=== PATIENT | female | born 1960 | race Caucasian/White ===

== ENCOUNTER 2018-08-10 10:27 | Emergency (ER) | payer MEDICAID, OTHER ==
[~2018-08-10] VITALS: Ht 162.6 cm; Wt 43.2 kg
[2018-08-10 10:29] VITALS: Ht 162.6 cm; Wt 43.2 kg
[2018-08-10] MEDS ORDERED: AMLO5TAB4 PO (11:28)
[2018-08-10] MEDS ORDERED: LEVO75TA65 PO (11:28)
[2018-08-10] MEDS ORDERED: PANT40TA3 PO (11:29)
[2018-08-10] MEDS ORDERED: NEPH PO (11:29)
[2018-08-10] MEDS ORDERED: AMIO200T4 PO (11:29)
[2018-08-10] MEDS ORDERED: FOLI-49 PO (11:30)
[2018-08-10] MEDS ORDERED: RANI150T5 PO (11:30)
[2018-08-10] MEDS ORDERED: AZIT250T13 PO (11:31)
--- NOTE | 2018-08-10 13:13 | ERD ---
ER Documentation Chief Complaint Chief Complaint SENT BY URGENT CARE FOR LOW BP. BP WNL. NEEDS REPEAT CT ABD HPI Patient is a 58-year-old female with dialysis who presents for a repeat CT scan. The patient was brought in by ambulance. The patient went to an urgent care today and she had a abnormal CT scan in April 2018. Therefore she was sent to the ER for repeat CT scan to ensure resolution. She has no complaints other than feeling tired diffusely. She has no fevers. She did have dialysis yesterday. Upon review of old medical records this is the patient's first visit to the emergency department. She said her primary doctor is Dr. Moss. ROS All systems reviewed and are negative except as per history of present illness. Medications Home Meds Reported Medications Azithromycin* (Azithromycin*) 250 Mg Tablet, 250 MG PO DAILY, #4 TAB STARTED 08-08-18 FOR 5 DAYS 08/10/18 Ranitidine Hcl* (Ranitidine Hcl*) 150 Mg Tablet, 150 MG PO HS, #30 TAB 08/10/18 Folic Acid* (Folic Acid*) 1 Mg Tablet, 1 MG PO DAILY, TAB 08/10/18 Amiodarone Hcl* (Amiodarone Hcl*) 200 Mg Tablet, 200 MG PO BID, #60 TAB 08/10/18 Pantoprazole* (Protonix*) 40 Mg Tablet.dr, 40 MG PO DAILY, TAB 08/10/18 Multivit/Ca Carb/B Cmplx/Fa* (Iram-Xiomara*) 1 Tab Tab, 1 TAB PO DAILY, TAB 08/10/18 Amlodipine Besylate* (Norvasc*) 5 Mg Tablet, 5 MG PO DAILY, TAB 08/10/18 Levothyroxine Sodium* (Levoxyl*) 75 Mcg Tablet, 75 MCG PO BEFORE BREAKFAST, #30 TAB 08/10/18 Allergies Allergies: Coded Allergies: Penicillins (Verified Allergy, Unknown, 08/10/18) tazobactam (Verified Allergy, Unknown, 08/10/18) vancomycin (Verified Allergy, Unknown, 08/10/18) PMhx/Soc Positive for dialysis FmHx Family History: diabetes Physical Exam Vitals Vital Signs Date Temp Pulse Resp B/P (MAP) Pulse Ox O2 O2 Flow FiO2 Time Delivery Rate 08/10/18 97.1 91 16 99/58 (72) 97 10:29 Physical Exam Const: No acute distress Head: Atraumatic Eyes: Normal Conjunctiva ENT: Normal External Ears, Nose and Mouth. Neck: Full range of motion. No meningismus. Resp: Clear to auscultation bilaterally Cardio: Regular rate and rhythm, no murmurs Abd: Soft, non tender, non distended. Normal bowel sounds Skin: No petechiae or rashes Back: No midline or flank tenderness Ext: No cyanosis, or edema Neur: Awake and alert Psych: Normal Mood and Affect Result Diagram: 08/10/18 1120 08/10/18 1120 Results 24 hrs Laboratory Tests Test 08/10/18 11:20 White Blood Count 4.4 10^3/ul Red Blood Count 3.18 10^6/ul Hemoglobin 11.2 g/dl Hematocrit 34.9 % Mean Corpuscular Volume 109.7 fl Mean Corpuscular Hemoglobin 35.2 pg Mean Corpuscular Hemoglobin Concent 32.1 g/dl Red Cell Distribution Width 18.3 % Platelet Count 66 10^3/UL Mean Platelet Volume 12.7 fl Immature Granulocytes % 0.200 % Neutrophils % 69.2 % Lymphocytes % 22.7 % Monocytes % 4.3 % Eosinophils % 2.0 % Basophils % 1.6 % Nucleated Red Blood Cells % 0.0 /100WBC Immature Granulocytes # 0.010 10^3/ul Neutrophils # 3.1 10^3/ul Lymphocytes # 1.0 10^3/ul Monocytes # 0.2 10^3/ul Eosinophils # 0.1 10^3/ul Basophils # 0.1 10^3/ul Nucleated Red Blood Cells # 0.0 10^3/ul Sodium Level 139 mmol/L Potassium Level 4.7 mmol/L Chloride Level 101 mmol/L Carbon Dioxide Level 26 mmol/L Anion Gap 12 Blood Urea Nitrogen 21 mg/dl Creatinine 3.53 mg/dl Est Glomerular Filtrat Rate mL/min 13 mL/min Glucose Level 98 mg/dl Calcium Level 9.8 mg/dl Total Bilirubin 1.0 mg/dl Direct Bilirubin 0.00 mg/dl Indirect Bilirubin 1.0 mg/dl Aspartate Amino Transf (AST/SGOT) 14 IU/L Alanine Aminotransferase (ALT/SGPT) 11 IU/L Alkaline Phosphatase 100 IU/L Total Protein 6.5 g/dl Albumin 3.3 g/dl Globulin 3.20 g/dl Albumin/Globulin Ratio 1.03 Lipase 37 U/L [facility] EKG read by me: Rate/Rhythm: Regular rate and rhythm at a normal rate Intervals: Normal Impression: No evidence of ischemia or arrhythmia Patient is a 58-year-old female who presents with diffuse weakness and the need for a repeat CT scan. Laboratory studies were consistent with somebody on dialysis. Her potassium is normal. CT scan of the chest and abdomen showed resolution of the CT chest finding from April 2018. CT abdomen pelvis shows ascites and chronic changes which have been seen before. The patient was provided with copies of laboratory studies and CT scan prior to discharge. Departure Diagnosis: Primary Impression: Anemia Anemia type: unspecified type Qualified Codes: D64.9 - Anemia, unspecified Additional Impression: Chronic renal failure Chronic kidney disease stage: unspecified stage Qualified Codes: N18.9 - Chronic kidney disease, unspecified Condition: Fair Patient Instructions: Anemia, Renal Insufficiency Additional Instructions: Llame al doctor nomtrini moreland (Referral Sources) MAANA y meño maribeth YUMIKO PARA DENTRO DE MARIBETH SEMANA. Dgale a la secretaria que nosotros le instruimos hacer esta yumiko.Avise o llame si harper condicin se empeora antes de la yumiko. MELYSSA SWAN MD Aug 10, 2018 13:13
[2018-08-10 13:45] VITALS: BP 110/80; PULSE 96; RESP 20
== END 2018-08-10 13:58 | disposition home or self-care (01) ==
LOC: E/R 10:27
DX: D64.9 Anemia, unspecified (principal); R40.2142 Coma scale, eyes open, spontaneous, at arrival to emergency department; R40.2362 Coma scale, best motor response, obeys commands, at arrival to emergency department; R40.2252 Coma scale, best verbal response, oriented, at arrival to emergency department; N18.9 Chronic kidney disease, unspecified; Z99.2 Dependence on renal dialysis
CPT/HCPCS: 36415; 71250; 74176; 80053; 83690; 85025; Z7502

== ENCOUNTER 2018-10-18 23:56 | Inpatient (IN) | payer OTHER ==
[~2018-10-18] VITALS: Ht 154.9 cm; Wt 38.1 kg
[~2018-10-18 23:56] MED LIST: AMIO200T4 PO; AMLO5TAB4 PO; AZIT250T13 PO; FOLI-49 PO; LEVO75TA65 PO; NEPH PO; PANT40TA3 PO; RANI150T5 PO
[2018-10-19] VITALS (23 sets, daily range): BP systolic 85–128; BP diastolic 50–74; PULSE 74–98; RESP 16–20; BMI 19.7
[2018-10-19] MEDS ORDERED: AZTREONAM 1 GM/NS (PMX) 50 ML IVPB STA (01:03)
[2018-10-19] MEDS ORDERED: SODIUM CHLORIDE 0.9% 1L BAG IV* STA (01:03)
[2018-10-19] MEDS ORDERED: LEVOFLOXACIN 750MG/D5W (PMX) 150 ML IVPB ONE (01:30)
[2018-10-19] MEDS ORDERED: BISACODYL (EC) 5 MG TAB PO PRN (03:00)
[2018-10-19] MEDS ORDERED: ONDANSETRON 4 MG INJ IV PRN (03:00)
[2018-10-19] MEDS ORDERED: NACL 0.9% 3 ML SYG IV SCH (03:00)
[2018-10-19] MEDS ORDERED: ACETAMINOPHEN 325 MG TAB PO PRN (03:00)
[2018-10-19] MEDS ORDERED: DOCUSATE SODIUM 100 MG CAP PO PRN (03:00)
--- NOTE | 2018-10-19 04:34 | ERD ---
ER Documentation Chief Complaint Chief Complaint CECILIA NOLAND Is a very pleasant 58-year-old female brought in by family for shortness of breath. She denied breath or short of breath over the past 2 days. No nausea no vomiting no fevers no chills. Patient has history of end-stage renal disease on dialysis on the waiting list for kidney transplant. Denies cough, constitutional symptoms, dysuria as the patient makes no urine baseline ROS All systems reviewed and are negative except as per history of present illness. Medications Home Meds Reported Medications Azithromycin* (Azithromycin*) 250 Mg Tablet, 250 MG PO DAILY, #4 TAB STARTED 08-08-18 FOR 5 DAYS 08/10/18 Ranitidine Hcl* (Ranitidine Hcl*) 150 Mg Tablet, 150 MG PO HS, #30 TAB 08/10/18 Folic Acid* (Folic Acid*) 1 Mg Tablet, 1 MG PO DAILY, TAB 08/10/18 Amiodarone Hcl* (Amiodarone Hcl*) 200 Mg Tablet, 200 MG PO BID, #60 TAB 08/10/18 Pantoprazole* (Protonix*) 40 Mg Tablet.dr, 40 MG PO DAILY, TAB 08/10/18 Multivit/Ca Carb/B Cmplx/Fa* (Iram-Xiomara*) 1 Tab Tab, 1 TAB PO DAILY, TAB 08/10/18 Amlodipine Besylate* (Norvasc*) 5 Mg Tablet, 5 MG PO DAILY, TAB 08/10/18 Levothyroxine Sodium* (Levoxyl*) 75 Mcg Tablet, 75 MCG PO BEFORE BREAKFAST, #30 TAB 08/10/18 Allergies Allergies: Coded Allergies: Penicillins (Verified Allergy, Unknown, 08/10/18) tazobactam (Verified Allergy, Unknown, 08/10/18) vancomycin (Verified Allergy, Unknown, 08/10/18) PMhx/Soc History of Surgery: Yes (PACEMAKER PLACEMENT, BUE FISTULAS) Anesthesia Reaction: No Hx Neurological Disorder: No Hx Respiratory Disorders: No Hx Cardiac Disorders: Yes (HTN) Hx Psychiatric Problems: No Hx Miscellaneous Medical Probl: Yes (DM, ESRD) Hx Alcohol Use: No Hx Substance Use: No Hx Tobacco Use: No Smoking Status: Never smoker Physical Exam Vitals Vital Signs Date Temp Pulse Resp B/P (MAP) Pulse Ox O2 O2 Flow FiO2 Time Delivery Rate 10/19/18 98 24 99/66 (77) Nasal 4.0 02:20 Cannula 10/19/18 Nasal 3 02:05 Cannula 10/19/18 100 15.0 100 01:15 10/19/18 102 18 101/64 96 Nasal 3.0 00:20 (76) Cannula 10/19/18 96.4 108 26 91/57 (68) 95 00:13 Physical Exam Const: No acute distress Head: Atraumatic Eyes: Normal Conjunctiva ENT: Normal External Ears, Nose and Mouth. Neck: Full range of motion. No meningismus. Resp: Clear to auscultation bilaterally Cardio: Regular rate and rhythm, no murmurs Abd: Soft, non tender, non distended. Normal bowel sounds Skin: No petechiae or rashes Back: No midline or flank tenderness Ext: No cyanosis, or edema Neur: Awake and alert Psych: Normal Mood and Affect Result Diagram: 10/19/18 0057 10/19/1856 Results 24 hrs Laboratory Tests Test 10/19/18 00:57 10/19/18 01:02 10/19/18 01:34 10/19/18 03:41 White Blood 4.7 10^3/ul Count Red Blood Count 2.11 10^6/ul Hemoglobin 7.4 g/dl Hematocrit 22.5 % Mean Corpuscular 106.6 fl Volume Mean Corpuscular 35.1 pg Hemoglobin Mean Corpuscular 32.9 g/dl Hemoglobin Anh nt Red Cell 16.2 % Distribution Width Platelet Count 25 10^3/UL Mean Platelet fl Volume Immature 0.400 % Granulocytes % Neutrophils % % Segmented 76 % Neutrophils % (Manual) Band Neutrophils 9 % % (Manual) Lymphocytes % % Lymphocytes % 11 % (Manual) Monocytes % % Monocytes % 3 % (Manual) Eosinophils % % Eosinophils % 1 % (Manual) Basophils % % Nucleated Red 0.0 /100WBC Blood Cells % Immature 0.020 10^3/ul Granulocytes # Neutrophils # 10^3/ul Neutrophils # 3.6 10^3/ul (Manual) Band Neutrophils 0.4 10^3/ul # Lymphocytes 0.5 10^3/ul (Manual) Lymphocytes # 10^3/ul Monocytes # 10^3/ul Monocytes # 0.1 10^3/ul (Manual) Eosinophils # 10^3/ul Basophils # 10^3/ul Nucleated Red 10^3/ul Blood Cells # Platelet SIG DECREASED Estimate Giant Platelets 1 % Polychromasia 2+ Hypochromasia 1+ Poikilocytosis 1+ Anisocytosis 2+ Macrocytosis 2+ Prothrombin Time 16.2 Sec Prothrombin Time 1.3 Ratio INR 1.29 International Normalized Ratio Activated 40.3 Sec Partial Thrombop last Time Sodium Level 137 mmol/L Potassium Level 5.1 mmol/L Chloride Level 98 mmol/L Carbon Dioxide 27 mmol/L Level Anion Gap 12 Blood Urea 42 mg/dl Nitrogen Creatinine 4.30 mg/dl Est Glomerular 11 mL/min Filtrat Rate mL/min Glucose Level 87 mg/dl Calcium Level 9.8 mg/dl Total Bilirubin 0.3 mg/dl Direct Bilirubin 0.00 mg/dl Indirect 0.3 mg/dl Bilirubin Aspartate Amino 19 IU/L Transf (AST/SGOT ) Alanine 19 IU/L Aminotransferase (ALT/SGPT) Alkaline 93 IU/L Phosphatase Troponin I < 0.012 ng/ml B-Type 8040 PG/ML Natriuretic Peptide Total Protein 6.3 g/dl Albumin 3.0 g/dl Globulin 3.30 g/dl Albumin/Globulin 0.90 Ratio Hepatitis B Pending Surface Antigen Hepatitis B POSITIVE Surface Antibody Hepatitis B Core NEGATIVE Total Antibody Hepatitis C NEGATIVE Antibody POC Venous 3.3 mmol/L 2.5 mmol/L Lactate Blood Gas Blood arterial Specimen Source Arterial Blood 10/19/2018 1:30:4 Date Drawn 1 AM Arterial Blood 7.383 pH (Temp corrected) Arterial Blood 43.5 mmhg pCO2 (Temp correct) Arterial Blood 77.8 mmHG pO2 (Temp corrected) Arterial Blood 25.3 mmol/L HCO3 Arterial Blood 0.2 mmol/L Base Excess Arterial Blood 93.2 mmHG Oxygen Saturatio n Morgan Test N/A Arterial Blood Right Brachial Gas Puncture Site Arterial 0.1 % Blood Carboxyhem oglobin Arterial Blood 0.4 % Methemoglobin Blood Gas A-a O2 70.5 mmHg Differential Oxyhemoglobin 92.7 % Percent Blood Gas 37.0 C Temperature Blood Gas NASAL CANNULA Modality FiO2 28.0 % Blood Gas MA Notified Whom Blood Gas 10/19/2018 1:41:2 Notified Time 4 AM Current Medications Medications Dose Sig/Rommel Start Time Status Last (Trade) Ordered Route PRN Stop Time Admin Dose Reason Admin Sodium 1,350 ml BOLUS OVER 2 10/19/18 DC 10/19/18 Chloride HOURS STAT 01:03 01:01 (NS) IV* 10/19/18 01:19 150 ml @ ONCE ONCE 10/19/18 DC 10/19/18 Levofloxacin/ 100 mls/hr IVPB 01:30 02:44 Dextrose 10/19/18 02:59 Aztreonam 50 ml @ ONCE STAT 10/19/18 DC 10/19/18 100 mls/hr IVPB 01:03 01:58 10/19/18 01:32 IV Flush 3 ml PER 10/19/18 (NS 3 ml) PROTOCOL IV 03:00 Ondansetron 4 mg Q6H PRN 10/19/18 HCl (Zofran IV 03:00 Inj) NAUSEA/VOMITI NG 650 mg Q6H PRN 10/19/18 Acetaminophen PO .PAIN 1-3 03:00 (Tylenol OR TEMP Tab) Docusate 100 mg Q12H PRN 10/19/18 Sodium PO 03:00 (Colace) .CONSTIPATION Bisacodyl 5 mg DAILY PRN 10/19/18 (Dulcolax) PO 03:00 .CONSTIPATION Procedures/MDM Emergency department course: Patient seen about by triage. Placed in bed from the evaluation. Code sepsis called, however there was a delay as the patient was difficult access for blood work and intravenous access. Bundle started within the first 65 minutes. Patient's infectious symptoms have not stabilized and the patient is at risk of rapid decompensation. The patient will be admitted for careful hydration, antibiotic therapy, and infectious source control. Severe Sepsis Assessment: Infectious Source: Unknown End organ damage indicated by: [Lactate > 2.0 mmol/L Hypotension( SBP < 90 or >40 mmHG drop or MAP < 65) Acute Resp Failure (sat < 92% w/o oxygen) Severe Sepsis Managment: Blood Cultures X 2 before broad spectrum antibiotics initiated within 3 hours of recognition. 30 ml/kg NS bolus Completed Initial Lactate: [3.2 Repeat Lactate pending Critical Care: Time: 45 minutes, independent of separately billable procedural time Treatments/Evaluations: Emergent fluid management, while maintaining close respiratory support. Immediate broad spectrum antibiotic therapy. Simultaneous assessment for possible sources in order to direct therapy. Consideration for invasive and chemical support to prevent respiratory or cardiac collapse. Septic Shock Assessment (1 hour post 30 ml/kg fluid bolus): Hypotension (SBP < 90 or 40 mmHg drop, MAP < 65): [No] Lactic acid > 4.0 [No] Perfusion Reassessment for Septic Shock: 97.4, pulse of 77, respiratory rate of 18, blood pressure 94/63 Heart Exam: [Tachycardic] Lung Exam: [No Crackles] Capillary Refill: [Delayed] Peripheral Pulses: [Radially present] Skin: [Mottled, pale] Accepting Care Team: Current data and ongoing care discussed. Time: 2:50 AM Primary Provider: Dr. Byrnes] Consulting: [XOXOXO] Outstanding Data: none EKG: Rate/Rhythm: [Normal Sinus Rhythm] QRS, ST, T-waves: [No changes consistent w/ acute ischemia] Impression: [No evidence of ischemia or arrhythmia] Chest X-ray 1V Interpreted by me: Soft Tissue: No acute abnormalities Bones: No acute abnormalities Mediastinum/Cardiac Silhouette/Lungs: [No acute abnormalities] Departure Diagnosis: Primary Impression: Sepsis Sepsis type: sepsis due to unspecified organism Qualified Codes: A41.9 - Sepsis, unspecified organism Condition: Serious MANDY CHISHOLM Oct 19, 2018 04:34
[2018-10-19] MEDS ORDERED: SOD CHLORIDE 0.9% 0 ML IV ONE (06:22)
[2018-10-19] MEDS ORDERED: ALBUMIN HUMAN 25% 100 ML IV ONE ×3 (07:00→17:00)
[2018-10-19] MEDS ORDERED: ALBUMIN HUMAN 25% 50 ML INJ IV SCH (07:00)
--- NOTE | 2018-10-19 07:33 | HP ---
Date/Time of Note Date/Time of Note DATE: 10/19/18 TIME: 07:33 Assessment/Plan VTE Prophylaxis SCD applied (from Nsg): Yes Pharmacological prophylaxis: NA/contraindicated Pharm contraindication: low risk/ambulating Lines/Catheters IV Catheter Type (from Nrsg): Saline Lock Assessment/Plan Hospital Course This is a 58-year-old female being admitted to the telemetry floor for: #1 Severe sepsis: Suspect possible underlying pneumonia, hypoperfusion from anemia versus other. Broad-spectrum antibiotics of aztreonam. Trend lactic acid levels initial was 3.5. Will give albumin as patient is already appear to be volume overloaded. Will consult infectious disease . Cultures pending #2 Generalized anasarca: Secondary likely to underlying volume overload from end-stage renal disease and possible liver disease. Will obtain a CT of the abdomen pelvis to further evaluate given that she does have decreased appetite as well as tender abdomen. Will also evaluate for any underlying GI infection. #3 symptomatic anemia: No signs of any overt GI bleeding. Possibly secondary to end-stage renal disease however will also check a stool occult blood. No signs of any overt bleeding at the current time. Patient at the current time wishes to not receive a blood transfusion unless absolutely needed given that she was told that if she received blood and may drop her down on the kidney transplant list. Consider hematology consultation if indicated #4 end-stage renal disease: Patient is currently on hemodialysis Friday was a Friday. She also was previously on PD. Currently on the kidney transplant list at [facility] according to her and the family. Will consult nephrology for further guidance. Will avoid NSAIDs and nephrotoxic agents. Renally dose antibiotics #5 thrombocytopenia: Etiology unknown at the current time, possibly secondary to sepsis. Will avoid any anticoagulants at the current time. We will also check hepatitis panel. Will check HIV. Transfuse if indicated. #6 elevated BNP: We will check echocardiogram, likely related to end-stage renal disease the patient does have pulmonary congestion. Will be consulting nephrology for dialysis. #7 hypertension: Holding current meds at the current time given patient's sepsis DVT GI prophylaxis: SCDs, no GI prophylaxis indicated Further treatment strategy will be implemented as per the clinical course. ++ Patient is agreeable to obtaining blood if she needs it according to her. She understands risks and benefits. Result Diagram: 10/19/18 0552 10/19/18 0057 Results 24hrs Laboratory Tests Test 10/19/18 00:57 10/19/18 01:02 10/19/18 01:34 10/19/18 03:41 White Blood 4.7 L Count Red Blood Count 2.11 #L Hemoglobin 7.4 #L Hematocrit 22.5 #L Mean Corpuscular 106.6 H Volume Mean Corpuscular 35.1 H Hemoglobin Mean Corpuscular 32.9 Hemoglobin Anh nt Red Cell 16.2 H Distribution Width Platelet Count 25 #*L Mean Platelet Volume Immature 0.400 Granulocytes % Neutrophils % Segmented 76 Neutrophils % (Manual) Band Neutrophils 9 H % (Manual) Lymphocytes % Lymphocytes % 11 L (Manual) Monocytes % Monocytes % 3 (Manual) Eosinophils % Eosinophils % 1 (Manual) Basophils % Nucleated Red 0.0 Blood Cells % Immature 0.020 Granulocytes # Neutrophils # Neutrophils # 3.6 (Manual) Band Neutrophils 0.4 # Lymphocytes 0.5 L (Manual) Lymphocytes # Monocytes # Monocytes # 0.1 L (Manual) Eosinophils # Basophils # Nucleated Red Blood Cells # Platelet SIG DECREASED Estimate Giant Platelets 1 H Polychromasia 2+ Hypochromasia 1+ Poikilocytosis 1+ Anisocytosis 2+ Macrocytosis 2+ Prothrombin Time 16.2 H Prothrombin Time 1.3 Ratio INR 1.29 International Normalized Ratio Activated 40.3 H Partial Thrombop last Time Sodium Level 137 Potassium Level 5.1 Chloride Level 98 Carbon Dioxide 27 Level Anion Gap 12 Blood Urea 42 H Nitrogen Creatinine 4.30 H Est Glomerular 11 L Filtrat Rate mL/min Glucose Level 87 Calcium Level 9.8 Total Bilirubin 0.3 Direct Bilirubin 0.00 Indirect 0.3 Bilirubin Aspartate Amino 19 Transf (AST/SGOT ) Alanine 19 Aminotransferase (ALT/SGPT) Alkaline 93 Phosphatase Troponin I < 0.012 B-Type 8040 H Natriuretic Peptide Total Protein 6.3 Albumin 3.0 L Globulin 3.30 H Albumin/Globulin 0.90 Ratio Hepatitis B NEGATIVE Surface Antigen Hepatitis B POSITIVE H Surface Antibody Hepatitis B Core NEGATIVE Total Antibody Hepatitis C NEGATIVE Antibody POC Venous 3.3 *H 2.5 *H Lactate Blood Gas Blood arterial Specimen Source Arterial Blood 10/19/2018 1:30: Date Drawn 41 AM Arterial Blood 7.383 pH (Temp corrected) Arterial Blood 43.5 pCO2 (Temp correct) Arterial Blood 77.8 L pO2 (Temp corrected) Arterial Blood 25.3 HCO3 Arterial Blood 0.2 Base Excess Arterial Blood 93.2 L Oxygen Saturatio n Morgan Test N/A Arterial Blood Right Brachial Gas Puncture Site Arterial 0.1 Blood Carboxyhem oglobin Arterial Blood 0.4 Methemoglobin Blood Gas A-a O2 70.5 H Differential Oxyhemoglobin 92.7 L Percent Blood Gas 37.0 Temperature Blood Gas NASAL CANNULA Modality FiO2 28.0 Blood Gas HI Notified Whom Blood Gas 10/19/2018 1:41: Notified Time 24 AM Test 10/19/18 05:52 White Blood 3.5 #L Count Red Blood Count 1.78 L Hemoglobin 6.2 *L Hematocrit 19.0 L Mean Corpuscular 106.7 H Volume Mean Corpuscular 34.8 H Hemoglobin Mean Corpuscular 32.6 Hemoglobin Anh nt Red Cell 16.3 H Distribution Width Platelet Count 14 #*L Mean Platelet Volume Immature 0.300 Granulocytes % Neutrophils % Lymphocytes % Monocytes % Eosinophils % Basophils % Nucleated Red 0.0 Blood Cells % Immature 0.010 Granulocytes # Neutrophils # Lymphocytes # Monocytes # Eosinophils # Basophils # Nucleated Red Blood Cells # Pathologist YES Review (Hematolo gy) Phosphorus Level 5.7 H HPI/ROS Admit Date/Time Admit Date/Time Hx of Present Illness Chief complaint: Shortness of breath times 1 day, decreased appetite times 4 days Patient is a poor historian along with her . This is a 58-year-old female who presented to the emergency room complaining of shortness of breath times 1 day. She also was reported being dizzy for the last few days. She states that she has had a very poor appetite over the last 4 days approximately. She normally goes to [facility]. She has looked more pale according to her . She is apparently on the kidney transplant list at [facility]. She does not want any blood transfusions as she was told that if she got blood transfusion she would be bumped down on the kidney transplant list. she has end-stage renal disease and is on hemodialysis Friday. She also has a PD catheter which has not been used. She has had left AV fistula surgeries on her left lower extremity. She does report that her son was sick at home. She denies any fevers. Patient is not entirely sure of all of her medical issues, we will request from [facility] records. allergies: Penicillin, tazobactam, vancomycin Medications: See OCT ROS Const: As per HPI Eyes : No pain discharge or redness or change in visual acuity ENT: No pain, sore throat, congestion, congestion, dysphagia or discharge Respiratory: As per HPI Cardiovascular: No chest pain, palpitation, PND, or edema GI : no change in appetite, abdominal pain, nausea, vomiting, diarrhea, constip ation, or change in the color his stool Genitourinary: No dysuria, hematuria, flank pain , discharge or CVA tenderness Musculoskeletal: No joint pain, back pain, neck pain, restricted range of motion in neck or joints Skin: No rash, bruising or hives Neuro: No headache, dizziness, syncope, seizure, focal weakness Endocrine: No polyuria, polydipsia, temperature intolerance Psych: No hallucination, depression, anxiety or suicidal ideation PMH/Family/Social Past Medical History End-stage renal disease on hemodialysis, hypertension, Medications Current Medications IV Flush (NS 3 ml) 3 ml PER PROTOCOL IV ; Start 10/19/18 at 03:00 Ondansetron HCl (Zofran Inj) 4 mg Q6H PRN IV NAUSEA/VOMITING; Start 10/19/18 at 03:00 Acetaminophen (Tylenol Tab) 650 mg Q6H PRN PO .PAIN 1-3 OR TEMP; Start 10/19/18 at 03:00 Docusate Sodium (Colace) 100 mg Q12H PRN PO .CONSTIPATION; Start 10/19/18 at 03:00 Bisacodyl (Dulcolax) 5 mg DAILY PRN PO .CONSTIPATION; Start 10/19/18 at 03:00 Aztreonam 0.5 gm/ Sodium Chloride 50 ml @ 100 mls/hr Q12 IVPB ; Start 10/19/18 at 11:00 Albumin Human 100 ml @ 100 mls/hr ONCE ONCE IV ; Start 10/19/18 at 07:00; Stop 10/19/18 at 07:59 Coded Allergies: Penicillins (Verified Allergy, Unknown, 08/10/18) tazobactam (Verified Allergy, Unknown, 08/10/18) vancomycin (Verified Allergy, Unknown, 08/10/18) Past Surgical History PD catheter insertion, creation of left lower extremity AV fistula, right femor al permacath placement Family History Significant Family History: no pertinent family hx Social History Alcohol Use: none Smoking Status: Never smoker Drug Use: none Exam/Review of Systems Vital Signs Vitals Vital Signs Date Temp Pulse Resp B/P (MAP) Pulse Ox O2 O2 Flow FiO2 Time Delivery Rate 10/19/18 97.8 92 20 107/66 97 Nasal 4.0 07:26 (80) Cannula 10/19/18 100 01:15 Exam Exam General: Patient is a very pale, lethargic and frail appearing female HEENT: Atraumatic, normocephalic. The pupils are equal, round and reactive. Extraocular motor are intact, poor dentition Neck: Supple with full range of motion. No rigidity or meningismus Chest: Nontender Lungs: Clear to auscultation bilaterally no crackles rales or wheezing Heart: Normal S1-S2, Regular rhythm and rate. No murmur, S3, or S4 Abdomen: Distended, ascites, PD catheter, tender to palpation Extremities: Normal to inspection, no edema no cyanosis Neurologic: Normal mental status, speech normal, cranial nerves II through XII are intact, motor and sensory are intact, Skin: right lower extremity permacath, left lower extremity AV fistula creation Additional Comments PROCEDURE: XR Chest. CLINICAL INDICATION: Dyspnea TECHNIQUE: Single frontal chest x-ray. COMPARISON: 10/04/2014 FINDINGS: There is cardiomegaly with mild pulmonary vascular congestion. Left-sided dual chamber pacemaker is in place. There is aortic atherosclerosis. There is small to moderate left pleural effusion . Right basilar atelectasis versus infiltrates are present. There is no pneumothorax. The osseous structures are intact. IMPRESSION: 1. Cardiomegaly with mild pulmonary vascular congestion. 2. Small to moderate left-sided pleural effusion. 3. Right basilar parenchymal opacity. 4. Left-sided dual chamber pacemaker. 5. Aortic atherosclerosis. RPTAT: HHO .Cali Ramirez MD, MD Date Time Electronically viewed and signed by .Cali Ramirez MD, on 10/19/2018 01:45 .O/ CC: MANDY CHISHOLM,HARI Oct 19, 2018 07:33
--- NOTE | 2018-10-19 08:21 | CONS ---
Assessment/Plan Assessment/Plan Hospital Course (Demo Recall) 1) acute SOB this is likely multifactorial she is anemic, her son has a cough doubt she has a bacterial infection but can not rule this out this time CT abd/pelv shows compressive atelectasis from her pleural effusions but a pnm could be hiding I will order respiratory cx get nasal PCR and nasal MRSA continue with levaquin and add flagyl d/c aztreanom check procalcitonin in a.m. pt to get tx today 2) anemia of chronic disease blood tx has been ordered 3) ESRD 4) loculated ascitic fluid from prior peritoneal dialysis if pt develops fevers or elevated WBC may need to due paracentesis to r/o infection 5) CAD with pacer 6)HTN Consultation Date/Type/Reason Admit Date/Time Date of Consultation: Oct 19, 2018 Type of Consult ID Date/Time of Note DATE: 10/19/18 TIME: 08:11 Hx of Present Illness pt admitted due to SOB for one day she denies F, C, NS she had some foamy phlegm with cough for one day prior to her SOB no muscle aches, joint pains her son has a cough too she had periodic V which is not new she gets periodic paracentesis whenever her abd gets really hard no diarrhea she got a recent new fistula to L leg which she had to take some antibiotic with dialysis due to cellulitis Past Medical History HTN, DM, ESRD Home Meds Reported Medications Azithromycin* (Azithromycin*) 250 Mg Tablet, 250 MG PO DAILY, #4 TAB STARTED 08-08-18 FOR 5 DAYS 08/10/18 Ranitidine Hcl* (Ranitidine Hcl*) 150 Mg Tablet, 150 MG PO HS, #30 TAB 08/10/18 Folic Acid* (Folic Acid*) 1 Mg Tablet, 1 MG PO DAILY, TAB 08/10/18 Amiodarone Hcl* (Amiodarone Hcl*) 200 Mg Tablet, 200 MG PO BID, #60 TAB 08/10/18 Pantoprazole* (Protonix*) 40 Mg Tablet.dr, 40 MG PO DAILY, TAB 08/10/18 Multivit/Ca Carb/B Cmplx/Fa* (Iram-Xiomara*) 1 Tab Tab, 1 TAB PO DAILY, TAB 08/10/18 Amlodipine Besylate* (Norvasc*) 5 Mg Tablet, 5 MG PO DAILY, TAB 08/10/18 Levothyroxine Sodium* (Levoxyl*) 75 Mcg Tablet, 75 MCG PO BEFORE BREAKFAST, #30 TAB 08/10/18 Medications Current Medications IV Flush (NS 3 ml) 3 ml PER PROTOCOL IV ; Start 10/19/18 at 03:00 Ondansetron HCl (Zofran Inj) 4 mg Q6H PRN IV NAUSEA/VOMITING; Start 10/19/18 at 03:00 Acetaminophen (Tylenol Tab) 650 mg Q6H PRN PO .PAIN 1-3 OR TEMP; Start 10/19/18 at 03:00 Docusate Sodium (Colace) 100 mg Q12H PRN PO .CONSTIPATION; Start 10/19/18 at 03:00 Bisacodyl (Dulcolax) 5 mg DAILY PRN PO .CONSTIPATION; Start 10/19/18 at 03:00 Aztreonam 0.5 gm/ Sodium Chloride 50 ml @ 100 mls/hr Q12 IVPB ; Start 10/19/18 at 11:00 Allergies: Coded Allergies: Penicillins (Verified Allergy, Unknown, 08/10/18) tazobactam (Verified Allergy, Unknown, 08/10/18) vancomycin (Verified Allergy, Unknown, 08/10/18) Past Surgical History pacer, fistula to both legs, peritoneal catheter Social History Smoking Status: Never smoker Exam/Review of Systems Exam Vitals Vital Signs Date Temp Pulse Resp B/P (MAP) Pulse Ox O2 O2 Flow FiO2 Time Delivery Rate 10/19/18 97.8 92 20 107/66 97 Nasal 4.0 07:26 (80) Cannula 10/19/18 100 01:15 Constitutional: alert Eyes: nl sclera ENMT: mucosa pink and moist Respiratory: other (clear on R, crckles at L base) Cardiovascular: regular rate and rhythm, systolic murmur Gastrointestinal: distended, firm, other (umbilical hernia) Extremities: other (L thigh firmness of it, prior demarcation lines show no redness within them) Results Result Diagram: 10/19/18 0552 10/19/18 0057 Results 24hrs Laboratory Tests Test 10/19/18 00:57 10/19/18 01:02 10/19/18 01:34 10/19/18 03:41 White Blood 4.7 L Count Red Blood Count 2.11 #L Hemoglobin 7.4 #L Hematocrit 22.5 #L Mean Corpuscular 106.6 H Volume Mean Corpuscular 35.1 H Hemoglobin Mean Corpuscular 32.9 Hemoglobin Anh nt Red Cell 16.2 H Distribution Width Platelet Count 25 #*L Mean Platelet Volume Immature 0.400 Granulocytes % Neutrophils % Segmented 76 Neutrophils % (Manual) Band Neutrophils 9 H % (Manual) Lymphocytes % Lymphocytes % 11 L (Manual) Monocytes % Monocytes % 3 (Manual) Eosinophils % Eosinophils % 1 (Manual) Basophils % Nucleated Red 0.0 Blood Cells % Immature 0.020 Granulocytes # Neutrophils # Neutrophils # 3.6 (Manual) Band Neutrophils 0.4 # Lymphocytes 0.5 L (Manual) Lymphocytes # Monocytes # Monocytes # 0.1 L (Manual) Eosinophils # Basophils # Nucleated Red Blood Cells # Platelet SIG DECREASED Estimate Giant Platelets 1 H Polychromasia 2+ Hypochromasia 1+ Poikilocytosis 1+ Anisocytosis 2+ Macrocytosis 2+ Prothrombin Time 16.2 H Prothrombin Time 1.3 Ratio INR 1.29 International Normalized Ratio Activated 40.3 H Partial Thrombop last Time Sodium Level 137 Potassium Level 5.1 Chloride Level 98 Carbon Dioxide 27 Level Anion Gap 12 Blood Urea 42 H Nitrogen Creatinine 4.30 H Est Glomerular 11 L Filtrat Rate mL/min Glucose Level 87 Calcium Level 9.8 Total Bilirubin 0.3 Direct Bilirubin 0.00 Indirect 0.3 Bilirubin Aspartate Amino 19 Transf (AST/SGOT ) Alanine 19 Aminotransferase (ALT/SGPT) Alkaline 93 Phosphatase Troponin I < 0.012 B-Type 8040 H Natriuretic Peptide Total Protein 6.3 Albumin 3.0 L Globulin 3.30 H Albumin/Globulin 0.90 Ratio Hepatitis B NEGATIVE Surface Antigen Hepatitis B POSITIVE H Surface Antibody Hepatitis B Core NEGATIVE Total Antibody Hepatitis C NEGATIVE Antibody POC Venous 3.3 *H 2.5 *H Lactate Blood Gas Blood arterial Specimen Source Arterial Blood 10/19/2018 1:30: Date Drawn 41 AM Arterial Blood 7.383 pH (Temp corrected) Arterial Blood 43.5 pCO2 (Temp correct) Arterial Blood 77.8 L pO2 (Temp corrected) Arterial Blood 25.3 HCO3 Arterial Blood 0.2 Base Excess Arterial Blood 93.2 L Oxygen Saturatio n Morgan Test N/A Arterial Blood Right Brachial Gas Puncture Site Arterial 0.1 Blood Carboxyhem oglobin Arterial Blood 0.4 Methemoglobin Blood Gas A-a O2 70.5 H Differential Oxyhemoglobin 92.7 L Percent Blood Gas 37.0 Temperature Blood Gas NASAL CANNULA Modality FiO2 28.0 Blood Gas ANDREA Notified Whom Blood Gas 10/19/2018 1:41: Notified Time 24 AM Test 10/19/18 05:52 White Blood 3.5 #L Count Red Blood Count 1.78 L Hemoglobin 6.2 *L Hematocrit 19.0 L Mean Corpuscular 106.7 H Volume Mean Corpuscular 34.8 H Hemoglobin Mean Corpuscular 32.6 Hemoglobin Anh nt Red Cell 16.3 H Distribution Width Platelet Count 14 #*L Mean Platelet Volume Immature 0.300 Granulocytes % Neutrophils % Lymphocytes % Monocytes % Eosinophils % Basophils % Nucleated Red 0.0 Blood Cells % Immature 0.010 Granulocytes # Neutrophils # Lymphocytes # Monocytes # Eosinophils # Basophils # Nucleated Red Blood Cells # Pathologist YES Review (Hematolo gy) Lactic Acid 1.8 Level Phosphorus Level 5.7 H Medications Medication Current Medications IV Flush (NS 3 ml) 3 ml PER PROTOCOL IV ; Start 10/19/18 at 03:00 Ondansetron HCl (Zofran Inj) 4 mg Q6H PRN IV NAUSEA/VOMITING; Start 10/19/18 at 03:00 Acetaminophen (Tylenol Tab) 650 mg Q6H PRN PO .PAIN 1-3 OR TEMP; Start 10/19/18 at 03:00 Docusate Sodium (Colace) 100 mg Q12H PRN PO .CONSTIPATION; Start 10/19/18 at 03:00 Bisacodyl (Dulcolax) 5 mg DAILY PRN PO .CONSTIPATION; Start 10/19/18 at 03:00 Aztreonam 0.5 gm/ Sodium Chloride 50 ml @ 100 mls/hr Q12 IVPB ; Start 10/19/18 at 11:00 AJIT DICKINSON MD Oct 19, 2018 08:21
[2018-10-19] MEDS ORDERED: AZTREONAM 0.5 GM in SOD CHLORIDE 0.9% 50 ML IVPB SCH (11:00)
--- NOTE | 2018-10-19 11:31 | QN ---
Documentation Comment Very unfortunate 58-year-old female with advanced renal disease, status post PD, HD, on renal transplant list, CAD, anemia, pacemaker placed, here with worsening shortness of breath. Plan is dialysis. Patient with severe anemia and thrombocytopenia requiring transfusion. She is also with ascites, likely requiring a paracentesis if hemodialysis does not help with the volume status. Continue current management and follow-up consultants recommendations. Patient was seen in collaboration with Dr. Jay. DOMINIC LOUIS NP Oct 19, 2018 11:31
[2018-10-19] MEDS ORDERED: PENDING SANTYL ORDER FOR WOUND CARE XX PRN (12:30)
[2018-10-19] MEDS: metroNIDAZOLE 250 MG TAB PO SCH ×2 (13:54→21:19)
[2018-10-19] MEDS ORDERED: metroNIDAZOLE 500 MG/NS (PMX) 100 ML IVPB SCH (14:00)
--- NOTE | 2018-10-19 14:23 | CONS ---
DATE OF ADMISSION: 10/19/2018 DATE OF CONSULTATION: 10/19/2018 TYPE OF CONSULTATION: Nephrology. REASON FOR CONSULTATION: End-stage renal disease. REQUESTING PHYSICIAN: Lex Cruz MD HISTORY OF PRESENT ILLNESS: This is a 58-year-old female with a past medical history of end-stage re nal disease on dialysis Friday, Friday, Friday with access of a right femoral Perm-A-Cath. A hist ory of anemia, previous history of hypertension who presents to [facility] with oleksandr rtness of breath. The patient states that she has had very poor appetite over the last several days. She normally goes [facility]. The patient apparently is on the kidney transpla nt list at [facility], but because of the progressive weakness and shortness of breath, she came int o the Emergency Room. In terms of the patient's renal history, the patient was previously on peritoneal dialysis but has be en converted over to hemodialysis. The patient's primary feather edger is Dr. 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 PAST MEDICAL HISTORY: As stated above, history of end-stage renal disease, history of anemia, histor y of hypertension. ALLERGIES: PLEASE SEE LIST. PAST SURGICAL HISTORY: Status post left AV fistula, status post PD catheter placement, status post r ight femoral catheter placement. FAMILY HISTORY: No family history of kidney disease. SOCIAL HISTORY: Does not drink, smoke or do drugs. MEDICATIONS: Have been reviewed. REVIEW OF SYSTEMS: A 14-point review of systems conducted. Pertinent positives stated in HPI, other walker negative. PHYSICAL EXAMINATION: VITAL SIGNS: Blood pressure is 128/74, respirations 17, pulse 98, temperature 97.6. HEENT: Head is normocephalic. NECK: Supple. HEART: Regular rate. LUNGS: Show diminished breath sounds at the base. ABDOMEN: Soft, nontender to palpation without rebound or guarding. EXTREMITIES: Negative for clubbing, cyanosis, positive edema. DERMATOLOGIC: No rashes. MUSCULOSKELETAL: No joint effusion. NEUROLOGIC: No focal deficits. IMAGING STUDIES: CT scan showed diffuse generalized anasarca, PD catheter in place, bilateral pleura l effusions, large volume loculated ascites with peritoneal calcification secondary to chronic PD scott lysis. Chest x-ray shows cardiomegaly with mild vascular congestion, moderate left-sided pleural eff usion, right basilar parenchymal opacity and left-sided dual chamber pacemaker. ASSESSMENT AND PLAN: This is a 58-year-old female who presents with: 1. End-stage renal disease. The patient's access currently is Perm-A-Cath. Plan is for dialysis fo r 3 hours 3k bath, calcium 2.5. We will ultrafiltrate approximately 1 to 2 liters. 2. Anemia. Would recommend blood transfusion. The patient will be given Epogen. Will check an iro n panel. 3. Mineral bone disorder, monitor calcium and phosphorus levels. 4. Lactic acidosis. Etiology is unclear, possibly due to hemodynamics, questionable sepsis. We veronica l continue to trend lactic acid level and monitor. 5. Volume overload. The patient has noted bilateral pleural effusions, ascites. We will attempt ul trafiltration with dialysis if hemodynamically stable. 6. Abscess. The patient has noted peritoneal catheter per imaging studies with calcification. May consider a general surgery evaluation for discontinuing the PD catheter. 7. Pancytopenia. Etiology is unclear. Continue to monitor. May consider hematologic evaluation. 8. Systemic inflammatory response syndrome. The patient is being ruled out for infection. Continue empiric antibiotics, follow up cultures. Follow up with infectious disease. 9. Loculated ascitic fluid, likely from PD dialysis as stated above. May consider a general surgery evaluation for removal of PD catheter. Continue empiric antibiotics, possible diagnostic paracentes is. 10. History of coronary artery disease. 11. History of arrhythmia, status post pacemaker. 12. History of hypertension. Thank you, Dr. Cruz, for this interesting consult. It will be a pleasure to follow patient with ciera ontiveros throughout the hospital course. Dictated By: SARIKA JOINER DO NR/NTS Conf#: [id number] DID#: [id number] CC: LEX CRUZ MD;*EndCC*
[2018-10-19] MEDS ORDERED: LIDOCAINE 1% (MPF) 5 ML VIAL ONE (16:05)
--- NOTE | 2018-10-19 17:44 | RADRPT ---
Echocardiogram Report Patient Name: JARAD OSUNAPatient ID: [id number] : [id number] (58y 5m)Study Date: 10/19/2018 7:05:18 AM Gender: FAccession #: [id number] Tech: Minesh Steele RDCS Location: [facility] Ref.Physician: HARI CRUZ Height(Cm): BSA: Weight(Kg): Quality: AdequateAccount #: Procedures: Echocardiographic Report: Transthoracic echocardiogram with complete 2D, M-Mode, and doppler examination. Indications: Elevated bnp, pulm congestion. Measurements: 2D/M Mode Doppler Measurement Value Normal Range Measurement Value Normal Range LVIDd 2D 3.1 [ 3.8 - 5.2 ] cm AV Mean Ari 1.1 [ 70.0 - 90.0 ] cm/sec LVIDs 2D 2.2 [ 2.2 - 3.5 ] cm AV Mean PG 6.0 [ 2.0 - 4.0 ] mmHg LVPWd 2D 1.0 [ 0.6 - 0.9 ] cm AV VTI 39.8 cm IVSd 2D 1.0 [ 0.6 - 0.9 ] cm LVOT Mean Ari 0.7 [ 60.0 - 80.0 ] cm/sec AoR Diam 2D 2.0 [ 2.3 - 3.1 ] cm LVOT Mean PG 2.0 [ 1.0 - 3.0 ] mmHg EDV 2D 38.5 [ 46.0 - 106.0 ] ml LVOT Peak Ari 1.0 [ 70.0 - 110.0 ] cm/sec ESV 2D 15.8 [ 14.0 - 42.0 ] ml LVOT Peak PG 4.0 [ 2.0 - 6.0 ] mmHg EF 2D 59.0 [ 54.0 - 74.0 ] percent LVOT VTI 27.7 [ 20.0 - 30.0 ] cm LA Dimen 2D 2.7 [ 2.7 - 3.8 ] cm MV E Peak Ari 1.1 [ 60.0 - 130.0 ] cm/sec MV A Peak Ari 1.0 [ 100.0 - 120.0 ] cm/sec MV E/A 1.1 [ 0.8 - 1.5 ] ratio MV Decel Time 155 [ 104 - 258 ] msec Lat E` Ari 0.1 [ 10.0 - 15.0 ] cm/sec Lateral E/E` 12.3 [ 1.0 - 2.0 ] ratio MV E/A 1.1 [ 0.8 - 1.5 ] ratio TR Peak Ari 2.8 [ 100.0 - 280.0 ] cm/sec TR Peak PG 32.0 mmHg RVSP 35.0 [ 10.0 - 36.0 ] mmHg RA Pressure 3.0 mmHg Findings: Left Ventricle: Normal left ventricular systolic function. Normal left ventricular cavity size. Normal left ventricular wall thickness. Ejection fraction is visually estimated at 65 %. Tissue Doppler/Mitral Doppler indices are within normal limits. Right Ventricle: Normal right ventricular size. Normal right ventricular systolic function. Linear artifact in right ventricle suggestive of catheter, pacer lead, or ICD lead. Left Atrium: The left atrium is normal in size. There is mild enlargement of left atrium. Right Atrium: The right atrium is normal in size. Mitral Valve: Mitral valve leaflets appear mildly thickened. Mild mitral annular calcification. Trace mitral regurgitation. Aortic Valve: Aortic sclerosis without significant stenosis. Trace aortic valve regurgitation. Tricuspid Valve: Normal appearance of the tricuspid valve. Estimated peak PA systolic pressure 35 mmHg. There is mild to moderate tricuspid regurgitation. Pulmonic Valve: Normal pulmonic valve appearance. Pericardium: Normal pericardium with no significant pericardial effusion. Pleural effusion seen. Aorta: Normal aortic root. IVC: Normal size and normal respiratory collapse consistent with normal right atrial pressure. Conclusions: Normal left ventricular systolic function. Normal left ventricular cavity size. Normal left ventricular wall thickness. Ejection fraction is visually estimated at 65 %. Tissue Doppler/Mitral Doppler indices are within normal limits. The left atrium is normal in size. There is mild enlargement of left atrium. Aortic sclerosis without significant stenosis. Trace aortic valve regurgitation. Mitral valve leaflets appear mildly thickened. Mild mitral annular calcification. Trace mitral regurgitation. Normal appearance of the tricuspid valve. Estimated peak PA systolic pressure 35 mmHg. There is mild to moderate tricuspid regurgitation. Electronically Signed By: Goyo Rogel 2018-10-19 17:43:40 PDT
[2018-10-20] VITALS (10 sets, daily range): BP systolic 100–114; BP diastolic 57–67; PULSE 74–97; RESP 17–20
[2018-10-20] MEDS: metroNIDAZOLE 250 MG TAB PO SCH ×3 (05:38→21:14)
--- NOTE | 2018-10-20 06:29 | CONS ---
Assessment/Plan Assessment/Plan Hospital Course (Demo Recall) 1) acute SOB this is likely multifactorial she is anemic, her son has a cough doubt she has a bacterial infection but can not rule this out this time CT abd/pelv shows compressive atelectasis from her pleural effusions but a pnm could be hiding I will order respiratory cx get nasal PCR and nasal MRSA continue with levaquin and add flagyl d/c aztreanom check procalcitonin in a.m. pt to get tx today 10/20 - breathing is better, post paracentesis and blood tx await sputum cx on levaquin/flagyl, will repeat CXR and if improved consider d/c of antibiotics 2) anemia of chronic disease blood tx has been ordered 3) ESRD 4) loculated ascitic fluid from prior peritoneal dialysis if pt develops fevers or elevated WBC may need to due paracentesis to r/o infection 10/20 - paracentesis performed but no studies done on it no abd pain, fevers or elevated WBC, doubt septic peritonitis 5) CAD with pacer 6)HTN 7) thrombocytopenia this is not new Consultation Date/Type/Reason Admit Date/Time Oct 19, 2018 at 02:51 Initial Consult Date 10/19/18 Type of Consult ID Date/Time of Note DATE: 10/20/18 TIME: 06:24 24 HR Interval Summary Free Text/Dictation pt states breathing is better no N, V, D no cough but has a sore throat Exam/Review of Systems Exam Vitals Vital Signs Date Temp Pulse Resp B/P (MAP) Pulse Ox O2 O2 Flow FiO2 Time Delivery Rate 10/20/18 97.4 96 20 102/57 99 04:00 (72) 10/19/18 Nasal 2.0 21:29 Cannula 10/19/18 100 01:15 Intake and Output 10/19/18 10/19/18 10/20/18 1515:00 23:00 07:00 IntakeIntake Total 100 ml OutputOutput Total 5400 ml BalanceBalance 100 ml -5400 ml Constitutional: alert Eyes: nl sclera ENMT: mucosa pink and moist Respiratory: clear to auscultation Cardiovascular: regular rate and rhythm Gastrointestinal: other (less hard than yesterday, BS present) Results Result Diagram: 10/20/18 0558 10/19/18 0057 Results 24hrs Laboratory Tests Test 10/19/18 14:07 10/19/18 17:13 10/19/18 22:02 10/20/18 05:58 White Blood Count 3.9 L 2.9 #L 4.1 #L 4.6 L Red Blood Count 2.87 #L 2.21 #L 3.23 #L 3.36 L Hemoglobin 9.1 #L 7.1 #L 10.5 #L 10.9 L Hematocrit 28.7 #L 21.8 #L 31.9 #L 32.9 L Mean Corpuscular 100.0 98.6 98.8 97.9 Volume Mean Corpuscular 31.7 32.1 32.5 32.4 Hemoglobin Mean Corpuscular 31.7 L 32.6 32.9 33.1 Hemoglobin Concent Red Cell 20.1 #H 20.3 H 18.7 H 19.3 H Distribution Width Platelet Count 21 #*L 16 #*L 18 *L 19 *L Mean Platelet 10.6 H Volume Immature 0.300 0.300 1.000 H 0.200 Granulocytes % Neutrophils % 78.2 H Segmented 70 73 Neutrophils % (Manual) Band Neutrophils % 17 H 7 H (Manual) Lymphocytes % 16.6 Lymphocytes % 12 L 15 (Manual) Monocytes % 3.5 Monocytes % 1 (Manual) Eosinophils % 0.7 Basophils % 0.7 Nucleated Red 0.0 0.0 1 H 0.0 Blood Cells % Immature 0.010 0.010 0.040 H 0.010 Granulocytes # Neutrophils # 2.3 Neutrophils # 2.8 3.0 (Manual) Band Neutrophils # 0.6 0.2 Lymphocytes 0.4 L 0.6 L (Manual) Lymphocytes # 0.5 L Monocytes # 0.1 L Monocytes # 0.0 L (Manual) Eosinophils # 0.0 Basophils # 0.0 Nucleated Red 0.0 Blood Cells # Platelet Estimate SIG DECREASED NORMAL Poikilocytosis 1+ 1+ Anisocytosis 2+ 2+ Macrocytosis 1+ Eosinophils % 5 (Manual) Giant Platelets 11 H Polychromasia 1+ Microcytosis 1+ Medications Medication Current Medications IV Flush (NS 3 ml) 3 ml PER PROTOCOL IV ; Start 10/19/18 at 03:00 Ondansetron HCl (Zofran Inj) 4 mg Q6H PRN IV NAUSEA/VOMITING; Start 10/19/18 at 03:00 Acetaminophen (Tylenol Tab) 650 mg Q6H PRN PO .PAIN 1-3 OR TEMP; Start 10/19/18 at 03:00 Docusate Sodium (Colace) 100 mg Q12H PRN PO .CONSTIPATION; Start 10/19/18 at 03:00 Bisacodyl (Dulcolax) 5 mg DAILY PRN PO .CONSTIPATION; Start 10/19/18 at 03:00 Levofloxacin/ Dextrose 50 ml @ 50 mls/hr Q48H IVPB ; Start 10/21/18 at 08:30 Metronidazole (Flagyl) 250 mg Q8 PO Last administered on 10/20/18at 05:38; Admin Dose 250 MG; Start 10/19/18 at 14:00 Miscellaneous Information (Pending Santyl Order For Wound Care) This patient danielle... PRN PRN XX WOUND CARE; Start 10/19/18 at 12:30 AJIT DICKINSON MD Oct 20, 2018 06:29
--- NOTE | 2018-10-20 09:40 | PN ---
DATE: 10/20/2018 SUBJECTIVE: The patient is stable, no acute events overnight. OBJECTIVE: VITAL SIGNS: Blood pressure is 100/59, respirations 17, temperature 97.5. HEENT: Head is normocephalic. NECK: Supple. HEART: Regular rate. LUNGS: Show diminished breath sounds at the base. ABDOMEN: Soft, nontender to palpation without rebound or guarding. EXTREMITIES: Negative for clubbing, cyanosis, no edema. DERMATOLOGIC: No rashes. MUSCULOSKELETAL: No joint effusion. NEUROLOGIC: No change in exam. MEDICATIONS: Reviewed. LABORATORY DATA: Reviewed. White count 4.6, platelet 19, hemoglobin 10.9. ASSESSMENT AND PLAN: 1. End-stage renal disease. The patient had hemodialysis yesterday, tolerated well. Plan is for di alysis again tomorrow. 2. Anemia. The patient is status post blood transfusion. Continue Epogen. Follow up iron panel. 3. Mineral bone disorder, monitor calcium and phosphorus levels. 4. Lactic acidosis. Etiology is unclear, questionable sepsis, hemodynamics. Continue to monitor. 5. Volume overload. Continue ultrafiltration dialysis. 6. Dialysis access. The patient has been on peritoneal catheter with possible loculated fluid. We will continue to monitor. Currently, the patient is using a Ptip-W-Sfyxboag in her right femoral vei n. 7. Pancytopenia. Etiology is unclear. Continue to monitor. Follow up with hematology. 8. Systemic inflammatory response syndrome, possible sepsis. Continue current antibiotic regimen. 9. History of coronary artery disease. 10. History of arrhythmia, status post pacemaker. 11. History of hypertension. Dictated By: SARIKA JOINER DO NR/NTS Conf#: [id number] DID#: [id number] CC: HARI CRUZ MD; SARIKA JOINER DO;*EndCC*
[2018-10-20] MEDS ORDERED: EPOETIN 10000 UNITS/1 ML INJ (ESRD) SC ONE (10:00)
--- NOTE | 2018-10-20 10:42 | PN ---
Date/Time of Note Date/Time of Note DATE: 10/20/18 TIME: 10:42 Assessment/Plan VTE Prophylaxis Risk score (from Ns)>0 risk: 4 SCD applied (from Nsg): Yes Pharmacological prophylaxis: NA/contraindicated Pharm contraindication: low risk/ambulating Lines/Catheters IV [facility]ter [facility]from [facility] Permacath Urinary Cath still in place: No Assessment/Plan Hospital Course SUBJECTIVE: No acute overnight episodes. No fevers. On 2 L nasal cannula. OBJECTIVE: Vital signs-see below PHYSICAL EXAM: Constitutional: Frail looking bandage speaking female, not in acute distress. Psych: nl mood/affect, no complaints Head: atraumatic, normocephalic Eyes: nl conjunctiva, nl sclera ENMT: mucosa pink and moist, nl external ears & nose Neck: non-tender, supple Respiratory: clear to auscultation, normal air movement Cardiovascular: nl pulses, regular rate and rhythm Gastrointestinal: +Distended/Tender/firm. +umblical hernia. +BS Musculoskeletal/extremities: 4+ Edema/Anasarca BLEs. no focal deficit. Normal pulses,no cyanosis Neurological: Alert oriented 3,nl speech, nl strength Skin: nl turgor ASSESSMENT/PLAN:58 yo female w/ESRD/HD (M,W,F),unused PD cath in place,ascites requiring paracetesis, here w/SOB,cough... 1. Loculated ascites,likely from calcified/sclerosed PD catheter -stable liver fxn, no evidence of cirrhosis,no fever/chills to suspect peritonitis. -Status post paracentesis 10/19/2018 with 4.5 L, fluid studies never sent for unclear reasons. -Best recommendation is to take out this PD catheter , will consult surgery. 2. ESRD, hemodialysis patient (MWF) -Nephrology managing. Plan is hemodialysis in a.m. -Resume phosphate binders -Patient also has unused/calcified peritoneal dialysis catheter, for which we will request surgery to remove it if possible during this hospitalization. 3. Profound anemia/thrombocytopenia -Etiology unclear -Patient would benefit from a formal hematology evaluation. Consult requested with Dr. Marin. 4.Volume overload/pleural effusion 2/2 ESRD -Cont.UF 5. Chronic Periumbilical hernia -No evidence of strangulation/incarceration -This also might need eventual surgical repair, once again pt's profound thrombocytopenia precludes her from any major surgery at this point. 6. Upper respiratory infection -Cooperating nicely. Antibiotic management per ID. 7. Hypothyroidism -Resume Synthroid 8. Arrhythmias, status post pacemaker placed. -Continue amiodarone. Not a candidate for anticoagulation secondary to thrombocytopenia/anemia/high risk bleeding. 9. Hypertension -Stable. Discontinue Norvasc at home secondary to peripheral edema -Currently her blood pressure is borderline low, does not need any antihypertensives. DVT prophylaxis: SCDs PUD prophylaxis: PPI CODE STATUS: Full code Diet: 2 g sodium diet/renal diet. Disposition: Continue current management. Overall, patient with poor prognosis secondary to recurrent ascites, advanced kidney disease. I discussed with little patel's son in detail and addressed her CODE STATUS. At this time, they want to pursue full code. Patient was seen in collaboration with Dr. Jay. Result Diagram: 10/20/18 0558 10/20/18 0557 Results 24hrs Laboratory Tests Test 10/19/18 14:07 10/19/18 17:13 10/19/18 22:02 10/20/18 00:10 White Blood 3.9 L 2.9 #L 4.1 #L Count Red Blood Count 2.87 #L 2.21 #L 3.23 #L Hemoglobin 9.1 #L 7.1 #L 10.5 #L Hematocrit 28.7 #L 21.8 #L 31.9 #L Mean 100.0 98.6 98.8 Corpuscular Volume Mean 31.7 32.1 32.5 Corpuscular Hemoglobin Mean 31.7 L 32.6 32.9 Corpuscular Hemoglobin Conc ent Red Cell 20.1 #H 20.3 H 18.7 H Distribution Width Platelet Count 21 #*L 16 #*L 18 *L Mean Platelet 10.6 H Volume Immature 0.300 0.300 1.000 H Granulocytes % Neutrophils % 78.2 H Segmented 70 73 Neutrophils % (Manual) Band 17 H 7 H Neutrophils % (Manual) Lymphocytes % 16.6 Lymphocytes % 12 L 15 (Manual) Monocytes % 3.5 Monocytes % 1 (Manual) Eosinophils % 0.7 Basophils % 0.7 Nucleated Red 0.0 0.0 1 H Blood Cells % Immature 0.010 0.010 0.040 H Granulocytes # Neutrophils # 2.3 Neutrophils # 2.8 3.0 (Manual) Band 0.6 0.2 Neutrophils # Lymphocytes 0.4 L 0.6 L (Manual) Lymphocytes # 0.5 L Monocytes # 0.1 L Monocytes # 0.0 L (Manual) Eosinophils # 0.0 Basophils # 0.0 Nucleated Red 0.0 Blood Cells # Platelet SIG DECREASED NORMAL Estimate Poikilocytosis 1+ 1+ Anisocytosis 2+ 2+ Macrocytosis 1+ Eosinophils % 5 (Manual) Giant Platelets 11 H Polychromasia 1+ Microcytosis 1+ Stool Occult NEGATIVE Blood Test 10/20/18 05:57 10/20/18 05:58 10/20/18 08:53 Sodium Level 141 Potassium Level 4.0 Chloride Level 105 Carbon Dioxide 27 Level Anion Gap 9 Blood Urea 24 #H Nitrogen Creatinine 2.44 #H Est Glomerular 20 L Filtrat Rate mL/min Glucose Level 96 Calcium Level 9.0 Magnesium Level 1.8 Total Bilirubin 0.5 Direct 0.00 Bilirubin Indirect 0.5 Bilirubin Aspartate Amino 14 L Transf (AST/SGO T) Alanine 24 Aminotransferas e (ALT/SGPT) Alkaline 99 Phosphatase Total Protein 5.9 L Albumin 3.1 L Globulin 2.80 Albumin/Globuli 1.10 n Ratio Triglycerides 73 Level Cholesterol 73 L Level LDL 30 Cholesterol, Calculated HDL Cholesterol 28 L Cholesterol/HDL 2.6 Ratio Thyroid 12.900 H Stimulating Hormone (TSH) HIV (1&2) NEGATIVE Antibody White Blood 4.6 L Count Red Blood Count 3.36 L Hemoglobin 10.9 L Hematocrit 32.9 L Mean 97.9 Corpuscular Volume Mean 32.4 Corpuscular Hemoglobin Mean 33.1 Corpuscular Hemoglobin Conc ent Red Cell 19.3 H Distribution Width Platelet Count 19 *L Mean Platelet Volume Immature 0.200 Granulocytes % Neutrophils % Segmented 45 Neutrophils % (Manual) Band 12 H Neutrophils % (Manual) Lymphocytes % Lymphocytes % 30 (Manual) Reactive 11 H Lymphocytes % (Manual) Monocytes % Eosinophils % Eosinophils % 2 (Manual) Basophils % Nucleated Red 0.0 Blood Cells % Immature 0.010 Granulocytes # Neutrophils # Neutrophils # 2.1 (Manual) Band 0.5 Neutrophils # Lymphocytes 1.3 (Manual) Lymphocytes # Reactive 0.5 H Lymphocytes # Monocytes # Eosinophils # Basophils # Nucleated Red Blood Cells # Platelet SIG DECREASED Estimate Giant Platelets 10 H Poikilocytosis 1+ Anisocytosis 1+ Macrocytosis 1+ Hemoglobin A1c 4.9 Lab Scanned BLOOD TRANSFUS Report ION Exam/Review of Systems Exam Vitals Vital Signs Date Temp Pulse Resp B/P (MAP) Pulse Ox O2 O2 Flow FiO2 Time Delivery Rate 10/20/18 95 08:00 10/20/18 97.5 17 100/59 96 07:13 (73) 10/19/18 Nasal 2.0 21:29 Cannula 10/19/18 100 01:15 Intake and Output 10/19/18 10/19/18 10/20/18 1515:00 23:00 07:00 IntakeIntake Total 100 ml OutputOutput Total 5400 ml BalanceBalance 100 ml -5400 ml Results Results 24hrs Laboratory Tests Test 10/19/18 14:07 10/19/18 17:13 10/19/18 22:02 10/20/18 00:10 White Blood 3.9 L 2.9 #L 4.1 #L Count Red Blood Count 2.87 #L 2.21 #L 3.23 #L Hemoglobin 9.1 #L 7.1 #L 10.5 #L Hematocrit 28.7 #L 21.8 #L 31.9 #L Mean 100.0 98.6 98.8 Corpuscular Volume Mean 31.7 32.1 32.5 Corpuscular Hemoglobin Mean 31.7 L 32.6 32.9 Corpuscular Hemoglobin Conc ent Red Cell 20.1 #H 20.3 H 18.7 H Distribution Width Platelet Count 21 #*L 16 #*L 18 *L Mean Platelet 10.6 H Volume Immature 0.300 0.300 1.000 H Granulocytes % Neutrophils % 78.2 H Segmented 70 73 Neutrophils % (Manual) Band 17 H 7 H Neutrophils % (Manual) Lymphocytes % 16.6 Lymphocytes % 12 L 15 (Manual) Monocytes % 3.5 Monocytes % 1 (Manual) Eosinophils % 0.7 Basophils % 0.7 Nucleated Red 0.0 0.0 1 H Blood Cells % Immature 0.010 0.010 0.040 H Granulocytes # Neutrophils # 2.3 Neutrophils # 2.8 3.0 (Manual) Band 0.6 0.2 Neutrophils # Lymphocytes 0.4 L 0.6 L (Manual) Lymphocytes # 0.5 L Monocytes # 0.1 L Monocytes # 0.0 L (Manual) Eosinophils # 0.0 Basophils # 0.0 Nucleated Red 0.0 Blood Cells # Platelet SIG DECREASED NORMAL Estimate Poikilocytosis 1+ 1+ Anisocytosis 2+ 2+ Macrocytosis 1+ Eosinophils % 5 (Manual) Giant Platelets 11 H Polychromasia 1+ Microcytosis 1+ Stool Occult NEGATIVE Blood Test 10/20/18 05:57 10/20/18 05:58 10/20/18 08:53 Sodium Level 141 Potassium Level 4.0 Chloride Level 105 Carbon Dioxide 27 Level Anion Gap 9 Blood Urea 24 #H Nitrogen Creatinine 2.44 #H Est Glomerular 20 L Filtrat Rate mL/min Glucose Level 96 Calcium Level 9.0 Magnesium Level 1.8 Total Bilirubin 0.5 Direct 0.00 Bilirubin Indirect 0.5 Bilirubin Aspartate Amino 14 L Transf (AST/SGO T) Alanine 24 Aminotransferas e (ALT/SGPT) Alkaline 99 Phosphatase Total Protein 5.9 L Albumin 3.1 L Globulin 2.80 Albumin/Globuli 1.10 n Ratio Triglycerides 73 Level Cholesterol 73 L Level LDL 30 Cholesterol, Calculated HDL Cholesterol 28 L Cholesterol/HDL 2.6 Ratio Thyroid 12.900 H Stimulating Hormone (TSH) HIV (1&2) NEGATIVE Antibody White Blood 4.6 L Count Red Blood Count 3.36 L Hemoglobin 10.9 L Hematocrit 32.9 L Mean 97.9 Corpuscular Volume Mean 32.4 Corpuscular Hemoglobin Mean 33.1 Corpuscular Hemoglobin Conc ent Red Cell 19.3 H Distribution Width Platelet Count 19 *L Mean Platelet Volume Immature 0.200 Granulocytes % Neutrophils % Segmented 45 Neutrophils % (Manual) Band 12 H Neutrophils % (Manual) Lymphocytes % Lymphocytes % 30 (Manual) Reactive 11 H Lymphocytes % (Manual) Monocytes % Eosinophils % Eosinophils % 2 (Manual) Basophils % Nucleated Red 0.0 Blood Cells % Immature 0.010 Granulocytes # Neutrophils # Neutrophils # 2.1 (Manual) Band 0.5 Neutrophils # Lymphocytes 1.3 (Manual) Lymphocytes # Reactive 0.5 H Lymphocytes # Monocytes # Eosinophils # Basophils # Nucleated Red Blood Cells # Platelet SIG DECREASED Estimate Giant Platelets 10 H Poikilocytosis 1+ Anisocytosis 1+ Macrocytosis 1+ Hemoglobin A1c 4.9 Lab Scanned BLOOD TRANSFUS Report ION Medications Medication Current Medications IV Flush (NS 3 ml) 3 ml PER PROTOCOL IV ; Start 10/19/18 at 03:00 Ondansetron HCl (Zofran Inj) 4 mg Q6H PRN IV NAUSEA/VOMITING; Start 10/19/18 at 03:00 Acetaminophen (Tylenol Tab) 650 mg Q6H PRN PO .PAIN 1-3 OR TEMP; Start 10/19/18 at 03:00 Docusate Sodium (Colace) 100 mg Q12H PRN PO .CONSTIPATION; Start 10/19/18 at 03:00 Bisacodyl (Dulcolax) 5 mg DAILY PRN PO .CONSTIPATION; Start 10/19/18 at 03:00 Metronidazole (Flagyl) 250 mg Q8 PO Last administered on 10/20/18at 05:38; Admin Dose 250 MG; Start 10/19/18 at 14:00 Miscellaneous Information (Pending Santyl Order For Wound Care) This patient danielle... PRN PRN XX WOUND CARE; Start 10/19/18 at 12:30 Levofloxacin (Levaquin) 250 mg Q48H PO ; Start 10/21/18 at 06:30 Epoetin Margarito (Epogen (Esrd)) 10,000 units MoWeFr@17 SC ; Start 10/21/18 at 17:00 DOMINIC LOUIS NP Oct 20, 2018 10:42
--- NOTE | 2018-10-20 13:44 | CONS ---
Assessment/Plan Assessment/Plan Hospital Course (Demo Recall) 1. ESRD with HD, status post PD (no longer in use over 1 year) -Limit nephrotoxic meds -Renally dose meds -HD Per renal -DC PD once patient medically optimized--thrombocytopenia improved 2. Pancytopenia: -Hematology consult -Supportive, transfusions as needed 3.Large volume loculated ascites: Status post paracentesis -Fluid management -Paracentesis as needed -DC PD 4. Bilateral pleural effusions: -Fluid management -Consider thoracentesis if unimproved - consider pulmonary consult 5. Hypothyroidism: -Medical management 6. Hypertension history: -Med management Thank you. Patient seen and examined in collaboration with Dr. Matthew Voss. Consultation Date/Type/Reason Admit Date/Time Oct 19, 2018 at 02:51 Date of Consultation: Oct 20, 2018 Type of Consult Surgical Reason for Consultation Peritoneal dialysis removal Requesting Provider: DOMINIC LOUIS NP Date/Time of Note DATE: 10/20/18 TIME: 13:23 Hx of Present Illness Mylene Renee is a 58-year-old woman with past medical history of ESRD on hemodialysis with previous peritoneal dialysis, hypertension, AV fistula, who presented to the ED with complaints of shortness of breath times 1 day. Associated symptoms include dizziness for several days & poor appetite. She is currently admitted and was found to have bilateral pleural effusions and cardiopulmonary congestion, as well as loculated ascites likely from calcified/sclerosed PD catheter. She is currently on antibiotic therapy for possible pneumonia and she underwent paracentesis as well. No current reports of dizziness, lightheadedness, fevers, chills, chest pain, palpitations, nausea, vomiting, diarrhea, change in bowel or bladder habits, abdominal pain or discomfort. Notably, her peritoneal dialysis catheter was reportedly placed 10 years ago. However, she has not used peritoneal dialysis in over one year as she has since transitioned to hemodialysis. General surgery was asked to evaluate for removal of peritoneal dialysis. 12 point review of systems was performed and is negative except for as stated in HPI. Past Medical History As above Home Meds Reported Medications Azithromycin* (Azithromycin*) 250 Mg Tablet, 250 MG PO DAILY, #4 TAB STARTED 08-08-18 FOR 5 DAYS 08/10/18 Ranitidine Hcl* (Ranitidine Hcl*) 150 Mg Tablet, 150 MG PO HS, #30 TAB 08/10/18 Folic Acid* (Folic Acid*) 1 Mg Tablet, 1 MG PO DAILY, TAB 08/10/18 Amiodarone Hcl* (Amiodarone Hcl*) 200 Mg Tablet, 200 MG PO BID, #60 TAB 08/10/18 Pantoprazole* (Protonix*) 40 Mg Tablet.dr, 40 MG PO DAILY, TAB 08/10/18 Multivit/Ca Carb/B Cmplx/Fa* (Iram-Xiomara*) 1 Tab Tab, 1 TAB PO DAILY, TAB 08/10/18 Amlodipine Besylate* (Norvasc*) 5 Mg Tablet, 5 MG PO DAILY, TAB 08/10/18 Levothyroxine Sodium* (Levoxyl*) 75 Mcg Tablet, 75 MCG PO BEFORE BREAKFAST, #30 TAB 08/10/18 Medications Current Medications IV Flush (NS 3 ml) 3 ml PER PROTOCOL IV ; Start 10/19/18 at 03:00 Ondansetron HCl (Zofran Inj) 4 mg Q6H PRN IV NAUSEA/VOMITING; Start 10/19/18 at 03:00 Acetaminophen (Tylenol Tab) 650 mg Q6H PRN PO .PAIN 1-3 OR TEMP; Start 10/19/18 at 03:00 Docusate Sodium (Colace) 100 mg Q12H PRN PO .CONSTIPATION; Start 10/19/18 at 03:00 Bisacodyl (Dulcolax) 5 mg DAILY PRN PO .CONSTIPATION; Start 10/19/18 at 03:00 Metronidazole (Flagyl) 250 mg Q8 PO Last administered on 10/20/18at 05:38; Admin Dose 250 MG; Start 10/19/18 at 14:00 Miscellaneous Information (Pending Santyl Order For Wound Care) This patient danielle... PRN PRN XX WOUND CARE; Start 10/19/18 at 12:30 Levofloxacin (Levaquin) 250 mg Q48H PO ; Start 10/21/18 at 06:30 Epoetin Margarito (Epogen (Esrd)) 10,000 units MoWeFr@17 SC ; Start 10/21/18 at 17:00 Amiodarone HCl (Cordarone) 200 mg BID PO ; Start 10/20/18 at 11:00 Folic Acid (Folic Acid) 1 mg DAILY PO ; Start 10/20/18 at 11:00 Levothyroxine Sodium (Synthroid) 75 mcg BEFORE BREAKFAST PO ; Start 10/21/18 at 07:00 Multivit/Ca Carb/ B Cmplx/FA/Prenat (Iram-Xiomara) 1 tab DAILY PO ; Start 10/20/18 at 11:00 Pantoprazole (Protonix Tab) 40 mg DAILY@0600 PO ; Start 10/20/18 at 11:00 Allergies: Coded Allergies: Penicillins (Verified Allergy, Unknown, 08/10/18) tazobactam (Verified Allergy, Unknown, 08/10/18) vancomycin (Verified Allergy, Unknown, 08/10/18) Past Surgical History As above Family History Significant Family History: no pertinent family hx Social History Alcohol Use: none Smoking Status: Former smoker Drug Use: none Exam/Review of Systems Exam Vitals Vital Signs Date Temp Pulse Resp B/P (MAP) Pulse Ox O2 O2 Flow FiO2 Time Delivery Rate 10/20/18 97.8 92 18 101/57 100 10:59 (72) 10/20/18 Nasal 2.0 08:11 Cannula 10/19/18 100 01:15 Intake and Output 10/19/18 10/19/18 10/20/18 1515:00 23:00 07:00 IntakeIntake Total 100 ml OutputOutput Total 5400 ml BalanceBalance 100 ml -5400 ml Constitutional: alert, oriented, frail, other (Chronically ill-appearing) Psych: nl mood/affect; No anxiety Head: normocephalic, atraumatic Eyes: nl conjunctiva, EOMI, nl lids, nl sclera ENMT: nl external ears & nose, nl lips & teeth, mucosa pink and moist Neck: supple, non-tender, jvd Respiratory: normal air movement; No congested cough, No intercostal retraction, No labored breathing Cardiovascular: regular rate and rhythm, nl pulses; No edema Gastrointestinal: soft, non-tender, other (PD catheter (no paty-incisional erythema/drainage from site); paraumbilical hernia); No distended Genitourinary - Female: nl external genitalia Musculoskeletal: nl extremities to inspection; No joint tenderness Extremities: normal pulses Neurological: nl mental status, nl speech, nl strength Skin: nl turgor, ecchymosis Results Result Diagram: 10/20/18 0558 10/20/18 0557 Results 24hrs Laboratory Tests Test 10/19/18 14:07 10/19/18 17:13 10/19/18 22:02 10/20/18 00:10 White Blood 3.9 L 2.9 #L 4.1 #L Count Red Blood Count 2.87 #L 2.21 #L 3.23 #L Hemoglobin 9.1 #L 7.1 #L 10.5 #L Hematocrit 28.7 #L 21.8 #L 31.9 #L Mean 100.0 98.6 98.8 Corpuscular Volume Mean 31.7 32.1 32.5 Corpuscular Hemoglobin Mean 31.7 L 32.6 32.9 Corpuscular Hemoglobin Conc ent Red Cell 20.1 #H 20.3 H 18.7 H Distribution Width Platelet Count 21 #*L 16 #*L 18 *L Mean Platelet 10.6 H Volume Immature 0.300 0.300 1.000 H Granulocytes % Neutrophils % 78.2 H Segmented 70 73 Neutrophils % (Manual) Band 17 H 7 H Neutrophils % (Manual) Lymphocytes % 16.6 Lymphocytes % 12 L 15 (Manual) Monocytes % 3.5 Monocytes % 1 (Manual) Eosinophils % 0.7 Basophils % 0.7 Nucleated Red 0.0 0.0 1 H Blood Cells % Immature 0.010 0.010 0.040 H Granulocytes # Neutrophils # 2.3 Neutrophils # 2.8 3.0 (Manual) Band 0.6 0.2 Neutrophils # Lymphocytes 0.4 L 0.6 L (Manual) Lymphocytes # 0.5 L Monocytes # 0.1 L Monocytes # 0.0 L (Manual) Eosinophils # 0.0 Basophils # 0.0 Nucleated Red 0.0 Blood Cells # Platelet SIG DECREASED NORMAL Estimate Poikilocytosis 1+ 1+ Anisocytosis 2+ 2+ Macrocytosis 1+ Eosinophils % 5 (Manual) Giant Platelets 11 H Polychromasia 1+ Microcytosis 1+ Stool Occult NEGATIVE Blood Test 10/20/18 05:57 10/20/18 05:58 10/20/18 08:53 Sodium Level 141 Potassium Level 4.0 Chloride Level 105 Carbon Dioxide 27 Level Anion Gap 9 Blood Urea 24 #H Nitrogen Creatinine 2.44 #H Est Glomerular 20 L Filtrat Rate mL/min Glucose Level 96 Calcium Level 9.0 Magnesium Level 1.8 Total Bilirubin 0.5 Direct 0.00 Bilirubin Indirect 0.5 Bilirubin Aspartate Amino 14 L Transf (AST/SGO T) Alanine 24 Aminotransferas e (ALT/SGPT) Alkaline 99 Phosphatase Total Protein 5.9 L Albumin 3.1 L Globulin 2.80 Albumin/Globuli 1.10 n Ratio Triglycerides 73 Level Cholesterol 73 L Level LDL 30 Cholesterol, Calculated HDL Cholesterol 28 L Cholesterol/HDL 2.6 Ratio Thyroid 12.900 H Stimulating Hormone (TSH) HIV (1&2) NEGATIVE Antibody White Blood 4.6 L Count Red Blood Count 3.36 L Hemoglobin 10.9 L Hematocrit 32.9 L Mean 97.9 Corpuscular Volume Mean 32.4 Corpuscular Hemoglobin Mean 33.1 Corpuscular Hemoglobin Conc ent Red Cell 19.3 H Distribution Width Platelet Count 19 *L Mean Platelet Volume Immature 0.200 Granulocytes % Neutrophils % Segmented 45 Neutrophils % (Manual) Band 12 H Neutrophils % (Manual) Lymphocytes % Lymphocytes % 30 (Manual) Reactive 11 H Lymphocytes % (Manual) Monocytes % Eosinophils % Eosinophils % 2 (Manual) Basophils % Nucleated Red 0.0 Blood Cells % Immature 0.010 Granulocytes # Neutrophils # Neutrophils # 2.1 (Manual) Band 0.5 Neutrophils # Lymphocytes 1.3 (Manual) Lymphocytes # Reactive 0.5 H Lymphocytes # Monocytes # Eosinophils # Basophils # Nucleated Red Blood Cells # Platelet SIG DECREASED Estimate Giant Platelets 10 H Poikilocytosis 1+ Anisocytosis 1+ Macrocytosis 1+ Hemoglobin A1c 4.9 Lab Scanned BLOOD TRANSFUS Report ION Medications Medication Current Medications IV Flush (NS 3 ml) 3 ml PER PROTOCOL IV ; Start 10/19/18 at 03:00 Ondansetron HCl (Zofran Inj) 4 mg Q6H PRN IV NAUSEA/VOMITING; Start 10/19/18 at 03:00 Acetaminophen (Tylenol Tab) 650 mg Q6H PRN PO .PAIN 1-3 OR TEMP; Start 10/19/18 at 03:00 Docusate Sodium (Colace) 100 mg Q12H PRN PO .CONSTIPATION; Start 10/19/18 at 03:00 Bisacodyl (Dulcolax) 5 mg DAILY PRN PO .CONSTIPATION; Start 10/19/18 at 03:00 Metronidazole (Flagyl) 250 mg Q8 PO Last administered on 10/20/18at 05:38; Admin Dose 250 MG; Start 10/19/18 at 14:00 Miscellaneous Information (Pending Santyl Order For Wound Care) This patient danielle... PRN PRN XX WOUND CARE; Start 10/19/18 at 12:30 Levofloxacin (Levaquin) 250 mg Q48H PO ; Start 10/21/18 at 06:30 Epoetin Margarito (Epogen (Esrd)) 10,000 units MoWeFr@17 SC ; Start 10/21/18 at 17:00 Amiodarone HCl (Cordarone) 200 mg BID PO ; Start 10/20/18 at 11:00 Folic Acid (Folic Acid) 1 mg DAILY PO ; Start 10/20/18 at 11:00 Levothyroxine Sodium (Synthroid) 75 mcg BEFORE BREAKFAST PO ; Start 10/21/18 at 07:00 Multivit/Ca Carb/ B Cmplx/FA/Prenat (Iram-Xiomara) 1 tab DAILY PO ; Start 10/20/18 at 11:00 Pantoprazole (Protonix Tab) 40 mg DAILY@0600 PO ; Start 10/20/18 at 11:00 RADHA MEJIA NP Oct 20, 2018 13:34
[2018-10-20] MEDS: PANTOPRAZOLE (EC) 40 MG TAB PO SCH (13:49)
[2018-10-20] MEDS: MULTIVIT/CA CARB/B CMPLX/FA TAB PO SCH (13:49)
[2018-10-20] MEDS: FOLIC ACID 1 MG TAB PO SCH (13:50)
[2018-10-20] MEDS: AMIODARONE 200 MG TAB PO SCH ×2 (13:50→21:15)
--- NOTE | 2018-10-20 21:20 | CONS ---
DATE OF ADMISSION: 10/19/2018 DATE OF CONSULTATION: 10/20/2018 REASON FOR CONSULTATION: Pancytopenia. REQUESTING PHYSICIAN: Dr. Pierre Jim and also Amanda Louis, nurse practitioner. Dear Dr. Hoffman and Ms. Louis, Thank you very much for asking me to see this very interesting and pleasant patient in hematologic co nsultation. As you know, Ms. Renee is a 58-year-old female who has a long history of chronic kidney disease. The patient has actually been on dialysis for 27 years. She initially was on hemodialysis and then was switched to peritoneal dialysis for 2 years. The patient's last peritoneal dialysis wa s in September of 2017. Since that time, the patient has been back on hemodialysis. The patient is admitted to [facility] at this time with complaints of increasing we akness and shortness of breath. The patient denies that she had any fevers or chills. She has not had any cough or sputum production . On admission, the patient had a white count of 4700 with 76% neutrophils, 9% bands, 11% lymphocytes, hemoglobin 7.4, hematocrit 22.5, MCV 106.6, MCH 35.1, MCHC 32.9, RDW 16.2 and platelet count was 25,0 00. The patient has since received 2 units of packed red blood cells and 1 unit of platelet pheresis. To day, the patient's white count is 4600 with 45% neutrophils, 12% bands and 30% lymphocytes with 11 re active lymphocytes. Hemoglobin was 10.9, hematocrit 32.9 and platelet count 19,000. Other laboratory on admission included a protime of 16.2 seconds, INR of 1.29, PTT 40.3 seconds. Kimberly gilles panel on admission included a sodium 137, potassium 5.1, BUN 42, creatinine 4.30. Total bilir ubin 0.3, direct bilirubin 0, AST 19, ALT 19, alkaline phosphatase 93 and lactic acid was 3.3. The patient did undergo a CT scan of the abdomen and pelvis which showed loculated ascites with compr essed right and hepatic lobes compressed by the loculated ascites. There was also extensive peritone al cath calcifications. A peritoneal dialysis catheter was in place. There was diffuse generalized anasarca. The spleen was normal in size. An ultrasound-guided paracentesis was done. It is not amadou ar if this was done before or after the CAT scan. There was 4.5 liters of serous fluid aspirated and discarded. Apparently no fluid was sent to the lab for culture or chemical analysis. Chest x-rays do show cardiomegaly and some pulmonary vascular congestion. There were also small bilateral pleural effusions. As noted, the patient has had chronic kidney disease for 27 years and has been on some sort of dialys is since that time. The etiology of the patient's renal disease, apparently is hypertension. The patient has recently had an AV fistula formed in the left femoral area. This was done [facility] 3 or 4 weeks ago. This was done at [facility]. Postoperatively, there was some type of infectio n. The patient required IV antibiotics. Since that time, the patient has had decreased appetite wit h some nausea. This has improved, though, since the paracentesis. The patient is presently on the transplant list at [facility]. The patient's sons, however, are veronica ling to serve as donors if they match. The remainder of the patient's past history is relatively unclear. She has had the renal disease as well as hypertension. She denies any other medical problems, as does the family, but the patient robins s have a pacemaker in place. MEDICATIONS AT THE TIME OF ADMISSION INCLUDED: 1. Azithromycin 250 mg daily. 2. Ranitidine 150 mg at hours of sleep. 3. Folic acid 1 mg daily. 4. Amiodarone 200 mg b.i.d. 5. Pantoprazole 40 mg daily. 6. Amlodipine 5 mg daily. 7. Levothyroxine 75 mcg daily. ALLERGIES: PATIENT IS ALLERGIC TO PENICILLIN, TAZOBACTAM AND VANCOMYCIN. PAST SURGICAL HISTORY: Has included placement of pacemaker as well as a previous AV fistulas. The p atdeep has also had placement of the dialysis catheter in the right femoral area. That was first arabella luis 1 year ago. As noted, 3 or 4 weeks ago, the patient had an AV fistula performed in the left femo ral area. PHYSICAL EXAMINATION: GENERAL: At this time reveals a chronically ill-appearing female who, at this time, is in no acute d istress. VITAL SIGNS: Temperature 96.4, pulse 102 per minute and regular, respirations 20, blood pressure 101 /64, pulse oximetry is 96% on 3 liters by nasal cannula. SKIN: There is diffuse hyperpigmentation. HEENT: Normocephalic. No evidence of trauma. Pupils equal, round, reactive to light and accommodat ion. Sclerae nonicteric. Oral mucosa is moist without lesions. Tongue is well papillated. No ging ival hyperplasia, no hypertrophy of Waldeyer's ring. Oral mucosa and conjunctivae are pale. NECK: Supple. No jugular venous distention or thyroid enlargement. CHEST: No pain on percussion of spine, sternum, clavicles or ribs. There are decreased breath sound s in both bases. No wheezes or rubs are heard. HEART: Sinus tachycardia. No S3, S4 or murmurs. No rubs. There is a pacemaker in place in the lef t upper chest. BREASTS: Atrophic. NODES: No palpable lymphadenopathy. ABDOMEN: Soft. There is a peritoneal catheter in the left abdomen. There is no tenderness at the i nsertion site. There is a 3 cm firm umbilical hernia palpable. It is not reducible. Feels almost c alcified. No bowel sounds are heard over this hernia. EXTREMITIES: No clubbing, edema or cyanosis. There is a recent AV fistula formation in the left fem oral area, which is covered with a dressing. It is somewhat tender to the touch. Dressing is dry. There is a Perm-A-Cath in the right femoral area. No erythema or tenderness at the insertion site. NEUROLOGIC: Generalized weakness, but no focal neurologic abnormalities. Peripheral smear has been reviewed. There is a red cell morphology does demonstrate a mild anisocyto sis and poikilocytosis. There is some polychromasia as well as hypochromasia. There are some mild m acrocytes seen. There are no fragmented red blood cells or spherocytes. White blood cells are mildl y decreased. There is a left shift with increased bands. The neutrophils demonstrate toxic granulat ion and Dohle bodies. There are also some atypical appearing lymphs, which are very basophilic. Arabella telets are markedly decreased with large platelet forms seen. DISCUSSION: This patient has pancytopenia. The patient's white count is mildly decreased, with a le ft shift with increased bands. Patient had a hemoglobin of 6.2 on admission with some macrocytosis. Platelets are decreased and there are large platelet forms seen. Review of the peripheral smear does show toxic granulation and Dohle bodies suggesting an infection, but the patient has not been febrile and thus far cultures have been negative. Review of the old records does demonstrate that the patient was seen here in the emergency room for " anemia" on 08/10/2018. At that time, however, the patient had a hemoglobin of 11.2 and hematocrit 34 .9, MCV was 109.7. Patient's platelet count at that time was 66 with an MPV of 12.7. The patient has been anemic in the past but has not required transfusions for a long time. She has, however, been receiving erythropoietin as part of her dialysis. This may account for the macrocytosi s and some polychromasia seen. The patient does have macrocytosis and pancytopenia, but there are no changes to suggest a megaloblas tic process. The patient has been on folic acid. We will check a B12 level. The patient is markedly thrombocytopenic at this time, but was thrombocytopenic 2 months ago, but not to the same degree. When the patient was here 2 months ago, the MPV was increased. Although not re corded on this admission CBC. Review of the slide does show giant platelets suggesting increased arabella telet production. It is unclear why the patient's platelet count is decreased. There certainly appe ars to be a component of septicemia, but also other possibilities include an underlying peripheral pl atelet destruction. The patient does not have splenomegaly, so therefore the patient's thrombocytope hector cannot be on the basis of splenic sequestration. Platelet antibodies certainly could be an etiol ogy. The patient also likely receives heparin with her dialysis and could have heparin-induced thro mbocytopenia. The patient also has a mildly prolonged PTT. This could be on the basis of heparin exposure with scott lysis. We will obtain a 50/50 PTT and a thrombin time. This will help to evaluate the etiology for prolonged PTT versus as from either a lupus anticoagulant versus heparin-induced prolongation. Studies ordered at this time include an KAMRYN, a heparin-induced thrombocytopenia panel, platelets, ant ibody panel, B12 level, 50/50 PTT and thrombin time. Once again, thank you very much for the opportunity of participating in the medical care of this very pleasant patient. I will be happy to follow this patient with you and assist in her hematologic evaluation and follow up as necessary. Dictated By: SHANICE GODINEZ MD, SR/NTS Conf#: [id number] [facility]#: [id number] CC: HARI CRUZ MD; AMANDA LOUIS NP; CHANDANA HOFFMAN MD;*[facility]*
[2018-10-21] VITALS (25 sets, daily range): BP systolic 90–126; BP diastolic 51–67; PULSE 82–99; RESP 18–20; Ht 154.9 cm; Wt 38.1 kg
[2018-10-21] MEDS: metroNIDAZOLE 250 MG TAB PO SCH ×4 (06:19→22:00)
[2018-10-21] MEDS: LEVOTHYROXINE 75 MCG TAB PO SCH (06:19)
[2018-10-21] MEDS: LEVOFLOXACIN 250 MG TAB PO SCH (06:19)
[2018-10-21] MEDS: PANTOPRAZOLE (EC) 40 MG TAB PO SCH (06:19)
--- NOTE | 2018-10-21 06:40 | CONS ---
Assessment/Plan Assessment/Plan Hospital Course (Demo Recall) 1) acute SOB this is likely multifactorial she is anemic, her son has a cough doubt she has a bacterial infection but can not rule this out this time CT abd/pelv shows compressive atelectasis from her pleural effusions but a pnm could be hiding I will order respiratory cx get nasal PCR and nasal MRSA continue with levaquin and add flagyl d/c aztreanom check procalcitonin in a.m. pt to get tx today 10/20 - breathing is better, post paracentesis and blood tx await sputum cx on levaquin/flagyl, will repeat CXR and if improved consider d/c of antibiotics 10/21 - CXR showed slight increase in pulmonary vascular congestion sputum cx was never obtained, nasal was neg for MRSA await procalcitonin and if neg then can d/c antibiotics continue levo/flagyl at present (day 3) 2) anemia of chronic disease blood tx has been ordered 3) ESRD 4) loculated ascitic fluid from prior peritoneal dialysis if pt develops fevers or elevated WBC may need to due paracentesis to r/o infection 10/20 - paracentesis performed but no studies done on it no abd pain, fevers or elevated WBC, doubt septic peritonitis 10/21 - agree with removal of PD catheter 5) CAD with pacer 6)HTN 7) thrombocytopenia this is not new Consultation Date/Type/Reason Admit Date/Time Oct 19, 2018 at 02:51 Initial Consult Date 10/19/18 Type of Consult ID Requesting Provider: DOMINIC LOUIS NP Date/Time of Note DATE: 10/21/18 TIME: 06:37 24 HR Interval Summary Free Text/Dictation pt denies SOB no V, D no abd pain Exam/Review of Systems Exam Vitals Vital Signs Date Temp Pulse Resp B/P (MAP) Pulse Ox O2 O2 Flow FiO2 Time Delivery Rate 10/21/18 Nasal 2.0 04:53 Cannula 10/21/18 98 04:43 10/21/18 97.4 19 108/62 95 04:00 (77) 10/19/18 100 01:15 Intake and Output 10/20/18 10/20/18 10/21/18 1515:00 23:00 07:00 IntakeIntake Total 480 ml BalanceBalance 480 ml Constitutional: alert, oriented Eyes: nl sclera ENMT: mucosa pink and moist Respiratory: clear to auscultation, other (decreased BS at L base) Cardiovascular: regular rate and rhythm Gastrointestinal: soft, other (BS present, not tender) Results Result Diagram: 10/21/18 0545 10/20/18 0557 Results 24hrs Laboratory Tests Test 10/20/18 08:53 10/21/18 05:45 Lab Scanned Report BLOOD TRANSFUSION White Blood Count 4.6 L Red Blood Count 3.31 L Hemoglobin 10.7 L Hematocrit 32.5 L Mean Corpuscular Volume 98.2 Mean Corpuscular Hemoglobin 32.3 Mean Corpuscular Hemoglobin Concent 32.9 Red Cell Distribution Width 19.5 H Platelet Count 22 *L Mean Platelet Volume 11.7 H Immature Granulocytes % 0.400 Neutrophils % Lymphocytes % Monocytes % Eosinophils % Basophils % Nucleated Red Blood Cells % 0.0 Immature Granulocytes # 0.020 Neutrophils # Lymphocytes # Monocytes # Eosinophils # Basophils # Nucleated Red Blood Cells # Activated Partial Thromboplast Time 39.0 H Mix PTT Normal Plasma Immediate Pending Thrombin Time Pending Medications Medication Current Medications IV Flush (NS 3 ml) 3 ml PER PROTOCOL IV ; Start 10/19/18 at 03:00 Ondansetron HCl (Zofran Inj) 4 mg Q6H PRN IV NAUSEA/VOMITING; Start 10/19/18 at 03:00 Acetaminophen (Tylenol Tab) 650 mg Q6H PRN PO .PAIN 1-3 OR TEMP; Start 10/19/18 at 03:00 Docusate Sodium (Colace) 100 mg Q12H PRN PO .CONSTIPATION; Start 10/19/18 at 03:00 Bisacodyl (Dulcolax) 5 mg DAILY PRN PO .CONSTIPATION; Start 10/19/18 at 03:00 Metronidazole (Flagyl) 250 mg Q8 PO Last administered on 10/21/18at 06:19; Admin Dose 250 MG; Start 10/19/18 at 14:00 Miscellaneous Information (Pending Santyl Order For Wound Care) This patient danielle... PRN PRN XX WOUND CARE; Start 10/19/18 at 12:30 Levofloxacin (Levaquin) 250 mg Q48H PO Last administered on 10/21/18at 06:19; Admin Dose 250 MG; Start 10/21/18 at 06:30 Epoetin Margarito (Epogen (Esrd)) 10,000 units MoWeFr@17 SC ; Start 10/21/18 at 17:00 Amiodarone HCl (Cordarone) 200 mg BID PO Last administered on 10/20/18at 21:15; Admin Dose 200 MG; Start 10/20/18 at 11:00 Folic Acid (Folic Acid) 1 mg DAILY PO Last administered on 10/20/18at 13:50; Admin Dose 1 MG; Start 10/20/18 at 11:00 Levothyroxine Sodium (Synthroid) 75 mcg BEFORE BREAKFAST PO Last administered on 10/21/18 06:19; Admin Dose 75 MCG; Start 10/21/18 at 07:00 Multivit/Ca Carb/ B Cmplx/FA/Prenat (Iram-Xiomara) 1 tab DAILY PO Last administered on 10/20/18at 13:49; Admin Dose 1 TAB; Start 10/20/18 at 11:00 Pantoprazole (Protonix Tab) 40 mg DAILY@0600 PO Last administered on 10/21/18 06:19; Admin Dose 40 MG; Start 10/20/18 at 11:00 AJIT DICKINSON MD Oct 21, 2018 06:40
--- NOTE | 2018-10-21 08:09 | PN ---
Date/Time of Note Date/Time of Note DATE: 10/21/18 TIME: 08:06 Assessment/Plan Lines/Catheters IV Catheter Type (from [facility]): permacath Moon in Place (from [facility]): No Assessment/Plan Chief Complaint/Hosp Course 1. ESRD with HD, status post PD (no longer in use over 1 year) -Limit nephrotoxic meds -Renally dose meds -HD Per renal -DC PD once patient medically optimized--thrombocytopenia improved 2. Pancytopenia: plt improved -Hematology consult noted > per heme -Supportive, transfusions as needed 3.Large volume loculated ascites: Status post paracentesis -Fluid management -Paracentesis as needed -DC PD as above 4. Shortness of breath with Bilateral pleural effusions and possible PNA: -abx per ID -Fluid management -Consider thoracentesis if unimproved -consider pulmonary consult 5. Hypothyroidism: -Medical management 6. Hypertension history: -Med management Thank you. Patient seen and examined in collaboration with Dr. Matthew Voss. Subjective 24 Hr Interval Summary No fevers, chills, sob, congested cough, cp, palpitations, danielle, dizziness, n/v/d/dysuria. Seen by hematology yesterday. Platelets improved slightly. Exam/Review of Systems Vital Signs Vitals Vital Signs Date Temp Pulse Resp B/P (MAP) Pulse Ox O2 O2 Flow FiO2 Time Delivery Rate 10/21/18 97.5 91 18 116/60 100 Nasal 07:21 (78) Cannula 10/21/18 2.0 04:53 10/19/18 100 01:15 Intake and Output 10/20/18 10/20/18 10/21/18 1515:00 23:00 07:00 IntakeIntake Total 480 ml 300 ml OutputOutput Total 1 ml BalanceBalance 480 ml 299 ml Exam Free Text/Dictation Constitutional: alert, oriented, frail, other (Chronically ill-appearing) Psych: nl mood/affect; No anxiety Head: normocephalic, atraumatic Eyes: nl conjunctiva, EOMI, nl lids, nl sclera ENMT: nl external ears & nose, nl lips & teeth, mucosa pink and moist Neck: supple, non-tender, jvd Respiratory: normal air movement; No congested cough, No intercostal retraction, No labored breathing Cardiovascular: regular rate and rhythm, nl pulses; No edema Gastrointestinal: soft, non-tender, other (PD catheter (no paty-incisional erythema/drainage from site); paraumbilical hernia); No distended Genitourinary - Female: nl external genitalia Musculoskeletal: nl extremities to inspection; No joint tenderness Extremities: normal pulses Neurological: nl mental status, nl speech, nl strength Skin: nl turgor, ecchymosis Results Result Diagram: 10/21/18 0545 10/21/18 0545 RADHA MEJIA NP Oct 21, 2018 08:09
[2018-10-21] MEDS ORDERED: LEVOFLOXACIN 250MG/D5W (PMX) 50 ML IVPB SCH (08:30)
[2018-10-21] MEDS: MULTIVIT/CA CARB/B CMPLX/FA TAB PO SCH (08:42)
[2018-10-21] MEDS: FOLIC ACID 1 MG TAB PO SCH (08:42)
[2018-10-21] MEDS: AMIODARONE 200 MG TAB PO SCH ×2 (08:43→21:00)
--- NOTE | 2018-10-21 09:02 | PN ---
DATE: 10/21/2018 SUBJECTIVE: The patient is stable, no events overnight. OBJECTIVE: VITAL SIGNS: Blood pressure is 116/60, respirations 18, pulse 91, temperature 97.5. HEENT: Head is normocephalic. NECK: Supple. HEART: Regular rate. LUNGS: Show diminished breath sounds at the base. ABDOMEN: Soft, nontender to palpation without rebound or guarding. EXTREMITIES: Negative for clubbing, cyanosis, no edema. DERMATOLOGIC: No rashes. MUSCULOSKELETAL: No joint effusion. NEUROLOGIC: No change in exam. MEDICATIONS: Reviewed. LABORATORY DATA: Reviewed. Sodium 142, BUN 29, creatinine 3.05. White count 4.6, hemoglobin 10.7, platelet count is 22. ASSESSMENT AND PLAN: 1. End-stage renal disease. Plan is for hemodialysis today. We will dialyze 3 hours 4k bath, calci um 2.5. 2. Anemia. Etiology is likely multifactorial secondary to end-stage renal disease, possible primary blood dyscrasia. We will continue Epogen. Follow up with hematology. 3. Mineral bone disorder, monitor calcium and phosphorus levels. 4. Lactic acidosis, improving. Continue to monitor. 5. Volume overload. Continue ultrafiltration with dialysis. 6. Dialysis access. The patient has peritoneal catheter with clear fluid. The patient was seen by general surgery with possible removal of PD catheter. The patient currently has a Perm-A-Cath in the right femoral vein. 7. Pancytopenia, etiology is unclear. Follow up with hematology. 8. Systemic inflammatory response syndrome, possible sepsis. Continue current antibiotic regimen. 9. Coronary artery disease. 10. History of arrhythmia, status post pacemaker. 11. Hypertension. Dictated By: SARIKA JOINER DO NR/NTS Conf#: [id number] DID#: [id number] CC: HARI CRUZ MD; HEVER CASTILLO MD;*EndCC*
--- NOTE | 2018-10-21 09:18 | PN ---
Date/Time of Note Date/Time of Note DATE: 10/21/18 TIME: 09:16 Assessment/Plan VTE Prophylaxis Risk score (from Ns)>0 risk: 3 SCD applied (from Ns): Yes Pharmacological prophylaxis: NA/contraindicated Pharm contraindication: bleeding Lines/Catheters IV C[facility]ter Type (from [facility] permacath Urinary Cath still in place: No Assessment/Plan Hospital Course SUBJECTIVE: No acute overnight episodes. No fevers. On 2 L nasal cannula. OBJECTIVE: Vital signs-see below PHYSICAL EXAM: Constitutional: Frail looking bandage speaking female, not in acute distress. Psych: nl mood/affect, no complaints Head: atraumatic, normocephalic Eyes: nl conjunctiva, nl sclera ENMT: mucosa pink and moist, nl external ears & nose Neck: non-tender, supple Respiratory: clear to auscultation, normal air movement Cardiovascular: nl pulses, regular rate and rhythm Gastrointestinal: +Distended/Tender/firm. +umblical hernia. +BS Musculoskeletal/extremities: 4+ Edema/Anasarca BLEs. no focal deficit. Normal pulses,no cyanosis Neurological: Alert oriented 3,nl speech, nl strength Skin: nl turgor ASSESSMENT/PLAN:58 yo female w/ESRD/HD (M,W,F),unused PD cath in place,ascites requiring paracetesis, here w/SOB,cough... 1. Loculated ascites,likely from calcified/sclerosed PD catheter -stable liver fxn, no evidence of cirrhosis,no fever/chills to suspect peritonitis. -Status post paracentesis 10/19/2018 with 4.5 L, fluid studies never sent for unclear reasons. -Best recommendation is to take out this PD catheter , will consult surgery=> profound thrombocytopenia preclude her from surgery at present. 2. ESRD, hemodialysis patient (MWF) -Nephrology managing. Plan is hemodialysis in a.m. -cont. phosphate binders -Patient also has unused/calcified peritoneal dialysis catheter, which needs to come out, however at high risk for surgery 2/2 profound thrombocytopenia 3. Profound anemia/thrombocytopenia -Etiology unclear -Being worked up with manager art. If patient is going for surgical intervention for removal of PD catheter and hernia repair, this should be corrected as soon as possible. We will follow-up with hematology recommendation regarding further transfusion/immunoglobulin products if indicated. 4.Volume overload/pleural effusion 2/2 ESRD -Cont.UF for fluid removal. 5.Chronic Periumbilical hernia -No evidence of strangulation/incarceration -This also might need eventual surgical repair probably at a later time??, once again pt's profound thrombocytopenia may precludes her from any major surgery at this point=>will d/w surgery 6.Upper respiratory infection -stable. 7. Hypothyroidism -Resume Synthroid 8. Arrhythmias, status post pacemaker placed. -Continue amiodarone. Not a candidate for anticoagulation secondary to thromb ocytopenia/anemia/high risk bleeding. 9. Hypertension -Stable. Discontinue Norvasc at home secondary to peripheral edema -Currently her blood pressure is borderline low, does not need any antihyper tensives. DVT prophylaxis: SCDs PUD prophylaxis: PPI CODE STATUS: Full code Diet: 2 g sodium diet/renal diet. Disposition: Continue current management. Continue ultrafiltration. Follow-up hematology recommendation no thrombocytopenia correction and follow-up with surgery regarding appropriate timing for PD catheter removal and ventral hernia repair. Patient was seen in collaboration with Dr. Jay. Result Diagram: 10/21/18 0545 10/21/18 0545 Results 24hrs Laboratory Tests Test 10/21/18 05:44 10/21/18 05:45 Vitamin B12 Level 945 H White Blood Count 4.6 L Red Blood Count 3.31 L Hemoglobin 10.7 L Hematocrit 32.5 L Mean Corpuscular Volume 98.2 Mean Corpuscular Hemoglobin 32.3 Mean Corpuscular Hemoglobin Concent 32.9 Red Cell Distribution Width 19.5 H Platelet Count 22 *L Mean Platelet Volume 11.7 H Immature Granulocytes % 0.400 Neutrophils % Lymphocytes % Monocytes % Eosinophils % Basophils % Nucleated Red Blood Cells % 0.0 Immature Granulocytes # 0.020 Neutrophils # Lymphocytes # Monocytes # Eosinophils # Basophils # Nucleated Red Blood Cells # Activated Partial Thromboplast Time 39.0 H Mix PTT Normal Plasma Immediate Thrombin Time 16.1 Sodium Level 142 Potassium Level 3.9 Chloride Level 107 Carbon Dioxide Level 24 Anion Gap 11 Blood Urea Nitrogen 29 H Creatinine 3.05 H Est Glomerular Filtrat Rate mL/min 16 L Glucose Level 93 Calcium Level 9.2 Magnesium Level 1.9 Exam/Review of Systems Exam Vitals Vital Signs Date Temp Pulse Resp B/P (MAP) Pulse Ox O2 O2 Flow FiO2 Time Delivery Rate 10/21/18 97.5 91 18 116/60 100 Nasal 07:21 (78) Cannula 10/21/18 2.0 04:53 10/19/18 100 01:15 Intake and Output 10/20/18 10/20/18 10/21/18 1515:00 23:00 07:00 IntakeIntake Total 480 ml 300 ml OutputOutput Total 1 ml BalanceBalance 480 ml 299 ml Results Results 24hrs Laboratory Tests Test 10/21/18 05:44 10/21/18 05:45 Vitamin B12 Level 945 H White Blood Count 4.6 L Red Blood Count 3.31 L Hemoglobin 10.7 L Hematocrit 32.5 L Mean Corpuscular Volume 98.2 Mean Corpuscular Hemoglobin 32.3 Mean Corpuscular Hemoglobin Concent 32.9 Red Cell Distribution Width 19.5 H Platelet Count 22 *L Mean Platelet Volume 11.7 H Immature Granulocytes % 0.400 Neutrophils % Lymphocytes % Monocytes % Eosinophils % Basophils % Nucleated Red Blood Cells % 0.0 Immature Granulocytes # 0.020 Neutrophils # Lymphocytes # Monocytes # Eosinophils # Basophils # Nucleated Red Blood Cells # Activated Partial Thromboplast Time 39.0 H Mix PTT Normal Plasma Immediate Thrombin Time 16.1 Sodium Level 142 Potassium Level 3.9 Chloride Level 107 Carbon Dioxide Level 24 Anion Gap 11 Blood Urea Nitrogen 29 H Creatinine 3.05 H Est Glomerular Filtrat Rate mL/min 16 L Glucose Level 93 Calcium Level 9.2 Magnesium Level 1.9 Medications Medication Current Medications IV Flush (NS 3 ml) 3 ml PER PROTOCOL IV ; Start 10/19/18 at 03:00 Ondansetron HCl (Zofran Inj) 4 mg Q6H PRN IV NAUSEA/VOMITING; Start 10/19/18 at 03:00 Acetaminophen (Tylenol Tab) 650 mg Q6H PRN PO .PAIN 1-3 OR TEMP; Start 10/19/18 at 03:00 Docusate Sodium (Colace) 100 mg Q12H PRN PO .CONSTIPATION; Start 10/19/18 at 03:00 Bisacodyl (Dulcolax) 5 mg DAILY PRN PO .CONSTIPATION; Start 10/19/18 at 03:00 Metronidazole (Flagyl) 250 mg Q8 PO Last administered on 10/21/18at 06:19; Admin Dose 250 MG; Start 10/19/18 at 14:00 Miscellaneous Information (Pending Santyl Order For Wound Care) This patient danielle... PRN PRN XX WOUND CARE; Start 10/19/18 at 12:30 Levofloxacin (Levaquin) 250 mg Q48H PO Last administered on 10/21/18at 06:19; Admin Dose 250 MG; Start 10/21/18 at 06:30 Epoetin Margarito (Epogen (Esrd)) 10,000 units MoWeFr@17 SC ; Start 10/21/18 at 17:00 Amiodarone HCl (Cordarone) 200 mg BID PO Last administered on 10/21/18at 08:43; Admin Dose 200 MG; Start 10/20/18 at 11:00 Folic Acid (Folic Acid) 1 mg DAILY PO Last administered on 10/21/18at 08:42; Admin Dose 1 MG; Start 10/20/18 at 11:00 Levothyroxine Sodium (Synthroid) 75 mcg BEFORE BREAKFAST PO Last administered on 10/21/18at 06:19; Admin Dose 75 MCG; Start 10/21/18 at 07:00 Multivit/Ca Carb/ B Cmplx/FA/Prenat (Iram-Xiomara) 1 tab DAILY PO Last administered on 10/21/18at 08:42; Admin Dose 1 TAB; Start 10/20/18 at 11:00 Pantoprazole (Protonix Tab) 40 mg DAILY@0600 PO Last administered on 10/21/18 06:19; Admin Dose 40 MG; Start 10/20/18 at 11:00 DOMINIC LOUIS NP Oct 21, 2018 09:18
[2018-10-21] MEDS ORDERED: IMMUNE GLOBULIN (HUMAN) 6 GM INJ IV ONE (17:00)
[2018-10-21] MEDS ORDERED: IMMUNE GLOBULIN IV SCH (22:00)
[2018-10-21] MEDS ORDERED: WATER STERILE FOR IV SCH (22:00)
[2018-10-21] MEDS: EPOETIN 10000 UNITS/1 ML INJ (ESRD) SC SCH (22:00)
[2018-10-22] VITALS (14 sets, daily range): BP systolic 98–133; BP diastolic 57–86; PULSE 90–106; RESP 16–20
[2018-10-22] MEDS: LEVOTHYROXINE 75 MCG TAB PO SCH (06:16)
[2018-10-22] MEDS: PANTOPRAZOLE (EC) 40 MG TAB PO SCH (06:16)
[2018-10-22] MEDS: metroNIDAZOLE 250 MG TAB PO SCH ×3 (06:16→22:58)
--- NOTE | 2018-10-22 07:33 | PN ---
DATE: 10/21/2018 SUBJECTIVE: The patient is presently undergoing hemodialysis. She denies any abdominal pain. OBJECTIVE: GENERAL: The patient is a well-developed, but chronically ill-appearing female who is in no acute di stress. VITAL SIGNS: Temperature 97.5 axillary, pulse is 90 per minute and regular, respirations 18, blood p ressure 105/66, pulse oximetry 98% on 2 liters. SKIN: Diffuse hyperpigmentation. No obvious rashes. HEENT: Normocephalic. No evidence of trauma. Pupils equal, round, reactive to light and accommodat ion. Sclerae nonicteric. Oral mucosa is moist without lesions. Tongue is well papillated. No ging ival hyperplasia, no hypertrophy or Waldeyer's ring. NECK: Supple. No jugular venous distention or thyroid enlargement. CHEST: Decreased breath sounds in both bases. No rhonchi, wheezes, rales or rubs. No pain on percu ssion of the spine, sternum, clavicles or ribs. HEART: Regular sinus rhythm, no S3 or S4 or murmurs. ABDOMEN: Soft. There are no masses or ascites. There is a firm ventral hernia just inferior to the umbilicus. It is not reducible. No bowel sounds are heard over this hernia. There is a peritoneal dialysis catheter in the left abdomen. No evidence of inflammation at the insertion site. EXTREMITIES: No clubbing, edema or cyanosis. There is a dialysis catheter in the right femoral area , which is presently being used for dialysis. There is also recent AV fistula in the left femoral ar ea. There is covered with a dry surgical dressing. LABORATORY DATA: White count 4600 with an absolute neutrophil count of 3700, hemoglobin 10.7, hemato crit 32.5 and platelet count 22,000. PTT of 39 seconds. Thrombin time 61 seconds. Sodium 142, pota ssium 3.9, creatinine 3.05, BUN 29. Vitamin B12 level is 945. ASSESSMENT: 1. Pancytopenia with significant thrombocytopenia. 2. Chronic kidney disease on hemodialysis. DISCUSSION: I do feel that there is an infectious component to this patient's thrombocytopenia. She has multiple portals for infection including the dialysis catheter in the right femoral area and the recently created AV fistula in the left femoral area and the peritoneal catheter which has been in p lace for year. I do feel, however, that there may be an immune component to the patient's thrombocytopenia as platel ets are large in size. A CBC done in July when the patient was seen in the Emergency Room reveal ed moderate thrombocytopenia at that time with a platelet count of 66,000, but an MPV that was 12.5. This again suggests peripheral destruction. The patient does not have splenomegaly and there does not appear to be a consumptive coagulopathy at this time. It is certainly desirable to try and remove the peritoneal catheter and perhaps also addressed the ab dominal hernia. This cannot be done, however, with the patient's thrombocytopenia. I am still awaiting results of evaluation for heparin-induced thrombocytopenia as well as autoimmune thrombocytopenia. The patient's thrombin time is 16 seconds which rules out heparin as the etiology for the patient's m ild prolongation of PTT. Unfortunately, the PTT of 39 seconds is below the cutoff for doing a 50/50 mixing study to rule out possible inhibitor. As mentioned, I do feel there is some immune component to this patient's thrombocytopenia. She did r eceive a platelet transfusion previously but did not actually have an increment following this. This again suggests possible immune destruction. I would propose giving the patient an empiric trial of IVIG, which may lead to an increase in the pat ient's platelets and allow the surgical procedures. Dictated By: SHANICE GODINEZ MD SR/NTS Conf#: [id number] DID#: [id number] CC: HARI CRUZ MD;*EndCC*
--- NOTE | 2018-10-22 08:27 | PN ---
DATE: 10/22/2018 SUBJECTIVE: The patient is stable, had hemodialysis yesterday, tolerated well. Overnight, the patie nt was noted to be cold, hypothermic, was placed on a Flip Hugger. No other events noted. OBJECTIVE: VITAL SIGNS: Blood pressure is 119/60, respirations 18, pulse 94, temperature 97.6. HEENT: Head is normocephalic. NECK: Supple. HEART: Regular rate. LUNGS: Show diminished breath sounds at the base. ABDOMEN: Soft, nontender to palpation without rebound or guarding. EXTREMITIES: Negative for clubbing, cyanosis, edema. DERMATOLOGIC: No rashes. MUSCULOSKELETAL: No joint effusion. NEUROLOGIC: No change in exam. MEDICATIONS: Reviewed. LABORATORY DATA: Reviewed. The patient's white count is 3.7, hemoglobin 9.7, platelet count 17. ASSESSMENT AND PLAN: 1. End-stage renal disease. The patient had hemodialysis yesterday, tolerated well. Plan is for di alysis tomorrow. 2. Anemia, etiology is multifactorial. Continue to monitor hemoglobin and hematocrit. Continue Epo gen. Follow up with hematology. 3. Mineral bone disorder, monitor calcium and phosphorus levels. 4. Volume overload. Continue ultrafiltration dialysis. 5. Pancytopenia. Etiology is unclear. Per hematology, possible immunologic component to underlying thrombocytopenia. The patient was placed on IVIG, continue to monitor. 6. Systemic inflammatory response syndrome, possible sepsis. Continue current antibiotic regimen. 7. Coronary artery disease. Continue medical management. 8. Arrhythmia, status post pacemaker. 9. History of hypertension. 10. Dialysis access. The patient has peritoneal catheter with noted calcification. The patient was seen by general surgery pending possible PD catheter removal once thrombocytopenia is improved. Donte blue dialysis access is a Perm-A-Cath in right femoral vein. Dictated By: SARIKA JOINRE DO NR/NTS Conf#: [id number] DID#: [id number] CC: HEVER CASTILLO MD; HARI CRUZ MD;*EndCC*
[2018-10-22] MEDS: MULTIVIT/CA CARB/B CMPLX/FA TAB PO SCH (09:40)
[2018-10-22] MEDS: AMIODARONE 200 MG TAB PO SCH ×2 (09:40→21:44)
[2018-10-22] MEDS: FOLIC ACID 1 MG TAB PO SCH (09:40)
[2018-10-22] MEDS ORDERED: IMMUNE GLOBULIN IV SCH ×2 (10:00→11:00)
[2018-10-22] MEDS ORDERED: WATER STERILE FOR IV SCH ×2 (10:00→11:00)
--- NOTE | 2018-10-22 11:16 | PN ---
Date/Time of Note Date/Time of Note DATE: 10/22/18 TIME: 10:50 Assessment/Plan VTE Prophylaxis Risk score (from N[facility])>0 risk: 4 [place] [facility] [place] Pharmacological prophylaxis: NA/contraindicated Pharm contraindication: thrombocytopenia Lines/Catheters IV Catheter Type (from [facility]): PERMACATH Urinary Cath still in place: No Assessment/Plan Hospital Course SUBJECTIVE: No acute overnight episodes. No fevers. On 2 L nasal cannula. OBJECTIVE: Vital signs-see below PHYSICAL EXAM: Constitutional: Frail looking bandage speaking female, not in acute distress. Psych: nl mood/affect, no complaints Head: atraumatic, normocephalic Eyes: nl conjunctiva, nl sclera ENMT: mucosa pink and moist, nl external ears & nose Neck: non-tender, supple Respiratory: clear to auscultation, normal air movement Cardiovascular: nl pulses, regular rate and rhythm Gastrointestinal: +Distended/Tender/firm. +umblical hernia. +BS. Old PD cath taped in place. Musculoskeletal/extremities: 4+ Edema/Anasarca BLEs. no focal deficit. Normal pulses,no cyanosis Neurological: Alert oriented 3,nl speech, nl strength Skin: nl turgor ASSESSMENT/PLAN:58 yo female w/ESRD/HD (M,W,F),unused PD cath in place,ascites requiring paracetesis, here w/SOB,cough... 1. Loculated ascites,likely from calcified/sclerosed PD catheter (chronic PD cath in place>1 yr after being started on HD) -Status post paracentesis 10/19/2018 with 4.5 L, fluid studies never sent for unclear reasons=>stable liver fxn, no evidence of cirrhosis,no fever/chills to suspect peritonitis. -Best recommendation is removal of PD catheter BUT profound thrombocytopenia preclude her from surgery at present. . Will d/w heme regarding plateletpheresis today, if thrombocytopenia cannot be corrected to a desired level stable for major sx in the next 24-48 hrs, will consider oupt heme follow up and further thrombocytopenia work up and once stable, pt can have elective PD cath removal. 2. ESRD, hemodialysis patient (MWF) -Nephrology managing. Plan is hemodialysis in a.m. -cont. phosphate binders -Patient also has unused/calcified peritoneal dialysis catheter, which needs to come out, however at high risk for surgery 2/2 profound thrombocytopenia 3. Pancytopenia w/profound anemia/ thrombocytopenia -Etiology unclear. H/H/wbc stable now, platelets still low... -Being worked up with statistical geneticist for possible immunologic causes.s/p IVIG, still low 4.Volume overload/pleural effusion 2/2 ESRD -clinically stable -Cont.UF for fluid removal. 5.Chronic Periumbilical hernia -No evidence of strangulation/incarceration=.oupt f/u per surgery 6.Upper respiratory infection -stable. 7. Hypothyroidism -on Synthroid 8. Arrhythmias, status post pacemaker placed. -Continue amiodarone. Not a candidate for anticoagulation secondary to thrombocytopenia/anemia/high risk bleeding. 9. Hypertension -Stable. -Currently her blood pressure is borderline low, does not need any antihypertensives. DVT prophylaxis: SCDs PUD prophylaxis: PPI CODE STATUS: Full code Diet: 2 g sodium diet/renal diet. Disposition: This patient needs removal of PD catheter BUT profound thrombocytopenia preclude her from surgery at present. .If thrombocytopenia cannot be corrected to a desired level stable for major sx in the next 24-48 hrs, will consider oupt heme follow up and further thrombocytopenia work up and once stable, pt can have elective PD cath removal. Continue current management. Continue ultrafiltration. F/u nephrology, heme.,surgery recs. Patient was seen in collaboration with Dr. Jay. Result Diagram: 10/22/18 0451 10/22/18 0451 Results 24hrs Laboratory Tests Test 10/22/18 04:51 White Blood Count 3.7 L Red Blood Count 2.98 L Hemoglobin 9.7 L Hematocrit 30.3 L Mean Corpuscular Volume 101.7 H Mean Corpuscular Hemoglobin 32.6 Mean Corpuscular Hemoglobin Concent 32.0 Red Cell Distribution Width 19.6 H Platelet Count 17 #*L Mean Platelet Volume 12.2 H Immature Granulocytes % 0.800 H Neutrophils % Segmented Neutrophils % (Manual) 74 Band Neutrophils % (Manual) 3 Lymphocytes % Lymphocytes % (Manual) 16 Monocytes % Eosinophils % Eosinophils % (Manual) 4 Basophils % Basophils % (Manual) 1 Metamyelocytes % (manual) 1 H Myelocytes % (Manual) 1 H Nucleated Red Blood Cells % 1 H Immature Granulocytes # 0.030 Neutrophils # Neutrophils # (Manual) 2.7 Band Neutrophils # 0.1 Lymphocytes (Manual) 0.5 L Lymphocytes # Monocytes # Eosinophils # Basophils # Basophils # (Manual) 0.0 Metamyelocytes # 0.0 Myelocytes # 0.0 Nucleated Red Blood Cells # Platelet Estimate DECREASED Giant Platelets 2 H Poikilocytosis 1+ Anisocytosis 1+ Macrocytosis 1+ Ovalocytes 1+ Sodium Level 141 Potassium Level 3.6 Chloride Level 105 Carbon Dioxide Level 28 Anion Gap 8 Blood Urea Nitrogen 17 # Creatinine 2.28 H Est Glomerular Filtrat Rate mL/min 22 L Glucose Level 90 Calcium Level 8.6 Exam/Review of Systems Exam Vitals Vital Signs Date Temp Pulse Resp B/P (MAP) Pulse Ox O2 O2 Flow FiO2 Time Delivery Rate 10/22/18 97.6 94 18 119/60 100 07:38 (79) 10/22/18 Nasal 03:30 Cannula 10/21/18 2.0 20:20 10/19/18 100 01:15 Intake and Output 10/21/18 10/21/18 10/22/18 1515:00 23:00 07:00 IntakeIntake Total 480 ml 100 ml 600 ml OutputOutput Total 1400 ml BalanceBalance 480 ml -1300 ml 600 ml Results Results 24hrs Laboratory Tests Test 10/22/18 04:51 White Blood Count 3.7 L Red Blood Count 2.98 L Hemoglobin 9.7 L Hematocrit 30.3 L Mean Corpuscular Volume 101.7 H Mean Corpuscular Hemoglobin 32.6 Mean Corpuscular Hemoglobin Concent 32.0 Red Cell Distribution Width 19.6 H Platelet Count 17 #*L Mean Platelet Volume 12.2 H Immature Granulocytes % 0.800 H Neutrophils % Segmented Neutrophils % (Manual) 74 Band Neutrophils % (Manual) 3 Lymphocytes % Lymphocytes % (Manual) 16 Monocytes % Eosinophils % Eosinophils % (Manual) 4 Basophils % Basophils % (Manual) 1 Metamyelocytes % (manual) 1 H Myelocytes % (Manual) 1 H Nucleated Red Blood Cells % 1 H Immature Granulocytes # 0.030 Neutrophils # Neutrophils # (Manual) 2.7 Band Neutrophils # 0.1 Lymphocytes (Manual) 0.5 L Lymphocytes # Monocytes # Eosinophils # Basophils # Basophils # (Manual) 0.0 Metamyelocytes # 0.0 Myelocytes # 0.0 Nucleated Red Blood Cells # Platelet Estimate DECREASED Giant Platelets 2 H Poikilocytosis 1+ Anisocytosis 1+ Macrocytosis 1+ Ovalocytes 1+ Sodium Level 141 Potassium Level 3.6 Chloride Level 105 Carbon Dioxide Level 28 Anion Gap 8 Blood Urea Nitrogen 17 # Creatinine 2.28 H Est Glomerular Filtrat Rate mL/min 22 L Glucose Level 90 Calcium Level 8.6 Medications Medication Current Medications IV Flush (NS 3 ml) 3 ml PER PROTOCOL IV ; Start 10/19/18 at 03:00 Ondansetron HCl (Zofran Inj) 4 mg Q6H PRN IV NAUSEA/VOMITING; Start 10/19/18 at 03:00 Acetaminophen (Tylenol Tab) 650 mg Q6H PRN PO .PAIN 1-3 OR TEMP; Start 10/19/18 at 03:00 Docusate Sodium (Colace) 100 mg Q12H PRN PO .CONSTIPATION; Start 10/19/18 at 03:00 Bisacodyl (Dulcolax) 5 mg DAILY PRN PO .CONSTIPATION; Start 10/19/18 at 03:00 Metronidazole (Flagyl) 250 mg Q8 PO Last administered on 10/22/18at 06:16; Admin Dose 250 MG; Start 10/19/18 at 14:00 Miscellaneous Information (Pending Santyl Order For Wound Care) This patient danielle... PRN PRN XX WOUND CARE; Start 10/19/18 at 12:30 Levofloxacin (Levaquin) 250 mg Q48H PO Last administered on 10/21/18at 06:19; Admin Dose 250 MG; Start 10/21/18 at 06:30 Epoetin Margarito (Epogen (Esrd)) 10,000 units MoWeFr@17 SC Last administered on 10/21/18at 22:00; Admin Dose 10,000 UNITS; Start 10/21/18 at 17:00 Amiodarone HCl (Cordarone) 200 mg BID PO Last administered on 10/22/18 09:40; Admin Dose 200 MG; Start 10/20/18 at 11:00 Folic Acid (Folic Acid) 1 mg DAILY PO Last administered on 10/22/18 09:40; Admin Dose 1 MG; Start 10/20/18 at 11:00 Levothyroxine Sodium (Synthroid) 75 mcg BEFORE BREAKFAST PO Last administered on 10/22/18at 06:16; Admin Dose 75 MCG; Start 10/21/18 at 07:00 Multivit/Ca Carb/ B Cmplx/FA/Prenat (Iram-Xiomara) 1 tab DAILY PO Last administered on 10/22/18at 09:40; Admin Dose 1 TAB; Start 10/20/18 at 11:00 Pantoprazole (Protonix Tab) 40 mg DAILY@0600 PO Last administered on 10/22/18at 06:16; Admin Dose 40 MG; Start 10/20/18 at 11:00 Immune Globulin 20 gm/Sterile Water 666 ml @ 0 mls/hr ONCE IV ; Start 10/22/18 at 11:00; Stop 10/23/18 at 16:00 DOMINIC LOUIS NP Oct 22, 2018 11:16
--- NOTE | 2018-10-22 13:47 | PN ---
Date/Time of Note Date/Time of Note DATE: 10/22/18 TIME: 13:31 Assessment/Plan Lines/Catheters IV Catheter Type (from [facility]): PERMACATH Moon in Place (from [facility]): No Assessment/Plan Chief Complaint/Hosp Course 1. ESRD with HD, status post PD (no longer in use over 1 year) -Limit nephrotoxic meds -Renally dose meds -HD Per renal -DC PD once patient medically optimized--thrombocytopenia improved 2. Pancytopenia: ivig today -Hematology consult noted > per heme -Supportive, transfusions as needed 3.Large volume loculated ascites: Status post paracentesis -Fluid management -Paracentesis as needed -DC PD as above 4. Shortness of breath with Bilateral pleural effusions and possible PNA: -abx per ID -Fluid management -Consider thoracentesis if unimproved -consider pulmonary consult 5. Hypothyroidism: -Medical management 6. Hypertension history: -Med management 7. Paraumbilical hernia: asymptomatic -eventual repair (can be done outpatient) -close monitoring for symptoms 8. Left leg wound at site of previous surgery (?graft/fistula - son unsure of procedure) -recommend vascular consult or outpatient f/u w previous team (Clayton Noel) local care Thank you. Patient seen and examined in collaboration with Dr. Matthew Voss. Subjective 24 Hr Interval Summary Feels well. Receiving IVIG today. PLTs low. No fevers, chills, sob, congested cough, cp, palpitations, danielle, dizziness, n/v/d/dysuria. Exam/Review of Systems Vital Signs Vitals Vital Signs Date Temp Pulse Resp B/P (MAP) Pulse Ox O2 O2 Flow FiO2 Time Delivery Rate 10/22/18 97.8 99 16 117/71 99 Nasal 13:17 (86) Cannula 10/21/18 2.0 20:20 10/19/18 100 01:15 Intake and Output 10/21/18 10/21/18 10/22/18 1515:00 23:00 07:00 IntakeIntake Total 480 ml 100 ml 600 ml OutputOutput Total 1400 ml BalanceBalance 480 ml -1300 ml 600 ml Exam Free Text/Dictation Constitutional: alert, oriented, frail, other (Chronically ill-appearing) Psych: nl mood/affect; No anxiety Head: normocephalic, atraumatic Eyes: nl conjunctiva, EOMI, nl lids, nl sclera ENMT: nl external ears & nose, nl lips & teeth, mucosa pink and moist Neck: supple, non-tender, jvd Respiratory: normal air movement; No congested cough, No intercostal retraction, No labored breathing Cardiovascular: regular rate and rhythm, nl pulses; No edema Gastrointestinal: soft, non-tender, other (PD catheter (no paty-incisional erythema/drainage from site); paraumbilical hernia); No distended Genitourinary - Female: nl external genitalia Musculoskeletal: nl extremities to inspection; No joint tenderness Extremities: normal pulses Neurological: nl mental status, nl speech, nl strength Skin: nl turgor, ecchymosis Results Result Diagram: 10/22/18 0451 10/22/18 0451 RADHA MEJIA NP Oct 22, 2018 13:47
--- NOTE | 2018-10-22 16:01 | PN ---
Date/Time of Note Date/Time of Note DATE: 10/22/18 TIME: 15:56 Assessment/Plan VTE Prophylaxis Risk score (from [facility] [place])>0 risk: 5 SCD applied (from [facility] [place]): Yes Pharmacological prophylaxis: other Pharm contraindication: thrombocytopenia Lines/Catheters IV Catheter Type (from [facility]): Saline Lock Urinary Cath still in place: No Assessment/Plan Assessment/Plan Debilitated woman with thrombocytopenia. [place] of IVIG has been started but there has not been enough time for any response to be seen if one is going to occur. Continue to monitor platelet count in response to IVIG. Result Diagram: 10/22/1845010/22/181 Results 24hrs Laboratory Tests Test 10/22/18 04:51 White Blood Count 3.7 L Red Blood Count 2.98 L Hemoglobin 9.7 L Hematocrit 30.3 L Mean Corpuscular Volume 101.7 H Mean Corpuscular Hemoglobin 32.6 Mean Corpuscular Hemoglobin Concent 32.0 Red Cell Distribution Width 19.6 H Platelet Count 17 #*L Mean Platelet Volume 12.2 H Immature Granulocytes % 0.800 H Neutrophils % Segmented Neutrophils % (Manual) 74 Band Neutrophils % (Manual) 3 Lymphocytes % Lymphocytes % (Manual) 16 Monocytes % Eosinophils % Eosinophils % (Manual) 4 Basophils % Basophils % (Manual) 1 Metamyelocytes % (manual) 1 H Myelocytes % (Manual) 1 H Nucleated Red Blood Cells % 1 H Immature Granulocytes # 0.030 Neutrophils # Neutrophils # (Manual) 2.7 Band Neutrophils # 0.1 Lymphocytes (Manual) 0.5 L Lymphocytes # Monocytes # Eosinophils # Basophils # Basophils # (Manual) 0.0 Metamyelocytes # 0.0 Myelocytes # 0.0 Nucleated Red Blood Cells # Platelet Estimate DECREASED Giant Platelets 2 H Poikilocytosis 1+ Anisocytosis 1+ Macrocytosis 1+ Ovalocytes 1+ Sodium Level 141 Potassium Level 3.6 Chloride Level 105 Carbon Dioxide Level 28 Anion Gap 8 Blood Urea Nitrogen 17 # Creatinine 2.28 H Est Glomerular Filtrat Rate mL/min 22 L Glucose Level 90 Calcium Level 8.6 Subjective 24 Hr Interval Summary Free Text/Dictation Pt is comfortable3 and alert. IVIG is infusing. Exam/Review of Systems Exam Vitals Vital Signs Date Temp Pulse Resp B/P (MAP) Pulse Ox O2 O2 Flow FiO2 Time Delivery Rate 10/22/18 99 18 133/69 99 Nasal 15:10 (90) Cannula 10/22/18 97.5 14:10 10/22/18 2.0 08:30 10/19/18 100 01:15 Intake and Output 10/21/18 10/21/18 10/22/18 1515:00 23:00 07:00 IntakeIntake Total 480 ml 100 ml 600 ml OutputOutput Total 1400 ml BalanceBalance 480 ml -1300 ml 600 ml Constitutional: alert, oriented Head: other (bitemporal muscle wasting) Eyes: other (conjunctival pallor) ENMT: other (poor dentition) Neck: supple Respiratory: clear to auscultation, diminished breath sounds (at bases) Cardiovascular: regular rate and rhythm Gastrointestinal: non-tender, other (PD catheter noted) Extremities: other (diffuse loss of muscle mass) Results Results 24hrs Laboratory Tests Test 10/22/18 04:51 White Blood Count 3.7 L Red Blood Count 2.98 L Hemoglobin 9.7 L Hematocrit 30.3 L Mean Corpuscular Volume 101.7 H Mean Corpuscular Hemoglobin 32.6 Mean Corpuscular Hemoglobin Concent 32.0 Red Cell Distribution Width 19.6 H Platelet Count 17 #*L Mean Platelet Volume 12.2 H Immature Granulocytes % 0.800 H Neutrophils % Segmented Neutrophils % (Manual) 74 Band Neutrophils % (Manual) 3 Lymphocytes % Lymphocytes % (Manual) 16 Monocytes % Eosinophils % Eosinophils % (Manual) 4 Basophils % Basophils % (Manual) 1 Metamyelocytes % (manual) 1 H Myelocytes % (Manual) 1 H Nucleated Red Blood Cells % 1 H Immature Granulocytes # 0.030 Neutrophils # Neutrophils # (Manual) 2.7 Band Neutrophils # 0.1 Lymphocytes (Manual) 0.5 L Lymphocytes # Monocytes # Eosinophils # Basophils # Basophils # (Manual) 0.0 Metamyelocytes # 0.0 Myelocytes # 0.0 Nucleated Red Blood Cells # Platelet Estimate DECREASED Giant Platelets 2 H Poikilocytosis 1+ Anisocytosis 1+ Macrocytosis 1+ Ovalocytes 1+ Sodium Level 141 Potassium Level 3.6 Chloride Level 105 Carbon Dioxide Level 28 Anion Gap 8 Blood Urea Nitrogen 17 # Creatinine 2.28 H Est Glomerular Filtrat Rate mL/min 22 L Glucose Level 90 Calcium Level 8.6 Medications Medication Current Medications IV Flush (NS 3 ml) 3 ml PER PROTOCOL IV ; Start 10/19/18 at 03:00 Ondansetron HCl (Zofran Inj) 4 mg Q6H PRN IV NAUSEA/VOMITING; Start 10/19/18 at 03:00 Acetaminophen (Tylenol Tab) 650 mg Q6H PRN PO .PAIN 1-3 OR TEMP; Start 10/19/18 at 03:00 Docusate Sodium (Colace) 100 mg Q12H PRN PO .CONSTIPATION; Start 10/19/18 at 03:00 Bisacodyl (Dulcolax) 5 mg DAILY PRN PO .CONSTIPATION; Start 10/19/18 at 03:00 Metronidazole (Flagyl) 250 mg Q8 PO Last administered on 10/22/18 15:26; Admin Dose 250 MG; Start 10/19/18 at 14:00 Miscellaneous Information (Pending Santyl Order For Wound Care) This patient danielle... PRN PRN XX WOUND CARE; Start 10/19/18 at 12:30 Levofloxacin (Levaquin) 250 mg Q48H PO Last administered on 10/21/18 06:19; Admin Dose 250 MG; Start 10/21/18 at 06:30 Epoetin Margarito (Epogen (Esrd)) 10,000 units MoWeFr@17 SC Last administered on 10/21/18 22:00; Admin Dose 10,000 UNITS; Start 10/21/18 at 17:00 Amiodarone HCl (Cordarone) 200 mg BID PO Last administered on 10/22/18 09:40; Admin Dose 200 MG; Start 10/20/18 at 11:00 Folic Acid (Folic Acid) 1 mg DAILY PO Last administered on 10/22/18 09:40; Admin Dose 1 MG; Start 10/20/18 at 11:00 Levothyroxine Sodium (Synthroid) 75 mcg BEFORE BREAKFAST PO Last administered on 10/22/18 06:16; Admin Dose 75 MCG; Start 10/21/18 at 07:00 Multivit/Ca Carb/ B Cmplx/FA/Prenat (Iram-Xiomara) 1 tab DAILY PO Last administered on 10/22/18 09:40; Admin Dose 1 TAB; Start 10/20/18 at 11:00 Pantoprazole (Protonix Tab) 40 mg DAILY@0600 PO Last administered on 10/22/18 06:16; Admin Dose 40 MG; Start 10/20/18 at 11:00 Immune Globulin 20 gm/Sterile Water 666 ml @ 0 mls/hr ONCE IV Last administered on 10/22/18at 13:14; Admin Dose 38 MLS/HR; Start 10/22/18 at 11:00; Stop 10/22/18 at 16:00 AUTUMN CEJA MD Oct 22, 2018 16:01
[2018-10-22] MEDS ORDERED: GUAIFENESIN 20 MG/ML 5ML CUP PO PRN (17:00)
[2018-10-22] MEDS ORDERED: FUROSEMIDE 20 MG INJ IV ONE (17:00)
[2018-10-23] VITALS (25 sets, daily range): BP systolic 72–170; BP diastolic 38–81; PULSE 81–102; RESP 16–20
--- NOTE | 2018-10-23 07:44 | CONS ---
Assessment/Plan Assessment/Plan Hospital Course (Demo Recall) 1) acute SOB this is likely multifactorial she is anemic, her son has a cough doubt she has a bacterial infection but can not rule this out this time CT abd/pelv shows compressive atelectasis from her pleural effusions but a pnm could be hiding I will order respiratory cx get nasal PCR and nasal MRSA continue with levaquin and add flagyl d/c aztreanom check procalcitonin in a.m. pt to get tx today 10/20 - breathing is better, post paracentesis and blood tx await sputum cx on levaquin/flagyl, will repeat CXR and if improved consider d/c of antibiotics 10/21 - CXR showed slight increase in pulmonary vascular congestion sputum cx was never obtained, nasal was neg for MRSA await procalcitonin and if neg then can d/c antibiotics continue levo/flagyl at present (day 3) 10/23 - stable with breathing, day 5/8 of levo/flagyl when procalcitonin comes back if <0.5 then can d/c antibiotics 2) anemia of chronic disease blood tx has been ordered 3) ESRD 4) loculated ascitic fluid from prior peritoneal dialysis if pt develops fevers or elevated WBC may need to due paracentesis to r/o infection 10/20 - paracentesis performed but no studies done on it no abd pain, fevers or elevated WBC, doubt septic peritonitis 10/21 - agree with removal of PD catheter 5) CAD with pacer 6)HTN 7) thrombocytopenia this is not new 10/23 - pt has been started on IVIG, minimal increase in platelets to date Consultation Date/Type/Reason Admit Date/Time Oct 19, 2018 at 02:51 Initial Consult Date 10/19/18 Type of Consult ID Requesting Provider: DOMINIC LOUIS NP Date/Time of Note DATE: 10/23/18 TIME: 07:40 24 HR Interval Summary Free Text/Dictation pt denies SOB, N, V, abd pain, D Exam/Review of Systems Exam Vitals Vital Signs Date Temp Pulse Resp B/P (MAP) Pulse Ox O2 O2 Flow FiO2 Time Delivery Rate 10/23/18 97.9 95 16 95/55 (68) 92 Nasal 07:15 Cannula 10/23/18 3.0 01:39 10/22/18 30 20:30 Intake and Output 3/14/19 3/14/19 3/15/19 1515:00 23:00 07:00 IntakeIntake Total 38 ml 190 ml 100 ml BalanceBalance 38 ml 190 ml 100 ml Constitutional: alert Eyes: nl sclera ENMT: mucosa pink and moist Respiratory: clear to auscultation Cardiovascular: regular rate and rhythm Gastrointestinal: other (PD catheter still present, no redness, abd is firm with BS) Results Result Diagram: 10/23/18 0640 10/23/18 0640 Results 24hrs Laboratory Tests Test 10/22/18 20:30 10/23/18 06:40 White Blood Count 5.4 # 6.1 Red Blood Count 3.13 L 2.95 L Hemoglobin 10.1 L 9.6 L Hematocrit 31.5 L 30.3 L Mean Corpuscular Volume 100.6 102.7 H Mean Corpuscular Hemoglobin 32.3 32.5 Mean Corpuscular Hemoglobin Concent 32.1 31.7 L Red Cell Distribution Width 19.5 H 19.5 H Platelet Count 17 *L 25 #*L Mean Platelet Volume 11.2 H 13.7 #H Immature Granulocytes % 1.500 H 1.300 H Neutrophils % 73.9 Lymphocytes % 14.7 L Monocytes % 8.3 Eosinophils % 0.9 Basophils % 0.7 Nucleated Red Blood Cells % 0.0 0.3 H Immature Granulocytes # 0.080 H 0.080 H Neutrophils # 4.0 Lymphocytes # 0.8 Monocytes # 0.5 Eosinophils # 0.1 Basophils # 0.0 Nucleated Red Blood Cells # 0.0 Sodium Level 139 140 Potassium Level 3.5 4.0 Chloride Level 104 105 Carbon Dioxide Level 28 28 Anion Gap 7 7 Blood Urea Nitrogen 19 21 H Creatinine 2.73 H 2.99 H Est Glomerular Filtrat Rate mL/min 18 L 16 L Glucose Level 128 73 # Lactic Acid Level 2.0 Calcium Level 8.7 8.7 Troponin I < 0.012 Medications Medication Current Medications IV Flush (NS 3 ml) 3 ml PER PROTOCOL IV ; Start 10/19/18 at 03:00 Ondansetron HCl (Zofran Inj) 4 mg Q6H PRN IV NAUSEA/VOMITING; Start 10/19/18 at 03:00 Acetaminophen (Tylenol Tab) 650 mg Q6H PRN PO .PAIN 1-3 OR TEMP; Start 10/19/18 at 03:00 Docusate Sodium (Colace) 100 mg Q12H PRN PO .CONSTIPATION; Start 10/19/18 at 03:00 Bisacodyl (Dulcolax) 5 mg DAILY PRN PO .CONSTIPATION; Start 10/19/18 at 03:00 Metronidazole (Flagyl) 250 mg Q8 PO Last administered on 10/22/18 22:58; Admin Dose 250 MG; Start 10/19/18 at 14:00 Miscellaneous Information (Pending Santyl Order For Wound Care) This patient danielle... PRN PRN XX WOUND CARE; Start 10/19/18 at 12:30 Levofloxacin (Levaquin) 250 mg Q48H PO Last administered on 10/21/18 06:19; Admin Dose 250 MG; Start 10/21/18 at 06:30 Epoetin Margarito (Epogen (Esrd)) 10,000 units MoWeFr@17 SC Last administered on 10/21/18 22:00; Admin Dose 10,000 UNITS; Start 10/21/18 at 17:00 Amiodarone HCl (Cordarone) 200 mg BID PO Last administered on 10/22/18 21:44; Admin Dose 200 MG; Start 10/20/18 at 11:00 Folic Acid (Folic Acid) 1 mg DAILY PO Last administered on 10/22/18 09:40; Admin Dose 1 MG; Start 10/20/18 at 11:00 Levothyroxine Sodium (Synthroid) 75 mcg BEFORE BREAKFAST PO Last administered on 10/22/18 06:16; Admin Dose 75 MCG; Start 10/21/18 at 07:00 Multivit/Ca Carb/ B Cmplx/FA/Prenat (Iram-Xiomara) 1 tab DAILY PO Last administered on 10/22/18 09:40; Admin Dose 1 TAB; Start 10/20/18 at 11:00 Pantoprazole (Protonix Tab) 40 mg DAILY@0600 PO Last administered on 10/22/18 06:16; Admin Dose 40 MG; Start 10/20/18 at 11:00 Guaifenesin (Robitussin Liquid Cup) 200 mg Q4H PRN PO COUGH Last administered on 10/22/18 17:15; Admin Dose 200 MG; Start 10/22/18 at 17:00 AJIT DICKINSON MD Oct 23, 2018 07:44
[2018-10-23] MEDS: metroNIDAZOLE 250 MG TAB PO SCH ×3 (07:46→20:33)
[2018-10-23] MEDS: LEVOTHYROXINE 75 MCG TAB PO SCH (07:47)
[2018-10-23] MEDS: PANTOPRAZOLE (EC) 40 MG TAB PO SCH (07:47)
[2018-10-23] MEDS: LEVOFLOXACIN 250 MG TAB PO SCH (07:47)
--- NOTE | 2018-10-23 08:27 | PN ---
Date/Time of Note Date/Time of Note DATE: 10/23/18 TIME: 08:25 Assessment/Plan Lines/Catheters IV Catheter Type (from [facility]): permacath Moon in Place (from [facility]): No Assessment/Plan Chief Complaint/Hosp Course 1. ESRD with HD, status post PD (no longer in use over 1 year) -Limit nephrotoxic meds -Renally dose meds -HD Per renal -DC PD once patient medically optimized--thrombocytopenia improving 2. Pancytopenia: s/p ivig with good response -cont optimization per heme -Supportive, transfusions as needed 3.Large volume loculated ascites: Status post paracentesis -Fluid management -Paracentesis as needed -DC PD as above 4. Shortness of breath with Bilateral pleural effusions and possible PNA: episode of sob yesterday -abx per ID -Fluid management -consider pulmonary consult 5. Hypothyroidism: -Medical management 6. Hypertension history: -Med management 7. Paraumbilical hernia: asymptomatic -eventual repair (can be done outpatient) -close monitoring for symptoms 8. Left leg wound at site of previous surgery (?graft/fistula - son unsure of procedure) -recommend vascular consult or outpatient f/u w previous team (Argenis Cohen) local care Thank you. Patient seen and examined in collaboration with Dr. Matthew Voss. Subjective 24 Hr Interval Summary s/p IVIG. Platelets improved. Transferred to tele yesterday 09/12 sob. No fevers, chills, sob, congested cough, cp, palpitations, danielle, dizziness, n/v/d/dysuria. Exam/Review of Systems Vital Signs Vitals Vital Signs Date Temp Pulse Resp B/P (MAP) Pulse Ox O2 O2 Flow FiO2 Time Delivery Rate 10/23/18 97 08:12 10/23/18 97.9 16 95/55 (68) 92 Nasal 07:15 Cannula 10/23/18 3.0 01:39 10/22/18 30 20:30 Intake and Output 10/22/18 10/22/18 10/23/18 1515:00 23:00 07:00 IntakeIntake Total 38 ml 190 ml 100 ml BalanceBalance 38 ml 190 ml 100 ml Exam Free Text/Dictation Constitutional: alert, oriented, frail, other (Chronically ill-appearing) Psych: nl mood/affect; No anxiety Head: normocephalic, atraumatic Eyes: nl conjunctiva, EOMI, nl lids, nl sclera ENMT: nl external ears & nose, nl lips & teeth, mucosa pink and moist Neck: supple, non-tender, jvd Respiratory: normal air movement; No congested cough, No intercostal retraction, No labored breathing Cardiovascular: regular rate and rhythm, nl pulses; No edema Gastrointestinal: soft, non-tender, other (PD catheter (no paty-incisional erythema/drainage from site); paraumbilical hernia); No distended Genitourinary - Female: nl external genitalia Musculoskeletal: nl extremities to inspection; No joint tenderness Extremities: normal pulses Neurological: nl mental status, nl speech, nl strength Skin: nl turgor, ecchymosis Results Result Diagram: 10/23/18 0640 10/23/18 0640 RADHA MEJIA NP Oct 23, 2018 08:27
--- NOTE | 2018-10-23 08:57 | PN ---
DATE: 10/23/2018 SUBJECTIVE: The patient yesterday was transferred from med/surg to telemetry. The patient had a jim ction to IVIG therapy. No other acute events noted. The patient is currently improved, less short o f breath after discontinuing IVIG. OBJECTIVE: VITAL SIGNS: Blood pressure is 95/55, pulse 95, respirations 16, temperature 97.9. HEENT: Head is normocephalic. NECK: Supple. HEART: Regular rate. LUNGS: Show diminished breath sounds at the base. ABDOMEN: Soft, nontender to palpation without rebound or guarding. EXTREMITIES: Negative for clubbing, cyanosis, no edema. DERMATOLOGIC: No rashes. MUSCULOSKELETAL: No joint effusion. NEUROLOGIC: No change in exam. MEDICATIONS: Reviewed. LABORATORY DATA: Reviewed. ASSESSMENT AND PLAN: 1. End-stage renal disease. Plan is for hemodialysis today. We will dialyze for 3 hours 3k bath, c alcium 2.5. 2. Anemia, etiology is multifactorial. Monitor hemoglobin and hematocrit levels. We will continue Epogen with dialysis. 3. Thrombocytopenia, etiology unclear, possible neurologic component. The patient was given IVIG; h owever, I was unable to tolerate. We will continue to monitor. Follow up with hematology. 4. Volume overloaded. I will continue ultrafiltration with dialysis. 5. Systemic inflammatory response syndrome, possible sepsis. Continue current antibiotic regimen. 6. Coronary artery disease. Continue medical management. 7. Arrhythmia. The patient is status post pacemaker. 8. Hypertension. Continue current medical management. 9. Dialysis access. The patient has a PD catheter, which may be removed once clinically stable and platelets have improved, current hemodialysis, history of a Perm-A-Cath in the right femoral vein. Dictated By: SARIKA JOINER DO NR/NTS Conf#: [id number] DID#: [id number] CC: HARI CRUZ MD; HEVER CASTILLO MD;*EndCC*
[2018-10-23] MEDS: AMIODARONE 200 MG TAB PO SCH ×2 (09:00→20:44)
[2018-10-23] MEDS: MULTIVIT/CA CARB/B CMPLX/FA TAB PO SCH (09:13)
[2018-10-23] MEDS: FOLIC ACID 1 MG TAB PO SCH (09:14)
--- NOTE | 2018-10-23 09:14 | PN ---
Date/Time of Note Date/Time of Note DATE: 10/23/18 TIME: 09:10 Assessment/Plan VTE Prophylaxis Risk score (from Ns)>0 risk: 5 SCD applied (from Ns): Yes Pharmacological prophylaxis: NA/contraindicated Pharm contraindication: thrombocytopenia Lines/Catheters IV [facility] permacath Urinary Cath still in place: No Assessment/Plan Hospital Course SUBJECTIVE: No acute overnight episodes. OBJECTIVE: Vital signs-see below PHYSICAL EXAM: Constitutional: Frail looking bandage speaking female, not in acute distress. Psych: nl mood/affect, no complaints Head: atraumatic, normocephalic Eyes: nl conjunctiva, nl sclera ENMT: mucosa pink and moist, nl external ears & nose Neck: non-tender, supple Respiratory: clear to auscultation, normal air movement Cardiovascular: nl pulses, regular rate and rhythm Gastrointestinal: +firm. +umblical hernia. +BS. Old PD cath taped in place. Musculoskeletal/extremities: 4+ Edema/Anasarca BLEs. no focal deficit. Normal pulses,no cyanosis Neurological: Alert oriented 3,nl speech, nl strength Skin: nl turgor ASSESSMENT/PLAN:58 yo female w/ESRD/HD (M,W,F),unused PD cath in place,ascites requiring paracetesis, here w/SOB,cough... 1. Loculated ascites,likely from calcified/sclerosed PD catheter (chronic PD cath in place>1 yr after being started on HD) -Status post paracentesis 10/19/2018 with 4.5 L, fluid studies never sent for unclear reasons=>stable liver fxn, no evidence of cirrhosis,no fever/chills to suspect peritonitis. -Plan is PD catheter removal once thrombocytopenia is corrected. 2. ESRD, hemodialysis patient (MWF) -Nephrology managing. Plan is hemodialysis in a.m. -cont. phosphate binders -Patient also has unused/calcified peritoneal dialysis catheter, which needs to come out, however at high risk for surgery 2/2 profound thrombocytopenia 3. Pancytopenia w/profound anemia/ thrombocytopenia, unclear etiology. -Status post IVIG=> slow response in platelet count -H&H stable. -f/u with hematology recommendations. 4.Volume overload/pleural effusion 2/2 ESRD -clinically stable -Cont.UF for fluid removal. 5.Chronic Periumbilical hernia -No evidence of strangulation/incarceration=.oupt f/u per surgery 6.Upper respiratory infection -stable. 7. Hypothyroidism -on Synthroid 8. Arrhythmias, status post pacemaker placed. -Continue amiodarone. Not a candidate for anticoagulation secondary to thrombocytopenia/anemia/high risk bleeding. 9. Hypertension -Stable. -Currently her blood pressure is borderline low, does not need any antihypertensives. DVT prophylaxis: SCDs PUD prophylaxis: PPI CODE STATUS: Full code Diet: 2 g sodium diet/renal diet. Disposition: This patient needs removal of PD catheter BUT profound thrombocytopenia preclude her from surgery at present. .If thrombocytopenia cannot be corrected to a desired level stable for major sx in the next 24-48 hrs, will consider oupt heme follow up and further thrombocytopenia work up and once stable, pt can have elective PD cath removal. Continue current management. Continue ultrafiltration. F/u nephrology, heme.,surgery recs. Patient was seen in collaboration with Dr. Jay. Result Diagram: 10/23/18 0640 10/23/18 0640 Results 24hrs Laboratory Tests Test 10/22/18 20:30 10/23/18 06:40 White Blood Count 5.4 # 6.1 Red Blood Count 3.13 L 2.95 L Hemoglobin 10.1 L 9.6 L Hematocrit 31.5 L 30.3 L Mean Corpuscular Volume 100.6 102.7 H Mean Corpuscular Hemoglobin 32.3 32.5 Mean Corpuscular Hemoglobin Concent 32.1 31.7 L Red Cell Distribution Width 19.5 H 19.5 H Platelet Count 17 *L 25 #*L Mean Platelet Volume 11.2 H 13.7 #H Immature Granulocytes % 1.500 H 1.300 H Neutrophils % 73.9 Lymphocytes % 14.7 L Monocytes % 8.3 Eosinophils % 0.9 Basophils % 0.7 Nucleated Red Blood Cells % 0.0 1 H Immature Granulocytes # 0.080 H 0.080 H Neutrophils # 4.0 Lymphocytes # 0.8 Monocytes # 0.5 Eosinophils # 0.1 Basophils # 0.0 Nucleated Red Blood Cells # 0.0 Sodium Level 139 140 Potassium Level 3.5 4.0 Chloride Level 104 105 Carbon Dioxide Level 28 28 Anion Gap 7 7 Blood Urea Nitrogen 19 21 H Creatinine 2.73 H 2.99 H Est Glomerular Filtrat Rate mL/min 18 L 16 L Glucose Level 128 73 # Lactic Acid Level 2.0 Calcium Level 8.7 8.7 Troponin I < 0.012 Segmented Neutrophils % (Manual) 46 Band Neutrophils % (Manual) 1 Lymphocytes % (Manual) 44 Reactive Lymphocytes % (Manual) 4 H Monocytes % (Manual) 1 Eosinophils % (Manual) 1 Basophils % (Manual) 3 H Neutrophils # (Manual) 2.8 Band Neutrophils # 0.0 Lymphocytes (Manual) 2.6 Reactive Lymphocytes # 0.2 H Monocytes # (Manual) 0.0 L Basophils # (Manual) 0.1 H Platelet Estimate SIG DECREASED Giant Platelets 1 H Polychromasia 1+ Anisocytosis 1+ Microcytosis 1+ Macrocytosis 1+ Spherocytes 1+ Exam/Review of Systems Exam Vitals Vital Signs Date Temp Pulse Resp B/P (MAP) Pulse Ox O2 O2 Flow FiO2 Time Delivery Rate 10/23/18 97 08:12 10/23/18 97.9 16 95/55 (68) 92 Nasal 07:15 Cannula 10/23/18 3.0 01:39 10/22/18 30 20:30 Intake and Output 10/22/18 10/22/18 10/23/18 1515:00 23:00 07:00 IntakeIntake Total 38 ml 190 ml 100 ml BalanceBalance 38 ml 190 ml 100 ml Results Results 24hrs Laboratory Tests Test 10/22/18 20:30 10/23/18 06:40 White Blood Count 5.4 # 6.1 Red Blood Count 3.13 L 2.95 L Hemoglobin 10.1 L 9.6 L Hematocrit 31.5 L 30.3 L Mean Corpuscular Volume 100.6 102.7 H Mean Corpuscular Hemoglobin 32.3 32.5 Mean Corpuscular Hemoglobin Concent 32.1 31.7 L Red Cell Distribution Width 19.5 H 19.5 H Platelet Count 17 *L 25 #*L Mean Platelet Volume 11.2 H 13.7 #H Immature Granulocytes % 1.500 H 1.300 H Neutrophils % 73.9 Lymphocytes % 14.7 L Monocytes % 8.3 Eosinophils % 0.9 Basophils % 0.7 Nucleated Red Blood Cells % 0.0 1 H Immature Granulocytes # 0.080 H 0.080 H Neutrophils # 4.0 Lymphocytes # 0.8 Monocytes # 0.5 Eosinophils # 0.1 Basophils # 0.0 Nucleated Red Blood Cells # 0.0 Sodium Level 139 140 Potassium Level 3.5 4.0 Chloride Level 104 105 Carbon Dioxide Level 28 28 Anion Gap 7 7 Blood Urea Nitrogen 19 21 H Creatinine 2.73 H 2.99 H Est Glomerular Filtrat Rate mL/min 18 L 16 L Glucose Level 128 73 # Lactic Acid Level 2.0 Calcium Level 8.7 8.7 Troponin I < 0.012 Segmented Neutrophils % (Manual) 46 Band Neutrophils % (Manual) 1 Lymphocytes % (Manual) 44 Reactive Lymphocytes % (Manual) 4 H Monocytes % (Manual) 1 Eosinophils % (Manual) 1 Basophils % (Manual) 3 H Neutrophils # (Manual) 2.8 Band Neutrophils # 0.0 Lymphocytes (Manual) 2.6 Reactive Lymphocytes # 0.2 H Monocytes # (Manual) 0.0 L Basophils # (Manual) 0.1 H Platelet Estimate SIG DECREASED Giant Platelets 1 H Polychromasia 1+ Anisocytosis 1+ Microcytosis 1+ Macrocytosis 1+ Spherocytes 1+ Medications Medication Current Medications IV Flush (NS 3 ml) 3 ml PER PROTOCOL IV ; Start 10/19/18 at 03:00 Ondansetron HCl (Zofran Inj) 4 mg Q6H PRN IV NAUSEA/VOMITING; Start 10/19/18 at 03:00 Acetaminophen (Tylenol Tab) 650 mg Q6H PRN PO .PAIN 1-3 OR TEMP; Start 10/19/18 at 03:00 Docusate Sodium (Colace) 100 mg Q12H PRN PO .CONSTIPATION; Start 10/19/18 at 03:00 Bisacodyl (Dulcolax) 5 mg DAILY PRN PO .CONSTIPATION; Start 10/19/18 at 03:00 Metronidazole (Flagyl) 250 mg Q8 PO Last administered on 10/23/18at 07:46; Admin Dose 250 MG; Start 10/19/18 at 14:00 Miscellaneous Information (Pending Santyl Order For Wound Care) This patient danielle... PRN PRN XX WOUND CARE; Start 10/19/18 at 12:30 Levofloxacin (Levaquin) 250 mg Q48H PO Last administered on 10/23/18at 07:47; Admin Dose 250 MG; Start 10/21/18 at 06:30 Epoetin Margarito (Epogen (Esrd)) 10,000 units MoWeFr@17 SC Last administered on 10/21/18 22:00; Admin Dose 10,000 UNITS; Start 10/21/18 at 17:00 Amiodarone HCl (Cordarone) 200 mg BID PO Last administered on 10/22/18 21:44; Admin Dose 200 MG; Start 10/20/18 at 11:00 Folic Acid (Folic Acid) 1 mg DAILY PO Last administered on 10/22/18 09:40; Admin Dose 1 MG; Start 10/20/18 at 11:00 Levothyroxine Sodium (Synthroid) 75 mcg BEFORE BREAKFAST PO Last administered on 10/23/18 07:47; Admin Dose 75 MCG; Start 10/21/18 at 07:00 Multivit/Ca Carb/ B Cmplx/FA/Prenat (Iram-Xiomara) 1 tab DAILY PO Last administered on 10/22/18 09:40; Admin Dose 1 TAB; Start 10/20/18 at 11:00 Pantoprazole (Protonix Tab) 40 mg DAILY@0600 PO Last administered on 10/23/18 07:47; Admin Dose 40 MG; Start 10/20/18 at 11:00 Guaifenesin (Robitussin Liquid Cup) 200 mg Q4H PRN PO COUGH Last administered on 10/22/18 17:15; Admin Dose 200 MG; Start 10/22/18 at 17:00 DOMINIC LOUIS NP Oct 23, 2018 09:14
[2018-10-23] MEDS ORDERED: IMMUNE GLOBULIN (HUMAN) 6 GM INJ IV ONE (10:30)
[2018-10-23] MEDS ORDERED: ALBUMIN HUMAN 25% 100 ML IV ONE (10:30)
--- NOTE | 2018-10-23 11:15 | PN ---
DATE: 10/23/2018 SUBJECTIVE: Patient presently is on hemodialysis. She is comfortable. Not complaining of pain. OBJECTIVE: GENERAL: Patient is a well-developed, but chronically ill-appearing female who is in no acute distre ss. VITAL SIGNS: Temperature 97.9 orally, pulse 98 per minute and regular, respirations 16, blood pressu re 95/55, and pulse oximetry 92% by nasal cannula. SKIN: Hyperpigmentation. No obvious rashes or petechiae. HEENT: Normocephalic. No evidence of trauma. Pupils equal, round, react to light and accommodation. Sclerae nonicteric. Oral mucosa is moist without lesions. NECK: Supple. No jugular venous distention or thyroid enlargement. CHEST: Decreased breath sounds in both bases. No rhonchi, wheezes, rales or rubs. There is very pr ominent venous pattern on the anterior right chest. HEART: Regular sinus rhythm, no S3, S4 or murmurs. ABDOMEN: Flat and soft. The hernia just inferior to the umbilicus is less firm than previous. Ther e is no distention. Bowel sounds are active. EXTREMITIES: No clubbing or cyanosis. The old previous eye AV shunts in both upper extremities whi ch are not functional. There is newly formed AV fistula in the left femoral area and the Perm-A-Cath in the right femoral area, which is presently being used for dialysis. White count 6100, hemoglobin 9.5, hematocrit 30.9 and platelet count 25,000. Sodium 140, potassium 4, creatinine 2.99, BUN 21. KAMRYN is negative and platelet antibodies pending. ASSESSMENT: 1. Pancytopenia with significant thrombocytopenia. 2. Chronic kidney disease on hemodialysis. DISCUSSION: The patient was given IVIG yesterday without adverse reaction, but there does not appear to have been a significant increment in platelets. We will give another infusion of IVIG today. Still awaiting antibody studies regarding platelet antibodies versus heparin-induced thrombocytopenia . Dictated By: SHANICE GODINEZ MD SR/NTS Conf#: [id number] DID#: [id number] CC: HARI CRUZ MD;*EndCC*
[2018-10-23] MEDS ORDERED: IMMUN GLOB 10% IV ONE (13:00)
[2018-10-23] MEDS ORDERED: EVAC CONTAINER IV ONE (13:00)
[2018-10-23] MEDS: EPOETIN 10000 UNITS/1 ML INJ (ESRD) SC SCH (16:33)
--- NOTE | 2018-10-23 17:57 | RADRPT ---
Vent Rate: 112 bpm RR Interval: 0 msec UT Interval: 152 msec QRS Duration: 64 msec QT Interval: 292 msec QTC Interval: 398 msec P-R-T High View: 6 - 112 - 0 degrees Sinus tachycardia with fusion complexes Right axis deviation Low voltage QRS Nonspecific T wave abnormality Abnormal ECG Electronically Signed By: Kenny Odom
[2018-10-24] VITALS (13 sets, daily range): BP systolic 80–104; BP diastolic 50–62; PULSE 82–98; RESP 18
[2018-10-24] MEDS: PANTOPRAZOLE (EC) 40 MG TAB PO SCH (06:07)
[2018-10-24] MEDS: LEVOTHYROXINE 75 MCG TAB PO SCH (06:07)
[2018-10-24] MEDS: metroNIDAZOLE 250 MG TAB PO SCH ×3 (06:07→21:03)
--- NOTE | 2018-10-24 07:30 | CONS ---
Assessment/Plan Assessment/Plan Hospital Course (Demo Recall) 1) acute SOB this is likely multifactorial she is anemic, her son has a cough doubt she has a bacterial infection but can not rule this out this time CT abd/pelv shows compressive atelectasis from her pleural effusions but a pnm could be hiding I will order respiratory cx get nasal PCR and nasal MRSA continue with levaquin and add flagyl d/c aztreanom check procalcitonin in a.m. pt to get tx today 10/20 - breathing is better, post paracentesis and blood tx await sputum cx on levaquin/flagyl, will repeat CXR and if improved consider d/c of antibiotics 10/21 - CXR showed slight increase in pulmonary vascular congestion sputum cx was never obtained, nasal was neg for MRSA await procalcitonin and if neg then can d/c antibiotics continue levo/flagyl at present (day 3) 10/23 - stable with breathing, day 5/8 of levo/flagyl when procalcitonin comes back if <0.5 then can d/c antibiotics 10/24 - pt did not tolerate IVIG but breathing status is back to stable day 6/8 of levo/flagyl, still await procalcitonin results to see if antibiotics can be stopped sooner 2) anemia of chronic disease blood tx has been ordered 3) ESRD 4) loculated ascitic fluid from prior peritoneal dialysis if pt develops fevers or elevated WBC may need to due paracentesis to r/o infection 10/20 - paracentesis performed but no studies done on it no abd pain, fevers or elevated WBC, doubt septic peritonitis 10/21 - agree with removal of PD catheter 5) CAD with pacer 6)HTN 7) thrombocytopenia this is not new 10/23 - pt has been started on IVIG, minimal increase in platelets to date 10/24 - pt did not tolerate IVIG and it has been stopped Consultation Date/Type/Reason Admit Date/Time Oct 19, 2018 at 02:51 Initial Consult Date 10/19/18 Type of Consult ID Requesting Provider: DOMINIC LOUIS NP Date/Time of Note DATE: 10/24/18 TIME: 07:28 24 HR Interval Summary Free Text/Dictation no change pt did not tolerate IVIG Exam/Review of Systems Exam Vitals Vital Signs Date Temp Pulse Resp B/P (MAP) Pulse Ox O2 O2 Flow FiO2 Time Delivery Rate 10/24/18 97/58 (71) 04:30 10/24/18 98.2 90 18 94 04:00 10/24/18 3.0 02:49 10/24/18 Nasal 00:27 Cannula 10/22/18 30 20:30 Intake and Output 10/23/18 10/23/18 10/24/18 1515:00 23:00 07:00 IntakeIntake Total 250 ml 100 ml OutputOutput Total 1500 ml BalanceBalance -1500 ml 250 ml 100 ml Results Result Diagram: 10/24/18 0607 10/23/18 0640 Results 24hrs Laboratory Tests Test 10/24/18 06:07 White Blood Count 6.5 Red Blood Count 3.08 L Hemoglobin 9.8 L Hematocrit 31.1 L Mean Corpuscular Volume 101.0 Mean Corpuscular Hemoglobin 31.8 Mean Corpuscular Hemoglobin Concent 31.5 L Red Cell Distribution Width 19.4 H Platelet Count 24 *L Mean Platelet Volume 12.7 H Immature Granulocytes % 1.200 H Neutrophils % 72.1 Lymphocytes % 17.5 Monocytes % 8.1 Eosinophils % 0.6 Basophils % 0.5 Nucleated Red Blood Cells % 0.5 H Immature Granulocytes # 0.080 H Neutrophils # 4.7 Lymphocytes # 1.1 Monocytes # 0.5 Eosinophils # 0.0 Basophils # 0.0 Nucleated Red Blood Cells # 0.0 Medications Medication Current Medications IV Flush (NS 3 ml) 3 ml PER PROTOCOL IV ; Start 10/19/18 at 03:00 Ondansetron HCl (Zofran Inj) 4 mg Q6H PRN IV NAUSEA/VOMITING; Start 10/19/18 at 03:00 Acetaminophen (Tylenol Tab) 650 mg Q6H PRN PO .PAIN 1-3 OR TEMP; Start 10/19/18 at 03:00 Docusate Sodium (Colace) 100 mg Q12H PRN PO .CONSTIPATION; Start 10/19/18 at 03:00 Bisacodyl (Dulcolax) 5 mg DAILY PRN PO .CONSTIPATION; Start 10/19/18 at 03:00 Metronidazole (Flagyl) 250 mg Q8 PO Last administered on 10/24/18at 06:07; Admin Dose 250 MG; Start 10/19/18 at 14:00 Miscellaneous Information (Pending Santyl Order For Wound Care) This patient danielle... PRN PRN XX WOUND CARE; Start 10/19/18 at 12:30 Levofloxacin (Levaquin) 250 mg Q48H PO Last administered on 10/23/18 07:47; Admin Dose 250 MG; Start 10/21/18 at 06:30 Epoetin Margarito (Epogen (Esrd)) 10,000 units MoWeFr@17 SC Last administered on 10/23/18 16:33; Admin Dose 10,000 UNITS; Start 10/21/18 at 17:00 Amiodarone HCl (Cordarone) 200 mg BID PO Last administered on 10/23/18 20:44; Admin Dose 200 MG; Start 10/20/18 at 11:00 Folic Acid (Folic Acid) 1 mg DAILY PO Last administered on 10/23/18 09:14; Admin Dose 1 MG; Start 10/20/18 at 11:00 Levothyroxine Sodium (Synthroid) 75 mcg BEFORE BREAKFAST PO Last administered on 10/24/18 06:07; Admin Dose 75 MCG; Start 10/21/18 at 07:00 Multivit/Ca Carb/ B Cmplx/FA/Prenat (Iram-Xiomara) 1 tab DAILY PO Last admini stered on 10/23/18 09:13; Admin Dose 1 TAB; Start 10/20/18 at 11:00 Pantoprazole (Protonix Tab) 40 mg DAILY@0600 PO Last administered on 10/24/18 06:07; Admin Dose 40 MG; Start 10/20/18 at 11:00 Guaifenesin (Robitussin Liquid Cup) 200 mg Q4H PRN PO COUGH Last administered on 10/22/18 17:15; Admin Dose 200 MG; Start 10/22/18 at 17:00 AJIT DICKINSON MD Oct 24, 2018 07:30
--- NOTE | 2018-10-24 09:04 | PN ---
Date/Time of Note Date/Time of Note DATE: 10/24/18 TIME: 09:02 Assessment/Plan VTE Prophylaxis Risk score (from Ns)>0 risk: 5 SCD applied (from Ns): Yes Pharmacological prophylaxis: NA/contraindicated Pharm contraindication: thrombocytopenia Lines/Catheters IV [facility]ter [facility]from [facility] permacath Urinary Cath still in place: No Assessment/Plan Hospital Course SUBJECTIVE: No acute overnight episodes. OBJECTIVE: Vital signs-see below PHYSICAL EXAM: Constitutional: Frail looking bandage speaking female, not in acute distress. Psych: nl mood/affect, no complaints Head: atraumatic, normocephalic Eyes: nl conjunctiva, nl sclera ENMT: mucosa pink and moist, nl external ears & nose Neck: non-tender, supple Respiratory: clear to auscultation, normal air movement Cardiovascular: nl pulses, regular rate and rhythm Gastrointestinal: +firm. +umblical hernia. +BS. Old PD cath taped in place. Musculoskeletal/extremities: 4+ Edema/Anasarca BLEs. no focal deficit. Normal pulses,no cyanosis Neurological: Alert oriented 3,nl speech, nl strength Skin: nl turgor ASSESSMENT/PLAN:58 yo female w/ESRD/HD (M,W,F),unused PD cath in place,ascites requiring paracetesis, here w/SOB,cough... 1. Loculated ascites,likely from calcified/sclerosed PD catheter (chronic PD cath in place>1 yr after being started on HD) -Status post paracentesis 10/19/2018 with 4.5 L, fluid studies never sent for unclear reasons=>stable liver fxn, no evidence of cirrhosis,no fever/chills to suspect peritonitis. -Plan is PD catheter removal once thrombocytopenia is corrected. 2. ESRD, hemodialysis patient (MWF) -Nephrology managing. Plan is hemodialysis in a.m. -cont. phosphate binders -Patient also has unused/calcified peritoneal dialysis catheter, which needs to come out, however at high risk for surgery 2/2 profound thrombocytopenia 3. Pancytopenia w/profound anemia/ thrombocytopenia, unclear etiology. -Hematology on board, getting worked up for immunological causes versus HIT -On IVIG treatment => slow response in platelet count -H&H stable. -f/u with hematology recommendations=> consider plateletpheresis in light of patient's need for PD catheter removal. 4.Volume overload/pleural effusion 2/2 ESRD -clinically stable -Cont.UF for fluid removal. 5.Chronic Periumbilical hernia -No evidence of strangulation/incarceration=.oupt f/u per surgery 6.Upper respiratory infection -stable. 7. Hypothyroidism -on Synthroid 8. Arrhythmias, status post pacemaker placed. -Continue amiodarone. Not a candidate for anticoagulation secondary to thrombocytopenia/anemia/high risk bleeding. 9. Hypertension -Stable. -Currently her blood pressure is borderline low, does not need any antihypertensives. DVT prophylaxis: SCDs PUD prophylaxis: PPI CODE STATUS: Full code Diet: 2 g sodium diet/renal diet. Disposition: This patient needs removal of PD catheter BUT profound thrombocytopenia preclude her from surgery at present. Patient is receiving IVIG treatment for correction of platelet, however with slow response. At this time, we will discuss with hematology regarding platelet transfusion as patient needs to have PD catheter removed..If thrombocytopenia cannot be corrected to a desired level stable for major sx in the next 24-48 hrs, will consider oupt heme follow up and further thrombocytopenia work up and once stable, pt can have elective PD cath removal. Continue current management. Continue ultrafiltration. F/u nephrology, heme.,surgery recs. Patient was seen in collaboration with Dr. Hamilton. Result Diagram: 10/24/18 0607 10/24/18 0607 Results 24hrs Laboratory Tests Test 10/24/18 06:07 White Blood Count 6.5 Red Blood Count 3.08 L Hemoglobin 9.8 L Hematocrit 31.1 L Mean Corpuscular Volume 101.0 Mean Corpuscular Hemoglobin 31.8 Mean Corpuscular Hemoglobin Concent 31.5 L Red Cell Distribution Width 19.4 H Platelet Count 24 *L Mean Platelet Volume 12.7 H Immature Granulocytes % 1.200 H Neutrophils % 72.1 Lymphocytes % 17.5 Monocytes % 8.1 Eosinophils % 0.6 Basophils % 0.5 Nucleated Red Blood Cells % 0.5 H Immature Granulocytes # 0.080 H Neutrophils # 4.7 Lymphocytes # 1.1 Monocytes # 0.5 Eosinophils # 0.0 Basophils # 0.0 Nucleated Red Blood Cells # 0.0 Sodium Level 142 Potassium Level 3.9 Chloride Level 109 Carbon Dioxide Level 23 Anion Gap 10 Blood Urea Nitrogen 17 Creatinine 2.36 H Est Glomerular Filtrat Rate mL/min 21 L Glucose Level 78 Calcium Level 8.5 Exam/Review of Systems Exam Vitals Vital Signs Date Temp Pulse Resp B/P (MAP) Pulse Ox O2 O2 Flow FiO2 Time Delivery Rate 10/24/18 93 08:00 10/24/18 98.0 84/50 (61) 92 Nasal 07:30 Cannula 10/24/18 18 04:00 10/24/18 3.0 02:49 10/22/18 30 20:30 Intake and Output 10/23/18 10/23/18 10/24/18 1515:00 23:00 07:00 IntakeIntake Total 250 ml 100 ml OutputOutput Total 1500 ml BalanceBalance -1500 ml 250 ml 100 ml Results Results 24hrs Laboratory Tests Test 10/24/18 06:07 White Blood Count 6.5 Red Blood Count 3.08 L Hemoglobin 9.8 L Hematocrit 31.1 L Mean Corpuscular Volume 101.0 Mean Corpuscular Hemoglobin 31.8 Mean Corpuscular Hemoglobin Concent 31.5 L Red Cell Distribution Width 19.4 H Platelet Count 24 *L Mean Platelet Volume 12.7 H Immature Granulocytes % 1.200 H Neutrophils % 72.1 Lymphocytes % 17.5 Monocytes % 8.1 Eosinophils % 0.6 Basophils % 0.5 Nucleated Red Blood Cells % 0.5 H Immature Granulocytes # 0.080 H Neutrophils # 4.7 Lymphocytes # 1.1 Monocytes # 0.5 Eosinophils # 0.0 Basophils # 0.0 Nucleated Red Blood Cells # 0.0 Sodium Level 142 Potassium Level 3.9 Chloride Level 109 Carbon Dioxide Level 23 Anion Gap 10 Blood Urea Nitrogen 17 Creatinine 2.36 H Est Glomerular Filtrat Rate mL/min 21 L Glucose Level 78 Calcium Level 8.5 Medications Medication Current Medications IV Flush (NS 3 ml) 3 ml PER PROTOCOL IV ; Start 10/19/18 at 03:00 Ondansetron HCl (Zofran Inj) 4 mg Q6H PRN IV NAUSEA/VOMITING; Start 10/19/18 at 03:00 Acetaminophen (Tylenol Tab) 650 mg Q6H PRN PO .PAIN 1-3 OR TEMP; Start 10/19/18 at 03:00 Docusate Sodium (Colace) 100 mg Q12H PRN PO .CONSTIPATION; Start 10/19/18 at 03:00 Bisacodyl (Dulcolax) 5 mg DAILY PRN PO .CONSTIPATION; Start 10/19/18 at 03:00 Metronidazole (Flagyl) 250 mg Q8 PO Last administered on 10/24/18 06:07; Admin Dose 250 MG; Start 10/19/18 at 14:00 Miscellaneous Information (Pending Santyl Order For Wound Care) This patient danielle... PRN PRN XX WOUND CARE; Start 10/19/18 at 12:30 Levofloxacin (Levaquin) 250 mg Q48H PO Last administered on 10/23/18 07:47; Admin Dose 250 MG; Start 10/21/18 at 06:30 Epoetin Margarito (Epogen (Esrd)) 10,000 units MoWeFr@17 SC Last administered on 10/23/18 16:33; Admin Dose 10,000 UNITS; Start 10/21/18 at 17:00 Amiodarone HCl (Cordarone) 200 mg BID PO Last administered on 10/23/18 20:44; Admin Dose 200 MG; Start 10/20/18 at 11:00 Folic Acid (Folic Acid) 1 mg DAILY PO Last administered on 10/23/18 09:14; A dmin Dose 1 MG; Start 10/20/18 at 11:00 Levothyroxine Sodium (Synthroid) 75 mcg BEFORE BREAKFAST PO Last administered on 10/24/18 06:07; Admin Dose 75 MCG; Start 10/21/18 at 07:00 Multivit/Ca Carb/ B Cmplx/FA/Prenat (Iram-Xiomara) 1 tab DAILY PO Last administered on 10/23/18 09:13; Admin Dose 1 TAB; Start 10/20/18 at 11:00 Pantoprazole (Protonix Tab) 40 mg DAILY@0600 PO Last administered on 10/24/18 06:07; Admin Dose 40 MG; Start 10/20/18 at 11:00 Guaifenesin (Robitussin Liquid Cup) 200 mg Q4H PRN PO COUGH Last administered on 10/22/18 17:15; Admin Dose 200 MG; Start 10/22/18 at 17:00 DOMINIC LOUIS NP Oct 24, 2018 09:03
[2018-10-24] MEDS: AMIODARONE 200 MG TAB PO SCH ×2 (09:20→20:19)
[2018-10-24] MEDS: FOLIC ACID 1 MG TAB PO SCH (09:20)
[2018-10-24] MEDS: MULTIVIT/CA CARB/B CMPLX/FA TAB PO SCH (09:20)
--- NOTE | 2018-10-24 09:52 | PN ---
DATE: 10/24/2018 SUBJECTIVE: No new changes. The patient has not experienced any pain. There is no unusual bruising or bleeding. OBJECTIVE: GENERAL: The patient is a well-developed, chronically ill-appearing female in no acute distress. VITAL SIGNS: Temperature 98, pulse 95 per minute and regular, respirations 18, blood pressure 84/60, pulse oximetry 92% on 3 liters by nasal cannula. SKIN: Hyperpigmentation. No rashes, no petechiae. HEENT: Normocephalic. No evidence of trauma. Pupils equal, round, reactive to light and accommodati on. Sclerae nonicteric. Oral mucosa is moist without lesions. NECK: Supple. No jugular venous distention or thyroid enlargement. CHEST: Decreased breath sounds in both bases. No rhonchi, wheezes, rales or rubs. There is a very prominent venous pattern in right anterior chest. HEART: Regular sinus rhythm, no S3, S4 or murmurs. ABDOMEN: Soft, no masses or ascites. There is a hernia just inferior to the umbilicus in the midlin e. Bowel sounds active. There is a peritoneal catheter in place. EXTREMITIES: No clubbing. No edema or cyanosis. Previous AV shunts in both upper extremities. New formed AV fistula in the left lower extremity and Perm-A-Cath in the right femoral artery. Sodium 142, potassium 3.9, creatinine 2.36, BUN 17. White count 6500, hemoglobin 9.8, hematocrit 31.1 and platelet count 24,000 with MPV of 12.7. ASSESSMENT: 1. Pancytopenia with significant thrombocytopenia. 2. Chronic kidney disease on hemodialysis. DISCUSSION The patient actually never actually received any IVIG. Apparently during first infusion be came tachycardic and short of breath. Was sent to telemetry. A second dose of IVIG was canceled. Antibody studies are still pending, but patient's increased MPV suggest a peripheral destruction and possible immune etiology for thrombocytopenia. We will start the patient now on methylprednisolone 8 0 mg daily. Hopefully, this will lead to an elevation of the platelets. If HIT antibodies are detected, then of course will have to discontinue heparin during dialysis. Dictated By: SHANICE GODINEZ MD SR/NTS Conf#: [id number] DID#: [id number] CC: HARI CRUZ MD; HEVER CASTILLO MD;*[facility]*
--- NOTE | 2018-10-24 10:19 | PN ---
Date/Time of Note Date/Time of Note DATE: 10/24/18 TIME: 10:18 Assessment/Plan VTE Prophylaxis Risk score (from Nsg)>0 risk: 5 SCD applied (from Nsg): Yes Pharmacological prophylaxis: other Lines/Catheters IV Catheter Type (from Nrsg): permacath Urinary Cath still in place: No Assessment/Plan Hospital Course SUBJECTIVE: The patient had a reaction to IVIG therapy. No other acute events noted. The patient is currently improved, less short of breath after discontinuing IVIG. last hd was yesterday d/w Dr Casanova OBJECTIVE: HEENT: Head is normocephalic. NECK: Supple. HEART: Regular rate. LUNGS: Show diminished breath sounds at the base. ABDOMEN: Soft, nontender to palpation without rebound or guarding. EXTREMITIES: Negative for clubbing, cyanosis, no edema. DERMATOLOGIC: No rashes. MUSCULOSKELETAL: No joint effusion. NEUROLOGIC: No change in exam. MEDICATIONS: Reviewed. LABORATORY DATA: Reviewed. ASSESSMENT AND PLAN: 1. End-stage renal disease. Plan is for hemodialysis in 1-2 days 2. Anemia, etiology is multifactorial. Monitor hemoglobin and hematocrit levels. We will continue Epogen with dialysis. 3. Thrombocytopenia, etiology unclear, possible neurologic component. The patient was given IVIG; however, she was unable to tolerate. We will continue to monitor. Follow up with hematology. 4. Volume overloaded. I will continue ultrafiltration with dialysis. 5. Systemic inflammatory response syndrome, possible sepsis. Continue current antibiotic regimen. 6. Coronary artery disease. Continue medical management. 7. Arrhythmia. The patient is status post pacemaker. 8. Hypertension. Continue current medical management. 9. Dialysis access. The patient has a PD catheter, which may be removed once clinically stable and platelets have improved, current hemodialysis, history of a Perm-A-Cath in the right femoral vein. Result Diagram: 10/24/18 0607 10/24/18 0607 Results 24hrs Laboratory Tests Test 10/24/18 06:07 White Blood Count 6.5 Red Blood Count 3.08 L Hemoglobin 9.8 L Hematocrit 31.1 L Mean Corpuscular Volume 101.0 Mean Corpuscular Hemoglobin 31.8 Mean Corpuscular Hemoglobin Concent 31.5 L Red Cell Distribution Width 19.4 H Platelet Count 24 *L Mean Platelet Volume 12.7 H Immature Granulocytes % 1.200 H Neutrophils % 72.1 Lymphocytes % 17.5 Monocytes % 8.1 Eosinophils % 0.6 Basophils % 0.5 Nucleated Red Blood Cells % 0.5 H Immature Granulocytes # 0.080 H Neutrophils # 4.7 Lymphocytes # 1.1 Monocytes # 0.5 Eosinophils # 0.0 Basophils # 0.0 Nucleated Red Blood Cells # 0.0 Sodium Level 142 Potassium Level 3.9 Chloride Level 109 Carbon Dioxide Level 23 Anion Gap 10 Blood Urea Nitrogen 17 Creatinine 2.36 H Est Glomerular Filtrat Rate mL/min 21 L Glucose Level 78 Calcium Level 8.5 Exam/Review of Systems Exam Vitals Vital Signs Date Temp Pulse Resp B/P (MAP) Pulse Ox O2 O2 Flow FiO2 Time Delivery Rate 10/24/18 93 08:00 10/24/18 98.0 84/50 (61) 92 Nasal 07:30 Cannula 10/24/18 18 04:00 10/24/18 3.0 02:49 10/22/18 30 20:30 Intake and Output 10/23/18 10/23/18 10/24/18 1515:00 23:00 07:00 IntakeIntake Total 250 ml 100 ml OutputOutput Total 1500 ml BalanceBalance -1500 ml 250 ml 100 ml Results Results 24hrs Laboratory Tests Test 10/24/18 06:07 White Blood Count 6.5 Red Blood Count 3.08 L Hemoglobin 9.8 L Hematocrit 31.1 L Mean Corpuscular Volume 101.0 Mean Corpuscular Hemoglobin 31.8 Mean Corpuscular Hemoglobin Concent 31.5 L Red Cell Distribution Width 19.4 H Platelet Count 24 *L Mean Platelet Volume 12.7 H Immature Granulocytes % 1.200 H Neutrophils % 72.1 Lymphocytes % 17.5 Monocytes % 8.1 Eosinophils % 0.6 Basophils % 0.5 Nucleated Red Blood Cells % 0.5 H Immature Granulocytes # 0.080 H Neutrophils # 4.7 Lymphocytes # 1.1 Monocytes # 0.5 Eosinophils # 0.0 Basophils # 0.0 Nucleated Red Blood Cells # 0.0 Sodium Level 142 Potassium Level 3.9 Chloride Level 109 Carbon Dioxide Level 23 Anion Gap 10 Blood Urea Nitrogen 17 Creatinine 2.36 H Est Glomerular Filtrat Rate mL/min 21 L Glucose Level 78 Calcium Level 8.5 Medications Medication Current Medications IV Flush (NS 3 ml) 3 ml PER PROTOCOL IV ; Start 10/19/18 at 03:00 Ondansetron HCl (Zofran Inj) 4 mg Q6H PRN IV NAUSEA/VOMITING; Start 10/19/18 at 03:00 Acetaminophen (Tylenol Tab) 650 mg Q6H PRN PO .PAIN 1-3 OR TEMP; Start 10/19/18 at 03:00 Docusate Sodium (Colace) 100 mg Q12H PRN PO .CONSTIPATION; Start 10/19/18 at 03:00 Bisacodyl (Dulcolax) 5 mg DAILY PRN PO .CONSTIPATION; Start 10/19/18 at 03:00 Metronidazole (Flagyl) 250 mg Q8 PO Last administered on 10/24/18 06:07; Admin Dose 250 MG; Start 10/19/18 at 14:00 Miscellaneous Information (Pending Santyl Order For Wound Care) This patient danielle... PRN PRN XX WOUND CARE; Start 10/19/18 at 12:30 Levofloxacin (Levaquin) 250 mg Q48H PO Last administered on 10/23/18at 07:47; Admin Dose 250 MG; Start 10/21/18 at 06:30 Epoetin Margarito (Epogen (Esrd)) 10,000 units MoWeFr@17 SC Last administered on 10/23/18 16:33; Admin Dose 10,000 UNITS; Start 10/21/18 at 17:00 Amiodarone HCl (Cordarone) 200 mg BID PO Last administered on 10/24/18 09:20; Admin Dose 200 MG; Start 10/20/18 at 11:00 Folic Acid (Folic Acid) 1 mg DAILY PO Last administered on 10/24/18 09:20; Admin Dose 1 MG; Start 10/20/18 at 11:00 Levothyroxine Sodium (Synthroid) 75 mcg BEFORE BREAKFAST PO Last administered on 10/24/18 06:07; Admin Dose 75 MCG; Start 10/21/18 at 07:00 Multivit/Ca Carb/ B Cmplx/FA/Prenat (Iram-Xiomara) 1 tab DAILY PO Last administered on 10/24/18 09:20; Admin Dose 1 TAB; Start 10/20/18 at 11:00 Pantoprazole (Protonix Tab) 40 mg DAILY@0600 PO Last administered on 10/24/18 06:07; Admin Dose 40 MG; Start 10/20/18 at 11:00 Guaifenesin (Robitussin Liquid Cup) 200 mg Q4H PRN PO COUGH Last administered on 10/22/18at 17:15; Admin Dose 200 MG; Start 10/22/18 at 17:00 Methylprednisolone Sodium Succinate (Solu-Medrol) 80 mg DAILY IV ; Start 10/24/18 at 09:30 DAVID CASTILLO DO Oct 24, 2018 10:19
[2018-10-24] MEDS: METHYLPREDNISOLONE 125 MG INJ IV SCH (18:23)
[2018-10-25] VITALS (10 sets, daily range): BP systolic 88–96; BP diastolic 50–55; PULSE 70–94; RESP 20
[2018-10-25] MEDS: PANTOPRAZOLE (EC) 40 MG TAB PO SCH (05:26)
[2018-10-25] MEDS: metroNIDAZOLE 250 MG TAB PO SCH ×3 (05:26→21:11)
[2018-10-25] MEDS: LEVOTHYROXINE 75 MCG TAB PO SCH (06:25)
[2018-10-25] MEDS: LEVOFLOXACIN 250 MG TAB PO SCH (06:25)
--- NOTE | 2018-10-25 07:09 | CONS ---
Assessment/Plan Assessment/Plan Hospital Course (Demo Recall) 1) acute SOB this is likely multifactorial she is anemic, her son has a cough doubt she has a bacterial infection but can not rule this out this time CT abd/pelv shows compressive atelectasis from her pleural effusions but a pnm could be hiding I will order respiratory cx get nasal PCR and nasal MRSA continue with levaquin and add flagyl d/c aztreanom check procalcitonin in a.m. pt to get tx today 10/20 - breathing is better, post paracentesis and blood tx await sputum cx on levaquin/flagyl, will repeat CXR and if improved consider d/c of antibiotics 10/21 - CXR showed slight increase in pulmonary vascular congestion sputum cx was never obtained, nasal was neg for MRSA await procalcitonin and if neg then can d/c antibiotics continue levo/flagyl at present (day 3) 10/23 - stable with breathing, day 5/8 of levo/flagyl when procalcitonin comes back if <0.5 then can d/c antibiotics 10/24 - pt did not tolerate IVIG but breathing status is back to stable day 6/8 of levo/flagyl, still await procalcitonin results to see if antibiotics can be stopped sooner 10/25 - procalcitonin was elevated continue levo/flagyl thru 10/26/18 2) anemia of chronic disease blood tx has been ordered 3) ESRD 4) loculated ascitic fluid from prior peritoneal dialysis if pt develops fevers or elevated WBC may need to due paracentesis to r/o infection 10/20 - paracentesis performed but no studies done on it no abd pain, fevers or elevated WBC, doubt septic peritonitis 10/21 - agree with removal of PD catheter 5) CAD with pacer 6)HTN 7) thrombocytopenia this is not new 10/23 - pt has been started on IVIG, minimal increase in platelets to date 10/24 - pt did not tolerate IVIG and it has been stopped Consultation Date/Type/Reason Admit Date/Time Oct 19, 2018 at 02:51 Initial Consult Date 10/19/18 Type of Consult ID Requesting Provider: DOMINIC LOUIS NP Date/Time of Note DATE: 10/25/18 TIME: 07:05 24 HR Interval Summary Free Text/Dictation pt has a slight cough, breathing is ok no N, V, D no abd pain Exam/Review of Systems Exam Vitals Vital Signs Date Temp Pulse Resp B/P (MAP) Pulse Ox O2 O2 Flow FiO2 Time Delivery Rate 10/25/18 84 04:11 10/25/18 3.0 03:34 10/24/18 98.3 18 95/50 (65) 100 Nasal 23:27 Cannula 10/22/18 30 20:30 Intake and Output 10/24/18 10/24/18 10/25/18 1515:00 23:00 07:00 IntakeIntake Total 120 ml BalanceBalance 120 ml Constitutional: alert ENMT: mucosa pink and moist Respiratory: clear to auscultation Cardiovascular: regular rate and rhythm, systolic murmur Gastrointestinal: other (firm abd, not tender) Results Result Diagram: 10/24/18 0607 10/24/18 0607 Results 24hrs Laboratory Tests Test 10/25/18 05:13 White Blood Count Pending Red Blood Count Pending Hemoglobin Pending Hematocrit Pending Mean Corpuscular Volume Pending Mean Corpuscular Hemoglobin Pending Mean Corpuscular Hemoglobin Concent Pending Red Cell Distribution Width Pending Platelet Count Pending Mean Platelet Volume Pending Medications Medication Current Medications IV Flush (NS 3 ml) 3 ml PER PROTOCOL IV ; Start 10/19/18 at 03:00 Ondansetron HCl (Zofran Inj) 4 mg Q6H PRN IV NAUSEA/VOMITING; Start 10/19/18 at 03:00 Acetaminophen (Tylenol Tab) 650 mg Q6H PRN PO .PAIN 1-3 OR TEMP; Start 10/19/18 at 03:00 Docusate Sodium (Colace) 100 mg Q12H PRN PO .CONSTIPATION; Start 10/19/18 at 03:00 Bisacodyl (Dulcolax) 5 mg DAILY PRN PO .CONSTIPATION; Start 10/19/18 at 03:00 Metronidazole (Flagyl) 250 mg Q8 PO Last administered on 10/25/18at 05:26; Admin Dose 250 MG; Start 10/19/18 at 14:00 Miscellaneous Information (Pending Santyl Order For Wound Care) This patient danielle... PRN PRN XX WOUND CARE; Start 10/19/18 at 12:30 Levofloxacin (Levaquin) 250 mg Q48H PO Last administered on 10/25/18 06:25; Admin Dose 250 MG; Start 10/21/18 at 06:30 Epoetin Margarito (Epogen (Esrd)) 10,000 units MoWeFr@17 SC Last administered on 10/23/18 16:33; Admin Dose 10,000 UNITS; Start 10/21/18 at 17:00 Amiodarone HCl (Cordarone) 200 mg BID PO Last administered on 10/24/18 20:19; Admin Dose 200 MG; Start 10/20/18 at 11:00 Folic Acid (Folic Acid) 1 mg DAILY PO Last administered on 10/24/18 09:20; Admin Dose 1 MG; Start 10/20/18 at 11:00 Levothyroxine Sodium (Synthroid) 75 mcg BEFORE BREAKFAST PO Last administered on 10/25/18 06:25; Admin Dose 75 MCG; Start 10/21/18 at 07:00 Multivit/Ca Carb/ B Cmplx/FA/Prenat (Iram-Xiomara) 1 tab DAILY PO Last administered on 10/24/18 09:20; Admin Dose 1 TAB; Start 10/20/18 at 11:00 Pantoprazole (Protonix Tab) 40 mg DAILY@0600 PO Last administered on 10/25/18 05:26; Admin Dose 40 MG; Start 10/20/18 at 11:00 Guaifenesin (Robitussin Liquid Cup) 200 mg Q4H PRN PO COUGH Last administered on 10/22/18 17:15; Admin Dose 200 MG; Start 10/22/18 at 17:00 Methylprednisolone Sodium Succinate (Solu-Medrol) 80 mg DAILY IV Last administered on 10/24/18 18:23; Admin Dose 80 MG; Start 10/24/18 at 09:30 AJIT DICKINSON MD Oct 25, 2018 07:08
--- NOTE | 2018-10-25 08:46 | PN ---
DATE: 10/25/2018 SUBJECTIVE: Patient has no new complaints. Did receive methylprednisolone yesterday for the first t jacques, received 80 mg. OBJECTIVE: GENERAL: The patient is a well-developed, cachectic and chronically ill-appearing female who is in n o acute distress. VITAL SIGNS: Temperature 97.4 orally, pulse 77 per minute and regular, respirations 20, blood pressu re 88/52 and pulse oximetry 100% on 3 liters by nasal cannula. SKIN: Diffuse hyperpigmentation. No ecchymosis, petechiae or rashes. HEENT: Normocephalic. No evidence of trauma. Pupils equal, round, reactive to light and accommodat ion. Sclerae nonicteric. Oral mucosa is moist without lesions. NECK: Supple. No jugular venous distention or thyroid enlargement. No carotid bruits. CHEST: Decreased breath sounds in both bases. There are no rhonchi, wheezes, rales or rubs. There is a very prominent venous pattern in the right anterior chest. HEART: Regular sinus rhythm, no S3, S4 or murmurs. ABDOMEN: Soft, no masses, no ascites. There is a midline abdominal wall hernia just inferior to the umbilicus. This is not reducible. Bowel sounds are active. There is a peritoneal dialysis cathete r in place. EXTREMITIES: No clubbing, edema or cyanosis. There are old AV shunts in both upper extremities. Th ere is a newly formed AV fistula in the left lower extremity in the femoral area and Perm-A-Cath in t he right femoral area. WBC 6100 with absolute neutrophil count of 5400, hemoglobin 9.3, hematocrit 30.4, platelet count 23,0 00 with MPV of 13.3. Sodium 142, potassium 4.3, BUN 26, creatinine 2.88. KAMRYN screen is negative. Heparin dependent antibodies are weakly positive. Platelet antibody screen is still pending. ASSESSMENT: 1. Pancytopenia with significant thrombocytopenia. 2. Chronic kidney disease on hemodialysis. As noted, the patient did receive 80 mg of methylprednisolone IV today and this should be given daily . The patient does have a weakly positive heparin dependent antiplatelet antibodies. Perhaps this woul d explain the patient's thrombocytopenia with associated enlarged platelets. It is unclear at this time whether the patient is actually receiving heparin with her dialysis. We w ill have to discuss this and certainly discontinue heparin in this situation. Dictated By: SHANICE GODINEZ MD SR/NTS Conf#: [id number] DID#: [id number] CC: HARI CRUZ MD;*[facility]*
[2018-10-25] MEDS: AMIODARONE 200 MG TAB PO SCH ×2 (09:00→21:10)
[2018-10-25] MEDS: METHYLPREDNISOLONE 125 MG INJ IV SCH (09:51)
--- NOTE | 2018-10-25 09:51 | PN ---
Date/Time of Note Date/Time of Note DATE: 10/25/18 TIME: 09:45 Assessment/Plan VTE Prophylaxis Risk score (from Ns)>0 risk: 5 SCD applied (from Ns): Yes Pharmacological prophylaxis: NA/contraindicated Pharm contraindication: thrombocytopenia Lines/Catheters IV Catheter Type (from [facility]): PERMACATH Urinary Cath still in place: No Assessment/Plan Hospital Course SUBJECTIVE: No acute overnight episodes. OBJECTIVE: Vital signs-see below PHYSICAL EXAM: Constitutional: Frail looking bandage speaking female, not in acute distress. Psych: nl mood/affect, no complaints Head: atraumatic, normocephalic Eyes: nl conjunctiva, nl sclera ENMT: mucosa pink and moist, nl external ears & nose Neck: non-tender, supple Respiratory: clear to auscultation, normal air movement Cardiovascular: nl pulses, regular rate and rhythm Gastrointestinal: +firm. +umblical hernia. +BS. Old PD cath taped in place. Musculoskeletal/extremities: 4+ Edema/Anasarca BLEs. no focal deficit. Normal pulses,no cyanosis Neurological: Alert oriented 3,nl speech, nl strength Skin: nl turgor ASSESSMENT/PLAN:58 yo female w/ESRD/HD (M,W,F),unused PD cath in place,ascites requiring paracetesis, here w/SOB,cough... 1. Loculated ascites,likely from calcified/sclerosed PD catheter (chronic PD cath in place>1 yr after being started on HD) -Status post paracentesis 10/19/2018 with 4.5 L, fluid studies never sent for unclear reasons=>stable liver fxn, no evidence of cirrhosis,no fever/chills to suspect peritonitis. -Plan is PD catheter removal once thrombocytopenia is corrected. 2. ESRD, hemodialysis patient (MWF) -Nephrology managing. Plan is hemodialysis in a.m. -cont. phosphate binders -Patient also has unused/calcified peritoneal dialysis catheter, which needs to come out, however at high risk for surgery 2/2 profound thrombocytopenia 3. Severe Thrombocytopenia, most likely HIT as Maricarmen weak positive for heparin- induced platelet antibody. pending further immune studies. -Received IVIG with slow response in platelet count. -Hematology on board, recommend discontinuation of heparin with hemodialysis, I left a message to the nephrology team.. -f/u with hematology recommendations=> consider plateletpheresis in light of patient's need for PD catheter removal. 4.Volume overload/pleural effusion 2/2 ESRD -clinically stable -Cont.UF for fluid removal. 5.Chronic Periumbilical hernia -No evidence of strangulation/incarceration=.oupt f/u per surgery 6.s/p Upper respiratory infection -stable. 7. Hypothyroidism -on Synthroid 8. Arrhythmias, status post pacemaker placed. -Continue amiodarone. Not a candidate for anticoagulation secondary to thromboc ytopenia/anemia/high risk bleeding. 9. Hypertension -Stable. -Currently her blood pressure is borderline low, does not need any antihypertensives. 10. Anemia of ESRD -Stable H&H. -On Epogen treatment. DVT prophylaxis: SCDs PUD prophylaxis: PPI CODE STATUS: Full code Diet: 2 g sodium diet/renal diet. Disposition: Follow-up hematology recommendation regarding further correction of thrombocytopenia as patient also needs PD catheter removed thrombocytopenia is adequately corrected for surgical procedure. Patient was seen in collaboration with Dr. Hamilton. Result Diagram: 10/25/18 0513 10/25/18 0614 Results 24hrs Laboratory Tests Test 10/25/18 05:13 10/25/18 06:14 White Blood Count 6.1 Red Blood Count 2.95 L Hemoglobin 9.3 L Hematocrit 30.4 L Mean Corpuscular Volume 103.1 H Mean Corpuscular Hemoglobin 31.5 Mean Corpuscular Hemoglobin Concent 30.6 L Red Cell Distribution Width 19.4 H Platelet Count 23 *L Mean Platelet Volume 13.3 H Immature Granulocytes % 0.700 H Neutrophils % 88.5 H Lymphocytes % 9.1 L Monocytes % 1.5 Eosinophils % 0.0 Basophils % 0.2 Nucleated Red Blood Cells % 0.0 Immature Granulocytes # 0.040 H Neutrophils # 5.4 Lymphocytes # 0.6 L Monocytes # 0.1 L Eosinophils # 0.0 Basophils # 0.0 Nucleated Red Blood Cells # 0.0 Sodium Level 142 Potassium Level 4.3 Chloride Level 109 Carbon Dioxide Level 25 Anion Gap 8 Blood Urea Nitrogen 26 H Creatinine 2.88 H Est Glomerular Filtrat Rate mL/min 17 L Glucose Level 124 # Calcium Level 8.8 Exam/Review of Systems Exam Vitals Vital Signs Date Temp Pulse Resp B/P (MAP) Pulse Ox O2 O2 Flow FiO2 Time Delivery Rate 10/25/18 77 08:04 10/25/18 97.4 20 88/52 (64) 100 07:32 10/25/18 3.0 03:34 10/24/18 Nasal 23:27 Cannula 10/22/18 30 20:30 Intake and Output 10/24/18 10/24/18 10/25/18 1515:00 23:00 07:00 IntakeIntake Total 120 ml BalanceBalance 120 ml Results Results 24hrs Laboratory Tests Test 10/25/18 05:13 10/25/18 06:14 White Blood Count 6.1 Red Blood Count 2.95 L Hemoglobin 9.3 L Hematocrit 30.4 L Mean Corpuscular Volume 103.1 H Mean Corpuscular Hemoglobin 31.5 Mean Corpuscular Hemoglobin Concent 30.6 L Red Cell Distribution Width 19.4 H Platelet Count 23 *L Mean Platelet Volume 13.3 H Immature Granulocytes % 0.700 H Neutrophils % 88.5 H Lymphocytes % 9.1 L Monocytes % 1.5 Eosinophils % 0.0 Basophils % 0.2 Nucleated Red Blood Cells % 0.0 Immature Granulocytes # 0.040 H Neutrophils # 5.4 Lymphocytes # 0.6 L Monocytes # 0.1 L Eosinophils # 0.0 Basophils # 0.0 Nucleated Red Blood Cells # 0.0 Sodium Level 142 Potassium Level 4.3 Chloride Level 109 Carbon Dioxide Level 25 Anion Gap 8 Blood Urea Nitrogen 26 H Creatinine 2.88 H Est Glomerular Filtrat Rate mL/min 17 L Glucose Level 124 # Calcium Level 8.8 Medications Medication Current Medications IV Flush (NS 3 ml) 3 ml PER PROTOCOL IV ; Start 10/19/18 at 03:00 Ondansetron HCl (Zofran Inj) 4 mg Q6H PRN IV NAUSEA/VOMITING; Start 10/19/18 at 03:00 Acetaminophen (Tylenol Tab) 650 mg Q6H PRN PO .PAIN 1-3 OR TEMP; Start 10/19/18 at 03:00 Docusate Sodium (Colace) 100 mg Q12H PRN PO .CONSTIPATION; Start 10/19/18 at 03:00 Bisacodyl (Dulcolax) 5 mg DAILY PRN PO .CONSTIPATION; Start 10/19/18 at 03:00 Metronidazole (Flagyl) 250 mg Q8 PO Last administered on 10/25/18at 05:26; Admin Dose 250 MG; Start 10/19/18 at 14:00 Miscellaneous Information (Pending Santyl Order For Wound Care) This patient danielle... PRN PRN XX WOUND CARE; Start 10/19/18 at 12:30 Levofloxacin (Levaquin) 250 mg Q48H PO Last administered on 10/25/18 06:25; Admin Dose 250 MG; Start 10/21/18 at 06:30 Epoetin Margarito (Epogen (Esrd)) 10,000 units MoWeFr@17 SC Last administered on 10/23/18 16:33; Admin Dose 10,000 UNITS; Start 10/21/18 at 17:00 Amiodarone HCl (Cordarone) 200 mg BID PO Last administered on 10/24/18 20:19; Admin Dose 200 MG; Start 10/20/18 at 11:00 Folic Acid (Folic Acid) 1 mg DAILY PO Last administered on 10/24/18 09:20; Admin Dose 1 MG; Start 10/20/18 at 11:00 Levothyroxine Sodium (Synthroid) 75 mcg BEFORE BREAKFAST PO Last administered on 10/25/18 06:25; Admin Dose 75 MCG; Start 10/21/18 at 07:00 Multivit/Ca Carb/ B Cmplx/FA/Prenat (Iram-Xiomara) 1 tab DAILY PO Last administered on 10/24/18 09:20; Admin Dose 1 TAB; Start 10/20/18 at 11:00 Pantoprazole (Protonix Tab) 40 mg DAILY@0600 PO Last administered on 10/25/18 05:26; Admin Dose 40 MG; Start 10/20/18 at 11:00 Guaifenesin (Robitussin Liquid Cup) 200 mg Q4H PRN PO COUGH Last administered on 10/22/18 17:15; Admin Dose 200 MG; Start 10/22/18 at 17:00 Methylprednisolone Sodium Succinate (Solu-Medrol) 80 mg DAILY IV Last administered on 10/24/18 18:23; Admin Dose 80 MG; Start 10/24/18 at 09:30 DOMINIC LOUIS NP Oct 25, 2018 09:51
[2018-10-25] MEDS: FOLIC ACID 1 MG TAB PO SCH (09:52)
[2018-10-25] MEDS: MULTIVIT/CA CARB/B CMPLX/FA TAB PO SCH (09:52)
--- NOTE | 2018-10-25 11:17 | PN ---
Date/Time of Note Date/Time of Note DATE: 10/25/18 TIME: 11:16 Assessment/Plan VTE Prophylaxis Risk score (from Nsg)>0 risk: 3 SCD applied (from Nsg): Yes Pharmacological prophylaxis: other Lines/Catheters IV Catheter Type (from Nrsg): PERMACATH Urinary Cath still in place: No Assessment/Plan Hospital Course SUBJECTIVE: No other acute events noted. d/w Dr Casanova OBJECTIVE: HEENT: Head is normocephalic. NECK: Supple. HEART: Regular rate. LUNGS: Show diminished breath sounds at the base. ABDOMEN: Soft, nontender to palpation without rebound or guarding. EXTREMITIES: Negative for clubbing, cyanosis, no edema. DERMATOLOGIC: No rashes. MUSCULOSKELETAL: No joint effusion. NEUROLOGIC: No change in exam. MEDICATIONS: Reviewed. LABORATORY DATA: Reviewed. ASSESSMENT AND PLAN: 1. End-stage renal disease. Plan is for hemodialysis today (no heparin) 2. Anemia, etiology is multifactorial. Monitor hemoglobin and hematocrit levels. We will continue Epogen with dialysis. 3. Thrombocytopenia, etiology unclear, possible neurologic component. The patient was given IVIG; however, she was unable to tolerate. We will continue to monitor. Follow up with hematology. 4. Volume overloaded. I will continue ultrafiltration with dialysis. 5. Systemic inflammatory response syndrome, possible sepsis. Continue current antibiotic regimen. 6. Coronary artery disease. Continue medical management. 7. Arrhythmia. The patient is status post pacemaker. 8. Hypertension. Continue current medical management. 9. Dialysis access. The patient has a PD catheter, which may be removed once clinically stable and platelets have improved, current hemodialysis, history of a Perm-A-Cath in the right femoral vein. Result Diagram: 10/25/18 0513 10/25/18 0614 Results 24hrs Laboratory Tests Test 10/25/18 05:13 10/25/18 06:14 White Blood Count 6.1 Red Blood Count 2.95 L Hemoglobin 9.3 L Hematocrit 30.4 L Mean Corpuscular Volume 103.1 H Mean Corpuscular Hemoglobin 31.5 Mean Corpuscular Hemoglobin Concent 30.6 L Red Cell Distribution Width 19.4 H Platelet Count 23 *L Mean Platelet Volume 13.3 H Immature Granulocytes % 0.700 H Neutrophils % 88.5 H Lymphocytes % 9.1 L Monocytes % 1.5 Eosinophils % 0.0 Basophils % 0.2 Nucleated Red Blood Cells % 0.0 Immature Granulocytes # 0.040 H Neutrophils # 5.4 Lymphocytes # 0.6 L Monocytes # 0.1 L Eosinophils # 0.0 Basophils # 0.0 Nucleated Red Blood Cells # 0.0 Sodium Level 142 Potassium Level 4.3 Chloride Level 109 Carbon Dioxide Level 25 Anion Gap 8 Blood Urea Nitrogen 26 H Creatinine 2.88 H Est Glomerular Filtrat Rate mL/min 17 L Glucose Level 124 # Calcium Level 8.8 Exam/Review of Systems Exam Vitals Vital Signs Date Temp Pulse Resp B/P (MAP) Pulse Ox O2 O2 Flow FiO2 Time Delivery Rate 10/25/18 77 08:04 10/25/18 97.4 20 88/52 (64) 100 07:32 10/25/18 3.0 03:34 10/24/18 Nasal 23:27 Cannula 10/22/18 30 20:30 Intake and Output 10/24/18 10/24/18 10/25/18 1515:00 23:00 07:00 IntakeIntake Total 120 ml BalanceBalance 120 ml Results Results 24hrs Laboratory Tests Test 10/25/18 05:13 10/25/18 06:14 White Blood Count 6.1 Red Blood Count 2.95 L Hemoglobin 9.3 L Hematocrit 30.4 L Mean Corpuscular Volume 103.1 H Mean Corpuscular Hemoglobin 31.5 Mean Corpuscular Hemoglobin Concent 30.6 L Red Cell Distribution Width 19.4 H Platelet Count 23 *L Mean Platelet Volume 13.3 H Immature Granulocytes % 0.700 H Neutrophils % 88.5 H Lymphocytes % 9.1 L Monocytes % 1.5 Eosinophils % 0.0 Basophils % 0.2 Nucleated Red Blood Cells % 0.0 Immature Granulocytes # 0.040 H Neutrophils # 5.4 Lymphocytes # 0.6 L Monocytes # 0.1 L Eosinophils # 0.0 Basophils # 0.0 Nucleated Red Blood Cells # 0.0 Sodium Level 142 Potassium Level 4.3 Chloride Level 109 Carbon Dioxide Level 25 Anion Gap 8 Blood Urea Nitrogen 26 H Creatinine 2.88 H Est Glomerular Filtrat Rate mL/min 17 L Glucose Level 124 # Calcium Level 8.8 Medications Medication Current Medications IV Flush (NS 3 ml) 3 ml PER PROTOCOL IV ; Start 10/19/18 at 03:00 Ondansetron HCl (Zofran Inj) 4 mg Q6H PRN IV NAUSEA/VOMITING; Start 10/19/18 at 03:00 Acetaminophen (Tylenol Tab) 650 mg Q6H PRN PO .PAIN 1-3 OR TEMP; Start 10/19/18 at 03:00 Docusate Sodium (Colace) 100 mg Q12H PRN PO .CONSTIPATION; Start 10/19/18 at 03:00 Bisacodyl (Dulcolax) 5 mg DAILY PRN PO .CONSTIPATION; Start 10/19/18 at 03:00 Metronidazole (Flagyl) 250 mg Q8 PO Last administered on 10/25/18 05:26; Admin Dose 250 MG; Start 10/19/18 at 14:00 Miscellaneous Information (Pending Santyl Order For Wound Care) This patient danielle... PRN PRN XX WOUND CARE; Start 10/19/18 at 12:30 Levofloxacin (Levaquin) 250 mg Q48H PO Last administered on 10/25/18at 06:25; Admin Dose 250 MG; Start 10/21/18 at 06:30 Epoetin Margarito (Epogen (Esrd)) 10,000 units MoWeFr@17 SC Last administered on 10/23/18 16:33; Admin Dose 10,000 UNITS; Start 10/21/18 at 17:00 Amiodarone HCl (Cordarone) 200 mg BID PO Last administered on 10/24/18 20:19; Admin Dose 200 MG; Start 10/20/18 at 11:00 Folic Acid (Folic Acid) 1 mg DAILY PO Last administered on 10/25/18 09:52; Admin Dose 1 MG; Start 10/20/18 at 11:00 Levothyroxine Sodium (Synthroid) 75 mcg BEFORE BREAKFAST PO Last administered on 10/25/18 06:25; Admin Dose 75 MCG; Start 10/21/18 at 07:00 Multivit/Ca Carb/ B Cmplx/FA/Prenat (Iram-Xiomara) 1 tab DAILY PO Last administered on 10/25/18 09:52; Admin Dose 1 TAB; Start 10/20/18 at 11:00 Pantoprazole (Protonix Tab) 40 mg DAILY@0600 PO Last administered on 10/25/18 05:26; Admin Dose 40 MG; Start 10/20/18 at 11:00 Guaifenesin (Robitussin Liquid Cup) 200 mg Q4H PRN PO COUGH Last administered on 10/22/18at 17:15; Admin Dose 200 MG; Start 10/22/18 at 17:00 Methylprednisolone Sodium Succinate (Solu-Medrol) 80 mg DAILY IV Last administered on 10/25/18at 09:51; Admin Dose 80 MG; Start 10/24/18 at 09:30 DAVID CASTILLO DO Oct 25, 2018 11:17
--- NOTE | 2018-10-25 22:08 | PN ---
Date/Time of Note Date/Time of Note DATE: 10/24/18 TIME: 22:04 Assessment/Plan Lines/Catheters IV Catheter Type (from [facility]): PERMACATH Moon in Place (from [facility]): No Assessment/Plan Chief Complaint/Hosp Course 1. ESRD with HD, status post PD (no longer in use over 1 year) -Limit nephrotoxic meds -Renally dose meds -HD Per renal -DC PD once patient medically optimized 2. Pancytopenia: s/p ivig with good response -cont optimization per heme -Supportive, transfusions as needed 3.Large volume loculated ascites: Status post paracentesis -Fluid management -Paracentesis as needed -DC PD as above 4. Shortness of breath with Bilateral pleural effusions and possible PNA: episode of sob yesterday -abx per ID -Fluid management -consider pulmonary consult 5. Hypothyroidism: -Medical management 6. Hypertension history: -Med management 7. Paraumbilical hernia: asymptomatic -eventual repair (can be done outpatient) -close monitoring for symptoms 8. Left leg wound at site of previous surgery (?graft/fistula - son unsure of procedure) -recommend vascular consult or outpatient f/u w previous team ([facility]) local care Thank you Late entry 10/24 Subjective 24 Hr Interval Summary No fevers, chills, sob, congested cough, cp, palpitations, danielle, dizziness, n/v/d/dysuria. s/p IVIG. Thrombocytopenia. Exam/Review of Systems Vital Signs Vitals Vital Signs Date Temp Pulse Resp B/P (MAP) Pulse Ox O2 O2 Flow FiO2 Time Delivery Rate 10/25/18 3.0 21:44 10/25/18 Nasal 20:12 Cannula 10/25/18 82 20:05 10/25/18 98.0 20 96/50 (65) 94 19:23 10/22/18 30 20:30 Intake and Output 10/24/18 10/24/18 10/25/18 1515:00 23:00 07:00 IntakeIntake Total 120 ml BalanceBalance 120 ml Exam Free Text/Dictation No fevers, chills, sob, congested cough, cp, palpitations, danielle, dizziness, n/v/d/dysuria. s/p IVIG. Thrombocytopenia. Constitutional: alert, oriented, frail, other (Chronically ill-appearing) Psych: nl mood/affect; No anxiety Head: normocephalic, atraumatic Eyes: nl conjunctiva, EOMI, nl lids, nl sclera ENMT: nl external ears & nose, nl lips & teeth, mucosa pink and moist Neck: supple, non-tender, jvd Respiratory: normal air movement; No congested cough, No intercostal retraction, No labored breathing Cardiovascular: regular rate and rhythm, nl pulses; No edema Gastrointestinal: soft, non-tender, other (PD catheter (no paty-incisional erythema/drainage from site); paraumbilical hernia); No distended Genitourinary - Female: nl external genitalia Musculoskeletal: nl extremities to inspection; No joint tenderness Extremities: normal pulses Neurological: nl mental status, nl speech, nl strength Skin: nl turgor, ecchymosis Results Result Diagram: 10/25/18 0513 10/25/18 0614 HEVER CASTILLO MD Oct 25, 2018 22:08
--- NOTE | 2018-10-25 22:10 | PN ---
Date/Time of Note Date/Time of Note DATE: 10/25/18 TIME: 22:08 Assessment/Plan Lines/Catheters IV Catheter Type (from [facility]): PERMACATH [facility] in Place (from [facility]): No Assessment/Plan Chief Complaint/Hosp Course 1. ESRD with HD, status post PD (no longer in use over 1 year) -Limit nephrotoxic meds -Renally dose meds -HD Per renal -DC PD once patient medically optimized 2. Pancytopenia: s/p ivig with good response -cont optimization per heme -Supportive, transfusions as needed 3.Large volume loculated ascites: Status post paracentesis -Fluid management -Paracentesis as needed -DC PD as above 4. Shortness of breath with Bilateral pleural effusions and possible PNA -abx per ID -Fluid management -consider pulmonary consult 5. Hypothyroidism: -Medical management 6. Hypertension history: -Med management 7. Paraumbilical hernia: asymptomatic -eventual repair (can be done outpatient) -close monitoring for symptoms 8. Left leg wound at site of previous surgery (?graft/fistula - son unsure of procedure) -recommend vascular consult or outpatient f/u w previous team ([facility]) local care Thank you Subjective 24 Hr Interval Summary No fevers, chills, sob, congested cough, cp, palpitations, danielle, dizziness, n/v/d/dysuria. s/p IVIG. Thrombocytopenia. Exam/Review of Systems Vital Signs Vitals Vital Signs Date Temp Pulse Resp B/P (MAP) Pulse Ox O2 O2 Flow FiO2 Time Delivery Rate 10/25/18 3.0 21:44 10/25/18 Nasal 20:12 Cannula 10/25/18 82 20:05 10/25/18 98.0 20 96/50 (65) 94 19:23 10/22/18 30 20:30 Intake and Output 10/24/18 10/24/18 10/25/18 1515:00 23:00 07:00 IntakeIntake Total 120 ml BalanceBalance 120 ml Exam Free Text/Dictation Constitutional: alert, oriented, frail, other (Chronically ill-appearing) Psych: nl mood/affect; No anxiety Head: normocephalic, atraumatic Eyes: nl conjunctiva, EOMI, nl lids, nl sclera ENMT: nl external ears & nose, nl lips & teeth, mucosa pink and moist Neck: supple, non-tender, jvd Respiratory: normal air movement; No congested cough, No intercostal retraction, No labored breathing Cardiovascular: regular rate and rhythm, nl pulses; No edema Gastrointestinal: soft, non-tender, other (PD catheter (no paty-incisional erythema/drainage from site); paraumbilical hernia); No distended Genitourinary - Female: nl external genitalia Musculoskeletal: nl extremities to inspection; No joint tenderness Extremities: normal pulses Neurological: nl mental status, nl speech, nl strength Skin: nl turgor, ecchymosis Results Result Diagram: 10/25/18 0513 10/25/18 0614 HEVER CASTILLO MD Oct 25, 2018 22:10
[2018-10-26] VITALS (28 sets, daily range): BP systolic 93–122; BP diastolic 56–68; PULSE 77–89; RESP 16–20
[2018-10-26] MEDS: LEVOTHYROXINE 75 MCG TAB PO SCH (06:09)
[2018-10-26] MEDS: metroNIDAZOLE 250 MG TAB PO SCH ×3 (06:09→21:15)
[2018-10-26] MEDS: PANTOPRAZOLE (EC) 40 MG TAB PO SCH (06:10)
--- NOTE | 2018-10-26 09:10 | PN ---
DATE: 10/26/2018 SUBJECTIVE: The patient is stable. No events overnight. OBJECTIVE: VITAL SIGNS: Blood pressure 115/68, pulse 79, temperature 98.0. HEENT: Head is normocephalic. NECK: Supple. HEART: Regular rate. LUNGS: Show diminished breath sounds at the base. ABDOMEN: Soft, nontender to palpation. No rebound or guarding. EXTREMITIES: Negative for clubbing, cyanosis, no edema. DERMATOLOGIC: No rashes. MUSCULOSKELETAL: No joint effusion. NEUROLOGIC: No change in exam. MEDICATIONS: Reviewed. LABORATORY DATA: Reviewed. ASSESSMENT AND PLAN: 1. End-stage renal disease. Plan is hemodialysis today. We will dialyze 3 hours 3k bath, calcium 2 .5. 2. Anemia. Monitor hemoglobin and hematocrit levels. Continue Epogen. 3. Thrombocytopenia. The patient is positive for HIT. The patient is status post IVIG and unable t o tolerate. We will continue to monitor. No heparin to be used with hemodialysis. 4. Volume overload. Continue ultrafiltration dialysis. 5. Systemic inflammatory response syndrome. Continue current antibiotic regimen. 6. Coronary artery disease. Continue medical management. 7. Arrhythmia. The patient is status post pacemaker. 8. Hypertension. Continue current blood pressure regimen. 9. Dialysis access. The patient has a right femoral Perm-A-Cath. The patient's PD catheter will be removed once medically optimized by surgery. Dictated By: SARIKA JOINER DO NR/NTS Conf#: [id number] DID#: [id number] CC: HEVER CASTILLO MD; HARI CRUZ MD;*EndCC*
[2018-10-26] MEDS ORDERED: ALBUMIN HUMAN 25% 100 ML IV PRN (10:00)
--- NOTE | 2018-10-26 10:15 | PN ---
Date/Time of Note Date/Time of Note DATE: 10/26/18 TIME: 10:06 Assessment/Plan VTE Prophylaxis Risk score (from Ns)>0 risk: 3 SCD applied (from [facility] [place]): Yes Pharmacological prophylaxis: NA/contraindicated Pharm contraindication: thrombocytopenia Lines/Catheters IV [facility]atheter Type (from [facility]): PERMACATH Urinary Cath still in place: No Assessment/Plan Hospital Course SUBJECTIVE: No acute overnight episodes. OBJECTIVE: Vital signs-see below PHYSICAL EXAM: Constitutional: Frail looking bandage speaking female, not in acute distress. Psych: nl mood/affect, no complaints Head: atraumatic, normocephalic Eyes: nl conjunctiva, nl sclera ENMT: mucosa pink and moist, nl external ears & nose Neck: non-tender, supple Respiratory: clear to auscultation, normal air movement Cardiovascular: nl pulses, regular rate and rhythm Gastrointestinal: +firm. +umblical hernia. +BS. Old PD cath taped in place. Musculoskeletal/extremities: 4+ Edema/Anasarca BLEs. no focal deficit. Normal pulses,no cyanosis Neurological: Alert oriented 3,nl speech, nl strength Skin: nl turgor ASSESSMENT/PLAN:58 yo female w/ESRD/HD (M,W,F),unused PD cath in place,ascites requiring paracetesis, here w/SOB,cough...found to have a URI, loculated ascites w/calcified PD cath.. 1. Loculated ascites,likely from calcified/sclerosed PD catheter (chronic PD cath in place>1 yr after being started on HD) -Status post paracentesis 10/19/2018 with 4.5 L, fluid studies never sent for u nclear reasons=>stable liver fxn, no evidence of cirrhosis,no fever/chills to suspect peritonitis. -Plan is PD catheter removal once thrombocytopenia is corrected. 2. ESRD, hemodialysis patient (MWF) -Nephrology managing. Plan is hemodialysis in a.m. -cont. phosphate binders -Patient also has unused/calcified peritoneal dialysis catheter, which needs to come out, however at high risk for surgery 2/2 profound thrombocytopenia 3. Severe Thrombocytopenia, most likely HIT as Maricarmen weak positive for heparin- induced platelet antibody. pending further immune studies. -Received IVIG/steroids with slow response in platelet count. -Heparin has been DCd from HD order=>PLT slowly improving. -f/u with hematology recommendations=> consider plateletpheresis in light of patient's need for PD catheter removal. 4.Volume overload/pleural effusion 2/2 ESRD -clinically stable -Cont.UF for fluid removal. 5.Chronic Periumbilical hernia -No evidence of strangulation/incarceration=.oupt f/u per surgery 6.s/p Upper respiratory infection -stable. 7. Hypothyroidism -on Synthroid 8. Arrhythmias, status post pacemaker placed. -Continue amiodarone. Not a candidate for anticoagulation secondary to thrombocytopenia/anemia/high risk bleeding. 9. Hypertension -Stable. -Currently her blood pressure is borderline low, does not need any antihypertensives. 10. Anemia of ESRD -Stable H&H. -On Epogen treatment. DVT prophylaxis: SCDs PUD prophylaxis: PPI CODE STATUS: Full code Diet: 2 g sodium diet/renal diet. Disposition: Follow-up hematology recommendation regarding further correction of thrombocytopenia as patient also needs PD catheter removed thrombocytopenia is adequately corrected for surgical procedure. Patient was seen in collaboration with Dr. Alba. Result Diagram: 10/26/18 0554 10/26/18 0554 Results 24hrs Laboratory Tests Test 10/26/18 05:54 White Blood Count 10.8 # Red Blood Count 2.93 L Hemoglobin 9.2 L Hematocrit 30.0 L Mean Corpuscular Volume 102.4 H Mean Corpuscular Hemoglobin 31.4 Mean Corpuscular Hemoglobin Concent 30.7 L Red Cell Distribution Width 19.2 H Platelet Count 28 #*L Mean Platelet Volume 11.9 H Immature Granulocytes % 0.600 H Neutrophils % Segmented Neutrophils % (Manual) 79 H Band Neutrophils % (Manual) 12 H Lymphocytes % Lymphocytes % (Manual) 7 L Reactive Lymphocytes % (Manual) 1 H Monocytes % Monocytes % (Manual) 1 Eosinophils % Basophils % Nucleated Red Blood Cells % 2 H Immature Granulocytes # 0.060 H Neutrophils # Neutrophils # (Manual) 8.7 H Band Neutrophils # 1.2 H Lymphocytes (Manual) 0.7 L Lymphocytes # Reactive Lymphocytes # 0.1 H Monocytes # Monocytes # (Manual) 0.1 L Eosinophils # Basophils # Nucleated Red Blood Cells # Toxic Granulation 1+ Platelet Estimate SIG DECREASED Polychromasia 3+ Hypochromasia 1+ Poikilocytosis 3+ Anisocytosis 2+ Macrocytosis 1+ Target Cells 1+ Ovalocytes 1+ Sodium Level 143 Potassium Level 3.9 Chloride Level 108 Carbon Dioxide Level 24 Anion Gap 11 Blood Urea Nitrogen 40 #H Creatinine 3.32 H Est Glomerular Filtrat Rate mL/min 14 L Glucose Level 142 Calcium Level 9.4 Exam/Review of Systems Exam Vitals Vital Signs Date Temp Pulse Resp B/P (MAP) Pulse Ox O2 O2 Flow FiO2 Time Delivery Rate 10/26/18 3.0 08:25 10/26/18 Nasal 08:02 Cannula 10/26/18 79 08:01 10/26/18 98.0 18 115/68 98 07:49 (84) 10/22/18 30 20:30 Intake and Output 10/25/18 10/25/18 10/26/18 1515:00 23:00 07:00 IntakeIntake Total 650 ml 120 ml BalanceBalance 650 ml 120 ml Results Results 24hrs Laboratory Tests Test 10/26/18 05:54 White Blood Count 10.8 # Red Blood Count 2.93 L Hemoglobin 9.2 L Hematocrit 30.0 L Mean Corpuscular Volume 102.4 H Mean Corpuscular Hemoglobin 31.4 Mean Corpuscular Hemoglobin Concent 30.7 L Red Cell Distribution Width 19.2 H Platelet Count 28 #*L Mean Platelet Volume 11.9 H Immature Granulocytes % 0.600 H Neutrophils % Segmented Neutrophils % (Manual) 79 H Band Neutrophils % (Manual) 12 H Lymphocytes % Lymphocytes % (Manual) 7 L Reactive Lymphocytes % (Manual) 1 H Monocytes % Monocytes % (Manual) 1 Eosinophils % Basophils % Nucleated Red Blood Cells % 2 H Immature Granulocytes # 0.060 H Neutrophils # Neutrophils # (Manual) 8.7 H Band Neutrophils # 1.2 H Lymphocytes (Manual) 0.7 L Lymphocytes # Reactive Lymphocytes # 0.1 H Monocytes # Monocytes # (Manual) 0.1 L Eosinophils # Basophils # Nucleated Red Blood Cells # Toxic Granulation 1+ Platelet Estimate SIG DECREASED Polychromasia 3+ Hypochromasia 1+ Poikilocytosis 3+ Anisocytosis 2+ Macrocytosis 1+ Target Cells 1+ Ovalocytes 1+ Sodium Level 143 Potassium Level 3.9 Chloride Level 108 Carbon Dioxide Level 24 Anion Gap 11 Blood Urea Nitrogen 40 #H Creatinine 3.32 H Est Glomerular Filtrat Rate mL/min 14 L Glucose Level 142 Calcium Level 9.4 Medications Medication Current Medications IV Flush (NS 3 ml) 3 ml PER PROTOCOL IV ; Start 10/19/18 at 03:00 Ondansetron HCl (Zofran Inj) 4 mg Q6H PRN IV NAUSEA/VOMITING; Start 10/19/18 at 03:00 Acetaminophen (Tylenol Tab) 650 mg Q6H PRN PO .PAIN 1-3 OR TEMP; Start 10/19/18 at 03:00 Docusate Sodium (Colace) 100 mg Q12H PRN PO .CONSTIPATION; Start 10/19/18 at 03:00 Bisacodyl (Dulcolax) 5 mg DAILY PRN PO .CONSTIPATION; Start 10/19/18 at 03:00 Metronidazole (Flagyl) 250 mg Q8 PO Last administered on 10/26/18at 06:09; Admin Dose 250 MG; Start 10/19/18 at 14:00; Stop 10/26/18 at 23:00 Miscellaneous Information (Pending [facility] Order For Wound Care) This patient danielle... PRN PRN XX WOUND CARE; Start 10/19/18 at 12:30 Epoetin Margarito (Epogen (Esrd)) 10,000 units MoWeFr@17 SC Last administered on 10/23/18at 16:33; Admin Dose 10,000 UNITS; Start 10/21/18 at 17:00 Amiodarone HCl (Cordarone) 200 mg BID PO Last administered on 10/25/18at 21:10; Admin Dose 200 MG; Start 10/20/18 at 11:00 Folic Acid (Folic Acid) 1 mg DAILY PO Last administered on 10/25/18at 09:52; Admin Dose 1 MG; Start 10/20/18 at 11:00 Levothyroxine Sodium (Synthroid) 75 mcg BEFORE BREAKFAST PO Last administered on 10/26/18at 06:09; Admin Dose 75 MCG; Start 10/21/18 at 07:00 Multivit/Ca Carb/ B Cmplx/FA/Prenat (Iram-Xiomara) 1 tab DAILY PO Last administered on 10/25/18at 09:52; Admin Dose 1 TAB; Start 10/20/18 at 11:00 Pantoprazole (Protonix Tab) 40 mg DAILY@0600 PO Last administered on 10/26/18at 06:10; Admin Dose 40 MG; Start 10/20/18 at 11:00 Guaifenesin (Robitussin Liquid Cup) 200 mg Q4H PRN PO COUGH Last administered on 10/22/18at 17:15; Admin Dose 200 MG; Start 10/22/18 at 17:00 Methylprednisolone Sodium Succinate (Solu-Medrol) 80 mg DAILY IV Last administered on 10/25/18at 09:51; Admin Dose 80 MG; Start 10/24/18 at 09:30 Albumin Human 100 ml @ 100 mls/hr Q1H IV ; Start 10/26/18 at 10:00; Stop 10/26/18 at 11:59 Albumin Human 100 ml @ 100 mls/hr DURING DIALYSIS PRN IV LOW BP; Start 10/26/18 at 10:00 DOMINIC LOUIS NP Oct 26, 2018 10:15
[2018-10-26] MEDS: ALBUMIN HUMAN 25% 100 ML IV SCH ×2 (10:21→11:00)
--- NOTE | 2018-10-26 14:36 | PN ---
Date/Time of Note Date/Time of Note DATE: 10/26/18 TIME: 14:34 Assessment/Plan Lines/Catheters IV Catheter Type (from [facility]): PERMACATH Moon in Place (from [facility]): No Assessment/Plan Chief Complaint/Hosp Course 1. ESRD with HD, status post PD (no longer in use over 1 year) -Limit nephrotoxic meds -Renally dose meds -HD Per renal -DC PD once patient medically optimized 2. Pancytopenia: s/p ivig with response -cont optimization per heme -Supportive, transfusions as needed 3. Large volume loculated ascites: Status post paracentesis -Fluid management -Paracentesis as needed -DC PD as above 4. Shortness of breath with Bilateral pleural effusions and possible PNA -abx per ID -Fluid management -consider pulmonary consult 5. Hypothyroidism: -Medical management 6. Hypertension history: -Med management 7. Paraumbilical hernia: asymptomatic -eventual repair (can be done outpatient) -close monitoring for symptoms 8. Left leg wound at site of previous surgery (?graft/fistula - son unsure of procedure) -recommend vascular consult or outpatient f/u w previous team ([facility]) local care Thank you Subjective 24 Hr Interval Summary No fevers, chills, sob, congested cough, cp, palpitations, danielle, dizziness, n/v/d/dysuria. s/p IVIG. Thrombocytopenia. Exam/Review of Systems Vital Signs Vitals Vital Signs Date Temp Pulse Resp B/P (MAP) Pulse Ox O2 O2 Flow FiO2 Time Delivery Rate 10/26/18 84 12:01 10/26/18 98.0 20 101/57 97 11:38 (72) 10/26/18 3.0 08:25 10/26/18 Nasal 08:02 Cannula 10/22/18 30 20:30 Intake and Output 10/25/18 10/25/18 10/26/18 1515:00 23:00 07:00 IntakeIntake Total 650 ml 120 ml BalanceBalance 650 ml 120 ml Exam Free Text/Dictation Constitutional: alert, oriented, frail, other (Chronically ill-appearing) Psych: nl mood/affect; No anxiety Head: normocephalic, atraumatic Eyes: nl conjunctiva, EOMI, nl lids, nl sclera ENMT: nl external ears & nose, nl lips & teeth, mucosa pink and moist Neck: supple, non-tender, jvd Respiratory: normal air movement; No congested cough, No intercostal retraction, No labored breathing Cardiovascular: regular rate and rhythm, nl pulses; No edema Gastrointestinal: soft, non-tender, other (PD catheter (no paty-incisional erythema/drainage from site); periumbilical hernia No distended Genitourinary - Female: nl external genitalia Musculoskeletal: nl extremities to inspection; No joint tenderness Extremities: normal pulses Neurological: nl mental status, nl speech, nl strength Skin: nl turgor, ecchymosis Results Result Diagram: 10/26/18 0554 10/26/18 0554 HEVER CASTILLO MD Oct 26, 2018 14:36
[2018-10-26] MEDS: AMIODARONE 200 MG TAB PO SCH ×2 (18:00→21:16)
[2018-10-26] MEDS: FOLIC ACID 1 MG TAB PO SCH (18:00)
[2018-10-26] MEDS: MULTIVIT/CA CARB/B CMPLX/FA TAB PO SCH (18:00)
[2018-10-26] MEDS: EPOETIN 10000 UNITS/1 ML INJ (ESRD) SC SCH (18:00)
[2018-10-26] MEDS: METHYLPREDNISOLONE 125 MG INJ IV SCH (18:00)
[2018-10-27] VITALS (8 sets, daily range): BP systolic 118–133; BP diastolic 60–75; PULSE 67–88; RESP 18–20
[2018-10-27] MEDS: LEVOTHYROXINE 75 MCG TAB PO SCH (06:10)
[2018-10-27] MEDS: PANTOPRAZOLE (EC) 40 MG TAB PO SCH (06:10)
--- NOTE | 2018-10-27 07:14 | CONS ---
Assessment/Plan Assessment/Plan Hospital Course (Demo Recall) 1) acute SOB this is likely multifactorial she is anemic, her son has a cough doubt she has a bacterial infection but can not rule this out this time CT abd/pelv shows compressive atelectasis from her pleural effusions but a pnm could be hiding I will order respiratory cx get nasal PCR and nasal MRSA continue with levaquin and add flagyl d/c aztreanom check procalcitonin in a.m. pt to get tx today 10/20 - breathing is better, post paracentesis and blood tx await sputum cx on levaquin/flagyl, will repeat CXR and if improved consider d/c of antibiotics 10/21 - CXR showed slight increase in pulmonary vascular congestion sputum cx was never obtained, nasal was neg for MRSA await procalcitonin and if neg then can d/c antibiotics continue levo/flagyl at present (day 3) 10/23 - stable with breathing, day 5/8 of levo/flagyl when procalcitonin comes back if <0.5 then can d/c antibiotics 10/24 - pt did not tolerate IVIG but breathing status is back to stable day 6/8 of levo/flagyl, still await procalcitonin results to see if antibiotics can be stopped sooner 10/25 - procalcitonin was elevated continue levo/flagyl thru 10/26/1810/27 - pt is now off antibiotics WBC was WNL, a.m. labs are pending will sign off on case, thank you 2) anemia of chronic disease blood tx has been ordered 3) ESRD 4) loculated ascitic fluid from prior peritoneal dialysis if pt develops fevers or elevated WBC may need to due paracentesis to r/o infection 10/20 - paracentesis performed but no studies done on it no abd pain, fevers or elevated WBC, doubt septic peritonitis 10/21 - agree with removal of PD catheter 5) CAD with pacer 6)HTN 7) thrombocytopenia this is not new 10/23 - pt has been started on IVIG, minimal increase in platelets to date 10/24 - pt did not tolerate IVIG and it has been stopped Consultation Date/Type/Reason Admit Date/Time Oct 19, 2018 at 02:51 Initial Consult Date 10/19/18 Type of Consult ID Requesting Provider: LOUIS,DOMINIC V. [employer]ER Date/Time of Note DATE: 10/27/18 TIME: 07:12 24 HR Interval Summary Free Text/Dictation minimal cough but no phlegm no abd pain pt feels so-so no V, D Exam/Review of Systems Exam Vitals Vital Signs Date Temp Pulse Resp B/P (MAP) Pulse Ox O2 O2 Flow FiO2 Time Delivery Rate 10/27/18 98.2 82 19 129/60 100 04:20 (83) 10/26/18 3.0 21:35 10/26/18 Nasal 21:15 Cannula Intake and Output 10/26/18 10/26/18 10/27/18 1515:00 23:00 07:00 IntakeIntake Total 500 ml 100 ml OutputOutput Total 1400 ml BalanceBalance -900 ml 100 ml Constitutional: alert ENMT: mucosa pink and moist Respiratory: clear to auscultation Cardiovascular: regular rate and rhythm Gastrointestinal: firm Results Result Diagram: 10/26/18 0554 10/26/18 0554 Medications Medication Current Medications IV Flush (NS 3 ml) 3 ml PER PROTOCOL IV ; Start 10/19/18 at 03:00 Ondansetron HCl (Zofran Inj) 4 mg Q6H PRN IV NAUSEA/VOMITING; Start 10/19/18 at 03:00 Acetaminophen (Tylenol Tab) 650 mg Q6H PRN PO .PAIN 1-3 OR TEMP; Start 10/19/18 at 03:00 Docusate Sodium (Colace) 100 mg Q12H PRN PO .CONSTIPATION; Start 10/19/18 at 03:00 Bisacodyl (Dulcolax) 5 mg DAILY PRN PO .CONSTIPATION; Start 10/19/18 at 03:00 Miscellaneous Information (Pending [facility] Order For Wound Care) This patient danielle... PRN PRN XX WOUND CARE; Start 10/19/18 at 12:30 Epoetin Margarito (Epogen (Esrd)) 10,000 units MoWeFr@17 SC Last administered on 10/26/18at 18:00; Admin Dose 10,000 UNITS; Start 10/21/18 at 17:00 Amiodarone HCl (Cordarone) 200 mg BID PO Last administered on 10/26/18at 21:16; Admin Dose 200 MG; Start 10/20/18 at 11:00 Folic Acid (Folic Acid) 1 mg DAILY PO Last administered on 10/26/18 18:00; Admin Dose 1 MG; Start 10/20/18 at 11:00 Levothyroxine Sodium (Synthroid) 75 mcg BEFORE BREAKFAST PO Last administered on 10/27/18 06:10; Admin Dose 75 MCG; Start 10/21/18 at 07:00 Multivit/Ca Carb/ B Cmplx/FA/Prenat (Iram-Xiomara) 1 tab DAILY PO Last administered on 10/26/18 18:00; Admin Dose 1 TAB; Start 10/20/18 at 11:00 Pantoprazole (Protonix Tab) 40 mg DAILY@0600 PO Last administered on 10/27/18 06:10; Admin Dose 40 MG; Start 10/20/18 at 11:00 Guaifenesin (Robitussin Liquid Cup) 200 mg Q4H PRN PO COUGH Last administered on 10/22/18 17:15; Admin Dose 200 MG; Start 10/22/18 at 17:00 Methylprednisolone Sodium Succinate (Solu-Medrol) 80 mg DAILY IV Last administered on 10/26/18at 18:00; Admin Dose 80 MG; Start 10/24/18 at 09:30 Albumin Human 100 ml @ 100 mls/hr DURING DIALYSIS PRN IV LOW BP; Start 10/26/18 at 10:00 AJIT DICKINSON MD Oct 27, 2018 07:14
--- NOTE | 2018-10-27 08:57 | PN ---
DATE: 10/27/2018 SUBJECTIVE: The patient had hemodialysis yesterday, tolerated well. OBJECTIVE: VITAL SIGNS: Blood pressure is 131/65, pulse 79, respirations 20, temperature 98.0. HEENT: Head is normocephalic. NECK: Supple. HEART: Regular rate. LUNGS: Show diminished breath sounds at base. ABDOMEN: Soft, nontender to palpation without rebound or guarding. EXTREMITIES: Negative for clubbing, cyanosis, no edema. DERMATOLOGIC: No rashes. MUSCULOSKELETAL: No joint effusion. NEUROLOGIC: No change in exam. MEDICATIONS: Have been reviewed. LABORATORY DATA: Has been reviewed. ASSESSMENT AND PLAN: 1. End-stage renal disease, plan for hemodialysis tomorrow. 2. Anemia. Continue to monitor hemoglobin and hematocrit levels. Continue Epogen. 3. Thrombocytopenia, possibly due to hip. Platelet levels have slowly been improving. Continue to monitor, avoiding heparin with all hemodialysis use. 4. Volume overload. Continue ultrafiltration dialysis. 5. Systemic inflammatory response syndrome, continued antibiotic regimen. 6. Coronary artery disease. Continue medical management. 7. Arrhythmia. The patient has history of pacemaker. 8. Hypertension. The patient is now hypotensive. Continue to monitor. 9. Dialysis access. The patient has a right femoral PermCath. PD catheter will be removed once pat ient is medically optimized. Dictated By: SARIKA CRAIG/EZIO Conf#: [id number] DID#: [id number] CC: HARI CRUZ MD;*EndCC*
[2018-10-27] MEDS: FOLIC ACID 1 MG TAB PO SCH (09:14)
[2018-10-27] MEDS: METHYLPREDNISOLONE 125 MG INJ IV SCH (09:14)
[2018-10-27] MEDS: AMIODARONE 200 MG TAB PO SCH (09:14)
[2018-10-27] MEDS: MULTIVIT/CA CARB/B CMPLX/FA TAB PO SCH (09:14)
--- NOTE | 2018-10-27 10:12 | PN ---
Date/Time of Note Date/Time of Note DATE: 10/27/18 TIME: 10:01 Assessment/Plan Lines/Catheters IV Catheter Type (from [facility]): yoli cath Moon in Place (from [facility]): No Assessment/Plan Chief Complaint/Hosp Course 1. ESRD with HD, status post PD (no longer in use over 1 year) -Limit nephrotoxic meds -Renally dose meds -HD Per renal -DC PD once patient medically optimized 2. Pancytopenia: s/p ivig with response; Positive heparin dependent antiplatelet antibodies -cont optimization per heme -Supportive, transfusions as needed 3. Large volume loculated ascites: Status post paracentesis -Fluid management -Paracentesis as needed -DC PD as above 4. Shortness of breath with small bilateral pleural effusions possible pulm edema -Fluid/medical management -consider pulmonary consult 5. Hypothyroidism: -Medical management 6. Hypertension history: -Med management 7. Paraumbilical hernia: asymptomatic -eventual repair (can be done outpatient) -close monitoring for symptoms 8. Left leg wound at site of previous surgery (?graft/fistula - son unsure of procedure) -recommend vascular consult or outpatient f/u w previous team ([facility]) -local care Thank you. Patient seen and examined in collaboration with Dr. Matthew Voss. Subjective 24 Hr Interval Summary Platelets stable- Slightly improved. WBC uptick however afebrile. No fevers, chills, sob, congested cough, cp, palpitations, danielle, dizziness, nausea, vomiting, diarrhea, dysuria. Exam/Review of Systems Vital Signs Vitals Vital Signs Date Temp Pulse Resp B/P (MAP) Pulse Ox O2 O2 Flow FiO2 Time Delivery Rate 10/27/18 Nasal 3.0 09:00 Cannula 10/27/18 79 08:09 10/27/18 98.0 20 131/65 96 07:23 (87) Intake and Output 10/26/18 10/26/18 10/27/18 1515:00 23:00 07:00 IntakeIntake Total 500 ml 100 ml OutputOutput Total 1400 ml BalanceBalance -900 ml 100 ml Exam Free Text/Dictation Constitutional: alert, oriented, frail, other (Chronically ill-appearing) Psych: nl mood/affect; No anxiety Head: normocephalic, atraumatic Eyes: nl conjunctiva, EOMI, nl lids, nl sclera ENMT: nl external ears & nose, nl lips & teeth, mucosa pink and moist Neck: supple, non-tender, jvd Respiratory: normal air movement; No congested cough, No intercostal retraction, No labored breathing Cardiovascular: regular rate and rhythm, nl pulses; No edema Gastrointestinal: soft, non-tender, other (PD catheter (no paty-incisional erythema/drainage from site); periumbilical hernia No distended Genitourinary - Female: nl external genitalia Musculoskeletal: nl extremities to inspection; No joint tenderness Extremities: normal pulses Neurological: nl mental status, nl speech, nl strength Skin: nl turgor, ecchymosis, left thigh wound (scant drainage, minimal periwound erythema) Results Result Diagram: 10/27/18 0737 10/27/18 0737 RADHA MEJIA NP Oct 27, 2018 10:11
--- NOTE | 2018-10-27 10:37 | PDOCDIS ---
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 We recommended no heparin products during your hemodialysis. This was communicated to your hemodialysis center and your service worker helper. Please make sure you check with the dialysis staff that they are not administering heparin with dialysis. You need to check your platelet count in 1 week. I have given the information of Dr. Marin who is a blood doctor who can do this test as outpatient and when your platelet count is stable, you can follow-up with surgeon Dr. Voss and determine when is the best time to remove the peritoneal dialysis catheter. Name, Degree Kashif Marin MD Specialty Hematology/Oncology Comments Office Address [address] [place] [address] Office Name, Degree Matthew Voss MD Specialty General Surgery Comments Office Address [address] [place] [address] Office DOMINIC LOUIS NP Oct 27, 2018 10:37
--- NOTE | 2018-10-27 10:47 | DS ---
Date/Time of Note Date/Time of Note DATE: 10/27/18 TIME: 10:43 Discharge Summary Admission/Discharge Info Admit Date/Time Oct 19, 2018 at 02:51 Discharge Date/Time Discharge Diagnosis 1. Loculated ascites,likely from calcified/sclerosed PD catheter (chronic PD cath in place>1 yr after being started on HD)/:S/P PARA -Plan is PD catheter removal once thrombocytopenia is corrected. 2. ESRD, hemodialysis patient (MWF) 3. Severe Thrombocytopenia, most likely HIT as Maricarmen weak positive for heparin- induced platelet antibody. 4.Volume overload/pleural effusion 2/2 ESRD 5.Chronic Periumbilical hernia 6.s/p Upper respiratory infection 7. Hypothyroidism 8. Arrhythmias, status post pacemaker placed. 9. Hypertension 10. Anemia of ESRD Patient Condition: Stable Consults Dr. Marin, hematology Dr. Voss, surgeon Dr. Casanova, nephrology Procedures 10/19/2018: Paracentesis with 4.5 L, fluid studies never sent for unclear reasons 10/19/2018. CT abdomen and pelvis. IMPRESSION: 1. Large volumes of loculated ascites with peritoneal calcifications secondary to chronic peritoneal dialysis. 2. Diffuse generalized anasarca. 3. Peritoneal dialysis catheter in place. 4. Moderately large bilateral pleural effusions with bilateral lower lobe compressive atelectasis. Please note that in the absence of intravenous contrast the study does not evaluate the patency of the vasculature. Hospital Course 58 yo female w/ESRD/HD (M,W,F),unused PD cath in place,ascites requiring paracetesis, here w/SOB,cough...found to have a URI, loculated ascites w/calcified PD cath. Patient was treated appropriately for respiratory infection and her symptoms resolved. She finished a course of antibiotic. Cultures negative. Patient was being dialyzed by a nephrology. Renal function was monitored closely. In terms of loculated ascites with calcified peritoneal dialysis catheter which has been sitting there for more than in ER, patient underwent paracentesis 10/19/2018 with 4.5 L, fluid studies never sent for unclear reasons=>stable liver fxn, no evidence of cirrhosis,no fever/chills to suspect peritonitis. Best recommendation is to take PD cath out. However, patient had profound thrombocytopenia which precludes her from getting surgical intervention. She was being followed by mid level provider and surgeon. She was given IVIG, steroids without expected improvement in platelets. Patient was then noted with positive heparin-induced platelet antibody via MARICARMEN test. At this time, recommendation is to remove all heparin products with hemodialysis. Platelet count remained at baseline ranging from 25,000-28,000. There was no evidence of bleeding. At this time, as per mid level provider, it may take a week or more to get this thrombocytopenia stabilized. Patient is hemodialysis clinic and data consultant was notified. Patient and family educated on not to receive any heparin product during hemodialysis and they verbalized understanding. At this time, we have decided to discharge patient with appropriate outpatient follow-up and heparin free dialysis for a week or 2 and to have her platelet count repeated with hematology office to determine appropriate timing and scheduling for PD catheter removed. Overall, patient with debility as such I also discussed sending her to a alf however, patient also has family support and did not request for any further assistance upon discharge. Approximately 60 m spent on coordinating the discharge on this patient. Patient was seen in collaboration with Dr. Alba. Home Meds Reported Medications Azithromycin* (Azithromycin*) 250 Mg Tablet, 250 MG PO DAILY, #4 TAB STARTED 08-08-18 FOR 5 DAYS 08/10/18 Ranitidine Hcl* (Ranitidine Hcl*) 150 Mg Tablet, 150 MG PO HS, #30 TAB 08/10/18 Folic Acid* (Folic Acid*) 1 Mg Tablet, 1 MG PO DAILY, TAB 08/10/18 Amiodarone Hcl* (Amiodarone Hcl*) 200 Mg Tablet, 200 MG PO BID, #60 TAB 08/10/18 Pantoprazole* (Protonix*) 40 Mg Tablet.dr, 40 MG PO DAILY, TAB 08/10/18 Multivit/Ca Carb/B Cmplx/Fa* (Iram-Xiomara*) 1 Tab Tab, 1 TAB PO DAILY, TAB 08/10/18 Amlodipine Besylate* (Norvasc*) 5 Mg Tablet, 5 MG PO DAILY, TAB 08/10/18 Levothyroxine Sodium* (Levoxyl*) 75 Mcg Tablet, 75 MCG PO BEFORE BREAKFAST, #30 TAB 08/10/18 Follow-up Plan 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 We recommended no heparin products during your hemodialysis. This was communicated to your hemodialysis center and your data consultant. Please make sure you check with the dialysis staff that they are not administering heparin with dialysis. You need to check your platelet count in 1 week. I have given the information of Dr. Marin who is a blood doctor who can do this test as outpatient and when your platelet count is stable, you can follow-up with surgeon Dr. Voss and determine when is the best time to remove the peritoneal dialysis catheter. Name, Degree Kashif Marin MD Specialty Hematology/Oncology Comments Office Address [address] [place] [address] Office Name, Degree Matthew Voss MD Specialty General Surgery Comments Office Address [address] [place] [address] Office Primary Care Provider [facility]. Pending Labs Laboratory Tests Test 10/27/18 07:37 White Blood Count 11.3 10^3/ul (4.8-10.8) Red Blood Count 2.80 10^6/ul (4.20-5.40) Hemoglobin 8.8 g/dl (12.0-16.0) Hematocrit 28.5 % (37.0-47.0) Mean Corpuscular Volume 101.8 fl (82.0-101.0) Mean Corpuscular Hemoglobin 31.4 pg (29.0-33.0) Mean Corpuscular Hemoglobin Concent 30.9 g/dl (32.0-37.0) Red Cell Distribution Width 19.1 % (11.5-14.5) Platelet Count 27 10^3/UL (140-415) Mean Platelet Volume 13.1 fl (7.4-10.4) Immature Granulocytes % 0.700 % (0.001-0.429) Neutrophils % % (39.0-77.0) Segmented Neutrophils % (Manual) 93 % (39-77) Band Neutrophils % (Manual) 3 % (0-4) Lymphocytes % % (15.0-51.0) Lymphocytes % (Manual) 3 % (15-51) Monocytes % % (0.0-11.0) Monocytes % (Manual) 1 % (0-11) Eosinophils % % (0.0-7.0) Basophils % % (0.0-2.0) Nucleated Red Blood Cells % 0.4 /100WBC (0.0-0.0) Immature Granulocytes # 0.080 10^3/ul (0.0-0.031) Neutrophils # 10^3/ul (1.6-7.5) Neutrophils # (Manual) 10.5 10^3/ul (1.6-7.5) Band Neutrophils # 0.3 10^3/ul (0.0-0.6) Lymphocytes (Manual) 0.3 10^3/ul (0.8-2.9) Lymphocytes # 10^3/ul (0.8-2.9) Monocytes # 10^3/ul (0.3-0.9) Monocytes # (Manual) 0.1 10^3/ul (0.3-0.9) Eosinophils # 10^3/ul (0.0-0.5) Basophils # 10^3/ul (0.0-0.1) Nucleated Red Blood Cells # 10^3/ul (0.0-0.0) Platelet Estimate SIG DECREASED Polychromasia 1+ (0-0) Poikilocytosis 1+ (0-0) Anisocytosis 2+ (0-0) Macrocytosis 1+ (0-0) Sodium Level 143 mmol/L (135-144) Potassium Level 3.8 mmol/L (3.5-5.1) Chloride Level 101 mmol/L (97-110) Carbon Dioxide Level 30 mmol/L (21-31) Anion Gap 12 (5-13) Blood Urea Nitrogen 32 mg/dl (7-20) Creatinine 2.31 mg/dl (0.44-1.00) Est Glomerular Filtrat Rate mL/min 22 mL/min (>60) Glucose Level 126 mg/dl (70-220) Calcium Level 9.0 mg/dl (8.4-10.2) DOMINIC LOUIS NP Oct 27, 2018 10:47
[2018-10-27] MEDS ORDERED: BALSAM PERU/CASTOR OIL 60 GM TUBE TOP SCH (21:00)
== END 2018-10-27 15:57 | disposition home or self-care (01) | DRG 808 ==
LOC: E/R 23:56 → 6WM 10-19 02:51 → MS1 10-21 12:50 → TEL 10-22 18:48
PROVIDERS: ADMIT Family Medicine; ATTEND Family Medicine
PROC: 0W9G3ZZ Drainage of Peritoneal Cavity, Percutaneous Approach (ICD-10-PCS; principal; 2018-10-19)
PROC: 30233R1 Transfusion of Nonautologous Platelets into Peripheral Vein, Percutaneous Approach (ICD-10-PCS; 2018-10-19)
PROC: 30233N1 Transfusion of Nonautologous Red Blood Cells into Peripheral Vein, Percutaneous Approach (ICD-10-PCS; 2018-10-19)
PROC: 5A1D70Z Performance of Urinary Filtration, Intermittent, Less than 6 Hours Per Day (ICD-10-PCS; 2018-10-19)
DX: D61.818 Other pancytopenia (principal); K65.1 Peritoneal abscess; N18.6 End stage renal disease; E43 Unspecified severe protein-calorie malnutrition; J18.9 Pneumonia, unspecified organism; T85.71XA Infection and inflammatory reaction due to peritoneal dialysis catheter, initial encounter; R18.8 Other ascites; J90 Pleural effusion, not elsewhere classified; Z68.1 Body mass index [BMI] 19.9 or less, adult; I12.0 Hypertensive chronic kidney disease with stage 5 chronic kidney disease or end stage renal disease; R65.10 Systemic inflammatory response syndrome (SIRS) of non-infectious origin without acute organ dysfunction; Z95.0 Presence of cardiac pacemaker; Z99.2 Dependence on renal dialysis; E11.22 Type 2 diabetes mellitus with diabetic chronic kidney disease; I70.0 Atherosclerosis of aorta; D63.8 Anemia in other chronic diseases classified elsewhere; I25.10 Atherosclerotic heart disease of native coronary artery without angina pectoris; E03.9 Hypothyroidism, unspecified; K42.9 Umbilical hernia without obstruction or gangrene; J06.9 Acute upper respiratory infection, unspecified; Z76.82 Awaiting organ transplant status; D75.82 Heparin induced thrombocytopenia (HIT)
CPT/HCPCS: 36415; 36430; 36600; 71045; 74176; 80048; 80053; 80061; 82270; 82607; 82803; 83036; 83605; 83735; 83880; 84100; 84145; 84436; 84439; 84443; 84484; 85025; 85335; 85610; 85670; 85730; 86022; 86038; 86703; 86704; 86706; 86709; 86803; 86850; 86870; 86900; 86901; 86920; 87040; 87081; 87275; 87276; 87279; 87280; 87340; 87400; 90935; 93005; 93306; 96361; 96365; 96375; J1566; J1940; J1956; J2930; J7030; J7040; P9016; P9035; P9047; Q4081

== ENCOUNTER 2018-11-21 02:16 | Inpatient (IN) | payer OTHER ==
[~2018-11-21] VITALS: Ht 152.4 cm; Wt 53.0 kg
[2018-11-21] VITALS (41 sets, daily range): BP systolic 75–127; BP diastolic 50–70; PULSE 68–96; RESP 11–21; Ht 152.4 cm; Wt 53.0 kg
[~2018-11-21 02:16] MED LIST changes: -AMLO5TAB4 PO; -AZIT250T13 PO
[2018-11-21] MEDS ORDERED: DEXTROSE 50% 50 ML SYRINGE ONE (02:28)
[2018-11-21] MEDS ORDERED: DEXTROSE 50% 50 ML SYRINGE IV ONE (02:30)
--- NOTE | 2018-11-21 02:30 | ERD ---
ER Documentation Chief Complaint Chief Complaint ALOC S/P TAKING NORCO HPI The patient is a 58-year-old female, presenting to the ER because of altered level consciousness after she took a Salem about an hour prior to arrival. She was discharged from [facility] 2 days ago, where she stayed about 2-week due to infected graft in her left lower extremity. She is taking anti- fungal and antibiotic intravenously, however the family does not know the name. She took the Salem because of the pain. Her blood pressure was 77/55 in triage, therefore she was brought to the ER immediately. She is awake, alert, able to a nswer questions and follows commands. Accu-Chek was only 24, was immediately treated with 2 amp of D50 IV with good response. She does not smoke or drink Medical history: Chronic kidney disease on hemodialysis Friday and Friday, hypothyroidism, CAD, cardiac arrhythmia, hypertension Past surgical history: Pacemaker, extensive right groin infected graft debridement, partial thyroidectomy ROS All systems reviewed and are negative except as per history of present illness. Medications Home Meds Reported Medications Folic Acid* (Folic Acid*) 1 Mg Tablet, 1 MG PO DAILY, TAB 08/10/18 Amiodarone Hcl* (Amiodarone Hcl*) 200 Mg Tablet, 200 MG PO BID, #60 TAB 08/10/18 Pantoprazole* (Protonix*) 40 Mg Tablet.dr, 40 MG PO DAILY, TAB 08/10/18 Multivit/Ca Carb/B Cmplx/Fa* (Iram-Xiomara*) 1 Tab Tab, 1 TAB PO DAILY, TAB 08/10/18 Levothyroxine Sodium* (Levoxyl*) 75 Mcg Tablet, 75 MCG PO BEFORE BREAKFAST, #30 TAB 08/10/18 Discontinued Reported Medications Ranitidine Hcl* (Ranitidine Hcl*) 150 Mg Tablet, 150 MG PO HS, #30 TAB 08/10/18 Allergies Allergies: Coded Allergies: Penicillins (Verified Allergy, Unknown, 08/10/18) tazobactam (Verified Allergy, Unknown, 08/10/18) vancomycin (Verified Allergy, Unknown, 08/10/18) PMhx/Soc History of Surgery: Yes (partial thyroidectomy, tubal ligation, fistula for hd ) Anesthesia Reaction: No Hx Neurological Disorder: No Hx Respiratory Disorders: No Hx Cardiac Disorders: Yes (pacemaker, htn) Hx Psychiatric Problems: No Hx Miscellaneous Medical Probl: No Hx Alcohol Use: No Hx Substance Use: No Hx Tobacco Use: No Physical Exam Vitals Vital Signs Date Temp Pulse Resp B/P (MAP) Pulse Ox O2 O2 Flow FiO2 Time Delivery Rate 11/21/18 Nasal 2 02:35 Cannula 11/21/18 96.5 75 15 97/54 (68) 100 Nasal 2.0 02:29 Cannula 11/21/18 96.5 105 15 77/55 (62) 95 02:18 Physical Exam Const: Moderate acute distress. Dehydrated Head: Atraumatic. Eyes: Normal Conjunctiva. ENT: Normal External Ears, Nose and Mouth. Neck: Full range of motion. No meningismus. Resp: Decreased breath sounds bilaterally. Cardio: Regular rate and rhythm. Abd: Soft, non distended, normal bowel sounds, non tender. Skin: No petechiae or rashes. Back: No midline or flank tenderness. Ext: No cyanosis, or edema. eroded Neur: Awake and alert. No focal deficit Psych: Anxious Result Diagram: 11/21/1822411/21/18224 Results 24 hrs Laboratory Tests Test 11/21/18 02:25 11/21/18 02:26 11/21/18 02:37 11/21/18 02:48 White Blood 3.1 10^3/ul Count Red Blood Count 2.77 10^6/ul Hemoglobin 8.5 g/dl Hematocrit 27.6 % Mean Corpuscular 99.6 fl Volume Mean Corpuscular 30.7 pg Hemoglobin Mean Corpuscular 30.8 g/dl Hemoglobin Anh nt Red Cell 23.4 % Distribution Width Platelet Count 34 10^3/UL Mean Platelet 12.7 fl Volume Immature 0.000 % Granulocytes % Neutrophils % % Segmented 34 % Neutrophils % (Manual) Band Neutrophils 25 % % (Manual) Lymphocytes % % Lymphocytes % 19 % (Manual) Reactive 7 % Lymphocytes % (Manual) Monocytes % % Monocytes % 11 % (Manual) Eosinophils % % Basophils % % Basophils % 1 % (Manual) Metamyelocytes % 1 % (manual) Myelocytes % 1 % (Manual) Promyelocytes % 1 % (Manual) Nucleated Red 0.0 /100WBC Blood Cells % Immature 0.000 10^3/ul Granulocytes # Neutrophils # 10^3/ul Neutrophils # 1.1 10^3/ul (Manual) Band Neutrophils 0.7 10^3/ul # Lymphocytes 0.5 10^3/ul (Manual) Lymphocytes # 10^3/ul Reactive 0.2 10^3/ul Lymphocytes # Monocytes # 10^3/ul Monocytes # 0.3 10^3/ul (Manual) Eosinophils # 10^3/ul Basophils # 10^3/ul Basophils # 0.0 10^3/ul (Manual) Metamyelocytes # 0.0 10^3/ul Myelocytes # 0.0 10^3/ul Promyelocytes # 0.0 10^3/ul Nucleated Red 10^3/ul Blood Cells # Platelet DECREASED Estimate Giant Platelets 2 % Poikilocytosis 3+ Anisocytosis 2+ Macrocytosis 2+ Target Cells 1+ Ovalocytes 1+ Acanthocytes 1+ Prothrombin Time 18.9 Sec Prothrombin Time 1.5 Ratio INR 1.57 International Normalized Ratio Activated 46.6 Sec Partial Thrombop last Time Sodium Level 140 mmol/L Potassium Level 3.5 mmol/L Chloride Level 104 mmol/L Carbon Dioxide 28 mmol/L Level Anion Gap 8 Blood Urea 25 mg/dl Nitrogen Creatinine 1.74 mg/dl Est Glomerular 30 mL/min Filtrat Rate mL/min Glucose Level 23 mg/dl Calcium Level 8.5 mg/dl Total Bilirubin 0.4 mg/dl Direct Bilirubin 0.00 mg/dl Indirect 0.4 mg/dl Bilirubin Aspartate Amino 27 IU/L Transf (AST/SGOT ) Alanine < 6 IU/L Aminotransferase (ALT/SGPT) Alkaline 123 IU/L Phosphatase Troponin I < 0.012 ng/ml Total Protein 6.3 g/dl Albumin 3.1 g/dl Globulin 3.20 g/dl Albumin/Globulin 0.96 Ratio Bedside Glucose 24 mg/dL 334 mg/dL POC Venous 1.4 mmol/L Lactate Test 11/21/18 03:28 11/21/18 04:00 Bedside Glucose 205 mg/dL Blood Gas Blood arterial Specimen Source Arterial Blood 11/21/2018 4:10:0 Date Drawn 7 AM Arterial Blood 7.283 pH (Temp corrected) Arterial Blood 50.6 mmhg pCO2 (Temp correct) Arterial Blood 117.7 mmHG pO2 (Temp corrected) Arterial Blood 23.4 mmol/L HCO3 Arterial Blood -3.2 mmol/L Base Excess Arterial Blood 97.9 mmHG Oxygen Saturatio n Morgan Test N/A Arterial Blood Right Brachial Gas Puncture Site Arterial 1.1 % Blood Carboxyhem oglobin Arterial Blood 0.1 % Methemoglobin Blood Gas A-a O2 102.1 mmHg Differential Oxyhemoglobin 96.7 % Percent Blood Gas 37.0 C Temperature Blood Gas Actual 19 Respiration Rate Blood Gas NASAL CANNULA Modality FiO2 39.0 % Blood Gas Miguel CHENG MD Critical Value Read Back Blood Gas Notified Whom Blood Gas 11/21/2018 4:17:4 Notified Time 2 AM Current Medications Medications Dose Sig/Rommel Start Time Status Last (Trade) Ordered Route PRN Stop Time Admin Dose Reason Admin Dextrose 100 ml ONCE ONCE 11/21/18 DC 11/21/18 (D50w IV 02:30 02:28 Syringe) 11/21/18 02:32 50 ml @ ONCE STAT 11/21/18 DC 11/21/18 Meropenem/Sod 100 mls/hr IVPB 03:22 04:04 ium Chloride 11/21/18 03:51 250 ml @ TITRATE IV 11/21/18 Norepinephrin 1.875 mls/ 03:30 e hr Linezolid 300 ml @ ONCE STAT 11/21/18 DC 11/21/18 300 mls/hr IVPB 03:28 04:23 11/21/18 04:27 Albumin 100 ml @ ONCE ONCE 11/21/18 DC 11/21/18 Human 100 mls/hr IV 03:30 03:51 11/21/18 04:29 Procedures/MDM [place] [id number] Radiology Main Line: [phone] DIAGNOSTIC IMAGING REPORT Patient: JARAD OSUNA : 1960 Age: 58 Sex: F MR #: [id number] DOS: 11/21/18 0230 Ordering MD: JUSTIN CHENG MD Location: E/R Room/Bed: PROCEDURE: XR Chest 1 View CLINICAL INDICATION: Shortness of breath. Possible sepsis. TECHNIQUE: VIEWS: 1 IMAGES: 1 COMPARISON: Chest x-ray dated October 22, [address] abdomen pelvis dated October 19, 2018. FINDINGS: CARDIAC AND MEDIASTINAL SILHOUETTES: The heart appears mildly enlarged. Mild aortic calcifications are present. LUNGS: Mild interstitial prominence is present with bilateral haziness suggesting small to moderate effusions with adjacent atelectasis or other consol idation, more on the right. OSSEOUS STRUCTURES: The patient appears osteopenic. LINES AND TUBES: Left-sided dual lead cardiac pacemaker remains. Presumed right femoral venous line is again seen with its tip at the level of the inferior vena cava and atrial junction. IMPRESSION: 1. Changes are again seen suggesting pulmonary congestion/edema with small to moderate effusions and atelectasis or other consolidation. RPTAT:HGST David Dumont, Physician Date Time Electronically viewed and signed by David Dumont Physician on 11/21/2018 04:32 GT/ CC: JUSTIN CHENG MD [id number] EKG: Read by emergency physician Rate/Rhythm: 71 Normal Sinus Rhythm beats per min QRS, ST, T-waves: No ST elevation, nonspecific T abnormality Impression: Abnormal EKG MEDICAL MAKING DECISION: The patient is a 58-year-old female, stenting with acute respiratory failure, acute severe sepsis, acute fluid overload, acute hypoglycemia, acute coagulopathy, pancytopenia. She was treated with 2 ampoules of D50 IV for acute hyperglycemia, Zyvox IV and meropenem IV acute severe sepsis, 100 ml albumin 25% IV with good response. She was put on BiPAP and she was able to tolerate BiPAP well The differential diagnoses considered include but are not limited to pneumonia, empyema, cellulitis, abscess, osteomyelitis, infected graft on the left lower extremity MDM: Patient's infectious symptoms have not stabilized and the patient is at risk of rapid decompensation. The patient will be admitted for careful hydration, antibiotic therapy, and infectious source control. SEVERE SEPSIS CRITERIA: Infectious source: lle infected graft End organ damage indicated by: Acute Resp Failure (sat < 92% w/o oxygen) INR > 1.5 Plt < 100 SEPSIS MANAGEMENT Time of recognition of severe sepsis: 03:20am. 3 HOUR BUNDLE Blood cultures x 2 before broad-spectrum antibiotics: [Yes] 30 ml/kg NS bolus [Not Completed b/c she has concurrent acute fluid overload Initial lactate []1.4 Repeat lactate Pending SEPTIC SHOCK ASSESSMENT: [No] lactic acid > 4.0 [No] Persistent hypotension (SBP < 90 or 40 mmHg drop, MAP < 65) despite 30 mL/kg IV fluid bolus CRITICAL CARE Critical care time [35] minutes Emergent fluid management while maintaining close respiratory support. Provision of immediate and broad-spectrum antibiotic therapy. Simultaneous assessment for possible sources in order to direct targeted therapy. Consideration for invasive and chemical support to prevent cardiopulmonary collapse. Critical care time is independent of procedures performed. Departure Diagnosis: Primary Impression: Respiratory failure, acute Additional Impressions: Severe sepsis Hypoglycemia Fluid overload Coagulopathy Pancytopenia Condition: Critical Comments I discussed the findings with the patient. I discussed the patient with Dr Santa at 4:30 am , who was made aware of the lab, the treatment, the patient condition. The patient is admitted to icu Disclaimer: Inadvertent spelling and grammatical errors are likely due to EHR/dictation software use and do not reflect on the overall quality of patient care. Also, please note that the electronic time recorded on this note does not necessarily reflect the actual time of the patient encounter. JUSTIN CHENG MD Nov 21, 2018 02:30
[2018-11-21] MEDS ORDERED: MEROPENEM 1 GM/50ML(PMX) 50 ML IVPB STA (03:22)
[2018-11-21] MEDS ORDERED: LINEZOLID 600 MG/300 ML (PMX) 300 ML IVPB STA (03:28)
[2018-11-21] MEDS ORDERED: ALBUMIN HUMAN 25% 100 ML IV ONE ×2 (03:30→17:30)
[2018-11-21] MEDS ORDERED: NORepinephrine 8MG/250 ML (PMX 250 ML IV SCH (03:30)
[2018-11-21] MEDS ORDERED: ALBUTEROL/IPRATROPIUM (NEB) 3 ML AMP NEB PRN (05:30)
[2018-11-21] MEDS ORDERED: ACETAMINOPHEN 650MG/20.3ML CUP PO PRN (05:30)
[2018-11-21] MEDS: DEXTROSE 10% 1,000 ML IV SCH ×2 (05:45→19:04)
--- NOTE | 2018-11-21 07:07 | HP ---
Date/Time of Note Date/Time of Note DATE: 11/21/18 TIME: 06:58 Assessment/Plan VTE Prophylaxis SCD applied (from Nsg): Yes Pharmacological prophylaxis: NA/contraindicated Pharm contraindication: thrombocytopenia Lines/Catheters IV Catheter Type (from Nrsg): Saline Lock Assessment/Plan Assessment/Plan 1. Acute encephalopathy: Secondary to severe hypoglycemia -Status post treatment in the ER. Patient now more appropriate and mentation at baseline per son, who is at the bedside -Head CT negative for acute findings -Monitor closely 2. Severe hypoglycemia: No history of diabetes and patient not on any insulin or sulfonylurea or any other diabetic medication -This could be from decreased p.o. intake -Monitor closely 3. Hypercapnic respiratory failure -Supplemental oxygen, bronchodilators -Continue as needed BiPAP -Pulmonary consult in a.m. 4. 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, where she had procedure. Her son, which was found to have fungus in her wound for which she was given fluconazole. Will obtain records -will continue fluconazole for now -Venous study was negative for DVT -ID, podiatry and wound care consult 5. ESRD: Nephrology consult 6. Pancytopenia: Patient had workup here during recent hospitalization. 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 Per son, patient did receive platelet transfusion at [facility] 7. Hypothyroidism: Continue Synthroid 8. Hypertension: BP is in acceptable range 9. Pacemaker: No acute issue 10. Ascites: Status post paracentesis about 3 weeks ago with removal of 4.5 L -No need for emergent paracentesis 11. Chronic peritoneal dialysis: This is not being used. Not being removed because of the severe thrombocytopenia. This can be addressed at [facility] where she usually gets her care 12. Failure to thrive: Patient is very cachectic -Nutrition consult Result Diagram: 11/21/1822411/21/18224 Results 24hrs Laboratory Tests Test 11/21/18 02:25 11/21/18 02:26 11/21/18 02:37 11/21/18 02:48 White Blood 3.1 #L Count Red Blood Count 2.77 L Hemoglobin 8.5 L Hematocrit 27.6 L Mean Corpuscular 99.6 Volume Mean Corpuscular 30.7 Hemoglobin Mean Corpuscular 30.8 L Hemoglobin Anh nt Red Cell 23.4 #H Distribution Width Platelet Count 34 #L Mean Platelet 12.7 H Volume Immature 0.000 L Granulocytes % Neutrophils % Segmented 34 L Neutrophils % (Manual) Band Neutrophils 25 H % (Manual) Lymphocytes % Lymphocytes % 19 (Manual) Reactive 7 H Lymphocytes % (Manual) Monocytes % Monocytes % 11 (Manual) Eosinophils % Basophils % Basophils % 1 (Manual) Metamyelocytes % 1 H (manual) Myelocytes % 1 H (Manual) Promyelocytes % 1 H (Manual) Nucleated Red 0.0 Blood Cells % Immature 0.000 Granulocytes # Neutrophils # Neutrophils # 1.1 L (Manual) Band Neutrophils 0.7 H # Lymphocytes 0.5 L (Manual) Lymphocytes # Reactive 0.2 H Lymphocytes # Monocytes # Monocytes # 0.3 (Manual) Eosinophils # Basophils # Basophils # 0.0 (Manual) Metamyelocytes # 0.0 Myelocytes # 0.0 Promyelocytes # 0.0 Nucleated Red Blood Cells # Platelet DECREASED Estimate Giant Platelets 2 H Poikilocytosis 3+ Anisocytosis 2+ Macrocytosis 2+ Target Cells 1+ Ovalocytes 1+ Acanthocytes 1+ Prothrombin Time 18.9 H Prothrombin Time 1.5 Ratio INR 1.57 International Normalized Ratio Activated 46.6 H Partial Thrombop last Time Sodium Level 140 Potassium Level 3.5 Chloride Level 104 Carbon Dioxide 28 Level Anion Gap 8 Blood Urea 25 H Nitrogen Creatinine 1.74 H Est Glomerular 30 L Filtrat Rate mL/min Glucose Level 23 *L Calcium Level 8.5 Total Bilirubin 0.4 Direct Bilirubin 0.00 Indirect 0.4 Bilirubin Aspartate Amino 27 Transf (AST/SGOT ) Alanine < 6 L Aminotransferase (ALT/SGPT) Alkaline 123 H Phosphatase Troponin I < 0.012 Total Protein 6.3 Albumin 3.1 L Globulin 3.20 Albumin/Globulin 0.96 Ratio Bedside Glucose 24 *L 334 H POC Venous 1.4 Lactate Test 11/21/18 03:28 11/21/18 04:00 11/21/18 04:53 11/21/18 05:59 Bedside Glucose 205 135 153 Blood Gas Blood arterial Specimen Source Arterial Blood 11/21/2018 4:10: Date Drawn 07 AM Arterial Blood 7.283 *L pH (Temp corrected) Arterial Blood 50.6 H pCO2 (Temp correct) Arterial Blood 117.7 H pO2 (Temp corrected) Arterial Blood 23.4 HCO3 Arterial Blood -3.2 L Base Excess Arterial Blood 97.9 Oxygen Saturatio n Morgan Test N/A Arterial Blood Right Brachial Gas Puncture Site Arterial 1.1 Blood Carboxyhem oglobin Arterial Blood 0.1 Methemoglobin Blood Gas A-a O2 102.1 H Differential Oxyhemoglobin 96.7 Percent Blood Gas 37.0 Temperature Blood Gas Actual 19 Respiration Rate Blood Gas NASAL CANNULA Modality FiO2 39.0 Blood Gas Miguel CHENG MD Critical Value Read Back Blood Gas Notified Whom Blood Gas 11/21/2018 4:17: Notified Time 42 AM Test 11/21/18 06:00 Blood Gas Blood arterial Specimen Source Arterial Blood 11/21/2018 6:10: Date Drawn 45 AM Arterial Blood 7.307 L pH (Temp corrected) Arterial Blood 53.5 H pCO2 (Temp correct) Arterial Blood 217.6 H pO2 (Temp corrected) Arterial Blood 26.2 H HCO3 Arterial Blood -0.4 Base Excess Arterial Blood 99.1 H Oxygen Saturatio n Morgan Test N/A Arterial Blood Right Brachial Gas Puncture Site Arterial 0.5 Blood Carboxyhem oglobin Arterial Blood 0.2 Methemoglobin Blood Gas A-a O2 78.7 H Differential Oxyhemoglobin 98.4 Percent Blood Gas 37.0 Temperature Blood Gas 18.0 Respiration Rate Blood Gas Actual 18 Respiration Rate Blood Gas MASK - BIPAP Modality FiO2 50.0 Blood Gas 13 Pressure Support Blood Gas 18/5 IPAP/EPAP Ratio Blood Gas Notified Whom Blood Gas 11/21/2018 6:25: Notified Time 38 AM HPI/ROS Admit Date/Time Admit Date/Time Nov 21, 2018 at 04:53 Hx of Present Illness This is a 58-year-old female with history of hypertension, hypothyroidism, pancytopenia, pacemaker, ESRD, ascites, bilateral pleural effusion and left leg infection with a history of recent graft. Patient was brought to the ER for al tered mentation. Patient has a left upper leg infection and is status post graft in September of this year. Patient was admitted recently for infected left leg at [facility] and was just discharged 2 days ago. Patient was noted to be altered an hour after she took Eldred. Upon arrival to the ER however, she was found to be hypotensive with a blood pressure of 77/55 and a severely hypoglycemic with a blood glucose of 24. She was given dextrose with improvement in blood glucose. Her blood pressure also responded to IV fluid. While in the ER, patient became more appropriate. She has however been placed on BiPAP for hypercapnic respiratory failure. Patient was admitted here recently for sepsis. CT at that time shows large volume of loculated ascites with peritoneal calcifications secondary to chronic peritoneal dialysis. She underwent paracentesis with removal of 4.5 L of fluid. Patient was pancytopenic with severe thrombocytopenia. He was mentioned documentation that thrombocytopenia was thought to be possibly from HIT. Her chronic peritoneal dialysis was not removed because of the thrombocytopenia. PMH/Family/Social Past Medical History Medical History: other (See HPI) Medications Current Medications Ondansetron HCl (Zofran Inj) 4 mg Q6H PRN IV NAUSEA AND/OR VOMITING; Start 11/21/18 at 05:30 Albuterol/ Ipratropium (Duoneb) 3 ml Q2H RESP THERAPY PRN NEB SHORTNESS OF BREATH; Start 11/21/18 at 05:30 Acetaminophen (Tylenol Liquid) 650 mg Q6H PRN PO PAIN LEVEL 1-3 OR FEVER; Star t 11/21/18 at 05:30 Pantoprazole (Protonix Iv) 40 mg DAILY@06 IV ; Start 11/21/18 at 06:00 Amiodarone HCl (Cordarone) 200 mg BID PO ; Start 11/21/18 at 09:00 Folic Acid (Folic Acid) 1 mg DAILY PO ; Start 11/21/18 at 09:00 Levothyroxine Sodium (Synthroid) 75 mcg BEFORE BREAKFAST PO ; Start 11/21/18 at 07:00 Furosemide (Lasix) 20 mg Q12 IV ; Start 11/21/18 at 09:00 Dextrose 1,000 ml @ 75 mls/hr [id number] IV Last administered on 11/21/18at 05:45; Admin Dose 75 MLS/HR; Start 11/21/18 at 06:00 Coded Allergies: Penicillins (Verified Allergy, Unknown, 08/10/18) tazobactam (Verified Allergy, Unknown, 08/10/18) vancomycin (Verified Allergy, Unknown, 08/10/18) Past Surgical History Past Surgical Hx: other (See HPI) Family History Significant Family History: no pertinent family hx Social History Alcohol Use: none Smoking Status: Never smoker Drug Use: none Exam/Review of Systems Vital Signs Vitals Vital Signs Date Temp Pulse Resp B/P (MAP) Pulse Ox O2 O2 Flow FiO2 Time Delivery Rate 11/21/18 70 100 35 06:28 11/21/18 19 117/69 BIPAP 05:45 (85) 11/21/18 6.0 04:40 11/21/18 96.6 03:45 Exam Constitutional: other (Cachectic lady currently on a BiPAP. No acute distress) Head: normocephalic, atraumatic Eyes: PERRL Respiratory: other (Decreased breath sounds at the bases. Patient has somehow barrel type chest and with prominent veins) Cardiovascular: regular rate and rhythm, nl pulses Gastrointestinal: soft Extremities: other (Left lower extremity with open from recent procedure. There is also significant pitting edema including the left foot) MANDY BATES MD Nov 21, 2018 07:07
[2018-11-21] MEDS ORDERED: FUROSEMIDE 20 MG INJ IV SCH (09:00)
[2018-11-21] MEDS: PANTOPRAZOLE 40 MG INJ IV SCH (09:25)
[2018-11-21] MEDS: AMIODARONE 200 MG TAB PO SCH ×2 (09:42→20:07)
[2018-11-21] MEDS: LEVOTHYROXINE 75 MCG TAB PO SCH (09:43)
[2018-11-21] MEDS: FOLIC ACID 1 MG TAB PO SCH (09:43)
--- NOTE | 2018-11-21 10:04 | CONS ---
DATE OF ADMISSION: 11/21/2018 DATE OF CONSULTATION: 11/21/2018 REASON FOR CONSULT: Respiratory distress. Thank you, Dr. Santa, for this consultation. HISTORY OF PRESENT ILLNESS: This is a 58-year-old lady with multiple medical problems including recu rrent ascites, end-stage renal failure on hemodialysis with multiple occluded venous access site, pac emaker, pancytopenia, possible cirrhosis from hepatic congestion, prior peritoneal dialysis, recent l eft lower extremity graft infection with subsequent sepsis. Admitted yesterday to the emergency room for increasing respiratory distress, orthopnea, PND, hypoxemia requiring initiation of noninvasive p ositive pressure ventilation. The patient noted to be mildly acidotic requiring BiPAP ventilation. SOCIAL HISTORY: Nonsmoker, no alcohol, no history of drug use. FAMILY HISTORY: Noncontributory. SYSTEMS REVIEW: A 12-point review of systems was negative other than that mentioned above. PHYSICAL EXAMINATION: GENERAL: Thin, cachectic, frail, elderly appearing lady on bilevel ventilation. VITAL SIGNS: Temperature is 98, pulse 70, blood pressure 108/67, O2 saturation 96%, FIO2 of 35%. NECK: Supple. JVD is elevated. CARDIAC: S1, S2, no added sounds or murmurs. CHEST: Diminished air entry bilaterally. ABDOMEN: Distended. PD catheter site noted. EXTREMITIES: No cyanosis, clubbing. She has a dressing on left upper extremity.. NEUROLOGIC: Generalized weakness. LABORATORY DATA: White count 3.1, hemoglobin 8.5, platelets of 34. INR was 1.57. ABG: pH 7.3, pCO 2 of 53, pO2 of 217. DIAGNOSTIC DATA: Chest x-ray was reviewed, showed pulmonary edema and effusions. Lower extremity Do ppler is negative for deep vein thrombosis. IMPRESSION AND PLAN: Acute hypoxemic respiratory failure, likely secondary to combination of: 1. Volume overload. 2. Abdominal distention and decreased alveolar ventilation secondary to ascites. 3. The patient has recurrent ascites with peritoneal dialysis catheter in place, currently not being used. 4. End-stage renal failure on hemodialysis. 5. Severe peripheral vascular disease with multiple occluded venous access site. The patient will require: 1. Continued bilevel ventilation. 2. Hemodialysis with volume removal. 3. Peritoneal platelet transfusion prior to paracentesis. 4. Aspiration precautions. 5. Deep vein thrombosis and GI prophylaxis. 6. Palliative care consult, as overall prognosis is extremely poor. Dictated By: NINA VADGAMA MD SV/EZIO Conf#: [id number] DID#: [id number] CC: NINA MORRIS MD; MANDY SANTA MD;*End*
[2018-11-21] MEDS ORDERED: LINEZOLID 600 MG/300 ML (PMX) 300 ML IVPB SCH (10:30)
--- NOTE | 2018-11-21 11:09 | PN ---
Date/Time of Note Date/Time of Note DATE: 11/21/18 TIME: 11:06 Assessment/Plan VTE Prophylaxis SCD applied (from Nsg): Yes Pharmacological prophylaxis: NA/contraindicated Pharm contraindication: blood coag disorder Lines/Catheters IV Catheter Type (from Nrsg): Saline Lock Assessment/Plan Hospital Course 1. Acute encephalopathy secondary to severe hypoglycemia and hypercapnia- improved -Status post treatment in the ER. Patient now more appropriate and mentation at baseline per son, who is at the bedside -Head CT negative for acute findings -Monitor closely -Continue BiPAP 2. Severe hypoglycemia: No history of diabetes and patient not on any insulin or sulfonylurea or any other diabetic medication -This could be from decreased p.o. intake -Monitor closely 3. Hypercapnic respiratory failure -Supplemental oxygen, bronchodilators -Continue as needed BiPAP -Pulmonary consultation appreciated 4. Left lower extremity wound and pitting edema: Patient had a graft in that leg, which was infected -She was admitted for 2 weeks at [facility], where she had procedure. Her son, which was found to have fungus in her wound for which she was given fluconazole. Will obtain records -will continue fluconazole for now -Venous study was negative for DVT -ID and wound care consult 5. ESRD -Patient gets dialysis Friday Nephrology consult obtained 6. Pancytopenia: Patient had workup here during recent hospitalization. 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 Per son, patient did receive platelet transfusion at [facility] 7. Hypothyroidism: Continue Synthroid 8. Hypertension: BP is in acceptable range 9. Pacemaker: No acute issue 10. Ascites: Status post paracentesis about 3 weeks ago with removal of 4.5 L -No need for emergent paracentesis, in addition patient's blood pressure is low 11. Chronic peritoneal dialysis: This is not being used. Not being removed because of the severe thrombocytopenia. This can be addressed at [facility] where she usually gets her care 12. Failure to thrive: Patient is very cachectic -Nutrition consult Prophylaxis: SCDs Result Diagram: 11/21/1822411/21/18224 Results 24hrs Laboratory Tests Test 11/21/18 02:25 11/21/18 02:26 11/21/18 02:37 11/21/18 02:48 White Blood 3.1 #L Count Red Blood Count 2.77 L Hemoglobin 8.5 L Hematocrit 27.6 L Mean Corpuscular 99.6 Volume Mean Corpuscular 30.7 Hemoglobin Mean Corpuscular 30.8 L Hemoglobin Anh nt Red Cell 23.4 #H Distribution Width Platelet Count 34 #L Mean Platelet 12.7 H Volume Immature 0.000 L Granulocytes % Neutrophils % Segmented 34 L Neutrophils % (Manual) Band Neutrophils 25 H % (Manual) Lymphocytes % Lymphocytes % 19 (Manual) Reactive 7 H Lymphocytes % (Manual) Monocytes % Monocytes % 11 (Manual) Eosinophils % Basophils % Basophils % 1 (Manual) Metamyelocytes % 1 H (manual) Myelocytes % 1 H (Manual) Promyelocytes % 1 H (Manual) Nucleated Red 0.0 Blood Cells % Immature 0.000 Granulocytes # Neutrophils # Neutrophils # 1.1 L (Manual) Band Neutrophils 0.7 H # Lymphocytes 0.5 L (Manual) Lymphocytes # Reactive 0.2 H Lymphocytes # Monocytes # Monocytes # 0.3 (Manual) Eosinophils # Basophils # Basophils # 0.0 (Manual) Metamyelocytes # 0.0 Myelocytes # 0.0 Promyelocytes # 0.0 Nucleated Red Blood Cells # Platelet DECREASED Estimate Giant Platelets 2 H Poikilocytosis 3+ Anisocytosis 2+ Macrocytosis 2+ Target Cells 1+ Ovalocytes 1+ Acanthocytes 1+ Prothrombin Time 18.9 H Prothrombin Time 1.5 Ratio INR 1.57 International Normalized Ratio Activated 46.6 H Partial Thrombop last Time Sodium Level 140 Potassium Level 3.5 Chloride Level 104 Carbon Dioxide 28 Level Anion Gap 8 Blood Urea 25 H Nitrogen Creatinine 1.74 H Est Glomerular 30 L Filtrat Rate mL/min Glucose Level 23 *L Calcium Level 8.5 Total Bilirubin 0.4 Direct Bilirubin 0.00 Indirect 0.4 Bilirubin Aspartate Amino 27 Transf (AST/SGOT ) Alanine < 6 L Aminotransferase (ALT/SGPT) Alkaline 123 H Phosphatase Troponin I < 0.012 Total Protein 6.3 Albumin 3.1 L Globulin 3.20 Albumin/Globulin 0.96 Ratio Bedside Glucose 24 *L 334 H POC Venous 1.4 Lactate Test 11/21/18 03:28 11/21/18 04:00 11/21/18 04:53 11/21/18 05:59 Bedside Glucose 205 135 153 Blood Gas Blood arterial Specimen Source Arterial Blood 11/21/2018 4:10: Date Drawn 07 AM Arterial Blood 7.283 *L pH (Temp corrected) Arterial Blood 50.6 H pCO2 (Temp correct) Arterial Blood 117.7 H pO2 (Temp corrected) Arterial Blood 23.4 HCO3 Arterial Blood -3.2 L Base Excess Arterial Blood 97.9 Oxygen Saturatio n Morgan Test N/A Arterial Blood Right Brachial Gas Puncture Site Arterial 1.1 Blood Carboxyhem oglobin Arterial Blood 0.1 Methemoglobin Blood Gas A-a O2 102.1 H Differential Oxyhemoglobin 96.7 Percent Blood Gas 37.0 Temperature Blood Gas Actual 19 Respiration Rate Blood Gas NASAL CANNULA Modality FiO2 39.0 Blood Gas Miguel CHENG MD Critical Value Read Back Blood Gas Notified Whom Blood Gas 11/21/2018 4:17: Notified Time 42 AM Test 11/21/18 06:00 11/21/18 07:23 Blood Gas Blood arterial Specimen Source Arterial Blood 11/21/2018 6:10: Date Drawn 45 AM Arterial Blood 7.307 L pH (Temp corrected) Arterial Blood 53.5 H pCO2 (Temp correct) Arterial Blood 217.6 H pO2 (Temp corrected) Arterial Blood 26.2 H HCO3 Arterial Blood -0.4 Base Excess Arterial Blood 99.1 H Oxygen Saturatio n Morgan Test N/A Arterial Blood Right Brachial Gas Puncture Site Arterial 0.5 Blood Carboxyhem oglobin Arterial Blood 0.2 Methemoglobin Blood Gas A-a O2 78.7 H Differential Oxyhemoglobin 98.4 Percent Blood Gas 37.0 Temperature Blood Gas 18.0 Respiration Rate Blood Gas Actual 18 Respiration Rate Blood Gas MASK - BIPAP Modality FiO2 50.0 Blood Gas 13 Pressure Support Blood Gas 18/5 IPAP/EPAP Ratio Blood Gas Notified Whom Blood Gas 11/21/2018 6:25: Notified Time 38 AM Lactic Acid 2.5 *H Level Subjective 24 Hr Interval Summary Subjective hx not possible: pt non-verbal Exam/Review of Systems Exam Vitals Vital Signs Date Temp Pulse Resp B/P (MAP) Pulse Ox O2 O2 Flow FiO2 Time Delivery Rate 11/21/18 73 08:00 11/21/18 100 35 06:28 11/21/18 17 108/67 06:22 (81) 11/21/18 BIPAP 05:45 11/21/18 6.0 04:40 11/21/18 96.6 03:45 Constitutional: non-verbal Respiratory: clear to auscultation Cardiovascular: regular rate and rhythm Gastrointestinal: soft; No distended Musculoskeletal: nl extremities to inspection Results Results 24hrs Laboratory Tests Test 11/21/18 02:25 11/21/18 02:26 11/21/18 02:37 11/21/18 02:48 White Blood 3.1 #L Count Red Blood Count 2.77 L Hemoglobin 8.5 L Hematocrit 27.6 L Mean Corpuscular 99.6 Volume Mean Corpuscular 30.7 Hemoglobin Mean Corpuscular 30.8 L Hemoglobin Anh nt Red Cell 23.4 #H Distribution Width Platelet Count 34 #L Mean Platelet 12.7 H Volume Immature 0.000 L Granulocytes % Neutrophils % Segmented 34 L Neutrophils % (Manual) Band Neutrophils 25 H % (Manual) Lymphocytes % Lymphocytes % 19 (Manual) Reactive 7 H Lymphocytes % (Manual) Monocytes % Monocytes % 11 (Manual) Eosinophils % Basophils % Basophils % 1 (Manual) Metamyelocytes % 1 H (manual) Myelocytes % 1 H (Manual) Promyelocytes % 1 H (Manual) Nucleated Red 0.0 Blood Cells % Immature 0.000 Granulocytes # Neutrophils # Neutrophils # 1.1 L (Manual) Band Neutrophils 0.7 H # Lymphocytes 0.5 L (Manual) Lymphocytes # Reactive 0.2 H Lymphocytes # Monocytes # Monocytes # 0.3 (Manual) Eosinophils # Basophils # Basophils # 0.0 (Manual) Metamyelocytes # 0.0 Myelocytes # 0.0 Promyelocytes # 0.0 Nucleated Red Blood Cells # Platelet DECREASED Estimate Giant Platelets 2 H Poikilocytosis 3+ Anisocytosis 2+ Macrocytosis 2+ Target Cells 1+ Ovalocytes 1+ Acanthocytes 1+ Prothrombin Time 18.9 H Prothrombin Time 1.5 Ratio INR 1.57 International Normalized Ratio Activated 46.6 H Partial Thrombop last Time Sodium Level 140 Potassium Level 3.5 Chloride Level 104 Carbon Dioxide 28 Level Anion Gap 8 Blood Urea 25 H Nitrogen Creatinine 1.74 H Est Glomerular 30 L Filtrat Rate mL/min Glucose Level 23 *L Calcium Level 8.5 Total Bilirubin 0.4 Direct Bilirubin 0.00 Indirect 0.4 Bilirubin Aspartate Amino 27 Transf (AST/SGOT ) Alanine < 6 L Aminotransferase (ALT/SGPT) Alkaline 123 H Phosphatase Troponin I < 0.012 Total Protein 6.3 Albumin 3.1 L Globulin 3.20 Albumin/Globulin 0.96 Ratio Bedside Glucose 24 *L 334 H POC Venous 1.4 Lactate Test 11/21/18 03:28 11/21/18 04:00 11/21/18 04:53 11/21/18 05:59 Bedside Glucose 205 135 153 Blood Gas Blood arterial Specimen Source Arterial Blood 11/21/2018 4:10: Date Drawn 07 AM Arterial Blood 7.283 *L pH (Temp corrected) Arterial Blood 50.6 H pCO2 (Temp correct) Arterial Blood 117.7 H pO2 (Temp corrected) Arterial Blood 23.4 HCO3 Arterial Blood -3.2 L Base Excess Arterial Blood 97.9 Oxygen Saturatio n Morgan Test N/A Arterial Blood Right Brachial Gas Puncture Site Arterial 1.1 Blood Carboxyhem oglobin Arterial Blood 0.1 Methemoglobin Blood Gas A-a O2 102.1 H Differential Oxyhemoglobin 96.7 Percent Blood Gas 37.0 Temperature Blood Gas Actual 19 Respiration Rate Blood Gas NASAL CANNULA Modality FiO2 39.0 Blood Gas Miguel CHENG MD Critical Value Read Back Blood Gas Notified Whom Blood Gas 11/21/2018 4:17: Notified Time 42 AM Test 11/21/18 06:00 11/21/18 07:23 Blood Gas Blood arterial Specimen Source Arterial Blood 11/21/2018 6:10: Date Drawn 45 AM Arterial Blood 7.307 L pH (Temp corrected) Arterial Blood 53.5 H pCO2 (Temp correct) Arterial Blood 217.6 H pO2 (Temp corrected) Arterial Blood 26.2 H HCO3 Arterial Blood -0.4 Base Excess Arterial Blood 99.1 H Oxygen Saturatio n Morgan Test N/A Arterial Blood Right Brachial Gas Puncture Site Arterial 0.5 Blood Carboxyhem oglobin Arterial Blood 0.2 Methemoglobin Blood Gas A-a O2 78.7 H Differential Oxyhemoglobin 98.4 Percent Blood Gas 37.0 Temperature Blood Gas 18.0 Respiration Rate Blood Gas Actual 18 Respiration Rate Blood Gas MASK - BIPAP Modality FiO2 50.0 Blood Gas 13 Pressure Support Blood Gas 18/5 IPAP/EPAP Ratio Blood Gas Notified Whom Blood Gas 11/21/2018 6:25: Notified Time 38 AM Lactic Acid 2.5 *H Level Medications Medication Current Medications Ondansetron HCl (Zofran Inj) 4 mg Q6H PRN IV NAUSEA AND/OR VOMITING; Start 11/21/18 at 05:30 Albuterol/ Ipratropium (Duoneb) 3 ml Q2H RESP THERAPY PRN NEB SHORTNESS OF BREATH; Start 11/21/18 at 05:30 Acetaminophen (Tylenol Liquid) 650 mg Q6H PRN PO PAIN LEVEL 1-3 OR FEVER; Start 11/21/18 at 05:30 Pantoprazole (Protonix Iv) 40 mg DAILY@06 IV Last administered on 11/21/18 09:25; Admin Dose 40 MG; Start 11/21/18 at 06:00 Amiodarone HCl (Cordarone) 200 mg BID PO Last administered on 11/21/18 09:42; Admin Dose 200 MG; Start 11/21/18 at 09:00 Folic Acid (Folic Acid) 1 mg DAILY PO Last administered on 11/21/18 09:43; Admin Dose 1 MG; Start 11/21/18 at 09:00 Levothyroxine Sodium (Synthroid) 75 mcg BEFORE BREAKFAST PO Last administered on 11/21/18 09:43; Admin Dose 75 MCG; Start 11/21/18 at 07:00 Dextrose 1,000 ml @ 75 mls/hr [id number] IV Last administered on 11/21/18 05:45; Admin Dose 75 MLS/HR; Start 11/21/18 at 06:00 Linezolid 300 ml @ 300 mls/hr Q12 IVPB Last administered on 11/21/18at 10:35; Admin Dose 300 MLS/HR; Start 11/21/18 at 10:30 Meropenem/Sodium Chloride 50 ml @ 100 mls/hr Q12 IVPB ; Start 11/21/18 at 21:00 Fluconazole/ Sodium Chloride 50 ml @ 50 mls/hr Q24H IVPB ; Start 11/21/18 at 11:30 RIKA STOCK Nov 21, 2018 11:09
[2018-11-21] MEDS: FLUCONAZOLE 100 MG/50 ML (PMX) 50 ML IVPB SCH (11:22)
--- NOTE | 2018-11-21 12:32 | CONS ---
Assessment/Plan Assessment/Plan Hospital Course (Demo Recall) ID PRELIMINARY NOTE=> Please refer to Dr. Son's FULL CONSULT NOTE dictated w/human resources psychologist pending. CURRENT ABX: DAY #2 => Zyvox + Merrem + Diflucan 11/21/1822411/21/18224 HPI/HOSPITAL COURSE/24H INTERVAL SUMMARY * Awake, alert, responsive, answers yes and no questions appropriately. * Acute hypoxic respiratory distress -- stable w/BIPAP onboard -- she appears extremely frail w/generalized weakness * Intermittent hypotensive readings w/HR mas 105, no fevers DIAGNOSTIC IMAGING * 11/21/18 CXR: IMPRESSION:1. Changes are again seen suggesting pulmonary congestion/edema with small to moderate effusions and atelectasis or other consolidation. MICRO/OTHER * BCX == micro pending PHYSICAL EXAMINATION: GENERAL: Frail, cachectic, F w/hypoxic resp failure --- A/A/O HEENT: AT, NC, anicteric = BIPAP FACE MASK onboard NECK: Supple (+)sternocleidomastoid retractions CHEST: Equal chest rise bilaterally==> BIPAP w/diminished lungs bilaterally HEART: RRR ABDOMEN: Mild distended EXTREMITIES: Warm, dry, mild edema x4 extremities, skin tears BLExt, LEFT LEG W/OPEN WOUND DRAIN IN PLACE SKIN: No rash, no diaphoresis, STG 3 sacral decubs ID ASSESSMENT 58 yo F admit with: 1. SIRS w/hypotension -- septic shock vs hypovolemic vs combination, w/cold shock, leukopenia * Septic left lower extremity open wound w/hx of infected leg graft * Presumptive spontaneous bacterial peritonitis = DDX due to hx of ascites, presence of PD catheter, s/p Paracentesis prior admit to [facility] 2. Acute encephalopathy on admission: Secondary to severe hypoglycemia * Head CT negative for acute findings 3. Hypercapnic respiratory failure => Supplemental O2 + BiPAP PRN * Pulmonary edema, possible HCAP * 11/21/18 CXR: IMPRESSION:1. Changes are again seen suggesting pulmonary eagle estion/edema with small to moderate effusions and atelectasis or other consolidation. 4. Left lower extremity wound and pitting edema= PAD s/p bypass graft SEP 2018 * Per notes graft infected w/ YEAST/FUNGUS per son was on Diflucan * s/p recent admission for 2 weeks at [facility], where she had procedure. * Venous study was negative for DVT here [facility] on admission 5. ESRD: Nephrology consulted == HD 6. Hx of chronic peritoneal dialysis w/indwelling PD catheter that is currently not being removed because of the severe thrombocytopenia. * PLAN PER NOTES: This can be addressed at [facility] where she usually gets her care 7. Ascites: Status post paracentesis about 3 weeks ago with removal of 4.5 L * At risk SBP due to ascites and indwelling PD catheter 8. Hypertension: 9. Pacemaker post implant status 10. Pancytopenia: Patient had workup here during recent hospitalization. 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 Hypothyroidism-> Synthroid on board 12. Failure to thrive: Patient with weight loss protein sharron malnutrition 13. STG 3 SACRAL DECUB = POA ( )MRSA Nares -> Pending ABX ALLERGIES: PCN/Vanco IV INVASIVES: PIV, PD CURRENT ABX: DAY #2 => Zyvox + Merrem + Diflucan ID RECOMMENDATIONS/PLAN: 1. Obtain wound cx 2. Obtain cx from PD cath if possible 3. Change Zyvox to DAPTOMYCIN due to thrombocytopenia 4. Await MRSA nares -- we can add Doxycycline for concern HCAP as Daptomycin will not cover for concern MRSA PNA . Consultation Date/Type/Reason Admit Date/Time Nov 21, 2018 at 04:53 Initial Consult Date Date/Time of Note DATE: 11/21/18 TIME: 12:31 Exam/Review of Systems Exam Vitals Vital Signs Date Temp Pulse Resp B/P (MAP) Pulse Ox O2 O2 Flow FiO2 Time Delivery Rate 11/21/18 77 18 90/56 (67) 100 BIPAP 11:00 11/21/18 94.5 08:00 11/21/18 35 06:28 11/21/18 6.0 04:40 Results Result Diagram: 11/21/1822411/21/18224 Results 24hrs Laboratory Tests Test 11/21/18 02:25 11/21/18 02:26 11/21/18 02:37 11/21/18 02:48 White Blood 3.1 #L Count Red Blood Count 2.77 L Hemoglobin 8.5 L Hematocrit 27.6 L Mean Corpuscular 99.6 Volume Mean Corpuscular 30.7 Hemoglobin Mean Corpuscular 30.8 L Hemoglobin Anh nt Red Cell 23.4 #H Distribution Width Platelet Count 34 #L Mean Platelet 12.7 H Volume Immature 0.000 L Granulocytes % Neutrophils % Segmented 34 L Neutrophils % (Manual) Band Neutrophils 25 H % (Manual) Lymphocytes % Lymphocytes % 19 (Manual) Reactive 7 H Lymphocytes % (Manual) Monocytes % Monocytes % 11 (Manual) Eosinophils % Basophils % Basophils % 1 (Manual) Metamyelocytes % 1 H (manual) Myelocytes % 1 H (Manual) Promyelocytes % 1 H (Manual) Nucleated Red 0.0 Blood Cells % Immature 0.000 Granulocytes # Neutrophils # Neutrophils # 1.1 L (Manual) Band Neutrophils 0.7 H # Lymphocytes 0.5 L (Manual) Lymphocytes # Reactive 0.2 H Lymphocytes # Monocytes # Monocytes # 0.3 (Manual) Eosinophils # Basophils # Basophils # 0.0 (Manual) Metamyelocytes # 0.0 Myelocytes # 0.0 Promyelocytes # 0.0 Nucleated Red Blood Cells # Platelet DECREASED Estimate Giant Platelets 2 H Poikilocytosis 3+ Anisocytosis 2+ Macrocytosis 2+ Target Cells 1+ Ovalocytes 1+ Acanthocytes 1+ Prothrombin Time 18.9 H Prothrombin Time 1.5 Ratio INR 1.57 International Normalized Ratio Activated 46.6 H Partial Thrombop last Time Sodium Level 140 Potassium Level 3.5 Chloride Level 104 Carbon Dioxide 28 Level Anion Gap 8 Blood Urea 25 H Nitrogen Creatinine 1.74 H Est Glomerular 30 L Filtrat Rate mL/min Glucose Level 23 *L Calcium Level 8.5 Total Bilirubin 0.4 Direct Bilirubin 0.00 Indirect 0.4 Bilirubin Aspartate Amino 27 Transf (AST/SGOT ) Alanine < 6 L Aminotransferase (ALT/SGPT) Alkaline 123 H Phosphatase Troponin I < 0.012 Total Protein 6.3 Albumin 3.1 L Globulin 3.20 Albumin/Globulin 0.96 Ratio Bedside Glucose 24 *L 334 H POC Venous 1.4 Lactate Test 11/21/18 03:28 11/21/18 04:00 11/21/18 04:53 11/21/18 05:59 Bedside Glucose 205 135 153 Blood Gas Blood arterial Specimen Source Arterial Blood 11/21/2018 4:10: Date Drawn 07 AM Arterial Blood 7.283 *L pH (Temp corrected) Arterial Blood 50.6 H pCO2 (Temp correct) Arterial Blood 117.7 H pO2 (Temp corrected) Arterial Blood 23.4 HCO3 Arterial Blood -3.2 L Base Excess Arterial Blood 97.9 Oxygen Saturatio n Morgan Test N/A Arterial Blood Right Brachial Gas Puncture Site Arterial 1.1 Blood Carboxyhem oglobin Arterial Blood 0.1 Methemoglobin Blood Gas A-a O2 102.1 H Differential Oxyhemoglobin 96.7 Percent Blood Gas 37.0 Temperature Blood Gas Actual 19 Respiration Rate Blood Gas NASAL CANNULA Modality FiO2 39.0 Blood Gas Miguel CHENG MD Critical Value Read Back Blood Gas Notified Whom Blood Gas 11/21/2018 4:17: Notified Time 42 AM Test 11/21/18 06:00 11/21/18 07:23 Blood Gas Blood arterial Specimen Source Arterial Blood 11/21/2018 6:10: Date Drawn 45 AM Arterial Blood 7.307 L pH (Temp corrected) Arterial Blood 53.5 H pCO2 (Temp correct) Arterial Blood 217.6 H pO2 (Temp corrected) Arterial Blood 26.2 H HCO3 Arterial Blood -0.4 Base Excess Arterial Blood 99.1 H Oxygen Saturatio n Morgan Test N/A Arterial Blood Right Brachial Gas Puncture Site Arterial 0.5 Blood Carboxyhem oglobin Arterial Blood 0.2 Methemoglobin Blood Gas A-a O2 78.7 H Differential Oxyhemoglobin 98.4 Percent Blood Gas 37.0 Temperature Blood Gas 18.0 Respiration Rate Blood Gas Actual 18 Respiration Rate Blood Gas MASK - BIPAP Modality FiO2 50.0 Blood Gas 13 Pressure Support Blood Gas 18/5 IPAP/EPAP Ratio Blood Gas Notified Whom Blood Gas 11/21/2018 6:25: Notified Time 38 AM Lactic Acid 2.5 *H Level Medications Medication Current Medications Ondansetron HCl (Zofran Inj) 4 mg Q6H PRN IV NAUSEA AND/OR VOMITING; Start 11/21/18 at 05:30 Albuterol/ Ipratropium (Duoneb) 3 ml Q2H RESP THERAPY PRN NEB SHORTNESS OF BREATH; Start 11/21/18 at 05:30 Acetaminophen (Tylenol Liquid) 650 mg Q6H PRN PO PAIN LEVEL 1-3 OR FEVER; Start 11/21/18 at 05:30 Pantoprazole (Protonix Iv) 40 mg DAILY@06 IV Last administered on 11/21/18at 09:25; Admin Dose 40 MG; Start 11/21/18 at 06:00 Amiodarone HCl (Cordarone) 200 mg BID PO Last administered on 11/21/18 09:42; Admin Dose 200 MG; Start 11/21/18 at 09:00 Folic Acid (Folic Acid) 1 mg DAILY PO Last administered on 11/21/18 09:43; Admin Dose 1 MG; Start 11/21/18 at 09:00 Levothyroxine Sodium (Synthroid) 75 mcg BEFORE BREAKFAST PO Last administered on 11/21/18 09:43; Admin Dose 75 MCG; Start 11/21/18 at 07:00 Dextrose 1,000 ml @ 75 mls/hr [id number] IV Last administered on 11/21/18 05:45; Admin Dose 75 MLS/HR; Start 11/21/18 at 06:00 Linezolid 300 ml @ 300 mls/hr Q12 IVPB Last administered on 11/21/18 10:35; Admin Dose 300 MLS/HR; Start 11/21/18 at 10:30 Meropenem/Sodium Chloride 50 ml @ 100 mls/hr Q12 IVPB ; Start 11/21/18 at 21:00 Fluconazole/ Sodium Chloride 50 ml @ 50 mls/hr Q24H IVPB Last administered on 11/21/18 11:22; Admin Dose 50 MLS/HR; Start 11/21/18 at 11:30 MARCO LOZADA NP Nov 21, 2018 12:32
--- NOTE | 2018-11-21 12:45 | CONS ---
Assessment/Plan Assessment/Plan Assessment/Plan (Daily) acute encephalopathy possible multiple causes including acute hypoxic respiratory failure hypoglycemia dementia and delirium currently being worked up by Dr. Mata hypoglycemia left lower extremity wound end-stage renal disease pancytopenia ascites status post pacemaker hypertension malnutrition failure to thrive patient is a full code I will contact family member try and get a little bit more information so far as her past medical history. Patient is a full code Consultation Date/Type/Reason Admit Date/Time Nov 21, 2018 at 04:53 Date/Time of Note DATE: 11/21/18 TIME: 12:41 . This is a palliative care consultation on this 58-year-old female who looks much older than her stated age who is admitted to [facility] altered with a blood sugar of 24 and a blood pressure of 77/55. Comorbid medical problems include hypertension hypothyroidism pancytopenia end-stage renal disease ascites bilateral pleural effusion left leg infection status post graft in the emergency room post being given IV fluids and dextrose patient's became more appropriate she was placed on BiPAP for hypercapnic respiratory failure. Recently discharged in this hospital for ascites she has a history of pancytopenia thrombocytopenia secondary to hit. All information is taken from patient's medical record there are no family members here at this time. Past Medical History Medical History: hypertension, hypothyroid, renal disease, other (See HPI) Home Meds Reported Medications Folic Acid* (Folic Acid*) 1 Mg Tablet, 1 MG PO DAILY, TAB 08/10/18 Amiodarone Hcl* (Amiodarone Hcl*) 200 Mg Tablet, 200 MG PO BID, #60 TAB 08/10/18 Pantoprazole* (Protonix*) 40 Mg Tablet., 40 MG PO DAILY, TAB 08/10/18 Multivit/Ca Carb/B Cmplx/Fa* (Iram-Xiomara*) 1 Tab Tab, 1 TAB PO DAILY, TAB 08/10/18 Levothyroxine Sodium* (Levoxyl*) 75 Mcg Tablet, 75 MCG PO BEFORE BREAKFAST, #30 TAB 08/10/18 Discontinued Reported Medications Ranitidine Hcl* (Ranitidine Hcl*) 150 Mg Tablet, 150 MG PO HS, #30 TAB 08/10/18 Medications Current Medications Ondansetron HCl (Zofran Inj) 4 mg Q6H PRN IV NAUSEA AND/OR VOMITING; Start 11/21/18 at 05:30 Albuterol/ Ipratropium (Duoneb) 3 ml Q2H RESP THERAPY PRN NEB SHORTNESS OF BREATH; Start 11/21/18 at 05:30 Acetaminophen (Tylenol Liquid) 650 mg Q6H PRN PO PAIN LEVEL 1-3 OR FEVER; Start 11/21/18 at 05:30 Pantoprazole (Protonix Iv) 40 mg DAILY@06 IV Last administered on 11/21/18 09:25; Admin Dose 40 MG; Start 11/21/18 at 06:00 Amiodarone HCl (Cordarone) 200 mg BID PO Last administered on 11/21/18 09:42; Admin Dose 200 MG; Start 11/21/18 at 09:00 Folic Acid (Folic Acid) 1 mg DAILY PO Last administered on 11/21/18 09:43; Admin Dose 1 MG; Start 11/21/18 at 09:00 Levothyroxine Sodium (Synthroid) 75 mcg BEFORE BREAKFAST PO Last administered on 11/21/18 09:43; Admin Dose 75 MCG; Start 11/21/18 at 07:00 Dextrose 1,000 ml @ 75 mls/hr [id number] IV Last administered on 11/21/18 05:45; Admin Dose 75 MLS/HR; Start 11/21/18 at 06:00 Linezolid 300 ml @ 300 mls/hr Q12 IVPB Last administered on 11/21/18 10:35; Admin Dose 300 MLS/HR; Start 11/21/18 at 10:30 Meropenem/Sodium Chloride 50 ml @ 100 mls/hr Q12 IVPB ; Start 11/21/18 at 21:00 Fluconazole/ Sodium Chloride 50 ml @ 50 mls/hr Q24H IVPB Last administered on 11/21/18 11:22; Admin Dose 50 MLS/HR; Start 11/21/18 at 11:30 Allergies: Coded Allergies: Penicillins (Verified Allergy, Unknown, 08/10/18) tazobactam (Verified Allergy, Unknown, 08/10/18) vancomycin (Verified Allergy, Unknown, 08/10/18) Past Surgical History Past Surgical Hx: other Social History Alcohol Use: none Smoking Status: Never smoker Drug Use: none Exam/Review of Systems Exam Vitals Vital Signs Date Temp Pulse Resp B/P (MAP) Pulse Ox O2 O2 Flow FiO2 Time Delivery Rate 11/21/18 77 18 90/56 (67) 100 BIPAP 11:00 11/21/18 94.5 08:00 11/21/18 35 06:28 11/21/18 6.0 04:40 Constitutional: non-verbal, distress, frail, other Head: normocephalic, atraumatic; No lacerations, No hematomas, No other Eyes: nl conjunctiva Respiratory: clear to auscultation, normal air movement, diminished breath sounds Cardiovascular: regular rate and rhythm, nl pulses Neurological: other ( ashen appearing nonpurposeful movements does not respond to simple commands oriented x0 no purposeful movements) Results Result Diagram: 11/21/1822411/21/18224 Results 24hrs Laboratory Tests Test 11/21/18 02:25 11/21/18 02:26 11/21/18 02:37 11/21/18 02:48 White Blood 3.1 #L Count Red Blood Count 2.77 L Hemoglobin 8.5 L Hematocrit 27.6 L Mean Corpuscular 99.6 Volume Mean Corpuscular 30.7 Hemoglobin Mean Corpuscular 30.8 L Hemoglobin Anh nt Red Cell 23.4 #H Distribution Width Platelet Count 34 #L Mean Platelet 12.7 H Volume Immature 0.000 L Granulocytes % Neutrophils % Segmented 34 L Neutrophils % (Manual) Band Neutrophils 25 H % (Manual) Lymphocytes % Lymphocytes % 19 (Manual) Reactive 7 H Lymphocytes % (Manual) Monocytes % Monocytes % 11 (Manual) Eosinophils % Basophils % Basophils % 1 (Manual) Metamyelocytes % 1 H (manual) Myelocytes % 1 H (Manual) Promyelocytes % 1 H (Manual) Nucleated Red 0.0 Blood Cells % Immature 0.000 Granulocytes # Neutrophils # Neutrophils # 1.1 L (Manual) Band Neutrophils 0.7 H # Lymphocytes 0.5 L (Manual) Lymphocytes # Reactive 0.2 H Lymphocytes # Monocytes # Monocytes # 0.3 (Manual) Eosinophils # Basophils # Basophils # 0.0 (Manual) Metamyelocytes # 0.0 Myelocytes # 0.0 Promyelocytes # 0.0 Nucleated Red Blood Cells # Platelet DECREASED Estimate Giant Platelets 2 H Poikilocytosis 3+ Anisocytosis 2+ Macrocytosis 2+ Target Cells 1+ Ovalocytes 1+ Acanthocytes 1+ Prothrombin Time 18.9 H Prothrombin Time 1.5 Ratio INR 1.57 International Normalized Ratio Activated 46.6 H Partial Thrombop last Time Sodium Level 140 Potassium Level 3.5 Chloride Level 104 Carbon Dioxide 28 Level Anion Gap 8 Blood Urea 25 H Nitrogen Creatinine 1.74 H Est Glomerular 30 L Filtrat Rate mL/min Glucose Level 23 *L Calcium Level 8.5 Total Bilirubin 0.4 Direct Bilirubin 0.00 Indirect 0.4 Bilirubin Aspartate Amino 27 Transf (AST/SGOT ) Alanine < 6 L Aminotransferase (ALT/SGPT) Alkaline 123 H Phosphatase Troponin I < 0.012 Total Protein 6.3 Albumin 3.1 L Globulin 3.20 Albumin/Globulin 0.96 Ratio Bedside Glucose 24 *L 334 H POC Venous 1.4 Lactate Test 11/21/18 03:28 11/21/18 04:00 11/21/18 04:53 11/21/18 05:59 Bedside Glucose 205 135 153 Blood Gas Blood arterial Specimen Source Arterial Blood 11/21/2018 4:10: Date Drawn 07 AM Arterial Blood 7.283 *L pH (Temp corrected) Arterial Blood 50.6 H pCO2 (Temp correct) Arterial Blood 117.7 H pO2 (Temp corrected) Arterial Blood 23.4 HCO3 Arterial Blood -3.2 L Base Excess Arterial Blood 97.9 Oxygen Saturatio n Morgan Test N/A Arterial Blood Right Brachial Gas Puncture Site Arterial 1.1 Blood Carboxyhem oglobin Arterial Blood 0.1 Methemoglobin Blood Gas A-a O2 102.1 H Differential Oxyhemoglobin 96.7 Percent Blood Gas 37.0 Temperature Blood Gas Actual 19 Respiration Rate Blood Gas NASAL CANNULA Modality FiO2 39.0 Blood Gas Miguel CHENG MD Critical Value Read Back Blood Gas Notified Whom Blood Gas 11/21/2018 4:17: Notified Time 42 AM Test 11/21/18 06:00 11/21/18 07:23 Blood Gas Blood arterial Specimen Source Arterial Blood 11/21/2018 6:10: Date Drawn 45 AM Arterial Blood 7.307 L pH (Temp corrected) Arterial Blood 53.5 H pCO2 (Temp correct) Arterial Blood 217.6 H pO2 (Temp corrected) Arterial Blood 26.2 H HCO3 Arterial Blood -0.4 Base Excess Arterial Blood 99.1 H Oxygen Saturatio n Morgan Test N/A Arterial Blood Right Brachial Gas Puncture Site Arterial 0.5 Blood Carboxyhem oglobin Arterial Blood 0.2 Methemoglobin Blood Gas A-a O2 78.7 H Differential Oxyhemoglobin 98.4 Percent Blood Gas 37.0 Temperature Blood Gas 18.0 Respiration Rate Blood Gas Actual 18 Respiration Rate Blood Gas MASK - BIPAP Modality FiO2 50.0 Blood Gas 13 Pressure Support Blood Gas 18/5 IPAP/EPAP Ratio Blood Gas UP Notified Whom Blood Gas 11/21/2018 6:25: Notified Time 38 AM Lactic Acid 2.5 *H Level Medications Medication Current Medications Ondansetron HCl (Zofran Inj) 4 mg Q6H PRN IV NAUSEA AND/OR VOMITING; Start 11/21/18 at 05:30 Albuterol/ Ipratropium (Duoneb) 3 ml Q2H RESP THERAPY PRN NEB SHORTNESS OF BREATH; Start 11/21/18 at 05:30 Acetaminophen (Tylenol Liquid) 650 mg Q6H PRN PO PAIN LEVEL 1-3 OR FEVER; Start 11/21/18 at 05:30 Pantoprazole (Protonix Iv) 40 mg DAILY@06 IV Last administered on 11/21/18 09:25; Admin Dose 40 MG; Start 11/21/18 at 06:00 Amiodarone HCl (Cordarone) 200 mg BID PO Last administered on 11/21/18 09:42; Admin Dose 200 MG; Start 11/21/18 at 09:00 Folic Acid (Folic Acid) 1 mg DAILY PO Last administered on 11/21/18 09:43; Admin Dose 1 MG; Start 11/21/18 at 09:00 Levothyroxine Sodium (Synthroid) 75 mcg BEFORE BREAKFAST PO Last administered on 11/21/18 09:43; Admin Dose 75 MCG; Start 11/21/18 at 07:00 Dextrose 1,000 ml @ 75 mls/hr [id number] IV Last administered on 11/21/18 05:45; Admin Dose 75 MLS/HR; Start 11/21/18 at 06:00 Linezolid 300 ml @ 300 mls/hr Q12 IVPB Last administered on 11/21/18at 10:35; Admin Dose 300 MLS/HR; Start 11/21/18 at 10:30 Meropenem/Sodium Chloride 50 ml @ 100 mls/hr Q12 IVPB ; Start 11/21/18 at 21:00 Fluconazole/ Sodium Chloride 50 ml @ 50 mls/hr Q24H IVPB Last administered on 11/21/18at 11:22; Admin Dose 50 MLS/HR; Start 11/21/18 at 11:30 JULIEN SALINAS Nov 21, 2018 12:45
--- NOTE | 2018-11-21 12:57 | CONS ---
DATE OF ADMISSION: 11/21/2018 DATE OF CONSULTATION: 11/21/2018 TYPE OF CONSULTATION: Infectious Disease. REASON FOR CONSULTATION: Antibiotic management. HISTORY OF PRESENT ILLNESS: Mylene Renee is a 58-year-old female presenting to the emergency room with altered levels of consciousness after she took a [place] an hour before arrival. She was discharg ed from [facility] two days ago where she had a 2-week stay due to infected graft in h er left lower extremity. She is taking antifungal and antibiotics intravenously. She took [place] bec ause of the pain. Blood pressure was 77/55 in triage. Her Accu-Chek was only 24. She was treated w ith 2 amps of D50 with good response. She does not smoke or drink. PAST MEDICAL HISTORY: Includes. 1. Chronic renal disease on hemodialysis Friday, Friday, Friday. 2. Hypothyroidism. 3. Coronary artery disease. 4. Coronary arrhythmia. 5. Hypertension. 6. Status post pacemaker, stent placement. 7. Extensive right groin infected graft with debridement. 8. Partial thyroidectomy. 9. The patient also had a tubal ligation and a fistula for hemodialysis. FAMILY HISTORY: Noncontributory. SOCIAL HISTORY: She does not smoke, drink or abuse drugs. ALLERGIES: NONE TO PENICILLIN, SULFA OR FOODS. MEDICATIONS: Per chart. REVIEW OF SYSTEMS: Noncontributory. PHYSICAL EXAMINATION: GENERAL: She is a chronically ill-appearing female who is in moderate distress, dehydrated. She is afebrile, blood pressure 77/55. SKIN: Without generalized rash. HEENT: Within normal limits. NECK: Supple. LYMPH NODES: None palpable. CHEST: Decreased breath sounds at the bases. HEART: Without murmur or gallop. ABDOMEN: Soft, nontender, without organosplenomegaly or masses. EXTREMITIES: Without cyanosis, clubbing, or edema. RECTAL AND GENITAL: Deferred. NEUROLOGIC: No focal neurological abnormality. LABORATORY DATA: Her white count on admission was 3.1, H and H of 8.5 and, platelet count 30 34,000. BUN and creatinine 25/1.74 glucose of 23. She has 34 polys, 25 bands with a considerable shift to the left. HOSPITAL COURSE: Patient was started on linezolid and meropenem. Her chest x-ray showed changes sug gestive of pulmonary congestion and edema, small moderate effusion and atelectasis or other consolida tion. She has mild aortic calcifications, left-sided dual lead cardiac pacemaker, a right femoral ve nous line with its tip at the level of the inferior vena cava and cavoatrial junction. The patient w as seen by Dr. Guaman. History of recurrent ascites, end-stage renal disease on hemodialysis, pancy topenia, possible cirrhosis from hepatic congestion, prior peritoneal dialysis, recent left lower ext remity graft infection with subsequent sepsis. Patient noted to be acidotic requiring BiPAP. She danielle s volume overload, abdominal distention, recurrent ascites, end-stage renal disease. She needs bilev el ventilation, hemodialysis with volume removal, peritoneal platelet transfusion prior to paracentes is. Deep vein thrombosis and GI prophylaxis. Palliative care consult. IMPRESSION AND PLAN: The patient has acute encephalopathy secondary to severe hypoglycemia and hyper capnia, which is improved at this point. We will continue her on her current regimen of linezolid an d meropenem. She is also on fluconazole. She should have a surgeon evaluate her infected graft in t he left lower extremity. I will dictate my findings to the hospitalist and to the pulmonary consults . Dictated By: LORRAINE JOHNSON MD, JD/EZIO Conf#: [id number] DID#: [id number] CC: MANDY BATES MD;*EndCC*
--- NOTE | 2018-11-21 13:16 | CONS ---
DATE OF ADMISSION: 11/21/2018 DATE OF CONSULTATION: 11/21/2018 TYPE OF CONSULTATION: Nephrology. REASON FOR CONSULTATION: End-stage renal disease. PHYSICIAN REQUESTING CONSULT: Johnnie Mata MD HISTORY OF PRESENT ILLNESS: This is a 58-year-old female with a past medical history of end-stage re nal disease on hemodialysis access is a Perm-A-Cath, right femoral. A history of anemia, history of hypertension who presents to [facility] with shortness of breath. The patient was recently at [facility] where a recently placed left femoral AV fistula was removed due to underlying infection. The patient also noted to have a peritoneal dialysis catheter which is not yet to be removed due to thrombocytopenia. The patient yesterday had hemodialysis, now presents to [facility] Emergency Room with increased shortness of breath. In the emergency room, patient wa s found to be hypertensive with blood pressures in the 70s. The patient had a chest x-ray which show ed pulmonary congestion, edema and moderate effusions. The patient was given antibiotic therapy and admitted to the intensive care unit. Upon my evaluation, the patient is currently in respiratory distress on a BiPAP. There have been no reports of any hemoptysis, hematemesis or hematochezia. PAST MEDICAL HISTORY: History of end-stage renal disease, history of coronary artery disease, histor y of hypothyroidism, history of arrhythmia, and history of hypertension. PAST SURGICAL HISTORY: Status post pacemaker, status post left femoral AV graft placement with remov al, status post partial thyroidectomy. MEDICATIONS: The patient's medications have been reviewed. ALLERGIES: PLEASE SEE LIST. FAMILY HISTORY: No family history of kidney disease. SOCIAL HISTORY: Does not drink, smoke or do drugs. REVIEW OF SYSTEMS: A 14-point review of systems conducted. Pertinent positives stated in HPI, other walker negative. PHYSICAL EXAMINATION: VITAL SIGNS: Blood pressure 90/56, respiration 18, pulse 77, temperature 94.5. HEENT: Head is normocephalic. NECK: Supple. HEART: Regular rate. LUNGS: Show diminished breath sounds at the base. Positive rhonchi. ABDOMEN: Soft. Positive peritoneal catheter. Positive fluid wave. No cyanosis or edema. DERMATOLOGIC: No rashes. MUSCULOSKELETAL: No joint effusions. NEUROLOGIC: Limited exam. The patient's medications have been reviewed. LABORATORY DATA: Has been reviewed. ASSESSMENT AND PLAN: This is a 58-year-old female with: 1. End-stage renal disease. The patient's last hemodialysis yesterday. Plan would be for hemodialy sis today. The patient is hemodynamically stable. The patient's chest x-ray shows volume congestion and edema. The patient is clinically overloaded. Will dialyze for 3 hours 3k bath, calcium 2.5 ult rafiltration approximately 1 to 2 liters. 2. Volume overload. Patient has diffuse body anasarca and pulmonary congestion. Attempt ultrafiltr ation if hemodynamically stable. 3. Anemia. Continue to monitor hemoglobin and hematocrit levels. 4. Mineral bone disorder, monitor calcium and phosphorus level. 5. Acute hypoxemic respiratory failure, etiology secondary to pulmonary congestion. The patient is currently on BiPAP. Continue bronchodilators, oxygen. Follow up with pulmonary. Attempt ultrafiltr ation with dialysis. 6. Hypoglycemia. The patient is status post D50. Glucose levels improved. Continue to monitor. 7. Acute encephalopathy. Etiology is multifactorial secondary to hyperglycemia and hypercapnia. Co ntinue current medical management. The patient's CT scan was negative for any acute finding. 8. Thrombocytopenia, etiology is felt to be secondary to LOUIS. Monitor closely. No heparin product s. Transfuse PRBCs as needed. 9. Ascites. The patient is status post paracentesis. Continue to monitor. 10. Hypothyroidism. Continue Synthroid. 11. Systemic inflammatory response syndrome, possible sepsis. Continue broad spectrum antibiotics. Follow cultures. Follow up with infectious disease. Please note I spent over 30 minutes of critical care time with this patient. Patient is overall poor prognosis. Dictated By: SARIKA JOINER DO NR/NTS Conf#: [id number] DID#: [id number] CC: MANDY BATES MD; LORRAINE JOHNSON MD;*EndCC*
[2018-11-21] MEDS: DAPTOMYCIN 320 MG in SOD CHLORIDE 0.9% 100 ML IVPB SCH (15:27)
[2018-11-21] MEDS: BALSAM PERU/CASTOR OIL 60 GM TUBE TOP SCH (15:27)
[2018-11-21] MEDS: ONDANSETRON 4 MG INJ IV PRN (16:50)
[2018-11-21] MEDS ORDERED: NORepinephrine 8MG/250 ML (PMX 250 ML ONE (18:48)
[2018-11-21] MEDS: NORepinephrine 8MG/250 ML (PMX 250 ML IV SCH (19:03)
[2018-11-21] MEDS: MEROPENEM 500MG/50 ML (PMX) 50 ML IVPB SCH (21:21)
[2018-11-22] VITALS (112 sets, daily range): BP systolic 72–155; BP diastolic 47–85; PULSE 66–128; RESP 11–22
[2018-11-22] MEDS: BALSAM PERU/CASTOR OIL 60 GM TUBE TOP SCH ×2 (00:14→12:29)
[2018-11-22] MEDS: PANTOPRAZOLE 40 MG INJ IV SCH (05:26)
[2018-11-22] MEDS: LEVOTHYROXINE 75 MCG TAB PO SCH (07:00)
[2018-11-22] MEDS ORDERED: MAGNESIUM SULFATE 2 GM/50 ML 50 ML IVPB ONE (08:00)
[2018-11-22] MEDS ORDERED: EPOETIN ALFA-EPBX (ESRD) 10,000 UNIT/ML VIAL SC ONE (08:00)
--- NOTE | 2018-11-22 08:08 | PN ---
DATE: 11/22/2018 SUBJECTIVE: The patient was hemodynamically unstable overnight, was initiated on pressor support. T he patient's family refused a central line placement; therefore, we are currently using Perm-A-Cath t o run IV pressors. The patient has refused BiPAP, currently on nasal cannula. No other events noted . OBJECTIVE: VITAL SIGNS: Blood pressure is 100/58, respiration 15, pulse 91, temperature is 98.6. HEENT: Head is normocephalic. NECK: Supple. HEART: Tachycardic. LUNGS: Show diminished breath sounds at the base. ABDOMEN: Distended. Mild tenderness to palpation. Positive peritoneal dialysis catheter. EXTREMITIES: Negative for clubbing, cyanosis. Diffuse anasarca. DERMATOLOGIC: No rashes. MUSCULOSKELETAL: Positive wounds. NEUROLOGIC: No change in exam. MEDICATIONS: The patient's medications have been reviewed. LABORATORY DATA: Shows white count 8.0, hemoglobin 7.7, platelet count is 40, sodium 134, potassium 3.5, chloride is 97, BUN 30, creatinine 1.98, magnesium is 1.6. The patient's blood cultures grew ou t gram-negative rods. IMAGING STUDIES: Reviewed. ASSESSMENT AND PLAN: 1. End-stage renal disease. The patient's access is Perm-A-Cath. The patient was hemodynamically u nstable for dialysis yesterday. Currently, Perm-A-Cath is being used to run IV pressors. At this po int, will anticipate dialysis in next 24 hours once Perm-A-Cath is available for hemodialysis use. 2. Volume overload. The patient has diffuse anasarca, pulmonary congestion. Attempt ultrafiltratio n with dialysis once dialysis is resumed. 3. Anemia. Monitor H and H levels. 4. Mineral bone disorder. Monitor calcium and phosphorus levels. 5. Septic shock. Etiology is secondary to bacteremia, possible line sepsis. The patient's blood cu ltures were positive for gram-negative rods. Underlying source is unclear, as stated, possible line, possible wound. The patient is currently on pressor support, IV fluids, antibiotic therapy. Will c ontinue. Will discuss with infectious disease if patient's Perm-A-Cath needs to be removed. 6. Acute hypoxemic respiratory failure. Etiology is secondary to pulmonary congestion, questionable pneumonia. The patient is refusing BiPAP. Continue nasal cannula. Continue nebulizers. Monitor c losely. 7. Hypokalemia. Continue dextrose. 8. Acute encephalopathy. Etiology is due to hypoglycemia, hypercapnia. Continue to monitor. 9. Thrombocytopenia with a history of LOUIS. Continue to monitor. 10. Ascites. May consider paracentesis. Continue to monitor. 11. Hypothyroidism. Continue Synthroid. Please note I spent over 30 minutes of critical care time with this patient. Dictated By: SARIKA JOINER DO NR/NTS Conf#: [id number] DID#: [id number] CC: MANDY BATES MD;*EndCC*
[2018-11-22] MEDS: DEXTROSE 10% 1,000 ML IV SCH ×2 (08:41→21:27)
[2018-11-22] MEDS: MEROPENEM 500MG/50 ML (PMX) 50 ML IVPB SCH (08:42)
[2018-11-22] MEDS: AMIODARONE 200 MG TAB PO SCH ×2 (09:00→21:00)
[2018-11-22] MEDS: FOLIC ACID 1 MG TAB PO SCH (09:00)
--- NOTE | 2018-11-22 10:23 | CONS ---
Consult Date/Type/Reason Admit Date/Time Nov 21, 2018 at 04:53 Initial Consult Date Type of Consult Pulmonary Date/Time of Note DATE: 11/22/18 TIME: 10:20 Subjective Patient had hypotension overnight requiring central line which was placed this morning by vascular surgery. She remains lethargic with intermittent respiratory distress. Continues vasopressor support. Appreciate palliative care discussion with family yesterday. Objective Vital Signs Date Temp Pulse Resp B/P (MAP) Pulse Ox O2 O2 Flow FiO2 Time Delivery Rate 11/22/18 98.8 100 22 109/65 2 Nasal 08:30 (80) Cannula 11/22/18 3.0 06:00 11/21/18 35 22:25 Intake and Output 11/21/18 11/21/18 11/22/18 1515:00 23:00 07:00 IntakeIntake Total 1000 ml 821.875 ml 590.625 ml OutputOutput Total 0 ml 100 ml 0 ml BalanceBalance 1000 ml 721.875 ml 590.625 ml Exam GENERAL: Thin cachectic lady on nasal cannula O2 VITAL SIGNS: per chart NECK: Supple. No JVD or lymphadenopathy. CARDIAC EXAM: S1, S2. No added sounds or murmurs. CHEST: Diminished air entry bilaterally ABDOMEN: Soft, nontender. No guarding or rebound. EXTREMITIES: No cyanosis, clubbing or edema. NEUROLOGIC: Generalized weakness. No focal deficits. Results/Medications Result Diagram: 11/22/18 0451 11/22/18 0451 Results 24 hrs Laboratory Tests Test 11/21/18 20:03 11/22/18 04:51 11/22/18 07:00 Bedside Glucose 116 White Blood Count 8.0 # Red Blood Count 2.50 L Hemoglobin 7.7 L Hematocrit 24.8 L Mean Corpuscular Volume 99.2 Mean Corpuscular 30.8 Hemoglobin Mean Corpuscular 31.0 L Hemoglobin Concent Red Cell Distribution 23.1 H Width Platelet Count 40 L Mean Platelet Volume 13.0 H Immature Granulocytes % 0.600 H Neutrophils % Segmented Neutrophils 48 % (Manual) Band Neutrophils % 27 H (Manual) Lymphocytes % Lymphocytes % (Manual) 17 Reactive Lymphocytes 3 H % (Manual) Monocytes % Monocytes % (Manual) 5 Eosinophils % Basophils % Nucleated Red Blood Cells 0.0 % Immature Granulocytes # 0.050 H Neutrophils # Neutrophils # (Manual) 4.0 Band Neutrophils # 2.1 H Lymphocytes (Manual) 1.3 Lymphocytes # Reactive Lymphocytes # 0.2 H Monocytes # Monocytes # (Manual) 0.4 Eosinophils # Basophils # Nucleated Red Blood Cells # Platelet Estimate SIG DECREASED Giant Platelets 2 H Polychromasia 2+ Hypochromasia 1+ Poikilocytosis 3+ Anisocytosis 2+ Microcytosis 1+ Macrocytosis 2+ Ovalocytes 1+ Acanthocytes 1+ Sodium Level 134 L Potassium Level 3.5 Chloride Level 97 Carbon Dioxide Level 24 Anion Gap 13 Blood Urea Nitrogen 30 H Creatinine 1.98 H Est Glomerular Filtrat 26 L Rate mL/min Glucose Level 70 # Calcium Level 7.7 L Phosphorus Level 3.4 Magnesium Level 1.6 L Creatine Kinase < 20 L Blood Gas Specimen Source Blood arterial Arterial Blood Date Drawn 11/22/2018 8:05:04 AM Arterial Blood pH 7.252 *L (Temp corrected) Arterial Blood pCO2 56.2 H (Temp correct) Arterial Blood pO2 105.6 H (Temp corrected) Arterial Blood HCO3 24.2 Arterial Blood Base Excess -3.2 L Arterial Blood 97.8 Oxygen Saturation Morgan Test N/A Arterial Blood Gas Right Brachial Puncture Site Arterial 1.0 Blood Carboxyhemoglobin Arterial Blood 0.2 Methemoglobin Blood Gas A-a O2 20.5 Differential Oxyhemoglobin Percent 96.6 Blood Gas Temperature 37.0 Blood Gas Modality NASAL CANNULA FiO2 27.0 Blood Gas Critical Value Butch TINAJERO RN Read Back Blood Gas Notified Whom Minesh CORTEZ [employer] Blood Gas Notified Time 11/22/2018 8:29:42 AM Medications Current Medications Ondansetron HCl (Zofran Inj) 4 mg Q6H PRN IV NAUSEA AND/OR VOMITING Last administered on 11/21/18at 16:50; Admin Dose 4 MG; Start 11/21/18 at 05:30 Albuterol/ Ipratropium (Duoneb) 3 ml Q2H RESP THERAPY PRN NEB SHORTNESS OF BREATH; Start 11/21/18 at 05:30 Acetaminophen (Tylenol Liquid) 650 mg Q6H PRN PO PAIN LEVEL 1-3 OR FEVER; Start 11/21/18 at 05:30 Pantoprazole (Protonix Iv) 40 mg DAILY@06 IV Last administered on 11/22/18at 05:26; Admin Dose 40 MG; Start 11/21/18 at 06:00 Amiodarone HCl (Cordarone) 200 mg BID PO Last administered on 11/21/18 09:42; Admin Dose 200 MG; Start 11/21/18 at 09:00 Folic Acid (Folic Acid) 1 mg DAILY PO Last administered on 11/21/18 09:43; Admin Dose 1 MG; Start 11/21/18 at 09:00 Levothyroxine Sodium (Synthroid) 75 mcg BEFORE BREAKFAST PO Last administered on 11/21/18 09:43; Admin Dose 75 MCG; Start 11/21/18 at 07:00 Dextrose 1,000 ml @ 75 mls/hr [id number] IV Last administered on 11/22/18 08:41; Admin Dose 75 MLS/HR; Start 11/21/18 at 06:00 Meropenem/Sodium Chloride 50 ml @ 100 mls/hr Q12 IVPB Last administered on 11/22/18 08:42; Admin Dose 100 MLS/HR; Start 11/21/18 at 21:00 Fluconazole/ Sodium Chloride 50 ml @ 50 mls/hr Q24H IVPB Last administered on 11/21/18 11:22; Admin Dose 50 MLS/HR; Start 11/21/18 at 11:30 Daptomycin 320 mg/ Sodium Chloride 100 ml @ 200 mls/hr Q48H IVPB Last administered on 11/21/18 15:27; Admin Dose 200 MLS/HR; Start 11/21/18 at 16:00 Norepinephrine 250 ml @ 1.875 mls/ hr TITRATE IV Last administered on 11/21/18 19:03; Admin Dose 18.75 MLS/HR; Start 11/21/18 at 19:00 Assessment/Plan Hospital Course (Demo Recall) IMPRESSION 1. Volume overload. 2. Abdominal distention and decreased alveolar ventilation secondary to ascites. 3. The patient has recurrent ascites with peritoneal dialysis catheter in place, currently not being used. 4. End-stage renal failure on hemodialysis. 5. Severe peripheral vascular disease with multiple occluded venous access site. 6. Shock likely septic Plan 1. Continued bilevel ventilation. 2. Hemodialysis with volume removal. 3. Peritoneal platelet transfusion prior to paracentesis. 4. Aspiration precautions. 5. Deep vein thrombosis and GI prophylaxis. 6. Palliative care consult, as overall prognosis is extremely poor. 7. Consider transfusion 1 unit packed red blood cells given hypotension Continue supportive measures Critical care time 40 minutes. NINA MORRIS MD, [facility] Nov 22, 2018 10:23
--- NOTE | 2018-11-22 10:28 | CONS ---
DATE OF ADMISSION: 11/21/2018 DATE OF CONSULTATION: 11/22/2018 REASON FOR CONSULTATION: Surgical. HISTORY OF PRESENT ILLNESS: This is a 58-year-old female with a history of end-stage renal disease o n dialysis. The patient is being admitted after removal of infected dialysis graft. She will be nee ding long-term central line placement. PAST MEDICAL HISTORY: Significant for hypertension, hyperlipidemia, sepsis, end-stage renal disease. PAST SURGICAL HISTORY: Multiple dialysis catheter placements. ALLERGIES: NONE. SOCIAL HISTORY: No smoking, drinking or drug use. MEDICATIONS: List reviewed. PHYSICAL EXAMINATION: VITAL SIGNS: Blood pressure is 102/60, pulse is 80, respirations 18. The patient has multiple venou s collaterals in the chest. Left pacemaker is in place. IMPRESSION: 1. Sepsis. 2. Renal failure. RECOMMENDATIONS: We will proceed with the placement of a central line. Risks, benefits, complicatio ns, alternative were explained to the patient's family. Dictated By: TAE PAN MD FM/NTS Conf#: [id number] DID#: [id number] CC: RIKA STOCK MD; LORRAINE JOHNSON MD; MANDY BATES MD;*EndCC*
--- NOTE | 2018-11-22 10:30 | OPR ---
DATE OF OPERATION: 11/22/2018 PREOPERATIVE DIAGNOSIS: Sepsis. POSTOPERATIVE DIAGNOSIS: Sepsis. OPERATION PERFORMED: Left femoral central line placement. ANESTHESIA: Local. CONSENT: Risks, benefits, complications, alternative therapies explained to the patient's family, co nsent obtained. OPERATIVE TECHNIQUE: The patient was placed in supine position, prepped and draped in usual sterile fashion. Time-out was called. Access was gained to the left femoral vein. Guidewire was advanced t hrough without any difficulty. Subcutaneous tissues were dilated 20 cm. Central line was advanced o speedy a guidewire, secured to skin using silk sutures. Both ports of the catheter were aspirated and i njected using saline solution. Dictated By: TAE PAN MD FM/NTS Conf#: [id number] DID#: [id number] CC: LORRAINE JOHNSON MD; MANDY BATES MD; RIKA STOCK MD;*EndCC*
--- NOTE | 2018-11-22 12:24 | CONS ---
Assessment/Plan Assessment/Plan Hospital Course (Demo Recall) ID PRELIMINARY NOTE CURRENT ABX: DAY #3 => DAPTO #2 + Merrem + Diflucan s/p Zyvox DC'd 11/22/18 0451 11/22/18 0451 HPI/HOSPITAL COURSE/24H INTERVAL SUMMARY * Lethargic, awakens, extremely frail w/generalized weakness * Acute hypoxic respiratory distress -- stable on supplemental O2 via NC w/shallow breathing, sternal retractions, cachexia * Thrombocytopenia w/anemia -- ZYVOX DC'd * Prior intermittent hypotensive readings w/HR mas 105, no fevers DIAGNOSTIC IMAGING * 11/21/18 CXR: IMPRESSION:1. Changes are again seen suggesting pulmonary congestion/edema with small to moderate effusions and atelectasis or other consolidation. MICRO/OTHER * 11/21/18 BCX == BLOOD CULTURE Preliminary BCULT GRAM BOTTLE 1 Gram negative rods . seen on gram stain of the broth Organism 1 GRAM NEGATIVE MERARY PHYSICAL EXAMINATION: GENERAL: Frail, cachectic, F w/hypoxic resp failure --- A/A/O HEENT: AT, NC, anicteric = BIPAP FACE MASK onboard NECK: Supple (+)sternocleidomastoid retractions CHEST: Equal chest rise bilaterally==> BIPAP w/diminished lungs bilaterally HEART: RRR ABDOMEN: Mild distended EXTREMITIES: Warm, dry, mild edema x4 extremities, skin tears BLExt, LEFT LEG W/OPEN WOUND DRAIN IN PLACE SKIN: No rash, no diaphoresis, STG 3 sacral decubs ID ASSESSMENT 58 yo F admit with: 1. GNR SEPSIS w/hypotension -- septic shock vs hypovolemic vs combination, w/cold shock, leukopenia * 11/21/18 BCX (+) Organism 1 GRAM NEGATIVE MERARY * Septic left lower extremity open wound w/hx of infected leg graft * Presumptive spontaneous bacterial peritonitis = DDX due to hx of ascites, presence of PD catheter, s/p Paracentesis prior admit to [facility] 2. Acute encephalopathy on admission: Secondary to severe hypoglycemia * Head CT negative for acute findings 3. Hypercapnic respiratory failure => Supplemental O2 + BiPAP PRN * Pulmonary edema, possible HCAP * 11/21/18 CXR: IMPRESSION:1. Changes are again seen suggesting pulmonary congestion/edema with small to moderate effusions and atelectasis or other consolidation. 4. Left lower extremity wound and pitting edema= PAD s/p bypass graft SEP 2018 * Per notes graft infected w/ YEAST/FUNGUS per son was on Diflucan * s/p recent admission for 2 weeks at [facility], where she had procedure. * Venous study was negative for DVT here [facility] on admission 5. ESRD: Nephrology consulted == HD 6. Hx of chronic peritoneal dialysis w/indwelling PD catheter that is currently not being removed because of the severe thrombocytopenia. * PLAN PER NOTES: This can be addressed at [facility] where she usually gets her care 7. Ascites: Status post paracentesis about 3 weeks ago with removal of 4.5 L * At risk SBP due to ascites and indwelling PD catheter 8. Hypertension: 9. Pacemaker post implant status 10. Pancytopenia: Patient had workup here during recent hospitalization. 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 Hypothyroidism-> Synthroid on board 12. Failure to thrive: Patient with weight loss protein sharron malnutrition 13. STG 3 SACRAL DECUB = POA (-)MRSA Nares ABX ALLERGIES: PCN/Vanco IV INVASIVES: PIV, PD CURRENT ABX: DAY #3 => Merrem + Diflucan + DAPTOMYCIN #2 s/p Zyvox + ID RECOMMENDATIONS/PLAN: 1. Obtain wound cx -- pending 2. Obtain cx from PD cath if possible 3. Zyvox changed to DAPTOMYCIN yesterday due to thrombocytopenia/ symptomatic anemia 4. Daptomycin will not cover for concern MRSA PNA -- however (-)MRSA Nares screen . Consultation Date/Type/Reason Admit Date/Time Nov 21, 2018 at 04:53 Initial Consult Date Date/Time of Note DATE: 11/22/18 TIME: 12:15 Exam/Review of Systems Exam Vitals Vital Signs Date Temp Pulse Resp B/P (MAP) Pulse Ox O2 O2 Flow FiO2 Time Delivery Rate 11/22/18 89 19 99/62 (74) 97 11:30 11/22/18 Nasal 2.0 11:00 Cannula 11/22/18 98.8 08:30 11/21/18 35 22:25 Intake and Output 11/21/18 11/21/18 11/22/18 1515:00 23:00 07:00 IntakeIntake Total 1000 ml 821.875 ml 675.000 ml OutputOutput Total 0 ml 100 ml 0 ml BalanceBalance 1000 ml 721.875 ml 675.000 ml Results Result Diagram: 11/22/18 0451 11/22/18 0451 Results 24hrs Laboratory Tests Test 11/21/18 20:03 11/22/18 04:51 11/22/18 07:00 Bedside Glucose 116 White Blood Count 8.0 # Red Blood Count 2.50 L Hemoglobin 7.7 L Hematocrit 24.8 L Mean Corpuscular Volume 99.2 Mean Corpuscular 30.8 Hemoglobin Mean Corpuscular 31.0 L Hemoglobin Concent Red Cell Distribution 23.1 H Width Platelet Count 40 L Mean Platelet Volume 13.0 H Immature Granulocytes % 0.600 H Neutrophils % Segmented Neutrophils 48 % (Manual) Band Neutrophils % 27 H (Manual) Lymphocytes % Lymphocytes % (Manual) 17 Reactive Lymphocytes 3 H % (Manual) Monocytes % Monocytes % (Manual) 5 Eosinophils % Basophils % Nucleated Red Blood Cells 0.0 % Immature Granulocytes # 0.050 H Neutrophils # Neutrophils # (Manual) 4.0 Band Neutrophils # 2.1 H Lymphocytes (Manual) 1.3 Lymphocytes # Reactive Lymphocytes # 0.2 H Monocytes # Monocytes # (Manual) 0.4 Eosinophils # Basophils # Nucleated Red Blood Cells # Platelet Estimate SIG DECREASED Giant Platelets 2 H Polychromasia 2+ Hypochromasia 1+ Poikilocytosis 3+ Anisocytosis 2+ Microcytosis 1+ Macrocytosis 2+ Ovalocytes 1+ Acanthocytes 1+ Sodium Level 134 L Potassium Level 3.5 Chloride Level 97 Carbon Dioxide Level 24 Anion Gap 13 Blood Urea Nitrogen 30 H Creatinine 1.98 H Est Glomerular Filtrat 26 L Rate mL/min Glucose Level 70 # Calcium Level 7.7 L Phosphorus Level 3.4 Magnesium Level 1.6 L Creatine Kinase < 20 L Blood Gas Specimen Source Blood arterial Arterial Blood Date Drawn 11/22/2018 8:05:04 AM Arterial Blood pH 7.252 *L (Temp corrected) Arterial Blood pCO2 56.2 H (Temp correct) Arterial Blood pO2 105.6 H (Temp corrected) Arterial Blood HCO3 24.2 Arterial Blood Base Excess -3.2 L Arterial Blood 97.8 Oxygen Saturation Morgan Test N/A Arterial Blood Gas Right Brachial Puncture Site Arterial 1.0 Blood Carboxyhemoglobin Arterial Blood 0.2 Methemoglobin Blood Gas A-a O2 20.5 Differential Oxyhemoglobin Percent 96.6 Blood Gas Temperature 37.0 Blood Gas Modality NASAL CANNULA FiO2 27.0 Blood Gas Critical Value Butch TINAJERO RN Read Back Blood Gas Notified Whom Minesh CORTEZ RCP Blood Gas Notified Time 11/22/2018 8:29:42 AM Medications Medication Current Medications Ondansetron HCl (Zofran Inj) 4 mg Q6H PRN IV NAUSEA AND/OR VOMITING Last administered on 11/21/18 16:50; Admin Dose 4 MG; Start 11/21/18 at 05:30 Albuterol/ Ipratropium (Duoneb) 3 ml Q2H RESP THERAPY PRN NEB SHORTNESS OF BREATH; Start 11/21/18 at 05:30 Acetaminophen (Tylenol Liquid) 650 mg Q6H PRN PO PAIN LEVEL 1-3 OR FEVER; Start 11/21/18 at 05:30 Pantoprazole (Protonix Iv) 40 mg DAILY@06 IV Last administered on 11/22/18 05:26; Admin Dose 40 MG; Start 11/21/18 at 06:00 Amiodarone HCl (Cordarone) 200 mg BID PO Last administered on 11/21/18 09:42; Admin Dose 200 MG; Start 11/21/18 at 09:00 Folic Acid (Folic Acid) 1 mg DAILY PO Last administered on 11/21/18 09:43; Admin Dose 1 MG; Start 11/21/18 at 09:00 Levothyroxine Sodium (Synthroid) 75 mcg BEFORE BREAKFAST PO Last administered on 11/21/18 09:43; Admin Dose 75 MCG; Start 11/21/18 at 07:00 Dextrose 1,000 ml @ 75 mls/hr [id number] IV Last administered on 11/22/18 08:41; Admin Dose 75 MLS/HR; Start 11/21/18 at 06:00 Meropenem/Sodium Chloride 50 ml @ 100 mls/hr Q12 IVPB Last administered on 11/22/18 08:42; Admin Dose 100 MLS/HR; Start 11/21/18 at 21:00 Fluconazole/ Sodium Chloride 50 ml @ 50 mls/hr Q24H IVPB Last administered on 11/21/18 11:22; Admin Dose 50 MLS/HR; Start 11/21/18 at 11:30 Daptomycin 320 mg/ Sodium Chloride 100 ml @ 200 mls/hr Q48H IVPB Last administered on 11/21/18at 15:27; Admin Dose 200 MLS/HR; Start 11/21/18 at 16:00 Norepinephrine 250 ml @ 1.875 mls/ hr TITRATE IV Last administered on 11/21/18at 19:03; Admin Dose 18.75 MLS/HR; Start 11/21/18 at 19:00 MARCO LOZADA NP Nov 22, 2018 12:24
[2018-11-22] MEDS: FLUCONAZOLE 100 MG/50 ML (PMX) 50 ML IVPB SCH (12:29)
[2018-11-22] MEDS ORDERED: DEXTROSE 50% 50 ML SYRINGE ONE (17:45)
--- NOTE | 2018-11-22 17:45 | PN ---
Date/Time of Note Date/Time of Note DATE: 11/22/18 TIME: 17:36 Assessment/Plan VTE Prophylaxis Risk score (from Nsg)>0 risk: 7 Pharmacological prophylaxis: NA/contraindicated Pharm contraindication: blood coag disorder Lines/Catheters Urinary Cath still in place: No Assessment/Plan Hospital Course 1. Acute encephalopathy secondary to severe hypoglycemia and hypercapnia- improved -Patient now more appropriate and mentation at baseline per son, who is at the bedside -Patient continues to become hypoglycemic, hypoglycemic protocol has been ordered -Head CT negative for acute findings -Monitor closely -Continue BiPAP 2. Severe hypoglycemia: No history of diabetes and patient not on any insulin or sulfonylurea or any other diabetic medication -This could be from decreased p.o. intake and liver dysfunction from CHO -Ultrasound of the liver to evaluate for cirrhosis and/or fatty liver -Hypoglycemic protocol 3. Hypercapnic respiratory failure -Supplemental oxygen, bronchodilators -Continue as needed BiPAP -Pulmonary consultation appreciated 4. 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, where she had procedure. Her son, which was found to have fungus in her wound for which she was given fluconazole. Will obtain records -ID consultation appreciated -Continue daptomycin, meropenem and fluconazole -Venous study was negative for DVT -Wound care consult 5. ESRD with fluid overload -Patient gets dialysis Friday -Nephrology consult appreciated, patient is fluid overloaded and will need dialysis -Blood pressure has been low and central line has been placed for pressors d uring dialysis -Patient not stable for thoracentesis at this time 6. Pancytopenia with coagulopathy: Patient had workup here during recent hospitalization. 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 Hypothyroidism: Continue Synthroid 8. History of hypertension -Blood pressure currently low 9. History of pacemaker: No acute issue 10. Ascites secondary to fluid overload and/or liver disease: Status post paracentesis 3 weeks ago with removal of 4.5 L -No need for emergent paracentesis, in addition patient's blood pressure is low -Follow-up on abdominal ultrasound 11. Chronic peritoneal dialysis: This is not being used. Not being removed because of the severe thrombocytopenia. This can be addressed at [facility] where she usually gets her care 12. Failure to thrive: Patient is very cachectic -Nutrition consult Prophylaxis: SCDs DC planning: Patient not stable for DC Result Diagram: 11/22/18 0451 11/22/18 0451 Results 24hrs Laboratory Tests Test 11/21/18 20:03 11/22/18 04:51 11/22/18 07:00 11/22/18 15:34 Bedside Glucose 116 57 L White Blood 8.0 # Count Red Blood Count 2.50 L Hemoglobin 7.7 L Hematocrit 24.8 L Mean Corpuscular 99.2 Volume Mean Corpuscular 30.8 Hemoglobin Mean Corpuscular 31.0 L Hemoglobin Anh nt Red Cell 23.1 H Distribution Width Platelet Count 40 L Mean Platelet 13.0 H Volume Immature 0.600 H Granulocytes % Neutrophils % Segmented 48 Neutrophils % (Manual) Band Neutrophils 27 H % (Manual) Lymphocytes % Lymphocytes % 17 (Manual) Reactive 3 H Lymphocytes % (Manual) Monocytes % Monocytes % 5 (Manual) Eosinophils % Basophils % Nucleated Red 0.0 Blood Cells % Immature 0.050 H Granulocytes # Neutrophils # Neutrophils # 4.0 (Manual) Band Neutrophils 2.1 H # Lymphocytes 1.3 (Manual) Lymphocytes # Reactive 0.2 H Lymphocytes # Monocytes # Monocytes # 0.4 (Manual) Eosinophils # Basophils # Nucleated Red Blood Cells # Platelet SIG DECREASED Estimate Giant Platelets 2 H Polychromasia 2+ Hypochromasia 1+ Poikilocytosis 3+ Anisocytosis 2+ Microcytosis 1+ Macrocytosis 2+ Ovalocytes 1+ Acanthocytes 1+ Sodium Level 134 L Potassium Level 3.5 Chloride Level 97 Carbon Dioxide 24 Level Anion Gap 13 Blood Urea 30 H Nitrogen Creatinine 1.98 H Est Glomerular 26 L Filtrat Rate mL/min Glucose Level 70 # Calcium Level 7.7 L Phosphorus Level 3.4 Magnesium Level 1.6 L Creatine Kinase < 20 L Blood Gas Blood arterial Specimen Source Arterial Blood 11/22/2018 8:05: Date Drawn 04 AM Arterial Blood 7.252 *L pH (Temp corrected) Arterial Blood 56.2 H pCO2 (Temp correct) Arterial Blood 105.6 H pO2 (Temp corrected) Arterial Blood 24.2 HCO3 Arterial Blood -3.2 L Base Excess Arterial Blood 97.8 Oxygen Saturatio n Morgan Test N/A Arterial Blood Right Brachial Gas Puncture Site Arterial 1.0 Blood Carboxyhem oglobin Arterial Blood 0.2 Methemoglobin Blood Gas A-a O2 20.5 Differential Oxyhemoglobin 96.6 Percent Blood Gas 37.0 Temperature Blood Gas NASAL CANNULA Modality FiO2 27.0 Blood Gas Butch TINAJERO RN Critical Value Read Back Blood Gas Minesh [facility] Notified Whom Blood Gas 11/22/2018 8:29: Notified Time 42 AM Subjective 24 Hr Interval Summary Constitutional: disoriented Exam/Review of Systems Exam Vitals Vital Signs Date Temp Pulse Resp B/P (MAP) Pulse Ox O2 O2 Flow FiO2 Time Delivery Rate 11/22/18 3.0 17:25 11/22/18 124 100 35 17:00 11/22/18 18 105/63 15:45 (77) 11/22/18 BIPAP 15:00 11/22/18 98.3 12:30 Intake and Output 11/21/18 11/21/18 11/22/18 1515:00 23:00 07:00 IntakeIntake Total 1000 ml 821.875 ml 675.000 ml OutputOutput Total 0 ml 100 ml 0 ml BalanceBalance 1000 ml 721.875 ml 675.000 ml Constitutional: alert Respiratory: clear to auscultation Cardiovascular: regular rate and rhythm Gastrointestinal: soft; No distended Musculoskeletal: nl extremities to inspection Results Results 24hrs Laboratory Tests Test 11/21/18 20:03 11/22/18 04:51 11/22/18 07:00 11/22/18 15:34 Bedside Glucose 116 57 L White Blood 8.0 # Count Red Blood Count 2.50 L Hemoglobin 7.7 L Hematocrit 24.8 L Mean Corpuscular 99.2 Volume Mean Corpuscular 30.8 Hemoglobin Mean Corpuscular 31.0 L Hemoglobin Anh nt Red Cell 23.1 H Distribution Width Platelet Count 40 L Mean Platelet 13.0 H Volume Immature 0.600 H Granulocytes % Neutrophils % Segmented 48 Neutrophils % (Manual) Band Neutrophils 27 H % (Manual) Lymphocytes % Lymphocytes % 17 (Manual) Reactive 3 H Lymphocytes % (Manual) Monocytes % Monocytes % 5 (Manual) Eosinophils % Basophils % Nucleated Red 0.0 Blood Cells % Immature 0.050 H Granulocytes # Neutrophils # Neutrophils # 4.0 (Manual) Band Neutrophils 2.1 H # Lymphocytes 1.3 (Manual) Lymphocytes # Reactive 0.2 H Lymphocytes # Monocytes # Monocytes # 0.4 (Manual) Eosinophils # Basophils # Nucleated Red Blood Cells # Platelet SIG DECREASED Estimate Giant Platelets 2 H Polychromasia 2+ Hypochromasia 1+ Poikilocytosis 3+ Anisocytosis 2+ Microcytosis 1+ Macrocytosis 2+ Ovalocytes 1+ Acanthocytes 1+ Sodium Level 134 L Potassium Level 3.5 Chloride Level 97 Carbon Dioxide 24 Level Anion Gap 13 Blood Urea 30 H Nitrogen Creatinine 1.98 H Est Glomerular 26 L Filtrat Rate mL/min Glucose Level 70 # Calcium Level 7.7 L Phosphorus Level 3.4 Magnesium Level 1.6 L Creatine Kinase < 20 L Blood Gas Blood arterial Specimen Source Arterial Blood 11/22/2018 8:05: Date Drawn 04 AM Arterial Blood 7.252 *L pH (Temp corrected) Arterial Blood 56.2 H pCO2 (Temp correct) Arterial Blood 105.6 H pO2 (Temp corrected) Arterial Blood 24.2 HCO3 Arterial Blood -3.2 L Base Excess Arterial Blood 97.8 Oxygen Saturatio n Morgan Test N/A Arterial Blood Right Brachial Gas Puncture Site Arterial 1.0 Blood Carboxyhem oglobin Arterial Blood 0.2 Methemoglobin Blood Gas A-a O2 20.5 Differential Oxyhemoglobin 96.6 Percent Blood Gas 37.0 Temperature Blood Gas NASAL CANNULA Modality FiO2 27.0 Blood Gas Butch TINAJERO RN Critical Value Read Back Blood Gas Minesh CORTEZ [employer] Notified Whom Blood Gas 11/22/2018 8:29: Notified Time 42 AM Medications Medication Current Medications Ondansetron HCl (Zofran Inj) 4 mg Q6H PRN IV NAUSEA AND/OR VOMITING Last administered on 11/21/18at 16:50; Admin Dose 4 MG; Start 11/21/18 at 05:30 Albuterol/ Ipratropium (Duoneb) 3 ml Q2H RESP THERAPY PRN NEB SHORTNESS OF BREATH; Start 11/21/18 at 05:30 Acetaminophen (Tylenol Liquid) 650 mg Q6H PRN PO PAIN LEVEL 1-3 OR FEVER; Start 11/21/18 at 05:30 Pantoprazole (Protonix Iv) 40 mg DAILY@06 IV Last administered on 11/22/18at 05:26; Admin Dose 40 MG; Start 11/21/18 at 06:00 Amiodarone HCl (Cordarone) 200 mg BID PO Last administered on 11/21/18 09:42; Admin Dose 200 MG; Start 11/21/18 at 09:00 Folic Acid (Folic Acid) 1 mg DAILY PO Last administered on 11/21/18 09:43; Admin Dose 1 MG; Start 11/21/18 at 09:00 Levothyroxine Sodium (Synthroid) 75 mcg BEFORE BREAKFAST PO Last administered on 11/21/18 09:43; Admin Dose 75 MCG; Start 11/21/18 at 07:00 Dextrose 1,000 ml @ 75 mls/hr [id number] IV Last administered on 11/22/18 08:41; Admin Dose 75 MLS/HR; Start 11/21/18 at 06:00 Meropenem/Sodium Chloride 50 ml @ 100 mls/hr Q12 IVPB Last administered on 08:42; Admin Dose 100 MLS/HR; Start 11/21/18 at 21:00 Fluconazole/ Sodium Chloride 50 ml @ 50 mls/hr Q24H IVPB Last administered on 11/22/18 12:29; Admin Dose 50 MLS/HR; Start 11/21/18 at 11:30 Daptomycin 320 mg/ Sodium Chloride 100 ml @ 200 mls/hr Q48H IVPB Last administered on 11/21/18 15:27; Admin Dose 200 MLS/HR; Start 11/21/18 at 16:00 Norepinephrine 250 ml @ 1.875 mls/ hr TITRATE IV Last administered on 11/21/18 19:03; Admin Dose 18.75 MLS/HR; Start 11/21/18 at 19:00 RIKA STOCK Nov 22, 2018 17:45
[2018-11-22] MEDS ORDERED: DEXTROSE 50% 50 ML SYRINGE IV ONE (18:00)
[2018-11-22] MEDS: ACCU-CHEK XX SCH (21:00)
[2018-11-22] MEDS: NORepinephrine 8MG/250 ML (PMX 250 ML IV SCH (22:48)
[2018-11-23] VITALS (104 sets, daily range): BP systolic 68–180; BP diastolic 51–86; PULSE 65–121; RESP 14–28
[2018-11-23] MEDS: ACCU-CHEK XX SCH ×6 (00:42→21:03)
[2018-11-23] MEDS: MEROPENEM 500MG/50 ML (PMX) 50 ML IVPB SCH ×3 (00:43→20:58)
[2018-11-23] MEDS: BALSAM PERU/CASTOR OIL 60 GM TUBE TOP SCH ×3 (02:17→21:01)
[2018-11-23] MEDS: LEVOTHYROXINE 75 MCG TAB PO SCH (06:28)
[2018-11-23] MEDS: PANTOPRAZOLE 40 MG INJ IV SCH (06:28)
[2018-11-23] MEDS ORDERED: SUCCINYLCHOLINE CHLORIDE 100 MG/5 ML SYG IV ONE (07:00)
[2018-11-23] MEDS ORDERED: POTASSIUM CHLORIDE 100 ML IVPB ONE (08:00)
--- NOTE | 2018-11-23 08:00 | PN ---
DATE: 11/23/2018 SUBJECTIVE: The patient remains critically ill on pressor support. The patient had hemodialysis yes terday with approximately 2 liters removed. The patient remains on BiPAP. There have been no report s of hemoptysis, hematemesis or hematochezia. OBJECTIVE: VITAL SIGNS: Blood pressure is 136/68, respirations 18, pulse 72, temperature 97.0. I's and O's wer e reviewed. HEENT: Normocephalic. Pupils are reactive to light. NECK: Supple. HEART: Tachycardic. LUNGS: Show diminished breath sounds at the base. ABDOMEN: Soft, distended. Positive PD catheter. EXTREMITIES: Negative for clubbing, cyanosis. Positive edema, diffuse anasarca. DERMATOLOGIC: No rashes. MUSCULOSKELETAL: No joint effusion. NEUROLOGIC: No change in exam. MEDICATIONS: Reviewed. LABORATORY DATA: From 11/23/2018 was reviewed. The patient has sodium 133, potassium 3.1, BUN 18, c reatinine 1.38, phosphorus 2.4, calcium 7.7. The patient's blood cultures positive for gram-negative rods. IMAGING STUDIES: Chest x-ray shows pulmonary vascular congestion. ASSESSMENT AND PLAN: 1. End-stage renal disease. The patient's access is Perm-A-Cath. The patient had hemodialysis yest erday. Plan is for dialysis again tomorrow. 2. Volume overload. The patient has diffuse anasarca, pulmonary congestion. We will continue ultra filtration with hemodialysis if hemodynamically stable. 3. Anemia. Monitor hemoglobin and hematocrit levels. We will give Epogen with dialysis. 4. Hypokalemia, we will replete with potassium chloride. 5. Mineral bone disorder. The patient is hypophosphatemic. Replete with potassium phosphate. 6. Septic shock. Etiology may be secondary to pneumonia, possible SBP. The patient's cultures were reviewed. Continue medical management. Continue pressor support. Continue antibiotic therapy. 7. Acute hypoxemic respiratory failure secondary to pulmonary congestion, questionable pneumonia. C ontinue BiPAP. Continue antibiotics. Follow up with pulmonary. 8. Acute encephalopathy, etiology is multifactorial, toxic metabolic, hypercapnia. Continue to [place] tor. 9. 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 10. Ascites. Consider paracentesis. 11. Hypothyroidism. Continue Synthroid. 12. Hypernatremia secondary to end-stage renal disease and hypertonic fluid. We will attempt to nicolas nge IV fluids, minimize any hypertonic piggybacks. Monitor closely. Please note, I spent over 30 minutes of critical care time with this patient. Dictated By: SARIKA JOINER DO NR/NTS Conf#: [id number] DID#: [id number] CC: MANDY BATES MD; LORRAINE JOHNSON MD; RIKA TSOCK MD;*EndCC*
[2018-11-23] MEDS ORDERED: POTASSIUM PHOSPHATE 40 MEQ in SOD CHLORIDE 0.9% 250 ML IVPB ONE (08:30)
[2018-11-23] MEDS: AMIODARONE 200 MG TAB PO SCH ×2 (08:33→20:51)
[2018-11-23] MEDS: FOLIC ACID 1 MG TAB PO SCH (08:34)
--- NOTE | 2018-11-23 08:41 | CONS ---
Assessment/Plan Assessment/Plan Assessment/Plan (Daily) Chest x-ray showing pulmonary vascular congestion with bilateral pleural effusions. Patient is currently on BiPAP 18/5 35% FiO2. Levophed 5 mics per minute. Assessment and recommendations; next 1. Patient with history of CHF admitted for CHF exacerbation with significant ascites and volume overload. 2. History of CRF, on hemodialysis. 3. Severe thrombocytopenia. 4. Anemia. 5. Possibly bilateral pneumonia with gram negative bacteremia. 6. Mild hypercapnia. 7. Ascites likely due to CHF as well. 8. Hypotension Continue current supportive care. Prognosis appears very poor. 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 Consultation Date/Type/Reason Admit Date/Time Nov 21, 2018 at 04:53 Initial Consult Date Type of Consult Pulmonary Reason for Consultation Patient's condition is critical but improving. Remains awake and alert. General exam; middle-aged female, awake and alert. Currently in no distress. On BiPAP. Date/Time of Note DATE: 11/23/18 TIME: 08:38 Exam/Review of Systems Exam Vitals Vital Signs Date Temp Pulse Resp B/P (MAP) Pulse Ox O2 O2 Flow FiO2 Time Delivery Rate 11/23/18 72 18 136/68 100 06:45 (90) 11/23/18 97.0 BIPAP 06:00 11/23/18 35 05:39 11/22/18 3.0 17:25 Intake and Output 11/22/18 11/22/18 11/23/18 1515:00 23:00 07:00 IntakeIntake Total 675.000 ml 718.873 ml 1083.250 ml OutputOutput Total 200 ml 1900 ml BalanceBalance 675.000 ml 518.873 ml -816.750 ml Exam H EENT exam; supple neck, positive JVD. No lymphadenopathy. Midline trachea. No thyromegaly. Patient has fair dentition. No neck masses. Chest exam; diminished breath sounds bilaterally. S1-S2 audible, no murmurs. Regular rhythm. Abdomen exam; distended with positive fluid thrill. Organomegaly difficult to assess. Bowel sounds are audible. Extremity exam; 2+ edema, dressing applied to left thigh. 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 Results Result Diagram: 11/23/18 0436 11/23/18 0430 Results 24hrs Laboratory Tests Test 11/22/18 15:34 11/22/18 17:40 11/22/18 18:48 11/23/18 00:47 Bedside Glucose 57 L 64 L 127 76 Test 11/23/18 03:56 11/23/18 04:30 11/23/18 04:36 11/23/18 07:00 Bedside Glucose 81 Sodium Level 133 L Potassium Level 3.1 L Chloride Level 97 Carbon Dioxide 26 Level Anion Gap 10 Blood Urea 18 # Nitrogen Creatinine 1.38 H Est Glomerular 39 L Filtrat Rate mL/min Glucose Level 79 Calcium Level 7.7 L Phosphorus Level 2.4 #L Magnesium Level 1.9 White Blood 8.5 Count Red Blood Count 3.13 #L Hemoglobin 9.5 #L Hematocrit 29.1 L Mean Corpuscular 93.0 Volume Mean Corpuscular 30.4 Hemoglobin Mean Corpuscular 32.6 Hemoglobin Anh nt Red Cell 20.7 H Distribution Width Platelet Count 17 #*L Mean Platelet 11.9 H Volume Immature 2.000 H Granulocytes % Neutrophils % Segmented 56 Neutrophils % (Manual) Band Neutrophils 28 H % (Manual) Lymphocytes % Lymphocytes % 11 L (Manual) Monocytes % Monocytes % 4 (Manual) Eosinophils % Basophils % Metamyelocytes % 1 H (manual) Nucleated Red 0.0 Blood Cells % Immature 0.170 H Granulocytes # Neutrophils # Neutrophils # 5.0 (Manual) Band Neutrophils 2.3 H # Lymphocytes 0.9 (Manual) Lymphocytes # Monocytes # Monocytes # 0.3 (Manual) Eosinophils # Basophils # Metamyelocytes # 0.0 Nucleated Red Blood Cells # Platelet SIG DECREASED Estimate Polychromasia 1+ Poikilocytosis 3+ Anisocytosis 2+ Macrocytosis 2+ Ovalocytes 1+ Blood Gas Blood arterial Specimen Source Arterial Blood 11/23/2018 7:18: Date Drawn 45 AM Arterial Blood 7.304 L pH (Temp corrected) Arterial Blood 53.4 H pCO2 (Temp correct) Arterial Blood 125.2 H pO2 (Temp corrected) Arterial Blood 25.9 HCO3 Arterial Blood -0.9 Base Excess Arterial Blood 98.1 H Oxygen Saturatio n Morgan Test N/A Arterial Blood Right Brachial Gas Puncture Site Arterial 0.6 Blood Carboxyhem oglobin Arterial Blood 0.2 Methemoglobin Blood Gas A-a O2 62.3 H Differential Oxyhemoglobin 97.3 Percent Blood Gas 37.0 Temperature Blood Gas 18.0 Respiration Rate Blood Gas Actual 20 Respiration Rate Blood Gas MASK - BIPAP Modality FiO2 35.0 Blood Gas 13 Pressure Support Blood Gas 18/5 IPAP/EPAP Ratio Blood Gas TM Notified Whom Blood Gas 11/23/2018 7:50: Notified Time 44 AM Medications Medication Current Medications Ondansetron HCl (Zofran Inj) 4 mg Q6H PRN IV NAUSEA AND/OR VOMITING Last administered on 11/21/18 16:50; Admin Dose 4 MG; Start 11/21/18 at 05:30 Albuterol/ Ipratropium (Duoneb) 3 ml Q2H RESP THERAPY PRN NEB SHORTNESS OF BREATH; Start 11/21/18 at 05:30 Acetaminophen (Tylenol Liquid) 650 mg Q6H PRN PO PAIN LEVEL 1-3 OR FEVER; Start 11/21/18 at 05:30 Pantoprazole (Protonix Iv) 40 mg DAILY@06 IV Last administered on 11/23/18 06:28; Admin Dose 40 MG; Start 11/21/18 at 06:00 Amiodarone HCl (Cordarone) 200 mg BID PO Last administered on 11/21/18 09:42; Admin Dose 200 MG; Start 11/21/18 at 09:00 Folic Acid (Folic Acid) 1 mg DAILY PO Last administered on 11/21/18 09:43; Admin Dose 1 MG; Start 11/21/18 at 09:00 Levothyroxine Sodium (Synthroid) 75 mcg BEFORE BREAKFAST PO Last administered on 11/21/18 09:43; Admin Dose 75 MCG; Start 11/21/18 at 07:00 Dextrose 1,000 ml @ 40 mls/hr Q24H IV Last administered on 11/22/18 21:27; Admin Dose 75 MLS/HR; Start 11/21/18 at 06:00 Meropenem/Sodium Chloride 50 ml @ 100 mls/hr Q12 IVPB Last administered on 11/23/18 00:43; Admin Dose 100 MLS/HR; Start 11/21/18 at 21:00 Fluconazole/ Sodium Chloride 50 ml @ 50 mls/hr Q24H IVPB Last administered on 11/22/18 12:29; Admin Dose 50 MLS/HR; Start 11/21/18 at 11:30 Daptomycin 320 mg/ Sodium Chloride 100 ml @ 200 mls/hr Q48H IVPB Last administered on 11/21/18at 15:27; Admin Dose 200 MLS/HR; Start 11/21/18 at 16:00 Norepinephrine 250 ml @ 1.875 mls/ hr TITRATE IV Last administered on 11/22/18at 22:48; Admin Dose 33.75 MLS/HR; Start 11/21/18 at 19:00 Diagnostic Test (Pha) (Accu-Chek) 1 ea Q4 XX Last administered on 11/23/18at 00:42; Admin Dose 1 EA; Start 11/22/18 at 21:00 Potassium Phosphate 40 meq/ Sodium Chloride 259.0909 ml @ 64.773 m... ONCE ONCE IVPB ; Start 11/23/18 at 08:30; Stop 11/23/18 at 12:29 Potassium Chloride 100 ml @ 50 mls/hr ONCE ONCE IVPB ; Start 11/23/18 at 08:00; Stop 11/23/18 at 09:59 MARIAN KUMAR Nov 23, 2018 08:41
[2018-11-23] MEDS: NORepinephrine 8MG/250 ML (PMX 250 ML IV SCH (11:04)
[2018-11-23] MEDS: DEXTROSE 10% 1,000 ML IV SCH (11:05)
[2018-11-23] MEDS: FLUCONAZOLE 100 MG/50 ML (PMX) 50 ML IVPB SCH (11:36)
--- NOTE | 2018-11-23 11:42 | CONS ---
Assessment/Plan Assessment/Plan Hospital Course (Demo Recall) Patient is on BiPAP and Levophed drip looks comfortable, responsive. No fevers overnight. WBC 8.5 H&H 9.5 and 29.1 platelets 17 Microbiology: Blood cultures since admission grew Klebsiella pneumonia ESBL, left lower extremity wound culture growing Klebsiella pneumoniae ESBL and Leah albicans, MRSA swab negative Antimicrobials: Meropenem, fluconazole, daptomycin Allergy: Zosyn, vancomycin Chest x-ray this morning revealed interstitial edema with small bilateral pleural effusions Indwelling: Right upper thigh Davie catheter, left femoral triple-lumen catheter Physical examination: This is a chronically ill-appearing cachectic middle-aged woman who is laying comfortably in bed. Head atraumatic normocephalic. Neck is supple. Chest rise symmetrical. Breath sounds diminished bases. Heart: S1-S2. Abdomen distended, soft. Bowel sounds present. 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 Continue on current antibiotics and overall prognosis guarded Consultation Date/Type/Reason Admit Date/Time Nov 21, 2018 at 04:53 Initial Consult Date Type of Consult id Date/Time of Note DATE: 11/23/18 TIME: 11:41 Exam/Review of Systems Exam Vitals Vital Signs Date Temp Pulse Resp B/P (MAP) Pulse Ox O2 O2 Flow FiO2 Time Delivery Rate 11/23/18 68 18 102/55 100 09:15 (71) 11/23/18 BIPAP 09:00 11/23/18 97.1 08:00 11/23/18 35 05:39 11/22/18 3.0 17:25 Intake and Output 11/22/18 11/22/18 11/23/18 1515:00 23:00 07:00 IntakeIntake Total 675.000 ml 718.873 ml 1083.250 ml OutputOutput Total 200 ml 1900 ml BalanceBalance 675.000 ml 518.873 ml -816.750 ml Results Result Diagram: 11/23/18 0436 11/23/18 0430 Results 24hrs Laboratory Tests Test 11/22/18 15:34 11/22/18 17:40 11/22/18 18:48 11/23/18 00:47 Bedside Glucose 57 L 64 L 127 76 Test 11/23/18 03:56 11/23/18 04:30 11/23/18 04:36 11/23/18 07:00 Bedside Glucose 81 Sodium Level 133 L Potassium Level 3.1 L Chloride Level 97 Carbon Dioxide 26 Level Anion Gap 10 Blood Urea 18 # Nitrogen Creatinine 1.38 H Est Glomerular 39 L Filtrat Rate mL/min Glucose Level 79 Calcium Level 7.7 L Phosphorus Level 2.4 #L Magnesium Level 1.9 White Blood 8.5 Count Red Blood Count 3.13 #L Hemoglobin 9.5 #L Hematocrit 29.1 L Mean Corpuscular 93.0 Volume Mean Corpuscular 30.4 Hemoglobin Mean Corpuscular 32.6 Hemoglobin Anh nt Red Cell 20.7 H Distribution Width Platelet Count 17 #*L Mean Platelet 11.9 H Volume Immature 2.000 H Granulocytes % Neutrophils % Segmented 56 Neutrophils % (Manual) Band Neutrophils 28 H % (Manual) Lymphocytes % Lymphocytes % 11 L (Manual) Monocytes % Monocytes % 4 (Manual) Eosinophils % Basophils % Metamyelocytes % 1 H (manual) Nucleated Red 0.0 Blood Cells % Immature 0.170 H Granulocytes # Neutrophils # Neutrophils # 5.0 (Manual) Band Neutrophils 2.3 H # Lymphocytes 0.9 (Manual) Lymphocytes # Monocytes # Monocytes # 0.3 (Manual) Eosinophils # Basophils # Metamyelocytes # 0.0 Nucleated Red Blood Cells # Platelet SIG DECREASED Estimate Polychromasia 1+ Poikilocytosis 3+ Anisocytosis 2+ Macrocytosis 2+ Ovalocytes 1+ Blood Gas Blood arterial Specimen Source Arterial Blood 11/23/2018 7:18: Date Drawn 45 AM Arterial Blood 7.304 L pH (Temp corrected) Arterial Blood 53.4 H pCO2 (Temp correct) Arterial Blood 125.2 H pO2 (Temp corrected) Arterial Blood 25.9 HCO3 Arterial Blood -0.9 Base Excess Arterial Blood 98.1 H Oxygen Saturatio n Morgan Test N/A Arterial Blood Right Brachial Gas Puncture Site Arterial 0.6 Blood Carboxyhem oglobin Arterial Blood 0.2 Methemoglobin Blood Gas A-a O2 62.3 H Differential Oxyhemoglobin 97.3 Percent Blood Gas 37.0 Temperature Blood Gas 18.0 Respiration Rate Blood Gas Actual 20 Respiration Rate Blood Gas MASK - BIPAP Modality FiO2 35.0 Blood Gas 13 Pressure Support Blood Gas 18/5 IPAP/EPAP Ratio Blood Gas TM Notified Whom Blood Gas 11/23/2018 7:50: Notified Time 44 AM Test 11/23/18 09:04 Bedside Glucose 86 Medications Medication Current Medications Ondansetron HCl (Zofran Inj) 4 mg Q6H PRN IV NAUSEA AND/OR VOMITING Last administered on 11/21/18 16:50; Admin Dose 4 MG; Start 11/21/18 at 05:30 Albuterol/ Ipratropium (Duoneb) 3 ml Q2H RESP THERAPY PRN NEB SHORTNESS OF BREATH; Start 11/21/18 at 05:30 Acetaminophen (Tylenol Liquid) 650 mg Q6H PRN PO PAIN LEVEL 1-3 OR FEVER; Start 11/21/18 at 05:30 Pantoprazole (Protonix Iv) 40 mg DAILY@06 IV Last administered on 11/23/18 06:28; Admin Dose 40 MG; Start 11/21/18 at 06:00 Amiodarone HCl (Cordarone) 200 mg BID PO Last administered on 11/21/18 09:42; Admin Dose 200 MG; Start 11/21/18 at 09:00 Folic Acid (Folic Acid) 1 mg DAILY PO Last administered on 11/21/18 09:43; Admin Dose 1 MG; Start 11/21/18 at 09:00 Levothyroxine Sodium (Synthroid) 75 mcg BEFORE BREAKFAST PO Last administered on 11/21/18 09:43; Admin Dose 75 MCG; Start 11/21/18 at 07:00 Dextrose 1,000 ml @ 40 mls/hr Q24H IV Last administered on 11/23/18 11:05; Admin Dose 40 MLS/HR; Start 11/21/18 at 06:00 Meropenem/Sodium Chloride 50 ml @ 100 mls/hr Q12 IVPB Last administered on 11/23/18 09:01; Admin Dose 100 MLS/HR; Start 11/21/18 at 21:00 Fluconazole/ Sodium Chloride 50 ml @ 50 mls/hr Q24H IVPB Last administered on 11/23/18 11:36; Admin Dose 50 MLS/HR; Start 11/21/18 at 11:30 Daptomycin 320 mg/ Sodium Chloride 100 ml @ 200 mls/hr Q48H IVPB Last administered on 11/21/18 15:27; Admin Dose 200 MLS/HR; Start 11/21/18 at 16:00 Norepinephrine 250 ml @ 1.875 mls/ hr TITRATE IV Last administered on 11/23/18 11:04; Admin Dose 9.375 MLS/HR; Start 11/21/18 at 19:00 Diagnostic Test (Pha) (Accu-Chek) 1 ea Q4 XX Last administered on 11/23/18 09:04; Admin Dose 1 EA; Start 11/22/18 at 21:00 Potassium Phosphate 40 meq/ Sodium Chloride 259.0909 ml @ 64.773 m... ONCE ONCE IVPB Last administered on 11/23/18 10:03; Admin Dose 64.773 MLS/HR; Start 11/23/18 at 08:30; Stop 11/23/18 at 12:29 KELSIE ELY NP Nov 23, 2018 11:42
[2018-11-23] MEDS ORDERED: CASPOFUNGIN 70 MG in SOD CHLORIDE 0.9% 250 ML IVPB ONE (13:00)
[2018-11-23] MEDS ORDERED: GLUCAGON 1 MG INJ IM PRN (13:30)
[2018-11-23] MEDS ORDERED: GLUCOSE GEL 15 GRAM TUBE BUCCAL PRN (13:30)
[2018-11-23] MEDS ORDERED: GLUCOSE GEL 15 GRAM TUBE PO PRN ×2 (13:30)
[2018-11-23] MEDS: DEXTROSE 50% 50 ML SYRINGE IV PRN ×2 (13:34→21:09)
--- NOTE | 2018-11-23 13:40 | CONS ---
Assessment/Plan Assessment/Plan Assessment/Plan (Daily) acute encephalopathy possible multiple causes including acute hypoxic respiratory failure hypoglycemia dementia and delirium currently being worked up by Dr. Mata hypoglycemia left lower extremity wound end-stage renal disease pancytopenia ascites status post pacemaker hypertension malnutrition failure to thrive Patient's son is on his way to the hospital now I will have a meeting with him. She is to be addressed are patient's level of care, heart failure, respiratory failure, sepsis syndrome, mental status changes, pancytopenia. CODE STATUS need to be addressed also. Consultation Date/Type/Reason Admit Date/Time Nov 21, 2018 at 04:53 Date/Time of Note DATE: 11/23/18 TIME: 13:38 Past Medical History Medical History: hypertension, hypothyroid, renal disease, other (See HPI) Home Meds Reported Medications Folic Acid* (Folic Acid*) 1 Mg Tablet, 1 MG PO DAILY, TAB 08/10/18 Amiodarone Hcl* (Amiodarone Hcl*) 200 Mg Tablet, 200 MG PO BID, #60 TAB 08/10/18 Pantoprazole* (Protonix*) 40 Mg Tablet., 40 MG PO DAILY, TAB 08/10/18 Multivit/Ca Carb/B Cmplx/Fa* (Iram-Xiomara*) 1 Tab Tab, 1 TAB PO DAILY, TAB 08/10/18 Levothyroxine Sodium* (Levoxyl*) 75 Mcg Tablet, 75 MCG PO BEFORE BREAKFAST, #30 TAB 08/10/18 Discontinued Reported Medications Ranitidine Hcl* (Ranitidine Hcl*) 150 Mg Tablet, 150 MG PO HS, #30 TAB 08/10/18 Medications Current Medications Ondansetron HCl (Zofran Inj) 4 mg Q6H PRN IV NAUSEA AND/OR VOMITING Last administered on 11/21/18at 16:50; Admin Dose 4 MG; Start 11/21/18 at 05:30 Albuterol/ Ipratropium (Duoneb) 3 ml Q2H RESP THERAPY PRN NEB SHORTNESS OF BREATH; Start 11/21/18 at 05:30 Acetaminophen (Tylenol Liquid) 650 mg Q6H PRN PO PAIN LEVEL 1-3 OR FEVER; Start 11/21/18 at 05:30 Pantoprazole (Protonix Iv) 40 mg DAILY@06 IV Last administered on 11/23/18at 06:28; Admin Dose 40 MG; Start 11/21/18 at 06:00 Amiodarone HCl (Cordarone) 200 mg BID PO Last administered on 11/21/18 09:42; Admin Dose 200 MG; Start 11/21/18 at 09:00 Folic Acid (Folic Acid) 1 mg DAILY PO Last administered on 11/21/18 09:43; Admin Dose 1 MG; Start 11/21/18 at 09:00 Levothyroxine Sodium (Synthroid) 75 mcg BEFORE BREAKFAST PO Last administered on 11/21/18 09:43; Admin Dose 75 MCG; Start 11/21/18 at 07:00 Dextrose 1,000 ml @ 40 mls/hr Q24H IV Last administered on 11/23/18 11:05; Admin Dose 40 MLS/HR; Start 11/21/18 at 06:00 Meropenem/Sodium Chloride 50 ml @ 100 mls/hr Q12 IVPB Last administered on 11/23/18 09:01; Admin Dose 100 MLS/HR; Start 11/21/18 at 21:00 Daptomycin 320 mg/ Sodium Chloride 100 ml @ 200 mls/hr Q48H IVPB Last administered on 11/21/18 15:27; Admin Dose 200 MLS/HR; Start 11/21/18 at 16:00 Norepinephrine 250 ml @ 1.875 mls/ hr TITRATE IV Last administered on 11/23/18 11:04; Admin Dose 9.375 MLS/HR; Start 11/21/18 at 19:00 Diagnostic Test (Pha) (Accu-Chek) 1 ea Q4 XX Last administered on 11/23/18at 13:13; Admin Dose 1 EA; Start 11/22/18 at 21:00 Caspofungin 70 mg/ Sodium Chloride 250 ml @ 250 mls/hr ONCE ONCE IVPB ; Start 11/23/18 at 13:00; Stop 11/23/18 at 13:59 Caspofungin 50 mg/ Sodium Chloride 250 ml @ 250 mls/hr Q24H IVPB ; Start 11/24/18 at 13:00 Miscellaneous Information (* Miscellaneous Pharmacy Order) HYPOGLYCEMIA PROTOCOL w... ONCE ONCE XX ; Start 11/23/18 at 13:30; Stop 11/23/18 at 13:31; Status UNV Allergies: Coded Allergies: Penicillins (Verified Allergy, Unknown, 08/10/18) tazobactam (Verified Allergy, Unknown, 08/10/18) vancomycin (Verified Allergy, Unknown, 08/10/18) Past Surgical History Past Surgical Hx: other Social History Alcohol Use: none Smoking Status: Never smoker Drug Use: none Exam/Review of Systems Exam Vitals Vital Signs Date Temp Pulse Resp B/P (MAP) Pulse Ox O2 O2 Flow FiO2 Time Delivery Rate 11/23/18 80 14 111/66 100 12:30 (81) 11/23/18 97.4 Nasal 3.0 12:00 Cannula 11/23/18 35 05:39 Intake and Output 11/22/18 11/22/18 11/23/18 1515:00 23:00 07:00 IntakeIntake Total 675.000 ml 718.873 ml 1083.250 ml OutputOutput Total 200 ml 1900 ml BalanceBalance 675.000 ml 518.873 ml -816.750 ml Constitutional: non-verbal, distress Neurological: lethargic (Lethargic), unresponsive (Minimally responsive), other (Cannot assess fully patient is not responding to verbal commands.) Results Result Diagram: 11/23/18 0436 11/23/18 0430 Results 24hrs Laboratory Tests Test 11/22/18 15:34 11/22/18 17:40 11/22/18 18:48 11/23/18 00:47 Bedside Glucose 57 L 64 L 127 76 Test 11/23/18 03:56 11/23/18 04:30 11/23/18 04:36 11/23/18 07:00 Bedside Glucose 81 Sodium Level 133 L Potassium Level 3.1 L Chloride Level 97 Carbon Dioxide 26 Level Anion Gap 10 Blood Urea 18 # Nitrogen Creatinine 1.38 H Est Glomerular 39 L Filtrat Rate mL/min Glucose Level 79 Calcium Level 7.7 L Phosphorus Level 2.4 #L Magnesium Level 1.9 White Blood 8.5 Count Red Blood Count 3.13 #L Hemoglobin 9.5 #L Hematocrit 29.1 L Mean Corpuscular 93.0 Volume Mean Corpuscular 30.4 Hemoglobin Mean Corpuscular 32.6 Hemoglobin Anh nt Red Cell 20.7 H Distribution Width Platelet Count 17 #*L Mean Platelet 11.9 H Volume Immature 2.000 H Granulocytes % Neutrophils % Segmented 56 Neutrophils % (Manual) Band Neutrophils 28 H % (Manual) Lymphocytes % Lymphocytes % 11 L (Manual) Monocytes % Monocytes % 4 (Manual) Eosinophils % Basophils % Metamyelocytes % 1 H (manual) Nucleated Red 0.0 Blood Cells % Immature 0.170 H Granulocytes # Neutrophils # Neutrophils # 5.0 (Manual) Band Neutrophils 2.3 H # Lymphocytes 0.9 (Manual) Lymphocytes # Monocytes # Monocytes # 0.3 (Manual) Eosinophils # Basophils # Metamyelocytes # 0.0 Nucleated Red Blood Cells # Platelet SIG DECREASED Estimate Polychromasia 1+ Poikilocytosis 3+ Anisocytosis 2+ Macrocytosis 2+ Ovalocytes 1+ Blood Gas Blood arterial Specimen Source Arterial Blood 11/23/2018 7:18: Date Drawn 45 AM Arterial Blood 7.304 L pH (Temp corrected) Arterial Blood 53.4 H pCO2 (Temp correct) Arterial Blood 125.2 H pO2 (Temp corrected) Arterial Blood 25.9 HCO3 Arterial Blood -0.9 Base Excess Arterial Blood 98.1 H Oxygen Saturatio n Morgan Test N/A Arterial Blood Right Brachial Gas Puncture Site Arterial 0.6 Blood Carboxyhem oglobin Arterial Blood 0.2 Methemoglobin Blood Gas A-a O2 62.3 H Differential Oxyhemoglobin 97.3 Percent Blood Gas 37.0 Temperature Blood Gas 18.0 Respiration Rate Blood Gas Actual 20 Respiration Rate Blood Gas MASK - BIPAP Modality FiO2 35.0 Blood Gas 13 Pressure Support Blood Gas 18/5 IPAP/EPAP Ratio Blood Gas TM Notified Whom Blood Gas 11/23/2018 7:50: Notified Time 44 AM Test 11/23/18 09:04 11/23/18 13:12 Bedside Glucose 86 47 *L Medications Medication Current Medications Ondansetron HCl (Zofran Inj) 4 mg Q6H PRN IV NAUSEA AND/OR VOMITING Last administered on 11/21/18at 16:50; Admin Dose 4 MG; Start 11/21/18 at 05:30 Albuterol/ Ipratropium (Duoneb) 3 ml Q2H RESP THERAPY PRN NEB SHORTNESS OF BREATH; Start 11/21/18 at 05:30 Acetaminophen (Tylenol Liquid) 650 mg Q6H PRN PO PAIN LEVEL 1-3 OR FEVER; Start 11/21/18 at 05:30 Pantoprazole (Protonix Iv) 40 mg DAILY@06 IV Last administered on 11/23/18 06:28; Admin Dose 40 MG; Start 11/21/18 at 06:00 Amiodarone HCl (Cordarone) 200 mg BID PO Last administered on 11/21/18 09:42; Admin Dose 200 MG; Start 11/21/18 at 09:00 Folic Acid (Folic Acid) 1 mg DAILY PO Last administered on 11/21/18 09:43; Admin Dose 1 MG; Start 11/21/18 at 09:00 Levothyroxine Sodium (Synthroid) 75 mcg BEFORE BREAKFAST PO Last administered on 11/21/18 09:43; Admin Dose 75 MCG; Start 11/21/18 at 07:00 Dextrose 1,000 ml @ 40 mls/hr Q24H IV Last administered on 11/23/18 11:05; Admin Dose 40 MLS/HR; Start 11/21/18 at 06:00 Meropenem/Sodium Chloride 50 ml @ 100 mls/hr Q12 IVPB Last administered on 11/23/18 09:01; Admin Dose 100 MLS/HR; Start 11/21/18 at 21:00 Daptomycin 320 mg/ Sodium Chloride 100 ml @ 200 mls/hr Q48H IVPB Last administ ered on 11/21/18 15:27; Admin Dose 200 MLS/HR; Start 11/21/18 at 16:00 Norepinephrine 250 ml @ 1.875 mls/ hr TITRATE IV Last administered on 11/23/18 11:04; Admin Dose 9.375 MLS/HR; Start 11/21/18 at 19:00 Diagnostic Test (Pha) (Accu-Chek) 1 ea Q4 XX Last administered on 11/23/18 13:13; Admin Dose 1 EA; Start 11/22/18 at 21:00 Caspofungin 70 mg/ Sodium Chloride 250 ml @ 250 mls/hr ONCE ONCE IVPB ; Start 11/23/18 at 13:00; Stop 11/23/18 at 13:59 Caspofungin 50 mg/ Sodium Chloride 250 ml @ 250 mls/hr Q24H IVPB ; Start 11/24/18 at 13:00 Miscellaneous Information (* Miscellaneous Pharmacy Order) HYPOGLYCEMIA PROTOCOL w... ONCE ONCE XX ; Start 11/23/18 at 13:30; Stop 11/23/18 at 13:31; Status UNV JULIEN SALINAS Nov 23, 2018 13:40
--- NOTE | 2018-11-23 15:31 | PN ---
Date/Time of Note Date/Time of Note DATE: 11/23/18 TIME: 15:12 Assessment/Plan VTE Prophylaxis Risk score (from Nsg)>0 risk: 11 SCD applied (from Nsg): No SCD contraindicated: low risk/ambulating Pharmacological prophylaxis: heparin Lines/Catheters IV Catheter Type (from Nrsg): Central Line Central line still needed: Yes Urinary Cath still in place: No Assessment/Plan Hospital Course Chronoically ill appearing Stable respiratory pattern Lungs clear Distended belly, firm masses Peripherral edema presents 58 yo female with ESRD, cirrohsihs, DMII presents wiht hypoglycemia, leg infection 1. Acute encephalopathy secondary to severe hypoglycemia and hypercapnia- improved -Patient now more appropriate and mentation at baseline per son, who is at the bedside -Patient continues to become hypoglycemic, hypoglycemic protocol has been orde red -Head CT negative for acute findings -Monitor closely -Continue BiPAP 2. Severe hypoglycemia: No history of diabetes and patient not on any insulin or sulfonylurea or any other diabetic medication -This could be from decreased p.o. intake and liver dysfunction from CHO -Ultrasound of the liver to evaluate for cirrhosis and/or fatty liver -Hypoglycemic protocol 3. Hypercapnic respiratory failure -Supplemental oxygen, bronchodilators -Continue as needed BiPAP -Pulmonary consultation appreciated 4. 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 Her son, which was found to have fungus in her wound for which she was given fluconazole. Will obtain records -ID consultation appreciated -Continue daptomycin, meropenem and fluconazole -Venous study was negative for DVT -Wound care consult 5. ESRD with fluid overload -Patient gets dialysis Friday -Nephrology consult appreciated, patient is fluid overloaded and will need dialysis -Blood pressure has been low and central line has been placed for pressors during dialysis -Patient not stable for thoracentesis at this time 6. Pancytopenia with coagulopathy: Patient had workup here during recent hospitalization. -Thrombocytopenia was thought to be secondary to HIT but may be related to liver disease -Per son, patient did receive platelet transfusion at [facility] -Picture of pancytopenia with macrocytic anemia and coagulopathy does appear consistent with liver disease, await liver ultrasound 7. Hypothyroidism: Continue Synthroid 8. History of hypertension -Blood pressure currently low 9. History of pacemaker: No acute issue 10. Ascites secondary to fluid overload and/or liver disease: Status post paracentesis 3 weeks ago with removal of 4.5 L -No need for emergent paracentesis, in addition patient's blood pressure is low -Follow-up on abdominal ultrasound 11. Chronic peritoneal dialysis: This is not being used. Not being removed because of the severe thrombocytopenia. This can be addressed at [facility] where she usually gets her care 12. Failure to thrive: Patient is very cachectic -Nutrition consult Prophylaxis: SCDs DC planning: Patient not stable for DC Result Diagram: 11/23/18 0436 11/23/18 0430 Results 24hrs Laboratory Tests Test 11/22/18 15:34 11/22/18 17:40 11/22/18 18:48 11/23/18 00:47 Bedside Glucose 57 L 64 L 127 76 Test 11/23/18 03:56 11/23/18 04:30 11/23/18 04:36 11/23/18 07:00 Bedside Glucose 81 Sodium Level 133 L Potassium Level 3.1 L Chloride Level 97 Carbon Dioxide 26 Level Anion Gap 10 Blood Urea 18 # Nitrogen Creatinine 1.38 H Est Glomerular 39 L Filtrat Rate mL/min Glucose Level 79 Calcium Level 7.7 L Phosphorus Level 2.4 #L Magnesium Level 1.9 White Blood 8.5 Count Red Blood Count 3.13 #L Hemoglobin 9.5 #L Hematocrit 29.1 L Mean Corpuscular 93.0 Volume Mean Corpuscular 30.4 Hemoglobin Mean Corpuscular 32.6 Hemoglobin Anh nt Red Cell 20.7 H Distribution Width Platelet Count 17 #*L Mean Platelet 11.9 H Volume Immature 2.000 H Granulocytes % Neutrophils % Segmented 56 Neutrophils % (Manual) Band Neutrophils 28 H % (Manual) Lymphocytes % Lymphocytes % 11 L (Manual) Monocytes % Monocytes % 4 (Manual) Eosinophils % Basophils % Metamyelocytes % 1 H (manual) Nucleated Red 0.0 Blood Cells % Immature 0.170 H Granulocytes # Neutrophils # Neutrophils # 5.0 (Manual) Band Neutrophils 2.3 H # Lymphocytes 0.9 (Manual) Lymphocytes # Monocytes # Monocytes # 0.3 (Manual) Eosinophils # Basophils # Metamyelocytes # 0.0 Nucleated Red Blood Cells # Platelet SIG DECREASED Estimate Polychromasia 1+ Poikilocytosis 3+ Anisocytosis 2+ Macrocytosis 2+ Ovalocytes 1+ Blood Gas Blood arterial Specimen Source Arterial Blood 11/23/2018 7:18: Date Drawn 45 AM Arterial Blood 7.304 L pH (Temp corrected) Arterial Blood 53.4 H pCO2 (Temp correct) Arterial Blood 125.2 H pO2 (Temp corrected) Arterial Blood 25.9 HCO3 Arterial Blood -0.9 Base Excess Arterial Blood 98.1 H Oxygen Saturatio n Morgan Test N/A Arterial Blood Right Brachial Gas Puncture Site Arterial 0.6 Blood Carboxyhem oglobin Arterial Blood 0.2 Methemoglobin Blood Gas A-a O2 62.3 H Differential Oxyhemoglobin 97.3 Percent Blood Gas 37.0 Temperature Blood Gas 18.0 Respiration Rate Blood Gas Actual 20 Respiration Rate Blood Gas MASK - BIPAP Modality FiO2 35.0 Blood Gas 13 Pressure Support Blood Gas 18/5 IPAP/EPAP Ratio Blood Gas TM Notified Whom Blood Gas 11/23/2018 7:50: Notified Time 44 AM Test 11/23/18 09:04 11/23/18 13:12 11/23/18 14:01 11/23/18 14:46 Bedside Glucose 86 47 *L 141 89 Subjective 24 Hr Interval Summary Free Text/Dictation Continues on bipap, low dose vasopressors Hypoglycemia is resolved Exam/Review of Systems Exam Vitals Vital Signs Date Temp Pulse Resp B/P (MAP) Pulse Ox O2 O2 Flow FiO2 Time Delivery Rate 11/23/18 80 14 111/66 100 12:30 (81) 11/23/18 97.4 Nasal 3.0 12:00 Cannula 11/23/18 35 05:39 Intake and Output 11/22/18 11/22/18 11/23/18 1515:00 23:00 07:00 IntakeIntake Total 675.000 ml 718.873 ml 1083.250 ml OutputOutput Total 200 ml 1900 ml BalanceBalance 675.000 ml 518.873 ml -816.750 ml Results Results 24hrs Laboratory Tests Test 11/22/18 15:34 11/22/18 17:40 11/22/18 18:48 11/23/18 00:47 Bedside Glucose 57 L 64 L 127 76 Test 11/23/18 03:56 11/23/18 04:30 11/23/18 04:36 11/23/18 07:00 Bedside Glucose 81 Sodium Level 133 L Potassium Level 3.1 L Chloride Level 97 Carbon Dioxide 26 Level Anion Gap 10 Blood Urea 18 # Nitrogen Creatinine 1.38 H Est Glomerular 39 L Filtrat Rate mL/min Glucose Level 79 Calcium Level 7.7 L Phosphorus Level 2.4 #L Magnesium Level 1.9 White Blood 8.5 Count Red Blood Count 3.13 #L Hemoglobin 9.5 #L Hematocrit 29.1 L Mean Corpuscular 93.0 Volume Mean Corpuscular 30.4 Hemoglobin Mean Corpuscular 32.6 Hemoglobin Anh nt Red Cell 20.7 H Distribution Width Platelet Count 17 #*L Mean Platelet 11.9 H Volume Immature 2.000 H Granulocytes % Neutrophils % Segmented 56 Neutrophils % (Manual) Band Neutrophils 28 H % (Manual) Lymphocytes % Lymphocytes % 11 L (Manual) Monocytes % Monocytes % 4 (Manual) Eosinophils % Basophils % Metamyelocytes % 1 H (manual) Nucleated Red 0.0 Blood Cells % Immature 0.170 H Granulocytes # Neutrophils # Neutrophils # 5.0 (Manual) Band Neutrophils 2.3 H # Lymphocytes 0.9 (Manual) Lymphocytes # Monocytes # Monocytes # 0.3 (Manual) Eosinophils # Basophils # Metamyelocytes # 0.0 Nucleated Red Blood Cells # Platelet SIG DECREASED Estimate Polychromasia 1+ Poikilocytosis 3+ Anisocytosis 2+ Macrocytosis 2+ Ovalocytes 1+ Blood Gas Blood arterial Specimen Source Arterial Blood 11/23/2018 7:18: Date Drawn 45 AM Arterial Blood 7.304 L pH (Temp corrected) Arterial Blood 53.4 H pCO2 (Temp correct) Arterial Blood 125.2 H pO2 (Temp corrected) Arterial Blood 25.9 HCO3 Arterial Blood -0.9 Base Excess Arterial Blood 98.1 H Oxygen Saturatio n Morgan Test N/A Arterial Blood Right Brachial Gas Puncture Site Arterial 0.6 Blood Carboxyhem oglobin Arterial Blood 0.2 Methemoglobin Blood Gas A-a O2 62.3 H Differential Oxyhemoglobin 97.3 Percent Blood Gas 37.0 Temperature Blood Gas 18.0 Respiration Rate Blood Gas Actual 20 Respiration Rate Blood Gas MASK - BIPAP Modality FiO2 35.0 Blood Gas 13 Pressure Support Blood Gas 18/5 IPAP/EPAP Ratio Blood Gas TM Notified Whom Blood Gas 11/23/2018 7:50: Notified Time 44 AM Test 11/23/18 09:04 11/23/18 13:12 4/15/19 14:01 11/23/18 14:46 Bedside Glucose 86 47 *L 141 89 Medications Medication Current Medications Ondansetron HCl (Zofran Inj) 4 mg Q6H PRN IV NAUSEA AND/OR VOMITING Last administered on 11/21/18 16:50; Admin Dose 4 MG; Start 11/21/18 at 05:30 Albuterol/ Ipratropium (Duoneb) 3 ml Q2H RESP THERAPY PRN NEB SHORTNESS OF BREATH; Start 11/21/18 at 05:30 Acetaminophen (Tylenol Liquid) 650 mg Q6H PRN PO PAIN LEVEL 1-3 OR FEVER; Start 11/21/18 at 05:30 Amiodarone HCl (Cordarone) 200 mg BID PO Last administered on 11/21/18 09:42; Admin Dose 200 MG; Start 11/21/18 at 09:00 Folic Acid (Folic Acid) 1 mg DAILY PO Last administered on 11/21/18 09:43; Admin Dose 1 MG; Start 11/21/18 at 09:00 Levothyroxine Sodium (Synthroid) 75 mcg BEFORE BREAKFAST PO Last administered on 11/21/18 09:43; Admin Dose 75 MCG; Start 11/21/18 at 07:00 Dextrose 1,000 ml @ 40 mls/hr Q24H IV Last administered on 11/23/18 11:05; Admin Dose 40 MLS/HR; Start 11/21/18 at 06:00 Meropenem/Sodium Chloride 50 ml @ 100 mls/hr Q12 IVPB Last administered on 11/23/18 09:01; Admin Dose 100 MLS/HR; Start 11/21/18 at 21:00 Daptomycin 320 mg/ Sodium Chloride 100 ml @ 200 mls/hr Q48H IVPB Last administered on 11/21/18 15:27; Admin Dose 200 MLS/HR; Start 11/21/18 at 16:00 Norepinephrine 250 ml @ 1.875 mls/ hr TITRATE IV Last administered on 11/23/18 11:04; Admin Dose 9.375 MLS/HR; Start 11/21/18 at 19:00 Diagnostic Test (Pha) (Accu-Chek) 1 ea Q4 XX Last administered on 11/23/18 13:13; Admin Dose 1 EA; Start 11/22/18 at 21:00 Caspofungin 50 mg/ Sodium Chloride 250 ml @ 250 mls/hr Q24H IVPB ; Start 11/24/18 at 13:00 Miscellaneous Information 1 ea NOTE XX ; Start 11/23/18 at 13:30 Glucose (Glutose) 15 gm Q15M PRN PO DECREASED GLUCOSE; Start 11/23/18 at 13:30 Glucose (Glutose) 22.5 gm Q15M PRN PO DECREASED GLUCOSE; Start 11/23/18 at 13:30 Dextrose (D50w Syringe) 25 ml Q15M PRN IV DECREASED GLUCOSE; Start 11/23/18 at 13:30 Dextrose (D50w Syringe) 50 ml Q15M PRN IV DECREASED GLUCOSE; Start 11/23/18 at 13:30 Glucagon (Glucagen) 1 mg Q15M PRN IM DECREASED GLUCOSE; Start 11/23/18 at 13:30 Glucose (Glutose) 15 gm Q15M PRN BUCCAL DECREASED GLUCOSE; Start 11/23/18 at 13:30 Famotidine (Pepcid Iv) 20 mg DAILY IV ; Start 11/24/18 at 09:00 JOSLYN LANDRUM MD Nov 23, 2018 15:28
[2018-11-23] MEDS: DAPTOMYCIN 320 MG in SOD CHLORIDE 0.9% 100 ML IVPB SCH (16:13)
[2018-11-24] VITALS (106 sets, daily range): BP systolic 72–156; BP diastolic 50–92; PULSE 54–90; RESP 16–27
[2018-11-24] MEDS ORDERED: MIDAZOLAM (DRIP) 50 mg/50 mL 50 ML IV SCH
[2018-11-24] MEDS ORDERED: PHENYLephrine 80 MG in DEXTROSE 5% 242 ML IV SCH ×2
[2018-11-24] MEDS: PROPOFOL 100 ML IV SCH ×2 (00:19→10:44)
[2018-11-24] MEDS: ACCU-CHEK XX SCH ×6 (01:39→21:08)
[2018-11-24] MEDS: DEXTROSE 50% 50 ML SYRINGE IV PRN ×2 (01:42→05:07)
[2018-11-24] MEDS: LEVOTHYROXINE 75 MCG TAB PO SCH (05:04)
[2018-11-24] MEDS: NORepinephrine 8MG/250 ML (PMX 250 ML IV SCH (06:39)
[2018-11-24] MEDS ORDERED: CA CHLORIDE 10% 10 ML SYRINGE ONE (07:00)
[2018-11-24] MEDS ORDERED: NA BICARBONATE 8.4% 50 ML SYG ONE (07:00)
[2018-11-24] MEDS ORDERED: ETOMIDATE 20 MG INJ ONE (07:00)
[2018-11-24] MEDS ORDERED: EPINEPHrine 0.1 MG/ML SYG ONE (07:00)
--- NOTE | 2018-11-24 07:32 | CONS ---
Assessment/Plan Assessment/Plan Assessment/Plan (Daily) Another conversation with patient's son events of last night reviewed with patient bradycardia down became apneic epi given and ROSC. Patient is intubated I discussed goals of care once again with patient's son there is another family who is to arrive later on this afternoon. Son once again adamantly refuses to consider changing patient's CODE STATUS to DO NOT RESUSCITATE. I have emphasized to him that all care will be continued we just would not do chest compressions. He will consider and discuss later on again today. Consultation Date/Type/Reason Admit Date/Time Nov 21, 2018 at 04:53 Date/Time of Note DATE: 11/24/18 TIME: 07:30 Past Medical History Medical History: hypertension, hypothyroid, renal disease, other (See HPI) Home Meds Reported Medications Folic Acid* (Folic Acid*) 1 Mg Tablet, 1 MG PO DAILY, TAB 08/10/18 Amiodarone Hcl* (Amiodarone Hcl*) 200 Mg Tablet, 200 MG PO BID, #60 TAB 08/10/18 Pantoprazole* (Protonix*) 40 Mg Tablet.dr, 40 MG PO DAILY, TAB 08/10/18 Multivit/Ca Carb/B Cmplx/Fa* (Iram-Xiomara*) 1 Tab Tab, 1 TAB PO DAILY, TAB 08/10/18 Levothyroxine Sodium* (Levoxyl*) 75 Mcg Tablet, 75 MCG PO BEFORE BREAKFAST, #30 TAB 08/10/18 Discontinued Reported Medications Ranitidine Hcl* (Ranitidine Hcl*) 150 Mg Tablet, 150 MG PO HS, #30 TAB 08/10/18 Medications Current Medications Ondansetron HCl (Zofran Inj) 4 mg Q6H PRN IV NAUSEA AND/OR VOMITING Last administered on 11/21/18at 16:50; Admin Dose 4 MG; Start 11/21/18 at 05:30 Albuterol/ Ipratropium (Duoneb) 3 ml Q2H RESP THERAPY PRN NEB SHORTNESS OF BREATH; Start 11/21/18 at 05:30 Acetaminophen (Tylenol Liquid) 650 mg Q6H PRN PO PAIN LEVEL 1-3 OR FEVER; Start 11/21/18 at 05:30 Amiodarone HCl (Cordarone) 200 mg BID PO Last administered on 11/21/18at 09:42; Admin Dose 200 MG; Start 11/21/18 at 09:00 Folic Acid (Folic Acid) 1 mg DAILY PO Last administered on 11/21/18 09:43; Admin Dose 1 MG; Start 11/21/18 at 09:00 Levothyroxine Sodium (Synthroid) 75 mcg BEFORE BREAKFAST PO Last administered on 11/21/18 09:43; Admin Dose 75 MCG; Start 11/21/18 at 07:00 Dextrose 1,000 ml @ 75 mls/hr [id number] IV Last administered on 11/23/18 11:05; Admin Dose 40 MLS/HR; Start 11/21/18 at 06:00 Meropenem/Sodium Chloride 50 ml @ 100 mls/hr Q12 IVPB Last administered on 11/23/18 20:58; Admin Dose 100 MLS/HR; Start 11/21/18 at 21:00 Daptomycin 320 mg/ Sodium Chloride 100 ml @ 200 mls/hr Q48H IVPB Last administered on 11/23/18 16:13; Admin Dose 200 MLS/HR; Start 11/21/18 at 16:00 Norepinephrine 250 ml @ 1.875 mls/ hr TITRATE IV Last administered on 11/24/18 06:39; Admin Dose 11.25 MLS/HR; Start 11/21/18 at 19:00 Diagnostic Test (Pha) (Accu-Chek) 1 ea Q4 XX Last administered on 11/24/18 05:04; Admin Dose 1 EA; Start 11/22/18 at 21:00 Caspofungin 50 mg/ Sodium Chloride 250 ml @ 250 mls/hr Q24H IVPB ; Start 11/24/18 at 13:00 Miscellaneous Information 1 ea NOTE XX ; Start 11/23/18 at 13:30 Glucose (Glutose) 15 gm Q15M PRN PO DECREASED GLUCOSE; Start 11/23/18 at 13:30 Glucose (Glutose) 22.5 gm Q15M PRN PO DECREASED GLUCOSE; Start 11/23/18 at 13:30 Dextrose (D50w Syringe) 25 ml Q15M PRN IV DECREASED GLUCOSE Last administered on 11/24/18at 05:07; Admin Dose 25 ML; Start 11/23/18 at 13:30 Dextrose (D50w Syringe) 50 ml Q15M PRN IV DECREASED GLUCOSE Last administered on 11/24/18at 01:42; Admin Dose 50 ML; Start 11/23/18 at 13:30 Glucagon (Glucagen) 1 mg Q15M PRN IM DECREASED GLUCOSE; Start 11/23/18 at 13:30 Glucose (Glutose) 15 gm Q15M PRN BUCCAL DECREASED GLUCOSE; Start 11/23/18 at 13:30 Famotidine (Pepcid Iv) 20 mg DAILY IV ; Start 11/24/18 at 09:00 Propofol 100 ml @ 1.59 mls/hr Q12H IV Last administered on 11/24/18at 00:19; Admin Dose 1.59 MLS/HR; Start 11/24/18 at 00:00 Phenylephrine HCl 80 mg/Dextrose 250 ml @ 18.75 mls/ hr TITRATE IV ; Start 11/24/18 at 00:00 Midazolam HCl 50 ml @ 1 mls/hr TITRATE IV ; Start 11/24/18 at 00:00 Allergies: Coded Allergies: Penicillins (Verified Allergy, Unknown, 08/10/18) tazobactam (Verified Allergy, Unknown, 08/10/18) vancomycin (Verified Allergy, Unknown, 08/10/18) Past Surgical History Past Surgical Hx: other Social History Alcohol Use: none Smoking Status: Never smoker Drug Use: none Exam/Review of Systems Exam Vitals Vital Signs Date Temp Pulse Resp B/P (MAP) Pulse Ox O2 O2 Flow FiO2 Time Delivery Rate 11/24/18 70 20 100 60 05:30 11/24/18 89/60 (70) 05:00 11/24/18 97.6 Mechanical 04:00 Ventilator 11/23/18 3.0 23:00 Intake and Output 11/23/18 11/23/18 11/24/18 1515:00 23:00 07:00 IntakeIntake Total 896.591 ml 571.25 ml 433.72 ml OutputOutput Total 0 ml 0 ml 0 ml BalanceBalance 896.591 ml 571.25 ml 433.72 ml Results Result Diagram: 11/24/18 0611 11/24/18 0611 Results 24hrs Laboratory Tests Test 11/23/18 09:04 11/23/18 13:12 11/23/18 14:01 11/23/18 14:46 Bedside Glucose 86 47 *L 141 89 Test 11/23/18 16:10 11/23/18 17:20 11/23/18 21:02 11/23/18 21:30 White Blood 9.3 Count Red Blood Count 3.31 L Hemoglobin 10.1 L Hematocrit 30.6 L Mean Corpuscular 92.4 Volume Mean Corpuscular 30.5 Hemoglobin Mean Corpuscular 33.0 Hemoglobin Anh nt Red Cell 21.1 H Distribution Width Platelet Count 13 #*L Mean Platelet Volume Immature 1.500 H Granulocytes % Neutrophils % Lymphocytes % Monocytes % Eosinophils % Basophils % Nucleated Red 0.0 Blood Cells % Immature 0.140 H Granulocytes # Neutrophils # Lymphocytes # Monocytes # Eosinophils # Basophils # Nucleated Red Blood Cells # Bedside Glucose 75 49 *L 157 Test 11/23/18 21:48 11/24/18 00:16 11/24/18 00:17 11/24/18 00:30 Bedside Glucose 115 White Blood 7.3 # Count Red Blood Count 2.96 L Hemoglobin 9.1 L Hematocrit 27.4 L Mean Corpuscular 92.6 Volume Mean Corpuscular 30.7 Hemoglobin Mean Corpuscular 33.2 Hemoglobin Anh nt Red Cell 20.7 H Distribution Width Platelet Count 18 #*L Mean Platelet 10.7 H Volume Immature 1.500 H Granulocytes % Neutrophils % Segmented 72 Neutrophils % (Manual) Band Neutrophils 14 H % (Manual) Lymphocytes % Lymphocytes % 8 L (Manual) Monocytes % Monocytes % 6 (Manual) Eosinophils % Basophils % Nucleated Red 0.0 Blood Cells % Immature 0.110 H Granulocytes # Neutrophils # Neutrophils # 5.3 (Manual) Band Neutrophils 1.0 H # Lymphocytes 0.5 L (Manual) Lymphocytes # Monocytes # Monocytes # 0.4 (Manual) Eosinophils # Basophils # Nucleated Red Blood Cells # Platelet SIG DECREASED Estimate Giant Platelets 1 H Polychromasia 1+ Poikilocytosis 3+ Anisocytosis 2+ Microcytosis 1+ Macrocytosis 1+ Lactic Acid 3.2 *H Level Sodium Level 131 L Potassium Level 4.1 Chloride Level 96 L Carbon Dioxide 20 L Level Anion Gap 15 H Blood Urea 26 H Nitrogen Creatinine 1.55 H Est Glomerular 34 L Filtrat Rate mL/min Glucose Level 46 #*L Calcium Level 8.4 Total Bilirubin 1.2 Direct Bilirubin 0.40 H Indirect 0.8 Bilirubin Aspartate Amino 21 Transf (AST/SGOT ) Alanine 13 Aminotransferase (ALT/SGPT) Alkaline 108 Phosphatase Total Protein 5.4 L Albumin 2.7 L Globulin 2.70 Albumin/Globulin 1.00 Ratio Blood Gas Blood arterial Specimen Source Arterial Blood 11/24/2018 1:10: Date Drawn 59 AM Arterial Blood 7.381 pH (Temp corrected) Arterial Blood 38.0 pCO2 (Temp correct) Arterial Blood 236.3 H pO2 (Temp corrected) Arterial Blood 22.0 HCO3 Arterial Blood -2.7 Base Excess Arterial Blood 99.3 H Oxygen Saturatio n Morgan Test N/A Arterial Blood Right Radial Gas Puncture Site Arterial 0.3 Blood Carboxyhem oglobin Arterial Blood 0.2 Methemoglobin Blood Gas A-a O2 438.7 H Differential Oxyhemoglobin 98.8 Percent Blood Gas 37.0 Temperature Blood Gas 20.0 Respiration Rate Blood Gas Actual 20 Respiration Rate Blood Gas VENT - AC Modality FiO2 100.0 Blood Gas Tidal 450.0 Volume Blood Gas Low 5.0 PEEP Setting Blood Gas 46.0 Inspiratory Pressure Blood Gas S.H. Notified Whom Blood Gas 11/24/2018 1:17: Notified Time 01 AM Test 11/24/18 01:39 11/24/18 01:59 11/24/18 02:14 11/24/18 04:59 Bedside Glucose 30 *L 146 134 Lab Scanned BLOOD TRANSFUSI Report ON Test 11/24/18 05:03 11/24/18 05:25 11/24/18 05:42 11/24/18 06:11 Bedside Glucose 68 L 127 100 White Blood 7.4 Count Red Blood Count 2.44 L Hemoglobin 7.5 L Hematocrit 22.2 L Mean Corpuscular 91.0 Volume Mean Corpuscular 30.7 Hemoglobin Mean Corpuscular 33.8 Hemoglobin Anh nt Red Cell 20.5 H Distribution Width Platelet Count 32 #L Mean Platelet 10.5 H Volume Immature 0.700 H Granulocytes % Neutrophils % Lymphocytes % Monocytes % Eosinophils % Basophils % Nucleated Red 0.0 Blood Cells % Immature 0.050 H Granulocytes # Neutrophils # Lymphocytes # Monocytes # Eosinophils # Basophils # Nucleated Red Blood Cells # Sodium Level 130 L Potassium Level 4.0 Chloride Level 95 L Carbon Dioxide 21 Level Anion Gap 14 H Blood Urea 28 H Nitrogen Creatinine 1.57 H Est Glomerular 34 L Filtrat Rate mL/min Glucose Level 85 Lactic Acid 3.9 *H Level Calcium Level 8.2 L Phosphorus Level 3.9 Magnesium Level 1.7 Medications Medication Current Medications Ondansetron HCl (Zofran Inj) 4 mg Q6H PRN IV NAUSEA AND/OR VOMITING Last administered on 11/21/18 16:50; Admin Dose 4 MG; Start 11/21/18 at 05:30 Albuterol/ Ipratropium (Duoneb) 3 ml Q2H RESP THERAPY PRN NEB SHORTNESS OF BREATH; Start 11/21/18 at 05:30 Acetaminophen (Tylenol Liquid) 650 mg Q6H PRN PO PAIN LEVEL 1-3 OR FEVER; Start 11/21/18 at 05:30 Amiodarone HCl (Cordarone) 200 mg BID PO Last administered on 11/21/18 09:42; Admin Dose 200 MG; Start 11/21/18 at 09:00 Folic Acid (Folic Acid) 1 mg DAILY PO Last administered on 11/21/18 09:43; Admin Dose 1 MG; Start 11/21/18 at 09:00 Levothyroxine Sodium (Synthroid) 75 mcg BEFORE BREAKFAST PO Last administered on 11/21/18 09:43; Admin Dose 75 MCG; Start 11/21/18 at 07:00 Dextrose 1,000 ml @ 75 mls/hr [id number] IV Last administered on 11/23/18 11:05; Admin Dose 40 MLS/HR; Start 11/21/18 at 06:00 Meropenem/Sodium Chloride 50 ml @ 100 mls/hr Q12 IVPB Last administered on 11/23/18 20:58; Admin Dose 100 MLS/HR; Start 11/21/18 at 21:00 Daptomycin 320 mg/ Sodium Chloride 100 ml @ 200 mls/hr Q48H IVPB Last administered on 11/23/18 16:13; Admin Dose 200 MLS/HR; Start 11/21/18 at 16:00 Norepinephrine 250 ml @ 1.875 mls/ hr TITRATE IV Last administered on 11/24/18 06:39; Admin Dose 11.25 MLS/HR; Start 11/21/18 at 19:00 Diagnostic Test (Pha) (Accu-Chek) 1 ea Q4 XX Last administered on 11/24/18 05:04; Admin Dose 1 EA; Start 11/22/18 at 21:00 Caspofungin 50 mg/ Sodium Chloride 250 ml @ 250 mls/hr Q24H IVPB ; Start 11/24/18 at 13:00 Miscellaneous Information 1 ea NOTE XX ; Start 11/23/18 at 13:30 Glucose (Glutose) 15 gm Q15M PRN PO DECREASED GLUCOSE; Start 11/23/18 at 13:30 Glucose (Glutose) 22.5 gm Q15M PRN PO DECREASED GLUCOSE; Start 11/23/18 at 13:30 Dextrose (D50w Syringe) 25 ml Q15M PRN IV DECREASED GLUCOSE Last administered on 11/24/18at 05:07; Admin Dose 25 ML; Start 11/23/18 at 13:30 Dextrose (D50w Syringe) 50 ml Q15M PRN IV DECREASED GLUCOSE Last administered on 11/24/18at 01:42; Admin Dose 50 ML; Start 11/23/18 at 13:30 Glucagon (Glucagen) 1 mg Q15M PRN IM DECREASED GLUCOSE; Start 11/23/18 at 13:30 Glucose (Glutose) 15 gm Q15M PRN BUCCAL DECREASED GLUCOSE; Start 11/23/18 at 13:30 Famotidine (Pepcid Iv) 20 mg DAILY IV ; Start 11/24/18 at 09:00 Propofol 100 ml @ 1.59 mls/hr Q12H IV Last administered on 11/24/18at 00:19; Admin Dose 1.59 MLS/HR; Start 11/24/18 at 00:00 Phenylephrine HCl 80 mg/Dextrose 250 ml @ 18.75 mls/ hr TITRATE IV ; Start 11/24/18 at 00:00 Midazolam HCl 50 ml @ 1 mls/hr TITRATE IV ; Start 11/24/18 at 00:00 JULIEN SALINAS Nov 24, 2018 07:32
[2018-11-24] MEDS: FOLIC ACID 1 MG TAB PO SCH (08:07)
[2018-11-24] MEDS: MEROPENEM 500MG/50 ML (PMX) 50 ML IVPB SCH ×2 (08:08→20:40)
[2018-11-24] MEDS: FAMOTIDINE 20 MG INJ IV SCH (08:08)
[2018-11-24] MEDS: AMIODARONE 200 MG TAB PO SCH ×2 (08:08→20:40)
[2018-11-24] MEDS: BALSAM PERU/CASTOR OIL 60 GM TUBE TOP SCH ×2 (08:09→20:39)
[2018-11-24] MEDS: ALBUMIN HUMAN 25% 100 ML IV SCH ×2 (08:09→16:17)
--- NOTE | 2018-11-24 09:49 | CONS ---
Assessment/Plan Assessment/Plan Assessment/Plan (Daily) Ventilator setting; AC of 20, tidal volume 450, PEEP of 5, 50% FiO2. Patient is currently on Levophed 4 mics per minute. Assessment and recommendations; next 1. patient admitted with CHF exacerbation requiring intubation with significant radiological improvement as well as improvement in hypoxemia. 2. Severely emaciated state. 3. Persistent hypotension due to underlying cardiomyopathy. 4. History of cardiac arrhythmia, history of pacemaker placement in the past. 5. Anemia and severe thrombocytopenia.; Improved though. No overt bleeding noted. 6. Ascites due to CHF. 7. End-stage renal disease, dialysis dependent. Continue current supportive care. Obtain follow-up ABG. Hemodialysis per t rail turner. Patient scheduled for end of the session today. Patient to be given weaning trial from ventilator in 24 hours. Prognosis is very poor. 35 minutes of critical care time was spent evaluating the patient. Consultation Date/Type/Reason Admit Date/Time Nov 21, 2018 at 04:53 Initial Consult Date Type of Consult Pulmonary Date/Time of Note DATE: 11/24/18 TIME: 09:45 24 HR Interval Summary Free Text/Dictation Patient's condition remains critical. Remains hypotensive, requiring pressor support. General exam; middle-aged female, appears macerated, awake and responsive. Orally intubated. Currently in no distress. Exam/Review of Systems Exam Vitals Vital Signs Date Temp Pulse Resp B/P (MAP) Pulse Ox O2 O2 Flow FiO2 Time Delivery Rate 11/24/18 65 20 112/64 08:15 (80) 11/24/18 97.9 Mechanical 08:00 Ventilator 11/24/18 60 08:00 11/24/18 100 05:30 11/23/18 3.0 23:00 Intake and Output 11/23/18 11/23/18 11/24/18 1515:00 23:00 07:00 IntakeIntake Total 896.591 ml 571.25 ml 433.72 ml OutputOutput Total 0 ml 0 ml 0 ml BalanceBalance 896.591 ml 571.25 ml 433.72 ml Exam H EENT exam; supple neck, positive JVD. No lymphadenopathy. Midline trachea. No thyromegaly. Orally intubated. Patient does have carious teeth. Pupils are small bilaterally. Chest exam; diminished but clear breath sounds. S1-S2 audible, no murmurs. Regular rhythm. Abdomen exam; soft, scaphoid. No organomegaly. Bowel sounds are sluggish. Positive fluid thrill with abdominal distention. Extremity exam; no edema. Dressing applied to left thigh. [employer] exam; patient awake and responsive appropriately. But exhibiting severe generalized weakness. Results Result Diagram: 11/24/18 0611 11/24/18 0611 Results 24hrs Laboratory Tests Test 11/23/18 13:12 11/23/18 14:01 11/23/18 14:46 11/23/18 16:10 Bedside Glucose 47 *L 141 89 White Blood 9.3 Count Red Blood Count 3.31 L Hemoglobin 10.1 L Hematocrit 30.6 L Mean 92.4 Corpuscular Volume Mean 30.5 Corpuscular Hemoglobin Mean 33.0 Corpuscular Hemoglobin Conc ent Red Cell 21.1 H Distribution Width Platelet Count 13 #*L Mean Platelet Volume Immature 1.500 H Granulocytes % Neutrophils % Lymphocytes % Monocytes % Eosinophils % Basophils % Nucleated Red 0.0 Blood Cells % Immature 0.140 H Granulocytes # Neutrophils # Lymphocytes # Monocytes # Eosinophils # Basophils # Nucleated Red Blood Cells # Test 11/23/18 17:20 11/23/18 21:02 11/23/18 21:30 11/23/18 21:48 Bedside Glucose 75 49 *L 157 115 Test 11/24/18 00:16 11/24/18 00:17 11/24/18 00:30 11/24/18 01:39 White Blood 7.3 # Count Red Blood Count 2.96 L Hemoglobin 9.1 L Hematocrit 27.4 L Mean 92.6 Corpuscular Volume Mean 30.7 Corpuscular Hemoglobin Mean 33.2 Corpuscular Hemoglobin Conc ent Red Cell 20.7 H Distribution Width Platelet Count 18 #*L Mean Platelet 10.7 H Volume Immature 1.500 H Granulocytes % Neutrophils % Segmented 72 Neutrophils % (Manual) Band 14 H Neutrophils % (Manual) Lymphocytes % Lymphocytes % 8 L (Manual) Monocytes % Monocytes % 6 (Manual) Eosinophils % Basophils % Nucleated Red 0.0 Blood Cells % Immature 0.110 H Granulocytes # Neutrophils # Neutrophils # 5.3 (Manual) Band 1.0 H Neutrophils # Lymphocytes 0.5 L (Manual) Lymphocytes # Monocytes # Monocytes # 0.4 (Manual) Eosinophils # Basophils # Nucleated Red Blood Cells # Platelet SIG DECREASED Estimate Giant Platelets 1 H Polychromasia 1+ Poikilocytosis 3+ Anisocytosis 2+ Microcytosis 1+ Macrocytosis 1+ Lactic Acid 3.2 *H Level Sodium Level 131 L Potassium Level 4.1 Chloride Level 96 L Carbon Dioxide 20 L Level Anion Gap 15 H Blood Urea 26 H Nitrogen Creatinine 1.55 H Est Glomerular 34 L Filtrat Rate mL/min Glucose Level 46 #*L Calcium Level 8.4 Total Bilirubin 1.2 Direct 0.40 H Bilirubin Indirect 0.8 Bilirubin Aspartate Amino 21 Transf (AST/SGO T) Alanine 13 Aminotransferas e (ALT/SGPT) Alkaline 108 Phosphatase Total Protein 5.4 L Albumin 2.7 L Globulin 2.70 Albumin/Globuli 1.00 n Ratio Blood Gas Blood arterial Specimen Source Arterial Blood 11/24/2018 1:10: Date Drawn 59 AM Arterial Blood 7.381 pH (Temp corrected ) Arterial Blood 38.0 pCO2 (Temp correct) Arterial Blood 236.3 H pO2 (Temp corrected ) Arterial Blood 22.0 HCO3 Arterial Blood -2.7 Base Excess Arterial Blood 99.3 H Oxygen Saturati on Morgan Test N/A Arterial Blood Right Radial Gas Puncture Site Arterial 0.3 Blood Carboxyhe moglobin Arterial Blood 0.2 Methemoglobin Blood Gas A-a 438.7 H O2 Differential Oxyhemoglobin 98.8 Percent Blood Gas 37.0 Temperature Blood Gas 20.0 Respiration Rate Blood Gas 20 Actual Respiration Rat e Blood Gas VENT - AC Modality FiO2 100.0 Blood Gas Tidal 450.0 Volume Blood Gas Low 5.0 PEEP Setting Blood Gas 46.0 Inspiratory Pressure Blood Gas S.H. Notified Whom Blood Gas 11/24/2018 1:17: Notified Time 01 AM Bedside Glucose 30 *L Test 11/24/18 01:59 11/24/18 02:14 11/24/18 04:59 11/24/18 05:03 Bedside Glucose 146 134 68 L Lab Scanned BLOOD TRANSFUSI Report ON Test 11/24/18 05:25 11/24/18 05:42 11/24/18 06:06 11/24/18 06:11 Bedside Glucose 127 100 Hepatitis B NEGATIVE Surface Antigen White Blood 7.4 Count Red Blood Count 2.44 L Hemoglobin 7.5 L Hematocrit 22.2 L Mean 91.0 Corpuscular Volume Mean 30.7 Corpuscular Hemoglobin Mean 33.8 Corpuscular Hemoglobin Conc ent Red Cell 20.5 H Distribution Width Platelet Count 32 #L Mean Platelet 10.5 H Volume Immature 0.700 H Granulocytes % Neutrophils % Segmented 79 H Neutrophils % (Manual) Band 1 Neutrophils % (Manual) Lymphocytes % Lymphocytes % 10 L (Manual) Monocytes % Monocytes % 9 (Manual) Eosinophils % Eosinophils % 1 (Manual) Basophils % Nucleated Red 1 H Blood Cells % Immature 0.050 H Granulocytes # Neutrophils # Neutrophils # 5.8 (Manual) Band 0.0 Neutrophils # Lymphocytes 0.7 L (Manual) Lymphocytes # Monocytes # Monocytes # 0.6 (Manual) Eosinophils # Basophils # Nucleated Red Blood Cells # Platelet SIG DECREASED Estimate Giant Platelets 3 H Poikilocytosis 1+ Anisocytosis 2+ Macrocytosis 1+ Target Cells 1+ Sodium Level 130 L Potassium Level 4.0 Chloride Level 95 L Carbon Dioxide 21 Level Anion Gap 14 H Blood Urea 28 H Nitrogen Creatinine 1.57 H Est Glomerular 34 L Filtrat Rate mL/min Glucose Level 85 Lactic Acid 3.9 *H Level Calcium Level 8.2 L Phosphorus 3.9 Level Magnesium Level 1.7 Test 11/24/18 08:26 Bedside Glucose 94 Medications Medication Current Medications Ondansetron HCl (Zofran Inj) 4 mg Q6H PRN IV NAUSEA AND/OR VOMITING Last administered on 11/21/18at 16:50; Admin Dose 4 MG; Start 11/21/18 at 05:30 Albuterol/ Ipratropium (Duoneb) 3 ml Q2H RESP THERAPY PRN NEB SHORTNESS OF BREATH; Start 11/21/18 at 05:30 Acetaminophen (Tylenol Liquid) 650 mg Q6H PRN PO PAIN LEVEL 1-3 OR FEVER; Start 11/21/18 at 05:30 Amiodarone HCl (Cordarone) 200 mg BID PO Last administered on 11/24/18at 08:08; Admin Dose 200 MG; Start 11/21/18 at 09:00 Folic Acid (Folic Acid) 1 mg DAILY PO Last administered on 11/24/18at 08:07; Admin Dose 1 MG; Start 11/21/18 at 09:00 Levothyroxine Sodium (Synthroid) 75 mcg BEFORE BREAKFAST PO Last administered on 11/21/18at 09:43; Admin Dose 75 MCG; Start 11/21/18 at 07:00 Dextrose 1,000 ml @ 75 mls/hr [id number] IV Last administered on 11/23/18at 11:05; Admin Dose 40 MLS/HR; Start 11/21/18 at 06:00 Meropenem/Sodium Chloride 50 ml @ 100 mls/hr Q12 IVPB Last administered on at 08:08; Admin Dose 100 MLS/HR; Start 11/21/18 at 21:00 Daptomycin 320 mg/ Sodium Chloride 100 ml @ 200 mls/hr Q48H IVPB Last administered on 11/23/18at 16:13; Admin Dose 200 MLS/HR; Start 11/21/18 at 16:00 Norepinephrine 250 ml @ 1.875 mls/ hr TITRATE IV Last administered on 11/24/18at 06:39; Admin Dose 11.25 MLS/HR; Start 11/21/18 at 19:00 Diagnostic Test (Pha) (Accu-Chek) 1 ea Q4 XX Last administered on 11/24/18at 08:26; Admin Dose 1 EA; Start 11/22/18 at 21:00 Caspofungin 50 mg/ Sodium Chloride 250 ml @ 250 mls/hr Q24H IVPB ; Start 11/24/18 at 13:00 Miscellaneous Information 1 ea NOTE XX ; Start 11/23/18 at 13:30 Glucose (Glutose) 15 gm Q15M PRN PO DECREASED GLUCOSE; Start 11/23/18 at 13:30 Glucose (Glutose) 22.5 gm Q15M PRN PO DECREASED GLUCOSE; Start 11/23/18 at 13:30 Dextrose (D50w Syringe) 25 ml Q15M PRN IV DECREASED GLUCOSE Last administered on 11/24/18at 05:07; Admin Dose 25 ML; Start 11/23/18 at 13:30 Dextrose (D50w Syringe) 50 ml Q15M PRN IV DECREASED GLUCOSE Last administered on 11/24/18at 01:42; Admin Dose 50 ML; Start 11/23/18 at 13:30 Glucagon (Glucagen) 1 mg Q15M PRN IM DECREASED GLUCOSE; Start 11/23/18 at 13:30 Glucose (Glutose) 15 gm Q15M PRN BUCCAL DECREASED GLUCOSE; Start 11/23/18 at 13:30 Famotidine (Pepcid Iv) 20 mg DAILY IV Last administered on 11/24/18at 08:08; Admin Dose 20 MG; Start 11/24/18 at 09:00 Propofol 100 ml @ 1.59 mls/hr Q12H IV Last administered on 11/24/18at 00:19; Admin Dose 1.59 MLS/HR; Start 11/24/18 at 00:00 Phenylephrine HCl 80 mg/Dextrose 250 ml @ 18.75 mls/ hr TITRATE IV ; Start 11/24/18 at 00:00 Midazolam HCl 50 ml @ 1 mls/hr TITRATE IV ; Start 11/24/18 at 00:00 Albumin Human 100 ml @ 100 mls/hr Q8H IV Last administered on 11/24/18at 08:09; Admin Dose 100 MLS/HR; Start 11/24/18 at 08:00; Stop 11/25/18 at 00:59 MARIAN KUMAR Nov 24, 2018 09:49
[2018-11-24] MEDS: DEXTROSE 10% 1,000 ML IV SCH (10:44)
--- NOTE | 2018-11-24 12:40 | PN ---
DATE: 11/24/2018 SUBJECTIVE: The patient is critically ill. The patient admitted yesterday, necessitated intubation after going into respiratory distress. The patient also had an episode of cardiac arrest, was revive d with return of spontaneous circulation after being given epinephrine. The patient currently is cri tically ill on pressor support. There is no hemoptysis, hematemesis, or hematochezia. OBJECTIVE: VITAL SIGNS: Blood pressure is 89/60, respirations 20, pulse 65, temperature 98.6. HEENT: Head is normocephalic. NECK: Supple. HEART: Regular rate. LUNGS: Show diminished breath sounds at the base. ABDOMEN: Soft, positive distention. Positive peritoneal catheter. EXTREMITIES: Negative for clubbing, cyanosis. Positive diffuse anasarca. DERMATOLOGIC: No rashes. MUSCULOSKELETAL: No joint effusion. NEUROLOGIC: The patient is obtunded. LABORATORY DATA: Shows a sodium 130, potassium 4.0, BUN 20, creatinine 1.57, glucose 34. Lactic aci d 3.9. White count 7.4, hemoglobin 7.5, platelet count is 32. IMAGING STUDIES: Reviewed. ASSESSMENT AND PLAN: 1. End-stage renal disease. The patient's access is Perm-A-Cath. Anticipate hemodialysis today. I f hemodynamically stable, we will dialyze for 3 hours on a 4k bath, ultrafiltrate approximately 1 to 2 liters. We will monitor closely. 2. Septic shock, etiology secondary to pneumonia with bacteremia. Blood cultures are positive for K lebsiella. Underlying source unclear, possible previous infected femoral graft, questionable line se psis. We will speak with infectious disease if the patient's Perm-A-Cath needs to be removed. We wo uld otherwise continue current treatment plan, continue broad spectrum antibiotics, antifungal therap y, continue pressor support, continue IV fluids. 3. Volume overload with diffuse anasarca, etiology is multifactorial secondary to end-stage renal di sease, capillary leak. We will continue ultrafiltration with hemodialysis if hemodynamically stable. 4. Anemia. Continue to monitor hemoglobin and hematocrit levels. We will continue Epogen as needed . 5. Hypernatremia. The patient will be dialyzed on a 140 sodium bath. 6. Hypokalemia. Continue to monitor and replete. 7. Mineral bone disorder, monitor calcium and phosphorus levels. 8. Ventilatory dependent respiratory failure. Vent settings and ABG was reviewed. Continue to [facility]. Follow up with pulmonary. 9. Acute encephalopathy, etiology toxic metabolic. Continue to monitor. 10. 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 11. Ascites. Continue to monitor. 12. Hypothyroidism. Continue Synthroid. 13. Lactic acidosis secondary to septic shock. Continue current treatment plan. Please note, I spent over 30 minutes of critical care time with this patient. Dictated By: SARIKA JOINER DO NR/NTS Conf#: [id number] DID#: [id number] CC: MANYD BATES MD;*EndCC*
--- NOTE | 2018-11-24 12:54 | CONS ---
Assessment/Plan Assessment/Plan Hospital Course (Demo Recall) Patient was intubated last night she is sedated on low-dose levo fed hypothermic, family at bedside WBC today 7.4 platelets 32 Microbiology: Blood cultures since admission grew Klebsiella pneumonia ESBL, left lower extremity wound culture growing Klebsiella pneumoniae ESBL and Leah albicans, MRSA swab negative Antimicrobials: Meropenem, Cancidas, daptomycin Allergy: Zosyn, vancomycin Indwelling: Right upper thigh Davie catheter, left femoral triple-lumen catheter Physical examination: This is a chronically ill-appearing cachectic middle-aged woman who is laying comfortably in bed. Head atraumatic normocephalic. Neck is supple. Chest rise symmetrical. Breath sounds diminished bases. Heart: S1-S2. Abdomen distended, soft. Bowel sounds present. 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, cannot rule out infected graft -End-stage renal disease, hemodialysis dependent -Atrial fibrillation status post permanent pacemaker -Unstageable sacral decubitus -History of peritoneal dialysis with peritoneal dialysis still in place -Ascites status post paracentesis 3 weeks ago -Failure to thrive -Progressive thrombocytopenia Plan: Remains hemodynamically unstable and overall doing poorly, pending repeat blood cultures, continue on current antibiotics Consultation Date/Type/Reason Admit Date/Time Nov 21, 2018 at 04:53 Initial Consult Date Type of Consult id Date/Time of Note DATE: 11/24/18 TIME: 12:53 Exam/Review of Systems Exam Vitals Vital Signs Date Temp Pulse Resp B/P (MAP) Pulse Ox O2 O2 Flow FiO2 Time Delivery Rate 11/24/18 67 12:00 11/24/18 97.4 20 90/55 (67) 100 Mechanical 12:00 Ventilator 11/24/18 50 11:40 11/23/18 3.0 23:00 Intake and Output 11/23/18 11/23/18 11/24/18 1414:59 22:59 06:59 IntakeIntake Total 933.466 ml 560.00 ml 496.22 ml OutputOutput Total 0 ml 0 ml 0 ml BalanceBalance 933.466 ml 560.00 ml 496.22 ml Results Result Diagram: 11/24/18 0611 11/24/18 0611 Results 24hrs Laboratory Tests Test 11/23/18 13:12 11/23/18 14:01 11/23/18 14:46 11/23/18 16:10 Bedside Glucose 47 *L 141 89 White Blood 9.3 Count Red Blood Count 3.31 L Hemoglobin 10.1 L Hematocrit 30.6 L Mean 92.4 Corpuscular Volume Mean 30.5 Corpuscular Hemoglobin Mean 33.0 Corpuscular Hemoglobin Conc ent Red Cell 21.1 H Distribution Width Platelet Count 13 #*L Mean Platelet Volume Immature 1.500 H Granulocytes % Neutrophils % Lymphocytes % Monocytes % Eosinophils % Basophils % Nucleated Red 0.0 Blood Cells % Immature 0.140 H Granulocytes # Neutrophils # Lymphocytes # Monocytes # Eosinophils # Basophils # Nucleated Red Blood Cells # Test 11/23/18 17:20 11/23/18 21:02 11/23/18 21:30 11/23/18 21:48 Bedside Glucose 75 49 *L 157 115 Test 11/24/18 00:16 11/24/18 00:17 11/24/18 00:30 11/24/18 01:39 White Blood 7.3 # Count Red Blood Count 2.96 L Hemoglobin 9.1 L Hematocrit 27.4 L Mean 92.6 Corpuscular Volume Mean 30.7 Corpuscular Hemoglobin Mean 33.2 Corpuscular Hemoglobin Conc ent Red Cell 20.7 H Distribution Width Platelet Count 18 #*L Mean Platelet 10.7 H Volume Immature 1.500 H Granulocytes % Neutrophils % Segmented 72 Neutrophils % (Manual) Band 14 H Neutrophils % (Manual) Lymphocytes % Lymphocytes % 8 L (Manual) Monocytes % Monocytes % 6 (Manual) Eosinophils % Basophils % Nucleated Red 0.0 Blood Cells % Immature 0.110 H Granulocytes # Neutrophils # Neutrophils # 5.3 (Manual) Band 1.0 H Neutrophils # Lymphocytes 0.5 L (Manual) Lymphocytes # Monocytes # Monocytes # 0.4 (Manual) Eosinophils # Basophils # Nucleated Red Blood Cells # Platelet SIG DECREASED Estimate Giant Platelets 1 H Polychromasia 1+ Poikilocytosis 3+ Anisocytosis 2+ Microcytosis 1+ Macrocytosis 1+ Lactic Acid 3.2 *H Level Sodium Level 131 L Potassium Level 4.1 Chloride Level 96 L Carbon Dioxide 20 L Level Anion Gap 15 H Blood Urea 26 H Nitrogen Creatinine 1.55 H Est Glomerular 34 L Filtrat Rate mL/min Glucose Level 46 #*L Calcium Level 8.4 Total Bilirubin 1.2 Direct 0.40 H Bilirubin Indirect 0.8 Bilirubin Aspartate Amino 21 Transf (AST/SGO T) Alanine 13 Aminotransferas e (ALT/SGPT) Alkaline 108 Phosphatase Total Protein 5.4 L Albumin 2.7 L Globulin 2.70 Albumin/Globuli 1.00 n Ratio Blood Gas Blood arterial Specimen Source Arterial Blood 11/24/2018 1:10: Date Drawn 59 AM Arterial Blood 7.381 pH (Temp corrected ) Arterial Blood 38.0 pCO2 (Temp correct) Arterial Blood 236.3 H pO2 (Temp corrected ) Arterial Blood 22.0 HCO3 Arterial Blood -2.7 Base Excess Arterial Blood 99.3 H Oxygen Saturati on Morgan Test N/A Arterial Blood Right Radial Gas Puncture Site Arterial 0.3 Blood Carboxyhe moglobin Arterial Blood 0.2 Methemoglobin Blood Gas A-a 438.7 H O2 Differential Oxyhemoglobin 98.8 Percent Blood Gas 37.0 Temperature Blood Gas 20.0 Respiration Rate Blood Gas 20 Actual Respiration Rat e Blood Gas VENT - AC Modality FiO2 100.0 Blood Gas Tidal 450.0 Volume Blood Gas Low 5.0 PEEP Setting Blood Gas 46.0 Inspiratory Pressure Blood Gas S.H. Notified Whom Blood Gas 11/24/2018 1:17: Notified Time 01 AM Bedside Glucose 30 *L Test 11/24/18 01:59 11/24/18 02:14 11/24/18 04:59 11/24/18 05:03 Bedside Glucose 146 134 68 L Lab Scanned BLOOD TRANSFUSI Report ON Test 11/24/18 05:25 11/24/18 05:42 11/24/18 06:06 11/24/18 06:11 Bedside Glucose 127 100 Hepatitis B NEGATIVE Surface Antigen White Blood 7.4 Count Red Blood Count 2.44 L Hemoglobin 7.5 L Hematocrit 22.2 L Mean 91.0 Corpuscular Volume Mean 30.7 Corpuscular Hemoglobin Mean 33.8 Corpuscular Hemoglobin Conc ent Red Cell 20.5 H Distribution Width Platelet Count 32 #L Mean Platelet 10.5 H Volume Immature 0.700 H Granulocytes % Neutrophils % Segmented 79 H Neutrophils % (Manual) Band 1 Neutrophils % (Manual) Lymphocytes % Lymphocytes % 10 L (Manual) Monocytes % Monocytes % 9 (Manual) Eosinophils % Eosinophils % 1 (Manual) Basophils % Nucleated Red 1 H Blood Cells % Immature 0.050 H Granulocytes # Neutrophils # Neutrophils # 5.8 (Manual) Band 0.0 Neutrophils # Lymphocytes 0.7 L (Manual) Lymphocytes # Monocytes # Monocytes # 0.6 (Manual) Eosinophils # Basophils # Nucleated Red Blood Cells # Platelet SIG DECREASED Estimate Giant Platelets 3 H Poikilocytosis 1+ Anisocytosis 2+ Macrocytosis 1+ Target Cells 1+ Sodium Level 130 L Potassium Level 4.0 Chloride Level 95 L Carbon Dioxide 21 Level Anion Gap 14 H Blood Urea 28 H Nitrogen Creatinine 1.57 H Est Glomerular 34 L Filtrat Rate mL/min Glucose Level 85 Lactic Acid 3.9 *H Level Calcium Level 8.2 L Phosphorus 3.9 Level Magnesium Level 1.7 Test 11/24/18 08:26 Bedside Glucose 94 Medications Medication Current Medications Ondansetron HCl (Zofran Inj) 4 mg Q6H PRN IV NAUSEA AND/OR VOMITING Last administered on 11/21/18at 16:50; Admin Dose 4 MG; Start 11/21/18 at 05:30 Albuterol/ Ipratropium (Duoneb) 3 ml Q2H RESP THERAPY PRN NEB SHORTNESS OF BREATH; Start 11/21/18 at 05:30 Acetaminophen (Tylenol Liquid) 650 mg Q6H PRN PO PAIN LEVEL 1-3 OR FEVER; Start 11/21/18 at 05:30 Amiodarone HCl (Cordarone) 200 mg BID PO Last administered on 11/24/18at 08:08; Admin Dose 200 MG; Start 11/21/18 at 09:00 Folic Acid (Folic Acid) 1 mg DAILY PO Last administered on 11/24/18 08:07; Admin Dose 1 MG; Start 11/21/18 at 09:00 Levothyroxine Sodium (Synthroid) 75 mcg BEFORE BREAKFAST PO Last administered on 11/21/18 09:43; Admin Dose 75 MCG; Start 11/21/18 at 07:00 Dextrose 1,000 ml @ 75 mls/hr [id number] IV Last administered on 11/24/18 10:44; Admin Dose 75 MLS/HR; Start 11/21/18 at 06:00 Meropenem/Sodium Chloride 50 ml @ 100 mls/hr Q12 IVPB Last administered on 11/24/18 08:08; Admin Dose 100 MLS/HR; Start 11/21/18 at 21:00 Daptomycin 320 mg/ Sodium Chloride 100 ml @ 200 mls/hr Q48H IVPB Last administered on 11/23/18at 16:13; Admin Dose 200 MLS/HR; Start 11/21/18 at 16:00 Norepinephrine 250 ml @ 1.875 mls/ hr TITRATE IV Last administered on 11/24/18 06:39; Admin Dose 11.25 MLS/HR; Start 11/21/18 at 19:00 Diagnostic Test (Pha) (Accu-Chek) 1 ea Q4 XX Last administered on 11/24/18at 08:26; Admin Dose 1 EA; Start 11/22/18 at 21:00 Caspofungin 50 mg/ Sodium Chloride 250 ml @ 250 mls/hr Q24H IVPB ; Start 11/24/18 at 13:00 Miscellaneous Information 1 ea NOTE XX ; Start 11/23/18 at 13:30 Glucose (Glutose) 15 gm Q15M PRN PO DECREASED GLUCOSE; Start 11/23/18 at 13:30 Glucose (Glutose) 22.5 gm Q15M PRN PO DECREASED GLUCOSE; Start 11/23/18 at 13:30 Dextrose (D50w Syringe) 25 ml Q15M PRN IV DECREASED GLUCOSE Last administered on 11/24/18at 05:07; Admin Dose 25 ML; Start 11/23/18 at 13:30 Dextrose (D50w Syringe) 50 ml Q15M PRN IV DECREASED GLUCOSE Last administered on 11/24/18at 01:42; Admin Dose 50 ML; Start 11/23/18 at 13:30 Glucagon (Glucagen) 1 mg Q15M PRN IM DECREASED GLUCOSE; Start 11/23/18 at 13:30 Glucose (Glutose) 15 gm Q15M PRN BUCCAL DECREASED GLUCOSE; Start 11/23/18 at 13:30 Famotidine (Pepcid Iv) 20 mg DAILY IV Last administered on 11/24/18at 08:08; Admin Dose 20 MG; Start 11/24/18 at 09:00 Propofol 100 ml @ 1.59 mls/hr Q12H IV Last administered on 11/24/18at 10:44; Admin Dose 1.59 MLS/HR; Start 11/24/18 at 00:00 Phenylephrine HCl 80 mg/Dextrose 250 ml @ 18.75 mls/ hr TITRATE IV ; Start 11/24/18 at 00:00 Midazolam HCl 50 ml @ 1 mls/hr TITRATE IV ; Start 11/24/18 at 00:00 Albumin Human 100 ml @ 100 mls/hr Q8H IV Last administered on 11/24/18at 08:09; Admin Dose 100 MLS/HR; Start 11/24/18 at 08:00; Stop 11/25/18 at 00:59 KELSIE ELY NP Nov 24, 2018 12:54
[2018-11-24] MEDS: CASPOFUNGIN 50 MG in SOD CHLORIDE 0.9% 250 ML IVPB SCH (13:07)
--- NOTE | 2018-11-24 14:48 | PN ---
Date/Time of Note Date/Time of Note DATE: 11/24/18 TIME: 14:41 Assessment/Plan VTE Prophylaxis Risk score (from Nsg)>0 risk: 11 SCD applied (from Nsg): Yes Pharmacological prophylaxis: heparin Lines/Catheters IV Catheter Type (from Nrsg): Central Line Central line still needed: Yes Urinary Cath still in place: No Assessment/Plan Hospital Course Intubated Follows commands, interacts Chronoically ill appearing Lungs clear Distended belly, firm masses Peripheral edema present 58 yo female with ESRD, cirrohsihs, DMII presents with hypoglycemia, leg infection. Suffered cardiac and respiratoyr arrest, now intubated Cardiac arrest, acute respiratory failure: - Continue vasopressors and mechanical ventilation per pulmonary - Goals of care discussions with family Severe hypoglycemia: No history of diabetes and patient not on any insulin or sulfonylurea or any other diabetic medication -This could be from decreased p.o. 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 Her son, which was found to have fungus in her wound for which she was given fluconazole. Will obtain records -ID consultation appreciated -Continue daptomycin, meropenem and fluconazole -Venous study was negative for DVT -Wound care consult 5. ESRD with fluid overload -Patient gets dialysis Friday -Nephrology consult appreciated, patient is fluid overloaded and will need dialysis -Blood pressure has been low and central line has been placed for pressors during dialysis -Patient not stable for thoracentesis at this time 6. Pancytopenia with coagulopathy: Patient had workup here during recent hospitalization. -Thrombocytopenia was thought to be secondary to HIT but may be related to liver disease -Per son, patient did receive platelet transfusion at [facility] -Picture of pancytopenia with macrocytic anemia and coagulopathy does appear consistent with liver disease, await liver ultrasound 7. Hypothyroidism: Continue Synthroid 8. History of hypertension -Blood pressure currently low 9. History of pacemaker: No acute issue 10. Ascites secondary to fluid overload and/or liver disease: Status post paracentesis 3 weeks ago with removal of 4.5 L -No need for emergent paracentesis, in addition patient's blood pressure is low 11. Chronic peritoneal dialysis: This is not being used. Not being removed because of the severe thrombocytopenia. This can be addressed at [facility] where she usually gets her care 12. Failure to thrive: Patient is very cachectic -Nutrition consult Prophylaxis: SCDs DC planning: Poor prognosis. Continue goals of care discussions Result Diagram: 11/24/18 0611 11/24/18 0611 Results 24hrs Laboratory Tests Test 11/23/18 14:46 11/23/18 16:10 11/23/18 17:20 11/23/18 21:02 Bedside Glucose 89 75 49 *L White Blood 9.3 Count Red Blood Count 3.31 L Hemoglobin 10.1 L Hematocrit 30.6 L Mean 92.4 Corpuscular Volume Mean 30.5 Corpuscular Hemoglobin Mean 33.0 Corpuscular Hemoglobin Conc ent Red Cell 21.1 H Distribution Width Platelet Count 13 #*L Mean Platelet Volume Immature 1.500 H Granulocytes % Neutrophils % Lymphocytes % Monocytes % Eosinophils % Basophils % Nucleated Red 0.0 Blood Cells % Immature 0.140 H Granulocytes # Neutrophils # Lymphocytes # Monocytes # Eosinophils # Basophils # Nucleated Red Blood Cells # Test 11/23/18 21:30 11/23/18 21:48 11/24/18 00:16 11/24/18 00:17 Bedside Glucose 157 115 White Blood 7.3 # Count Red Blood Count 2.96 L Hemoglobin 9.1 L Hematocrit 27.4 L Mean 92.6 Corpuscular Volume Mean 30.7 Corpuscular Hemoglobin Mean 33.2 Corpuscular Hemoglobin Conc ent Red Cell 20.7 H Distribution Width Platelet Count 18 #*L Mean Platelet 10.7 H Volume Immature 1.500 H Granulocytes % Neutrophils % Segmented 72 Neutrophils % (Manual) Band 14 H Neutrophils % (Manual) Lymphocytes % Lymphocytes % 8 L (Manual) Monocytes % Monocytes % 6 (Manual) Eosinophils % Basophils % Nucleated Red 0.0 Blood Cells % Immature 0.110 H Granulocytes # Neutrophils # Neutrophils # 5.3 (Manual) Band 1.0 H Neutrophils # Lymphocytes 0.5 L (Manual) Lymphocytes # Monocytes # Monocytes # 0.4 (Manual) Eosinophils # Basophils # Nucleated Red Blood Cells # Platelet SIG DECREASED Estimate Giant Platelets 1 H Polychromasia 1+ Poikilocytosis 3+ Anisocytosis 2+ Microcytosis 1+ Macrocytosis 1+ Lactic Acid 3.2 *H Level Sodium Level 131 L Potassium Level 4.1 Chloride Level 96 L Carbon Dioxide 20 L Level Anion Gap 15 H Blood Urea 26 H Nitrogen Creatinine 1.55 H Est Glomerular 34 L Filtrat Rate mL/min Glucose Level 46 #*L Calcium Level 8.4 Total Bilirubin 1.2 Direct 0.40 H Bilirubin Indirect 0.8 Bilirubin Aspartate Amino 21 Transf (AST/SGO T) Alanine 13 Aminotransferas e (ALT/SGPT) Alkaline 108 Phosphatase Total Protein 5.4 L Albumin 2.7 L Globulin 2.70 Albumin/Globuli 1.00 n Ratio Test 11/24/18 00:30 11/24/18 01:39 11/24/18 01:59 11/24/18 02:14 Blood Gas Blood arterial Specimen Source Arterial Blood 11/24/2018 1:10: Date Drawn 59 AM Arterial Blood 7.381 pH (Temp corrected ) Arterial Blood 38.0 pCO2 (Temp correct) Arterial Blood 236.3 H pO2 (Temp corrected ) Arterial Blood 22.0 HCO3 Arterial Blood -2.7 Base Excess Arterial Blood 99.3 H Oxygen Saturati on Morgan Test N/A Arterial Blood Right Radial Gas Puncture Site Arterial 0.3 Blood Carboxyhe moglobin Arterial Blood 0.2 Methemoglobin Blood Gas A-a 438.7 H O2 Differential Oxyhemoglobin 98.8 Percent Blood Gas 37.0 Temperature Blood Gas 20.0 Respiration Rate Blood Gas 20 Actual Respiration Rat e Blood Gas VENT - AC Modality FiO2 100.0 Blood Gas Tidal 450.0 Volume Blood Gas Low 5.0 PEEP Setting Blood Gas 46.0 Inspiratory Pressure Blood Gas S.H. Notified Whom Blood Gas 11/24/2018 1:17: Notified Time 01 AM Bedside Glucose 30 *L 146 134 Test 11/24/18 04:59 11/24/18 05:03 11/24/18 05:25 11/24/18 05:42 Lab Scanned BLOOD TRANSFUSI Report ON Bedside Glucose 68 L 127 100 Test 11/24/18 06:06 11/24/18 06:11 11/24/18 08:26 11/24/18 13:06 Hepatitis B NEGATIVE Surface Antigen White Blood 7.4 Count Red Blood Count 2.44 L Hemoglobin 7.5 L Hematocrit 22.2 L Mean 91.0 Corpuscular Volume Mean 30.7 Corpuscular Hemoglobin Mean 33.8 Corpuscular Hemoglobin Conc ent Red Cell 20.5 H Distribution Width Platelet Count 32 #L Mean Platelet 10.5 H Volume Immature 0.700 H Granulocytes % Neutrophils % Segmented 79 H Neutrophils % (Manual) Band 1 Neutrophils % (Manual) Lymphocytes % Lymphocytes % 10 L (Manual) Monocytes % Monocytes % 9 (Manual) Eosinophils % Eosinophils % 1 (Manual) Basophils % Nucleated Red 1 H Blood Cells % Immature 0.050 H Granulocytes # Neutrophils # Neutrophils # 5.8 (Manual) Band 0.0 Neutrophils # Lymphocytes 0.7 L (Manual) Lymphocytes # Monocytes # Monocytes # 0.6 (Manual) Eosinophils # Basophils # Nucleated Red Blood Cells # Platelet SIG DECREASED Estimate Giant Platelets 3 H Poikilocytosis 1+ Anisocytosis 2+ Macrocytosis 1+ Target Cells 1+ Sodium Level 130 L Potassium Level 4.0 Chloride Level 95 L Carbon Dioxide 21 Level Anion Gap 14 H Blood Urea 28 H Nitrogen Creatinine 1.57 H Est Glomerular 34 L Filtrat Rate mL/min Glucose Level 85 Lactic Acid 3.9 *H Level Calcium Level 8.2 L Phosphorus 3.9 Level Magnesium Level 1.7 Bedside Glucose 94 86 Subjective 24 Hr Interval Summary Free Text/Dictation Patient suffered cardiac arrest yesterday. ROSC achieved. Intutbated. On pressors now. Family at bedside are aware of grave state of illness Exam/Review of Systems Exam Vitals Vital Signs Date Temp Pulse Resp B/P (MAP) Pulse Ox O2 O2 Flow FiO2 Time Delivery Rate 11/24/18 67 12:00 11/24/18 97.4 20 90/55 (67) 100 Mechanical 12:00 Ventilator 11/24/18 50 11:40 11/23/18 3.0 23:00 Intake and Output 11/23/18 11/23/18 11/24/18 1515:00 23:00 07:00 IntakeIntake Total 896.591 ml 571.25 ml 433.72 ml OutputOutput Total 0 ml 0 ml 0 ml BalanceBalance 896.591 ml 571.25 ml 433.72 ml Results Results 24hrs Laboratory Tests Test 11/23/18 14:46 11/23/18 16:10 11/23/18 17:20 11/23/18 21:02 Bedside Glucose 89 75 49 *L White Blood 9.3 Count Red Blood Count 3.31 L Hemoglobin 10.1 L Hematocrit 30.6 L Mean 92.4 Corpuscular Volume Mean 30.5 Corpuscular Hemoglobin Mean 33.0 Corpuscular Hemoglobin Conc ent Red Cell 21.1 H Distribution Width Platelet Count 13 #*L Mean Platelet Volume Immature 1.500 H Granulocytes % Neutrophils % Lymphocytes % Monocytes % Eosinophils % Basophils % Nucleated Red 0.0 Blood Cells % Immature 0.140 H Granulocytes # Neutrophils # Lymphocytes # Monocytes # Eosinophils # Basophils # Nucleated Red Blood Cells # Test 11/23/18 21:30 11/23/18 21:48 11/24/18 00:16 11/24/18 00:17 Bedside Glucose 157 115 White Blood 7.3 # Count Red Blood Count 2.96 L Hemoglobin 9.1 L Hematocrit 27.4 L Mean 92.6 Corpuscular Volume Mean 30.7 Corpuscular Hemoglobin Mean 33.2 Corpuscular Hemoglobin Conc ent Red Cell 20.7 H Distribution Width Platelet Count 18 #*L Mean Platelet 10.7 H Volume Immature 1.500 H Granulocytes % Neutrophils % Segmented 72 Neutrophils % (Manual) Band 14 H Neutrophils % (Manual) Lymphocytes % Lymphocytes % 8 L (Manual) Monocytes % Monocytes % 6 (Manual) Eosinophils % Basophils % Nucleated Red 0.0 Blood Cells % Immature 0.110 H Granulocytes # Neutrophils # Neutrophils # 5.3 (Manual) Band 1.0 H Neutrophils # Lymphocytes 0.5 L (Manual) Lymphocytes # Monocytes # Monocytes # 0.4 (Manual) Eosinophils # Basophils # Nucleated Red Blood Cells # Platelet SIG DECREASED Estimate Giant Platelets 1 H Polychromasia 1+ Poikilocytosis 3+ Anisocytosis 2+ Microcytosis 1+ Macrocytosis 1+ Lactic Acid 3.2 *H Level Sodium Level 131 L Potassium Level 4.1 Chloride Level 96 L Carbon Dioxide 20 L Level Anion Gap 15 H Blood Urea 26 H Nitrogen Creatinine 1.55 H Est Glomerular 34 L Filtrat Rate mL/min Glucose Level 46 #*L Calcium Level 8.4 Total Bilirubin 1.2 Direct 0.40 H Bilirubin Indirect 0.8 Bilirubin Aspartate Amino 21 Transf (AST/SGO T) Alanine 13 Aminotransferas e (ALT/SGPT) Alkaline 108 Phosphatase Total Protein 5.4 L Albumin 2.7 L Globulin 2.70 Albumin/Globuli 1.00 n Ratio Test 11/24/18 00:30 11/24/18 01:39 11/24/18 01:59 11/24/18 02:14 Blood Gas Blood arterial Specimen Source Arterial Blood 11/24/2018 1:10: Date Drawn 59 AM Arterial Blood 7.381 pH (Temp corrected ) Arterial Blood 38.0 pCO2 (Temp correct) Arterial Blood 236.3 H pO2 (Temp corrected ) Arterial Blood 22.0 HCO3 Arterial Blood -2.7 Base Excess Arterial Blood 99.3 H Oxygen Saturati on Morgan Test N/A Arterial Blood Right Radial Gas Puncture Site Arterial 0.3 Blood Carboxyhe moglobin Arterial Blood 0.2 Methemoglobin Blood Gas A-a 438.7 H O2 Differential Oxyhemoglobin 98.8 Percent Blood Gas 37.0 Temperature Blood Gas 20.0 Respiration Rate Blood Gas 20 Actual Respiration Rat e Blood Gas VENT - AC Modality FiO2 100.0 Blood Gas Tidal 450.0 Volume Blood Gas Low 5.0 PEEP Setting Blood Gas 46.0 Inspiratory Pressure Blood Gas S.H. Notified Whom Blood Gas 11/24/2018 1:17: Notified Time 01 AM Bedside Glucose 30 *L 146 134 Test 11/24/18 04:59 11/24/18 05:03 11/24/18 05:25 11/24/18 05:42 Lab Scanned BLOOD TRANSFUSI Report ON Bedside Glucose 68 L 127 100 Test 11/24/18 06:06 11/24/18 06:11 11/24/18 08:26 11/24/18 13:06 Hepatitis B NEGATIVE Surface Antigen White Blood 7.4 Count Red Blood Count 2.44 L Hemoglobin 7.5 L Hematocrit 22.2 L Mean 91.0 Corpuscular Volume Mean 30.7 Corpuscular Hemoglobin Mean 33.8 Corpuscular Hemoglobin Conc ent Red Cell 20.5 H Distribution Width Platelet Count 32 #L Mean Platelet 10.5 H Volume Immature 0.700 H Granulocytes % Neutrophils % Segmented 79 H Neutrophils % (Manual) Band 1 Neutrophils % (Manual) Lymphocytes % Lymphocytes % 10 L (Manual) Monocytes % Monocytes % 9 (Manual) Eosinophils % Eosinophils % 1 (Manual) Basophils % Nucleated Red 1 H Blood Cells % Immature 0.050 H Granulocytes # Neutrophils # Neutrophils # 5.8 (Manual) Band 0.0 Neutrophils # Lymphocytes 0.7 L (Manual) Lymphocytes # Monocytes # Monocytes # 0.6 (Manual) Eosinophils # Basophils # Nucleated Red Blood Cells # Platelet SIG DECREASED Estimate Giant Platelets 3 H Poikilocytosis 1+ Anisocytosis 2+ Macrocytosis 1+ Target Cells 1+ Sodium Level 130 L Potassium Level 4.0 Chloride Level 95 L Carbon Dioxide 21 Level Anion Gap 14 H Blood Urea 28 H Nitrogen Creatinine 1.57 H Est Glomerular 34 L Filtrat Rate mL/min Glucose Level 85 Lactic Acid 3.9 *H Level Calcium Level 8.2 L Phosphorus 3.9 Level Magnesium Level 1.7 Bedside Glucose 94 86 Medications Medication Current Medications Ondansetron HCl (Zofran Inj) 4 mg Q6H PRN IV NAUSEA AND/OR VOMITING Last administered on 11/21/18 16:50; Admin Dose 4 MG; Start 11/21/18 at 05:30 Albuterol/ Ipratropium (Duoneb) 3 ml Q2H RESP THERAPY PRN NEB SHORTNESS OF BREATH; Start 11/21/18 at 05:30 Acetaminophen (Tylenol Liquid) 650 mg Q6H PRN PO PAIN LEVEL 1-3 OR FEVER; Start 11/21/18 at 05:30 Amiodarone HCl (Cordarone) 200 mg BID PO Last administered on 11/24/18 08:08; Admin Dose 200 MG; Start 11/21/18 at 09:00 Folic Acid (Folic Acid) 1 mg DAILY PO Last administered on 11/24/18 08:07; Admin Dose 1 MG; Start 11/21/18 at 09:00 Levothyroxine Sodium (Synthroid) 75 mcg BEFORE BREAKFAST PO Last administered on 11/21/18 09:43; Admin Dose 75 MCG; Start 11/21/18 at 07:00 Dextrose 1,000 ml @ 75 mls/hr [id number] IV Last administered on 11/24/18 10:44; Admin Dose 75 MLS/HR; Start 11/21/18 at 06:00 Meropenem/Sodium Chloride 50 ml @ 100 mls/hr Q12 IVPB Last administered on 11/24/18 08:08; Admin Dose 100 MLS/HR; Start 11/21/18 at 21:00 Daptomycin 320 mg/ Sodium Chloride 100 ml @ 200 mls/hr Q48H IVPB Last administered on 11/23/18 16:13; Admin Dose 200 MLS/HR; Start 11/21/18 at 16:00 Norepinephrine 250 ml @ 1.875 mls/ hr TITRATE IV Last administered on 4/16/19at 06:39; Admin Dose 11.25 MLS/HR; Start 11/21/18 at 19:00 Diagnostic Test (Pha) (Accu-Chek) 1 ea Q4 XX Last administered on 11/24/18at 13:07; Admin Dose 1 EA; Start 11/22/18 at 21:00 Caspofungin 50 mg/ Sodium Chloride 250 ml @ 250 mls/hr Q24H IVPB Last administered on 11/24/18at 13:07; Admin Dose 250 MLS/HR; Start 11/24/18 at 13:00 Miscellaneous Information 1 ea NOTE XX ; Start 11/23/18 at 13:30 Glucose (Glutose) 15 gm Q15M PRN PO DECREASED GLUCOSE; Start 11/23/18 at 13:30 Glucose (Glutose) 22.5 gm Q15M PRN PO DECREASED GLUCOSE; Start 11/23/18 at 13:30 Dextrose (D50w Syringe) 25 ml Q15M PRN IV DECREASED GLUCOSE Last administered on 11/24/18at 05:07; Admin Dose 25 ML; Start 11/23/18 at 13:30 Dextrose (D50w Syringe) 50 ml Q15M PRN IV DECREASED GLUCOSE Last administered on 11/24/18at 01:42; Admin Dose 50 ML; Start 11/23/18 at 13:30 Glucagon (Glucagen) 1 mg Q15M PRN IM DECREASED GLUCOSE; Start 11/23/18 at 13:30 Glucose (Glutose) 15 gm Q15M PRN BUCCAL DECREASED GLUCOSE; Start 11/23/18 at 13:30 Famotidine (Pepcid Iv) 20 mg DAILY IV Last administered on 11/24/18at 08:08; Admin Dose 20 MG; Start 11/24/18 at 09:00 Propofol 100 ml @ 1.59 mls/hr Q12H IV Last administered on 11/24/18at 10:44; Admin Dose 1.59 MLS/HR; Start 11/24/18 at 00:00 Phenylephrine HCl 80 mg/Dextrose 250 ml @ 18.75 mls/ hr TITRATE IV ; Start 11/24/18 at 00:00 Midazolam HCl 50 ml @ 1 mls/hr TITRATE IV ; Start 11/24/18 at 00:00 Albumin Human 100 ml @ 100 mls/hr Q8H IV Last administered on 11/24/18at 08:09; Admin Dose 100 MLS/HR; Start 11/24/18 at 08:00; Stop 11/25/18 at 00:59 JOSLYN LANDRUM MD Nov 24, 2018 14:48
[2018-11-24] MEDS: HEPARIN 1000 UNITS/ML 10 ML INJ CATHETER SCH (17:57)
[2018-11-25] VITALS (99 sets, daily range): BP systolic 52–154; BP diastolic 37–89; PULSE 55–89; RESP 0–23
[2018-11-25] MEDS: DEXTROSE 10% 1,000 ML IV SCH ×2 (00:14→17:10)
[2018-11-25] MEDS: ALBUMIN HUMAN 25% 100 ML IV SCH (00:18)
[2018-11-25] MEDS: ACCU-CHEK XX SCH ×6 (01:12→21:06)
[2018-11-25] MEDS: PROPOFOL 100 ML IV SCH ×2 (05:32)
[2018-11-25] MEDS: LEVOTHYROXINE 75 MCG TAB PO SCH (07:05)
[2018-11-25] MEDS: NORepinephrine 8MG/250 ML (PMX 250 ML IV SCH (07:26)
--- NOTE | 2018-11-25 07:55 | PN ---
DATE: 11/25/2018 SUBJECTIVE: The patient remains critically ill on full ventilatory support, on pressor support. The patient had hemodialysis yesterday approximately 1 liter removed. No other events noted. OBJECTIVE: VITAL SIGNS: Blood pressure is 109/65, respirations 20, pulse is 60, temperature 98.6. HEENT: Head is normocephalic. NECK: Supple. HEART: Regular rate. LUNGS: Show diminished breath sounds at the base. ABDOMEN: Soft, distended. Positive PD catheter. EXTREMITIES: Negative for clubbing, cyanosis. Diffuse anasarca. DERMATOLOGIC: No rashes. MUSCULOSKELETAL: No joint effusion. NEUROLOGIC: No change in exam. MEDICATIONS: The patient's medications have been reviewed. LABORATORY DATA: Shows sodium 134, potassium 3.6, BUN 21, creatinine 1.14, calcium 8.1, phosphorus 2 .2. The patient's CBC is pending. IMAGING STUDY: Chest x-ray from 11/23/2018 was reviewed. ASSESSMENT AND PLAN: 1. End-stage renal disease. The patient's access is Perm-A-Cath. The patient had hemodialysis yest erday, tolerated well. Anticipate hemodialysis tomorrow. 2. Volume overload with diffuse anasarca, etiology is secondary to end-stage renal disease, capillar y leak. Continue ultrafiltration with hemodialysis if hemodynamically stable. 3. Septic shock, etiology is secondary to pneumonia, bacteremia. Underlying source is unclear, poss ibly infected left femoral graft and questionable line sepsis. The patient's cultures have been revi ewed. Continue current medical management. Continue pressor support. Continue broad spectrum antib iotics. We will follow up with infectious disease recommendations. Repeat blood cultures have been negative. 4. Anemia. Continue to monitor hemoglobin and hematocrit levels. Continue Epogen as needed. 5. Hyponatremia. Continue dialysis on 140 sodium bath. 6. Hypokalemia. Continue to monitor and replete. 7. Mineral bone disorder. Continue to monitor calcium and phosphorus levels. 8. Ventilator-dependent respiratory failure. Vent settings and ABG was reviewed. Continue to monit or. Follow up with pulmonary. 9. Acute encephalopathy, etiology is toxic metabolic. 10. 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 Continue to monitor. 11. Ascites. Continue to monitor. Consider paracentesis. 12. Hypothyroidism. Continue Synthroid. 13. Lactic acidosis secondary to shock. Continue to monitor. Continue current treatment plan. Please note, I spent over 30 minutes of critical care time with this patient. Dictated By: SARIKA JOINER DO NR/NTS Conf#: [id number] DID#: [id number] CC: LORRAINE JOHNSON MD; JOSLYN LANDRUM MD; MANDY BATES MD;*End*
[2018-11-25] MEDS: MEROPENEM 500MG/50 ML (PMX) 50 ML IVPB SCH ×2 (09:01→20:54)
[2018-11-25] MEDS: NEUTRA-PHOS 250 MG PACKET GTB SCH ×2 (09:01→20:54)
[2018-11-25] MEDS: AMIODARONE 200 MG TAB PO SCH ×2 (09:02→20:54)
[2018-11-25] MEDS: FOLIC ACID 1 MG TAB PO SCH (09:02)
[2018-11-25] MEDS: BALSAM PERU/CASTOR OIL 60 GM TUBE TOP SCH ×2 (09:03→20:55)
[2018-11-25] MEDS ORDERED: SOD CHLORIDE 0.9% 250 ML IV* ONE (09:15)
[2018-11-25] MEDS: FAMOTIDINE 20 MG INJ IV SCH (09:23)
[2018-11-25] MEDS ORDERED: LIDOCAINE 1% (MPF) 5 ML VIAL SC ONE (09:30)
--- NOTE | 2018-11-25 11:18 | CONS ---
Consult Date/Type/Reason Admit Date/Time Nov 21, 2018 at 04:53 Initial Consult Date Type of Consult Pulmonary Date/Time of Note DATE: 11/25/18 TIME: 11:16 Subjective Patient remained stable this morning still lethargic on mechanical ventilation. Continues Levophed. Objective Vital Signs Date Temp Pulse Resp B/P (MAP) Pulse Ox O2 O2 Flow FiO2 Time Delivery Rate 11/25/18 64 20 126/65 100 Mechanical 10:45 (85) Ventilator 11/25/18 98.0 10:00 11/25/18 40 09:20 11/23/18 3.0 23:00 Intake and Output 11/24/18 11/24/18 11/25/18 1515:00 23:00 07:00 IntakeIntake Total 588.97 ml 975.975 ml 952.555 ml OutputOutput Total 0 ml 1400 ml BalanceBalance 588.97 ml -424.025 ml 952.555 ml Exam GENERAL: Thin cachectic lady on mechanical ventilation VITAL SIGNS: per chart NECK: Supple. No JVD or lymphadenopathy. CARDIAC EXAM: S1, S2. No added sounds or murmurs. CHEST: Diminished air entry bilaterally ABDOMEN: Soft, nontender. No guarding or rebound. EXTREMITIES: No cyanosis, clubbing or edema. NEUROLOGIC: Generalized weakness. Vent Setting Ventilator Support Mode: AC Fraction of Inspired Oxygen pe: 40 Positive End Expiratory Pressu: 5.0 Results/Medications Result Diagram: 11/25/18 0648 11/25/18 0501 Results 24 hrs Laboratory Tests Test 11/24/18 13:06 11/24/18 16:20 11/24/18 20:37 11/25/18 01:11 Bedside Glucose 86 93 107 122 Test 11/25/18 05:01 11/25/18 05:37 11/25/18 06:48 11/25/18 09:05 Sodium Level 134 L Potassium Level 3.6 Chloride Level 98 Carbon Dioxide 24 Level Anion Gap 12 Blood Urea 21 H Nitrogen Creatinine 1.14 H Est Glomerular 49 L Filtrat Rate mL/min Glucose Level 110 Calcium Level 8.1 L Phosphorus Level 2.2 #L Magnesium Level 1.8 Bedside Glucose 129 86 White Blood Count 6.0 Red Blood Count 2.43 L Hemoglobin 7.6 L Hematocrit 21.8 L Mean Corpuscular 89.7 Volume Mean Corpuscular 31.3 Hemoglobin Mean Corpuscular 34.9 Hemoglobin Concent Red Cell 19.6 H Distribution Width Platelet Count 9 #*L Mean Platelet 9.6 Volume Immature 1.000 H Granulocytes % Neutrophils % Segmented 63 Neutrophils % (Manual) Band Neutrophils % 13 H (Manual) Lymphocytes % Lymphocytes % 18 (Manual) Monocytes % Monocytes % 6 (Manual) Eosinophils % Basophils % Nucleated Red 0.0 Blood Cells % Immature 0.060 H Granulocytes # Neutrophils # Neutrophils # 3.8 (Manual) Band Neutrophils # 0.7 H Lymphocytes 1.0 (Manual) Lymphocytes # Monocytes # Monocytes # 0.3 (Manual) Eosinophils # Basophils # Nucleated Red Blood Cells # Platelet Estimate SIG DECREASED Poikilocytosis 3+ Anisocytosis 2+ Macrocytosis 1+ Medications Current Medications Ondansetron HCl (Zofran Inj) 4 mg Q6H PRN IV NAUSEA AND/OR VOMITING Last administered on 11/21/18 16:50; Admin Dose 4 MG; Start 11/21/18 at 05:30 Albuterol/ Ipratropium (Duoneb) 3 ml Q2H RESP THERAPY PRN NEB SHORTNESS OF BREATH; Start 11/21/18 at 05:30 Acetaminophen (Tylenol Liquid) 650 mg Q6H PRN PO PAIN LEVEL 1-3 OR FEVER; Start 11/21/18 at 05:30 Amiodarone HCl (Cordarone) 200 mg BID PO Last administered on 11/25/18 09:02; Admin Dose 200 MG; Start 11/21/18 at 09:00 Folic Acid (Folic Acid) 1 mg DAILY PO Last administered on 11/25/18 09:02; Admin Dose 1 MG; Start 11/21/18 at 09:00 Levothyroxine Sodium (Synthroid) 75 mcg BEFORE BREAKFAST PO Last administered on 11/25/18 07:05; Admin Dose 75 MCG; Start 11/21/18 at 07:00 Meropenem/Sodium Chloride 50 ml @ 100 mls/hr Q12 IVPB Last administered on 11/25/18 09:01; Admin Dose 100 MLS/HR; Start 11/21/18 at 21:00 Daptomycin 320 mg/ Sodium Chloride 100 ml @ 200 mls/hr Q48H IVPB Last administered on 11/23/18 16:13; Admin Dose 200 MLS/HR; Start 11/21/18 at 16:00 Norepinephrine 250 ml @ 1.875 mls/ hr TITRATE IV Last administered on 11/25/18at 07:26; Admin Dose 7.5 MLS/HR; Start 11/21/18 at 19:00 Diagnostic Test (Pha) (Accu-Chek) 1 ea Q4 XX Last administered on 11/25/18at 09:06; Admin Dose 1 EA; Start 11/22/18 at 21:00 Caspofungin 50 mg/ Sodium Chloride 250 ml @ 250 mls/hr Q24H IVPB Last administered on 11/24/18at 13:07; Admin Dose 250 MLS/HR; Start 11/24/18 at 13:00 Miscellaneous Information 1 ea NOTE XX ; Start 11/23/18 at 13:30 Glucose (Glutose) 15 gm Q15M PRN PO DECREASED GLUCOSE; Start 11/23/18 at 13:30 Glucose (Glutose) 22.5 gm Q15M PRN PO DECREASED GLUCOSE; Start 11/23/18 at 13:30 Dextrose (D50w Syringe) 25 ml Q15M PRN IV DECREASED GLUCOSE Last administered on 11/24/18at 05:07; Admin Dose 25 ML; Start 11/23/18 at 13:30 Dextrose (D50w Syringe) 50 ml Q15M PRN IV DECREASED GLUCOSE Last administered on 11/24/18at 01:42; Admin Dose 50 ML; Start 11/23/18 at 13:30 Glucagon (Glucagen) 1 mg Q15M PRN IM DECREASED GLUCOSE; Start 11/23/18 at 13:30 Glucose (Glutose) 15 gm Q15M PRN BUCCAL DECREASED GLUCOSE; Start 11/23/18 at 13:30 Famotidine (Pepcid Iv) 20 mg DAILY IV Last administered on 11/25/18at 09:23; Admin Dose 20 MG; Start 11/24/18 at 09:00 Propofol 100 ml @ 1.59 mls/hr Q12H IV Last administered on 11/25/18at 05:32; Admin Dose 3.18 MLS/HR; Start 11/24/18 at 00:00 Phenylephrine HCl 80 mg/Dextrose 250 ml @ 18.75 mls/ hr TITRATE IV ; Start 11/24/18 at 00:00 Midazolam HCl 50 ml @ 1 mls/hr TITRATE IV ; Start 11/24/18 at 00:00 Heparin Sodium (Porcine) (Heparin (1000 Units/ml)) 6,300 unit AFTER DIALYSIS CATHETER Last administered on 11/24/18at 17:57; Admin Dose 6,300 UNIT; Start 11/24/18 at 17:30 Sodium Phosphate (Neutra-Phos) 250 mg BID GTB Last administered on 11/25/18at 09:01; Admin Dose 250 MG; Start 11/25/18 at 09:00 Assessment/Plan Hospital Course (Demo Recall) Assessment 1. Septic shock likely secondary to pneumonia 2. Acute hypoxemic respiratory failure 3. History of cardiomyopathy 4. Severe thrombocytopenia with anemia no active GI bleeding 5. End-stage renal failure on hemodialysis Plan 1. Transfuse packed red blood cells 2. Titrate pressors to keep map greater than 65 3. Transfusion platelets 4. Tube feeding as tolerated 5. Hemodialysis as tolerated Long discussion with family at bedside. They understand she has a very poor prognosis but wish to continue all aggressive measures Critical care time 40 minutes. NINA MORRIS MD, [facility] Nov 25, 2018 11:18
[2018-11-25] MEDS: CASPOFUNGIN 50 MG in SOD CHLORIDE 0.9% 250 ML IVPB SCH (12:57)
--- NOTE | 2018-11-25 14:30 | CONS ---
Assessment/Plan Assessment/Plan Hospital Course (Demo Recall) Remains intubated on pressors in no distress. Hypothermic with a temperature of 97.3, no fevers WBC 6 H&H 7.6 and 21.8 platelets 9 BUN 21 creatinine 1.14 Microbiology: Blood culture on admission grew Klebsiella ESBL, repeat blood cultures negative, left thigh wound culture grew Klebsiella ESBL and Leah albicans Chest x-ray revealed increased in patchy infiltrates throughout both lungs with potential small pleural effusions Antimicrobials: Meropenem, Cancidas, daptomycin Allergy: Zosyn, vancomycin Indwelling: Right upper thigh Davie catheter, left femoral triple-lumen catheter, endotracheal tube, orogastric tube, midline Physical examination: This is a chronically ill-appearing cachectic middle-aged woman who is laying comfortably in bed. Head atraumatic normocephalic. Neck is supple. Chest rise symmetrical. Breath sounds diminished bases. Heart: S1-S2. Abdomen distended, soft. Bowel sounds present. Extremities with bilateral edema, cyanotic, multiple ecchymotic areas and bruises, left upper thigh dressing intact, some drainage present on the lateral side of the dressing Assessment: 1. Severe sepsis with shock 2. Acute hypoxemic respiratory failure secondary to CHF exacerbation and possible pneumonia 3. Klebsiella ESBL bacteremia 4. 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 End-stage renal disease, hemodialysis dependent 6. Atrial fibrillation status post permanent pacemaker 7. Unstageable sacral decubitus 8. History of peritoneal dialysis with peritoneal dialysis still in place 9. Ascites status post paracentesis 3 weeks ago 10. Failure to thrive 11. Progressive thrombocytopenia Plan: Remains unchanged, hemodynamically unstable, repeat blood cultures negative, will send sputum culture, consider platelet transfusion, prognosis very poor Consultation Date/Type/Reason Admit Date/Time Nov 21, 2018 at 04:53 Initial Consult Date Type of Consult id Date/Time of Note DATE: 11/25/18 TIME: 14:27 Exam/Review of Systems Exam Vitals Vital Signs Date Temp Pulse Resp B/P (MAP) Pulse Ox O2 O2 Flow FiO2 Time Delivery Rate 11/25/18 61 20 131/53 100 13:00 (79) 11/25/18 97.3 12:00 11/25/18 Mechanical 10:45 Ventilator 11/25/18 40 09:20 11/23/18 3.0 23:00 Intake and Output 11/24/18 11/24/18 11/25/18 1515:00 23:00 07:00 IntakeIntake Total 588.97 ml 975.975 ml 952.555 ml OutputOutput Total 0 ml 1400 ml BalanceBalance 588.97 ml -424.025 ml 952.555 ml Results Result Diagram: 11/25/18 0648 11/25/18 0501 Results 24hrs Laboratory Tests Test 11/24/18 16:20 11/24/18 20:37 11/25/18 01:11 11/25/18 05:01 Bedside Glucose 93 107 122 Sodium Level 134 L Potassium Level 3.6 Chloride Level 98 Carbon Dioxide 24 Level Anion Gap 12 Blood Urea 21 H Nitrogen Creatinine 1.14 H Est Glomerular 49 L Filtrat Rate mL/min Glucose Level 110 Calcium Level 8.1 L Phosphorus Level 2.2 #L Magnesium Level 1.8 Test 11/25/18 05:37 11/25/18 06:48 11/25/18 09:05 11/25/18 12:38 Bedside Glucose 129 86 80 White Blood Count 6.0 Red Blood Count 2.43 L Hemoglobin 7.6 L Hematocrit 21.8 L Mean Corpuscular 89.7 Volume Mean Corpuscular 31.3 Hemoglobin Mean Corpuscular 34.9 Hemoglobin Concent Red Cell 19.6 H Distribution Width Platelet Count 9 #*L Mean Platelet 9.6 Volume Immature 1.000 H Granulocytes % Neutrophils % Segmented 63 Neutrophils % (Manual) Band Neutrophils % 13 H (Manual) Lymphocytes % Lymphocytes % 18 (Manual) Monocytes % Monocytes % 6 (Manual) Eosinophils % Basophils % Nucleated Red 0.0 Blood Cells % Immature 0.060 H Granulocytes # Neutrophils # Neutrophils # 3.8 (Manual) Band Neutrophils # 0.7 H Lymphocytes 1.0 (Manual) Lymphocytes # Monocytes # Monocytes # 0.3 (Manual) Eosinophils # Basophils # Nucleated Red Blood Cells # Platelet Estimate SIG DECREASED Poikilocytosis 3+ Anisocytosis 2+ Macrocytosis 1+ Medications Medication Current Medications Ondansetron HCl (Zofran Inj) 4 mg Q6H PRN IV NAUSEA AND/OR VOMITING Last administered on 11/21/18at 16:50; Admin Dose 4 MG; Start 11/21/18 at 05:30 Albuterol/ Ipratropium (Duoneb) 3 ml Q2H RESP THERAPY PRN NEB SHORTNESS OF BREATH; Start 11/21/18 at 05:30 Acetaminophen (Tylenol Liquid) 650 mg Q6H PRN PO PAIN LEVEL 1-3 OR FEVER; Start 11/21/18 at 05:30 Amiodarone HCl (Cordarone) 200 mg BID PO Last administered on 11/25/18 09:02; Admin Dose 200 MG; Start 11/21/18 at 09:00 Folic Acid (Folic Acid) 1 mg DAILY PO Last administered on 11/25/18 09:02; Admin Dose 1 MG; Start 11/21/18 at 09:00 Levothyroxine Sodium (Synthroid) 75 mcg BEFORE BREAKFAST PO Last administered on 11/25/18 07:05; Admin Dose 75 MCG; Start 11/21/18 at 07:00 Meropenem/Sodium Chloride 50 ml @ 100 mls/hr Q12 IVPB Last administered on 11/25/18 09:01; Admin Dose 100 MLS/HR; Start 11/21/18 at 21:00 Daptomycin 320 mg/ Sodium Chloride 100 ml @ 200 mls/hr Q48H IVPB Last administered on 11/23/18 16:13; Admin Dose 200 MLS/HR; Start 11/21/18 at 16:00 Norepinephrine 250 ml @ 1.875 mls/ hr TITRATE IV Last administered on 11/25/18at 07:26; Admin Dose 7.5 MLS/HR; Start 11/21/18 at 19:00 Diagnostic Test (Pha) (Accu-Chek) 1 ea Q4 XX Last administered on 11/25/18at 13:21; Admin Dose 1 EA; Start 11/22/18 at 21:00 Caspofungin 50 mg/ Sodium Chloride 250 ml @ 250 mls/hr Q24H IVPB Last administered on 11/25/18at 12:57; Admin Dose 250 MLS/HR; Start 11/24/18 at 13:00 Miscellaneous Information 1 ea NOTE XX ; Start 11/23/18 at 13:30 Glucose (Glutose) 15 gm Q15M PRN PO DECREASED GLUCOSE; Start 11/23/18 at 13:30 Glucose (Glutose) 22.5 gm Q15M PRN PO DECREASED GLUCOSE; Start 11/23/18 at 13:30 Dextrose (D50w Syringe) 25 ml Q15M PRN IV DECREASED GLUCOSE Last administered on 11/24/18at 05:07; Admin Dose 25 ML; Start 11/23/18 at 13:30 Dextrose (D50w Syringe) 50 ml Q15M PRN IV DECREASED GLUCOSE Last administered on 11/24/18at 01:42; Admin Dose 50 ML; Start 11/23/18 at 13:30 Glucagon (Glucagen) 1 mg Q15M PRN IM DECREASED GLUCOSE; Start 11/23/18 at 13:30 Glucose (Glutose) 15 gm Q15M PRN BUCCAL DECREASED GLUCOSE; Start 11/23/18 at 13:30 Famotidine (Pepcid Iv) 20 mg DAILY IV Last administered on 11/25/18at 09:23; Admin Dose 20 MG; Start 11/24/18 at 09:00 Propofol 100 ml @ 1.59 mls/hr Q12H IV Last administered on 11/25/18at 05:32; Admin Dose 3.18 MLS/HR; Start 11/24/18 at 00:00 Phenylephrine HCl 80 mg/Dextrose 250 ml @ 18.75 mls/ hr TITRATE IV ; Start 11/24/18 at 00:00 Midazolam HCl 50 ml @ 1 mls/hr TITRATE IV ; Start 11/24/18 at 00:00 Heparin Sodium (Porcine) (Heparin (1000 Units/ml)) 6,300 unit AFTER DIALYSIS CATHETER Last administered on 11/24/18at 17:57; Admin Dose 6,300 UNIT; Start 11/24/18 at 17:30 Sodium Phosphate (Neutra-Phos) 250 mg BID GTB Last administered on 11/25/18at 09:01; Admin Dose 250 MG; Start 11/25/18 at 09:00 KELSIE ELY NP Nov 25, 2018 14:30
--- NOTE | 2018-11-25 15:56 | PN ---
Date/Time of Note Date/Time of Note DATE: 11/25/18 TIME: 15:55 Assessment/Plan VTE Prophylaxis Risk score (from Nsg)>0 risk: 6 SCD applied (from Nsg): Yes Pharmacological prophylaxis: heparin Lines/Catheters IV Catheter Type (from Nrsg): Central Line Central line still needed: Yes Urinary Cath still in place: No Assessment/Plan Hospital Course Intubated sedated Chronically ill appearing Lungs clear Distended belly, firm masses Peripheral edema present LUE wound wrapped 58 yo female with ESRD, cirrohsihs, DMII presents with hypoglycemia, leg infection. Suffered cardiac and respiratory arrest, now intubated Cardiac arrest, acute respiratory failure: - Continue vasopressors and mechanical ventilation per pulmonary - Goals of care discussions with family Severe hypoglycemia: No history of diabetes and patient not on any insulin or sulfonylurea or any other diabetic medication -This could be from decreased p.o. intake and liver dysfunction from CHO -Ultrasound of the liver to evaluate for cirrhosis and/or fatty liver -Hypoglycemic protocol Left lower extremity wound and pitting edema: Patient had a graft in that leg, which was infected -She was admitted for 2 weeks at [facility], where she had procedure. Her son, which was found to have fungus in her wound for which she was given fluconazole. Will obtain records -ID consultation appreciated -Continue daptomycin, meropenem and fluconazole -Venous study was negative for DVT -Wound care consult 5. ESRD with fluid overload -Patient gets dialysis Friday -Nephrology consult appreciated, patient is fluid overloaded and will need dialysis -Blood pressure has been low and central line has been placed for pressors during dialysis -Patient not stable for thoracentesis at this time 6. Pancytopenia with coagulopathy: Patient had workup here during recent hospitalization. -Thrombocytopenia was thought to be secondary to HIT but may be related to liver disease -Per son, patient did receive platelet transfusion at [facility] -Picture of pancytopenia with macrocytic anemia and coagulopathy does appear consistent with liver disease, await liver ultrasound 7. Hypothyroidism: Continue Synthroid 8. History of hypertension -Blood pressure currently low 9. History of pacemaker: No acute issue 10. Ascites secondary to fluid overload and/or liver disease: Status post paracentesis 3 weeks ago with removal of 4.5 L -No need for emergent paracentesis, in addition patient's blood pressure is low 11. Chronic peritoneal dialysis: This is not being used. Not being removed because of the severe thrombocytopenia. This can be addressed at [facility] where she usually gets her care 12. Failure to thrive: Patient is very cachectic -Nutrition consult Prophylaxis: SCDs DC planning: Poor prognosis. Continue goals of care discussions with family. So far unwilling to consider withdrawal of care Result Diagram: 11/25/18 0648 11/25/18 0501 Results 24hrs Laboratory Tests Test 11/24/18 16:20 11/24/18 20:37 11/25/18 01:11 11/25/18 05:01 Bedside Glucose 93 107 122 Sodium Level 134 L Potassium Level 3.6 Chloride Level 98 Carbon Dioxide 24 Level Anion Gap 12 Blood Urea 21 H Nitrogen Creatinine 1.14 H Est Glomerular 49 L Filtrat Rate mL/min Glucose Level 110 Calcium Level 8.1 L Phosphorus Level 2.2 #L Magnesium Level 1.8 Test 11/25/18 05:37 11/25/18 06:48 11/25/18 09:05 11/25/18 12:38 Bedside Glucose 129 86 80 White Blood Count 6.0 Red Blood Count 2.43 L Hemoglobin 7.6 L Hematocrit 21.8 L Mean Corpuscular 89.7 Volume Mean Corpuscular 31.3 Hemoglobin Mean Corpuscular 34.9 Hemoglobin Concent Red Cell 19.6 H Distribution Width Platelet Count 9 #*L Mean Platelet 9.6 Volume Immature 1.000 H Granulocytes % Neutrophils % Segmented 63 Neutrophils % (Manual) Band Neutrophils % 13 H (Manual) Lymphocytes % Lymphocytes % 18 (Manual) Monocytes % Monocytes % 6 (Manual) Eosinophils % Basophils % Nucleated Red 0.0 Blood Cells % Immature 0.060 H Granulocytes # Neutrophils # Neutrophils # 3.8 (Manual) Band Neutrophils # 0.7 H Lymphocytes 1.0 (Manual) Lymphocytes # Monocytes # Monocytes # 0.3 (Manual) Eosinophils # Basophils # Nucleated Red Blood Cells # Platelet Estimate SIG DECREASED Poikilocytosis 3+ Anisocytosis 2+ Macrocytosis 1+ Subjective 24 Hr Interval Summary Free Text/Dictation Still intubated on vasopressors I discussed dismal prognosis with and children. They are not willing to consider withdrawal of care. Want everything done Exam/Review of Systems Exam Vitals Vital Signs Date Temp Pulse Resp B/P (MAP) Pulse Ox O2 O2 Flow FiO2 Time Delivery Rate 11/25/18 60 20 100 40 13:30 11/25/18 131/53 13:00 (79) 11/25/18 97.3 12:00 11/25/18 Mechanical 10:45 Ventilator 11/23/18 3.0 23:00 Intake and Output 11/24/18 11/24/18 11/25/18 1414:59 22:59 06:59 IntakeIntake Total 497.04 ml 930.35 ml 1019.430 ml OutputOutput Total 0 ml 1400 ml BalanceBalance 497.04 ml -469.65 ml 1019.430 ml Results Results 24hrs Laboratory Tests Test 11/24/18 16:20 11/24/18 20:37 11/25/18 01:11 11/25/18 05:01 Bedside Glucose 93 107 122 Sodium Level 134 L Potassium Level 3.6 Chloride Level 98 Carbon Dioxide 24 Level Anion Gap 12 Blood Urea 21 H Nitrogen Creatinine 1.14 H Est Glomerular 49 L Filtrat Rate mL/min Glucose Level 110 Calcium Level 8.1 L Phosphorus Level 2.2 #L Magnesium Level 1.8 Test 11/25/18 05:37 11/25/18 06:48 11/25/18 09:05 11/25/18 12:38 Bedside Glucose 129 86 80 White Blood Count 6.0 Red Blood Count 2.43 L Hemoglobin 7.6 L Hematocrit 21.8 L Mean Corpuscular 89.7 Volume Mean Corpuscular 31.3 Hemoglobin Mean Corpuscular 34.9 Hemoglobin Concent Red Cell 19.6 H Distribution Width Platelet Count 9 #*L Mean Platelet 9.6 Volume Immature 1.000 H Granulocytes % Neutrophils % Segmented 63 Neutrophils % (Manual) Band Neutrophils % 13 H (Manual) Lymphocytes % Lymphocytes % 18 (Manual) Monocytes % Monocytes % 6 (Manual) Eosinophils % Basophils % Nucleated Red 0.0 Blood Cells % Immature 0.060 H Granulocytes # Neutrophils # Neutrophils # 3.8 (Manual) Band Neutrophils # 0.7 H Lymphocytes 1.0 (Manual) Lymphocytes # Monocytes # Monocytes # 0.3 (Manual) Eosinophils # Basophils # Nucleated Red Blood Cells # Platelet Estimate SIG DECREASED Poikilocytosis 3+ Anisocytosis 2+ Macrocytosis 1+ Medications Medication Current Medications Ondansetron HCl (Zofran Inj) 4 mg Q6H PRN IV NAUSEA AND/OR VOMITING Last administered on 11/21/18 16:50; Admin Dose 4 MG; Start 11/21/18 at 05:30 Albuterol/ Ipratropium (Duoneb) 3 ml Q2H RESP THERAPY PRN NEB SHORTNESS OF BREATH; Start 11/21/18 at 05:30 Acetaminophen (Tylenol Liquid) 650 mg Q6H PRN PO PAIN LEVEL 1-3 OR FEVER; Start 11/21/18 at 05:30 Amiodarone HCl (Cordarone) 200 mg BID PO Last administered on 11/25/18 09:02; Admin Dose 200 MG; Start 11/21/18 at 09:00 Folic Acid (Folic Acid) 1 mg DAILY PO Last administered on 11/25/18 09:02; Admin Dose 1 MG; Start 11/21/18 at 09:00 Levothyroxine Sodium (Synthroid) 75 mcg BEFORE BREAKFAST PO Last administered on 11/25/18 07:05; Admin Dose 75 MCG; Start 11/21/18 at 07:00 Meropenem/Sodium Chloride 50 ml @ 100 mls/hr Q12 IVPB Last administered on 11/25/18 09:01; Admin Dose 100 MLS/HR; Start 11/21/18 at 21:00 Daptomycin 320 mg/ Sodium Chloride 100 ml @ 200 mls/hr Q48H IVPB Last ad ministered on 11/23/18 16:13; Admin Dose 200 MLS/HR; Start 11/21/18 at 16:00 Norepinephrine 250 ml @ 1.875 mls/ hr TITRATE IV Last administered on 11/25/18 07:26; Admin Dose 7.5 MLS/HR; Start 11/21/18 at 19:00 Diagnostic Test (Pha) (Accu-Chek) 1 ea Q4 XX Last administered on 11/25/18 13:21; Admin Dose 1 EA; Start 11/22/18 at 21:00 Caspofungin 50 mg/ Sodium Chloride 250 ml @ 250 mls/hr Q24H IVPB Last administered on 11/25/18at 12:57; Admin Dose 250 MLS/HR; Start 11/24/18 at 13:00 Miscellaneous Information 1 ea NOTE XX ; Start 11/23/18 at 13:30 Glucose (Glutose) 15 gm Q15M PRN PO DECREASED GLUCOSE; Start 11/23/18 at 13:30 Glucose (Glutose) 22.5 gm Q15M PRN PO DECREASED GLUCOSE; Start 11/23/18 at 13:30 Dextrose (D50w Syringe) 25 ml Q15M PRN IV DECREASED GLUCOSE Last administered on 11/24/18at 05:07; Admin Dose 25 ML; Start 11/23/18 at 13:30 Dextrose (D50w Syringe) 50 ml Q15M PRN IV DECREASED GLUCOSE Last administered on 11/24/18at 01:42; Admin Dose 50 ML; Start 11/23/18 at 13:30 Glucagon (Glucagen) 1 mg Q15M PRN IM DECREASED GLUCOSE; Start 11/23/18 at 13:30 Glucose (Glutose) 15 gm Q15M PRN BUCCAL DECREASED GLUCOSE; Start 11/23/18 at 13:30 Propofol 100 ml @ 1.59 mls/hr Q12H IV Last administered on 11/25/18at 05:32; Admin Dose 3.18 MLS/HR; Start 11/24/18 at 00:00 Phenylephrine HCl 80 mg/Dextrose 250 ml @ 18.75 mls/ hr TITRATE IV ; Start 11/24/18 at 00:00 Midazolam HCl 50 ml @ 1 mls/hr TITRATE IV ; Start 11/24/18 at 00:00 Heparin Sodium (Porcine) (Heparin (1000 Units/ml)) 6,300 unit AFTER DIALYSIS CATHETER Last administered on 11/24/18at 17:57; Admin Dose 6,300 UNIT; Start 11/24/18 at 17:30 Sodium Phosphate (Neutra-Phos) 250 mg BID GTB Last administered on 11/25/18at 09:01; Admin Dose 250 MG; Start 11/25/18 at 09:00 Famotidine (Pepcid) 20 mg DAILY PO ; Start 11/26/18 at 09:00 Dextrose 1,000 ml @ 30 mls/hr Q24H IV ; Start 11/25/18 at 16:00; Status JOSLYN AL MD Nov 25, 2018 15:56
[2018-11-25] MEDS: DAPTOMYCIN 320 MG in SOD CHLORIDE 0.9% 100 ML IVPB SCH (17:16)
[2018-11-25] MEDS: DEXTROSE 50% 50 ML SYRINGE IV PRN (17:25)
[2018-11-25] MEDS ORDERED: LIDOCAINE 1% (MPF) 5 ML VIAL ONE (18:54)
[2018-11-26] VITALS (112 sets, daily range): BP systolic 47–148; BP diastolic 32–94; PULSE 57–133; RESP 17–27
[2018-11-26] MEDS: DEXTROSE 50% 50 ML SYRINGE IV PRN ×4 (01:16→17:41)
[2018-11-26] MEDS: ACCU-CHEK XX SCH ×8 (01:16→23:04)
[2018-11-26] MEDS: ALTEPLASE (CATHFLO) 2 MG INJ CATHETER PRN ×2 (04:44→09:04)
[2018-11-26] MEDS: PROPOFOL 100 ML IV SCH ×3 (04:47→22:25)
[2018-11-26] MEDS: NORepinephrine 8MG/250 ML (PMX 250 ML IV SCH ×2 (05:01→15:25)
[2018-11-26] MEDS: LEVOTHYROXINE 75 MCG TAB PO SCH (06:01)
[2018-11-26] MEDS ORDERED: MAGNESIUM SULFATE 2 GM/50 ML 50 ML IVPB ONE (07:00)
--- NOTE | 2018-11-26 07:57 | CONS ---
Assessment/Plan Assessment/Plan Assessment/Plan (Daily) Spoke with patient's son once again. He adamantly refused to talk about any code change and request that the conversation not be brought up again unless there is a catastrophic change in his mother's clinical condition. Consultation Date/Type/Reason Admit Date/Time Nov 21, 2018 at 04:53 Initial Consult Date Date/Time of Note DATE: 11/26/18 TIME: 07:55 Exam/Review of Systems Exam Vitals Vital Signs Date Temp Pulse Resp B/P (MAP) Pulse Ox O2 O2 Flow FiO2 Time Delivery Rate 11/26/18 128 20 90/68 (75) 100 06:45 11/26/18 Mechanical 06:00 Ventilator 11/26/18 30 05:39 11/26/18 97.4 04:00 11/23/18 3.0 23:00 Intake and Output 11/25/18 11/25/18 11/26/18 1515:00 23:00 07:00 IntakeIntake Total 846.0 ml 862.84 ml 375.70 ml OutputOutput Total 0 ml 0 ml 0 ml BalanceBalance 846.0 ml 862.84 ml 375.70 ml Results Result Diagram: 11/26/18 0530 11/26/18 0530 Results 24hrs Laboratory Tests Test 11/25/18 09:05 11/25/18 12:38 11/25/18 17:15 11/25/18 17:48 Bedside Glucose 86 80 63 L 128 Test 11/25/18 18:07 11/25/18 21:05 11/26/18 01:13 11/26/18 01:38 Bedside Glucose 106 81 66 L 124 Test 11/26/18 01:53 11/26/18 04:59 11/26/18 05:12 11/26/18 05:23 Bedside Glucose 101 50 L 253 H Lab Scanned BLOOD TRANSFUSIO Report N Test 11/26/18 05:30 11/26/18 05:40 White Blood Count 7.7 # Red Blood Count 2.58 L Hemoglobin 7.9 L Hematocrit 22.9 L Mean Corpuscular 88.8 Volume Mean Corpuscular 30.6 Hemoglobin Mean Corpuscular 34.5 Hemoglobin Concen t Red Cell 17.9 H Distribution Width Platelet Count 8 *L Mean Platelet Volume Immature 1.300 H Granulocytes % Neutrophils % Lymphocytes % Monocytes % Eosinophils % Basophils % Nucleated Red 0.0 Blood Cells % Immature 0.100 H Granulocytes # Neutrophils # Lymphocytes # Monocytes # Eosinophils # Basophils # Nucleated Red Blood Cells # Sodium Level 129 L Potassium Level 4.1 Chloride Level 97 Carbon Dioxide 22 Level Anion Gap 10 Blood Urea 32 #H Nitrogen Creatinine 1.28 H Est Glomerular 43 L Filtrat Rate mL/min Glucose Level 188 Calcium Level 7.6 L Phosphorus Level 2.4 L Magnesium Level 1.6 L Bedside Glucose 172 Medications Medication Current Medications Ondansetron HCl (Zofran Inj) 4 mg Q6H PRN IV NAUSEA AND/OR VOMITING Last administered on 11/21/18 16:50; Admin Dose 4 MG; Start 11/21/18 at 05:30 Albuterol/ Ipratropium (Duoneb) 3 ml Q2H RESP THERAPY PRN NEB SHORTNESS OF BREATH; Start 11/21/18 at 05:30 Acetaminophen (Tylenol Liquid) 650 mg Q6H PRN PO PAIN LEVEL 1-3 OR FEVER; Start 11/21/18 at 05:30 Amiodarone HCl (Cordarone) 200 mg BID PO Last administered on 11/25/18 20:54; Admin Dose 200 MG; Start 11/21/18 at 09:00 Folic Acid (Folic Acid) 1 mg DAILY PO Last administered on 11/25/18 09:02; Admin Dose 1 MG; Start 11/21/18 at 09:00 Levothyroxine Sodium (Synthroid) 75 mcg BEFORE BREAKFAST PO Last administered on 11/26/18 06:01; Admin Dose 75 MCG; Start 11/21/18 at 07:00 Meropenem/Sodium Chloride 50 ml @ 100 mls/hr Q12 IVPB Last administered on 11/25/18 20:54; Admin Dose 100 MLS/HR; Start 11/21/18 at 21:00 Daptomycin 320 mg/ Sodium Chloride 100 ml @ 200 mls/hr Q48H IVPB Last administered on 11/25/18 17:16; Admin Dose 200 MLS/HR; Start 11/21/18 at 16:00 Norepinephrine 250 ml @ 1.875 mls/ hr TITRATE IV Last administered on 11/26/18 05:01; Admin Dose 15 MLS/HR; Start 11/21/18 at 19:00 Diagnostic Test (Pha) (Accu-Chek) 1 ea Q4 XX Last administered on 11/26/18at 05:13; Admin Dose 1 EA; Start 11/22/18 at 21:00 Caspofungin 50 mg/ Sodium Chloride 250 ml @ 250 mls/hr Q24H IVPB Last administered on 11/25/18at 12:57; Admin Dose 250 MLS/HR; Start 11/24/18 at 13:00 Miscellaneous Information 1 ea NOTE XX ; Start 11/23/18 at 13:30 Glucose (Glutose) 15 gm Q15M PRN PO DECREASED GLUCOSE; Start 11/23/18 at 13:30 Glucose (Glutose) 22.5 gm Q15M PRN PO DECREASED GLUCOSE; Start 11/23/18 at 13:30 Dextrose (D50w Syringe) 25 ml Q15M PRN IV DECREASED GLUCOSE Last administered on 11/26/18at 01:16; Admin Dose 25 ML; Start 11/23/18 at 13:30 Dextrose (D50w Syringe) 50 ml Q15M PRN IV DECREASED GLUCOSE Last administered on 11/26/18at 05:17; Admin Dose 50 ML; Start 11/23/18 at 13:30 Glucagon (Glucagen) 1 mg Q15M PRN IM DECREASED GLUCOSE; Start 11/23/18 at 13:30 Glucose (Glutose) 15 gm Q15M PRN BUCCAL DECREASED GLUCOSE; Start 11/23/18 at 13:30 Propofol 100 ml @ 1.59 mls/hr Q12H IV Last administered on 11/26/18at 04:47; Admin Dose 3.18 MLS/HR; Start 11/24/18 at 00:00 Phenylephrine HCl 80 mg/Dextrose 250 ml @ 18.75 mls/ hr TITRATE IV ; Start 11/24/18 at 00:00 Midazolam HCl 50 ml @ 1 mls/hr TITRATE IV ; Start 11/24/18 at 00:00 Heparin Sodium (Porcine) (Heparin (1000 Units/ml)) 6,300 unit AFTER DIALYSIS CATHETER Last administered on 11/24/18at 17:57; Admin Dose 6,300 UNIT; Start 11/24/18 at 17:30 Sodium Phosphate (Neutra-Phos) 250 mg BID GTB Last administered on 11/25/18at 20:54; Admin Dose 250 MG; Start 11/25/18 at 09:00 Famotidine (Pepcid) 20 mg DAILY PO ; Start 11/26/18 at 09:00 Dextrose 1,000 ml @ 30 mls/hr Q24H IV Last administered on 11/25/18at 17:10; Admin Dose 30 MLS/HR; Start 11/25/18 at 16:00 Alteplase, Recombinant (Cathflo (Activase)) 2 mg MAY REPEAT X1 PRN CATHETER IF CATHETER REMAINS OCCULUDED Last administered on 11/26/18at 04:44; Admin Dose 2 MG; Start 11/26/18 at 03:00 Magnesium Sulfate 50 ml @ 25 mls/hr ONCE ONCE IVPB ; Start 11/26/18 at 07:00; Stop 11/26/18 at 08:59 JULIEN SALINAS Nov 26, 2018 07:57
--- NOTE | 2018-11-26 08:11 | PN ---
DATE: 11/26/2018 SUBJECTIVE: The patient remains critically ill on pressor support. The patient remained obtunded. No other events noted. No hemoptysis, hematemesis or hematochezia. OBJECTIVE: VITAL SIGNS: Blood pressure is 90/68, respirations 20, pulse is 120, temperature 98.6. HEENT: Head is normocephalic. NECK: Supple. HEART: Regular rate. LUNGS: Show diminished breath sounds at the base. ABDOMEN: Soft, nontender to palpation without rebound or guarding. EXTREMITIES: Negative for clubbing, cyanosis. Positive edema, diffuse anasarca. DERMATOLOGIC: No rashes. MUSCULOSKELETAL: No joint effusion. NEUROLOGIC: No change in exam. MEDICATIONS: Reviewed. LABORATORY DATA: Reviewed. IMAGING STUDIES: Reviewed. MICROBIOLOGY: Cultures have been reviewed. ASSESSMENT AND PLAN: 1. End-stage renal disease. The patient is scheduled for hemodialysis today. We will dialyze for 3 hours, 3K bath, calcium 2.5. Anticipate dialysis tomorrow as well for solute clearance and volume r emoval. 2. Volume overload with diffuse anasarca secondary to end-stage renal disease, capillary leak. Cont inue ultrafiltration with hemodialysis if hemodynamically stable. 3. Septic shock, etiology is secondary to pneumonia and bacteremia. The patient's repeat blood cult ures have been negative. The patient remains on pressor support, IV fluids and broad spectrum antibi otics. We will continue. Follow up with Infectious Disease. 4. Anemia. Continue to monitor hemoglobin and hematocrit levels. We will continue Epogen. 5. Hypernatremia. The patient will be dialyzed on a 140 sodium bath. We will minimize hypertonic f luid. 6. Hypokalemia. Continue to monitor and replete as needed. 7. Mineral bone disorder. The patient is hyperphosphatemic, hypocalcemic. We will continue to repl acement with phosphorus with sodium phosphate. The patient will be dialyzed on high calcium bath. 8. Ventilator-dependent respiratory failure. Vent settings and ABG was reviewed. Continue to monit or. Follow up with pulmonary. 9. Acute encephalopathy, etiology is toxic metabolic. 10. 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 Continue to monitor. 11. Ascites. Continue to monitor. 12. Hypothyroidism. Continue Synthroid. 13. Lactic acidosis, secondary to shock. Continue to monitor. 14. Hypomagnesemia. We will replete with magnesium sulfate. Please note I spent over 30 minutes of critical care time with this patient. Dictated By: SARIKA JOINER DO NR/NTS Conf#: [id number] DID#: [id number] CC: LORRAINE JOHNSON MD; MANDY BATES MD; JOSLYN LANDRUM MD;*End*
[2018-11-26] MEDS: NEUTRA-PHOS 250 MG PACKET GTB SCH ×2 (08:14→21:35)
[2018-11-26] MEDS: MEROPENEM 500MG/50 ML (PMX) 50 ML IVPB SCH ×2 (08:14→21:35)
[2018-11-26] MEDS: FAMOTIDINE 20 MG TAB PO SCH (08:14)
[2018-11-26] MEDS: AMIODARONE 200 MG TAB PO SCH (08:14)
[2018-11-26] MEDS: FOLIC ACID 1 MG TAB PO SCH (08:14)
[2018-11-26] MEDS: BALSAM PERU/CASTOR OIL 60 GM TUBE TOP SCH ×2 (08:25→21:46)
[2018-11-26] MEDS: AMIODARONE 900 MG in DEXTROSE 5% 482 ML IV SCH (09:02)
--- NOTE | 2018-11-26 10:32 | CONS ---
Consult Date/Type/Reason Admit Date/Time Nov 21, 2018 at 04:53 Initial Consult Date Type of Consult Pulmonary Date/Time of Note DATE: 11/26/18 TIME: 10:24 Subjective Remains somnolent on mechanical ventilation. Continues vasopressor support Propofol held this morning. Increased residuals noted to feed on hold Objective Vital Signs Date Temp Pulse Resp B/P (MAP) Pulse Ox O2 O2 Flow FiO2 Time Delivery Rate 11/26/18 117 20 109/76 99 08:45 (87) 11/26/18 98.0 08:00 11/26/18 Mechanical 06:00 Ventilator 11/26/18 30 05:39 11/23/18 3.0 23:00 Intake and Output 11/25/18 11/25/18 11/26/18 1414:59 22:59 06:59 IntakeIntake Total 898.68 ml 839.22 ml 417.32 ml OutputOutput Total 0 ml 0 ml 0 ml BalanceBalance 898.68 ml 839.22 ml 417.32 ml Exam GENERAL: Thin cachectic lady on mechanical ventilation VITAL SIGNS: per chart NECK: Supple. No JVD or lymphadenopathy. CARDIAC EXAM: S1, S2. No added sounds or murmurs. CHEST: Diminished air entry bilaterally ABDOMEN: Soft, nontender. No guarding or rebound. EXTREMITIES: No cyanosis, clubbing or edema. NEUROLOGIC: Generalized weakness. Vent Setting Ventilator Support Mode: AC Fraction of Inspired Oxygen pe: 30 Positive End Expiratory Pressu: 5.0 Results/Medications Result Diagram: 11/26/18 0530 11/26/18 0530 Results 24 hrs Laboratory Tests Test 11/25/18 12:38 11/25/18 17:15 11/25/18 17:48 11/25/18 18:07 Bedside Glucose 80 63 L 128 106 Test 11/25/18 21:05 11/26/18 01:13 11/26/18 01:38 11/26/18 01:53 Bedside Glucose 81 66 L 124 101 Test 11/26/18 04:59 11/26/18 05:12 11/26/18 05:23 11/26/18 05:30 Lab Scanned BLOOD TRANSFUSI Report ON Bedside Glucose 50 L 253 H White Blood 7.7 # Count Red Blood Count 2.58 L Hemoglobin 7.9 L Hematocrit 22.9 L Mean Corpuscular 88.8 Volume Mean Corpuscular 30.6 Hemoglobin Mean Corpuscular 34.5 Hemoglobin Anh nt Red Cell 17.9 H Distribution Width Platelet Count 8 *L Mean Platelet Volume Immature 1.300 H Granulocytes % Neutrophils % Segmented 71 Neutrophils % (Manual) Band Neutrophils 2 % (Manual) Lymphocytes % Lymphocytes % 22 (Manual) Reactive 4 H Lymphocytes % (Manual) Monocytes % Eosinophils % Eosinophils % 1 (Manual) Basophils % Nucleated Red 0.0 Blood Cells % Immature 0.100 H Granulocytes # Neutrophils # Neutrophils # 5.5 (Manual) Band Neutrophils 0.1 # Lymphocytes 1.6 (Manual) Lymphocytes # Reactive 0.3 H Lymphocytes # Monocytes # Eosinophils # Basophils # Nucleated Red Blood Cells # Platelet SIG DECREASED Estimate Giant Platelets 1 H Poikilocytosis 3+ Anisocytosis 2+ Macrocytosis 1+ Sodium Level 129 L Potassium Level 4.1 Chloride Level 97 Carbon Dioxide 22 Level Anion Gap 10 Blood Urea 32 #H Nitrogen Creatinine 1.28 H Est Glomerular 43 L Filtrat Rate mL/min Glucose Level 188 Calcium Level 7.6 L Phosphorus Level 2.4 L Magnesium Level 1.6 L Test 11/26/18 05:40 11/26/18 08:17 Bedside Glucose 172 71 Medications Current Medications Ondansetron HCl (Zofran Inj) 4 mg Q6H PRN IV NAUSEA AND/OR VOMITING Last administered on 11/21/18at 16:50; Admin Dose 4 MG; Start 11/21/18 at 05:30 Albuterol/ Ipratropium (Duoneb) 3 ml Q2H RESP THERAPY PRN NEB SHORTNESS OF B REATH; Start 11/21/18 at 05:30 Acetaminophen (Tylenol Liquid) 650 mg Q6H PRN PO PAIN LEVEL 1-3 OR FEVER; Start 11/21/18 at 05:30 Amiodarone HCl (Cordarone) 200 mg BID PO Last administered on 11/26/18 08:14; Admin Dose 200 MG; Start 11/21/18 at 09:00; Status Hold Folic Acid (Folic Acid) 1 mg DAILY PO Last administered on 11/26/18at 08:14; Admin Dose 1 MG; Start 11/21/18 at 09:00 Levothyroxine Sodium (Synthroid) 75 mcg BEFORE BREAKFAST PO Last administered on 11/26/18at 06:01; Admin Dose 75 MCG; Start 11/21/18 at 07:00 Meropenem/Sodium Chloride 50 ml @ 100 mls/hr Q12 IVPB Last administered on 11/26/18at 08:14; Admin Dose 100 MLS/HR; Start 11/21/18 at 21:00 Daptomycin 320 mg/ Sodium Chloride 100 ml @ 200 mls/hr Q48H IVPB Last administered on 11/25/18at 17:16; Admin Dose 200 MLS/HR; Start 11/21/18 at 16:00 Norepinephrine 250 ml @ 1.875 mls/ hr TITRATE IV Last administered on 11/26/18 at 05:01; Admin Dose 15 MLS/HR; Start 11/21/18 at 19:00 Diagnostic Test (Pha) (Accu-Chek) 1 ea Q4 XX Last administered on 11/26/18at 08:19; Admin Dose 1 EA; Start 11/22/18 at 21:00 Caspofungin 50 mg/ Sodium Chloride 250 ml @ 250 mls/hr Q24H IVPB Last administered on 11/25/18at 12:57; Admin Dose 250 MLS/HR; Start 11/24/18 at 13:00 Miscellaneous Information 1 ea NOTE XX ; Start 11/23/18 at 13:30 Glucose (Glutose) 15 gm Q15M PRN PO DECREASED GLUCOSE; Start 11/23/18 at 13:30 Glucose (Glutose) 22.5 gm Q15M PRN PO DECREASED GLUCOSE; Start 11/23/18 at 13:30 Dextrose (D50w Syringe) 25 ml Q15M PRN IV DECREASED GLUCOSE Last administered on 11/26/18at 01:16; Admin Dose 25 ML; Start 11/23/18 at 13:30 Dextrose (D50w Syringe) 50 ml Q15M PRN IV DECREASED GLUCOSE Last administered on 11/26/18at 05:17; Admin Dose 50 ML; Start 11/23/18 at 13:30 Glucagon (Glucagen) 1 mg Q15M PRN IM DECREASED GLUCOSE; Start 11/23/18 at 13:30 Glucose (Glutose) 15 gm Q15M PRN BUCCAL DECREASED GLUCOSE; Start 11/23/18 at 13:30 Propofol 100 ml @ 1.59 mls/hr Q12H IV Last administered on 11/26/18at 04:47; Admin Dose 3.18 MLS/HR; Start 11/24/18 at 00:00 Phenylephrine HCl 80 mg/Dextrose 250 ml @ 18.75 mls/ hr TITRATE IV ; Start 11/24/18 at 00:00 Midazolam HCl 50 ml @ 1 mls/hr TITRATE IV ; Start 11/24/18 at 00:00 Heparin Sodium (Porcine) (Heparin (1000 Units/ml)) 6,300 unit AFTER DIALYSIS CATHETER Last administered on 11/24/18at 17:57; Admin Dose 6,300 UNIT; Start 11/24/18 at 17:30 Sodium Phosphate (Neutra-Phos) 250 mg BID GTB Last administered on 11/26/18 08:14; Admin Dose 250 MG; Start 11/25/18 at 09:00 Famotidine (Pepcid) 20 mg DAILY PO Last administered on 11/26/18at 08:14; Admin Dose 20 MG; Start 11/26/18 at 09:00 Dextrose 1,000 ml @ 30 mls/hr Q24H IV Last administered on 11/25/18at 17:10; Admin Dose 30 MLS/HR; Start 11/25/18 at 16:00 Alteplase, Recombinant (Cathflo (Activase)) 2 mg MAY REPEAT X1 PRN CATHETER IF CATHETER REMAINS OCCULUDED Last administered on 11/26/18at 09:04; Admin Dose 2 MG; Start 11/26/18 at 03:00 Amiodarone HCl 900 mg/Dextrose 500 ml @ 0 mls/hr Q0M IV Last administered on 09:02; Admin Dose 33.3 MLS/HR; Start 11/26/18 at 09:00 Assessment/Plan Hospital Course (Demo Recall) Assessment 1. Septic shock likely secondary to pneumonia 2. Acute hypoxemic respiratory failure 3. History of cardiomyopathy 4. Severe thrombocytopenia with anemia no active GI bleeding 5. End-stage renal failure on hemodialysis Plan 1. Consider platelet transfusion 2. Titrate pressors to keep map greater than 65 3. Hold tube feeding 4. Vasopressor support as needed 5. Hemodialysis as tolerated Long discussion with family at bedside. They understand she has a very poor prognosis but wish to continue all aggressive measures Critical care time 40 minutes. NINA MORRIS MD, [facility] Nov 26, 2018 10:32
[2018-11-26] MEDS ORDERED: ALBUMIN HUMAN 25% 100 ML ONE (13:37)
[2018-11-26] MEDS: CASPOFUNGIN 50 MG in SOD CHLORIDE 0.9% 250 ML IVPB SCH (13:42)
--- NOTE | 2018-11-26 13:54 | CONS ---
Assessment/Plan Assessment/Plan Hospital Course (Demo Recall) Patient developed rapid atrial fibrillation was started on amiodarone drip, currently on hemodialysis sedated in no distress, family at bedside, she remains on levo fed. No fevers WBC 7.7 H&H 7.9 and 22.9 platelets 8 Chest x-ray this morning revealed increased bilateral interstitial and alveolar infiltrates concerning for edema, pneumonia or pneumonitis. Please see full report Is microbiology: Blood culture on admission grew Klebsiella ESBL, repeat blood cultures negative, left thigh wound culture grew Klebsiella ESBL and Leah albicans Chest x-ray revealed increased in patchy infiltrates throughout both lungs with potential small pleural effusions Antimicrobials: Meropenem, Cancidas, daptomycin Allergy: Zosyn, vancomycin Indwelling: Right upper thigh Davie catheter, left femoral triple-lumen catheter, endotracheal tube, orogastric tube, midline Physical examination: This is a chronically ill-appearing cachectic middle-aged woman who is laying comfortably in bed. Head atraumatic normocephalic. Neck is supple. Chest rise symmetrical. Breath sounds diminished bases. Heart: S1-S2, irreg. Abdomen distended. Bowel sounds hypoactive. Extremities with bilateral edema, cyanotic, multiple ecchymotic areas and bruises, left upper thigh dressi ng present is Assessment: 1. Severe sepsis with MSOF 2. Acute hypoxemic respiratory failure secondary to CHF exacerbation/probable pneumonia 3. Klebsiella ESBL bacteremia 4. 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 End-stage renal disease, hemodialysis dependent 6. Atrial fibrillation 7. Unstageable sacral decubitus 8. History of peritoneal dialysis with peritoneal dialysis still in place 9. Ascites status post paracentesis 3 weeks ago 10. Failure to thrive 11. Progressive thrombocytopenia 12. History of permanent pacemaker Plan: Remains hemodynamically unstable, pending sputum culture, will change daptomycin to IV Clindamycin Consultation Date/Type/Reason Admit Date/Time Nov 21, 2018 at 04:53 Initial Consult Date Type of Consult id Date/Time of Note DATE: 11/26/18 TIME: 13:50 Exam/Review of Systems Exam Vitals Vital Signs Date Temp Pulse Resp B/P (MAP) Pulse Ox O2 O2 Flow FiO2 Time Delivery Rate 11/26/18 98.2 73 20 113/66 99 12:00 (82) 11/26/18 30 08:00 11/26/18 Mechanical 06:00 Ventilator 11/23/18 3.0 23:00 Intake and Output 11/25/18 11/25/18 11/26/18 1515:00 23:00 07:00 IntakeIntake Total 846.0 ml 862.84 ml 423.70 ml OutputOutput Total 0 ml 0 ml 0 ml BalanceBalance 846.0 ml 862.84 ml 423.70 ml Results Result Diagram: 11/26/18 0530 11/26/18 0530 Results 24hrs Laboratory Tests Test 11/25/18 17:15 11/25/18 17:48 11/25/18 18:07 11/25/18 21:05 Bedside Glucose 63 L 128 106 81 Test 11/26/18 01:13 11/26/18 01:38 11/26/18 01:53 11/26/18 04:59 Bedside Glucose 66 L 124 101 Lab Scanned BLOOD TRANSFUSI Report ON Test 11/26/18 05:12 11/26/18 05:23 11/26/18 05:30 11/26/18 05:40 Bedside Glucose 50 L 253 H 172 White Blood 7.7 # Count Red Blood Count 2.58 L Hemoglobin 7.9 L Hematocrit 22.9 L Mean Corpuscular 88.8 Volume Mean Corpuscular 30.6 Hemoglobin Mean Corpuscular 34.5 Hemoglobin Anh nt Red Cell 17.9 H Distribution Width Platelet Count 8 *L Mean Platelet Volume Immature 1.300 H Granulocytes % Neutrophils % Segmented 71 Neutrophils % (Manual) Band Neutrophils 2 % (Manual) Lymphocytes % Lymphocytes % 22 (Manual) Reactive 4 H Lymphocytes % (Manual) Monocytes % Eosinophils % Eosinophils % 1 (Manual) Basophils % Nucleated Red 0.0 Blood Cells % Immature 0.100 H Granulocytes # Neutrophils # Neutrophils # 5.5 (Manual) Band Neutrophils 0.1 # Lymphocytes 1.6 (Manual) Lymphocytes # Reactive 0.3 H Lymphocytes # Monocytes # Eosinophils # Basophils # Nucleated Red Blood Cells # Platelet SIG DECREASED Estimate Giant Platelets 1 H Poikilocytosis 3+ Anisocytosis 2+ Macrocytosis 1+ Sodium Level 129 L Potassium Level 4.1 Chloride Level 97 Carbon Dioxide 22 Level Anion Gap 10 Blood Urea 32 #H Nitrogen Creatinine 1.28 H Est Glomerular 43 L Filtrat Rate mL/min Glucose Level 188 Calcium Level 7.6 L Phosphorus Level 2.4 L Magnesium Level 1.6 L Test 11/26/18 08:17 11/26/18 13:01 11/26/18 13:16 Bedside Glucose 71 47 *L 201 Medications Medication Current Medications Ondansetron HCl (Zofran Inj) 4 mg Q6H PRN IV NAUSEA AND/OR VOMITING Last administered on 11/21/18 16:50; Admin Dose 4 MG; Start 11/21/18 at 05:30 Albuterol/ Ipratropium (Duoneb) 3 ml Q2H RESP THERAPY PRN NEB SHORTNESS OF BREATH; Start 11/21/18 at 05:30 Acetaminophen (Tylenol Liquid) 650 mg Q6H PRN PO PAIN LEVEL 1-3 OR FEVER; Start 11/21/18 at 05:30 Amiodarone HCl (Cordarone) 200 mg BID PO Last administered on 11/26/18 08:14; Admin Dose 200 MG; Start 11/21/18 at 09:00; Status Hold Folic Acid (Folic Acid) 1 mg DAILY PO Last administered on 11/26/18 08:14; Adm in Dose 1 MG; Start 11/21/18 at 09:00 Levothyroxine Sodium (Synthroid) 75 mcg BEFORE BREAKFAST PO Last administered on 11/26/18 06:01; Admin Dose 75 MCG; Start 11/21/18 at 07:00 Meropenem/Sodium Chloride 50 ml @ 100 mls/hr Q12 IVPB Last administered on 11/26/18 08:14; Admin Dose 100 MLS/HR; Start 11/21/18 at 21:00 Daptomycin 320 mg/ Sodium Chloride 100 ml @ 200 mls/hr Q48H IVPB Last admini stered on 11/25/18 17:16; Admin Dose 200 MLS/HR; Start 11/21/18 at 16:00 Norepinephrine 250 ml @ 1.875 mls/ hr TITRATE IV Last administered on 11/26/18 05:01; Admin Dose 15 MLS/HR; Start 11/21/18 at 19:00 Diagnostic Test (Pha) (Accu-Chek) 1 ea Q4 XX Last administered on 11/26/18 13:06; Admin Dose 1 EA; Start 11/22/18 at 21:00 Caspofungin 50 mg/ Sodium Chloride 250 ml @ 250 mls/hr Q24H IVPB Last administered on 11/26/18at 13:42; Admin Dose 250 MLS/HR; Start 11/24/18 at 13:00 Miscellaneous Information 1 ea NOTE XX ; Start 11/23/18 at 13:30 Glucose (Glutose) 15 gm Q15M PRN PO DECREASED GLUCOSE; Start 11/23/18 at 13:30 Glucose (Glutose) 22.5 gm Q15M PRN PO DECREASED GLUCOSE; Start 11/23/18 at 13:30 Dextrose (D50w Syringe) 25 ml Q15M PRN IV DECREASED GLUCOSE Last administered on 11/26/18at 01:16; Admin Dose 25 ML; Start 11/23/18 at 13:30 Dextrose (D50w Syringe) 50 ml Q15M PRN IV DECREASED GLUCOSE Last administered on 11/26/18at 13:03; Admin Dose 50 ML; Start 11/23/18 at 13:30 Glucagon (Glucagen) 1 mg Q15M PRN IM DECREASED GLUCOSE; Start 11/23/18 at 13:30 Glucose (Glutose) 15 gm Q15M PRN BUCCAL DECREASED GLUCOSE; Start 11/23/18 at 13:30 Propofol 100 ml @ 1.59 mls/hr Q12H IV Last administered on 11/26/18at 04:47; Admin Dose 3.18 MLS/HR; Start 11/24/18 at 00:00 Phenylephrine HCl 80 mg/Dextrose 250 ml @ 18.75 mls/ hr TITRATE IV ; Start 11/24/18 at 00:00 Midazolam HCl 50 ml @ 1 mls/hr TITRATE IV ; Start 11/24/18 at 00:00 Heparin Sodium (Porcine) (Heparin (1000 Units/ml)) 6,300 unit AFTER DIALYSIS CATHETER Last administered on 11/24/18at 17:57; Admin Dose 6,300 UNIT; Start 11/24/18 at 17:30 Sodium Phosphate (Neutra-Phos) 250 mg BID GTB Last administered on 11/26/18at 0 8:14; Admin Dose 250 MG; Start 11/25/18 at 09:00 Famotidine (Pepcid) 20 mg DAILY PO Last administered on 11/26/18at 08:14; Admin Dose 20 MG; Start 11/26/18 at 09:00 Dextrose 1,000 ml @ 30 mls/hr Q24H IV Last administered on 11/25/18at 17:10; Admin Dose 30 MLS/HR; Start 11/25/18 at 16:00 Alteplase, Recombinant (Cathflo (Activase)) 2 mg MAY REPEAT X1 PRN CATHETER IF CATHETER REMAINS OCCULUDED Last administered on 11/26/18at 09:04; Admin Dose 2 MG; Start 11/26/18 at 03:00 Amiodarone HCl 900 mg/Dextrose 500 ml @ 0 mls/hr Q0M IV Last administered on 11/26/18at 09:02; Admin Dose 33.3 MLS/HR; Start 11/26/18 at 09:00 Albumin Human 100 ml @ 100 mls/hr DURING DIALYSIS PRN IV HYPOTENSION DURING HD; Start 11/26/18 at 14:00 KELSIE ELY NP Nov 26, 2018 13:54
[2018-11-26] MEDS: CLINDAMYCIN 600 MG/D5W (PMX) 50 ML IVPB SCH ×2 (15:21→22:21)
[2018-11-26] MEDS: HEPARIN 1000 UNITS/ML 10 ML INJ CATHETER SCH (16:16)
--- NOTE | 2018-11-26 16:34 | PN ---
Date/Time of Note Date/Time of Note DATE: 11/26/18 TIME: 16:32 Assessment/Plan VTE Prophylaxis Risk score (from Nsg)>0 risk: 7 SCD applied (from Nsg): Yes Pharmacological prophylaxis: heparin Lines/Catheters IV Catheter Type (from Nrsg): Mid Line Urinary Cath still in place: No Assessment/Plan Hospital Course Intubated sedated Chronically ill appearing Lungs clear Distended belly, firm masses Peripheral edema present LUE wound wrapped 58 yo female with ESRD, cirrohsihs, DMII presents with hypoglycemia, leg infection. Suffered cardiac and respiratory arrest, now intubated Cardiac arrest, acute respiratory failure: - Continue vasopressors and mechanical ventilation per pulmonary - Goals of care discussions with family Severe hypoglycemia: No history of diabetes and patient not on any insulin or sulfonylurea or any other diabetic medication -This could be from decreased p.o. 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 Her son, which was found to have fungus in her wound for which she was given fluconazole. Will obtain records - Antibiotics per ID -Venous study was negative for DVT -Wound care consult A Fib: - Amiodarone ESRD with fluid overload - HD per nephrology Pancytopenia with coagulopathy, thrombocytopenia: Patient had workup here during recent hospitalization. -Thrombocytopenia was thought to be secondary to HIT but may be related to liver disease -Per son, patient did receive platelet transfusion at [facility] -Picture of pancytopenia with macrocytic anemia and coagulopathy does appear c onsistent with liver disease, await liver ultrasound 7. Hypothyroidism: Continue Synthroid 8. History of hypertension -Blood pressure currently low 9. History of pacemaker: No acute issue 10. Ascites secondary to fluid overload and/or liver disease: Status post paracentesis 3 weeks ago with removal of 4.5 L -No need for emergent paracentesis, in addition patient's blood pressure is low 11. Chronic peritoneal dialysis: This is not being used. Not being removed because of the severe thrombocytopenia. This can be addressed at [facility] where she usually gets her care 12. Failure to thrive: Patient is very cachectic -Nutrition consult Prophylaxis: SCDs DC planning: Poor prognosis. Continue goals of care discussions with family. So far unwilling to consider withdrawal of care. Very upset to be asked about it and don't want us to bring it up again Result Diagram: 11/26/18 0530 11/26/18 0530 Results 24hrs Laboratory Tests Test 11/25/18 17:15 11/25/18 17:48 11/25/18 18:07 11/25/18 21:05 Bedside Glucose 63 L 128 106 81 Test 11/26/18 01:13 11/26/18 01:38 11/26/18 01:53 11/26/18 04:59 Bedside Glucose 66 L 124 101 Lab Scanned BLOOD TRANSFUSI Report ON Test 11/26/18 05:12 11/26/18 05:23 11/26/18 05:30 11/26/18 05:40 Bedside Glucose 50 L 253 H 172 White Blood 7.7 # Count Red Blood Count 2.58 L Hemoglobin 7.9 L Hematocrit 22.9 L Mean Corpuscular 88.8 Volume Mean Corpuscular 30.6 Hemoglobin Mean Corpuscular 34.5 Hemoglobin Anh nt Red Cell 17.9 H Distribution Width Platelet Count 8 *L Mean Platelet Volume Immature 1.300 H Granulocytes % Neutrophils % Segmented 71 Neutrophils % (Manual) Band Neutrophils 2 % (Manual) Lymphocytes % Lymphocytes % 22 (Manual) Reactive 4 H Lymphocytes % (Manual) Monocytes % Eosinophils % Eosinophils % 1 (Manual) Basophils % Nucleated Red 0.0 Blood Cells % Immature 0.100 H Granulocytes # Neutrophils # Neutrophils # 5.5 (Manual) Band Neutrophils 0.1 # Lymphocytes 1.6 (Manual) Lymphocytes # Reactive 0.3 H Lymphocytes # Monocytes # Eosinophils # Basophils # Nucleated Red Blood Cells # Platelet SIG DECREASED Estimate Giant Platelets 1 H Poikilocytosis 3+ Anisocytosis 2+ Macrocytosis 1+ Sodium Level 129 L Potassium Level 4.1 Chloride Level 97 Carbon Dioxide 22 Level Anion Gap 10 Blood Urea 32 #H Nitrogen Creatinine 1.28 H Est Glomerular 43 L Filtrat Rate mL/min Glucose Level 188 Calcium Level 7.6 L Phosphorus Level 2.4 L Magnesium Level 1.6 L Test 11/26/18 08:17 11/26/18 13:01 11/26/18 13:16 11/26/18 13:42 Bedside Glucose 71 47 *L 201 122 Subjective 24 Hr Interval Summary Free Text/Dictation Went into A FIb. Given amiodarone. Converted to sinus Remains intubated, sedated on vasporessors I again spoke with family. They are adamant about pursuing all aggressive measures Exam/Review of Systems Exam Vitals Vital Signs Date Temp Pulse Resp B/P (MAP) Pulse Ox O2 O2 Flow FiO2 Time Delivery Rate 11/26/18 58 16:00 11/26/18 20 89/56 (67) 99 15:45 11/26/18 30 13:00 11/26/18 Mechanical 12:30 Ventilator 11/26/18 98.2 12:00 11/23/18 3.0 23:00 Intake and Output 11/25/18 11/25/18 11/26/18 1515:00 23:00 07:00 IntakeIntake Total 846.0 ml 862.84 ml 423.70 ml OutputOutput Total 0 ml 0 ml 0 ml BalanceBalance 846.0 ml 862.84 ml 423.70 ml Results Results 24hrs Laboratory Tests Test 11/25/18 17:15 11/25/18 17:48 11/25/18 18:07 11/25/18 21:05 Bedside Glucose 63 L 128 106 81 Test 11/26/18 01:13 11/26/18 01:38 11/26/18 01:53 11/26/18 04:59 Bedside Glucose 66 L 124 101 Lab Scanned BLOOD TRANSFUSI Report ON Test 11/26/18 05:12 11/26/18 05:23 11/26/18 05:30 11/26/18 05:40 Bedside Glucose 50 L 253 H 172 White Blood 7.7 # Count Red Blood Count 2.58 L Hemoglobin 7.9 L Hematocrit 22.9 L Mean Corpuscular 88.8 Volume Mean Corpuscular 30.6 Hemoglobin Mean Corpuscular 34.5 Hemoglobin Anh nt Red Cell 17.9 H Distribution Width Platelet Count 8 *L Mean Platelet Volume Immature 1.300 H Granulocytes % Neutrophils % Segmented 71 Neutrophils % (Manual) Band Neutrophils 2 % (Manual) Lymphocytes % Lymphocytes % 22 (Manual) Reactive 4 H Lymphocytes % (Manual) Monocytes % Eosinophils % Eosinophils % 1 (Manual) Basophils % Nucleated Red 0.0 Blood Cells % Immature 0.100 H Granulocytes # Neutrophils # Neutrophils # 5.5 (Manual) Band Neutrophils 0.1 # Lymphocytes 1.6 (Manual) Lymphocytes # Reactive 0.3 H Lymphocytes # Monocytes # Eosinophils # Basophils # Nucleated Red Blood Cells # Platelet SIG DECREASED Estimate Giant Platelets 1 H Poikilocytosis 3+ Anisocytosis 2+ Macrocytosis 1+ Sodium Level 129 L Potassium Level 4.1 Chloride Level 97 Carbon Dioxide 22 Level Anion Gap 10 Blood Urea 32 #H Nitrogen Creatinine 1.28 H Est Glomerular 43 L Filtrat Rate mL/min Glucose Level 188 Calcium Level 7.6 L Phosphorus Level 2.4 L Magnesium Level 1.6 L Test 11/26/18 08:17 11/26/18 13:01 11/26/18 13:16 11/26/18 13:42 Bedside Glucose 71 47 *L 201 122 Medications Medication Current Medications Ondansetron HCl (Zofran Inj) 4 mg Q6H PRN IV NAUSEA AND/OR VOMITING Last administered on 11/21/18at 16:50; Admin Dose 4 MG; Start 11/21/18 at 05:30 Albuterol/ Ipratropium (Duoneb) 3 ml Q2H RESP THERAPY PRN NEB SHORTNESS OF BREATH; Start 11/21/18 at 05:30 Acetaminophen (Tylenol Liquid) 650 mg Q6H PRN PO PAIN LEVEL 1-3 OR FEVER; Start 11/21/18 at 05:30 Amiodarone HCl (Cordarone) 200 mg BID PO Last administered on 11/26/18 08:14; Admin Dose 200 MG; Start 11/21/18 at 09:00; Status Hold Folic Acid (Folic Acid) 1 mg DAILY PO Last administered on 11/26/18 08:14; Admin Dose 1 MG; Start 11/21/18 at 09:00 Levothyroxine Sodium (Synthroid) 75 mcg BEFORE BREAKFAST PO Last administered on 11/26/18 06:01; Admin Dose 75 MCG; Start 11/21/18 at 07:00 Meropenem/Sodium Chloride 50 ml @ 100 mls/hr Q12 IVPB Last administered on 11/26/18 08:14; Admin Dose 100 MLS/HR; Start 11/21/18 at 21:00 Norepinephrine 250 ml @ 1.875 mls/ hr TITRATE IV Last administered on 11/26/18 15:25; Admin Dose 18.75 MLS/HR; Start 11/21/18 at 19:00 Diagnostic Test (Pha) (Accu-Chek) 1 ea Q4 XX Last administered on 11/26/18 13:06; Admin Dose 1 EA; Start 11/22/18 at 21:00 Caspofungin 50 mg/ Sodium Chloride 250 ml @ 250 mls/hr Q24H IVPB Last administered on 11/26/18at 13:42; Admin Dose 250 MLS/HR; Start 11/24/18 at 13:00 Miscellaneous Information 1 ea NOTE XX ; Start 11/23/18 at 13:30 Glucose (Glutose) 15 gm Q15M PRN PO DECREASED GLUCOSE; Start 11/23/18 at 13:30 Glucose (Glutose) 22.5 gm Q15M PRN PO DECREASED GLUCOSE; Start 11/23/18 at 13:30 Dextrose (D50w Syringe) 25 ml Q15M PRN IV DECREASED GLUCOSE Last administered on 11/26/18 01:16; Admin Dose 25 ML; Start 11/23/18 at 13:30 Dextrose (D50w Syringe) 50 ml Q15M PRN IV DECREASED GLUCOSE Last administered on 11/26/18 13:03; Admin Dose 50 ML; Start 11/23/18 at 13:30 Glucagon (Glucagen) 1 mg Q15M PRN IM DECREASED GLUCOSE; Start 11/23/18 at 13:30 Glucose (Glutose) 15 gm Q15M PRN BUCCAL DECREASED GLUCOSE; Start 11/23/18 at 13:30 Propofol 100 ml @ 1.59 mls/hr Q12H IV Last administered on 11/26/18at 04:47; Admin Dose 3.18 MLS/HR; Start 11/24/18 at 00:00 Phenylephrine HCl 80 mg/Dextrose 250 ml @ 18.75 mls/ hr TITRATE IV ; Start 11/24/18 at 00:00 Midazolam HCl 50 ml @ 1 mls/hr TITRATE IV ; Start 11/24/18 at 00:00 Heparin Sodium (Porcine) (Heparin (1000 Units/ml)) 6,300 unit AFTER DIALYSIS CATHETER Last administered on 11/26/18at 16:16; Admin Dose 6,300 UNIT; Start 11/24/18 at 17:30 Sodium Phosphate (Neutra-Phos) 250 mg BID GTB Last administered on 11/26/18at 08:14; Admin Dose 250 MG; Start 11/25/18 at 09:00 Famotidine (Pepcid) 20 mg DAILY PO Last administered on 11/26/18 08:14; Admin Dose 20 MG; Start 11/26/18 at 09:00 Dextrose 1,000 ml @ 30 mls/hr Q24H IV Last administered on 11/25/18at 17:10; Admin Dose 30 MLS/HR; Start 11/25/18 at 16:00 Alteplase, Recombinant (Cathflo (Activase)) 2 mg MAY REPEAT X1 PRN CATHETER IF CATHETER REMAINS OCCULUDED Last administered on 11/26/18at 09:04; Admin Dose 2 MG; Start 11/26/18 at 03:00 Amiodarone HCl 900 mg/Dextrose 500 ml @ 0 mls/hr Q0M IV Last administered on 11/26/18at 09:02; Admin Dose 33.3 MLS/HR; Start 11/26/18 at 09:00 Albumin Human 100 ml @ 100 mls/hr DURING DIALYSIS PRN IV HYPOTENSION DURING HD; Start 11/26/18 at 14:00 Clindamycin HCl/ Dextrose 50 ml @ 50 mls/hr Q8 IVPB Last administered on 11/26/18at 15:21; Admin Dose 50 MLS/HR; Start 11/26/18 at 14:00 JOSLYN LANDRUM MD Nov 26, 2018 16:34
[2018-11-26] MEDS: DEXTROSE 10% 1,000 ML IV SCH (22:21)
[2018-11-27] VITALS (98 sets, daily range): BP systolic 62–134; BP diastolic 45–77; PULSE 63–87; RESP 16–23
[2018-11-27] MEDS: ACCU-CHEK XX SCH ×8 (01:24→21:02)
[2018-11-27] MEDS: NORepinephrine 8MG/250 ML (PMX 250 ML IV SCH ×2 (01:47→15:58)
[2018-11-27] MEDS: CLINDAMYCIN 600 MG/D5W (PMX) 50 ML IVPB SCH ×3 (05:25→21:38)
[2018-11-27] MEDS: AMIODARONE 900 MG in DEXTROSE 5% 482 ML IV SCH (05:25)
[2018-11-27] MEDS: LEVOTHYROXINE 75 MCG TAB PO SCH (06:36)
--- NOTE | 2018-11-27 08:04 | PN ---
DATE: 11/27/2018 SUBJECTIVE: The patient remains critically ill on full ventilatory support, on pressor support. The patient is obtunded. The patient had hemodialysis yesterday with 1 liter removed. No other events noted. OBJECTIVE: VITAL SIGNS: Blood pressure is 100/62, respirations 20, pulse 63, temperature 98.6. I's and O's rev iewed. HEENT: Head is normocephalic. Pupils are reactive to light. NECK: Supple. HEART: Regular rate. LUNGS: Show diminished breath sounds at the base. ABDOMEN: Soft, nontender to palpation. Positive PD catheter. EXTREMITIES: Negative for clubbing, cyanosis. Diffuse anasarca. DERMATOLOGIC: No rashes. MUSCULOSKELETAL: Positive wounds. NEUROLOGIC: The patient is obtunded. MEDICATIONS: The patient's medications have been reviewed. LABORATORY DATA: Reviewed. IMAGING STUDIES: Reviewed. MICROBIOLOGY: Cultures have been reviewed. ASSESSMENT AND PLAN: 1. End-stage renal disease. The patient's access is Perm-A-Cath. We will continue dialysis for sanjeev [place] band clearance and volume removal. Anticipate dialysis again tomorrow. 2. Volume overload with diffuse anasarca secondary to end-stage renal disease, capillary leak, IV fl uids. Continue ultrafiltration with hemodialysis if hemodynamically stable. 3. Septic shock, etiology is secondary to pneumonia and bacteremia. The patient's repeat cultures h ave been negative. Continue pressor support. Continue broad spectrum antibiotics, follow up with in fectious disease for recommendations. 4. Anemia. Continue to monitor hemoglobin and hematocrit levels. Continue Epogen. 5. Hyponatremia. Continue dialysis on a 140 sodium bath. 6. Hypokalemia. Continue to monitor and replete as needed. 7. Mineral bone disorder. The patient is hypocalcemic hypophosphatemic. Continue to monitor. Cont inue dialysis on a high calcium bath. 8. Ventilator-dependent respiratory failure. Vent settings and ABG was reviewed. Continue to monit or. Follow up with pulmonary. 9. Acute encephalopathy, etiology is toxic metabolic. 10. 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 Continue to monitor platelets. The patient is status pos t transfusion. 11. Ascites. Continue to monitor. 12. Hypothyroidism. Continue Synthroid. 13. Lactic acidosis secondary to shock. Continue to trend. 14. Hypomagnesemia. Continue to monitor and replete as needed. Please note, I spent over 30 minutes of critical care time with this patient. Dictated By: SARIKA JOINER DO NR/NTS Conf#: [id number] DID#: [id number] CC: MANDY BATES MD; LORRAINE JOHNSON MD; JOSLYN LANDRUM MD;*End*
[2018-11-27] MEDS: BALSAM PERU/CASTOR OIL 60 GM TUBE TOP SCH ×2 (08:10→20:57)
[2018-11-27] MEDS: FOLIC ACID 1 MG TAB PO SCH (08:10)
[2018-11-27] MEDS: NEUTRA-PHOS 250 MG PACKET GTB SCH ×2 (08:10→20:57)
[2018-11-27] MEDS: FAMOTIDINE 20 MG TAB PO SCH (08:10)
[2018-11-27] MEDS: MEROPENEM 500MG/50 ML (PMX) 50 ML IVPB SCH ×2 (08:11→20:57)
--- NOTE | 2018-11-27 10:35 | CONS ---
Consult Date/Type/Reason Admit Date/Time Nov 21, 2018 at 04:53 Initial Consult Date Type of Consult Pulmonary Date/Time of Note DATE: 11/27/18 TIME: 10:33 Subjective Patient continues mechanical ventilation remains somnolent. Continues vasopressor support and amiodarone drip. Chest x-ray is largely unchanged. She still has significant thrombocytopenia but no active bleeding. Objective Vital Signs Date Temp Pulse Resp B/P (MAP) Pulse Ox O2 O2 Flow FiO2 Time Delivery Rate 11/27/18 81 20 106/63 100 Mechanical 09:45 (77) Ventilator 11/27/18 30 08:00 11/27/18 97.2 07:00 11/23/18 3.0 23:00 Intake and Output 11/26/18 11/26/18 11/27/18 1515:00 23:00 07:00 IntakeIntake Total 1235.5 ml 1310.085 ml 627.085 ml OutputOutput Total 500 ml 2800 ml 0 ml BalanceBalance 735.5 ml -1489.915 ml 627.085 ml Exam GENERAL: Thin cachectic lady on mechanical ventilation VITAL SIGNS: per chart NECK: Supple. No JVD or lymphadenopathy. CARDIAC EXAM: S1, S2. No added sounds or murmurs. CHEST: Diminished air entry bilaterally ABDOMEN: Soft, nontender. No guarding or rebound. EXTREMITIES: No cyanosis, clubbing or edema. NEUROLOGIC: Generalized weakness. Vent Setting Ventilator Support Mode: AC Fraction of Inspired Oxygen pe: 30 Positive End Expiratory Pressu: 5.0 Results/Medications Result Diagram: 11/27/18 0453 11/27/18 0419 Results 24 hrs Laboratory Tests Test 11/26/18 13:01 11/26/18 13:16 11/26/18 13:42 11/26/18 17:34 Bedside Glucose 47 *L 201 122 54 L Test 11/26/18 18:02 11/26/18 18:30 11/26/18 21:43 11/26/18 22:51 Bedside Glucose 122 100 94 85 Test 11/27/18 01:20 11/27/18 03:26 11/27/18 04:19 11/27/18 04:53 Bedside Glucose 83 101 Sodium Level 134 L Potassium Level 3.9 Chloride Level 97 Carbon Dioxide 24 Level Anion Gap 13 Blood Urea 24 H Nitrogen Creatinine 1.08 H Est Glomerular 52 L Filtrat Rate mL/min Glucose Level 85 # Calcium Level 7.8 L Phosphorus Level 3.2 Magnesium Level 1.9 White Blood 7.8 Count Red Blood Count 2.39 L Hemoglobin 7.3 L Hematocrit 21.0 L Mean Corpuscular 87.9 Volume Mean Corpuscular 30.5 Hemoglobin Mean Corpuscular 34.8 Hemoglobin Anh nt Red Cell 17.6 H Distribution Width Platelet Count 7 *L Mean Platelet Volume Immature 0.800 H Granulocytes % Neutrophils % Segmented 81 H Neutrophils % (Manual) Lymphocytes % Lymphocytes % 17 (Manual) Monocytes % Monocytes % 1 (Manual) Eosinophils % Eosinophils % 1 (Manual) Basophils % Nucleated Red 0.0 Blood Cells % Immature 0.060 H Granulocytes # Neutrophils # Lymphocytes 1.3 (Manual) Lymphocytes # Monocytes # Monocytes # 0.0 L (Manual) Eosinophils # Basophils # Nucleated Red Blood Cells # Platelet SIG DECREASED Estimate Giant Platelets 5 H Poikilocytosis 2+ Anisocytosis 1+ Macrocytosis 1+ Test 11/27/18 05:03 11/27/18 05:28 11/27/18 06:40 11/27/18 08:50 Lab Scanned BLOOD TRANSFUSI Report ON Bedside Glucose 94 95 96 Test 11/27/18 10:13 White Blood Pending Count Red Blood Count Pending Hemoglobin Pending Hematocrit Pending Mean Corpuscular Pending Volume Mean Corpuscular Pending Hemoglobin Mean Corpuscular Pending Hemoglobin Anh nt Red Cell Pending Distribution Width Platelet Count Pending Mean Platelet Pending Volume Medications Current Medications Ondansetron HCl (Zofran Inj) 4 mg Q6H PRN IV NAUSEA AND/OR VOMITING Last administered on 11/21/18at 16:50; Admin Dose 4 MG; Start 11/21/18 at 05:30 Albuterol/ Ipratropium (Duoneb) 3 ml Q2H RESP THERAPY PRN NEB SHORTNESS OF BREATH; Start 11/21/18 at 05:30 Acetaminophen (Tylenol Liquid) 650 mg Q6H PRN PO PAIN LEVEL 1-3 OR FEVER; Start 11/21/18 at 05:30 Amiodarone HCl (Cordarone) 200 mg BID PO Last administered on 11/26/18at 08:14; Admin Dose 200 MG; Start 11/21/18 at 09:00; Status Hold Folic Acid (Folic Acid) 1 mg DAILY PO Last administered on 11/27/18at 08:10; Admin Dose 1 MG; Start 11/21/18 at 09:00 Levothyroxine Sodium (Synthroid) 75 mcg BEFORE BREAKFAST PO Last administered on 11/27/18at 06:36; Admin Dose 75 MCG; Start 11/21/18 at 07:00 Meropenem/Sodium Chloride 50 ml @ 100 mls/hr Q12 IVPB Last administered on 11/27/18at 08:11; Admin Dose 100 MLS/HR; Start 11/21/18 at 21:00 Norepinephrine 250 ml @ 1.875 mls/ hr TITRATE IV Last administered on 11/27/18 t 01:47; Admin Dose 16.875 MLS/HR; Start 11/21/18 at 19:00 Caspofungin 50 mg/ Sodium Chloride 250 ml @ 250 mls/hr Q24H IVPB Last administered on 11/26/18at 13:42; Admin Dose 250 MLS/HR; Start 11/24/18 at 13:00 Miscellaneous Information 1 ea NOTE XX ; Start 11/23/18 at 13:30 Glucose (Glutose) 15 gm Q15M PRN PO DECREASED GLUCOSE; Start 11/23/18 at 13:30 Glucose (Glutose) 22.5 gm Q15M PRN PO DECREASED GLUCOSE; Start 11/23/18 at 13:30 Dextrose (D50w Syringe) 25 ml Q15M PRN IV DECREASED GLUCOSE Last administered on 11/26/18at 17:41; Admin Dose 25 ML; Start 11/23/18 at 13:30 Dextrose (D50w Syringe) 50 ml Q15M PRN IV DECREASED GLUCOSE Last administered on 11/26/18at 13:03; Admin Dose 50 ML; Start 11/23/18 at 13:30 Glucagon (Glucagen) 1 mg Q15M PRN IM DECREASED GLUCOSE; Start 11/23/18 at 13:30 Glucose (Glutose) 15 gm Q15M PRN BUCCAL DECREASED GLUCOSE; Start 11/23/18 at 13:30 Propofol 100 ml @ 1.59 mls/hr Q12H IV Last administered on 11/26/18at 22:25; Admin Dose 3.18 MLS/HR; Start 11/24/18 at 00:00 Phenylephrine HCl 80 mg/Dextrose 250 ml @ 18.75 mls/ hr TITRATE IV ; Start 11/24/18 at 00:00 Midazolam HCl 50 ml @ 1 mls/hr TITRATE IV ; Start 11/24/18 at 00:00 Heparin Sodium (Porcine) (Heparin (1000 Units/ml)) 6,300 unit AFTER DIALYSIS CATHETER Last administered on 11/26/18at 16:16; Admin Dose 6,300 UNIT; Start 11/24/18 at 17:30 Sodium Phosphate (Neutra-Phos) 250 mg BID GTB Last administered on 11/27/18 08:10; Admin Dose 250 MG; Start 11/25/18 at 09:00 Famotidine (Pepcid) 20 mg DAILY PO Last administered on 11/27/18 08:10; Admin Dose 20 MG; Start 11/26/18 at 09:00 Dextrose 1,000 ml @ 30 mls/hr Q24H IV Last administered on 11/26/18at 22:21; Admin Dose 30 MLS/HR; Start 11/25/18 at 16:00 Alteplase, Recombinant (Cathflo (Activase)) 2 mg MAY REPEAT X1 PRN CATHETER IF CATHETER REMAINS OCCULUDED Last administered on 11/26/18at 09:04; Admin Dose 2 MG; Start 11/26/18 at 03:00 Amiodarone HCl 900 mg/Dextrose 500 ml @ 0 mls/hr Q0M IV Last administered on 11/27/18 05:25; Admin Dose 16.66 MLS/HR; Start 11/26/18 at 09:00 Albumin Human 100 ml @ 100 mls/hr DURING DIALYSIS PRN IV HYPOTENSION DURING HD; Start 11/26/18 at 14:00 Clindamycin HCl/ Dextrose 50 ml @ 50 mls/hr Q8 IVPB Last administered on 11/27/18 05:25; Admin Dose 50 MLS/HR; Start 11/26/18 at 14:00 Diagnostic Test (Pha) (Accu-Chek) 1 ea Q2 XX Last administered on 11/27/18at 06:40; Admin Dose 1 EA; Start 11/26/18 at 19:00 Assessment/Plan Hospital Course (Demo Recall) Assessment 1. Septic shock likely secondary to pneumonia 2. Acute hypoxemic respiratory failure 3. History of cardiomyopathy 4. Severe thrombocytopenia with anemia no active GI bleeding 5. End-stage renal failure on hemodialysis Plan 1. Consider platelet transfusion 2. Titrate pressors to keep map greater than 65 3. Hold tube feeding 4. Vasopressor support as needed 5. Hemodialysis as tolerated Another long discussion with family at bedside today. Explained that the patient is unlikely to survive this admission in addition she has multiple medical problems which will likely mean that she may not come off mechanical ventilation. Discussed CPR in this frail cachectic lady and explained that CPR would likely result in breaking of her ribs during resuscitation. Family states that patient wants all measures done including CPR if needed. Critical care time 40 minutes. NINA MORRIS MD, [facility] Nov 27, 2018 10:35
[2018-11-27] MEDS: PROPOFOL 100 ML IV SCH ×2 (11:59→20:57)
[2018-11-27] MEDS: CASPOFUNGIN 50 MG in SOD CHLORIDE 0.9% 250 ML IVPB SCH (12:38)
--- NOTE | 2018-11-27 12:50 | CONS ---
Assessment/Plan Assessment/Plan Hospital Course (Demo Recall) No acute changes patient is oversedation,, arousable in no distress, family at bedside. She remains on amiodarone and Levophed drips she is on warming blanket for hypothermia WBC today 12.7 H&H 6.8 and 19.8 platelets 14 BUN 24 creatinine 1.08 Antimicrobials: Clindamycin, Cancidas, meropenem Chest x-ray this morning revealed stable patchy infiltrates throughout both lungs with small pleural effusions Microbiology: Blood culture on admission grew Klebsiella ESBL, repeat blood cultures negative, left thigh wound culture grew Klebsiella ESBL and Leah albicans Chest x-ray revealed increased in patchy infiltrates throughout both lungs with potential small pleural effusions Allergy: Zosyn, vancomycin Indwelling: Right upper thigh Advie catheter, left femoral triple-lumen catheter, endotracheal tube, orogastric tube, midline Physical examination: This is a chronically ill-appearing cachectic middle-aged woman who is laying comfortably in bed. Head atraumatic normocephalic. Neck is supple. Chest rise symmetrical. Breath sounds diminished bases. Heart: S1-S2, irreg. Abdomen distended. Bowel sounds hypoactive. Extremities with bilateral edema, cyanotic, multiple ecchymotic areas and bruises, left upper thigh dressing present is Assessment: 1. Severe sepsis with MSOF 2. Acute hypoxemic respiratory failure secondary to CHF exacerbation/probable pneumonia 3. Klebsiella ESBL bacteremia 4. 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 End-stage renal disease, hemodialysis dependent 6. Atrial fibrillation 7. Unstageable sacral decubitus 8. History of peritoneal dialysis with peritoneal dialysis still in place 9. Ascites status post paracentesis 3 weeks ago 10. Failure to thrive 11. Progressive thrombocytopenia 12. History of permanent pacemaker Plan: Remains hemodynamically unstable, on appropriate antibiotic regimen, continue present care, vent management per pulmonary Consultation Date/Type/Reason Admit Date/Time Nov 21, 2018 at 04:53 Initial Consult Date Type of Consult id Date/Time of Note DATE: 11/27/18 TIME: 12:49 Exam/Review of Systems Exam Vitals Vital Signs Date Temp Pulse Resp B/P (MAP) Pulse Ox O2 O2 Flow FiO2 Time Delivery Rate 11/27/18 84 20 106/69 100 Mechanical 12:30 (81) Ventilator 11/27/18 97.2 12:00 11/27/18 30 08:00 11/23/18 3.0 23:00 Intake and Output 11/26/18 11/26/18 11/27/18 1515:00 23:00 07:00 IntakeIntake Total 1235.5 ml 1310.085 ml 690.620 ml OutputOutput Total 500 ml 2800 ml 0 ml BalanceBalance 735.5 ml -1489.915 ml 690.620 ml Results Result Diagram: 11/27/18 1013 11/27/18 0419 Results 24hrs Laboratory Tests Test 11/26/18 13:01 11/26/18 13:16 11/26/18 13:42 11/26/18 17:34 Bedside Glucose 47 *L 201 122 54 L Test 11/26/18 18:02 11/26/18 18:30 11/26/18 21:43 11/26/18 22:51 Bedside Glucose 122 100 94 85 Test 11/27/18 01:20 11/27/18 03:26 11/27/18 04:19 11/27/18 04:53 Bedside Glucose 83 101 Sodium Level 134 L Potassium Level 3.9 Chloride Level 97 Carbon Dioxide 24 Level Anion Gap 13 Blood Urea 24 H Nitrogen Creatinine 1.08 H Est Glomerular 52 L Filtrat Rate mL/min Glucose Level 85 # Calcium Level 7.8 L Phosphorus Level 3.2 Magnesium Level 1.9 White Blood 7.8 Count Red Blood Count 2.39 L Hemoglobin 7.3 L Hematocrit 21.0 L Mean Corpuscular 87.9 Volume Mean Corpuscular 30.5 Hemoglobin Mean Corpuscular 34.8 Hemoglobin Anh nt Red Cell 17.6 H Distribution Width Platelet Count 7 *L Mean Platelet Volume Immature 0.800 H Granulocytes % Neutrophils % Segmented 81 H Neutrophils % (Manual) Lymphocytes % Lymphocytes % 17 (Manual) Monocytes % Monocytes % 1 (Manual) Eosinophils % Eosinophils % 1 (Manual) Basophils % Nucleated Red 0.0 Blood Cells % Immature 0.060 H Granulocytes # Neutrophils # Lymphocytes 1.3 (Manual) Lymphocytes # Monocytes # Monocytes # 0.0 L (Manual) Eosinophils # Basophils # Nucleated Red Blood Cells # Platelet SIG DECREASED Estimate Giant Platelets 5 H Poikilocytosis 2+ Anisocytosis 1+ Macrocytosis 1+ Test 11/27/18 05:03 11/27/18 05:28 11/27/18 06:40 11/27/18 08:50 Lab Scanned BLOOD TRANSFUSI Report ON Bedside Glucose 94 95 96 Test 11/27/18 10:13 White Blood 12.7 #H Count Red Blood Count 2.25 L Hemoglobin 6.8 *L Hematocrit 19.8 L Mean Corpuscular 88.0 Volume Mean Corpuscular 30.2 Hemoglobin Mean Corpuscular 34.3 Hemoglobin Anh nt Red Cell 17.8 H Distribution Width Platelet Count 14 #*L Mean Platelet 13.8 #H Volume Immature 1.300 H Granulocytes % Neutrophils % Segmented 85 H Neutrophils % (Manual) Lymphocytes % Lymphocytes % 15 (Manual) Monocytes % Eosinophils % Basophils % Nucleated Red 0.0 Blood Cells % Immature 0.160 H Granulocytes # Neutrophils # Lymphocytes 1.9 (Manual) Lymphocytes # Monocytes # Eosinophils # Basophils # Nucleated Red Blood Cells # Platelet SIG DECREASED Estimate Poikilocytosis 1+ Anisocytosis 1+ Macrocytosis 1+ Ovalocytes 1+ Medications Medication Current Medications Ondansetron HCl (Zofran Inj) 4 mg Q6H PRN IV NAUSEA AND/OR VOMITING Last administered on 11/21/18at 16:50; Admin Dose 4 MG; Start 11/21/18 at 05:30 Albuterol/ Ipratropium (Duoneb) 3 ml Q2H RESP THERAPY PRN NEB SHORTNESS OF BREATH; Start 11/21/18 at 05:30 Acetaminophen (Tylenol Liquid) 650 mg Q6H PRN PO PAIN LEVEL 1-3 OR FEVER; Start 11/21/18 at 05:30 Amiodarone HCl (Cordarone) 200 mg BID PO Last administered on 11/26/18at 08:14; Admin Dose 200 MG; Start 11/21/18 at 09:00; Status Hold Folic Acid (Folic Acid) 1 mg DAILY PO Last administered on 11/27/18 08:10; Admin Dose 1 MG; Start 11/21/18 at 09:00 Levothyroxine Sodium (Synthroid) 75 mcg BEFORE BREAKFAST PO Last administered on 11/27/18at 06:36; Admin Dose 75 MCG; Start 11/21/18 at 07:00 Meropenem/Sodium Chloride 50 ml @ 100 mls/hr Q12 IVPB Last administered on 11/27/18at 08:11; Admin Dose 100 MLS/HR; Start 11/21/18 at 21:00 Norepinephrine 250 ml @ 1.875 mls/ hr TITRATE IV Last administered on 11/27/18at 01:47; Admin Dose 16.875 MLS/HR; Start 11/21/18 at 19:00 Caspofungin 50 mg/ Sodium Chloride 250 ml @ 250 mls/hr Q24H IVPB Last administered on 11/27/18at 12:38; Admin Dose 250 MLS/HR; Start 11/24/18 at 13:00 Miscellaneous Information 1 ea NOTE XX ; Start 11/23/18 at 13:30 Glucose (Glutose) 15 gm Q15M PRN PO DECREASED GLUCOSE; Start 11/23/18 at 13:30 Glucose (Glutose) 22.5 gm Q15M PRN PO DECREASED GLUCOSE; Start 11/23/18 at 13:30 Dextrose (D50w Syringe) 25 ml Q15M PRN IV DECREASED GLUCOSE Last administered on 11/26/18at 17:41; Admin Dose 25 ML; Start 11/23/18 at 13:30 Dextrose (D50w Syringe) 50 ml Q15M PRN IV DECREASED GLUCOSE Last administered on 11/26/18at 13:03; Admin Dose 50 ML; Start 11/23/18 at 13:30 Glucagon (Glucagen) 1 mg Q15M PRN IM DECREASED GLUCOSE; Start 11/23/18 at 13:30 Glucose (Glutose) 15 gm Q15M PRN BUCCAL DECREASED GLUCOSE; Start 11/23/18 at 13:30 Propofol 100 ml @ 1.59 mls/hr Q12H IV Last administered on 11/26/18at 22:25; Admin Dose 3.18 MLS/HR; Start 11/24/18 at 00:00 Phenylephrine HCl 80 mg/Dextrose 250 ml @ 18.75 mls/ hr TITRATE IV ; Start 11/24/18 at 00:00 Midazolam HCl 50 ml @ 1 mls/hr TITRATE IV ; Start 11/24/18 at 00:00 Heparin Sodium (Porcine) (Heparin (1000 Units/ml)) 6,300 unit AFTER DIALYSIS CATHETER Last administered on 11/26/18at 16:16; Admin Dose 6,300 UNIT; Start at 17:30 Sodium Phosphate (Neutra-Phos) 250 mg BID GTB Last administered on 11/27/18at 08:10; Admin Dose 250 MG; Start 11/25/18 at 09:00 Famotidine (Pepcid) 20 mg DAILY PO Last administered on 11/27/18at 08:10; Admin Dose 20 MG; Start 11/26/18 at 09:00 Dextrose 1,000 ml @ 30 mls/hr Q24H IV Last administered on 11/26/18at 22:21; Admin Dose 30 MLS/HR; Start 11/25/18 at 16:00 Alteplase, Recombinant (Cathflo (Activase)) 2 mg MAY REPEAT X1 PRN CATHETER IF CATHETER REMAINS OCCULUDED Last administered on 11/26/18at 09:04; Admin Dose 2 MG; Start 11/26/18 at 03:00 Amiodarone HCl 900 mg/Dextrose 500 ml @ 0 mls/hr Q0M IV Last administered on 11/27/18 05:25; Admin Dose 16.66 MLS/HR; Start 11/26/18 at 09:00 Albumin Human 100 ml @ 100 mls/hr DURING DIALYSIS PRN IV HYPOTENSION DURING HD; Start 11/26/18 at 14:00 Clindamycin HCl/ Dextrose 50 ml @ 50 mls/hr Q8 IVPB Last administered on 11/27/18 05:25; Admin Dose 50 MLS/HR; Start 11/26/18 at 14:00 Diagnostic Test (Pha) (Accu-Chek) 1 ea Q4 XX ; Start 11/27/18 at 13:00 KELSIE ELY NP Nov 27, 2018 12:50
--- NOTE | 2018-11-27 15:02 | PN ---
Date/Time of Note Date/Time of Note DATE: 11/27/18 TIME: 15:01 Assessment/Plan VTE Prophylaxis Risk score (from Nsg)>0 risk: 7 SCD applied (from Nsg): Yes Pharmacological prophylaxis: heparin Lines/Catheters IV Catheter Type (from Nrsg): Mid Line Urinary Cath still in place: No Assessment/Plan Hospital Course Intubated sedated Chronically ill appearing Lungs clear Distended belly, firm masses Peripheral edema present LUE wound wrapped 58 yo female with ESRD, cirrohsihs, DMII presents with hypoglycemia, leg infection. Suffered cardiac and respiratory arrest, now intubated Cardiac arrest, acute respiratory failure: - Continue vasopressors and mechanical ventilation per pulmonary - Goals of care discussions with family Severe hypoglycemia: No history of diabetes and patient not on any insulin or sulfonylurea or any other diabetic medication -This could be from decreased p.o. intake and liver dysfunction from HCO -Ultrasound of the liver to evaluate for cirrhosis and/or fatty liver -Hypoglycemic protocol Left lower extremity wound and pitting edema: Patient had a graft in that leg, which was infected -She was admitted for 2 weeks at [facility], where she had procedure. Her son, which was found to have fungus in her wound for which she was given fluconazole - Antibiotics per ID -Venous study was negative for DVT -Wound care consult A Fib: - Amiodarone ESRD with fluid overload - HD per nephrology Pancytopenia with coagulopathy, thrombocytopenia: Patient had workup here during recent hospitalization. -Thrombocytopenia was thought to be secondary to HIT but may be related to liver disease -Per son, patient did receive platelet transfusion at [facility] -Picture of pancytopenia with macrocytic anemia and coagulopathy does appear consistent with liver disease, await liver ultrasound Hypothyroidism: Continue Synthroid History of pacemaker: No acute issue Ascites secondary to fluid overload and/or liver disease: Status post paracentesis 3 weeks ago with removal of 4.5 L - s/p paracentesis, in addition patient's blood pressure is low 11. Chronic peritoneal dialysis: This is not being used. Not being removed because of the severe thrombocytopenia. This can be addressed at [facility] where she usually gets her care 12. Failure to thrive: Patient is very cachectic -Nutrition consult Prophylaxis: SCDs DC planning: Poor prognosis. Continue goals of care discussions with family. So far unwilling to consider withdrawal of care. Very upset to be asked about it and don't want us to bring it up again Result Diagram: 11/27/18 1013 11/27/18 0419 Results 24hrs Laboratory Tests Test 11/26/18 17:34 11/26/18 18:02 11/26/18 18:30 11/26/18 21:43 Bedside Glucose 54 L 122 100 94 Test 11/26/18 22:51 11/27/18 01:20 11/27/18 03:26 11/27/18 04:19 Bedside Glucose 85 83 101 Sodium Level 134 L Potassium Level 3.9 Chloride Level 97 Carbon Dioxide 24 Level Anion Gap 13 Blood Urea 24 H Nitrogen Creatinine 1.08 H Est Glomerular 52 L Filtrat Rate mL/min Glucose Level 85 # Calcium Level 7.8 L Phosphorus Level 3.2 Magnesium Level 1.9 Test 11/27/18 04:53 11/27/18 05:03 11/27/18 05:28 11/27/18 06:40 White Blood 7.8 Count Red Blood Count 2.39 L Hemoglobin 7.3 L Hematocrit 21.0 L Mean Corpuscular 87.9 Volume Mean Corpuscular 30.5 Hemoglobin Mean Corpuscular 34.8 Hemoglobin Anh nt Red Cell 17.6 H Distribution Width Platelet Count 7 *L Mean Platelet Volume Immature 0.800 H Granulocytes % Neutrophils % Segmented 81 H Neutrophils % (Manual) Lymphocytes % Lymphocytes % 17 (Manual) Monocytes % Monocytes % 1 (Manual) Eosinophils % Eosinophils % 1 (Manual) Basophils % Nucleated Red 0.0 Blood Cells % Immature 0.060 H Granulocytes # Neutrophils # Lymphocytes 1.3 (Manual) Lymphocytes # Monocytes # Monocytes # 0.0 L (Manual) Eosinophils # Basophils # Nucleated Red Blood Cells # Platelet SIG DECREASED Estimate Giant Platelets 5 H Poikilocytosis 2+ Anisocytosis 1+ Macrocytosis 1+ Lab Scanned BLOOD TRANSFUSI Report ON Bedside Glucose 94 95 Test 11/27/18 08:50 11/27/18 10:13 11/27/18 12:38 Bedside Glucose 96 84 White Blood 12.7 #H Count Red Blood Count 2.25 L Hemoglobin 6.8 *L Hematocrit 19.8 L Mean Corpuscular 88.0 Volume Mean Corpuscular 30.2 Hemoglobin Mean Corpuscular 34.3 Hemoglobin Anh nt Red Cell 17.8 H Distribution Width Platelet Count 14 #*L Mean Platelet 13.8 #H Volume Immature 1.300 H Granulocytes % Neutrophils % Segmented 85 H Neutrophils % (Manual) Lymphocytes % Lymphocytes % 15 (Manual) Monocytes % Eosinophils % Basophils % Nucleated Red 0.0 Blood Cells % Immature 0.160 H Granulocytes # Neutrophils # Lymphocytes 1.9 (Manual) Lymphocytes # Monocytes # Eosinophils # Basophils # Nucleated Red Blood Cells # Platelet SIG DECREASED Estimate Poikilocytosis 1+ Anisocytosis 1+ Macrocytosis 1+ Ovalocytes 1+ Subjective 24 Hr Interval Summary Free Text/Dictation No change to status Remains intubated, sedated, on pressors Exam/Review of Systems Exam Vitals Vital Signs Date Temp Pulse Resp B/P (MAP) Pulse Ox O2 O2 Flow FiO2 Time Delivery Rate 11/27/18 83 21 105/61 100 Mechanical 13:00 (76) Ventilator 11/27/18 97.2 12:00 11/27/18 30 08:00 11/23/18 3.0 23:00 Intake and Output 11/26/18 11/26/18 11/27/18 1515:00 23:00 07:00 IntakeIntake Total 1235.5 ml 1310.085 ml 690.620 ml OutputOutput Total 500 ml 2800 ml 0 ml BalanceBalance 735.5 ml -1489.915 ml 690.620 ml Results Results 24hrs Laboratory Tests Test 11/26/18 17:34 11/26/18 18:02 11/26/18 18:30 11/26/18 21:43 Bedside Glucose 54 L 122 100 94 Test 11/26/18 22:51 11/27/18 01:20 11/27/18 03:26 11/27/18 04:19 Bedside Glucose 85 83 101 Sodium Level 134 L Potassium Level 3.9 Chloride Level 97 Carbon Dioxide 24 Level Anion Gap 13 Blood Urea 24 H Nitrogen Creatinine 1.08 H Est Glomerular 52 L Filtrat Rate mL/min Glucose Level 85 # Calcium Level 7.8 L Phosphorus Level 3.2 Magnesium Level 1.9 Test 11/27/18 04:53 11/27/18 05:03 11/27/18 05:28 11/27/18 06:40 White Blood 7.8 Count Red Blood Count 2.39 L Hemoglobin 7.3 L Hematocrit 21.0 L Mean Corpuscular 87.9 Volume Mean Corpuscular 30.5 Hemoglobin Mean Corpuscular 34.8 Hemoglobin Anh nt Red Cell 17.6 H Distribution Width Platelet Count 7 *L Mean Platelet Volume Immature 0.800 H Granulocytes % Neutrophils % Segmented 81 H Neutrophils % (Manual) Lymphocytes % Lymphocytes % 17 (Manual) Monocytes % Monocytes % 1 (Manual) Eosinophils % Eosinophils % 1 (Manual) Basophils % Nucleated Red 0.0 Blood Cells % Immature 0.060 H Granulocytes # Neutrophils # Lymphocytes 1.3 (Manual) Lymphocytes # Monocytes # Monocytes # 0.0 L (Manual) Eosinophils # Basophils # Nucleated Red Blood Cells # Platelet SIG DECREASED Estimate Giant Platelets 5 H Poikilocytosis 2+ Anisocytosis 1+ Macrocytosis 1+ Lab Scanned BLOOD TRANSFUSI Report ON Bedside Glucose 94 95 Test 11/27/18 08:50 11/27/18 10:13 11/27/18 12:38 Bedside Glucose 96 84 White Blood 12.7 #H Count Red Blood Count 2.25 L Hemoglobin 6.8 *L Hematocrit 19.8 L Mean Corpuscular 88.0 Volume Mean Corpuscular 30.2 Hemoglobin Mean Corpuscular 34.3 Hemoglobin Anh nt Red Cell 17.8 H Distribution Width Platelet Count 14 #*L Mean Platelet 13.8 #H Volume Immature 1.300 H Granulocytes % Neutrophils % Segmented 85 H Neutrophils % (Manual) Lymphocytes % Lymphocytes % 15 (Manual) Monocytes % Eosinophils % Basophils % Nucleated Red 0.0 Blood Cells % Immature 0.160 H Granulocytes # Neutrophils # Lymphocytes 1.9 (Manual) Lymphocytes # Monocytes # Eosinophils # Basophils # Nucleated Red Blood Cells # Platelet SIG DECREASED Estimate Poikilocytosis 1+ Anisocytosis 1+ Macrocytosis 1+ Ovalocytes 1+ Medications Medication Current Medications Ondansetron HCl (Zofran Inj) 4 mg Q6H PRN IV NAUSEA AND/OR VOMITING Last administered on 11/21/18at 16:50; Admin Dose 4 MG; Start 11/21/18 at 05:30 Albuterol/ Ipratropium (Duoneb) 3 ml Q2H RESP THERAPY PRN NEB SHORTNESS OF BREATH; Start 11/21/18 at 05:30 Acetaminophen (Tylenol Liquid) 650 mg Q6H PRN PO PAIN LEVEL 1-3 OR FEVER; Start 11/21/18 at 05:30 Amiodarone HCl (Cordarone) 200 mg BID PO Last administered on 11/26/18at 08:14; Admin Dose 200 MG; Start 11/21/18 at 09:00; Status Hold Folic Acid (Folic Acid) 1 mg DAILY PO Last administered on 11/27/18at 08:10; Admin Dose 1 MG; Start 11/21/18 at 09:00 Levothyroxine Sodium (Synthroid) 75 mcg BEFORE BREAKFAST PO Last administered on 11/27/18at 06:36; Admin Dose 75 MCG; Start 11/21/18 at 07:00 Meropenem/Sodium Chloride 50 ml @ 100 mls/hr Q12 IVPB Last administered on 11/27/18at 08:11; Admin Dose 100 MLS/HR; Start 11/21/18 at 21:00 Norepinephrine 250 ml @ 1.875 mls/ hr TITRATE IV Last administered on 11/27/18at 01:47; Admin Dose 16.875 MLS/HR; Start 11/21/18 at 19:00 Caspofungin 50 mg/ Sodium Chloride 250 ml @ 250 mls/hr Q24H IVPB Last administered on 11/27/18at 12:38; Admin Dose 250 MLS/HR; Start 11/24/18 at 13:00 Miscellaneous Information 1 ea NOTE XX ; Start 11/23/18 at 13:30 Glucose (Glutose) 15 gm Q15M PRN PO DECREASED GLUCOSE; Start 11/23/18 at 13:30 Glucose (Glutose) 22.5 gm Q15M PRN PO DECREASED GLUCOSE; Start 11/23/18 at 13:30 Dextrose (D50w Syringe) 25 ml Q15M PRN IV DECREASED GLUCOSE Last administered on 11/26/18at 17:41; Admin Dose 25 ML; Start 11/23/18 at 13:30 Dextrose (D50w Syringe) 50 ml Q15M PRN IV DECREASED GLUCOSE Last administered on 11/26/18at 13:03; Admin Dose 50 ML; Start 11/23/18 at 13:30 Glucagon (Glucagen) 1 mg Q15M PRN IM DECREASED GLUCOSE; Start 11/23/18 at 13:30 Glucose (Glutose) 15 gm Q15M PRN BUCCAL DECREASED GLUCOSE; Start 11/23/18 at 13:30 Propofol 100 ml @ 1.59 mls/hr Q12H IV Last administered on 11/26/18at 22:25; Admin Dose 3.18 MLS/HR; Start 11/24/18 at 00:00 Phenylephrine HCl 80 mg/Dextrose 250 ml @ 18.75 mls/ hr TITRATE IV ; Start 11/24/18 at 00:00 Midazolam HCl 50 ml @ 1 mls/hr TITRATE IV ; Start 11/24/18 at 00:00 Heparin Sodium (Porcine) (Heparin (1000 Units/ml)) 6,300 unit AFTER DIALYSIS CATHETER Last administered on 11/26/18at 16:16; Admin Dose 6,300 UNIT; Start 11/24/18 at 17:30 Sodium Phosphate (Neutra-Phos) 250 mg BID GTB Last administered on 11/27/18 08:10; Admin Dose 250 MG; Start 11/25/18 at 09:00 Famotidine (Pepcid) 20 mg DAILY PO Last administered on 11/27/18 08:10; Admin Dose 20 MG; Start 11/26/18 at 09:00 Dextrose 1,000 ml @ 30 mls/hr Q24H IV Last administered on 11/26/18at 22:21; Admin Dose 30 MLS/HR; Start 11/25/18 at 16:00 Alteplase, Recombinant (Cathflo (Activase)) 2 mg MAY REPEAT X1 PRN CATHETER IF CATHETER REMAINS OCCULUDED Last administered on 11/26/18at 09:04; Admin Dose 2 MG; Start 11/26/18 at 03:00 Amiodarone HCl 900 mg/Dextrose 500 ml @ 0 mls/hr Q0M IV Last administered on 11/27/18 05:25; Admin Dose 16.66 MLS/HR; Start 11/26/18 at 09:00 Albumin Human 100 ml @ 100 mls/hr DURING DIALYSIS PRN IV HYPOTENSION DURING HD; Start 11/26/18 at 14:00 Clindamycin HCl/ Dextrose 50 ml @ 50 mls/hr Q8 IVPB Last administered on 11/27/18at 14:07; Admin Dose 50 MLS/HR; Start 11/26/18 at 14:00 Diagnostic Test (Pha) (Accu-Chek) 1 ea Q4 XX ; Start 11/27/18 at 13:00 JOSLYN LANDRUM MD Nov 27, 2018 15:02
[2018-11-27] MEDS: DEXTROSE 10% 1,000 ML IV SCH (15:34)
[2018-11-28] VITALS (103 sets, daily range): BP systolic 44–160; BP diastolic 31–110; PULSE 52–106; RESP 18–27
[2018-11-28] MEDS: ACCU-CHEK XX SCH ×6 (01:00→21:01)
[2018-11-28] MEDS: DEXTROSE 10% 1,000 ML IV SCH ×2 (02:05→15:26)
[2018-11-28] MEDS: AMIODARONE 900 MG in DEXTROSE 5% 482 ML IV SCH (05:03)
[2018-11-28] MEDS: CLINDAMYCIN 600 MG/D5W (PMX) 50 ML IVPB SCH ×3 (06:31→22:50)
[2018-11-28] MEDS: LEVOTHYROXINE 75 MCG TAB PO SCH (06:31)
[2018-11-28] MEDS: NEUTRA-PHOS 250 MG PACKET GTB SCH ×2 (08:16→21:00)
[2018-11-28] MEDS: BALSAM PERU/CASTOR OIL 60 GM TUBE TOP SCH ×2 (08:17→21:01)
[2018-11-28] MEDS: MEROPENEM 500MG/50 ML (PMX) 50 ML IVPB SCH ×2 (08:17→21:00)
[2018-11-28] MEDS: FOLIC ACID 1 MG TAB PO SCH (08:17)
[2018-11-28] MEDS: FAMOTIDINE 20 MG TAB PO SCH (08:17)
[2018-11-28] MEDS: NORepinephrine 8MG/250 ML (PMX 250 ML IV SCH ×2 (09:18→22:43)
--- NOTE | 2018-11-28 10:10 | CONS ---
Consult Date/Type/Reason Admit Date/Time Nov 21, 2018 at 04:53 Initial Consult Date Type of Consult Pulmonary Date/Time of Note DATE: 11/28/18 TIME: 10:09 Subjective Patient stable this morning. Continues vasopressor support and mechanical ventilation. Having hemodialysis. Objective Vital Signs Date Temp Pulse Resp B/P (MAP) Pulse Ox O2 O2 Flow FiO2 Time Delivery Rate 11/28/18 57 20 72/45 (54) 99 Mechanical 10:00 Ventilator 11/28/18 30 07:50 11/28/18 97.0 07:00 Intake and Output 11/27/18 11/27/18 11/28/18 1515:00 23:00 07:00 IntakeIntake Total 1190.530 ml 710.540 ml 890.595 ml BalanceBalance 1190.530 ml 710.540 ml 890.595 ml Exam GENERAL: Thin cachectic lady on mechanical ventilation VITAL SIGNS: per chart NECK: Supple. No JVD or lymphadenopathy. CARDIAC EXAM: S1, S2. No added sounds or murmurs. CHEST: Diminished air entry bilaterally ABDOMEN: Soft, nontender. No guarding or rebound. EXTREMITIES: No cyanosis, clubbing or edema. NEUROLOGIC: Generalized weakness. Vent Setting Ventilator Support Mode: AC Fraction of Inspired Oxygen pe: 30 Positive End Expiratory Pressu: 5.0 Results/Medications Result Diagram: 11/28/18 0415 11/28/18 0415 Results 24 hrs Laboratory Tests Test 11/27/18 10:13 11/27/18 12:38 11/27/18 17:00 11/27/18 21:01 White Blood 12.7 #H Count Red Blood Count 2.25 L Hemoglobin 6.8 *L Hematocrit 19.8 L Mean Corpuscular 88.0 Volume Mean Corpuscular 30.2 Hemoglobin Mean Corpuscular 34.3 Hemoglobin Anh nt Red Cell 17.8 H Distribution Width Platelet Count 14 #*L Mean Platelet 13.8 #H Volume Immature 1.300 H Granulocytes % Neutrophils % Segmented 85 H Neutrophils % (Manual) Lymphocytes % Lymphocytes % 15 (Manual) Monocytes % Eosinophils % Basophils % Nucleated Red 0.0 Blood Cells % Immature 0.160 H Granulocytes # Neutrophils # Lymphocytes 1.9 (Manual) Lymphocytes # Monocytes # Eosinophils # Basophils # Nucleated Red Blood Cells # Platelet SIG DECREASED Estimate Poikilocytosis 1+ Anisocytosis 1+ Macrocytosis 1+ Ovalocytes 1+ Bedside Glucose 84 71 73 Test 11/28/18 01:31 11/28/18 04:15 11/28/18 05:00 11/28/18 05:04 Bedside Glucose 74 80 White Blood 8.6 # Count Red Blood Count 2.09 L Hemoglobin 6.4 *L Hematocrit 18.3 L Mean Corpuscular 87.6 Volume Mean Corpuscular 30.6 Hemoglobin Mean Corpuscular 35.0 Hemoglobin Anh nt Red Cell 17.7 H Distribution Width Platelet Count 34 #L Mean Platelet 10.6 #H Volume Immature 1.400 H Granulocytes % Neutrophils % Segmented 80 H Neutrophils % (Manual) Lymphocytes % Lymphocytes % 17 (Manual) Monocytes % Monocytes % 1 (Manual) Eosinophils % Basophils % Myelocytes % 1 H (Manual) Plasma Cells % 1 (manual) Nucleated Red 0.0 Blood Cells % Immature 0.120 H Granulocytes # Neutrophils # Lymphocytes 1.4 (Manual) Lymphocytes # Monocytes # Monocytes # 0.0 L (Manual) Eosinophils # Basophils # Myelocytes # 0.0 Plasma Cells # 0.0 (manual) Nucleated Red Blood Cells # Platelet DECREASED Estimate Polychromasia 1+ Hypochromasia 3+ Poikilocytosis 2+ Anisocytosis 2+ Target Cells 1+ Ovalocytes 1+ Acanthocytes 1+ Sodium Level 131 L Potassium Level 4.1 Chloride Level 95 L Carbon Dioxide 23 Level Anion Gap 13 Blood Urea 37 #H Nitrogen Creatinine 1.36 H Est Glomerular 40 L Filtrat Rate mL/min Glucose Level 62 #L Calcium Level 7.7 L Phosphorus Level 4.5 Magnesium Level 1.8 Lab Scanned BLOOD TRANSFUSI Report ON Test 11/28/18 08:19 Bedside Glucose 70 Medications Current Medications Ondansetron HCl (Zofran Inj) 4 mg Q6H PRN IV NAUSEA AND/OR VOMITING Last a dministered on 11/21/18at 16:50; Admin Dose 4 MG; Start 11/21/18 at 05:30 Albuterol/ Ipratropium (Duoneb) 3 ml Q2H RESP THERAPY PRN NEB SHORTNESS OF BREATH; Start 11/21/18 at 05:30 Acetaminophen (Tylenol Liquid) 650 mg Q6H PRN PO PAIN LEVEL 1-3 OR FEVER; Start 11/21/18 at 05:30 Amiodarone HCl (Cordarone) 200 mg BID PO Last administered on 11/26/18 08:14; Admin Dose 200 MG; Start 11/21/18 at 09:00; Status Hold Folic Acid (Folic Acid) 1 mg DAILY PO Last administered on 11/28/18 08:17; Admin Dose 1 MG; Start 11/21/18 at 09:00 Levothyroxine Sodium (Synthroid) 75 mcg BEFORE BREAKFAST PO Last administered on 11/28/18 06:31; Admin Dose 75 MCG; Start 11/21/18 at 07:00 Meropenem/Sodium Chloride 50 ml @ 100 mls/hr Q12 IVPB Last administered on 11/28/18 08:17; Admin Dose 100 MLS/HR; Start 11/21/18 at 21:00 Norepinephrine 250 ml @ 1.875 mls/ hr TITRATE IV Last administered on 11/28/18 09:18; Admin Dose 13.125 MLS/HR; Start 11/21/18 at 19:00 Caspofungin 50 mg/ Sodium Chloride 250 ml @ 250 mls/hr Q24H IVPB Last administered on 11/27/18at 12:38; Admin Dose 250 MLS/HR; Start 11/24/18 at 13:00 Miscellaneous Information 1 ea NOTE XX ; Start 11/23/18 at 13:30 Glucose (Glutose) 15 gm Q15M PRN PO DECREASED GLUCOSE; Start 11/23/18 at 13:30 Glucose (Glutose) 22.5 gm Q15M PRN PO DECREASED GLUCOSE; Start 11/23/18 at 13:30 Dextrose (D50w Syringe) 25 ml Q15M PRN IV DECREASED GLUCOSE Last administered on 11/26/18at 17:41; Admin Dose 25 ML; Start 11/23/18 at 13:30 Dextrose (D50w Syringe) 50 ml Q15M PRN IV DECREASED GLUCOSE Last administered on 11/26/18at 13:03; Admin Dose 50 ML; Start 11/23/18 at 13:30 Glucagon (Glucagen) 1 mg Q15M PRN IM DECREASED GLUCOSE; Start 11/23/18 at 13:30 Glucose (Glutose) 15 gm Q15M PRN BUCCAL DECREASED GLUCOSE; Start 11/23/18 at 13:30 Propofol 100 ml @ 1.59 mls/hr Q12H IV Last administered on 11/27/18at 20:57; Admin Dose 3.18 MLS/HR; Start 11/24/18 at 00:00 Phenylephrine HCl 80 mg/Dextrose 250 ml @ 18.75 mls/ hr TITRATE IV ; Start 11/24/18 at 00:00 Midazolam HCl 50 ml @ 1 mls/hr TITRATE IV ; Start 11/24/18 at 00:00 Heparin Sodium (Porcine) (Heparin (1000 Units/ml)) 6,300 unit AFTER DIALYSIS CATHETER Last administered on 11/26/18 16:16; Admin Dose 6,300 UNIT; Start 11/24/18 at 17:30 Sodium Phosphate (Neutra-Phos) 250 mg BID GTB Last administered on 11/28/18 08:16; Admin Dose 250 MG; Start 11/25/18 at 09:00 Famotidine (Pepcid) 20 mg DAILY PO Last administered on 11/28/18 08:17; Admin Dose 20 MG; Start 11/26/18 at 09:00 Dextrose 1,000 ml @ 30 mls/hr Q24H IV Last administered on 11/28/18 02:05; Admin Dose 30 MLS/HR; Start 11/25/18 at 16:00 Alteplase, Recombinant (Cathflo (Activase)) 2 mg MAY REPEAT X1 PRN CATHETER IF CATHETER REMAINS OCCULUDED Last administered on 11/26/18 09:04; Admin Dose 2 MG; Start 11/26/18 at 03:00 Amiodarone HCl 900 mg/Dextrose 500 ml @ 0 mls/hr Q0M IV Last administered on 11/28/18 05:03; Admin Dose 16.66 MLS/HR; Start 11/26/18 at 09:00 Albumin Human 100 ml @ 100 mls/hr DURING DIALYSIS PRN IV HYPOTENSION DURING HD; Start 11/26/18 at 14:00 Clindamycin HCl/ Dextrose 50 ml @ 50 mls/hr Q8 IVPB Last administered on 11/28/18 06:31; Admin Dose 50 MLS/HR; Start 11/26/18 at 14:00 Diagnostic Test (Pha) (Accu-Chek) 1 ea Q4 XX Last administered on 11/28/18 05:04; Admin Dose 1 EA; Start 11/27/18 at 13:00 Assessment/Plan Hospital Course (Demo Recall) assessment 1. Septic shock likely secondary to pneumonia 2. Acute hypoxemic respiratory failure 3. History of cardiomyopathy 4. Severe thrombocytopenia with anemia no active GI bleeding 5. End-stage renal failure on hemodialysis Plan 1. Agree with packed red cell blood transfusion. 2. Titrate pressors to keep map greater than 65 3. Hold tube feeding 4. Vasopressor support as needed 5. Hemodialysis as tolerated Prognosis remains extremely poor. Critical care time 40 minutes. NINA MORRIS MD, [facility] Nov 28, 2018 10:10
--- NOTE | 2018-11-28 10:11 | CONS ---
Assessment/Plan Assessment/Plan Assessment/Plan (Daily) 1. End-stage renal disease. The patient's access is Perm-A-Cath. We will continue dialysis for solute clearance and volume removal. HD today. 2. Volume overload with diffuse anasarca secondary to end-stage renal disease, capillary leak, IV fluids. Continue ultrafiltration with hemodialysis if h emodynamically stable. 3. Septic shock, etiology is secondary to pneumonia and bacteremia. The pat ient's repeat cultures have been negative. Continue pressor support. Continue broad spectrum antibiotics, follow up with infectious disease for recommendations. 4. Anemia. Continue to monitor hemoglobin and hematocrit levels. Continue Epogen. prbc per IM if needed 5. Hyponatremia. Continue dialysis on a 140 sodium bath. 6. Hypokalemia. Continue to monitor and replete as needed. 7. Mineral bone disorder. The patient is hypocalcemic hypophosphatemic. Continue to monitor. Continue dialysis on a high calcium bath. 8. Ventilator-dependent respiratory failure. Vent settings and ABG was reviewed. Continue to monitor. Follow up with pulmonary. 9. Acute encephalopathy, etiology is toxic metabolic. 10. 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 Continue to monitor platelets. The patient is status post transfusion. 11. Ascites. Continue to monitor. 12. Hypothyroidism. Continue Synthroid. 13. Lactic acidosis secondary to shock. Continue to trend. 14. Hypomagnesemia. Continue to monitor and replete as needed. Consultation Date/Type/Reason Admit Date/Time Nov 21, 2018 at 04:53 Initial Consult Date Date/Time of Note DATE: 11/28/18 TIME: 10:10 24 HR Interval Summary Free Text/Dictation pt is on amio gtt and levophed gtt remains intubated d/w rn gen obtunded cv rrr pulm ctab abd soft, nd, nt +bs ext: no edema Exam/Review of Systems Exam Vitals Vital Signs Date Temp Pulse Resp B/P (MAP) Pulse Ox O2 O2 Flow FiO2 Time Delivery Rate 11/28/18 57 20 72/45 (54) 99 Mechanical 10:00 Ventilator 11/28/18 30 07:50 11/28/18 97.0 07:00 Intake and Output 11/27/18 11/27/18 11/28/18 1515:00 23:00 07:00 IntakeIntake Total 1190.530 ml 710.540 ml 890.595 ml BalanceBalance 1190.530 ml 710.540 ml 890.595 ml Results Result Diagram: 11/28/18 0415 11/28/18 0415 Results 24hrs Laboratory Tests Test 11/27/18 10:13 11/27/18 12:38 11/27/18 17:00 11/27/18 21:01 White Blood 12.7 #H Count Red Blood Count 2.25 L Hemoglobin 6.8 *L Hematocrit 19.8 L Mean Corpuscular 88.0 Volume Mean Corpuscular 30.2 Hemoglobin Mean Corpuscular 34.3 Hemoglobin Anh nt Red Cell 17.8 H Distribution Width Platelet Count 14 #*L Mean Platelet 13.8 #H Volume Immature 1.300 H Granulocytes % Neutrophils % Segmented 85 H Neutrophils % (Manual) Lymphocytes % Lymphocytes % 15 (Manual) Monocytes % Eosinophils % Basophils % Nucleated Red 0.0 Blood Cells % Immature 0.160 H Granulocytes # Neutrophils # Lymphocytes 1.9 (Manual) Lymphocytes # Monocytes # Eosinophils # Basophils # Nucleated Red Blood Cells # Platelet SIG DECREASED Estimate Poikilocytosis 1+ Anisocytosis 1+ Macrocytosis 1+ Ovalocytes 1+ Bedside Glucose 84 71 73 Test 11/28/18 01:31 11/28/18 04:15 11/28/18 05:00 11/28/18 05:04 Bedside Glucose 74 80 White Blood 8.6 # Count Red Blood Count 2.09 L Hemoglobin 6.4 *L Hematocrit 18.3 L Mean Corpuscular 87.6 Volume Mean Corpuscular 30.6 Hemoglobin Mean Corpuscular 35.0 Hemoglobin Anh nt Red Cell 17.7 H Distribution Width Platelet Count 34 #L Mean Platelet 10.6 #H Volume Immature 1.400 H Granulocytes % Neutrophils % Segmented 80 H Neutrophils % (Manual) Lymphocytes % Lymphocytes % 17 (Manual) Monocytes % Monocytes % 1 (Manual) Eosinophils % Basophils % Myelocytes % 1 H (Manual) Plasma Cells % 1 (manual) Nucleated Red 0.0 Blood Cells % Immature 0.120 H Granulocytes # Neutrophils # Lymphocytes 1.4 (Manual) Lymphocytes # Monocytes # Monocytes # 0.0 L (Manual) Eosinophils # Basophils # Myelocytes # 0.0 Plasma Cells # 0.0 (manual) Nucleated Red Blood Cells # Platelet DECREASED Estimate Polychromasia 1+ Hypochromasia 3+ Poikilocytosis 2+ Anisocytosis 2+ Target Cells 1+ Ovalocytes 1+ Acanthocytes 1+ Sodium Level 131 L Potassium Level 4.1 Chloride Level 95 L Carbon Dioxide 23 Level Anion Gap 13 Blood Urea 37 #H Nitrogen Creatinine 1.36 H Est Glomerular 40 L Filtrat Rate mL/min Glucose Level 62 #L Calcium Level 7.7 L Phosphorus Level 4.5 Magnesium Level 1.8 Lab Scanned BLOOD TRANSFUSI Report ON Test 11/28/18 08:19 Bedside Glucose 70 Medications Medication Current Medications Ondansetron HCl (Zofran Inj) 4 mg Q6H PRN IV NAUSEA AND/OR VOMITING Last administered on 11/21/18 16:50; Admin Dose 4 MG; Start 11/21/18 at 05:30 Albuterol/ Ipratropium (Duoneb) 3 ml Q2H RESP THERAPY PRN NEB SHORTNESS OF BREATH; Start 11/21/18 at 05:30 Acetaminophen (Tylenol Liquid) 650 mg Q6H PRN PO PAIN LEVEL 1-3 OR FEVER; Start 11/21/18 at 05:30 Amiodarone HCl (Cordarone) 200 mg BID PO Last administered on 11/26/18at 08:14; Admin Dose 200 MG; Start 11/21/18 at 09:00; Status Hold Folic Acid (Folic Acid) 1 mg DAILY PO Last administered on 11/28/18 08:17; Admin Dose 1 MG; Start 11/21/18 at 09:00 Levothyroxine Sodium (Synthroid) 75 mcg BEFORE BREAKFAST PO Last administered on 11/28/18 06:31; Admin Dose 75 MCG; Start 11/21/18 at 07:00 Meropenem/Sodium Chloride 50 ml @ 100 mls/hr Q12 IVPB Last administered on 11/28/18 08:17; Admin Dose 100 MLS/HR; Start 11/21/18 at 21:00 Norepinephrine 250 ml @ 1.875 mls/ hr TITRATE IV Last administered on 11/28/18 09:18; Admin Dose 13.125 MLS/HR; Start 11/21/18 at 19:00 Caspofungin 50 mg/ Sodium Chloride 250 ml @ 250 mls/hr Q24H IVPB Last administered on 11/27/18at 12:38; Admin Dose 250 MLS/HR; Start 11/24/18 at 13:00 Miscellaneous Information 1 ea NOTE XX ; Start 11/23/18 at 13:30 Glucose (Glutose) 15 gm Q15M PRN PO DECREASED GLUCOSE; Start 11/23/18 at 13:30 Glucose (Glutose) 22.5 gm Q15M PRN PO DECREASED GLUCOSE; Start 11/23/18 at 13:30 Dextrose (D50w Syringe) 25 ml Q15M PRN IV DECREASED GLUCOSE Last administered on 11/26/18at 17:41; Admin Dose 25 ML; Start 11/23/18 at 13:30 Dextrose (D50w Syringe) 50 ml Q15M PRN IV DECREASED GLUCOSE Last administered on 11/26/18at 13:03; Admin Dose 50 ML; Start 11/23/18 at 13:30 Glucagon (Glucagen) 1 mg Q15M PRN IM DECREASED GLUCOSE; Start 11/23/18 at 13:30 Glucose (Glutose) 15 gm Q15M PRN BUCCAL DECREASED GLUCOSE; Start 11/23/18 at 13:30 Propofol 100 ml @ 1.59 mls/hr Q12H IV Last administered on 11/27/18at 20:57; Admin Dose 3.18 MLS/HR; Start 11/24/18 at 00:00 Phenylephrine HCl 80 mg/Dextrose 250 ml @ 18.75 mls/ hr TITRATE IV ; Start 11/24/18 at 00:00 Midazolam HCl 50 ml @ 1 mls/hr TITRATE IV ; Start 11/24/18 at 00:00 Heparin Sodium (Porcine) (Heparin (1000 Units/ml)) 6,300 unit AFTER DIALYSIS CATHETER Last administered on 11/26/18at 16:16; Admin Dose 6,300 UNIT; Start 11/24/18 at 17:30 Sodium Phosphate (Neutra-Phos) 250 mg BID GTB Last administered on 11/28/18at 08:16; Admin Dose 250 MG; Start 11/25/18 at 09:00 Famotidine (Pepcid) 20 mg DAILY PO Last administered on 11/28/18at 08:17; Admin Dose 20 MG; Start 11/26/18 at 09:00 Dextrose 1,000 ml @ 30 mls/hr Q24H IV Last administered on 11/28/18at 02:05; Admin Dose 30 MLS/HR; Start 11/25/18 at 16:00 Alteplase, Recombinant (Cathflo (Activase)) 2 mg MAY REPEAT X1 PRN CATHETER IF CATHETER REMAINS OCCULUDED Last administered on 11/26/18 09:04; Admin Dose 2 MG; Start 11/26/18 at 03:00 Amiodarone HCl 900 mg/Dextrose 500 ml @ 0 mls/hr Q0M IV Last administered on 11/28/18 05:03; Admin Dose 16.66 MLS/HR; Start 11/26/18 at 09:00 Albumin Human 100 ml @ 100 mls/hr DURING DIALYSIS PRN IV HYPOTENSION DURING HD; Start 11/26/18 at 14:00 Clindamycin HCl/ Dextrose 50 ml @ 50 mls/hr Q8 IVPB Last administered on 11/28/18at 06:31; Admin Dose 50 MLS/HR; Start 11/26/18 at 14:00 Diagnostic Test (Pha) (Accu-Chek) 1 ea Q4 XX Last administered on 11/28/18 05:04; Admin Dose 1 EA; Start 11/27/18 at 13:00 NAZARIO HAN MD Nov 28, 2018 10:11
[2018-11-28] MEDS: PROPOFOL 100 ML IV SCH ×2 (11:24→22:39)
[2018-11-28] MEDS: HEPARIN 1000 UNITS/ML 10 ML INJ CATHETER SCH (12:58)
--- NOTE | 2018-11-28 12:59 | CONS ---
Assessment/Plan Assessment/Plan Hospital Course (Demo Recall) No acute events overnight patient is in hemodialysis no distress no fevers overnight. She remains on pressors, she is still on amiodarone drip. WBC 8.6 H&H 6.4 and 18.3 platelets 34 Chest x-ray this morning revealed consolidation of the left lower lobe was visible air bronchograms suggestive for pneumonia or atelectasis Antimicrobials: Clindamycin, Cancidas, meropenem Microbiology: Blood culture on admission grew Klebsiella ESBL, repeat blood cultures negative, left thigh wound culture grew Klebsiella ESBL and Leah albicans Allergy: Zosyn, vancomycin Indwelling: Right upper thigh Davie catheter, left femoral triple-lumen catheter, endotracheal tube, orogastric tube, midline Physical examination: This is a chronically ill-appearing cachectic middle-aged woman who is laying comfortably in bed. Head atraumatic normocephalic. Neck is supple. Chest rise symmetrical. Breath sounds diminished bases. Heart: S1-S2, irreg. Abdomen distended. Bowel sounds hypoactive. Extremities with bilateral edema, cyanotic, multiple ecchymotic areas and bruises, left upper thigh dressing present is Assessment: 1. Severe sepsis with MSOF 2. Acute hypoxemic respiratory failure secondary to CHF exacerbation/probable pneumonia 3. Klebsiella ESBL bacteremia 4. 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 End-stage renal disease, hemodialysis dependent 6. Atrial fibrillation 7. Unstageable sacral decubitus 8. History of peritoneal dialysis with peritoneal dialysis still in place 9. Ascites status post paracentesis 3 weeks ago 10. Failure to thrive 11. Progressive thrombocytopenia 12. History of permanent pacemaker Plan: Remains unchanged, hemodynamically unstable, on appropriate antibiotic regimen, continue present care Consultation Date/Type/Reason Admit Date/Time Nov 21, 2018 at 04:53 Initial Consult Date Type of Consult id Date/Time of Note DATE: 11/28/18 TIME: 12:58 Exam/Review of Systems Exam Vitals Vital Signs Date Temp Pulse Resp B/P (MAP) Pulse Ox O2 O2 Flow FiO2 Time Delivery Rate 11/28/18 87 12:45 11/28/18 20 137/86 98 Mechanical 12:45 (103) Ventilator 11/28/18 97.2 12:00 11/28/18 30 07:50 Intake and Output 11/27/18 11/27/18 11/28/18 1515:00 23:00 07:00 IntakeIntake Total 1190.530 ml 710.540 ml 890.595 ml BalanceBalance 1190.530 ml 710.540 ml 890.595 ml Results Result Diagram: 11/28/18 0415 11/28/18 0415 Results 24hrs Laboratory Tests Test 11/27/18 17:00 11/27/18 21:01 11/28/18 01:31 11/28/18 04:15 Bedside Glucose 71 73 74 White Blood Count 8.6 # Red Blood Count 2.09 L Hemoglobin 6.4 *L Hematocrit 18.3 L Mean Corpuscular 87.6 Volume Mean Corpuscular 30.6 Hemoglobin Mean Corpuscular 35.0 Hemoglobin Concen t Red Cell 17.7 H Distribution Width Platelet Count 34 #L Mean Platelet 10.6 #H Volume Immature 1.400 H Granulocytes % Neutrophils % Segmented 80 H Neutrophils % (Manual) Lymphocytes % Lymphocytes % 17 (Manual) Monocytes % Monocytes % 1 (Manual) Eosinophils % Basophils % Myelocytes % 1 H (Manual) Plasma Cells % 1 (manual) Nucleated Red 0.0 Blood Cells % Immature 0.120 H Granulocytes # Neutrophils # Lymphocytes 1.4 (Manual) Lymphocytes # Monocytes # Monocytes # 0.0 L (Manual) Eosinophils # Basophils # Myelocytes # 0.0 Plasma Cells # 0.0 (manual) Nucleated Red Blood Cells # Platelet Estimate DECREASED Polychromasia 1+ Hypochromasia 3+ Poikilocytosis 2+ Anisocytosis 2+ Target Cells 1+ Ovalocytes 1+ Acanthocytes 1+ Sodium Level 131 L Potassium Level 4.1 Chloride Level 95 L Carbon Dioxide 23 Level Anion Gap 13 Blood Urea 37 #H Nitrogen Creatinine 1.36 H Est Glomerular 40 L Filtrat Rate mL/min Glucose Level 62 #L Calcium Level 7.7 L Phosphorus Level 4.5 Magnesium Level 1.8 Test 11/28/18 05:00 11/28/18 05:04 11/28/18 08:19 11/28/18 12:19 Lab Scanned BLOOD TRANSFUSIO Report N Bedside Glucose 80 70 78 Medications Medication Current Medications Ondansetron HCl (Zofran Inj) 4 mg Q6H PRN IV NAUSEA AND/OR VOMITING Last administered on 11/21/18at 16:50; Admin Dose 4 MG; Start 11/21/18 at 05:30 Albuterol/ Ipratropium (Duoneb) 3 ml Q2H RESP THERAPY PRN NEB SHORTNESS OF BREATH; Start 11/21/18 at 05:30 Acetaminophen (Tylenol Liquid) 650 mg Q6H PRN PO PAIN LEVEL 1-3 OR FEVER; Start 11/21/18 at 05:30 Amiodarone HCl (Cordarone) 200 mg BID PO Last administered on 11/26/18 08:14; Admin Dose 200 MG; Start 11/21/18 at 09:00; Status Hold Folic Acid (Folic Acid) 1 mg DAILY PO Last administered on 11/28/18 08:17; Admin Dose 1 MG; Start 11/21/18 at 09:00 Levothyroxine Sodium (Synthroid) 75 mcg BEFORE BREAKFAST PO Last administered on 11/28/18 06:31; Admin Dose 75 MCG; Start 11/21/18 at 07:00 Meropenem/Sodium Chloride 50 ml @ 100 mls/hr Q12 IVPB Last administered on 11/28/18 08:17; Admin Dose 100 MLS/HR; Start 11/21/18 at 21:00 Norepinephrine 250 ml @ 1.875 mls/ hr TITRATE IV Last administered on 11/28/18 09:18; Admin Dose 13.125 MLS/HR; Start 11/21/18 at 19:00 Caspofungin 50 mg/ Sodium Chloride 250 ml @ 250 mls/hr Q24H IVPB Last administered on 11/27/18at 12:38; Admin Dose 250 MLS/HR; Start 11/24/18 at 13:00 Miscellaneous Information 1 ea NOTE XX ; Start 11/23/18 at 13:30 Glucose (Glutose) 15 gm Q15M PRN PO DECREASED GLUCOSE; Start 11/23/18 at 13:30 Glucose (Glutose) 22.5 gm Q15M PRN PO DECREASED GLUCOSE; Start 11/23/18 at 13:30 Dextrose (D50w Syringe) 25 ml Q15M PRN IV DECREASED GLUCOSE Last administered on 11/26/18at 17:41; Admin Dose 25 ML; Start 11/23/18 at 13:30 Dextrose (D50w Syringe) 50 ml Q15M PRN IV DECREASED GLUCOSE Last administered on 11/26/18at 13:03; Admin Dose 50 ML; Start 11/23/18 at 13:30 Glucagon (Glucagen) 1 mg Q15M PRN IM DECREASED GLUCOSE; Start 11/23/18 at 13:30 Glucose (Glutose) 15 gm Q15M PRN BUCCAL DECREASED GLUCOSE; Start 11/23/18 at 13:30 Propofol 100 ml @ 1.59 mls/hr Q12H IV Last administered on 11/27/18at 20:57; Admin Dose 3.18 MLS/HR; Start 11/24/18 at 00:00 Phenylephrine HCl 80 mg/Dextrose 250 ml @ 18.75 mls/ hr TITRATE IV ; Start 11/24/18 at 00:00 Midazolam HCl 50 ml @ 1 mls/hr TITRATE IV ; Start 11/24/18 at 00:00 Heparin Sodium (Porcine) (Heparin (1000 Units/ml)) 6,300 unit AFTER DIALYSIS CATHETER Last administered on 11/26/18at 16:16; Admin Dose 6,300 UNIT; Start 11/24/18 at 17:30 Sodium Phosphate (Neutra-Phos) 250 mg BID GTB Last administered on 11/28/18at 08:16; Admin Dose 250 MG; Start 11/25/18 at 09:00 Famotidine (Pepcid) 20 mg DAILY PO Last administered on 11/28/18at 08:17; Admin Dose 20 MG; Start 11/26/18 at 09:00 Dextrose 1,000 ml @ 30 mls/hr Q24H IV Last administered on 11/28/18at 02:05; Admin Dose 30 MLS/HR; Start 11/25/18 at 16:00 Alteplase, Recombinant (Cathflo (Activase)) 2 mg MAY REPEAT X1 PRN CATHETER IF CATHETER REMAINS OCCULUDED Last administered on 11/26/18at 09:04; Admin Dose 2 MG; Start 11/26/18 at 03:00 Amiodarone HCl 900 mg/Dextrose 500 ml @ 0 mls/hr Q0M IV Last administered on 11/28/18at 05:03; Admin Dose 16.66 MLS/HR; Start 11/26/18 at 09:00 Albumin Human 100 ml @ 100 mls/hr DURING DIALYSIS PRN IV HYPOTENSION DURING HD; Start 11/26/18 at 14:00 Clindamycin HCl/ Dextrose 50 ml @ 50 mls/hr Q8 IVPB Last administered on 11/28/18at 06:31; Admin Dose 50 MLS/HR; Start 11/26/18 at 14:00 Diagnostic Test (Pha) (Accu-Chek) 1 ea Q4 XX Last administered on 11/28/18at 05:04; Admin Dose 1 EA; Start 11/27/18 at 13:00 KELSIE ELY NP Nov 28, 2018 12:59
[2018-11-28] MEDS: CASPOFUNGIN 50 MG in SOD CHLORIDE 0.9% 250 ML IVPB SCH (13:24)
--- NOTE | 2018-11-28 14:56 | PN ---
Date/Time of Note Date/Time of Note DATE: 11/28/18 TIME: 14:51 Assessment/Plan VTE Prophylaxis Risk score (from Nsg)>0 risk: 9 SCD applied (from Nsg): Yes Pharmacological prophylaxis: heparin Lines/Catheters IV Catheter Type (from Nrsg): Mid Line Urinary Cath still in place: No Assessment/Plan Hospital Course Intubated sedated Chronically ill appearing Lungs clear Distended belly, firm masses Peripheral edema present LUE wound wrapped 58 yo female with ESRD, cirrohsihs, DMII presents with hypoglycemia, leg infection. Suffered cardiac and respiratory arrest, now intubated Cardiac arrest, acute respiratory failure: - Continue vasopressors and mechanical ventilation per pulmonary - Goals of care discussions with family Hypoglycemia: No history of diabetes and patient not on any insulin or sulfonylurea or any other diabetic medication - Continue IV dextrose and tube feeds Left lower extremity wound - Antibiotics per ID -Venous study was negative for DVT A Fib: - Amiodarone ESRD with fluid overload - HD per nephrology Pancytopenia with coagulopathy, thrombocytopenia: Patient had workup here during recent hospitalization. -Thrombocytopenia was thought to be secondary to HIT but may be related to liver disease -Per son, patient did receive platelet transfusion at [facility] -Picture of pancytopenia with macrocytic anemia and coagulopathy does appear consistent with liver disease, await liver ultrasound Hypothyroidism: Continue Synthroid History of pacemaker: No acute issue Ascites secondary to fluid overload and/or liver disease: Status post parac entesis 3 weeks ago with removal of 4.5 L - s/p paracentesis, in addition patient's blood pressure is low 11. Chronic peritoneal dialysis: This is not being used. Not being removed because of the severe thrombocytopenia. This can be addressed at [facility] where she usually gets her care 12. Failure to thrive: Patient is very cachectic -Nutrition consult Prophylaxis: SCDs DC planning: Poor prognosis. Continue goals of care discussions with family. So far unwilling to consider withdrawal of care. Very upset to be asked about it and don't want us to bring it up again Result Diagram: 11/28/18 0415 11/28/18 0415 Results 24hrs Laboratory Tests Test 11/27/18 17:00 11/27/18 21:01 11/28/18 01:31 11/28/18 04:15 Bedside Glucose 71 73 74 White Blood Count 8.6 # Red Blood Count 2.09 L Hemoglobin 6.4 *L Hematocrit 18.3 L Mean Corpuscular 87.6 Volume Mean Corpuscular 30.6 Hemoglobin Mean Corpuscular 35.0 Hemoglobin Concen t Red Cell 17.7 H Distribution Width Platelet Count 34 #L Mean Platelet 10.6 #H Volume Immature 1.400 H Granulocytes % Neutrophils % Segmented 80 H Neutrophils % (Manual) Lymphocytes % Lymphocytes % 17 (Manual) Monocytes % Monocytes % 1 (Manual) Eosinophils % Basophils % Myelocytes % 1 H (Manual) Plasma Cells % 1 (manual) Nucleated Red 0.0 Blood Cells % Immature 0.120 H Granulocytes # Neutrophils # Lymphocytes 1.4 (Manual) Lymphocytes # Monocytes # Monocytes # 0.0 L (Manual) Eosinophils # Basophils # Myelocytes # 0.0 Plasma Cells # 0.0 (manual) Nucleated Red Blood Cells # Platelet Estimate DECREASED Polychromasia 1+ Hypochromasia 3+ Poikilocytosis 2+ Anisocytosis 2+ Target Cells 1+ Ovalocytes 1+ Acanthocytes 1+ Sodium Level 131 L Potassium Level 4.1 Chloride Level 95 L Carbon Dioxide 23 Level Anion Gap 13 Blood Urea 37 #H Nitrogen Creatinine 1.36 H Est Glomerular 40 L Filtrat Rate mL/min Glucose Level 62 #L Calcium Level 7.7 L Phosphorus Level 4.5 Magnesium Level 1.8 Test 11/28/18 05:00 11/28/18 05:04 11/28/18 08:19 11/28/18 12:19 Lab Scanned BLOOD TRANSFUSIO Report N Bedside Glucose 80 70 78 Subjective 24 Hr Interval Summary Free Text/Dictation Undergoing HD Remains intubated, on levophed, sedated Exam/Review of Systems Exam Vitals Vital Signs Date Temp Pulse Resp B/P (MAP) Pulse Ox O2 O2 Flow FiO2 Time Delivery Rate 11/28/18 106 20 160/97 95 Mechanical 13:01 (118) Ventilator 11/28/18 97.2 12:00 11/28/18 30 07:50 Intake and Output 11/27/18 11/27/18 11/28/18 1515:00 23:00 07:00 IntakeIntake Total 1190.530 ml 710.540 ml 890.595 ml BalanceBalance 1190.530 ml 710.540 ml 890.595 ml Results Results 24hrs Laboratory Tests Test 11/27/18 17:00 11/27/18 21:01 11/28/18 01:31 11/28/18 04:15 Bedside Glucose 71 73 74 White Blood Count 8.6 # Red Blood Count 2.09 L Hemoglobin 6.4 *L Hematocrit 18.3 L Mean Corpuscular 87.6 Volume Mean Corpuscular 30.6 Hemoglobin Mean Corpuscular 35.0 Hemoglobin Concen t Red Cell 17.7 H Distribution Width Platelet Count 34 #L Mean Platelet 10.6 #H Volume Immature 1.400 H Granulocytes % Neutrophils % Segmented 80 H Neutrophils % (Manual) Lymphocytes % Lymphocytes % 17 (Manual) Monocytes % Monocytes % 1 (Manual) Eosinophils % Basophils % Myelocytes % 1 H (Manual) Plasma Cells % 1 (manual) Nucleated Red 0.0 Blood Cells % Immature 0.120 H Granulocytes # Neutrophils # Lymphocytes 1.4 (Manual) Lymphocytes # Monocytes # Monocytes # 0.0 L (Manual) Eosinophils # Basophils # Myelocytes # 0.0 Plasma Cells # 0.0 (manual) Nucleated Red Blood Cells # Platelet Estimate DECREASED Polychromasia 1+ Hypochromasia 3+ Poikilocytosis 2+ Anisocytosis 2+ Target Cells 1+ Ovalocytes 1+ Acanthocytes 1+ Sodium Level 131 L Potassium Level 4.1 Chloride Level 95 L Carbon Dioxide 23 Level Anion Gap 13 Blood Urea 37 #H Nitrogen Creatinine 1.36 H Est Glomerular 40 L Filtrat Rate mL/min Glucose Level 62 #L Calcium Level 7.7 L Phosphorus Level 4.5 Magnesium Level 1.8 Test 11/28/18 05:00 11/28/18 05:04 11/28/18 08:19 11/28/18 12:19 Lab Scanned BLOOD TRANSFUSIO Report N Bedside Glucose 80 70 78 Medications Medication Current Medications Ondansetron HCl (Zofran Inj) 4 mg Q6H PRN IV NAUSEA AND/OR VOMITING Last a dministered on 11/21/18at 16:50; Admin Dose 4 MG; Start 11/21/18 at 05:30 Albuterol/ Ipratropium (Duoneb) 3 ml Q2H RESP THERAPY PRN NEB SHORTNESS OF BREATH; Start 11/21/18 at 05:30 Acetaminophen (Tylenol Liquid) 650 mg Q6H PRN PO PAIN LEVEL 1-3 OR FEVER; Start 11/21/18 at 05:30 Amiodarone HCl (Cordarone) 200 mg BID PO Last administered on 11/26/18 08:14; Admin Dose 200 MG; Start 11/21/18 at 09:00; Status Hold Folic Acid (Folic Acid) 1 mg DAILY PO Last administered on 11/28/18 08:17; Admin Dose 1 MG; Start 11/21/18 at 09:00 Levothyroxine Sodium (Synthroid) 75 mcg BEFORE BREAKFAST PO Last administered on 11/28/18 06:31; Admin Dose 75 MCG; Start 11/21/18 at 07:00 Meropenem/Sodium Chloride 50 ml @ 100 mls/hr Q12 IVPB Last administered on 11/28/18 08:17; Admin Dose 100 MLS/HR; Start 11/21/18 at 21:00 Norepinephrine 250 ml @ 1.875 mls/ hr TITRATE IV Last administered on 11/28/18 09:18; Admin Dose 13.125 MLS/HR; Start 11/21/18 at 19:00 Caspofungin 50 mg/ Sodium Chloride 250 ml @ 250 mls/hr Q24H IVPB Last administered on 11/28/18at 13:24; Admin Dose 250 MLS/HR; Start 11/24/18 at 13:00 Miscellaneous Information 1 ea NOTE XX ; Start 11/23/18 at 13:30 Glucose (Glutose) 15 gm Q15M PRN PO DECREASED GLUCOSE; Start 11/23/18 at 13:30 Glucose (Glutose) 22.5 gm Q15M PRN PO DECREASED GLUCOSE; Start 11/23/18 at 13:30 Dextrose (D50w Syringe) 25 ml Q15M PRN IV DECREASED GLUCOSE Last administered on 11/26/18at 17:41; Admin Dose 25 ML; Start 11/23/18 at 13:30 Dextrose (D50w Syringe) 50 ml Q15M PRN IV DECREASED GLUCOSE Last administered on 11/26/18at 13:03; Admin Dose 50 ML; Start 11/23/18 at 13:30 Glucagon (Glucagen) 1 mg Q15M PRN IM DECREASED GLUCOSE; Start 11/23/18 at 13:30 Glucose (Glutose) 15 gm Q15M PRN BUCCAL DECREASED GLUCOSE; Start 11/23/18 at 13:30 Propofol 100 ml @ 1.59 mls/hr Q12H IV Last administered on 11/27/18 20:57; Admin Dose 3.18 MLS/HR; Start 11/24/18 at 00:00 Phenylephrine HCl 80 mg/Dextrose 250 ml @ 18.75 mls/ hr TITRATE IV ; Start 11/24/18 at 00:00 Midazolam HCl 50 ml @ 1 mls/hr TITRATE IV ; Start 11/24/18 at 00:00 Heparin Sodium (Porcine) (Heparin (1000 Units/ml)) 6,300 unit AFTER DIALYSIS CATHETER Last administered on 11/28/18 12:58; Admin Dose 6,300 UNIT; Start 11/24/18 at 17:30 Sodium Phosphate (Neutra-Phos) 250 mg BID GTB Last administered on 11/28/18 08:16; Admin Dose 250 MG; Start 11/25/18 at 09:00 Famotidine (Pepcid) 20 mg DAILY PO Last administered on 11/28/18 08:17; Admin Dose 20 MG; Start 11/26/18 at 09:00 Dextrose 1,000 ml @ 30 mls/hr Q24H IV Last administered on 11/28/18 02:05; Admin Dose 30 MLS/HR; Start 11/25/18 at 16:00 Alteplase, Recombinant (Cathflo (Activase)) 2 mg MAY REPEAT X1 PRN CATHETER IF CATHETER REMAINS OCCULUDED Last administered on 11/26/18 09:04; Admin Dose 2 MG; Start 11/26/18 at 03:00 Amiodarone HCl 900 mg/Dextrose 500 ml @ 0 mls/hr Q0M IV Last administered on 11/28/18 05:03; Admin Dose 16.66 MLS/HR; Start 11/26/18 at 09:00 Albumin Human 100 ml @ 100 mls/hr DURING DIALYSIS PRN IV HYPOTENSION DURING HD; Start 11/26/18 at 14:00 Clindamycin HCl/ Dextrose 50 ml @ 50 mls/hr Q8 IVPB Last administered on 11/28/18 13:13; Admin Dose 50 MLS/HR; Start 11/26/18 at 14:00 Diagnostic Test (Pha) (Accu-Chek) 1 ea Q4 XX Last administered on 11/28/18 05:04; Admin Dose 1 EA; Start 11/27/18 at 13:00 JOSLYN LANDRUM MD Nov 28, 2018 14:56
[2018-11-29] VITALS (102 sets, daily range): BP systolic 82–118; BP diastolic 63–85; PULSE 57–67; RESP 20–22
[2018-11-29] MEDS: ACCU-CHEK XX SCH ×6 (01:00→22:08)
[2018-11-29] MEDS: CLINDAMYCIN 600 MG/D5W (PMX) 50 ML IVPB SCH ×3 (05:39→22:08)
[2018-11-29] MEDS: LEVOTHYROXINE 75 MCG TAB PO SCH (06:44)
[2018-11-29] MEDS: LEVOTHYROXINE 75 MCG TAB NGT SCH ×2 (07:00→08:36)
[2018-11-29] MEDS: DEXTROSE 10% 1,000 ML IV SCH (08:35)
[2018-11-29] MEDS: FOLIC ACID 1 MG TAB PO SCH (08:36)
[2018-11-29] MEDS: NEUTRA-PHOS 250 MG PACKET GTB SCH ×2 (08:36→22:08)
[2018-11-29] MEDS: FAMOTIDINE 20 MG TAB PO SCH (08:36)
[2018-11-29] MEDS: AMIODARONE 900 MG in DEXTROSE 5% 482 ML IV SCH (08:46)
[2018-11-29] MEDS: BALSAM PERU/CASTOR OIL 60 GM TUBE TOP SCH ×2 (08:47→22:08)
[2018-11-29] MEDS: MEROPENEM 500MG/50 ML (PMX) 50 ML IVPB SCH ×2 (08:52→22:08)
--- NOTE | 2018-11-29 09:14 | CONS ---
Consult Date/Type/Reason Admit Date/Time Nov 21, 2018 at 04:53 Initial Consult Date Type of Consult Pulmonary Date/Time of Note DATE: 11/29/18 TIME: 09:13 Subjective Patient remained stable on mechanical ventilation. Mostly somnolent. Continues vasopressor support. Objective Vital Signs Date Temp Pulse Resp B/P (MAP) Pulse Ox O2 O2 Flow FiO2 Time Delivery Rate 11/29/18 58 08:00 11/29/18 20 105/72 06:30 (83) 11/29/18 99 30 05:15 11/29/18 Mechanical 05:00 Ventilator 11/29/18 98.9 04:00 Intake and Output 11/28/18 11/28/18 11/29/18 1515:00 23:00 07:00 IntakeIntake Total 1138.720 ml 669.735 ml 570.835 ml OutputOutput Total 3200 ml BalanceBalance -2061.280 ml 669.735 ml 570.835 ml Exam GENERAL: Thin cachectic lady on mechanical ventilation VITAL SIGNS: per chart NECK: Supple. No JVD or lymphadenopathy. CARDIAC EXAM: S1, S2. No added sounds or murmurs. CHEST: Diminished air entry bilaterally ABDOMEN: Soft, nontender. No guarding or rebound. EXTREMITIES: No cyanosis, clubbing or edema. NEUROLOGIC: Generalized weakness. Vent Setting Ventilator Support Mode: AC Fraction of Inspired Oxygen pe: 30 Positive End Expiratory Pressu: 5.0 Results/Medications Result Diagram: 11/29/18 0455 11/29/18 0455 Results 24 hrs Laboratory Tests Test 11/28/18 12:19 11/28/18 16:44 11/28/18 21:06 11/29/18 01:25 Bedside Glucose 78 96 71 96 Test 11/29/18 04:55 11/29/18 05:18 White Blood Count 11.6 #H Red Blood Count 4.36 # Hemoglobin 12.6 # Hematocrit 35.9 #L Mean Corpuscular 82.3 Volume Mean Corpuscular 28.9 L Hemoglobin Mean Corpuscular 35.1 Hemoglobin Concent Red Cell 15.3 H Distribution Width Platelet Count 10 #*L Mean Platelet Volume Immature 1.500 H Granulocytes % Neutrophils % Lymphocytes % Monocytes % Eosinophils % Basophils % Nucleated Red Blood 0.3 H Cells % Immature 0.170 H Granulocytes # Neutrophils # Lymphocytes # Monocytes # Eosinophils # Basophils # Nucleated Red Blood Cells # Sodium Level 130 L Potassium Level 4.7 Chloride Level 98 Carbon Dioxide Level 20 L Anion Gap 12 Blood Urea Nitrogen 35 H Creatinine 1.08 H Est Glomerular 52 L Filtrat Rate mL/min Glucose Level 102 # Calcium Level 8.0 L Total Bilirubin 3.3 H Direct Bilirubin 1.60 H Indirect Bilirubin 1.7 H Aspartate Amino 30 Transf (AST/SGOT) Alanine 10 L Aminotransferase (AL T/SGPT) Alkaline Phosphatase 216 H Total Protein 5.2 L Albumin 2.3 L Globulin 2.90 Albumin/Globulin 0.79 Ratio Bedside Glucose 111 Medications Current Medications Ondansetron HCl (Zofran Inj) 4 mg Q6H PRN IV NAUSEA AND/OR VOMITING Last administered on 11/21/18at 16:50; Admin Dose 4 MG; Start 11/21/18 at 05:30 Albuterol/ Ipratropium (Duoneb) 3 ml Q2H RESP THERAPY PRN NEB SHORTNESS OF BREATH; Start 11/21/18 at 05:30 Acetaminophen (Tylenol Liquid) 650 mg Q6H PRN PO PAIN LEVEL 1-3 OR FEVER; Start 11/21/18 at 05:30 Amiodarone HCl (Cordarone) 200 mg BID PO Last administered on 11/26/18 08:14; Admin Dose 200 MG; Start 11/21/18 at 09:00; Status Hold Folic Acid (Folic Acid) 1 mg DAILY PO Last administered on 11/29/18 08:36; Admin Dose 1 MG; Start 11/21/18 at 09:00 Meropenem/Sodium Chloride 50 ml @ 100 mls/hr Q12 IVPB Last administered on 11/29/18 08:52; Admin Dose 100 MLS/HR; Start 11/21/18 at 21:00 Norepinephrine 250 ml @ 1.875 mls/ hr TITRATE IV Last administered on 11/28/18 22:43; Admin Dose 13.125 MLS/HR; Start 11/21/18 at 19:00 Caspofungin 50 mg/ Sodium Chloride 250 ml @ 250 mls/hr Q24H IVPB Last administered on 11/28/18 13:24; Admin Dose 250 MLS/HR; Start 11/24/18 at 13:00 Miscellaneous Information 1 ea NOTE XX ; Start 11/23/18 at 13:30 Glucose (Glutose) 15 gm Q15M PRN PO DECREASED GLUCOSE; Start 11/23/18 at 13:30 Glucose (Glutose) 22.5 gm Q15M PRN PO DECREASED GLUCOSE; Start 11/23/18 at 13:30 Dextrose (D50w Syringe) 25 ml Q15M PRN IV DECREASED GLUCOSE Last administered on 11/26/18at 17:41; Admin Dose 25 ML; Start 11/23/18 at 13:30 Dextrose (D50w Syringe) 50 ml Q15M PRN IV DECREASED GLUCOSE Last administered on 11/26/18at 13:03; Admin Dose 50 ML; Start 11/23/18 at 13:30 Glucagon (Glucagen) 1 mg Q15M PRN IM DECREASED GLUCOSE; Start 11/23/18 at 13:30 Glucose (Glutose) 15 gm Q15M PRN BUCCAL DECREASED GLUCOSE; Start 11/23/18 at 13:30 Propofol 100 ml @ 1.59 mls/hr Q12H IV Last administered on 11/28/18at 22:39; Admin Dose 3.18 MLS/HR; Start 11/24/18 at 00:00 Phenylephrine HCl 80 mg/Dextrose 250 ml @ 18.75 mls/ hr TITRATE IV ; Start 11/24/18 at 00:00 Heparin Sodium (Porcine) (Heparin (1000 Units/ml)) 6,300 unit AFTER DIALYSIS CATHETER Last administered on 11/28/18at 12:58; Admin Dose 6,300 UNIT; Start 11/24/18 at 17:30 Sodium Phosphate (Neutra-Phos) 250 mg BID GTB Last administered on 11/29/18at 08:36; Admin Dose 250 MG; Start 11/25/18 at 09:00 Famotidine (Pepcid) 20 mg DAILY PO Last administered on 11/29/18 08:36; Admin Dose 20 MG; Start 11/26/18 at 09:00 Dextrose 1,000 ml @ 30 mls/hr Q24H IV Last administered on 11/29/18at 08:35; Admin Dose 30 MLS/HR; Start 11/25/18 at 16:00 Alteplase, Recombinant (Cathflo (Activase)) 2 mg MAY REPEAT X1 PRN CATHETER IF CATHETER REMAINS OCCULUDED Last administered on 11/26/18at 09:04; Admin Dose 2 MG; Start 11/26/18 at 03:00 Amiodarone HCl 900 mg/Dextrose 500 ml @ 0 mls/hr Q0M IV Last administered on 11/29/18at 08:46; Admin Dose 16.7 MLS/HR; Start 11/26/18 at 09:00 Albumin Human 100 ml @ 100 mls/hr DURING DIALYSIS PRN IV HYPOTENSION DURING HD; Start 11/26/18 at 14:00 Clindamycin HCl/ Dextrose 50 ml @ 50 mls/hr Q8 IVPB Last administered on 11/29/18at 05:39; Admin Dose 50 MLS/HR; Start 11/26/18 at 14:00 Diagnostic Test (Pha) (Accu-Chek) 1 ea Q4 XX Last administered on 11/29/18at 05:11; Admin Dose 1 EA; Start 11/27/18 at 13:00 Levothyroxine Sodium (Synthroid) 75 mcg BEFORE BREAKFAST NGT Last administered on 11/29/18at 08:36; Admin Dose 75 MCG; Start 11/29/18 at 07:00 Midazolam HCl 50 ml @ 1 mls/hr TITRATE IV ; Start 11/29/18 at 09:00 Assessment/Plan Hospital Course (Demo Recall) assessment 1. Septic shock likely secondary to pneumonia 2. Acute hypoxemic respiratory failure 3. History of cardiomyopathy 4. Severe thrombocytopenia with anemia no active GI bleeding 5. End-stage renal failure on hemodialysis Plan 1. Monitor H&H posttransfusion 2. Titrate pressors to keep map greater than 65 3. Tube feeding as tolerated 4. Check random cortisol level possible component of renal insufficiency. 5. Hemodialysis as tolerated Prognosis remains extremely poor. Critical care time 40 minutes. Long discussion with family at bedside. NINA MORRIS MD, [facility] Nov 29, 2018 09:14
[2018-11-29] MEDS: MIDAZOLAM (DRIP) 50 mg/50 mL 50 ML IV SCH (11:16)
--- NOTE | 2018-11-29 11:31 | CONS ---
Assessment/Plan Assessment/Plan Assessment/Plan (Daily) 1. End-stage renal disease. The patient's access is Perm-A-Cath. We will continue dialysis for solute clearance and volume removal. HD tomorrow 2. Volume overload with diffuse anasarca secondary to end-stage renal disease, capillary leak, IV fluids. Continue ultrafiltration with hemodialysis if hemodynamically stable. 3. Septic shock, etiology is secondary to pneumonia and bacteremia. The p atient's repeat cultures have been negative. Continue pressor support. Continue broad spectrum antibiotics, follow up with infectious disease for recommendations. 4. Anemia. Continue to monitor hemoglobin and hematocrit levels. Continue Epogen. prbc per IM if needed 5. Hyponatremia. Continue dialysis on a 140 sodium bath. 6. Hypokalemia. Continue to monitor and replete as needed. 7. Mineral bone disorder. The patient is hypocalcemic hypophosphatemic. Continue to monitor. Continue dialysis on a high calcium bath. 8. Ventilator-dependent respiratory failure. Vent settings and ABG was reviewed. Continue to monitor. Follow up with pulmonary. 9. Acute encephalopathy, etiology is toxic metabolic. 10. 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 Continue to monitor platelets. The patient is status post transfusion. 11. Ascites. Continue to monitor. 12. Hypothyroidism. Continue Synthroid. 13. Lactic acidosis secondary to shock. Continue to trend. 14. Hypomagnesemia. Continue to monitor and replete as needed. Consultation Date/Type/Reason Admit Date/Time Nov 21, 2018 at 04:53 Initial Consult Date Date/Time of Note DATE: 11/29/18 TIME: 11:30 24 HR Interval Summary Free Text/Dictation still on levophed remains intubated s/p HD yesterday d/w rn gen intubated cv rrr pulm ctab abd soft, nd, nt +bs ext: no edema Exam/Review of Systems Exam Vitals Vital Signs Date Temp Pulse Resp B/P (MAP) Pulse Ox O2 O2 Flow FiO2 Time Delivery Rate 11/29/18 20 104/73 Mechanical 11:00 (83) Ventilator 11/29/18 62 100 10:45 11/29/18 30 08:00 11/29/18 98.2 08:00 Intake and Output 11/28/18 11/28/18 11/29/18 1515:00 23:00 07:00 IntakeIntake Total 1138.720 ml 669.735 ml 620.660 ml OutputOutput Total 3200 ml BalanceBalance -2061.280 ml 669.735 ml 620.660 ml Results Result Diagram: 11/29/18 0455 11/29/18 0455 Results 24hrs Laboratory Tests Test 11/28/18 12:19 11/28/18 16:44 11/28/18 21:06 11/29/18 01:25 Bedside Glucose 78 96 71 96 Test 11/29/18 04:55 11/29/18 05:18 11/29/18 08:48 White Blood Count 11.6 #H Red Blood Count 4.36 # Hemoglobin 12.6 # Hematocrit 35.9 #L Mean Corpuscular 82.3 Volume Mean Corpuscular 28.9 L Hemoglobin Mean Corpuscular 35.1 Hemoglobin Concent Red Cell 15.3 H Distribution Width Platelet Count 10 #*L Mean Platelet Volume Immature 1.500 H Granulocytes % Neutrophils % Segmented 75 Neutrophils % (Manual) Band Neutrophils % 1 (Manual) Lymphocytes % Lymphocytes % 20 (Manual) Monocytes % Monocytes % 2 (Manual) Eosinophils % Eosinophils % 2 (Manual) Basophils % Nucleated Red 0.3 H Blood Cells % Immature 0.170 H Granulocytes # Neutrophils # Neutrophils # 8.7 H (Manual) Band Neutrophils # 0.1 Lymphocytes 2.3 (Manual) Lymphocytes # Monocytes # Monocytes # 0.2 L (Manual) Eosinophils # Basophils # Nucleated Red Blood Cells # Toxic Granulation 1+ Platelet Estimate SIG DECREASED Poikilocytosis 3+ Anisocytosis 2+ Macrocytosis 1+ Sodium Level 130 L Potassium Level 4.7 Chloride Level 98 Carbon Dioxide 20 L Level Anion Gap 12 Blood Urea 35 H Nitrogen Creatinine 1.08 H Est Glomerular 52 L Filtrat Rate mL/min Glucose Level 102 # Calcium Level 8.0 L Total Bilirubin 3.3 H Direct Bilirubin 1.60 H Indirect Bilirubin 1.7 H Aspartate Amino 30 Transf (AST/SGOT) Alanine 10 L Aminotransferase ( ALT/SGPT) Alkaline 216 H Phosphatase Total Protein 5.2 L Albumin 2.3 L Globulin 2.90 Albumin/Globulin 0.79 Ratio Bedside Glucose 111 107 Medications Medication Current Medications Ondansetron HCl (Zofran Inj) 4 mg Q6H PRN IV NAUSEA AND/OR VOMITING Last administered on 11/21/18at 16:50; Admin Dose 4 MG; Start 11/21/18 at 05:30 Albuterol/ Ipratropium (Duoneb) 3 ml Q2H RESP THERAPY PRN NEB SHORTNESS OF BREATH; Start 11/21/18 at 05:30 Acetaminophen (Tylenol Liquid) 650 mg Q6H PRN PO PAIN LEVEL 1-3 OR FEVER; Start 11/21/18 at 05:30 Amiodarone HCl (Cordarone) 200 mg BID PO Last administered on 11/26/18at 08:14; Admin Dose 200 MG; Start 11/21/18 at 09:00; Status Hold Folic Acid (Folic Acid) 1 mg DAILY PO Last administered on 11/29/18at 08:36; Admin Dose 1 MG; Start 11/21/18 at 09:00 Meropenem/Sodium Chloride 50 ml @ 100 mls/hr Q12 IVPB Last administered on 11/29/18at 08:52; Admin Dose 100 MLS/HR; Start 11/21/18 at 21:00 Norepinephrine 250 ml @ 1.875 mls/ hr TITRATE IV Last administered on 11/28/18at 22:43; Admin Dose 13.125 MLS/HR; Start 11/21/18 at 19:00 Caspofungin 50 mg/ Sodium Chloride 250 ml @ 250 mls/hr Q24H IVPB Last administered on 11/28/18at 13:24; Admin Dose 250 MLS/HR; Start 11/24/18 at 13:00 Miscellaneous Information 1 ea NOTE XX ; Start 11/23/18 at 13:30 Glucose (Glutose) 15 gm Q15M PRN PO DECREASED GLUCOSE; Start 11/23/18 at 13:30 Glucose (Glutose) 22.5 gm Q15M PRN PO DECREASED GLUCOSE; Start 11/23/18 at 13:30 Dextrose (D50w Syringe) 25 ml Q15M PRN IV DECREASED GLUCOSE Last administered on 11/26/18at 17:41; Admin Dose 25 ML; Start 11/23/18 at 13:30 Dextrose (D50w Syringe) 50 ml Q15M PRN IV DECREASED GLUCOSE Last administered on 11/26/18at 13:03; Admin Dose 50 ML; Start 11/23/18 at 13:30 Glucagon (Glucagen) 1 mg Q15M PRN IM DECREASED GLUCOSE; Start 11/23/18 at 13:30 Glucose (Glutose) 15 gm Q15M PRN BUCCAL DECREASED GLUCOSE; Start 11/23/18 at 13:30 Propofol 100 ml @ 1.59 mls/hr Q12H IV Last administered on 11/28/18 22:39; Admin Dose 3.18 MLS/HR; Start 11/24/18 at 00:00 Phenylephrine HCl 80 mg/Dextrose 250 ml @ 18.75 mls/ hr TITRATE IV ; Start 11/24/18 at 00:00 Heparin Sodium (Porcine) (Heparin (1000 Units/ml)) 6,300 unit AFTER DIALYSIS CATHETER Last administered on 11/28/18at 12:58; Admin Dose 6,300 UNIT; Start 11/24/18 at 17:30 Sodium Phosphate (Neutra-Phos) 250 mg BID GTB Last administered on 11/29/18 08:36; Admin Dose 250 MG; Start 11/25/18 at 09:00 Famotidine (Pepcid) 20 mg DAILY PO Last administered on 11/29/18 08:36; Admin Dose 20 MG; Start 11/26/18 at 09:00 Dextrose 1,000 ml @ 30 mls/hr Q24H IV Last administered on 11/29/18 08:35; Admin Dose 30 MLS/HR; Start 11/25/18 at 16:00 Alteplase, Recombinant (Cathflo (Activase)) 2 mg MAY REPEAT X1 PRN CATHETER IF CATHETER REMAINS OCCULUDED Last administered on 11/26/18 09:04; Admin Dose 2 MG; Start 11/26/18 at 03:00 Amiodarone HCl 900 mg/Dextrose 500 ml @ 0 mls/hr Q0M IV Last administered on 11/29/18 08:46; Admin Dose 16.7 MLS/HR; Start 11/26/18 at 09:00 Albumin Human 100 ml @ 100 mls/hr DURING DIALYSIS PRN IV HYPOTENSION DURING HD; Start 11/26/18 at 14:00 Clindamycin HCl/ Dextrose 50 ml @ 50 mls/hr Q8 IVPB Last administered on 11/29/18 05:39; Admin Dose 50 MLS/HR; Start 11/26/18 at 14:00 Diagnostic Test (Pha) (Accu-Chek) 1 ea Q4 XX Last administered on 11/29/18 05:11; Admin Dose 1 EA; Start 11/27/18 at 13:00 Levothyroxine Sodium (Synthroid) 75 mcg BEFORE BREAKFAST NGT Last administered on 11/29/18at 08:36; Admin Dose 75 MCG; Start 11/29/18 at 07:00 Midazolam HCl 50 ml @ 1 mls/hr TITRATE IV Last administered on 11/29/18at 11:16; Admin Dose 1 MLS/HR; Start 11/29/18 at 09:00 NAZAROI HAN MD Nov 29, 2018 11:31
[2018-11-29] MEDS: PROPOFOL 100 ML IV SCH (12:00)
--- NOTE | 2018-11-29 12:58 | CONS ---
Assessment/Plan Assessment/Plan Hospital Course (Demo Recall) No acute changes. Patient remains on Levophed and amiodarone drips, intubated in no distress. WBC 11.6 platelets 10 Antimicrobials: Clindamycin, Cancidas, meropenem Microbiology: Blood culture on admission grew Klebsiella ESBL, repeat blood cultures negative, left thigh wound culture grew Klebsiella ESBL and Leah albicans Allergy: Zosyn, vancomycin Indwelling: Right upper thigh Davie catheter, left femoral triple-lumen catheter, endotracheal tube, orogastric tube, midline Physical examination: This is a chronically ill-appearing cachectic middle-aged woman who is laying comfortably in bed. Head atraumatic normocephalic. Neck is supple. Chest rise symmetrical. Breath sounds diminished bases. Heart: S1-S2, irreg. Abdomen distended. Bowel sounds hypoactive. Extremities with bilateral edema, cyanotic, multiple ecchymotic areas and bruises, left upper thigh dressing present is Assessment: 1. Severe sepsis with MSOF 2. Acute hypoxemic respiratory failure secondary to CHF exacerbation/probable pneumonia 3. Klebsiella ESBL bacteremia 4. 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 End-stage renal disease, hemodialysis dependent 6. Atrial fibrillation 7. Unstageable sacral decubitus 8. History of peritoneal dialysis with peritoneal dialysis still in place 9. Ascites status post paracentesis 3 weeks ago 10. Failure to thrive 11. Progressive thrombocytopenia 12. History of permanent pacemaker Plan: Remains hemodynamically unstable, continue antibiotics, prognosis poor Consultation Date/Type/Reason Admit Date/Time Nov 21, 2018 at 04:53 Initial Consult Date Type of Consult id Date/Time of Note DATE: 11/29/18 TIME: 12:57 Exam/Review of Systems Exam Vitals Vital Signs Date Temp Pulse Resp B/P (MAP) Pulse Ox O2 O2 Flow FiO2 Time Delivery Rate 11/29/18 60 12:00 11/29/18 20 104/73 Mechanical 11:00 (83) Ventilator 11/29/18 100 10:45 11/29/18 30 08:00 11/29/18 98.2 08:00 Intake and Output 11/28/18 11/28/18 11/29/18 1515:00 23:00 07:00 IntakeIntake Total 1138.720 ml 669.735 ml 620.660 ml OutputOutput Total 3200 ml BalanceBalance -2061.280 ml 669.735 ml 620.660 ml Results Result Diagram: 11/29/18 0455 11/29/18 0455 Results 24hrs Laboratory Tests Test 11/28/18 16:44 11/28/18 21:06 11/29/18 01:25 11/29/18 04:55 Bedside Glucose 96 71 96 White Blood Count 11.6 #H Red Blood Count 4.36 # Hemoglobin 12.6 # Hematocrit 35.9 #L Mean Corpuscular 82.3 Volume Mean Corpuscular 28.9 L Hemoglobin Mean Corpuscular 35.1 Hemoglobin Concent Red Cell 15.3 H Distribution Width Platelet Count 10 #*L Mean Platelet Volume Immature 1.500 H Granulocytes % Neutrophils % Segmented 75 Neutrophils % (Manual) Band Neutrophils % 1 (Manual) Lymphocytes % Lymphocytes % 20 (Manual) Monocytes % Monocytes % 2 (Manual) Eosinophils % Eosinophils % 2 (Manual) Basophils % Nucleated Red 0.3 H Blood Cells % Immature 0.170 H Granulocytes # Neutrophils # Neutrophils # 8.7 H (Manual) Band Neutrophils # 0.1 Lymphocytes 2.3 (Manual) Lymphocytes # Monocytes # Monocytes # 0.2 L (Manual) Eosinophils # Basophils # Nucleated Red Blood Cells # Toxic Granulation 1+ Platelet Estimate SIG DECREASED Poikilocytosis 3+ Anisocytosis 2+ Macrocytosis 1+ Sodium Level 130 L Potassium Level 4.7 Chloride Level 98 Carbon Dioxide 20 L Level Anion Gap 12 Blood Urea 35 H Nitrogen Creatinine 1.08 H Est Glomerular 52 L Filtrat Rate mL/min Glucose Level 102 # Calcium Level 8.0 L Total Bilirubin 3.3 H Direct Bilirubin 1.60 H Indirect Bilirubin 1.7 H Aspartate Amino 30 Transf (AST/SGOT) Alanine 10 L Aminotransferase ( ALT/SGPT) Alkaline 216 H Phosphatase Total Protein 5.2 L Albumin 2.3 L Globulin 2.90 Albumin/Globulin 0.79 Ratio Test 11/29/18 05:18 11/29/18 08:48 Bedside Glucose 111 107 Medications Medication Current Medications Ondansetron HCl (Zofran Inj) 4 mg Q6H PRN IV NAUSEA AND/OR VOMITING Last administered on 11/21/18at 16:50; Admin Dose 4 MG; Start 11/21/18 at 05:30 Albuterol/ Ipratropium (Duoneb) 3 ml Q2H RESP THERAPY PRN NEB SHORTNESS OF BREATH; Start 11/21/18 at 05:30 Acetaminophen (Tylenol Liquid) 650 mg Q6H PRN PO PAIN LEVEL 1-3 OR FEVER; Start 11/21/18 at 05:30 Amiodarone HCl (Cordarone) 200 mg BID PO Last administered on 11/26/18at 08:14; Admin Dose 200 MG; Start 11/21/18 at 09:00; Status Hold Folic Acid (Folic Acid) 1 mg DAILY PO Last administered on 11/29/18at 08:36; Admin Dose 1 MG; Start 11/21/18 at 09:00 Meropenem/Sodium Chloride 50 ml @ 100 mls/hr Q12 IVPB Last administered on 11/29/18at 08:52; Admin Dose 100 MLS/HR; Start 11/21/18 at 21:00 Norepinephrine 250 ml @ 1.875 mls/ hr TITRATE IV Last administered on 11/28/18at 22:43; Admin Dose 13.125 MLS/HR; Start 11/21/18 at 19:00 Caspofungin 50 mg/ Sodium Chloride 250 ml @ 250 mls/hr Q24H IVPB Last admini stered on 11/28/18at 13:24; Admin Dose 250 MLS/HR; Start 11/24/18 at 13:00 Miscellaneous Information 1 ea NOTE XX ; Start 11/23/18 at 13:30 Glucose (Glutose) 15 gm Q15M PRN PO DECREASED GLUCOSE; Start 11/23/18 at 13:30 Glucose (Glutose) 22.5 gm Q15M PRN PO DECREASED GLUCOSE; Start 11/23/18 at 13:30 Dextrose (D50w Syringe) 25 ml Q15M PRN IV DECREASED GLUCOSE Last administered on 11/26/18at 17:41; Admin Dose 25 ML; Start 11/23/18 at 13:30 Dextrose (D50w Syringe) 50 ml Q15M PRN IV DECREASED GLUCOSE Last administered on 11/26/18at 13:03; Admin Dose 50 ML; Start 11/23/18 at 13:30 Glucagon (Glucagen) 1 mg Q15M PRN IM DECREASED GLUCOSE; Start 11/23/18 at 13:30 Glucose (Glutose) 15 gm Q15M PRN BUCCAL DECREASED GLUCOSE; Start 11/23/18 at 13:30 Propofol 100 ml @ 1.59 mls/hr Q12H IV Last administered on 11/28/18 22:39; Admin Dose 3.18 MLS/HR; Start 11/24/18 at 00:00 Phenylephrine HCl 80 mg/Dextrose 250 ml @ 18.75 mls/ hr TITRATE IV ; Start 11/24/18 at 00:00 Heparin Sodium (Porcine) (Heparin (1000 Units/ml)) 6,300 unit AFTER DIALYSIS CATHETER Last administered on 11/28/18 12:58; Admin Dose 6,300 UNIT; Start 11/24/18 at 17:30 Sodium Phosphate (Neutra-Phos) 250 mg BID GTB Last administered on 11/29/18 08:36; Admin Dose 250 MG; Start 11/25/18 at 09:00 Famotidine (Pepcid) 20 mg DAILY PO Last administered on 11/29/18 08:36; Admin Dose 20 MG; Start 11/26/18 at 09:00 Dextrose 1,000 ml @ 30 mls/hr Q24H IV Last administered on 11/29/18 08:35; Admin Dose 30 MLS/HR; Start 11/25/18 at 16:00 Alteplase, Recombinant (Cathflo (Activase)) 2 mg MAY REPEAT X1 PRN CATHETER IF CATHETER REMAINS OCCULUDED Last administered on 11/26/18at 09:04; Admin Dose 2 MG; Start 11/26/18 at 03:00 Amiodarone HCl 900 mg/Dextrose 500 ml @ 0 mls/hr Q0M IV Last administered on 11/29/18 08:46; Admin Dose 16.7 MLS/HR; Start 11/26/18 at 09:00 Albumin Human 100 ml @ 100 mls/hr DURING DIALYSIS PRN IV HYPOTENSION DURING HD; Start 11/26/18 at 14:00 Clindamycin HCl/ Dextrose 50 ml @ 50 mls/hr Q8 IVPB Last administered on 11/29/18 05:39; Admin Dose 50 MLS/HR; Start 11/26/18 at 14:00 Diagnostic Test (Pha) (Accu-Chek) 1 ea Q4 XX Last administered on 11/29/18 05:11; Admin Dose 1 EA; Start 11/27/18 at 13:00 Levothyroxine Sodium (Synthroid) 75 mcg BEFORE BREAKFAST NGT Last administered on 11/29/18at 08:36; Admin Dose 75 MCG; Start 11/29/18 at 07:00 Midazolam HCl 50 ml @ 1 mls/hr TITRATE IV Last administered on 11/29/18at 11:16; Admin Dose 1 MLS/HR; Start 11/29/18 at 09:00 KELSIE ELY NP Nov 29, 2018 12:58
[2018-11-29] MEDS: CASPOFUNGIN 50 MG in SOD CHLORIDE 0.9% 250 ML IVPB SCH (13:56)
[2018-11-29] MEDS: NORepinephrine 8MG/250 ML (PMX 250 ML IV SCH (16:26)
--- NOTE | 2018-11-29 18:23 | PN ---
Date/Time of Note Date/Time of Note DATE: 11/29/18 TIME: 18:21 Assessment/Plan VTE Prophylaxis Risk score (from Nsg)>0 risk: 9 SCD applied (from Nsg): Yes Pharmacological prophylaxis: heparin Lines/Catheters IV Catheter Type (from Nrsg): Mid Line Urinary Cath still in place: No Assessment/Plan Hospital Course Intubated sedated Chronically ill appearing Lungs clear Distended belly, firm masses Peripheral edema present LUE wound wrapped 58 yo female with ESRD, cirrohsihs, DMII presents with hypoglycemia, leg infection. Suffered cardiac and respiratory arrest, now intubated Cardiac arrest, acute respiratory failure: - Continue vasopressors and mechanical ventilation per pulmonary - Goals of care discussions with family Hypoglycemia: No history of diabetes and patient not on any insulin or sulfonylurea or any other diabetic medication - Continue IV dextrose and tube feeds Left lower extremity wound - Antibiotics per ID -Venous study was negative for DVT A Fib: - Amiodarone ESRD with fluid overload - HD per nephrology Pancytopenia with coagulopathy, thrombocytopenia: Patient had workup here during recent hospitalization. 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 -Picture of pancytopenia with macrocytic anemia and coagulopathy does appear consistent with liver disease, await liver ultrasound Hypothyroidism: Continue Synthroid History of pacemaker: No acute issue Ascites secondary to fluid overload and/or liver disease: Status post parac entesis 3 weeks ago with removal of 4.5 L - s/p paracentesis, in addition patient's blood pressure is low 11. Chronic peritoneal dialysis: This is not being used. Not being removed because of the severe thrombocytopenia. This can be addressed at [facility] where she usually gets her care 12. Failure to thrive: Patient is very cachectic -Nutrition consult Prophylaxis: SCDs DC planning: Poor prognosis. Continue goals of care discussions with family. So far unwilling to consider withdrawal of care. Very upset to be asked about it and don't want us to bring it up again Result Diagram: 11/29/18 0455 11/29/18 0455 Results 24hrs Laboratory Tests Test 11/28/18 21:06 11/29/18 01:25 11/29/18 04:55 11/29/18 05:18 Bedside Glucose 71 96 111 White Blood Count 11.6 #H Red Blood Count 4.36 # Hemoglobin 12.6 # Hematocrit 35.9 #L Mean Corpuscular 82.3 Volume Mean Corpuscular 28.9 L Hemoglobin Mean Corpuscular 35.1 Hemoglobin Concent Red Cell 15.3 H Distribution Width Platelet Count 10 #*L Mean Platelet Volume Immature 1.500 H Granulocytes % Neutrophils % Segmented 75 Neutrophils % (Manual) Band Neutrophils % 1 (Manual) Lymphocytes % Lymphocytes % 20 (Manual) Monocytes % Monocytes % 2 (Manual) Eosinophils % Eosinophils % 2 (Manual) Basophils % Nucleated Red 0.3 H Blood Cells % Immature 0.170 H Granulocytes # Neutrophils # Neutrophils # 8.7 H (Manual) Band Neutrophils # 0.1 Lymphocytes 2.3 (Manual) Lymphocytes # Monocytes # Monocytes # 0.2 L (Manual) Eosinophils # Basophils # Nucleated Red Blood Cells # Toxic Granulation 1+ Platelet Estimate SIG DECREASED Poikilocytosis 3+ Anisocytosis 2+ Macrocytosis 1+ Sodium Level 130 L Potassium Level 4.7 Chloride Level 98 Carbon Dioxide 20 L Level Anion Gap 12 Blood Urea 35 H Nitrogen Creatinine 1.08 H Est Glomerular 52 L Filtrat Rate mL/min Glucose Level 102 # Calcium Level 8.0 L Total Bilirubin 3.3 H Direct Bilirubin 1.60 H Indirect Bilirubin 1.7 H Aspartate Amino 30 Transf (AST/SGOT) Alanine 10 L Aminotransferase ( ALT/SGPT) Alkaline 216 H Phosphatase Total Protein 5.2 L Albumin 2.3 L Globulin 2.90 Albumin/Globulin 0.79 Ratio Test 11/29/18 08:48 11/29/18 13:14 11/29/18 13:19 Bedside Glucose 107 104 Hepatitis B NEGATIVE Surface Antigen Hepatitis B Core NEGATIVE Total Antibody Hepatitis C NEGATIVE Antibody Subjective 24 Hr Interval Summary Free Text/Dictation remains intubated, sedated, on 5 of levophed family requesting repeat paracentesis Exam/Review of Systems Exam Vitals Vital Signs Date Temp Pulse Resp B/P (MAP) Pulse Ox O2 O2 Flow FiO2 Time Delivery Rate 11/29/18 60 20 98/74 (82) 99 18:00 11/29/18 30 17:13 11/29/18 Mechanical 17:00 Ventilator 11/29/18 98.2 16:00 Intake and Output 11/28/18 11/28/18 11/29/18 1515:00 23:00 07:00 IntakeIntake Total 1138.720 ml 669.735 ml 620.660 ml OutputOutput Total 3200 ml BalanceBalance -2061.280 ml 669.735 ml 620.660 ml Results Results 24hrs Laboratory Tests Test 11/28/18 21:06 11/29/18 01:25 11/29/18 04:55 11/29/18 05:18 Bedside Glucose 71 96 111 White Blood Count 11.6 #H Red Blood Count 4.36 # Hemoglobin 12.6 # Hematocrit 35.9 #L Mean Corpuscular 82.3 Volume Mean Corpuscular 28.9 L Hemoglobin Mean Corpuscular 35.1 Hemoglobin Concent Red Cell 15.3 H Distribution Width Platelet Count 10 #*L Mean Platelet Volume Immature 1.500 H Granulocytes % Neutrophils % Segmented 75 Neutrophils % (Manual) Band Neutrophils % 1 (Manual) Lymphocytes % Lymphocytes % 20 (Manual) Monocytes % Monocytes % 2 (Manual) Eosinophils % Eosinophils % 2 (Manual) Basophils % Nucleated Red 0.3 H Blood Cells % Immature 0.170 H Granulocytes # Neutrophils # Neutrophils # 8.7 H (Manual) Band Neutrophils # 0.1 Lymphocytes 2.3 (Manual) Lymphocytes # Monocytes # Monocytes # 0.2 L (Manual) Eosinophils # Basophils # Nucleated Red Blood Cells # Toxic Granulation 1+ Platelet Estimate SIG DECREASED Poikilocytosis 3+ Anisocytosis 2+ Macrocytosis 1+ Sodium Level 130 L Potassium Level 4.7 Chloride Level 98 Carbon Dioxide 20 L Level Anion Gap 12 Blood Urea 35 H Nitrogen Creatinine 1.08 H Est Glomerular 52 L Filtrat Rate mL/min Glucose Level 102 # Calcium Level 8.0 L Total Bilirubin 3.3 H Direct Bilirubin 1.60 H Indirect Bilirubin 1.7 H Aspartate Amino 30 Transf (AST/SGOT) Alanine 10 L Aminotransferase ( ALT/SGPT) Alkaline 216 H Phosphatase Total Protein 5.2 L Albumin 2.3 L Globulin 2.90 Albumin/Globulin 0.79 Ratio Test 11/29/18 08:48 11/29/18 13:14 11/29/18 13:19 Bedside Glucose 107 104 Hepatitis B NEGATIVE Surface Antigen Hepatitis B Core NEGATIVE Total Antibody Hepatitis C NEGATIVE Antibody Medications Medication Current Medications Ondansetron HCl (Zofran Inj) 4 mg Q6H PRN IV NAUSEA AND/OR VOMITING Last administered on 11/21/18at 16:50; Admin Dose 4 MG; Start 11/21/18 at 05:30 Albuterol/ Ipratropium (Duoneb) 3 ml Q2H RESP THERAPY PRN NEB SHORTNESS OF BREATH; Start 11/21/18 at 05:30 Acetaminophen (Tylenol Liquid) 650 mg Q6H PRN PO PAIN LEVEL 1-3 OR FEVER; Start 11/21/18 at 05:30 Amiodarone HCl (Cordarone) 200 mg BID PO Last administered on 11/26/18at 08:14; Admin Dose 200 MG; Start 11/21/18 at 09:00; Status Hold Folic Acid (Folic Acid) 1 mg DAILY PO Last administered on 11/29/18at 08:36; Admin Dose 1 MG; Start 11/21/18 at 09:00 Meropenem/Sodium Chloride 50 ml @ 100 mls/hr Q12 IVPB Last administered on 11/29/18at 08:52; Admin Dose 100 MLS/HR; Start 11/21/18 at 21:00 Norepinephrine 250 ml @ 1.875 mls/ hr TITRATE IV Last administered on 11/29/18at 16:26; Admin Dose 9.375 MLS/HR; Start 11/21/18 at 19:00 Caspofungin 50 mg/ Sodium Chloride 250 ml @ 250 mls/hr Q24H IVPB Last administered on 11/29/18at 13:56; Admin Dose 250 MLS/HR; Start 11/24/18 at 13:00 Miscellaneous Information 1 ea NOTE XX ; Start 11/23/18 at 13:30 Glucose (Glutose) 15 gm Q15M PRN PO DECREASED GLUCOSE; Start 11/23/18 at 13:30 Glucose (Glutose) 22.5 gm Q15M PRN PO DECREASED GLUCOSE; Start 11/23/18 at 13:30 Dextrose (D50w Syringe) 25 ml Q15M PRN IV DECREASED GLUCOSE Last administered on 11/26/18at 17:41; Admin Dose 25 ML; Start 11/23/18 at 13:30 Dextrose (D50w Syringe) 50 ml Q15M PRN IV DECREASED GLUCOSE Last administered on 11/26/18at 13:03; Admin Dose 50 ML; Start 11/23/18 at 13:30 Glucagon (Glucagen) 1 mg Q15M PRN IM DECREASED GLUCOSE; Start 11/23/18 at 13:30 Glucose (Glutose) 15 gm Q15M PRN BUCCAL DECREASED GLUCOSE; Start 11/23/18 at 13:30 Propofol 100 ml @ 1.59 mls/hr Q12H IV Last administered on 11/28/18 22:39; Admin Dose 3.18 MLS/HR; Start 11/24/18 at 00:00 Phenylephrine HCl 80 mg/Dextrose 250 ml @ 18.75 mls/ hr TITRATE IV ; Start at 00:00 Heparin Sodium (Porcine) (Heparin (1000 Units/ml)) 6,300 unit AFTER DIALYSIS CATHETER Last administered on 11/28/18 12:58; Admin Dose 6,300 UNIT; Start 11/24/18 at 17:30 Sodium Phosphate (Neutra-Phos) 250 mg BID GTB Last administered on 11/29/18 08:36; Admin Dose 250 MG; Start 11/25/18 at 09:00 Famotidine (Pepcid) 20 mg DAILY PO Last administered on 11/29/18 08:36; Admin Dose 20 MG; Start 11/26/18 at 09:00 Dextrose 1,000 ml @ 30 mls/hr Q24H IV Last administered on 11/29/18 08:35; Admin Dose 30 MLS/HR; Start 11/25/18 at 16:00 Alteplase, Recombinant (Cathflo (Activase)) 2 mg MAY REPEAT X1 PRN CATHETER IF CATHETER REMAINS OCCULUDED Last administered on 11/26/18 09:04; Admin Dose 2 MG; Start 11/26/18 at 03:00 Amiodarone HCl 900 mg/Dextrose 500 ml @ 0 mls/hr Q0M IV Last administered on 11/29/18 08:46; Admin Dose 16.7 MLS/HR; Start 11/26/18 at 09:00 Albumin Human 100 ml @ 100 mls/hr DURING DIALYSIS PRN IV HYPOTENSION DURING HD; Start 11/26/18 at 14:00 Clindamycin HCl/ Dextrose 50 ml @ 50 mls/hr Q8 IVPB Last administered on 11/29/18 15:59; Admin Dose 50 MLS/HR; Start 11/26/18 at 14:00 Diagnostic Test (Pha) (Accu-Chek) 1 ea Q4 XX Last administered on 11/29/18at 05:11; Admin Dose 1 EA; Start 11/27/18 at 13:00 Levothyroxine Sodium (Synthroid) 75 mcg BEFORE BREAKFAST NGT Last administered on 11/29/18at 08:36; Admin Dose 75 MCG; Start 11/29/18 at 07:00 Midazolam HCl 50 ml @ 1 mls/hr TITRATE IV Last administered on 11/29/18at 11:16; Admin Dose 1 MLS/HR; Start 11/29/18 at 09:00 JOSLYN LANDRUM MD Nov 29, 2018 18:22
[2018-11-30] VITALS (107 sets, daily range): BP systolic 72–132; BP diastolic 52–91; PULSE 54–103; RESP 14–33
[2018-11-30] MEDS: ACCU-CHEK XX SCH ×6 (01:00→20:43)
[2018-11-30] MEDS: MIDAZOLAM (DRIP) 50 mg/50 mL 50 ML IV SCH (05:15)
[2018-11-30] MEDS: CLINDAMYCIN 600 MG/D5W (PMX) 50 ML IVPB SCH ×3 (05:16→22:51)
[2018-11-30] MEDS ORDERED: MISCELLANEOUS IV SOLUTION 1,000 ML IV SCH (08:00)
--- NOTE | 2018-11-30 08:13 | PN ---
DATE: 11/30/2018 SUBJECTIVE: The patient remains critically ill on pressor support. The patient is intubated, remain s obtunded. No other events noted. The patient is pending possible paracentesis today and hemodialy sis. OBJECTIVE: VITAL SIGNS: Blood pressure is 103/73, respirations 20, pulse 58, temperature 98.2. HEENT: Head is normocephalic. NECK: Supple. HEART: Regular rate. LUNGS: Show diminished breath sounds at the base. ABDOMEN: Soft, nontender to palpation without rebound or guarding. EXTREMITIES: Negative for clubbing, cyanosis. Positive edema. DERMATOLOGIC: No rashes. MUSCULOSKELETAL: No joint effusion. NEUROLOGIC: No change in exam. MEDICATIONS: The patient's medications have been reviewed. LABORATORY DATA: From 11/30/2018 was reviewed. IMAGING STUDIES: Reviewed. Chest x-ray was reviewed. MICROBIOLOGY: Cultures have been reviewed. ASSESSMENT AND PLAN: 1. End-stage renal disease. The patient's access is Perm-A-Cath. Anticipate hemodialysis today for solute clearance and volume removal. Continue to monitor. 2. Volume overload with diffuse anasarca secondary to end-stage renal disease, capillary leak, IV fl uids. Continue ultrafiltration with hemodialysis if hemodynamically stable. 3. Septic shock secondary to pneumonia and bacteremia. The patient's repeat cultures have been nega tive. Continue pressor support, broad spectrum antibiotics. Follow up with Infectious Disease. 4. Anemia. Monitor hemoglobin and hematocrit levels. Continue Epogen. 5. Hypernatremia. The patient will be dialyzed on 140 sodium bath. The patient's hypertonic fluids will be changed. Continue to monitor. 6. Hypokalemia. Continue to monitor and replete as needed. 7. Mineral bone disorder, monitor calcium and phosphorus levels. The patient is currently hyperphos phatemic. We will discontinue sodium phosphate. 8. Ventilator-dependent respiratory failure. Vent settings and ABG was reviewed. Continue to monit or. 9. Acute encephalopathy. Etiology is toxic metabolic. 10. 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 Continue to monitor. Platelet levels will remain low, tr ansfuse as needed. 11. Ascites. The patient is pending paracentesis. 12. Hypothyroidism. Continue Synthroid. 13. Hypomagnesemia. Continue to monitor. 14. Lactic acidosis. 15. Acute encephalopathy, etiology is toxic metabolic. Please note I spent over 30 minutes of critical care time with this patient. Dictated By: SARKIA JOINER DO NR/EZIO Conf#: [id number] DID#: [id number] CC: LORRAINE JOHNSON MD; JOSLYN LANDRUM MD; MANDY BATES MD;*EndCC*
[2018-11-30] MEDS: BALSAM PERU/CASTOR OIL 60 GM TUBE TOP SCH ×2 (08:17→20:43)
[2018-11-30] MEDS: MEROPENEM 500MG/50 ML (PMX) 50 ML IVPB SCH ×2 (08:17→20:42)
[2018-11-30] MEDS: FAMOTIDINE 20 MG TAB PO SCH (08:17)
[2018-11-30] MEDS: FOLIC ACID 1 MG TAB PO SCH (08:17)
[2018-11-30] MEDS: ALBUMIN HUMAN 25% 100 ML IV PRN ×2 (09:47→10:56)
--- NOTE | 2018-11-30 09:53 | CONS ---
Consult Date/Type/Reason Admit Date/Time Nov 21, 2018 at 04:53 Initial Consult Date Type of Consult Pulmonary Date/Time of Note DATE: 11/30/18 TIME: 09:52 Subjective Remains somnolent on mechanical ventilation. Continues vasopressor support. Pending hemodialysis today. Objective Vital Signs Date Temp Pulse Resp B/P (MAP) Pulse Ox O2 O2 Flow FiO2 Time Delivery Rate 11/30/18 62 20 106/69 09:30 (81) 11/30/18 97 Mechanical 09:00 Ventilator 11/30/18 30 08:30 11/30/18 97.0 07:00 Intake and Output 11/29/18 11/29/18 11/30/18 1515:00 23:00 07:00 IntakeIntake Total 823.340 ml 542.875 ml 430.7 ml BalanceBalance 823.340 ml 542.875 ml 430.7 ml Exam GENERAL: Thin cachectic lady on mechanical ventilation VITAL SIGNS: per chart NECK: Supple. No JVD or lymphadenopathy. CARDIAC EXAM: S1, S2. No added sounds or murmurs. CHEST: Diminished air entry bilaterally ABDOMEN: Soft, nontender. No guarding or rebound. EXTREMITIES: No cyanosis, clubbing or edema. NEUROLOGIC: Generalized weakness. Vent Setting Ventilator Support Mode: AC Fraction of Inspired Oxygen pe: 30 Positive End Expiratory Pressu: 5.0 Results/Medications Result Diagram: 11/30/18 0400 11/30/18 0400 Results 24 hrs Laboratory Tests Test 11/29/18 13:14 11/29/18 13:19 11/29/18 18:15 11/29/18 22:07 Hepatitis B NEGATIVE Surface Antigen Hepatitis B Core NEGATIVE Total Antibody Hepatitis C NEGATIVE Antibody Bedside Glucose 104 99 101 Test 11/30/18 04:00 11/30/18 08:23 White Blood Count 13.2 H Red Blood Count 4.22 Hemoglobin 12.3 Hematocrit 34.7 L Mean Corpuscular 82.2 Volume Mean Corpuscular 29.1 Hemoglobin Mean Corpuscular 35.4 Hemoglobin Concent Red Cell 15.7 H Distribution Width Platelet Count 18 #*L Mean Platelet Volume Immature 0.800 H Granulocytes % Neutrophils % Segmented 78 H Neutrophils % (Manual) Band Neutrophils % 2 (Manual) Lymphocytes % Lymphocytes % 17 (Manual) Monocytes % Monocytes % 3 (Manual) Eosinophils % Basophils % Nucleated Red 0.0 Blood Cells % Immature 0.100 H Granulocytes # Neutrophils # Neutrophils # 10.3 H (Manual) Band Neutrophils # 0.2 Lymphocytes 2.2 (Manual) Lymphocytes # Monocytes # Monocytes # 0.3 (Manual) Eosinophils # Basophils # Nucleated Red Blood Cells # Platelet Estimate SIG DECREASED Poikilocytosis 1+ Anisocytosis 1+ Macrocytosis 1+ Prothrombin Time 18.9 H Prothrombin Time 1.5 Ratio INR International 1.57 Normalized Ratio Sodium Level 127 L Potassium Level 4.9 Chloride Level 96 L Carbon Dioxide 20 L Level Anion Gap 11 Blood Urea 48 #H Nitrogen Creatinine 1.38 H Est Glomerular 39 L Filtrat Rate mL/min Glucose Level 107 Calcium Level 7.4 L Phosphorus Level 6.9 #H Magnesium Level 1.8 Random Cortisol 30.7 Bedside Glucose 109 Medications Current Medications Ondansetron HCl (Zofran Inj) 4 mg Q6H PRN IV NAUSEA AND/OR VOMITING Last administered on 11/21/18at 16:50; Admin Dose 4 MG; Start 11/21/18 at 05:30 Albuterol/ Ipratropium (Duoneb) 3 ml Q2H RESP THERAPY PRN NEB SHORTNESS OF BREATH; Start 11/21/18 at 05:30 Acetaminophen (Tylenol Liquid) 650 mg Q6H PRN PO PAIN LEVEL 1-3 OR FEVER; Start 11/21/18 at 05:30 Folic Acid (Folic Acid) 1 mg DAILY PO Last administered on 11/30/18at 08:17; Admin Dose 1 MG; Start 11/21/18 at 09:00 Meropenem/Sodium Chloride 50 ml @ 100 mls/hr Q12 IVPB Last administered on 11/30/18at 08:17; Admin Dose 100 MLS/HR; Start 11/21/18 at 21:00 Norepinephrine 250 ml @ 1.875 mls/ hr TITRATE IV Last administered on 11/29/18 16:26; Admin Dose 9.375 MLS/HR; Start 11/21/18 at 19:00 Caspofungin 50 mg/ Sodium Chloride 250 ml @ 250 mls/hr Q24H IVPB Last administered on 11/29/18at 13:56; Admin Dose 250 MLS/HR; Start 11/24/18 at 13:00 Miscellaneous Information 1 ea NOTE XX ; Start 11/23/18 at 13:30 Glucose (Glutose) 15 gm Q15M PRN PO DECREASED GLUCOSE; Start 11/23/18 at 13:30 Glucose (Glutose) 22.5 gm Q15M PRN PO DECREASED GLUCOSE; Start 11/23/18 at 13:30 Dextrose (D50w Syringe) 25 ml Q15M PRN IV DECREASED GLUCOSE Last administered on 11/26/18at 17:41; Admin Dose 25 ML; Start 11/23/18 at 13:30 Dextrose (D50w Syringe) 50 ml Q15M PRN IV DECREASED GLUCOSE Last administered on 11/26/18at 13:03; Admin Dose 50 ML; Start 11/23/18 at 13:30 Glucagon (Glucagen) 1 mg Q15M PRN IM DECREASED GLUCOSE; Start 11/23/18 at 13:30 Glucose (Glutose) 15 gm Q15M PRN BUCCAL DECREASED GLUCOSE; Start 11/23/18 at 13:30 Propofol 100 ml @ 1.59 mls/hr Q12H IV Last administered on 11/28/18 22:39; Admin Dose 3.18 MLS/HR; Start 11/24/18 at 00:00 Phenylephrine HCl 80 mg/Dextrose 250 ml @ 18.75 mls/ hr TITRATE IV ; Start 11/24/18 at 00:00 Heparin Sodium (Porcine) (Heparin (1000 Units/ml)) 6,300 unit AFTER DIALYSIS CATHETER Last administered on 11/28/18at 12:58; Admin Dose 6,300 UNIT; Start 11/24/18 at 17:30 Famotidine (Pepcid) 20 mg DAILY PO Last administered on 11/30/18 08:17; Admin Dose 20 MG; Start 11/26/18 at 09:00 Dextrose 1,000 ml @ 30 mls/hr Q24H IV Last administered on 11/29/18 08:35; Admin Dose 30 MLS/HR; Start 11/25/18 at 16:00 Alteplase, Recombinant (Cathflo (Activase)) 2 mg MAY REPEAT X1 PRN CATHETER IF CATHETER REMAINS OCCULUDED Last administered on 11/26/18 09:04; Admin Dose 2 MG; Start 11/26/18 at 03:00 Albumin Human 100 ml @ 100 mls/hr DURING DIALYSIS PRN IV HYPOTENSION DURING HD Last administered on 4/22/19at 09:47; Admin Dose 100 MLS/HR; Start 11/26/18 at 14:00 Clindamycin HCl/ Dextrose 50 ml @ 50 mls/hr Q8 IVPB Last administered on 11/30/18at 05:16; Admin Dose 50 MLS/HR; Start 11/26/18 at 14:00 Diagnostic Test (Pha) (Accu-Chek) 1 ea Q4 XX Last administered on 11/30/18at 08:28; Admin Dose 1 EA; Start 11/27/18 at 13:00 Levothyroxine Sodium (Synthroid) 75 mcg BEFORE BREAKFAST NGT Last administered on 11/29/18at 08:36; Admin Dose 75 MCG; Start 11/29/18 at 07:00 Midazolam HCl 50 ml @ 1 mls/hr TITRATE IV Last administered on 11/30/18at 05:15; Admin Dose 50 MLS/HR; Start 11/29/18 at 09:00 Sodium Chloride 154 meq/Dextrose 1,038.5 ml @ 30 mls/hr Q24H IV ; Start 11/10 09/29 at 10:00 Amiodarone HCl (Cordarone) 200 mg BID PO ; Start 11/30/18 at 09:30 Assessment/Plan Hospital Course (Demo Recall) assessment 1. Persistent septic shock likely secondary to pneumonia 2. Acute hypoxemic respiratory failure 3. History of cardiomyopathy 4. Severe thrombocytopenia with anemia no active GI bleeding 5. End-stage renal failure on hemodialysis Plan 1. Monitor H&H posttransfusion 2. Titrate pressors to keep map greater than 65 3. Tube feeding as tolerated 4. Random cortisol not consistent with adrenal insufficiency 5. Hemodialysis as tolerated 6. DC IV amiodarone transition back to p.o. Prognosis remains extremely poor. Critical care time 40 minutes. Long discussion with family at bedside. NINA MORRIS MD, [facility] Nov 30, 2018 09:53
[2018-11-30] MEDS: AMIODARONE 200 MG TAB PO SCH ×2 (09:55→20:43)
[2018-11-30] MEDS: SODIUM CHLORIDE 23.4% 154 MEQ in DEXTROSE 10% 1,000 ML IV SCH (10:24)
[2018-11-30] MEDS: NORepinephrine 8MG/250 ML (PMX 250 ML IV SCH (11:17)
[2018-11-30] MEDS: PROPOFOL 100 ML IV SCH ×2 (12:00)
[2018-11-30] MEDS: HEPARIN 1000 UNITS/ML 10 ML INJ CATHETER SCH (12:27)
[2018-11-30] MEDS: CASPOFUNGIN 50 MG in SOD CHLORIDE 0.9% 250 ML IVPB SCH (12:28)
--- NOTE | 2018-11-30 13:48 | CONS ---
Assessment/Plan Assessment/Plan Hospital Course (Demo Recall) No acute changes overnight patient is status post hemodialysis remains on Levophed no fevers. WBC 13.2 platelets of 18 Antimicrobials: Clindamycin, Cancidas, meropenem Microbiology: Blood culture on admission grew Klebsiella ESBL, repeat blood cultures negative, left thigh wound culture grew Klebsiella ESBL and Leah albicans Allergy: Zosyn, vancomycin Indwelling: Right upper thigh Davie catheter, left femoral triple-lumen catheter, endotracheal tube, orogastric tube, midline Physical examination: This is a chronically ill-appearing cachectic middle-aged woman who is laying comfortably in bed. Head atraumatic normocephalic. Neck is supple. Chest rise symmetrical. Breath sounds diminished bases. Heart: S1-S2, irreg. Abdomen distended. Bowel sounds hypoactive. Extremities with bilateral edema, cyanotic, multiple ecchymotic areas and bruises, left upper thigh dressing present is Assessment: 1. Severe sepsis with MSOF 2. Acute hypoxemic respiratory failure secondary to CHF exacerbation/probable pneumonia 3. Klebsiella ESBL bacteremia 4. 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 End-stage renal disease, hemodialysis dependent 6. Atrial fibrillation 7. Unstageable sacral decubitus 8. History of peritoneal dialysis with peritoneal dialysis still in place 9. Ascites status post paracentesis 3 weeks ago 10. Failure to thrive 11. Progressive thrombocytopenia 12. History of permanent pacemaker Plan: Remains hemodynamically unstable, continue antibiotics, HD per renal, prognosis poor Consultation Date/Type/Reason Admit Date/Time Nov 21, 2018 at 04:53 Initial Consult Date Type of Consult id Date/Time of Note DATE: 11/30/18 TIME: 13:47 Exam/Review of Systems Exam Vitals Vital Signs Date Temp Pulse Resp B/P (MAP) Pulse Ox O2 O2 Flow FiO2 Time Delivery Rate 11/30/18 99 20 100 30 13:19 11/30/18 125/81 12:30 (96) 11/30/18 97.6 Mechanical 12:00 Ventilator Intake and Output 11/29/18 11/29/18 11/30/18 1515:00 23:00 07:00 IntakeIntake Total 823.340 ml 542.875 ml 430.7 ml BalanceBalance 823.340 ml 542.875 ml 430.7 ml Results Result Diagram: 11/30/18 0400 11/30/18 0400 Results 24hrs Laboratory Tests Test 11/29/18 18:15 11/29/18 22:07 11/30/18 04:00 11/30/18 08:23 Bedside Glucose 99 101 109 White Blood Count 13.2 H Red Blood Count 4.22 Hemoglobin 12.3 Hematocrit 34.7 L Mean Corpuscular 82.2 Volume Mean Corpuscular 29.1 Hemoglobin Mean Corpuscular 35.4 Hemoglobin Concent Red Cell 15.7 H Distribution Width Platelet Count 18 #*L Mean Platelet Volume Immature 0.800 H Granulocytes % Neutrophils % Segmented 78 H Neutrophils % (Manual) Band Neutrophils % 2 (Manual) Lymphocytes % Lymphocytes % 17 (Manual) Monocytes % Monocytes % 3 (Manual) Eosinophils % Basophils % Nucleated Red 0.0 Blood Cells % Immature 0.100 H Granulocytes # Neutrophils # Neutrophils # 10.3 H (Manual) Band Neutrophils # 0.2 Lymphocytes 2.2 (Manual) Lymphocytes # Monocytes # Monocytes # 0.3 (Manual) Eosinophils # Basophils # Nucleated Red Blood Cells # Platelet Estimate SIG DECREASED Poikilocytosis 1+ Anisocytosis 1+ Macrocytosis 1+ Prothrombin Time 18.9 H Prothrombin Time 1.5 Ratio INR International 1.57 Normalized Ratio Sodium Level 127 L Potassium Level 4.9 Chloride Level 96 L Carbon Dioxide 20 L Level Anion Gap 11 Blood Urea 48 #H Nitrogen Creatinine 1.38 H Est Glomerular 39 L Filtrat Rate mL/min Glucose Level 107 Calcium Level 7.4 L Phosphorus Level 6.9 #H Magnesium Level 1.8 Random Cortisol 30.7 Test 11/30/18 12:32 Bedside Glucose 138 Medications Medication Current Medications Ondansetron HCl (Zofran Inj) 4 mg Q6H PRN IV NAUSEA AND/OR VOMITING Last administered on 11/21/18at 16:50; Admin Dose 4 MG; Start 11/21/18 at 05:30 Albuterol/ Ipratropium (Duoneb) 3 ml Q2H RESP THERAPY PRN NEB SHORTNESS OF BREATH; Start 11/21/18 at 05:30 Acetaminophen (Tylenol Liquid) 650 mg Q6H PRN PO PAIN LEVEL 1-3 OR FEVER; S tart 11/21/18 at 05:30 Folic Acid (Folic Acid) 1 mg DAILY PO Last administered on 11/30/18at 08:17; A dmin Dose 1 MG; Start 11/21/18 at 09:00 Meropenem/Sodium Chloride 50 ml @ 100 mls/hr Q12 IVPB Last administered on 11/30/18 08:17; Admin Dose 100 MLS/HR; Start 11/21/18 at 21:00 Norepinephrine 250 ml @ 1.875 mls/ hr TITRATE IV Last administered on 11/30/18 11:17; Admin Dose 30 MLS/HR; Start 11/21/18 at 19:00 Caspofungin 50 mg/ Sodium Chloride 250 ml @ 250 mls/hr Q24H IVPB Last administered on 11/30/18 12:28; Admin Dose 250 MLS/HR; Start 11/24/18 at 13:00 Miscellaneous Information 1 ea NOTE XX ; Start 11/23/18 at 13:30 Glucose (Glutose) 15 gm Q15M PRN PO DECREASED GLUCOSE; Start 11/23/18 at 13:30 Glucose (Glutose) 22.5 gm Q15M PRN PO DECREASED GLUCOSE; Start 11/23/18 at 13:30 Dextrose (D50w Syringe) 25 ml Q15M PRN IV DECREASED GLUCOSE Last administered on 11/26/18 17:41; Admin Dose 25 ML; Start 11/23/18 at 13:30 Dextrose (D50w Syringe) 50 ml Q15M PRN IV DECREASED GLUCOSE Last administered on 11/26/18 13:03; Admin Dose 50 ML; Start 11/23/18 at 13:30 Glucagon (Glucagen) 1 mg Q15M PRN IM DECREASED GLUCOSE; Start 11/23/18 at 13:30 Glucose (Glutose) 15 gm Q15M PRN BUCCAL DECREASED GLUCOSE; Start 11/23/18 at 13:30 Propofol 100 ml @ 1.59 mls/hr Q12H IV Last administered on 11/28/18 22:39; Admin Dose 3.18 MLS/HR; Start 11/24/18 at 00:00 Phenylephrine HCl 80 mg/Dextrose 250 ml @ 18.75 mls/ hr TITRATE IV ; Start 11/24/18 at 00:00 Heparin Sodium (Porcine) (Heparin (1000 Units/ml)) 6,300 unit AFTER DIALYSIS CATHETER Last administered on 11/30/18 12:27; Admin Dose 6,300 UNIT; Start 11/24/18 at 17:30 Famotidine (Pepcid) 20 mg DAILY PO Last administered on 11/30/18 08:17; Admin Dose 20 MG; Start 11/26/18 at 09:00 Alteplase, Recombinant (Cathflo (Activase)) 2 mg MAY REPEAT X1 PRN CATHETER IF CATHETER REMAINS OCCULUDED Last administered on 11/26/18 09:04; Admin Dose 2 MG; Start 11/26/18 at 03:00 Albumin Human 100 ml @ 100 mls/hr DURING DIALYSIS PRN IV HYPOTENSION DURING HD Last administered on 11/30/18 10:56; Admin Dose 100 MLS/HR; Start 11/26/18 at 14:00 Clindamycin HCl/ Dextrose 50 ml @ 50 mls/hr Q8 IVPB Last administered on 11/30/18 05:16; Admin Dose 50 MLS/HR; Start 11/26/18 at 14:00 Diagnostic Test (Pha) (Accu-Chek) 1 ea Q4 XX Last administered on 11/30/18 12:37; Admin Dose 1 EA; Start 11/27/18 at 13:00 Levothyroxine Sodium (Synthroid) 75 mcg BEFORE BREAKFAST NGT Last administered on 11/29/18 08:36; Admin Dose 75 MCG; Start 11/29/18 at 07:00 Midazolam HCl 50 ml @ 1 mls/hr TITRATE IV Last administered on 11/30/18 05:15; Admin Dose 50 MLS/HR; Start 11/29/18 at 09:00 Sodium Chloride 154 meq/Dextrose 1,038.5 ml @ 30 mls/hr Q24H IV Last administered on 11/30/18 10:24; Admin Dose 30 MLS/HR; Start 11/30/18 at 10:00 Amiodarone HCl (Cordarone) 200 mg BID PO Last administered on 11/30/18 09:55; Admin Dose 200 MG; Start 11/30/18 at 09:30 KELSIE ELY NP Nov 30, 2018 13:48
--- NOTE | 2018-11-30 14:30 | CONS ---
Assessment/Plan Assessment/Plan Hospital Course 58 yo F with hx of afib, ESRD on peritoneal dialysis, and other comorbidities... who initially presented with ams in the context of hypotension and severe hypoglycemia. Now s/p PEA arrest on 11/24; Targeted temperature therapy was deferred.. She remains protractedly encephalopathic, for which neurology is consulted. On neurologic examination, the pt is able to fix and follow ocularly and grimace, but is without appendicular motor response; she additionally appears to have a L hemispatial neglect...which raises concern for focal intracranial pathology. CXR + PNA Na 127, phos 6.9 plt 18 P: CTH without contrast for further characterization Add ammonia, TSH, B12 Cont medical management per primary [facility] as able Limit sedating medications where possible Will follow clinically Consultation Date/Type/Reason Admit Date/Time Nov 21, 2018 at 04:53 Type of Consult Neurology Reason for Consultation ams Requesting Provider: RIKA STOCK Date/Time of Note DATE: 11/30/18 TIME: 14:30 Hx of Present Illness The pt is currently unable to contribute a hx. She is currently in the ICU, intubated, on levophed gtt. It is elsewhere noted: Hx of Present Illness This is a 58-year-old female with history of hypertension, hypothyroidism, pancytopenia, pacemaker, ESRD, ascites, bilateral pleural effusion and left leg infection with a history of recent graft. Patient was brought to the ER for altered mentation. Patient has a left upper leg infection and is status post graft in September of this year. Patient was admitted recently for infected left leg at [facility] and was just discharged 2 days ago. Patient was noted to be altered an hour after she took Pierre. Upon arrival to the ER however, she was found to be hypotensive with a blood pressure of 77/55 and a severely hypoglycemic with a blood glucose of 24. She was given dextrose with improvement in blood glucose. Her blood pressure also responded to IV fluid. While in the ER, patient became more appropriate. She has however been placed on BiPAP for hypercapnic respiratory failure. Patient was admitted here recently for sepsis. CT at that time shows large volume of loculated ascites with peritoneal calcifications secondary to chronic peritoneal dialysis. She underwent paracentesis with removal of 4.5 L of fluid. Patient was pancytopenic with severe thrombocytopenia. He was mentioned documentation that thrombocytopenia was thought to be possibly from HIT. Her chronic peritoneal dialysis was not removed because of the thrombocytopenia. Subjective hx not possible: pt non-verbal, pt critical, pt critical status Exam/Review of Systems Exam Vitals Vital Signs Date Temp Pulse Resp B/P (MAP) Pulse Ox O2 O2 Flow FiO2 Time Delivery Rate 11/30/18 60 20 122/58 100 14:15 (79) 11/30/18 Mechanical 14:00 Ventilator 11/30/18 30 13:19 11/30/18 97.6 12:00 Intake and Output 11/29/18 11/29/18 11/30/18 1515:00 23:00 07:00 IntakeIntake Total 823.340 ml 542.875 ml 430.7 ml BalanceBalance 823.340 ml 542.875 ml 430.7 ml Exam PE: Gen Appearance: No Apparent Distress HEENT: Intubated Cardiovascular: afib on the monitor Abdomen: Soft Extremities: Dry NE: The patient was awake with eyes open and nonverbal. Arousable to voice; blinks to threat. Able to track on the R. Able to intermittently follow simple appendicular commands. Cranial nerve examination was limited by mental status. Pupils were equal and reactive to light. There was no afferent pupillary defect. Funduscopic examination was limited. Face was grossly symmetric, w/ present corneal and cough reflexes. Tone was normal. Muscle bulk was severely diminished; cachetic. I did not see fasciculations. The patient grimaced to noxious stimuli; she was otherwise unable to withdraw to noxious stimulation x 4. Coordination and gait testing was limited by mental status. Arm and leg reflexes were symmetric. Alvarez's sign was absent. Plantar responses were flexor. Results Result Diagram: 11/30/18 0400 11/30/18 0400 Results 24hrs Laboratory Tests Test 11/29/18 18:15 11/29/18 22:07 11/30/18 04:00 11/30/18 08:23 Bedside Glucose 99 101 109 White Blood Count 13.2 H Red Blood Count 4. Hemoglobin 12.3 Hematocrit 34.7 L Mean Corpuscular 82.2 Volume Mean Corpuscular 29.1 Hemoglobin Mean Corpuscular 35.4 Hemoglobin Concent Red Cell 15.7 H Distribution Width Platelet Count 18 #*L Mean Platelet Volume Immature 0.800 H Granulocytes % Neutrophils % Segmented 78 H Neutrophils % (Manual) Band Neutrophils % 2 (Manual) Lymphocytes % Lymphocytes % 17 (Manual) Monocytes % Monocytes % 3 (Manual) Eosinophils % Basophils % Nucleated Red 0.0 Blood Cells % Immature 0.100 H Granulocytes # Neutrophils # Neutrophils # 10.3 H (Manual) Band Neutrophils # 0.2 Lymphocytes 2.2 (Manual) Lymphocytes # Monocytes # Monocytes # 0.3 (Manual) Eosinophils # Basophils # Nucleated Red Blood Cells # Platelet Estimate SIG DECREASED Poikilocytosis 1+ Anisocytosis 1+ Macrocytosis 1+ Prothrombin Time 18.9 H Prothrombin Time 1.5 Ratio INR International 1.57 Normalized Ratio Sodium Level 127 L Potassium Level 4.9 Chloride Level 96 L Carbon Dioxide 20 L Level Anion Gap 11 Blood Urea 48 #H Nitrogen Creatinine 1.38 H Est Glomerular 39 L Filtrat Rate mL/min Glucose Level 107 Calcium Level 7.4 L Phosphorus Level 6.9 #H Magnesium Level 1.8 Random Cortisol 30.7 Test 11/30/18 12:32 Bedside Glucose 138 Medications Medication Current Medications Ondansetron HCl (Zofran Inj) 4 mg Q6H PRN IV NAUSEA AND/OR VOMITING Last administered on 11/21/18at 16:50; Admin Dose 4 MG; Start 11/21/18 at 05:30 Albuterol/ Ipratropium (Duoneb) 3 ml Q2H RESP THERAPY PRN NEB SHORTNESS OF BREATH; Start 11/21/18 at 05:30 Acetaminophen (Tylenol Liquid) 650 mg Q6H PRN PO PAIN LEVEL 1-3 OR FEVER; Start 11/21/18 at 05:30 Folic Acid (Folic Acid) 1 mg DAILY PO Last administered on 11/30/18at 08:17; Admin Dose 1 MG; Start 11/21/18 at 09:00 Meropenem/Sodium Chloride 50 ml @ 100 mls/hr Q12 IVPB Last administered on 11/30/18 08:17; Admin Dose 100 MLS/HR; Start 11/21/18 at 21:00 Norepinephrine 250 ml @ 1.875 mls/ hr TITRATE IV Last administered on 11/30/18 11:17; Admin Dose 30 MLS/HR; Start 11/21/18 at 19:00 Caspofungin 50 mg/ Sodium Chloride 250 ml @ 250 mls/hr Q24H IVPB Last administered on 11/30/18 12:28; Admin Dose 250 MLS/HR; Start 11/24/18 at 13:00 Miscellaneous Information 1 ea NOTE XX ; Start 11/23/18 at 13:30 Glucose (Glutose) 15 gm Q15M PRN PO DECREASED GLUCOSE; Start 11/23/18 at 13:30 Glucose (Glutose) 22.5 gm Q15M PRN PO DECREASED GLUCOSE; Start 11/23/18 at 13:30 Dextrose (D50w Syringe) 25 ml Q15M PRN IV DECREASED GLUCOSE Last administered on 11/26/18 17:41; Admin Dose 25 ML; Start 11/23/18 at 13:30 Dextrose (D50w Syringe) 50 ml Q15M PRN IV DECREASED GLUCOSE Last administered on 11/26/18 13:03; Admin Dose 50 ML; Start 11/23/18 at 13:30 Glucagon (Glucagen) 1 mg Q15M PRN IM DECREASED GLUCOSE; Start 11/23/18 at 13:30 Glucose (Glutose) 15 gm Q15M PRN BUCCAL DECREASED GLUCOSE; Start 11/23/18 at 13:30 Propofol 100 ml @ 1.59 mls/hr Q12H IV Last administered on 11/28/18 22:39; Admin Dose 3.18 MLS/HR; Start 11/24/18 at 00:00 Phenylephrine HCl 80 mg/Dextrose 250 ml @ 18.75 mls/ hr TITRATE IV ; Start 11/24/18 at 00:00 Heparin Sodium (Porcine) (Heparin (1000 Units/ml)) 6,300 unit AFTER DIALYSIS CATHETER Last administered on 11/30/18 12:27; Admin Dose 6,300 UNIT; Start 11/24/18 at 17:30 Famotidine (Pepcid) 20 mg DAILY PO Last administered on 11/30/18 08:17; Admin Dose 20 MG; Start 11/26/18 at 09:00 Alteplase, Recombinant (Cathflo (Activase)) 2 mg MAY REPEAT X1 PRN CATHETER IF CATHETER REMAINS OCCULUDED Last administered on 11/26/18 09:04; Admin Dose 2 MG; Start 11/26/18 at 03:00 Albumin Human 100 ml @ 100 mls/hr DURING DIALYSIS PRN IV HYPOTENSION DURING HD Last administered on 11/30/18 10:56; Admin Dose 100 MLS/HR; Start 11/26/18 at 14:00 Clindamycin HCl/ Dextrose 50 ml @ 50 mls/hr Q8 IVPB Last administered on 11/30/18 14:05; Admin Dose 50 MLS/HR; Start 11/26/18 at 14:00 Diagnostic Test (Pha) (Accu-Chek) 1 ea Q4 XX Last administered on 11/30/18 12:37; Admin Dose 1 EA; Start 11/27/18 at 13:00 Levothyroxine Sodium (Synthroid) 75 mcg BEFORE BREAKFAST NGT Last administered on 11/29/18 08:36; Admin Dose 75 MCG; Start 11/29/18 at 07:00 Midazolam HCl 50 ml @ 1 mls/hr TITRATE IV Last administered on 11/30/18 05:15; Admin Dose 50 MLS/HR; Start 11/29/18 at 09:00 Sodium Chloride 154 meq/Dextrose 1,038.5 ml @ 30 mls/hr Q24H IV Last administered on 11/30/18at 10:24; Admin Dose 30 MLS/HR; Start 11/30/18 at 10:00 Amiodarone HCl (Cordarone) 200 mg BID PO Last administered on 11/30/18 09:55; Admin Dose 200 MG; Start 11/30/18 at 09:30 Past Medical History reviewed Medical History: hypertension, hypothyroid, renal disease, other (See HPI) Home Meds Reported Medications Folic Acid* (Folic Acid*) 1 Mg Tablet, 1 MG PO DAILY, TAB 08/10/18 Amiodarone Hcl* (Amiodarone Hcl*) 200 Mg Tablet, 200 MG PO BID, #60 TAB 08/10/18 Pantoprazole* (Protonix*) 40 Mg Tablet.dr, 40 MG PO DAILY, TAB 08/10/18 Multivit/Ca Carb/B Cmplx/Fa* (Iram-Ximoara*) 1 Tab Tab, 1 TAB PO DAILY, TAB 08/10/18 Levothyroxine Sodium* (Levoxyl*) 75 Mcg Tablet, 75 MCG PO BEFORE BREAKFAST, #30 TAB 08/10/18 Medications Current Medications Ondansetron HCl (Zofran Inj) 4 mg Q6H PRN IV NAUSEA AND/OR VOMITING Last administered on 11/21/18at 16:50; Admin Dose 4 MG; Start 11/21/18 at 05:30 Albuterol/ Ipratropium (Duoneb) 3 ml Q2H RESP THERAPY PRN NEB SHORTNESS OF BREATH; Start 11/21/18 at 05:30 Acetaminophen (Tylenol Liquid) 650 mg Q6H PRN PO PAIN LEVEL 1-3 OR FEVER; Start 11/21/18 at 05:30 Folic Acid (Folic Acid) 1 mg DAILY PO Last administered on 11/30/18at 08:17; Admin Dose 1 MG; Start 11/21/18 at 09:00 Meropenem/Sodium Chloride 50 ml @ 100 mls/hr Q12 IVPB Last administered on 11/30/18at 08:17; Admin Dose 100 MLS/HR; Start 11/21/18 at 21:00 Norepinephrine 250 ml @ 1.875 mls/ hr TITRATE IV Last administered on 11/30/18at 11:17; Admin Dose 30 MLS/HR; Start 11/21/18 at 19:00 Caspofungin 50 mg/ Sodium Chloride 250 ml @ 250 mls/hr Q24H IVPB Last administered on 11/30/18at 12:28; Admin Dose 250 MLS/HR; Start 11/24/18 at 13:00 Miscellaneous Information 1 ea NOTE XX ; Start 11/23/18 at 13:30 Glucose (Glutose) 15 gm Q15M PRN PO DECREASED GLUCOSE; Start 11/23/18 at 13:30 Glucose (Glutose) 22.5 gm Q15M PRN PO DECREASED GLUCOSE; Start 11/23/18 at 13:30 Dextrose (D50w Syringe) 25 ml Q15M PRN IV DECREASED GLUCOSE Last administered on 11/26/18at 17:41; Admin Dose 25 ML; Start 11/23/18 at 13:30 Dextrose (D50w Syringe) 50 ml Q15M PRN IV DECREASED GLUCOSE Last administered on 11/26/18at 13:03; Admin Dose 50 ML; Start 11/23/18 at 13:30 Glucagon (Glucagen) 1 mg Q15M PRN IM DECREASED GLUCOSE; Start 11/23/18 at 13:30 Glucose (Glutose) 15 gm Q15M PRN BUCCAL DECREASED GLUCOSE; Start 11/23/18 at 13:30 Propofol 100 ml @ 1.59 mls/hr Q12H IV Last administered on 11/28/18 22:39; Admin Dose 3.18 MLS/HR; Start 11/24/18 at 00:00 Phenylephrine HCl 80 mg/Dextrose 250 ml @ 18.75 mls/ hr TITRATE IV ; Start 11/24/18 at 00:00 Heparin Sodium (Porcine) (Heparin (1000 Units/ml)) 6,300 unit AFTER DIALYSIS CATHETER Last administered on 11/30/18 12:27; Admin Dose 6,300 UNIT; Start 11/24/18 at 17:30 Famotidine (Pepcid) 20 mg DAILY PO Last administered on 11/30/18 08:17; Admin Dose 20 MG; Start 11/26/18 at 09:00 Alteplase, Recombinant (Cathflo (Activase)) 2 mg MAY REPEAT X1 PRN CATHETER IF CATHETER REMAINS OCCULUDED Last administered on 11/26/18 09:04; Admin Dose 2 MG; Start 11/26/18 at 03:00 Albumin Human 100 ml @ 100 mls/hr DURING DIALYSIS PRN IV HYPOTENSION DURING HD Last administered on 11/30/18 10:56; Admin Dose 100 MLS/HR; Start 11/26/18 at 14:00 Clindamycin HCl/ Dextrose 50 ml @ 50 mls/hr Q8 IVPB Last administered on 11/30/18 14:05; Admin Dose 50 MLS/HR; Start 11/26/18 at 14:00 Diagnostic Test (Pha) (Accu-Chek) 1 ea Q4 XX Last administered on 11/30/18 12:37; Admin Dose 1 EA; Start 11/27/18 at 13:00 Levothyroxine Sodium (Synthroid) 75 mcg BEFORE BREAKFAST NGT Last administered on 11/29/18 08:36; Admin Dose 75 MCG; Start 11/29/18 at 07:00 Midazolam HCl 50 ml @ 1 mls/hr TITRATE IV Last administered on 11/30/18 05:15; Admin Dose 50 MLS/HR; Start 11/29/18 at 09:00 Sodium Chloride 154 meq/Dextrose 1,038.5 ml @ 30 mls/hr Q24H IV Last administered on 11/30/18 10:24; Admin Dose 30 MLS/HR; Start 11/30/18 at 10:00 Amiodarone HCl (Cordarone) 200 mg BID PO Last administered on 11/30/18at 09:55; Admin Dose 200 MG; Start 11/30/18 at 09:30 Allergies: Coded Allergies: Penicillins (Verified Allergy, Unknown, 08/10/18) tazobactam (Verified Allergy, Unknown, 08/10/18) vancomycin (Verified Allergy, Unknown, 08/10/18) Past Surgical History reviewed Past Surgical Hx: other Social History reviewed Alcohol Use: none Smoking Status: Never smoker Drug Use: none HOLLY FISHER NP Nov 30, 2018 14:30 LIANET LOVE Nov 30, 2018 19:14
--- NOTE | 2018-11-30 15:17 | PN ---
Date/Time of Note Date/Time of Note DATE: 11/30/18 TIME: 15:13 Assessment/Plan VTE Prophylaxis Risk score (from Ns)>0 risk: 8 SCD applied (from Ns): Yes Pharmacological prophylaxis: NA/contraindicated Pharm contraindication: other Lines/Catheters IV Catheter Type (from Nrsg): Mid Line Urinary Cath still in place: No Assessment/Plan Hospital Course 58 yo female with ESRD, cirrhosis, DMII presents with hypoglycemia, leg infection. Suffered cardiac and respiratory arrest, now intubated Cardiac arrest, acute respiratory failure: - Continue vasopressors and mechanical ventilation per pulmonary - Goals of care discussions with family Hypoglycemia: No history of diabetes and patient not on any insulin or sulfonylurea or any other diabetic medication - Continue IV dextrose and tube feeds Left lower extremity wound - Antibiotics per ID -Venous study was negative for DVT A Fib: - Amiodarone ESRD with fluid overload - HD per nephrology Pancytopenia with coagulopathy, thrombocytopenia: Patient had workup here during recent hospitalization. -Thrombocytopenia was thought to be secondary to HIT but may be related to liver disease -Per son, patient did receive platelet transfusion at [facility] -Picture of pancytopenia with macrocytic anemia and coagulopathy does appear consistent with liver disease, await liver ultrasound Hypothyroidism: Continue Synthroid History of pacemaker: No acute issue Ascites secondary to fluid overload and/or liver disease: Status post paracentesis 3 weeks ago with removal of 4.5 L - s/p paracentesis, in addition patient's blood pressure is low Chronic peritoneal dialysis: This is not being used. Not being removed because of the severe thrombocytopenia. This can be addressed at [facility] where she usually gets her care Failure to thrive: Patient is very cachectic -Nutrition consult Prophylaxis: SCDs DC planning: Poor prognosis. Continue goals of care discussions with family. So far unwilling to consider withdrawal of care. Very upset to be asked about it and don't want us to bring it up again Result Diagram: 11/30/18 0400 11/30/18 0400 Results 24hrs Laboratory Tests Test 11/29/18 18:15 11/29/18 22:07 11/30/18 04:00 11/30/18 08:23 Bedside Glucose 99 101 109 White Blood Count 13.2 H Red Blood Count 4.22 Hemoglobin 12.3 Hematocrit 34.7 L Mean Corpuscular 82.2 Volume Mean Corpuscular 29.1 Hemoglobin Mean Corpuscular 35.4 Hemoglobin Concent Red Cell 15.7 H Distribution Width Platelet Count 18 #*L Mean Platelet Volume Immature 0.800 H Granulocytes % Neutrophils % Segmented 78 H Neutrophils % (Manual) Band Neutrophils % 2 (Manual) Lymphocytes % Lymphocytes % 17 (Manual) Monocytes % Monocytes % 3 (Manual) Eosinophils % Basophils % Nucleated Red 0.0 Blood Cells % Immature 0.100 H Granulocytes # Neutrophils # Neutrophils # 10.3 H (Manual) Band Neutrophils # 0.2 Lymphocytes 2.2 (Manual) Lymphocytes # Monocytes # Monocytes # 0.3 (Manual) Eosinophils # Basophils # Nucleated Red Blood Cells # Platelet Estimate SIG DECREASED Poikilocytosis 1+ Anisocytosis 1+ Macrocytosis 1+ Prothrombin Time 18.9 H Prothrombin Time 1.5 Ratio INR International 1.57 Normalized Ratio Sodium Level 127 L Potassium Level 4.9 Chloride Level 96 L Carbon Dioxide 20 L Level Anion Gap 11 Blood Urea 48 #H Nitrogen Creatinine 1.38 H Est Glomerular 39 L Filtrat Rate mL/min Glucose Level 107 Calcium Level 7.4 L Phosphorus Level 6.9 #H Magnesium Level 1.8 Random Cortisol 30.7 Test 11/30/18 12:32 Bedside Glucose 138 Subjective 24 Hr Interval Summary Subjective hx not possible: pt non-verbal Exam/Review of Systems Exam Vitals Vital Signs Date Temp Pulse Resp B/P (MAP) Pulse Ox O2 O2 Flow FiO2 Time Delivery Rate 11/30/18 60 20 122/58 100 14:15 (79) 11/30/18 Mechanical 14:00 Ventilator 11/30/18 30 13:19 11/30/18 97.6 12:00 Intake and Output 11/29/18 11/29/18 11/30/18 1515:00 23:00 07:00 IntakeIntake Total 823.340 ml 542.875 ml 430.7 ml BalanceBalance 823.340 ml 542.875 ml 430.7 ml Constitutional: non-verbal Respiratory: clear to auscultation Cardiovascular: regular rate and rhythm Gastrointestinal: soft; No distended Musculoskeletal: nl extremities to inspection Results Results 24hrs Laboratory Tests Test 11/29/18 18:15 11/29/18 22:07 11/30/18 04:00 11/30/18 08:23 Bedside Glucose 99 101 109 White Blood Count 13.2 H Red Blood Count 4.22 Hemoglobin 12.3 Hematocrit 34.7 L Mean Corpuscular 82.2 Volume Mean Corpuscular 29.1 Hemoglobin Mean Corpuscular 35.4 Hemoglobin Concent Red Cell 15.7 H Distribution Width Platelet Count 18 #*L Mean Platelet Volume Immature 0.800 H Granulocytes % Neutrophils % Segmented 78 H Neutrophils % (Manual) Band Neutrophils % 2 (Manual) Lymphocytes % Lymphocytes % 17 (Manual) Monocytes % Monocytes % 3 (Manual) Eosinophils % Basophils % Nucleated Red 0.0 Blood Cells % Immature 0.100 H Granulocytes # Neutrophils # Neutrophils # 10.3 H (Manual) Band Neutrophils # 0.2 Lymphocytes 2.2 (Manual) Lymphocytes # Monocytes # Monocytes # 0.3 (Manual) Eosinophils # Basophils # Nucleated Red Blood Cells # Platelet Estimate SIG DECREASED Poikilocytosis 1+ Anisocytosis 1+ Macrocytosis 1+ Prothrombin Time 18.9 H Prothrombin Time 1.5 Ratio INR International 1.57 Normalized Ratio Sodium Level 127 L Potassium Level 4.9 Chloride Level 96 L Carbon Dioxide 20 L Level Anion Gap 11 Blood Urea 48 #H Nitrogen Creatinine 1.38 H Est Glomerular 39 L Filtrat Rate mL/min Glucose Level 107 Calcium Level 7.4 L Phosphorus Level 6.9 #H Magnesium Level 1.8 Random Cortisol 30.7 Test 11/30/18 12:32 Bedside Glucose 138 Medications Medication Current Medications Ondansetron HCl (Zofran Inj) 4 mg Q6H PRN IV NAUSEA AND/OR VOMITING Last administered on 11/21/18at 16:50; Admin Dose 4 MG; Start 11/21/18 at 05:30 Albuterol/ Ipratropium (Duoneb) 3 ml Q2H RESP THERAPY PRN NEB SHORTNESS OF BREATH; Start 11/21/18 at 05:30 Acetaminophen (Tylenol Liquid) 650 mg Q6H PRN PO PAIN LEVEL 1-3 OR FEVER; Start 11/21/18 at 05:30 Folic Acid (Folic Acid) 1 mg DAILY PO Last administered on 11/30/18at 08:17; Admin Dose 1 MG; Start 11/21/18 at 09:00 Meropenem/Sodium Chloride 50 ml @ 100 mls/hr Q12 IVPB Last administered on 11/30/18at 08:17; Admin Dose 100 MLS/HR; Start 11/21/18 at 21:00 Norepinephrine 250 ml @ 1.875 mls/ hr TITRATE IV Last administered on 11/30at 11:17; Admin Dose 30 MLS/HR; Start 11/21/18 at 19:00 Caspofungin 50 mg/ Sodium Chloride 250 ml @ 250 mls/hr Q24H IVPB Last administered on 11/30/18at 12:28; Admin Dose 250 MLS/HR; Start 11/24/18 at 13:00 Miscellaneous Information 1 ea NOTE XX ; Start 11/23/18 at 13:30 Glucose (Glutose) 15 gm Q15M PRN PO DECREASED GLUCOSE; Start 11/23/18 at 13:30 Glucose (Glutose) 22.5 gm Q15M PRN PO DECREASED GLUCOSE; Start 11/23/18 at 13:30 Dextrose (D50w Syringe) 25 ml Q15M PRN IV DECREASED GLUCOSE Last administered on 11/26/18at 17:41; Admin Dose 25 ML; Start 11/23/18 at 13:30 Dextrose (D50w Syringe) 50 ml Q15M PRN IV DECREASED GLUCOSE Last administered on 11/26/18at 13:03; Admin Dose 50 ML; Start 11/23/18 at 13:30 Glucagon (Glucagen) 1 mg Q15M PRN IM DECREASED GLUCOSE; Start 11/23/18 at 13:30 Glucose (Glutose) 15 gm Q15M PRN BUCCAL DECREASED GLUCOSE; Start 11/23/18 at 13:30 Propofol 100 ml @ 1.59 mls/hr Q12H IV Last administered on 11/28/18at 22:39; Admin Dose 3.18 MLS/HR; Start 11/24/18 at 00:00 Phenylephrine HCl 80 mg/Dextrose 250 ml @ 18.75 mls/ hr TITRATE IV ; Start 11/24/18 at 00:00 Heparin Sodium (Porcine) (Heparin (1000 Units/ml)) 6,300 unit AFTER DIALYSIS CATHETER Last administered on 11/30/18at 12:27; Admin Dose 6,300 UNIT; Start 11/24/18 at 17:30 Famotidine (Pepcid) 20 mg DAILY PO Last administered on 11/30/18at 08:17; Admin Dose 20 MG; Start 11/26/18 at 09:00 Alteplase, Recombinant (Cathflo (Activase)) 2 mg MAY REPEAT X1 PRN CATHETER IF CATHETER REMAINS OCCULUDED Last administered on 11/26/18 09:04; Admin Dose 2 MG; Start 11/26/18 at 03:00 Albumin Human 100 ml @ 100 mls/hr DURING DIALYSIS PRN IV HYPOTENSION DURING HD Last administered on 11/30/18 10:56; Admin Dose 100 MLS/HR; Start 11/26/18 at 14:00 Clindamycin HCl/ Dextrose 50 ml @ 50 mls/hr Q8 IVPB Last administered on 11/30/18 14:05; Admin Dose 50 MLS/HR; Start 11/26/18 at 14:00 Diagnostic Test (Pha) (Accu-Chek) 1 ea Q4 XX Last administered on 11/30/18 12:37; Admin Dose 1 EA; Start 11/27/18 at 13:00 Levothyroxine Sodium (Synthroid) 75 mcg BEFORE BREAKFAST NGT Last administered on 11/29/18 08:36; Admin Dose 75 MCG; Start 11/29/18 at 07:00 Midazolam HCl 50 ml @ 1 mls/hr TITRATE IV Last administered on 11/30/18 05:15; Admin Dose 50 MLS/HR; Start 11/29/18 at 09:00 Sodium Chloride 154 meq/Dextrose 1,038.5 ml @ 30 mls/hr Q24H IV Last administered on 11/30/18 10:24; Admin Dose 30 MLS/HR; Start 11/30/18 at 10:00 Amiodarone HCl (Cordarone) 200 mg BID PO Last administered on 11/30/18 09:55; Admin Dose 200 MG; Start 11/30/18 at 09:30 RIKA STOCK Nov 30, 2018 15:16
[2018-12-01] VITALS (105 sets, daily range): BP systolic 78–127; BP diastolic 52–93; PULSE 54–107; RESP 0–23
[2018-12-01] MEDS: ACCU-CHEK XX SCH ×6 (01:53→20:51)
[2018-12-01] MEDS: CLINDAMYCIN 600 MG/D5W (PMX) 50 ML IVPB SCH ×3 (06:12→21:00)
[2018-12-01] MEDS: LEVOTHYROXINE 75 MCG TAB NGT SCH (06:12)
[2018-12-01] MEDS: NORepinephrine 8MG/250 ML (PMX 250 ML IV SCH (06:17)
--- NOTE | 2018-12-01 08:00 | PN ---
DATE: 12/01/2018 SUBJECTIVE: The patient had hemodialysis yesterday approximately 1 liter removed. The patient remai ns critically ill on pressor support and on full ventilatory support. The patient is obtunded. No o ther acute events noted. OBJECTIVE: VITAL SIGNS: Blood pressure is 106/66, respirations 20, pulse 59, temperature 98.6. HEENT: Head is normocephalic. NECK: Supple. HEART: Regular rate. LUNGS: Show diminished breath sounds at the base. ABDOMEN: Soft, nontender to palpation without rebound or guarding. EXTREMITIES: Negative for clubbing, cyanosis. Positive edema. DERMATOLOGIC: No rashes. MUSCULOSKELETAL: No joint effusion. NEUROLOGIC: No change in exam. MEDICATIONS: The patient's medications have been reviewed. LABORATORY DATA: From 12/01/2018 was reviewed and is pending. IMAGING STUDIES: Reviewed. MICROBIOLOGY: Cultures have been reviewed. ASSESSMENT AND PLAN: 1. End-stage renal disease. The patient had hemodialysis yesterday, tolerated well. Anticipate scott lysis again tomorrow for 3 hours 3k bath, calcium 2.5. 2. Volume overload with diffuse anasarca secondary to end-stage renal disease, capillary leak, IV fl uids. We will continue ultrafiltration with hemodialysis if patient remains hemodynamically stable. 3. Septic shock secondary to pneumonia and bacteremia. The patient's cultures have been reviewed. Continue pressor support, wean off if possible. Continue broad-spectrum antibiotics. 4. Anemia. Continue to monitor hemoglobin and hematocrit levels. Continue Epogen. 5. Hyponatremia. Continue dialysis on a high sodium bath. Continue to adjust and minimize hyperton ic fluids. 6. Hypokalemia. Continue to monitor and replete as needed. 7. Mineral bone disorder, monitor calcium and phosphorus levels. 8. Ventilator-dependent respiratory failure. Vent settings and ABG was reviewed. Continue to monit or. 9. Acute encephalopathy, etiology is toxic metabolic. 10. 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 The patient's platelet levels remain low. Continue to mo nitor. Transfuse as needed. 11. Ascites. The patient is status post paracentesis several days ago. Continue to monitor. 12. Hypothyroidism. Continue Synthroid. 13. Hypomagnesemia. Continue to monitor. 14. Lactic acidosis, resolved. 15. Acute encephalopathy, etiology is toxic metabolic. 16. Dysphagia. Continue tube feeding. Please note I spent over 30 minutes of critical care time with this patient. Dictated By: SARIKA JOINER DO NR/EZIO Conf#: [id number] DID#: [id number] CC: MANDY BATES MD; RIKA STOCK MD; LORRAINE JOHNSON MD;*EndCC*
[2018-12-01] MEDS: MEROPENEM 500MG/50 ML (PMX) 50 ML IVPB SCH ×2 (09:14→20:51)
[2018-12-01] MEDS: AMIODARONE 200 MG TAB PO SCH ×2 (09:15→20:51)
[2018-12-01] MEDS: BALSAM PERU/CASTOR OIL 60 GM TUBE TOP SCH ×2 (09:15→20:52)
[2018-12-01] MEDS: FOLIC ACID 1 MG TAB PO SCH (09:15)
[2018-12-01] MEDS: FAMOTIDINE 20 MG TAB PO SCH (09:15)
--- NOTE | 2018-12-01 10:00 | CONS ---
Consult Date/Type/Reason Admit Date/Time Nov 21, 2018 at 04:53 Initial Consult Date Type of Consult Pulmonary Requesting Provider: RIKA STOCK Date/Time of Note DATE: 12/01/18 TIME: 09:59 Subjective Remains on pressors and mechanical ventilation. Objective Vital Signs Date Temp Pulse Resp B/P (MAP) Pulse Ox O2 O2 Flow FiO2 Time Delivery Rate 12/01/18 61 08:00 12/01/18 20 106/66 100 06:15 (79) 12/01/18 30 05:20 12/01/18 98.2 04:00 11/30/18 Mechanical 18:00 Ventilator Intake and Output 11/30/18 11/30/18 12/01/18 1515:00 23:00 07:00 IntakeIntake Total 762.20 ml 586.25 ml 508.75 ml OutputOutput Total 2500 ml BalanceBalance -1737.80 ml 586.25 ml 508.75 ml Exam GENERAL: Thin cachectic lady on mechanical ventilation VITAL SIGNS: per chart NECK: Supple. No JVD or lymphadenopathy. CARDIAC EXAM: S1, S2. No added sounds or murmurs. CHEST: Diminished air entry bilaterally ABDOMEN: Soft, nontender. No guarding or rebound. EXTREMITIES: No cyanosis, clubbing or edema. NEUROLOGIC: Generalized weakness. Vent Setting Ventilator Support Mode: AC Fraction of Inspired Oxygen pe: 30 Positive End Expiratory Pressu: 5.0 Results/Medications Result Diagram: 12/01/18 0400 12/01/18 0614 Results 24 hrs Laboratory Tests Test 11/30/18 12:32 11/30/18 15:49 11/30/18 17:28 11/30/18 20:51 Bedside Glucose 138 145 159 Ammonia < 9 L Vitamin B12 477 Level Thyroid 0.538 Stimulating Hormone (TSH) Test 12/01/18 00:41 12/01/18 04:00 12/01/18 04:46 12/01/18 04:48 Bedside Glucose 123 133 White Blood 11.2 H Count Red Blood Count 3.64 L Hemoglobin 10.9 L Hematocrit 30.3 L Mean Corpuscular 83.2 Volume Mean Corpuscular 29.9 Hemoglobin Mean Corpuscular 36.0 Hemoglobin Anh nt Red Cell 15.9 H Distribution Width Platelet Count 18 *L Mean Platelet Volume Immature 1.000 H Granulocytes % Neutrophils % Segmented 61 Neutrophils % (Manual) Band Neutrophils 13 H % (Manual) Lymphocytes % Lymphocytes % 21 (Manual) Reactive 1 H Lymphocytes % (Manual) Monocytes % Monocytes % 4 (Manual) Eosinophils % Basophils % Nucleated Red 0.0 Blood Cells % Immature 0.110 H Granulocytes # Neutrophils # Neutrophils # 7.0 (Manual) Band Neutrophils 1.4 H # Lymphocytes 2.3 (Manual) Lymphocytes # Reactive 0.1 H Lymphocytes # Monocytes # Monocytes # 0.4 (Manual) Eosinophils # Basophils # Nucleated Red Blood Cells # Platelet SIG DECREASED Estimate Giant Platelets 3 H Poikilocytosis 3+ Anisocytosis 2+ Macrocytosis 2+ Spherocytes 1+ Lab Scanned BLOOD TRANSFUSI Report ON Test 12/01/18 06:14 12/01/18 09:13 Sodium Level 134 L Potassium Level 4.3 Chloride Level 102 Carbon Dioxide 20 L Level Anion Gap 12 Blood Urea 42 H Nitrogen Creatinine 1.03 H Est Glomerular 55 L Filtrat Rate mL/min Glucose Level 117 Calcium Level 7.7 L Phosphorus Level 5.0 H Magnesium Level 1.8 Bedside Glucose 145 Medications Current Medications Ondansetron HCl (Zofran Inj) 4 mg Q6H PRN IV NAUSEA AND/OR VOMITING Last administered on 11/21/18at 16:50; Admin Dose 4 MG; Start 11/21/18 at 05:30 Albuterol/ Ipratropium (Duoneb) 3 ml Q2H RESP THERAPY PRN NEB SHORTNESS OF RUDI ATH; Start 11/21/18 at 05:30 Acetaminophen (Tylenol Liquid) 650 mg Q6H PRN PO PAIN LEVEL 1-3 OR FEVER; Start 11/21/18 at 05:30 Folic Acid (Folic Acid) 1 mg DAILY PO Last administered on 12/01/18at 09:15; Admin Dose 1 MG; Start 11/21/18 at 09:00 Meropenem/Sodium Chloride 50 ml @ 100 mls/hr Q12 IVPB Last administered on 12/01/18at 09:14; Admin Dose 100 MLS/HR; Start 11/21/18 at 21:00 Norepinephrine 250 ml @ 1.875 mls/ hr TITRATE IV Last administered on 12/01/18at 06:17; Admin Dose 1.875 MLS/HR; Start 11/21/18 at 19:00 Caspofungin 50 mg/ Sodium Chloride 250 ml @ 250 mls/hr Q24H IVPB Last adm inistered on 11/30/18at 12:28; Admin Dose 250 MLS/HR; Start 11/24/18 at 13:00 Miscellaneous Information 1 ea NOTE XX ; Start 11/23/18 at 13:30 Glucose (Glutose) 15 gm Q15M PRN PO DECREASED GLUCOSE; Start 11/23/18 at 13:30 Glucose (Glutose) 22.5 gm Q15M PRN PO DECREASED GLUCOSE; Start 11/23/18 at 13 :30 Dextrose (D50w Syringe) 25 ml Q15M PRN IV DECREASED GLUCOSE Last administered on 11/26/18at 17:41; Admin Dose 25 ML; Start 11/23/18 at 13:30 Dextrose (D50w Syringe) 50 ml Q15M PRN IV DECREASED GLUCOSE Last administered on 11/26/18at 13:03; Admin Dose 50 ML; Start 11/23/18 at 13:30 Glucagon (Glucagen) 1 mg Q15M PRN IM DECREASED GLUCOSE; Start 11/23/18 at 13:30 Glucose (Glutose) 15 gm Q15M PRN BUCCAL DECREASED GLUCOSE; Start 11/23/18 at 13:30 Propofol 100 ml @ 1.59 mls/hr Q12H IV Last administered on 11/28/18at 22:39; Admin Dose 3.18 MLS/HR; Start 11/24/18 at 00:00 Phenylephrine HCl 80 mg/Dextrose 250 ml @ 18.75 mls/ hr TITRATE IV ; Start 11/24/18 at 00:00 Heparin Sodium (Porcine) (Heparin (1000 Units/ml)) 6,300 unit AFTER DIALYSIS CATHETER Last administered on 11/30/18at 12:27; Admin Dose 6,300 UNIT; Start 11/24/18 at 17:30 Famotidine (Pepcid) 20 mg DAILY PO Last administered on 12/01/18 09:15; Admin Dose 20 MG; Start 11/26/18 at 09:00 Alteplase, Recombinant (Cathflo (Activase)) 2 mg MAY REPEAT X1 PRN CATHETER IF CATHETER REMAINS OCCULUDED Last administered on 11/26/18 09:04; Admin Dose 2 MG; Start 11/26/18 at 03:00 Albumin Human 100 ml @ 100 mls/hr DURING DIALYSIS PRN IV HYPOTENSION DURING HD Last administered on 11/30/18 10:56; Admin Dose 100 MLS/HR; Start 11/26/18 at 14:00 Clindamycin HCl/ Dextrose 50 ml @ 50 mls/hr Q8 IVPB Last administered on 12/01/18 06:12; Admin Dose 50 MLS/HR; Start 11/26/18 at 14:00 Diagnostic Test (Pha) (Accu-Chek) 1 ea Q4 XX Last administered on 12/01/18 09:14; Admin Dose 1 EA; Start 11/27/18 at 13:00 Levothyroxine Sodium (Synthroid) 75 mcg BEFORE BREAKFAST NGT Last administered on 12/01/18 06:12; Admin Dose 75 MCG; Start 11/29/18 at 07:00 Midazolam HCl 50 ml @ 1 mls/hr TITRATE IV Last administered on 11/30/18 05:15; Admin Dose 50 MLS/HR; Start 11/29/18 at 09:00 Sodium Chloride 154 meq/Dextrose 1,038.5 ml @ 30 mls/hr Q24H IV Last administered on 11/30/18 10:24; Admin Dose 30 MLS/HR; Start 11/30/18 at 10:00 Amiodarone HCl (Cordarone) 200 mg BID PO Last administered on 12/01/18 09:15; Admin Dose 200 MG; Start 11/30/18 at 09:30 Assessment/Plan Hospital Course (Demo Recall) assessment 1. Persistent septic shock likely secondary to pneumonia 2. Acute hypoxemic respiratory failure 3. History of cardiomyopathy 4. Severe thrombocytopenia with anemia no active GI bleeding 5. End-stage renal failure on hemodialysis Plan 1. Monitor H&H posttransfusion 2. Titrate pressors to keep map greater than 65 3. Tube feeding as tolerated 4. Random cortisol not consistent with adrenal insufficiency 5. Hemodialysis as tolerated 6. Continue amiodarone for rate control Prognosis remains extremely poor. Critical care time 40 minutes. Long discussion with family at bedside. NINA MORIRS MD, [facility] Dec 01, 2018 10:00
[2018-12-01] MEDS: CASPOFUNGIN 50 MG in SOD CHLORIDE 0.9% 250 ML IVPB SCH (13:05)
--- NOTE | 2018-12-01 14:32 | CONS ---
Assessment/Plan Assessment/Plan Hospital Course (Demo Recall) No acute changes overnight patient is alert, comfortable on vent, follows commands, on Levophed gtt Antimicrobials: Clindamycin, Cancidas, meropenem Microbiology: Blood culture on admission grew Klebsiella ESBL, repeat blood cultures negative, left thigh wound culture grew Klebsiella ESBL and Leah albicans Allergy: Zosyn, vancomycin Indwelling: Right upper thigh Davie catheter, left femoral triple-lumen catheter, endotracheal tube, orogastric tube, midline Physical examination: This is a chronically ill-appearing cachectic middle-aged woman who is laying comfortably in bed. Head atraumatic normocephalic. Neck is supple. Chest rise symmetrical. Breath sounds diminished bases. Heart: S1-S2, irreg. Abdomen distended. Bowel sounds hypoactive. Extremities with bilateral edema, cyanotic, multiple ecchymotic areas and bruises, left upper thigh dressin g present is Assessment: 1. Severe sepsis with MSOF 2. Acute hypoxemic respiratory failure secondary to CHF exacerbation/probable pneumonia 3. Klebsiella ESBL bacteremia 4. 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 End-stage renal disease, hemodialysis dependent 6. Atrial fibrillation/PPM 7. Unstageable sacral decubitus 8. History of peritoneal dialysis with peritoneal dialysis still in place 9. Ascites status post paracentesis 3 weeks ago 10. Failure to thrive 11. Progressive thrombocytopenia 12. B mastoiditis and acute sinusitis per CT Plan: Remains hemodynamically unstable but clinically doing better, continue antibiotics Consultation Date/Type/Reason Admit Date/Time Nov 21, 2018 at 04:53 Initial Consult Date Type of Consult id Requesting Provider: RIKA STOCK Date/Time of Note DATE: 12/01/18 TIME: 14:31 Exam/Review of Systems Exam Vitals Vital Signs Date Temp Pulse Resp B/P (MAP) Pulse Ox O2 O2 Flow FiO2 Time Delivery Rate 12/01/18 62 12:00 12/01/18 17 97/65 (76) 99 11:15 12/01/18 Mechanical 11:00 Ventilator 12/01/18 96.8 08:00 12/01/18 30 08:00 Intake and Output 11/30/18 11/30/18 12/01/18 1515:00 23:00 07:00 IntakeIntake Total 762.20 ml 586.25 ml 550.00 ml OutputOutput Total 2500 ml BalanceBalance -1737.80 ml 586.25 ml 550.00 ml Results Result Diagram: 12/01/18 0400 12/01/18 0614 Results 24hrs Laboratory Tests Test 11/30/18 15:49 11/30/18 17:28 11/30/18 20:51 12/01/18 00:41 Ammonia < 9 L Vitamin B12 477 Level Thyroid 0.538 Stimulating Hormone (TSH) Bedside Glucose 145 159 123 Test 12/01/18 04:00 12/01/18 04:46 12/01/18 04:48 12/01/18 06:14 White Blood 11.2 H Count Red Blood Count 3.64 L Hemoglobin 10.9 L Hematocrit 30.3 L Mean Corpuscular 83.2 Volume Mean Corpuscular 29.9 Hemoglobin Mean Corpuscular 36.0 Hemoglobin Anh nt Red Cell 15.9 H Distribution Width Platelet Count 18 *L Mean Platelet Volume Immature 1.000 H Granulocytes % Neutrophils % Segmented 61 Neutrophils % (Manual) Band Neutrophils 13 H % (Manual) Lymphocytes % Lymphocytes % 21 (Manual) Reactive 1 H Lymphocytes % (Manual) Monocytes % Monocytes % 4 (Manual) Eosinophils % Basophils % Nucleated Red 0.0 Blood Cells % Immature 0.110 H Granulocytes # Neutrophils # Neutrophils # 7.0 (Manual) Band Neutrophils 1.4 H # Lymphocytes 2.3 (Manual) Lymphocytes # Reactive 0.1 H Lymphocytes # Monocytes # Monocytes # 0.4 (Manual) Eosinophils # Basophils # Nucleated Red Blood Cells # Platelet SIG DECREASED Estimate Giant Platelets 3 H Poikilocytosis 3+ Anisocytosis 2+ Macrocytosis 2+ Spherocytes 1+ Lab Scanned BLOOD TRANSFUSI Report ON Bedside Glucose 133 Sodium Level 134 L Potassium Level 4.3 Chloride Level 102 Carbon Dioxide 20 L Level Anion Gap 12 Blood Urea 42 H Nitrogen Creatinine 1.03 H Est Glomerular 55 L Filtrat Rate mL/min Glucose Level 117 Calcium Level 7.7 L Phosphorus Level 5.0 H Magnesium Level 1.8 Test 12/01/18 09:13 12/01/18 13:07 Bedside Glucose 145 126 Medications Medication Current Medications Ondansetron HCl (Zofran Inj) 4 mg Q6H PRN IV NAUSEA AND/OR VOMITING Last administered on 11/21/18at 16:50; Admin Dose 4 MG; Start 11/21/18 at 05:30 Albuterol/ Ipratropium (Duoneb) 3 ml Q2H RESP THERAPY PRN NEB SHORTNESS OF BREATH; Start 11/21/18 at 05:30 Acetaminophen (Tylenol Liquid) 650 mg Q6H PRN PO PAIN LEVEL 1-3 OR FEVER; Start 11/21/18 at 05:30 Folic Acid (Folic Acid) 1 mg DAILY PO Last administered on 12/01/18at 09:15; Admin Dose 1 MG; Start 11/21/18 at 09:00 Meropenem/Sodium Chloride 50 ml @ 100 mls/hr Q12 IVPB Last administered on at 09:14; Admin Dose 100 MLS/HR; Start 11/21/18 at 21:00 Norepinephrine 250 ml @ 1.875 mls/ hr TITRATE IV Last administered on 12/01/18at 06:17; Admin Dose 1.875 MLS/HR; Start 11/21/18 at 19:00 Caspofungin 50 mg/ Sodium Chloride 250 ml @ 250 mls/hr Q24H IVPB Last administered on 12/01/18at 13:05; Admin Dose 250 MLS/HR; Start 11/24/18 at 13:00 Miscellaneous Information 1 ea NOTE XX ; Start 11/23/18 at 13:30 Glucose (Glutose) 15 gm Q15M PRN PO DECREASED GLUCOSE; Start 11/23/18 at 13:30 Glucose (Glutose) 22.5 gm Q15M PRN PO DECREASED GLUCOSE; Start 11/23/18 at 13:30 Dextrose (D50w Syringe) 25 ml Q15M PRN IV DECREASED GLUCOSE Last administered on 11/26/18at 17:41; Admin Dose 25 ML; Start 11/23/18 at 13:30 Dextrose (D50w Syringe) 50 ml Q15M PRN IV DECREASED GLUCOSE Last administered on 11/26/18at 13:03; Admin Dose 50 ML; Start 11/23/18 at 13:30 Glucagon (Glucagen) 1 mg Q15M PRN IM DECREASED GLUCOSE; Start 11/23/18 at 13:30 Glucose (Glutose) 15 gm Q15M PRN BUCCAL DECREASED GLUCOSE; Start 11/23/18 at 13:30 Propofol 100 ml @ 1.59 mls/hr Q12H IV Last administered on 11/28/18 22:39; Admin Dose 3.18 MLS/HR; Start 11/24/18 at 00:00 Phenylephrine HCl 80 mg/Dextrose 250 ml @ 18.75 mls/ hr TITRATE IV ; Start 11/24/18 at 00:00 Heparin Sodium (Porcine) (Heparin (1000 Units/ml)) 6,300 unit AFTER DIALYSIS CATHETER Last administered on 11/30/18 12:27; Admin Dose 6,300 UNIT; Start 11/24/18 at 17:30 Famotidine (Pepcid) 20 mg DAILY PO Last administered on 12/01/18 09:15; Admin Dose 20 MG; Start 11/26/18 at 09:00 Alteplase, Recombinant (Cathflo (Activase)) 2 mg MAY REPEAT X1 PRN CATHETER IF CATHETER REMAINS OCCULUDED Last administered on 11/26/18 09:04; Admin Dose 2 MG; Start 11/26/18 at 03:00 Albumin Human 100 ml @ 100 mls/hr DURING DIALYSIS PRN IV HYPOTENSION DURING HD Last administered on 11/30/18 10:56; Admin Dose 100 MLS/HR; Start 11/26/18 at 14:00 Clindamycin HCl/ Dextrose 50 ml @ 50 mls/hr Q8 IVPB Last administered on 12/01/18 06:12; Admin Dose 50 MLS/HR; Start 11/26/18 at 14:00 Diagnostic Test (Pha) (Accu-Chek) 1 ea Q4 XX Last administered on 12/01/18 13:06; Admin Dose 1 EA; Start 11/27/18 at 13:00 Levothyroxine Sodium (Synthroid) 75 mcg BEFORE BREAKFAST NGT Last administered on 12/01/18 06:12; Admin Dose 75 MCG; Start 11/29/18 at 07:00 Midazolam HCl 50 ml @ 1 mls/hr TITRATE IV Last administered on 11/30/18 05:15; Admin Dose 50 MLS/HR; Start 11/29/18 at 09:00 Sodium Chloride 154 meq/Dextrose 1,038.5 ml @ 30 mls/hr Q24H IV Last administered on 11/30/18 10:24; Admin Dose 30 MLS/HR; Start 11/30/18 at 10:00 Amiodarone HCl (Cordarone) 200 mg BID PO Last administered on 12/01/18at 09:15; Admin Dose 200 MG; Start 11/30/18 at 09:30 Collagenase (Santyl) 1 applic DAILY TOP ; Start 12/02/18 at 09:00 KELSIE ELY NP Dec 01, 2018 14:32
--- NOTE | 2018-12-01 14:38 | CONS ---
Assessment/Plan Assessment/Plan Hospital Course 58 yo F with hx of afib, ESRD on peritoneal dialysis, and other comorbidities... who initially presented with ams in the context of hypotension and severe hypoglycemia. Now s/p PEA arrest on 11/24; Targeted temperature therapy was deferred.. She remains protractedly encephalopathic, for which neurology is consulted. The clinical picture suggests an acute toxic-metabolic (?on chronic) encephalopathy. HCT is reassuringly without obvious acute intracranial pathology. CXR + PNA Na 127, phos 6.9 ammonia, TSH, B12 wnl plt 18 P: OK to defer MRI brain for now Cont medical management per primary [place] as able Limit sedating medications where possible PT/OT when able Will follow clinically Consultation Date/Type/Reason Admit Date/Time Nov 21, 2018 at 04:53 Type of Consult Neurology Reason for Consultation ams Requesting Provider: RIKA STOCK Date/Time of Note DATE: 12/01/18 TIME: 14:34 24 HR Interval Summary Free Text/Dictation Continues critical care. S/p HCT. Off sedation. Remains on levophed gtt. Exam Vital Signs Vitals Vital Signs Date Temp Pulse Resp B/P (MAP) Pulse Ox O2 O2 Flow FiO2 Time Delivery Rate 12/01/18 62 12:00 12/01/18 17 97/65 (76) 99 11:15 12/01/18 Mechanical 11:00 Ventilator 12/01/18 96.8 08:00 12/01/18 30 08:00 Intake and Output 11/30/18 11/30/18 12/01/18 1515:00 23:00 07:00 IntakeIntake Total 762.20 ml 586.25 ml 550.00 ml OutputOutput Total 2500 ml BalanceBalance -1737.80 ml 586.25 ml 550.00 ml Exam PE: Gen Appearance: No Apparent Distress HEENT: Intubated Cardiovascular: Regular rate Abdomen: Soft Extremities: Dry NE: The patient was awake and alert, though nonverbal d/t trach. Able to gesture and nod appropriately to yes/no questions. Able to follow simple axial and appendicular commands. Cranial nerve examination was limited by mental status. Pupils were equal and reactive to light. There was no afferent pupillary defect. Funduscopic examin ation was limited. Face was grossly symmetric, w/ present corneal and cough reflexes. Tone was normal. Muscle bulk was severely diminished. I did not see fasciculations. The patient was generally very weak. Coordination and gait testing was limited by mental status. Arm and leg reflexes were within normal limits and symmetric. Alvarez's sign was absent. Plantar responses were flexor. HOLLY FISHER NP Dec 01, 2018 14:37 LIANET LOVE Dec 01, 2018 17:39
--- NOTE | 2018-12-01 15:25 | PN ---
Date/Time of Note Date/Time of Note DATE: 12/01/18 TIME: 15:23 Assessment/Plan VTE Prophylaxis Risk score (from Nsg)>0 risk: 10 Pharmacological prophylaxis: NA/contraindicated Pharm contraindication: other Lines/Catheters IV Catheter Type (from Nrsg): Mid Line Urinary Cath still in place: No Assessment/Plan Hospital Course 58 yo female with ESRD, cirrhosis, DMII presents with hypoglycemia, leg infection. Suffered cardiac and respiratory arrest, now intubated Cardiac arrest, acute respiratory failure: - Continue vasopressors and mechanical ventilation per pulmonary - Goals of care discussions with family Hypoglycemia: No history of diabetes and patient not on any insulin or s ulfonylurea or any other diabetic medication - Continue IV dextrose and tube feeds Left lower extremity wound - Antibiotics per ID -Venous study was negative for DVT A Fib: - Amiodarone ESRD with fluid overload - HD per nephrology Pancytopenia with coagulopathy, thrombocytopenia: Patient had workup here during recent hospitalization. 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 Not being removed because of the severe thrombocytopenia. This can be addressed at [facility] where she usually gets her care Failure to thrive: Patient is very cachectic -Nutrition consult Prophylaxis: SCDs DC planning: Poor prognosis. Continue goals of care discussions with family. So far unwilling to consider withdrawal of care. Very upset to be asked about it and don't want us to bring it up again Result Diagram: 12/01/18 0400 12/01/18 0614 Results 24hrs Laboratory Tests Test 11/30/18 15:49 11/30/18 17:28 11/30/18 20:51 12/01/18 00:41 Ammonia < 9 L Vitamin B12 477 Level Thyroid 0.538 Stimulating Hormone (TSH) Bedside Glucose 145 159 123 Test 12/01/18 04:00 12/01/18 04:46 12/01/18 04:48 12/01/18 06:14 White Blood 11.2 H Count Red Blood Count 3.64 L Hemoglobin 10.9 L Hematocrit 30.3 L Mean Corpuscular 83.2 Volume Mean Corpuscular 29.9 Hemoglobin Mean Corpuscular 36.0 Hemoglobin Anh nt Red Cell 15.9 H Distribution Width Platelet Count 18 *L Mean Platelet Volume Immature 1.000 H Granulocytes % Neutrophils % Segmented 61 Neutrophils % (Manual) Band Neutrophils 13 H % (Manual) Lymphocytes % Lymphocytes % 21 (Manual) Reactive 1 H Lymphocytes % (Manual) Monocytes % Monocytes % 4 (Manual) Eosinophils % Basophils % Nucleated Red 0.0 Blood Cells % Immature 0.110 H Granulocytes # Neutrophils # Neutrophils # 7.0 (Manual) Band Neutrophils 1.4 H # Lymphocytes 2.3 (Manual) Lymphocytes # Reactive 0.1 H Lymphocytes # Monocytes # Monocytes # 0.4 (Manual) Eosinophils # Basophils # Nucleated Red Blood Cells # Platelet SIG DECREASED Estimate Giant Platelets 3 H Poikilocytosis 3+ Anisocytosis 2+ Macrocytosis 2+ Spherocytes 1+ Lab Scanned BLOOD TRANSFUSI Report ON Bedside Glucose 133 Sodium Level 134 L Potassium Level 4.3 Chloride Level 102 Carbon Dioxide 20 L Level Anion Gap 12 Blood Urea 42 H Nitrogen Creatinine 1.03 H Est Glomerular 55 L Filtrat Rate mL/min Glucose Level 117 Calcium Level 7.7 L Phosphorus Level 5.0 H Magnesium Level 1.8 Test 12/01/18 09:13 12/01/18 13:07 Bedside Glucose 145 126 Subjective 24 Hr Interval Summary Subjective hx not possible: pt non-verbal Exam/Review of Systems Exam Vitals Vital Signs Date Temp Pulse Resp B/P (MAP) Pulse Ox O2 O2 Flow FiO2 Time Delivery Rate 12/01/18 62 12:00 12/01/18 17 97/65 (76) 99 11:15 12/01/18 Mechanical 11:00 Ventilator 12/01/18 96.8 08:00 12/01/18 30 08:00 Intake and Output 11/30/18 11/30/18 12/01/18 1414:59 22:59 06:59 IntakeIntake Total 745.90 ml 575.00 ml 620.00 ml OutputOutput Total 2500 ml BalanceBalance -1754.10 ml 575.00 ml 620.00 ml Constitutional: non-verbal ENMT: intubated Respiratory: clear to auscultation Cardiovascular: regular rate and rhythm Gastrointestinal: soft; No distended Musculoskeletal: nl extremities to inspection Results Results 24hrs Laboratory Tests Test 11/30/18 15:49 11/30/18 17:28 11/30/18 20:51 12/01/18 00:41 Ammonia < 9 L Vitamin B12 477 Level Thyroid 0.538 Stimulating Hormone (TSH) Bedside Glucose 145 159 123 Test 12/01/18 04:00 12/01/18 04:46 12/01/18 04:48 12/01/18 06:14 White Blood 11.2 H Count Red Blood Count 3.64 L Hemoglobin 10.9 L Hematocrit 30.3 L Mean Corpuscular 83.2 Volume Mean Corpuscular 29.9 Hemoglobin Mean Corpuscular 36.0 Hemoglobin Anh nt Red Cell 15.9 H Distribution Width Platelet Count 18 *L Mean Platelet Volume Immature 1.000 H Granulocytes % Neutrophils % Segmented 61 Neutrophils % (Manual) Band Neutrophils 13 H % (Manual) Lymphocytes % Lymphocytes % 21 (Manual) Reactive 1 H Lymphocytes % (Manual) Monocytes % Monocytes % 4 (Manual) Eosinophils % Basophils % Nucleated Red 0.0 Blood Cells % Immature 0.110 H Granulocytes # Neutrophils # Neutrophils # 7.0 (Manual) Band Neutrophils 1.4 H # Lymphocytes 2.3 (Manual) Lymphocytes # Reactive 0.1 H Lymphocytes # Monocytes # Monocytes # 0.4 (Manual) Eosinophils # Basophils # Nucleated Red Blood Cells # Platelet SIG DECREASED Estimate Giant Platelets 3 H Poikilocytosis 3+ Anisocytosis 2+ Macrocytosis 2+ Spherocytes 1+ Lab Scanned BLOOD TRANSFUSI Report ON Bedside Glucose 133 Sodium Level 134 L Potassium Level 4.3 Chloride Level 102 Carbon Dioxide 20 L Level Anion Gap 12 Blood Urea 42 H Nitrogen Creatinine 1.03 H Est Glomerular 55 L Filtrat Rate mL/min Glucose Level 117 Calcium Level 7.7 L Phosphorus Level 5.0 H Magnesium Level 1.8 Test 12/01/18 09:13 12/01/18 13:07 Bedside Glucose 145 126 Medications Medication Current Medications Ondansetron HCl (Zofran Inj) 4 mg Q6H PRN IV NAUSEA AND/OR VOMITING Last administered on 11/21/18at 16:50; Admin Dose 4 MG; Start 11/21/18 at 05:30 Albuterol/ Ipratropium (Duoneb) 3 ml Q2H RESP THERAPY PRN NEB SHORTNESS OF BREATH; Start 11/21/18 at 05:30 Acetaminophen (Tylenol Liquid) 650 mg Q6H PRN PO PAIN LEVEL 1-3 OR FEVER; Start 11/21/18 at 05:30 Folic Acid (Folic Acid) 1 mg DAILY PO Last administered on 12/01/18at 09:15; Admin Dose 1 MG; Start 11/21/18 at 09:00 Meropenem/Sodium Chloride 50 ml @ 100 mls/hr Q12 IVPB Last administered on 12/01/18at 09:14; Admin Dose 100 MLS/HR; Start 11/21/18 at 21:00 Norepinephrine 250 ml @ 1.875 mls/ hr TITRATE IV Last administered on 12/01/18at 06:17; Admin Dose 1.875 MLS/HR; Start 11/21/18 at 19:00 Caspofungin 50 mg/ Sodium Chloride 250 ml @ 250 mls/hr Q24H IVPB Last administered on 12/01/18at 13:05; Admin Dose 250 MLS/HR; Start 11/24/18 at 13:00 Miscellaneous Information 1 ea NOTE XX ; Start 11/23/18 at 13:30 Glucose (Glutose) 15 gm Q15M PRN PO DECREASED GLUCOSE; Start 11/23/18 at 13:30 Glucose (Glutose) 22.5 gm Q15M PRN PO DECREASED GLUCOSE; Start 11/23/18 at 13:30 Dextrose (D50w Syringe) 25 ml Q15M PRN IV DECREASED GLUCOSE Last administered on 11/26/18at 17:41; Admin Dose 25 ML; Start 11/23/18 at 13:30 Dextrose (D50w Syringe) 50 ml Q15M PRN IV DECREASED GLUCOSE Last administered on 11/26/18at 13:03; Admin Dose 50 ML; Start 11/23/18 at 13:30 Glucagon (Glucagen) 1 mg Q15M PRN IM DECREASED GLUCOSE; Start 11/23/18 at 13:30 Glucose (Glutose) 15 gm Q15M PRN BUCCAL DECREASED GLUCOSE; Start 11/23/18 at 13 :30 Propofol 100 ml @ 1.59 mls/hr Q12H IV Last administered on 11/28/18at 22:39; Admin Dose 3.18 MLS/HR; Start 11/24/18 at 00:00 Phenylephrine HCl 80 mg/Dextrose 250 ml @ 18.75 mls/ hr TITRATE IV ; Start 11/24/18 at 00:00 Heparin Sodium (Porcine) (Heparin (1000 Units/ml)) 6,300 unit AFTER DIALYSIS CATHETER Last administered on 11/30/18 12:27; Admin Dose 6,300 UNIT; Start 11/24/18 at 17:30 Famotidine (Pepcid) 20 mg DAILY PO Last administered on 12/01/18 09:15; Admin Dose 20 MG; Start 11/26/18 at 09:00 Alteplase, Recombinant (Cathflo (Activase)) 2 mg MAY REPEAT X1 PRN CATHETER IF CATHETER REMAINS OCCULUDED Last administered on 11/26/18 09:04; Admin Dose 2 MG; Start 11/26/18 at 03:00 Albumin Human 100 ml @ 100 mls/hr DURING DIALYSIS PRN IV HYPOTENSION DURING HD Last administered on 11/30/18 10:56; Admin Dose 100 MLS/HR; Start 11/26/18 at 14:00 Clindamycin HCl/ Dextrose 50 ml @ 50 mls/hr Q8 IVPB Last administered on 12/01/18 15:12; Admin Dose 50 MLS/HR; Start 11/26/18 at 14:00 Diagnostic Test (Pha) (Accu-Chek) 1 ea Q4 XX Last administered on 12/01/18 13:06; Admin Dose 1 EA; Start 11/27/18 at 13:00 Levothyroxine Sodium (Synthroid) 75 mcg BEFORE BREAKFAST NGT Last administered on 12/01/18 06:12; Admin Dose 75 MCG; Start 11/29/18 at 07:00 Midazolam HCl 50 ml @ 1 mls/hr TITRATE IV Last administered on 11/30/18 05:15; Admin Dose 50 MLS/HR; Start 11/29/18 at 09:00 Sodium Chloride 154 meq/Dextrose 1,038.5 ml @ 30 mls/hr Q24H IV Last administered on 11/30/18 10:24; Admin Dose 30 MLS/HR; Start 11/30/18 at 10:00 Amiodarone HCl (Cordarone) 200 mg BID PO Last administered on 12/01/18 09:15; Admin Dose 200 MG; Start 11/30/18 at 09:30 Collagenase (Santyl) 1 applic DAILY TOP ; Start 12/02/18 at 09:00 RIKA STOCK Dec 01, 2018 15:25
[2018-12-01] MEDS: COLLAGENASE 5 GM (UD JAR) TOP SCH (17:08)
[2018-12-01] MEDS: PROPOFOL 100 ML IV SCH ×2 (20:45)
[2018-12-01] MEDS: SODIUM CHLORIDE 23.4% 154 MEQ in DEXTROSE 10% 1,000 ML IV SCH (20:58)
[2018-12-01] MEDS: ONDANSETRON 4 MG INJ IV PRN (23:05)
[2018-12-02] VITALS (109 sets, daily range): BP systolic 59–121; BP diastolic 41–79; PULSE 59–148; RESP 5–36
[2018-12-02] MEDS: ACCU-CHEK XX SCH ×6 (01:41→21:20)
[2018-12-02] MEDS: CLINDAMYCIN 600 MG/D5W (PMX) 50 ML IVPB SCH ×3 (05:46→21:20)
[2018-12-02] MEDS: NORepinephrine 8MG/250 ML (PMX 250 ML IV SCH ×2 (05:52→21:41)
[2018-12-02] MEDS ORDERED: EPOETIN ALFA-EPBX (ESRD) 10,000 UNIT/ML VIAL SC ONE (08:00)
--- NOTE | 2018-12-02 08:02 | PN ---
DATE: 12/02/2018 SUBJECTIVE: The patient remains critically ill on pressor support. No other acute events noted. No hemoptysis, hematemesis or hematochezia. The patient is on full ventilatory support. OBJECTIVE: VITAL SIGNS: Blood pressure is 105/68, respirations 20, pulse 66, temperature 98.6. HEENT: Head is normocephalic. NECK: Supple. HEART: Regular rate. LUNGS: Show diminished breath sounds at the base. Positive crackles. ABDOMEN: Soft, nontender to palpation without rebound or guarding. EXTREMITIES: Negative for clubbing, cyanosis. Positive edema. DERMATOLOGIC: No rashes. MUSCULOSKELETAL: No joint effusion. NEUROLOGIC: No change in exam. MEDICATIONS: Reviewed. LABORATORY DATA: From 12/02/2018 was reviewed. IMAGING STUDIES: Reviewed. ASSESSMENT AND PLAN: 1. End-stage renal disease. The patient has been receiving intermittent hemodialysis. Plan is for dialysis today and tomorrow for volume removal and solute clearance. 2. Volume overload with diffuse anasarca secondary to end-stage renal disease, IV fluids, capillary leak. We will continue ultrafiltration with hemodialysis. Anticipate daily dialysis for volume heath magui. The patient remains hemodynamically stable. We will discontinue dextrose drip. 3. Septic shock secondary to pneumonia and bacteremia. The patient's cultures have been reviewed. Continue pressor support, wean off if possible. Continue broad spectrum antibiotics. Follow up with Infectious Disease. 4. Anemia. Continue to monitor hemoglobin and hematocrit levels. Continue Epogen. 5. Hypernatremia, improving. Continue dialysis on a 140 sodium bath. 6. Hypokalemia. Continue to monitor and replete. 7. Mineral bone disorder, monitor calcium and phosphorus levels. 8. Ventilator-dependent respiratory failure. Vent settings and ABG was reviewed. Continue to monit or. 9. Acute encephalopathy, etiology is toxic metabolic. 10. 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 Platelet levels remain low. We will continue to monitor. Transfuse as needed. 11. Ascites. The patient is status post paracentesis. Continue to monitor. 12. Hypothyroidism. Continue Synthroid. 13. Lactic acidosis. Continue to monitor. 14. Dysphagia. Continue tube feeding. 15. Hypomagnesemia. Continue to monitor and replete as needed. 16. Status post cardiac arrest. 17. Hyperglycemia, improving. We will discontinue dextrose drip. 18. Arrhythmia, atrial fibrillation. Continue amiodarone. 19. Lower extremity wounds. Continue wound care. Please note I spent over 30 minutes of critical care time with this patient. Dictated By: SARIKA JOINER DO NR/NTS Conf#: [id number] DID#: [id number] CC: LORRAINE JOHNSON MD; MANDY BATES MD; RIKA STOCK MD;*EndCC*
[2018-12-02] MEDS: FOLIC ACID 1 MG TAB PO SCH (08:15)
[2018-12-02] MEDS: LEVOTHYROXINE 75 MCG TAB NGT SCH (08:15)
[2018-12-02] MEDS: FAMOTIDINE 20 MG TAB PO SCH (08:15)
[2018-12-02] MEDS: AMIODARONE 200 MG TAB PO SCH (08:16)
[2018-12-02] MEDS: MEROPENEM 500MG/50 ML (PMX) 50 ML IVPB SCH ×2 (08:16→21:19)
--- NOTE | 2018-12-02 08:16 | CONS ---
Consult Date/Type/Reason Admit Date/Time Nov 21, 2018 at 04:53 Initial Consult Date Type of Consult Pulmonary Requesting Provider: RIKA STOCK Date/Time of Note DATE: 12/02/18 TIME: 08:14 Subjective Patient stable this morning no respiratory distress opens eyes appears comfortable continues vasopressor support mechanical ventilation. Objective Vital Signs Date Temp Pulse Resp B/P (MAP) Pulse Ox O2 O2 Flow FiO2 Time Delivery Rate 12/02/18 71 21 99 30 07:56 12/02/18 107/69 Mechanical 06:00 (82) Ventilator 12/02/18 96.8 04:00 Intake and Output 12/01/18 12/01/18 12/02/18 1515:00 23:00 07:00 IntakeIntake Total 1000.00 ml 808.50 ml 623.75 ml OutputOutput Total 0 ml 0 ml 0 ml BalanceBalance 1000.00 ml 808.50 ml 623.75 ml Exam GENERAL: Thin cachectic lady on mechanical ventilation VITAL SIGNS: per chart NECK: Supple. No JVD or lymphadenopathy. CARDIAC EXAM: S1, S2. No added sounds or murmurs. CHEST: Diminished air entry bilaterally ABDOMEN: Soft, nontender. No guarding or rebound. EXTREMITIES: No cyanosis, clubbing or edema. NEUROLOGIC: Generalized weakness. Vent Setting Ventilator Support Mode: AC Fraction of Inspired Oxygen pe: 30 Positive End Expiratory Pressu: 5.0 Results/Medications Result Diagram: 12/02/18 0400 12/02/18 0400 Results 24 hrs Laboratory Tests Test 12/01/18 09:13 12/01/18 13:07 12/01/18 17:18 12/01/18 20:57 Bedside Glucose 145 126 147 147 Test 12/02/18 01:16 12/02/18 04:00 12/02/18 05:50 Bedside Glucose 152 121 White Blood Count 11.6 H Red Blood Count 3.67 L Hemoglobin 10.7 L Hematocrit 31.0 L Mean Corpuscular 84.5 Volume Mean Corpuscular 29.2 Hemoglobin Mean Corpuscular 34.5 Hemoglobin Concent Red Cell 16.7 H Distribution Width Platelet Count 24 #*L Mean Platelet Volume Immature 0.800 H Granulocytes % Neutrophils % Lymphocytes % Monocytes % Eosinophils % Basophils % Nucleated Red Blood 0.0 Cells % Immature 0.090 H Granulocytes # Neutrophils # Lymphocytes # Monocytes # Eosinophils # Basophils # Nucleated Red Blood Cells # Sodium Level 134 L Potassium Level 4.0 Chloride Level 103 Carbon Dioxide Level 20 L Anion Gap 11 Blood Urea Nitrogen 52 H Creatinine 1.15 H Est Glomerular 48 L Filtrat Rate mL/min Glucose Level 101 Calcium Level 7.6 L Phosphorus Level 4.7 Magnesium Level 1.8 Medications Current Medications Ondansetron HCl (Zofran Inj) 4 mg Q6H PRN IV NAUSEA AND/OR VOMITING Last administered on 12/01/18at 23:05; Admin Dose 4 MG; Start 11/21/18 at 05:30 Albuterol/ Ipratropium (Duoneb) 3 ml Q2H RESP THERAPY PRN NEB SHORTNESS OF BREATH; Start 11/21/18 at 05:30 Acetaminophen (Tylenol Liquid) 650 mg Q6H PRN PO PAIN LEVEL 1-3 OR FEVER; Start 11/21/18 at 05:30 Folic Acid (Folic Acid) 1 mg DAILY PO Last administered on 12/01/18at 09:15; Admin Dose 1 MG; Start 11/21/18 at 09:00 Meropenem/Sodium Chloride 50 ml @ 100 mls/hr Q12 IVPB Last administered on 12/01/18at 20:51; Admin Dose 100 MLS/HR; Start 11/21/18 at 21:00 Norepinephrine 250 ml @ 1.875 mls/ hr TITRATE IV Last administered on 12/02/18at 05:52; Admin Dose 11.25 MLS/HR; Start 11/21/18 at 19:00 Caspofungin 50 mg/ Sodium Chloride 250 ml @ 250 mls/hr Q24H IVPB Last administered on 12/01/18at 13:05; Admin Dose 250 MLS/HR; Start 11/24/18 at 13:00 Miscellaneous Information 1 ea NOTE XX ; Start 11/23/18 at 13:30 Glucose (Glutose) 15 gm Q15M PRN PO DECREASED GLUCOSE; Start 11/23/18 at 13:30 Glucose (Glutose) 22.5 gm Q15M PRN PO DECREASED GLUCOSE; Start 11/23/18 at 13:30 Dextrose (D50w Syringe) 25 ml Q15M PRN IV DECREASED GLUCOSE Last administered on 11/26/18at 17:41; Admin Dose 25 ML; Start 11/23/18 at 13:30 Dextrose (D50w Syringe) 50 ml Q15M PRN IV DECREASED GLUCOSE Last administered on 11/26/18 13:03; Admin Dose 50 ML; Start 11/23/18 at 13:30 Glucagon (Glucagen) 1 mg Q15M PRN IM DECREASED GLUCOSE; Start 11/23/18 at 13:30 Glucose (Glutose) 15 gm Q15M PRN BUCCAL DECREASED GLUCOSE; Start 11/23/18 at 13:30 Propofol 100 ml @ 1.59 mls/hr Q12H IV Last administered on 11/28/18 22:39; Admin Dose 3.18 MLS/HR; Start 11/24/18 at 00:00 Phenylephrine HCl 80 mg/Dextrose 250 ml @ 18.75 mls/ hr TITRATE IV ; Start 11/24/18 at 00:00 Heparin Sodium (Porcine) (Heparin (1000 Units/ml)) 6,300 unit AFTER DIALYSIS CATHETER Last administered on 11/30/18 12:27; Admin Dose 6,300 UNIT; Start 11/24/18 at 17:30 Famotidine (Pepcid) 20 mg DAILY PO Last administered on 12/01/18 09:15; Admin Dose 20 MG; Start 11/26/18 at 09:00 Alteplase, Recombinant (Cathflo (Activase)) 2 mg MAY REPEAT X1 PRN CATHETER IF CATHETER REMAINS OCCULUDED Last administered on 11/26/18 09:04; Admin Dose 2 MG; Start 11/26/18 at 03:00 Albumin Human 100 ml @ 100 mls/hr DURING DIALYSIS PRN IV HYPOTENSION DURING HD Last administered on 11/30/18 10:56; Admin Dose 100 MLS/HR; Start 11/26/18 at 14:00 Clindamycin HCl/ Dextrose 50 ml @ 50 mls/hr Q8 IVPB Last administered on 12/02/18 05:46; Admin Dose 50 MLS/HR; Start 11/26/18 at 14:00 Diagnostic Test (Pha) (Accu-Chek) 1 ea Q4 XX Last administered on 12/02/18 05:57; Admin Dose 1 EA; Start 11/27/18 at 13:00 Levothyroxine Sodium (Synthroid) 75 mcg BEFORE BREAKFAST NGT Last administered on 12/01/18 06:12; Admin Dose 75 MCG; Start 11/29/18 at 07:00 Midazolam HCl 50 ml @ 1 mls/hr TITRATE IV Last administered on 11/30/18at 05:15; Admin Dose 50 MLS/HR; Start 11/29/18 at 09:00 Sodium Chloride 154 meq/Dextrose 1,038.5 ml @ 30 mls/hr Q24H IV Last administered on 12/01/18at 20:58; Admin Dose 30 MLS/HR; Start 11/30/18 at 10:00 Amiodarone HCl (Cordarone) 200 mg BID PO Last administered on 12/01/18at 20:51; Admin Dose 200 MG; Start 11/30/18 at 09:30 Collagenase (Santyl) 1 applic DAILY TOP Last administered on 12/01/18at 17:08; Admin Dose 1 APPLIC; Start 12/01/18 at 16:30 Assessment/Plan Hospital Course (Demo Recall) assessment 1. Persistent septic shock likely secondary to pneumonia, chest x-ray shows bilateral infiltrates with likely pneumonia and volume overload. 2. Acute hypoxemic respiratory failure 3. History of cardiomyopathy 4. Severe thrombocytopenia with anemia no active GI bleeding 5. End-stage renal failure on hemodialysis Plan 1. Monitor H&H posttransfusion 2. Titrate pressors to keep map greater than 65 3. Tube feeding as tolerated 4. Random cortisol not consistent with adrenal insufficiency 5. Hemodialysis as tolerated 6. Continue amiodarone for rate control 6. CPAP trial this morning although I do not expect patient will be safely extubated. Following CPAP trial will discuss with family goals of care. Prognosis remains extremely poor. Critical care time 40 minutes. Long discussion with family at bedside. NINA MORRIS MD, [facility] Dec 02, 2018 08:16
[2018-12-02] MEDS: BALSAM PERU/CASTOR OIL 60 GM TUBE TOP SCH ×2 (08:21→21:20)
[2018-12-02] MEDS: COLLAGENASE 5 GM (UD JAR) TOP SCH (08:21)
[2018-12-02] MEDS: SODIUM CHLORIDE 23.4% 154 MEQ in DEXTROSE 10% 1,000 ML IV SCH (10:00)
[2018-12-02] MEDS: PROPOFOL 100 ML IV SCH ×2 (10:22)
--- NOTE | 2018-12-02 14:54 | CONS ---
Assessment/Plan Assessment/Plan Hospital Course (Demo Recall) No acute changes patient is status post hemodialysis awake comfortable on vent,no fevers. She remains on Levophed drip WBC 11.6 platelets 24 Antimicrobials: Clindamycin, Cancidas, meropenem Microbiology: Blood culture on admission grew Klebsiella ESBL, repeat blood cultures negative, left thigh wound culture grew Klebsiella ESBL and Leah albicans Allergy: Zosyn, vancomycin Indwelling: Right upper thigh Davie catheter, left femoral triple-lumen catheter, endotracheal tube, orogastric tube, midline Physical examination: This is a chronically ill-appearing cachectic middle-aged woman who is laying comfortably in bed. Head atraumatic normocephalic. Neck is supple. Chest rise symmetrical. Breath sounds diminished bases. Heart: S1-S2, irreg. Abdomen distended. Bowel sounds hypoactive. Extremities with bilateral edema, cyanotic, multiple ecchymotic areas and bruises, left upper thigh dressing present is Assessment: 1. Severe sepsis with shock 2. Acute hypoxemic respiratory failure secondary to CHF exacerbation/probable pneumonia 3. Klebsiella ESBL bacteremia likely 2 to #4 4. 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 End-stage renal disease, hemodialysis dependent 6. Atrial fibrillation/PPM 7. Unstageable sacral decubitus 8. History of peritoneal dialysis with peritoneal dialysis still in place 9. Ascites status post paracentesis 3 weeks ago 10. Failure to thrive 11. Progressive thrombocytopenia 12. B mastoiditis and acute sinusitis per CT Plan: Remains unchanged, continue antibiotics, vent per pulmonary Consultation Date/Type/Reason Admit Date/Time Nov 21, 2018 at 04:53 Initial Consult Date Type of Consult id Requesting Provider: RIKA STOCK Date/Time of Note DATE: 12/02/18 TIME: 14:53 Exam/Review of Systems Exam Vitals Vital Signs Date Temp Pulse Resp B/P (MAP) Pulse Ox O2 O2 Flow FiO2 Time Delivery Rate 12/02/18 80 21 112/73 99 Mechanical 14:41 (86) Ventilator 12/02/18 30 13:00 12/02/18 97.6 12:00 Intake and Output 12/01/18 12/01/18 12/02/18 1515:00 23:00 07:00 IntakeIntake Total 1000.00 ml 808.50 ml 700.00 ml OutputOutput Total 0 ml 0 ml 0 ml BalanceBalance 1000.00 ml 808.50 ml 700.00 ml Results Result Diagram: 12/02/18 0400 12/02/18 0400 Results 24hrs Laboratory Tests Test 12/01/18 17:18 12/01/18 20:57 12/02/18 01:16 12/02/18 04:00 Bedside Glucose 147 147 152 White Blood 11.6 H Count Red Blood Count 3.67 L Hemoglobin 10.7 L Hematocrit 31.0 L Mean Corpuscular 84.5 Volume Mean Corpuscular 29.2 Hemoglobin Mean Corpuscular 34.5 Hemoglobin Anh nt Red Cell 16.7 H Distribution Width Platelet Count 24 #*L Mean Platelet Volume Immature 0.800 H Granulocytes % Neutrophils % Segmented 75 Neutrophils % (Manual) Band Neutrophils 18 H % (Manual) Lymphocytes % Lymphocytes % 4 L (Manual) Monocytes % Monocytes % 3 (Manual) Eosinophils % Basophils % Nucleated Red 0.0 Blood Cells % Immature 0.090 H Granulocytes # Neutrophils # Neutrophils # 8.9 H (Manual) Band Neutrophils 2.0 H # Lymphocytes 0.4 L (Manual) Lymphocytes # Monocytes # Monocytes # 0.3 (Manual) Eosinophils # Basophils # Nucleated Red Blood Cells # Platelet SIG DECREASED Estimate Giant Platelets 3 H Hypochromasia 1+ Poikilocytosis 2+ Anisocytosis 2+ Microcytosis 1+ Macrocytosis 2+ Sodium Level 134 L Potassium Level 4.0 Chloride Level 103 Carbon Dioxide 20 L Level Anion Gap 11 Blood Urea 52 H Nitrogen Creatinine 1.15 H Est Glomerular 48 L Filtrat Rate mL/min Glucose Level 101 Calcium Level 7.6 L Phosphorus Level 4.7 Magnesium Level 1.8 Test 12/02/18 05:50 12/02/18 08:24 12/02/18 10:30 12/02/18 12:47 Bedside Glucose 121 120 94 Blood Gas Blood arterial Specimen Source Arterial Blood 12/02/2018 10:16 Date Drawn :50 AM Arterial Blood 7.328 L pH (Temp corrected) Arterial Blood 41.0 pCO2 (Temp correct) Arterial Blood 77.5 L pO2 (Temp corrected) Arterial Blood 21.0 L HCO3 Arterial Blood -4.6 L Base Excess Arterial Blood 93.8 L Oxygen Saturatio n Morgan Test N/A Arterial Blood Right Brachial Gas Puncture Site Arterial 0.5 Blood Carboxyhem oglobin Arterial Blood 0.3 Methemoglobin Blood Gas A-a O2 88.2 H Differential Oxyhemoglobin 93.0 Percent Blood Gas 37.0 Temperature Blood Gas Actual 37 Respiration Rate Blood Gas VENT - CPAP Modality FiO2 30.0 Blood Gas Low 5.0 PEEP Setting Blood Gas 10 Pressure Support Blood Gas TM Notified Whom Blood Gas 12/02/2018 10:32 Notified Time :24 AM Medications Medication Current Medications Ondansetron HCl (Zofran Inj) 4 mg Q6H PRN IV NAUSEA AND/OR VOMITING Last administered on 12/01/18at 23:05; Admin Dose 4 MG; Start 11/21/18 at 05:30 Albuterol/ Ipratropium (Duoneb) 3 ml Q2H RESP THERAPY PRN NEB SHORTNESS OF BREATH; Start 11/21/18 at 05:30 Acetaminophen (Tylenol Liquid) 650 mg Q6H PRN PO PAIN LEVEL 1-3 OR FEVER; Start 11/21/18 at 05:30 Folic Acid (Folic Acid) 1 mg DAILY PO Last administered on 12/02/18at 08:15; Admin Dose 1 MG; Start 11/21/18 at 09:00 Meropenem/Sodium Chloride 50 ml @ 100 mls/hr Q12 IVPB Last administered on 12/02/18 08:16; Admin Dose 100 MLS/HR; Start 11/21/18 at 21:00 Norepinephrine 250 ml @ 1.875 mls/ hr TITRATE IV Last administered on at 05:52; Admin Dose 11.25 MLS/HR; Start 11/21/18 at 19:00 Caspofungin 50 mg/ Sodium Chloride 250 ml @ 250 mls/hr Q24H IVPB Last administered on 12/01/18at 13:05; Admin Dose 250 MLS/HR; Start 11/24/18 at 13:00 Miscellaneous Information 1 ea NOTE XX ; Start 11/23/18 at 13:30 Glucose (Glutose) 15 gm Q15M PRN PO DECREASED GLUCOSE; Start 11/23/18 at 13:30 Glucose (Glutose) 22.5 gm Q15M PRN PO DECREASED GLUCOSE; Start 11/23/18 at 13:30 Dextrose (D50w Syringe) 25 ml Q15M PRN IV DECREASED GLUCOSE Last administered on 11/26/18at 17:41; Admin Dose 25 ML; Start 11/23/18 at 13:30 Dextrose (D50w Syringe) 50 ml Q15M PRN IV DECREASED GLUCOSE Last administered on 11/26/18 13:03; Admin Dose 50 ML; Start 11/23/18 at 13:30 Glucagon (Glucagen) 1 mg Q15M PRN IM DECREASED GLUCOSE; Start 11/23/18 at 13:30 Glucose (Glutose) 15 gm Q15M PRN BUCCAL DECREASED GLUCOSE; Start 11/23/18 at 13:30 Propofol 100 ml @ 1.59 mls/hr Q12H IV Last administered on 11/28/18 22:39; Admin Dose 3.18 MLS/HR; Start 11/24/18 at 00:00 Phenylephrine HCl 80 mg/Dextrose 250 ml @ 18.75 mls/ hr TITRATE IV ; Start 11/24/18 at 00:00 Heparin Sodium (Porcine) (Heparin (1000 Units/ml)) 6,300 unit AFTER DIALYSIS CATHETER Last administered on 11/30/18 12:27; Admin Dose 6,300 UNIT; Start 11/24/18 at 17:30 Famotidine (Pepcid) 20 mg DAILY PO Last administered on 12/02/18 08:15; Admin Dose 20 MG; Start 11/26/18 at 09:00 Alteplase, Recombinant (Cathflo (Activase)) 2 mg MAY REPEAT X1 PRN CATHETER IF CATHETER REMAINS OCCULUDED Last administered on 11/26/18 09:04; Admin Dose 2 MG; Start 11/26/18 at 03:00 Albumin Human 100 ml @ 100 mls/hr DURING DIALYSIS PRN IV HYPOTENSION DURING HD Last administered on 11/30/18 10:56; Admin Dose 100 MLS/HR; Start 11/26/18 at 14:00 Clindamycin HCl/ Dextrose 50 ml @ 50 mls/hr Q8 IVPB Last administered on 12/02/18 05:46; Admin Dose 50 MLS/HR; Start 11/26/18 at 14:00 Diagnostic Test (Pha) (Accu-Chek) 1 ea Q4 XX Last administered on 12/02/18 05:57; Admin Dose 1 EA; Start 11/27/18 at 13:00 Levothyroxine Sodium (Synthroid) 75 mcg BEFORE BREAKFAST NGT Last administered on 12/02/18 08:15; Admin Dose 75 MCG; Start 11/29/18 at 07:00 Midazolam HCl 50 ml @ 1 mls/hr TITRATE IV Last administered on 11/30/18 05:15; Admin Dose 50 MLS/HR; Start 11/29/18 at 09:00 Sodium Chloride 154 meq/Dextrose 1,038.5 ml @ 30 mls/hr Q24H IV Last administered on 12/01/18 20:58; Admin Dose 30 MLS/HR; Start 11/30/18 at 10:00 Amiodarone HCl (Cordarone) 200 mg BID PO Last administered on 12/02/18 08:16; Admin Dose 200 MG; Start 11/30/18 at 09:30 Collagenase (Santyl) 1 applic DAILY TOP Last administered on 12/02/18 08:21; Admin Dose 1 APPLIC; Start 12/01/18 at 16:30 KELSIE ELY NP Dec 02, 2018 14:54
--- NOTE | 2018-12-02 15:19 | CONS ---
Assessment/Plan Assessment/Plan Hospital Course 58 yo F with hx of afib, ESRD on peritoneal dialysis, and other comorbidities... who initially presented with ams in the context of hypotension and severe hypoglycemia. Now s/p PEA arrest on 11/24; Targeted temperature therapy was deferred.. She remains protractedly encephalopathic, for which neurology is consulted. The clinical picture suggests an acute toxic-metabolic (?on chronic) encephalopathy. HCT is reassuringly without obvious acute intracranial pathology. CXR + PNA Na 127, phos 6.9 ammonia, TSH, B12 wnl plt 24 P: OK to defer MRI brain for now Cont medical management per primary [place] as able Limit sedating medications where possible PT/OT when able Will follow clinically Consultation Date/Type/Reason Admit Date/Time Nov 21, 2018 at 04:53 Type of Consult Neurology Reason for Consultation ams Requesting Provider: RIKA STOCK Date/Time of Note DATE: 12/02/18 TIME: 15:17 24 HR Interval Summary Free Text/Dictation Continues critical care. Subjective hx not possible: pt non-verbal Exam Vital Signs Vitals Vital Signs Date Temp Pulse Resp B/P (MAP) Pulse Ox O2 O2 Flow FiO2 Time Delivery Rate 12/02/18 91 14:55 12/02/18 21 112/73 99 Mechanical 14:41 (86) Ventilator 12/02/18 30 13:00 12/02/18 97.6 12:00 Intake and Output 12/01/18 12/01/18 12/02/18 1515:00 23:00 07:00 IntakeIntake Total 1000.00 ml 808.50 ml 700.00 ml OutputOutput Total 0 ml 0 ml 0 ml BalanceBalance 1000.00 ml 808.50 ml 700.00 ml Exam PE: Gen Appearance: No Apparent Distress HEENT: Intubated Cardiovascular: Regular rate Abdomen: Soft Extremities: Dry NE: The patient was awake and alert, though nonverbal d/t trach. Able to gesture and nod appropriately to yes/no questions. Able to follow simple axial and appendicular commands. Cranial nerve examination was limited by mental status. Pupils were equal and reactive to light. There was no afferent pupillary defect. Funduscopic examinat ion was limited. Face was grossly symmetric, w/ present corneal and cough reflexes. Tone was normal. Muscle bulk was severely diminished. I did not see fasciculations. The patient was generally very weak. Coordination and gait testing was limited by mental status. Arm and leg reflexes were within normal limits and symmetric. Alvarez's sign was absent. Plantar responses were flexor. HOLLY FISHER NP Dec 02, 2018 15:19
[2018-12-02] MEDS ORDERED: AMIODARONE 150MG/D5W BOLUS 100 ML ONE (15:33)
--- NOTE | 2018-12-02 15:33 | PN ---
Date/Time of Note Date/Time of Note DATE: 12/02/18 TIME: 15:31 Assessment/Plan VTE Prophylaxis Risk score (from Nsg)>0 risk: 8 Pharmacological prophylaxis: NA/contraindicated Pharm contraindication: renal impairment Lines/Catheters IV Catheter Type (from Nrsg): Mid Line Assessment/Plan Hospital Course 58 yo female with ESRD, cirrhosis, DMII presents with hypoglycemia, leg infection. Suffered cardiac and respiratory arrest, now intubated Cardiac arrest, acute respiratory failure: -Mentation appears to be improving - Continue vasopressors and mechanical ventilation per pulmonary - Goals of care discussions with family Hypoglycemia: No history of diabetes and patient not on any insulin or sulfonylurea or any other diabetic medication - Continue IV dextrose and tube feeds Left lower extremity wound - Antibiotics per ID -Venous study was negative for DVT Paroxysmal A Fib: -Patient back in A. fib with RVR, amiodarone drip restarted -Hold p.o. amiodarone at this time ESRD with fluid overload - HD per nephrology Pancytopenia with coagulopathy, thrombocytopenia: Patient had workup here during recent hospitalization. -Thrombocytopenia was thought to be secondary to HIT but may be related to liver disease -Per son, patient did receive platelet transfusion at [facility] -Picture of pancytopenia with macrocytic anemia and coagulopathy does appear consistent with liver disease, await liver ultrasound Hypothyroidism: Continue Synthroid History of pacemaker: No acute issue Ascites secondary to fluid overload and/or liver disease: Status post paracentesis 3 weeks ago with removal of 4.5 L - s/p paracentesis, in addition patient's blood pressure is low Chronic peritoneal dialysis: This is not being used. Not being removed because of the severe thrombocytopenia. This can be addressed at [facility] where she usually gets her care Failure to thrive: Patient is very cachectic -Nutrition consult Prophylaxis: SCDs DC planning: Poor prognosis. Continue goals of care discussions with family. So far unwilling to consider withdrawal of care Result Diagram: 12/02/18 0400 12/02/18 0400 Results 24hrs Laboratory Tests Test 12/01/18 17:18 12/01/18 20:57 12/02/18 01:16 12/02/18 04:00 Bedside Glucose 147 147 152 White Blood 11.6 H Count Red Blood Count 3.67 L Hemoglobin 10.7 L Hematocrit 31.0 L Mean Corpuscular 84.5 Volume Mean Corpuscular 29.2 Hemoglobin Mean Corpuscular 34.5 Hemoglobin Anh nt Red Cell 16.7 H Distribution Width Platelet Count 24 #*L Mean Platelet Volume Immature 0.800 H Granulocytes % Neutrophils % Segmented 75 Neutrophils % (Manual) Band Neutrophils 18 H % (Manual) Lymphocytes % Lymphocytes % 4 L (Manual) Monocytes % Monocytes % 3 (Manual) Eosinophils % Basophils % Nucleated Red 0.0 Blood Cells % Immature 0.090 H Granulocytes # Neutrophils # Neutrophils # 8.9 H (Manual) Band Neutrophils 2.0 H # Lymphocytes 0.4 L (Manual) Lymphocytes # Monocytes # Monocytes # 0.3 (Manual) Eosinophils # Basophils # Nucleated Red Blood Cells # Platelet SIG DECREASED Estimate Giant Platelets 3 H Hypochromasia 1+ Poikilocytosis 2+ Anisocytosis 2+ Microcytosis 1+ Macrocytosis 2+ Sodium Level 134 L Potassium Level 4.0 Chloride Level 103 Carbon Dioxide 20 L Level Anion Gap 11 Blood Urea 52 H Nitrogen Creatinine 1.15 H Est Glomerular 48 L Filtrat Rate mL/min Glucose Level 101 Calcium Level 7.6 L Phosphorus Level 4.7 Magnesium Level 1.8 Test 12/02/18 05:50 12/02/18 08:24 12/02/18 10:30 12/02/18 12:47 Bedside Glucose 121 120 94 Blood Gas Blood arterial Specimen Source Arterial Blood 12/02/2018 10:16 Date Drawn :50 AM Arterial Blood 7.328 L pH (Temp corrected) Arterial Blood 41.0 pCO2 (Temp correct) Arterial Blood 77.5 L pO2 (Temp corrected) Arterial Blood 21.0 L HCO3 Arterial Blood -4.6 L Base Excess Arterial Blood 93.8 L Oxygen Saturatio n Morgan Test N/A Arterial Blood Right Brachial Gas Puncture Site Arterial 0.5 Blood Carboxyhem oglobin Arterial Blood 0.3 Methemoglobin Blood Gas A-a O2 88.2 H Differential Oxyhemoglobin 93.0 Percent Blood Gas 37.0 Temperature Blood Gas Actual 37 Respiration Rate Blood Gas VENT - CPAP Modality FiO2 30.0 Blood Gas Low 5.0 PEEP Setting Blood Gas 10 Pressure Support Blood Gas TM Notified Whom Blood Gas 12/02/2018 10:32 Notified Time :24 AM Subjective 24 Hr Interval Summary Subjective hx not possible: pt non-verbal Exam/Review of Systems Exam Vitals Vital Signs Date Temp Pulse Resp B/P (MAP) Pulse Ox O2 O2 Flow FiO2 Time Delivery Rate 12/02/18 148 15:25 12/02/18 21 112/73 99 Mechanical 14:41 (86) Ventilator 12/02/18 30 13:00 12/02/18 97.6 12:00 Intake and Output 12/01/18 12/01/18 12/02/18 1515:00 23:00 07:00 IntakeIntake Total 1000.00 ml 808.50 ml 700.00 ml OutputOutput Total 0 ml 0 ml 0 ml BalanceBalance 1000.00 ml 808.50 ml 700.00 ml Constitutional: non-verbal ENMT: intubated Respiratory: clear to auscultation Cardiovascular: regular rate and rhythm Gastrointestinal: soft; No distended Musculoskeletal: nl extremities to inspection Results Results 24hrs Laboratory Tests Test 12/01/18 17:18 12/01/18 20:57 12/02/18 01:16 12/02/18 04:00 Bedside Glucose 147 147 152 White Blood 11.6 H Count Red Blood Count 3.67 L Hemoglobin 10.7 L Hematocrit 31.0 L Mean Corpuscular 84.5 Volume Mean Corpuscular 29.2 Hemoglobin Mean Corpuscular 34.5 Hemoglobin Anh nt Red Cell 16.7 H Distribution Width Platelet Count 24 #*L Mean Platelet Volume Immature 0.800 H Granulocytes % Neutrophils % Segmented 75 Neutrophils % (Manual) Band Neutrophils 18 H % (Manual) Lymphocytes % Lymphocytes % 4 L (Manual) Monocytes % Monocytes % 3 (Manual) Eosinophils % Basophils % Nucleated Red 0.0 Blood Cells % Immature 0.090 H Granulocytes # Neutrophils # Neutrophils # 8.9 H (Manual) Band Neutrophils 2.0 H # Lymphocytes 0.4 L (Manual) Lymphocytes # Monocytes # Monocytes # 0.3 (Manual) Eosinophils # Basophils # Nucleated Red Blood Cells # Platelet SIG DECREASED Estimate Giant Platelets 3 H Hypochromasia 1+ Poikilocytosis 2+ Anisocytosis 2+ Microcytosis 1+ Macrocytosis 2+ Sodium Level 134 L Potassium Level 4.0 Chloride Level 103 Carbon Dioxide 20 L Level Anion Gap 11 Blood Urea 52 H Nitrogen Creatinine 1.15 H Est Glomerular 48 L Filtrat Rate mL/min Glucose Level 101 Calcium Level 7.6 L Phosphorus Level 4.7 Magnesium Level 1.8 Test 12/02/18 05:50 12/02/18 08:24 12/02/18 10:30 12/02/18 12:47 Bedside Glucose 121 120 94 Blood Gas Blood arterial Specimen Source Arterial Blood 12/02/2018 10:16 Date Drawn :50 AM Arterial Blood 7.328 L pH (Temp corrected) Arterial Blood 41.0 pCO2 (Temp correct) Arterial Blood 77.5 L pO2 (Temp corrected) Arterial Blood 21.0 L HCO3 Arterial Blood -4.6 L Base Excess Arterial Blood 93.8 L Oxygen Saturatio n Morgan Test N/A Arterial Blood Right Brachial Gas Puncture Site Arterial 0.5 Blood Carboxyhem oglobin Arterial Blood 0.3 Methemoglobin Blood Gas A-a O2 88.2 H Differential Oxyhemoglobin 93.0 Percent Blood Gas 37.0 Temperature Blood Gas Actual 37 Respiration Rate Blood Gas VENT - CPAP Modality FiO2 30.0 Blood Gas Low 5.0 PEEP Setting Blood Gas 10 Pressure Support Blood Gas TM Notified Whom Blood Gas 12/02/2018 10:32 Notified Time :24 AM Medications Medication Current Medications Ondansetron HCl (Zofran Inj) 4 mg Q6H PRN IV NAUSEA AND/OR VOMITING Last administered on 12/01/18at 23:05; Admin Dose 4 MG; Start 11/21/18 at 05:30 Albuterol/ Ipratropium (Duoneb) 3 ml Q2H RESP THERAPY PRN NEB SHORTNESS OF BREATH; Start 11/21/18 at 05:30 Acetaminophen (Tylenol Liquid) 650 mg Q6H PRN PO PAIN LEVEL 1-3 OR FEVER; Start 11/21/18 at 05:30 Folic Acid (Folic Acid) 1 mg DAILY PO Last administered on 12/02/18 08:15; Admin Dose 1 MG; Start 11/21/18 at 09:00 Meropenem/Sodium Chloride 50 ml @ 100 mls/hr Q12 IVPB Last administered on 12/02/18 08:16; Admin Dose 100 MLS/HR; Start 11/21/18 at 21:00 Norepinephrine 250 ml @ 1.875 mls/ hr TITRATE IV Last administered on 12/02/18 05:52; Admin Dose 11.25 MLS/HR; Start 11/21/18 at 19:00 Caspofungin 50 mg/ Sodium Chloride 250 ml @ 250 mls/hr Q24H IVPB Last administered on 12/01/18 13:05; Admin Dose 250 MLS/HR; Start 11/24/18 at 13:00 Miscellaneous Information 1 ea NOTE XX ; Start 11/23/18 at 13:30 Glucose (Glutose) 15 gm Q15M PRN PO DECREASED GLUCOSE; Start 11/23/18 at 13:30 Glucose (Glutose) 22.5 gm Q15M PRN PO DECREASED GLUCOSE; Start 11/23/18 at 13:30 Dextrose (D50w Syringe) 25 ml Q15M PRN IV DECREASED GLUCOSE Last administered on 11/26/18 17:41; Admin Dose 25 ML; Start 11/23/18 at 13:30 Dextrose (D50w Syringe) 50 ml Q15M PRN IV DECREASED GLUCOSE Last administered on 11/26/18 13:03; Admin Dose 50 ML; Start 11/23/18 at 13:30 Glucagon (Glucagen) 1 mg Q15M PRN IM DECREASED GLUCOSE; Start 11/23/18 at 13:30 Glucose (Glutose) 15 gm Q15M PRN BUCCAL DECREASED GLUCOSE; Start 11/23/18 at 13:30 Propofol 100 ml @ 1.59 mls/hr Q12H IV Last administered on 11/28/18 22:39; Admin Dose 3.18 MLS/HR; Start 11/24/18 at 00:00 Phenylephrine HCl 80 mg/Dextrose 250 ml @ 18.75 mls/ hr TITRATE IV ; Start 11/24/18 at 00:00 Heparin Sodium (Porcine) (Heparin (1000 Units/ml)) 6,300 unit AFTER DIALYSIS CATHETER Last administered on 11/30/18 12:27; Admin Dose 6,300 UNIT; Start 11/24/18 at 17:30 Famotidine (Pepcid) 20 mg DAILY PO Last administered on 12/02/18 08:15; Admin Dose 20 MG; Start 11/26/18 at 09:00 Alteplase, Recombinant (Cathflo (Activase)) 2 mg MAY REPEAT X1 PRN CATHETER IF CATHETER REMAINS OCCULUDED Last administered on 11/26/18 09:04; Admin Dose 2 MG; Start 11/26/18 at 03:00 Albumin Human 100 ml @ 100 mls/hr DURING DIALYSIS PRN IV HYPOTENSION DURING HD Last administered on 11/30/18 10:56; Admin Dose 100 MLS/HR; Start 11/26/18 at 14:00 Clindamycin HCl/ Dextrose 50 ml @ 50 mls/hr Q8 IVPB Last administered on 12/02/18 05:46; Admin Dose 50 MLS/HR; Start 11/26/18 at 14:00 Diagnostic Test (Pha) (Accu-Chek) 1 ea Q4 XX Last administered on 12/02/18 05:57; Admin Dose 1 EA; Start 11/27/18 at 13:00 Levothyroxine Sodium (Synthroid) 75 mcg BEFORE BREAKFAST NGT Last administered on 12/02/18 08:15; Admin Dose 75 MCG; Start 11/29/18 at 07:00 Midazolam HCl 50 ml @ 1 mls/hr TITRATE IV Last administered on 11/30/18 05:15; Admin Dose 50 MLS/HR; Start 11/29/18 at 09:00 Sodium Chloride 154 meq/Dextrose 1,038.5 ml @ 30 mls/hr Q24H IV Last administered on 12/01/18 20:58; Admin Dose 30 MLS/HR; Start 11/30/18 at 10:00 Amiodarone HCl (Cordarone) 200 mg BID PO Last administered on 12/02/18 08:16; Admin Dose 200 MG; Start 11/30/18 at 09:30 Collagenase (Santyl) 1 applic DAILY TOP Last administered on 12/02/18 08:21; Admin Dose 1 APPLIC; Start 12/01/18 at 16:30 RIKA STOCK Dec 02, 2018 15:33
[2018-12-02] MEDS: ALTEPLASE (CATHFLO) 2 MG INJ CATHETER PRN (15:47)
[2018-12-02] MEDS: CASPOFUNGIN 50 MG in SOD CHLORIDE 0.9% 250 ML IVPB SCH (15:53)
[2018-12-02] MEDS ORDERED: AMIODARONE 150MG/D5W BOLUS 100 ML IV ONE (16:00)
[2018-12-02] MEDS ORDERED: AMIODARONE 900 MG in DEXTROSE 5% 482 ML IV SCH (16:00)
[2018-12-03] VITALS (107 sets, daily range): BP systolic 66–116; BP diastolic 53–81; PULSE 68–94; RESP 9–29
[2018-12-03] MEDS: ACCU-CHEK XX SCH ×6 (01:28→20:33)
[2018-12-03] MEDS: CLINDAMYCIN 600 MG/D5W (PMX) 50 ML IVPB SCH ×3 (05:38→21:19)
[2018-12-03] MEDS: LEVOTHYROXINE 75 MCG TAB NGT SCH (06:13)
[2018-12-03] MEDS: SODIUM CHLORIDE 23.4% 154 MEQ in DEXTROSE 10% 1,000 ML IV SCH (06:33)
[2018-12-03] MEDS: FOLIC ACID 1 MG TAB PO SCH (08:27)
[2018-12-03] MEDS: COLLAGENASE 5 GM (UD JAR) TOP SCH (08:27)
[2018-12-03] MEDS: MEROPENEM 500MG/50 ML (PMX) 50 ML IVPB SCH ×2 (08:27→20:32)
[2018-12-03] MEDS: FAMOTIDINE 20 MG TAB PO SCH (08:27)
[2018-12-03] MEDS: BALSAM PERU/CASTOR OIL 60 GM TUBE TOP SCH ×2 (08:28→20:33)
--- NOTE | 2018-12-03 08:30 | PN ---
DATE: 12/03/2018 SUBJECTIVE: The patient had a complicated course of dialysis yesterday. The patient became hemodyna mically unstable, dialysis had to be terminated early. The patient was placed on amiodarone drip. T he patient remains critically ill on pressor support, full ventilatory support and amiodarone drip. No other events noted. OBJECTIVE: VITAL SIGNS: Blood pressure is 91/64, respirations 21, pulse 85, temperature 98.6. HEENT: Head is normocephalic. Pupils are reactive to light. NECK: Supple. HEART: Tachycardic. LUNGS: Show diminished breath sounds at the base. ABDOMEN: Soft, nontender to palpation without rebound or guarding. EXTREMITIES: Negative for clubbing, cyanosis. Positive edema. DERMATOLOGIC: No rashes. MUSCULOSKELETAL: No joint effusion. NEUROLOGIC: No change in exam. MEDICATIONS: Reviewed. LABORATORY DATA: Reviewed. IMAGING STUDIES: Reviewed. ABG has been reviewed. ASSESSMENT AND PLAN: 1. End-stage renal disease. The patient had hemodialysis yesterday. We will plan for hemodialysis tomorrow. We will attempt dialysis for 3 hours 2k bath, calcium 2.5, ultrafiltrate as tolerated. 2. Volume overload. Etiology is multifactorial. We will continue to attempt ultrafiltration with d ialysis if the patient is hemodynamically stable, minimize IV fluids. 3. Septic shock secondary to pneumonia and bacteremia. The patient's cultures have been reviewed. Continue current treatment plan. Continue pressor support. Continue antibiotic therapy. Follow up with infectious disease. 4. Anemia. Continue to monitor hemoglobin and hematocrit levels. Continue Epogen. 5. Hypernatremia, improving. Continue dialysis on a 140 sodium bath. 6. Hyperkalemia, resolved. 7. Mineral bone disorder, monitor calcium and phosphorus levels. 8. Ventilator-dependent respiratory failure. Vent settings and ABG was reviewed. Continue to monit or. 9. Acute encephalopathy, etiology is toxic metabolic. 10. 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 Continue to monitor. Transfuse as needed. 11. Ascites, status post paracentesis. 12. Hypothyroidism. Continue Synthroid. 13. Dysphagia. Continue tube feeding. 14. Hypomagnesemia. Continue to monitor and replete as needed. 15. Hyperglycemia, improved. Discontinue dextrose drip. 16. Arrhythmia, atrial fibrillation, currently on amiodarone drip. 17. Lower extremity wounds. Continue wound care. 18. Status post cardiac arrest. Please note I spent over 30 minutes of critical care time with this patient. Dictated By: SARIKA JOINER DO NR/NTS Conf#: [id number] DID#: [id number] CC: LORRAINE JOHNSON MD; MANDY BATES MD; RIKA STOCK MD;*EndCC*
--- NOTE | 2018-12-03 09:40 | CONS ---
Assessment/Plan Assessment/Plan Assessment/Plan (Daily) Chest x-ray was reviewed from today which showed bilateral pneumonia. Superimposed pulmonary edema. Ventilator setting; AC of 20, tidal volume 450, PEEP of 5, 30% FiO2. Patient is currently on Levophed at 5 mics per minute. Amiodarone 0.5 mg/min. Assessment and recommendations; 1. Patient admitted with respiratory failure due to severe bilateral pneumonia as well as superimposed CHF. 2. Patient has failed multiple weaning attempts at ventilator. 3. Severely emaciated state. 4. Hypothyroidism. 5. Anemia and severe thrombocytopenia. 6. Chronic renal failure, on hemodialysis. 7. Klebsiella ~Pneumonia ESBL bacteremia. 8. Paroxysmal atrial for ablation, currently in sinus rhythm on amiodarone drip. 9. Lower extremity skin wounds. 10. Persistent hypotension. Continue current supportive care. Patient prognosis appears very poor. Patient's family is still contemplating about tracheostomy. Currently patient is not in a position to be weaned off from invasive mechanical ventilation due to severity of underlying pneumonia. We will monitor platelet count. 35 minutes of critical care time was spent evaluating the patient. Consultation Date/Type/Reason Admit Date/Time Nov 21, 2018 at 04:53 Initial Consult Date Type of Consult Pulmonary Requesting Provider: RIKA STOCK Date/Time of Note DATE: 12/03/18 TIME: 09:37 24 HR Interval Summary Free Text/Dictation Patient's condition remains critical. Still requiring fairly high rate of ventilator support. General exam; middle-aged female, orally intubated, awake, currently in no distress. Exam/Review of Systems Exam Vitals Vital Signs Date Temp Pulse Resp B/P (MAP) Pulse Ox O2 O2 Flow FiO2 Time Delivery Rate 12/03/18 77 20 82/61 (68) 100 Mechanical 09:00 Ventilator 12/03/18 98.3 08:00 12/03/18 30 08:00 Intake and Output 12/02/18 12/02/18 12/03/18 1515:00 23:00 07:00 IntakeIntake Total 569.25 ml 1258.6875 ml 833.150 ml OutputOutput Total 200 ml 500 ml 0 ml BalanceBalance 369.25 ml 758.6875 ml 833.150 ml Exam H ENT exam; supple neck, no JVD. No lymphadenopathy. Midline trachea. No thyromegaly. Orally intubated. Patient has a multiple carious teeth. Chest exam; diminished breath tones bilaterally. S1-S2 audible, no murmurs. Regular rhythm. Abdomen exam; scaphoid, no organomegaly. Nondistended. Bowel is audible. Extremity exam; no peripheral edema. Patient does have lower extremity wounds. [employer] exam; patient is arousable. Results Result Diagram: 12/03/18 0400 12/03/18 0400 Results 24hrs Laboratory Tests Test 12/02/18 10:30 12/02/18 12:47 12/02/18 17:33 12/02/18 21:18 Blood Gas Blood arterial Specimen Source Arterial Blood 12/02/2018 10:16 Date Drawn :50 AM Arterial Blood 7.328 L pH (Temp corrected) Arterial Blood 41.0 pCO2 (Temp correct) Arterial Blood 77.5 L pO2 (Temp corrected) Arterial Blood 21.0 L HCO3 Arterial Blood -4.6 L Base Excess Arterial Blood 93.8 L Oxygen Saturatio n Morgan Test N/A Arterial Blood Right Brachial Gas Puncture Site Arterial 0.5 Blood Carboxyhem oglobin Arterial Blood 0.3 Methemoglobin Blood Gas A-a O2 88.2 H Differential Oxyhemoglobin 93.0 Percent Blood Gas 37.0 Temperature Blood Gas Actual 37 Respiration Rate Blood Gas VENT - CPAP Modality FiO2 30.0 Blood Gas Low 5.0 PEEP Setting Blood Gas 10 Pressure Support Blood Gas TM Notified Whom Blood Gas 12/02/2018 10:32 Notified Time :24 AM Bedside Glucose 94 122 110 Test 12/03/18 01:26 12/03/18 04:00 12/03/18 05:37 12/03/18 08:32 Bedside Glucose 120 112 98 White Blood 11.5 H Count Red Blood Count 3.48 L Hemoglobin 10.3 L Hematocrit 30.2 L Mean Corpuscular 86.8 Volume Mean Corpuscular 29.6 Hemoglobin Mean Corpuscular 34.1 Hemoglobin Anh nt Red Cell 17.5 H Distribution Width Platelet Count 24 *L Mean Platelet Volume Immature 0.600 H Granulocytes % Neutrophils % Segmented 78 H Neutrophils % (Manual) Band Neutrophils 1 % (Manual) Lymphocytes % Lymphocytes % 14 L (Manual) Monocytes % Monocytes % 3 (Manual) Eosinophils % Basophils % Basophils % 4 H (Manual) Nucleated Red 0.0 Blood Cells % Immature 0.070 H Granulocytes # Neutrophils # Neutrophils # 9.0 H (Manual) Band Neutrophils 0.1 # Lymphocytes 1.6 (Manual) Lymphocytes # Monocytes # Monocytes # 0.3 (Manual) Eosinophils # Basophils # Basophils # 0.4 H (Manual) Nucleated Red Blood Cells # Platelet SIG DECREASED Estimate Giant Platelets 1 H Poikilocytosis 1+ Anisocytosis 1+ Macrocytosis 1+ Sodium Level 134 L Potassium Level 3.5 Chloride Level 103 Carbon Dioxide 21 Level Anion Gap 10 Blood Urea 48 H Nitrogen Creatinine 1.18 H Est Glomerular 47 L Filtrat Rate mL/min Glucose Level 132 Calcium Level 7.3 L Phosphorus Level 4.0 Magnesium Level 1.7 Medications Medication Current Medications Ondansetron HCl (Zofran Inj) 4 mg Q6H PRN IV NAUSEA AND/OR VOMITING Last administered on 12/01/18at 23:05; Admin Dose 4 MG; Start 11/21/18 at 05:30 Albuterol/ Ipratropium (Duoneb) 3 ml Q2H RESP THERAPY PRN NEB SHORTNESS OF BREATH; Start 11/21/18 at 05:30 Acetaminophen (Tylenol Liquid) 650 mg Q6H PRN PO PAIN LEVEL 1-3 OR FEVER; Start 11/21/18 at 05:30 Folic Acid (Folic Acid) 1 mg DAILY PO Last administered on 12/03/18 08:27; Admin Dose 1 MG; Start 11/21/18 at 09:00 Meropenem/Sodium Chloride 50 ml @ 100 mls/hr Q12 IVPB Last administered on 12/03/18 08:27; Admin Dose 100 MLS/HR; Start 11/21/18 at 21:00 Norepinephrine 250 ml @ 1.875 mls/ hr TITRATE IV Last administered on 12/02/18at 21:41; Admin Dose 11.25 MLS/HR; Start 11/21/18 at 19:00 Caspofungin 50 mg/ Sodium Chloride 250 ml @ 250 mls/hr Q24H IVPB Last administered on 12/02/18 15:53; Admin Dose 250 MLS/HR; Start 11/24/18 at 13:00 Miscellaneous Information 1 ea NOTE XX ; Start 11/23/18 at 13:30 Glucose (Glutose) 15 gm Q15M PRN PO DECREASED GLUCOSE; Start 11/23/18 at 13:30 Glucose (Glutose) 22.5 gm Q15M PRN PO DECREASED GLUCOSE; Start 11/23/18 at 13:30 Dextrose (D50w Syringe) 25 ml Q15M PRN IV DECREASED GLUCOSE Last administered on 11/26/18 17:41; Admin Dose 25 ML; Start 11/23/18 at 13:30 Dextrose (D50w Syringe) 50 ml Q15M PRN IV DECREASED GLUCOSE Last administered on 11/26/18 13:03; Admin Dose 50 ML; Start 11/23/18 at 13:30 Glucagon (Glucagen) 1 mg Q15M PRN IM DECREASED GLUCOSE; Start 11/23/18 at 13:30 Glucose (Glutose) 15 gm Q15M PRN BUCCAL DECREASED GLUCOSE; Start 11/23/18 at 13:30 Propofol 100 ml @ 1.59 mls/hr Q12H IV Last administered on 11/28/18 22:39; Admin Dose 3.18 MLS/HR; Start 11/24/18 at 00:00 Phenylephrine HCl 80 mg/Dextrose 250 ml @ 18.75 mls/ hr TITRATE IV ; Start 11/24/18 at 00:00 Heparin Sodium (Porcine) (Heparin (1000 Units/ml)) 6,300 unit AFTER DIALYSIS CATHETER Last administered on 11/30/18 12:27; Admin Dose 6,300 UNIT; Start 11/24/18 at 17:30 Famotidine (Pepcid) 20 mg DAILY PO Last administered on 12/03/18 08:27; Admin Dose 20 MG; Start 11/26/18 at 09:00 Alteplase, Recombinant (Cathflo (Activase)) 2 mg MAY REPEAT X1 PRN CATHETER IF CATHETER REMAINS OCCULUDED Last administered on 12/02/18 15:47; Admin Dose 2 MG; Start 11/26/18 at 03:00 Albumin Human 100 ml @ 100 mls/hr DURING DIALYSIS PRN IV HYPOTENSION DURING HD Last administered on 11/30/18 10:56; Admin Dose 100 MLS/HR; Start 11/26/18 at 14:00 Clindamycin HCl/ Dextrose 50 ml @ 50 mls/hr Q8 IVPB Last administered on 12/03/18 05:38; Admin Dose 50 MLS/HR; Start 11/26/18 at 14:00 Diagnostic Test (Pha) (Accu-Chek) 1 ea Q4 XX Last administered on 12/03/18 05:38; Admin Dose 1 EA; Start 11/27/18 at 13:00 Levothyroxine Sodium (Synthroid) 75 mcg BEFORE BREAKFAST NGT Last administered on 12/03/18 06:13; Admin Dose 75 MCG; Start 11/29/18 at 07:00 Midazolam HCl 50 ml @ 1 mls/hr TITRATE IV Last administered on 11/30/18 05:15; Admin Dose 50 MLS/HR; Start 11/29/18 at 09:00 Sodium Chloride 154 meq/Dextrose 1,038.5 ml @ 30 mls/hr Q24H IV Last administered on 12/03/18 06:33; Admin Dose 30 MLS/HR; Start 11/30/18 at 10:00 Collagenase (Santyl) 1 applic DAILY TOP Last administered on 12/03/18 08:27; Admin Dose 1 APPLIC; Start 12/01/18 at 16:30 Amiodarone HCl 900 mg/Dextrose 500 ml @ 0 mls/hr Q0M IV Last administered on 12/02/18 17:21; Admin Dose 33.3 MLS/HR; Start 12/02/18 at 16:00 MARIAN KUMAR Dec 03, 2018 09:40
[2018-12-03] MEDS: PROPOFOL 100 ML IV SCH ×2 (12:00)
--- NOTE | 2018-12-03 13:53 | CONS ---
Assessment/Plan Assessment/Plan Hospital Course 58 yo F with hx of afib, ESRD on peritoneal dialysis, and other comorbidities... who initially presented with ams in the context of hypotension and severe hypoglycemia. Now s/p PEA arrest on 11/24; Targeted temperature therapy was deferred.. She remains protractedly encephalopathic, for which neurology is consulted. The clinical picture suggests an acute toxic-metabolic (?on chronic) encephalopathy. HCT is reassuringly without obvious acute intracranial pathology. CXR + PNA Na 127, phos 6.9 ammonia, TSH, B12 wnl plt 24 P: OK to defer MRI brain for now Cont medical management per primary [place] as able Limit sedating medications where possible PT/OT when able Will follow Consultation Date/Type/Reason Admit Date/Time Nov 21, 2018 at 04:53 Type of Consult Neurology Reason for Consultation ams Requesting Provider: RIKA STOCK Date/Time of Note DATE: 12/03/18 TIME: 13:52 24 HR Interval Summary Free Text/Dictation Continues critical care. No changes in pt condition reported. Remains on levophed gtt. Subjective hx not possible: pt non-verbal, pt critical Exam Vital Signs Vitals Vital Signs Date Temp Pulse Resp B/P (MAP) Pulse Ox O2 O2 Flow FiO2 Time Delivery Rate 12/03/18 82 20 94/71 (79) 100 Mechanical 13:00 Ventilator 12/03/18 98.0 12:00 12/03/18 30 11:20 Intake and Output 12/02/18 12/02/18 12/03/18 1515:00 23:00 07:00 IntakeIntake Total 569.25 ml 1258.6875 ml 833.150 ml OutputOutput Total 200 ml 500 ml 0 ml BalanceBalance 369.25 ml 758.6875 ml 833.150 ml Exam PE: Gen Appearance: No Apparent Distress HEENT: Intubated Cardiovascular: Regular rate Abdomen: Soft Extremities: Dry NE: The patient was awake and alert, though nonverbal d/t ETT. Able to gesture and nod appropriately to yes/no questions. Able to follow simple axial and appe ndicular commands. Cranial nerve examination was limited by mental status. Pupils were equal and reactive to light. There was no afferent pupillary defect. Funduscopic examination was limited. Face was grossly symmetric, w/ present corneal and cough reflexes. Tone was normal. Muscle bulk was severely diminished. I did not see fasciculations. The patient was generally very weak. Coordination and gait testing was limited by mental status. Arm and leg reflexes were within normal limits and symmetric. Alvarez's sign was absent. Plantar responses were flexor. HOLLY FISHER NP Dec 03, 2018 13:53
--- NOTE | 2018-12-03 14:03 | CONS ---
Assessment/Plan Assessment/Plan Hospital Course (Demo Recall) Patient looks comfortable afebrile she is on vent and Levophed at 6 mics per minute. WBC 11.5 platelets 24. Antimicrobials: Clindamycin, Cancidas, meropenem Microbiology: Blood culture on admission grew Klebsiella ESBL, repeat blood cultures negative, left thigh wound culture grew Klebsiella ESBL and Leah albicans Allergy: Zosyn, vancomycin Indwelling: Right upper thigh Davie catheter, left femoral triple-lumen catheter, endotracheal tube, orogastric tube, midline Physical examination: This is a chronically ill-appearing cachectic middle-aged woman who is laying comfortably in bed. Head atraumatic normocephalic. Neck is supple. Chest rise symmetrical. Breath sounds diminished bases. Heart: S1-S2, irreg. Abdomen distended. Bowel sounds hypoactive. Extremities with bilateral edema, cyanotic, multiple ecchymotic areas and bruises, left upper thigh dressing present is Assessment: 1. Severe sepsis with shock 2. Acute hypoxemic respiratory failure secondary to CHF exacerbation/probable pneumonia 3. Klebsiella ESBL bacteremia likely 2 to #4 4. 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 End-stage renal disease, hemodialysis dependent 6. Atrial fibrillation/PPM 7. Unstageable sacral decubitus 8. History of peritoneal dialysis with peritoneal dialysis still in place 9. Ascites status post paracentesis 3 weeks ago 10. Failure to thrive 11. Progressive thrombocytopenia 12. B mastoiditis and acute sinusitis per CT Plan: Remains unchanged, continue antibiotics, vent management per pulmonary Consultation Date/Type/Reason Admit Date/Time Nov 21, 2018 at 04:53 Initial Consult Date Type of Consult id Requesting Provider: RIKA STOCK Date/Time of Note DATE: 12/03/18 TIME: 14:02 Exam/Review of Systems Exam Vitals Vital Signs Date Temp Pulse Resp B/P (MAP) Pulse Ox O2 O2 Flow FiO2 Time Delivery Rate 12/03/18 82 20 94/71 (79) 100 Mechanical 13:00 Ventilator 12/03/18 98.0 12:00 12/03/18 30 11:20 Intake and Output 12/02/18 12/02/18 12/03/18 1515:00 23:00 07:00 IntakeIntake Total 569.25 ml 1258.6875 ml 833.150 ml OutputOutput Total 200 ml 500 ml 0 ml BalanceBalance 369.25 ml 758.6875 ml 833.150 ml Results Result Diagram: 12/03/18 0400 12/03/18 0400 Results 24hrs Laboratory Tests Test 12/02/18 17:33 12/02/18 21:18 12/03/18 01:26 12/03/18 04:00 Bedside Glucose 122 110 120 White Blood Count 11.5 H Red Blood Count 3.48 L Hemoglobin 10.3 L Hematocrit 30.2 L Mean Corpuscular 86.8 Volume Mean Corpuscular 29.6 Hemoglobin Mean Corpuscular 34.1 Hemoglobin Concent Red Cell 17.5 H Distribution Width Platelet Count 24 *L Mean Platelet Volume Immature 0.600 H Granulocytes % Neutrophils % Segmented 78 H Neutrophils % (Manual) Band Neutrophils % 1 (Manual) Lymphocytes % Lymphocytes % 14 L (Manual) Monocytes % Monocytes % 3 (Manual) Eosinophils % Basophils % Basophils % 4 H (Manual) Nucleated Red 0.0 Blood Cells % Immature 0.070 H Granulocytes # Neutrophils # Neutrophils # 9.0 H (Manual) Band Neutrophils # 0.1 Lymphocytes 1.6 (Manual) Lymphocytes # Monocytes # Monocytes # 0.3 (Manual) Eosinophils # Basophils # Basophils # 0.4 H (Manual) Nucleated Red Blood Cells # Platelet Estimate SIG DECREASED Giant Platelets 1 H Poikilocytosis 1+ Anisocytosis 1+ Macrocytosis 1+ Sodium Level 134 L Potassium Level 3.5 Chloride Level 103 Carbon Dioxide 21 Level Anion Gap 10 Blood Urea 48 H Nitrogen Creatinine 1.18 H Est Glomerular 47 L Filtrat Rate mL/min Glucose Level 132 Calcium Level 7.3 L Phosphorus Level 4.0 Magnesium Level 1.7 Test 12/03/18 05:37 12/03/18 08:32 Bedside Glucose 112 98 Medications Medication Current Medications Ondansetron HCl (Zofran Inj) 4 mg Q6H PRN IV NAUSEA AND/OR VOMITING Last administered on 12/01/18at 23:05; Admin Dose 4 MG; Start 11/21/18 at 05:30 Albuterol/ Ipratropium (Duoneb) 3 ml Q2H RESP THERAPY PRN NEB SHORTNESS OF BREATH; Start 11/21/18 at 05:30 Acetaminophen (Tylenol Liquid) 650 mg Q6H PRN PO PAIN LEVEL 1-3 OR FEVER; Start 11/21/18 at 05:30 Folic Acid (Folic Acid) 1 mg DAILY PO Last administered on 12/03/18at 08:27; Admin Dose 1 MG; Start 11/21/18 at 09:00 Meropenem/Sodium Chloride 50 ml @ 100 mls/hr Q12 IVPB Last administered on 12/03/18at 08:27; Admin Dose 100 MLS/HR; Start 11/21/18 at 21:00 Norepinephrine 250 ml @ 1.875 mls/ hr TITRATE IV Last administered on 12/02/18at 21:41; Admin Dose 11.25 MLS/HR; Start 11/21/18 at 19:00 Caspofungin 50 mg/ Sodium Chloride 250 ml @ 250 mls/hr Q24H IVPB Last administered on 12/02/18at 15:53; Admin Dose 250 MLS/HR; Start 11/24/18 at 13:00 Miscellaneous Information 1 ea NOTE XX ; Start 11/23/18 at 13:30 Glucose (Glutose) 15 gm Q15M PRN PO DECREASED GLUCOSE; Start 11/23/18 at 13:30 Glucose (Glutose) 22.5 gm Q15M PRN PO DECREASED GLUCOSE; Start 11/23/18 at 13:30 Dextrose (D50w Syringe) 25 ml Q15M PRN IV DECREASED GLUCOSE Last administered on 11/26/18at 17:41; Admin Dose 25 ML; Start 11/23/18 at 13:30 Dextrose (D50w Syringe) 50 ml Q15M PRN IV DECREASED GLUCOSE Last administered on 11/26/18at 13:03; Admin Dose 50 ML; Start 11/23/18 at 13:30 Glucagon (Glucagen) 1 mg Q15M PRN IM DECREASED GLUCOSE; Start 11/23/18 at 13:30 Glucose (Glutose) 15 gm Q15M PRN BUCCAL DECREASED GLUCOSE; Start 11/23/18 at 13:30 Propofol 100 ml @ 1.59 mls/hr Q12H IV Last administered on 11/28/18at 22:39; Admin Dose 3.18 MLS/HR; Start 11/24/18 at 00:00 Phenylephrine HCl 80 mg/Dextrose 250 ml @ 18.75 mls/ hr TITRATE IV ; Start 11/24/18 at 00:00 Heparin Sodium (Porcine) (Heparin (1000 Units/ml)) 6,300 unit AFTER DIALYSIS CATHETER Last administered on 11/30/18 12:27; Admin Dose 6,300 UNIT; Start 11/24/18 at 17:30 Famotidine (Pepcid) 20 mg DAILY PO Last administered on 12/03/18 08:27; Admin Dose 20 MG; Start 11/26/18 at 09:00 Alteplase, Recombinant (Cathflo (Activase)) 2 mg MAY REPEAT X1 PRN CATHETER IF CATHETER REMAINS OCCULUDED Last administered on 12/02/18 15:47; Admin Dose 2 MG; Start 11/26/18 at 03:00 Albumin Human 100 ml @ 100 mls/hr DURING DIALYSIS PRN IV HYPOTENSION DURING HD Last administered on 11/30/18 10:56; Admin Dose 100 MLS/HR; Start 11/26/18 at 14:00 Clindamycin HCl/ Dextrose 50 ml @ 50 mls/hr Q8 IVPB Last administered on 12/03/18 05:38; Admin Dose 50 MLS/HR; Start 11/26/18 at 14:00 Diagnostic Test (Pha) (Accu-Chek) 1 ea Q4 XX Last administered on 12/03/18 05:38; Admin Dose 1 EA; Start 11/27/18 at 13:00 Levothyroxine Sodium (Synthroid) 75 mcg BEFORE BREAKFAST NGT Last administered on 12/03/18 06:13; Admin Dose 75 MCG; Start 11/29/18 at 07:00 Midazolam HCl 50 ml @ 1 mls/hr TITRATE IV Last administered on 11/30/18 05:15; Admin Dose 50 MLS/HR; Start 11/29/18 at 09:00 Sodium Chloride 154 meq/Dextrose 1,038.5 ml @ 30 mls/hr Q24H IV Last administ ered on 12/03/18 06:33; Admin Dose 30 MLS/HR; Start 11/30/18 at 10:00 Collagenase (Santyl) 1 applic DAILY TOP Last administered on 12/03/18 08:27; Admin Dose 1 APPLIC; Start 12/01/18 at 16:30 Amiodarone HCl (Cordarone) 200 mg BID NGT ; Start 12/03/18 at 21:00 KELSIE ELY NP Dec 03, 2018 14:03
[2018-12-03] MEDS: CASPOFUNGIN 50 MG in SOD CHLORIDE 0.9% 250 ML IVPB SCH (14:51)
--- NOTE | 2018-12-03 15:15 | PN ---
Date/Time of Note Date/Time of Note DATE: 12/03/18 TIME: 15:13 Assessment/Plan VTE Prophylaxis Risk score (from Nsg)>0 risk: 5 Pharmacological prophylaxis: NA/contraindicated Pharm contraindication: renal impairment Lines/Catheters IV Catheter Type (from Nrsg): Mid Line Urinary Cath still in place: No Assessment/Plan Hospital Course 58 yo female with ESRD, cirrhosis, DMII presents with hypoglycemia, leg infection. Suffered cardiac and respiratory arrest, now intubated Cardiac arrest, acute respiratory failure: -Mentation is improving - Continue vasopressors and mechanical ventilation per pulmonary -Anticipate extubation in the coming days Hypoglycemia: No history of diabetes and patient not on any insulin or sulfonylurea or any other diabetic medication - Continue IV dextrose and tube feeds Left lower extremity wound - Antibiotics per ID -Venous study was negative for DVT Paroxysmal A Fib: -Patient back in sinus rhythm, DC amiodarone drip -Resume oral amiodarone ESRD with fluid overload - HD per nephrology Pancytopenia with coagulopathy, thrombocytopenia: Patient had workup here during recent hospitalization. -Thrombocytopenia was thought to be secondary to HIT but may be related to liver disease -Per son, patient did receive platelet transfusion at [facility] -Picture of pancytopenia with macrocytic anemia and coagulopathy does appear consistent with liver disease, await liver ultrasound Hypothyroidism: Continue Synthroid History of pacemaker: No acute issue Ascites secondary to fluid overload and/or liver disease: Status post paracentesis 3 weeks ago with removal of 4.5 L - s/p paracentesis, in addition patient's blood pressure is low Chronic peritoneal dialysis: This is not being used. Not being removed because of the severe thrombocytopenia. This can be addressed at [facility] where she usually gets her care Failure to thrive: Patient is very cachectic -Nutrition consult Prophylaxis: SCDs DC planning: Patient with poor overall prognosis, anticipate extubation in the coming days Result Diagram: 12/03/18 0400 12/03/18 0400 Results 24hrs Laboratory Tests Test 12/02/18 17:33 12/02/18 21:18 12/03/18 01:26 12/03/18 04:00 Bedside Glucose 122 110 120 White Blood Count 11.5 H Red Blood Count 3.48 L Hemoglobin 10.3 L Hematocrit 30.2 L Mean Corpuscular 86.8 Volume Mean Corpuscular 29.6 Hemoglobin Mean Corpuscular 34.1 Hemoglobin Concent Red Cell 17.5 H Distribution Width Platelet Count 24 *L Mean Platelet Volume Immature 0.600 H Granulocytes % Neutrophils % Segmented 78 H Neutrophils % (Manual) Band Neutrophils % 1 (Manual) Lymphocytes % Lymphocytes % 14 L (Manual) Monocytes % Monocytes % 3 (Manual) Eosinophils % Basophils % Basophils % 4 H (Manual) Nucleated Red 0.0 Blood Cells % Immature 0.070 H Granulocytes # Neutrophils # Neutrophils # 9.0 H (Manual) Band Neutrophils # 0.1 Lymphocytes 1.6 (Manual) Lymphocytes # Monocytes # Monocytes # 0.3 (Manual) Eosinophils # Basophils # Basophils # 0.4 H (Manual) Nucleated Red Blood Cells # Platelet Estimate SIG DECREASED Giant Platelets 1 H Poikilocytosis 1+ Anisocytosis 1+ Macrocytosis 1+ Sodium Level 134 L Potassium Level 3.5 Chloride Level 103 Carbon Dioxide 21 Level Anion Gap 10 Blood Urea 48 H Nitrogen Creatinine 1.18 H Est Glomerular 47 L Filtrat Rate mL/min Glucose Level 132 Calcium Level 7.3 L Phosphorus Level 4.0 Magnesium Level 1.7 Test 12/03/18 05:37 12/03/18 08:32 12/03/18 14:10 Bedside Glucose 112 98 86 Subjective 24 Hr Interval Summary Subjective hx not possible: pt non-verbal Exam/Review of Systems Exam Vitals Vital Signs Date Temp Pulse Resp B/P (MAP) Pulse Ox O2 O2 Flow FiO2 Time Delivery Rate 12/03/18 78 20 110/73 100 Mechanical 15:00 (85) Ventilator 12/03/18 98.0 12:00 12/03/18 30 11:20 Intake and Output 12/02/18 12/02/18 12/03/18 1414:59 22:59 06:59 IntakeIntake Total 565.50 ml 1233.825 ml 811.9375 ml OutputOutput Total 200 ml 500 ml 0 ml BalanceBalance 365.50 ml 733.825 ml 811.9375 ml Constitutional: non-verbal ENMT: intubated Respiratory: clear to auscultation Cardiovascular: regular rate and rhythm Gastrointestinal: soft; No distended Musculoskeletal: nl extremities to inspection Results Results 24hrs Laboratory Tests Test 12/02/18 17:33 12/02/18 21:18 12/03/18 01:26 12/03/18 04:00 Bedside Glucose 122 110 120 White Blood Count 11.5 H Red Blood Count 3.48 L Hemoglobin 10.3 L Hematocrit 30.2 L Mean Corpuscular 86.8 Volume Mean Corpuscular 29.6 Hemoglobin Mean Corpuscular 34.1 Hemoglobin Concent Red Cell 17.5 H Distribution Width Platelet Count 24 *L Mean Platelet Volume Immature 0.600 H Granulocytes % Neutrophils % Segmented 78 H Neutrophils % (Manual) Band Neutrophils % 1 (Manual) Lymphocytes % Lymphocytes % 14 L (Manual) Monocytes % Monocytes % 3 (Manual) Eosinophils % Basophils % Basophils % 4 H (Manual) Nucleated Red 0.0 Blood Cells % Immature 0.070 H Granulocytes # Neutrophils # Neutrophils # 9.0 H (Manual) Band Neutrophils # 0.1 Lymphocytes 1.6 (Manual) Lymphocytes # Monocytes # Monocytes # 0.3 (Manual) Eosinophils # Basophils # Basophils # 0.4 H (Manual) Nucleated Red Blood Cells # Platelet Estimate SIG DECREASED Giant Platelets 1 H Poikilocytosis 1+ Anisocytosis 1+ Macrocytosis 1+ Sodium Level 134 L Potassium Level 3.5 Chloride Level 103 Carbon Dioxide 21 Level Anion Gap 10 Blood Urea 48 H Nitrogen Creatinine 1.18 H Est Glomerular 47 L Filtrat Rate mL/min Glucose Level 132 Calcium Level 7.3 L Phosphorus Level 4.0 Magnesium Level 1.7 Test 12/03/18 05:37 12/03/18 08:32 12/03/18 14:10 Bedside Glucose 112 98 86 Medications Medication Current Medications Ondansetron HCl (Zofran Inj) 4 mg Q6H PRN IV NAUSEA AND/OR VOMITING Last administered on 12/01/18at 23:05; Admin Dose 4 MG; Start 11/21/18 at 05:30 Albuterol/ Ipratropium (Duoneb) 3 ml Q2H RESP THERAPY PRN NEB SHORTNESS OF BREATH; Start 11/21/18 at 05:30 Acetaminophen (Tylenol Liquid) 650 mg Q6H PRN PO PAIN LEVEL 1-3 OR FEVER; Start 11/21/18 at 05:30 Folic Acid (Folic Acid) 1 mg DAILY PO Last administered on 12/03/18at 08:27; Admin Dose 1 MG; Start 11/21/18 at 09:00 Meropenem/Sodium Chloride 50 ml @ 100 mls/hr Q12 IVPB Last administered on 12/03/18at 08:27; Admin Dose 100 MLS/HR; Start 11/21/18 at 21:00 Norepinephrine 250 ml @ 1.875 mls/ hr TITRATE IV Last administered on 12/02/18at 21:41; Admin Dose 11.25 MLS/HR; Start 11/21/18 at 19:00 Caspofungin 50 mg/ Sodium Chloride 250 ml @ 250 mls/hr Q24H IVPB Last administ ered on 12/03/18at 14:51; Admin Dose 250 MLS/HR; Start 11/24/18 at 13:00 Miscellaneous Information 1 ea NOTE XX ; Start 11/23/18 at 13:30 Glucose (Glutose) 15 gm Q15M PRN PO DECREASED GLUCOSE; Start 11/23/18 at 13:30 Glucose (Glutose) 22.5 gm Q15M PRN PO DECREASED GLUCOSE; Start 11/23/18 at 13:30 Dextrose (D50w Syringe) 25 ml Q15M PRN IV DECREASED GLUCOSE Last administered on 11/26/18at 17:41; Admin Dose 25 ML; Start 11/23/18 at 13:30 Dextrose (D50w Syringe) 50 ml Q15M PRN IV DECREASED GLUCOSE Last administered on 11/26/18at 13:03; Admin Dose 50 ML; Start 11/23/18 at 13:30 Glucagon (Glucagen) 1 mg Q15M PRN IM DECREASED GLUCOSE; Start 11/23/18 at 13:30 Glucose (Glutose) 15 gm Q15M PRN BUCCAL DECREASED GLUCOSE; Start 11/23/18 at 13:30 Propofol 100 ml @ 1.59 mls/hr Q12H IV Last administered on 11/28/18at 22:39; Admin Dose 3.18 MLS/HR; Start 11/24/18 at 00:00 Phenylephrine HCl 80 mg/Dextrose 250 ml @ 18.75 mls/ hr TITRATE IV ; Start 11/24/18 at 00:00 Heparin Sodium (Porcine) (Heparin (1000 Units/ml)) 6,300 unit AFTER DIALYSIS CATHETER Last administered on 11/30/18at 12:27; Admin Dose 6,300 UNIT; Start 11/24/18 at 17:30 Famotidine (Pepcid) 20 mg DAILY PO Last administered on 12/03/18at 08:27; Admin Dose 20 MG; Start 11/26/18 at 09:00 Alteplase, Recombinant (Cathflo (Activase)) 2 mg MAY REPEAT X1 PRN CATHETER IF CATHETER REMAINS OCCULUDED Last administered on 12/02/18 15:47; Admin Dose 2 MG; Start 11/26/18 at 03:00 Albumin Human 100 ml @ 100 mls/hr DURING DIALYSIS PRN IV HYPOTENSION DURING HD Last administered on 11/30/18 10:56; Admin Dose 100 MLS/HR; Start 11/26/18 at 1 4:00 Clindamycin HCl/ Dextrose 50 ml @ 50 mls/hr Q8 IVPB Last administered on 12/03/18 05:38; Admin Dose 50 MLS/HR; Start 11/26/18 at 14:00 Diagnostic Test (Pha) (Accu-Chek) 1 ea Q4 XX Last administered on 12/03/18 05:38; Admin Dose 1 EA; Start 11/27/18 at 13:00 Levothyroxine Sodium (Synthroid) 75 mcg BEFORE BREAKFAST NGT Last administered on 12/03/18 06:13; Admin Dose 75 MCG; Start 11/29/18 at 07:00 Midazolam HCl 50 ml @ 1 mls/hr TITRATE IV Last administered on 11/30/18 05:15; Admin Dose 50 MLS/HR; Start 11/29/18 at 09:00 Sodium Chloride 154 meq/Dextrose 1,038.5 ml @ 30 mls/hr Q24H IV Last administered on 12/03/18 06:33; Admin Dose 30 MLS/HR; Start 11/30/18 at 10:00 Collagenase (Santyl) 1 applic DAILY TOP Last administered on 12/03/18 08:27; Admin Dose 1 APPLIC; Start 12/01/18 at 16:30 Amiodarone HCl (Cordarone) 200 mg BID NGT ; Start 12/03/18 at 21:00 RIKA STOCK Dec 03, 2018 15:15
[2018-12-03] MEDS: DEXTROSE 50% 50 ML SYRINGE IV PRN (16:34)
[2018-12-03] MEDS: ONDANSETRON 4 MG INJ IV PRN (17:02)
[2018-12-03] MEDS: AMIODARONE 200 MG TAB NGT SCH (20:32)
[2018-12-03] MEDS: NORepinephrine 8MG/250 ML (PMX 250 ML IV SCH (21:29)
[2018-12-04] VITALS (103 sets, daily range): BP systolic 56–143; BP diastolic 39–84; PULSE 63–78; RESP 18–25
[2018-12-04] MEDS: ACCU-CHEK XX SCH ×6 (01:46→20:52)
[2018-12-04] MEDS: CLINDAMYCIN 600 MG/D5W (PMX) 50 ML IVPB SCH ×2 (05:25→13:29)
[2018-12-04] MEDS: LEVOTHYROXINE 75 MCG TAB NGT SCH (06:50)
[2018-12-04] MEDS: COLLAGENASE 5 GM (UD JAR) TOP SCH (09:00)
[2018-12-04] MEDS: BALSAM PERU/CASTOR OIL 60 GM TUBE TOP SCH ×2 (09:00→20:54)
--- NOTE | 2018-12-04 09:13 | PN ---
DATE: 12/04/2018 SUBJECTIVE: The patient remains critically ill on full ventilatory support, on pressor support. The patient is pending hemodialysis today. No other events noted. OBJECTIVE: VITAL SIGNS: Blood pressure is 88/62, respiration 21, pulse 71, temperature 98.6. HEENT: Head is normocephalic. NECK: Supple. HEART: Regular rate. LUNGS: Show diminished breath sounds at the base. ABDOMEN: Soft, nontender to palpation without rebound or guarding. EXTREMITIES: Negative for clubbing, cyanosis. Positive edema, diffuse anasarca. DERMATOLOGIC: No rashes. MUSCULOSKELETAL: No joint effusion. NEUROLOGIC: No change in exam. MEDICATIONS: The patient's medications have been reviewed. LABORATORY DATA: From 12/04 were reviewed. IMAGING STUDIES: Reviewed. ASSESSMENT AND PLAN: 1. End-stage renal disease. The patient is scheduled for dialysis today. We will dialyze for 3 haley rs 3k bath, calcium 2.5. 2. Volume overload. Etiology is multifactorial. Continue ultrafiltration with hemodialysis. The p atient is hemodynamically stable. 3. Septic shock. Etiology is multifactorial secondary to pneumonia bacteremia. The patient remains on pressor support, will continue. Continue broad spectrum antibiotics. Cultures have been reviewe d. Follow up with infectious disease. 4. Anemia. Continue to monitor hemoglobin and hematocrit levels. Will continue Epogen. 5. Hypernatremia, improving. Continue dialysis on a 140 sodium bath. 6. Mineral bone disorder. Monitor calcium and phosphorus levels. 7. Ventilator-dependent respiratory failure. Vent settings have been reviewed. Continue to monitor . 8. Acute encephalopathy, etiology toxic metabolic. 9. Thrombocytopenia with history of ____. Continue to monitor. Transfuse as needed. 10. Ascites. The patient is status post paracentesis. 11. Hypothyroidism. Continue Synthroid. 12. Dysphagia. Continue feeding. 13. Hypomagnesemia. Continue to monitor and replete. 14. Hypoglycemia, improved. 15. Arrhythmia, atrial fibrillation. The patient is on amiodarone, continue. 16. Lower extremity wounds. Continue wound care. 17. Status post cardiopulmonary arrest. Please note, I spent over 30 minutes of critical care time with this patient. Dictated By: SARIKA CRAIG/EZIO Conf#: [id number] DID#: [id number] CC: MANDY BATES MD;*End*
[2018-12-04] MEDS: ALBUMIN HUMAN 25% 100 ML IV PRN (09:19)
--- NOTE | 2018-12-04 09:24 | CONS ---
Assessment/Plan Assessment/Plan Assessment/Plan (Daily) Chest x-ray showing diffuse bilateral pneumonia. Ventilator setting; AC of 20, tidal volume 450, PEEP of 5, 30% FiO2. Patient is currently on Levophed at 15 mics per minute. Assessment and recommendations; 1. Patient admitted with severe bilateral pneumonia without any significant interval radiological improvement. 2. Chronic renal failure, hemodialysis. 3. Severely emaciated state. 4. History of hypothyroidism. 5. Anemia and severe thrombocytopenia. 6. Chronic renal failure, on hemodialysis. 7. History of cardiac arrhythmia, status post pacemaker placement in the past. Patient currently in sinus rhythm. Continue current supportive care. Patient's family to decide about possible tracheostomy and G-tube placement. I did have a very detailed discussion of the patient's as well as son yesterday and the family wants some more time to decide about the procedures. Prognosis remains very poor. 35 minutes of critical care time was spent evaluating the patient. Consultation Date/Type/Reason Admit Date/Time Nov 21, 2018 at 04:53 Initial Consult Date Type of Consult Pulmonary Requesting Provider: RIKA STOCK Date/Time of Note DATE: 12/04/18 TIME: 09:21 24 HR Interval Summary Free Text/Dictation Patient's condition remains critical. Remains awake and alert. Has remained hemodynamically stable. General exam; middle-aged female, appears emaciated, orally intubated, awake and appropriately responsive. Currently in no distress. Exam/Review of Systems Exam Vitals Vital Signs Date Temp Pulse Resp B/P (MAP) Pulse Ox O2 O2 Flow FiO2 Time Delivery Rate 12/04/18 67 09:00 12/04/18 97.9 21 104/66 100 08:00 (79) 12/04/18 Mechanical 07:50 Ventilator T Tube 12/04/18 30 05:20 Intake and Output 12/03/18 12/03/18 12/04/18 1515:00 23:00 07:00 IntakeIntake Total 514.600 ml 834.0125 ml 440.625 ml OutputOutput Total 0 ml 0 ml 0 ml BalanceBalance 514.600 ml 834.0125 ml 440.625 ml Exam H ENT exam; supple neck, no JVD. No lymphadenopathy. Midline trachea. No thyr omegaly. Patient does have carious teeth. Orally intubated. No neck masses. Chest exam; diminished breath sounds bilaterally. S1-S2 audible, no murmurs. Regular rhythm. Abdomen exam; scaphoid, nontender. Nondistended. No organomegaly. Bowel sounds are audible. Extremity exam; no peripheral edema. Patient does have patchy ecchymosis. 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 Results Result Diagram: 12/04/18 0430 12/04/18 0430 Results 24hrs Laboratory Tests Test 12/03/18 14:10 12/03/18 16:27 12/03/18 16:44 12/03/18 17:01 Bedside Glucose 86 57 L 57 L 107 Test 12/03/18 17:33 12/03/18 20:31 12/04/18 01:46 12/04/18 04:30 Bedside Glucose 130 89 85 White Blood Count 8.6 # Red Blood Count 3.23 L Hemoglobin 9.6 L Hematocrit 27.8 L Mean Corpuscular 86.1 Volume Mean Corpuscular 29.7 Hemoglobin Mean Corpuscular 34.5 Hemoglobin Concent Red Cell 18.1 H Distribution Width Platelet Count 37 #L Mean Platelet Volume Immature 0.700 H Granulocytes % Neutrophils % Segmented 61 Neutrophils % (Manual) Band Neutrophils % 7 H (Manual) Lymphocytes % Lymphocytes % 26 (Manual) Reactive 2 H Lymphocytes % (Manual) Monocytes % Monocytes % 2 (Manual) Eosinophils % Eosinophils % 1 (Manual) Basophils % Basophils % 1 (Manual) Nucleated Red 0.0 Blood Cells % Immature 0.060 H Granulocytes # Neutrophils # Neutrophils # 5.3 (Manual) Band Neutrophils # 0.6 Lymphocytes 2.2 (Manual) Lymphocytes # Reactive 0.1 H Lymphocytes # Monocytes # Monocytes # 0.1 L (Manual) Eosinophils # Basophils # Basophils # 0.0 (Manual) Nucleated Red Blood Cells # Platelet Estimate SIG DECREASED Hypochromasia 1+ Poikilocytosis 1+ Anisocytosis 1+ Macrocytosis 1+ Sodium Level 133 L Potassium Level 4.0 Chloride Level 102 Carbon Dioxide 20 L Level Anion Gap 11 Blood Urea 58 H Nitrogen Creatinine 1.49 H Est Glomerular 36 L Filtrat Rate mL/min Glucose Level 76 # Calcium Level 7.1 L Phosphorus Level 4.7 Magnesium Level 1.7 Test 12/04/18 05:25 Bedside Glucose 78 Medications Medication Current Medications Ondansetron HCl (Zofran Inj) 4 mg Q6H PRN IV NAUSEA AND/OR VOMITING Last administered on 12/03/18 17:02; Admin Dose 4 MG; Start 11/21/18 at 05:30 Albuterol/ Ipratropium (Duoneb) 3 ml Q2H RESP THERAPY PRN NEB SHORTNESS OF BREATH; Start 11/21/18 at 05:30 Acetaminophen (Tylenol Liquid) 650 mg Q6H PRN PO PAIN LEVEL 1-3 OR FEVER; Start 11/21/18 at 05:30 Folic Acid (Folic Acid) 1 mg DAILY PO Last administered on 12/03/18at 08:27; Admin Dose 1 MG; Start 11/21/18 at 09:00 Meropenem/Sodium Chloride 50 ml @ 100 mls/hr Q12 IVPB Last administered on 12/03/18 20:32; Admin Dose 100 MLS/HR; Start 11/21/18 at 21:00 Norepinephrine 250 ml @ 1.875 mls/ hr TITRATE IV Last administered on 12/03/18 21:29; Admin Dose 9.375 MLS/HR; Start 11/21/18 at 19:00 Caspofungin 50 mg/ Sodium Chloride 250 ml @ 250 mls/hr Q24H IVPB Last administered on 12/03/18at 14:51; Admin Dose 250 MLS/HR; Start 11/24/18 at 13:00 Miscellaneous Information 1 ea NOTE XX ; Start 11/23/18 at 13:30 Glucose (Glutose) 15 gm Q15M PRN PO DECREASED GLUCOSE; Start 11/23/18 at 13:30 Glucose (Glutose) 22.5 gm Q15M PRN PO DECREASED GLUCOSE; Start 11/23/18 at 13:30 Dextrose (D50w Syringe) 25 ml Q15M PRN IV DECREASED GLUCOSE Last administered on 12/03/18 16:34; Admin Dose 25 ML; Start 11/23/18 at 13:30 Dextrose (D50w Syringe) 50 ml Q15M PRN IV DECREASED GLUCOSE Last administered on 11/26/18at 13:03; Admin Dose 50 ML; Start 11/23/18 at 13:30 Glucagon (Glucagen) 1 mg Q15M PRN IM DECREASED GLUCOSE; Start 11/23/18 at 13:30 Glucose (Glutose) 15 gm Q15M PRN BUCCAL DECREASED GLUCOSE; Start 11/23/18 at 13:30 Propofol 100 ml @ 1.59 mls/hr Q12H IV Last administered on 11/28/18 22:39; Admin Dose 3.18 MLS/HR; Start 11/24/18 at 00:00 Phenylephrine HCl 80 mg/Dextrose 250 ml @ 18.75 mls/ hr TITRATE IV ; Start 11/09 01/27 at 00:00 Heparin Sodium (Porcine) (Heparin (1000 Units/ml)) 6,300 unit AFTER DIALYSIS CATHETER Last administered on 11/30/18 12:27; Admin Dose 6,300 UNIT; Start 11/24/18 at 17:30 Famotidine (Pepcid) 20 mg DAILY PO Last administered on 12/03/18 08:27; Admin Dose 20 MG; Start 11/26/18 at 09:00 Alteplase, Recombinant (Cathflo (Activase)) 2 mg MAY REPEAT X1 PRN CATHETER IF CATHETER REMAINS OCCULUDED Last administered on 12/02/18 15:47; Admin Dose 2 MG; Start 11/26/18 at 03:00 Albumin Human 100 ml @ 100 mls/hr DURING DIALYSIS PRN IV HYPOTENSION DURING HD Last administered on 12/04/18 09:19; Admin Dose 100 MLS/HR; Start 11/26/18 at 14:00 Clindamycin HCl/ Dextrose 50 ml @ 50 mls/hr Q8 IVPB Last administered on 12/04/18 05:25; Admin Dose 50 MLS/HR; Start 11/26/18 at 14:00 Diagnostic Test (Pha) (Accu-Chek) 1 ea Q4 XX Last administered on 12/04/18 05:25; Admin Dose 1 EA; Start 11/27/18 at 13:00 Levothyroxine Sodium (Synthroid) 75 mcg BEFORE BREAKFAST NGT Last administered on 12/04/18 06:50; Admin Dose 75 MCG; Start 11/29/18 at 07:00 Midazolam HCl 50 ml @ 1 mls/hr TITRATE IV Last administered on 11/30/18 05:15; Admin Dose 50 MLS/HR; Start 11/29/18 at 09:00 Sodium Chloride 154 meq/Dextrose 1,038.5 ml @ 30 mls/hr Q24H IV Last administered on 12/03/18 06:33; Admin Dose 30 MLS/HR; Start 11/30/18 at 10:00 Collagenase (Santyl) 1 applic DAILY TOP Last administered on 12/03/18at 08:27; Admin Dose 1 APPLIC; Start 12/01/18 at 16:30 Amiodarone HCl (Cordarone) 200 mg BID NGT Last administered on 12/03/18at 20:32; Admin Dose 200 MG; Start 12/03/18 at 21:00 MARIAN KUMAR Dec 04, 2018 09:24
[2018-12-04] MEDS: SODIUM CHLORIDE 23.4% 154 MEQ in DEXTROSE 10% 1,000 ML IV SCH (10:00)
[2018-12-04] MEDS: FAMOTIDINE 20 MG TAB PO SCH (11:02)
[2018-12-04] MEDS: MEROPENEM 500MG/50 ML (PMX) 50 ML IVPB SCH ×2 (11:02→20:50)
[2018-12-04] MEDS: FOLIC ACID 1 MG TAB PO SCH (11:03)
[2018-12-04] MEDS: AMIODARONE 200 MG TAB NGT SCH ×2 (11:03→20:54)
[2018-12-04] MEDS: PROPOFOL 100 ML IV SCH ×2 (12:00)
[2018-12-04] MEDS: ONDANSETRON 4 MG INJ IV PRN (12:02)
[2018-12-04] MEDS: CASPOFUNGIN 50 MG in SOD CHLORIDE 0.9% 250 ML IVPB SCH (13:31)
--- NOTE | 2018-12-04 13:59 | CONS ---
Assessment/Plan Assessment/Plan Hospital Course (Demo Recall) No acute changes. Remains intubated on Levophed drip, awake and follows commands, no fevers overnight. Chest x-ray this morning revealed no significant change. Persistent findings suggestive of CHF. Antimicrobials: Clindamycin, Cancidas, meropenem Microbiology: Blood culture on admission grew Klebsiella ESBL, repeat blood cultures negative, left thigh wound culture grew Klebsiella ESBL and Leah albicans Allergy: Zosyn, vancomycin Indwelling: Right upper thigh Davie catheter, left femoral triple-lumen catheter, endotracheal tube, orogastric tube, midline Physical examination: This is a chronically ill-appearing cachectic middle-aged woman who is laying comfortably in bed. Head atraumatic normocephalic. Neck is supple. Chest rise symmetrical. Breath sounds diminished bases. Heart: S1-S2, irreg. Abdomen distended. Bowel sounds hypoactive. Extremities with bilateral edema, cyanotic, multiple ecchymotic areas and bruises, left upper thigh dress ing present is Assessment: 1. Sepsis with shock 2. Acute hypoxemic respiratory failure secondary to CHF exacerbation/probable pneumonia 3. Klebsiella ESBL bacteremia likely 2 to #4 4. 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 End-stage renal disease, hemodialysis dependent 6. Atrial fibrillation/PPM 7. Unstageable sacral decubitus 8. History of peritoneal dialysis with peritoneal dialysis still in place 9. Ascites status post paracentesis 3 weeks ago 10. Failure to thrive 11. Progressive thrombocytopenia 12. B mastoiditis and acute sinusitis per CT Plan: Remains unchanged, continue antibiotics, vent management per pulmonary, dc Clindamycin Consultation Date/Type/Reason Admit Date/Time Nov 21, 2018 at 04:53 Initial Consult Date Type of Consult id Requesting Provider: RIKA STOCK Date/Time of Note DATE: 12/04/18 TIME: 13:59 Exam/Review of Systems Exam Vitals Vital Signs Date Temp Pulse Resp B/P (MAP) Pulse Ox O2 O2 Flow FiO2 Time Delivery Rate 12/04/18 68 22 80/58 (65) 100 Mechanical 12:00 Ventilator 12/04/18 97.9 08:00 12/04/18 30 05:20 Intake and Output 12/03/18 12/03/18 12/04/18 1515:00 23:00 07:00 IntakeIntake Total 514.600 ml 834.0125 ml 475.625 ml OutputOutput Total 0 ml 0 ml 0 ml BalanceBalance 514.600 ml 834.0125 ml 475.625 ml Results Result Diagram: 12/04/18 0430 12/04/18 0430 Results 24hrs Laboratory Tests Test 12/03/18 14:10 12/03/18 16:27 12/03/18 16:44 12/03/18 17:01 Bedside Glucose 86 57 L 57 L 107 Test 12/03/18 17:33 12/03/18 20:31 12/04/18 01:46 12/04/18 04:30 Bedside Glucose 130 89 85 White Blood Count 8.6 # Red Blood Count 3.23 L Hemoglobin 9.6 L Hematocrit 27.8 L Mean Corpuscular 86.1 Volume Mean Corpuscular 29.7 Hemoglobin Mean Corpuscular 34.5 Hemoglobin Concent Red Cell 18.1 H Distribution Width Platelet Count 37 #L Mean Platelet Volume Immature 0.700 H Granulocytes % Neutrophils % Segmented 61 Neutrophils % (Manual) Band Neutrophils % 7 H (Manual) Lymphocytes % Lymphocytes % 26 (Manual) Reactive 2 H Lymphocytes % (Manual) Monocytes % Monocytes % 2 (Manual) Eosinophils % Eosinophils % 1 (Manual) Basophils % Basophils % 1 (Manual) Nucleated Red 0.0 Blood Cells % Immature 0.060 H Granulocytes # Neutrophils # Neutrophils # 5.3 (Manual) Band Neutrophils # 0.6 Lymphocytes 2.2 (Manual) Lymphocytes # Reactive 0.1 H Lymphocytes # Monocytes # Monocytes # 0.1 L (Manual) Eosinophils # Basophils # Basophils # 0.0 (Manual) Nucleated Red Blood Cells # Platelet Estimate SIG DECREASED Hypochromasia 1+ Poikilocytosis 1+ Anisocytosis 1+ Macrocytosis 1+ Sodium Level 133 L Potassium Level 4.0 Chloride Level 102 Carbon Dioxide 20 L Level Anion Gap 11 Blood Urea 58 H Nitrogen Creatinine 1.49 H Est Glomerular 36 L Filtrat Rate mL/min Glucose Level 76 # Calcium Level 7.1 L Phosphorus Level 4.7 Magnesium Level 1.7 Test 12/04/18 05:25 12/04/18 13:18 Bedside Glucose 78 89 Medications Medication Current Medications Ondansetron HCl (Zofran Inj) 4 mg Q6H PRN IV NAUSEA AND/OR VOMITING Last administered on 12/04/18 12:02; Admin Dose 4 MG; Start 11/21/18 at 05:30 Albuterol/ Ipratropium (Duoneb) 3 ml Q2H RESP THERAPY PRN NEB SHORTNESS OF BREATH; Start 11/21/18 at 05:30 Acetaminophen (Tylenol Liquid) 650 mg Q6H PRN PO PAIN LEVEL 1-3 OR FEVER; Start 11/21/18 at 05:30 Folic Acid (Folic Acid) 1 mg DAILY PO Last administered on 12/04/18at 11:03; Admin Dose 1 MG; Start 11/21/18 at 09:00 Meropenem/Sodium Chloride 50 ml @ 100 mls/hr Q12 IVPB Last administered on 12/04/18 11:02; Admin Dose 100 MLS/HR; Start 11/21/18 at 21:00 Norepinephrine 250 ml @ 1.875 mls/ hr TITRATE IV Last administered on 12/03/18 21:29; Admin Dose 9.375 MLS/HR; Start 11/21/18 at 19:00 Caspofungin 50 mg/ Sodium Chloride 250 ml @ 250 mls/hr Q24H IVPB Last administered on 12/04/18 13:31; Admin Dose 250 MLS/HR; Start 11/24/18 at 13:00 Miscellaneous Information 1 ea NOTE XX ; Start 11/23/18 at 13:30 Glucose (Glutose) 15 gm Q15M PRN PO DECREASED GLUCOSE; Start 11/23/18 at 13:30 Glucose (Glutose) 22.5 gm Q15M PRN PO DECREASED GLUCOSE; Start 11/23/18 at 13:30 Dextrose (D50w Syringe) 25 ml Q15M PRN IV DECREASED GLUCOSE Last administered on 12/03/18 16:34; Admin Dose 25 ML; Start 11/23/18 at 13:30 Dextrose (D50w Syringe) 50 ml Q15M PRN IV DECREASED GLUCOSE Last administered on 11/26/18 13:03; Admin Dose 50 ML; Start 11/23/18 at 13:30 Glucagon (Glucagen) 1 mg Q15M PRN IM DECREASED GLUCOSE; Start 11/23/18 at 13:30 Glucose (Glutose) 15 gm Q15M PRN BUCCAL DECREASED GLUCOSE; Start 11/23/18 at 13:30 Propofol 100 ml @ 1.59 mls/hr Q12H IV Last administered on 11/28/18 22:39; Admin Dose 3.18 MLS/HR; Start 11/24/18 at 00:00 Phenylephrine HCl 80 mg/Dextrose 250 ml @ 18.75 mls/ hr TITRATE IV ; Start 11/24/18 at 00:00 Famotidine (Pepcid) 20 mg DAILY PO Last administered on 12/04/18 11:02; Admin Dose 20 MG; Start 11/26/18 at 09:00 Alteplase, Recombinant (Cathflo (Activase)) 2 mg MAY REPEAT X1 PRN CATHETER IF CATHETER REMAINS OCCULUDED Last administered on 12/02/18 15:47; Admin Dose 2 MG; Start 11/26/18 at 03:00 Albumin Human 100 ml @ 100 mls/hr DURING DIALYSIS PRN IV HYPOTENSION DURING HD Last administered on 12/04/18 09:19; Admin Dose 100 MLS/HR; Start 11/26/18 at 14:00 Clindamycin HCl/ Dextrose 50 ml @ 50 mls/hr Q8 IVPB Last administered on 13:29; Admin Dose 50 MLS/HR; Start 11/26/18 at 14:00 Diagnostic Test (Pha) (Accu-Chek) 1 ea Q4 XX Last administered on 12/04/18 13:21; Admin Dose 1 EA; Start 11/27/18 at 13:00 Levothyroxine Sodium (Synthroid) 75 mcg BEFORE BREAKFAST NGT Last administered on 12/04/18 06:50; Admin Dose 75 MCG; Start 11/29/18 at 07:00 Midazolam HCl 50 ml @ 1 mls/hr TITRATE IV Last administered on 11/30/18 05:15; Admin Dose 50 MLS/HR; Start 11/29/18 at 09:00 Sodium Chloride 154 meq/Dextrose 1,038.5 ml @ 30 mls/hr Q24H IV Last administered on 12/04/18 10:00; Admin Dose 30 MLS/HR; Start 11/30/18 at 10:00 Collagenase (Santyl) 1 applic DAILY TOP Last administered on 12/04/18 09:00; Admin Dose 1 APPLIC; Start 12/01/18 at 16:30 Amiodarone HCl (Cordarone) 200 mg BID NGT Last administered on 12/04/18at 11:03; Admin Dose 200 MG; Start 12/03/18 at 21:00 KELSIE ELY NP Dec 04, 2018 13:59
--- NOTE | 2018-12-04 14:37 | CONS ---
Assessment/Plan Assessment/Plan Hospital Course 58 yo F with hx of afib, ESRD on peritoneal dialysis, and other comorbidities... who initially presented with ams in the context of hypotension and severe hypoglycemia. Now s/p PEA arrest on 11/24; Targeted temperature therapy was deferred.. She remains protractedly encephalopathic, for which neurology is consulted. The clinical picture suggests an acute toxic-metabolic (?on chronic) encephalopathy. HCT is reassuringly without obvious acute intracranial pathology. CXR + PNA Na 127, phos 6.9 ammonia, TSH, B12 wnl plt 24 P: OK to defer MRI brain for now Cont medical management per primary [place] as able Cont to limit sedating medications where possible PT/OT when able Will follow Consultation Date/Type/Reason Admit Date/Time Nov 21, 2018 at 04:53 Type of Consult Neurology Reason for Consultation ams Requesting Provider: RIKA STOCK Date/Time of Note DATE: 12/04/18 TIME: 14:37 24 HR Interval Summary Free Text/Dictation Continues critical care. No changes in pt condition reported. Levophed decreased today. Subjective hx not possible: pt non-verbal, pt critical Exam Vital Signs Vitals Vital Signs Date Temp Pulse Resp B/P (MAP) Pulse Ox O2 O2 Flow FiO2 Time Delivery Rate 12/04/18 68 12:00 12/04/18 22 80/58 (65) 100 Mechanical 12:00 Ventilator 12/04/18 97.9 08:00 12/04/18 30 05:20 Intake and Output 12/03/18 12/03/18 12/04/18 1515:00 23:00 07:00 IntakeIntake Total 514.600 ml 834.0125 ml 475.625 ml OutputOutput Total 0 ml 0 ml 0 ml BalanceBalance 514.600 ml 834.0125 ml 475.625 ml Exam PE: Gen Appearance: No Apparent Distress HEENT: Intubated Cardiovascular: Regular rate Abdomen: Soft Extremities: Dry NE: The patient was asleep though arousable to voice. Nonverbal d/t ETT. Able to gesture and nod appropriately to yes/no questions. Able to follow simple axial and appendicular commands. Cranial nerve examination was limited by mental status. Pupils were equal and reactive to light. There was no afferent pupillary defect. Funduscopic examination was limited. Face was grossly symmetric, w/ present corneal and cough reflexes. Tone was normal. Muscle bulk was severely diminished. I did not see fasciculations. The patient was generally very weak. Coordination and gait testing was limited by mental status. Arm and leg reflexes were within normal limits and symmetric. Alvarez's sign was absent. Plantar responses were flexor. HOLLY FISHER NP Dec 04, 2018 14:37
--- NOTE | 2018-12-04 15:41 | PN ---
Date/Time of Note Date/Time of Note DATE: 12/04/18 TIME: 15:40 Assessment/Plan VTE Prophylaxis Risk score (from Nsg)>0 risk: 9 Pharmacological prophylaxis: NA/contraindicated Pharm contraindication: renal impairment Lines/Catheters IV Catheter Type (from Nrsg): Mid Line Urinary Cath still in place: No Assessment/Plan Hospital Course 58 yo female with ESRD, cirrhosis, DMII presents with hypoglycemia, leg infection. Suffered cardiac and respiratory arrest, now intubated Cardiac arrest, acute respiratory failure: -Mentation is improving - Continue vasopressors and mechanical ventilation per pulmonary -Anticipate extubation in the coming days Hypoglycemia: No history of diabetes and patient not on any insulin or sulfonylurea or any other diabetic medication - Continue IV dextrose and tube feeds Left lower extremity wound - Antibiotics per ID -Venous study was negative for DVT Paroxysmal A Fib: -Patient back in sinus rhythm, DC amiodarone drip -Resume oral amiodarone ESRD with fluid overload - HD per nephrology Pancytopenia with coagulopathy, thrombocytopenia: Patient had workup here during recent hospitalization. -Thrombocytopenia was thought to be secondary to HIT but may be related to liver disease -Per son, patient did receive platelet transfusion at [facility] -Picture of pancytopenia with macrocytic anemia and coagulopathy does appear consistent with liver disease, await liver ultrasound Hypothyroidism: Continue Synthroid History of pacemaker: No acute issue Ascites secondary to fluid overload and/or liver disease: Status post paracentesis 3 weeks ago with removal of 4.5 L - s/p paracentesis, in addition patient's blood pressure is low Chronic peritoneal dialysis: This is not being used. Not being removed because of the severe thrombocytopenia. This can be addressed at [facility] where she usually gets her care Failure to thrive: Patient is very cachectic -Nutrition consult Prophylaxis: SCDs DC planning: Patient with poor overall prognosis, anticipate extubation in the coming days Result Diagram: 12/04/18 0430 12/04/18 0430 Results 24hrs Laboratory Tests Test 12/03/18 16:27 12/03/18 16:44 12/03/18 17:01 12/03/18 17:33 Bedside Glucose 57 L 57 L 107 130 Test 12/03/18 20:31 12/04/18 01:46 12/04/18 04:30 12/04/18 05:25 Bedside Glucose 89 85 78 White Blood Count 8.6 # Red Blood Count 3.23 L Hemoglobin 9.6 L Hematocrit 27.8 L Mean Corpuscular 86.1 Volume Mean Corpuscular 29.7 Hemoglobin Mean Corpuscular 34.5 Hemoglobin Concent Red Cell 18.1 H Distribution Width Platelet Count 37 #L Mean Platelet Volume Immature 0.700 H Granulocytes % Neutrophils % Segmented 61 Neutrophils % (Manual) Band Neutrophils % 7 H (Manual) Lymphocytes % Lymphocytes % 26 (Manual) Reactive 2 H Lymphocytes % (Manual) Monocytes % Monocytes % 2 (Manual) Eosinophils % Eosinophils % 1 (Manual) Basophils % Basophils % 1 (Manual) Nucleated Red 0.0 Blood Cells % Immature 0.060 H Granulocytes # Neutrophils # Neutrophils # 5.3 (Manual) Band Neutrophils # 0.6 Lymphocytes 2.2 (Manual) Lymphocytes # Reactive 0.1 H Lymphocytes # Monocytes # Monocytes # 0.1 L (Manual) Eosinophils # Basophils # Basophils # 0.0 (Manual) Nucleated Red Blood Cells # Platelet Estimate SIG DECREASED Hypochromasia 1+ Poikilocytosis 1+ Anisocytosis 1+ Macrocytosis 1+ Sodium Level 133 L Potassium Level 4.0 Chloride Level 102 Carbon Dioxide 20 L Level Anion Gap 11 Blood Urea 58 H Nitrogen Creatinine 1.49 H Est Glomerular 36 L Filtrat Rate mL/min Glucose Level 76 # Calcium Level 7.1 L Phosphorus Level 4.7 Magnesium Level 1.7 Test 12/04/18 13:18 Bedside Glucose 89 Subjective 24 Hr Interval Summary Subjective hx not possible: pt non-verbal Exam/Review of Systems Exam Vitals Vital Signs Date Temp Pulse Resp B/P (MAP) Pulse Ox O2 O2 Flow FiO2 Time Delivery Rate 12/04/18 70 20 91/57 (68) 100 14:45 12/04/18 Mechanical 14:00 Ventilator 12/04/18 97.9 08:00 12/04/18 30 05:20 Intake and Output 12/03/18 12/03/18 12/04/18 1515:00 23:00 07:00 IntakeIntake Total 514.600 ml 834.0125 ml 475.625 ml OutputOutput Total 0 ml 0 ml 0 ml BalanceBalance 514.600 ml 834.0125 ml 475.625 ml Constitutional: non-verbal ENMT: intubated Respiratory: clear to auscultation Cardiovascular: regular rate and rhythm Gastrointestinal: soft; No distended Musculoskeletal: nl extremities to inspection Results Results 24hrs Laboratory Tests Test 12/03/18 16:27 12/03/18 16:44 12/03/18 17:01 12/03/18 17:33 Bedside Glucose 57 L 57 L 107 130 Test 12/03/18 20:31 12/04/18 01:46 12/04/18 04:30 12/04/18 05:25 Bedside Glucose 89 85 78 White Blood Count 8.6 # Red Blood Count 3.23 L Hemoglobin 9.6 L Hematocrit 27.8 L Mean Corpuscular 86.1 Volume Mean Corpuscular 29.7 Hemoglobin Mean Corpuscular 34.5 Hemoglobin Concent Red Cell 18.1 H Distribution Width Platelet Count 37 #L Mean Platelet Volume Immature 0.700 H Granulocytes % Neutrophils % Segmented 61 Neutrophils % (Manual) Band Neutrophils % 7 H (Manual) Lymphocytes % Lymphocytes % 26 (Manual) Reactive 2 H Lymphocytes % (Manual) Monocytes % Monocytes % 2 (Manual) Eosinophils % Eosinophils % 1 (Manual) Basophils % Basophils % 1 (Manual) Nucleated Red 0.0 Blood Cells % Immature 0.060 H Granulocytes # Neutrophils # Neutrophils # 5.3 (Manual) Band Neutrophils # 0.6 Lymphocytes 2.2 (Manual) Lymphocytes # Reactive 0.1 H Lymphocytes # Monocytes # Monocytes # 0.1 L (Manual) Eosinophils # Basophils # Basophils # 0.0 (Manual) Nucleated Red Blood Cells # Platelet Estimate SIG DECREASED Hypochromasia 1+ Poikilocytosis 1+ Anisocytosis 1+ Macrocytosis 1+ Sodium Level 133 L Potassium Level 4.0 Chloride Level 102 Carbon Dioxide 20 L Level Anion Gap 11 Blood Urea 58 H Nitrogen Creatinine 1.49 H Est Glomerular 36 L Filtrat Rate mL/min Glucose Level 76 # Calcium Level 7.1 L Phosphorus Level 4.7 Magnesium Level 1.7 Test 12/04/18 13:18 Bedside Glucose 89 Medications Medication Current Medications Ondansetron HCl (Zofran Inj) 4 mg Q6H PRN IV NAUSEA AND/OR VOMITING Last administered on 12/04/18at 12:02; Admin Dose 4 MG; Start 11/21/18 at 05:30 Albuterol/ Ipratropium (Duoneb) 3 ml Q2H RESP THERAPY PRN NEB SHORTNESS OF BREATH; Start 11/21/18 at 05:30 Acetaminophen (Tylenol Liquid) 650 mg Q6H PRN PO PAIN LEVEL 1-3 OR FEVER; Start 11/21/18 at 05:30 Folic Acid (Folic Acid) 1 mg DAILY PO Last administered on 12/04/18at 11:03; Admin Dose 1 MG; Start 11/21/18 at 09:00 Meropenem/Sodium Chloride 50 ml @ 100 mls/hr Q12 IVPB Last administered on 12/04/18at 11:02; Admin Dose 100 MLS/HR; Start 11/21/18 at 21:00 Norepinephrine 250 ml @ 1.875 mls/ hr TITRATE IV Last administered on 12/03/18 21:29; Admin Dose 9.375 MLS/HR; Start 11/21/18 at 19:00 Caspofungin 50 mg/ Sodium Chloride 250 ml @ 250 mls/hr Q24H IVPB Last administered on 12/04/18at 13:31; Admin Dose 250 MLS/HR; Start 11/24/18 at 13:00 Miscellaneous Information 1 ea NOTE XX ; Start 11/23/18 at 13:30 Glucose (Glutose) 15 gm Q15M PRN PO DECREASED GLUCOSE; Start 11/23/18 at 13:30 Glucose (Glutose) 22.5 gm Q15M PRN PO DECREASED GLUCOSE; Start 11/23/18 at 13:30 Dextrose (D50w Syringe) 25 ml Q15M PRN IV DECREASED GLUCOSE Last administered on 12/03/18at 16:34; Admin Dose 25 ML; Start 11/23/18 at 13:30 Dextrose (D50w Syringe) 50 ml Q15M PRN IV DECREASED GLUCOSE Last administered on 11/26/18at 13:03; Admin Dose 50 ML; Start 11/23/18 at 13:30 Glucagon (Glucagen) 1 mg Q15M PRN IM DECREASED GLUCOSE; Start 11/23/18 at 13:30 Glucose (Glutose) 15 gm Q15M PRN BUCCAL DECREASED GLUCOSE; Start 11/23/18 at 13:30 Propofol 100 ml @ 1.59 mls/hr Q12H IV Last administered on 11/28/18at 22:39; Ad min Dose 3.18 MLS/HR; Start 11/24/18 at 00:00 Phenylephrine HCl 80 mg/Dextrose 250 ml @ 18.75 mls/ hr TITRATE IV ; Start 11/24/18 at 00:00 Famotidine (Pepcid) 20 mg DAILY PO Last administered on 12/04/18 11:02; Admin Dose 20 MG; Start 11/26/18 at 09:00 Alteplase, Recombinant (Cathflo (Activase)) 2 mg MAY REPEAT X1 PRN CATHETER IF CATHETER REMAINS OCCULUDED Last administered on 12/02/18 15:47; Admin Dose 2 MG; Start 11/26/18 at 03:00 Albumin Human 100 ml @ 100 mls/hr DURING DIALYSIS PRN IV HYPOTENSION DURING HD Last administered on 12/04/18 09:19; Admin Dose 100 MLS/HR; Start 11/26/18 at 14:00 Diagnostic Test (Pha) (Accu-Chek) 1 ea Q4 XX Last administered on 12/04/18 13:21; Admin Dose 1 EA; Start 11/27/18 at 13:00 Levothyroxine Sodium (Synthroid) 75 mcg BEFORE BREAKFAST NGT Last administered on 12/04/18 06:50; Admin Dose 75 MCG; Start 11/29/18 at 07:00 Midazolam HCl 50 ml @ 1 mls/hr TITRATE IV Last administered on 11/30/18 05:15; Admin Dose 50 MLS/HR; Start 11/29/18 at 09:00 Sodium Chloride 154 meq/Dextrose 1,038.5 ml @ 30 mls/hr Q24H IV Last administered on 12/04/18 10:00; Admin Dose 30 MLS/HR; Start 11/30/18 at 10:00 Collagenase (Santyl) 1 applic DAILY TOP Last administered on 12/04/18 09:00; Admin Dose 1 APPLIC; Start 12/01/18 at 16:30 Amiodarone HCl (Cordarone) 200 mg BID NGT Last administered on 12/04/18 11:03; Admin Dose 200 MG; Start 12/03/18 at 21:00 RIKA STOCK Dec 04, 2018 15:41
[2018-12-05] VITALS (104 sets, daily range): BP systolic 71–151; BP diastolic 55–80; PULSE 58–73; RESP 18–24
[2018-12-05] MEDS: ACCU-CHEK XX SCH ×6 (01:00→21:07)
[2018-12-05] MEDS: DEXTROSE 50% 50 ML SYRINGE IV PRN (05:49)
[2018-12-05] MEDS: LEVOTHYROXINE 75 MCG TAB NGT SCH (07:00)
--- NOTE | 2018-12-05 08:40 | CONS ---
Assessment/Plan Assessment/Plan Hospital Course 58 yo F with hx of afib, ESRD on peritoneal dialysis, and other comorbidities... who initially presented with ams in the context of hypotension and severe hypoglycemia. Now s/p PEA arrest on 11/24; Targeted temperature therapy was deferred.. She remains protractedly encephalopathic, for which neurology is consulted. The clinical picture suggests an acute toxic-metabolic (?on chronic) encephalopathy. HCT is reassuringly without obvious acute intracranial pathology. CXR + PNA Na 127, phos 6.9 ammonia, TSH, B12 wnl plt 24 P: OK to defer MRI brain for now Cont medical management per primary [place] as able Cont to limit sedating medications where possible PT/OT when able Will follow Consultation Date/Type/Reason Admit Date/Time Nov 21, 2018 at 04:53 Type of Consult Neurology Reason for Consultation ams Requesting Provider: RIKA STOCK Date/Time of Note DATE: 12/05/18 TIME: 08:40 24 HR Interval Summary Free Text/Dictation Continues critical care. On levophed gtt. No changes in pt condition reported. Subjective hx not possible: pt non-verbal Exam Vital Signs Vitals Vital Signs Date Temp Pulse Resp B/P (MAP) Pulse Ox O2 O2 Flow FiO2 Time Delivery Rate 12/05/18 62 20 142/64 98 Mechanical 06:00 (90) Ventilator 12/05/18 30 05:32 12/05/18 97.8 04:00 Intake and Output 12/04/18 12/04/18 12/05/18 1515:00 23:00 07:00 IntakeIntake Total 765 ml 280 ml 245 ml OutputOutput Total 2500 ml 0 ml 0 ml BalanceBalance -1735 ml 280 ml 245 ml Exam PE: Gen Appearance: No Apparent Distress HEENT: Intubated Cardiovascular: Regular rate Abdomen: Soft Extremities: Dry NE: The patient was awake and alert. Nonverbal d/t ETT. Able to gesture and nod appropriately to yes/no questions. Able to follow simple axial and appendicular commands. Cranial nerve examination was limited by mental status. Pupils were equal and reactive to light. There was no afferent pupillary defect. Funduscopic exami nation was limited. Face was grossly symmetric, w/ present corneal and cough reflexes. Tone was normal. Muscle bulk was severely diminished. I did not see fasciculations. The patient was generally very weak. Coordination and gait testing was limited by mental status. Arm and leg reflexes were within normal limits and symmetric. Alvarez's sign was absent. Plantar responses were flexor. HOLLY FISHER NP Dec 05, 2018 08:40
--- NOTE | 2018-12-05 08:47 | PN ---
DATE: 12/05/2018 SUBJECTIVE: The patient remains critically ill. The patient is on pressor support. Had hemodialysi s yesterday, tolerated adequately with 1.2 liters removed. No other events noted. OBJECTIVE: VITAL SIGNS: Blood pressure is 142/64, respiration 20, pulse 62, temperature 98.6. HEENT: Head is normocephalic. NECK: Supple. HEART: Regular rate. LUNGS: Show diminished breath sounds at the base. ABDOMEN: Soft, nontender to palpation without rebound or guarding. EXTREMITIES: Negative for clubbing, cyanosis. Positive edema, diffuse anasarca. DERMATOLOGIC: No rashes. MUSCULOSKELETAL: No joint effusion. NEUROLOGIC: No change in exam. MEDICATIONS: The patient's medications have been reviewed. LABORATORY DATA: Has been reviewed. IMAGING STUDIES: Have been reviewed. ASSESSMENT AND PLAN: 1. End-stage renal disease. The patient had hemodialysis yesterday, tolerated it well. Plan for di alysis again tomorrow. 2. Volume overload. Etiology is multifactorial. We will continue ultrafiltration with hemodialysis . 3. Septic shock. Etiology us secondary to pneumonia. Continue pressor support. Continue antibiotic therapy. Blood cultures have been reviewed. 4. Anemia. Monitor hemoglobin and hematocrit levels. Will give Epogen as needed. 5. Mineral bone disorder, monitor calcium and phosphorus levels. 6. Hyponatremia, resolved. 7. Ventilator-dependent respiratory failure. Vent settings and ABG has been reviewed. 8. Acute encephalopathy, etiology is toxic metabolic. 9. Thrombocytopenia with history of . Continue to monitor. 10. Ascites, status post paracentesis. 11. Hypothyroidism. Continue Synthroid. 12. Dysphagia. Continue tube feeding. 13. Hypomagnesemia. Continue to monitor and replete. 14. Arrhythmia. Continue amiodarone. 15. Hyperglycemia. Continue dextrose drip. 16. Lower extremity wounds. 17. Status post cardiopulmonary arrest. Dictated By: SARIKA JOINER DO NR/NTS Conf#: [id number] DID#: [id number] CC: MANDY BATES MD; LORRAINE JOHNSON MD; RIKA STOCK MD;*EndCC*
[2018-12-05] MEDS: BALSAM PERU/CASTOR OIL 60 GM TUBE TOP SCH ×2 (09:00→21:09)
--- NOTE | 2018-12-05 09:40 | CONS ---
Assessment/Plan Assessment/Plan Assessment/Plan (Daily) acute encephalopathy possible multiple causes including acute hypoxic respiratory failure hypoglycemia dementia and delirium currently being worked up by Dr. Mata hypoglycemia left lower extremity wound end-stage renal disease pancytopenia ascites status post pacemaker hypertension malnutrition failure to thrive Long discussion with the patient's son once again concerning patient's CODE STATUS and overall prognosis. He was unaware of the fact that if patient requires tracheostomy she would eventually need to go to a subacute unit. It was his impression that she would be decannulated if she required tracheostomy in a relatively short period of time. I have explained to him otherwise that this may not be the case and she may have an extremely long protracted post discharge course. I did ask him once again to consider her wishes if she knew that she would require admission to a long-term long-term facility. Consultation Date/Type/Reason Admit Date/Time Nov 21, 2018 at 04:53 Initial Consult Date Requesting Provider: RIKA MATA Date/Time of Note DATE: 12/05/18 TIME: 09:37 Exam/Review of Systems Exam Vitals Vital Signs Date Temp Pulse Resp B/P (MAP) Pulse Ox O2 O2 Flow FiO2 Time Delivery Rate 12/05/18 62 20 142/64 98 Mechanical 06:00 (90) Ventilator 12/05/18 30 05:32 12/05/18 97.8 04:00 Intake and Output 12/04/18 12/04/18 12/05/18 1515:00 23:00 07:00 IntakeIntake Total 765 ml 280 ml 245 ml OutputOutput Total 2500 ml 0 ml 0 ml BalanceBalance -1735 ml 280 ml 245 ml Respiratory: congested cough, crackles/rales, diminished breath sounds Cardiovascular: regular rate and rhythm, nl pulses; No bruits, No diastolic murmur, No edema, No gallop, No irregular rhythm, No jugular venous distention (JVD), No murmurs/extra sounds, No rub, No systolic murmur, No S3, No S4, No other Neurological: other (Tracks me follows simple commands) Results Result Diagram: 12/05/18 0537 12/05/18 0537 Results 24hrs Laboratory Tests Test 12/04/18 13:18 12/04/18 18:06 12/04/18 20:52 12/05/18 01:06 Bedside Glucose 89 87 93 100 Test 12/05/18 01:36 12/05/18 05:37 12/05/18 05:45 12/05/18 06:08 Bedside Glucose 88 65 L 179 White Blood Count 5.7 # Red Blood Count 3.61 L Hemoglobin 10.8 L Hematocrit 31.2 L Mean Corpuscular 86.4 Volume Mean Corpuscular 29.9 Hemoglobin Mean Corpuscular 34.6 Hemoglobin Concent Red Cell 18.7 H Distribution Width Platelet Count 46 #L Mean Platelet Volume Immature 0.900 H Granulocytes % Neutrophils % 67.6 Lymphocytes % 23.6 Monocytes % 6.8 Eosinophils % 0.4 Basophils % 0.7 Nucleated Red Blood 0.0 Cells % Immature 0.050 H Granulocytes # Neutrophils # 3.9 Lymphocytes # 1.4 Monocytes # 0.4 Eosinophils # 0.0 Basophils # 0.0 Nucleated Red Blood 0.0 Cells # Sodium Level 139 Potassium Level 3.5 Chloride Level 104 Carbon Dioxide Level 22 Anion Gap 13 Blood Urea Nitrogen 42 #H Creatinine 1.25 H Est Glomerular 44 L Filtrat Rate mL/min Glucose Level 78 Calcium Level 8.0 L Phosphorus Level 4.3 Magnesium Level 1.8 Medications Medication Current Medications Ondansetron HCl (Zofran Inj) 4 mg Q6H PRN IV NAUSEA AND/OR VOMITING Last administered on 12/04/18at 12:02; Admin Dose 4 MG; Start 11/21/18 at 05:30 Albuterol/ Ipratropium (Duoneb) 3 ml Q2H RESP THERAPY PRN NEB SHORTNESS OF BREATH; Start 11/21/18 at 05:30 Acetaminophen (Tylenol Liquid) 650 mg Q6H PRN PO PAIN LEVEL 1-3 OR FEVER; Start 11/21/18 at 05:30 Folic Acid (Folic Acid) 1 mg DAILY PO Last administered on 12/04/18at 11:03; Admin Dose 1 MG; Start 11/21/18 at 09:00 Meropenem/Sodium Chloride 50 ml @ 100 mls/hr Q12 IVPB Last administered on 12/04/18at 20:50; Admin Dose 100 MLS/HR; Start 11/21/18 at 21:00 Norepinephrine 250 ml @ 1.875 mls/ hr TITRATE IV Last administered on 12/03/18at 21:29; Admin Dose 9.375 MLS/HR; Start 11/21/18 at 19:00 Caspofungin 50 mg/ Sodium Chloride 250 ml @ 250 mls/hr Q24H IVPB Last administ ered on 12/04/18at 13:31; Admin Dose 250 MLS/HR; Start 11/24/18 at 13:00 Miscellaneous Information 1 ea NOTE XX ; Start 11/23/18 at 13:30 Glucose (Glutose) 15 gm Q15M PRN PO DECREASED GLUCOSE; Start 11/23/18 at 13:30 Glucose (Glutose) 22.5 gm Q15M PRN PO DECREASED GLUCOSE; Start 11/23/18 at 13:30 Dextrose (D50w Syringe) 25 ml Q15M PRN IV DECREASED GLUCOSE Last administered on 12/05/18at 05:49; Admin Dose 25 ML; Start 11/23/18 at 13:30 Dextrose (D50w Syringe) 50 ml Q15M PRN IV DECREASED GLUCOSE Last administered on 11/26/18at 13:03; Admin Dose 50 ML; Start 11/23/18 at 13:30 Glucagon (Glucagen) 1 mg Q15M PRN IM DECREASED GLUCOSE; Start 11/23/18 at 13:30 Glucose (Glutose) 15 gm Q15M PRN BUCCAL DECREASED GLUCOSE; Start 11/23/18 at 13:30 Propofol 100 ml @ 1.59 mls/hr Q12H IV Last administered on 11/28/18at 22:39; Admin Dose 3.18 MLS/HR; Start 11/24/18 at 00:00 Phenylephrine HCl 80 mg/Dextrose 250 ml @ 18.75 mls/ hr TITRATE IV ; Start 11/24/18 at 00:00 Famotidine (Pepcid) 20 mg DAILY PO Last administered on 12/04/18at 11:02; Admin Dose 20 MG; Start 11/26/18 at 09:00 Alteplase, Recombinant (Cathflo (Activase)) 2 mg MAY REPEAT X1 PRN CATHETER IF CATHETER REMAINS OCCULUDED Last administered on 12/02/18at 15:47; Admin Dose 2 MG; Start 11/26/18 at 03:00 Albumin Human 100 ml @ 100 mls/hr DURING DIALYSIS PRN IV HYPOTENSION DURING HD Last administered on 12/04/18at 09:19; Admin Dose 100 MLS/HR; Start 11/26/18 at 14:00 Diagnostic Test (Pha) (Accu-Chek) 1 ea Q4 XX Last administered on 12/05/18 05:55; Admin Dose 1 EA; Start 11/27/18 at 13:00 Levothyroxine Sodium (Synthroid) 75 mcg BEFORE BREAKFAST NGT Last administered on 12/05/18 07:00; Admin Dose 75 MCG; Start 11/29/18 at 07:00 Midazolam HCl 50 ml @ 1 mls/hr TITRATE IV Last administered on 11/30/18 05:15; Admin Dose 50 MLS/HR; Start 11/29/18 at 09:00 Sodium Chloride 154 meq/Dextrose 1,038.5 ml @ 30 mls/hr Q24H IV Last a dministered on 12/04/18 10:00; Admin Dose 30 MLS/HR; Start 11/30/18 at 10:00 Collagenase (Santyl) 1 applic DAILY TOP Last administered on 12/04/18 09:00; Admin Dose 1 APPLIC; Start 12/01/18 at 16:30 Amiodarone HCl (Cordarone) 200 mg BID NGT Last administered on 12/04/18 20:54; Admin Dose 200 MG; Start 12/03/18 at 21:00 JULIEN SALINAS Dec 05, 2018 09:40
--- NOTE | 2018-12-05 09:44 | CONS ---
Assessment/Plan Assessment/Plan Hospital Course (Demo Recall) ID PROGRESS NOTE CURRENT ABX: DAY # => Merrem + CANCIDAs s/p Clinda S/P DAPTO s/p Zyvox DC'd 12/05/18 0537 12/05/18 0537 HPI/HOSPITAL COURSE/24H INTERVAL SUMMARY * Lethargic, awakens, extremely frail w/generalized weakness * Acute hypoxic respiratory distress -- orally intubated and Vented, sternal retractions, cachexia * Prior intermittent hypotensive readings, no fevers * INVASIVES: Right upper thigh Davie catheter, left femoral triple-lumen catheter, endotracheal tube, orogastric tube, midline DIAGNOSTIC IMAGING * 12/05/18 CXR Stable appearance of the chest including findings suggestive of CHF.Lines and tubes are stable. * 11/21/18 CXR: Changes are again seen suggesting pulmonary congestion/edema with small to moderate effusions and atelectasis or other consolidation. MICRO/OTHER * 11/25/18 RESP CX (+) GERARDO ALBICANS * 11/23/2018 BCX (-) * 11/21/18 WOUND CULTURE Final Organism 1 K PNEUMO ESBL QUANTITY SCANT GROWTH . MULTI DRUG RESISTANT ORGANISM Organism 2 GERARDO ALBICANS QUANTITY SCANT GROWTH KLEB PNEUM KLEB PNEUM M.I.C. RX M.I.C. RX --------- --- --------- --- AMIKACIN 16 S CEFAZOLIN R CEFEPIME 2 S CEFOTAXIME R CIPROFLOXACIN 2 I GENTAMICIN >=16 R LEVOFLOXACIN 1 S MEROPENEM 0.094 S TOBRAMYCIN >=16 R TRIMETHOPRIM/SULFAMETHOXAZOLE >=320 R PIPERACILLIN/TAZOBACTAM 16 S * 11/21/2018 BCX == BLOOD CULTURE GRAM NEGATIVE MERARY * BLOOD CULTURE Final KLEB PNEUM KLEB PNEUM M.I.C. RX M.I.C. RX --------- --- --------- --- AMIKACIN 16 S CEFAZOLIN R CEFOTAXIME R CIPROFLOXACIN 2 I GENTAMICIN >=16 R LEVOFLOXACIN 1 S MEROPENEM 0.064 S TOBRAMYCIN >=16 R TRIMETHOPRIM/SULFAMETHOXAZOLE >=320 R PIPERACILLIN/TAZOBACTAM 16 S PHYSICAL EXAMINATION: GENERAL: Frail, cachectic, F w/hypoxic resp failure --- A/A/O HEENT: AT, NC, anicteric = Orally intubated NECK: Supple (+)sternocleidomastoid retractions CHEST: Equal chest rise bilaterally==> Vented HEART: RRR ABDOMEN: Mild distended EXTREMITIES: Warm, dry, mild edema x4 extremities, skin tears BLExt, LEFT LEG W/OPEN WOUND DRAIN IN PLACE SKIN: No rash, no diaphoresis, STG 3 sacral decubs ID ASSESSMENT 58 yo F admit with: 1. GNR SEPSIS w/hypotension -- septic shock vs hypovolemic vs combination, w/cold shock, leukopenia * 11/21/18 BCX (+) Organism 1 GRAM NEGATIVE MERARY = KP-ESBL * Septic left lower extremity open wound w/hx of infected leg graft * Presumptive spontaneous bacterial peritonitis = DDX due to hx of ascites, presence of PD catheter, s/p Paracentesis prior admit to [facility] 2. Acute encephalopathy on admission: Secondary to severe hypoglycemia * Head CT negative for acute findings 3. Hypercapnic respiratory failure => Supplemental O2 + BiPAP PRN * Pulmonary edema, possible HCAP * 11/21/18 CXR: IMPRESSION:1. Changes are again seen suggesting pulmonary congestion/edema with small to moderate effusions and atelectasis or other consolidation. 4. Left lower extremity wound and pitting edema= PAD s/p bypass graft SEP 2018 * 11/21/18 WOUND CULTURE Final Organism 1 K PNEUMO ESBL QUANTITY SCANT GROWTH . MULTI DRUG RESISTANT ORGANISM Organism 2 GERARDO ALBICANS * s/p recent admission for 2 weeks at [facility], where she had procedure. * Venous study was negative for DVT here [facility] on admission 5. ESRD: Nephrology consulted == HD 6. Hx of chronic peritoneal dialysis w/indwelling PD catheter that is currently not being removed because of the severe thrombocytopenia. * PLAN PER NOTES: This can be addressed at [facility] where she usually gets her care 7. Ascites: Status post paracentesis about 5 weeks ago with removal of 4.5 L * At risk SBP due to ascites and indwelling PD catheter 8. Hypertension: 9. Pacemaker post implant status 10. Pancytopenia: Patient had workup here during recent hospitalization. 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 Hypothyroidism-> Synthroid on board 12. Failure to thrive: Patient with weight loss protein sharron malnutrition 13. STG 3 SACRAL DECUB = POA 14. B mastoiditis and acute sinusitis per CT (-)MRSA Nares ABX ALLERGIES: PCN/Vanco IV INVASIVES: Right upper thigh Davie catheter, left femoral triple-lumen catheter, endotracheal tube, orogastric tube, midline CURRENT ABX: DAY # Merrem + CANCIDAs s/p Clinda S/P DAPTO s/p Zyvox DC'd ID RECOMMENDATIONS/PLAN: 1. Continue current ABX over the weekend . Consultation Date/Type/Reason Admit Date/Time Nov 21, 2018 at 04:53 Initial Consult Date Requesting Provider: RIKA STOCK Date/Time of Note DATE: 12/05/18 TIME: 09:29 Exam/Review of Systems Exam Vitals Vital Signs Date Temp Pulse Resp B/P (MAP) Pulse Ox O2 O2 Flow FiO2 Time Delivery Rate 12/05/18 62 20 142/64 98 Mechanical 06:00 (90) Ventilator 12/05/18 30 05:32 12/05/18 97.8 04:00 Intake and Output 12/04/18 12/04/18 12/05/18 1515:00 23:00 07:00 IntakeIntake Total 765 ml 280 ml 245 ml OutputOutput Total 2500 ml 0 ml 0 ml BalanceBalance -1735 ml 280 ml 245 ml Results Result Diagram: 12/05/18 0537 12/05/18 0537 Results 24hrs Laboratory Tests Test 12/04/18 13:18 12/04/18 18:06 12/04/18 20:52 12/05/18 01:06 Bedside Glucose 89 87 93 100 Test 12/05/18 01:36 12/05/18 05:37 12/05/18 05:45 12/05/18 06:08 Bedside Glucose 88 65 L 179 White Blood Count 5.7 # Red Blood Count 3.61 L Hemoglobin 10.8 L Hematocrit 31.2 L Mean Corpuscular 86.4 Volume Mean Corpuscular 29.9 Hemoglobin Mean Corpuscular 34.6 Hemoglobin Concent Red Cell 18.7 H Distribution Width Platelet Count 46 #L Mean Platelet Volume Immature 0.900 H Granulocytes % Neutrophils % 67.6 Lymphocytes % 23.6 Monocytes % 6.8 Eosinophils % 0.4 Basophils % 0.7 Nucleated Red Blood 0.0 Cells % Immature 0.050 H Granulocytes # Neutrophils # 3.9 Lymphocytes # 1.4 Monocytes # 0.4 Eosinophils # 0.0 Basophils # 0.0 Nucleated Red Blood 0.0 Cells # Sodium Level 139 Potassium Level 3.5 Chloride Level 104 Carbon Dioxide Level 22 Anion Gap 13 Blood Urea Nitrogen 42 #H Creatinine 1.25 H Est Glomerular 44 L Filtrat Rate mL/min Glucose Level 78 Calcium Level 8.0 L Phosphorus Level 4.3 Magnesium Level 1.8 Medications Medication Current Medications Ondansetron HCl (Zofran Inj) 4 mg Q6H PRN IV NAUSEA AND/OR VOMITING Last administered on 12/04/18at 12:02; Admin Dose 4 MG; Start 11/21/18 at 05:30 Albuterol/ Ipratropium (Duoneb) 3 ml Q2H RESP THERAPY PRN NEB SHORTNESS OF BREATH; Start 11/21/18 at 05:30 Acetaminophen (Tylenol Liquid) 650 mg Q6H PRN PO PAIN LEVEL 1-3 OR FEVER; Start 11/21/18 at 05:30 Folic Acid (Folic Acid) 1 mg DAILY PO Last administered on 12/04/18at 11:03; Admin Dose 1 MG; Start 11/21/18 at 09:00 Meropenem/Sodium Chloride 50 ml @ 100 mls/hr Q12 IVPB Last administered on 12/04/18at 20:50; Admin Dose 100 MLS/HR; Start 11/21/18 at 21:00 Norepinephrine 250 ml @ 1.875 mls/ hr TITRATE IV Last administered on 12/03/18at 21:29; Admin Dose 9.375 MLS/HR; Start 11/21/18 at 19:00 Caspofungin 50 mg/ Sodium Chloride 250 ml @ 250 mls/hr Q24H IVPB Last administered on 12/04/18at 13:31; Admin Dose 250 MLS/HR; Start 11/24/18 at 13:00 Miscellaneous Information 1 ea NOTE XX ; Start 11/23/18 at 13:30 Glucose (Glutose) 15 gm Q15M PRN PO DECREASED GLUCOSE; Start 11/23/18 at 13:30 Glucose (Glutose) 22.5 gm Q15M PRN PO DECREASED GLUCOSE; Start 11/23/18 at 13:30 Dextrose (D50w Syringe) 25 ml Q15M PRN IV DECREASED GLUCOSE Last administered on 12/05/18at 05:49; Admin Dose 25 ML; Start 11/23/18 at 13:30 Dextrose (D50w Syringe) 50 ml Q15M PRN IV DECREASED GLUCOSE Last administered on 11/26/18at 13:03; Admin Dose 50 ML; Start 11/23/18 at 13:30 Glucagon (Glucagen) 1 mg Q15M PRN IM DECREASED GLUCOSE; Start 11/23/18 at 13:30 Glucose (Glutose) 15 gm Q15M PRN BUCCAL DECREASED GLUCOSE; Start 11/23/18 at 13:30 Propofol 100 ml @ 1.59 mls/hr Q12H IV Last administered on 11/28/18at 22:39; Admin Dose 3.18 MLS/HR; Start 11/24/18 at 00:00 Phenylephrine HCl 80 mg/Dextrose 250 ml @ 18.75 mls/ hr TITRATE IV ; Start 11/24/18 at 00:00 Famotidine (Pepcid) 20 mg DAILY PO Last administered on 12/04/18at 11:02; Admin Dose 20 MG; Start 11/26/18 at 09:00 Alteplase, Recombinant (Cathflo (Activase)) 2 mg MAY REPEAT X1 PRN CATHETER IF CATHETER REMAINS OCCULUDED Last administered on 12/02/18at 15:47; Admin Dose 2 MG; Start 11/26/18 at 03:00 Albumin Human 100 ml @ 100 mls/hr DURING DIALYSIS PRN IV HYPOTENSION DURING HD Last administered on 12/04/18at 09:19; Admin Dose 100 MLS/HR; Start 11/26/18 at 14:00 Diagnostic Test (Pha) (Accu-Chek) 1 ea Q4 XX Last administered on 12/05/18 05 :55; Admin Dose 1 EA; Start 11/27/18 at 13:00 Levothyroxine Sodium (Synthroid) 75 mcg BEFORE BREAKFAST NGT Last administered on 12/05/18 07:00; Admin Dose 75 MCG; Start 11/29/18 at 07:00 Midazolam HCl 50 ml @ 1 mls/hr TITRATE IV Last administered on 11/30/18 05:15; Admin Dose 50 MLS/HR; Start 11/29/18 at 09:00 Sodium Chloride 154 meq/Dextrose 1,038.5 ml @ 30 mls/hr Q24H IV Last administered on 12/04/18 10:00; Admin Dose 30 MLS/HR; Start 11/30/18 at 10:00 Collagenase (Santyl) 1 applic DAILY TOP Last administered on 12/04/18 09:00; Admin Dose 1 APPLIC; Start 12/01/18 at 16:30 Amiodarone HCl (Cordarone) 200 mg BID NGT Last administered on 12/04/18 20:54; Admin Dose 200 MG; Start 12/03/18 at 21:00 MARCO LOZADA NP Dec 05, 2018 09:39
[2018-12-05] MEDS: MEROPENEM 500MG/50 ML (PMX) 50 ML IVPB SCH ×2 (10:06→21:06)
[2018-12-05] MEDS: AMIODARONE 200 MG TAB NGT SCH ×2 (10:07→21:07)
[2018-12-05] MEDS: FOLIC ACID 1 MG TAB PO SCH (10:07)
[2018-12-05] MEDS: FAMOTIDINE 20 MG TAB PO SCH (10:07)
[2018-12-05] MEDS: COLLAGENASE 5 GM (UD JAR) TOP SCH (10:08)
[2018-12-05] MEDS: SODIUM CHLORIDE 23.4% 154 MEQ in DEXTROSE 10% 1,000 ML IV SCH ×2 (10:09→21:07)
--- NOTE | 2018-12-05 11:55 | CONS ---
Consult Date/Type/Reason Admit Date/Time Nov 21, 2018 at 04:53 Initial Consult Date Type of Consultation: Pulm/CC Requesting Provider: RIKA STOCK Date/Time of Note DATE: 12/05/18 TIME: 11:50 Subjective Awake and alert on the vent. Weak and unable to generate volumes on CPAP. Objective Vitals Vital Signs Date Temp Pulse Resp B/P (MAP) Pulse Ox O2 O2 Flow FiO2 Time Delivery Rate 12/05/18 98.1 08:00 12/05/18 62 08:00 12/05/18 20 142/64 98 Mechanical 06:00 (90) Ventilator 12/05/18 30 05:32 Intake and Output 12/04/18 12/04/18 12/05/18 1515:00 23:00 07:00 IntakeIntake Total 765 ml 280 ml 245 ml OutputOutput Total 2500 ml 0 ml 0 ml BalanceBalance -1735 ml 280 ml 245 ml Exam HEENT: Neck supple; no JVD; no LAD CVS: RRR, S1 and S2 CHEST: Clear ABD: Soft, NT, + BS EXT: + cachexia NEURO: Diffusely weak with proximal > distal motor weakness Results/Medications Result Diagram: 12/05/18 0537 12/05/18 0537 Results 24 hrs Laboratory Tests Test 12/04/18 13:18 12/04/18 18:06 12/04/18 20:52 12/05/18 01:06 Bedside Glucose 89 87 93 100 Test 12/05/18 01:36 12/05/18 05:37 12/05/18 05:45 12/05/18 06:08 Bedside Glucose 88 65 L 179 White Blood Count 5.7 # Red Blood Count 3.61 L Hemoglobin 10.8 L Hematocrit 31.2 L Mean Corpuscular 86.4 Volume Mean Corpuscular 29.9 Hemoglobin Mean Corpuscular 34.6 Hemoglobin Concent Red Cell 18.7 H Distribution Width Platelet Count 46 #L Mean Platelet Volume Immature 0.900 H Granulocytes % Neutrophils % 67.6 Lymphocytes % 23.6 Monocytes % 6.8 Eosinophils % 0.4 Basophils % 0.7 Nucleated Red Blood 0.0 Cells % Immature 0.050 H Granulocytes # Neutrophils # 3.9 Lymphocytes # 1.4 Monocytes # 0.4 Eosinophils # 0.0 Basophils # 0.0 Nucleated Red Blood 0.0 Cells # Sodium Level 139 Potassium Level 3.5 Chloride Level 104 Carbon Dioxide Level 22 Anion Gap 13 Blood Urea Nitrogen 42 #H Creatinine 1.25 H Est Glomerular 44 L Filtrat Rate mL/min Glucose Level 78 Calcium Level 8.0 L Phosphorus Level 4.3 Magnesium Level 1.8 Test 12/05/18 10:05 Bedside Glucose 99 Home Meds Reported Medications Folic Acid* (Folic Acid*) 1 Mg Tablet, 1 MG PO DAILY, TAB 08/10/18 Amiodarone Hcl* (Amiodarone Hcl*) 200 Mg Tablet, 200 MG PO BID, #60 TAB 08/10/18 Pantoprazole* (Protonix*) 40 Mg Tablet.dr, 40 MG PO DAILY, TAB 08/10/18 Multivit/Ca Carb/B Cmplx/Fa* (Iram-Xiomara*) 1 Tab Tab, 1 TAB PO DAILY, TAB 08/10/18 Levothyroxine Sodium* (Levoxyl*) 75 Mcg Tablet, 75 MCG PO BEFORE BREAKFAST, #30 TAB 08/10/18 Medications Current Medications Ondansetron HCl (Zofran Inj) 4 mg Q6H PRN IV NAUSEA AND/OR VOMITING Last administered on 12/04/18at 12:02; Admin Dose 4 MG; Start 11/21/18 at 05:30 Albuterol/ Ipratropium (Duoneb) 3 ml Q2H RESP THERAPY PRN NEB SHORTNESS OF BREATH; Start 11/21/18 at 05:30 Acetaminophen (Tylenol Liquid) 650 mg Q6H PRN PO PAIN LEVEL 1-3 OR FEVER; Start 11/21/18 at 05:30 Folic Acid (Folic Acid) 1 mg DAILY PO Last administered on 12/05/18at 10:07; Admin Dose 1 MG; Start 11/21/18 at 09:00 Meropenem/Sodium Chloride 50 ml @ 100 mls/hr Q12 IVPB Last administered on 12/05/18at 10:06; Admin Dose 100 MLS/HR; Start 11/21/18 at 21:00 Norepinephrine 250 ml @ 1.875 mls/ hr TITRATE IV Last administered on at 21:29; Admin Dose 9.375 MLS/HR; Start 11/21/18 at 19:00 Caspofungin 50 mg/ Sodium Chloride 250 ml @ 250 mls/hr Q24H IVPB Last administered on 12/04/18 13:31; Admin Dose 250 MLS/HR; Start 11/24/18 at 13:00 Miscellaneous Information 1 ea NOTE XX ; Start 11/23/18 at 13:30 Glucose (Glutose) 15 gm Q15M PRN PO DECREASED GLUCOSE; Start 11/23/18 at 13:30 Glucose (Glutose) 22.5 gm Q15M PRN PO DECREASED GLUCOSE; Start 11/23/18 at 13:30 Dextrose (D50w Syringe) 25 ml Q15M PRN IV DECREASED GLUCOSE Last administered on 12/05/18 05:49; Admin Dose 25 ML; Start 11/23/18 at 13:30 Dextrose (D50w Syringe) 50 ml Q15M PRN IV DECREASED GLUCOSE Last administered on 11/26/18 13:03; Admin Dose 50 ML; Start 11/23/18 at 13:30 Glucagon (Glucagen) 1 mg Q15M PRN IM DECREASED GLUCOSE; Start 11/23/18 at 13:30 Glucose (Glutose) 15 gm Q15M PRN BUCCAL DECREASED GLUCOSE; Start 11/23/18 at 13:30 Propofol 100 ml @ 1.59 mls/hr Q12H IV Last administered on 11/28/18 22:39; Admin Dose 3.18 MLS/HR; Start 11/24/18 at 00:00 Phenylephrine HCl 80 mg/Dextrose 250 ml @ 18.75 mls/ hr TITRATE IV ; Start 11/24/18 at 00:00 Famotidine (Pepcid) 20 mg DAILY PO Last administered on 12/05/18at 10:07; Admin Dose 20 MG; Start 11/26/18 at 09:00 Alteplase, Recombinant (Cathflo (Activase)) 2 mg MAY REPEAT X1 PRN CATHETER IF CATHETER REMAINS OCCULUDED Last administered on 12/02/18 15:47; Admin Dose 2 MG; Start 11/26/18 at 03:00 Albumin Human 100 ml @ 100 mls/hr DURING DIALYSIS PRN IV HYPOTENSION DURING HD Last administered on 12/04/18 09:19; Admin Dose 100 MLS/HR; Start 11/26/18 at 14:00 Diagnostic Test (Pha) (Accu-Chek) 1 ea Q4 XX Last administered on 12/05/18 09:00; Admin Dose 1 EA; Start 11/27/18 at 13:00 Levothyroxine Sodium (Synthroid) 75 mcg BEFORE BREAKFAST NGT Last administered on 12/05/18 07:00; Admin Dose 75 MCG; Start 11/29/18 at 07:00 Midazolam HCl 50 ml @ 1 mls/hr TITRATE IV Last administered on 11/30/18 05:15; Admin Dose 50 MLS/HR; Start 11/29/18 at 09:00 Sodium Chloride 154 meq/Dextrose 1,038.5 ml @ 30 mls/hr Q24H IV Last administered on 12/05/18 10:09; Admin Dose 30 MLS/HR; Start 11/30/18 at 10:00 Collagenase (Santyl) 1 applic DAILY TOP Last administered on 12/05/18 10:08; Admin Dose 1 APPLIC; Start 12/01/18 at 16:30 Amiodarone HCl (Cordarone) 200 mg BID NGT Last administered on 12/05/18 10:07; Admin Dose 200 MG; Start 12/03/18 at 21:00 Assessment/Plan Assessment/Plan (Daily) IMP: 1. Septic Shock 2. Gram Negative Bacteremia 3. Vent Dependent Resp Failure 4. ESRD on HD 5. Cardiomyopathy 6. Severe Thrombocytopenia 7. Anemia RECS: 1. 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 Spoke with family about need for trach to facilitate long-term weaning 3. Titrate pressors 4. HD/UF per Renal 5. Abx per ID 40 min cc time SHERON CAPUTO MD Dec 05, 2018 11:55
[2018-12-05] MEDS: PROPOFOL 100 ML IV SCH ×3 (12:00→21:07)
--- NOTE | 2018-12-05 12:02 | PN ---
Date/Time of Note Date/Time of Note DATE: 12/05/18 TIME: 12:02 Assessment/Plan VTE Prophylaxis Risk score (from Nsg)>0 risk: 8 Pharmacological prophylaxis: NA/contraindicated Pharm contraindication: renal impairment Lines/Catheters IV Catheter Type (from Nrsg): Mid Line Urinary Cath still in place: No (pt on HD) Assessment/Plan Hospital Course 58 yo female with ESRD, cirrhosis, DMII presents with hypoglycemia, leg infection. Suffered cardiac and respiratory arrest, now intubated Cardiac arrest, acute respiratory failure: -Mentation is improving - Continue vasopressors and mechanical ventilation per pulmonary -Anticipate extubation in the coming days Hypoglycemia: No history of diabetes and patient not on any insulin or sulfonylurea or any other diabetic medication - Continue IV dextrose and tube feeds Left lower extremity wound - Antibiotics per ID -Venous study was negative for DVT Paroxysmal A Fib: -Patient back in sinus rhythm, DC amiodarone drip -Resume oral amiodarone ESRD with fluid overload - HD per nephrology Pancytopenia with coagulopathy, thrombocytopenia: Patient had workup here during recent hospitalization. 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 -Picture of pancytopenia with macrocytic anemia and coagulopathy does appear consistent with liver disease, await liver ultrasound Hypothyroidism: Continue Synthroid History of pacemaker: No acute issue Ascites secondary to fluid overload and/or liver disease: Status post parace ntesis 3 weeks ago with removal of 4.5 L - s/p paracentesis, in addition patient's blood pressure is low Chronic peritoneal dialysis: This is not being used. Not being removed because of the severe thrombocytopenia. This can be addressed at [facility] where she usually gets her care Failure to thrive: Patient is very cachectic -Nutrition consult Prophylaxis: SCDs DC planning: Patient with poor overall prognosis, anticipate extubation in the coming days Result Diagram: 12/05/18 0537 12/05/18 0537 Results 24hrs Laboratory Tests Test 12/04/18 13:18 12/04/18 18:06 12/04/18 20:52 12/05/18 01:06 Bedside Glucose 89 87 93 100 Test 12/05/18 01:36 12/05/18 05:37 12/05/18 05:45 12/05/18 06:08 Bedside Glucose 88 65 L 179 White Blood Count 5.7 # Red Blood Count 3.61 L Hemoglobin 10.8 L Hematocrit 31.2 L Mean Corpuscular 86.4 Volume Mean Corpuscular 29.9 Hemoglobin Mean Corpuscular 34.6 Hemoglobin Concent Red Cell 18.7 H Distribution Width Platelet Count 46 #L Mean Platelet Volume Immature 0.900 H Granulocytes % Neutrophils % 67.6 Lymphocytes % 23.6 Monocytes % 6.8 Eosinophils % 0.4 Basophils % 0.7 Nucleated Red Blood 0.0 Cells % Immature 0.050 H Granulocytes # Neutrophils # 3.9 Lymphocytes # 1.4 Monocytes # 0.4 Eosinophils # 0.0 Basophils # 0.0 Nucleated Red Blood 0.0 Cells # Sodium Level 139 Potassium Level 3.5 Chloride Level 104 Carbon Dioxide Level 22 Anion Gap 13 Blood Urea Nitrogen 42 #H Creatinine 1.25 H Est Glomerular 44 L Filtrat Rate mL/min Glucose Level 78 Calcium Level 8.0 L Phosphorus Level 4.3 Magnesium Level 1.8 Test 12/05/18 10:05 Bedside Glucose 99 Subjective 24 Hr Interval Summary Subjective hx not possible: pt non-verbal Exam/Review of Systems Exam Vitals Vital Signs Date Temp Pulse Resp B/P (MAP) Pulse Ox O2 O2 Flow FiO2 Time Delivery Rate 12/05/18 98.1 08:00 12/05/18 62 08:00 12/05/18 20 142/64 98 Mechanical 06:00 (90) Ventilator 12/05/18 30 05:32 Intake and Output 12/04/18 12/04/18 12/05/18 1515:00 23:00 07:00 IntakeIntake Total 765 ml 280 ml 245 ml OutputOutput Total 2500 ml 0 ml 0 ml BalanceBalance -1735 ml 280 ml 245 ml Constitutional: non-verbal ENMT: intubated Respiratory: clear to auscultation Cardiovascular: regular rate and rhythm Gastrointestinal: soft; No distended Musculoskeletal: nl extremities to inspection Results Results 24hrs Laboratory Tests Test 12/04/18 13:18 12/04/18 18:06 12/04/18 20:52 12/05/18 01:06 Bedside Glucose 89 87 93 100 Test 12/05/18 01:36 12/05/18 05:37 12/05/18 05:45 12/05/18 06:08 Bedside Glucose 88 65 L 179 White Blood Count 5.7 # Red Blood Count 3.61 L Hemoglobin 10.8 L Hematocrit 31.2 L Mean Corpuscular 86.4 Volume Mean Corpuscular 29.9 Hemoglobin Mean Corpuscular 34.6 Hemoglobin Concent Red Cell 18.7 H Distribution Width Platelet Count 46 #L Mean Platelet Volume Immature 0.900 H Granulocytes % Neutrophils % 67.6 Lymphocytes % 23.6 Monocytes % 6.8 Eosinophils % 0.4 Basophils % 0.7 Nucleated Red Blood 0.0 Cells % Immature 0.050 H Granulocytes # Neutrophils # 3.9 Lymphocytes # 1.4 Monocytes # 0.4 Eosinophils # 0.0 Basophils # 0.0 Nucleated Red Blood 0.0 Cells # Sodium Level 139 Potassium Level 3.5 Chloride Level 104 Carbon Dioxide Level 22 Anion Gap 13 Blood Urea Nitrogen 42 #H Creatinine 1.25 H Est Glomerular 44 L Filtrat Rate mL/min Glucose Level 78 Calcium Level 8.0 L Phosphorus Level 4.3 Magnesium Level 1.8 Test 12/05/18 10:05 Bedside Glucose 99 Medications Medication Current Medications Ondansetron HCl (Zofran Inj) 4 mg Q6H PRN IV NAUSEA AND/OR VOMITING Last administered on 12/04/18 12:02; Admin Dose 4 MG; Start 11/21/18 at 05:30 Albuterol/ Ipratropium (Duoneb) 3 ml Q2H RESP THERAPY PRN NEB SHORTNESS OF BREATH; Start 11/21/18 at 05:30 Acetaminophen (Tylenol Liquid) 650 mg Q6H PRN PO PAIN LEVEL 1-3 OR FEVER; Start 11/21/18 at 05:30 Folic Acid (Folic Acid) 1 mg DAILY PO Last administered on 12/05/18 10:07; Admin Dose 1 MG; Start 11/21/18 at 09:00 Meropenem/Sodium Chloride 50 ml @ 100 mls/hr Q12 IVPB Last administered on 12/05/18 10:06; Admin Dose 100 MLS/HR; Start 11/21/18 at 21:00 Norepinephrine 250 ml @ 1.875 mls/ hr TITRATE IV Last administered on 12/03/18 21:29; Admin Dose 9.375 MLS/HR; Start 11/21/18 at 19:00 Caspofungin 50 mg/ Sodium Chloride 250 ml @ 250 mls/hr Q24H IVPB Last administered on 12/04/18 13:31; Admin Dose 250 MLS/HR; Start 11/24/18 at 13:00 Miscellaneous Information 1 ea NOTE XX ; Start 11/23/18 at 13:30 Glucose (Glutose) 15 gm Q15M PRN PO DECREASED GLUCOSE; Start 11/23/18 at 13:30 Glucose (Glutose) 22.5 gm Q15M PRN PO DECREASED GLUCOSE; Start 11/23/18 at 13:30 Dextrose (D50w Syringe) 25 ml Q15M PRN IV DECREASED GLUCOSE Last administered on 12/05/18 05:49; Admin Dose 25 ML; Start 11/23/18 at 13:30 Dextrose (D50w Syringe) 50 ml Q15M PRN IV DECREASED GLUCOSE Last administered on 11/26/18 13:03; Admin Dose 50 ML; Start 11/23/18 at 13:30 Glucagon (Glucagen) 1 mg Q15M PRN IM DECREASED GLUCOSE; Start 11/23/18 at 13:30 Glucose (Glutose) 15 gm Q15M PRN BUCCAL DECREASED GLUCOSE; Start 11/23/18 at 13 :30 Propofol 100 ml @ 1.59 mls/hr Q12H IV Last administered on 12/05/18 12:00; Admin Dose 0 MLS/HR; Start 11/24/18 at 00:00 Phenylephrine HCl 80 mg/Dextrose 250 ml @ 18.75 mls/ hr TITRATE IV ; Start 11/24/18 at 00:00 Famotidine (Pepcid) 20 mg DAILY PO Last administered on 12/05/18 10:07; Admin Dose 20 MG; Start 11/26/18 at 09:00 Alteplase, Recombinant (Cathflo (Activase)) 2 mg MAY REPEAT X1 PRN CATHETER IF CATHETER REMAINS OCCULUDED Last administered on 12/02/18 15:47; Admin Dose 2 MG; Start 11/26/18 at 03:00 Albumin Human 100 ml @ 100 mls/hr DURING DIALYSIS PRN IV HYPOTENSION DURING HD Last administered on 12/04/18 09:19; Admin Dose 100 MLS/HR; Start 11/26/18 at 14:00 Diagnostic Test (Pha) (Accu-Chek) 1 ea Q4 XX Last administered on 12/05/18 09:00; Admin Dose 1 EA; Start 11/27/18 at 13:00 Levothyroxine Sodium (Synthroid) 75 mcg BEFORE BREAKFAST NGT Last administered on 12/05/18 07:00; Admin Dose 75 MCG; Start 11/29/18 at 07:00 Midazolam HCl 50 ml @ 1 mls/hr TITRATE IV Last administered on 11/30/18 05:15; Admin Dose 50 MLS/HR; Start 11/29/18 at 09:00 Sodium Chloride 154 meq/Dextrose 1,038.5 ml @ 30 mls/hr Q24H IV Last administered on 12/05/18 10:09; Admin Dose 30 MLS/HR; Start 11/30/18 at 10:00 Collagenase (Santyl) 1 applic DAILY TOP Last administered on 12/05/18 10:08; Admin Dose 1 APPLIC; Start 12/01/18 at 16:30 Amiodarone HCl (Cordarone) 200 mg BID NGT Last administered on 12/05/18 10:07; Admin Dose 200 MG; Start 12/03/18 at 21:00 RIKA STOCK Dec 05, 2018 12:02
[2018-12-05] MEDS: CASPOFUNGIN 50 MG in SOD CHLORIDE 0.9% 250 ML IVPB SCH (13:12)
[2018-12-06] VITALS (108 sets, daily range): BP systolic 67–168; BP diastolic 49–81; PULSE 63–90; RESP 16–32
[2018-12-06] MEDS: ACCU-CHEK XX SCH ×6 (00:45→20:56)
[2018-12-06] MEDS: NORepinephrine 8MG/250 ML (PMX 250 ML IV SCH (00:52)
[2018-12-06] MEDS: LEVOTHYROXINE 75 MCG TAB NGT SCH (05:42)
[2018-12-06] MEDS: DEXTROSE 50% 50 ML SYRINGE IV PRN ×3 (05:44→20:57)
--- NOTE | 2018-12-06 08:15 | PN ---
DATE: 12/06/2018 SUBJECTIVE: The patient remains critically ill on full ventilatory support. The patient is schedule d for hemodialysis today. OBJECTIVE: VITAL SIGNS: Blood pressure is 105/63, respiratory rate 20, pulse 86, temperature 99.6. HEENT: Head is normocephalic. NECK: Supple. HEART: Regular rate. LUNGS: Show diminished breath sounds at the base. ABDOMEN: Soft, nontender to palpation without rebound or guarding. EXTREMITIES: Negative for clubbing, cyanosis, positive edema, diffuse anasarca. DERMATOLOGIC: No rashes. MUSCULOSKELETAL: No joint effusion. NEUROLOGIC: No change in exam. MEDICATIONS: Reviewed. LABORATORY DATA: Has been reviewed. ASSESSMENT AND PLAN: 1. End-stage renal disease. Plan for hemodialysis today. We will dialyze 3 hours 2k bath, ultrafil trate as tolerated. 2. Volume overload. Continue ultrafiltration with hemodialysis. 3. Septic shock secondary to pneumonia. Continue pressor support, wean off as tolerated. Continue antibiotics. 4. Anemia. Monitor hemoglobin and hematocrit levels. Will give Epogen as needed. 5. Mineral bone disorder, monitor calcium and phosphorus levels. 6. Hyponatremia, resolved. 7. Ventilator dependent respiratory failure. Vent settings and ABG was reviewed. 8. Acute encephalopathy, etiology toxic metabolic. 9. Ascites, status post paracentesis. 10. Hypothyroidism. Continue Synthroid. 11. Dysphagia. Continue tube feeding. 12. Arrhythmia. Continue amiodarone. 13. Hyperglycemia. The patient is on dextrose drip. 14. Lower extremity wounds. 15. Status post cardiopulmonary arrest. Dictated By: SARIKA CRAIG/NTS Conf#: [id number] DID#: [id number] CC: HARI CRUZ MD;*EndCC*
[2018-12-06] MEDS: BALSAM PERU/CASTOR OIL 60 GM TUBE TOP SCH ×2 (09:27→20:56)
[2018-12-06] MEDS: COLLAGENASE 5 GM (UD JAR) TOP SCH (09:30)
[2018-12-06] MEDS: AMIODARONE 200 MG TAB NGT SCH ×2 (09:30→20:56)
[2018-12-06] MEDS: FOLIC ACID 1 MG TAB NGT SCH (09:30)
[2018-12-06] MEDS: MEROPENEM 500MG/50 ML (PMX) 50 ML IVPB SCH ×2 (09:31→20:56)
[2018-12-06] MEDS: FAMOTIDINE 20 MG TAB NGT SCH (09:32)
[2018-12-06] MEDS ORDERED: EPOETIN ALFA-EPBX (ESRD) 10,000 UNIT/ML VIAL SC ONE (10:00)
--- NOTE | 2018-12-06 10:14 | CONS ---
Assessment/Plan Assessment/Plan Hospital Course 58 yo F with hx of afib, ESRD on peritoneal dialysis, and other comorbidities... who initially presented with ams in the context of hypotension and severe hypoglycemia. Now s/p PEA arrest on 11/24; Targeted temperature therapy was deferred.. She remains protractedly encephalopathic, for which neurology is consulted. The clinical picture suggests an acute toxic-metabolic (?on chronic) encephalopathy. HCT is reassuringly without obvious acute intracranial pathology. CXR + PNA Na 127, phos 6.9 ammonia, TSH, B12 wnl plt 24 P: OK to defer MRI brain for now Cont medical management per primary [place] as able Cont to limit sedating medications where possible PT/OT when able Will follow Consultation Date/Type/Reason Admit Date/Time Nov 21, 2018 at 04:53 Type of Consult Neurology Reason for Consultation ams Requesting Provider: RIKA STOCK Date/Time of Note DATE: 12/06/18 TIME: 10:13 24 HR Interval Summary Free Text/Dictation Continues critical care. Remains on low dose levophed. Subjective hx not possible: pt non-verbal Exam Vital Signs Vitals Vital Signs Date Temp Pulse Resp B/P (MAP) Pulse Ox O2 O2 Flow FiO2 Time Delivery Rate 12/06/18 71 08:00 12/06/18 20 105/63 100 06:45 (77) 12/06/18 Mechanical 06:00 Ventilator 12/06/18 30 05:21 12/06/18 97.3 03:15 Intake and Output 12/05/18 12/05/18 12/06/18 1515:00 23:00 07:00 IntakeIntake Total 380 ml 371.830 ml 503.678 ml OutputOutput Total 0 ml 0 ml 400 ml BalanceBalance 380 ml 371.830 ml 103.678 ml Exam PE: Gen Appearance: No Apparent Distress HEENT: Intubated Cardiovascular: Regular rate Abdomen: Soft Extremities: Dry NE: The patient was awake and alert. Nonverbal d/t ETT. Able to gesture and nod appropriately to yes/no questions. Able to follow simple axial and appendicular commands. Cranial nerve examination was limited by mental status. Pupils were equal and reactive to light. There was no afferent pupillary defect. Funduscopic examination was limited. Face was grossly symmetric, w/ present corneal and cough reflexes. Tone was normal. Muscle bulk was severely diminished. I did not see fasciculations. The patient was generally very weak. Coordination and gait testing was limited by mental status. Arm and leg reflexes were within normal limits and symmetric. Alvarez's sign was absent. Plantar responses were flexor. HOLLY FISHER NP Dec 06, 2018 10:14
--- NOTE | 2018-12-06 10:27 | CONS ---
Assessment/Plan Assessment/Plan Hospital Course (Demo Recall) ID PROGRESS NOTE CURRENT ABX: DAY # => Merrem + CANCIDAs s/p Clinda S/P DAPTO s/p Zyvox DC'd 12/06/18 0400 12/06/18 0710 HPI/HOSPITAL COURSE/24H INTERVAL SUMMARY * Clinically status quo -- remains Lethargic, awakens, extremely frail w/ge neralized weakness * Acute hypoxic respiratory distress -- orally intubated and Vented, sternal retractions, cachexia * Prior intermittent hypotensive readings, no fevers * INVASIVES: Right upper thigh Davie catheter, left femoral triple-lumen catheter, endotracheal tube, orogastric tube, midline DIAGNOSTIC IMAGING * 12/06/18 CXR Persistent diffuse bilateral ground-glass interstitial infiltrates with effusions unchanged. Rule out pneumonia. * 12/05/18 CXR Stable appearance of the chest including findings suggestive of CHF.Lines and tubes are stable. * 11/21/18 CXR: Changes are again seen suggesting pulmonary congestion/edema with small to moderate effusions and atelectasis or other consolidation. MICRO/OTHER * 11/25/18 RESP CX (+) GERARDO ALBICANS * 11/23/2018 BCX (-) * 11/21/18 WOUND CULTURE Final Organism 1 K PNEUMO ESBL QUANTITY SCANT GROWTH . MULTI DRUG RESISTANT ORGANISM Organism 2 GERARDO ALBICANS QUANTITY SCANT GROWTH KLEB PNEUM KLEB PNEUM M.I.C. RX M.I.C. RX --------- --- --------- --- AMIKACIN 16 S CEFAZOLIN R CEFEPIME 2 S CEFOTAXIME R CIPROFLOXACIN 2 I GENTAMICIN >=16 R LEVOFLOXACIN 1 S MEROPENEM 0.094 S TOBRAMYCIN >=16 R TRIMETHOPRIM/SULFAMETHOXAZOLE >=320 R PIPERACILLIN/TAZOBACTAM 16 S * 11/21/2018 BCX == BLOOD CULTURE GRAM NEGATIVE MERARY * BLOOD CULTURE Final KLEB PNEUM KLEB PNEUM M.I.C. RX M.I.C. RX --------- --- --------- --- AMIKACIN 16 S CEFAZOLIN R CEFOTAXIME R CIPROFLOXACIN 2 I GENTAMICIN >=16 R LEVOFLOXACIN 1 S MEROPENEM 0.064 S TOBRAMYCIN >=16 R TRIMETHOPRIM/SULFAMETHOXAZOLE >=320 R PIPERACILLIN/TAZOBACTAM 16 S PHYSICAL EXAMINATION: GENERAL: Frail, cachectic, F w/hypoxic resp failure --- A/A/O HEENT: AT, NC, anicteric = Orally intubated NECK: Supple (+)sternocleidomastoid retractions CHEST: Equal chest rise bilaterally==> Vented HEART: RRR ABDOMEN: Mild distended EXTREMITIES: Warm, dry, mild edema x4 extremities, skin tears BLExt, LEFT LEG W/OPEN WOUND DRAIN IN PLACE SKIN: No rash, no diaphoresis, STG 3 sacral decubs ID ASSESSMENT 58 yo F admit with: 1. GNR SEPSIS w/hypotension -- septic shock vs hypovolemic vs combination, w/cold shock, leukopenia * 11/21/18 BCX (+) Organism 1 GRAM NEGATIVE MERARY = KP-ESBL * Septic left lower extremity open wound w/hx of infected leg graft * Presumptive spontaneous bacterial peritonitis = DDX due to hx of ascites, presence of PD catheter, s/p Paracentesis prior admit to [facility] 2. Acute encephalopathy on admission: Secondary to severe hypoglycemia * Head CT negative for acute findings 3. Hypercapnic respiratory failure => Supplemental O2 + BiPAP PRN * Pulmonary edema, possible HCAP * 11/21/18 CXR: IMPRESSION:1. Changes are again seen suggesting pulmonary congestion/edema with small to moderate effusions and atelectasis or other consolidation. 4. Left lower extremity wound and pitting edema= PAD s/p bypass graft SEP 2018 * 11/21/18 WOUND CULTURE Final Organism 1 K PNEUMO ESBL QUANTITY SCANT GROWTH . MULTI DRUG RESISTANT ORGANISM Organism 2 GERARDO ALBICANS * s/p recent admission for 2 weeks at [facility], where she had procedure. * Venous study was negative for DVT here [facility] on admission 5. ESRD: Nephrology consulted == HD 6. Hx of chronic peritoneal dialysis w/indwelling PD catheter that is currently not being removed because of the severe thrombocytopenia. * PLAN PER NOTES: This can be addressed at [facility] where she usually gets her care 7. Ascites: Status post paracentesis about 5 weeks ago with removal of 4.5 L * At risk SBP due to ascites and indwelling PD catheter 8. Hypertension: 9. Pacemaker post implant status 10. Pancytopenia: Patient had workup here during recent hospitalization. 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 Hypothyroidism-> Synthroid on board 12. Failure to thrive: Patient with weight loss protein sharron malnutrition 13. STG 3 SACRAL DECUB = POA 14. B mastoiditis and acute sinusitis per CT (-)MRSA Nares ABX ALLERGIES: PCN/Vanco IV INVASIVES: Right upper thigh Davie catheter, left femoral triple-lumen catheter, endotracheal tube, orogastric tube, midline CURRENT ABX: DAY # Merrem + CANCIDAs s/p Clinda S/P DAPTO s/p Zyvox DC'd ID RECOMMENDATIONS/PLAN: 1. Continue current ABX over the weekend . Consultation Date/Type/Reason Admit Date/Time Nov 21, 2018 at 04:53 Initial Consult Date Requesting Provider: RIKA STOCK Date/Time of Note DATE: 12/06/18 TIME: 10:21 Exam/Review of Systems Exam Vitals Vital Signs Date Temp Pulse Resp B/P (MAP) Pulse Ox O2 O2 Flow FiO2 Time Delivery Rate 12/06/18 71 08:00 12/06/18 20 105/63 100 06:45 (77) 12/06/18 Mechanical 06:00 Ventilator 12/06/18 30 05:21 12/06/18 97.3 03:15 Intake and Output 12/05/18 12/05/18 12/06/18 1515:00 23:00 07:00 IntakeIntake Total 380 ml 371.830 ml 503.678 ml OutputOutput Total 0 ml 0 ml 400 ml BalanceBalance 380 ml 371.830 ml 103.678 ml Results Result Diagram: 12/06/18 0400 12/06/18 0710 Results 24hrs Laboratory Tests Test 12/05/18 13:11 12/05/18 17:27 12/05/18 21:08 12/06/18 00:38 Bedside Glucose 86 73 100 83 Test 12/06/18 04:00 12/06/18 04:10 12/06/18 05:00 12/06/18 05:42 White Blood 4.0 #L Count Red Blood Count 2.91 L Hemoglobin 8.7 L Hematocrit 25.1 L Mean Corpuscular 86.3 Volume Mean Corpuscular 29.9 Hemoglobin Mean Corpuscular 34.7 Hemoglobin Anh nt Red Cell 19.0 H Distribution Width Platelet Count 40 L Mean Platelet Volume Immature 0.300 Granulocytes % Neutrophils % Segmented 48 Neutrophils % (Manual) Band Neutrophils 15 H % (Manual) Lymphocytes % Lymphocytes % 25 (Manual) Monocytes % Monocytes % 7 (Manual) Eosinophils % Eosinophils % 3 (Manual) Basophils % Basophils % 1 (Manual) Myelocytes % 1 H (Manual) Nucleated Red 1 H Blood Cells % Immature 0.010 Granulocytes # Neutrophils # Neutrophils # 1.9 (Manual) Band Neutrophils 0.6 # Lymphocytes 1.0 (Manual) Lymphocytes # Monocytes # Monocytes # 0.2 L (Manual) Eosinophils # Basophils # Basophils # 0.0 (Manual) Myelocytes # 0.0 Nucleated Red Blood Cells # Platelet SIG DECREASED Estimate Giant Platelets 2 H Polychromasia 2+ Poikilocytosis 3+ Anisocytosis 2+ Macrocytosis 1+ Lactic Acid 2.4 *H Level Blood Gas Blood arterial Specimen Source Arterial Blood 12/06/2018 4:20: Date Drawn 48 AM Arterial Blood 7.530 H pH (Temp corrected) Arterial Blood 22.4 L pCO2 (Temp correct) Arterial Blood 89.5 pO2 (Temp corrected) Arterial Blood 18.3 L HCO3 Arterial Blood -3.2 L Base Excess Arterial Blood 96.6 Oxygen Saturatio n Morgan Test N/A Arterial Blood Right Brachial Gas Puncture Site Arterial 0.3 Blood Carboxyhem oglobin Arterial Blood 0.2 Methemoglobin Blood Gas A-a O2 98.1 H Differential Oxyhemoglobin 96.1 Percent Blood Gas 37.0 Temperature Blood Gas 20.0 Respiration Rate Blood Gas Actual 20 Respiration Rate Blood Gas VENT - AC Modality FiO2 30.0 Blood Gas Tidal 450.0 Volume Blood Gas Low 5.0 PEEP Setting Blood Gas UP Notified Whom Blood Gas 12/06/2018 4:41: Notified Time 11 AM Bedside Glucose 67 L Test 12/06/18 06:28 12/06/18 06:56 12/06/18 07:10 12/06/18 08:46 Bedside Glucose 129 171 130 Sodium Level 139 Potassium Level 3.5 Chloride Level 107 Carbon Dioxide 20 L Level Anion Gap 12 Blood Urea 48 H Nitrogen Creatinine 1.39 H Est Glomerular 39 L Filtrat Rate mL/min Glucose Level 122 # Calcium Level 7.8 L Medications Medication Current Medications Ondansetron HCl (Zofran Inj) 4 mg Q6H PRN IV NAUSEA AND/OR VOMITING Last administered on 12/04/18at 12:02; Admin Dose 4 MG; Start 11/21/18 at 05:30 Albuterol/ Ipratropium (Duoneb) 3 ml Q2H RESP THERAPY PRN NEB SHORTNESS OF BREATH; Start 11/21/18 at 05:30 Meropenem/Sodium Chloride 50 ml @ 100 mls/hr Q12 IVPB Last administered on 12/06/18at 09:31; Admin Dose 100 MLS/HR; Start 11/21/18 at 21:00 Norepinephrine 250 ml @ 1.875 mls/ hr TITRATE IV Last administered on 12/06/18at 00:52; Admin Dose 5.61 MLS/HR; Start 11/21/18 at 19:00 Caspofungin 50 mg/ Sodium Chloride 250 ml @ 250 mls/hr Q24H IVPB Last adminis tered on 12/05/18at 13:12; Admin Dose 250 MLS/HR; Start 11/24/18 at 13:00 Miscellaneous Information 1 ea NOTE XX ; Start 11/23/18 at 13:30 Glucose (Glutose) 15 gm Q15M PRN PO DECREASED GLUCOSE; Start 11/23/18 at 13:30 Glucose (Glutose) 22.5 gm Q15M PRN PO DECREASED GLUCOSE; Start 11/23/18 at 13:30 Dextrose (D50w Syringe) 25 ml Q15M PRN IV DECREASED GLUCOSE Last administered on 12/06/18at 05:44; Admin Dose 25 ML; Start 11/23/18 at 13:30 Dextrose (D50w Syringe) 50 ml Q15M PRN IV DECREASED GLUCOSE Last administered on 11/26/18at 13:03; Admin Dose 50 ML; Start 11/23/18 at 13:30 Glucagon (Glucagen) 1 mg Q15M PRN IM DECREASED GLUCOSE; Start 11/23/18 at 13:30 Glucose (Glutose) 15 gm Q15M PRN BUCCAL DECREASED GLUCOSE; Start 11/23/18 at 13:30 Propofol 100 ml @ 1.59 mls/hr Q12H IV Last administered on 12/05/18at 12:00; Admin Dose 0 MLS/HR; Start 11/24/18 at 00:00 Phenylephrine HCl 80 mg/Dextrose 250 ml @ 18.75 mls/ hr TITRATE IV ; Start 11/24/18 at 00:00 Alteplase, Recombinant (Cathflo (Activase)) 2 mg MAY REPEAT X1 PRN CATHETER IF CATHETER REMAINS OCCULUDED Last administered on 12/02/18at 15:47; Admin Dose 2 MG; Start 11/26/18 at 03:00 Albumin Human 100 ml @ 100 mls/hr DURING DIALYSIS PRN IV HYPOTENSION DURING HD Last administered on 12/04/18 09:19; Admin Dose 100 MLS/HR; Start 11/26/18 at 14:00 Diagnostic Test (Pha) (Accu-Chek) 1 ea Q4 XX Last administered on 12/06/18 05:45; Admin Dose 1 EA; Start 11/27/18 at 13:00 Levothyroxine Sodium (Synthroid) 75 mcg BEFORE BREAKFAST NGT Last administered on 12/06/18 05:42; Admin Dose 75 MCG; Start 11/29/18 at 07:00 Midazolam HCl 50 ml @ 1 mls/hr TITRATE IV Last administered on 11/30/18 05:15; Admin Dose 50 MLS/HR; Start 11/29/18 at 09:00 Sodium Chloride 154 meq/Dextrose 1,038.5 ml @ 30 mls/hr Q24H IV Last administered on 12/05/18 21:07; Admin Dose 30 MLS/HR; Start 11/30/18 at 10:00 Collagenase (Santyl) 1 applic DAILY TOP Last administered on 12/06/18 09:30; Admin Dose 1 APPLIC; Start 12/01/18 at 16:30 Amiodarone HCl (Cordarone) 200 mg BID NGT Last administered on 12/06/18 09:30; Admin Dose 200 MG; Start 12/03/18 at 21:00 Epoetin Margarito-epbx (Retacrit) 6,000 unit MoWeFr@1700 SC ; Start 12/07/18 at 17:00 Acetaminophen (Tylenol Liquid) 650 mg Q6H PRN NGT PAIN LEVEL 1-3 OR FEVER; Start 12/06/18 at 09:00 Famotidine (Pepcid) 20 mg DAILY NGT Last administered on 12/06/18at 09:32; Admin Dose 20 MG; Start 12/06/18 at 09:00 Folic Acid (Folic Acid) 1 mg DAILY NGT Last administered on 12/06/18at 09:30; Admin Dose 1 MG; Start 12/06/18 at 09:00 MARCO LOZADA NP Dec 06, 2018 10:27
[2018-12-06] MEDS: PROPOFOL 100 ML IV SCH (11:49)
--- NOTE | 2018-12-06 12:34 | PN ---
Date/Time of Note Date/Time of Note DATE: 12/06/18 TIME: 12:31 Assessment/Plan VTE Prophylaxis Risk score (from Ns)>0 risk: 11 SCD applied (from Ns): Yes Pharmacological prophylaxis: NA/contraindicated Pharm contraindication: liver dx Lines/Catheters IV Catheter Type (from [facility]): Mid Line Urinary Cath still in place: No (HD DEPENDENT) Assessment/Plan Hospital Course 58 yo female with ESRD, cirrhosis, DMII presents with hypoglycemia, leg infection. Suffered cardiac and respiratory arrest, now intubated Cardiac arrest, acute respiratory failure: -Mentation is improving - Continue vasopressors and mechanical ventilation per pulmonary -Continue to wean off vent as able Hypoglycemia: No history of diabetes and patient not on any insulin or sulfonylurea or any other diabetic medication - Continue IV dextrose and tube feeds Left lower extremity wound - Antibiotics per ID -Venous study was negative for DVT Paroxysmal A Fib: -Patient back in sinus rhythm, status post amiodarone drip -Continue oral amiodarone ESRD with fluid overload - HD per nephrology Pancytopenia with coagulopathy, thrombocytopenia: Patient had workup here during recent hospitalization. -Thrombocytopenia was thought to be secondary to HIT but may be related to liver disease -Per son, patient did receive platelet transfusion at [facility] -Picture of pancytopenia with macrocytic anemia and coagulopathy does appear consistent with liver disease, liver ultrasound does suggest early cirrhosis Hypothyroidism: Continue Synthroid History of pacemaker: No acute issue Ascites secondary to fluid overload and/or liver disease: Status post several paracenteses in the past -No indication for paracentesis at this time Chronic peritoneal dialysis: This is not being used. Not being removed because of the severe thrombocytopenia. This can be addressed at [facility] where she usually gets her care Failure to thrive: Patient is very cachectic -Nutrition consult Prophylaxis: SCDs DC planning: Patient with poor overall prognosis, continue to attempt weaning off vent Result Diagram: 12/06/18 0400 12/06/18 0710 Results 24hrs Laboratory Tests Test 12/05/18 13:11 12/05/18 17:27 12/05/18 21:08 12/06/18 00:38 Bedside Glucose 86 73 100 83 Test 12/06/18 04:00 12/06/18 04:10 12/06/18 05:00 12/06/18 05:42 White Blood 4.0 #L Count Red Blood Count 2.91 L Hemoglobin 8.7 L Hematocrit 25.1 L Mean Corpuscular 86.3 Volume Mean Corpuscular 29.9 Hemoglobin Mean Corpuscular 34.7 Hemoglobin Anh nt Red Cell 19.0 H Distribution Width Platelet Count 40 L Mean Platelet Volume Immature 0.300 Granulocytes % Neutrophils % Segmented 48 Neutrophils % (Manual) Band Neutrophils 15 H % (Manual) Lymphocytes % Lymphocytes % 25 (Manual) Monocytes % Monocytes % 7 (Manual) Eosinophils % Eosinophils % 3 (Manual) Basophils % Basophils % 1 (Manual) Myelocytes % 1 H (Manual) Nucleated Red 1 H Blood Cells % Immature 0.010 Granulocytes # Neutrophils # Neutrophils # 1.9 (Manual) Band Neutrophils 0.6 # Lymphocytes 1.0 (Manual) Lymphocytes # Monocytes # Monocytes # 0.2 L (Manual) Eosinophils # Basophils # Basophils # 0.0 (Manual) Myelocytes # 0.0 Nucleated Red Blood Cells # Platelet SIG DECREASED Estimate Giant Platelets 2 H Polychromasia 2+ Poikilocytosis 3+ Anisocytosis 2+ Macrocytosis 1+ Lactic Acid 2.4 *H Level Blood Gas Blood arterial Specimen Source Arterial Blood 12/06/2018 4:20: Date Drawn 48 AM Arterial Blood 7.530 H pH (Temp corrected) Arterial Blood 22.4 L pCO2 (Temp correct) Arterial Blood 89.5 pO2 (Temp corrected) Arterial Blood 18.3 L HCO3 Arterial Blood -3.2 L Base Excess Arterial Blood 96.6 Oxygen Saturatio n Morgan Test N/A Arterial Blood Right Brachial Gas Puncture Site Arterial 0.3 Blood Carboxyhem oglobin Arterial Blood 0.2 Methemoglobin Blood Gas A-a O2 98.1 H Differential Oxyhemoglobin 96.1 Percent Blood Gas 37.0 Temperature Blood Gas 20.0 Respiration Rate Blood Gas Actual 20 Respiration Rate Blood Gas VENT - AC Modality FiO2 30.0 Blood Gas Tidal 450.0 Volume Blood Gas Low 5.0 PEEP Setting Blood Gas UP Notified Whom Blood Gas 12/06/2018 4:41: Notified Time 11 AM Bedside Glucose 67 L Test 12/06/18 06:28 12/06/18 06:56 12/06/18 07:10 12/06/18 08:46 Bedside Glucose 129 171 130 Sodium Level 139 Potassium Level 3.5 Chloride Level 107 Carbon Dioxide 20 L Level Anion Gap 12 Blood Urea 48 H Nitrogen Creatinine 1.39 H Est Glomerular 39 L Filtrat Rate mL/min Glucose Level 122 # Calcium Level 7.8 L Test 12/06/18 12:20 Bedside Glucose 101 Subjective 24 Hr Interval Summary Subjective hx not possible: pt non-verbal Exam/Review of Systems Exam Vitals Vital Signs Date Temp Pulse Resp B/P (MAP) Pulse Ox O2 O2 Flow FiO2 Time Delivery Rate 12/06/18 70 20 107/65 100 Mechanical 10:45 (79) Ventilator 12/06/18 97.1 08:00 12/06/18 30 08:00 Intake and Output 12/05/18 12/05/18 12/06/18 1515:00 23:00 07:00 IntakeIntake Total 380 ml 371.830 ml 569.288 ml OutputOutput Total 0 ml 0 ml 400 ml BalanceBalance 380 ml 371.830 ml 169.288 ml Constitutional: non-verbal ENMT: intubated Respiratory: clear to auscultation Cardiovascular: regular rate and rhythm Gastrointestinal: soft; No distended Musculoskeletal: nl extremities to inspection Results Results 24hrs Laboratory Tests Test 12/05/18 13:11 12/05/18 17:27 12/05/18 21:08 12/06/18 00:38 Bedside Glucose 86 73 100 83 Test 12/06/18 04:00 12/06/18 04:10 12/06/18 05:00 12/06/18 05:42 White Blood 4.0 #L Count Red Blood Count 2.91 L Hemoglobin 8.7 L Hematocrit 25.1 L Mean Corpuscular 86.3 Volume Mean Corpuscular 29.9 Hemoglobin Mean Corpuscular 34.7 Hemoglobin Anh nt Red Cell 19.0 H Distribution Width Platelet Count 40 L Mean Platelet Volume Immature 0.300 Granulocytes % Neutrophils % Segmented 48 Neutrophils % (Manual) Band Neutrophils 15 H % (Manual) Lymphocytes % Lymphocytes % 25 (Manual) Monocytes % Monocytes % 7 (Manual) Eosinophils % Eosinophils % 3 (Manual) Basophils % Basophils % 1 (Manual) Myelocytes % 1 H (Manual) Nucleated Red 1 H Blood Cells % Immature 0.010 Granulocytes # Neutrophils # Neutrophils # 1.9 (Manual) Band Neutrophils 0.6 # Lymphocytes 1.0 (Manual) Lymphocytes # Monocytes # Monocytes # 0.2 L (Manual) Eosinophils # Basophils # Basophils # 0.0 (Manual) Myelocytes # 0.0 Nucleated Red Blood Cells # Platelet SIG DECREASED Estimate Giant Platelets 2 H Polychromasia 2+ Poikilocytosis 3+ Anisocytosis 2+ Macrocytosis 1+ Lactic Acid 2.4 *H Level Blood Gas Blood arterial Specimen Source Arterial Blood 12/06/2018 4:20: Date Drawn 48 AM Arterial Blood 7.530 H pH (Temp corrected) Arterial Blood 22.4 L pCO2 (Temp correct) Arterial Blood 89.5 pO2 (Temp corrected) Arterial Blood 18.3 L HCO3 Arterial Blood -3.2 L Base Excess Arterial Blood 96.6 Oxygen Saturatio n Morgan Test N/A Arterial Blood Right Brachial Gas Puncture Site Arterial 0.3 Blood Carboxyhem oglobin Arterial Blood 0.2 Methemoglobin Blood Gas A-a O2 98.1 H Differential Oxyhemoglobin 96.1 Percent Blood Gas 37.0 Temperature Blood Gas 20.0 Respiration Rate Blood Gas Actual 20 Respiration Rate Blood Gas VENT - AC Modality FiO2 30.0 Blood Gas Tidal 450.0 Volume Blood Gas Low 5.0 PEEP Setting Blood Gas UP Notified Whom Blood Gas 12/06/2018 4:41: Notified Time 11 AM Bedside Glucose 67 L Test 12/06/18 06:28 12/06/18 06:56 12/06/18 07:10 12/06/18 08:46 Bedside Glucose 129 171 130 Sodium Level 139 Potassium Level 3.5 Chloride Level 107 Carbon Dioxide 20 L Level Anion Gap 12 Blood Urea 48 H Nitrogen Creatinine 1.39 H Est Glomerular 39 L Filtrat Rate mL/min Glucose Level 122 # Calcium Level 7.8 L Test 12/06/18 12:20 Bedside Glucose 101 Medications Medication Current Medications Ondansetron HCl (Zofran Inj) 4 mg Q6H PRN IV NAUSEA AND/OR VOMITING Last a dministered on 12/04/18at 12:02; Admin Dose 4 MG; Start 11/21/18 at 05:30 Albuterol/ Ipratropium (Duoneb) 3 ml Q2H RESP THERAPY PRN NEB SHORTNESS OF BREATH; Start 11/21/18 at 05:30 Meropenem/Sodium Chloride 50 ml @ 100 mls/hr Q12 IVPB Last administered on 12/06/18at 09:31; Admin Dose 100 MLS/HR; Start 11/21/18 at 21:00 Norepinephrine 250 ml @ 1.875 mls/ hr TITRATE IV Last administered on 9at 00:52; Admin Dose 5.61 MLS/HR; Start 11/21/18 at 19:00 Caspofungin 50 mg/ Sodium Chloride 250 ml @ 250 mls/hr Q24H IVPB Last administered on 12/05/18at 13:12; Admin Dose 250 MLS/HR; Start 11/24/18 at 13:00 Miscellaneous Information 1 ea NOTE XX ; Start 11/23/18 at 13:30 Glucose (Glutose) 15 gm Q15M PRN PO DECREASED GLUCOSE; Start 11/23/18 at 13:30 Glucose (Glutose) 22.5 gm Q15M PRN PO DECREASED GLUCOSE; Start 11/23/18 at 13:30 Dextrose (D50w Syringe) 25 ml Q15M PRN IV DECREASED GLUCOSE Last administered on 12/06/18at 05:44; Admin Dose 25 ML; Start 11/23/18 at 13:30 Dextrose (D50w Syringe) 50 ml Q15M PRN IV DECREASED GLUCOSE Last administered on 11/26/18at 13:03; Admin Dose 50 ML; Start 11/23/18 at 13:30 Glucagon (Glucagen) 1 mg Q15M PRN IM DECREASED GLUCOSE; Start 11/23/18 at 13:30 Glucose (Glutose) 15 gm Q15M PRN BUCCAL DECREASED GLUCOSE; Start 11/23/18 at 13:30 Propofol 100 ml @ 1.59 mls/hr Q12H IV Last administered on 12/05/18at 12:00; Admin Dose 0 MLS/HR; Start 11/24/18 at 00:00 Phenylephrine HCl 80 mg/Dextrose 250 ml @ 18.75 mls/ hr TITRATE IV ; Start 11/24/18 at 00:00 Alteplase, Recombinant (Cathflo (Activase)) 2 mg MAY REPEAT X1 PRN CATHETER IF CATHETER REMAINS OCCULUDED Last administered on 12/02/18at 15:47; Admin Dose 2 MG; Start 11/26/18 at 03:00 Albumin Human 100 ml @ 100 mls/hr DURING DIALYSIS PRN IV HYPOTENSION DURING HD Last administered on 12/04/18at 09:19; Admin Dose 100 MLS/HR; Start 11/26/18 at 14:00 Diagnostic Test (Pha) (Accu-Chek) 1 ea Q4 XX Last administered on 12/06/18 05:45; Admin Dose 1 EA; Start 11/27/18 at 13:00 Levothyroxine Sodium (Synthroid) 75 mcg BEFORE BREAKFAST NGT Last administered on 12/06/18 05:42; Admin Dose 75 MCG; Start 11/29/18 at 07:00 Midazolam HCl 50 ml @ 1 mls/hr TITRATE IV Last administered on 11/30/18 05:15; Admin Dose 50 MLS/HR; Start 11/29/18 at 09:00 Sodium Chloride 154 meq/Dextrose 1,038.5 ml @ 30 mls/hr Q24H IV Last administered on 12/05/18 21:07; Admin Dose 30 MLS/HR; Start 11/30/18 at 10:00 Collagenase (Santyl) 1 applic DAILY TOP Last administered on 12/06/18 09:30; Admin Dose 1 APPLIC; Start 12/01/18 at 16:30 Amiodarone HCl (Cordarone) 200 mg BID NGT Last administered on 12/06/18 09:30; Admin Dose 200 MG; Start 12/03/18 at 21:00 Epoetin Margarito-epbx (Retacrit) 6,000 unit MoWeFr@1700 SC ; Start 12/07/18 at 17:00 Acetaminophen (Tylenol Liquid) 650 mg Q6H PRN NGT PAIN LEVEL 1-3 OR FEVER; Start 12/06/18 at 09:00 Famotidine (Pepcid) 20 mg DAILY NGT Last administered on 12/06/18 09:32; Admin Dose 20 MG; Start 12/06/18 at 09:00 Folic Acid (Folic Acid) 1 mg DAILY NGT Last administered on 12/06/18 09:30; Admin Dose 1 MG; Start 12/06/18 at 09:00 RIKA STOCK Dec 06, 2018 12:34
[2018-12-06] MEDS: ALBUMIN HUMAN 25% 100 ML IV PRN (14:10)
--- NOTE | 2018-12-06 14:12 | CONS ---
Consult Date/Type/Reason Admit Date/Time Nov 21, 2018 at 04:53 Initial Consult Date Type of Consultation: Pulm/CC Requesting Provider: RIKA STOCK Date/Time of Note DATE: 12/06/18 TIME: 14:11 Subjective No events. On HD. Awake but weak on the vent. Objective Vitals Vital Signs Date Temp Pulse Resp B/P (MAP) Pulse Ox O2 O2 Flow FiO2 Time Delivery Rate 12/06/18 76 14:00 12/06/18 20 89/62 (71) 100 Mechanical 13:45 Ventilator 12/06/18 97.7 12:00 12/06/18 30 08:00 Intake and Output 12/05/18 12/05/18 12/06/18 1414:59 22:59 06:59 IntakeIntake Total 410 ml 351.830 ml 523.678 ml OutputOutput Total 0 ml 0 ml 400 ml BalanceBalance 410 ml 351.830 ml 123.678 ml Exam HEENT: Neck supple; no JVD; no LAD CVS: RRR, S1 and S2 CHEST: Clear ABD: Soft, NT, + BS EXT: + cachexia NEURO: Diffusely weak with proximal > distal motor weakness Results/Medications Result Diagram: 12/06/18 0400 12/06/18 0710 Results 24 hrs Laboratory Tests Test 12/05/18 17:27 12/05/18 21:08 12/06/18 00:38 12/06/18 04:00 Bedside Glucose 73 100 83 White Blood 4.0 #L Count Red Blood Count 2.91 L Hemoglobin 8.7 L Hematocrit 25.1 L Mean Corpuscular 86.3 Volume Mean Corpuscular 29.9 Hemoglobin Mean Corpuscular 34.7 Hemoglobin Anh nt Red Cell 19.0 H Distribution Width Platelet Count 40 L Mean Platelet Volume Immature 0.300 Granulocytes % Neutrophils % Segmented 48 Neutrophils % (Manual) Band Neutrophils 15 H % (Manual) Lymphocytes % Lymphocytes % 25 (Manual) Monocytes % Monocytes % 7 (Manual) Eosinophils % Eosinophils % 3 (Manual) Basophils % Basophils % 1 (Manual) Myelocytes % 1 H (Manual) Nucleated Red 1 H Blood Cells % Immature 0.010 Granulocytes # Neutrophils # Neutrophils # 1.9 (Manual) Band Neutrophils 0.6 # Lymphocytes 1.0 (Manual) Lymphocytes # Monocytes # Monocytes # 0.2 L (Manual) Eosinophils # Basophils # Basophils # 0.0 (Manual) Myelocytes # 0.0 Nucleated Red Blood Cells # Platelet SIG DECREASED Estimate Giant Platelets 2 H Polychromasia 2+ Poikilocytosis 3+ Anisocytosis 2+ Macrocytosis 1+ Test 12/06/18 04:10 12/06/18 05:00 12/06/18 05:42 12/06/18 06:28 Lactic Acid 2.4 *H Level Blood Gas Blood arterial Specimen Source Arterial Blood 12/06/2018 4:20: Date Drawn 48 AM Arterial Blood 7.530 H pH (Temp corrected) Arterial Blood 22.4 L pCO2 (Temp correct) Arterial Blood 89.5 pO2 (Temp corrected) Arterial Blood 18.3 L HCO3 Arterial Blood -3.2 L Base Excess Arterial Blood 96.6 Oxygen Saturatio n Morgan Test N/A Arterial Blood Right Brachial Gas Puncture Site Arterial 0.3 Blood Carboxyhem oglobin Arterial Blood 0.2 Methemoglobin Blood Gas A-a O2 98.1 H Differential Oxyhemoglobin 96.1 Percent Blood Gas 37.0 Temperature Blood Gas 20.0 Respiration Rate Blood Gas Actual 20 Respiration Rate Blood Gas VENT - AC Modality FiO2 30.0 Blood Gas Tidal 450.0 Volume Blood Gas Low 5.0 PEEP Setting Blood Gas UP Notified Whom Blood Gas 12/06/2018 4:41: Notified Time 11 AM Bedside Glucose 67 L 129 Test 12/06/18 06:56 12/06/18 07:10 12/06/18 08:46 12/06/18 12:20 Bedside Glucose 171 130 101 Sodium Level 139 Potassium Level 3.5 Chloride Level 107 Carbon Dioxide 20 L Level Anion Gap 12 Blood Urea 48 H Nitrogen Creatinine 1.39 H Est Glomerular 39 L Filtrat Rate mL/min Glucose Level 122 # Calcium Level 7.8 L Home Meds Reported Medications Folic Acid* (Folic Acid*) 1 Mg Tablet, 1 MG PO DAILY, TAB 08/10/18 Amiodarone Hcl* (Amiodarone Hcl*) 200 Mg Tablet, 200 MG PO BID, #60 TAB 08/10/18 Pantoprazole* (Protonix*) 40 Mg Tablet.dr, 40 MG PO DAILY, TAB 08/10/18 Multivit/Ca Carb/B Cmplx/Fa* (Iram-Xiomara*) 1 Tab Tab, 1 TAB PO DAILY, TAB 08/10/18 Levothyroxine Sodium* (Levoxyl*) 75 Mcg Tablet, 75 MCG PO BEFORE BREAKFAST, #30 TAB 08/10/18 Medications Current Medications Ondansetron HCl (Zofran Inj) 4 mg Q6H PRN IV NAUSEA AND/OR VOMITING Last administered on 12/04/18at 12:02; Admin Dose 4 MG; Start 11/21/18 at 05:30 Albuterol/ Ipratropium (Duoneb) 3 ml Q2H RESP THERAPY PRN NEB SHORTNESS OF BREATH; Start 11/21/18 at 05:30 Meropenem/Sodium Chloride 50 ml @ 100 mls/hr Q12 IVPB Last administered on 12/06/18at 09:31; Admin Dose 100 MLS/HR; Start 11/21/18 at 21:00 Norepinephrine 250 ml @ 1.875 mls/ hr TITRATE IV Last administered on at 00:52; Admin Dose 5.61 MLS/HR; Start 11/21/18 at 19:00 Caspofungin 50 mg/ Sodium Chloride 250 ml @ 250 mls/hr Q24H IVPB Last administered on 12/05/18at 13:12; Admin Dose 250 MLS/HR; Start 11/24/18 at 13:00 Miscellaneous Information 1 ea NOTE XX ; Start 11/23/18 at 13:30 Glucose (Glutose) 15 gm Q15M PRN PO DECREASED GLUCOSE; Start 11/23/18 at 13:30 Glucose (Glutose) 22.5 gm Q15M PRN PO DECREASED GLUCOSE; Start 11/23/18 at 13:30 Dextrose (D50w Syringe) 25 ml Q15M PRN IV DECREASED GLUCOSE Last administered on 12/06/18at 05:44; Admin Dose 25 ML; Start 11/23/18 at 13:30 Dextrose (D50w Syringe) 50 ml Q15M PRN IV DECREASED GLUCOSE Last administered on 11/26/18at 13:03; Admin Dose 50 ML; Start 11/23/18 at 13:30 Glucagon (Glucagen) 1 mg Q15M PRN IM DECREASED GLUCOSE; Start 11/23/18 at 13:30 Glucose (Glutose) 15 gm Q15M PRN BUCCAL DECREASED GLUCOSE; Start 11/23/18 at 13:30 Propofol 100 ml @ 1.59 mls/hr Q12H IV Last administered on 12/05/18 12:00; Admin Dose 0 MLS/HR; Start 11/24/18 at 00:00 Phenylephrine HCl 80 mg/Dextrose 250 ml @ 18.75 mls/ hr TITRATE IV ; Start 11/24/18 at 00:00 Alteplase, Recombinant (Cathflo (Activase)) 2 mg MAY REPEAT X1 PRN CATHETER IF CATHETER REMAINS OCCULUDED Last administered on 12/02/18 15:47; Admin Dose 2 MG; Start 11/26/18 at 03:00 Albumin Human 100 ml @ 100 mls/hr DURING DIALYSIS PRN IV HYPOTENSION DURING HD Last administered on 12/04/18 09:19; Admin Dose 100 MLS/HR; Start 11/26/18 at 14:00 Diagnostic Test (Pha) (Accu-Chek) 1 ea Q4 XX Last administered on 12/06/18 05:45; Admin Dose 1 EA; Start 11/27/18 at 13:00 Levothyroxine Sodium (Synthroid) 75 mcg BEFORE BREAKFAST NGT Last administered on 12/06/18 05:42; Admin Dose 75 MCG; Start 11/29/18 at 07:00 Midazolam HCl 50 ml @ 1 mls/hr TITRATE IV Last administered on 11/30/18 05:15; Admin Dose 50 MLS/HR; Start 11/29/18 at 09:00 Sodium Chloride 154 meq/Dextrose 1,038.5 ml @ 30 mls/hr Q24H IV Last administered on 12/05/18 21:07; Admin Dose 30 MLS/HR; Start 11/30/18 at 10:00 Collagenase (Santyl) 1 applic DAILY TOP Last administered on 12/06/18 09:30; Admin Dose 1 APPLIC; Start 12/01/18 at 16:30 Amiodarone HCl (Cordarone) 200 mg BID NGT Last administered on 12/06/18 09:30; Admin Dose 200 MG; Start 12/03/18 at 21:00 Epoetin Margarito-epbx (Retacrit) 6,000 unit MoWeFr@1700 SC ; Start 12/07/18 at 17:00 Acetaminophen (Tylenol Liquid) 650 mg Q6H PRN NGT PAIN LEVEL 1-3 OR FEVER; Start 12/06/18 at 09:00 Famotidine (Pepcid) 20 mg DAILY NGT Last administered on 12/06/18at 09:32; Admin Dose 20 MG; Start 12/06/18 at 09:00 Folic Acid (Folic Acid) 1 mg DAILY NGT Last administered on 12/06/18at 09:30; Admin Dose 1 MG; Start 12/06/18 at 09:00 Assessment/Plan Assessment/Plan (Daily) IMP: 1. Septic Shock 2. Gram Negative Bacteremia 3. Vent Dependent Resp Failure 4. ESRD on HD 5. Cardiomyopathy 6. Severe Thrombocytopenia 7. Anemia RECS: 1. 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 Spoke with family about need for trach to facilitate long-term weaning 3. Titrate pressors to MAP > 65 mm Hg 4. HD/UF per Renal 5. Abx per ID 40 min cc time SHERON CAPUTO MD Dec 06, 2018 14:12
[2018-12-06] MEDS: CASPOFUNGIN 50 MG in SOD CHLORIDE 0.9% 250 ML IVPB SCH (17:10)
[2018-12-07] VITALS (104 sets, daily range): BP systolic 56–156; BP diastolic 40–120; PULSE 78–116; RESP 16–36
[2018-12-07] MEDS: ACCU-CHEK XX SCH ×6 (01:05→21:00)
[2018-12-07] MEDS: DEXTROSE 50% 50 ML SYRINGE IV PRN ×4 (01:06→23:58)
[2018-12-07] MEDS: SODIUM CHLORIDE 23.4% 154 MEQ in DEXTROSE 10% 1,000 ML IV SCH ×2 (03:50→23:22)
[2018-12-07] MEDS: NORepinephrine 8MG/250 ML (PMX 250 ML IV SCH ×3 (03:55→22:39)
[2018-12-07] MEDS ORDERED: POTASSIUM CHLORIDE (SR) 20 MEQ TAB PO STA (06:50)
[2018-12-07] MEDS: LEVOTHYROXINE 75 MCG TAB NGT SCH (08:58)
[2018-12-07] MEDS: BALSAM PERU/CASTOR OIL 60 GM TUBE TOP SCH ×2 (08:58→21:00)
[2018-12-07] MEDS: MIDODRINE 5 MG TAB GTB SCH ×3 (08:58→16:01)
[2018-12-07] MEDS: FAMOTIDINE 20 MG TAB NGT SCH (08:58)
[2018-12-07] MEDS: FOLIC ACID 1 MG TAB NGT SCH (08:59)
[2018-12-07] MEDS: AMIODARONE 200 MG TAB NGT SCH ×2 (08:59→23:56)
[2018-12-07] MEDS: COLLAGENASE 5 GM (UD JAR) TOP SCH (09:00)
--- NOTE | 2018-12-07 09:01 | PN ---
DATE: 12/07/2018 SUBJECTIVE: The patient is critically ill on pressor support. The patient had hemodialysis yesterda y, tolerated well. No other events noted. OBJECTIVE: VITAL SIGNS: Blood pressure is 126/71, respirations 20, pulse 92, temperature 98.7. HEENT: Head is normocephalic. NECK: Supple. HEART: Regular rate. LUNGS: Show diminished breath sounds at the base. ABDOMEN: Soft, nontender to palpation. No rebound or guarding. EXTREMITIES: Negative for clubbing, cyanosis. Positive edema, diffuse anasarca. DERMATOLOGIC: No rashes. MUSCULOSKELETAL: No joint effusion. NEUROLOGIC: No change in exam. MEDICATIONS: The patient's medications have been reviewed. LABORATORY DATA: From 12/07/2018 was reviewed. IMAGING STUDIES: Reviewed. MICROBIOLOGY: Cultures have been reviewed. ASSESSMENT AND PLAN: 1. End-stage renal disease. The patient had hemodialysis yesterday, tolerated well. Plan is for di alysis again tomorrow. 2. Volume overload. Continue ultrafiltration with dialysis as tolerated. 3. Septic shock secondary to pneumonia. Continue to wean off pressor support as tolerated. Continu e antibiotic therapy. 4. Anemia. Continue to monitor hemoglobin and hematocrit levels. Continue Epogen. 5. Mineral bone disorder. Continue to monitor calcium and phosphorus levels. 6. Hypernatremia. Continue to monitor. 7. Ventilator-dependent respiratory failure. Vent settings and ABG was reviewed. 8. Acute encephalopathy, etiology is toxic metabolic. 9. Ascites, status post paracentesis. 10. Hypothyroidism. Continue Synthroid. 11. Dysphagia. Continue tube feeding. 12. Arrhythmia. Continue amiodarone. 13. Hypoglycemia. The patient remains on dextrose drip. 14. Lower extremity wounds. Continue wound care. 15. Status post cardiopulmonary arrest. Dictated By: SARIKA JOINER DO NR/NTS Conf#: [id number] DID#: [id number] CC: LORRAINE JOHNSON MD; RIKA STOCK MD; MANDY BATES MD;*EndCC*
[2018-12-07] MEDS: MEROPENEM 500MG/50 ML (PMX) 50 ML IVPB SCH ×2 (09:02→22:33)
[2018-12-07] MEDS: ONDANSETRON 4 MG INJ IV PRN (09:06)
--- NOTE | 2018-12-07 09:22 | CONS ---
Consult Date/Type/Reason Admit Date/Time Nov 21, 2018 at 04:53 Initial Consult Date Type of Consult Pulmonary Requesting Provider: RIKA STOCK Date/Time of Note DATE: 12/07/18 TIME: 09:17 Subjective Patient awake alert this morning opens eyes follows commands continues vasopressor support. Objective Vital Signs Date Temp Pulse Resp B/P (MAP) Pulse Ox O2 O2 Flow FiO2 Time Delivery Rate 12/07/18 92 08:00 12/07/18 20 110/62 100 06:15 (78) 12/07/18 Mechanical 06:00 Ventilator 12/07/18 30 05:47 12/07/18 98.2 04:00 Intake and Output 12/06/18 12/06/18 12/07/18 1515:00 23:00 07:00 IntakeIntake Total 657.455 ml 872.25 ml 684.375 ml OutputOutput Total 300 ml 1600 ml 80 ml BalanceBalance 357.455 ml -727.75 ml 604.375 ml Exam GENERAL: Thin elderly cachectic lady on mechanical ventilation VITAL SIGNS: per chart NECK: Supple. No JVD or lymphadenopathy. CARDIAC EXAM: S1, S2. No added sounds or murmurs. CHEST: clear bilaterally, No added sounds, rales or wheezes ABDOMEN: Soft, nontender. No guarding or rebound. EXTREMITIES: No cyanosis, clubbing or edema. NEUROLOGIC: Generalized weakness. No focal deficits. Vent Setting Ventilator Support Mode: AC Fraction of Inspired Oxygen pe: 30 Positive End Expiratory Pressu: 5.0 Results/Medications Result Diagram: 12/07/18 0354 12/07/18 0354 Results 24 hrs Laboratory Tests Test 12/06/18 12:20 12/06/18 17:17 12/06/18 17:45 12/06/18 17:57 Bedside Glucose 101 43 *L 116 140 Test 12/06/18 20:53 12/07/18 00:45 12/07/18 01:09 12/07/18 03:54 Bedside Glucose 71 79 218 White Blood Count 4.9 # Red Blood Count 2.87 L Hemoglobin 8.7 L Hematocrit 25.3 L Mean Corpuscular 88.2 Volume Mean Corpuscular 30.3 Hemoglobin Mean Corpuscular 34.4 Hemoglobin Concen t Red Cell 19.9 H Distribution Width Platelet Count 39 L Mean Platelet Volume Immature 0.600 H Granulocytes % Neutrophils % Segmented 29 L Neutrophils % (Manual) Band Neutrophils 9 H % (Manual) Lymphocytes % Lymphocytes % 50 (Manual) Reactive 3 H Lymphocytes % (Manual) Monocytes % Monocytes % 5 (Manual) Eosinophils % Eosinophils % 1 (Manual) Basophils % Basophils % 1 (Manual) Promyelocytes % 2 H (Manual) Nucleated Red 0.0 Blood Cells % Immature 0.030 Granulocytes # Neutrophils # Neutrophils # 1.4 L (Manual) Band Neutrophils 0.4 # Lymphocytes 2.4 (Manual) Lymphocytes # Reactive 0.1 H Lymphocytes # Monocytes # Monocytes # 0.2 L (Manual) Eosinophils # Basophils # Basophils # 0.0 (Manual) Promyelocytes # 0.0 Nucleated Red Blood Cells # Platelet Estimate DECREASED Giant Platelets 5 H Anisocytosis 1+ Macrocytosis 1+ Ovalocytes 1+ Sodium Level 140 Potassium Level 3.2 L Chloride Level 105 Carbon Dioxide 25 Level Anion Gap 10 Blood Urea 30 #H Nitrogen Creatinine 1.00 Est Glomerular 57 L Filtrat Rate mL/min Glucose Level 113 Calcium Level 8.2 L Test 12/07/18 03:55 12/07/18 05:00 12/07/18 05:05 12/07/18 09:03 Lactic Acid Level 2.5 *H Blood Gas Blood arterial Specimen Source Arterial Blood 12/07/2018 4:15:0 Date Drawn 0 AM Arterial Blood pH 7.495 H (Temp corrected) Arterial Blood 26.8 L pCO2 (Temp correct) Arterial Blood 84.3 pO2 (Temp corrected) Arterial Blood 20.2 L HCO3 Arterial Blood -2.2 Base Excess Arterial Blood 95.9 Oxygen Saturation Morgan Test N/A Arterial Blood Right Brachial Gas Puncture Site Arterial 0.3 Blood Carboxyhemo globin Arterial Blood 0.4 Methemoglobin Blood Gas A-a O2 98.1 H Differential Oxyhemoglobin 95.2 Percent Blood Gas 37.0 Temperature Blood Gas 20.0 Respiration Rate Blood Gas Actual 20 Respiration Rate Blood Gas VENT - AC Modality FiO2 30.0 Blood Gas Tidal 450.0 Volume Blood Gas Low 5.0 PEEP Setting Blood Gas 35.0 Inspiratory Pressure Blood Gas LW Notified Whom Blood Gas 12/07/2018 4:28:0 Notified Time 0 AM Bedside Glucose 122 128 Medications Current Medications Ondansetron HCl (Zofran Inj) 4 mg Q6H PRN IV NAUSEA AND/OR VOMITING Last administered on 12/04/18at 12:02; Admin Dose 4 MG; Start 11/21/18 at 05:30 Albuterol/ Ipratropium (Duoneb) 3 ml Q2H RESP THERAPY PRN NEB SHORTNESS OF BREATH; Start 11/21/18 at 05:30 Meropenem/Sodium Chloride 50 ml @ 100 mls/hr Q12 IVPB Last administered on 12/06/18at 20:56; Admin Dose 100 MLS/HR; Start 11/21/18 at 21:00 Norepinephrine 250 ml @ 1.875 mls/ hr TITRATE IV Last administered on 12/07/18at 03:55; Admin Dose 11.25 MLS/HR; Start 11/21/18 at 19:00 Caspofungin 50 mg/ Sodium Chloride 250 ml @ 250 mls/hr Q24H IVPB Last administered on 12/06/18at 17:10; Admin Dose 250 MLS/HR; Start 11/24/18 at 13:00 Miscellaneous Information 1 ea NOTE XX ; Start 11/23/18 at 13:30 Glucose (Glutose) 15 gm Q15M PRN PO DECREASED GLUCOSE; Start 11/23/18 at 13:30 Glucose (Glutose) 22.5 gm Q15M PRN PO DECREASED GLUCOSE; Start 11/23/18 at 13:30 Dextrose (D50w Syringe) 25 ml Q15M PRN IV DECREASED GLUCOSE Last administered on 12/07/18at 01:06; Admin Dose 25 ML; Start 11/23/18 at 13:30 Dextrose (D50w Syringe) 50 ml Q15M PRN IV DECREASED GLUCOSE Last administered on 12/06/18at 17:22; Admin Dose 50 ML; Start 11/23/18 at 13:30 Glucagon (Glucagen) 1 mg Q15M PRN IM DECREASED GLUCOSE; Start 11/23/18 at 13:30 Glucose (Glutose) 15 gm Q15M PRN BUCCAL DECREASED GLUCOSE; Start 11/23/18 at 13:30 Propofol 100 ml @ 1.59 mls/hr Q12H IV Last administered on 12/05/18at 12:00; Admin Dose 0 MLS/HR; Start 11/24/18 at 00:00 Phenylephrine HCl 80 mg/Dextrose 250 ml @ 18.75 mls/ hr TITRATE IV ; Start 11/24/18 at 00:00 Alteplase, Recombinant (Cathflo (Activase)) 2 mg MAY REPEAT X1 PRN CATHETER IF CATHETER REMAINS OCCULUDED Last administered on 12/02/18 15:47; Admin Dose 2 MG; Start 11/26/18 at 03:00 Albumin Human 100 ml @ 100 mls/hr DURING DIALYSIS PRN IV HYPOTENSION DURING HD Last administered on 12/06/18 14:10; Admin Dose 100 MLS/HR; Start 11/26/18 at 1 4:00 Diagnostic Test (Pha) (Accu-Chek) 1 ea Q4 XX Last administered on 12/07/18 05:09; Admin Dose 1 EA; Start 11/27/18 at 13:00 Levothyroxine Sodium (Synthroid) 75 mcg BEFORE BREAKFAST NGT Last administered on 12/06/18 05:42; Admin Dose 75 MCG; Start 11/29/18 at 07:00 Midazolam HCl 50 ml @ 1 mls/hr TITRATE IV Last administered on 11/30/18 05:15; Admin Dose 50 MLS/HR; Start 11/29/18 at 09:00 Sodium Chloride 154 meq/Dextrose 1,038.5 ml @ 45 mls/hr Q23H5M IV Last administered on 12/07/18 03:50; Admin Dose 45 MLS/HR; Start 11/30/18 at 10:00 Collagenase (Santyl) 1 applic DAILY TOP Last administered on 12/06/18 09:30; Admin Dose 1 APPLIC; Start 12/01/18 at 16:30 Amiodarone HCl (Cordarone) 200 mg BID NGT Last administered on 12/06/18 20:56; Admin Dose 200 MG; Start 12/03/18 at 21:00 Epoetin Margarito-epbx (Retacrit) 6,000 unit MoWeFr@1700 SC ; Start 12/07/18 at 17:00 Acetaminophen (Tylenol Liquid) 650 mg Q6H PRN NGT PAIN LEVEL 1-3 OR FEVER; Start 12/06/18 at 09:00 Famotidine (Pepcid) 20 mg DAILY NGT Last administered on 12/06/18 09:32; Admin Dose 20 MG; Start 12/06/18 at 09:00 Folic Acid (Folic Acid) 1 mg DAILY NGT Last administered on 4/28/19at 09:30; Admin Dose 1 MG; Start 12/06/18 at 09:00 Midodrine (Proamatine) 5 mg TID@09,13,17 GTB ; Start 12/07/18 at 09:00 Assessment/Plan Hospital Course (Demo Recall) IMP: 1. Septic Shock 2. Gram Negative Bacteremia 3. Vent Dependent Resp Failure 4. ESRD on HD 5. Cardiomyopathy 6. Severe Thrombocytopenia 7. Anemia RECS: 1. Obtain NIF and VC; suspect a critical illness neuropathy/myopathy, attempt CPAP trial this morning. Family have per nursing staff agreed to tracheostomy if needed. 2. Spoke with family about need for trach to facilitate long-term weaning 3. Titrate pressors to MAP > 65 mm Hg 4. HD/UF per Renal 5. Abx per ID 40 min cc time NINA MORRIS MD, [facility] Dec 07, 2018 09:22
[2018-12-07] MEDS: PROPOFOL 100 ML IV SCH ×2 (10:38)
--- NOTE | 2018-12-07 12:01 | CONS ---
Assessment/Plan Assessment/Plan Hospital Course (Demo Recall) No acute changes patient is awake comfortable on vent, vital signs stable on Levophed drip no fevers WBC 4.9 platelets 39 bands 9 Chest x-ray this morning revealed mixed interstitial and alveolar infiltrates Antimicrobials: Cancidas, meropenem Microbiology: Blood culture on admission grew Klebsiella ESBL, repeat blood cultures negative, left thigh wound culture grew Klebsiella ESBL and Leah albicans Allergy: Zosyn, vancomycin Indwelling: Right upper thigh Davie catheter, left femoral triple-lumen catheter, endotracheal tube, orogastric tube, midline Physical examination: This is a chronically ill-appearing cachectic middle-aged woman who is laying comfortably in bed. Head atraumatic normocephalic. Neck is supple. Chest rise symmetrical. Breath sounds diminished bases. Heart: S1-S2, irreg. Abdomen distended. Bowel sounds hypoactive. Extremities with bilateral edema, cyanotic, multiple ecchymotic areas and bruises, left upper thigh dressing present is Assessment: 1. Sepsis with shock 2. Acute hypoxemic respiratory failure secondary to CHF exacerbation/probable pneumonia 3. Klebsiella ESBL bacteremia likely 2 to #4 4. 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 End-stage renal disease, hemodialysis dependent 6. Atrial fibrillation/PPM 7. Unstageable sacral decubitus 8. History of peritoneal dialysis with peritoneal dialysis still in place 9. Ascites status post paracentesis 3 weeks ago 10. Failure to thrive 11. Progressive thrombocytopenia 12. B mastoiditis and acute sinusitis per CT Plan: Remains unchanged, continue antibiotics, vent management per pulmonary Consultation Date/Type/Reason Admit Date/Time Nov 21, 2018 at 04:53 Initial Consult Date Type of Consult id Requesting Provider: RIAK STOCK Date/Time of Note DATE: 12/07/18 TIME: 12:00 Exam/Review of Systems Exam Vitals Vital Signs Date Temp Pulse Resp B/P (MAP) Pulse Ox O2 O2 Flow FiO2 Time Delivery Rate 12/07/18 107 20 103/62 100 Mechanical 10:00 (76) Ventilator 12/07/18 98.1 08:00 12/07/18 30 08:00 Intake and Output 12/06/18 12/06/18 12/07/18 1515:00 23:00 07:00 IntakeIntake Total 657.455 ml 872.25 ml 684.375 ml OutputOutput Total 300 ml 1600 ml 80 ml BalanceBalance 357.455 ml -727.75 ml 604.375 ml Results Result Diagram: 12/07/18 0354 12/07/18 0354 Results 24hrs Laboratory Tests Test 12/06/18 12:20 12/06/18 17:17 12/06/18 17:45 12/06/18 17:57 Bedside Glucose 101 43 *L 116 140 Test 12/06/18 20:53 12/07/18 00:45 12/07/18 01:09 12/07/18 03:54 Bedside Glucose 71 79 218 White Blood 4.9 # Count Red Blood Count 2.87 L Hemoglobin 8.7 L Hematocrit 25.3 L Mean Corpuscular 88.2 Volume Mean Corpuscular 30.3 Hemoglobin Mean Corpuscular 34.4 Hemoglobin Anh nt Red Cell 19.9 H Distribution Width Platelet Count 39 L Mean Platelet Volume Immature 0.600 H Granulocytes % Neutrophils % Segmented 29 L Neutrophils % (Manual) Band Neutrophils 9 H % (Manual) Lymphocytes % Lymphocytes % 50 (Manual) Reactive 3 H Lymphocytes % (Manual) Monocytes % Monocytes % 5 (Manual) Eosinophils % Eosinophils % 1 (Manual) Basophils % Basophils % 1 (Manual) Promyelocytes % 2 H (Manual) Nucleated Red 0.0 Blood Cells % Immature 0.030 Granulocytes # Neutrophils # Neutrophils # 1.4 L (Manual) Band Neutrophils 0.4 # Lymphocytes 2.4 (Manual) Lymphocytes # Reactive 0.1 H Lymphocytes # Monocytes # Monocytes # 0.2 L (Manual) Eosinophils # Basophils # Basophils # 0.0 (Manual) Promyelocytes # 0.0 Nucleated Red Blood Cells # Platelet DECREASED Estimate Giant Platelets 5 H Anisocytosis 1+ Macrocytosis 1+ Ovalocytes 1+ Sodium Level 140 Potassium Level 3.2 L Chloride Level 105 Carbon Dioxide 25 Level Anion Gap 10 Blood Urea 30 #H Nitrogen Creatinine 1.00 Est Glomerular 57 L Filtrat Rate mL/min Glucose Level 113 Calcium Level 8.2 L Test 12/07/18 03:55 12/07/18 05:00 12/07/18 05:05 12/07/18 09:03 Lactic Acid 2.5 *H Level Blood Gas Blood arterial Specimen Source Arterial Blood 12/07/2018 4:15: Date Drawn 00 AM Arterial Blood 7.495 H pH (Temp corrected) Arterial Blood 26.8 L pCO2 (Temp correct) Arterial Blood 84.3 pO2 (Temp corrected) Arterial Blood 20.2 L HCO3 Arterial Blood -2.2 Base Excess Arterial Blood 95.9 Oxygen Saturatio n Morgan Test N/A Arterial Blood Right Brachial Gas Puncture Site Arterial 0.3 Blood Carboxyhem oglobin Arterial Blood 0.4 Methemoglobin Blood Gas A-a O2 98.1 H Differential Oxyhemoglobin 95.2 Percent Blood Gas 37.0 Temperature Blood Gas 20.0 Respiration Rate Blood Gas Actual 20 Respiration Rate Blood Gas VENT - AC Modality FiO2 30.0 Blood Gas Tidal 450.0 Volume Blood Gas Low 5.0 PEEP Setting Blood Gas 35.0 Inspiratory Pressure Blood Gas LW Notified Whom Blood Gas 12/07/2018 4:28: Notified Time 00 AM Bedside Glucose 122 128 Test 12/07/18 11:00 Blood Gas Blood arterial Specimen Source Arterial Blood 12/07/2018 11:08 Date Drawn :50 AM Arterial Blood 7.373 pH (Temp corrected) Arterial Blood 43.4 pCO2 (Temp correct) Arterial Blood 76.3 L pO2 (Temp corrected) Arterial Blood 24.7 HCO3 Arterial Blood -0.6 Base Excess Arterial Blood 93.9 L Oxygen Saturatio n Morgan Test N/A Arterial Blood Right Brachial Gas Puncture Site Arterial 0.2 Blood Carboxyhem oglobin Arterial Blood 0.4 Methemoglobin Blood Gas A-a O2 86.6 H Differential Oxyhemoglobin 93.3 Percent Blood Gas 37.0 Temperature Blood Gas Actual 38 Respiration Rate Blood Gas VENT - CPAP Modality FiO2 30.0 Blood Gas Low 5.0 PEEP Setting Blood Gas 10 Pressure Support Blood Gas TM Notified Whom Blood Gas 12/07/2018 11:16 Notified Time :33 AM Medications Medication Current Medications Ondansetron HCl (Zofran Inj) 4 mg Q6H PRN IV NAUSEA AND/OR VOMITING Last administered on 12/07/18at 09:06; Admin Dose 4 MG; Start 11/21/18 at 05:30 Albuterol/ Ipratropium (Duoneb) 3 ml Q2H RESP THERAPY PRN NEB SHORTNESS OF BREATH; Start 11/21/18 at 05:30 Meropenem/Sodium Chloride 50 ml @ 100 mls/hr Q12 IVPB Last administered on at 09:02; Admin Dose 100 MLS/HR; Start 11/21/18 at 21:00 Norepinephrine 250 ml @ 1.875 mls/ hr TITRATE IV Last administered on 12/07/18at 03:55; Admin Dose 11.25 MLS/HR; Start 11/21/18 at 19:00 Caspofungin 50 mg/ Sodium Chloride 250 ml @ 250 mls/hr Q24H IVPB Last administered on 12/06/18 17:10; Admin Dose 250 MLS/HR; Start 11/24/18 at 13:00 Miscellaneous Information 1 ea NOTE XX ; Start 11/23/18 at 13:30 Glucose (Glutose) 15 gm Q15M PRN PO DECREASED GLUCOSE; Start 11/23/18 at 13:30 Glucose (Glutose) 22.5 gm Q15M PRN PO DECREASED GLUCOSE; Start 11/23/18 at 13:30 Dextrose (D50w Syringe) 25 ml Q15M PRN IV DECREASED GLUCOSE Last administered on 12/07/18 01:06; Admin Dose 25 ML; Start 11/23/18 at 13:30 Dextrose (D50w Syringe) 50 ml Q15M PRN IV DECREASED GLUCOSE Last administered on 12/06/18at 17:22; Admin Dose 50 ML; Start 11/23/18 at 13:30 Glucagon (Glucagen) 1 mg Q15M PRN IM DECREASED GLUCOSE; Start 11/23/18 at 13:30 Glucose (Glutose) 15 gm Q15M PRN BUCCAL DECREASED GLUCOSE; Start 11/23/18 at 13:30 Propofol 100 ml @ 1.59 mls/hr Q12H IV Last administered on 12/05/18at 12:00; Admin Dose 0 MLS/HR; Start 11/24/18 at 00:00 Phenylephrine HCl 80 mg/Dextrose 250 ml @ 18.75 mls/ hr TITRATE IV ; Start 11/24/18 at 00:00 Alteplase, Recombinant (Cathflo (Activase)) 2 mg MAY REPEAT X1 PRN CATHETER IF CATHETER REMAINS OCCULUDED Last administered on 12/02/18at 15:47; Admin Dose 2 MG; Start 11/26/18 at 03:00 Albumin Human 100 ml @ 100 mls/hr DURING DIALYSIS PRN IV HYPOTENSION DURING HD Last administered on 12/06/18 14:10; Admin Dose 100 MLS/HR; Start 11/26/18 at 14:00 Diagnostic Test (Pha) (Accu-Chek) 1 ea Q4 XX Last administered on 12/07/18 09:52; Admin Dose 1 EA; Start 11/27/18 at 13:00 Levothyroxine Sodium (Synthroid) 75 mcg BEFORE BREAKFAST NGT Last administered on 12/07/18 08:58; Admin Dose 75 MCG; Start 11/29/18 at 07:00 Midazolam HCl 50 ml @ 1 mls/hr TITRATE IV Last administered on 11/30/18 05:15; Admin Dose 50 MLS/HR; Start 11/29/18 at 09:00 Sodium Chloride 154 meq/Dextrose 1,038.5 ml @ 45 mls/hr Q23H5M IV Last administered on 12/07/18 03:50; Admin Dose 45 MLS/HR; Start 11/30/18 at 10:00 Collagenase (Santyl) 1 applic DAILY TOP Last administered on 12/06/18 09:30; Admin Dose 1 APPLIC; Start 12/01/18 at 16:30 Amiodarone HCl (Cordarone) 200 mg BID NGT Last administered on 12/07/18 08:59; Admin Dose 200 MG; Start 12/03/18 at 21:00 Epoetin Margarito-epbx (Retacrit) 6,000 unit MoWeFr@1700 SC ; Start 12/07/18 at 17:00 Acetaminophen (Tylenol Liquid) 650 mg Q6H PRN NGT PAIN LEVEL 1-3 OR FEVER; Start 12/06/18 at 09:00 Famotidine (Pepcid) 20 mg DAILY NGT Last administered on 12/07/18 08:58; Admin Dose 20 MG; Start 12/06/18 at 09:00 Folic Acid (Folic Acid) 1 mg DAILY NGT Last administered on 12/07/18 08:59; Admin Dose 1 MG; Start 12/06/18 at 09:00 Midodrine (Proamatine) 5 mg TID@,,17 GTB Last administered on 12/07/18 08:58; Admin Dose 5 MG; Start 12/07/18 at 09:00 KELSIE ELY NP Dec 07, 2018 12:01
--- NOTE | 2018-12-07 12:16 | CONS ---
Assessment/Plan Assessment/Plan Hospital Course 58 yo F with hx of afib, ESRD on peritoneal dialysis, and other comorbidities... who initially presented with ams in the context of hypotension and severe hypoglycemia. Now s/p PEA arrest on 11/24; Targeted temperature therapy was deferred.. She remains protractedly encephalopathic, for which neurology is consulted. The clinical picture suggests an acute toxic-metabolic (?on chronic) encephalopathy. HCT is reassuringly without obvious acute intracranial pathology. CXR + PNA Na 127, phos 6.9 ammonia, TSH, B12 wnl plt 24 P: OK to defer MRI brain for now Cont medical management per primary [place] as able Cont to limit sedating medications where possible PT/OT when able Will follow Consultation Date/Type/Reason Admit Date/Time Nov 21, 2018 at 04:53 Type of Consult Neurology Reason for Consultation ams Requesting Provider: RIKA STOCK Date/Time of Note DATE: 12/07/18 TIME: 12:16 24 HR Interval Summary Free Text/Dictation Continues critical care. On CPAP trial. Pt appears to be tolerating well. Subjective hx not possible: pt non-verbal Exam Vital Signs Vitals Vital Signs Date Temp Pulse Resp B/P (MAP) Pulse Ox O2 O2 Flow FiO2 Time Delivery Rate 12/07/18 107 20 103/62 100 Mechanical 10:00 (76) Ventilator 12/07/18 98.1 08:00 12/07/18 30 08:00 Intake and Output 12/06/18 12/06/18 12/07/18 1414:59 22:59 06:59 IntakeIntake Total 644.315 ml 887.25 ml 693.750 ml OutputOutput Total 300 ml 1600 ml 80 ml BalanceBalance 344.315 ml -712.75 ml 613.750 ml Exam PE: Gen Appearance: No Apparent Distress HEENT: Intubated Cardiovascular: Regular rate Abdomen: Soft Extremities: Dry NE: The patient was awake and alert. Nonverbal d/t ETT. Able to gesture and nod appropriately to yes/no questions. Able to follow simple axial and appendicular commands. Cranial nerve examination was limited by mental status. Pupils were equal and reactive to light. There was no afferent pupillary defect. Funduscopic examination was limited. Face was grossly symmetric, w/ present corneal and cough reflexes. Tone was normal. Muscle bulk was severely diminished. I did not see fasciculations. The patient was spontaneously moving her UE; was weak in her LE Coordination and gait testing was limited by mental status. Arm and leg reflexes were within normal limits and symmetric. Alvarez's sign was absent. Plantar responses were flexor. HOLLY FISHER NP Dec 07, 2018 12:16
--- NOTE | 2018-12-07 13:49 | EN ---
Date/Time of Note Date/Time of Note DATE: 12/07/18 TIME: 13:47 ER Progress Note I was called by the ICU to reintubated patient. Patient was extubated at 12:50 PM today. The patient then began having respiratory distress again. They called me for reintubation. Patient is in no acute distress. Endotracheal Intubation by me: Pre assessment performed. See preceding note for details. Pre-oxygenation performed with 100% oxygen RSI: Performed w/o complication or hypoxic events. Medications as ordered. Blade: MAC for stores ET Tube: 7.0 cm Depth: 1 cm at the lip Intubation confirmed by colorimetric CO2, equal breath sounds, quiet over the stomach. ALEKSANDAR IJ DO Dec 07, 2018 13:49
--- NOTE | 2018-12-07 15:20 | PN ---
Date/Time of Note Date/Time of Note DATE: 12/07/18 TIME: 15:19 Assessment/Plan VTE Prophylaxis Risk score (from Nsg)>0 risk: 13 SCD applied (from Nsg): Yes Pharmacological prophylaxis: heparin Lines/Catheters IV Catheter Type (from Nrsg): Mid Line Urinary Cath still in place: No Assessment/Plan Hospital Course Intubated sedated Chronically ill appearing Lungs clear Distended belly, firm masses Peripheral edema present LUE wound wrapped 58 yo female with ESRD, cirrohsihs, DMII presents with hypoglycemia, leg infection. Suffered cardiac and respiratory arrest, now intubated Acute respiratory failure: - MV per pulm - Will need trach Hypoglycemia: No history of diabetes and patient not on any insulin or sulfonylurea or any other diabetic medication - Continue IV dextrose and tube feeds Left lower extremity wound - Antibiotics per ID -Venous study was negative for DVT A Fib: - Amiodarone ESRD with fluid overload - HD per nephrology Pancytopenia with coagulopathy, thrombocytopenia: Patient had workup here during recent hospitalization. -Thrombocytopenia was thought to be secondary to HIT but may be related to liver disease -Per son, patient did receive platelet transfusion at [facility] -Picture of pancytopenia with macrocytic anemia and coagulopathy does appear consistent with liver disease, await liver ultrasound Hypothyroidism: Continue Synthroid History of pacemaker: No acute issue Ascites secondary to fluid overload and/or liver disease: Status post paracentesis 3 weeks ago with removal of 4.5 L - s/p paracentesis, in addition patient's blood pressure is low 11. Chronic peritoneal dialysis: This is not being used. Not being removed because of the severe thrombocytopenia. This can be addressed at [facility] where she usually gets her care 12. Failure to thrive: Patient is very cachectic -Nutrition consult Prophylaxis: SCDs DC planning: Poor prognosis. Continue goals of care discussions with family. So far unwilling to consider withdrawal of care. Very upset to be asked about it and don't want us to bring it up again Result Diagram: 12/07/18 0354 12/07/18 0354 Results 24hrs Laboratory Tests Test 12/06/18 17:17 12/06/18 17:45 12/06/18 17:57 12/06/18 20:53 Bedside Glucose 43 *L 116 140 71 Test 12/07/18 00:45 12/07/18 01:09 12/07/18 03:54 12/07/18 03:55 Bedside Glucose 79 218 White Blood 4.9 # Count Red Blood Count 2.87 L Hemoglobin 8.7 L Hematocrit 25.3 L Mean Corpuscular 88.2 Volume Mean Corpuscular 30.3 Hemoglobin Mean Corpuscular 34.4 Hemoglobin Anh nt Red Cell 19.9 H Distribution Width Platelet Count 39 L Mean Platelet Volume Immature 0.600 H Granulocytes % Neutrophils % Segmented 29 L Neutrophils % (Manual) Band Neutrophils 9 H % (Manual) Lymphocytes % Lymphocytes % 50 (Manual) Reactive 3 H Lymphocytes % (Manual) Monocytes % Monocytes % 5 (Manual) Eosinophils % Eosinophils % 1 (Manual) Basophils % Basophils % 1 (Manual) Promyelocytes % 2 H (Manual) Nucleated Red 0.0 Blood Cells % Immature 0.030 Granulocytes # Neutrophils # Neutrophils # 1.4 L (Manual) Band Neutrophils 0.4 # Lymphocytes 2.4 (Manual) Lymphocytes # Reactive 0.1 H Lymphocytes # Monocytes # Monocytes # 0.2 L (Manual) Eosinophils # Basophils # Basophils # 0.0 (Manual) Promyelocytes # 0.0 Nucleated Red Blood Cells # Platelet DECREASED Estimate Giant Platelets 5 H Anisocytosis 1+ Macrocytosis 1+ Ovalocytes 1+ Sodium Level 140 Potassium Level 3.2 L Chloride Level 105 Carbon Dioxide 25 Level Anion Gap 10 Blood Urea 30 #H Nitrogen Creatinine 1.00 Est Glomerular 57 L Filtrat Rate mL/min Glucose Level 113 Calcium Level 8.2 L Lactic Acid 2.5 *H Level Test 12/07/18 05:00 12/07/18 05:05 12/07/18 09:03 12/07/18 11:00 Blood Gas Blood arterial Blood arterial Specimen Source Arterial Blood 12/07/2018 4:15: 12/07/2018 11:08 Date Drawn 00 AM :50 AM Arterial Blood 7.495 H 7.373 pH (Temp corrected) Arterial Blood 26.8 L 43.4 pCO2 (Temp correct) Arterial Blood 84.3 76.3 L pO2 (Temp corrected) Arterial Blood 20.2 L 24.7 HCO3 Arterial Blood -2.2 -0.6 Base Excess Arterial Blood 95.9 93.9 L Oxygen Saturatio n Morgan Test N/A N/A Arterial Blood Right Brachial Right Brachial Gas Puncture Site Arterial 0.3 0.2 Blood Carboxyhem oglobin Arterial Blood 0.4 0.4 Methemoglobin Blood Gas A-a O2 98.1 H 86.6 H Differential Oxyhemoglobin 95.2 93.3 Percent Blood Gas 37.0 37.0 Temperature Blood Gas 20.0 Respiration Rate Blood Gas Actual 20 38 Respiration Rate Blood Gas VENT - AC VENT - CPAP Modality FiO2 30.0 30.0 Blood Gas Tidal 450.0 Volume Blood Gas Low 5.0 5.0 PEEP Setting Blood Gas 35.0 Inspiratory Pressure Blood Gas LW TM Notified Whom Blood Gas 12/07/2018 4:28: 12/07/2018 11:16 Notified Time 00 AM :33 AM Bedside Glucose 122 128 Blood Gas 10 Pressure Support Test 12/07/18 14:31 Bedside Glucose 97 Subjective 24 Hr Interval Summary Free Text/Dictation Extubated briefly, failed spontaneous breathing and reintubated Exam/Review of Systems Exam Vitals Vital Signs Date Temp Pulse Resp B/P (MAP) Pulse Ox O2 O2 Flow FiO2 Time Delivery Rate 12/07/18 100 24 153/120 100 Mechanical 15:00 (131) Ventilator 12/07/18 100 13:45 12/07/18 6.0 12:50 12/07/18 98.2 12:00 Intake and Output 12/06/18 12/06/18 12/07/18 1515:00 23:00 07:00 IntakeIntake Total 657.455 ml 872.25 ml 714.375 ml OutputOutput Total 300 ml 1600 ml 80 ml BalanceBalance 357.455 ml -727.75 ml 634.375 ml Results Results 24hrs Laboratory Tests Test 12/06/18 17:17 12/06/18 17:45 12/06/18 17:57 12/06/18 20:53 Bedside Glucose 43 *L 116 140 71 Test 12/07/18 00:45 12/07/18 01:09 12/07/18 03:54 12/07/18 03:55 Bedside Glucose 79 218 White Blood 4.9 # Count Red Blood Count 2.87 L Hemoglobin 8.7 L Hematocrit 25.3 L Mean Corpuscular 88.2 Volume Mean Corpuscular 30.3 Hemoglobin Mean Corpuscular 34.4 Hemoglobin Anh nt Red Cell 19.9 H Distribution Width Platelet Count 39 L Mean Platelet Volume Immature 0.600 H Granulocytes % Neutrophils % Segmented 29 L Neutrophils % (Manual) Band Neutrophils 9 H % (Manual) Lymphocytes % Lymphocytes % 50 (Manual) Reactive 3 H Lymphocytes % (Manual) Monocytes % Monocytes % 5 (Manual) Eosinophils % Eosinophils % 1 (Manual) Basophils % Basophils % 1 (Manual) Promyelocytes % 2 H (Manual) Nucleated Red 0.0 Blood Cells % Immature 0.030 Granulocytes # Neutrophils # Neutrophils # 1.4 L (Manual) Band Neutrophils 0.4 # Lymphocytes 2.4 (Manual) Lymphocytes # Reactive 0.1 H Lymphocytes # Monocytes # Monocytes # 0.2 L (Manual) Eosinophils # Basophils # Basophils # 0.0 (Manual) Promyelocytes # 0.0 Nucleated Red Blood Cells # Platelet DECREASED Estimate Giant Platelets 5 H Anisocytosis 1+ Macrocytosis 1+ Ovalocytes 1+ Sodium Level 140 Potassium Level 3.2 L Chloride Level 105 Carbon Dioxide 25 Level Anion Gap 10 Blood Urea 30 #H Nitrogen Creatinine 1.00 Est Glomerular 57 L Filtrat Rate mL/min Glucose Level 113 Calcium Level 8.2 L Lactic Acid 2.5 *H Level Test 12/07/18 05:00 12/07/18 05:05 12/07/18 09:03 12/07/18 11:00 Blood Gas Blood arterial Blood arterial Specimen Source Arterial Blood 12/07/2018 4:15: 12/07/2018 11:08 Date Drawn 00 AM :50 AM Arterial Blood 7.495 H 7.373 pH (Temp corrected) Arterial Blood 26.8 L 43.4 pCO2 (Temp correct) Arterial Blood 84.3 76.3 L pO2 (Temp corrected) Arterial Blood 20.2 L 24.7 HCO3 Arterial Blood -2.2 -0.6 Base Excess Arterial Blood 95.9 93.9 L Oxygen Saturatio n Morgan Test N/A N/A Arterial Blood Right Brachial Right Brachial Gas Puncture Site Arterial 0.3 0.2 Blood Carboxyhem oglobin Arterial Blood 0.4 0.4 Methemoglobin Blood Gas A-a O2 98.1 H 86.6 H Differential Oxyhemoglobin 95.2 93.3 Percent Blood Gas 37.0 37.0 Temperature Blood Gas 20.0 Respiration Rate Blood Gas Actual 20 38 Respiration Rate Blood Gas VENT - AC VENT - CPAP Modality FiO2 30.0 30.0 Blood Gas Tidal 450.0 Volume Blood Gas Low 5.0 5.0 PEEP Setting Blood Gas 35.0 Inspiratory Pressure Blood Gas LW TM Notified Whom Blood Gas 12/07/2018 4:28: 12/07/2018 11:16 Notified Time 00 AM :33 AM Bedside Glucose 122 128 Blood Gas 10 Pressure Support Test 12/07/18 14:31 Bedside Glucose 97 Medications Medication Current Medications Ondansetron HCl (Zofran Inj) 4 mg Q6H PRN IV NAUSEA AND/OR VOMITING Last administered on 12/07/18at 09:06; Admin Dose 4 MG; Start 11/21/18 at 05:30 Albuterol/ Ipratropium (Duoneb) 3 ml Q2H RESP THERAPY PRN NEB SHORTNESS OF BREATH; Start 11/21/18 at 05:30 Meropenem/Sodium Chloride 50 ml @ 100 mls/hr Q12 IVPB Last administered on 12/07/18at 09:02; Admin Dose 100 MLS/HR; Start 11/21/18 at 21:00 Norepinephrine 250 ml @ 1.875 mls/ hr TITRATE IV Last administered on 12/07/18at 03:55; Admin Dose 11.25 MLS/HR; Start 11/21/18 at 19:00 Caspofungin 50 mg/ Sodium Chloride 250 ml @ 250 mls/hr Q24H IVPB Last adminis tered on 12/06/18at 17:10; Admin Dose 250 MLS/HR; Start 11/24/18 at 13:00 Miscellaneous Information 1 ea NOTE XX ; Start 11/23/18 at 13:30 Glucose (Glutose) 15 gm Q15M PRN PO DECREASED GLUCOSE; Start 11/23/18 at 13:30 Glucose (Glutose) 22.5 gm Q15M PRN PO DECREASED GLUCOSE; Start 11/23/18 at 13:30 Dextrose (D50w Syringe) 25 ml Q15M PRN IV DECREASED GLUCOSE Last administered on 12/07/18at 01:06; Admin Dose 25 ML; Start 11/23/18 at 13:30 Dextrose (D50w Syringe) 50 ml Q15M PRN IV DECREASED GLUCOSE Last administered on 12/06/18at 17:22; Admin Dose 50 ML; Start 11/23/18 at 13:30 Glucagon (Glucagen) 1 mg Q15M PRN IM DECREASED GLUCOSE; Start 11/23/18 at 13:30 Glucose (Glutose) 15 gm Q15M PRN BUCCAL DECREASED GLUCOSE; Start 11/23/18 at 13:30 Propofol 100 ml @ 1.59 mls/hr Q12H IV Last administered on 12/05/18 12:00; Admin Dose 0 MLS/HR; Start 11/24/18 at 00:00 Phenylephrine HCl 80 mg/Dextrose 250 ml @ 18.75 mls/ hr TITRATE IV ; Start 11/24/18 at 00:00 Alteplase, Recombinant (Cathflo (Activase)) 2 mg MAY REPEAT X1 PRN CATHETER IF CATHETER REMAINS OCCULUDED Last administered on 12/02/18 15:47; Admin Dose 2 MG; Start 11/26/18 at 03:00 Albumin Human 100 ml @ 100 mls/hr DURING DIALYSIS PRN IV HYPOTENSION DURING HD Last administered on 12/06/18 14:10; Admin Dose 100 MLS/HR; Start 11/26/18 at 14:00 Diagnostic Test (Pha) (Accu-Chek) 1 ea Q4 XX Last administered on 12/07/18 13:00; Admin Dose 1 EA; Start 11/27/18 at 13:00 Levothyroxine Sodium (Synthroid) 75 mcg BEFORE BREAKFAST NGT Last administered on 12/07/18 08:58; Admin Dose 75 MCG; Start 11/29/18 at 07:00 Midazolam HCl 50 ml @ 1 mls/hr TITRATE IV Last administered on 11/30/18 05:15; Admin Dose 50 MLS/HR; Start 11/29/18 at 09:00 Sodium Chloride 154 meq/Dextrose 1,038.5 ml @ 45 mls/hr Q23H5M IV Last administered on 12/07/18 03:50; Admin Dose 45 MLS/HR; Start 11/30/18 at 10:00 Collagenase (Santyl) 1 applic DAILY TOP Last administered on 12/06/18 09:30; Admin Dose 1 APPLIC; Start 12/01/18 at 16:30 Amiodarone HCl (Cordarone) 200 mg BID NGT Last administered on 12/07/18 08:59; Admin Dose 200 MG; Start 12/03/18 at 21:00 Epoetin Margarito-epbx (Retacrit) 6,000 unit MoWeFr@1700 SC ; Start 12/07/18 at 17:00 Acetaminophen (Tylenol Liquid) 650 mg Q6H PRN NGT PAIN LEVEL 1-3 OR FEVER; Start 12/06/18 at 09:00 Famotidine (Pepcid) 20 mg DAILY NGT Last administered on 12/07/18at 08:58; Admin Dose 20 MG; Start 12/06/18 at 09:00 Folic Acid (Folic Acid) 1 mg DAILY NGT Last administered on 12/07/18at 08:59; Admin Dose 1 MG; Start 12/06/18 at 09:00 Midodrine (Proamatine) 5 mg TID@,,17 GTB Last administered on 12/07/18 08:58; Admin Dose 5 MG; Start 12/07/18 at 09:00 JOSLYN LANDRUM MD Dec 07, 2018 15:20
[2018-12-07] MEDS: CASPOFUNGIN 50 MG in SOD CHLORIDE 0.9% 250 ML IVPB SCH (17:01)
[2018-12-07] MEDS: EPOETIN ALFA-EPBX (ESRD) 3,000 UNIT/ML VIAL SC SCH (17:02)
[2018-12-07] MEDS ORDERED: SUCCINYLCHOLINE CHLORIDE 100 MG/5 ML SYG IV SCH (21:00)
[2018-12-07] MEDS ORDERED: ALTEPLASE (CATHFLO) 2 MG INJ CATHETER ONE (23:30)
[2018-12-07] MEDS: POTASSIUM CHLORIDE 50 ML IVPB SCH (23:58)
[2018-12-08] VITALS (108 sets, daily range): BP systolic 56–154; BP diastolic 41–96; PULSE 88–114; RESP 13–37
[2018-12-08] MEDS: ACCU-CHEK XX SCH ×23 (00:42→23:11)
[2018-12-08] MEDS: DEXTROSE 50% 50 ML SYRINGE IV PRN ×5 (02:04→23:12)
[2018-12-08] MEDS: POTASSIUM CHLORIDE 50 ML IVPB SCH (03:11)
[2018-12-08] MEDS: NORepinephrine 8MG/250 ML (PMX 250 ML IV SCH (04:49)
[2018-12-08] MEDS: LEVOTHYROXINE 75 MCG TAB NGT SCH (06:58)
--- NOTE | 2018-12-08 08:20 | PN ---
DATE: 12/08/2018 SUBJECTIVE: The patient yesterday was extubated, had to be reintubated due to acute respiratory dist ress. Hemodialysis was attempted, although unable to be performed as the patient had inadequate flow to his arterial hemodialysis port. A reattempt to dialysis will happen today. No other events note d. OBJECTIVE: VITAL SIGNS: Blood pressure is 95/62, respirations 34, pulse 102, temperature 98.6. HEENT: Head is normocephalic. NECK: Supple. HEART: Regular rate. LUNGS: Show diminished breath sounds at the base. ABDOMEN: Soft, nontender to palpation without rebound or guarding. EXTREMITIES: Negative for clubbing, cyanosis. Diffuse anasarca. DERMATOLOGIC: No rashes. MUSCULOSKELETAL: No joint effusion. NEUROLOGIC: No change in exam. MEDICATIONS: Reviewed. LABORATORY DATA: Reviewed. IMAGING STUDIES: Reviewed. MICROBIOLOGY: Cultures have been reviewed. ASSESSMENT AND PLAN: 1. End-stage renal disease. The patient was unable to have hemodialysis yesterday due to inadequate blood flow through Perm-A-Cath. We will attempt for hemodialysis today after being given Cathflo. If unable to do dialysis we will consult surgery for possible catheter exchange. 2. Volume overload, diffuse anasarca. Continue ultrafiltration with hemodialysis. 3. Septic shock secondary to pneumonia. Continue current pressor support. Continue antibiotic ther apy. 4. Anemia. Continue to monitor hemoglobin and hematocrit levels. Continue Epogen. 5. Mineral bone disorder, monitor calcium and phosphorus levels. 6. Hyponatremia, improved. Continue to monitor. 7. Acute hypoxemic hypercapnic respiratory failure. The patient was extubated immediately reintubat ed due to respiratory distress. We will continue to monitor. Continue ultrafiltration with dialysis as the patient has noted interstitial edema. Vent settings and ABG was reviewed. 8. Acute encephalopathy. Etiology is toxic metabolic. 9. Ascites, status post paracentesis. 10. Hypothyroidism. Continue Synthroid. 11. Dysphagia. Continue tube feeding. 12. Arrhythmia. Continue amiodarone. 13. Hyperglycemia, continue dextrose drip. 14. Lower extremity wounds. Continue wound care. 15. Status post cardiopulmonary arrest. Please note I spent over 30 minutes of critical care time with this patient. Dictated By: SARIKA CRAIG/EZIO Conf#: [id number] DID#: [id number] CC: LORRAINE JOHNSON MD; MANDY BATES MD; JOSLYN LANDRUM MD;*End*
[2018-12-08] MEDS: FAMOTIDINE 20 MG TAB NGT SCH (08:22)
[2018-12-08] MEDS: AMIODARONE 200 MG TAB NGT SCH ×2 (08:22→20:43)
[2018-12-08] MEDS: FOLIC ACID 1 MG TAB NGT SCH (08:22)
[2018-12-08] MEDS: MIDODRINE 5 MG TAB GTB SCH ×3 (08:22→16:23)
[2018-12-08] MEDS: ALBUMIN HUMAN 25% 100 ML IV PRN (08:52)
[2018-12-08] MEDS: MEROPENEM 500MG/50 ML (PMX) 50 ML IVPB SCH ×2 (09:10→20:41)
[2018-12-08] MEDS: COLLAGENASE 5 GM (UD JAR) TOP SCH (09:10)
[2018-12-08] MEDS: BALSAM PERU/CASTOR OIL 60 GM TUBE TOP SCH ×2 (09:10→20:43)
[2018-12-08] MEDS ORDERED: MAGNESIUM SULFATE 2 GM/50 ML 50 ML IVPB ONE (11:00)
[2018-12-08] MEDS: PROPOFOL 100 ML IV SCH ×2 (11:05)
--- NOTE | 2018-12-08 11:11 | CONS ---
Assessment/Plan Assessment/Plan Assessment/Plan (Daily) Respiratory failure CHF end-stage renal disease Unable to come off the ventilator secondary to severe comorbidities Plan to proceed with tracheostomy Consultation Date/Type/Reason Admit Date/Time Nov 21, 2018 at 04:53 Date of Consultation: Dec 08, 2018 Type of Consult Thoracic surgery Reason for Consultation Tracheostomy Date/Time of Note DATE: 12/08/18 TIME: 11:10 Hx of Present Illness 58-year-old female with a history of end-stage renal disease currently on dialysis per permacat patient also has a history of aspiratory failure has been on the ventilator for about 2 weeks unable to come off the ventilator secondary to comorbidities including a pneumonia and CHF ENT: no complaints Respiratory: no complaints Cardiovascular: no complaints Gastrointestinal: no complaints Genitourinary: no complaints Musculoskeletal: no complaints Skin: no complaints Neurologic: no complaints Past Medical History Medical History: hypertension, hypothyroid, renal disease, other (See HPI) Home Meds Reported Medications Folic Acid* (Folic Acid*) 1 Mg Tablet, 1 MG PO DAILY, TAB 08/10/18 Amiodarone Hcl* (Amiodarone Hcl*) 200 Mg Tablet, 200 MG PO BID, #60 TAB 08/10/18 Pantoprazole* (Protonix*) 40 Mg Tablet.dr, 40 MG PO DAILY, TAB 08/10/18 Multivit/Ca Carb/B Cmplx/Fa* (Iram-Xiomara*) 1 Tab Tab, 1 TAB PO DAILY, TAB 08/10/18 Levothyroxine Sodium* (Levoxyl*) 75 Mcg Tablet, 75 MCG PO BEFORE BREAKFAST, #30 TAB 08/10/18 Medications Current Medications Ondansetron HCl (Zofran Inj) 4 mg Q6H PRN IV NAUSEA AND/OR VOMITING Last administered on 12/07/18at 09:06; Admin Dose 4 MG; Start 11/21/18 at 05:30 Albuterol/ Ipratropium (Duoneb) 3 ml Q2H RESP THERAPY PRN NEB SHORTNESS OF BREATH; Start 11/21/18 at 05:30 Meropenem/Sodium Chloride 50 ml @ 100 mls/hr Q12 IVPB Last administered on 12/08/18at 09:10; Admin Dose 100 MLS/HR; Start 11/21/18 at 21:00 Caspofungin 50 mg/ Sodium Chloride 250 ml @ 250 mls/hr Q24H IVPB Last administered on 12/07/18 17:01; Admin Dose 250 MLS/HR; Start 11/24/18 at 13:00 Miscellaneous Information 1 ea NOTE XX ; Start 11/23/18 at 13:30 Glucose (Glutose) 15 gm Q15M PRN PO DECREASED GLUCOSE; Start 11/23/18 at 13:30 Glucose (Glutose) 22.5 gm Q15M PRN PO DECREASED GLUCOSE; Start 11/23/18 at 13:30 Dextrose (D50w Syringe) 25 ml Q15M PRN IV DECREASED GLUCOSE Last administered on 12/08/18 08:21; Admin Dose 25 ML; Start 11/23/18 at 13:30 Dextrose (D50w Syringe) 50 ml Q15M PRN IV DECREASED GLUCOSE Last administered on 12/06/18 17:22; Admin Dose 50 ML; Start 11/23/18 at 13:30 Glucagon (Glucagen) 1 mg Q15M PRN IM DECREASED GLUCOSE; Start 11/23/18 at 13:30 Glucose (Glutose) 15 gm Q15M PRN BUCCAL DECREASED GLUCOSE; Start 11/23/18 at 13:30 Propofol 100 ml @ 1.59 mls/hr Q12H IV Last administered on 12/05/18at 12:00; Admin Dose 0 MLS/HR; Start 11/24/18 at 00:00 Phenylephrine HCl 80 mg/Dextrose 250 ml @ 18.75 mls/ hr TITRATE IV ; Start 11/24/18 at 00:00 Alteplase, Recombinant (Cathflo (Activase)) 2 mg MAY REPEAT X1 PRN CATHETER IF CATHETER REMAINS OCCULUDED Last administered on 12/02/18at 15:47; Admin Dose 2 MG; Start 11/26/18 at 03:00 Albumin Human 100 ml @ 100 mls/hr DURING DIALYSIS PRN IV HYPOTENSION DURING HD Last administered on 12/08/18 08:52; Admin Dose 100 MLS/HR; Start 11/26/18 at 14:00 Diagnostic Test (Pha) (Accu-Chek) 1 ea Q4 XX Last administered on 12/08/18 05:49; Admin Dose 1 EA; Start 11/27/18 at 13:00 Levothyroxine Sodium (Synthroid) 75 mcg BEFORE BREAKFAST NGT Last administered on 12/07/18 08:58; Admin Dose 75 MCG; Start 11/29/18 at 07:00 Midazolam HCl 50 ml @ 1 mls/hr TITRATE IV Last administered on 11/30/18 05:15; Admin Dose 50 MLS/HR; Start 11/29/18 at 09:00 Sodium Chloride 154 meq/Dextrose 1,038.5 ml @ 70 mls/hr [id number] IV Last administered on 12/07/18 23:22; Admin Dose 45 MLS/HR; Start 11/30/18 at 10:00 Collagenase (Santyl) 1 applic DAILY TOP Last administered on 12/08/18 09:10; Admin Dose 1 APPLIC; Start 12/01/18 at 16:30 Amiodarone HCl (Cordarone) 200 mg BID NGT Last administered on 12/07/18 23:56; Admin Dose 200 MG; Start 12/03/18 at 21:00 Epoetin Margarito-epbx (Retacrit) 6,000 unit MoWeFr@1700 SC Last administered on 12/07/18 17:02; Admin Dose 6,000 UNIT; Start 12/07/18 at 17:00 Acetaminophen (Tylenol Liquid) 650 mg Q6H PRN NGT PAIN LEVEL 1-3 OR FEVER; Start 12/06/18 at 09:00 Famotidine (Pepcid) 20 mg DAILY NGT Last administered on 12/07/18 08:58; Admin Dose 20 MG; Start 12/06/18 at 09:00 Folic Acid (Folic Acid) 1 mg DAILY NGT Last administered on 12/07/18 08:59; Admin Dose 1 MG; Start 12/06/18 at 09:00 Midodrine (Proamatine) 5 mg TID@09,13,17 GTB Last administered on 12/07/18 08:58; Admin Dose 5 MG; Start 12/07/18 at 09:00 Diagnostic Test (Pha) (Accu-Chek) 1 ea Q1H XX Last administered on 12/08/18 10:22; Admin Dose 1 EA; Start 12/08/18 at 05:00 Norepinephrine 32 mg/Dextrose 250 ml @ 0.47 mls/hr TITRATE IV ; Start 12/08/18 at 09:00 Magnesium Sulfate 50 ml @ 25 mls/hr ONCE ONCE IVPB ; Start 12/08/18 at 11:00; Stop 12/08/18 at 12:59 Allergies: Coded Allergies: Penicillins (Verified Allergy, Unknown, 08/10/18) tazobactam (Verified Allergy, Unknown, 08/10/18) vancomycin (Verified Allergy, Unknown, 08/10/18) Past Surgical History Past Surgical Hx: other Social History Alcohol Use: none Smoking Status: Never smoker Drug Use: none Exam/Review of Systems Exam Vitals Vital Signs Date Temp Pulse Resp B/P (MAP) Pulse Ox O2 O2 Flow FiO2 Time Delivery Rate 12/08/18 102 36 81/60 (67) 98 10:30 12/08/18 Mechanical 10:00 Ventilator 12/08/18 50 09:53 12/08/18 97.6 08:00 12/07/18 6.0 12:50 Intake and Output 12/07/18 12/07/18 12/08/18 1515:00 23:00 07:00 IntakeIntake Total 492.500 ml 765.875 ml 344 ml OutputOutput Total 0 ml 500 ml 0 ml BalanceBalance 492.500 ml 265.875 ml 344 ml Eyes: nl conjunctiva, EOMI, nl lids, nl sclera, PERRL ENMT: nl external ears & nose, nl lips & teeth, nl nasal mucosa & septum Neck: supple, non-tender Respiratory: clear to auscultation, normal air movement Cardiovascular: regular rate and rhythm, nl pulses Gastrointestinal: soft, nl liver, spleen, non-tender Musculoskeletal: nl extremities to inspection, nl gait and stance Results Result Diagram: 12/08/18 0531 12/08/18530 Results 24hrs Laboratory Tests Test 12/07/18 14:31 12/07/18 15:52 12/07/18 17:26 12/07/18 17:51 Bedside Glucose 97 54 L 147 Blood Gas Blood arterial Specimen Source Arterial Blood 12/07/2018 4:10: Date Drawn 14 PM Arterial Blood 7.465 H pH (Temp corrected) Arterial Blood 33.7 L pCO2 (Temp correct) Arterial Blood 63.8 L pO2 (Temp corrected) Arterial Blood 23.7 HCO3 Arterial Blood 0.3 Base Excess Arterial Blood 92.5 L Oxygen Saturatio n Morgan Test N/A Arterial Blood Right Brachial Gas Puncture Site Arterial 0.2 Blood Carboxyhem oglobin Arterial Blood 0.2 Methemoglobin Blood Gas A-a O2 110.5 H Differential Oxyhemoglobin 92.1 L Percent Blood Gas 37.0 Temperature Blood Gas 20.0 Respiration Rate Blood Gas Actual 25 Respiration Rate Blood Gas VENT - AC Modality FiO2 30.0 Blood Gas Tidal 450.0 Volume Blood Gas Low 5.0 PEEP Setting Blood Gas AL Notified Whom Blood Gas 12/07/2018 4:23: Notified Time 22 PM Test 12/07/18 18:18 12/07/18 21:58 12/07/18 22:01 12/07/18 22:37 Bedside Glucose 82 32 *L < 13 *L 91 Test 12/07/18 22:55 12/07/18 23:16 12/07/18 23:49 12/08/18 00:17 Bedside Glucose 72 77 50 L 118 Test 12/08/18 00:32 12/08/18 02:01 12/08/18 02:11 12/08/18 02:37 Bedside Glucose 87 67 L 145 102 Test 12/08/18 03:44 12/08/18 04:45 12/08/18 05:31 12/08/18 05:47 Bedside Glucose 80 89 78 White Blood 6.9 # Count Red Blood Count 2.86 L Hemoglobin 8.7 L Hematocrit 26.0 L Mean Corpuscular 90.9 Volume Mean Corpuscular 30.4 Hemoglobin Mean Corpuscular 33.5 Hemoglobin Anh nt Red Cell 20.5 H Distribution Width Platelet Count 53 #L Mean Platelet Volume Immature 0.700 H Granulocytes % Neutrophils % Segmented 24 L Neutrophils % (Manual) Band Neutrophils 37 H % (Manual) Lymphocytes % Lymphocytes % 19 (Manual) Reactive 2 H Lymphocytes % (Manual) Monocytes % Monocytes % 12 H (Manual) Eosinophils % Basophils % Basophils % 2 (Manual) Metamyelocytes % 3 H (manual) Myelocytes % 1 H (Manual) Nucleated Red 0.0 Blood Cells % Immature 0.050 H Granulocytes # Neutrophils # Neutrophils # 1.8 (Manual) Band Neutrophils 2.5 H # Lymphocytes 1.3 (Manual) Lymphocytes # Reactive 0.1 H Lymphocytes # Monocytes # Monocytes # 0.8 (Manual) Eosinophils # Basophils # Basophils # 0.1 H (Manual) Metamyelocytes # 0.2 H Myelocytes # 0.0 Nucleated Red Blood Cells # Platelet SIG DECREASED Estimate Giant Platelets 24 H Polychromasia 1+ Hypochromasia 1+ Poikilocytosis 1+ Anisocytosis 1+ Macrocytosis 1+ Target Cells 2+ Ovalocytes 1+ Sodium Level 140 Potassium Level 4.5 Chloride Level 108 Carbon Dioxide 21 Level Anion Gap 11 Blood Urea 38 H Nitrogen Creatinine 1.34 H Est Glomerular 41 L Filtrat Rate mL/min Glucose Level 74 Calcium Level 8.2 L Phosphorus Level 3.7 Magnesium Level 1.7 Test 12/08/18 06:56 12/08/18 08:20 12/08/18 08:44 12/08/18 09:09 Bedside Glucose 71 53 L 166 104 Test 12/08/18 10:21 Bedside Glucose 83 Medications Medication Current Medications Ondansetron HCl (Zofran Inj) 4 mg Q6H PRN IV NAUSEA AND/OR VOMITING Last administered on 12/07/18 09:06; Admin Dose 4 MG; Start 11/21/18 at 05:30 Albuterol/ Ipratropium (Duoneb) 3 ml Q2H RESP THERAPY PRN NEB SHORTNESS OF BREATH; Start 11/21/18 at 05:30 Meropenem/Sodium Chloride 50 ml @ 100 mls/hr Q12 IVPB Last administered on 12/08/18 09:10; Admin Dose 100 MLS/HR; Start 11/21/18 at 21:00 Caspofungin 50 mg/ Sodium Chloride 250 ml @ 250 mls/hr Q24H IVPB Last administered on 12/07/18at 17:01; Admin Dose 250 MLS/HR; Start 11/24/18 at 13:00 Miscellaneous Information 1 ea NOTE XX ; Start 11/23/18 at 13:30 Glucose (Glutose) 15 gm Q15M PRN PO DECREASED GLUCOSE; Start 11/23/18 at 13:30 Glucose (Glutose) 22.5 gm Q15M PRN PO DECREASED GLUCOSE; Start 11/23/18 at 13:30 Dextrose (D50w Syringe) 25 ml Q15M PRN IV DECREASED GLUCOSE Last administered on 12/08/18 08:21; Admin Dose 25 ML; Start 11/23/18 at 13:30 Dextrose (D50w Syringe) 50 ml Q15M PRN IV DECREASED GLUCOSE Last administered on 12/06/18at 17:22; Admin Dose 50 ML; Start 11/23/18 at 13:30 Glucagon (Glucagen) 1 mg Q15M PRN IM DECREASED GLUCOSE; Start 11/23/18 at 13:30 Glucose (Glutose) 15 gm Q15M PRN BUCCAL DECREASED GLUCOSE; Start 11/23/18 at 13:30 Propofol 100 ml @ 1.59 mls/hr Q12H IV Last administered on 12/05/18 12:00; Admin Dose 0 MLS/HR; Start 11/24/18 at 00:00 Phenylephrine HCl 80 mg/Dextrose 250 ml @ 18.75 mls/ hr TITRATE IV ; Start 11/24/18 at 00:00 Alteplase, Recombinant (Cathflo (Activase)) 2 mg MAY REPEAT X1 PRN CATHETER IF CATHETER REMAINS OCCULUDED Last administered on 12/02/18 15:47; Admin Dose 2 MG; Start 11/26/18 at 03:00 Albumin Human 100 ml @ 100 mls/hr DURING DIALYSIS PRN IV HYPOTENSION DURING HD Last administered on 12/08/18 08:52; Admin Dose 100 MLS/HR; Start 11/26/18 at 14:00 Diagnostic Test (Pha) (Accu-Chek) 1 ea Q4 XX Last administered on 12/08/18 05:49; Admin Dose 1 EA; Start 11/27/18 at 13:00 Levothyroxine Sodium (Synthroid) 75 mcg BEFORE BREAKFAST NGT Last administered on 12/07/18 08:58; Admin Dose 75 MCG; Start 11/29/18 at 07:00 Midazolam HCl 50 ml @ 1 mls/hr TITRATE IV Last administered on 11/30/18 05:15; Admin Dose 50 MLS/HR; Start 11/29/18 at 09:00 Sodium Chloride 154 meq/Dextrose 1,038.5 ml @ 70 mls/hr [id number] IV Last administered on 12/07/18 23:22; Admin Dose 45 MLS/HR; Start 11/30/18 at 10:00 Collagenase (Santyl) 1 applic DAILY TOP Last administered on 12/08/18 09:10; Admin Dose 1 APPLIC; Start 12/01/18 at 16:30 Amiodarone HCl (Cordarone) 200 mg BID NGT Last administered on 12/07/18 23:56; Admin Dose 200 MG; Start 12/03/18 at 21:00 Epoetin Margarito-epbx (Retacrit) 6,000 unit MoWeFr@1700 SC Last administered on 12/07/18at 17:02; Admin Dose 6,000 UNIT; Start 12/07/18 at 17:00 Acetaminophen (Tylenol Liquid) 650 mg Q6H PRN NGT PAIN LEVEL 1-3 OR FEVER; Start 12/06/18 at 09:00 Famotidine (Pepcid) 20 mg DAILY NGT Last administered on 12/07/18at 08:58; Admin Dose 20 MG; Start 12/06/18 at 09:00 Folic Acid (Folic Acid) 1 mg DAILY NGT Last administered on 12/07/18at 08:59; Admin Dose 1 MG; Start 12/06/18 at 09:00 Midodrine (Proamatine) 5 mg TID@09,13,17 GTB Last administered on 12/07/18at 08:58; Admin Dose 5 MG; Start 12/07/18 at 09:00 Diagnostic Test (Pha) (Accu-Chek) 1 ea Q1H XX Last administered on 12/08/18at 10:22; Admin Dose 1 EA; Start 12/08/18 at 05:00 Norepinephrine 32 mg/Dextrose 250 ml @ 0.47 mls/hr TITRATE IV ; Start 12/08/18 at 09:00 Magnesium Sulfate 50 ml @ 25 mls/hr ONCE ONCE IVPB ; Start 12/08/18 at 11:00; Stop 12/08/18 at 12:59 TAE PAN MD Dec 08, 2018 11:11
[2018-12-08] MEDS: NORepinephrine 32 MG in DEXTROSE 5% 218 ML IV SCH (11:18)
--- NOTE | 2018-12-08 11:56 | CONS ---
Consult Date/Type/Reason Admit Date/Time Nov 21, 2018 at 04:53 Initial Consult Date Type of Consult Pulmonary Requesting Provider: RIKA STOCK Date/Time of Note DATE: 12/08/18 TIME: 11:55 Subjective Failed extubation. Reintubated several hours after extubation yesterday. Now stable again on mechanical ventilation. Objective Vital Signs Date Temp Pulse Resp B/P (MAP) Pulse Ox O2 O2 Flow FiO2 Time Delivery Rate 12/08/18 102 36 81/60 (67) 98 10:30 12/08/18 Mechanical 10:00 Ventilator 12/08/18 50 09:53 12/08/18 97.6 08:00 12/07/18 6.0 12:50 Intake and Output 12/07/18 12/07/18 12/08/18 1515:00 23:00 07:00 IntakeIntake Total 492.500 ml 765.875 ml 344 ml OutputOutput Total 0 ml 500 ml 0 ml BalanceBalance 492.500 ml 265.875 ml 344 ml Exam GENERAL: Thin elderly cachectic lady on mechanical ventilation VITAL SIGNS: per chart NECK: Supple. No JVD or lymphadenopathy. CARDIAC EXAM: S1, S2. No added sounds or murmurs. CHEST: clear bilaterally, No added sounds, rales or wheezes ABDOMEN: Soft, nontender. No guarding or rebound. EXTREMITIES: No cyanosis, clubbing or edema. NEUROLOGIC: Generalized weakness. No focal deficits. Vent Setting Ventilator Support Mode: AC Fraction of Inspired Oxygen pe: 50 Positive End Expiratory Pressu: 5.0 Results/Medications Result Diagram: 12/08/18 0531 12/08/18 0531 Results 24 hrs Laboratory Tests Test 12/07/18 14:31 12/07/18 15:52 12/07/18 17:26 12/07/18 17:51 Bedside Glucose 97 54 L 147 Blood Gas Blood arterial Specimen Source Arterial Blood 12/07/2018 4:10: Date Drawn 14 PM Arterial Blood 7.465 H pH (Temp corrected) Arterial Blood 33.7 L pCO2 (Temp correct) Arterial Blood 63.8 L pO2 (Temp corrected) Arterial Blood 23.7 HCO3 Arterial Blood 0.3 Base Excess Arterial Blood 92.5 L Oxygen Saturatio n Morgan Test N/A Arterial Blood Right Brachial Gas Puncture Site Arterial 0.2 Blood Carboxyhem oglobin Arterial Blood 0.2 Methemoglobin Blood Gas A-a O2 110.5 H Differential Oxyhemoglobin 92.1 L Percent Blood Gas 37.0 Temperature Blood Gas 20.0 Respiration Rate Blood Gas Actual 25 Respiration Rate Blood Gas VENT - AC Modality FiO2 30.0 Blood Gas Tidal 450.0 Volume Blood Gas Low 5.0 PEEP Setting Blood Gas [place] Notified Whom Blood Gas 12/07/2018 4:23: Notified Time 22 PM Test 12/07/18 18:18 12/07/18 21:58 12/07/18 22:01 12/07/18 22:37 Bedside Glucose 82 32 *L < 13 *L 91 Test 12/07/18 22:55 12/07/18 23:16 12/07/18 23:49 12/08/18 00:17 Bedside Glucose 72 77 50 L 118 Test 12/08/18 00:32 12/08/18 02:01 12/08/18 02:11 12/08/18 02:37 Bedside Glucose 87 67 L 145 102 Test 12/08/18 03:44 12/08/18 04:45 12/08/18 05:31 12/08/18 05:47 Bedside Glucose 80 89 78 White Blood 6.9 # Count Red Blood Count 2.86 L Hemoglobin 8.7 L Hematocrit 26.0 L Mean Corpuscular 90.9 Volume Mean Corpuscular 30.4 Hemoglobin Mean Corpuscular 33.5 Hemoglobin Anh nt Red Cell 20.5 H Distribution Width Platelet Count 53 #L Mean Platelet Volume Immature 0.700 H Granulocytes % Neutrophils % Segmented 24 L Neutrophils % (Manual) Band Neutrophils 37 H % (Manual) Lymphocytes % Lymphocytes % 19 (Manual) Reactive 2 H Lymphocytes % (Manual) Monocytes % Monocytes % 12 H (Manual) Eosinophils % Basophils % Basophils % 2 (Manual) Metamyelocytes % 3 H (manual) Myelocytes % 1 H (Manual) Nucleated Red 0.0 Blood Cells % Immature 0.050 H Granulocytes # Neutrophils # Neutrophils # 1.8 (Manual) Band Neutrophils 2.5 H # Lymphocytes 1.3 (Manual) Lymphocytes # Reactive 0.1 H Lymphocytes # Monocytes # Monocytes # 0.8 (Manual) Eosinophils # Basophils # Basophils # 0.1 H (Manual) Metamyelocytes # 0.2 H Myelocytes # 0.0 Nucleated Red Blood Cells # Platelet SIG DECREASED Estimate Giant Platelets 24 H Polychromasia 1+ Hypochromasia 1+ Poikilocytosis 1+ Anisocytosis 1+ Macrocytosis 1+ Target Cells 2+ Ovalocytes 1+ Sodium Level 140 Potassium Level 4.5 Chloride Level 108 Carbon Dioxide 21 Level Anion Gap 11 Blood Urea 38 H Nitrogen Creatinine 1.34 H Est Glomerular 41 L Filtrat Rate mL/min Glucose Level 74 Calcium Level 8.2 L Phosphorus Level 3.7 Magnesium Level 1.7 Test 12/08/18 06:56 12/08/18 08:20 12/08/18 08:44 12/08/18 09:09 Bedside Glucose 71 53 L 166 104 Test 12/08/18 10:21 12/08/18 11:11 Bedside Glucose 83 85 Medications Current Medications Ondansetron HCl (Zofran Inj) 4 mg Q6H PRN IV NAUSEA AND/OR VOMITING Last administered on 12/07/18at 09:06; Admin Dose 4 MG; Start 11/21/18 at 05:30 Albuterol/ Ipratropium (Duoneb) 3 ml Q2H RESP THERAPY PRN NEB SHORTNESS OF BREATH; Start 11/21/18 at 05:30 Meropenem/Sodium Chloride 50 ml @ 100 mls/hr Q12 IVPB Last administered on 12/08/18at 09:10; Admin Dose 100 MLS/HR; Start 11/21/18 at 21:00 Caspofungin 50 mg/ Sodium Chloride 250 ml @ 250 mls/hr Q24H IVPB Last administered on 12/07/18at 17:01; Admin Dose 250 MLS/HR; Start 11/24/18 at 13:00 Miscellaneous Information 1 ea NOTE XX ; Start 11/23/18 at 13:30 Glucose (Glutose) 15 gm Q15M PRN PO DECREASED GLUCOSE; Start 11/23/18 at 13:30 Glucose (Glutose) 22.5 gm Q15M PRN PO DECREASED GLUCOSE; Start 11/23/18 at 13:30 Dextrose (D50w Syringe) 25 ml Q15M PRN IV DECREASED GLUCOSE Last administered on 12/08/18at 08:21; Admin Dose 25 ML; Start 11/23/18 at 13:30 Dextrose (D50w Syringe) 50 ml Q15M PRN IV DECREASED GLUCOSE Last administered on 12/06/18at 17:22; Admin Dose 50 ML; Start 11/23/18 at 13:30 Glucagon (Glucagen) 1 mg Q15M PRN IM DECREASED GLUCOSE; Start 11/23/18 at 13:30 Glucose (Glutose) 15 gm Q15M PRN BUCCAL DECREASED GLUCOSE; Start 11/23/18 at 13:30 Propofol 100 ml @ 1.59 mls/hr Q12H IV Last administered on 12/05/18 12:00; Ad min Dose 0 MLS/HR; Start 11/24/18 at 00:00 Phenylephrine HCl 80 mg/Dextrose 250 ml @ 18.75 mls/ hr TITRATE IV ; Start 11/24/18 at 00:00 Alteplase, Recombinant (Cathflo (Activase)) 2 mg MAY REPEAT X1 PRN CATHETER IF CATHETER REMAINS OCCULUDED Last administered on 12/02/18 15:47; Admin Dose 2 MG; Start 11/26/18 at 03:00 Albumin Human 100 ml @ 100 mls/hr DURING DIALYSIS PRN IV HYPOTENSION DURING HD Last administered on 12/08/18 08:52; Admin Dose 100 MLS/HR; Start 11/26/18 at 14:00 Diagnostic Test (Pha) (Accu-Chek) 1 ea Q4 XX Last administered on 12/08/18 05:49; Admin Dose 1 EA; Start 11/27/18 at 13:00 Levothyroxine Sodium (Synthroid) 75 mcg BEFORE BREAKFAST NGT Last administered on 12/07/18 08:58; Admin Dose 75 MCG; Start 11/29/18 at 07:00 Midazolam HCl 50 ml @ 1 mls/hr TITRATE IV Last administered on 11/30/18 05:15; Admin Dose 50 MLS/HR; Start 11/29/18 at 09:00 Sodium Chloride 154 meq/Dextrose 1,038.5 ml @ 70 mls/hr [id number] IV Last administered on 12/07/18 23:22; Admin Dose 45 MLS/HR; Start 11/30/18 at 10:00 Collagenase (Santyl) 1 applic DAILY TOP Last administered on 12/08/18 09:10; Admin Dose 1 APPLIC; Start 12/01/18 at 16:30 Amiodarone HCl (Cordarone) 200 mg BID NGT Last administered on 12/07/18 23:56; Admin Dose 200 MG; Start 12/03/18 at 21:00 Epoetin Margarito-epbx (Retacrit) 6,000 unit MoWeFr@1700 SC Last administered on 12/07/18 17:02; Admin Dose 6,000 UNIT; Start 12/07/18 at 17:00 Acetaminophen (Tylenol Liquid) 650 mg Q6H PRN NGT PAIN LEVEL 1-3 OR FEVER; Start 12/06/18 at 09:00 Famotidine (Pepcid) 20 mg DAILY NGT Last administered on 12/07/18 08:58; Admin Dose 20 MG; Start 12/06/18 at 09:00 Folic Acid (Folic Acid) 1 mg DAILY NGT Last administered on 12/07/18 08:59; Admin Dose 1 MG; Start 12/06/18 at 09:00 Midodrine (Proamatine) 5 mg TID@09,13,17 GTB Last administered on 12/07/18 08:58; Admin Dose 5 MG; Start 12/07/18 at 09:00 Diagnostic Test (Pha) (Accu-Chek) 1 ea Q1H XX Last administered on 12/08/18 11:28; Admin Dose 1 EA; Start 12/08/18 at 05:00 Norepinephrine 32 mg/Dextrose 250 ml @ 0.47 mls/hr TITRATE IV Last administered on 12/08/18 11:18; Admin Dose 12.19 MLS/HR; Start 12/08/18 at 09:00 Magnesium Sulfate 50 ml @ 25 mls/hr ONCE ONCE IVPB Last administered on 12/08/18 11:05; Admin Dose 25 MLS/HR; Start 12/08/18 at 11:00; Stop 12/08/18 at 12:59 Assessment/Plan Hospital Course (Demo Recall) IMP: 1. Septic Shock 2. Gram Negative Bacteremia 3. Vent Dependent Resp Failure 4. ESRD on HD 5. Cardiomyopathy 6. Severe Thrombocytopenia 7. Anemia RECS: 1. 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 Will need tracheostomy. 2. Spoke with family about need for trach to facilitate long-term weaning 3. Titrate pressors to MAP > 65 mm Hg 4. HD/UF per Renal 5. Abx per ID 6. Repeat cortisol level. May require hydrocortisone. PEG tube and tracheostomy to be placed. 40 min cc time NINA MORRIS MD, [facility] Dec 08, 2018 11:56
--- NOTE | 2018-12-08 12:08 | CONS ---
Assessment/Plan Assessment/Plan Hospital Course 58 yo F with hx of afib, ESRD on peritoneal dialysis, and other comorbidities... who initially presented with ams in the context of hypotension and severe hypoglycemia. Now s/p PEA arrest on 11/24; Targeted temperature therapy was deferred.. She was found to be protractedly encephalopathic, for which neurology is consulted. The clinical picture suggests an acute toxic-metabolic (?on chronic) encephalopathy...which has shown some improvement clinically.. HCT is reassuringly without obvious acute intracranial pathology. CXR + PNA Na 127, phos 6.9 ammonia, TSH, B12 wnl plt 24 P: Cont medical management per primary [place] as able Cont to limit sedating medications where possible PT/OT when able Will follow clinically Consultation Date/Type/Reason Admit Date/Time Nov 21, 2018 at 04:53 Type of Consult Neurology Reason for Consultation ams Requesting Provider: RIKA STOCK Date/Time of Note DATE: 12/08/18 TIME: 12:08 24 HR Interval Summary Free Text/Dictation Continues critical care. Pt reportedly extubated yesterday and reintubated for respiratory failure; family reportedly is agreeable to trach placement. Pt also has had multiple episodes of hypoglycemia today and overnight. Exam Vital Signs Vitals Vital Signs Date Temp Pulse Resp B/P (MAP) Pulse Ox O2 O2 Flow FiO2 Time Delivery Rate 12/08/18 91 25 100 50 11:41 12/08/18 81/60 (67) 10:30 12/08/18 Mechanical 10:00 Ventilator 12/08/18 97.6 08:00 12/07/18 6.0 12:50 Intake and Output 12/07/18 12/07/18 12/08/18 1515:00 23:00 07:00 IntakeIntake Total 492.500 ml 765.875 ml 344 ml OutputOutput Total 0 ml 500 ml 0 ml BalanceBalance 492.500 ml 265.875 ml 344 ml Exam PE: Gen Appearance: No Apparent Distress HEENT: Intubated Cardiovascular: Regular rate Abdomen: Soft Extremities: Dry NE: The patient was awake and alert. Nonverbal d/t ETT. Able to gesture and nod appropriately to yes/no questions. Able to follow simple axial and appendicular commands. Cranial nerve examination was limited by mental status. Pupils were equal and reactive to light. There was no afferent pupillary defect. Funduscopic examination was limited. Face was grossly symmetric, w/ present corneal and cough reflexes. Tone was normal. Muscle bulk was severely diminished. I did not see fasciculations. The patient was spontaneously moving her UE; was weak in her LE Coordination and gait testing was limited by mental status. Arm and leg reflexes were within normal limits and symmetric. Alvarez's sign was absent. Plantar responses were flexor. HOLLY FISHER NP Dec 08, 2018 12:08 LIANET LOVE Dec 08, 2018 19:14
[2018-12-08] MEDS: CASPOFUNGIN 50 MG in SOD CHLORIDE 0.9% 250 ML IVPB SCH (13:12)
--- NOTE | 2018-12-08 13:39 | CONS ---
Assessment/Plan Assessment/Plan Hospital Course (Demo Recall) Summary Assessment and Plan: Assessment: Dysphagia- requiring PEG placement Respiratory failure- intubated- failed extubation- s/p resp arrest post extubation 12/07- currently intubated- will require tracheostomy Septic Shock Gram Negative Bacteremia- repeat blood cx negative Left lower extremity wound - Antibiotics per ID Atrial Fibrillation PM ESRD Pancytopenia with coagulopathy, thrombocytopenia- likely 2/2 hepatocellular disease -Liver u/s- Mild coarsening of the hepatic echotexture may represent early changes of steatosis, cirrhosis, or other diffuse parenchymal process Ascites- 2/2 to fluid overload or hepatocellular disease Hypothyroidism Hx of peritoneal dialysis -Not being used Plan: PEG placement tomorrow -I spoke to the patient's son Alok reviewed risks/benefits/ alternatives/indications of procedure and sedation/anesthesia discussed he states understanding and gives informed consent to proceed. Patient seen in collaboration with Dr. Montanez CC: JUAN RAMON MONTANEZ MD ; Consultation Date/Type/Reason Admit Date/Time Nov 21, 2018 at 04:53 Date of Consultation: Dec 08, 2018 Type of Consult GI Reason for Consultation PEG placement Date/Time of Note DATE: 12/08/18 TIME: 13:33 Hx of Present Illness This is a 58-year-old female who is currently admitted to the ICU being treated for septic shock bacteremia, dysphagia, and acute respiratory failure is currently intubated. Patient was extubated on 12/07 did not tolerate, status post respiratory arrest and reintubated. GI has been consulted for PEG cayden cement. Shunt with history of end-stage renal disease was on peritoneal dialysis however currently on hemodialysis additionally work-up was obtained secondary to pancytopenia imaging suggestive of early cirrhosis. Currently platelet count is 42 with plan to transfuse donated platelets additionally patient with coagulopathy INR is 1.77 and is normocytic anemia with hemoglobin 8.7 at time evaluation there is no family at bedside I will contact patient's son Alok who is a primary decision maker to discuss possibility of PEG placement including risk/benefits of both sedation and procedure we will proceed with PEG placement when patient is stable enough to do so and when agreed upon by family. Subjective hx not possible: pt critical Past Medical History Medical History: hypertension, hypothyroid, renal disease, other (See HPI) Home Meds Reported Medications Folic Acid* (Folic Acid*) 1 Mg Tablet, 1 MG PO DAILY, TAB 08/10/18 Amiodarone Hcl* (Amiodarone Hcl*) 200 Mg Tablet, 200 MG PO BID, #60 TAB 08/10/18 Pantoprazole* (Protonix*) 40 Mg Tablet.dr, 40 MG PO DAILY, TAB 08/10/18 Multivit/Ca Carb/B Cmplx/Fa* (Iram-Xiomara*) 1 Tab Tab, 1 TAB PO DAILY, TAB 08/10/18 Levothyroxine Sodium* (Levoxyl*) 75 Mcg Tablet, 75 MCG PO BEFORE BREAKFAST, #30 TAB 08/10/18 Medications Current Medications Ondansetron HCl (Zofran Inj) 4 mg Q6H PRN IV NAUSEA AND/OR VOMITING Last administered on 12/07/18at 09:06; Admin Dose 4 MG; Start 11/21/18 at 05:30 Albuterol/ Ipratropium (Duoneb) 3 ml Q2H RESP THERAPY PRN NEB SHORTNESS OF BREATH; Start 11/21/18 at 05:30 Meropenem/Sodium Chloride 50 ml @ 100 mls/hr Q12 IVPB Last administered on 12/08/18at 09:10; Admin Dose 100 MLS/HR; Start 11/21/18 at 21:00 Caspofungin 50 mg/ Sodium Chloride 250 ml @ 250 mls/hr Q24H IVPB Last administered on 12/08/18at 13:12; Admin Dose 250 MLS/HR; Start 11/24/18 at 13:00 Miscellaneous Information 1 ea NOTE XX ; Start 11/23/18 at 13:30 Glucose (Glutose) 15 gm Q15M PRN PO DECREASED GLUCOSE; Start 11/23/18 at 13:30 Glucose (Glutose) 22.5 gm Q15M PRN PO DECREASED GLUCOSE; Start 11/23/18 at 13:30 Dextrose (D50w Syringe) 25 ml Q15M PRN IV DECREASED GLUCOSE Last administered on 12/08/18at 08:21; Admin Dose 25 ML; Start 11/23/18 at 13:30 Dextrose (D50w Syringe) 50 ml Q15M PRN IV DECREASED GLUCOSE Last administered on 12/08/18at 12:17; Admin Dose 50 ML; Start 11/23/18 at 13:30 Glucagon (Glucagen) 1 mg Q15M PRN IM DECREASED GLUCOSE; Start 11/23/18 at 13:30 Glucose (Glutose) 15 gm Q15M PRN BUCCAL DECREASED GLUCOSE; Start 11/23/18 at 13:30 Propofol 100 ml @ 1.59 mls/hr Q12H IV Last administered on 12/05/18 12:00; Admin Dose 0 MLS/HR; Start 11/24/18 at 00:00 Phenylephrine HCl 80 mg/Dextrose 250 ml @ 18.75 mls/ hr TITRATE IV ; Start 11/24/18 at 00:00 Alteplase, Recombinant (Cathflo (Activase)) 2 mg MAY REPEAT X1 PRN CATHETER IF CATHETER REMAINS OCCULUDED Last administered on 12/02/18 15:47; Admin Dose 2 MG; Start 11/26/18 at 03:00 Albumin Human 100 ml @ 100 mls/hr DURING DIALYSIS PRN IV HYPOTENSION DURING HD Last administered on 12/08/18 08:52; Admin Dose 100 MLS/HR; Start 11/26/18 at 14:00 Diagnostic Test (Pha) (Accu-Chek) 1 ea Q4 XX Last administered on 12/08/18 05:49; Admin Dose 1 EA; Start 11/27/18 at 13:00 Levothyroxine Sodium (Synthroid) 75 mcg BEFORE BREAKFAST NGT Last administered on 12/07/18 08:58; Admin Dose 75 MCG; Start 11/29/18 at 07:00 Midazolam HCl 50 ml @ 1 mls/hr TITRATE IV Last administered on 11/30/18 05:15; Admin Dose 50 MLS/HR; Start 11/29/18 at 09:00 Sodium Chloride 154 meq/Dextrose 1,038.5 ml @ 70 mls/hr [id number] IV Last administered on 12/07/18 23:22; Admin Dose 45 MLS/HR; Start 11/30/18 at 10:00 Collagenase (Santyl) 1 applic DAILY TOP Last administered on 12/08/18 09:10; Admin Dose 1 APPLIC; Start 12/01/18 at 16:30 Amiodarone HCl (Cordarone) 200 mg BID NGT Last administered on 12/07/18 23:56; Admin Dose 200 MG; Start 12/03/18 at 21:00 Epoetin Margarito-epbx (Retacrit) 6,000 unit MoWeFr@1700 SC Last administered on 12/07/18 17:02; Admin Dose 6,000 UNIT; Start 12/07/18 at 17:00 Acetaminophen (Tylenol Liquid) 650 mg Q6H PRN NGT PAIN LEVEL 1-3 OR FEVER; Start 12/06/18 at 09:00 Famotidine (Pepcid) 20 mg DAILY NGT Last administered on 12/07/18 08:58; Admin Dose 20 MG; Start 12/06/18 at 09:00 Folic Acid (Folic Acid) 1 mg DAILY NGT Last administered on 12/07/18 08:59; Admin Dose 1 MG; Start 12/06/18 at 09:00 Midodrine (Proamatine) 5 mg TID@09,13,17 GTB Last administered on 12/07/18 08:58; Admin Dose 5 MG; Start 12/07/18 at 09:00 Diagnostic Test (Pha) (Accu-Chek) 1 ea Q1H XX Last administered on 12/08/18 12:17; Admin Dose 1 EA; Start 12/08/18 at 05:00 Norepinephrine 32 mg/Dextrose 250 ml @ 0.47 mls/hr TITRATE IV Last administered on 12/08/18 11:18; Admin Dose 12.19 MLS/HR; Start 12/08/18 at 09:00 Allergies: Coded Allergies: Penicillins (Verified Allergy, Unknown, 08/10/18) tazobactam (Verified Allergy, Unknown, 08/10/18) vancomycin (Verified Allergy, Unknown, 08/10/18) Past Surgical History Past Surgical Hx: other Social History Alcohol Use: none Smoking Status: Never smoker Drug Use: none Exam/Review of Systems Exam Vitals Vital Signs Date Temp Pulse Resp B/P (MAP) Pulse Ox O2 O2 Flow FiO2 Time Delivery Rate 12/08/18 92 12:00 12/08/18 25 100 50 11:41 12/08/18 81/60 (67) 10:30 12/08/18 Mechanical 10:00 Ventilator 12/08/18 97.6 08:00 12/07/18 6.0 12:50 Intake and Output 12/07/18 12/07/18 12/08/18 1515:00 23:00 07:00 IntakeIntake Total 492.500 ml 765.875 ml 344 ml OutputOutput Total 0 ml 500 ml 0 ml BalanceBalance 492.500 ml 265.875 ml 344 ml Exam PHYSICAL EXAMINATION: GENERAL: Cachectic ill-appearing intubated on pressors SKIN: dialysis catheter EYES: Pupils equal reactive to light, no discharge. EARS/NOSE AND THROAT: Ears normal, nose normal, oropharynx normal. NECK: Supple, no masses CHEST: Inspection within normal limits. CARDIOVASCULAR: Heart: Regular rate and rhythm, paced RESPIRATORY: Lungs clear to auscultation GASTROINTESTINAL AND LIVER: Abdomen: Soft, non tenderness, non-distended, no hernias, no masses, no organomegaly, no ascites, no guarding, no rebound tenderness, normoactive bowel sounds. Rectal: Deferred. Results Result Diagram: 12/08/18 1218 12/08/18 0531 Results 24hrs Laboratory Tests Test 12/07/18 14:31 12/07/18 15:52 12/07/18 17:26 12/07/18 17:51 Bedside Glucose 97 54 L 147 Blood Gas Blood arterial Specimen Source Arterial Blood 12/07/2018 4:10: Date Drawn 14 PM Arterial Blood 7.465 H pH (Temp corrected) Arterial Blood 33.7 L pCO2 (Temp correct) Arterial Blood 63.8 L pO2 (Temp corrected) Arterial Blood 23.7 HCO3 Arterial Blood 0.3 Base Excess Arterial Blood 92.5 L Oxygen Saturatio n Morgan Test N/A Arterial Blood Right Brachial Gas Puncture Site Arterial 0.2 Blood Carboxyhem oglobin Arterial Blood 0.2 Methemoglobin Blood Gas A-a O2 110.5 H Differential Oxyhemoglobin 92.1 L Percent Blood Gas 37.0 Temperature Blood Gas 20.0 Respiration Rate Blood Gas Actual 25 Respiration Rate Blood Gas VENT - AC Modality FiO2 30.0 Blood Gas Tidal 450.0 Volume Blood Gas Low 5.0 PEEP Setting Blood Gas KS Notified Whom Blood Gas 12/07/2018 4:23: Notified Time 22 PM Test 12/07/18 18:18 12/07/18 21:58 12/07/18 22:01 12/07/18 22:37 Bedside Glucose 82 32 *L < 13 *L 91 Test 12/07/18 22:55 12/07/18 23:16 12/07/18 23:49 12/08/18 00:17 Bedside Glucose 72 77 50 L 118 Test 12/08/18 00:32 12/08/18 02:01 12/08/18 02:11 12/08/18 02:37 Bedside Glucose 87 67 L 145 102 Test 12/08/18 03:44 12/08/18 04:45 12/08/18 05:31 12/08/18 05:47 Bedside Glucose 80 89 78 White Blood 6.9 # Count Red Blood Count 2.86 L Hemoglobin 8.7 L Hematocrit 26.0 L Mean Corpuscular 90.9 Volume Mean Corpuscular 30.4 Hemoglobin Mean Corpuscular 33.5 Hemoglobin Anh nt Red Cell 20.5 H Distribution Width Platelet Count 53 #L Mean Platelet Volume Immature 0.700 H Granulocytes % Neutrophils % Segmented 24 L Neutrophils % (Manual) Band Neutrophils 37 H % (Manual) Lymphocytes % Lymphocytes % 19 (Manual) Reactive 2 H Lymphocytes % (Manual) Monocytes % Monocytes % 12 H (Manual) Eosinophils % Basophils % Basophils % 2 (Manual) Metamyelocytes % 3 H (manual) Myelocytes % 1 H (Manual) Nucleated Red 0.0 Blood Cells % Immature 0.050 H Granulocytes # Neutrophils # Neutrophils # 1.8 (Manual) Band Neutrophils 2.5 H # Lymphocytes 1.3 (Manual) Lymphocytes # Reactive 0.1 H Lymphocytes # Monocytes # Monocytes # 0.8 (Manual) Eosinophils # Basophils # Basophils # 0.1 H (Manual) Metamyelocytes # 0.2 H Myelocytes # 0.0 Nucleated Red Blood Cells # Platelet SIG DECREASED Estimate Giant Platelets 24 H Polychromasia 1+ Hypochromasia 1+ Poikilocytosis 1+ Anisocytosis 1+ Macrocytosis 1+ Target Cells 2+ Ovalocytes 1+ Sodium Level 140 Potassium Level 4.5 Chloride Level 108 Carbon Dioxide 21 Level Anion Gap 11 Blood Urea 38 H Nitrogen Creatinine 1.34 H Est Glomerular 41 L Filtrat Rate mL/min Glucose Level 74 Calcium Level 8.2 L Phosphorus Level 3.7 Magnesium Level 1.7 Test 12/08/18 06:56 12/08/18 08:20 12/08/18 08:44 12/08/18 09:09 Bedside Glucose 71 53 L 166 104 Test 12/08/18 10:21 12/08/18 11:11 12/08/18 12:17 12/08/18 12:18 Bedside Glucose 83 85 46 *L Platelet Count 42 L Prothrombin Time 20.7 H Prothrombin Time 1.6 Ratio INR 1.77 International Normalized Ratio Activated 45.4 H Partial Thrombop last Time Thrombin Time 14.4 Test 12/08/18 12:50 12/08/18 13:07 Bedside Glucose 133 128 Medications Medication Current Medications Ondansetron HCl (Zofran Inj) 4 mg Q6H PRN IV NAUSEA AND/OR VOMITING Last administered on 12/07/18at 09:06; Admin Dose 4 MG; Start 11/21/18 at 05:30 Albuterol/ Ipratropium (Duoneb) 3 ml Q2H RESP THERAPY PRN NEB SHORTNESS OF BREATH; Start 11/21/18 at 05:30 Meropenem/Sodium Chloride 50 ml @ 100 mls/hr Q12 IVPB Last administered on 12/08/18at 09:10; Admin Dose 100 MLS/HR; Start 11/21/18 at 21:00 Caspofungin 50 mg/ Sodium Chloride 250 ml @ 250 mls/hr Q24H IVPB Last administered on 12/08/18at 13:12; Admin Dose 250 MLS/HR; Start 11/24/18 at 13:00 Miscellaneous Information 1 ea NOTE XX ; Start 11/23/18 at 13:30 Glucose (Glutose) 15 gm Q15M PRN PO DECREASED GLUCOSE; Start 11/23/18 at 13:30 Glucose (Glutose) 22.5 gm Q15M PRN PO DECREASED GLUCOSE; Start 11/23/18 at 13:30 Dextrose (D50w Syringe) 25 ml Q15M PRN IV DECREASED GLUCOSE Last administered on 12/08/18at 08:21; Admin Dose 25 ML; Start 11/23/18 at 13:30 Dextrose (D50w Syringe) 50 ml Q15M PRN IV DECREASED GLUCOSE Last administered on 12/08/18at 12:17; Admin Dose 50 ML; Start 11/23/18 at 13:30 Glucagon (Glucagen) 1 mg Q15M PRN IM DECREASED GLUCOSE; Start 11/23/18 at 13:30 Glucose (Glutose) 15 gm Q15M PRN BUCCAL DECREASED GLUCOSE; Start 11/23/18 at 13:30 Propofol 100 ml @ 1.59 mls/hr Q12H IV Last administered on 12/05/18at 12:00; Admin Dose 0 MLS/HR; Start 11/24/18 at 00:00 Phenylephrine HCl 80 mg/Dextrose 250 ml @ 18.75 mls/ hr TITRATE IV ; Start 11/24/18 at 00:00 Alteplase, Recombinant (Cathflo (Activase)) 2 mg MAY REPEAT X1 PRN CATHETER IF CATHETER REMAINS OCCULUDED Last administered on 12/02/18 15:47; Admin Dose 2 MG; Start 11/26/18 at 03:00 Albumin Human 100 ml @ 100 mls/hr DURING DIALYSIS PRN IV HYPOTENSION DURING HD Last administered on 12/08/18 08:52; Admin Dose 100 MLS/HR; Start 11/26/18 at 14:00 Diagnostic Test (Pha) (Accu-Chek) 1 ea Q4 XX Last administered on 12/08/18 05:49; Admin Dose 1 EA; Start 11/27/18 at 13:00 Levothyroxine Sodium (Synthroid) 75 mcg BEFORE BREAKFAST NGT Last administered on 12/07/18 08:58; Admin Dose 75 MCG; Start 11/29/18 at 07:00 Midazolam HCl 50 ml @ 1 mls/hr TITRATE IV Last administered on 11/30/18 05:15; Admin Dose 50 MLS/HR; Start 11/29/18 at 09:00 Sodium Chloride 154 meq/Dextrose 1,038.5 ml @ 70 mls/hr [id number] IV Last administered on 12/07/18 23:22; Admin Dose 45 MLS/HR; Start 11/30/18 at 10:00 Collagenase (Santyl) 1 applic DAILY TOP Last administered on 12/08/18 09:10; Admin Dose 1 APPLIC; Start 12/01/18 at 16:30 Amiodarone HCl (Cordarone) 200 mg BID NGT Last administered on 12/07/18 23:56; Admin Dose 200 MG; Start 12/03/18 at 21:00 Epoetin Margarito-epbx (Retacrit) 6,000 unit MoWeFr@1700 SC Last administered on 12/07/18 17:02; Admin Dose 6,000 UNIT; Start 12/07/18 at 17:00 Acetaminophen (Tylenol Liquid) 650 mg Q6H PRN NGT PAIN LEVEL 1-3 OR FEVER; Start 12/06/18 at 09:00 Famotidine (Pepcid) 20 mg DAILY NGT Last administered on 12/07/18 08:58; Admin Dose 20 MG; Start 12/06/18 at 09:00 Folic Acid (Folic Acid) 1 mg DAILY NGT Last administered on 12/07/18 08:59; Admin Dose 1 MG; Start 12/06/18 at 09:00 Midodrine (Proamatine) 5 mg TID@09,13,17 GTB Last administered on 12/07/18 08:58; Admin Dose 5 MG; Start 12/07/18 at 09:00 Diagnostic Test (Pha) (Accu-Chek) 1 ea Q1H XX Last administered on 12/08/18 12:17; Admin Dose 1 EA; Start 12/08/18 at 05:00 Norepinephrine 32 mg/Dextrose 250 ml @ 0.47 mls/hr TITRATE IV Last administered on 12/08/18 11:18; Admin Dose 12.19 MLS/HR; Start 12/08/18 at 09:00 [place] Dec 08, 2018 13:39
--- NOTE | 2018-12-08 13:55 | PN ---
Date/Time of Note Date/Time of Note DATE: 12/08/18 TIME: 13:52 Assessment/Plan VTE Prophylaxis Risk score (from Nsg)>0 risk: 13 SCD applied (from Nsg): Yes Pharmacological prophylaxis: heparin Lines/Catheters IV Catheter Type (from Nrsg): Mid Line Urinary Cath still in place: No Assessment/Plan Hospital Course Intubated, apeasr comfortable Chronically ill appearing Lungs clear Distended belly, firm masses Peripheral edema present LUE wound wrapped 58 yo female with ESRD, cirrohsihs, DMII presents with hypoglycemia, leg infection. Suffered cardiac and respiratory arrest, now intubated Acute respiratory failure: - MV per pulm - Will need trach Hypoglycemia: No history of diabetes and patient not on any insulin or sulfonylurea or any other diabetic medication - Continue IV dextrose and tube feeds Left lower extremity wound - Antibiotics per ID -Venous study was negative for DVT A Fib: - Amiodarone ESRD with fluid overload - HD per nephrology Pancytopenia with coagulopathy, thrombocytopenia: Patient had workup here during recent hospitalization. -Thrombocytopenia was thought to be secondary to HIT but may be related to liver disease -Per son, patient did receive platelet transfusion at [facility] -Picture of pancytopenia with macrocytic anemia and coagulopathy does appear consistent with liver disease, await liver ultrasound Hypothyroidism: Continue Synthroid History of pacemaker: No acute issue Ascites secondary to fluid overload and/or liver disease: Status post paracentesis 3 weeks ago with removal of 4.5 L - s/p paracentesis, in addition patient's blood pressure is low 11. Chronic peritoneal dialysis: This is not being used. Not being removed because of the severe thrombocytopenia. This can be addressed at [facility] where she usually gets her care 12. Failure to thrive: Patient is very cachectic -Nutrition consult Prophylaxis: SCDs DC planning: Poor prognosis. Continue goals of care discussions with family. So far unwilling to consider withdrawal of care. Very upset to be asked about it and don't want us to bring it up again Result Diagram: 12/08/18 1218 12/08/18 0531 Results 24hrs Laboratory Tests Test 12/07/18 14:31 12/07/18 15:52 12/07/18 17:26 12/07/18 17:51 Bedside Glucose 97 54 L 147 Blood Gas Blood arterial Specimen Source Arterial Blood 12/07/2018 4:10: Date Drawn 14 PM Arterial Blood 7.465 H pH (Temp corrected) Arterial Blood 33.7 L pCO2 (Temp correct) Arterial Blood 63.8 L pO2 (Temp corrected) Arterial Blood 23.7 HCO3 Arterial Blood 0.3 Base Excess Arterial Blood 92.5 L Oxygen Saturatio n Morgan Test N/A Arterial Blood Right Brachial Gas Puncture Site Arterial 0.2 Blood Carboxyhem oglobin Arterial Blood 0.2 Methemoglobin Blood Gas A-a O2 110.5 H Differential Oxyhemoglobin 92.1 L Percent Blood Gas 37.0 Temperature Blood Gas 20.0 Respiration Rate Blood Gas Actual 25 Respiration Rate Blood Gas VENT - AC Modality FiO2 30.0 Blood Gas Tidal 450.0 Volume Blood Gas Low 5.0 PEEP Setting Blood Gas [place] Notified Whom Blood Gas 12/07/2018 4:23: Notified Time 22 PM Test 12/07/18 18:18 12/07/18 21:58 12/07/18 22:01 12/07/18 22:37 Bedside Glucose 82 32 *L < 13 *L 91 Test 12/07/18 22:55 12/07/18 23:16 12/07/18 23:49 12/08/18 00:17 Bedside Glucose 72 77 50 L 118 Test 12/08/18 00:32 12/08/18 02:01 12/08/18 02:11 12/08/18 02:37 Bedside Glucose 87 67 L 145 102 Test 12/08/18 03:44 12/08/18 04:45 12/08/18 05:31 12/08/18 05:47 Bedside Glucose 80 89 78 White Blood 6.9 # Count Red Blood Count 2.86 L Hemoglobin 8.7 L Hematocrit 26.0 L Mean Corpuscular 90.9 Volume Mean Corpuscular 30.4 Hemoglobin Mean Corpuscular 33.5 Hemoglobin Anh nt Red Cell 20.5 H Distribution Width Platelet Count 53 #L Mean Platelet Volume Immature 0.700 H Granulocytes % Neutrophils % Segmented 24 L Neutrophils % (Manual) Band Neutrophils 37 H % (Manual) Lymphocytes % Lymphocytes % 19 (Manual) Reactive 2 H Lymphocytes % (Manual) Monocytes % Monocytes % 12 H (Manual) Eosinophils % Basophils % Basophils % 2 (Manual) Metamyelocytes % 3 H (manual) Myelocytes % 1 H (Manual) Nucleated Red 0.0 Blood Cells % Immature 0.050 H Granulocytes # Neutrophils # Neutrophils # 1.8 (Manual) Band Neutrophils 2.5 H # Lymphocytes 1.3 (Manual) Lymphocytes # Reactive 0.1 H Lymphocytes # Monocytes # Monocytes # 0.8 (Manual) Eosinophils # Basophils # Basophils # 0.1 H (Manual) Metamyelocytes # 0.2 H Myelocytes # 0.0 Nucleated Red Blood Cells # Platelet SIG DECREASED Estimate Giant Platelets 24 H Polychromasia 1+ Hypochromasia 1+ Poikilocytosis 1+ Anisocytosis 1+ Macrocytosis 1+ Target Cells 2+ Ovalocytes 1+ Sodium Level 140 Potassium Level 4.5 Chloride Level 108 Carbon Dioxide 21 Level Anion Gap 11 Blood Urea 38 H Nitrogen Creatinine 1.34 H Est Glomerular 41 L Filtrat Rate mL/min Glucose Level 74 Calcium Level 8.2 L Phosphorus Level 3.7 Magnesium Level 1.7 Test 12/08/18 06:56 12/08/18 08:20 12/08/18 08:44 12/08/18 09:09 Bedside Glucose 71 53 L 166 104 Test 12/08/18 10:21 12/08/18 11:11 12/08/18 12:17 12/08/18 12:18 Bedside Glucose 83 85 46 *L Platelet Count 42 L Prothrombin Time 20.7 H Prothrombin Time 1.6 Ratio INR 1.77 International Normalized Ratio Activated 45.4 H Partial Thrombop last Time Thrombin Time 14.4 Test 12/08/18 12:50 12/08/18 13:07 Bedside Glucose 133 128 Subjective 24 Hr Interval Summary Free Text/Dictation Remians intubated Follows commands Exam/Review of Systems Exam Vitals Vital Signs Date Temp Pulse Resp B/P (MAP) Pulse Ox O2 O2 Flow FiO2 Time Delivery Rate 12/08/18 92 12:00 12/08/18 25 100 50 11:41 12/08/18 81/60 (67) 10:30 12/08/18 Mechanical 10:00 Ventilator 12/08/18 97.6 08:00 12/07/18 6.0 12:50 Intake and Output 12/07/18 12/07/18 12/08/18 1515:00 23:00 07:00 IntakeIntake Total 492.500 ml 765.875 ml 344 ml OutputOutput Total 0 ml 500 ml 0 ml BalanceBalance 492.500 ml 265.875 ml 344 ml Results Results 24hrs Laboratory Tests Test 12/07/18 14:31 12/07/18 15:52 12/07/18 17:26 12/07/18 17:51 Bedside Glucose 97 54 L 147 Blood Gas Blood arterial Specimen Source Arterial Blood 12/07/2018 4:10: Date Drawn 14 PM Arterial Blood 7.465 H pH (Temp corrected) Arterial Blood 33.7 L pCO2 (Temp correct) Arterial Blood 63.8 L pO2 (Temp corrected) Arterial Blood 23.7 HCO3 Arterial Blood 0.3 Base Excess Arterial Blood 92.5 L Oxygen Saturatio n Morgan Test N/A Arterial Blood Right Brachial Gas Puncture Site Arterial 0.2 Blood Carboxyhem oglobin Arterial Blood 0.2 Methemoglobin Blood Gas A-a O2 110.5 H Differential Oxyhemoglobin 92.1 L Percent Blood Gas 37.0 Temperature Blood Gas 20.0 Respiration Rate Blood Gas Actual 25 Respiration Rate Blood Gas VENT - AC Modality FiO2 30.0 Blood Gas Tidal 450.0 Volume Blood Gas Low 5.0 PEEP Setting Blood Gas [place] Notified Whom Blood Gas 12/07/2018 4:23: Notified Time 22 PM Test 12/07/18 18:18 12/07/18 21:58 12/07/18 22:01 12/07/18 22:37 Bedside Glucose 82 32 *L < 13 *L 91 Test 12/07/18 22:55 12/07/18 23:16 12/07/18 23:49 12/08/18 00:17 Bedside Glucose 72 77 50 L 118 Test 12/08/18 00:32 12/08/18 02:01 12/08/18 02:11 12/08/18 02:37 Bedside Glucose 87 67 L 145 102 Test 12/08/18 03:44 12/08/18 04:45 12/08/18 05:31 12/08/18 05:47 Bedside Glucose 80 89 78 White Blood 6.9 # Count Red Blood Count 2.86 L Hemoglobin 8.7 L Hematocrit 26.0 L Mean Corpuscular 90.9 Volume Mean Corpuscular 30.4 Hemoglobin Mean Corpuscular 33.5 Hemoglobin Anh nt Red Cell 20.5 H Distribution Width Platelet Count 53 #L Mean Platelet Volume Immature 0.700 H Granulocytes % Neutrophils % Segmented 24 L Neutrophils % (Manual) Band Neutrophils 37 H % (Manual) Lymphocytes % Lymphocytes % 19 (Manual) Reactive 2 H Lymphocytes % (Manual) Monocytes % Monocytes % 12 H (Manual) Eosinophils % Basophils % Basophils % 2 (Manual) Metamyelocytes % 3 H (manual) Myelocytes % 1 H (Manual) Nucleated Red 0.0 Blood Cells % Immature 0.050 H Granulocytes # Neutrophils # Neutrophils # 1.8 (Manual) Band Neutrophils 2.5 H # Lymphocytes 1.3 (Manual) Lymphocytes # Reactive 0.1 H Lymphocytes # Monocytes # Monocytes # 0.8 (Manual) Eosinophils # Basophils # Basophils # 0.1 H (Manual) Metamyelocytes # 0.2 H Myelocytes # 0.0 Nucleated Red Blood Cells # Platelet SIG DECREASED Estimate Giant Platelets 24 H Polychromasia 1+ Hypochromasia 1+ Poikilocytosis 1+ Anisocytosis 1+ Macrocytosis 1+ Target Cells 2+ Ovalocytes 1+ Sodium Level 140 Potassium Level 4.5 Chloride Level 108 Carbon Dioxide 21 Level Anion Gap 11 Blood Urea 38 H Nitrogen Creatinine 1.34 H Est Glomerular 41 L Filtrat Rate mL/min Glucose Level 74 Calcium Level 8.2 L Phosphorus Level 3.7 Magnesium Level 1.7 Test 12/08/18 06:56 12/08/18 08:20 12/08/18 08:44 12/08/18 09:09 Bedside Glucose 71 53 L 166 104 Test 12/08/18 10:21 12/08/18 11:11 12/08/18 12:17 12/08/18 12:18 Bedside Glucose 83 85 46 *L Platelet Count 42 L Prothrombin Time 20.7 H Prothrombin Time 1.6 Ratio INR 1.77 International Normalized Ratio Activated 45.4 H Partial Thrombop last Time Thrombin Time 14.4 Test 12/08/18 12:50 12/08/18 13:07 Bedside Glucose 133 128 Medications Medication Current Medications Ondansetron HCl (Zofran Inj) 4 mg Q6H PRN IV NAUSEA AND/OR VOMITING Last administered on 12/07/18at 09:06; Admin Dose 4 MG; Start 11/21/18 at 05:30 Albuterol/ Ipratropium (Duoneb) 3 ml Q2H RESP THERAPY PRN NEB SHORTNESS OF BREATH; Start 11/21/18 at 05:30 Meropenem/Sodium Chloride 50 ml @ 100 mls/hr Q12 IVPB Last administered on 12/08/18at 09:10; Admin Dose 100 MLS/HR; Start 11/21/18 at 21:00 Caspofungin 50 mg/ Sodium Chloride 250 ml @ 250 mls/hr Q24H IVPB Last administered on 12/08/18 13:12; Admin Dose 250 MLS/HR; Start 11/24/18 at 13:00 Miscellaneous Information 1 ea NOTE XX ; Start 11/23/18 at 13:30 Glucose (Glutose) 15 gm Q15M PRN PO DECREASED GLUCOSE; Start 11/23/18 at 13:30 Glucose (Glutose) 22.5 gm Q15M PRN PO DECREASED GLUCOSE; Start 11/23/18 at 13:30 Dextrose (D50w Syringe) 25 ml Q15M PRN IV DECREASED GLUCOSE Last administered on 12/08/18 08:21; Admin Dose 25 ML; Start 11/23/18 at 13:30 Dextrose (D50w Syringe) 50 ml Q15M PRN IV DECREASED GLUCOSE Last administered on 12/08/18 12:17; Admin Dose 50 ML; Start 11/23/18 at 13:30 Glucagon (Glucagen) 1 mg Q15M PRN IM DECREASED GLUCOSE; Start 11/23/18 at 13:30 Glucose (Glutose) 15 gm Q15M PRN BUCCAL DECREASED GLUCOSE; Start 11/23/18 at 13:30 Propofol 100 ml @ 1.59 mls/hr Q12H IV Last administered on 12/05/18 12:00; Admin Dose 0 MLS/HR; Start 11/24/18 at 00:00 Phenylephrine HCl 80 mg/Dextrose 250 ml @ 18.75 mls/ hr TITRATE IV ; Start 11/24/18 at 00:00 Alteplase, Recombinant (Cathflo (Activase)) 2 mg MAY REPEAT X1 PRN CATHETER IF CATHETER REMAINS OCCULUDED Last administered on 12/02/18 15:47; Admin Dose 2 MG; Start 11/26/18 at 03:00 Albumin Human 100 ml @ 100 mls/hr DURING DIALYSIS PRN IV HYPOTENSION DURING HD Last administered on 12/08/18 08:52; Admin Dose 100 MLS/HR; Start 11/26/18 at 14:00 Diagnostic Test (Pha) (Accu-Chek) 1 ea Q4 XX Last administered on 12/08/18 05 :49; Admin Dose 1 EA; Start 11/27/18 at 13:00 Levothyroxine Sodium (Synthroid) 75 mcg BEFORE BREAKFAST NGT Last administered on 12/07/18 08:58; Admin Dose 75 MCG; Start 11/29/18 at 07:00 Midazolam HCl 50 ml @ 1 mls/hr TITRATE IV Last administered on 11/30/18 05:15; Admin Dose 50 MLS/HR; Start 11/29/18 at 09:00 Sodium Chloride 154 meq/Dextrose 1,038.5 ml @ 70 mls/hr [id number] IV Last administered on 12/07/18 23:22; Admin Dose 45 MLS/HR; Start 11/30/18 at 10:00 Collagenase (Santyl) 1 applic DAILY TOP Last administered on 12/08/18 09:10; Admin Dose 1 APPLIC; Start 12/01/18 at 16:30 Amiodarone HCl (Cordarone) 200 mg BID NGT Last administered on 12/07/18 23:56; Admin Dose 200 MG; Start 12/03/18 at 21:00 Epoetin Margarito-epbx (Retacrit) 6,000 unit MoWeFr@1700 SC Last administered on 12/07/18 17:02; Admin Dose 6,000 UNIT; Start 12/07/18 at 17:00 Acetaminophen (Tylenol Liquid) 650 mg Q6H PRN NGT PAIN LEVEL 1-3 OR FEVER; Start 12/06/18 at 09:00 Famotidine (Pepcid) 20 mg DAILY NGT Last administered on 12/07/18 08:58; Admin Dose 20 MG; Start 12/06/18 at 09:00 Folic Acid (Folic Acid) 1 mg DAILY NGT Last administered on 12/07/18 08:59; Admin Dose 1 MG; Start 12/06/18 at 09:00 Midodrine (Proamatine) 5 mg TID@,,17 GTB Last administered on 12/07/18 08:58; Admin Dose 5 MG; Start 12/07/18 at 09:00 Diagnostic Test (Pha) (Accu-Chek) 1 ea Q1H XX Last administered on 12/08/18 12 :17; Admin Dose 1 EA; Start 12/08/18 at 05:00 Norepinephrine 32 mg/Dextrose 250 ml @ 0.47 mls/hr TITRATE IV Last administered on 12/08/18at 11:18; Admin Dose 12.19 MLS/HR; Start 12/08/18 at 09:00 JOSLYN LANDRUM MD Dec 08, 2018 13:55
[2018-12-08] MEDS: SODIUM CHLORIDE 23.4% 154 MEQ in DEXTROSE 10% 1,000 ML IV SCH (13:56)
--- NOTE | 2018-12-08 14:09 | CONS ---
Assessment/Plan Assessment/Plan Hospital Course (Demo Recall) No acute changes patient remains intubated, on pressors afebrile. WBC 6.9 H&H 8.7 and 26 platelets 553 ounce 37 Chest x-ray this morning revealed no definite congestive heart failure. Bilater al small pleural effusion. Please see full report in the chart Antimicrobials: Cancidas, meropenem Microbiology: Blood culture on admission grew Klebsiella ESBL, repeat blood cultures negative, left thigh wound culture grew Klebsiella ESBL and Leah albicans Allergy: Zosyn, vancomycin Indwelling: Right upper thigh Davie catheter, left femoral triple-lumen catheter, endotracheal tube, orogastric tube, midline Physical examination: This is a chronically ill-appearing cachectic middle-aged woman who is laying comfortably in bed. Head atraumatic normocephalic. Neck is supple. Chest rise symmetrical. Breath sounds diminished bases. Heart: S1-S2, irreg. Abdomen distended. Bowel sounds hypoactive. Extremities with bilateral edema, cyanotic, multiple ecchymotic areas and bruises, left upper thigh dressing present is Assessment: 1. Sepsis with shock 2. Acute hypoxemic respiratory failure secondary to CHF exacerbation/probable pneumonia 3. Klebsiella ESBL bacteremia likely 2 to #4 4. 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 End-stage renal disease, hemodialysis dependent 6. Atrial fibrillation/PPM 7. Unstageable sacral decubitus 8. History of peritoneal dialysis with peritoneal dialysis still in place 9. Ascites status post paracentesis 3 weeks ago 10. Failure to thrive 11. Progressive thrombocytopenia 12. B mastoiditis and acute sinusitis per CT Plan: Remains unchanged, continue antibiotics indefinitely, vent management per pulmonary, prognosis poor Consultation Date/Type/Reason Admit Date/Time Nov 21, 2018 at 04:53 Initial Consult Date Type of Consult id Requesting Provider: RIKA STOCK Date/Time of Note DATE: 12/08/18 TIME: 14:08 Exam/Review of Systems Exam Vitals Vital Signs Date Temp Pulse Resp B/P (MAP) Pulse Ox O2 O2 Flow FiO2 Time Delivery Rate 12/08/18 93 25 98 40 13:59 12/08/18 81/60 (67) 10:30 12/08/18 Mechanical 10:00 Ventilator 12/08/18 97.6 08:00 12/07/18 6.0 12:50 Intake and Output 12/07/18 12/07/18 12/08/18 1515:00 23:00 07:00 IntakeIntake Total 492.500 ml 765.875 ml 344 ml OutputOutput Total 0 ml 500 ml 0 ml BalanceBalance 492.500 ml 265.875 ml 344 ml Results Result Diagram: 12/08/18 1218 12/08/18 0531 Results 24hrs Laboratory Tests Test 12/07/18 14:31 12/07/18 15:52 12/07/18 17:26 12/07/18 17:51 Bedside Glucose 97 54 L 147 Blood Gas Blood arterial Specimen Source Arterial Blood 12/07/2018 4:10: Date Drawn 14 PM Arterial Blood 7.465 H pH (Temp corrected) Arterial Blood 33.7 L pCO2 (Temp correct) Arterial Blood 63.8 L pO2 (Temp corrected) Arterial Blood 23.7 HCO3 Arterial Blood 0.3 Base Excess Arterial Blood 92.5 L Oxygen Saturatio n Morgan Test N/A Arterial Blood Right Brachial Gas Puncture Site Arterial 0.2 Blood Carboxyhem oglobin Arterial Blood 0.2 Methemoglobin Blood Gas A-a O2 110.5 H Differential Oxyhemoglobin 92.1 L Percent Blood Gas 37.0 Temperature Blood Gas 20.0 Respiration Rate Blood Gas Actual 25 Respiration Rate Blood Gas VENT - AC Modality FiO2 30.0 Blood Gas Tidal 450.0 Volume Blood Gas Low 5.0 PEEP Setting Blood Gas [place] Notified Whom Blood Gas 12/07/2018 4:23: Notified Time 22 PM Test 12/07/18 18:18 12/07/18 21:58 12/07/18 22:01 12/07/18 22:37 Bedside Glucose 82 32 *L < 13 *L 91 Test 12/07/18 22:55 12/07/18 23:16 12/07/18 23:49 12/08/18 00:17 Bedside Glucose 72 77 50 L 118 Test 12/08/18 00:32 12/08/18 02:01 12/08/18 02:11 12/08/18 02:37 Bedside Glucose 87 67 L 145 102 Test 12/08/18 03:44 12/08/18 04:45 12/08/18 05:31 12/08/18 05:47 Bedside Glucose 80 89 78 White Blood 6.9 # Count Red Blood Count 2.86 L Hemoglobin 8.7 L Hematocrit 26.0 L Mean Corpuscular 90.9 Volume Mean Corpuscular 30.4 Hemoglobin Mean Corpuscular 33.5 Hemoglobin Anh nt Red Cell 20.5 H Distribution Width Platelet Count 53 #L Mean Platelet Volume Immature 0.700 H Granulocytes % Neutrophils % Segmented 24 L Neutrophils % (Manual) Band Neutrophils 37 H % (Manual) Lymphocytes % Lymphocytes % 19 (Manual) Reactive 2 H Lymphocytes % (Manual) Monocytes % Monocytes % 12 H (Manual) Eosinophils % Basophils % Basophils % 2 (Manual) Metamyelocytes % 3 H (manual) Myelocytes % 1 H (Manual) Nucleated Red 0.0 Blood Cells % Immature 0.050 H Granulocytes # Neutrophils # Neutrophils # 1.8 (Manual) Band Neutrophils 2.5 H # Lymphocytes 1.3 (Manual) Lymphocytes # Reactive 0.1 H Lymphocytes # Monocytes # Monocytes # 0.8 (Manual) Eosinophils # Basophils # Basophils # 0.1 H (Manual) Metamyelocytes # 0.2 H Myelocytes # 0.0 Nucleated Red Blood Cells # Platelet SIG DECREASED Estimate Giant Platelets 24 H Polychromasia 1+ Hypochromasia 1+ Poikilocytosis 1+ Anisocytosis 1+ Macrocytosis 1+ Target Cells 2+ Ovalocytes 1+ Sodium Level 140 Potassium Level 4.5 Chloride Level 108 Carbon Dioxide 21 Level Anion Gap 11 Blood Urea 38 H Nitrogen Creatinine 1.34 H Est Glomerular 41 L Filtrat Rate mL/min Glucose Level 74 Calcium Level 8.2 L Phosphorus Level 3.7 Magnesium Level 1.7 Test 12/08/18 06:56 12/08/18 08:20 12/08/18 08:44 12/08/18 09:09 Bedside Glucose 71 53 L 166 104 Test 12/08/18 10:21 12/08/18 11:11 12/08/18 12:17 12/08/18 12:18 Bedside Glucose 83 85 46 *L Platelet Count 42 L Prothrombin Time 20.7 H Prothrombin Time 1.6 Ratio INR 1.77 International Normalized Ratio Activated 45.4 H Partial Thrombop last Time Thrombin Time 14.4 Test 12/08/18 12:50 12/08/18 13:07 12/08/18 13:59 Bedside Glucose 133 128 99 Medications Medication Current Medications Ondansetron HCl (Zofran Inj) 4 mg Q6H PRN IV NAUSEA AND/OR VOMITING Last administered on 12/07/18at 09:06; Admin Dose 4 MG; Start 11/21/18 at 05:30 Albuterol/ Ipratropium (Duoneb) 3 ml Q2H RESP THERAPY PRN NEB SHORTNESS OF BREATH; Start 11/21/18 at 05:30 Meropenem/Sodium Chloride 50 ml @ 100 mls/hr Q12 IVPB Last administered on 12/08/18at 09:10; Admin Dose 100 MLS/HR; Start 11/21/18 at 21:00 Caspofungin 50 mg/ Sodium Chloride 250 ml @ 250 mls/hr Q24H IVPB Last administered on 12/08/18at 13:12; Admin Dose 250 MLS/HR; Start 11/24/18 at 13:00 Miscellaneous Information 1 ea NOTE XX ; Start 11/23/18 at 13:30 Glucose (Glutose) 15 gm Q15M PRN PO DECREASED GLUCOSE; Start 11/23/18 at 13:30 Glucose (Glutose) 22.5 gm Q15M PRN PO DECREASED GLUCOSE; Start 11/23/18 at 13:30 Dextrose (D50w Syringe) 25 ml Q15M PRN IV DECREASED GLUCOSE Last administered on 12/08/18at 08:21; Admin Dose 25 ML; Start 11/23/18 at 13:30 Dextrose (D50w Syringe) 50 ml Q15M PRN IV DECREASED GLUCOSE Last administered on 12/08/18at 12:17; Admin Dose 50 ML; Start 11/23/18 at 13:30 Glucagon (Glucagen) 1 mg Q15M PRN IM DECREASED GLUCOSE; Start 11/23/18 at 13:30 Glucose (Glutose) 15 gm Q15M PRN BUCCAL DECREASED GLUCOSE; Start 11/23/18 at 13:30 Propofol 100 ml @ 1.59 mls/hr Q12H IV Last administered on 12/05/18at 12:00; Admin Dose 0 MLS/HR; Start 11/24/18 at 00:00 Phenylephrine HCl 80 mg/Dextrose 250 ml @ 18.75 mls/ hr TITRATE IV ; Start 11/24/18 at 00:00 Alteplase, Recombinant (Cathflo (Activase)) 2 mg MAY REPEAT X1 PRN CATHETER IF CATHETER REMAINS OCCULUDED Last administered on 12/02/18 15:47; Admin Dose 2 MG; Start 11/26/18 at 03:00 Albumin Human 100 ml @ 100 mls/hr DURING DIALYSIS PRN IV HYPOTENSION DURING HD Last administered on 12/08/18 08:52; Admin Dose 100 MLS/HR; Start 11/26/18 at 14:00 Diagnostic Test (Pha) (Accu-Chek) 1 ea Q4 XX Last administered on 12/08/18 05:49; Admin Dose 1 EA; Start 11/27/18 at 13:00 Levothyroxine Sodium (Synthroid) 75 mcg BEFORE BREAKFAST NGT Last administered on 12/07/18 08:58; Admin Dose 75 MCG; Start 11/29/18 at 07:00 Midazolam HCl 50 ml @ 1 mls/hr TITRATE IV Last administered on 11/30/18 05:15; Admin Dose 50 MLS/HR; Start 11/29/18 at 09:00 Sodium Chloride 154 meq/Dextrose 1,038.5 ml @ 70 mls/hr [id number] IV Last administered on 12/08/18 13:56; Admin Dose 70 MLS/HR; Start 11/30/18 at 10:00 Collagenase (Santyl) 1 applic DAILY TOP Last administered on 12/08/18 09:10; Admin Dose 1 APPLIC; Start 12/01/18 at 16:30 Amiodarone HCl (Cordarone) 200 mg BID NGT Last administered on 12/07/18 23:56; Admin Dose 200 MG; Start 12/03/18 at 21:00 Epoetin Margarito-epbx (Retacrit) 6,000 unit MoWeFr@1700 SC Last administered on 12/07/18 17:02; Admin Dose 6,000 UNIT; Start 12/07/18 at 17:00 Acetaminophen (Tylenol Liquid) 650 mg Q6H PRN NGT PAIN LEVEL 1-3 OR FEVER; Start 12/06/18 at 09:00 Famotidine (Pepcid) 20 mg DAILY NGT Last administered on 12/07/18 08:58; Admin Dose 20 MG; Start 12/06/18 at 09:00 Folic Acid (Folic Acid) 1 mg DAILY NGT Last administered on 12/07/18 08:59; Admin Dose 1 MG; Start 12/06/18 at 09:00 Midodrine (Proamatine) 5 mg TID@09,13,17 GTB Last administered on 12/07/18at 08:58; Admin Dose 5 MG; Start 12/07/18 at 09:00 Diagnostic Test (Pha) (Accu-Chek) 1 ea Q1H XX Last administered on 12/08/18at 14:03; Admin Dose 1 EA; Start 12/08/18 at 05:00 Norepinephrine 32 mg/Dextrose 250 ml @ 0.47 mls/hr TITRATE IV Last administered on 12/08/18at 11:18; Admin Dose 12.19 MLS/HR; Start 12/08/18 at 09:00 KELSIE ELY NP Dec 08, 2018 14:09
[2018-12-09] VITALS (103 sets, daily range): BP systolic 75–132; BP diastolic 44–68; PULSE 62–99; RESP 0–32
[2018-12-09] MEDS: ACCU-CHEK XX SCH ×24 (01:00→22:56)
[2018-12-09] MEDS: DEXTROSE 50% 50 ML SYRINGE IV PRN ×4 (03:25→19:44)
[2018-12-09] MEDS: SODIUM CHLORIDE 23.4% 154 MEQ in DEXTROSE 10% 1,000 ML IV SCH (03:25)
[2018-12-09] MEDS: LEVOTHYROXINE 75 MCG TAB NGT SCH (06:13)
--- NOTE | 2018-12-09 08:14 | PN ---
DATE: 12/09/2018 SUBJECTIVE: The patient had hemodialysis yesterday. I was only able to only ultrafiltrate approxima tely 400 mL due to hemodynamic instability. The patient remains critically ill on pressor support. There is no hemoptysis, hematemesis or hematochezia. OBJECTIVE: VITAL SIGNS: Blood pressure is 103/56, respirations 17, pulse 92, temperature 98.6. HEENT: Head is normocephalic. NECK: Supple. HEART: Regular rate. LUNGS: Show diminished breath sounds at the base. ABDOMEN: Soft, nontender to palpation without rebound or guarding. EXTREMITIES: Negative for clubbing, cyanosis. Positive edema, diffuse anasarca. DERMATOLOGIC: No rashes. MUSCULOSKELETAL: No joint effusion. NEUROLOGIC: No change in exam. MEDICATIONS: Reviewed. LABORATORY DATA: Reviewed. IMAGING STUDIES: Reviewed. ASSESSMENT AND PLAN: 1. End-stage renal disease. The patient had hemodialysis yesterday. We will plan for dialysis agai n tomorrow. 2. Access. The patient has a Davie catheter in left femoral. We will place a consult with nakia vang to consider catheter exchange. 3. Volume overload with diffuse anasarca. Continue ultrafiltration with hemodialysis. 4. Septic shock secondary to pneumonia. Continue pressor support. Continue antibiotic therapy. 5. Anemia. Continue to monitor hemoglobin and hematocrit levels. Continue Epogen. 6. Mineral bone disorder, monitor calcium and phosphorus levels. 7. Hypernatremia, improved. 8. Ventilator-dependent respiratory failure. Vent settings and ABG was reviewed. Continue to monit or. 9. Acute encephalopathy, etiology is toxic metabolic. 10. Ascites, status post paracentesis. 11. Hypothyroidism. Continue Synthroid. 12. Dysphagia. Continue tube feeding. 13. Arrhythmia. Continue amiodarone. 14. Hypoglycemia. Continue dextrose drip. 15. Lower extremity wounds. Continue wound care. 16. Pulmonary arrest. Dictated By: SARIKA JOINER DO NR/NTS Conf#: [id number] DID#: [id number] CC: MANDY BATES MD; LORRAINE JOHNSON MD; JOSLYN LANDRUM MD;*EndCC*
[2018-12-09] MEDS: AMIODARONE 200 MG TAB NGT SCH ×2 (08:53→20:46)
[2018-12-09] MEDS: FAMOTIDINE 20 MG TAB NGT SCH (08:53)
[2018-12-09] MEDS: MIDODRINE 5 MG TAB GTB SCH ×3 (08:53→17:00)
[2018-12-09] MEDS: FOLIC ACID 1 MG TAB NGT SCH (08:53)
[2018-12-09] MEDS: COLLAGENASE 5 GM (UD JAR) TOP SCH (08:54)
[2018-12-09] MEDS: BALSAM PERU/CASTOR OIL 60 GM TUBE TOP SCH ×2 (08:54→20:46)
[2018-12-09] MEDS: MEROPENEM 500MG/50 ML (PMX) 50 ML IVPB SCH ×2 (08:54→20:46)
--- NOTE | 2018-12-09 11:28 | CONS ---
Consult Date/Type/Reason Admit Date/Time Nov 21, 2018 at 04:53 Initial Consult Date Type of Consult Pulmonary Requesting Provider: RIKA STOCK Date/Time of Note DATE: 12/09/18 TIME: 11:27 Subjective Patient appears comfortable on mechanical ventilation orally intubated awake and alert following reintubation. Objective Vital Signs Date Temp Pulse Resp B/P (MAP) Pulse Ox O2 O2 Flow FiO2 Time Delivery Rate 12/09/18 82 0 101/54 100 10:45 (70) 12/09/18 Mechanical 10:00 Ventilator 12/09/18 40 09:55 12/09/18 98.4 08:00 12/07/18 6.0 12:50 Intake and Output 12/08/18 12/08/18 12/09/18 1515:00 23:00 07:00 IntakeIntake Total 991.09 ml 642.70 ml 574 ml OutputOutput Total 1600 ml 5 ml 40 ml BalanceBalance -608.91 ml 637.70 ml 534 ml Exam GENERAL: Thin elderly cachectic lady on mechanical ventilation VITAL SIGNS: per chart NECK: Supple. No JVD or lymphadenopathy. CARDIAC EXAM: S1, S2. No added sounds or murmurs. CHEST: clear bilaterally, No added sounds, rales or wheezes ABDOMEN: Soft, nontender. No guarding or rebound. EXTREMITIES: No cyanosis, clubbing or edema. NEUROLOGIC: Generalized weakness. No focal deficits. Vent Setting Ventilator Support Mode: AC Fraction of Inspired Oxygen pe: 40 Positive End Expiratory Pressu: 5.0 Results/Medications Result Diagram: 12/09/18 0459 12/09/18 0459 Results 24 hrs Laboratory Tests Test 12/08/18 12:17 12/08/18 12:18 12/08/18 12:50 12/08/18 13:07 Bedside Glucose 46 *L 133 128 Platelet Count 42 L Prothrombin Time 20.7 H Prothrombin Time 1.6 Ratio INR 1.77 International Normalized Ratio Activated 45.4 H Partial Thrombop last Time Thrombin Time 14.4 Test 12/08/18 13:59 12/08/18 15:36 12/08/18 16:22 12/08/18 17:37 Bedside Glucose 99 89 80 67 L Test 12/08/18 18:13 12/08/18 18:31 12/08/18 18:59 12/08/18 20:40 Bedside Glucose 163 130 117 78 Test 12/08/18 22:11 12/08/18 23:10 12/08/18 23:31 12/08/18 23:58 Bedside Glucose 76 58 L 121 104 Test 12/09/18 00:51 12/09/18 02:10 12/09/18 03:18 12/09/18 03:35 Bedside Glucose 88 74 61 L 122 Test 12/09/18 04:05 12/09/18 04:50 12/09/18 04:58 12/09/18 04:59 Bedside Glucose 126 88 Lab Scanned BLOOD TRANSFUSI Report ON White Blood 9.1 # Count Red Blood Count 2.48 L Hemoglobin 7.6 L Hematocrit 22.9 L Mean Corpuscular 92.3 Volume Mean Corpuscular 30.6 Hemoglobin Mean Corpuscular 33.2 Hemoglobin Anh nt Red Cell 21.0 H Distribution Width Platelet Count 47 L Mean Platelet Volume Immature 0.900 H Granulocytes % Neutrophils % Segmented 33 L Neutrophils % (Manual) Band Neutrophils 38 H % (Manual) Lymphocytes % Lymphocytes % 20 (Manual) Monocytes % Monocytes % 7 (Manual) Eosinophils % Basophils % Myelocytes % 2 H (Manual) Nucleated Red 0.0 Blood Cells % Immature 0.080 H Granulocytes # Neutrophils # Neutrophils # 3.3 (Manual) Band Neutrophils 3.4 H # Lymphocytes 1.8 (Manual) Lymphocytes # Monocytes # Monocytes # 0.6 (Manual) Eosinophils # Basophils # Myelocytes # 0.1 H Nucleated Red Blood Cells # Platelet SIG DECREASED Estimate Giant Platelets 3 H Polychromasia 1+ Poikilocytosis 3+ Anisocytosis 2+ Macrocytosis 1+ Target Cells 2+ Sodium Level 141 Potassium Level 4.3 Chloride Level 108 Carbon Dioxide 25 Level Anion Gap 8 Blood Urea 26 #H Nitrogen Creatinine 1.04 H Est Glomerular 54 L Filtrat Rate mL/min Glucose Level 84 Calcium Level 8.6 Phosphorus Level 3.4 Magnesium Level 2.1 Random Cortisol 34.6 Test 12/09/18 05:50 12/09/18 08:33 12/09/18 09:06 12/09/18 10:05 Bedside Glucose 84 72 60 L 112 Test 12/09/18 11:16 Bedside Glucose 86 Medications Current Medications Ondansetron HCl (Zofran Inj) 4 mg Q6H PRN IV NAUSEA AND/OR VOMITING Last administered on 12/07/18 09:06; Admin Dose 4 MG; Start 11/21/18 at 05:30 Albuterol/ Ipratropium (Duoneb) 3 ml Q2H RESP THERAPY PRN NEB SHORTNESS OF BREATH; Start 11/21/18 at 05:30 Meropenem/Sodium Chloride 50 ml @ 100 mls/hr Q12 IVPB Last administered on 12/09/18at 08:54; Admin Dose 100 MLS/HR; Start 11/21/18 at 21:00 Caspofungin 50 mg/ Sodium Chloride 250 ml @ 250 mls/hr Q24H IVPB Last administered on 12/08/18 13:12; Admin Dose 250 MLS/HR; Start 11/24/18 at 13:00 Miscellaneous Information 1 ea NOTE XX ; Start 11/23/18 at 13:30 Glucose (Glutose) 15 gm Q15M PRN PO DECREASED GLUCOSE; Start 11/23/18 at 13:30 Glucose (Glutose) 22.5 gm Q15M PRN PO DECREASED GLUCOSE; Start 11/23/18 at 13:30 Dextrose (D50w Syringe) 25 ml Q15M PRN IV DECREASED GLUCOSE Last administered on 12/09/18at 03:25; Admin Dose 25 ML; Start 11/23/18 at 13:30 Dextrose (D50w Syringe) 50 ml Q15M PRN IV DECREASED GLUCOSE Last administered on 12/09/18at 09:10; Admin Dose 50 ML; Start 11/23/18 at 13:30 Glucagon (Glucagen) 1 mg Q15M PRN IM DECREASED GLUCOSE; Start 11/23/18 at 13:30 Glucose (Glutose) 15 gm Q15M PRN BUCCAL DECREASED GLUCOSE; Start 11/23/18 at 13:30 Propofol 100 ml @ 1.59 mls/hr Q12H IV Last administered on 12/05/18at 12:00; Admin Dose 0 MLS/HR; Start 11/24/18 at 00:00 Phenylephrine HCl 80 mg/Dextrose 250 ml @ 18.75 mls/ hr TITRATE IV ; Start 11/24/18 at 00:00 Alteplase, Recombinant (Cathflo (Activase)) 2 mg MAY REPEAT X1 PRN CATHETER IF CATHETER REMAINS OCCULUDED Last administered on 12/02/18at 15:47; Admin Dose 2 MG; Start 11/26/18 at 03:00 Albumin Human 100 ml @ 100 mls/hr DURING DIALYSIS PRN IV HYPOTENSION DURING HD Last administered on 12/08/18 08:52; Admin Dose 100 MLS/HR; Start 11/26/18 at 1 4:00 Levothyroxine Sodium (Synthroid) 75 mcg BEFORE BREAKFAST NGT Last administered on 12/07/18 08:58; Admin Dose 75 MCG; Start 11/29/18 at 07:00 Midazolam HCl 50 ml @ 1 mls/hr TITRATE IV Last administered on 11/30/18 05:15; Admin Dose 50 MLS/HR; Start 11/29/18 at 09:00 Sodium Chloride 154 meq/Dextrose 1,038.5 ml @ 70 mls/hr [id number] IV Last administered on 12/09/18 03:25; Admin Dose 70 MLS/HR; Start 11/30/18 at 10:00 Collagenase (Santyl) 1 applic DAILY TOP Last administered on 12/09/18 08:54; Admin Dose 1 APPLIC; Start 12/01/18 at 16:30 Amiodarone HCl (Cordarone) 200 mg BID NGT Last administered on 12/09/18 08:53; Admin Dose 200 MG; Start 12/03/18 at 21:00 Epoetin Margarito-epbx (Retacrit) 6,000 unit MoWeFr@1700 SC Last administered on 12/07/18 17:02; Admin Dose 6,000 UNIT; Start 12/07/18 at 17:00 Acetaminophen (Tylenol Liquid) 650 mg Q6H PRN NGT PAIN LEVEL 1-3 OR FEVER; Start 12/06/18 at 09:00 Famotidine (Pepcid) 20 mg DAILY NGT Last administered on 12/09/18 08:53; Admin Dose 20 MG; Start 12/06/18 at 09:00 Folic Acid (Folic Acid) 1 mg DAILY NGT Last administered on 12/09/18 08:53; Admin Dose 1 MG; Start 12/06/18 at 09:00 Midodrine (Proamatine) 5 mg TID@,13,17 GTB Last administered on 12/09/18 08:53; Admin Dose 5 MG; Start 12/07/18 at 09:00 Diagnostic Test (Pha) (Accu-Chek) 1 ea Q1H XX Last administered on 12/09/18at 11:16; Admin Dose 1 EA; Start 12/08/18 at 05:00 Norepinephrine 32 mg/Dextrose 250 ml @ 0.47 mls/hr TITRATE IV Last administered on 12/08/18at 11:18; Admin Dose 12.19 MLS/HR; Start 12/08/18 at 09:00 Assessment/Plan Hospital Course (Demo Recall) IMP: 1. Septic Shock 2. Gram Negative Bacteremia 3. Vent Dependent Resp Failure 4. ESRD on HD 5. Cardiomyopathy 6. Severe Thrombocytopenia 7. Anemia RECS: 1. Continue mechanical ventilation pending tracheostomy 2. Scheduled for G-tube today. 3. Titrate pressors to MAP > 65 mm Hg 4. HD/UF per Renal 5. Abx per ID 40 min cc time NINA MORRIS MD, [facility] December 09, 2018 11:28
[2018-12-09] MEDS: PROPOFOL 100 ML IV SCH ×3 (12:00→22:56)
--- NOTE | 2018-12-09 13:25 | CONS ---
Assessment/Plan Assessment/Plan Hospital Course (Demo Recall) No acute changes Remains on Levophed drip. Getting blood products. WBC today 9.1 platelets 47 Antimicrobials: Cancidas, meropenem Microbiology: Blood culture on admission grew Klebsiella ESBL, repeat blood cultures negative, left thigh wound culture grew Klebsiella ESBL and Leah albicans Allergy: Zosyn, vancomycin Indwelling: Right upper thigh Davie catheter, left femoral triple-lumen catheter, endotracheal tube, orogastric tube, midline Physical examination: This is a chronically ill-appearing cachectic middle-aged woman who is laying comfortably in bed. Head atraumatic normocephalic. Neck is supple. Chest rise symmetrical. Breath sounds diminished bases. Heart: S1-S2, irreg. Abdomen distended. Bowel sounds hypoactive. Extremities with bilateral edema, cyanotic, multiple ecchymotic areas and bruises, left upper thigh dressing present is Assessment: 1. Sepsis with shock 2. Acute hypoxemic respiratory failure secondary to CHF exacerbation/probable pneumonia 3. Klebsiella ESBL bacteremia likely 2 to #4 4. 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 End-stage renal disease, hemodialysis dependent 6. Atrial fibrillation/PPM 7. Unstageable sacral decubitus 8. History of peritoneal dialysis with peritoneal dialysis still in place 9. Ascites status post paracentesis 3 weeks ago 10. Failure to thrive 11. Progressive thrombocytopenia 12. B mastoiditis and acute sinusitis Plan: Remains unchanged, continue antibiotics indefinitely for infected graft, vent management per pulmonary, prognosis poor Consultation Date/Type/Reason Admit Date/Time Nov 21, 2018 at 04:53 Initial Consult Date Type of Consult id Requesting Provider: RIKA STOCK Date/Time of Note DATE: 12/09/18 TIME: 13:23 Exam/Review of Systems Exam Vitals Vital Signs Date Temp Pulse Resp B/P (MAP) Pulse Ox O2 O2 Flow FiO2 Time Delivery Rate 12/09/18 77 20 99 30 11:49 12/09/18 101/54 10:45 (70) 12/09/18 Mechanical 10:00 Ventilator 12/09/18 98.4 08:00 12/07/18 6.0 12:50 Intake and Output 12/08/18 12/08/18 12/09/18 1515:00 23:00 07:00 IntakeIntake Total 991.09 ml 642.70 ml 574 ml OutputOutput Total 1600 ml 5 ml 40 ml BalanceBalance -608.91 ml 637.70 ml 534 ml Results Result Diagram: 12/09/18 0459 12/09/18 0459 Results 24hrs Laboratory Tests Test 12/08/18 13:59 12/08/18 15:36 12/08/18 16:22 12/08/18 17:37 Bedside Glucose 99 89 80 67 L Test 12/08/18 18:13 12/08/18 18:31 12/08/18 18:59 12/08/18 20:40 Bedside Glucose 163 130 117 78 Test 12/08/18 22:11 12/08/18 23:10 12/08/18 23:31 12/08/18 23:58 Bedside Glucose 76 58 L 121 104 Test 12/09/18 00:51 12/09/18 02:10 12/09/18 03:18 12/09/18 03:35 Bedside Glucose 88 74 61 L 122 Test 12/09/18 04:05 12/09/18 04:50 12/09/18 04:58 12/09/18 04:59 Bedside Glucose 126 88 Lab Scanned BLOOD TRANSFUSI Report ON White Blood 9.1 # Count Red Blood Count 2.48 L Hemoglobin 7.6 L Hematocrit 22.9 L Mean Corpuscular 92.3 Volume Mean Corpuscular 30.6 Hemoglobin Mean Corpuscular 33.2 Hemoglobin Anh nt Red Cell 21.0 H Distribution Width Platelet Count 47 L Mean Platelet Volume Immature 0.900 H Granulocytes % Neutrophils % Segmented 33 L Neutrophils % (Manual) Band Neutrophils 38 H % (Manual) Lymphocytes % Lymphocytes % 20 (Manual) Monocytes % Monocytes % 7 (Manual) Eosinophils % Basophils % Myelocytes % 2 H (Manual) Nucleated Red 0.0 Blood Cells % Immature 0.080 H Granulocytes # Neutrophils # Neutrophils # 3.3 (Manual) Band Neutrophils 3.4 H # Lymphocytes 1.8 (Manual) Lymphocytes # Monocytes # Monocytes # 0.6 (Manual) Eosinophils # Basophils # Myelocytes # 0.1 H Nucleated Red Blood Cells # Platelet SIG DECREASED Estimate Giant Platelets 3 H Polychromasia 1+ Poikilocytosis 3+ Anisocytosis 2+ Macrocytosis 1+ Target Cells 2+ Sodium Level 141 Potassium Level 4.3 Chloride Level 108 Carbon Dioxide 25 Level Anion Gap 8 Blood Urea 26 #H Nitrogen Creatinine 1.04 H Est Glomerular 54 L Filtrat Rate mL/min Glucose Level 84 Calcium Level 8.6 Phosphorus Level 3.4 Magnesium Level 2.1 Random Cortisol 34.6 Test 12/09/18 05:50 12/09/18 08:33 12/09/18 09:06 12/09/18 10:05 Bedside Glucose 84 72 60 L 112 Test 12/09/18 11:16 12/09/18 12:05 Bedside Glucose 86 88 Medications Medication Current Medications Ondansetron HCl (Zofran Inj) 4 mg Q6H PRN IV NAUSEA AND/OR VOMITING Last administered on 12/07/18at 09:06; Admin Dose 4 MG; Start 11/21/18 at 05:30 Albuterol/ Ipratropium (Duoneb) 3 ml Q2H RESP THERAPY PRN NEB SHORTNESS OF BREATH; Start 11/21/18 at 05:30 Meropenem/Sodium Chloride 50 ml @ 100 mls/hr Q12 IVPB Last administered on 12/09/18at 08:54; Admin Dose 100 MLS/HR; Start 11/21/18 at 21:00 Caspofungin 50 mg/ Sodium Chloride 250 ml @ 250 mls/hr Q24H IVPB Last administered on 12/08/18at 13:12; Admin Dose 250 MLS/HR; Start 11/24/18 at 13:00 Miscellaneous Information 1 ea NOTE XX ; Start 11/23/18 at 13:30 Glucose (Glutose) 15 gm Q15M PRN PO DECREASED GLUCOSE; Start 11/23/18 at 13:30 Glucose (Glutose) 22.5 gm Q15M PRN PO DECREASED GLUCOSE; Start 11/23/18 at 13:30 Dextrose (D50w Syringe) 25 ml Q15M PRN IV DECREASED GLUCOSE Last administered on 12/09/18at 03:25; Admin Dose 25 ML; Start 11/23/18 at 13:30 Dextrose (D50w Syringe) 50 ml Q15M PRN IV DECREASED GLUCOSE Last administered on 12/09/18at 09:10; Admin Dose 50 ML; Start 11/23/18 at 13:30 Glucagon (Glucagen) 1 mg Q15M PRN IM DECREASED GLUCOSE; Start 11/23/18 at 13:30 Glucose (Glutose) 15 gm Q15M PRN BUCCAL DECREASED GLUCOSE; Start 11/23/18 at 13:30 Propofol 100 ml @ 1.59 mls/hr Q12H IV Last administered on 12/05/18 12:00; Admin Dose 0 MLS/HR; Start 11/24/18 at 00:00 Phenylephrine HCl 80 mg/Dextrose 250 ml @ 18.75 mls/ hr TITRATE IV ; Start 11/24/18 at 00:00 Alteplase, Recombinant (Cathflo (Activase)) 2 mg MAY REPEAT X1 PRN CATHETER IF CATHETER REMAINS OCCULUDED Last administered on 12/02/18 15:47; Admin Dose 2 MG; Start 11/26/18 at 03:00 Albumin Human 100 ml @ 100 mls/hr DURING DIALYSIS PRN IV HYPOTENSION DURING HD Last administered on 12/08/18 08:52; Admin Dose 100 MLS/HR; Start 11/26/18 at 14:00 Levothyroxine Sodium (Synthroid) 75 mcg BEFORE BREAKFAST NGT Last administered on 12/07/18 08:58; Admin Dose 75 MCG; Start 11/29/18 at 07:00 Midazolam HCl 50 ml @ 1 mls/hr TITRATE IV Last administered on 11/30/18 05:15; Admin Dose 50 MLS/HR; Start 11/29/18 at 09:00 Sodium Chloride 154 meq/Dextrose 1,038.5 ml @ 70 mls/hr [id number] IV Last administered on 12/09/18 03:25; Admin Dose 70 MLS/HR; Start 11/30/18 at 10:00 Collagenase (Santyl) 1 applic DAILY TOP Last administered on 12/09/18 08:54; Admin Dose 1 APPLIC; Start 12/01/18 at 16:30 Amiodarone HCl (Cordarone) 200 mg BID NGT Last administered on 12/09/18 08:53; Admin Dose 200 MG; Start 12/03/18 at 21:00 Epoetin Margarito-epbx (Retacrit) 6,000 unit MoWeFr@1700 SC Last administered on 12/07/18 17:02; Admin Dose 6,000 UNIT; Start 12/07/18 at 17:00 Acetaminophen (Tylenol Liquid) 650 mg Q6H PRN NGT PAIN LEVEL 1-3 OR FEVER; Start 12/06/18 at 09:00 Famotidine (Pepcid) 20 mg DAILY NGT Last administered on 12/09/18 08:53; Admin Dose 20 MG; Start 12/06/18 at 09:00 Folic Acid (Folic Acid) 1 mg DAILY NGT Last administered on 12/09/18 08:53; Admin Dose 1 MG; Start 12/06/18 at 09:00 Midodrine (Proamatine) 5 mg TID@09,13,17 GTB Last administered on 12/09/18 08:53; Admin Dose 5 MG; Start 12/07/18 at 09:00 Diagnostic Test (Pha) (Accu-Chek) 1 ea Q1H XX Last administered on 12/09/18 12:07; Admin Dose 1 EA; Start 12/08/18 at 05:00 Norepinephrine 32 mg/Dextrose 250 ml @ 0.47 mls/hr TITRATE IV Last administered on 12/08/18 11:18; Admin Dose 12.19 MLS/HR; Start 12/08/18 at 09:00 KELSIE ELY NP December 09, 2018 13:25
[2018-12-09] MEDS: CASPOFUNGIN 50 MG in SOD CHLORIDE 0.9% 250 ML IVPB SCH (13:34)
--- NOTE | 2018-12-09 14:30 | PN ---
Date/Time of Note Date/Time of Note DATE: 12/09/18 TIME: 14:29 Assessment/Plan VTE Prophylaxis Risk score (from Nsg)>0 risk: 12 SCD applied (from Nsg): Yes Pharmacological prophylaxis: heparin Lines/Catheters IV Catheter Type (from Nrsg): Mid Line Urinary Cath still in place: No Assessment/Plan Hospital Course Intubated, apears comfortable Chronically ill appearing Lungs clear Distended belly, firm masses Mild peripheral edema present LUE wound wrapped 58 yo female with ESRD, cirrohsihs, DMII presents with hypoglycemia, leg infection. Suffered cardiac and respiratory arrest, now intubated Acute respiratory failure: - MV per pulm - Will need trach, planned for tomorrw - EGD today Septic shock: - vasoprossors to MAP > 65 - Antibiotics per ID Hypoglycemia: No history of diabetes and patient not on any insulin or sulfonylurea or any other diabetic medication - Continue IV dextrose and tube feeds Left lower extremity wound - Antibiotics per ID -Venous study was negative for DVT A Fib: - Amiodarone ESRD with fluid overload - HD per nephrology Hypothyroidism: Continue Synthroid History of pacemaker: No acute issue Prophylaxis: SCDs DC planning: Poor prognosis. Continue goals of care discussions with family. So far unwilling to consider withdrawal of care. Very upset to be asked about it and don't want us to bring it up again Result Diagram: 12/09/18 0459 12/09/18 0459 Results 24hrs Laboratory Tests Test 12/08/18 15:36 12/08/18 16:22 12/08/18 17:37 12/08/18 18:13 Bedside Glucose 89 80 67 L 163 Test 12/08/18 18:31 12/08/18 18:59 12/08/18 20:40 12/08/18 22:11 Bedside Glucose 130 117 78 76 Test 12/08/18 23:10 12/08/18 23:31 12/08/18 23:58 12/09/18 00:51 Bedside Glucose 58 L 121 104 88 Test 12/09/18 02:10 12/09/18 03:18 12/09/18 03:35 12/09/18 04:05 Bedside Glucose 74 61 L 122 126 Test 12/09/18 04:50 12/09/18 04:58 12/09/18 04:59 12/09/18 05:50 Lab Scanned BLOOD TRANSFUSI Report ON Bedside Glucose 88 84 White Blood 9.1 # Count Red Blood Count 2.48 L Hemoglobin 7.6 L Hematocrit 22.9 L Mean Corpuscular 92.3 Volume Mean Corpuscular 30.6 Hemoglobin Mean Corpuscular 33.2 Hemoglobin Anh nt Red Cell 21.0 H Distribution Width Platelet Count 47 L Mean Platelet Volume Immature 0.900 H Granulocytes % Neutrophils % Segmented 33 L Neutrophils % (Manual) Band Neutrophils 38 H % (Manual) Lymphocytes % Lymphocytes % 20 (Manual) Monocytes % Monocytes % 7 (Manual) Eosinophils % Basophils % Myelocytes % 2 H (Manual) Nucleated Red 0.0 Blood Cells % Immature 0.080 H Granulocytes # Neutrophils # Neutrophils # 3.3 (Manual) Band Neutrophils 3.4 H # Lymphocytes 1.8 (Manual) Lymphocytes # Monocytes # Monocytes # 0.6 (Manual) Eosinophils # Basophils # Myelocytes # 0.1 H Nucleated Red Blood Cells # Platelet SIG DECREASED Estimate Giant Platelets 3 H Polychromasia 1+ Poikilocytosis 3+ Anisocytosis 2+ Macrocytosis 1+ Target Cells 2+ Sodium Level 141 Potassium Level 4.3 Chloride Level 108 Carbon Dioxide 25 Level Anion Gap 8 Blood Urea 26 #H Nitrogen Creatinine 1.04 H Est Glomerular 54 L Filtrat Rate mL/min Glucose Level 84 Calcium Level 8.6 Phosphorus Level 3.4 Magnesium Level 2.1 Random Cortisol 34.6 Test 12/09/18 08:33 12/09/18 09:06 12/09/18 10:05 12/09/18 11:16 Bedside Glucose 72 60 L 112 86 Test 12/09/18 12:05 12/09/18 13:23 12/09/18 13:56 12/09/18 14:13 Bedside Glucose 88 82 62 L 114 Subjective 24 Hr Interval Summary Free Text/Dictation Remains intubated Levophed at 6 Plan for EGD today Exam/Review of Systems Exam Vitals Vital Signs Date Temp Pulse Resp B/P (MAP) Pulse Ox O2 O2 Flow FiO2 Time Delivery Rate 12/09/18 77 20 97 30 13:43 12/09/18 101/54 10:45 (70) 12/09/18 Mechanical 10:00 Ventilator 12/09/18 98.4 08:00 12/07/18 6.0 12:50 Intake and Output 412/08/18 12/09/18 1515:00 23:00 07:00 IntakeIntake Total 991.09 ml 642.70 ml 574 ml OutputOutput Total 1600 ml 5 ml 40 ml BalanceBalance -608.91 ml 637.70 ml 534 ml Results Results 24hrs Laboratory Tests Test 12/08/18 15:36 12/08/18 16:22 12/08/18 17:37 12/08/18 18:13 Bedside Glucose 89 80 67 L 163 Test 12/08/18 18:31 12/08/18 18:59 12/08/18 20:40 12/08/18 22:11 Bedside Glucose 130 117 78 76 Test 12/08/18 23:10 12/08/18 23:31 12/08/18 23:58 12/09/18 00:51 Bedside Glucose 58 L 121 104 88 Test 12/09/18 02:10 12/09/18 03:18 12/09/18 03:35 12/09/18 04:05 Bedside Glucose 74 61 L 122 126 Test 12/09/18 04:50 12/09/18 04:58 12/09/18 04:59 12/09/18 05:50 Lab Scanned BLOOD TRANSFUSI Report ON Bedside Glucose 88 84 White Blood 9.1 # Count Red Blood Count 2.48 L Hemoglobin 7.6 L Hematocrit 22.9 L Mean Corpuscular 92.3 Volume Mean Corpuscular 30.6 Hemoglobin Mean Corpuscular 33.2 Hemoglobin Anh nt Red Cell 21.0 H Distribution Width Platelet Count 47 L Mean Platelet Volume Immature 0.900 H Granulocytes % Neutrophils % Segmented 33 L Neutrophils % (Manual) Band Neutrophils 38 H % (Manual) Lymphocytes % Lymphocytes % 20 (Manual) Monocytes % Monocytes % 7 (Manual) Eosinophils % Basophils % Myelocytes % 2 H (Manual) Nucleated Red 0.0 Blood Cells % Immature 0.080 H Granulocytes # Neutrophils # Neutrophils # 3.3 (Manual) Band Neutrophils 3.4 H # Lymphocytes 1.8 (Manual) Lymphocytes # Monocytes # Monocytes # 0.6 (Manual) Eosinophils # Basophils # Myelocytes # 0.1 H Nucleated Red Blood Cells # Platelet SIG DECREASED Estimate Giant Platelets 3 H Polychromasia 1+ Poikilocytosis 3+ Anisocytosis 2+ Macrocytosis 1+ Target Cells 2+ Sodium Level 141 Potassium Level 4.3 Chloride Level 108 Carbon Dioxide 25 Level Anion Gap 8 Blood Urea 26 #H Nitrogen Creatinine 1.04 H Est Glomerular 54 L Filtrat Rate mL/min Glucose Level 84 Calcium Level 8.6 Phosphorus Level 3.4 Magnesium Level 2.1 Random Cortisol 34.6 Test 12/09/18 08:33 12/09/18 09:06 12/09/18 10:05 12/09/18 11:16 Bedside Glucose 72 60 L 112 86 Test 12/09/18 12:05 12/09/18 13:23 12/09/18 13:56 12/09/18 14:13 Bedside Glucose 88 82 62 L 114 Medications Medication Current Medications Ondansetron HCl (Zofran Inj) 4 mg Q6H PRN IV NAUSEA AND/OR VOMITING Last administered on 12/07/18at 09:06; Admin Dose 4 MG; Start 11/21/18 at 05:30 Albuterol/ Ipratropium (Duoneb) 3 ml Q2H RESP THERAPY PRN NEB SHORTNESS OF BREATH; Start 11/21/18 at 05:30 Meropenem/Sodium Chloride 50 ml @ 100 mls/hr Q12 IVPB Last administered on 12/09/18at 08:54; Admin Dose 100 MLS/HR; Start 11/21/18 at 21:00 Caspofungin 50 mg/ Sodium Chloride 250 ml @ 250 mls/hr Q24H IVPB Last administered on 12/09/18at 13:34; Admin Dose 250 MLS/HR; Start 11/24/18 at 13:00 Miscellaneous Information 1 ea NOTE XX ; Start 11/23/18 at 13:30 Glucose (Glutose) 15 gm Q15M PRN PO DECREASED GLUCOSE; Start 11/23/18 at 13:30 Glucose (Glutose) 22.5 gm Q15M PRN PO DECREASED GLUCOSE; Start 11/23/18 at 13:30 Dextrose (D50w Syringe) 25 ml Q15M PRN IV DECREASED GLUCOSE Last administered on 12/09/18at 13:59; Admin Dose 25 ML; Start 11/23/18 at 13:30 Dextrose (D50w Syringe) 50 ml Q15M PRN IV DECREASED GLUCOSE Last administered on 12/09/18at 09:10; Admin Dose 50 ML; Start 11/23/18 at 13:30 Glucagon (Glucagen) 1 mg Q15M PRN IM DECREASED GLUCOSE; Start 11/23/18 at 13:30 Glucose (Glutose) 15 gm Q15M PRN BUCCAL DECREASED GLUCOSE; Start 11/23/18 at 13:30 Propofol 100 ml @ 1.59 mls/hr Q12H IV Last administered on 12/05/18 12:00; Admin Dose 0 MLS/HR; Start 11/24/18 at 00:00 Phenylephrine HCl 80 mg/Dextrose 250 ml @ 18.75 mls/ hr TITRATE IV ; Start 11/24/18 at 00:00 Alteplase, Recombinant (Cathflo (Activase)) 2 mg MAY REPEAT X1 PRN CATHETER IF CATHETER REMAINS OCCULUDED Last administered on 12/02/18 15:47; Admin Dose 2 MG; Start 11/26/18 at 03:00 Albumin Human 100 ml @ 100 mls/hr DURING DIALYSIS PRN IV HYPOTENSION DURING HD Last administered on 12/08/18 08:52; Admin Dose 100 MLS/HR; Start 11/26/18 at 14:00 Levothyroxine Sodium (Synthroid) 75 mcg BEFORE BREAKFAST NGT Last administered on 12/07/18 08:58; Admin Dose 75 MCG; Start 11/29/18 at 07:00 Midazolam HCl 50 ml @ 1 mls/hr TITRATE IV Last administered on 11/30/18 05:15; Admin Dose 50 MLS/HR; Start 11/29/18 at 09:00 Sodium Chloride 154 meq/Dextrose 1,038.5 ml @ 70 mls/hr [id number] IV Last administered on 12/09/18 03:25; Admin Dose 70 MLS/HR; Start 11/30/18 at 10:00 Collagenase (Santyl) 1 applic DAILY TOP Last administered on 12/09/18 08:54; Admin Dose 1 APPLIC; Start 12/01/18 at 16:30 Amiodarone HCl (Cordarone) 200 mg BID NGT Last administered on 12/09/18 08:53; Admin Dose 200 MG; Start 12/03/18 at 21:00 Epoetin Margarito-epbx (Retacrit) 6,000 unit MoWeFr@1700 SC Last administered on 12/07/18 17:02; Admin Dose 6,000 UNIT; Start 12/07/18 at 17:00 Acetaminophen (Tylenol Liquid) 650 mg Q6H PRN NGT PAIN LEVEL 1-3 OR FEVER; Start 12/06/18 at 09:00 Famotidine (Pepcid) 20 mg DAILY NGT Last administered on 12/09/18 08:53; Admin Dose 20 MG; Start 12/06/18 at 09:00 Folic Acid (Folic Acid) 1 mg DAILY NGT Last administered on 12/09/18 08:53; Admin Dose 1 MG; Start 12/06/18 at 09:00 Midodrine (Proamatine) 5 mg TID@09,13,17 GTB Last administered on 12/09/18 13:34; Admin Dose 5 MG; Start 12/07/18 at 09:00 Diagnostic Test (Pha) (Accu-Chek) 1 ea Q1H XX Last administered on 12/09/18 13:56; Admin Dose 1 EA; Start 12/08/18 at 05:00 Norepinephrine 32 mg/Dextrose 250 ml @ 0.47 mls/hr TITRATE IV Last administered on 12/08/18at 11:18; Admin Dose 12.19 MLS/HR; Start 12/08/18 at 09:00 JOSLYN LANDRUM MD December 09, 2018 14:30
--- NOTE | 2018-12-09 14:45 | PREAC ---
Date/Time of Note Date/Time of Note DATE: 12/09/18 TIME: 14:44 Anesthesia Eval and Record Evaluation Time Pre-Procedure Interview DATE: 12/09/18 TIME: 14:44 Age 58 Sex female NPO: 8 hrs Preoperative diagnosis dysphagia Planned procedure EGD PEG placement Past Medical History Past Medical History: Includes Cardio: HTN, Arrythmia (atril fibrillation), PPM/AICD, CHF Endo: Diabetes, Hypothyroid Pulm: Other (respiratory failure, vent dependent) Renal: ESRD on dialysis Heme: Anemia, Thrombocytopenia Surgery & Anesthesia Issues No known issue Meds Anticoagulation: No Beta Brian within 24 hr: No Reason Beta Brian not given: Pt. not on B-Brian Reported Medications Folic Acid* (Folic Acid*) 1 Mg Tablet, 1 MG PO DAILY, TAB 08/10/18 Amiodarone Hcl* (Amiodarone Hcl*) 200 Mg Tablet, 200 MG PO BID, #60 TAB 08/10/18 Pantoprazole* (Protonix*) 40 Mg Tablet.dr, 40 MG PO DAILY, TAB 08/10/18 Multivit/Ca Carb/B Cmplx/Fa* (Iram-Xiomara*) 1 Tab Tab, 1 TAB PO DAILY, TAB 08/10/18 Levothyroxine Sodium* (Levoxyl*) 75 Mcg Tablet, 75 MCG PO BEFORE BREAKFAST, #30 TAB 08/10/18 Current Medications Ondansetron HCl (Zofran Inj) 4 mg Q6H PRN IV NAUSEA AND/OR VOMITING Last administered on 12/07/18at 09:06; Admin Dose 4 MG; Start 11/21/18 at 05:30 Albuterol/ Ipratropium (Duoneb) 3 ml Q2H RESP THERAPY PRN NEB SHORTNESS OF BREATH; Start 11/21/18 at 05:30 Meropenem/Sodium Chloride 50 ml @ 100 mls/hr Q12 IVPB Last administered on 12/09/18at 08:54; Admin Dose 100 MLS/HR; Start 11/21/18 at 21:00 Caspofungin 50 mg/ Sodium Chloride 250 ml @ 250 mls/hr Q24H IVPB Last administered on 12/09/18at 13:34; Admin Dose 250 MLS/HR; Start 11/24/18 at 13:00 Miscellaneous Information 1 ea NOTE XX ; Start 11/23/18 at 13:30 Glucose (Glutose) 15 gm Q15M PRN PO DECREASED GLUCOSE; Start 11/23/18 at 13:30 Glucose (Glutose) 22.5 gm Q15M PRN PO DECREASED GLUCOSE; Start 11/23/18 at 13:30 Dextrose (D50w Syringe) 25 ml Q15M PRN IV DECREASED GLUCOSE Last administered on 12/09/18 13:59; Admin Dose 25 ML; Start 11/23/18 at 13:30 Dextrose (D50w Syringe) 50 ml Q15M PRN IV DECREASED GLUCOSE Last administered on 12/09/18 09:10; Admin Dose 50 ML; Start 11/23/18 at 13:30 Glucagon (Glucagen) 1 mg Q15M PRN IM DECREASED GLUCOSE; Start 11/23/18 at 13:30 Glucose (Glutose) 15 gm Q15M PRN BUCCAL DECREASED GLUCOSE; Start 11/23/18 at 13:30 Propofol 100 ml @ 1.59 mls/hr Q12H IV Last administered on 12/05/18 12:00; Admin Dose 0 MLS/HR; Start 11/24/18 at 00:00 Phenylephrine HCl 80 mg/Dextrose 250 ml @ 18.75 mls/ hr TITRATE IV ; Start 11/24/18 at 00:00 Alteplase, Recombinant (Cathflo (Activase)) 2 mg MAY REPEAT X1 PRN CATHETER IF CATHETER REMAINS OCCULUDED Last administered on 12/02/18 15:47; Admin Dose 2 MG; Start 11/26/18 at 03:00 Albumin Human 100 ml @ 100 mls/hr DURING DIALYSIS PRN IV HYPOTENSION DURING HD Last administered on 12/08/18 08:52; Admin Dose 100 MLS/HR; Start 11/26/18 at 14:00 Levothyroxine Sodium (Synthroid) 75 mcg BEFORE BREAKFAST NGT Last administered on 12/07/18 08:58; Admin Dose 75 MCG; Start 11/29/18 at 07:00 Midazolam HCl 50 ml @ 1 mls/hr TITRATE IV Last administered on 11/30/18 05:15; Admin Dose 50 MLS/HR; Start 11/29/18 at 09:00 Sodium Chloride 154 meq/Dextrose 1,038.5 ml @ 70 mls/hr [id number] IV Last administered on 12/09/18 03:25; Admin Dose 70 MLS/HR; Start 11/30/18 at 10:00 Collagenase (Santyl) 1 applic DAILY TOP Last administered on 12/09/18 08:54; Admin Dose 1 APPLIC; Start 12/01/18 at 16:30 Amiodarone HCl (Cordarone) 200 mg BID NGT Last administered on 12/09/18 08:53; Admin Dose 200 MG; Start 12/03/18 at 21:00 Epoetin Margarito-epbx (Retacrit) 6,000 unit MoWeFr@1700 SC Last administered on 12/07/18 17:02; Admin Dose 6,000 UNIT; Start 12/07/18 at 17:00 Acetaminophen (Tylenol Liquid) 650 mg Q6H PRN NGT PAIN LEVEL 1-3 OR FEVER; Start 12/06/18 at 09:00 Famotidine (Pepcid) 20 mg DAILY NGT Last administered on 12/09/18 08:53; Admin Dose 20 MG; Start 12/06/18 at 09:00 Folic Acid (Folic Acid) 1 mg DAILY NGT Last administered on 12/09/18 08:53; Admin Dose 1 MG; Start 12/06/18 at 09:00 Midodrine (Proamatine) 5 mg TID@09,13,17 GTB Last administered on 12/09/18 13:34; Admin Dose 5 MG; Start 12/07/18 at 09:00 Diagnostic Test (Pha) (Accu-Chek) 1 ea Q1H XX Last administered on 12/09/18 13:56; Admin Dose 1 EA; Start 12/08/18 at 05:00 Norepinephrine 32 mg/Dextrose 250 ml @ 0.47 mls/hr TITRATE IV Last a dministered on 12/08/18 11:18; Admin Dose 12.19 MLS/HR; Start 12/08/18 at 09:00 Meds reviewed: Yes Allergies Coded Allergies: Penicillins (Verified Allergy, Unknown, 08/10/18) tazobactam (Verified Allergy, Unknown, 08/10/18) vancomycin (Verified Allergy, Unknown, 08/10/18) Allergies Reviewed: Yes Labs/Studies Labs Reviewed: Reviewed by anesthesiologist Result Diagram: 12/09/18 0459 12/09/18 0459 Laboratory Tests 12/09/18 04:59 test: N/A Pre-procedure Exam Last vitals Vital Signs Date Temp Pulse Resp B/P (MAP) Pulse Ox O2 O2 Flow FiO2 Time Delivery Rate 12/09/18 77 20 97 30 13:43 12/09/18 101/54 10:45 (70) 12/09/18 Mechanical 10:00 Ventilator 12/09/18 98.4 08:00 12/07/18 6.0 12:50 Airway: Adequate mouth opening, Adequate thyromental dist Mallampati: Mallampati II (unable to assess as patient is intubated ) Teeth: Normal Lung: Normal Heart: Normal ASA Physical Status ASA physical status: 4 Emergency: None Planned Anesthetic General/MAC: ETT Planned Pain Management Parenteral pain med Pre-operative Attestations Prior to commencing anesthesia and surgery, the patient was re-evaluated, there was verification of: *The patient's identity *The results of appropriate recent lab work and preoperative vital signs *The above evaluation not changing prior to induction *Anesthetic plan, risk benefits, alternative and complications discussed with patient/family; questions answered; patient/family understands, accepts and wishes to proceed. GREGG VU MD December 09, 2018 14:45
--- NOTE | 2018-12-09 15:52 | CONS ---
Assessment/Plan Assessment/Plan Hospital Course 58 yo F with hx of afib, ESRD on peritoneal dialysis, and other comorbidities... who initially presented with ams in the context of hypotension and severe hypoglycemia. Now s/p PEA arrest on 11/24; Targeted temperature therapy was deferred.. She was found to be protractedly encephalopathic, for which neurology is consulted. The clinical picture suggests an acute toxic-metabolic (?on chronic) encephalopathy...which has shown some improvement clinically.. HCT is reassuringly without obvious acute intracranial pathology. CXR + PNA Na 127, phos 6.9 ammonia, TSH, B12 wnl plt 24 P: Cont medical management per primary [place] as able Cont to limit sedating medications where possible PT/OT when able Will follow clinically Consultation Date/Type/Reason Admit Date/Time Nov 21, 2018 at 04:53 Type of Consult Neurology Reason for Consultation ams Requesting Provider: RIKA STOCK Date/Time of Note DATE: 12/09/18 TIME: 15:51 24 HR Interval Summary Free Text/Dictation Continues critical care. No acute events reported today. Subjective hx not possible: pt non-verbal, pt critical Exam Vital Signs Vitals Vital Signs Date Temp Pulse Resp B/P (MAP) Pulse Ox O2 O2 Flow FiO2 Time Delivery Rate 12/09/18 77 20 97 30 13:43 12/09/18 101/54 10:45 (70) 12/09/18 Mechanical 10:00 Ventilator 12/09/18 98.4 08:00 12/07/18 6.0 12:50 Intake and Output 12/08/18 12/08/18 12/09/18 1515:00 23:00 07:00 IntakeIntake Total 991.09 ml 642.70 ml 574 ml OutputOutput Total 1600 ml 5 ml 40 ml BalanceBalance -608.91 ml 637.70 ml 534 ml Exam PE: Gen Appearance: No Apparent Distress HEENT: Intubated Cardiovascular: Regular rate Abdomen: Soft Extremities: Dry NE: The patient was asleep, though easily arousable. Nonverbal d/t ETT. Able to gesture and nod appropriately to yes/no questions. Able to follow simple axial and appendicular commands. Cranial nerve examination was limited by mental status. Pupils were equal and reactive to light. There was no afferent pupillary defect. Funduscopic examination was limited. Face was grossly symmetric, w/ present corneal and cough reflexes. Tone was normal. Muscle bulk was severely diminished. I did not see fasciculations. The patient was generally weak Coordination and gait testing was limited by mental status. Arm and leg reflexes were within normal limits and symmetric. Alvarez's sign was absent. Plantar responses were flexor. HOLLY FISHER NP December 09, 2018 15:52
[2018-12-09] MEDS ORDERED: FENTAnyl 50 MCG/ML VIAL ONE (17:33)
[2018-12-09] MEDS ORDERED: ETOMIDATE 20 MG INJ ONE (17:33)
[2018-12-09] MEDS: EPOETIN ALFA-EPBX (ESRD) 3,000 UNIT/ML VIAL SC SCH (17:51)
--- NOTE | 2018-12-09 18:05 | PAC ---
Date/Time of Note Date/Time of Note DATE: 12/09/18 TIME: 18:03 Post-Anesthesia Notes Post-Anesthesia Note Last documented vital signs Vital Signs Date Temp Pulse Resp B/P (MAP) Pulse Ox O2 O2 Flow FiO2 Time Delivery Rate 12/09/18 70 20 100 30 17:52 12/09/18 129/66 16:50 (87) 12/09/18 98.4 Mechanical 16:00 Ventilator 12/07/18 6.0 12:50 Activity: WNL Respiratory function: WNL Cardiovascular function: WNL Mental status: Baseline Pain reasonably controlled: Yes Hydration appropriate: Yes Nausea/Vomiting absent: Yes Comments BP:103/57 HR: 67 RR: 15 T: 98.4 SaO2: 100% GREGG VU MD December 09, 2018 18:05
[2018-12-09] MEDS ORDERED: HYDROmorphONE 0.5 MG/0.5 ML SYG IV PRN (18:30)
[2018-12-09] MEDS ORDERED: ONDANSETRON 4 MG INJ IV PRN (18:30)
--- NOTE | 2018-12-09 19:48 | PN ---
Date/Time of Note Date/Time of Note DATE: 12/09/18 TIME: 19:47 Assessment/Plan Lines/Catheters IV Catheter Type (from Nrsg): Mid Line Moon in Place (from Nrsg): No Assessment/Plan Assessment/Plan CHF end-stage renal disease Unable to come off the ventilator secondary to severe comorbidities Plan to proceed with tracheostomy Subjective 24 Hr Interval Summary Constitutional: no complaints, improved, ambulates, BM, flatus, urine output Pain Control: mild Exam/Review of Systems Vital Signs Vitals Vital Signs Date Temp Pulse Resp B/P (MAP) Pulse Ox O2 O2 Flow FiO2 Time Delivery Rate 12/09/18 66 20 122/61 19:00 (81) 12/09/18 100 18:30 12/09/18 30 17:52 12/09/18 Mechanical 16:50 Ventilator 12/09/18 98.4 16:00 12/07/18 6.0 12:50 Intake and Output 12/08/18 12/08/18 12/09/18 1515:00 23:00 07:00 IntakeIntake Total 991.09 ml 642.70 ml 574 ml OutputOutput Total 1600 ml 5 ml 40 ml BalanceBalance -608.91 ml 637.70 ml 534 ml Exam Eyes: nl conjunctiva, EOMI, nl lids, nl sclera ENMT: nl external ears & nose, nl lips & teeth, nl nasal mucosa & septum, mucosa pink and moist Neck: supple, non-tender Respiratory: clear to auscultation, normal air movement Cardiovascular: regular rate and rhythm, nl pulses Gastrointestinal: soft, nl liver, spleen, non-tender Results Result Diagram: 12/09/18 0459 12/09/18 0459 TAE PAN MD December 09, 2018 19:48
[2018-12-10] VITALS (114 sets, daily range): BP systolic 53–176; BP diastolic 39–104; PULSE 55–119; RESP 0–32
[2018-12-10] MEDS: ACCU-CHEK XX SCH ×25 (00:04→23:35)
[2018-12-10] MEDS: LEVOTHYROXINE 75 MCG TAB NGT SCH (06:14)
--- NOTE | 2018-12-10 08:34 | PN ---
DATE: 12/10/2018 SUBJECTIVE: The patient is critically ill on pressor support, on ventilatory support. The patient h ad a PEG tube placement yesterday. The patient is scheduled for dialysis this morning. No other wendie nts noted. OBJECTIVE: VITAL SIGNS: Blood pressure is 86/52, respirations 18, pulse 60, temperature 98.6. HEENT: Head is normocephalic. NECK: Supple. HEART: Tachycardic. LUNGS: Show diminished breath sounds at the base. ABDOMEN: Soft, nontender to palpation without rebound or guarding. EXTREMITIES: Negative for clubbing, cyanosis. Positive edema, diffuse anasarca. DERMATOLOGIC: No rashes. MUSCULOSKELETAL: No joint effusion. NEUROLOGIC: No change in exam. MEDICATIONS: Reviewed. LABORATORY DATA: From 12/10/18 was reviewed. ASSESSMENT AND PLAN: 1. End-stage renal disease. Plan is for hemodialysis today. We will dialyze 3 hours 2k bath, calci um 2.5. 2. Access. The patient has Davie catheter in the left femoral vein. Dr. Rceinos was consulted for possible Davie catheter exchange. 3. Volume overload with diffuse anasarca. Continue ultrafiltration with hemodialysis. 4. Septic shock secondary to pneumonia. Continue pressor support, wean off as tolerated. 5. Anemia. Continue to monitor hemoglobin and hematocrit levels. Continue Epogen. The patient is pending blood transfusion. 6. Mineral bone disorder, monitor calcium and phosphorus levels. 7. Hypernatremia, improved. 8. Ventilator dependent respiratory failure. Vent settings and ABG was reviewed. Continue to monit or. 9. Acute encephalopathy, etiology is toxic metabolic. 10. Ascites, status post paracentesis. 11. Hypothyroidism. Continue Synthroid. 12. Dysphagia, status post PEG. Continue tube feeding. 13. Arrhythmia. Continue amiodarone. 14. Hyperglycemia. Continue dextrose drip. 15. Lower extremity wounds. Continue wound care. 16. Status post cardiopulmonary arrest. Dictated By: SARIKA JOINER DO NR/NTS Conf#: [id number] DID#: [id number] CC: MANDY BATES MD; JOSLYN LANDRUM MD; LORRAINE JOHNSON MD;*EndCC*
[2018-12-10] MEDS: ALBUMIN HUMAN 25% 100 ML IV PRN (08:53)
[2018-12-10] MEDS: ARTIFICIAL TEARS 15 ML OPH BOTH EYES SCH ×4 (09:00→20:25)
[2018-12-10] MEDS: MIDODRINE 5 MG TAB GTB SCH ×3 (09:00→18:37)
--- NOTE | 2018-12-10 09:02 | CONS ---
Assessment/Plan Assessment/Plan Assessment/Plan (Daily) Patient is scheduled for G-tube placed She is still orally intubated On hemodialysis On IV antibiotics Medical problems septic shock Vent dependent respiratory failure Cardiomyopathy Thrombocytopenia Dementia delirium Failure to thrive I had multiple conversations with patient's family members 2 sons who absolutely will not consider changing patient's CODE STATUS. Consultation Date/Type/Reason Admit Date/Time Nov 21, 2018 at 04:53 Initial Consult Date Requesting Provider: RIKA STOCK Date/Time of Note DATE: 12/10/18 TIME: 09:02 Exam/Review of Systems Exam Vitals Vital Signs Date Temp Pulse Resp B/P (MAP) Pulse Ox O2 O2 Flow FiO2 Time Delivery Rate 12/10/18 81 18 102/67 100 06:15 (79) 12/10/18 Mechanical 06:00 Ventilator 12/10/18 40 05:20 12/10/18 97.7 04:00 12/07/18 6.0 12:50 Intake and Output 12/09/18 12/09/18 12/10/18 1515:00 23:00 07:00 IntakeIntake Total 408.46 ml 500.81 ml OutputOutput Total 20 ml BalanceBalance -20 ml 408.46 ml 500.81 ml Results Result Diagram: 12/10/18 0454 12/10/18 0454 Results 24hrs Laboratory Tests Test 12/09/18 09:06 12/09/18 10:05 12/09/18 11:16 12/09/18 12:05 Bedside Glucose 60 L 112 86 88 Test 12/09/18 13:23 12/09/18 13:56 12/09/18 14:13 12/09/18 15:14 Bedside Glucose 82 62 L 114 97 Test 12/09/18 16:18 12/09/18 17:17 12/09/18 19:33 12/09/18 20:36 Bedside Glucose 86 82 48 *L 193 Test 12/09/18 22:40 12/09/18 23:49 12/10/18 00:56 12/10/18 02:23 Bedside Glucose 138 126 114 113 Test 12/10/18 04:03 12/10/18 04:54 12/10/18 04:58 12/10/18 06:15 Bedside Glucose 104 97 White Blood Count 8.8 Red Blood Count 1.98 #L Hemoglobin 6.0 #*L Hematocrit 18.1 #L Mean Corpuscular 91.4 Volume Mean Corpuscular 30.3 Hemoglobin Mean Corpuscular 33.1 Hemoglobin Concen t Red Cell 20.8 H Distribution Width Platelet Count 29 #*L Mean Platelet Volume Immature 0.500 H Granulocytes % Neutrophils % 79.8 H Segmented 54 Neutrophils % (Manual) Band Neutrophils 19 H % (Manual) Lymphocytes % 13.5 L Lymphocytes % 26 (Manual) Monocytes % 4.4 Eosinophils % 1.5 Basophils % 0.3 Basophils % 1 (Manual) Nucleated Red 0.0 Blood Cells % Immature 0.040 H Granulocytes # Neutrophils # 7.0 Neutrophils # 4.9 (Manual) Band Neutrophils 1.6 H # Lymphocytes 2.2 (Manual) Lymphocytes # 1.2 Monocytes # 0.4 Eosinophils # 0.1 Basophils # 0.0 Basophils # 0.0 (Manual) Nucleated Red 0.0 Blood Cells # Platelet Estimate SIG DECREASED Poikilocytosis 2+ Anisocytosis 2+ Macrocytosis 1+ Spherocytes 1+ Sodium Level 142 Potassium Level 3.8 Chloride Level 110 Carbon Dioxide 25 Level Anion Gap 7 Blood Urea 34 H Nitrogen Creatinine 1.20 H Est Glomerular 46 L Filtrat Rate mL/min Glucose Level 97 Calcium Level 8.6 Phosphorus Level 4.0 Magnesium Level 2.0 Lab Scanned BLOOD TRANSFUSIO Report N Test 12/10/18 07:02 Bedside Glucose 96 Medications Medication Current Medications Ondansetron HCl (Zofran Inj) 4 mg Q6H PRN IV NAUSEA AND/OR VOMITING Last administered on 12/07/18at 09:06; Admin Dose 4 MG; Start 11/21/18 at 05:30 Albuterol/ Ipratropium (Duoneb) 3 ml Q2H RESP THERAPY PRN NEB SHORTNESS OF BREATH; Start 11/21/18 at 05:30 Meropenem/Sodium Chloride 50 ml @ 100 mls/hr Q12 IVPB Last administered on 12/09/18at 20:46; Admin Dose 100 MLS/HR; Start 11/21/18 at 21:00 Caspofungin 50 mg/ Sodium Chloride 250 ml @ 250 mls/hr Q24H IVPB Last administered on 12/09/18at 13:34; Admin Dose 250 MLS/HR; Start 11/24/18 at 13:00 Miscellaneous Information 1 ea NOTE XX ; Start 11/23/18 at 13:30 Glucose (Glutose) 15 gm Q15M PRN PO DECREASED GLUCOSE; Start 11/23/18 at 13:30 Glucose (Glutose) 22.5 gm Q15M PRN PO DECREASED GLUCOSE; Start 11/23/18 at 13:30 Dextrose (D50w Syringe) 25 ml Q15M PRN IV DECREASED GLUCOSE Last administered on 12/09/18at 13:59; Admin Dose 25 ML; Start 11/23/18 at 13:30 Dextrose (D50w Syringe) 50 ml Q15M PRN IV DECREASED GLUCOSE Last administered on 12/09/18 19:44; Admin Dose 50 ML; Start 11/23/18 at 13:30 Glucagon (Glucagen) 1 mg Q15M PRN IM DECREASED GLUCOSE; Start 11/23/18 at 13:30 Glucose (Glutose) 15 gm Q15M PRN BUCCAL DECREASED GLUCOSE; Start 11/23/18 at 13:30 Propofol 100 ml @ 1.59 mls/hr Q12H IV Last administered on 12/05/18at 12:00; Admin Dose 0 MLS/HR; Start 11/24/18 at 00:00 Phenylephrine HCl 80 mg/Dextrose 250 ml @ 18.75 mls/ hr TITRATE IV ; Start 11/24/18 at 00:00 Alteplase, Recombinant (Cathflo (Activase)) 2 mg MAY REPEAT X1 PRN CATHETER IF CATHETER REMAINS OCCULUDED Last administered on 12/02/18at 15:47; Admin Dose 2 MG; Start 11/26/18 at 03:00 Albumin Human 100 ml @ 100 mls/hr DURING DIALYSIS PRN IV HYPOTENSION DURING HD Last administered on 12/10/18 08:53; Admin Dose 100 MLS/HR; Start 11/26/18 at 14:00 Levothyroxine Sodium (Synthroid) 75 mcg BEFORE BREAKFAST NGT Last administered on 12/10/18 06:14; Admin Dose 75 MCG; Start 11/29/18 at 07:00 Midazolam HCl 50 ml @ 1 mls/hr TITRATE IV Last administered on 11/30/18at 05:15; Admin Dose 50 MLS/HR; Start 11/29/18 at 09:00 Sodium Chloride 154 meq/Dextrose 1,038.5 ml @ 70 mls/hr [id number] IV Last administered on 12/09/18 03:25; Admin Dose 70 MLS/HR; Start 11/30/18 at 10:00 Collagenase (Santyl) 1 applic DAILY TOP Last administered on 12/09/18 08:54; Admin Dose 1 APPLIC; Start 12/01/18 at 16:30 Amiodarone HCl (Cordarone) 200 mg BID NGT Last administered on 12/09/18 20:46; Admin Dose 200 MG; Start 12/03/18 at 21:00 Acetaminophen (Tylenol Liquid) 650 mg Q6H PRN NGT PAIN LEVEL 1-3 OR FEVER; Start 12/06/18 at 09:00 Famotidine (Pepcid) 20 mg DAILY NGT Last administered on 12/09/18 08:53; Admin Dose 20 MG; Start 12/06/18 at 09:00 Folic Acid (Folic Acid) 1 mg DAILY NGT Last administered on 12/09/18 08:53; Admin Dose 1 MG; Start 12/06/18 at 09:00 Midodrine (Proamatine) 5 mg TID@09,13,17 GTB Last administered on 12/09/18 13:34; Admin Dose 5 MG; Start 12/07/18 at 09:00 Diagnostic Test (Pha) (Accu-Chek) 1 ea Q1H XX Last administered on 12/10/18 06:12; Admin Dose 1 EA; Start 12/08/18 at 05:00 Norepinephrine 32 mg/Dextrose 250 ml @ 0.47 mls/hr TITRATE IV Last administered on 12/08/18 11:18; Admin Dose 12.19 MLS/HR; Start 12/08/18 at 09:00 Epoetin Margarito-epbx (RETACRIT(esrd)) 10,000 unit MoWeFr@1700 SC ; Start 12/11/18 at 17:00 Eye Lubricant (Artificial Tears Oph) 2 drop QID BOTH EYES ; Start 12/10/18 at 09:00 JULIEN SALINAS December 10, 2018 09:02
--- NOTE | 2018-12-10 09:54 | CONS ---
Assessment/Plan Assessment/Plan Assessment/Plan (Daily) Ventilator setting; AC of 20, tidal volume 450, PEEP of 5, 40% FiO2. Patient is currently on Levophed at 5 mics per minute. Assessment and recommendations; 1. Patient admitted with respiratory failure due to severe bilateral pneumonia. Klebsiella pneumonia bacteremia. 2. Severely macerated state. 3. Patient has failed multiple weaning trials from ventilator. 4. Severe anemia and severe thrombocytopenia. 5. Chronic renal failure, on hemodialysis. 6. Persistent shock. Continue current supportive care. Obtain follow-up chest x-ray. Patient scheduled for tracheostomy after she is stabilized clinically. Currently getting blood transfusion. The prognosis is very poor. Consultation Date/Type/Reason Admit Date/Time Nov 21, 2018 at 04:53 Initial Consult Date Type of Consult Pulmonary Requesting Provider: RIKA STOCK Date/Time of Note DATE: 12/10/18 TIME: 09:51 24 HR Interval Summary Free Text/Dictation Patient's condition remains critical. General exam; elderly woman, awake, appears severely emaciated. Orally intubated. Exam/Review of Systems Exam Vitals Vital Signs Date Temp Pulse Resp B/P (MAP) Pulse Ox O2 O2 Flow FiO2 Time Delivery Rate 12/10/18 64 09:20 12/10/18 20 146/63 Mechanical 07:45 (90) Ventilator 12/10/18 100 06:15 12/10/18 40 05:20 12/10/18 97.7 04:00 12/07/18 6.0 12:50 Intake and Output 12/09/18 12/09/18 12/10/18 1515:00 23:00 07:00 IntakeIntake Total 408.46 ml 500.81 ml OutputOutput Total 20 ml BalanceBalance -20 ml 408.46 ml 500.81 ml Exam HE ENT exam; supple neck, patient does have multiple carious teeth. Orally intubated. No neck masses. Chest exam; diminished breath sounds bilaterally. S1-S2 audible, no murmurs. Regular rhythm. Abdomen exam; soft, no organomegaly. Scaphoid. Bowel sounds are sluggish. Extremity exam; no peripheral edema. NURSE ANESTHETIST exam; patient is awake. Results Result Diagram: 12/10/18 0454 12/10/18 0454 Results 24hrs Laboratory Tests Test 12/09/18 10:05 12/09/18 11:16 12/09/18 12:05 12/09/18 13:23 Bedside Glucose 112 86 88 82 Test 12/09/18 13:56 12/09/18 14:13 12/09/18 15:14 12/09/18 16:18 Bedside Glucose 62 L 114 97 86 Test 12/09/18 17:17 12/09/18 19:33 12/09/18 20:36 12/09/18 22:40 Bedside Glucose 82 48 *L 193 138 Test 12/09/18 23:49 12/10/18 00:56 12/10/18 02:23 12/10/18 04:03 Bedside Glucose 126 114 113 104 Test 12/10/18 04:54 12/10/18 04:58 12/10/18 05:00 12/10/18 06:15 White Blood Count 8.8 Red Blood Count 1.98 #L Hemoglobin 6.0 #*L Hematocrit 18.1 #L Mean Corpuscular 91.4 Volume Mean Corpuscular 30.3 Hemoglobin Mean Corpuscular 33.1 Hemoglobin Concen t Red Cell 20.8 H Distribution Width Platelet Count 29 #*L Mean Platelet Volume Immature 0.500 H Granulocytes % Neutrophils % 79.8 H Segmented 54 Neutrophils % (Manual) Band Neutrophils 19 H % (Manual) Lymphocytes % 13.5 L Lymphocytes % 26 (Manual) Monocytes % 4.4 Eosinophils % 1.5 Basophils % 0.3 Basophils % 1 (Manual) Nucleated Red 0.0 Blood Cells % Immature 0.040 H Granulocytes # Neutrophils # 7.0 Neutrophils # 4.9 (Manual) Band Neutrophils 1.6 H # Lymphocytes 2.2 (Manual) Lymphocytes # 1.2 Monocytes # 0.4 Eosinophils # 0.1 Basophils # 0.0 Basophils # 0.0 (Manual) Nucleated Red 0.0 Blood Cells # Platelet Estimate SIG DECREASED Poikilocytosis 2+ Anisocytosis 2+ Macrocytosis 1+ Spherocytes 1+ Sodium Level 142 Potassium Level 3.8 Chloride Level 110 Carbon Dioxide 25 Level Anion Gap 7 Blood Urea 34 H Nitrogen Creatinine 1.20 H Est Glomerular 46 L Filtrat Rate mL/min Glucose Level 97 Calcium Level 8.6 Phosphorus Level 4.0 Magnesium Level 2.0 Lab Scanned BLOOD TRANSFUSIO Report N Iron Level 44 Total Iron 92 L Binding Capacity Percent Iron 48 Saturation Bedside Glucose 97 Test 12/10/18 07:02 12/10/18 09:04 Bedside Glucose 96 103 Medications Medication Current Medications Ondansetron HCl (Zofran Inj) 4 mg Q6H PRN IV NAUSEA AND/OR VOMITING Last administered on 12/07/18at 09:06; Admin Dose 4 MG; Start 11/21/18 at 05:30 Albuterol/ Ipratropium (Duoneb) 3 ml Q2H RESP THERAPY PRN NEB SHORTNESS OF BREATH; Start 11/21/18 at 05:30 Meropenem/Sodium Chloride 50 ml @ 100 mls/hr Q12 IVPB Last administered on 12/09/18at 20:46; Admin Dose 100 MLS/HR; Start 11/21/18 at 21:00 Caspofungin 50 mg/ Sodium Chloride 250 ml @ 250 mls/hr Q24H IVPB Last administered on 12/09/18at 13:34; Admin Dose 250 MLS/HR; Start 11/24/18 at 13:00 Miscellaneous Information 1 ea NOTE XX ; Start 11/23/18 at 13:30 Glucose (Glutose) 15 gm Q15M PRN PO DECREASED GLUCOSE; Start 11/23/18 at 13:30 Glucose (Glutose) 22.5 gm Q15M PRN PO DECREASED GLUCOSE; Start 11/23/18 at 13:30 Dextrose (D50w Syringe) 25 ml Q15M PRN IV DECREASED GLUCOSE Last administered on 12/09/18at 13:59; Admin Dose 25 ML; Start 11/23/18 at 13:30 Dextrose (D50w Syringe) 50 ml Q15M PRN IV DECREASED GLUCOSE Last administered on 12/09/18at 19:44; Admin Dose 50 ML; Start 11/23/18 at 13:30 Glucagon (Glucagen) 1 mg Q15M PRN IM DECREASED GLUCOSE; Start 11/23/18 at 13:30 Glucose (Glutose) 15 gm Q15M PRN BUCCAL DECREASED GLUCOSE; Start 11/23/18 at 13:30 Propofol 100 ml @ 1.59 mls/hr Q12H IV Last administered on 12/05/18at 12:00; Admin Dose 0 MLS/HR; Start 11/24/18 at 00:00 Phenylephrine HCl 80 mg/Dextrose 250 ml @ 18.75 mls/ hr TITRATE IV ; Start 11/24/18 at 00:00 Alteplase, Recombinant (Cathflo (Activase)) 2 mg MAY REPEAT X1 PRN CATHETER IF CATHETER REMAINS OCCULUDED Last administered on 12/02/18 15:47; Admin Dose 2 MG; Start 11/26/18 at 03:00 Albumin Human 100 ml @ 100 mls/hr DURING DIALYSIS PRN IV HYPOTENSION DURING HD Last administered on 12/10/18 08:53; Admin Dose 100 MLS/HR; Start 11/26/18 at 14:00 Levothyroxine Sodium (Synthroid) 75 mcg BEFORE BREAKFAST NGT Last administered on 12/10/18 06:14; Admin Dose 75 MCG; Start 11/29/18 at 07:00 Midazolam HCl 50 ml @ 1 mls/hr TITRATE IV Last administered on 11/30/18 05:15; Admin Dose 50 MLS/HR; Start 11/29/18 at 09:00 Sodium Chloride 154 meq/Dextrose 1,038.5 ml @ 70 mls/hr [id number] IV Last administered on 12/09/18 03:25; Admin Dose 70 MLS/HR; Start 11/30/18 at 10:00 Collagenase (Santyl) 1 applic DAILY TOP Last administered on 12/09/18 08:54; Admin Dose 1 APPLIC; Start 12/01/18 at 16:30 Amiodarone HCl (Cordarone) 200 mg BID NGT Last administered on 12/09/18 20:46; Admin Dose 200 MG; Start 12/03/18 at 21:00 Acetaminophen (Tylenol Liquid) 650 mg Q6H PRN NGT PAIN LEVEL 1-3 OR FEVER; Start 12/06/18 at 09:00 Famotidine (Pepcid) 20 mg DAILY NGT Last administered on 12/09/18 08:53; Admin Dose 20 MG; Start 12/06/18 at 09:00 Folic Acid (Folic Acid) 1 mg DAILY NGT Last administered on 12/09/18 08:53; Admin Dose 1 MG; Start 12/06/18 at 09:00 Midodrine (Proamatine) 5 mg TID@09,13,17 GTB Last administered on 12/09/18 13:34; Admin Dose 5 MG; Start 12/07/18 at 09:00 Diagnostic Test (Pha) (Accu-Chek) 1 ea Q1H XX Last administered on 12/10/18at 06:12; Admin Dose 1 EA; Start 12/08/18 at 05:00 Norepinephrine 32 mg/Dextrose 250 ml @ 0.47 mls/hr TITRATE IV Last administered on 12/08/18at 11:18; Admin Dose 12.19 MLS/HR; Start 12/08/18 at 09:00 Epoetin Margarito-epbx (RETACRIT(esrd)) 10,000 unit MoWeFr@1700 SC ; Start 12/11/18 at 17:00 Eye Lubricant (Artificial Tears Oph) 2 drop QID BOTH EYES ; Start 12/10/18 at 09:00 MARIAN KUMAR December 10, 2018 09:54
--- NOTE | 2018-12-10 11:04 | PREAC ---
Date/Time of Note Date/Time of Note DATE: 12/10/18 TIME: 10:52 Anesthesia Eval and Record Evaluation Time Pre-Procedure Interview DATE: 12/10/18 TIME: 10:52 Age 58 Sex female NPO: 8 hrs Preoperative diagnosis vent dependent respiratory failure Planned procedure tracheostomy placement Past Medical History Past Medical History: Includes (ascites) Cardio: HTN, PPM/AICD, Other (cardiomyopathy) Endo: Hypothyroid Renal: ESRD on dialysis Heme: Anemia, Thrombocytopenia (severe thrombocytopenia) Surgery & Anesthesia Issues No known issue (fistula, nose sx) Meds Anticoagulation: No Beta Brian within 24 hr: No Reason Beta Brian not given: Pt. not on B-Brian Reported Medications Folic Acid* (Folic Acid*) 1 Mg Tablet, 1 MG PO DAILY, TAB 08/10/18 Amiodarone Hcl* (Amiodarone Hcl*) 200 Mg Tablet, 200 MG PO BID, #60 TAB 08/10/18 Pantoprazole* (Protonix*) 40 Mg Tablet.dr, 40 MG PO DAILY, TAB 08/10/18 Multivit/Ca Carb/B Cmplx/Fa* (Iram-Xiomara*) 1 Tab Tab, 1 TAB PO DAILY, TAB 08/10/18 Levothyroxine Sodium* (Levoxyl*) 75 Mcg Tablet, 75 MCG PO BEFORE BREAKFAST, #30 TAB 08/10/18 Current Medications Ondansetron HCl (Zofran Inj) 4 mg Q6H PRN IV NAUSEA AND/OR VOMITING Last administered on 12/07/18at 09:06; Admin Dose 4 MG; Start 11/21/18 at 05:30 Albuterol/ Ipratropium (Duoneb) 3 ml Q2H RESP THERAPY PRN NEB SHORTNESS OF BREATH; Start 11/21/18 at 05:30 Meropenem/Sodium Chloride 50 ml @ 100 mls/hr Q12 IVPB Last administered on 12/09/18at 20:46; Admin Dose 100 MLS/HR; Start 11/21/18 at 21:00 Caspofungin 50 mg/ Sodium Chloride 250 ml @ 250 mls/hr Q24H IVPB Last administered on 12/09/18at 13:34; Admin Dose 250 MLS/HR; Start 11/24/18 at 13:00 Miscellaneous Information 1 ea NOTE XX ; Start 11/23/18 at 13:30 Glucose (Glutose) 15 gm Q15M PRN PO DECREASED GLUCOSE; Start 11/23/18 at 13:30 Glucose (Glutose) 22.5 gm Q15M PRN PO DECREASED GLUCOSE; Start 11/23/18 at 13:30 Dextrose (D50w Syringe) 25 ml Q15M PRN IV DECREASED GLUCOSE Last administered on 12/09/18 13:59; Admin Dose 25 ML; Start 11/23/18 at 13:30 Dextrose (D50w Syringe) 50 ml Q15M PRN IV DECREASED GLUCOSE Last administered on 12/09/18 19:44; Admin Dose 50 ML; Start 11/23/18 at 13:30 Glucagon (Glucagen) 1 mg Q15M PRN IM DECREASED GLUCOSE; Start 11/23/18 at 13:30 Glucose (Glutose) 15 gm Q15M PRN BUCCAL DECREASED GLUCOSE; Start 11/23/18 at 13:30 Propofol 100 ml @ 1.59 mls/hr Q12H IV Last administered on 12/05/18 12:00; Admin Dose 0 MLS/HR; Start 11/24/18 at 00:00 Phenylephrine HCl 80 mg/Dextrose 250 ml @ 18.75 mls/ hr TITRATE IV ; Start 11/24/18 at 00:00 Alteplase, Recombinant (Cathflo (Activase)) 2 mg MAY REPEAT X1 PRN CATHETER IF CATHETER REMAINS OCCULUDED Last administered on 12/02/18 15:47; Admin Dose 2 MG; Start 11/26/18 at 03:00 Albumin Human 100 ml @ 100 mls/hr DURING DIALYSIS PRN IV HYPOTENSION DURING HD Last administered on 12/10/18 08:53; Admin Dose 100 MLS/HR; Start 11/26/18 at 14:00 Levothyroxine Sodium (Synthroid) 75 mcg BEFORE BREAKFAST NGT Last administered on 12/10/18 06:14; Admin Dose 75 MCG; Start 11/29/18 at 07:00 Midazolam HCl 50 ml @ 1 mls/hr TITRATE IV Last administered on 11/30/18 05:15; Admin Dose 50 MLS/HR; Start 11/29/18 at 09:00 Sodium Chloride 154 meq/Dextrose 1,038.5 ml @ 70 mls/hr [id number] IV Last administered on 12/09/18 03:25; Admin Dose 70 MLS/HR; Start 11/30/18 at 10:00 Collagenase (Santyl) 1 applic DAILY TOP Last administered on 12/09/18 08:54; Admin Dose 1 APPLIC; Start 12/01/18 at 16:30 Amiodarone HCl (Cordarone) 200 mg BID NGT Last administered on 12/09/18 20:46; Admin Dose 200 MG; Start 12/03/18 at 21:00 Acetaminophen (Tylenol Liquid) 650 mg Q6H PRN NGT PAIN LEVEL 1-3 OR FEVER; Start 12/06/18 at 09:00 Famotidine (Pepcid) 20 mg DAILY NGT Last administered on 12/09/18 08:53; Admin Dose 20 MG; Start 12/06/18 at 09:00 Folic Acid (Folic Acid) 1 mg DAILY NGT Last administered on 12/09/18 08:53; Admin Dose 1 MG; Start 12/06/18 at 09:00 Midodrine (Proamatine) 5 mg TID@,13,17 GTB Last administered on 12/09/18 13:34; Admin Dose 5 MG; Start 12/07/18 at 09:00 Diagnostic Test (Pha) (Accu-Chek) 1 ea Q1H XX Last administered on 12/10/18 06:12; Admin Dose 1 EA; Start 12/08/18 at 05:00 Norepinephrine 32 mg/Dextrose 250 ml @ 0.47 mls/hr TITRATE IV Last administered on 12/08/18 11:18; Admin Dose 12.19 MLS/HR; Start 12/08/18 at 09:00 Epoetin Margarito-epbx (RETACRIT(esrd)) 10,000 unit MoWeFr@1700 SC ; Start 12/11/18 at 17:00 Eye Lubricant (Artificial Tears Oph) 2 drop QID BOTH EYES ; Start 12/10/18 at 09:00 Meds reviewed: Yes Allergies Coded Allergies: Penicillins (Verified Allergy, Unknown, 08/10/18) tazobactam (Verified Allergy, Unknown, 08/10/18) vancomycin (Verified Allergy, Unknown, 08/10/18) Allergies Reviewed: Yes Labs/Studies Labs Reviewed: Reviewed by anesthesiologist (pt receiving 1 unit of PRBC and a unit of platelet during dialysis this morning. recheck cbc 2 hrs after dialysis is completed) Result Diagram: 12/10/18 0454 12/10/18 0454 Laboratory Tests 12/10/18 04:54 test: N/A Studies: ECG (nsr, nonspecific t wav abnormality), CXR (2. Bilateral perihilar and infrahilar interstitial changes and ground-glass opacities may represent pulmonary edema or possibly inflammatory infiltrates; Bilateral small pleural effusions.) Pre-procedure Exam Last vitals Vital Signs Date Temp Pulse Resp B/P (MAP) Pulse Ox O2 O2 Flow FiO2 Time Delivery Rate 12/10/18 64 09:55 12/10/18 20 146/63 Mechanical 07:45 (90) Ventilator 12/10/18 100 06:15 12/10/18 40 05:20 12/10/18 97.7 04:00 12/07/18 6.0 12:50 Airway: Adequate mouth opening, Adequate thyromental dist Mallampati: Mallampati III Teeth: Normal Lung: Normal Heart: Normal ASA Physical Status ASA physical status: 4 Emergency: None Planned Anesthetic General/MAC: ETT (ETT in situ) Pre-operative Attestations Prior to commencing anesthesia and surgery, the patient was re-evaluated, there was verification of: *The patient's identity *The results of appropriate recent lab work and preoperative vital signs *The above evaluation not changing prior to induction *Anesthetic plan, risk benefits, alternative and complications discussed with patient/family; questions answered; patient/family understands, accepts and wishes to proceed. ALEX AKHTAR December 10, 2018 11:04
[2018-12-10] MEDS: PROPOFOL 100 ML IV SCH ×2 (12:00→23:35)
--- NOTE | 2018-12-10 12:28 | PN ---
Date/Time of Note Date/Time of Note DATE: 12/10/18 TIME: 12:20 Assessment/Plan VTE Prophylaxis Risk score (from Nsg)>0 risk: 12 SCD applied (from Nsg): Yes Pharmacological prophylaxis: heparin Lines/Catheters IV Catheter Type (from Nrsg): Mid Line Urinary Cath still in place: No Assessment/Plan Hospital Course Intubated, apears comfortable Chronically ill appearing Lungs clear Distended belly, firm masses, G tube in place Mild peripheral edema present LUE wound wrapped 58 yo female with ESRD, cirrohsihs, DMII presents with hypoglycemia, leg infection. Suffered cardiac and respiratory arrest, now intubated Acute respiratory failure: - MV per pulm - Will need trach - EGD today Septic shock: - vasoprossors to MAP > 65 - Antibiotics per ID Hypoglycemia: No history of diabetes and patient not on any insulin or sulfonylurea or any other diabetic medication - Continue IV dextrose and tube feeds Left lower extremity wound - Antibiotics per ID -Venous study was negative for DVT A Fib: - Amiodarone ESRD with fluid overload - HD per nephrology Hypothyroidism: Continue Synthroid History of pacemaker: No acute issue Prophylaxis: SCDs DC planning: Poor prognosis. Continue goals of care discussions with family. So far unwilling to consider withdrawal of care. Very upset to be asked about it and don't want us to bring it up again Result Diagram: 12/10/18 0454 12/10/18 0454 Results 24hrs Laboratory Tests Test 12/09/18 13:23 12/09/18 13:56 12/09/18 14:13 12/09/18 15:14 Bedside Glucose 82 62 L 114 97 Test 12/09/18 16:18 12/09/18 17:17 12/09/18 19:33 12/09/18 20:36 Bedside Glucose 86 82 48 *L 193 Test 12/09/18 22:40 12/09/18 23:49 12/10/18 00:56 12/10/18 02:23 Bedside Glucose 138 126 114 113 Test 12/10/18 04:03 12/10/18 04:54 12/10/18 04:58 12/10/18 05:00 Bedside Glucose 104 White Blood Count 8.8 Red Blood Count 1.98 #L Hemoglobin 6.0 #*L Hematocrit 18.1 #L Mean Corpuscular 91.4 Volume Mean Corpuscular 30.3 Hemoglobin Mean Corpuscular 33.1 Hemoglobin Concen t Red Cell 20.8 H Distribution Width Platelet Count 29 #*L Mean Platelet Volume Immature 0.500 H Granulocytes % Neutrophils % 79.8 H Segmented 54 Neutrophils % (Manual) Band Neutrophils 19 H % (Manual) Lymphocytes % 13.5 L Lymphocytes % 26 (Manual) Monocytes % 4.4 Eosinophils % 1.5 Basophils % 0.3 Basophils % 1 (Manual) Nucleated Red 0.0 Blood Cells % Immature 0.040 H Granulocytes # Neutrophils # 7.0 Neutrophils # 4.9 (Manual) Band Neutrophils 1.6 H # Lymphocytes 2.2 (Manual) Lymphocytes # 1.2 Monocytes # 0.4 Eosinophils # 0.1 Basophils # 0.0 Basophils # 0.0 (Manual) Nucleated Red 0.0 Blood Cells # Platelet Estimate SIG DECREASED Poikilocytosis 2+ Anisocytosis 2+ Macrocytosis 1+ Spherocytes 1+ Sodium Level 142 Potassium Level 3.8 Chloride Level 110 Carbon Dioxide 25 Level Anion Gap 7 Blood Urea 34 H Nitrogen Creatinine 1.20 H Est Glomerular 46 L Filtrat Rate mL/min Glucose Level 97 Calcium Level 8.6 Phosphorus Level 4.0 Magnesium Level 2.0 Lab Scanned BLOOD TRANSFUSIO Report N Iron Level 44 Total Iron 92 L Binding Capacity Percent Iron 48 Saturation Test 12/10/18 06:15 12/10/18 07:02 12/10/18 09:04 Bedside Glucose 97 96 103 Subjective 24 Hr Interval Summary Free Text/Dictation Undergoing HD today G tube placed yesterday Remains intubated, on vasopressors Exam/Review of Systems Exam Vitals Vital Signs Date Temp Pulse Resp B/P (MAP) Pulse Ox O2 O2 Flow FiO2 Time Delivery Rate 12/10/18 64 09:55 12/10/18 20 146/63 Mechanical 07:45 (90) Ventilator 12/10/18 100 06:15 12/10/18 40 05:20 12/10/18 97.7 04:00 12/07/18 6.0 12:50 Intake and Output 12/09/18 12/09/18 12/10/18 1515:00 23:00 07:00 IntakeIntake Total 408.46 ml 500.81 ml OutputOutput Total 20 ml BalanceBalance -20 ml 408.46 ml 500.81 ml Results Results 24hrs Laboratory Tests Test 12/09/18 13:23 12/09/18 13:56 12/09/18 14:13 12/09/18 15:14 Bedside Glucose 82 62 L 114 97 Test 12/09/18 16:18 12/09/18 17:17 12/09/18 19:33 12/09/18 20:36 Bedside Glucose 86 82 48 *L 193 Test 12/09/18 22:40 12/09/18 23:49 12/10/18 00:56 12/10/18 02:23 Bedside Glucose 138 126 114 113 Test 12/10/18 04:03 12/10/18 04:54 12/10/18 04:58 12/10/18 05:00 Bedside Glucose 104 White Blood Count 8.8 Red Blood Count 1.98 #L Hemoglobin 6.0 #*L Hematocrit 18.1 #L Mean Corpuscular 91.4 Volume Mean Corpuscular 30.3 Hemoglobin Mean Corpuscular 33.1 Hemoglobin Concen t Red Cell 20.8 H Distribution Width Platelet Count 29 #*L Mean Platelet Volume Immature 0.500 H Granulocytes % Neutrophils % 79.8 H Segmented 54 Neutrophils % (Manual) Band Neutrophils 19 H % (Manual) Lymphocytes % 13.5 L Lymphocytes % 26 (Manual) Monocytes % 4.4 Eosinophils % 1.5 Basophils % 0.3 Basophils % 1 (Manual) Nucleated Red 0.0 Blood Cells % Immature 0.040 H Granulocytes # Neutrophils # 7.0 Neutrophils # 4.9 (Manual) Band Neutrophils 1.6 H # Lymphocytes 2.2 (Manual) Lymphocytes # 1.2 Monocytes # 0.4 Eosinophils # 0.1 Basophils # 0.0 Basophils # 0.0 (Manual) Nucleated Red 0.0 Blood Cells # Platelet Estimate SIG DECREASED Poikilocytosis 2+ Anisocytosis 2+ Macrocytosis 1+ Spherocytes 1+ Sodium Level 142 Potassium Level 3.8 Chloride Level 110 Carbon Dioxide 25 Level Anion Gap 7 Blood Urea 34 H Nitrogen Creatinine 1.20 H Est Glomerular 46 L Filtrat Rate mL/min Glucose Level 97 Calcium Level 8.6 Phosphorus Level 4.0 Magnesium Level 2.0 Lab Scanned BLOOD TRANSFUSIO Report N Iron Level 44 Total Iron 92 L Binding Capacity Percent Iron 48 Saturation Test 12/10/18 06:15 12/10/18 07:02 12/10/18 09:04 Bedside Glucose 97 96 103 Medications Medication Current Medications Ondansetron HCl (Zofran Inj) 4 mg Q6H PRN IV NAUSEA AND/OR VOMITING Last administered on 12/07/18at 09:06; Admin Dose 4 MG; Start 11/21/18 at 05:30 Albuterol/ Ipratropium (Duoneb) 3 ml Q2H RESP THERAPY PRN NEB SHORTNESS OF BREATH; Start 11/21/18 at 05:30 Meropenem/Sodium Chloride 50 ml @ 100 mls/hr Q12 IVPB Last administered on 12/09/18at 20:46; Admin Dose 100 MLS/HR; Start 11/21/18 at 21:00 Caspofungin 50 mg/ Sodium Chloride 250 ml @ 250 mls/hr Q24H IVPB Last admin istered on 12/09/18at 13:34; Admin Dose 250 MLS/HR; Start 11/24/18 at 13:00 Miscellaneous Information 1 ea NOTE XX ; Start 11/23/18 at 13:30 Glucose (Glutose) 15 gm Q15M PRN PO DECREASED GLUCOSE; Start 11/23/18 at 13:30 Glucose (Glutose) 22.5 gm Q15M PRN PO DECREASED GLUCOSE; Start 11/23/18 at 13:30 Dextrose (D50w Syringe) 25 ml Q15M PRN IV DECREASED GLUCOSE Last administered on 12/09/18at 13:59; Admin Dose 25 ML; Start 11/23/18 at 13:30 Dextrose (D50w Syringe) 50 ml Q15M PRN IV DECREASED GLUCOSE Last administered on 12/09/18at 19:44; Admin Dose 50 ML; Start 11/23/18 at 13:30 Glucagon (Glucagen) 1 mg Q15M PRN IM DECREASED GLUCOSE; Start 11/23/18 at 13:30 Glucose (Glutose) 15 gm Q15M PRN BUCCAL DECREASED GLUCOSE; Start 11/23/18 at 13:30 Propofol 100 ml @ 1.59 mls/hr Q12H IV Last administered on 12/05/18at 12:00; Admin Dose 0 MLS/HR; Start 11/24/18 at 00:00 Phenylephrine HCl 80 mg/Dextrose 250 ml @ 18.75 mls/ hr TITRATE IV ; Start 11/24/18 at 00:00 Alteplase, Recombinant (Cathflo (Activase)) 2 mg MAY REPEAT X1 PRN CATHETER IF CATHETER REMAINS OCCULUDED Last administered on 12/02/18 15:47; Admin Dose 2 MG; Start 11/26/18 at 03:00 Albumin Human 100 ml @ 100 mls/hr DURING DIALYSIS PRN IV HYPOTENSION DURING HD Last administered on 12/10/18 08:53; Admin Dose 100 MLS/HR; Start 11/26/18 at 14:00 Levothyroxine Sodium (Synthroid) 75 mcg BEFORE BREAKFAST NGT Last administered on 12/10/18 06:14; Admin Dose 75 MCG; Start 11/29/18 at 07:00 Midazolam HCl 50 ml @ 1 mls/hr TITRATE IV Last administered on 11/30/18 05:15; Admin Dose 50 MLS/HR; Start 11/29/18 at 09:00 Sodium Chloride 154 meq/Dextrose 1,038.5 ml @ 70 mls/hr [id number] IV Last administered on 12/09/18 03:25; Admin Dose 70 MLS/HR; Start 11/30/18 at 10:00 Collagenase (Santyl) 1 applic DAILY TOP Last administered on 12/09/18 08:54; Admin Dose 1 APPLIC; Start 12/01/18 at 16:30 Amiodarone HCl (Cordarone) 200 mg BID NGT Last administered on 12/09/18 20:46; Admin Dose 200 MG; Start 12/03/18 at 21:00 Acetaminophen (Tylenol Liquid) 650 mg Q6H PRN NGT PAIN LEVEL 1-3 OR FEVER; Start 12/06/18 at 09:00 Famotidine (Pepcid) 20 mg DAILY NGT Last administered on 12/09/18 08:53; Admin Dose 20 MG; Start 12/06/18 at 09:00 Folic Acid (Folic Acid) 1 mg DAILY NGT Last administered on 12/09/18 08:53; Admin Dose 1 MG; Start 12/06/18 at 09:00 Midodrine (Proamatine) 5 mg TID@09,13,17 GTB Last administered on 12/09/18 13:34; Admin Dose 5 MG; Start 12/07/18 at 09:00 Diagnostic Test (Pha) (Accu-Chek) 1 ea Q1H XX Last administered on 5/2/19at 06:12; Admin Dose 1 EA; Start 12/08/18 at 05:00 Norepinephrine 32 mg/Dextrose 250 ml @ 0.47 mls/hr TITRATE IV Last administered on 12/08/18at 11:18; Admin Dose 12.19 MLS/HR; Start 12/08/18 at 09:00 Epoetin Margarito-epbx (RETACRIT(esrd)) 10,000 unit MoWeFr@1700 SC ; Start 12/11/18 at 17:00 Eye Lubricant (Artificial Tears Oph) 2 drop QID BOTH EYES ; Start 12/10/18 at 09:00 JOSLYN LANDRUM MD December 10, 2018 12:28
[2018-12-10] MEDS: DEXTROSE 50% 50 ML SYRINGE IV PRN (13:14)
[2018-12-10] MEDS: SODIUM CHLORIDE 23.4% 154 MEQ in DEXTROSE 10% 1,000 ML IV SCH (13:14)
[2018-12-10] MEDS: MEROPENEM 500MG/50 ML (PMX) 50 ML IVPB SCH ×2 (13:48→20:26)
[2018-12-10] MEDS: FAMOTIDINE 20 MG TAB NGT SCH (13:49)
[2018-12-10] MEDS: FOLIC ACID 1 MG TAB NGT SCH (13:49)
[2018-12-10] MEDS: AMIODARONE 200 MG TAB NGT SCH ×2 (13:49→20:26)
[2018-12-10] MEDS: BALSAM PERU/CASTOR OIL 60 GM TUBE TOP SCH ×2 (13:51→20:27)
[2018-12-10] MEDS: COLLAGENASE 5 GM (UD JAR) TOP SCH (13:51)
[2018-12-10] MEDS: CASPOFUNGIN 50 MG in SOD CHLORIDE 0.9% 250 ML IVPB SCH (13:54)
--- NOTE | 2018-12-10 14:06 | PN ---
Date/Time of Note Date/Time of Note DATE: 12/10/18 TIME: 14:02 Assessment/Plan VTE Prophylaxis Risk score (from Ns)>0 risk: 12 SCD applied (from Ns): Yes Pharmacological prophylaxis: other (scds) Lines/Catheters IV Catheter Type (from Nrs): Mid Line Urinary Cath still in place: No Assessment/Plan Hospital Course Summary Assessment and Plan: Assessment: Dysphagia- requiring PEG placement Respiratory failure- intubated- failed extubation- s/p resp arrest post extubation 12/07- currently intubated- will require tracheostomy Septic Shock Gram Negative Bacteremia- repeat blood cx negative Left lower extremity wound - Antibiotics per ID Atrial Fibrillation PM ESRD Pancytopenia with coagulopathy, thrombocytopenia- likely 2/2 hepatocellular disease -Liver u/s- Mild coarsening of the hepatic echotexture may represent early changes of steatosis, cirrhosis, or other diffuse parenchymal process Ascites- 2/2 to fluid overload or hepatocellular disease Hypothyroidism Hx of peritoneal dialysis -Not being used Plan: PEG care BID Currently NPO for trach placement today GI will sign off but will be available upon reconsult as needed Patient seen in collaboration with Dr. [email or web address] Subjective: Course reviewed with nursing staff Patient interviewed and examined All labs, imaging and other results reviewed The patient remains in ICU Family at bedside, Plan for tracheostomy today No over night events noted. PHYSICAL EXAMINATION: GENERAL: Cachectic ill-appearing intubated on pressors SKIN: dialysis catheter EYES: Pupils equal reactive to light, no discharge. EARS/NOSE AND THROAT: Ears normal, nose normal, oropharynx normal. NECK: Supple, no masses CHEST: Inspection within normal limits. CARDIOVASCULAR: Heart: Regular rate and rhythm, paced RESPIRATORY: Lungs clear to auscultation GASTROINTESTINAL AND LIVER: Abdomen: Soft, non tenderness, g-tube,no hernias, no masses, no organomegaly, no guarding, no rebound tenderness, normoactive bowel sounds. Rectal: Deferred. Result Diagram: 12/10/18 0454 12/10/18 0454 Results 24hrs Laboratory Tests Test 12/09/18 14:13 12/09/18 15:14 12/09/18 16:18 12/09/18 17:17 Bedside Glucose 114 97 86 82 Test 12/09/18 19:33 12/09/18 20:36 12/09/18 22:40 12/09/18 23:49 Bedside Glucose 48 *L 193 138 126 Test 12/10/18 00:56 12/10/18 02:23 12/10/18 04:03 12/10/18 04:54 Bedside Glucose 114 113 104 White Blood Count 8.8 Red Blood Count 1.98 #L Hemoglobin 6.0 #*L Hematocrit 18.1 #L Mean Corpuscular 91.4 Volume Mean Corpuscular 30.3 Hemoglobin Mean Corpuscular 33.1 Hemoglobin Concen t Red Cell 20.8 H Distribution Width Platelet Count 29 #*L Mean Platelet Volume Immature 0.500 H Granulocytes % Neutrophils % 79.8 H Segmented 54 Neutrophils % (Manual) Band Neutrophils 19 H % (Manual) Lymphocytes % 13.5 L Lymphocytes % 26 (Manual) Monocytes % 4.4 Eosinophils % 1.5 Basophils % 0.3 Basophils % 1 (Manual) Nucleated Red 0.0 Blood Cells % Immature 0.040 H Granulocytes # Neutrophils # 7.0 Neutrophils # 4.9 (Manual) Band Neutrophils 1.6 H # Lymphocytes 2.2 (Manual) Lymphocytes # 1.2 Monocytes # 0.4 Eosinophils # 0.1 Basophils # 0.0 Basophils # 0.0 (Manual) Nucleated Red 0.0 Blood Cells # Platelet Estimate SIG DECREASED Poikilocytosis 2+ Anisocytosis 2+ Macrocytosis 1+ Spherocytes 1+ Sodium Level 142 Potassium Level 3.8 Chloride Level 110 Carbon Dioxide 25 Level Anion Gap 7 Blood Urea 34 H Nitrogen Creatinine 1.20 H Est Glomerular 46 L Filtrat Rate mL/min Glucose Level 97 Calcium Level 8.6 Phosphorus Level 4.0 Magnesium Level 2.0 Test 12/10/18 04:58 12/10/18 05:00 12/10/18 06:15 12/10/18 07:02 Lab Scanned BLOOD TRANSFUSIO Report N Iron Level 44 Total Iron 92 L Binding Capacity Percent Iron 48 Saturation Bedside Glucose 97 96 Test 12/10/18 09:04 12/10/18 12:39 12/10/18 12:58 12/10/18 13:16 Bedside Glucose 103 49 *L 184 149 Exam/Review of Systems Exam Vitals Vital Signs Date Temp Pulse Resp B/P (MAP) Pulse Ox O2 O2 Flow FiO2 Time Delivery Rate 12/10/18 108 20 100 40 12:45 12/10/18 146/63 Mechanical 07:45 (90) Ventilator 12/10/18 97.7 04:00 4/29/19 6.0 12:50 Intake and Output 12/09/18 12/09/18 12/10/18 1515:00 23:00 07:00 IntakeIntake Total 408.46 ml 500.81 ml OutputOutput Total 20 ml BalanceBalance -20 ml 408.46 ml 500.81 ml Results Results 24hrs Laboratory Tests Test 12/09/18 14:13 12/09/18 15:14 12/09/18 16:18 12/09/18 17:17 Bedside Glucose 114 97 86 82 Test 12/09/18 19:33 12/09/18 20:36 12/09/18 22:40 12/09/18 23:49 Bedside Glucose 48 *L 193 138 126 Test 12/10/18 00:56 12/10/18 02:23 12/10/18 04:03 12/10/18 04:54 Bedside Glucose 114 113 104 White Blood Count 8.8 Red Blood Count 1.98 #L Hemoglobin 6.0 #*L Hematocrit 18.1 #L Mean Corpuscular 91.4 Volume Mean Corpuscular 30.3 Hemoglobin Mean Corpuscular 33.1 Hemoglobin Concen t Red Cell 20.8 H Distribution Width Platelet Count 29 #*L Mean Platelet Volume Immature 0.500 H Granulocytes % Neutrophils % 79.8 H Segmented 54 Neutrophils % (Manual) Band Neutrophils 19 H % (Manual) Lymphocytes % 13.5 L Lymphocytes % 26 (Manual) Monocytes % 4.4 Eosinophils % 1.5 Basophils % 0.3 Basophils % 1 (Manual) Nucleated Red 0.0 Blood Cells % Immature 0.040 H Granulocytes # Neutrophils # 7.0 Neutrophils # 4.9 (Manual) Band Neutrophils 1.6 H # Lymphocytes 2.2 (Manual) Lymphocytes # 1.2 Monocytes # 0.4 Eosinophils # 0.1 Basophils # 0.0 Basophils # 0.0 (Manual) Nucleated Red 0.0 Blood Cells # Platelet Estimate SIG DECREASED Poikilocytosis 2+ Anisocytosis 2+ Macrocytosis 1+ Spherocytes 1+ Sodium Level 142 Potassium Level 3.8 Chloride Level 110 Carbon Dioxide 25 Level Anion Gap 7 Blood Urea 34 H Nitrogen Creatinine 1.20 H Est Glomerular 46 L Filtrat Rate mL/min Glucose Level 97 Calcium Level 8.6 Phosphorus Level 4.0 Magnesium Level 2.0 Test 12/10/18 04:58 12/10/18 05:00 12/10/18 06:15 12/10/18 07:02 Lab Scanned BLOOD TRANSFUSIO Report N Iron Level 44 Total Iron 92 L Binding Capacity Percent Iron 48 Saturation Bedside Glucose 97 96 Test 12/10/18 09:04 12/10/18 12:39 12/10/18 12:58 12/10/18 13:16 Bedside Glucose 103 49 *L 184 149 Medications Medication Current Medications Ondansetron HCl (Zofran Inj) 4 mg Q6H PRN IV NAUSEA AND/OR VOMITING Last administered on 12/07/18at 09:06; Admin Dose 4 MG; Start 11/21/18 at 05:30 Albuterol/ Ipratropium (Duoneb) 3 ml Q2H RESP THERAPY PRN NEB SHORTNESS OF JUANA TH; Start 11/21/18 at 05:30 Meropenem/Sodium Chloride 50 ml @ 100 mls/hr Q12 IVPB Last administered on 12/10/18at 13:48; Admin Dose 100 MLS/HR; Start 11/21/18 at 21:00 Caspofungin 50 mg/ Sodium Chloride 250 ml @ 250 mls/hr Q24H IVPB Last administered on 12/10/18at 13:54; Admin Dose 250 MLS/HR; Start 11/24/18 at 13:00 Miscellaneous Information 1 ea NOTE XX ; Start 11/23/18 at 13:30 Glucose (Glutose) 15 gm Q15M PRN PO DECREASED GLUCOSE; Start 11/23/18 at 13:30 Glucose (Glutose) 22.5 gm Q15M PRN PO DECREASED GLUCOSE; Start 11/23/18 at 13:30 Dextrose (D50w Syringe) 25 ml Q15M PRN IV DECREASED GLUCOSE Last administered on 12/09/18at 13:59; Admin Dose 25 ML; Start 11/23/18 at 13:30 Dextrose (D50w Syringe) 50 ml Q15M PRN IV DECREASED GLUCOSE Last administered on 12/10/18at 13:14; Admin Dose 50 ML; Start 11/23/18 at 13:30 Glucagon (Glucagen) 1 mg Q15M PRN IM DECREASED GLUCOSE; Start 11/23/18 at 13:30 Glucose (Glutose) 15 gm Q15M PRN BUCCAL DECREASED GLUCOSE; Start 11/23/18 at 13:30 Propofol 100 ml @ 1.59 mls/hr Q12H IV Last administered on 12/05/18 12:00; Admin Dose 0 MLS/HR; Start 11/24/18 at 00:00 Phenylephrine HCl 80 mg/Dextrose 250 ml @ 18.75 mls/ hr TITRATE IV ; Start 11/24/18 at 00:00 Alteplase, Recombinant (Cathflo (Activase)) 2 mg MAY REPEAT X1 PRN CATHETER IF CATHETER REMAINS OCCULUDED Last administered on 12/02/18 15:47; Admin Dose 2 MG; Start 11/26/18 at 03:00 Albumin Human 100 ml @ 100 mls/hr DURING DIALYSIS PRN IV HYPOTENSION DURING HD Last administered on 12/10/18 08:53; Admin Dose 100 MLS/HR; Start 11/26/18 at 14:00 Levothyroxine Sodium (Synthroid) 75 mcg BEFORE BREAKFAST NGT Last administered on 12/10/18 06:14; Admin Dose 75 MCG; Start 11/29/18 at 07:00 Midazolam HCl 50 ml @ 1 mls/hr TITRATE IV Last administered on 11/30/18 05:15; Admin Dose 50 MLS/HR; Start 11/29/18 at 09:00 Sodium Chloride 154 meq/Dextrose 1,038.5 ml @ 70 mls/hr [id number] IV Last administered on 12/10/18 13:14; Admin Dose 70 MLS/HR; Start 11/30/18 at 10:00 Collagenase (Santyl) 1 applic DAILY TOP Last administered on 12/10/18 13:51; Admin Dose 1 APPLIC; Start 12/01/18 at 16:30 Amiodarone HCl (Cordarone) 200 mg BID NGT Last administered on 12/10/18 13:49; Admin Dose 200 MG; Start 12/03/18 at 21:00 Acetaminophen (Tylenol Liquid) 650 mg Q6H PRN NGT PAIN LEVEL 1-3 OR FEVER; Start 12/06/18 at 09:00 Famotidine (Pepcid) 20 mg DAILY NGT Last administered on 12/10/18 13:49; Admin Dose 20 MG; Start 12/06/18 at 09:00 Folic Acid (Folic Acid) 1 mg DAILY NGT Last administered on 12/10/18 13:49; Admin Dose 1 MG; Start 12/06/18 at 09:00 Midodrine (Proamatine) 5 mg TID@09,13,17 GTB Last administered on 12/10/18 13:54; Admin Dose 5 MG; Start 12/07/18 at 09:00 Diagnostic Test (Pha) (Accu-Chek) 1 ea Q1H XX Last administered on 12/10/18 06:12; Admin Dose 1 EA; Start 12/08/18 at 05:00 Norepinephrine 32 mg/Dextrose 250 ml @ 0.47 mls/hr TITRATE IV Last administered on 12/08/18 11:18; Admin Dose 12.19 MLS/HR; Start 12/08/18 at 09:00 Epoetin Margarito-epbx (RETACRIT(esrd)) 10,000 unit MoWeFr@1700 SC ; Start 12/11/18 at 17:00 Eye Lubricant (Artificial Tears Oph) 2 drop QID BOTH EYES Last administered on 12/10/18 13:49; Admin Dose 2 DROP; Start 12/10/18 at 09:00 CLEVELAND FISH December 10, 2018 14:05
--- NOTE | 2018-12-10 14:40 | CONS ---
Assessment/Plan Assessment/Plan Hospital Course 58 yo F with hx of afib, ESRD on peritoneal dialysis, and other comorbidities... who initially presented with ams in the context of hypotension and severe hypoglycemia. Now s/p PEA arrest on 11/24; Targeted temperature therapy was deferred.. She was found to be protractedly encephalopathic, for which neurology is consulted. The clinical picture suggests an acute toxic-metabolic (?on chronic) encephalopathy...which has shown some improvement clinically.. HCT is reassuringly without obvious acute intracranial pathology. CXR + PNA Na 127, phos 6.9 ammonia, TSH, B12 wnl plt 24 P: Cont medical management per primary [place] as able Cont to limit sedating medications where possible PT/OT when able Will follow clinically Consultation Date/Type/Reason Admit Date/Time Nov 21, 2018 at 04:53 Type of Consult Neurology Reason for Consultation ams Requesting Provider: RIKA STOCK Date/Time of Note DATE: 12/10/18 TIME: 14:39 24 HR Interval Summary Free Text/Dictation Continues critical care. Pt reportedly planned for trach tonight. Subjective hx not possible: pt non-verbal, pt critical Exam Vital Signs Vitals Vital Signs Date Temp Pulse Resp B/P (MAP) Pulse Ox O2 O2 Flow FiO2 Time Delivery Rate 12/10/18 108 20 100 40 12:45 12/10/18 146/63 Mechanical 07:45 (90) Ventilator 12/10/18 97.7 04:00 12/07/18 6.0 12:50 Intake and Output 12/09/18 12/09/18 12/10/18 1515:00 23:00 07:00 IntakeIntake Total 408.46 ml 500.81 ml OutputOutput Total 20 ml BalanceBalance -20 ml 408.46 ml 500.81 ml Exam PE: Gen Appearance: No Apparent Distress HEENT: Intubated Cardiovascular: Regular rate Abdomen: Soft Extremities: Dry NE: The patient was asleep, though easily arousable. Nonverbal d/t ETT. Able to gesture and nod appropriately to yes/no questions. Able to follow simple axial and appendicular commands. Cranial nerve examination was limited by mental status. Pupils were equal and reactive to light. There was no afferent pupillary defect. Funduscopic examination was limited. Face was grossly symmetric, w/ present corneal and cough reflexes. Tone was normal. Muscle bulk was severely diminished. I did not see fasciculations. The patient was generally weak Coordination and gait testing was limited by mental status. Arm and leg reflexes were within normal limits and symmetric. Alvarez's sign was absent. Plantar responses were flexor. HOLLY FISHER NP December 10, 2018 14:40
--- NOTE | 2018-12-10 14:51 | CONS ---
Assessment/Plan Assessment/Plan Hospital Course (Demo Recall) Patient is awake, looks comfortable on vent, no fevers overnight still on pressors WBC 6.9 H&H 6.5 and 21 platelets 24 Antimicrobials: Cancidas, meropenem Microbiology: Blood culture on admission grew Klebsiella ESBL, repeat blood cultures negative, left thigh wound culture grew Klebsiella ESBL and Leah albicans Allergy: Zosyn, vancomycin Indwelling: Right upper thigh Davie catheter, left femoral triple-lumen catheter, endotracheal tube, orogastric tube, midline Physical examination: This is a chronically ill-appearing cachectic middle-aged woman who is laying comfortably in bed. Head atraumatic normocephalic. Neck is supple. Chest rise symmetrical. Breath sounds diminished bases. Heart: S1-S2, irreg. Abdomen distended. Bowel sounds hypoactive. Extremities with bilateral edema, cyanotic, multiple ecchymotic areas and bruises, left upper thigh dressing present is Assessment: 1. Sepsis with shock 2. Acute hypoxemic respiratory failure secondary to CHF exacerbation/probable pneumonia 3. Klebsiella ESBL bacteremia likely 2 to #4 4. 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 End-stage renal disease, hemodialysis dependent 6. Atrial fibrillation/PPM 7. Unstageable sacral decubitus 8. History of peritoneal dialysis with peritoneal dialysis still in place 9. Ascites status post paracentesis 3 weeks ago 10. Failure to thrive 11. Progressive thrombocytopenia 12. B mastoiditis and acute sinusitis Plan: Remains unchanged, continue antibiotics indefinitely for infected graft, prognosis poor Consultation Date/Type/Reason Admit Date/Time Nov 21, 2018 at 04:53 Initial Consult Date Type of Consult id Requesting Provider: RIKA STOCK Date/Time of Note DATE: 12/10/18 TIME: 14:50 Exam/Review of Systems Exam Vitals Vital Signs Date Temp Pulse Resp B/P (MAP) Pulse Ox O2 O2 Flow FiO2 Time Delivery Rate 12/10/18 108 20 100 40 12:45 12/10/18 146/63 Mechanical 07:45 (90) Ventilator 12/10/18 97.7 04:00 12/07/18 6.0 12:50 Intake and Output 12/09/18 12/09/18 12/10/18 1515:00 23:00 07:00 IntakeIntake Total 408.46 ml 500.81 ml OutputOutput Total 20 ml BalanceBalance -20 ml 408.46 ml 500.81 ml Results Result Diagram: 12/10/18 1359 12/10/18 0454 Results 24hrs Laboratory Tests Test 12/09/18 15:14 12/09/18 16:18 12/09/18 17:17 12/09/18 19:33 Bedside Glucose 97 86 82 48 *L Test 12/09/18 20:36 12/09/18 22:40 12/09/18 23:49 12/10/18 00:56 Bedside Glucose 193 138 126 114 Test 12/10/18 02:23 12/10/18 04:03 12/10/18 04:54 12/10/18 04:58 Bedside Glucose 113 104 White Blood Count 8.8 Red Blood Count 1.98 #L Hemoglobin 6.0 #*L Hematocrit 18.1 #L Mean Corpuscular 91.4 Volume Mean Corpuscular 30.3 Hemoglobin Mean Corpuscular 33.1 Hemoglobin Concen t Red Cell 20.8 H Distribution Width Platelet Count 29 #*L Mean Platelet Volume Immature 0.500 H Granulocytes % Neutrophils % 79.8 H Segmented 54 Neutrophils % (Manual) Band Neutrophils 19 H % (Manual) Lymphocytes % 13.5 L Lymphocytes % 26 (Manual) Monocytes % 4.4 Eosinophils % 1.5 Basophils % 0.3 Basophils % 1 (Manual) Nucleated Red 0.0 Blood Cells % Immature 0.040 H Granulocytes # Neutrophils # 7.0 Neutrophils # 4.9 (Manual) Band Neutrophils 1.6 H # Lymphocytes 2.2 (Manual) Lymphocytes # 1.2 Monocytes # 0.4 Eosinophils # 0.1 Basophils # 0.0 Basophils # 0.0 (Manual) Nucleated Red 0.0 Blood Cells # Platelet Estimate SIG DECREASED Poikilocytosis 2+ Anisocytosis 2+ Macrocytosis 1+ Spherocytes 1+ Sodium Level 142 Potassium Level 3.8 Chloride Level 110 Carbon Dioxide 25 Level Anion Gap 7 Blood Urea 34 H Nitrogen Creatinine 1.20 H Est Glomerular 46 L Filtrat Rate mL/min Glucose Level 97 Calcium Level 8.6 Phosphorus Level 4.0 Magnesium Level 2.0 Lab Scanned BLOOD TRANSFUSIO Report N Test 12/10/18 05:00 12/10/18 06:15 12/10/18 07:02 12/10/18 09:04 Iron Level 44 Total Iron 92 L Binding Capacity Percent Iron 48 Saturation Bedside Glucose 97 96 103 Test 12/10/18 12:39 12/10/18 12:58 12/10/18 13:16 12/10/18 13:59 Bedside Glucose 49 *L 184 149 White Blood Count 6.9 # Red Blood Count 2.10 L Hemoglobin 6.5 *L Hematocrit 21.1 L Mean Corpuscular 100.5 Volume Mean Corpuscular 31.0 Hemoglobin Mean Corpuscular 30.8 L Hemoglobin Concen t Red Cell 18.6 H Distribution Width Platelet Count 24 *L Mean Platelet Volume Immature 1.000 H Granulocytes % Neutrophils % 78.7 H Lymphocytes % 13.8 L Monocytes % 3.9 Eosinophils % 2.2 Basophils % 0.4 Nucleated Red 0.0 Blood Cells % Immature 0.070 H Granulocytes # Neutrophils # 5.4 Lymphocytes # 1.0 Monocytes # 0.3 Eosinophils # 0.2 Basophils # 0.0 Nucleated Red 0.0 Blood Cells # Test 12/10/18 14:14 Bedside Glucose 120 Medications Medication Current Medications Ondansetron HCl (Zofran Inj) 4 mg Q6H PRN IV NAUSEA AND/OR VOMITING Last administered on 12/07/18at 09:06; Admin Dose 4 MG; Start 11/21/18 at 05:30 Albuterol/ Ipratropium (Duoneb) 3 ml Q2H RESP THERAPY PRN NEB SHORTNESS OF BREATH; Start 11/21/18 at 05:30 Meropenem/Sodium Chloride 50 ml @ 100 mls/hr Q12 IVPB Last administered on 12/10/18at 13:48; Admin Dose 100 MLS/HR; Start 11/21/18 at 21:00 Caspofungin 50 mg/ Sodium Chloride 250 ml @ 250 mls/hr Q24H IVPB Last administered on 12/10/18at 13:54; Admin Dose 250 MLS/HR; Start 11/24/18 at 13:00 Miscellaneous Information 1 ea NOTE XX ; Start 11/23/18 at 13:30 Glucose (Glutose) 15 gm Q15M PRN PO DECREASED GLUCOSE; Start 11/23/18 at 13:30 Glucose (Glutose) 22.5 gm Q15M PRN PO DECREASED GLUCOSE; Start 11/23/18 at 13:30 Dextrose (D50w Syringe) 25 ml Q15M PRN IV DECREASED GLUCOSE Last administered on 12/09/18 13:59; Admin Dose 25 ML; Start 11/23/18 at 13:30 Dextrose (D50w Syringe) 50 ml Q15M PRN IV DECREASED GLUCOSE Last administered on 12/10/18 13:14; Admin Dose 50 ML; Start 11/23/18 at 13:30 Glucagon (Glucagen) 1 mg Q15M PRN IM DECREASED GLUCOSE; Start 11/23/18 at 13:30 Glucose (Glutose) 15 gm Q15M PRN BUCCAL DECREASED GLUCOSE; Start 11/23/18 at 13:30 Propofol 100 ml @ 1.59 mls/hr Q12H IV Last administered on 12/05/18 12:00; Admin Dose 0 MLS/HR; Start 11/24/18 at 00:00 Phenylephrine HCl 80 mg/Dextrose 250 ml @ 18.75 mls/ hr TITRATE IV ; Start 11/24/18 at 00:00 Alteplase, Recombinant (Cathflo (Activase)) 2 mg MAY REPEAT X1 PRN CATHETER IF CATHETER REMAINS OCCULUDED Last administered on 12/02/18 15:47; Admin Dose 2 MG; Start 11/26/18 at 03:00 Albumin Human 100 ml @ 100 mls/hr DURING DIALYSIS PRN IV HYPOTENSION DURING HD Last administered on 12/10/18 08:53; Admin Dose 100 MLS/HR; Start 11/26/18 at 14:00 Levothyroxine Sodium (Synthroid) 75 mcg BEFORE BREAKFAST NGT Last administered on 12/10/18 06:14; Admin Dose 75 MCG; Start 11/29/18 at 07:00 Midazolam HCl 50 ml @ 1 mls/hr TITRATE IV Last administered on 11/30/18 05:15; Admin Dose 50 MLS/HR; Start 11/29/18 at 09:00 Sodium Chloride 154 meq/Dextrose 1,038.5 ml @ 70 mls/hr [id number] IV Last administered on 12/10/18 13:14; Admin Dose 70 MLS/HR; Start 11/30/18 at 10:00 Collagenase (Santyl) 1 applic DAILY TOP Last administered on 12/10/18 13:51; Admin Dose 1 APPLIC; Start 12/01/18 at 16:30 Amiodarone HCl (Cordarone) 200 mg BID NGT Last administered on 12/10/18 13:49; Admin Dose 200 MG; Start 12/03/18 at 21:00 Acetaminophen (Tylenol Liquid) 650 mg Q6H PRN NGT PAIN LEVEL 1-3 OR FEVER; Start 12/06/18 at 09:00 Famotidine (Pepcid) 20 mg DAILY NGT Last administered on 12/10/18 13:49; Admin Dose 20 MG; Start 12/06/18 at 09:00 Folic Acid (Folic Acid) 1 mg DAILY NGT Last administered on 12/10/18 13:49; Admin Dose 1 MG; Start 12/06/18 at 09:00 Midodrine (Proamatine) 5 mg TID@,,17 GTB Last administered on 12/10/18 13:54; Admin Dose 5 MG; Start 12/07/18 at 09:00 Diagnostic Test (Pha) (Accu-Chek) 1 ea Q1H XX Last administered on 12/10/18 06:12; Admin Dose 1 EA; Start 12/08/18 at 05:00 Norepinephrine 32 mg/Dextrose 250 ml @ 0.47 mls/hr TITRATE IV Last administered on 12/08/18 11:18; Admin Dose 12.19 MLS/HR; Start 12/08/18 at 09:00 Epoetin Margarito-epbx (RETACRIT(esrd)) 10,000 unit MoWeFr@1700 SC ; Start 12/11/18 at 17:00 Eye Lubricant (Artificial Tears Oph) 2 drop QID BOTH EYES Last administered on 12/10/18 13:49; Admin Dose 2 DROP; Start 12/10/18 at 09:00 KELSIE ELY NP December 10, 2018 14:51
[2018-12-10] MEDS: NORepinephrine 32 MG in DEXTROSE 5% 218 ML IV SCH (14:54)
[2018-12-10] MEDS: METHYLPREDNISOLONE 40 MG INJ IV SCH ×2 (18:37→23:35)
[2018-12-10] MEDS ORDERED: PHYTONADIONE 10 MG/ML INJ SC ONE (19:30)
--- NOTE | 2018-12-10 19:48 | PN ---
Date/Time of Note Date/Time of Note DATE: 12/10/18 TIME: 19:47 Assessment/Plan Lines/Catheters IV Catheter Type (from Nrsg): Mid Line Moon in Place (from Nrsg): No Assessment/Plan Assessment/Plan Respiratory failure Thrombocytopenia platelet count 29 Plan to proceed with tracheostomy when thrombocytopenia improved Subjective 24 Hr Interval Summary Constitutional: improved Pain Control: mild Exam/Review of Systems Vital Signs Vitals Vital Signs Date Temp Pulse Resp B/P (MAP) Pulse Ox O2 O2 Flow FiO2 Time Delivery Rate 12/10/18 71 20 100 40 19:17 12/10/18 98/60 (73) 18:45 12/10/18 Mechanical 18:00 Ventilator 12/10/18 97.5 16:00 12/07/18 6.0 12:50 Intake and Output 12/09/18 12/09/18 12/10/18 1515:00 23:00 07:00 IntakeIntake Total 408.46 ml 503.15 ml OutputOutput Total 20 ml BalanceBalance -20 ml 408.46 ml 503.15 ml Exam Eyes: nl conjunctiva, EOMI, nl lids, nl sclera ENMT: nl external ears & nose, nl lips & teeth, nl nasal mucosa & septum, mucosa pink and moist Neck: supple, non-tender Respiratory: clear to auscultation, normal air movement Cardiovascular: regular rate and rhythm, nl pulses Musculoskeletal: nl extremities to inspection, nl gait and stance Results Result Diagram: 12/10/18 1359 12/10/18 0454 TAE PAN MD December 10, 2018 19:48
[2018-12-11] VITALS (103 sets, daily range): BP systolic 83–137; BP diastolic 54–120; PULSE 60–79; RESP 17–21
[2018-12-11] MEDS: ACCU-CHEK XX SCH ×9 (01:00→21:15)
[2018-12-11] MEDS: SODIUM CHLORIDE 23.4% 154 MEQ in DEXTROSE 10% 1,000 ML IV SCH ×2 (03:30→16:17)
[2018-12-11] MEDS: METHYLPREDNISOLONE 40 MG INJ IV SCH ×3 (05:53→18:36)
[2018-12-11] MEDS: LEVOTHYROXINE 75 MCG TAB NGT SCH (06:47)
[2018-12-11] MEDS: ONDANSETRON 4 MG INJ IV PRN (06:53)
--- NOTE | 2018-12-11 08:02 | PN ---
Date/Time of Note Date/Time of Note DATE: 12/11/18 TIME: 08:01 Assessment/Plan Lines/Catheters IV Catheter Type (from Nrsg): Mid Line Moon in Place (from Nrsg): No Assessment/Plan Assessment/Plan Resp failure plt count 24 plan for tracheostomy when thrombocytopenia improved Subjective 24 Hr Interval Summary Constitutional: improved Pain Control: mild Exam/Review of Systems Vital Signs Vitals Vital Signs Date Temp Pulse Resp B/P (MAP) Pulse Ox O2 O2 Flow FiO2 Time Delivery Rate 12/11/18 62 20 100 35 05:56 12/11/18 112/62 05:45 (79) 12/11/18 Mechanical 05:00 Ventilator 12/11/18 97.5 04:00 12/07/18 6.0 12:50 Intake and Output 12/10/18 12/10/18 12/11/18 1515:00 23:00 07:00 IntakeIntake Total 536.85 ml 1519.965 ml 467.69 ml OutputOutput Total 2100 ml BalanceBalance -1563.15 ml 1519.965 ml 467.69 ml Exam Eyes: nl conjunctiva, EOMI, nl lids, nl sclera ENMT: nl external ears & nose, nl lips & teeth, nl nasal mucosa & septum, mucosa pink and moist Neck: supple, non-tender Cardiovascular: regular rate and rhythm, nl pulses Gastrointestinal: soft, nl liver, spleen, non-tender Results Result Diagram: 12/11/18 0455 12/11/18 0455 TAE PAN MD December 11, 2018 08:02
--- NOTE | 2018-12-11 08:12 | PN ---
DATE: 12/11/2018 SUBJECTIVE: The patient remains critically ill on pressor support. The patient had hemodialysis yes terday, anticipate dialysis again tomorrow. The patient is pending trach placement once platelets danielle ve improved. No other events noted. OBJECTIVE: VITAL SIGNS: Blood pressure is 112/62, respirations 20, pulse 65, temperature 98.6. HEENT: Head is normocephalic. NECK: Supple. HEART: Tachycardic. LUNGS: Show diminished breath sounds at the base. ABDOMEN: Soft, nontender to palpation. Positive PD catheter. EXTREMITIES: Negative for clubbing, cyanosis. Positive edema, diffuse anasarca. DERMATOLOGIC: No rashes. MUSCULOSKELETAL: No joint effusion. NEUROLOGIC: No change in exam. MEDICATIONS: Reviewed. LABORATORY DATA: From 12/11/2018 was reviewed. IMAGING STUDIES: Reviewed. MICROBIOLOGY: Cultures have been reviewed. ASSESSMENT AND PLAN: 1. End-stage renal disease. The patient had hemodialysis yesterday. Plan is for dialysis again cherie orrow. 2. Access. The patient has Davie catheter in the left femoral vein. Pending Davie catheter exc hange per CT surgery. Anticipate exchange once platelets have improved. 3. Volume overload with diffuse anasarca. Continue ultrafiltration with hemodialysis if hemodynamic ally stable. 4. Septic shock secondary to pneumonia. Continue pressor support, wean off as tolerated. Continue broad-spectrum antibiotics. 5. Anemia. Continue to monitor hemoglobin and hematocrit levels. Continue Epogen. The patient is status post blood transfusion. 6. Mineral bone disorder. Monitor calcium and phosphorus levels. 7. Ventilator-dependent respiratory failure. Vent settings and ABG was reviewed. Continue to monit or. 8. Acute encephalopathy, etiology is toxic metabolic. 9. Ascites, status post paracentesis. 10. Hypothyroidism. Continue Synthroid. 11. Dysphagia, status post PEG. Continue tube feeding. 12. Arrhythmia. Continue amiodarone. 13. Hypoglycemia, improving. We will deescalate dextrose drip. 14. Lower extremity wounds. Continue wound care. 15. Status post cardiopulmonary arrest. Dictated By: SARIKA JOINER DO NR/NTS Conf#: [id number] DID#: [id number] CC: MANDY BATES MD; JOSLYN LANDRUM MD; LORRAINE JOHNSON MD;*EndCC*
[2018-12-11] MEDS ORDERED: PHYTONADIONE 10 MG/ML INJ SC ONE (09:00)
--- NOTE | 2018-12-11 09:17 | CONS ---
Assessment/Plan Assessment/Plan Assessment/Plan (Daily) Chest x-ray was reviewed from today which is again showing bilateral pneumonia. Ventilator setting; AC of 20, tidal volume 450, PEEP of 5, 35% FiO2. Patient is on Levophed 3 mics per minute. Assessment and recommendations; 1. Patient admitted with severe bilateral pneumonia with respiratory failure without any ability to handle weaning from ventilator despite multiple times. 2. Chronic renal failure, on hemodialysis. 3. Anemia and severe thrombocytopenia. Status post multiple blood product transfusion. 4. History of cardiac arrhythmia, status post pacemaker placement in the past. Continue current supportive care. Patient scheduled for tracheostomy. 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 Overall prognosis is poor. Consultation Date/Type/Reason Admit Date/Time Nov 21, 2018 at 04:53 Initial Consult Date Type of Consult Pulmonary Requesting Provider: RIKA STOCK Date/Time of Note DATE: 12/11/18 TIME: 09:15 24 HR Interval Summary Free Text/Dictation Patient's condition remains critical. Remains mildly hypotensive requiring low-dose Levophed.; General examination; elderly lady, appears emaciated, orally intubated, awake and appropriately responsive. Currently in no distress. Exam/Review of Systems Exam Vitals Vital Signs Date Temp Pulse Resp B/P (MAP) Pulse Ox O2 O2 Flow FiO2 Time Delivery Rate 12/11/18 62 20 100 35 05:56 12/11/18 112/62 05:45 (79) 12/11/18 Mechanical 05:00 Ventilator 12/11/18 97.5 04:00 12/07/18 6.0 12:50 Intake and Output 12/10/18 12/10/18 12/11/18 1515:00 23:00 07:00 IntakeIntake Total 536.85 ml 1519.965 ml 467.69 ml OutputOutput Total 2100 ml BalanceBalance -1563.15 ml 1519.965 ml 467.69 ml Exam H EENT exam; supple neck, no JVD. No lymphadenopathy. Midline trachea. No thyromegaly. Patient has had multiple carious teeth. Orally intubated. Chest exam; diminished breath sounds bilaterally S1-S2 audible, no murmurs. Regular rhythm. Abdomen exam; soft, no organomegaly. Bowel sounds audible. G-tube in place. Extremity exam; no peripheral edema. STATE EDITOR exam; she is awake and appropriately responsive. Results Result Diagram: 12/11/18 0455 12/11/18 0455 Results 24hrs Laboratory Tests Test 12/10/18 12:39 12/10/18 12:58 12/10/18 13:16 12/10/18 13:59 Bedside Glucose 49 *L 184 149 White Blood Count 6.9 # Red Blood Count 2.10 L Hemoglobin 6.5 *L Hematocrit 21.1 L Mean Corpuscular 100.5 Volume Mean Corpuscular 31.0 Hemoglobin Mean Corpuscular 30.8 L Hemoglobin Concen t Red Cell 18.6 H Distribution Width Platelet Count 24 *L Mean Platelet Volume Immature 1.000 H Granulocytes % Neutrophils % 78.7 H Lymphocytes % 13.8 L Monocytes % 3.9 Eosinophils % 2.2 Basophils % 0.4 Nucleated Red 0.0 Blood Cells % Immature 0.070 H Granulocytes # Neutrophils # 5.4 Lymphocytes # 1.0 Monocytes # 0.3 Eosinophils # 0.2 Basophils # 0.0 Nucleated Red 0.0 Blood Cells # Test 12/10/18 14:14 12/10/18 16:20 12/10/18 18:31 12/10/18 19:27 Bedside Glucose 120 98 85 83 Test 12/10/18 20:38 12/10/18 23:03 12/11/18 01:33 12/11/18 03:32 Bedside Glucose 85 85 147 138 Test 12/11/18 04:55 12/11/18 05:02 12/11/18 05:56 White Blood Count 5.0 # Red Blood Count 2.55 #L Hemoglobin 7.8 L Hematocrit 23.0 L Mean Corpuscular 90.2 Volume Mean Corpuscular 30.6 Hemoglobin Mean Corpuscular 33.9 Hemoglobin Concen t Red Cell 17.9 H Distribution Width Platelet Count 26 *L Mean Platelet Volume Immature 1.200 H Granulocytes % Neutrophils % Segmented 77 Neutrophils % (Manual) Band Neutrophils 5 H % (Manual) Lymphocytes % Lymphocytes % 18 (Manual) Monocytes % Eosinophils % Basophils % Nucleated Red 0.0 Blood Cells % Immature 0.060 H Granulocytes # Neutrophils # Neutrophils # 3.9 (Manual) Band Neutrophils 0.2 # Lymphocytes 0.9 (Manual) Lymphocytes # Monocytes # Eosinophils # Basophils # Nucleated Red Blood Cells # Platelet Estimate SIG DECREASED Giant Platelets 45 H Poikilocytosis 3+ Anisocytosis 2+ Macrocytosis 2+ Target Cells 1+ Sodium Level 143 Potassium Level 3.9 Chloride Level 110 Carbon Dioxide 24 Level Anion Gap 9 Blood Urea 29 H Nitrogen Creatinine 0.92 Est Glomerular > 60 Filtrat Rate mL/min Glucose Level 125 Calcium Level 8.8 Phosphorus Level 3.4 Magnesium Level 1.9 Lab Scanned BLOOD TRANSFUSIO Report N Bedside Glucose 140 Medications Medication Current Medications Ondansetron HCl (Zofran Inj) 4 mg Q6H PRN IV NAUSEA AND/OR VOMITING Last administered on 12/11/18 06:53; Admin Dose 4 MG; Start 11/21/18 at 05:30 Albuterol/ Ipratropium (Duoneb) 3 ml Q2H RESP THERAPY PRN NEB SHORTNESS OF BREATH; Start 11/21/18 at 05:30 Meropenem/Sodium Chloride 50 ml @ 100 mls/hr Q12 IVPB Last administered on 12/10/18at 20:26; Admin Dose 100 MLS/HR; Start 11/21/18 at 21:00 Caspofungin 50 mg/ Sodium Chloride 250 ml @ 250 mls/hr Q24H IVPB Last administered on 12/10/18 13:54; Admin Dose 250 MLS/HR; Start 11/24/18 at 13:00 Miscellaneous Information 1 ea NOTE XX ; Start 11/23/18 at 13:30 Glucose (Glutose) 15 gm Q15M PRN PO DECREASED GLUCOSE; Start 11/23/18 at 13:30 Glucose (Glutose) 22.5 gm Q15M PRN PO DECREASED GLUCOSE; Start 11/23/18 at 13:30 Dextrose (D50w Syringe) 25 ml Q15M PRN IV DECREASED GLUCOSE Last administered on 12/09/18at 13:59; Admin Dose 25 ML; Start 11/23/18 at 13:30 Dextrose (D50w Syringe) 50 ml Q15M PRN IV DECREASED GLUCOSE Last administered on 12/10/18 13:14; Admin Dose 50 ML; Start 11/23/18 at 13:30 Glucagon (Glucagen) 1 mg Q15M PRN IM DECREASED GLUCOSE; Start 11/23/18 at 13:30 Glucose (Glutose) 15 gm Q15M PRN BUCCAL DECREASED GLUCOSE; Start 11/23/18 at 13:30 Propofol 100 ml @ 1.59 mls/hr Q12H IV Last administered on 12/05/18 12:00; Admin Dose 0 MLS/HR; Start 11/24/18 at 00:00 Phenylephrine HCl 80 mg/Dextrose 250 ml @ 18.75 mls/ hr TITRATE IV ; Start 11/24/18 at 00:00 Alteplase, Recombinant (Cathflo (Activase)) 2 mg MAY REPEAT X1 PRN CATHETER IF CATHETER REMAINS OCCULUDED Last administered on 12/02/18 15:47; Admin Dose 2 MG; Start 11/26/18 at 03:00 Albumin Human 100 ml @ 100 mls/hr DURING DIALYSIS PRN IV HYPOTENSION DURING HD Last administered on 12/10/18 08:53; Admin Dose 100 MLS/HR; Start 11/26/18 at 14:00 Levothyroxine Sodium (Synthroid) 75 mcg BEFORE BREAKFAST NGT Last administered on 12/11/18 06:47; Admin Dose 75 MCG; Start 11/29/18 at 07:00 Midazolam HCl 50 ml @ 1 mls/hr TITRATE IV Last administered on 11/30/18 05:15; Admin Dose 50 MLS/HR; Start 11/29/18 at 09:00 Sodium Chloride 154 meq/Dextrose 1,038.5 ml @ 40 mls/hr Q24H IV Last administered on 12/11/18 03:30; Admin Dose 70 MLS/HR; Start 11/30/18 at 10:00 Collagenase (Santyl) 1 applic DAILY TOP Last administered on 12/10/18 13:51; Admin Dose 1 APPLIC; Start 12/01/18 at 16:30 Amiodarone HCl (Cordarone) 200 mg BID NGT Last administered on 12/10/18 20:26; Admin Dose 200 MG; Start 12/03/18 at 21:00 Acetaminophen (Tylenol Liquid) 650 mg Q6H PRN NGT PAIN LEVEL 1-3 OR FEVER; Start 12/06/18 at 09:00 Famotidine (Pepcid) 20 mg DAILY NGT Last administered on 12/10/18 13:49; Admin Dose 20 MG; Start 12/06/18 at 09:00 Folic Acid (Folic Acid) 1 mg DAILY NGT Last administered on 12/10/18 13:49; A dmin Dose 1 MG; Start 12/06/18 at 09:00 Midodrine (Proamatine) 5 mg TID@09,13,17 GTB Last administered on 12/10/18 18:37; Admin Dose 5 MG; Start 12/07/18 at 09:00 Diagnostic Test (Pha) (Accu-Chek) 1 ea Q1H XX Last administered on 12/10/18 19:29; Admin Dose 1 EA; Start 12/08/18 at 05:00 Norepinephrine 32 mg/Dextrose 250 ml @ 0.47 mls/hr TITRATE IV Last administered on 12/10/18 14:54; Admin Dose 4.69 MLS/HR; Start 12/08/18 at 09:00 Epoetin Margarito-epbx (RETACRIT(esrd)) 10,000 unit MoWeFr@1700 SC ; Start 12/11/18 at 17:00 Eye Lubricant (Artificial Tears Oph) 2 drop QID BOTH EYES Last administered on 12/10/18 20:25; Admin Dose 2 DROP; Start 12/10/18 at 09:00 Methylprednisolone Sodium Succinate (Solu-Medrol) 40 mg Q6 IV Last administered on 12/11/18 05:53; Admin Dose 40 MG; Start 12/10/18 at 18:00 MARIAN KUMAR December 11, 2018 09:17
--- NOTE | 2018-12-11 09:39 | CONS ---
Assessment/Plan Assessment/Plan Assessment/Plan (Daily) Bilateral pneumonias Unable to be weaned from the ventilator Emaciated ICU malnutrition on clinical examination Renal failure on hemodialysis Many physicians have spoken to family members about patient's poor clinical condition and to consider changing her code to DO NOT RESUSCITATE. Family memb ers have gone so far is asking me to speak to other doctors and tell them not to ask them about changing code again. Patient's overall prognosis extremely poor. Consultation Date/Type/Reason Admit Date/Time Nov 21, 2018 at 04:53 Initial Consult Date Requesting Provider: RIKA STOCK Date/Time of Note DATE: 12/11/18 TIME: 09:38 Exam/Review of Systems Exam Vitals Vital Signs Date Temp Pulse Resp B/P (MAP) Pulse Ox O2 O2 Flow FiO2 Time Delivery Rate 12/11/18 62 20 100 35 05:56 12/11/18 112/62 05:45 (79) 12/11/18 Mechanical 05:00 Ventilator 12/11/18 97.5 04:00 12/07/18 6.0 12:50 Intake and Output 12/10/18 12/10/18 12/11/18 1515:00 23:00 07:00 IntakeIntake Total 536.85 ml 1519.965 ml 467.69 ml OutputOutput Total 2100 ml BalanceBalance -1563.15 ml 1519.965 ml 467.69 ml Constitutional: frail Head: normocephalic, atraumatic; No lacerations, No hematomas, No other Eyes: nl conjunctiva, EOMI, nl lids, nl sclera, PERRL; No icteric, No fundi, disc, No other Respiratory: congested cough, diminished breath sounds Cardiovascular: regular rate and rhythm, nl pulses Neurological: other (Patient cannot participate in an adequate neurological examination, she is minimally responsive to verbal and tactile stimulation positive gag positive oculocephalics) Results Result Diagram: 12/11/18 0455 12/11/18 0455 Results 24hrs Laboratory Tests Test 12/10/18 12:39 12/10/18 12:58 12/10/18 13:16 12/10/18 13:59 Bedside Glucose 49 *L 184 149 White Blood Count 6.9 # Red Blood Count 2.10 L Hemoglobin 6.5 *L Hematocrit 21.1 L Mean Corpuscular 100.5 Volume Mean Corpuscular 31.0 Hemoglobin Mean Corpuscular 30.8 L Hemoglobin Concen t Red Cell 18.6 H Distribution Width Platelet Count 24 *L Mean Platelet Volume Immature 1.000 H Granulocytes % Neutrophils % 78.7 H Lymphocytes % 13.8 L Monocytes % 3.9 Eosinophils % 2.2 Basophils % 0.4 Nucleated Red 0.0 Blood Cells % Immature 0.070 H Granulocytes # Neutrophils # 5.4 Lymphocytes # 1.0 Monocytes # 0.3 Eosinophils # 0.2 Basophils # 0.0 Nucleated Red 0.0 Blood Cells # Test 12/10/18 14:14 12/10/18 16:20 12/10/18 18:31 12/10/18 19:27 Bedside Glucose 120 98 85 83 Test 12/10/18 20:38 12/10/18 23:03 12/11/18 01:33 12/11/18 03:32 Bedside Glucose 85 85 147 138 Test 12/11/18 04:55 12/11/18 05:02 12/11/18 05:56 12/11/18 09:30 White Blood Count 5.0 # Red Blood Count 2.55 #L Hemoglobin 7.8 L Hematocrit 23.0 L Mean Corpuscular 90.2 Volume Mean Corpuscular 30.6 Hemoglobin Mean Corpuscular 33.9 Hemoglobin Concen t Red Cell 17.9 H Distribution Width Platelet Count 26 *L Mean Platelet Volume Immature 1.200 H Granulocytes % Neutrophils % Segmented 77 Neutrophils % (Manual) Band Neutrophils 5 H % (Manual) Lymphocytes % Lymphocytes % 18 (Manual) Monocytes % Eosinophils % Basophils % Nucleated Red 0.0 Blood Cells % Immature 0.060 H Granulocytes # Neutrophils # Neutrophils # 3.9 (Manual) Band Neutrophils 0.2 # Lymphocytes 0.9 (Manual) Lymphocytes # Monocytes # Eosinophils # Basophils # Nucleated Red Blood Cells # Platelet Estimate SIG DECREASED Giant Platelets 45 H Poikilocytosis 3+ Anisocytosis 2+ Macrocytosis 2+ Target Cells 1+ Sodium Level 143 Potassium Level 3.9 Chloride Level 110 Carbon Dioxide 24 Level Anion Gap 9 Blood Urea 29 H Nitrogen Creatinine 0.92 Est Glomerular > 60 Filtrat Rate mL/min Glucose Level 125 Calcium Level 8.8 Phosphorus Level 3.4 Magnesium Level 1.9 Lab Scanned BLOOD TRANSFUSIO Report N Bedside Glucose 140 131 Medications Medication Current Medications Ondansetron HCl (Zofran Inj) 4 mg Q6H PRN IV NAUSEA AND/OR VOMITING Last administered on 12/11/18 06:53; Admin Dose 4 MG; Start 11/21/18 at 05:30 Albuterol/ Ipratropium (Duoneb) 3 ml Q2H RESP THERAPY PRN NEB SHORTNESS OF BREATH; Start 11/21/18 at 05:30 Meropenem/Sodium Chloride 50 ml @ 100 mls/hr Q12 IVPB Last administered on 12/10/18at 20:26; Admin Dose 100 MLS/HR; Start 11/21/18 at 21:00 Caspofungin 50 mg/ Sodium Chloride 250 ml @ 250 mls/hr Q24H IVPB Last a dministered on 12/10/18at 13:54; Admin Dose 250 MLS/HR; Start 11/24/18 at 13:00 Miscellaneous Information 1 ea NOTE XX ; Start 11/23/18 at 13:30 Glucose (Glutose) 15 gm Q15M PRN PO DECREASED GLUCOSE; Start 11/23/18 at 13:30 Glucose (Glutose) 22.5 gm Q15M PRN PO DECREASED GLUCOSE; Start 11/23/18 at 1 3:30 Dextrose (D50w Syringe) 25 ml Q15M PRN IV DECREASED GLUCOSE Last administered on 12/09/18at 13:59; Admin Dose 25 ML; Start 11/23/18 at 13:30 Dextrose (D50w Syringe) 50 ml Q15M PRN IV DECREASED GLUCOSE Last administered on 12/10/18at 13:14; Admin Dose 50 ML; Start 11/23/18 at 13:30 Glucagon (Glucagen) 1 mg Q15M PRN IM DECREASED GLUCOSE; Start 11/23/18 at 13:30 Glucose (Glutose) 15 gm Q15M PRN BUCCAL DECREASED GLUCOSE; Start 11/23/18 at 13:30 Propofol 100 ml @ 1.59 mls/hr Q12H IV Last administered on 12/05/18at 12:00; Admin Dose 0 MLS/HR; Start 11/24/18 at 00:00 Phenylephrine HCl 80 mg/Dextrose 250 ml @ 18.75 mls/ hr TITRATE IV ; Start 11/24/18 at 00:00 Alteplase, Recombinant (Cathflo (Activase)) 2 mg MAY REPEAT X1 PRN CATHETER IF CATHETER REMAINS OCCULUDED Last administered on 12/02/18 15:47; Admin Dose 2 MG; Start 11/26/18 at 03:00 Albumin Human 100 ml @ 100 mls/hr DURING DIALYSIS PRN IV HYPOTENSION DURING HD Last administered on 12/10/18 08:53; Admin Dose 100 MLS/HR; Start 11/26/18 at 14:00 Levothyroxine Sodium (Synthroid) 75 mcg BEFORE BREAKFAST NGT Last administered on 12/11/18 06:47; Admin Dose 75 MCG; Start 11/29/18 at 07:00 Midazolam HCl 50 ml @ 1 mls/hr TITRATE IV Last administered on 11/30/18 05:15; Admin Dose 50 MLS/HR; Start 11/29/18 at 09:00 Sodium Chloride 154 meq/Dextrose 1,038.5 ml @ 40 mls/hr Q24H IV Last administered on 12/11/18 03:30; Admin Dose 70 MLS/HR; Start 11/30/18 at 10:00 Collagenase (Santyl) 1 applic DAILY TOP Last administered on 12/10/18 13:51; Admin Dose 1 APPLIC; Start 12/01/18 at 16:30 Amiodarone HCl (Cordarone) 200 mg BID NGT Last administered on 12/10/18 20:26; Admin Dose 200 MG; Start 12/03/18 at 21:00 Acetaminophen (Tylenol Liquid) 650 mg Q6H PRN NGT PAIN LEVEL 1-3 OR FEVER; Start 12/06/18 at 09:00 Famotidine (Pepcid) 20 mg DAILY NGT Last administered on 12/10/18 13:49; Admin Dose 20 MG; Start 12/06/18 at 09:00 Folic Acid (Folic Acid) 1 mg DAILY NGT Last administered on 12/10/18 13:49; Admin Dose 1 MG; Start 12/06/18 at 09:00 Midodrine (Proamatine) 5 mg TID@,13,17 GTB Last administered on 12/10/18 18:37; Admin Dose 5 MG; Start 12/07/18 at 09:00 Diagnostic Test (Pha) (Accu-Chek) 1 ea Q1H XX Last administered on 5/2/19at 19:29; Admin Dose 1 EA; Start 12/08/18 at 05:00 Norepinephrine 32 mg/Dextrose 250 ml @ 0.47 mls/hr TITRATE IV Last administered on 12/10/18at 14:54; Admin Dose 4.69 MLS/HR; Start 12/08/18 at 09:00 Epoetin Margarito-epbx (RETACRIT(esrd)) 10,000 unit MoWeFr@1700 SC ; Start 12/11/18 at 17:00 Eye Lubricant (Artificial Tears Oph) 2 drop QID BOTH EYES Last administered on 12/10/18at 20:25; Admin Dose 2 DROP; Start 12/10/18 at 09:00 Methylprednisolone Sodium Succinate (Solu-Medrol) 40 mg Q6 IV Last administered on 12/11/18at 05:53; Admin Dose 40 MG; Start 12/10/18 at 18:00 JULIEN SALINAS December 11, 2018 09:39
[2018-12-11] MEDS: FOLIC ACID 1 MG TAB NGT SCH (10:51)
[2018-12-11] MEDS: AMIODARONE 200 MG TAB NGT SCH ×2 (10:51→21:15)
[2018-12-11] MEDS: FAMOTIDINE 20 MG TAB NGT SCH (10:51)
[2018-12-11] MEDS: MEROPENEM 500MG/50 ML (PMX) 50 ML IVPB SCH (10:51)
[2018-12-11] MEDS: MIDODRINE 5 MG TAB GTB SCH ×3 (10:51→18:39)
[2018-12-11] MEDS: BALSAM PERU/CASTOR OIL 60 GM TUBE TOP SCH ×2 (10:52→21:16)
[2018-12-11] MEDS: COLLAGENASE 5 GM (UD JAR) TOP SCH (10:52)
[2018-12-11] MEDS: ARTIFICIAL TEARS 15 ML OPH BOTH EYES SCH ×4 (10:53→21:15)
--- NOTE | 2018-12-11 11:57 | CONS ---
Assessment/Plan Assessment/Plan Hospital Course 58 yo F with hx of afib, ESRD on peritoneal dialysis, and other comorbidities... who initially presented with ams in the context of hypotension and severe hypoglycemia. Now s/p PEA arrest on 11/24; Targeted temperature therapy was deferred.. She was found to be protractedly encephalopathic, for which neurology is consulted. The clinical picture suggests an acute toxic-metabolic (?on chronic) encephalopathy...which has shown some improvement clinically.. HCT is reassuringly without obvious acute intracranial pathology. CXR + PNA Na 127, phos 6.9 ammonia, TSH, B12 wnl plt 24 P: Cont medical management per primary Reynolds as able Cont to limit sedating medications where possible PT/OT when able Will follow clinically Consultation Date/Type/Reason Admit Date/Time Nov 21, 2018 at 04:53 Type of Consult Neurology Reason for Consultation ams Requesting Provider: RIKA STOCK Date/Time of Note DATE: 12/11/18 TIME: 11:57 24 HR Interval Summary Free Text/Dictation Continues critical care. Pt unable to get trach d/t coagulopathy. Subjective hx not possible: pt non-verbal Exam Vital Signs Vitals Vital Signs Date Temp Pulse Resp B/P (MAP) Pulse Ox O2 O2 Flow FiO2 Time Delivery Rate 12/11/18 66 08:00 12/11/18 20 100 35 05:56 12/11/18 112/62 05:45 (79) 12/11/18 Mechanical 05:00 Ventilator 12/11/18 97.5 04:00 12/07/18 6.0 12:50 Intake and Output 12/10/18 12/10/18 12/11/18 1515:00 23:00 07:00 IntakeIntake Total 536.85 ml 1519.965 ml 467.69 ml OutputOutput Total 2100 ml BalanceBalance -1563.15 ml 1519.965 ml 467.69 ml Exam Exam PE: Gen Appearance: No Apparent Distress HEENT: Intubated Cardiovascular: Regular rate Abdomen: Soft Extremities: Dry NE: The patient was awake and alert. Nonverbal d/t ETT. Able to gesture and nod appropriately to yes/no questions. Able to follow simple axial and appendicular commands. Cranial nerve examination was limited by mental status. Pupils were equal and reactive to light. There was no afferent pupillary defect. Funduscopic examination was limited. Face was grossly symmetric, w/ present corneal and cough reflexes. Tone was normal. Muscle bulk was severely diminished. I did not see fasciculations. The patient was generally weak, symmetrically Coordination and gait testing was limited by mental status. Arm and leg reflexes were within normal limits and symmetric. Alvarez's sign was absent. Plantar responses were flexor. HOLLY FISHER NP December 11, 2018 11:57
[2018-12-11] MEDS: PROPOFOL 100 ML IV SCH ×2 (12:00→23:16)
--- NOTE | 2018-12-11 12:52 | CONS ---
Assessment/Plan Assessment/Plan Hospital Course (Demo Recall) No acute events. Remains intubated. Still on pressors. Looks comfortable Antimicrobials: Cancidas, meropenem Microbiology: Blood culture on admission grew Klebsiella ESBL, repeat blood cul tures negative, left thigh wound culture grew Klebsiella ESBL and Leah albicans Allergy: Zosyn, vancomycin Indwelling: Right upper thigh Davie catheter, left femoral triple-lumen catheter, endotracheal tube, orogastric tube, midline Physical examination: This is a chronically ill-appearing cachectic middle-aged woman who is laying comfortably in bed. Head atraumatic normocephalic. Neck is supple. Chest rise symmetrical. Breath sounds diminished bases. Heart: S1-S2, irreg. Abdomen distended. Bowel sounds hypoactive. Extremities with bilateral edema, cyanotic, multiple ecchymotic areas and bruises, left upper thigh dressing present is Assessment: 1. Sepsis with shock 2. Acute hypoxemic respiratory failure secondary to CHF exacerbation/probable pneumonia 3. Klebsiella ESBL bacteremia likely 2 to #4 4. 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 End-stage renal disease, hemodialysis dependent 6. Atrial fibrillation/PPM 7. Unstageable sacral decubitus 8. History of peritoneal dialysis with peritoneal dialysis still in place 9. Ascites status post paracentesis 3 weeks ago 10. Failure to thrive 11. Progressive thrombocytopenia 12. B mastoiditis and acute sinusitis Plan: Remains unchanged, continue antibiotics indefinitely for infected graft, vent management per pulmonary. Change meropenem to Invanz Consultation Date/Type/Reason Admit Date/Time Nov 21, 2018 at 04:53 Initial Consult Date Type of Consult id Requesting Provider: RIKA STOCK Date/Time of Note DATE: 12/11/18 TIME: 12:51 Exam/Review of Systems Exam Vitals Vital Signs Date Temp Pulse Resp B/P (MAP) Pulse Ox O2 O2 Flow FiO2 Time Delivery Rate 12/11/18 66 08:00 12/11/18 20 100 35 05:56 12/11/18 112/62 05:45 (79) 12/11/18 Mechanical 05:00 Ventilator 12/11/18 97.5 04:00 12/07/18 6.0 12:50 Intake and Output 12/10/18 12/10/18 12/11/18 1515:00 23:00 07:00 IntakeIntake Total 536.85 ml 1519.965 ml 467.69 ml OutputOutput Total 2100 ml BalanceBalance -1563.15 ml 1519.965 ml 467.69 ml Results Result Diagram: 12/11/18 0455 12/11/18 0455 Results 24hrs Laboratory Tests Test 12/10/18 12:58 12/10/18 13:16 12/10/18 13:59 12/10/18 14:14 Bedside Glucose 184 149 120 White Blood Count 6.9 # Red Blood Count 2.10 L Hemoglobin 6.5 *L Hematocrit 21.1 L Mean Corpuscular 100.5 Volume Mean Corpuscular 31.0 Hemoglobin Mean Corpuscular 30.8 L Hemoglobin Concen t Red Cell 18.6 H Distribution Width Platelet Count 24 *L Mean Platelet Volume Immature 1.000 H Granulocytes % Neutrophils % 78.7 H Lymphocytes % 13.8 L Monocytes % 3.9 Eosinophils % 2.2 Basophils % 0.4 Nucleated Red 0.0 Blood Cells % Immature 0.070 H Granulocytes # Neutrophils # 5.4 Lymphocytes # 1.0 Monocytes # 0.3 Eosinophils # 0.2 Basophils # 0.0 Nucleated Red 0.0 Blood Cells # Test 12/10/18 16:20 12/10/18 18:31 12/10/18 19:27 12/10/18 20:38 Bedside Glucose 98 85 83 85 Test 12/10/18 23:03 12/11/18 01:33 12/11/18 03:32 12/11/18 04:55 Bedside Glucose 85 147 138 White Blood Count 5.0 # Red Blood Count 2.55 #L Hemoglobin 7.8 L Hematocrit 23.0 L Mean Corpuscular 90.2 Volume Mean Corpuscular 30.6 Hemoglobin Mean Corpuscular 33.9 Hemoglobin Concen t Red Cell 17.9 H Distribution Width Platelet Count 26 *L Mean Platelet Volume Immature 1.200 H Granulocytes % Neutrophils % Segmented 77 Neutrophils % (Manual) Band Neutrophils 5 H % (Manual) Lymphocytes % Lymphocytes % 18 (Manual) Monocytes % Eosinophils % Basophils % Nucleated Red 0.0 Blood Cells % Immature 0.060 H Granulocytes # Neutrophils # Neutrophils # 3.9 (Manual) Band Neutrophils 0.2 # Lymphocytes 0.9 (Manual) Lymphocytes # Monocytes # Eosinophils # Basophils # Nucleated Red Blood Cells # Platelet Estimate SIG DECREASED Giant Platelets 45 H Poikilocytosis 3+ Anisocytosis 2+ Macrocytosis 2+ Target Cells 1+ Sodium Level 143 Potassium Level 3.9 Chloride Level 110 Carbon Dioxide 24 Level Anion Gap 9 Blood Urea 29 H Nitrogen Creatinine 0.92 Est Glomerular > 60 Filtrat Rate mL/min Glucose Level 125 Calcium Level 8.8 Phosphorus Level 3.4 Magnesium Level 1.9 Test 12/11/18 05:02 12/11/18 05:56 12/11/18 09:30 Lab Scanned BLOOD TRANSFUSIO Report N Bedside Glucose 140 131 Medications Medication Current Medications Ondansetron HCl (Zofran Inj) 4 mg Q6H PRN IV NAUSEA AND/OR VOMITING Last administered on 12/11/18at 06:53; Admin Dose 4 MG; Start 11/21/18 at 05:30 Albuterol/ Ipratropium (Duoneb) 3 ml Q2H RESP THERAPY PRN NEB SHORTNESS OF BREATH; Start 11/21/18 at 05:30 Meropenem/Sodium Chloride 50 ml @ 100 mls/hr Q12 IVPB Last administered on 12/11/18at 10:51; Admin Dose 100 MLS/HR; Start 11/21/18 at 21:00 Caspofungin 50 mg/ Sodium Chloride 250 ml @ 250 mls/hr Q24H IVPB Last administered on 12/10/18at 13:54; Admin Dose 250 MLS/HR; Start 11/24/18 at 13:00 Miscellaneous Information 1 ea NOTE XX ; Start 11/23/18 at 13:30 Glucose (Glutose) 15 gm Q15M PRN PO DECREASED GLUCOSE; Start 11/23/18 at 13:30 Glucose (Glutose) 22.5 gm Q15M PRN PO DECREASED GLUCOSE; Start 11/23/18 at 13:30 Dextrose (D50w Syringe) 25 ml Q15M PRN IV DECREASED GLUCOSE Last administered on 12/09/18at 13:59; Admin Dose 25 ML; Start 11/23/18 at 13:30 Dextrose (D50w Syringe) 50 ml Q15M PRN IV DECREASED GLUCOSE Last administered on 12/10/18at 13:14; Admin Dose 50 ML; Start 11/23/18 at 13:30 Glucagon (Glucagen) 1 mg Q15M PRN IM DECREASED GLUCOSE; Start 11/23/18 at 13:30 Glucose (Glutose) 15 gm Q15M PRN BUCCAL DECREASED GLUCOSE; Start 11/23/18 at 13:30 Propofol 100 ml @ 1.59 mls/hr Q12H IV Last administered on 12/05/18 12:00; Admin Dose 0 MLS/HR; Start 11/24/18 at 00:00 Phenylephrine HCl 80 mg/Dextrose 250 ml @ 18.75 mls/ hr TITRATE IV ; Start 11/24/18 at 00:00 Alteplase, Recombinant (Cathflo (Activase)) 2 mg MAY REPEAT X1 PRN CATHETER IF CATHETER REMAINS OCCULUDED Last administered on 12/02/18 15:47; Admin Dose 2 MG; Start 11/26/18 at 03:00 Albumin Human 100 ml @ 100 mls/hr DURING DIALYSIS PRN IV HYPOTENSION DURING HD Last administered on 12/10/18 08:53; Admin Dose 100 MLS/HR; Start 11/26/18 at 14:00 Levothyroxine Sodium (Synthroid) 75 mcg BEFORE BREAKFAST NGT Last administered on 12/11/18 06:47; Admin Dose 75 MCG; Start 11/29/18 at 07:00 Midazolam HCl 50 ml @ 1 mls/hr TITRATE IV Last administered on 11/30/18 05:15; Admin Dose 50 MLS/HR; Start 11/29/18 at 09:00 Sodium Chloride 154 meq/Dextrose 1,038.5 ml @ 40 mls/hr Q24H IV Last administered on 12/11/18 03:30; Admin Dose 70 MLS/HR; Start 11/30/18 at 10:00 Collagenase (Santyl) 1 applic DAILY TOP Last administered on 12/11/18 10:52; Admin Dose 1 APPLIC; Start 12/01/18 at 16:30 Amiodarone HCl (Cordarone) 200 mg BID NGT Last administered on 12/11/18 10:51; Admin Dose 200 MG; Start 12/03/18 at 21:00 Acetaminophen (Tylenol Liquid) 650 mg Q6H PRN NGT PAIN LEVEL 1-3 OR FEVER; Start 12/06/18 at 09:00 Famotidine (Pepcid) 20 mg DAILY NGT Last administered on 12/11/18 10:51; Admin Dose 20 MG; Start 12/06/18 at 09:00 Folic Acid (Folic Acid) 1 mg DAILY NGT Last administered on 12/11/18 10:51; Admin Dose 1 MG; Start 12/06/18 at 09:00 Midodrine (Proamatine) 5 mg TID@09,13,17 GTB Last administered on 12/11/18 10:51; Admin Dose 5 MG; Start 12/07/18 at 09:00 Norepinephrine 32 mg/Dextrose 250 ml @ 0.47 mls/hr TITRATE IV Last administered on 12/10/18 14:54; Admin Dose 4.69 MLS/HR; Start 12/08/18 at 09:00 Epoetin Margarito-epbx (RETACRIT(esrd)) 10,000 unit MoWeFr@1700 SC ; Start 12/11/18 at 17:00 Eye Lubricant (Artificial Tears Oph) 2 drop QID BOTH EYES Last administered on 12/11/18at 10:53; Admin Dose 2 DROP; Start 12/10/18 at 09:00 Methylprednisolone Sodium Succinate (Solu-Medrol) 40 mg Q6 IV Last administered on 12/11/18 05:53; Admin Dose 40 MG; Start 12/10/18 at 18:00 Diagnostic Test (Pha) (Accu-Chek) 1 ea Q4H XX ; Start 12/11/18 at 13:00 KELSIE ELY NP December 11, 2018 12:52
[2018-12-11] MEDS: CASPOFUNGIN 50 MG in SOD CHLORIDE 0.9% 250 ML IVPB SCH (14:42)
--- NOTE | 2018-12-11 14:55 | PN ---
Date/Time of Note Date/Time of Note DATE: 12/11/18 TIME: 14:53 Assessment/Plan VTE Prophylaxis Risk score (from Nsg)>0 risk: 13 SCD applied (from Nsg): Yes Pharmacological prophylaxis: heparin Lines/Catheters IV Catheter Type (from Nrsg): Mid Line Central line still needed: Yes Urinary Cath still in place: No Assessment/Plan Hospital Course Intubated, apears comfortable Chronically ill appearing Lungs clear Distended belly, firm masses, G tube in place Mild peripheral edema present LUE wound wrapped 58 yo female with ESRD, cirrohsihs, DMII presents with hypoglycemia, leg infection. Suffered cardiac and respiratory arrest, now intubated Acute respiratory failure: - MV per pulm - Will need trach - s/p G tube Septic shock: - vasoprossors to MAP > 65 - Antibiotics per ID Hypoglycemia: No history of diabetes and patient not on any insulin or sulfonylurea or any other diabetic medication - Continue IV dextrose and tube feeds Left lower extremity wound - Antibiotics per ID -Venous study was negative for DVT A Fib: - Amiodarone ESRD with fluid overload - HD per nephrology Hypothyroidism: Continue Synthroid History of pacemaker: No acute issue Prophylaxis: SCDs DC planning: Poor prognosis. Continue goals of care discussions with family. So far unwilling to consider withdrawal of care. Very upset to be asked about it and don't want us to bring it up again Result Diagram: 12/11/18 0455 12/11/18 0455 Results 24hrs Laboratory Tests Test 12/10/18 16:20 12/10/18 18:31 12/10/18 19:27 12/10/18 20:38 Bedside Glucose 98 85 83 85 Test 12/10/18 23:03 12/11/18 01:33 12/11/18 03:32 12/11/18 04:55 Bedside Glucose 85 147 138 White Blood Count 5.0 # Red Blood Count 2.55 #L Hemoglobin 7.8 L Hematocrit 23.0 L Mean Corpuscular 90.2 Volume Mean Corpuscular 30.6 Hemoglobin Mean Corpuscular 33.9 Hemoglobin Concen t Red Cell 17.9 H Distribution Width Platelet Count 26 *L Mean Platelet Volume Immature 1.200 H Granulocytes % Neutrophils % Segmented 77 Neutrophils % (Manual) Band Neutrophils 5 H % (Manual) Lymphocytes % Lymphocytes % 18 (Manual) Monocytes % Eosinophils % Basophils % Nucleated Red 0.0 Blood Cells % Immature 0.060 H Granulocytes # Neutrophils # Neutrophils # 3.9 (Manual) Band Neutrophils 0.2 # Lymphocytes 0.9 (Manual) Lymphocytes # Monocytes # Eosinophils # Basophils # Nucleated Red Blood Cells # Platelet Estimate SIG DECREASED Giant Platelets 45 H Poikilocytosis 3+ Anisocytosis 2+ Macrocytosis 2+ Target Cells 1+ Sodium Level 143 Potassium Level 3.9 Chloride Level 110 Carbon Dioxide 24 Level Anion Gap 9 Blood Urea 29 H Nitrogen Creatinine 0.92 Est Glomerular > 60 Filtrat Rate mL/min Glucose Level 125 Calcium Level 8.8 Phosphorus Level 3.4 Magnesium Level 1.9 Test 12/11/18 05:02 12/11/18 05:56 12/11/18 09:30 12/11/18 14:40 Lab Scanned BLOOD TRANSFUSIO Report N Bedside Glucose 140 131 169 Subjective 24 Hr Interval Summary Free Text/Dictation Tracheostomy held given thrombocytopenia. Now planned for Friday No change to status Remains intubated on pressors Exam/Review of Systems Exam Vitals Vital Signs Date Temp Pulse Resp B/P (MAP) Pulse Ox O2 O2 Flow FiO2 Time Delivery Rate 12/11/18 73 12:00 12/11/18 20 100 35 05:56 12/11/18 112/62 05:45 (79) 12/11/18 Mechanical 05:00 Ventilator 12/11/18 97.5 04:00 12/07/18 6.0 12:50 Intake and Output 12/10/18 12/10/18 12/11/18 1515:00 23:00 07:00 IntakeIntake Total 536.85 ml 1519.965 ml 467.69 ml OutputOutput Total 2100 ml BalanceBalance -1563.15 ml 1519.965 ml 467.69 ml Results Results 24hrs Laboratory Tests Test 12/10/18 16:20 12/10/18 18:31 12/10/18 19:27 12/10/18 20:38 Bedside Glucose 98 85 83 85 Test 12/10/18 23:03 12/11/18 01:33 12/11/18 03:32 12/11/18 04:55 Bedside Glucose 85 147 138 White Blood Count 5.0 # Red Blood Count 2.55 #L Hemoglobin 7.8 L Hematocrit 23.0 L Mean Corpuscular 90.2 Volume Mean Corpuscular 30.6 Hemoglobin Mean Corpuscular 33.9 Hemoglobin Concen t Red Cell 17.9 H Distribution Width Platelet Count 26 *L Mean Platelet Volume Immature 1.200 H Granulocytes % Neutrophils % Segmented 77 Neutrophils % (Manual) Band Neutrophils 5 H % (Manual) Lymphocytes % Lymphocytes % 18 (Manual) Monocytes % Eosinophils % Basophils % Nucleated Red 0.0 Blood Cells % Immature 0.060 H Granulocytes # Neutrophils # Neutrophils # 3.9 (Manual) Band Neutrophils 0.2 # Lymphocytes 0.9 (Manual) Lymphocytes # Monocytes # Eosinophils # Basophils # Nucleated Red Blood Cells # Platelet Estimate SIG DECREASED Giant Platelets 45 H Poikilocytosis 3+ Anisocytosis 2+ Macrocytosis 2+ Target Cells 1+ Sodium Level 143 Potassium Level 3.9 Chloride Level 110 Carbon Dioxide 24 Level Anion Gap 9 Blood Urea 29 H Nitrogen Creatinine 0.92 Est Glomerular > 60 Filtrat Rate mL/min Glucose Level 125 Calcium Level 8.8 Phosphorus Level 3.4 Magnesium Level 1.9 Test 12/11/18 05:02 12/11/18 05:56 12/11/18 09:30 12/11/18 14:40 Lab Scanned BLOOD TRANSFUSIO Report N Bedside Glucose 140 131 169 Medications Medication Current Medications Ondansetron HCl (Zofran Inj) 4 mg Q6H PRN IV NAUSEA AND/OR VOMITING Last administered on 12/11/18at 06:53; Admin Dose 4 MG; Start 11/21/18 at 05:30 Albuterol/ Ipratropium (Duoneb) 3 ml Q2H RESP THERAPY PRN NEB SHORTNESS OF BREATH; Start 11/21/18 at 05:30 Caspofungin 50 mg/ Sodium Chloride 250 ml @ 250 mls/hr Q24H IVPB Last administered on 12/11/18at 14:42; Admin Dose 250 MLS/HR; Start 11/24/18 at 13:00 Miscellaneous Information 1 ea NOTE XX ; Start 11/23/18 at 13:30 Glucose (Glutose) 15 gm Q15M PRN PO DECREASED GLUCOSE; Start 11/23/18 at 13:30 Glucose (Glutose) 22.5 gm Q15M PRN PO DECREASED GLUCOSE; Start 11/23/18 at 13:30 Dextrose (D50w Syringe) 25 ml Q15M PRN IV DECREASED GLUCOSE Last administered on 12/09/18 13:59; Admin Dose 25 ML; Start 11/23/18 at 13:30 Dextrose (D50w Syringe) 50 ml Q15M PRN IV DECREASED GLUCOSE Last administered on 12/10/18 13:14; Admin Dose 50 ML; Start 11/23/18 at 13:30 Glucagon (Glucagen) 1 mg Q15M PRN IM DECREASED GLUCOSE; Start 11/23/18 at 13:30 Glucose (Glutose) 15 gm Q15M PRN BUCCAL DECREASED GLUCOSE; Start 11/23/18 at 13:30 Propofol 100 ml @ 1.59 mls/hr Q12H IV Last administered on 12/05/18 12:00; Admin Dose 0 MLS/HR; Start 11/24/18 at 00:00 Phenylephrine HCl 80 mg/Dextrose 250 ml @ 18.75 mls/ hr TITRATE IV ; Start 11/24/18 at 00:00 Alteplase, Recombinant (Cathflo (Activase)) 2 mg MAY REPEAT X1 PRN CATHETER IF CATHETER REMAINS OCCULUDED Last administered on 12/02/18 15:47; Admin Dose 2 MG; Start 11/26/18 at 03:00 Albumin Human 100 ml @ 100 mls/hr DURING DIALYSIS PRN IV HYPOTENSION DURING HD Last administered on 12/10/18 08:53; Admin Dose 100 MLS/HR; Start 11/26/18 at 14:00 Levothyroxine Sodium (Synthroid) 75 mcg BEFORE BREAKFAST NGT Last administered on 12/11/18 06:47; Admin Dose 75 MCG; Start 11/29/18 at 07:00 Midazolam HCl 50 ml @ 1 mls/hr TITRATE IV Last administered on 11/30/18 05:15; Admin Dose 50 MLS/HR; Start 11/29/18 at 09:00 Sodium Chloride 154 meq/Dextrose 1,038.5 ml @ 40 mls/hr Q24H IV Last administered on 12/11/18 03:30; Admin Dose 70 MLS/HR; Start 11/30/18 at 10:00 Collagenase (Santyl) 1 applic DAILY TOP Last administered on 12/11/18 10:52; Admin Dose 1 APPLIC; Start 12/01/18 at 16:30 Amiodarone HCl (Cordarone) 200 mg BID NGT Last administered on 12/11/18 10:51; Admin Dose 200 MG; Start 12/03/18 at 21:00 Acetaminophen (Tylenol Liquid) 650 mg Q6H PRN NGT PAIN LEVEL 1-3 OR FEVER; Start 12/06/18 at 09:00 Famotidine (Pepcid) 20 mg DAILY NGT Last administered on 12/11/18 10:51; Admin Dose 20 MG; Start 12/06/18 at 09:00 Folic Acid (Folic Acid) 1 mg DAILY NGT Last administered on 12/11/18 10:51; Admin Dose 1 MG; Start 12/06/18 at 09:00 Midodrine (Proamatine) 5 mg TID@,13,17 GTB Last administered on 12/11/18 14:41; Admin Dose 5 MG; Start 12/07/18 at 09:00 Norepinephrine 32 mg/Dextrose 250 ml @ 0.47 mls/hr TITRATE IV Last administered on 12/10/18 14:54; Admin Dose 4.69 MLS/HR; Start 12/08/18 at 09:00 Epoetin Margarito-epbx (RETACRIT(esrd)) 10,000 unit MoWeFr@1700 SC ; Start 12/11/18 at 17:00 Eye Lubricant (Artificial Tears Oph) 2 drop QID BOTH EYES Last administered on 12/11/18 14:41; Admin Dose 2 DROP; Start 12/10/18 at 09:00 Methylprednisolone Sodium Succinate (Solu-Medrol) 40 mg Q6 IV Last administered on 12/11/18 14:41; Admin Dose 40 MG; Start 12/10/18 at 18:00 Diagnostic Test (Pha) (Accu-Chek) 1 ea Q4H XX ; Start 12/11/18 at 13:00 Ertapenem 1 gm/ Sodium Chloride 100 ml @ 200 mls/hr Q24H IVPB ; Start 12/11/18 at 14:00 JOSLYN LANDRUM MD December 11, 2018 14:55
[2018-12-11] MEDS: ERTAPENEM SODIUM 1 GM in SOD CHLORIDE 0.9% 100 ML IVPB SCH (16:18)
[2018-12-11] MEDS: EPOETIN ALFA-EPBX (ESRD) 10,000 UNIT/ML VIAL SC SCH (18:42)
[2018-12-12] VITALS (107 sets, daily range): BP systolic 58–208; BP diastolic 44–91; PULSE 58–100; RESP 14–28
[2018-12-12] MEDS: METHYLPREDNISOLONE 40 MG INJ IV SCH ×4 (00:35→18:36)
[2018-12-12] MEDS: ACCU-CHEK XX SCH ×6 (01:51→21:18)
[2018-12-12] MEDS: LEVOTHYROXINE 75 MCG TAB NGT SCH (06:07)
--- NOTE | 2018-12-12 06:46 | PN ---
Date/Time of Note Date/Time of Note DATE: 12/12/18 TIME: 06:44 Assessment/Plan VTE Prophylaxis Risk score (from Ns)>0 risk: 7 SCD applied (from Ns): No SCD contraindicated: other Pharmacological prophylaxis: other Lines/Catheters IV C[facility] Type [facility]from [facility]): Mid Line Urinary Cath still in place: No Assessment/Plan Hospital Course renal follow up SUBJECTIVE: The patient remains critically ill on pressor support. The patient had hemodialysis 2 days ago, anticipate dialysis again today. The patient is pending trach placement once platelets have improved. No other events noted. vent settings were reviewed d/w Dr Casanova OBJECTIVE: HEENT: Head is normocephalic. NECK: Supple. HEART: Tachycardic. LUNGS: Show diminished breath sounds at the base. ABDOMEN: Soft, nontender to palpation. Positive PD catheter. EXTREMITIES: Negative for clubbing, cyanosis. Positive edema, diffuse anasarca. DERMATOLOGIC: No rashes. MUSCULOSKELETAL: No joint effusion. NEUROLOGIC: No change in exam. MEDICATIONS: Reviewed. LABORATORY DATA: From 12/11/2018 was reviewed. IMAGING STUDIES: Reviewed. MICROBIOLOGY: Cultures have been reviewed. ASSESSMENT AND PLAN: 1. End-stage renal disease. continue HD today during which time she will be seen again as she becomes hypotensive during treatments 2. Access. The patient has Davie catheter in the left femoral vein. Pending Davie catheter exchange per CT surgery. Anticipate exchange once platelets have improved. 3. Volume overload with diffuse anasarca. Continue ultrafiltration with he modialysis if hemodynamically stable. 4. Septic shock secondary to pneumonia. Continue pressor support, wean off as tolerated. Continue broad-spectrum antibiotics. 5. Anemia. Continue to monitor hemoglobin and hematocrit levels. Continue Epogen. The patient is status post blood transfusion. 6. Mineral bone disorder. Monitor calcium and phosphorus levels. 7. Ventilator-dependent respiratory failure. Vent settings and ABG was reviewed. Continue to monitor. 8. Acute encephalopathy, etiology is toxic metabolic. 9. Ascites, status post paracentesis. 10. Hypothyroidism. Continue Synthroid. 11. Dysphagia, status post PEG. Continue tube feeding. 12. Arrhythmia. Continue amiodarone. 13. Hypoglycemia, improving. We will deescalate dextrose drip. 14. Lower extremity wounds. Continue wound care. 15. Status post cardiopulmonary arrest. Result Diagram: 12/11/18 0455 12/11/18 0455 Results 24hrs Laboratory Tests Test 12/11/18 09:30 12/11/18 14:40 12/11/18 18:35 12/11/18 22:50 Bedside Glucose 131 169 180 176 Test 12/12/18 01:29 12/12/18 06:10 Bedside Glucose 192 147 Exam/Review of Systems Exam Vitals Vital Signs Date Temp Pulse Resp B/P (MAP) Pulse Ox O2 O2 Flow FiO2 Time Delivery Rate 12/12/18 58 20 113/62 100 06:15 (79) 12/12/18 Mechanical 06:00 Ventilator 12/12/18 30 05:45 12/12/18 97.8 04:00 Intake and Output 12/11/18 12/11/18 12/12/18 1515:00 23:00 07:00 IntakeIntake Total 921.28 ml 992.37 ml 520.64 ml OutputOutput Total 250 ml 200 ml BalanceBalance 921.28 ml 742.37 ml 320.64 ml Results Results 24hrs Laboratory Tests Test 12/11/18 09:30 12/11/18 14:40 12/11/18 18:35 12/11/18 22:50 Bedside Glucose 131 169 180 176 Test 12/12/18 01:29 12/12/18 06:10 Bedside Glucose 192 147 Medications Medication Current Medications Ondansetron HCl (Zofran Inj) 4 mg Q6H PRN IV NAUSEA AND/OR VOMITING Last administered on 12/11/18at 06:53; Admin Dose 4 MG; Start 11/21/18 at 05:30 Albuterol/ Ipratropium (Duoneb) 3 ml Q2H RESP THERAPY PRN NEB SHORTNESS OF BREATH; Start 11/21/18 at 05:30 Caspofungin 50 mg/ Sodium Chloride 250 ml @ 250 mls/hr Q24H IVPB Last administered on 12/11/18at 14:42; Admin Dose 250 MLS/HR; Start 11/24/18 at 13:00 Miscellaneous Information 1 ea NOTE XX ; Start 11/23/18 at 13:30 Glucose (Glutose) 15 gm Q15M PRN PO DECREASED GLUCOSE; Start 11/23/18 at 13:30 Glucose (Glutose) 22.5 gm Q15M PRN PO DECREASED GLUCOSE; Start 11/23/18 at 13:30 Dextrose (D50w Syringe) 25 ml Q15M PRN IV DECREASED GLUCOSE Last administered on 12/09/18 13:59; Admin Dose 25 ML; Start 11/23/18 at 13:30 Dextrose (D50w Syringe) 50 ml Q15M PRN IV DECREASED GLUCOSE Last administered on 12/10/18 13:14; Admin Dose 50 ML; Start 11/23/18 at 13:30 Glucagon (Glucagen) 1 mg Q15M PRN IM DECREASED GLUCOSE; Start 11/23/18 at 13:30 Glucose (Glutose) 15 gm Q15M PRN BUCCAL DECREASED GLUCOSE; Start 11/23/18 at 13:30 Propofol 100 ml @ 1.59 mls/hr Q12H IV Last administered on 12/05/18 12:00; Admin Dose 0 MLS/HR; Start 11/24/18 at 00:00 Phenylephrine HCl 80 mg/Dextrose 250 ml @ 18.75 mls/ hr TITRATE IV ; Start 11/24/18 at 00:00 Alteplase, Recombinant (Cathflo (Activase)) 2 mg MAY REPEAT X1 PRN CATHETER IF CATHETER REMAINS OCCULUDED Last administered on 12/02/18 15:47; Admin Dose 2 MG; Start 11/26/18 at 03:00 Albumin Human 100 ml @ 100 mls/hr DURING DIALYSIS PRN IV HYPOTENSION DURING HD Last administered on 12/10/18 08:53; Admin Dose 100 MLS/HR; Start 11/26/18 at 14:00 Levothyroxine Sodium (Synthroid) 75 mcg BEFORE BREAKFAST NGT Last administered on 12/12/18 06:07; Admin Dose 75 MCG; Start 11/29/18 at 07:00 Midazolam HCl 50 ml @ 1 mls/hr TITRATE IV Last administered on 11/30/18 05:15; Admin Dose 50 MLS/HR; Start 11/29/18 at 09:00 Sodium Chloride 154 meq/Dextrose 1,038.5 ml @ 40 mls/hr Q24H IV Last administered on 12/11/18 16:17; Admin Dose 40 MLS/HR; Start 11/30/18 at 10:00 Collagenase (Santyl) 1 applic DAILY TOP Last administered on 12/11/18 10:52; Admin Dose 1 APPLIC; Start 12/01/18 at 16:30 Amiodarone HCl (Cordarone) 200 mg BID NGT Last administered on 12/11/18 21:15; Admin Dose 200 MG; Start 12/03/18 at 21:00 Acetaminophen (Tylenol Liquid) 650 mg Q6H PRN NGT PAIN LEVEL 1-3 OR FEVER; Start 12/06/18 at 09:00 Famotidine (Pepcid) 20 mg DAILY NGT Last administered on 12/11/18 10:51; Admin Dose 20 MG; Start 12/06/18 at 09:00 Folic Acid (Folic Acid) 1 mg DAILY NGT Last administered on 12/11/18 10:51; Admin Dose 1 MG; Start 12/06/18 at 09:00 Midodrine (Proamatine) 5 mg TID@09,13,17 GTB Last administered on 12/11/18 18:39; Admin Dose 5 MG; Start 12/07/18 at 09:00 Norepinephrine 32 mg/Dextrose 250 ml @ 0.47 mls/hr TITRATE IV Last a dministered on 12/10/18 14:54; Admin Dose 4.69 MLS/HR; Start 12/08/18 at 09:00 Epoetin Margarito-epbx (RETACRIT(esrd)) 10,000 unit MoWeFr@1700 SC Last administered on 12/11/18 18:42; Admin Dose 10,000 UNIT; Start 12/11/18 at 17:00 Eye Lubricant (Artificial Tears Oph) 2 drop QID BOTH EYES Last administered on 12/11/18 21:15; Admin Dose 2 DROP; Start 12/10/18 at 09:00 Methylprednisolone Sodium Succinate (Solu-Medrol) 40 mg Q6 IV Last administered on 12/12/18 06:07; Admin Dose 40 MG; Start 12/10/18 at 18:00 Diagnostic Test (Pha) (Accu-Chek) 1 ea Q4H XX Last administered on 12/12/18 05:00; Admin Dose 1 EA; Start 12/11/18 at 13:00 Ertapenem 1 gm/ Sodium Chloride 100 ml @ 200 mls/hr Q24H IVPB Last ad ministered on 12/11/18 16:18; Admin Dose 200 MLS/HR; Start 12/11/18 at 14:00 DAVID CASTILLO DO December 12, 2018 06:46
--- NOTE | 2018-12-12 09:41 | CONS ---
Assessment/Plan Assessment/Plan Hospital Course 58 yo F with hx of afib, ESRD on peritoneal dialysis, and other comorbidities... who initially presented with ams in the context of hypotension and severe hypoglycemia. Now s/p PEA arrest on 11/24; Targeted temperature therapy was deferred.. She was found to be protractedly encephalopathic, for which neurology is consulted. The clinical picture suggests an acute toxic-metabolic (?on chronic) encephalopathy...which has shown some improvement clinically.. HCT is reassuringly without obvious acute intracranial pathology. CXR + PNA Na 127, phos 6.9 ammonia, TSH, B12 wnl plt 24 P: Cont medical management per primary [place] as able Cont to limit sedating medications where possible PT/OT when able Will sign off for now; please call w/ ?s Consultation Date/Type/Reason Admit Date/Time Nov 21, 2018 at 04:53 Type of Consult Neurology Reason for Consultation ams Requesting Provider: RIKA STOCK Date/Time of Note DATE: 12/12/18 TIME: 09:39 24 HR Interval Summary Free Text/Dictation Continues icu care Exam Vital Signs Vitals Vital Signs Date Temp Pulse Resp B/P (MAP) Pulse Ox O2 O2 Flow FiO2 Time Delivery Rate 12/12/18 64 08:00 12/12/18 20 114/66 100 06:45 (82) 12/12/18 Mechanical 06:00 Ventilator 12/12/18 30 05:45 12/12/18 97.8 04:00 Intake and Output 12/11/18 12/11/18 12/12/18 1414:59 22:59 06:59 IntakeIntake Total 886.28 ml 1022.84 ml 637.52 ml OutputOutput Total 250 ml 200 ml BalanceBalance 886.28 ml 772.84 ml 437.52 ml Exam PE: Gen Appearance: No Apparent Distress HEENT: Intubated Cardiovascular: Regular rate Abdomen: Soft Extremities: Dry NE: The patient was alert.. Cranial nerve examination was limited by critical illness. Pupils were equal and reactive to light. There was no afferent pupillary defect. Funduscopic examination was limited. Face was grossly symmetric, w/ present corneal and cough reflexes. Tone was normal. Muscle bulk was normal. I did not see fasciculations. The patient withdrew to noxious stimulation x 4. Coordination and gait testing was limited by mental status. Arm and leg reflexes were within normal limits and symmetric. Alvarez's sign was absent. Plantar responses were flexor. LIANET LOVE December 12, 2018 09:41
[2018-12-12] MEDS: MIDODRINE 5 MG TAB GTB SCH ×3 (09:45→18:36)
[2018-12-12] MEDS: ARTIFICIAL TEARS 15 ML OPH BOTH EYES SCH ×4 (09:45→21:18)
[2018-12-12] MEDS: AMIODARONE 200 MG TAB NGT SCH ×2 (09:46→21:18)
[2018-12-12] MEDS: FAMOTIDINE 20 MG TAB NGT SCH (09:46)
[2018-12-12] MEDS: BALSAM PERU/CASTOR OIL 60 GM TUBE TOP SCH ×2 (09:46→21:18)
[2018-12-12] MEDS: COLLAGENASE 5 GM (UD JAR) TOP SCH (09:46)
[2018-12-12] MEDS: FOLIC ACID 1 MG TAB NGT SCH (09:46)
[2018-12-12] MEDS: NORepinephrine 32 MG in DEXTROSE 5% 218 ML IV SCH (09:48)
[2018-12-12] MEDS: PROPOFOL 100 ML IV SCH (12:00)
--- NOTE | 2018-12-12 13:02 | CONS ---
Consult Date/Type/Reason Admit Date/Time Nov 21, 2018 at 04:53 Initial Consult Date Type of Consultation: Pulm/CC Requesting Provider: RIKA STOCK Date/Time of Note DATE: 12/12/18 TIME: 13:00 Subjective Events noted. Remains minimally responsive on the vent. Objective Vitals Vital Signs Date Temp Pulse Resp B/P (MAP) Pulse Ox O2 O2 Flow FiO2 Time Delivery Rate 12/12/18 64 12:00 12/12/18 20 100 30 11:10 12/12/18 114/66 06:45 (82) 12/12/18 Mechanical 06:00 Ventilator 12/12/18 97.8 04:00 Intake and Output 12/11/18 12/11/18 12/12/18 1515:00 23:00 07:00 IntakeIntake Total 921.28 ml 992.37 ml 601.58 ml OutputOutput Total 250 ml 200 ml BalanceBalance 921.28 ml 742.37 ml 401.58 ml Exam HEENT: Neck supple; no JVD; no LAD CVS: RRR, S1 and S2 CHEST: Clear ABD: Soft, NT, + BS EXT: + cachexia NEURO: Diffusely weak with proximal > distal motor weakness Results/Medications Result Diagram: 12/11/18 0455 12/11/18 0455 Results 24 hrs Laboratory Tests Test 12/11/18 14:40 12/11/18 18:35 12/11/18 22:50 12/12/18 01:29 Bedside Glucose 169 180 176 192 Test 12/12/18 06:10 12/12/18 09:42 Bedside Glucose 147 176 Home Meds Reported Medications Folic Acid* (Folic Acid*) 1 Mg Tablet, 1 MG PO DAILY, TAB 08/10/18 Amiodarone Hcl* (Amiodarone Hcl*) 200 Mg Tablet, 200 MG PO BID, #60 TAB 08/10/18 Pantoprazole* (Protonix*) 40 Mg Tablet.dr, 40 MG PO DAILY, TAB 08/10/18 Multivit/Ca Carb/B Cmplx/Fa* (Iram-Xiomara*) 1 Tab Tab, 1 TAB PO DAILY, TAB 08/10/18 Levothyroxine Sodium* (Levoxyl*) 75 Mcg Tablet, 75 MCG PO BEFORE BREAKFAST, #30 TAB 08/10/18 Medications Current Medications Ondansetron HCl (Zofran Inj) 4 mg Q6H PRN IV NAUSEA AND/OR VOMITING Last administered on 12/11/18 06:53; Admin Dose 4 MG; Start 11/21/18 at 05:30 Albuterol/ Ipratropium (Duoneb) 3 ml Q2H RESP THERAPY PRN NEB SHORTNESS OF BREATH; Start 11/21/18 at 05:30 Caspofungin 50 mg/ Sodium Chloride 250 ml @ 250 mls/hr Q24H IVPB Last admini stered on 12/11/18at 14:42; Admin Dose 250 MLS/HR; Start 11/24/18 at 13:00 Miscellaneous Information 1 ea NOTE XX ; Start 11/23/18 at 13:30 Glucose (Glutose) 15 gm Q15M PRN PO DECREASED GLUCOSE; Start 11/23/18 at 13:30 Glucose (Glutose) 22.5 gm Q15M PRN PO DECREASED GLUCOSE; Start 11/23/18 at 13:30 Dextrose (D50w Syringe) 25 ml Q15M PRN IV DECREASED GLUCOSE Last administered on 12/09/18at 13:59; Admin Dose 25 ML; Start 11/23/18 at 13:30 Dextrose (D50w Syringe) 50 ml Q15M PRN IV DECREASED GLUCOSE Last administered on 12/10/18 13:14; Admin Dose 50 ML; Start 11/23/18 at 13:30 Glucagon (Glucagen) 1 mg Q15M PRN IM DECREASED GLUCOSE; Start 11/23/18 at 13:30 Glucose (Glutose) 15 gm Q15M PRN BUCCAL DECREASED GLUCOSE; Start 11/23/18 at 13:30 Propofol 100 ml @ 1.59 mls/hr Q12H IV Last administered on 12/05/18 12:00; Admin Dose 0 MLS/HR; Start 11/24/18 at 00:00 Phenylephrine HCl 80 mg/Dextrose 250 ml @ 18.75 mls/ hr TITRATE IV ; Start 11/24/18 at 00:00 Alteplase, Recombinant (Cathflo (Activase)) 2 mg MAY REPEAT X1 PRN CATHETER IF CATHETER REMAINS OCCULUDED Last administered on 12/02/18at 15:47; Admin Dose 2 MG; Start 11/26/18 at 03:00 Albumin Human 100 ml @ 100 mls/hr DURING DIALYSIS PRN IV HYPOTENSION DURING HD Last administered on 12/10/18 08:53; Admin Dose 100 MLS/HR; Start 11/26/18 at 14:00 Levothyroxine Sodium (Synthroid) 75 mcg BEFORE BREAKFAST NGT Last administered on 12/12/18 06:07; Admin Dose 75 MCG; Start 11/29/18 at 07:00 Midazolam HCl 50 ml @ 1 mls/hr TITRATE IV Last administered on 11/30/18 05:15; Admin Dose 50 MLS/HR; Start 11/29/18 at 09:00 Sodium Chloride 154 meq/Dextrose 1,038.5 ml @ 40 mls/hr Q24H IV Last administered on 12/11/18 16:17; Admin Dose 40 MLS/HR; Start 11/30/18 at 10:00; Status Hold Collagenase (Santyl) 1 applic DAILY TOP Last administered on 12/12/18 09:46; Admin Dose 1 APPLIC; Start 12/01/18 at 16:30 Amiodarone HCl (Cordarone) 200 mg BID NGT Last administered on 12/12/18 09:46; Admin Dose 200 MG; Start 12/03/18 at 21:00 Acetaminophen (Tylenol Liquid) 650 mg Q6H PRN NGT PAIN LEVEL 1-3 OR FEVER; Start 12/06/18 at 09:00 Famotidine (Pepcid) 20 mg DAILY NGT Last administered on 12/12/18 09:46; Admin Dose 20 MG; Start 12/06/18 at 09:00 Folic Acid (Folic Acid) 1 mg DAILY NGT Last administered on 12/12/18 09:46; Admin Dose 1 MG; Start 12/06/18 at 09:00 Midodrine (Proamatine) 5 mg TID@,13,17 GTB Last administered on 12/12/18 09:45; Admin Dose 5 MG; Start 12/07/18 at 09:00 Norepinephrine 32 mg/Dextrose 250 ml @ 0.47 mls/hr TITRATE IV Last administered on 12/12/18 09:48; Admin Dose 0.47 MLS/HR; Start 12/08/18 at 09:00 Epoetin Margarito-epbx (RETACRIT(esrd)) 10,000 unit MoWeFr@1700 SC Last administered on 12/11/18 18:42; Admin Dose 10,000 UNIT; Start 12/11/18 at 17:00 Eye Lubricant (Artificial Tears Oph) 2 drop QID BOTH EYES Last administered on 12/12/18 09:45; Admin Dose 2 DROP; Start 12/10/18 at 09:00 Methylprednisolone Sodium Succinate (Solu-Medrol) 40 mg Q6 IV Last administered on 12/12/18 06:07; Admin Dose 40 MG; Start 12/10/18 at 18:00 Diagnostic Test (Pha) (Accu-Chek) 1 ea Q4H XX Last administered on 12/12/18 05:00; Admin Dose 1 EA; Start 12/11/18 at 13:00 Ertapenem 1 gm/ Sodium Chloride 100 ml @ 200 mls/hr Q24H IVPB Last administered on 12/11/18 16:18; Admin Dose 200 MLS/HR; Start 12/11/18 at 14:00 Assessment/Plan Assessment/Plan (Daily) IMP: 1. Septic Shock 2. Gram Negative Bacteremia 3. Vent Dependent Resp Failure 4. ESRD on HD 5. Cardiomyopathy 6. Severe Thrombocytopenia 7. Anemia RECS: 1. Will need a trach 2. Minimize sedation 3. Titrate pressors to MAP > 65 mm Hg 4. HD/UF per Renal 5. Abx per ID 40 min cc time SHERON CAPUTO MD December 12, 2018 13:02
--- NOTE | 2018-12-12 13:37 | CONS ---
Assessment/Plan Assessment/Plan Hospital Course (Demo Recall) No acute events overnight patient is awake follows commands comfortable on vent, Levophed at 2 mics per minute. Antimicrobials: Cancidas, Invanz Microbiology: Blood culture on admission grew Klebsiella ESBL, repeat blood cultures negative, left thigh wound culture grew Klebsiella ESBL and Leah albicans Allergy: Zosyn, vancomycin Indwelling: Right upper thigh Davie catheter, left femoral triple-lumen catheter, endotracheal tube, orogastric tube, midline Physical examination: This is a chronically ill-appearing cachectic middle-aged woman who is laying comfortably in bed. Head atraumatic normocephalic. Neck is supple. Chest rise symmetrical. Breath sounds diminished bases. Heart: S1-S2, irreg. Abdomen distended. Bowel sounds hypoactive. Extremities with bilateral edema, cyanotic, multiple ecchymotic areas and bruises, left upper thigh dressing present is Assessment: 1. Sepsis with shock 2. Acute hypoxemic respiratory failure secondary to CHF exacerbation/probable pneumonia 3. Klebsiella ESBL bacteremia likely 2 to #4 4. 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 End-stage renal disease, hemodialysis dependent 6. Atrial fibrillation/PPM 7. Unstageable sacral decubitus 8. History of peritoneal dialysis with peritoneal dialysis still in place 9. Ascites status post paracentesis 3 weeks ago 10. Failure to thrive 11. Progressive thrombocytopenia 12. B mastoiditis and acute sinusitis Plan: Remains unchanged, continue antibiotics indefinitely for infected graft, poss trach Consultation Date/Type/Reason Admit Date/Time Nov 21, 2018 at 04:53 Initial Consult Date Type of Consult id Requesting Provider: RIKA STOCK Date/Time of Note DATE: 12/12/18 TIME: 13:36 Exam/Review of Systems Exam Vitals Vital Signs Date Temp Pulse Resp B/P (MAP) Pulse Ox O2 O2 Flow FiO2 Time Delivery Rate 12/12/18 64 12:00 12/12/18 20 100 30 11:10 12/12/18 114/66 06:45 (82) 12/12/18 Mechanical 06:00 Ventilator 12/12/18 97.8 04:00 Intake and Output 12/11/18 12/11/18 12/12/18 1515:00 23:00 07:00 IntakeIntake Total 921.28 ml 992.37 ml 601.58 ml OutputOutput Total 250 ml 200 ml BalanceBalance 921.28 ml 742.37 ml 401.58 ml Results Result Diagram: 12/11/18 0455 12/11/18 0455 Results 24hrs Laboratory Tests Test 12/11/18 14:40 12/11/18 18:35 12/11/18 22:50 12/12/18 01:29 Bedside Glucose 169 180 176 192 Test 12/12/18 06:10 12/12/18 09:42 Bedside Glucose 147 176 Medications Medication Current Medications Ondansetron HCl (Zofran Inj) 4 mg Q6H PRN IV NAUSEA AND/OR VOMITING Last administered on 12/11/18at 06:53; Admin Dose 4 MG; Start 11/21/18 at 05:30 Albuterol/ Ipratropium (Duoneb) 3 ml Q2H RESP THERAPY PRN NEB SHORTNESS OF BREATH; Start 11/21/18 at 05:30 Caspofungin 50 mg/ Sodium Chloride 250 ml @ 250 mls/hr Q24H IVPB Last administered on 12/11/18at 14:42; Admin Dose 250 MLS/HR; Start 11/24/18 at 13:00 Miscellaneous Information 1 ea NOTE XX ; Start 11/23/18 at 13:30 Glucose (Glutose) 15 gm Q15M PRN PO DECREASED GLUCOSE; Start 11/23/18 at 13:30 Glucose (Glutose) 22.5 gm Q15M PRN PO DECREASED GLUCOSE; Start 11/23/18 at 13:30 Dextrose (D50w Syringe) 25 ml Q15M PRN IV DECREASED GLUCOSE Last administered on 12/09/18at 13:59; Admin Dose 25 ML; Start 11/23/18 at 13:30 Dextrose (D50w Syringe) 50 ml Q15M PRN IV DECREASED GLUCOSE Last administered on 12/10/18at 13:14; Admin Dose 50 ML; Start 11/23/18 at 13:30 Glucagon (Glucagen) 1 mg Q15M PRN IM DECREASED GLUCOSE; Start 11/23/18 at 13:30 Glucose (Glutose) 15 gm Q15M PRN BUCCAL DECREASED GLUCOSE; Start 11/23/18 at 13:30 Propofol 100 ml @ 1.59 mls/hr Q12H IV Last administered on 12/05/18 12:00; Admin Dose 0 MLS/HR; Start 11/24/18 at 00:00 Phenylephrine HCl 80 mg/Dextrose 250 ml @ 18.75 mls/ hr TITRATE IV ; Start 11/24/18 at 00:00 Alteplase, Recombinant (Cathflo (Activase)) 2 mg MAY REPEAT X1 PRN CATHETER IF CATHETER REMAINS OCCULUDED Last administered on 12/02/18 15:47; Admin Dose 2 MG; Start 11/26/18 at 03:00 Albumin Human 100 ml @ 100 mls/hr DURING DIALYSIS PRN IV HYPOTENSION DURING HD Last administered on 12/10/18 08:53; Admin Dose 100 MLS/HR; Start 11/26/18 at 14:00 Levothyroxine Sodium (Synthroid) 75 mcg BEFORE BREAKFAST NGT Last administered on 12/12/18 06:07; Admin Dose 75 MCG; Start 11/29/18 at 07:00 Midazolam HCl 50 ml @ 1 mls/hr TITRATE IV Last administered on 11/30/18 05:15; Admin Dose 50 MLS/HR; Start 11/29/18 at 09:00 Sodium Chloride 154 meq/Dextrose 1,038.5 ml @ 40 mls/hr Q24H IV Last administered on 12/11/18 16:17; Admin Dose 40 MLS/HR; Start 11/30/18 at 10:00; Status Hold Collagenase (Santyl) 1 applic DAILY TOP Last administered on 12/12/18 09:46; Admin Dose 1 APPLIC; Start 12/01/18 at 16:30 Amiodarone HCl (Cordarone) 200 mg BID NGT Last administered on 12/12/18 09:46; Admin Dose 200 MG; Start 12/03/18 at 21:00 Acetaminophen (Tylenol Liquid) 650 mg Q6H PRN NGT PAIN LEVEL 1-3 OR FEVER; Start 12/06/18 at 09:00 Famotidine (Pepcid) 20 mg DAILY NGT Last administered on 12/12/18 09:46; Admin Dose 20 MG; Start 12/06/18 at 09:00 Folic Acid (Folic Acid) 1 mg DAILY NGT Last administered on 12/12/18 09:46; Admin Dose 1 MG; Start 12/06/18 at 09:00 Midodrine (Proamatine) 5 mg TID@09,13,17 GTB Last administered on 12/12/18 09:45; Admin Dose 5 MG; Start 12/07/18 at 09:00 Norepinephrine 32 mg/Dextrose 250 ml @ 0.47 mls/hr TITRATE IV Last administered on 12/12/18 09:48; Admin Dose 0.47 MLS/HR; Start 12/08/18 at 09:00 Epoetin Margarito-epbx (RETACRIT(esrd)) 10,000 unit MoWeFr@1700 SC Last administered on 12/11/18 18:42; Admin Dose 10,000 UNIT; Start 12/11/18 at 17:00 Eye Lubricant (Artificial Tears Oph) 2 drop QID BOTH EYES Last administered on 12/12/18 09:45; Admin Dose 2 DROP; Start 12/10/18 at 09:00 Methylprednisolone Sodium Succinate (Solu-Medrol) 40 mg Q6 IV Last administered on 12/12/18 06:07; Admin Dose 40 MG; Start 12/10/18 at 18:00 Diagnostic Test (Pha) (Accu-Chek) 1 ea Q4H XX Last administered on 12/12/18 05:00; Admin Dose 1 EA; Start 12/11/18 at 13:00 Ertapenem 1 gm/ Sodium Chloride 100 ml @ 200 mls/hr Q24H IVPB Last administered on 12/11/18 16:18; Admin Dose 200 MLS/HR; Start 12/11/18 at 14:00 KELSIE ELY NP December 12, 2018 13:37
[2018-12-12] MEDS: CASPOFUNGIN 50 MG in SOD CHLORIDE 0.9% 250 ML IVPB SCH (13:47)
--- NOTE | 2018-12-12 13:58 | PN ---
Date/Time of Note Date/Time of Note DATE: 12/12/18 TIME: 13:57 Assessment/Plan Lines/Catheters IV Catheter Type (from Nrsg): Mid Line Moon in Place (from Nrsg): No Assessment/Plan Assessment/Plan Resp failure plt count 24 plan for tracheostomy and new HD cath when thrombocytopenia improved Subjective 24 Hr Interval Summary Constitutional: improved Pain Control: mild Exam/Review of Systems Vital Signs Vitals Vital Signs Date Temp Pulse Resp B/P (MAP) Pulse Ox O2 O2 Flow FiO2 Time Delivery Rate 12/12/18 64 12:00 12/12/18 20 100 30 11:10 12/12/18 114/66 06:45 (82) 12/12/18 Mechanical 06:00 Ventilator 12/12/18 97.8 04:00 Intake and Output 12/11/18 12/11/18 12/12/18 1515:00 23:00 07:00 IntakeIntake Total 921.28 ml 992.37 ml 601.58 ml OutputOutput Total 250 ml 200 ml BalanceBalance 921.28 ml 742.37 ml 401.58 ml Exam Eyes: nl conjunctiva, EOMI, nl lids, nl sclera ENMT: nl external ears & nose, nl lips & teeth, nl nasal mucosa & septum, mucosa pink and moist Neck: supple, non-tender Respiratory: clear to auscultation, normal air movement Cardiovascular: regular rate and rhythm, nl pulses Gastrointestinal: soft, nl liver, spleen, non-tender Musculoskeletal: nl extremities to inspection, nl gait and stance Results Result Diagram: 12/11/18 0455 12/11/18 0455 TAE PAN MD December 12, 2018 13:58
--- NOTE | 2018-12-12 15:15 | PN ---
Date/Time of Note Date/Time of Note DATE: 12/12/18 TIME: 15:13 Assessment/Plan VTE Prophylaxis Risk score (from Nsg)>0 risk: 7 SCD applied (from Nsg): Yes Pharmacological prophylaxis: heparin Lines/Catheters IV Catheter Type (from Nrsg): Mid Line Urinary Cath still in place: No Assessment/Plan Hospital Course Intubated, apears comfortable Chronically ill appearing Lungs clear Distended belly, firm masses, G tube in place Mild peripheral edema present LUE wound wrapped 58 yo female with ESRD, cirrohsihs, DMII presents with hypoglycemia, leg infection. Suffered cardiac and respiratory arrest, now intubated Acute respiratory failure: - MV per pulm - Will need trach - s/p G tube Septic shock: - vasoprossors to MAP > 65 - Antibiotics per ID Hypoglycemia: No history of diabetes and patient not on any insulin or sulfonylurea or any other diabetic medication - Continue IV dextrose and tube feeds Left lower extremity wound - Antibiotics per ID -Venous study was negative for DVT A Fib: - Amiodarone ESRD with fluid overload - HD per nephrology Hypothyroidism: Continue Synthroid History of pacemaker: No acute issue Prophylaxis: SCDs DC planning: Poor prognosis. Continue goals of care discussions with family. So far unwilling to consider withdrawal of care. Very upset to be asked about it and don't want us to bring it up again Result Diagram: 12/11/18 0455 12/11/18 0455 Results 24hrs Laboratory Tests Test 12/11/18 18:35 12/11/18 22:50 12/12/18 01:29 12/12/18 06:10 Bedside Glucose 180 176 192 147 Test 12/12/18 09:42 Bedside Glucose 176 Subjective 24 Hr Interval Summary Free Text/Dictation Unchanged Remains inbuated, sedated, low dose vasopresors Exam/Review of Systems Exam Vitals Vital Signs Date Temp Pulse Resp B/P (MAP) Pulse Ox O2 O2 Flow FiO2 Time Delivery Rate 12/12/18 64 12:00 12/12/18 20 100 30 11:10 12/12/18 114/66 06:45 (82) 12/12/18 Mechanical 06:00 Ventilator 12/12/18 97.8 04:00 Intake and Output 12/11/18 12/11/18 12/12/18 1515:00 23:00 07:00 IntakeIntake Total 921.28 ml 992.37 ml 601.58 ml OutputOutput Total 250 ml 200 ml BalanceBalance 921.28 ml 742.37 ml 401.58 ml Results Results 24hrs Laboratory Tests Test 12/11/18 18:35 12/11/18 22:50 12/12/18 01:29 12/12/18 06:10 Bedside Glucose 180 176 192 147 Test 12/12/18 09:42 Bedside Glucose 176 Medications Medication Current Medications Ondansetron HCl (Zofran Inj) 4 mg Q6H PRN IV NAUSEA AND/OR VOMITING Last admini stered on 12/11/18at 06:53; Admin Dose 4 MG; Start 11/21/18 at 05:30 Albuterol/ Ipratropium (Duoneb) 3 ml Q2H RESP THERAPY PRN NEB SHORTNESS OF BREATH; Start 11/21/18 at 05:30 Caspofungin 50 mg/ Sodium Chloride 250 ml @ 250 mls/hr Q24H IVPB Last administered on 12/12/18at 13:47; Admin Dose 250 MLS/HR; Start 11/24/18 at 13:00 Miscellaneous Information 1 ea NOTE XX ; Start 11/23/18 at 13:30 Glucose (Glutose) 15 gm Q15M PRN PO DECREASED GLUCOSE; Start 11/23/18 at 13:30 Glucose (Glutose) 22.5 gm Q15M PRN PO DECREASED GLUCOSE; Start 11/23/18 at 13:30 Dextrose (D50w Syringe) 25 ml Q15M PRN IV DECREASED GLUCOSE Last administered on 12/09/18at 13:59; Admin Dose 25 ML; Start 11/23/18 at 13:30 Dextrose (D50w Syringe) 50 ml Q15M PRN IV DECREASED GLUCOSE Last administered on 12/10/18at 13:14; Admin Dose 50 ML; Start 11/23/18 at 13:30 Glucagon (Glucagen) 1 mg Q15M PRN IM DECREASED GLUCOSE; Start 11/23/18 at 13:30 Glucose (Glutose) 15 gm Q15M PRN BUCCAL DECREASED GLUCOSE; Start 11/23/18 at 13:30 Propofol 100 ml @ 1.59 mls/hr Q12H IV Last administered on 12/05/18at 12:00; Admin Dose 0 MLS/HR; Start 11/24/18 at 00:00 Phenylephrine HCl 80 mg/Dextrose 250 ml @ 18.75 mls/ hr TITRATE IV ; Start at 00:00 Alteplase, Recombinant (Cathflo (Activase)) 2 mg MAY REPEAT X1 PRN CATHETER IF CATHETER REMAINS OCCULUDED Last administered on 12/02/18 15:47; Admin Dose 2 MG; Start 11/26/18 at 03:00 Albumin Human 100 ml @ 100 mls/hr DURING DIALYSIS PRN IV HYPOTENSION DURING HD Last administered on 12/10/18 08:53; Admin Dose 100 MLS/HR; Start 11/26/18 at 14:00 Levothyroxine Sodium (Synthroid) 75 mcg BEFORE BREAKFAST NGT Last administered on 12/12/18 06:07; Admin Dose 75 MCG; Start 11/29/18 at 07:00 Midazolam HCl 50 ml @ 1 mls/hr TITRATE IV Last administered on 11/30/18 05:15; Admin Dose 50 MLS/HR; Start 11/29/18 at 09:00 Sodium Chloride 154 meq/Dextrose 1,038.5 ml @ 40 mls/hr Q24H IV Last administered on 12/11/18 16:17; Admin Dose 40 MLS/HR; Start 11/30/18 at 10:00; Status Hold Collagenase (Santyl) 1 applic DAILY TOP Last administered on 12/12/18 09:46; Admin Dose 1 APPLIC; Start 12/01/18 at 16:30 Amiodarone HCl (Cordarone) 200 mg BID NGT Last administered on 12/12/18 09:46; Admin Dose 200 MG; Start 12/03/18 at 21:00 Acetaminophen (Tylenol Liquid) 650 mg Q6H PRN NGT PAIN LEVEL 1-3 OR FEVER; Start 12/06/18 at 09:00 Famotidine (Pepcid) 20 mg DAILY NGT Last administered on 12/12/18 09:46; Admin Dose 20 MG; Start 12/06/18 at 09:00 Folic Acid (Folic Acid) 1 mg DAILY NGT Last administered on 12/12/18 09:46; Admin Dose 1 MG; Start 12/06/18 at 09:00 Midodrine (Proamatine) 5 mg TID@,,17 GTB Last administered on 12/12/18 13:48; Admin Dose 5 MG; Start 12/07/18 at 09:00 Norepinephrine 32 mg/Dextrose 250 ml @ 0.47 mls/hr TITRATE IV Last administered on 12/12/18 09:48; Admin Dose 0.47 MLS/HR; Start 12/08/18 at 09:00 Epoetin Margarito-epbx (RETACRIT(esrd)) 10,000 unit MoWeFr@1700 SC Last administered on 12/11/18 18:42; Admin Dose 10,000 UNIT; Start 12/11/18 at 17:00 Eye Lubricant (Artificial Tears Oph) 2 drop QID BOTH EYES Last administered on 12/12/18 13:47; Admin Dose 2 DROP; Start 12/10/18 at 09:00 Methylprednisolone Sodium Succinate (Solu-Medrol) 40 mg Q6 IV Last administered on 12/12/18 13:46; Admin Dose 40 MG; Start 12/10/18 at 18:00 Diagnostic Test (Pha) (Accu-Chek) 1 ea Q4H XX Last administered on 12/12/18 05:00; Admin Dose 1 EA; Start 12/11/18 at 13:00 Ertapenem 1 gm/ Sodium Chloride 100 ml @ 200 mls/hr Q24H IVPB Last administered on 12/11/18 16:18; Admin Dose 200 MLS/HR; Start 12/11/18 at 14:00 JOSLYN LANDRUM MD December 12, 2018 15:15
[2018-12-12] MEDS: ALBUMIN HUMAN 25% 100 ML IV PRN (16:40)
[2018-12-12] MEDS: ERTAPENEM SODIUM 1 GM in SOD CHLORIDE 0.9% 100 ML IVPB SCH (18:35)
[2018-12-13] VITALS (72 sets, daily range): BP systolic 77–132; BP diastolic 47–92; PULSE 54–72; RESP 18–23
[2018-12-13] MEDS: PROPOFOL 100 ML IV SCH
[2018-12-13] MEDS: METHYLPREDNISOLONE 40 MG INJ IV SCH ×4 (00:29→17:53)
[2018-12-13] MEDS: ACCU-CHEK XX SCH ×6 (00:31→21:00)
[2018-12-13] MEDS: LEVOTHYROXINE 75 MCG TAB NGT SCH (06:10)
--- NOTE | 2018-12-13 07:20 | PN ---
Date/Time of Note Date/Time of Note DATE: 12/13/18 TIME: 07:20 Assessment/Plan VTE Prophylaxis Risk score (from Ns)>0 risk: 8 SCD applied (from Ns): No SCD contraindicated: other Pharmacological prophylaxis: other Lines/Catheters [facility] Mid Line Urinary Cath still in place: No Assessment/Plan Hospital Course renal follow up SUBJECTIVE: The patient remains critically ill on pressor support. The patient had hemodialysis yesterday. No other events noted. vent settings were reviewed d/w Dr Casanova OBJECTIVE: HEENT: Head is normocephalic. NECK: Supple. HEART: Tachycardic. LUNGS: Show diminished breath sounds at the base. ABDOMEN: Soft, nontender to palpation. Positive PD catheter. EXTREMITIES: Negative for clubbing, cyanosis. Positive edema, diffuse anasarca. DERMATOLOGIC: No rashes. MUSCULOSKELETAL: No joint effusion. NEUROLOGIC: No change in exam. MEDICATIONS: Reviewed. LABORATORY DATA: From 12/11/2018 was reviewed. IMAGING STUDIES: Reviewed. MICROBIOLOGY: Cultures have been reviewed. ASSESSMENT AND PLAN: 1. End-stage renal disease. continue HD in 1-2 days. will evaluate daily for her dialytic needs 2. Access. The patient has Davie catheter in the left femoral vein. Pending Davie catheter exchange per CT surgery. Anticipate exchange once platelets have improved. 3. Volume overload with diffuse anasarca. Continue ultrafiltration with hemodialysis if hemodynamically stable. 4. Septic shock secondary to pneumonia. Continue pressor support, wean off as tolerated. Continue broad-spectrum antibiotics. 5. Anemia. Continue to monitor hemoglobin and hematocrit levels. Continue Epogen. The patient is status post blood transfusion. 6. Mineral bone disorder. Monitor calcium and phosphorus levels. 7. Ventilator-dependent respiratory failure. Vent settings and ABG was reviewed. Continue to monitor. 8. Acute encephalopathy, etiology is toxic metabolic. 9. Ascites, status post paracentesis. 10. Hypothyroidism. Continue Synthroid. 11. Dysphagia, status post PEG. Continue tube feeding. 12. Arrhythmia. Continue amiodarone. 13. Hypoglycemia, improving. We will deescalate dextrose drip. 14. Lower extremity wounds. Continue wound care. 15. Status post cardiopulmonary arrest. Result Diagram: 12/11/18 0455 12/11/18 0455 Results 24hrs Laboratory Tests Test 12/12/18 09:42 12/12/18 15:14 12/12/18 18:00 12/12/18 21:17 Bedside Glucose 176 154 129 118 Test 12/13/18 00:33 12/13/18 06:12 Bedside Glucose 109 123 Exam/Review of Systems Exam Vitals Vital Signs Date Temp Pulse Resp B/P (MAP) Pulse Ox O2 O2 Flow FiO2 Time Delivery Rate 12/13/18 66 20 100/52 100 06:15 (68) 12/13/18 Mechanical 06:00 Ventilator 12/13/18 30 05:20 12/13/18 97.7 00:00 Intake and Output 12/12/18 12/12/18 12/13/18 1515:00 23:00 07:00 IntakeIntake Total 784.68 ml 584.03 ml 305.47 ml OutputOutput Total 1650 ml 100 ml BalanceBalance 784.68 ml -1065.97 ml 205.47 ml Results Results 24hrs Laboratory Tests Test 12/12/18 09:42 12/12/18 15:14 12/12/18 18:00 12/12/18 21:17 Bedside Glucose 176 154 129 118 Test 12/13/18 00:33 12/13/18 06:12 Bedside Glucose 109 123 Medications Medication Current Medications Ondansetron HCl (Zofran Inj) 4 mg Q6H PRN IV NAUSEA AND/OR VOMITING Last administered on 12/11/18at 06:53; Admin Dose 4 MG; Start 11/21/18 at 05:30 Albuterol/ Ipratropium (Duoneb) 3 ml Q2H RESP THERAPY PRN NEB SHORTNESS OF BREATH; Start 11/21/18 at 05:30 Caspofungin 50 mg/ Sodium Chloride 250 ml @ 250 mls/hr Q24H IVPB Last administered on 12/12/18at 13:47; Admin Dose 250 MLS/HR; Start 11/24/18 at 13:00 Miscellaneous Information 1 ea NOTE XX ; Start 11/23/18 at 13:30 Glucose (Glutose) 15 gm Q15M PRN PO DECREASED GLUCOSE; Start 11/23/18 at 13:30 Glucose (Glutose) 22.5 gm Q15M PRN PO DECREASED GLUCOSE; Start 11/23/18 at 13:30 Dextrose (D50w Syringe) 25 ml Q15M PRN IV DECREASED GLUCOSE Last administered on 12/09/18 13:59; Admin Dose 25 ML; Start 11/23/18 at 13:30 Dextrose (D50w Syringe) 50 ml Q15M PRN IV DECREASED GLUCOSE Last administered on 12/10/18 13:14; Admin Dose 50 ML; Start 11/23/18 at 13:30 Glucagon (Glucagen) 1 mg Q15M PRN IM DECREASED GLUCOSE; Start 11/23/18 at 13:30 Glucose (Glutose) 15 gm Q15M PRN BUCCAL DECREASED GLUCOSE; Start 11/23/18 at 13:30 Propofol 100 ml @ 1.59 mls/hr Q12H IV Last administered on 12/05/18 12:00; Admin Dose 0 MLS/HR; Start 11/24/18 at 00:00 Phenylephrine HCl 80 mg/Dextrose 250 ml @ 18.75 mls/ hr TITRATE IV ; Start 11/24/18 at 00:00 Alteplase, Recombinant (Cathflo (Activase)) 2 mg MAY REPEAT X1 PRN CATHETER IF CATHETER REMAINS OCCULUDED Last administered on 12/02/18 15:47; Admin Dose 2 MG; Start 11/26/18 at 03:00 Albumin Human 100 ml @ 100 mls/hr DURING DIALYSIS PRN IV HYPOTENSION DURING HD Last administered on 12/12/18 16:40; Admin Dose 100 MLS/HR; Start 11/26/18 at 14:00 Levothyroxine Sodium (Synthroid) 75 mcg BEFORE BREAKFAST NGT Last administered on 12/13/18 06:10; Admin Dose 75 MCG; Start 11/29/18 at 07:00 Midazolam HCl 50 ml @ 1 mls/hr TITRATE IV Last administered on 11/30/18 05:15; Admin Dose 50 MLS/HR; Start 11/29/18 at 09:00 Sodium Chloride 154 meq/Dextrose 1,038.5 ml @ 40 mls/hr Q24H IV Last administered on 12/11/18 16:17; Admin Dose 40 MLS/HR; Start 11/30/18 at 10:00; Status Hold Collagenase (Santyl) 1 applic DAILY TOP Last administered on 12/12/18 09:46; Admin Dose 1 APPLIC; Start 12/01/18 at 16:30 Amiodarone HCl (Cordarone) 200 mg BID NGT Last administered on 12/12/18 21:18; Admin Dose 200 MG; Start 12/03/18 at 21:00 Acetaminophen (Tylenol Liquid) 650 mg Q6H PRN NGT PAIN LEVEL 1-3 OR FEVER; Start 12/06/18 at 09:00 Famotidine (Pepcid) 20 mg DAILY NGT Last administered on 12/12/18 09:46; Admin Dose 20 MG; Start 12/06/18 at 09:00 Folic Acid (Folic Acid) 1 mg DAILY NGT Last administered on 12/12/18 09:46; Admin Dose 1 MG; Start 12/06/18 at 09:00 Midodrine (Proamatine) 5 mg TID@,,17 GTB Last administered on 12/12/18 18:36; Admin Dose 5 MG; Start 12/07/18 at 09:00 Norepinephrine 32 mg/Dextrose 250 ml @ 0.47 mls/hr TITRATE IV Last administered on 12/12/18 09:48; Admin Dose 0.47 MLS/HR; Start 12/08/18 at 09:00 Epoetin Margarito-epbx (RETACRIT(esrd)) 10,000 unit MoWeFr@1700 SC Last administered on 12/11/18 18:42; Admin Dose 10,000 UNIT; Start 12/11/18 at 17:00 Eye Lubricant (Artificial Tears Oph) 2 drop QID BOTH EYES Last administered on 12/12/18 21:18; Admin Dose 2 DROP; Start 12/10/18 at 09:00 Methylprednisolone Sodium Succinate (Solu-Medrol) 40 mg Q6 IV Last administered on 12/13/18 06:10; Admin Dose 40 MG; Start 12/10/18 at 18:00 Diagnostic Test (Pha) (Accu-Chek) 1 ea Q4H XX Last administered on 12/13/18 05:00; Admin Dose 1 EA; Start 12/11/18 at 13:00 Ertapenem 1 gm/ Sodium Chloride 100 ml @ 200 mls/hr Q24H IVPB Last administered on 12/12/18 18:35; Admin Dose 200 MLS/HR; Start 12/11/18 at 14:00 DAVID CASTILLO DO December 13, 2018 07:20
[2018-12-13] MEDS: AMIODARONE 200 MG TAB NGT SCH ×2 (09:00→20:56)
[2018-12-13] MEDS: COLLAGENASE 5 GM (UD JAR) TOP SCH (09:01)
[2018-12-13] MEDS: ARTIFICIAL TEARS 15 ML OPH BOTH EYES SCH ×4 (09:01→20:51)
[2018-12-13] MEDS: BALSAM PERU/CASTOR OIL 60 GM TUBE TOP SCH ×2 (09:02→20:51)
[2018-12-13] MEDS: FOLIC ACID 1 MG TAB NGT SCH (09:02)
[2018-12-13] MEDS: FAMOTIDINE 20 MG TAB NGT SCH (09:02)
[2018-12-13] MEDS: MIDODRINE 5 MG TAB GTB SCH ×3 (09:02→17:53)
--- NOTE | 2018-12-13 10:07 | CONS ---
Consult Date/Type/Reason Admit Date/Time Nov 21, 2018 at 04:53 Initial Consult Date Type of Consultation: Pulm/CC Requesting Provider: RIKA STOCK Date/Time of Note DATE: 12/13/18 TIME: 10:05 Subjective No events overnight. Awake on the vent. Objective Vitals Vital Signs Date Temp Pulse Resp B/P (MAP) Pulse Ox O2 O2 Flow FiO2 Time Delivery Rate 12/13/18 63 08:00 12/13/18 20 100/52 100 06:15 (68) 12/13/18 Mechanical 06:00 Ventilator 12/13/18 30 05:20 12/13/18 97.7 00:00 Intake and Output 12/12/18 12/12/18 12/13/18 1515:00 23:00 07:00 IntakeIntake Total 784.68 ml 584.03 ml 305.47 ml OutputOutput Total 1650 ml 100 ml BalanceBalance 784.68 ml -1065.97 ml 205.47 ml Exam HEENT: Neck supple; no JVD; no LAD CVS: RRR, S1 and S2 CHEST: Clear ABD: Soft, NT, + BS EXT: + cachexia NEURO: Diffusely weak with proximal > distal motor weakness Results/Medications Result Diagram: 12/11/18 0455 12/11/18 0455 Results 24 hrs Laboratory Tests Test 12/12/18 15:14 12/12/18 18:00 12/12/18 21:17 12/13/18 00:33 Bedside Glucose 154 129 118 109 Test 12/13/18 06:12 12/13/18 09:06 Bedside Glucose 123 140 Home Meds Reported Medications Folic Acid* (Folic Acid*) 1 Mg Tablet, 1 MG PO DAILY, TAB 08/10/18 Amiodarone Hcl* (Amiodarone Hcl*) 200 Mg Tablet, 200 MG PO BID, #60 TAB 08/10/18 Pantoprazole* (Protonix*) 40 Mg Tablet.dr, 40 MG PO DAILY, TAB 08/10/18 Multivit/Ca Carb/B Cmplx/Fa* (Iram-Xiomara*) 1 Tab Tab, 1 TAB PO DAILY, TAB 08/10/18 Levothyroxine Sodium* (Levoxyl*) 75 Mcg Tablet, 75 MCG PO BEFORE BREAKFAST, #30 TAB 08/10/18 Medications Current Medications Ondansetron HCl (Zofran Inj) 4 mg Q6H PRN IV NAUSEA AND/OR VOMITING Last administered on 12/11/18 06:53; Admin Dose 4 MG; Start 11/21/18 at 05:30 Albuterol/ Ipratropium (Duoneb) 3 ml Q2H RESP THERAPY PRN NEB SHORTNESS OF BREATH; Start 11/21/18 at 05:30 Caspofungin 50 mg/ Sodium Chloride 250 ml @ 250 mls/hr Q24H IVPB Last administered on 12/12/18 13:47; Admin Dose 250 MLS/HR; Start 11/24/18 at 13:00 Miscellaneous Information 1 ea NOTE XX ; Start 11/23/18 at 13:30 Glucose (Glutose) 15 gm Q15M PRN PO DECREASED GLUCOSE; Start 11/23/18 at 13:30 Glucose (Glutose) 22.5 gm Q15M PRN PO DECREASED GLUCOSE; Start 11/23/18 at 13:30 Dextrose (D50w Syringe) 25 ml Q15M PRN IV DECREASED GLUCOSE Last administered on 12/09/18at 13:59; Admin Dose 25 ML; Start 11/23/18 at 13:30 Dextrose (D50w Syringe) 50 ml Q15M PRN IV DECREASED GLUCOSE Last administered on 12/10/18 13:14; Admin Dose 50 ML; Start 11/23/18 at 13:30 Glucagon (Glucagen) 1 mg Q15M PRN IM DECREASED GLUCOSE; Start 11/23/18 at 13:30 Glucose (Glutose) 15 gm Q15M PRN BUCCAL DECREASED GLUCOSE; Start 11/23/18 at 13:30 Propofol 100 ml @ 1.59 mls/hr Q12H IV Last administered on 12/05/18at 12:00; Admin Dose 0 MLS/HR; Start 11/24/18 at 00:00 Phenylephrine HCl 80 mg/Dextrose 250 ml @ 18.75 mls/ hr TITRATE IV ; Start 11/24/18 at 00:00 Alteplase, Recombinant (Cathflo (Activase)) 2 mg MAY REPEAT X1 PRN CATHETER IF CATHETER REMAINS OCCULUDED Last administered on 12/02/18 15:47; Admin Dose 2 MG; Start 11/26/18 at 03:00 Albumin Human 100 ml @ 100 mls/hr DURING DIALYSIS PRN IV HYPOTENSION DURING HD Last administered on 12/12/18 16:40; Admin Dose 100 MLS/HR; Start 11/26/18 at 14:00 Levothyroxine Sodium (Synthroid) 75 mcg BEFORE BREAKFAST NGT Last administered on 12/13/18 06:10; Admin Dose 75 MCG; Start 11/29/18 at 07:00 Midazolam HCl 50 ml @ 1 mls/hr TITRATE IV Last administered on 11/30/18 05:15; Admin Dose 50 MLS/HR; Start 11/29/18 at 09:00 Sodium Chloride 154 meq/Dextrose 1,038.5 ml @ 40 mls/hr Q24H IV Last administered on 12/11/18 16:17; Admin Dose 40 MLS/HR; Start 11/30/18 at 10:00; Status Hold Collagenase (Santyl) 1 applic DAILY TOP Last administered on 12/13/18 09:01; Admin Dose 1 APPLIC; Start 12/01/18 at 16:30 Amiodarone HCl (Cordarone) 200 mg BID NGT Last administered on 12/12/18 21:18; Admin Dose 200 MG; Start 12/03/18 at 21:00 Acetaminophen (Tylenol Liquid) 650 mg Q6H PRN NGT PAIN LEVEL 1-3 OR FEVER; Start 12/06/18 at 09:00 Famotidine (Pepcid) 20 mg DAILY NGT Last administered on 12/13/18 09:02; Admin Dose 20 MG; Start 12/06/18 at 09:00 Folic Acid (Folic Acid) 1 mg DAILY NGT Last administered on 12/13/18 09:02; Admin Dose 1 MG; Start 12/06/18 at 09:00 Midodrine (Proamatine) 5 mg TID@,13,17 GTB Last administered on 12/13/18 09:02; Admin Dose 5 MG; Start 12/07/18 at 09:00 Norepinephrine 32 mg/Dextrose 250 ml @ 0.47 mls/hr TITRATE IV Last administered on 12/12/18 09:48; Admin Dose 0.47 MLS/HR; Start 12/08/18 at 09:00 Epoetin Margarito-epbx (RETACRIT(esrd)) 10,000 unit MoWeFr@1700 SC Last administered on 12/11/18 18:42; Admin Dose 10,000 UNIT; Start 12/11/18 at 17:00 Eye Lubricant (Artificial Tears Oph) 2 drop QID BOTH EYES Last administered on 12/13/18 09:01; Admin Dose 2 DROP; Start 12/10/18 at 09:00 Methylprednisolone Sodium Succinate (Solu-Medrol) 40 mg Q6 IV Last administered on 12/13/18 06:10; Admin Dose 40 MG; Start 12/10/18 at 18:00 Diagnostic Test (Pha) (Accu-Chek) 1 ea Q4H XX Last administered on 12/13/18 09:02; Admin Dose 1 EA; Start 12/11/18 at 13:00 Ertapenem 1 gm/ Sodium Chloride 100 ml @ 200 mls/hr Q24H IVPB Last administered on 12/12/18 18:35; Admin Dose 200 MLS/HR; Start 12/11/18 at 14:00 Assessment/Plan Assessment/Plan (Daily) IMP: 1. Septic Shock 2. Gram Negative Bacteremia 3. Vent Dependent Resp Failure/Failure to wean 4. ESRD on HD 5. Cardiomyopathy 6. Severe Thrombocytopenia 7. Anemia RECS: 1. Trach planned for tomorrow. Will need platelets prior. 2. Minimize sedation 3. Titrate pressors to MAP > 65 mm Hg 4. HD/UF per Renal 5. Abx per ID 40 min cc time SHERON CAPUTO MD December 13, 2018 10:07
--- NOTE | 2018-12-13 11:51 | CONS ---
Assessment/Plan Assessment/Plan Hospital Course (Demo Recall) No acute events overnight off pressors Antimicrobials: Cancidas, Invanz Microbiology: Blood culture on admission grew Klebsiella ESBL, repeat blood cultures negative, left thigh wound culture grew Klebsiella ESBL and Leah albicans Allergy: Zosyn, vancomycin Indwelling: Right upper thigh Davie catheter, left femoral triple-lumen catheter, endotracheal tube, orogastric tube, midline Physical examination: This is a chronically ill-appearing cachectic middle-aged woman who is laying comfortably in bed. Head atraumatic normocephalic. Neck is supple. Chest rise symmetrical. Breath sounds diminished bases. Heart: S1-S2, irreg. Abdomen distended. Bowel sounds hypoactive. Extremities with bilateral edema, cyanotic, multiple ecchymotic areas and bruises, left upper thigh dressing present is Assessment: 1. Sepsis with shock 2. Acute hypoxemic respiratory failure secondary to CHF exacerbation/probable pneumonia 3. Klebsiella ESBL bacteremia likely 2 to #4 4. 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 End-stage renal disease, hemodialysis dependent 6. Atrial fibrillation/PPM 7. Unstageable sacral decubitus 8. History of peritoneal dialysis with peritoneal dialysis still in place 9. Ascites status post paracentesis 3 weeks ago 10. Failure to thrive 11. Progressive thrombocytopenia 12. B mastoiditis and acute sinusitis Plan: Remains unchanged, off pressors, continue antibiotics indefinitely for infected graft, pending trach Consultation Date/Type/Reason Admit Date/Time Nov 21, 2018 at 04:53 Initial Consult Date Type of Consult id Requesting Provider: RIKA STOCK Date/Time of Note DATE: 12/13/18 TIME: 11:50 Exam/Review of Systems Exam Vitals Vital Signs Date Temp Pulse Resp B/P (MAP) Pulse Ox O2 O2 Flow FiO2 Time Delivery Rate 12/13/18 60 20 84/47 (59) 100 10:15 12/13/18 Mechanical 10:00 Ventilator 12/13/18 40 08:00 12/13/18 94.9 08:00 Intake and Output 12/12/18 12/12/18 12/13/18 1515:00 23:00 07:00 IntakeIntake Total 784.68 ml 584.03 ml 305.47 ml OutputOutput Total 1650 ml 100 ml BalanceBalance 784.68 ml -1065.97 ml 205.47 ml Results Result Diagram: 12/11/18 0455 12/11/18 0455 Results 24hrs Laboratory Tests Test 12/12/18 15:14 12/12/18 18:00 12/12/18 21:17 12/13/18 00:33 Bedside Glucose 154 129 118 109 Test 12/13/18 06:12 12/13/18 09:06 Bedside Glucose 123 140 Medications Medication Current Medications Ondansetron HCl (Zofran Inj) 4 mg Q6H PRN IV NAUSEA AND/OR VOMITING Last administered on 12/11/18at 06:53; Admin Dose 4 MG; Start 11/21/18 at 05:30 Albuterol/ Ipratropium (Duoneb) 3 ml Q2H RESP THERAPY PRN NEB SHORTNESS OF BREATH; Start 11/21/18 at 05:30 Caspofungin 50 mg/ Sodium Chloride 250 ml @ 250 mls/hr Q24H IVPB Last administered on 12/12/18at 13:47; Admin Dose 250 MLS/HR; Start 11/24/18 at 13:00 Miscellaneous Information 1 ea NOTE XX ; Start 11/23/18 at 13:30 Glucose (Glutose) 15 gm Q15M PRN PO DECREASED GLUCOSE; Start 11/23/18 at 13:30 Glucose (Glutose) 22.5 gm Q15M PRN PO DECREASED GLUCOSE; Start 11/23/18 at 13:30 Dextrose (D50w Syringe) 25 ml Q15M PRN IV DECREASED GLUCOSE Last administered on 12/09/18at 13:59; Admin Dose 25 ML; Start 11/23/18 at 13:30 Dextrose (D50w Syringe) 50 ml Q15M PRN IV DECREASED GLUCOSE Last administered on 12/10/18at 13:14; Admin Dose 50 ML; Start 11/23/18 at 13:30 Glucagon (Glucagen) 1 mg Q15M PRN IM DECREASED GLUCOSE; Start 11/23/18 at 13:30 Glucose (Glutose) 15 gm Q15M PRN BUCCAL DECREASED GLUCOSE; Start 11/23/18 at 13:30 Phenylephrine HCl 80 mg/Dextrose 250 ml @ 18.75 mls/ hr TITRATE IV ; Start 11/24/18 at 00:00 Alteplase, Recombinant (Cathflo (Activase)) 2 mg MAY REPEAT X1 PRN CATHETER IF CATHETER REMAINS OCCULUDED Last administered on 12/02/18 15:47; Admin Dose 2 MG; Start 11/26/18 at 03:00 Albumin Human 100 ml @ 100 mls/hr DURING DIALYSIS PRN IV HYPOTENSION DURING HD Last administered on 12/12/18 16:40; Admin Dose 100 MLS/HR; Start 11/26/18 at 14:00 Levothyroxine Sodium (Synthroid) 75 mcg BEFORE BREAKFAST NGT Last administered on 12/13/18 06:10; Admin Dose 75 MCG; Start 11/29/18 at 07:00 Sodium Chloride 154 meq/Dextrose 1,038.5 ml @ 40 mls/hr Q24H IV Last administered on 12/11/18 16:17; Admin Dose 40 MLS/HR; Start 11/30/18 at 10:00; Status Hold Collagenase (Santyl) 1 applic DAILY TOP Last administered on 12/13/18 09:01; Admin Dose 1 APPLIC; Start 12/01/18 at 16:30 Amiodarone HCl (Cordarone) 200 mg BID NGT Last administered on 12/12/18 21:18; Admin Dose 200 MG; Start 12/03/18 at 21:00 Acetaminophen (Tylenol Liquid) 650 mg Q6H PRN NGT PAIN LEVEL 1-3 OR FEVER; Start 12/06/18 at 09:00 Famotidine (Pepcid) 20 mg DAILY NGT Last administered on 12/13/18 09:02; Admin Dose 20 MG; Start 12/06/18 at 09:00 Folic Acid (Folic Acid) 1 mg DAILY NGT Last administered on 12/13/18 09:02; Admin Dose 1 MG; Start 12/06/18 at 09:00 Midodrine (Proamatine) 5 mg TID@,13,17 GTB Last administered on 12/13/18 09:02; Admin Dose 5 MG; Start 12/07/18 at 09:00 Norepinephrine 32 mg/Dextrose 250 ml @ 0.47 mls/hr TITRATE IV Last administered on 12/12/18 09:48; Admin Dose 0.47 MLS/HR; Start 12/08/18 at 09:00 Epoetin Margarito-epbx (RETACRIT(esrd)) 10,000 unit MoWeFr@1700 SC Last administered on 12/11/18 18:42; Admin Dose 10,000 UNIT; Start 12/11/18 at 17:00 Eye Lubricant (Artificial Tears Oph) 2 drop QID BOTH EYES Last administered on 12/13/18 09:01; Admin Dose 2 DROP; Start 12/10/18 at 09:00 Methylprednisolone Sodium Succinate (Solu-Medrol) 40 mg Q6 IV Last administered on 12/13/18 06:10; Admin Dose 40 MG; Start 12/10/18 at 18:00 Diagnostic Test (Pha) (Accu-Chek) 1 ea Q4H XX Last administered on 12/13/18 09:02; Admin Dose 1 EA; Start 12/11/18 at 13:00 Ertapenem 1 gm/ Sodium Chloride 100 ml @ 200 mls/hr Q24H IVPB Last administered on 12/12/18 18:35; Admin Dose 200 MLS/HR; Start 12/11/18 at 14:00 Dextrose/Sodium Chloride 1,000 ml @ 40 mls/hr Q24H IV ; Start 12/14/18 at 00:01 KELSIE ELY NP December 13, 2018 11:51
[2018-12-13] MEDS: CASPOFUNGIN 50 MG in SOD CHLORIDE 0.9% 250 ML IVPB SCH (12:45)
[2018-12-13] MEDS: ERTAPENEM SODIUM 1 GM in SOD CHLORIDE 0.9% 100 ML IVPB SCH (15:18)
--- NOTE | 2018-12-13 15:31 | PN ---
Date/Time of Note Date/Time of Note DATE: 12/13/18 TIME: 15:30 Assessment/Plan VTE Prophylaxis Risk score (from Nsg)>0 risk: 12 SCD applied (from Nsg): Yes Pharmacological prophylaxis: heparin Lines/Catheters IV Catheter Type (from Nrsg): Mid Line Urinary Cath still in place: No Assessment/Plan Hospital Course Intubated, apears comfortable, interactive Chronically ill appearing Lungs clear Distended belly, firm masses, G tube in place Mild peripheral edema present LUE wound wrapped 58 yo female with ESRD, cirrohsihs, DMII presents with hypoglycemia, leg infection. Suffered cardiac and respiratory arrest, now intubated Acute respiratory failure: - MV per pulm - Trach planned for tomorrow, platelets prior - s/p G tube Septic shock: - Antibiotics per ID Hypoglycemia: No history of diabetes and patient not on any insulin or sulfonylurea or any other diabetic medication - Continue IV dextrose and tube feeds Left lower extremity wound - Antibiotics per ID -Venous study was negative for DVT A Fib: - Amiodarone ESRD with fluid overload - HD per nephrology Hypothyroidism: Continue Synthroid History of pacemaker: No acute issue Prophylaxis: SCDs DC planning: Poor prognosis. Continue goals of care discussions with family. So far unwilling to consider withdrawal of care. Very upset to be asked about it and don't want us to bring it up again Result Diagram: 12/11/18 0455 12/11/18 0455 Results 24hrs Laboratory Tests Test 12/12/18 18:00 12/12/18 21:17 12/13/18 00:33 12/13/18 06:12 Bedside Glucose 129 118 109 123 Test 12/13/18 09:06 12/13/18 12:41 Bedside Glucose 140 140 Subjective 24 Hr Interval Summary Free Text/Dictation Now off of vasopressors Remains intubated, no sedation Exam/Review of Systems Exam Vitals Vital Signs Date Temp Pulse Resp B/P (MAP) Pulse Ox O2 O2 Flow FiO2 Time Delivery Rate 12/13/18 64 12:00 12/13/18 20 96 30 11:59 12/13/18 84/47 (59) 10:15 12/13/18 Mechanical 10:00 Ventilator 12/13/18 94.9 08:00 Intake and Output 12/12/18 12/12/18 12/13/18 1515:00 23:00 07:00 IntakeIntake Total 784.68 ml 584.03 ml 305.47 ml OutputOutput Total 1650 ml 100 ml BalanceBalance 784.68 ml -1065.97 ml 205.47 ml Results Results 24hrs Laboratory Tests Test 12/12/18 18:00 12/12/18 21:17 12/13/18 00:33 12/13/18 06:12 Bedside Glucose 129 118 109 123 Test 12/13/18 09:06 12/13/18 12:41 Bedside Glucose 140 140 Medications Medication Current Medications Ondansetron HCl (Zofran Inj) 4 mg Q6H PRN IV NAUSEA AND/OR VOMITING Last administered on 12/11/18at 06:53; Admin Dose 4 MG; Start 11/21/18 at 05:30 Albuterol/ Ipratropium (Duoneb) 3 ml Q2H RESP THERAPY PRN NEB SHORTNESS OF BREATH; Start 11/21/18 at 05:30 Caspofungin 50 mg/ Sodium Chloride 250 ml @ 250 mls/hr Q24H IVPB Last administered on 12/13/18at 12:45; Admin Dose 250 MLS/HR; Start 11/24/18 at 13:00 Miscellaneous Information 1 ea NOTE XX ; Start 11/23/18 at 13:30 Glucose (Glutose) 15 gm Q15M PRN PO DECREASED GLUCOSE; Start 11/23/18 at 13:30 Glucose (Glutose) 22.5 gm Q15M PRN PO DECREASED GLUCOSE; Start 11/23/18 at 13:30 Dextrose (D50w Syringe) 25 ml Q15M PRN IV DECREASED GLUCOSE Last administered on 12/09/18at 13:59; Admin Dose 25 ML; Start 11/23/18 at 13:30 Dextrose (D50w Syringe) 50 ml Q15M PRN IV DECREASED GLUCOSE Last administered on 12/10/18at 13:14; Admin Dose 50 ML; Start 11/23/18 at 13:30 Glucagon (Glucagen) 1 mg Q15M PRN IM DECREASED GLUCOSE; Start 11/23/18 at 13:30 Glucose (Glutose) 15 gm Q15M PRN BUCCAL DECREASED GLUCOSE; Start 11/23/18 at 13:30 Phenylephrine HCl 80 mg/Dextrose 250 ml @ 18.75 mls/ hr TITRATE IV ; Start 11/24/18 at 00:00 Alteplase, Recombinant (Cathflo (Activase)) 2 mg MAY REPEAT X1 PRN CATHETER IF CATHETER REMAINS OCCULUDED Last administered on 12/02/18 15:47; Admin Dose 2 MG; Start 11/26/18 at 03:00 Albumin Human 100 ml @ 100 mls/hr DURING DIALYSIS PRN IV HYPOTENSION DURING HD Last administered on 12/12/18 16:40; Admin Dose 100 MLS/HR; Start 11/26/18 at 14:00 Levothyroxine Sodium (Synthroid) 75 mcg BEFORE BREAKFAST NGT Last administered on 12/13/18 06:10; Admin Dose 75 MCG; Start 11/29/18 at 07:00 Sodium Chloride 154 meq/Dextrose 1,038.5 ml @ 40 mls/hr Q24H IV Last a dministered on 12/11/18 16:17; Admin Dose 40 MLS/HR; Start 11/30/18 at 10:00; Status Hold Collagenase (Santyl) 1 applic DAILY TOP Last administered on 12/13/18 09:01; Admin Dose 1 APPLIC; Start 12/01/18 at 16:30 Amiodarone HCl (Cordarone) 200 mg BID NGT Last administered on 12/12/18 21:18; Admin Dose 200 MG; Start 12/03/18 at 21:00 Acetaminophen (Tylenol Liquid) 650 mg Q6H PRN NGT PAIN LEVEL 1-3 OR FEVER; Start 12/06/18 at 09:00 Famotidine (Pepcid) 20 mg DAILY NGT Last administered on 12/13/18 09:02; Admin Dose 20 MG; Start 12/06/18 at 09:00 Folic Acid (Folic Acid) 1 mg DAILY NGT Last administered on 12/13/18 09:02; Admin Dose 1 MG; Start 12/06/18 at 09:00 Midodrine (Proamatine) 5 mg TID@,,17 GTB Last administered on 12/13/18 12:46; Admin Dose 5 MG; Start 12/07/18 at 09:00 Norepinephrine 32 mg/Dextrose 250 ml @ 0.47 mls/hr TITRATE IV Last administered on 12/12/18 09:48; Admin Dose 0.47 MLS/HR; Start 12/08/18 at 09:00 Epoetin Margarito-epbx (RETACRIT(esrd)) 10,000 unit MoWeFr@1700 SC Last administered on 12/11/18 18:42; Admin Dose 10,000 UNIT; Start 12/11/18 at 17:00 Eye Lubricant (Artificial Tears Oph) 2 drop QID BOTH EYES Last administered on 12/13/18 12:45; Admin Dose 2 DROP; Start 12/10/18 at 09:00 Methylprednisolone Sodium Succinate (Solu-Medrol) 40 mg Q6 IV Last administered on 12/13/18 12:45; Admin Dose 40 MG; Start 12/10/18 at 18:00 Diagnostic Test (Pha) (Accu-Chek) 1 ea Q4H XX Last administered on 12/13/18 12:46; Admin Dose 1 EA; Start 12/11/18 at 13:00 Ertapenem 1 gm/ Sodium Chloride 100 ml @ 200 mls/hr Q24H IVPB Last administered on 12/13/18 15:18; Admin Dose 200 MLS/HR; Start 12/11/18 at 14:00 Dextrose/Sodium Chloride 1,000 ml @ 40 mls/hr Q24H IV ; Start 12/14/18 at 00:01 JOSLYN LANDRUM MD December 13, 2018 15:31
[2018-12-14] VITALS (86 sets, daily range): BP systolic 78–158; BP diastolic 54–88; PULSE 51–69; RESP 0–22
[2018-12-14] MEDS: METHYLPREDNISOLONE 40 MG INJ IV SCH ×4 (00:58→18:34)
[2018-12-14] MEDS: DEXTROSE 10%-0.2% NACL 1,000 ML IV SCH (00:58)
[2018-12-14] MEDS: ACCU-CHEK XX SCH ×6 (01:00→21:07)
[2018-12-14] MEDS: LEVOTHYROXINE 75 MCG TAB NGT SCH (06:00)
--- NOTE | 2018-12-14 07:51 | CONS ---
Assessment/Plan Assessment/Plan Assessment/Plan (Daily) Bilateral pneumonias Unable to be weaned from the ventilator Emaciated ICU malnutrition on clinical examination Renal failure on hemodialysis Patient scheduled for a trach today, family members consistently at the bedside states that she is improving she is tracking them and following simple commands. I cannot get patient to do the same. She is still a full code family members have asked not to be disturbed with readdressing the code once again. Long-term prognosis is bleak. Prognosis extremely poor secondary to mental status changes respiratory failure malnutrition vent dependent respiratory failure, renal failure on hemodialysis. If patient has a significant deterioration once again can reconsider CODE STATUS with family members, if they refuse may be indications for bioethics consultation if health care team leaves there is no significant chance for recovery. Consultation Date/Type/Reason Admit Date/Time Nov 21, 2018 at 04:53 Initial Consult Date Requesting Provider: RIKA STOCK Date/Time of Note DATE: 12/14/18 TIME: 07:41 Exam/Review of Systems Exam Vitals Vital Signs Date Temp Pulse Resp B/P (MAP) Pulse Ox O2 O2 Flow FiO2 Time Delivery Rate 12/14/18 55 21 121/60 100 Mechanical 06:00 (80) Ventilator 12/14/18 30 05:06 12/14/18 94.8 04:00 Intake and Output 12/13/18 12/13/18 12/14/18 1515:00 23:00 07:00 IntakeIntake Total 640.47 ml 450 ml 235 ml OutputOutput Total 0 ml 375 ml BalanceBalance 640.47 ml 75 ml 235 ml Constitutional: non-verbal, frail, other (Severe bilateral lower extremity muscle wasting malar retractions) Head: other Respiratory: congested cough, crackles/rales, diminished breath sounds Cardiovascular: regular rate and rhythm, nl pulses Neurological: confused, lethargic, other (Unable to follow any simple commands, unable to participate in neurological examination, confused, lethargic) Skin: ecchymosis Results Result Diagram: 12/14/18 0537 12/14/18 0538 Results 24hrs Laboratory Tests Test 12/13/18 09:06 12/13/18 12:41 12/13/18 17:52 12/13/18 21:00 Bedside Glucose 140 140 112 102 Test 12/14/18 01:02 12/14/18 05:37 12/14/18 05:38 12/14/18 05:57 Bedside Glucose 138 83 White Blood Count 4.5 L Red Blood Count 2.17 L Hemoglobin 6.6 *L Hematocrit 20.5 L Mean Corpuscular Volume 94.5 Mean Corpuscular 30.4 Hemoglobin Mean Corpuscular 32.2 Hemoglobin Concent Red Cell Distribution 18.6 H Width Platelet Count 21 *L Mean Platelet Volume Immature Granulocytes % 0.400 Neutrophils % Lymphocytes % Monocytes % Eosinophils % Basophils % Nucleated Red Blood 0.0 Cells % Immature Granulocytes # 0.020 Neutrophils # Lymphocytes # Monocytes # Eosinophils # Basophils # Nucleated Red Blood Cells # Prothrombin Time 16.6 H Prothrombin Time Ratio 1.3 INR International 1.33 Normalized Ratio Activated 34.0 Partial Thromboplast Time Lactic Acid Level 3.3 *H Sodium Level 141 Potassium Level 3.3 L Chloride Level 107 Carbon Dioxide Level 21 Anion Gap 13 Blood Urea Nitrogen 53 H Creatinine 1.08 H Est Glomerular Filtrat 52 L Rate mL/min Glucose Level 99 Calcium Level 9.0 Medications Medication Current Medications Ondansetron HCl (Zofran Inj) 4 mg Q6H PRN IV NAUSEA AND/OR VOMITING Last administered on 12/11/18at 06:53; Admin Dose 4 MG; Start 11/21/18 at 05:30 Albuterol/ Ipratropium (Duoneb) 3 ml Q2H RESP THERAPY PRN NEB SHORTNESS OF BREATH; Start 11/21/18 at 05:30 Caspofungin 50 mg/ Sodium Chloride 250 ml @ 250 mls/hr Q24H IVPB Last administered on 12/13/18at 12:45; Admin Dose 250 MLS/HR; Start 11/24/18 at 13:00 Miscellaneous Information 1 ea NOTE XX ; Start 11/23/18 at 13:30 Glucose (Glutose) 15 gm Q15M PRN PO DECREASED GLUCOSE; Start 11/23/18 at 13:30 Glucose (Glutose) 22.5 gm Q15M PRN PO DECREASED GLUCOSE; Start 11/23/18 at 13:30 Dextrose (D50w Syringe) 25 ml Q15M PRN IV DECREASED GLUCOSE Last administered on 12/09/18at 13:59; Admin Dose 25 ML; Start 11/23/18 at 13:30 Dextrose (D50w Syringe) 50 ml Q15M PRN IV DECREASED GLUCOSE Last administered on 12/10/18 13:14; Admin Dose 50 ML; Start 11/23/18 at 13:30 Glucagon (Glucagen) 1 mg Q15M PRN IM DECREASED GLUCOSE; Start 11/23/18 at 13:30 Glucose (Glutose) 15 gm Q15M PRN BUCCAL DECREASED GLUCOSE; Start 11/23/18 at 13:30 Phenylephrine HCl 80 mg/Dextrose 250 ml @ 18.75 mls/ hr TITRATE IV ; Start 11/24/18 at 00:00 Alteplase, Recombinant (Cathflo (Activase)) 2 mg MAY REPEAT X1 PRN CATHETER IF CATHETER REMAINS OCCULUDED Last administered on 12/02/18 15:47; Admin Dose 2 MG; Start 11/26/18 at 03:00 Albumin Human 100 ml @ 100 mls/hr DURING DIALYSIS PRN IV HYPOTENSION DURING HD Last administered on 12/12/18 16:40; Admin Dose 100 MLS/HR; Start 11/26/18 at 14:00 Levothyroxine Sodium (Synthroid) 75 mcg BEFORE BREAKFAST NGT Last administered on 12/14/18 06:00; Admin Dose 75 MCG; Start 11/29/18 at 07:00 Sodium Chloride 154 meq/Dextrose 1,038.5 ml @ 40 mls/hr Q24H IV Last administered on 12/11/18 16:17; Admin Dose 40 MLS/HR; Start 11/30/18 at 10:00 Collagenase (Santyl) 1 applic DAILY TOP Last administered on 12/13/18 09:01; Ad min Dose 1 APPLIC; Start 12/01/18 at 16:30 Amiodarone HCl (Cordarone) 200 mg BID NGT Last administered on 12/12/18 21:18; Admin Dose 200 MG; Start 12/03/18 at 21:00 Acetaminophen (Tylenol Liquid) 650 mg Q6H PRN NGT PAIN LEVEL 1-3 OR FEVER; Start 12/06/18 at 09:00 Famotidine (Pepcid) 20 mg DAILY NGT Last administered on 12/13/18 09:02; Admin Dose 20 MG; Start 12/06/18 at 09:00 Folic Acid (Folic Acid) 1 mg DAILY NGT Last administered on 12/13/18 09:02; Admin Dose 1 MG; Start 12/06/18 at 09:00 Midodrine (Proamatine) 5 mg TID@09,13,17 GTB Last administered on 12/13/18 17:53; Admin Dose 5 MG; Start 12/07/18 at 09:00 Norepinephrine 32 mg/Dextrose 250 ml @ 0.47 mls/hr TITRATE IV Last adminis tered on 12/12/18 09:48; Admin Dose 0.47 MLS/HR; Start 12/08/18 at 09:00 Epoetin Margarito-epbx (RETACRIT(esrd)) 10,000 unit MoWeFr@1700 SC Last administered on 12/11/18 18:42; Admin Dose 10,000 UNIT; Start 12/11/18 at 17:00 Eye Lubricant (Artificial Tears Oph) 2 drop QID BOTH EYES Last administered on 12/13/18 20:51; Admin Dose 2 DROP; Start 12/10/18 at 09:00 Methylprednisolone Sodium Succinate (Solu-Medrol) 40 mg Q6 IV Last administered on 12/14/18 06:00; Admin Dose 40 MG; Start 12/10/18 at 18:00 Diagnostic Test (Pha) (Accu-Chek) 1 ea Q4H XX Last administered on 12/13/18 17:53; Admin Dose 1 EA; Start 12/11/18 at 13:00 Ertapenem 1 gm/ Sodium Chloride 100 ml @ 200 mls/hr Q24H IVPB Last administ ered on 12/13/18 15:18; Admin Dose 200 MLS/HR; Start 12/11/18 at 14:00 Dextrose/Sodium Chloride 1,000 ml @ 40 mls/hr Q24H IV Last administered on 12/14/18 00:58; Admin Dose 40 MLS/HR; Start 12/14/18 at 00:01 Potassium Chloride (Potassium Chloride Pwd/Soln) 40 meq ONCE ONCE GTB ; Start 12/14/18 at 08:00; Stop 12/14/18 at 08:01 Epoetin Margarito-epbx (RETACRIT(esrd)) 10,000 unit MoWeFr@1700 SC ; Start 12/14/18 at 17:00; Status UNJULIEN SARAVIA December 14, 2018 07:51
[2018-12-14] MEDS ORDERED: POTASSIUM CHLORIDE 20 MEQ POWDER FOR ORAL SOLN GTB ONE (08:00)
--- NOTE | 2018-12-14 08:16 | PN ---
DATE: 12/14/2018 SUBJECTIVE: The patient remains critically ill. The patient is currently on pressor support. The p atient is pending trach placement today. No other events noted. OBJECTIVE: VITAL SIGNS: Blood pressure is 121/60, respirations 21, pulse 55, temperature 94.8. HEENT: Head is normocephalic. NECK: Supple. HEART: Regular rate. LUNGS: Show diminished breath sounds at the base. ABDOMEN: Soft, nontender to palpation. No rebound or guarding. EXTREMITIES: Negative for clubbing, cyanosis. Positive edema, diffuse anasarca. DERMATOLOGIC: No rashes. MUSCULOSKELETAL: No joint effusion. NEUROLOGIC: No change in exam. MEDICATIONS: Reviewed. LABORATORY DATA: From 12/14/18 was reviewed. MICROBIOLOGY: Reviewed. IMAGING STUDIES: Reviewed. ASSESSMENT AND PLAN: 1. End-stage renal disease. Plan is for hemodialysis. We will dialyze for 3 hours 3k bath, calcium 2.5. 2. Access. The patient has a Davie catheter in the left femoral vein. Pending Davie catheter e xchange per Dr. Recinos. Continue to monitor. 3. Volume overload with diffuse anasarca. Continue ultrafiltration with hemodialysis if hemodynamic ally stable. 4. Septic shock secondary to pneumonia. The patient is currently off pressor support. Continue bro ad spectrum antibiotics, continue to monitor. 5. Anemia. Continue to monitor hemoglobin and hematocrit levels. Continue Epogen. Continue blood transfusions as needed. 6. Mineral bone disorder, monitor calcium and phosphorus levels. 7. Ventilator-dependent respiratory failure. Vent settings and ABG was reviewed. Continue to monit or. The patient is pending trach placement. 8. Acute encephalopathy, etiology is toxic metabolic. 9. Ascites, status post paracentesis. 10. Hypothyroidism. Continue Synthroid. 11. Dysphagia, status post PEG. Continue tube feeding. 12. Arrhythmia. Continue amiodarone. 13. Hypoglycemia, improved. Continue to monitor. 14. Lower extremity wounds. Continue wound care. 15. Status post cardiopulmonary arrest. Dictated By: SARIKA JOINER DO NR/NTS Conf#: [id number] DID#: [id number] CC: JOSLYN LANDRUM MD; MANDY BATES MD; LORRAINE JOHNSON MD;*EndCC*
[2018-12-14] MEDS: AMIODARONE 200 MG TAB NGT SCH ×2 (09:00→21:00)
[2018-12-14] MEDS: FOLIC ACID 1 MG TAB NGT SCH (09:01)
[2018-12-14] MEDS: COLLAGENASE 5 GM (UD JAR) TOP SCH (09:01)
[2018-12-14] MEDS: FAMOTIDINE 20 MG TAB NGT SCH (09:01)
[2018-12-14] MEDS: BALSAM PERU/CASTOR OIL 60 GM TUBE TOP SCH ×2 (09:02→21:07)
[2018-12-14] MEDS: ARTIFICIAL TEARS 15 ML OPH BOTH EYES SCH ×4 (09:02→21:07)
[2018-12-14] MEDS: MIDODRINE 5 MG TAB GTB SCH ×3 (09:03→18:35)
--- NOTE | 2018-12-14 11:14 | CONS ---
Consult Date/Type/Reason Admit Date/Time Nov 21, 2018 at 04:53 Initial Consult Date Type of Consult Pulmonary Requesting Provider: RIKA STOCK Date/Time of Note DATE: 12/14/18 TIME: 11:13 Subjective Patient continues mechanical ventilation pending tracheostomy when platelet count and hemoglobin stable. Objective Vital Signs Date Temp Pulse Resp B/P (MAP) Pulse Ox O2 O2 Flow FiO2 Time Delivery Rate 12/14/18 68 10:55 12/14/18 20 111/62 100 Mechanical 10:36 (78) Ventilator T Tube 12/14/18 30 09:00 12/14/18 94.8 04:00 Intake and Output 12/13/18 12/13/18 12/14/18 1515:00 23:00 07:00 IntakeIntake Total 640.47 ml 450 ml 235 ml OutputOutput Total 0 ml 375 ml BalanceBalance 640.47 ml 75 ml 235 ml Exam Frail elderly lady orally intubated on mechanical ventilation Vent Setting Ventilator Support Mode: AC, VC plus Fraction of Inspired Oxygen pe: 30 Positive End Expiratory Pressu: 5.0 Results/Medications Result Diagram: 12/14/18 0537 12/14/18 0538 Results 24 hrs Laboratory Tests Test 12/13/18 12:41 12/13/18 17:52 12/13/18 21:00 12/14/18 01:02 Bedside Glucose 140 112 102 138 Test 12/14/18 05:37 12/14/18 05:38 12/14/18 05:57 12/14/18 09:36 White Blood Count 4.5 L Red Blood Count 2.17 L Hemoglobin 6.6 *L Hematocrit 20.5 L Mean Corpuscular Volume 94.5 Mean Corpuscular 30.4 Hemoglobin Mean Corpuscular 32.2 Hemoglobin Concent Red Cell Distribution 18.6 H Width Platelet Count 21 *L Mean Platelet Volume Immature Granulocytes % 0.400 Neutrophils % Segmented Neutrophils 79 H % (Manual) Band Neutrophils % 8 H (Manual) Lymphocytes % Lymphocytes % (Manual) 11 L Monocytes % Monocytes % (Manual) 2 Eosinophils % Basophils % Nucleated Red Blood 0.0 Cells % Immature Granulocytes # 0.020 Neutrophils # Neutrophils # (Manual) 3.6 Band Neutrophils # 0.3 Lymphocytes (Manual) 0.4 L Lymphocytes # Monocytes # Monocytes # (Manual) 0.0 L Eosinophils # Basophils # Nucleated Red Blood Cells # Platelet Estimate DECREASED Giant Platelets 15 H Anisocytosis 2+ Macrocytosis 2+ Prothrombin Time 16.6 H Prothrombin Time Ratio 1.3 INR International 1.33 Normalized Ratio Activated 34.0 Partial Thromboplast Time Lactic Acid Level 3.3 *H Sodium Level 141 Potassium Level 3.3 L Chloride Level 107 Carbon Dioxide Level 21 Anion Gap 13 Blood Urea Nitrogen 53 H Creatinine 1.08 H Est Glomerular Filtrat 52 L Rate mL/min Glucose Level 99 Calcium Level 9.0 Bedside Glucose 83 114 Medications Current Medications Ondansetron HCl (Zofran Inj) 4 mg Q6H PRN IV NAUSEA AND/OR VOMITING Last administered on 12/11/18at 06:53; Admin Dose 4 MG; Start 11/21/18 at 05:30 Albuterol/ Ipratropium (Duoneb) 3 ml Q2H RESP THERAPY PRN NEB SHORTNESS OF BREATH; Start 11/21/18 at 05:30 Caspofungin 50 mg/ Sodium Chloride 250 ml @ 250 mls/hr Q24H IVPB Last administered on 12/13/18at 12:45; Admin Dose 250 MLS/HR; Start 11/24/18 at 13:00 Miscellaneous Information 1 ea NOTE XX ; Start 11/23/18 at 13:30 Glucose (Glutose) 15 gm Q15M PRN PO DECREASED GLUCOSE; Start 11/23/18 at 13:30 Glucose (Glutose) 22.5 gm Q15M PRN PO DECREASED GLUCOSE; Start 11/23/18 at 13:30 Dextrose (D50w Syringe) 25 ml Q15M PRN IV DECREASED GLUCOSE Last administered on 12/09/18at 13:59; Admin Dose 25 ML; Start 11/23/18 at 13:30 Dextrose (D50w Syringe) 50 ml Q15M PRN IV DECREASED GLUCOSE Last administered on 12/10/18at 13:14; Admin Dose 50 ML; Start 11/23/18 at 13:30 Glucagon (Glucagen) 1 mg Q15M PRN IM DECREASED GLUCOSE; Start 11/23/18 at 13:30 Glucose (Glutose) 15 gm Q15M PRN BUCCAL DECREASED GLUCOSE; Start 11/23/18 at 13:30 Phenylephrine HCl 80 mg/Dextrose 250 ml @ 18.75 mls/ hr TITRATE IV ; Start 11/24/18 at 00:00 Alteplase, Recombinant (Cathflo (Activase)) 2 mg MAY REPEAT X1 PRN CATHETER IF CATHETER REMAINS OCCULUDED Last administered on 12/02/18 15:47; Admin Dose 2 MG; Start 11/26/18 at 03:00 Albumin Human 100 ml @ 100 mls/hr DURING DIALYSIS PRN IV HYPOTENSION DURING HD Last administered on 12/12/18 16:40; Admin Dose 100 MLS/HR; Start 11/26/18 at 14:00 Levothyroxine Sodium (Synthroid) 75 mcg BEFORE BREAKFAST NGT Last administered on 12/14/18 06:00; Admin Dose 75 MCG; Start 11/29/18 at 07:00 Sodium Chloride 154 meq/Dextrose 1,038.5 ml @ 40 mls/hr Q24H IV Last administered on 12/11/18 16:17; Admin Dose 40 MLS/HR; Start 11/30/18 at 10:00 Collagenase (Santyl) 1 applic DAILY TOP Last administered on 12/14/18 09:01; Admin Dose 1 APPLIC; Start 12/01/18 at 16:30 Amiodarone HCl (Cordarone) 200 mg BID NGT Last administered on 12/12/18 21:18; Admin Dose 200 MG; Start 12/03/18 at 21:00 Acetaminophen (Tylenol Liquid) 650 mg Q6H PRN NGT PAIN LEVEL 1-3 OR FEVER; Start 12/06/18 at 09:00 Famotidine (Pepcid) 20 mg DAILY NGT Last administered on 12/14/18 09:01; Admin Dose 20 MG; Start 12/06/18 at 09:00 Folic Acid (Folic Acid) 1 mg DAILY NGT Last administered on 12/14/18 09:01; Admin Dose 1 MG; Start 12/06/18 at 09:00 Midodrine (Proamatine) 5 mg TID@,13,17 GTB Last administered on 12/14/18 09:03; Admin Dose 5 MG; Start 12/07/18 at 09:00 Norepinephrine 32 mg/Dextrose 250 ml @ 0.47 mls/hr TITRATE IV Last administered on 12/12/18 09:48; Admin Dose 0.47 MLS/HR; Start 12/08/18 at 09:00 Epoetin Margarito-epbx (RETACRIT(esrd)) 10,000 unit MoWeFr@1700 SC Last administered on 12/11/18 18:42; Admin Dose 10,000 UNIT; Start 12/11/18 at 17:00 Eye Lubricant (Artificial Tears Oph) 2 drop QID BOTH EYES Last administered on 12/14/18 09:02; Admin Dose 2 DROP; Start 12/10/18 at 09:00 Methylprednisolone Sodium Succinate (Solu-Medrol) 40 mg Q6 IV Last administered on 12/14/18 06:00; Admin Dose 40 MG; Start 12/10/18 at 18:00 Diagnostic Test (Pha) (Accu-Chek) 1 ea Q4H XX Last administered on 12/13/18 17:53; Admin Dose 1 EA; Start 12/11/18 at 13:00 Ertapenem 1 gm/ Sodium Chloride 100 ml @ 200 mls/hr Q24H IVPB Last administered on 12/13/18 15:18; Admin Dose 200 MLS/HR; Start 12/11/18 at 14:00 Dextrose/Sodium Chloride 1,000 ml @ 40 mls/hr Q24H IV Last administered on 12/14/18 00:58; Admin Dose 40 MLS/HR; Start 12/14/18 at 00:01 Assessment/Plan Hospital Course (Demo Recall) IMP: 1. Septic Shock 2. Gram Negative Bacteremia 3. Vent Dependent Resp Failure/Failure to wean 4. ESRD on HD 5. Cardiomyopathy 6. Severe Thrombocytopenia 7. Anemia RECS: 1. Trach scheduled for today Will need platelets prior. 2. Minimize sedation 3. Titrate pressors to MAP > 65 mm Hg 4. HD/UF per Renal 5. Abx per ID 40 min cc time NINA MORRIS MD, [facility] December 14, 2018 11:14
--- NOTE | 2018-12-14 14:37 | CONS ---
Assessment/Plan Assessment/Plan Hospital Course (Demo Recall) Remains unchanged comfortable on vent no fevers patient had been hypothermic and is on bear hugger WBC 4.5 H&H 6.6 and 20.5 platelets 21 Chest x-ray this morning revealed multiple centrally lucent lesions in the right lung that may represent cavitary lesions. Please see full report in the chart Antimicrobials: Cancidas, Invanz Microbiology: Blood culture on admission grew Klebsiella ESBL, repeat blood cultures negative, left thigh wound culture grew Klebsiella ESBL and Leah albicans Allergy: Zosyn, vancomycin Indwelling: Right upper thigh Davie catheter, left femoral triple-lumen catheter, endotracheal tube, orogastric tube, midline Physical examination: This is a chronically ill-appearing cachectic middle-aged woman who is laying comfortably in bed. Head atraumatic normocephalic. Neck is supple. Chest rise symmetrical. Breath sounds diminished bases. Heart: S1-S2, irreg. Abdomen distended. Bowel sounds hypoactive. Extremities with bilateral edema, cyanotic, multiple ecchymotic areas and bruises, left upper thigh dressing present is Assessment: 1. Sepsis 2. Acute hypoxemic respiratory failure secondary to CHF exacerbation/probable pneumonia 3. Klebsiella ESBL bacteremia likely 2 to #4 4. 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 End-stage renal disease, hemodialysis dependent 6. Atrial fibrillation/PPM 7. Unstageable sacral decubitus 8. History of peritoneal dialysis with peritoneal dialysis still in place 9. Ascites status post paracentesis 3 weeks ago 10. Failure to thrive 11. Progressive thrombocytopenia 12. B mastoiditis and acute sinusitis Plan: Remains unchanged, off pressors, continue antibiotics indefinitely for infected graft, pending trach f/u pulmonary rec-s Consultation Date/Type/Reason Admit Date/Time Nov 21, 2018 at 04:53 Initial Consult Date Type of Consult id Requesting Provider: RIKA STOCK Date/Time of Note DATE: 12/14/18 TIME: 14:36 Exam/Review of Systems Exam Vitals Vital Signs Date Temp Pulse Resp B/P (MAP) Pulse Ox O2 O2 Flow FiO2 Time Delivery Rate 12/14/18 66 20 100 30 13:15 12/14/18 140/84 Mechanical 13:09 (102) Ventilator T Tube 12/14/18 95.0 08:00 Intake and Output 12/13/18 12/13/18 12/14/18 1515:00 23:00 07:00 IntakeIntake Total 640.47 ml 450 ml 235 ml OutputOutput Total 0 ml 375 ml BalanceBalance 640.47 ml 75 ml 235 ml Results Result Diagram: 12/14/18 0537 12/14/18 0538 Results 24hrs Laboratory Tests Test 12/13/18 17:52 12/13/18 21:00 12/14/18 01:02 12/14/18 05:37 Bedside Glucose 112 102 138 White Blood Count 4.5 L Red Blood Count 2.17 L Hemoglobin 6.6 *L Hematocrit 20.5 L Mean Corpuscular Volume 94.5 Mean Corpuscular 30.4 Hemoglobin Mean Corpuscular 32.2 Hemoglobin Concent Red Cell Distribution 18.6 H Width Platelet Count 21 *L Mean Platelet Volume Immature Granulocytes % 0.400 Neutrophils % Segmented Neutrophils 79 H % (Manual) Band Neutrophils % 8 H (Manual) Lymphocytes % Lymphocytes % (Manual) 11 L Monocytes % Monocytes % (Manual) 2 Eosinophils % Basophils % Nucleated Red Blood 0.0 Cells % Immature Granulocytes # 0.020 Neutrophils # Neutrophils # (Manual) 3.6 Band Neutrophils # 0.3 Lymphocytes (Manual) 0.4 L Lymphocytes # Monocytes # Monocytes # (Manual) 0.0 L Eosinophils # Basophils # Nucleated Red Blood Cells # Platelet Estimate DECREASED Giant Platelets 15 H Anisocytosis 2+ Macrocytosis 2+ Prothrombin Time 16.6 H Prothrombin Time Ratio 1.3 INR International 1.33 Normalized Ratio Activated 34.0 Partial Thromboplast Time Lactic Acid Level 3.3 *H Test 12/14/18 05:38 12/14/18 05:57 12/14/18 09:36 12/14/18 13:41 Sodium Level 141 Potassium Level 3.3 L Chloride Level 107 Carbon Dioxide Level 21 Anion Gap 13 Blood Urea Nitrogen 53 H Creatinine 1.08 H Est Glomerular Filtrat 52 L Rate mL/min Glucose Level 99 Calcium Level 9.0 Bedside Glucose 83 114 77 Medications Medication Current Medications Ondansetron HCl (Zofran Inj) 4 mg Q6H PRN IV NAUSEA AND/OR VOMITING Last administered on 12/11/18at 06:53; Admin Dose 4 MG; Start 11/21/18 at 05:30 Albuterol/ Ipratropium (Duoneb) 3 ml Q2H RESP THERAPY PRN NEB SHORTNESS OF BREATH; Start 11/21/18 at 05:30 Caspofungin 50 mg/ Sodium Chloride 250 ml @ 250 mls/hr Q24H IVPB Last administered on 12/13/18at 12:45; Admin Dose 250 MLS/HR; Start 11/24/18 at 13:00 Miscellaneous Information 1 ea NOTE XX ; Start 11/23/18 at 13:30 Glucose (Glutose) 15 gm Q15M PRN PO DECREASED GLUCOSE; Start 11/23/18 at 13:30 Glucose (Glutose) 22.5 gm Q15M PRN PO DECREASED GLUCOSE; Start 11/23/18 at 13:30 Dextrose (D50w Syringe) 25 ml Q15M PRN IV DECREASED GLUCOSE Last administered on 12/09/18at 13:59; Admin Dose 25 ML; Start 11/23/18 at 13:30 Dextrose (D50w Syringe) 50 ml Q15M PRN IV DECREASED GLUCOSE Last administered on 12/10/18at 13:14; Admin Dose 50 ML; Start 11/23/18 at 13:30 Glucagon (Glucagen) 1 mg Q15M PRN IM DECREASED GLUCOSE; Start 11/23/18 at 13:30 Glucose (Glutose) 15 gm Q15M PRN BUCCAL DECREASED GLUCOSE; Start 11/23/18 at 13:30 Phenylephrine HCl 80 mg/Dextrose 250 ml @ 18.75 mls/ hr TITRATE IV ; Start 11/24/18 at 00:00 Alteplase, Recombinant (Cathflo (Activase)) 2 mg MAY REPEAT X1 PRN CATHETER IF CATHETER REMAINS OCCULUDED Last administered on 12/02/18at 15:47; Admin Dose 2 MG; Start 11/26/18 at 03:00 Albumin Human 100 ml @ 100 mls/hr DURING DIALYSIS PRN IV HYPOTENSION DURING HD Last administered on 12/12/18 16:40; Admin Dose 100 MLS/HR; Start 11/26/18 at 1 4:00 Levothyroxine Sodium (Synthroid) 75 mcg BEFORE BREAKFAST NGT Last administered on 12/14/18 06:00; Admin Dose 75 MCG; Start 11/29/18 at 07:00 Sodium Chloride 154 meq/Dextrose 1,038.5 ml @ 40 mls/hr Q24H IV Last administered on 12/11/18 16:17; Admin Dose 40 MLS/HR; Start 11/30/18 at 10:00 Collagenase (Santyl) 1 applic DAILY TOP Last administered on 12/14/18 09:01; Admin Dose 1 APPLIC; Start 12/01/18 at 16:30 Amiodarone HCl (Cordarone) 200 mg BID NGT Last administered on 12/12/18 21:18; Admin Dose 200 MG; Start 12/03/18 at 21:00 Acetaminophen (Tylenol Liquid) 650 mg Q6H PRN NGT PAIN LEVEL 1-3 OR FEVER; Start 12/06/18 at 09:00 Famotidine (Pepcid) 20 mg DAILY NGT Last administered on 12/14/18 09:01; Admin Dose 20 MG; Start 12/06/18 at 09:00 Folic Acid (Folic Acid) 1 mg DAILY NGT Last administered on 12/14/18 09:01; Admin Dose 1 MG; Start 12/06/18 at 09:00 Midodrine (Proamatine) 5 mg TID@,17 GTB Last administered on 12/14/18 09:03; Admin Dose 5 MG; Start 12/07/18 at 09:00 Norepinephrine 32 mg/Dextrose 250 ml @ 0.47 mls/hr TITRATE IV Last administered on 12/12/18 09:48; Admin Dose 0.47 MLS/HR; Start 12/08/18 at 09:00 Epoetin Margarito-epbx (RETACRIT(esrd)) 10,000 unit MoWeFr@1700 SC Last administered on 12/11/18 18:42; Admin Dose 10,000 UNIT; Start 12/11/18 at 17:00 Eye Lubricant (Artificial Tears Oph) 2 drop QID BOTH EYES Last administered on 12/14/18 09:02; Admin Dose 2 DROP; Start 12/10/18 at 09:00 Methylprednisolone Sodium Succinate (Solu-Medrol) 40 mg Q6 IV Last administered on 12/14/18 06:00; Admin Dose 40 MG; Start 12/10/18 at 18:00 Diagnostic Test (Pha) (Accu-Chek) 1 ea Q4H XX Last administered on 12/14/18 13:36; Admin Dose 1 EA; Start 12/11/18 at 13:00 Ertapenem 1 gm/ Sodium Chloride 100 ml @ 200 mls/hr Q24H IVPB Last administered on 12/13/18at 15:18; Admin Dose 200 MLS/HR; Start 12/11/18 at 14:00 Dextrose/Sodium Chloride 1,000 ml @ 40 mls/hr Q24H IV Last administered on 12/14/18at 00:58; Admin Dose 40 MLS/HR; Start 12/14/18 at 00:01 KELSIE ELY NP December 14, 2018 14:37
[2018-12-14] MEDS: SODIUM CHLORIDE 23.4% 154 MEQ in DEXTROSE 10% 1,000 ML IV SCH (15:00)
[2018-12-14] MEDS: CASPOFUNGIN 50 MG in SOD CHLORIDE 0.9% 250 ML IVPB SCH (15:00)
[2018-12-14] MEDS: ERTAPENEM SODIUM 1 GM in SOD CHLORIDE 0.9% 100 ML IVPB SCH (15:03)
--- NOTE | 2018-12-14 15:04 | PN ---
Date/Time of Note Date/Time of Note DATE: 12/14/18 TIME: 15:02 Assessment/Plan VTE Prophylaxis Risk score (from Ns)>0 risk: 12 SCD applied (from [facility] [place]): Yes Pharmacological prophylaxis: NA/contraindicated Pharm contraindication: blood coag disorder Lines/Catheters Urinary Cath still in place: No Assessment/Plan Hospital Course 58 yo female with ESRD, cirrhosis, DMII presents with hypoglycemia, leg infection. Suffered cardiac and respiratory arrest, now intubated Acute respiratory failure: - MV per pulm - Trach planned for today - s/p G tube Septic shock: - Antibiotics per ID Hypoglycemia: No history of diabetes and patient not on any insulin or sulfonylurea or any other diabetic medication - Continue IV dextrose and tube feeds Left lower extremity wound - Antibiotics per ID -Venous study was negative for DVT A Fib: - Amiodarone ESRD with fluid overload - HD per nephrology Hypothyroidism: Continue Synthroid History of pacemaker: No acute issue Prophylaxis: SCDs Result Diagram: 12/14/18 0537 12/14/18 0538 Results 24hrs Laboratory Tests Test 12/13/18 17:52 12/13/18 21:00 12/14/18 01:02 12/14/18 05:37 Bedside Glucose 112 102 138 White Blood Count 4.5 L Red Blood Count 2.17 L Hemoglobin 6.6 *L Hematocrit 20.5 L Mean Corpuscular Volume 94.5 Mean Corpuscular 30.4 Hemoglobin Mean Corpuscular 32.2 Hemoglobin Concent Red Cell Distribution 18.6 H Width Platelet Count 21 *L Mean Platelet Volume Immature Granulocytes % 0.400 Neutrophils % Segmented Neutrophils 79 H % (Manual) Band Neutrophils % 8 H (Manual) Lymphocytes % Lymphocytes % (Manual) 11 L Monocytes % Monocytes % (Manual) 2 Eosinophils % Basophils % Nucleated Red Blood 0.0 Cells % Immature Granulocytes # 0.020 Neutrophils # Neutrophils # (Manual) 3.6 Band Neutrophils # 0.3 Lymphocytes (Manual) 0.4 L Lymphocytes # Monocytes # Monocytes # (Manual) 0.0 L Eosinophils # Basophils # Nucleated Red Blood Cells # Platelet Estimate DECREASED Giant Platelets 15 H Anisocytosis 2+ Macrocytosis 2+ Prothrombin Time 16.6 H Prothrombin Time Ratio 1.3 INR International 1.33 Normalized Ratio Activated 34.0 Partial Thromboplast Time Lactic Acid Level 3.3 *H Test 12/14/18 05:38 12/14/18 05:57 12/14/18 09:36 12/14/18 13:41 Sodium Level 141 Potassium Level 3.3 L Chloride Level 107 Carbon Dioxide Level 21 Anion Gap 13 Blood Urea Nitrogen 53 H Creatinine 1.08 H Est Glomerular Filtrat 52 L Rate mL/min Glucose Level 99 Calcium Level 9.0 Bedside Glucose 83 114 77 Subjective 24 Hr Interval Summary Subjective hx not possible: pt non-verbal Exam/Review of Systems Exam Vitals Vital Signs Date Temp Pulse Resp B/P (MAP) Pulse Ox O2 O2 Flow FiO2 Time Delivery Rate 12/14/18 66 20 100 30 13:15 12/14/18 140/84 Mechanical 13:09 (102) Ventilator T Tube 12/14/18 95.0 08:00 Intake and Output 12/13/18 12/13/18 12/14/18 1515:00 23:00 07:00 IntakeIntake Total 640.47 ml 450 ml 235 ml OutputOutput Total 0 ml 375 ml BalanceBalance 640.47 ml 75 ml 235 ml Constitutional: non-verbal ENMT: intubated Respiratory: clear to auscultation Gastrointestinal: soft; No distended Musculoskeletal: nl extremities to inspection Results Results 24hrs Laboratory Tests Test 12/13/18 17:52 12/13/18 21:00 12/14/18 01:02 12/14/18 05:37 Bedside Glucose 112 102 138 White Blood Count 4.5 L Red Blood Count 2.17 L Hemoglobin 6.6 *L Hematocrit 20.5 L Mean Corpuscular Volume 94.5 Mean Corpuscular 30.4 Hemoglobin Mean Corpuscular 32.2 Hemoglobin Concent Red Cell Distribution 18.6 H Width Platelet Count 21 *L Mean Platelet Volume Immature Granulocytes % 0.400 Neutrophils % Segmented Neutrophils 79 H % (Manual) Band Neutrophils % 8 H (Manual) Lymphocytes % Lymphocytes % (Manual) 11 L Monocytes % Monocytes % (Manual) 2 Eosinophils % Basophils % Nucleated Red Blood 0.0 Cells % Immature Granulocytes # 0.020 Neutrophils # Neutrophils # (Manual) 3.6 Band Neutrophils # 0.3 Lymphocytes (Manual) 0.4 L Lymphocytes # Monocytes # Monocytes # (Manual) 0.0 L Eosinophils # Basophils # Nucleated Red Blood Cells # Platelet Estimate DECREASED Giant Platelets 15 H Anisocytosis 2+ Macrocytosis 2+ Prothrombin Time 16.6 H Prothrombin Time Ratio 1.3 INR International 1.33 Normalized Ratio Activated 34.0 Partial Thromboplast Time Lactic Acid Level 3.3 *H Test 12/14/18 05:38 12/14/18 05:57 12/14/18 09:36 12/14/18 13:41 Sodium Level 141 Potassium Level 3.3 L Chloride Level 107 Carbon Dioxide Level 21 Anion Gap 13 Blood Urea Nitrogen 53 H Creatinine 1.08 H Est Glomerular Filtrat 52 L Rate mL/min Glucose Level 99 Calcium Level 9.0 Bedside Glucose 83 114 77 Medications Medication Current Medications Ondansetron HCl (Zofran Inj) 4 mg Q6H PRN IV NAUSEA AND/OR VOMITING Last administered on 12/11/18at 06:53; Admin Dose 4 MG; Start 11/21/18 at 05:30 Albuterol/ Ipratropium (Duoneb) 3 ml Q2H RESP THERAPY PRN NEB SHORTNESS OF BREATH; Start 11/21/18 at 05:30 Caspofungin 50 mg/ Sodium Chloride 250 ml @ 250 mls/hr Q24H IVPB Last administered on 12/14/18at 15:00; Admin Dose 250 MLS/HR; Start 11/24/18 at 13:00 Miscellaneous Information 1 ea NOTE XX ; Start 11/23/18 at 13:30 Glucose (Glutose) 15 gm Q15M PRN PO DECREASED GLUCOSE; Start 11/23/18 at 13:30 Glucose (Glutose) 22.5 gm Q15M PRN PO DECREASED GLUCOSE; Start 11/23/18 at 13:30 Dextrose (D50w Syringe) 25 ml Q15M PRN IV DECREASED GLUCOSE Last administered on 12/09/18at 13:59; Admin Dose 25 ML; Start 11/23/18 at 13:30 Dextrose (D50w Syringe) 50 ml Q15M PRN IV DECREASED GLUCOSE Last administered on 12/10/18at 13:14; Admin Dose 50 ML; Start 11/23/18 at 13:30 Glucagon (Glucagen) 1 mg Q15M PRN IM DECREASED GLUCOSE; Start 11/23/18 at 13:30 Glucose (Glutose) 15 gm Q15M PRN BUCCAL DECREASED GLUCOSE; Start 11/23/18 at 13:30 Phenylephrine HCl 80 mg/Dextrose 250 ml @ 18.75 mls/ hr TITRATE IV ; Start 11/24/18 at 00:00 Alteplase, Recombinant (Cathflo (Activase)) 2 mg MAY REPEAT X1 PRN CATHETER IF CATHETER REMAINS OCCULUDED Last administered on 12/02/18 15:47; Admin Dose 2 MG; Start 11/26/18 at 03:00 Albumin Human 100 ml @ 100 mls/hr DURING DIALYSIS PRN IV HYPOTENSION DURING HD Last administered on 12/12/18 16:40; Admin Dose 100 MLS/HR; Start 11/26/18 at 14:00 Levothyroxine Sodium (Synthroid) 75 mcg BEFORE BREAKFAST NGT Last administered on 12/14/18 06:00; Admin Dose 75 MCG; Start 11/29/18 at 07:00 Sodium Chloride 154 meq/Dextrose 1,038.5 ml @ 40 mls/hr Q24H IV Last administered on 12/14/18 15:00; Admin Dose 40 MLS/HR; Start 11/30/18 at 10:00 Collagenase (Santyl) 1 applic DAILY TOP Last administered on 12/14/18 09:01; Admin Dose 1 APPLIC; Start 12/01/18 at 16:30 Amiodarone HCl (Cordarone) 200 mg BID NGT Last administered on 12/12/18 21:18; Admin Dose 200 MG; Start 12/03/18 at 21:00 Acetaminophen (Tylenol Liquid) 650 mg Q6H PRN NGT PAIN LEVEL 1-3 OR FEVER; Start 12/06/18 at 09:00 Famotidine (Pepcid) 20 mg DAILY NGT Last administered on 12/14/18 09:01; Admin Dose 20 MG; Start 12/06/18 at 09:00 Folic Acid (Folic Acid) 1 mg DAILY NGT Last administered on 12/14/18 09:01; Admin Dose 1 MG; Start 12/06/18 at 09:00 Midodrine (Proamatine) 5 mg TID@,13,17 GTB Last administered on 12/14/18 15:00; Admin Dose 5 MG; Start 12/07/18 at 09:00 Norepinephrine 32 mg/Dextrose 250 ml @ 0.47 mls/hr TITRATE IV Last administered on 12/12/18 09:48; Admin Dose 0.47 MLS/HR; Start 12/08/18 at 09:00 Epoetin Margarito-epbx (RETACRIT(esrd)) 10,000 unit MoWeFr@1700 SC Last administered on 12/11/18 18:42; Admin Dose 10,000 UNIT; Start 12/11/18 at 17:00 Eye Lubricant (Artificial Tears Oph) 2 drop QID BOTH EYES Last administered on 12/14/18 14:59; Admin Dose 2 DROP; Start 12/10/18 at 09:00 Methylprednisolone Sodium Succinate (Solu-Medrol) 40 mg Q6 IV Last administered on 12/14/18 15:00; Admin Dose 40 MG; Start 12/10/18 at 18:00 Diagnostic Test (Pha) (Accu-Chek) 1 ea Q4H XX Last administered on 12/14/18 13:36; Admin Dose 1 EA; Start 12/11/18 at 13:00 Ertapenem 1 gm/ Sodium Chloride 100 ml @ 200 mls/hr Q24H IVPB Last administered on 12/13/18 15:18; Admin Dose 200 MLS/HR; Start 12/11/18 at 14:00 Dextrose/Sodium Chloride 1,000 ml @ 40 mls/hr Q24H IV Last administered on 12/14/18 00:58; Admin Dose 40 MLS/HR; Start 12/14/18 at 00:01 RIKA STOCK December 14, 2018 15:04
[2018-12-14] MEDS ORDERED: EPOETIN ALFA-EPBX (ESRD) 10,000 UNIT/ML VIAL SC SCH (17:00)
[2018-12-14] MEDS ORDERED: ETOMIDATE 20 MG INJ ONE (17:08)
[2018-12-14] MEDS ORDERED: FENTAnyl 50 MCG/ML VIAL ONE (17:08)
[2018-12-14] MEDS ORDERED: LIDOCAINE 2% (SDV) 5 ML INJ ONE (17:08)
[2018-12-14] MEDS ORDERED: LIDOCAINE 1% (MDV) 20 ML INJ ONE (17:14)
--- NOTE | 2018-12-14 17:16 | PREAC ---
Date/Time of Note Date/Time of Note DATE: 12/14/18 TIME: 17:12 Anesthesia Eval and Record Evaluation Time Pre-Procedure Interview DATE: 12/14/18 TIME: 17:12 Age 58 Sex female NPO: 8 hrs Preoperative diagnosis respiratory failure Planned procedure Tracheostomy Past Medical History Past Medical History: Includes Cardio: HTN, Dyslipidemia, PR, CAD, CHF Endo: Diabetes, Hypothyroid Pulm: COPD Renal: ESRD on dialysis, HD last: Surgery & Anesthesia Issues No known issue Meds Anticoagulation: No Beta Brian within 24 hr: No Reason Beta Brian not given: Pt. not on B-Brian Reported Medications Folic Acid* (Folic Acid*) 1 Mg Tablet, 1 MG PO DAILY, TAB 08/10/18 Amiodarone Hcl* (Amiodarone Hcl*) 200 Mg Tablet, 200 MG PO BID, #60 TAB 08/10/18 Pantoprazole* (Protonix*) 40 Mg Tablet.dr, 40 MG PO DAILY, TAB 08/10/18 Multivit/Ca Carb/B Cmplx/Fa* (Iram-Xiomara*) 1 Tab Tab, 1 TAB PO DAILY, TAB 08/10/18 Levothyroxine Sodium* (Levoxyl*) 75 Mcg Tablet, 75 MCG PO BEFORE BREAKFAST, #30 TAB 08/10/18 Current Medications Ondansetron HCl (Zofran Inj) 4 mg Q6H PRN IV NAUSEA AND/OR VOMITING Last administered on 12/11/18at 06:53; Admin Dose 4 MG; Start 11/21/18 at 05:30 Albuterol/ Ipratropium (Duoneb) 3 ml Q2H RESP THERAPY PRN NEB SHORTNESS OF BREATH; Start 11/21/18 at 05:30 Caspofungin 50 mg/ Sodium Chloride 250 ml @ 250 mls/hr Q24H IVPB Last administered on 12/14/18at 15:00; Admin Dose 250 MLS/HR; Start 11/24/18 at 13:00 Miscellaneous Information 1 ea NOTE XX ; Start 11/23/18 at 13:30 Glucose (Glutose) 15 gm Q15M PRN PO DECREASED GLUCOSE; Start 11/23/18 at 13:30 Glucose (Glutose) 22.5 gm Q15M PRN PO DECREASED GLUCOSE; Start 11/23/18 at 13:30 Dextrose (D50w Syringe) 25 ml Q15M PRN IV DECREASED GLUCOSE Last administered on 12/09/18 13:59; Admin Dose 25 ML; Start 11/23/18 at 13:30 Dextrose (D50w Syringe) 50 ml Q15M PRN IV DECREASED GLUCOSE Last administered on 12/10/18 13:14; Admin Dose 50 ML; Start 11/23/18 at 13:30 Glucagon (Glucagen) 1 mg Q15M PRN IM DECREASED GLUCOSE; Start 11/23/18 at 13:30 Glucose (Glutose) 15 gm Q15M PRN BUCCAL DECREASED GLUCOSE; Start 11/23/18 at 13:30 Phenylephrine HCl 80 mg/Dextrose 250 ml @ 18.75 mls/ hr TITRATE IV ; Start 11/24/18 at 00:00 Alteplase, Recombinant (Cathflo (Activase)) 2 mg MAY REPEAT X1 PRN CATHETER IF CATHETER REMAINS OCCULUDED Last administered on 12/02/18 15:47; Admin Dose 2 MG; Start 11/26/18 at 03:00 Albumin Human 100 ml @ 100 mls/hr DURING DIALYSIS PRN IV HYPOTENSION DURING HD Last administered on 12/12/18 16:40; Admin Dose 100 MLS/HR; Start 11/26/18 at 14:00 Levothyroxine Sodium (Synthroid) 75 mcg BEFORE BREAKFAST NGT Last administered on 12/14/18 06:00; Admin Dose 75 MCG; Start 11/29/18 at 07:00 Sodium Chloride 154 meq/Dextrose 1,038.5 ml @ 40 mls/hr Q24H IV Last administered on 12/14/18 15:00; Admin Dose 40 MLS/HR; Start 11/30/18 at 10:00 Collagenase (Santyl) 1 applic DAILY TOP Last administered on 12/14/18 09:01; Admin Dose 1 APPLIC; Start 12/01/18 at 16:30 Amiodarone HCl (Cordarone) 200 mg BID NGT Last administered on 12/12/18 21:18; Admin Dose 200 MG; Start 12/03/18 at 21:00 Acetaminophen (Tylenol Liquid) 650 mg Q6H PRN NGT PAIN LEVEL 1-3 OR FEVER; Start 12/06/18 at 09:00 Famotidine (Pepcid) 20 mg DAILY NGT Last administered on 12/14/18 09:01; Admin Dose 20 MG; Start 12/06/18 at 09:00 Folic Acid (Folic Acid) 1 mg DAILY NGT Last administered on 12/14/18 09:01; Admin Dose 1 MG; Start 12/06/18 at 09:00 Midodrine (Proamatine) 5 mg TID@09,13,17 GTB Last administered on 12/14/18 15:00; Admin Dose 5 MG; Start 12/07/18 at 09:00 Norepinephrine 32 mg/Dextrose 250 ml @ 0.47 mls/hr TITRATE IV Last administered on 12/12/18 09:48; Admin Dose 0.47 MLS/HR; Start 12/08/18 at 09:00 Epoetin Margarito-epbx (RETACRIT(esrd)) 10,000 unit MoWeFr@1700 SC Last administered on 12/11/18 18:42; Admin Dose 10,000 UNIT; Start 12/11/18 at 17:00 Eye Lubricant (Artificial Tears Oph) 2 drop QID BOTH EYES Last administered on 12/14/18 14:59; Admin Dose 2 DROP; Start 12/10/18 at 09:00 Methylprednisolone Sodium Succinate (Solu-Medrol) 40 mg Q6 IV Last administered on 12/14/18 15:00; Admin Dose 40 MG; Start 12/10/18 at 18:00 Diagnostic Test (Pha) (Accu-Chek) 1 ea Q4H XX Last administered on 12/14/18 13:36; Admin Dose 1 EA; Start 12/11/18 at 13:00 Ertapenem 1 gm/ Sodium Chloride 100 ml @ 200 mls/hr Q24H IVPB Last administered on 12/14/18 15:03; Admin Dose 200 MLS/HR; Start 12/11/18 at 14:00 Dextrose/Sodium Chloride 1,000 ml @ 40 mls/hr Q24H IV Last administered on 12/14/18 00:58; Admin Dose 40 MLS/HR; Start 12/14/18 at 00:01 Meds reviewed: Yes Allergies Coded Allergies: Penicillins (Verified Allergy, Unknown, 08/10/18) tazobactam (Verified Allergy, Unknown, 08/10/18) vancomycin (Verified Allergy, Unknown, 08/10/18) Allergies Reviewed: Yes Labs/Studies Labs Reviewed: Reviewed by anesthesiologist Result Diagram: 12/14/18 0537 12/14/18 0538 Laboratory Tests 12/14/18 05:37 12/14/18 05:38 Blood Bank Test 12/14/18 05:37 Antibody Screen NEGATIVE Blood Product Summary Counts Blood Type O POSITIVE Crossmatch Red Blood Cells test: N/A Studies: ECG Pre-procedure Exam Last vitals Vital Signs Date Temp Pulse Resp B/P (MAP) Pulse Ox O2 O2 Flow FiO2 Time Delivery Rate 12/14/18 56 16:00 12/14/18 20 100 30 15:35 12/14/18 140/84 Mechanical 13:09 (102) Ventilator T Tube 12/14/18 95.0 08:00 Airway: Adequate mouth opening, Adequate thyromental dist Mallampati: Mallampati II Teeth: Normal Lung: Abnormal (S/P possible aspiration, respiratory failure) Heart: Abnormal (CHF, Cardiomyopathy) ASA Physical Status ASA physical status: 4 Emergency: None Pre-operative Attestations Prior to commencing anesthesia and surgery, the patient was re-evaluated, there was verification of: *The patient's identity *The results of appropriate recent lab work and preoperative vital signs *The above evaluation not changing prior to induction *Anesthetic plan, risk benefits, alternative and complications discussed with patient/family; questions answered; patient/family understands, accepts and wishes to proceed. KACI MELTON MD December 14, 2018 17:16
--- NOTE | 2018-12-14 17:57 | OPR ---
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 Anesthesia Type: general Estimated Blood Loss: minimal Transfusion none Specimen None Grafts/Implants none Complications none Disposition: other Procedure Description Patient was placed in supine position prepped and draped in usual sterile fashion timeout was called Access was gained in the to the trachea guidewire was advanced without any difficulty subcutaneous tissues were dilated The trachea and the subcutaneous tissues were dilated using progressively larger dilators endotracheal tube was removed 8 cuffed tracheostomy tube advanced into the trachea secured to skin using four 2-0 silk sutures and a trach tie protective foam pad was applied patient tolerated procedure well TAE PAN MD December 14, 2018 17:57
--- NOTE | 2018-12-14 18:00 | PAC ---
Date/Time of Note Date/Time of Note DATE: 12/14/18 TIME: 17:59 Post-Anesthesia Notes Post-Anesthesia Note Last documented vital signs Vital Signs Date Temp Pulse Resp B/P (MAP) Pulse Ox O2 O2 Flow FiO2 Time Delivery Rate 12/14/18 56 16:00 12/14/18 20 100 30 15:35 12/14/18 140/84 Mechanical 13:09 (102) Ventilator T Tube 12/14/18 95.0 08:00 Activity: WNL Respiratory function: WNL Cardiovascular function: WNL Mental status: Baseline Pain reasonably controlled: Yes Hydration appropriate: Yes Nausea/Vomiting absent: Yes Comments BP:140/67. P:64, Spo2:100%, T:97,8 KACI MELTON MD December 14, 2018 18:00
[2018-12-14] MEDS: EPOETIN ALFA-EPBX (ESRD) 10,000 UNIT/ML VIAL SC SCH (19:07)
[2018-12-15] VITALS (34 sets, daily range): BP systolic 104–147; BP diastolic 63–118; PULSE 53–68; RESP 5–23
[2018-12-15] MEDS: METHYLPREDNISOLONE 40 MG INJ IV SCH ×4 (00:53→18:34)
[2018-12-15] MEDS: DEXTROSE 10%-0.2% NACL 1,000 ML IV SCH (00:54)
[2018-12-15] MEDS: ACCU-CHEK XX SCH ×6 (00:54→20:56)
[2018-12-15] MEDS ORDERED: LORAZEPAM 2 MG INJ IV ONE (01:30)
--- NOTE | 2018-12-15 08:04 | PN ---
DATE: 12/15/2018 SUBJECTIVE: The patient remains in serious condition. The patient is status post trach placement ye day. The patient had hemodialysis yesterday with approximately 500 mL removed. No other acute e vents noted. No hemoptysis, hematemesis or hematochezia. OBJECTIVE: VITAL SIGNS: Blood pressure is 147/118, respirations 16, pulse 62, temperature 94.0. GENERAL: The patient looks frail, weak, and cachectic. HEENT: Head is normocephalic. NECK: Supple. HEART: Regular rate. LUNGS: Show diminished breath sounds at the base. ABDOMEN: Soft, nontender to palpation. No rebound or guarding. EXTREMITIES: Negative for clubbing, cyanosis. Positive edema, diffuse anasarca. DERMATOLOGIC: No rashes. MUSCULOSKELETAL: No joint effusion. NEUROLOGIC: No change in exam. MEDICATIONS: Reviewed. LABORATORY DATA: From 12/15/2018 was reviewed. ASSESSMENT AND PLAN: 1. End-stage renal disease. The patient had hemodialysis yesterday. Plan is for dialysis again cherie . 2. Access. The patient has a noted Perm-A-Cath in left femoral vein. Currently working appropriate ly. Continue to monitor. No plans for exchange. 3. Volume overload with diffuse anasarca. Continue ultrafiltration with dialysis as tolerated. 4. Sepsis, status post shock. The patient is currently on pressor support. Continue antibiotic the rapy. 5. Anemia. Continue to monitor hemoglobin and hematocrit levels. Continue Epogen. 6. Mineral bone disorder. Monitor calcium and phosphorus levels. 7. Ventilator-dependent respiratory failure, status post trach. Vent settings and ABG was reviewed. Continue to monitor. 8. Acute encephalopathy, etiology is toxic metabolic. 9. Ascites. The patient is status post paracentesis. 10. Hypothyroidism. Continue Synthroid. 11. Dysphagia. Continue tube feeding. 12. Arrhythmia. Continue amiodarone. 13. Status post cardiopulmonary arrest. 14. Lower extremity wounds. Continue wound care. Dictated By: SARIKA JOINER DO NR/NTS Conf#: [id number] DID#: [id number] CC: MANDY BATES MD; RIKA STOCK MD; LORRAINE JOHNSON MD;*EndCC*
[2018-12-15] MEDS: MIDODRINE 5 MG TAB GTB SCH ×3 (08:55→18:33)
[2018-12-15] MEDS: LEVOTHYROXINE 75 MCG TAB NGT SCH (08:55)
[2018-12-15] MEDS: FAMOTIDINE 20 MG TAB NGT SCH (08:55)
[2018-12-15] MEDS: FOLIC ACID 1 MG TAB NGT SCH (08:55)
[2018-12-15] MEDS: ARTIFICIAL TEARS 15 ML OPH BOTH EYES SCH ×4 (08:56→20:55)
[2018-12-15] MEDS: COLLAGENASE 5 GM (UD JAR) TOP SCH (08:56)
[2018-12-15] MEDS: BALSAM PERU/CASTOR OIL 60 GM TUBE TOP SCH ×2 (08:56→20:56)
[2018-12-15] MEDS: AMIODARONE 200 MG TAB NGT SCH ×2 (09:00→20:56)
--- NOTE | 2018-12-15 09:15 | CONS ---
Consult Date/Type/Reason Admit Date/Time Nov 21, 2018 at 04:53 Initial Consult Date Type of Consult Pulmonary Requesting Provider: RIKA STOCK Date/Time of Note DATE: 12/15/18 TIME: 09:14 Subjective Status post tracheostomy yesterday. Decreased oropharyngeal and endotracheal bleeding. Objective Vital Signs Date Temp Pulse Resp B/P (MAP) Pulse Ox O2 O2 Flow FiO2 Time Delivery Rate 12/15/18 58 08:00 12/15/18 18 100 33 04:57 12/15/18 94.0 147/118 04:00 (128) 12/14/18 Mechanical 20:00 Ventilator Intake and Output 12/14/18 12/14/18 12/15/18 1515:00 23:00 07:00 IntakeIntake Total 410 ml 500 ml 240 ml OutputOutput Total 1400 ml 50 ml BalanceBalance -990 ml 450 ml 240 ml Exam GENERAL: Frail cachectic lady on mechanical ventilation via new tracheostomy. VITAL SIGNS: per chart NECK: Supple. No JVD or lymphadenopathy. CARDIAC EXAM: S1, S2. No added sounds or murmurs. CHEST: clear bilaterally, No added sounds, rales or wheezes ABDOMEN: Soft, nontender. No guarding or rebound. EXTREMITIES: No cyanosis, clubbing or edema. NEUROLOGIC: Generalized weakness. No focal deficits. Vent Setting Ventilator Support Mode: AC, VC plus Fraction of Inspired Oxygen pe: 33 Positive End Expiratory Pressu: 5.0 Results/Medications Result Diagram: 12/15/18 0510 12/15/18 0510 Results 24 hrs Laboratory Tests Test 12/14/18 09:36 12/14/18 13:41 12/14/18 18:38 12/14/18 21:06 Bedside Glucose 114 77 143 130 Test 12/15/18 00:55 12/15/18 04:50 12/15/18 05:08 12/15/18 05:10 Bedside Glucose 110 102 Lab Scanned BLOOD TRANSFUSIO Report N White Blood Count 6.7 # Red Blood Count 3.91 #L Hemoglobin 12.0 # Hematocrit 36.1 #L Mean Corpuscular 92.3 Volume Mean Corpuscular 30.7 Hemoglobin Mean Corpuscular 33.2 Hemoglobin Concen t Red Cell 16.3 H Distribution Width Platelet Count 18 *L Mean Platelet Volume Immature 0.400 Granulocytes % Neutrophils % Segmented 85 H Neutrophils % (Manual) Band Neutrophils 11 H % (Manual) Lymphocytes % Lymphocytes % 2 L (Manual) Monocytes % Monocytes % 2 (Manual) Eosinophils % Basophils % Nucleated Red 1 H Blood Cells % Immature 0.030 Granulocytes # Neutrophils # Neutrophils # 5.7 (Manual) Band Neutrophils 0.7 H # Lymphocytes 0.1 L (Manual) Lymphocytes # Monocytes # Monocytes # 0.1 L (Manual) Eosinophils # Basophils # Nucleated Red Blood Cells # Platelet Estimate SIG DECREASED Polychromasia 1+ Hypochromasia 1+ Poikilocytosis 2+ Anisocytosis 1+ Macrocytosis 1+ Sodium Level 140 Potassium Level 4.3 Chloride Level 107 Carbon Dioxide 23 Level Anion Gap 10 Blood Urea 41 #H Nitrogen Creatinine 0.90 Est Glomerular > 60 Filtrat Rate mL/min Glucose Level 108 Calcium Level 8.8 Phosphorus Level 4.0 Magnesium Level 2.0 Medications Current Medications Ondansetron HCl (Zofran Inj) 4 mg Q6H PRN IV NAUSEA AND/OR VOMITING Last administered on 12/11/18at 06:53; Admin Dose 4 MG; Start 11/21/18 at 05:30 Albuterol/ Ipratropium (Duoneb) 3 ml Q2H RESP THERAPY PRN NEB SHORTNESS OF BREATH; Start 11/21/18 at 05:30 Caspofungin 50 mg/ Sodium Chloride 250 ml @ 250 mls/hr Q24H IVPB Last administered on 12/14/18at 15:00; Admin Dose 250 MLS/HR; Start 11/24/18 at 13:00 Miscellaneous Information 1 ea NOTE XX ; Start 11/23/18 at 13:30 Glucose (Glutose) 15 gm Q15M PRN PO DECREASED GLUCOSE; Start 11/23/18 at 13:30 Glucose (Glutose) 22.5 gm Q15M PRN PO DECREASED GLUCOSE; Start 11/23/18 at 13:30 Dextrose (D50w Syringe) 25 ml Q15M PRN IV DECREASED GLUCOSE Last administered on 12/09/18at 13:59; Admin Dose 25 ML; Start 11/23/18 at 13:30 Dextrose (D50w Syringe) 50 ml Q15M PRN IV DECREASED GLUCOSE Last administered on 12/10/18at 13:14; Admin Dose 50 ML; Start 11/23/18 at 13:30 Glucagon (Glucagen) 1 mg Q15M PRN IM DECREASED GLUCOSE; Start 11/23/18 at 13:30 Glucose (Glutose) 15 gm Q15M PRN BUCCAL DECREASED GLUCOSE; Start 11/23/18 at 13:30 Phenylephrine HCl 80 mg/Dextrose 250 ml @ 18.75 mls/ hr TITRATE IV ; Start 11/24/18 at 00:00 Alteplase, Recombinant (Cathflo (Activase)) 2 mg MAY REPEAT X1 PRN CATHETER IF CATHETER REMAINS OCCULUDED Last administered on 12/02/18 15:47; Admin Dose 2 MG; Start 11/26/18 at 03:00 Albumin Human 100 ml @ 100 mls/hr DURING DIALYSIS PRN IV HYPOTENSION DURING HD Last administered on 12/12/18 16:40; Admin Dose 100 MLS/HR; Start 11/26/18 at 14:00 Levothyroxine Sodium (Synthroid) 75 mcg BEFORE BREAKFAST NGT Last administered on 12/15/18 08:55; Admin Dose 75 MCG; Start 11/29/18 at 07:00 Sodium Chloride 154 meq/Dextrose 1,038.5 ml @ 40 mls/hr Q24H IV Last administered on 12/14/18 15:00; Admin Dose 40 MLS/HR; Start 11/30/18 at 10:00 Collagenase (Santyl) 1 applic DAILY TOP Last administered on 12/15/18 08:56; Admin Dose 1 APPLIC; Start 12/01/18 at 16:30 Amiodarone HCl (Cordarone) 200 mg BID NGT Last administered on 12/12/18 21:18; Admin Dose 200 MG; Start 12/03/18 at 21:00 Acetaminophen (Tylenol Liquid) 650 mg Q6H PRN NGT PAIN LEVEL 1-3 OR FEVER; Start 12/06/18 at 09:00 Famotidine (Pepcid) 20 mg DAILY NGT Last administered on 12/15/18 08:55; Admin Dose 20 MG; Start 12/06/18 at 09:00 Folic Acid (Folic Acid) 1 mg DAILY NGT Last administered on 12/15/18 08:55; Admin Dose 1 MG; Start 12/06/18 at 09:00 Midodrine (Proamatine) 5 mg TID@,13,17 GTB Last administered on 12/15/18 08:55; Admin Dose 5 MG; Start 12/07/18 at 09:00 Norepinephrine 32 mg/Dextrose 250 ml @ 0.47 mls/hr TITRATE IV Last administered on 12/12/18 09:48; Admin Dose 0.47 MLS/HR; Start 12/08/18 at 09:00 Epoetin Margarito-epbx (RETACRIT(esrd)) 10,000 unit MoWeFr@1700 SC Last administered on 12/14/18 19:07; Admin Dose 10,000 UNIT; Start 12/11/18 at 17:00 Eye Lubricant (Artificial Tears Oph) 2 drop QID BOTH EYES Last administered on 12/15/18 08:56; Admin Dose 2 DROP; Start 12/10/18 at 09:00 Methylprednisolone Sodium Succinate (Solu-Medrol) 40 mg Q6 IV Last administered on 12/15/18 06:33; Admin Dose 40 MG; Start 12/10/18 at 18:00 Diagnostic Test (Pha) (Accu-Chek) 1 ea Q4H XX Last administered on 12/15/18 09:12; Admin Dose 1 EA; Start 12/11/18 at 13:00 Ertapenem 1 gm/ Sodium Chloride 100 ml @ 200 mls/hr Q24H IVPB Last administered on 12/14/18 15:03; Admin Dose 200 MLS/HR; Start 12/11/18 at 14:00 Dextrose/Sodium Chloride 1,000 ml @ 40 mls/hr Q24H IV Last administered on 12/15/18 00:54; Admin Dose 40 MLS/HR; Start 12/14/18 at 00:01 Assessment/Plan Hospital Course (Demo Recall) IMP: 1. Status post septic Shock 2. Gram Negative Bacteremia 3. 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 ESRD on HD 5. Cardiomyopathy 6. Severe Thrombocytopenia 7. Anemia RECS: 1. Continue mechanical ventilation and trach site care. 2. Minimize sedation 3. Titrate pressors to MAP > 65 mm Hg 4. HD/UF per Renal 5. Abx per ID Discussed with family at bedside will need DC planning. Kim evaluation. 40 min cc time NINA MORRIS MD, [facility] December 15, 2018 09:15
--- NOTE | 2018-12-15 10:49 | CONS ---
Assessment/Plan Assessment/Plan Assessment/Plan (Daily) Patient has been trached, plan is continue with this level of care per family members who do not want anyone to speak to them again concerning decreasing current level of care. However if patient becomes septic once again suggest bringing her case to bioethics committee, I believe all of her caregivers would agree that patient is suffering and has no chance of survival if she becomes septic once again and developed respiratory failure. Consultation Date/Type/Reason Admit Date/Time Nov 21, 2018 at 04:53 Initial Consult Date Requesting Provider: RIKA STOCK Date/Time of Note DATE: 12/15/18 TIME: 10:48 Exam/Review of Systems Exam Vitals Vital Signs Date Temp Pulse Resp B/P (MAP) Pulse Ox O2 O2 Flow FiO2 Time Delivery Rate 12/15/18 58 08:00 12/15/18 18 100 33 04:57 12/15/18 94.0 147/118 04:00 (128) 12/14/18 Mechanical 20:00 Ventilator Intake and Output 12/14/18 12/14/18 12/15/18 1515:00 23:00 07:00 IntakeIntake Total 410 ml 500 ml 240 ml OutputOutput Total 1400 ml 50 ml BalanceBalance -990 ml 450 ml 240 ml Results Result Diagram: 12/15/18 0510 12/15/18 0510 Results 24hrs Laboratory Tests Test 12/14/18 13:41 12/14/18 18:38 12/14/18 21:06 12/15/18 00:55 Bedside Glucose 77 143 130 110 Test 12/15/18 04:50 12/15/18 05:08 12/15/18 05:10 12/15/18 09:59 Bedside Glucose 102 88 Lab Scanned BLOOD TRANSFUSIO Report N White Blood Count 6.7 # Red Blood Count 3.91 #L Hemoglobin 12.0 # Hematocrit 36.1 #L Mean Corpuscular 92.3 Volume Mean Corpuscular 30.7 Hemoglobin Mean Corpuscular 33.2 Hemoglobin Concen t Red Cell 16.3 H Distribution Width Platelet Count 18 *L Mean Platelet Volume Immature 0.400 Granulocytes % Neutrophils % Segmented 85 H Neutrophils % (Manual) Band Neutrophils 11 H % (Manual) Lymphocytes % Lymphocytes % 2 L (Manual) Monocytes % Monocytes % 2 (Manual) Eosinophils % Basophils % Nucleated Red 1 H Blood Cells % Immature 0.030 Granulocytes # Neutrophils # Neutrophils # 5.7 (Manual) Band Neutrophils 0.7 H # Lymphocytes 0.1 L (Manual) Lymphocytes # Monocytes # Monocytes # 0.1 L (Manual) Eosinophils # Basophils # Nucleated Red Blood Cells # Platelet Estimate SIG DECREASED Polychromasia 1+ Hypochromasia 1+ Poikilocytosis 2+ Anisocytosis 1+ Macrocytosis 1+ Sodium Level 140 Potassium Level 4.3 Chloride Level 107 Carbon Dioxide 23 Level Anion Gap 10 Blood Urea 41 #H Nitrogen Creatinine 0.90 Est Glomerular > 60 Filtrat Rate mL/min Glucose Level 108 Calcium Level 8.8 Phosphorus Level 4.0 Magnesium Level 2.0 Medications Medication Current Medications Ondansetron HCl (Zofran Inj) 4 mg Q6H PRN IV NAUSEA AND/OR VOMITING Last administered on 12/11/18at 06:53; Admin Dose 4 MG; Start 11/21/18 at 05:30 Albuterol/ Ipratropium (Duoneb) 3 ml Q2H RESP THERAPY PRN NEB SHORTNESS OF BREATH; Start 11/21/18 at 05:30 Caspofungin 50 mg/ Sodium Chloride 250 ml @ 250 mls/hr Q24H IVPB Last administered on 12/14/18at 15:00; Admin Dose 250 MLS/HR; Start 11/24/18 at 13:00 Miscellaneous Information 1 ea NOTE XX ; Start 11/23/18 at 13:30 Glucose (Glutose) 15 gm Q15M PRN PO DECREASED GLUCOSE; Start 11/23/18 at 13:30 Glucose (Glutose) 22.5 gm Q15M PRN PO DECREASED GLUCOSE; Start 11/23/18 at 13:30 Dextrose (D50w Syringe) 25 ml Q15M PRN IV DECREASED GLUCOSE Last administered on 12/09/18at 13:59; Admin Dose 25 ML; Start 11/23/18 at 13:30 Dextrose (D50w Syringe) 50 ml Q15M PRN IV DECREASED GLUCOSE Last administered on 12/10/18at 13:14; Admin Dose 50 ML; Start 11/23/18 at 13:30 Glucagon (Glucagen) 1 mg Q15M PRN IM DECREASED GLUCOSE; Start 11/23/18 at 13:30 Glucose (Glutose) 15 gm Q15M PRN BUCCAL DECREASED GLUCOSE; Start 11/23/18 at 13:30 Phenylephrine HCl 80 mg/Dextrose 250 ml @ 18.75 mls/ hr TITRATE IV ; Start 11/24/18 at 00:00 Alteplase, Recombinant (Cathflo (Activase)) 2 mg MAY REPEAT X1 PRN CATHETER IF CATHETER REMAINS OCCULUDED Last administered on 12/02/18 15:47; Admin Dose 2 MG; Start 11/26/18 at 03:00 Albumin Human 100 ml @ 100 mls/hr DURING DIALYSIS PRN IV HYPOTENSION DURING HD Last administered on 12/12/18 16:40; Admin Dose 100 MLS/HR; Start 11/26/18 at 14:00 Levothyroxine Sodium (Synthroid) 75 mcg BEFORE BREAKFAST NGT Last administered on 12/15/18 08:55; Admin Dose 75 MCG; Start 11/29/18 at 07:00 Sodium Chloride 154 meq/Dextrose 1,038.5 ml @ 40 mls/hr Q24H IV Last administered on 12/14/18 15:00; Admin Dose 40 MLS/HR; Start 11/30/18 at 10:00 Collagenase (Santyl) 1 applic DAILY TOP Last administered on 12/15/18 08:56; Admin Dose 1 APPLIC; Start 12/01/18 at 16:30 Amiodarone HCl (Cordarone) 200 mg BID NGT Last administered on 12/12/18 21:18; Admin Dose 200 MG; Start 12/03/18 at 21:00 Acetaminophen (Tylenol Liquid) 650 mg Q6H PRN NGT PAIN LEVEL 1-3 OR FEVER; Start 12/06/18 at 09:00 Famotidine (Pepcid) 20 mg DAILY NGT Last administered on 12/15/18 08:55; Admin Dose 20 MG; Start 12/06/18 at 09:00 Folic Acid (Folic Acid) 1 mg DAILY NGT Last administered on 12/15/18 08:55; Admin Dose 1 MG; Start 12/06/18 at 09:00 Midodrine (Proamatine) 5 mg TID@,13,17 GTB Last administered on 12/15/18 08:55; Admin Dose 5 MG; Start 12/07/18 at 09:00 Norepinephrine 32 mg/Dextrose 250 ml @ 0.47 mls/hr TITRATE IV Last administered on 12/12/18 09:48; Admin Dose 0.47 MLS/HR; Start 12/08/18 at 09:00 Epoetin Margarito-epbx (RETACRIT(esrd)) 10,000 unit MoWeFr@1700 SC Last administered on 12/14/18 19:07; Admin Dose 10,000 UNIT; Start 12/11/18 at 17:00 Eye Lubricant (Artificial Tears Oph) 2 drop QID BOTH EYES Last administered on 12/15/18 08:56; Admin Dose 2 DROP; Start 12/10/18 at 09:00 Methylprednisolone Sodium Succinate (Solu-Medrol) 40 mg Q6 IV Last administered on 12/15/18 06:33; Admin Dose 40 MG; Start 12/10/18 at 18:00 Diagnostic Test (Pha) (Accu-Chek) 1 ea Q4H XX Last administered on 12/15/18 09:12; Admin Dose 1 EA; Start 12/11/18 at 13:00 Dextrose/Sodium Chloride 1,000 ml @ 40 mls/hr Q24H IV Last administered on 12/15/18 00:54; Admin Dose 40 MLS/HR; Start 12/14/18 at 00:01 Ertapenem 0.5 gm/ Sodium Chloride 100 ml @ 200 mls/hr Q24H IVPB ; Start 12/15/18 at 18:00 Lorazepam (Ativan) 1 mg Q4 PRN IV AGITATION/ANXIETY; Start 12/15/18 at 11:00; Status UNV Morphine Sulfate (morphine) 1 mg Q4H PRN IV SEVERE PAIN LEVEL 7-10; Start at 11:00; Status UNV JULIEN SALINAS December 15, 2018 10:49
[2018-12-15] MEDS: CASPOFUNGIN 50 MG in SOD CHLORIDE 0.9% 250 ML IVPB SCH (12:35)
--- NOTE | 2018-12-15 14:01 | CONS ---
Assessment/Plan Assessment/Plan Hospital Course (Demo Recall) Patient is status post tracheostomy she is in no distress and looks comfortable still hypothermic, on bear hugger WBC 6.7 platelets 18 Antimicrobials: Cancidas, Invanz Microbiology: Blood culture on admission grew Klebsiella ESBL, repeat blood cultures negative, left thigh wound culture grew Klebsiella ESBL and Leah albicans Allergy: Zosyn, vancomycin Indwelling: Right upper thigh Davie catheter, left femoral triple-lumen catheter, trach, , midline Physical examination: This is a chronically ill-appearing cachectic middle-aged woman who is laying comfortably in bed. Head atraumatic normocephalic. Neck is supple. Chest rise symmetrical. Breath sounds diminished bases. Heart: S1-S2, irreg. Abdomen distended. Bowel sounds hypoactive. Extremities with bilateral edema, cyanotic, multiple ecchymotic areas and bruises, left upper thigh dressing present Assessment: 1. Sepsis 2. Acute hypoxemic respiratory failure secondary to CHF exacerbation/probable pneumonia 3. Klebsiella ESBL bacteremia likely 2 to #4 4. 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 End-stage renal disease, hemodialysis dependent 6. Atrial fibrillation/PPM 7. Unstageable sacral decubitus 8. History of peritoneal dialysis with peritoneal dialysis still in place 9. Ascites status post paracentesis 3 weeks ago 10. Failure to thrive 11. Progressive thrombocytopenia 12. B mastoiditis and acute sinusitis Plan: Remains unchanged, continue antibiotics indefinitely for infected graft, prognosis poor Consultation Date/Type/Reason Admit Date/Time Nov 21, 2018 at 04:53 Initial Consult Date Type of Consult id Requesting Provider: RIKA STOCK Date/Time of Note DATE: 12/15/18 TIME: 14:00 Exam/Review of Systems Exam Vitals Vital Signs Date Temp Pulse Resp B/P (MAP) Pulse Ox O2 O2 Flow FiO2 Time Delivery Rate 12/15/18 94.5 61 18 145/76 100 Mechanical 12:00 (99) Ventilator 12/15/18 35 11:12 Intake and Output 12/14/18 12/14/18 12/15/18 1515:00 23:00 07:00 IntakeIntake Total 410 ml 500 ml 240 ml OutputOutput Total 1400 ml 50 ml BalanceBalance -990 ml 450 ml 240 ml Results Result Diagram: 12/15/1850912/15/18509 Results 24hrs Laboratory Tests Test 12/14/18 18:38 12/14/18 21:06 12/15/18 00:55 12/15/18 04:50 Bedside Glucose 143 130 110 102 Test 12/15/18 05:08 12/15/18 05:10 12/15/18 09:59 12/15/18 12:43 Lab Scanned BLOOD TRANSFUSIO Report N White Blood Count 6.7 # Red Blood Count 3.91 #L Hemoglobin 12.0 # Hematocrit 36.1 #L Mean Corpuscular 92.3 Volume Mean Corpuscular 30.7 Hemoglobin Mean Corpuscular 33.2 Hemoglobin Concen t Red Cell 16.3 H Distribution Width Platelet Count 18 *L Mean Platelet Volume Immature 0.400 Granulocytes % Neutrophils % Segmented 85 H Neutrophils % (Manual) Band Neutrophils 11 H % (Manual) Lymphocytes % Lymphocytes % 2 L (Manual) Monocytes % Monocytes % 2 (Manual) Eosinophils % Basophils % Nucleated Red 1 H Blood Cells % Immature 0.030 Granulocytes # Neutrophils # Neutrophils # 5.7 (Manual) Band Neutrophils 0.7 H # Lymphocytes 0.1 L (Manual) Lymphocytes # Monocytes # Monocytes # 0.1 L (Manual) Eosinophils # Basophils # Nucleated Red Blood Cells # Platelet Estimate SIG DECREASED Polychromasia 1+ Hypochromasia 1+ Poikilocytosis 2+ Anisocytosis 1+ Macrocytosis 1+ Sodium Level 140 Potassium Level 4.3 Chloride Level 107 Carbon Dioxide 23 Level Anion Gap 10 Blood Urea 41 #H Nitrogen Creatinine 0.90 Est Glomerular > 60 Filtrat Rate mL/min Glucose Level 108 Calcium Level 8.8 Phosphorus Level 4.0 Magnesium Level 2.0 Bedside Glucose 88 86 Medications Medication Current Medications Ondansetron HCl (Zofran Inj) 4 mg Q6H PRN IV NAUSEA AND/OR VOMITING Last administered on 12/11/18at 06:53; Admin Dose 4 MG; Start 11/21/18 at 05:30 Albuterol/ Ipratropium (Duoneb) 3 ml Q2H RESP THERAPY PRN NEB SHORTNESS OF RUDI ATH; Start 11/21/18 at 05:30 Caspofungin 50 mg/ Sodium Chloride 250 ml @ 250 mls/hr Q24H IVPB Last administered on 12/15/18at 12:35; Admin Dose 250 MLS/HR; Start 11/24/18 at 13:00 Miscellaneous Information 1 ea NOTE XX ; Start 11/23/18 at 13:30 Glucose (Glutose) 15 gm Q15M PRN PO DECREASED GLUCOSE; Start 11/23/18 at 13:30 Glucose (Glutose) 22.5 gm Q15M PRN PO DECREASED GLUCOSE; Start 11/23/18 at 13:30 Dextrose (D50w Syringe) 25 ml Q15M PRN IV DECREASED GLUCOSE Last administered on 12/09/18at 13:59; Admin Dose 25 ML; Start 11/23/18 at 13:30 Dextrose (D50w Syringe) 50 ml Q15M PRN IV DECREASED GLUCOSE Last administered on 12/10/18 13:14; Admin Dose 50 ML; Start 11/23/18 at 13:30 Glucagon (Glucagen) 1 mg Q15M PRN IM DECREASED GLUCOSE; Start 11/23/18 at 13:30 Glucose (Glutose) 15 gm Q15M PRN BUCCAL DECREASED GLUCOSE; Start 11/23/18 at 13:30 Phenylephrine HCl 80 mg/Dextrose 250 ml @ 18.75 mls/ hr TITRATE IV ; Start 11/24/18 at 00:00 Alteplase, Recombinant (Cathflo (Activase)) 2 mg MAY REPEAT X1 PRN CATHETER IF CATHETER REMAINS OCCULUDED Last administered on 12/02/18 15:47; Admin Dose 2 MG; Start 11/26/18 at 03:00 Albumin Human 100 ml @ 100 mls/hr DURING DIALYSIS PRN IV HYPOTENSION DURING HD Last administered on 12/12/18 16:40; Admin Dose 100 MLS/HR; Start 11/26/18 at 14:00 Levothyroxine Sodium (Synthroid) 75 mcg BEFORE BREAKFAST NGT Last administered on 12/15/18 08:55; Admin Dose 75 MCG; Start 11/29/18 at 07:00 Sodium Chloride 154 meq/Dextrose 1,038.5 ml @ 40 mls/hr Q24H IV Last administered on 12/14/18 15:00; Admin Dose 40 MLS/HR; Start 11/30/18 at 10:00 Collagenase (Santyl) 1 applic DAILY TOP Last administered on 12/15/18 08:56; Admin Dose 1 APPLIC; Start 12/01/18 at 16:30 Amiodarone HCl (Cordarone) 200 mg BID NGT Last administered on 12/12/18 21:18; Admin Dose 200 MG; Start 12/03/18 at 21:00 Acetaminophen (Tylenol Liquid) 650 mg Q6H PRN NGT PAIN LEVEL 1-3 OR FEVER; Start 12/06/18 at 09:00 Famotidine (Pepcid) 20 mg DAILY NGT Last administered on 12/15/18 08:55; Admin Dose 20 MG; Start 12/06/18 at 09:00 Folic Acid (Folic Acid) 1 mg DAILY NGT Last administered on 12/15/18 08:55; Admin Dose 1 MG; Start 12/06/18 at 09:00 Midodrine (Proamatine) 5 mg TID@09,13,17 GTB Last administered on 12/15/18 08:55; Admin Dose 5 MG; Start 12/07/18 at 09:00 Norepinephrine 32 mg/Dextrose 250 ml @ 0.47 mls/hr TITRATE IV Last administered on 12/12/18 09:48; Admin Dose 0.47 MLS/HR; Start 12/08/18 at 09:00 Epoetin Margarito-epbx (RETACRIT(esrd)) 10,000 unit MoWeFr@1700 SC Last administered on 12/14/18 19:07; Admin Dose 10,000 UNIT; Start 12/11/18 at 17:00 Eye Lubricant (Artificial Tears Oph) 2 drop QID BOTH EYES Last administered on 12/15/18 12:35; Admin Dose 2 DROP; Start 12/10/18 at 09:00 Methylprednisolone Sodium Succinate (Solu-Medrol) 40 mg Q6 IV Last administered on 12/15/18 12:35; Admin Dose 40 MG; Start 12/10/18 at 18:00 Diagnostic Test (Pha) (Accu-Chek) 1 ea Q4H XX Last administered on 12/15/18 12:36; Admin Dose 1 EA; Start 12/11/18 at 13:00 Dextrose/Sodium Chloride 1,000 ml @ 40 mls/hr Q24H IV Last administered on 12/15/18 00:54; Admin Dose 40 MLS/HR; Start 12/14/18 at 00:01 Ertapenem 0.5 gm/ Sodium Chloride 100 ml @ 200 mls/hr Q24H IVPB ; Start 12/15/18 at 18:00 Lorazepam (Ativan) 1 mg Q4H PRN IV AGITATION/ANXIETY; Start 12/15/18 at 11:00 Morphine Sulfate (morphine) 1 mg Q4H PRN IV SEVERE PAIN LEVEL 7-10; Start 12/15/18 at 11:00 KELSIE ELY NP December 15, 2018 14:01
--- NOTE | 2018-12-15 14:30 | PN ---
Date/Time of Note Date/Time of Note DATE: 12/15/18 TIME: 14:29 Assessment/Plan VTE Prophylaxis Risk score (from Ns)>0 risk: 2 SCD applied (from [facility]): Yes Pharmacological prophylaxis: NA/contraindicated Pharm contraindication: liver dx Lines/Catheters IV [facility]from [facility] Line Urinary Cath still in place: No Assessment/Plan Hospital Course 58 yo female with ESRD, cirrhosis, DMII presents with hypoglycemia, leg infection. Suffered cardiac and respiratory arrest, now intubated Acute respiratory failure: - MV per pulm - Trach planned for today - s/p G tube Septic shock: - Antibiotics per ID Hypoglycemia: No history of diabetes and patient not on any insulin or sulfonylurea or any other diabetic medication - Continue IV dextrose and tube feeds Left lower extremity wound - Antibiotics per ID -Venous study was negative for DVT A Fib: - Amiodarone ESRD with fluid overload - HD per nephrology Hypothyroidism: Continue Synthroid History of pacemaker: No acute issue Prophylaxis: SCDs Result Diagram: 12/15/18 0510 12/15/18 0510 Results 24hrs Laboratory Tests Test 12/14/18 18:38 12/14/18 21:06 12/15/18 00:55 12/15/18 04:50 Bedside Glucose 143 130 110 102 Test 12/15/18 05:08 12/15/18 05:10 12/15/18 09:59 12/15/18 12:43 Lab Scanned BLOOD TRANSFUSIO Report N White Blood Count 6.7 # Red Blood Count 3.91 #L Hemoglobin 12.0 # Hematocrit 36.1 #L Mean Corpuscular 92.3 Volume Mean Corpuscular 30.7 Hemoglobin Mean Corpuscular 33.2 Hemoglobin Concen t Red Cell 16.3 H Distribution Width Platelet Count 18 *L Mean Platelet Volume Immature 0.400 Granulocytes % Neutrophils % Segmented 85 H Neutrophils % (Manual) Band Neutrophils 11 H % (Manual) Lymphocytes % Lymphocytes % 2 L (Manual) Monocytes % Monocytes % 2 (Manual) Eosinophils % Basophils % Nucleated Red 1 H Blood Cells % Immature 0.030 Granulocytes # Neutrophils # Neutrophils # 5.7 (Manual) Band Neutrophils 0.7 H # Lymphocytes 0.1 L (Manual) Lymphocytes # Monocytes # Monocytes # 0.1 L (Manual) Eosinophils # Basophils # Nucleated Red Blood Cells # Platelet Estimate SIG DECREASED Polychromasia 1+ Hypochromasia 1+ Poikilocytosis 2+ Anisocytosis 1+ Macrocytosis 1+ Sodium Level 140 Potassium Level 4.3 Chloride Level 107 Carbon Dioxide 23 Level Anion Gap 10 Blood Urea 41 #H Nitrogen Creatinine 0.90 Est Glomerular > 60 Filtrat Rate mL/min Glucose Level 108 Calcium Level 8.8 Phosphorus Level 4.0 Magnesium Level 2.0 Bedside Glucose 88 86 Subjective 24 Hr Interval Summary Subjective hx not possible: pt non-verbal Exam/Review of Systems Exam Vitals Vital Signs Date Temp Pulse Resp B/P (MAP) Pulse Ox O2 O2 Flow FiO2 Time Delivery Rate 12/15/18 94.5 61 18 145/76 100 Mechanical 12:00 (99) Ventilator 12/15/18 35 11:12 Intake and Output 12/14/18 12/14/18 12/15/18 1515:00 23:00 07:00 IntakeIntake Total 410 ml 500 ml 240 ml OutputOutput Total 1400 ml 50 ml BalanceBalance -990 ml 450 ml 240 ml Constitutional: non-verbal Respiratory: clear to auscultation Cardiovascular: regular rate and rhythm Gastrointestinal: soft Musculoskeletal: nl extremities to inspection Results Results 24hrs Laboratory Tests Test 12/14/18 18:38 12/14/18 21:06 12/15/18 00:55 12/15/18 04:50 Bedside Glucose 143 130 110 102 Test 12/15/18 05:08 12/15/18 05:10 12/15/18 09:59 12/15/18 12:43 Lab Scanned BLOOD TRANSFUSIO Report N White Blood Count 6.7 # Red Blood Count 3.91 #L Hemoglobin 12.0 # Hematocrit 36.1 #L Mean Corpuscular 92.3 Volume Mean Corpuscular 30.7 Hemoglobin Mean Corpuscular 33.2 Hemoglobin Concen t Red Cell 16.3 H Distribution Width Platelet Count 18 *L Mean Platelet Volume Immature 0.400 Granulocytes % Neutrophils % Segmented 85 H Neutrophils % (Manual) Band Neutrophils 11 H % (Manual) Lymphocytes % Lymphocytes % 2 L (Manual) Monocytes % Monocytes % 2 (Manual) Eosinophils % Basophils % Nucleated Red 1 H Blood Cells % Immature 0.030 Granulocytes # Neutrophils # Neutrophils # 5.7 (Manual) Band Neutrophils 0.7 H # Lymphocytes 0.1 L (Manual) Lymphocytes # Monocytes # Monocytes # 0.1 L (Manual) Eosinophils # Basophils # Nucleated Red Blood Cells # Platelet Estimate SIG DECREASED Polychromasia 1+ Hypochromasia 1+ Poikilocytosis 2+ Anisocytosis 1+ Macrocytosis 1+ Sodium Level 140 Potassium Level 4.3 Chloride Level 107 Carbon Dioxide 23 Level Anion Gap 10 Blood Urea 41 #H Nitrogen Creatinine 0.90 Est Glomerular > 60 Filtrat Rate mL/min Glucose Level 108 Calcium Level 8.8 Phosphorus Level 4.0 Magnesium Level 2.0 Bedside Glucose 88 86 Medications Medication Current Medications Ondansetron HCl (Zofran Inj) 4 mg Q6H PRN IV NAUSEA AND/OR VOMITING Last administered on 12/11/18at 06:53; Admin Dose 4 MG; Start 11/21/18 at 05:30 Albuterol/ Ipratropium (Duoneb) 3 ml Q2H RESP THERAPY PRN NEB SHORTNESS OF BREATH; Start 11/21/18 at 05:30 Caspofungin 50 mg/ Sodium Chloride 250 ml @ 250 mls/hr Q24H IVPB Last admin istered on 12/15/18at 12:35; Admin Dose 250 MLS/HR; Start 11/24/18 at 13:00 Miscellaneous Information 1 ea NOTE XX ; Start 11/23/18 at 13:30 Glucose (Glutose) 15 gm Q15M PRN PO DECREASED GLUCOSE; Start 11/23/18 at 13:30 Glucose (Glutose) 22.5 gm Q15M PRN PO DECREASED GLUCOSE; Start 11/23/18 at 13:30 Dextrose (D50w Syringe) 25 ml Q15M PRN IV DECREASED GLUCOSE Last administered on 12/09/18at 13:59; Admin Dose 25 ML; Start 11/23/18 at 13:30 Dextrose (D50w Syringe) 50 ml Q15M PRN IV DECREASED GLUCOSE Last administered on 12/10/18at 13:14; Admin Dose 50 ML; Start 11/23/18 at 13:30 Glucagon (Glucagen) 1 mg Q15M PRN IM DECREASED GLUCOSE; Start 11/23/18 at 13:30 Glucose (Glutose) 15 gm Q15M PRN BUCCAL DECREASED GLUCOSE; Start 11/23/18 at 13:30 Phenylephrine HCl 80 mg/Dextrose 250 ml @ 18.75 mls/ hr TITRATE IV ; Start 11/24/18 at 00:00 Alteplase, Recombinant (Cathflo (Activase)) 2 mg MAY REPEAT X1 PRN CATHETER IF CATHETER REMAINS OCCULUDED Last administered on 12/02/18 15:47; Admin Dose 2 MG; Start 11/26/18 at 03:00 Albumin Human 100 ml @ 100 mls/hr DURING DIALYSIS PRN IV HYPOTENSION DURING HD Last administered on 12/12/18 16:40; Admin Dose 100 MLS/HR; Start 11/26/18 at 14:00 Levothyroxine Sodium (Synthroid) 75 mcg BEFORE BREAKFAST NGT Last administered on 12/15/18 08:55; Admin Dose 75 MCG; Start 11/29/18 at 07:00 Sodium Chloride 154 meq/Dextrose 1,038.5 ml @ 40 mls/hr Q24H IV Last administered on 12/14/18 15:00; Admin Dose 40 MLS/HR; Start 11/30/18 at 10:00 Collagenase (Santyl) 1 applic DAILY TOP Last administered on 12/15/18 08:56; Admin Dose 1 APPLIC; Start 12/01/18 at 16:30 Amiodarone HCl (Cordarone) 200 mg BID NGT Last administered on 12/12/18 21:18; Admin Dose 200 MG; Start 12/03/18 at 21:00 Acetaminophen (Tylenol Liquid) 650 mg Q6H PRN NGT PAIN LEVEL 1-3 OR FEVER; Start 12/06/18 at 09:00 Famotidine (Pepcid) 20 mg DAILY NGT Last administered on 12/15/18 08:55; Admin Dose 20 MG; Start 12/06/18 at 09:00 Folic Acid (Folic Acid) 1 mg DAILY NGT Last administered on 12/15/18 08:55; Admin Dose 1 MG; Start 12/06/18 at 09:00 Midodrine (Proamatine) 5 mg TID@,13,17 GTB Last administered on 12/15/18 08:55; Admin Dose 5 MG; Start 12/07/18 at 09:00 Norepinephrine 32 mg/Dextrose 250 ml @ 0.47 mls/hr TITRATE IV Last administered on 12/12/18 09:48; Admin Dose 0.47 MLS/HR; Start 12/08/18 at 09:00 Epoetin Margarito-epbx (RETACRIT(esrd)) 10,000 unit MoWeFr@1700 SC Last administered on 12/14/18 19:07; Admin Dose 10,000 UNIT; Start 12/11/18 at 17:00 Eye Lubricant (Artificial Tears Oph) 2 drop QID BOTH EYES Last administered on 12/15/18 12:35; Admin Dose 2 DROP; Start 12/10/18 at 09:00 Methylprednisolone Sodium Succinate (Solu-Medrol) 40 mg Q6 IV Last administered on 12/15/18 12:35; Admin Dose 40 MG; Start 12/10/18 at 18:00 Diagnostic Test (Pha) (Accu-Chek) 1 ea Q4H XX Last administered on 12/15/18 12:36; Admin Dose 1 EA; Start 12/11/18 at 13:00 Dextrose/Sodium Chloride 1,000 ml @ 40 mls/hr Q24H IV Last administered on 12/15/18 00:54; Admin Dose 40 MLS/HR; Start 12/14/18 at 00:01 Ertapenem 0.5 gm/ Sodium Chloride 100 ml @ 200 mls/hr Q24H IVPB ; Start 12/15/18 at 18:00 Lorazepam (Ativan) 1 mg Q4H PRN IV AGITATION/ANXIETY; Start 12/15/18 at 11:00 Morphine Sulfate (morphine) 1 mg Q4H PRN IV SEVERE PAIN LEVEL 7-10; Start 12/15/18 at 11:00 RIKA STOCK December 15, 2018 14:30
--- NOTE | 2018-12-15 15:14 | PN ---
Date/Time of Note Date/Time of Note DATE: 12/15/18 TIME: 15:13 Assessment/Plan VTE Prophylaxis Risk score (from Ns)>0 risk: 2 SCD applied (from Ns): Yes Pharmacological prophylaxis: NA/contraindicated Pharm contraindication: blood coag disorder Lines/Catheters IV C[facility]ter Type (from [facility] Mid Line Urinary Cath still in place: No Assessment/Plan Hospital Course 58 yo female with ESRD, cirrhosis, DMII presents with hypoglycemia, leg infection. Suffered cardiac and respiratory arrest, now intubated Acute respiratory failure: - MV per pulm -Status post tracheostomy - s/p G tube Septic shock: - Antibiotics per ID Hypoglycemia: No history of diabetes and patient not on any insulin or sulfonylurea or any other diabetic medication - Continue IV dextrose and tube feeds Left lower extremity wound - Antibiotics per ID -Venous study was negative for DVT A Fib: - Amiodarone ESRD with fluid overload - HD per nephrology Hypothyroidism: Continue Synthroid History of pacemaker: No acute issue Prophylaxis: SCDs DC planning: Placement in subacute Result Diagram: 12/15/18 0510 12/15/18 0510 Results 24hrs Laboratory Tests Test 12/14/18 18:38 12/14/18 21:06 12/15/18 00:55 12/15/18 04:50 Bedside Glucose 143 130 110 102 Test 12/15/18 05:08 12/15/18 05:10 12/15/18 09:59 12/15/18 12:43 Lab Scanned BLOOD TRANSFUSIO Report N White Blood Count 6.7 # Red Blood Count 3.91 #L Hemoglobin 12.0 # Hematocrit 36.1 #L Mean Corpuscular 92.3 Volume Mean Corpuscular 30.7 Hemoglobin Mean Corpuscular 33.2 Hemoglobin Concen t Red Cell 16.3 H Distribution Width Platelet Count 18 *L Mean Platelet Volume Immature 0.400 Granulocytes % Neutrophils % Segmented 85 H Neutrophils % (Manual) Band Neutrophils 11 H % (Manual) Lymphocytes % Lymphocytes % 2 L (Manual) Monocytes % Monocytes % 2 (Manual) Eosinophils % Basophils % Nucleated Red 1 H Blood Cells % Immature 0.030 Granulocytes # Neutrophils # Neutrophils # 5.7 (Manual) Band Neutrophils 0.7 H # Lymphocytes 0.1 L (Manual) Lymphocytes # Monocytes # Monocytes # 0.1 L (Manual) Eosinophils # Basophils # Nucleated Red Blood Cells # Platelet Estimate SIG DECREASED Polychromasia 1+ Hypochromasia 1+ Poikilocytosis 2+ Anisocytosis 1+ Macrocytosis 1+ Sodium Level 140 Potassium Level 4.3 Chloride Level 107 Carbon Dioxide 23 Level Anion Gap 10 Blood Urea 41 #H Nitrogen Creatinine 0.90 Est Glomerular > 60 Filtrat Rate mL/min Glucose Level 108 Calcium Level 8.8 Phosphorus Level 4.0 Magnesium Level 2.0 Bedside Glucose 88 86 Subjective 24 Hr Interval Summary Subjective hx not possible: pt non-verbal Exam/Review of Systems Exam Vitals Vital Signs Date Temp Pulse Resp B/P (MAP) Pulse Ox O2 O2 Flow FiO2 Time Delivery Rate 12/15/18 94.5 61 18 145/76 100 Mechanical 12:00 (99) Ventilator 12/15/18 35 11:12 Intake and Output 12/14/18 12/14/18 12/15/18 1515:00 23:00 07:00 IntakeIntake Total 410 ml 500 ml 240 ml OutputOutput Total 1400 ml 50 ml BalanceBalance -990 ml 450 ml 240 ml Constitutional: non-verbal Respiratory: clear to auscultation Cardiovascular: regular rate and rhythm Gastrointestinal: soft; No distended Musculoskeletal: nl extremities to inspection Results Results 24hrs Laboratory Tests Test 12/14/18 18:38 12/14/18 21:06 12/15/18 00:55 12/15/18 04:50 Bedside Glucose 143 130 110 102 Test 12/15/18 05:08 12/15/18 05:10 12/15/18 09:59 12/15/18 12:43 Lab Scanned BLOOD TRANSFUSIO Report N White Blood Count 6.7 # Red Blood Count 3.91 #L Hemoglobin 12.0 # Hematocrit 36.1 #L Mean Corpuscular 92.3 Volume Mean Corpuscular 30.7 Hemoglobin Mean Corpuscular 33.2 Hemoglobin Concen t Red Cell 16.3 H Distribution Width Platelet Count 18 *L Mean Platelet Volume Immature 0.400 Granulocytes % Neutrophils % Segmented 85 H Neutrophils % (Manual) Band Neutrophils 11 H % (Manual) Lymphocytes % Lymphocytes % 2 L (Manual) Monocytes % Monocytes % 2 (Manual) Eosinophils % Basophils % Nucleated Red 1 H Blood Cells % Immature 0.030 Granulocytes # Neutrophils # Neutrophils # 5.7 (Manual) Band Neutrophils 0.7 H # Lymphocytes 0.1 L (Manual) Lymphocytes # Monocytes # Monocytes # 0.1 L (Manual) Eosinophils # Basophils # Nucleated Red Blood Cells # Platelet Estimate SIG DECREASED Polychromasia 1+ Hypochromasia 1+ Poikilocytosis 2+ Anisocytosis 1+ Macrocytosis 1+ Sodium Level 140 Potassium Level 4.3 Chloride Level 107 Carbon Dioxide 23 Level Anion Gap 10 Blood Urea 41 #H Nitrogen Creatinine 0.90 Est Glomerular > 60 Filtrat Rate mL/min Glucose Level 108 Calcium Level 8.8 Phosphorus Level 4.0 Magnesium Level 2.0 Bedside Glucose 88 86 Medications Medication Current Medications Ondansetron HCl (Zofran Inj) 4 mg Q6H PRN IV NAUSEA AND/OR VOMITING Last administered on 12/11/18at 06:53; Admin Dose 4 MG; Start 11/21/18 at 05:30 Albuterol/ Ipratropium (Duoneb) 3 ml Q2H RESP THERAPY PRN NEB SHORTNESS OF BREATH; Start 11/21/18 at 05:30 Caspofungin 50 mg/ Sodium Chloride 250 ml @ 250 mls/hr Q24H IVPB Last administered on 12/15/18at 12:35; Admin Dose 250 MLS/HR; Start 11/24/18 at 13:00 Miscellaneous Information 1 ea NOTE XX ; Start 11/23/18 at 13:30 Glucose (Glutose) 15 gm Q15M PRN PO DECREASED GLUCOSE; Start 11/23/18 at 13:30 Glucose (Glutose) 22.5 gm Q15M PRN PO DECREASED GLUCOSE; Start 11/23/18 at 13:30 Dextrose (D50w Syringe) 25 ml Q15M PRN IV DECREASED GLUCOSE Last administered on 12/09/18at 13:59; Admin Dose 25 ML; Start 11/23/18 at 13:30 Dextrose (D50w Syringe) 50 ml Q15M PRN IV DECREASED GLUCOSE Last administered on 12/10/18at 13:14; Admin Dose 50 ML; Start 11/23/18 at 13:30 Glucagon (Glucagen) 1 mg Q15M PRN IM DECREASED GLUCOSE; Start 11/23/18 at 13:30 Glucose (Glutose) 15 gm Q15M PRN BUCCAL DECREASED GLUCOSE; Start 11/23/18 at 13:30 Phenylephrine HCl 80 mg/Dextrose 250 ml @ 18.75 mls/ hr TITRATE IV ; Start 11/24/18 at 00:00 Alteplase, Recombinant (Cathflo (Activase)) 2 mg MAY REPEAT X1 PRN CATHETER IF CATHETER REMAINS OCCULUDED Last administered on 12/02/18 15:47; Admin Dose 2 MG; Start 11/26/18 at 03:00 Albumin Human 100 ml @ 100 mls/hr DURING DIALYSIS PRN IV HYPOTENSION DURING HD Last administered on 12/12/18 16:40; Admin Dose 100 MLS/HR; Start 11/26/18 at 14:00 Levothyroxine Sodium (Synthroid) 75 mcg BEFORE BREAKFAST NGT Last administered on 12/15/18 08:55; Admin Dose 75 MCG; Start 11/29/18 at 07:00 Sodium Chloride 154 meq/Dextrose 1,038.5 ml @ 40 mls/hr Q24H IV Last administered on 12/14/18 15:00; Admin Dose 40 MLS/HR; Start 11/30/18 at 10:00 Collagenase (Santyl) 1 applic DAILY TOP Last administered on 12/15/18 08:56; Admin Dose 1 APPLIC; Start 12/01/18 at 16:30 Amiodarone HCl (Cordarone) 200 mg BID NGT Last administered on 12/12/18 21:18; Admin Dose 200 MG; Start 12/03/18 at 21:00 Acetaminophen (Tylenol Liquid) 650 mg Q6H PRN NGT PAIN LEVEL 1-3 OR FEVER; Start 12/06/18 at 09:00 Famotidine (Pepcid) 20 mg DAILY NGT Last administered on 12/15/18 08:55; Admin Dose 20 MG; Start 12/06/18 at 09:00 Folic Acid (Folic Acid) 1 mg DAILY NGT Last administered on 12/15/18 08:55; Admin Dose 1 MG; Start 12/06/18 at 09:00 Midodrine (Proamatine) 5 mg TID@,13,17 GTB Last administered on 12/15/18 08:55; Admin Dose 5 MG; Start 12/07/18 at 09:00 Norepinephrine 32 mg/Dextrose 250 ml @ 0.47 mls/hr TITRATE IV Last administered on 12/12/18 09:48; Admin Dose 0.47 MLS/HR; Start 12/08/18 at 09:00 Epoetin Margarito-epbx (RETACRIT(esrd)) 10,000 unit MoWeFr@1700 SC Last administered on 12/14/18 19:07; Admin Dose 10,000 UNIT; Start 12/11/18 at 17:00 Eye Lubricant (Artificial Tears Oph) 2 drop QID BOTH EYES Last administered on 12/15/18 12:35; Admin Dose 2 DROP; Start 12/10/18 at 09:00 Methylprednisolone Sodium Succinate (Solu-Medrol) 40 mg Q6 IV Last administered on 12/15/18 12:35; Admin Dose 40 MG; Start 12/10/18 at 18:00 Diagnostic Test (Pha) (Accu-Chek) 1 ea Q4H XX Last administered on 12/15/18 12:36; Admin Dose 1 EA; Start 12/11/18 at 13:00 Dextrose/Sodium Chloride 1,000 ml @ 40 mls/hr Q24H IV Last administered on 12/15/18 00:54; Admin Dose 40 MLS/HR; Start 12/14/18 at 00:01 Ertapenem 0.5 gm/ Sodium Chloride 100 ml @ 200 mls/hr Q24H IVPB ; Start 12/15/18 at 18:00 Lorazepam (Ativan) 1 mg Q4H PRN IV AGITATION/ANXIETY; Start 12/15/18 at 11:00 Morphine Sulfate (morphine) 1 mg Q4H PRN IV SEVERE PAIN LEVEL 7-10; Start 12/15/18 at 11:00 RIKA STOCK December 15, 2018 15:14
[2018-12-15] MEDS: LORAZEPAM 2 MG INJ IV PRN (15:20)
[2018-12-15] MEDS: SODIUM CHLORIDE 23.4% 154 MEQ in DEXTROSE 10% 1,000 ML IV SCH (18:33)
[2018-12-15] MEDS: ERTAPENEM SODIUM 0.5 GM in SOD CHLORIDE 0.9% 100 ML IVPB SCH (18:34)
[2018-12-16] VITALS (43 sets, daily range): BP systolic 73–136; BP diastolic 58–111; PULSE 63–83; RESP 18–24
[2018-12-16] MEDS: morphine 2 MG INJ IV PRN (00:11)
[2018-12-16] MEDS: DEXTROSE 10%-0.2% NACL 1,000 ML IV SCH (00:39)
[2018-12-16] MEDS: ACCU-CHEK XX SCH ×6 (00:39→20:27)
[2018-12-16] MEDS: METHYLPREDNISOLONE 40 MG INJ IV SCH ×4 (00:39→18:10)
[2018-12-16] MEDS: LORAZEPAM 2 MG INJ IV PRN (04:21)
--- NOTE | 2018-12-16 07:59 | PN ---
DATE: 12/16/2018 SUBJECTIVE: The patient remains in serious condition. The patient looks cachectic, vaguely ill. No other events noted. The patient is pending dialysis today. OBJECTIVE: VITAL SIGNS: Blood pressure is 120/83, respirations 20, pulse 74, temperature 97.1. HEENT: Head is normocephalic. NECK: Supple. HEART: Regular rate. LUNGS: Show diminished breath sounds at the base. ABDOMEN: Soft, nontender to palpation without rebound or guarding. EXTREMITIES: Negative for clubbing, cyanosis. Positive edema, diffuse anasarca. DERMATOLOGIC: No rashes. MUSCULOSKELETAL: No joint effusion. NEUROLOGIC: No change in exam. MEDICATIONS: Reviewed. LABORATORY DATA: Reviewed. ASSESSMENT AND PLAN: 1. End-stage renal disease. Plan is for hemodialysis today. We will ultrafiltrate approximately 2 to 3 liters. 2. Volume overload with diffuse anasarca. Continue ultrafiltration with dialysis. 3. Sepsis, status post shock. The patient is currently on pressor support, completing antibiotic co urse. 4. Anemia. Continue to monitor hemoglobin and hematocrit levels, no need for Epogen at this time as hemoglobin levels have improved. 5. Mineral bone disorder, monitor calcium and phosphorus levels. 6. Ventilator-dependent respiratory failure. Vent settings have been reviewed. Continue to monitor . 7. Acute encephalopathy, etiology is toxic metabolic. 8. Ascites, status post paracentesis. 9. Hypothyroidism. Continue Synthroid. 10. Dysphagia. Continue tube feeding. 11. Arrhythmia. Continue amiodarone. 12. Status post cardiopulmonary arrest. 13. Lower extremity wounds. Continue wound care. 14. Thrombocytopenia. Continue to monitor. Dictated By: SARIKA JOINER DO NR/NTS Conf#: [id number] DID#: [id number] CC: MANDY BATES MD; RIKA STOCK MD; LORRAINE JOHNSON MD;*EndCC*
[2018-12-16] MEDS: ALBUMIN HUMAN 25% 100 ML IV PRN ×2 (08:08→08:52)
[2018-12-16] MEDS: AMIODARONE 200 MG TAB NGT SCH ×2 (09:00→20:27)
[2018-12-16] MEDS: ARTIFICIAL TEARS 15 ML OPH BOTH EYES SCH ×4 (09:03→20:27)
[2018-12-16] MEDS: COLLAGENASE 5 GM (UD JAR) TOP SCH (09:03)
[2018-12-16] MEDS: LEVOTHYROXINE 75 MCG TAB NGT SCH (09:04)
[2018-12-16] MEDS: MIDODRINE 5 MG TAB GTB SCH ×3 (09:04→18:19)
[2018-12-16] MEDS: FAMOTIDINE 20 MG TAB NGT SCH (09:05)
[2018-12-16] MEDS: FOLIC ACID 1 MG TAB NGT SCH (09:05)
[2018-12-16] MEDS: BALSAM PERU/CASTOR OIL 60 GM TUBE TOP SCH ×2 (09:06→20:28)
[2018-12-16] MEDS: CASPOFUNGIN 50 MG in SOD CHLORIDE 0.9% 250 ML IVPB SCH (13:12)
--- NOTE | 2018-12-16 13:24 | CONS ---
Assessment/Plan Assessment/Plan Hospital Course (Demo Recall) No events, on bear hugger for hypothermia, lethargic, nad Antimicrobials: Cancidas, Invanz Microbiology: Blood culture on admission grew Klebsiella ESBL, repeat blood cultures negative, left thigh wound culture grew Klebsiella ESBL and Leah albicans Allergy: Zosyn, vancomycin Indwelling: Right upper thigh Davie catheter, left femoral triple-lumen catheter, trach Physical examination: This is a chronically ill-appearing cachectic middle-aged woman who is laying comfortably in bed. Head atraumatic normocephalic. Neck is supple. Chest rise symmetrical. Breath sounds diminished bases. Heart: S1-S2, irreg. Abdomen distended. Bowel sounds hypoactive. Extremities with bilateral edema, cyanotic, multiple ecchymotic areas and bruises, left upper thigh d ressing present Assessment: 1. Sepsis 2. Acute hypoxemic respiratory failure secondary to CHF exacerbation/probable pneumonia 3. Klebsiella ESBL bacteremia likely 2 to #4 4. 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 End-stage renal disease, hemodialysis dependent 6. Atrial fibrillation/PPM 7. Unstageable sacral decubitus 8. History of peritoneal dialysis with peritoneal dialysis still in place 9. Ascites status post paracentesis 3 weeks ago 10. Failure to thrive 11. Progressive thrombocytopenia 12. B mastoiditis and acute sinusitis Plan: Remains unchanged, continue antibiotics indefinitely for infected graft, prognosis poor Consultation Date/Type/Reason Admit Date/Time Nov 21, 2018 at 04:53 Initial Consult Date Type of Consult id Requesting Provider: RIKA STOCK Date/Time of Note DATE: 12/16/18 TIME: 13:23 Exam/Review of Systems Exam Vitals Vital Signs Date Temp Pulse Resp B/P (MAP) Pulse Ox O2 O2 Flow FiO2 Time Delivery Rate 12/16/18 68 11:00 12/16/18 20 99/60 (73) 100 Mechanical 08:10 Ventilator Trach Collar 12/16/18 30 08:09 12/16/18 97.0 08:00 Intake and Output 12/15/18 12/15/18 12/16/18 1515:00 23:00 07:00 IntakeIntake Total 350 ml 480 ml 340 ml BalanceBalance 350 ml 480 ml 340 ml Results Result Diagram: 12/16/18 0439 12/16/18 0439 Results 24hrs Laboratory Tests Test 12/15/18 20:53 12/16/18 00:38 12/16/18 04:29 12/16/18 04:39 Bedside Glucose 94 123 128 White Blood Count 11.9 #H Red Blood Count 4.16 L Hemoglobin 12.7 Hematocrit 37.7 Mean Corpuscular Volume 90.6 Mean Corpuscular 30.5 Hemoglobin Mean Corpuscular 33.7 Hemoglobin Concent Red Cell Distribution 16.7 H Width Platelet Count 34 #L Mean Platelet Volume Immature Granulocytes % 0.700 H Neutrophils % Segmented Neutrophils 87 H % (Manual) Band Neutrophils % 6 H (Manual) Lymphocytes % Lymphocytes % (Manual) 4 L Monocytes % Monocytes % (Manual) 3 Eosinophils % Basophils % Nucleated Red Blood 0.0 Cells % Immature Granulocytes # 0.080 H Neutrophils # Neutrophils # (Manual) 10.4 H Band Neutrophils # 0.7 H Lymphocytes (Manual) 0.4 L Lymphocytes # Monocytes # Monocytes # (Manual) 0.3 Eosinophils # Basophils # Nucleated Red Blood Cells # Platelet Estimate DECREASED Giant Platelets 2 H Polychromasia 1+ Poikilocytosis 1+ Anisocytosis 1+ Sodium Level 139 Potassium Level 4.6 Chloride Level 106 Carbon Dioxide Level 23 Anion Gap 10 Blood Urea Nitrogen 55 H Creatinine 1.15 H Est Glomerular Filtrat 48 L Rate mL/min Glucose Level 111 Calcium Level 8.7 Phosphorus Level 5.3 H Magnesium Level 1.9 Test 12/16/18 09:13 Bedside Glucose 166 Medications Medication Current Medications Ondansetron HCl (Zofran Inj) 4 mg Q6H PRN IV NAUSEA AND/OR VOMITING Last administered on 12/11/18at 06:53; Admin Dose 4 MG; Start 11/21/18 at 05:30 Albuterol/ Ipratropium (Duoneb) 3 ml Q2H RESP THERAPY PRN NEB SHORTNESS OF BREATH; Start 11/21/18 at 05:30 Caspofungin 50 mg/ Sodium Chloride 250 ml @ 250 mls/hr Q24H IVPB Last administered on 12/16/18at 13:12; Admin Dose 250 MLS/HR; Start 11/24/18 at 13:00 Miscellaneous Information 1 ea NOTE XX ; Start 11/23/18 at 13:30 Glucose (Glutose) 15 gm Q15M PRN PO DECREASED GLUCOSE; Start 11/23/18 at 13:30 Glucose (Glutose) 22.5 gm Q15M PRN PO DECREASED GLUCOSE; Start 11/23/18 at 13:30 Dextrose (D50w Syringe) 25 ml Q15M PRN IV DECREASED GLUCOSE Last administered on 12/09/18 13:59; Admin Dose 25 ML; Start 11/23/18 at 13:30 Dextrose (D50w Syringe) 50 ml Q15M PRN IV DECREASED GLUCOSE Last administered on 12/10/18 13:14; Admin Dose 50 ML; Start 11/23/18 at 13:30 Glucagon (Glucagen) 1 mg Q15M PRN IM DECREASED GLUCOSE; Start 11/23/18 at 13:30 Glucose (Glutose) 15 gm Q15M PRN BUCCAL DECREASED GLUCOSE; Start 11/23/18 at 13:30 Phenylephrine HCl 80 mg/Dextrose 250 ml @ 18.75 mls/ hr TITRATE IV ; Start 11/24/18 at 00:00 Alteplase, Recombinant (Cathflo (Activase)) 2 mg MAY REPEAT X1 PRN CATHETER IF CATHETER REMAINS OCCULUDED Last administered on 12/02/18 15:47; Admin Dose 2 MG; Start 11/26/18 at 03:00 Albumin Human 100 ml @ 100 mls/hr DURING DIALYSIS PRN IV HYPOTENSION DURING HD Last administered on 12/16/18 08:52; Admin Dose 100 MLS/HR; Start 11/26/18 at 14:00 Levothyroxine Sodium (Synthroid) 75 mcg BEFORE BREAKFAST NGT Last administered on 12/16/18 09:04; Admin Dose 75 MCG; Start 11/29/18 at 07:00 Sodium Chloride 154 meq/Dextrose 1,038.5 ml @ 40 mls/hr Q24H IV Last administered on 12/15/18 18:33; Admin Dose 40 MLS/HR; Start 11/30/18 at 10:00 Collagenase (Santyl) 1 applic DAILY TOP Last administered on 12/16/18 09:03; Admin Dose 1 APPLIC; Start 12/01/18 at 16:30 Amiodarone HCl (Cordarone) 200 mg BID NGT Last administered on 12/12/18 21:18; Admin Dose 200 MG; Start 12/03/18 at 21:00 Acetaminophen (Tylenol Liquid) 650 mg Q6H PRN NGT PAIN LEVEL 1-3 OR FEVER; Start 12/06/18 at 09:00 Famotidine (Pepcid) 20 mg DAILY NGT Last administered on 12/16/18 09:05; Admin Dose 20 MG; Start 12/06/18 at 09:00 Folic Acid (Folic Acid) 1 mg DAILY NGT Last administered on 12/16/18 09:05; Admin Dose 1 MG; Start 12/06/18 at 09:00 Midodrine (Proamatine) 5 mg TID@09,13,17 GTB Last administered on 12/16/18 13:12; Admin Dose 5 MG; Start 12/07/18 at 09:00 Norepinephrine 32 mg/Dextrose 250 ml @ 0.47 mls/hr TITRATE IV Last admin istered on 12/12/18 09:48; Admin Dose 0.47 MLS/HR; Start 12/08/18 at 09:00 Epoetin Margarito-epbx (RETACRIT(esrd)) 10,000 unit MoWeFr@1700 SC Last administered on 12/14/18 19:07; Admin Dose 10,000 UNIT; Start 12/11/18 at 17:00; Status Hold Eye Lubricant (Artificial Tears Oph) 2 drop QID BOTH EYES Last administered on 12/16/18 13:12; Admin Dose 2 DROP; Start 12/10/18 at 09:00 Methylprednisolone Sodium Succinate (Solu-Medrol) 40 mg Q6 IV Last administered on 12/16/18 13:12; Admin Dose 40 MG; Start 12/10/18 at 18:00 Diagnostic Test (Pha) (Accu-Chek) 1 ea Q4H XX Last administered on 12/16/18 13:02; Admin Dose 1 EA; Start 12/11/18 at 13:00 Ertapenem 0.5 gm/ Sodium Chloride 100 ml @ 200 mls/hr Q24H IVPB Last administered on 12/15/18 18:34; Admin Dose 200 MLS/HR; Start 12/15/18 at 18:00 Lorazepam (Ativan) 1 mg Q4H PRN IV AGITATION/ANXIETY Last administered on 12/16/18 04:21; Admin Dose 1 MG; Start 12/15/18 at 11:00 Morphine Sulfate (morphine) 1 mg Q4H PRN IV SEVERE PAIN LEVEL 7-10 Last administered on 12/16/18at 00:11; Admin Dose 1 MG; Start 12/15/18 at 11:00 KELSIE ELY NP December 16, 2018 13:24
--- NOTE | 2018-12-16 14:20 | PN ---
Date/Time of Note Date/Time of Note DATE: 12/16/18 TIME: 14:19 Assessment/Plan VTE Prophylaxis Risk score (from Nsg)>0 risk: 12 Pharmacological prophylaxis: NA/contraindicated Pharm contraindication: blood coag disorder Lines/Catheters IV Catheter Type (from Nrsg): Mid Line Urinary Cath still in place: No Assessment/Plan Hospital Course 58 yo female with ESRD, cirrhosis, DMII presents with hypoglycemia, leg infection. Suffered cardiac and respiratory arrest, now intubated Acute respiratory failure: - MV per pulm -Status post tracheostomy - s/p G tube Septic shock: - Antibiotics per ID Hypoglycemia: No history of diabetes and patient not on any insulin or sulfonylurea or any other diabetic medication - Continue IV dextrose and tube feeds Left lower extremity wound - Antibiotics per ID -Venous study was negative for DVT A Fib: - Amiodarone ESRD with fluid overload - HD per nephrology Hypothyroidism: Continue Synthroid History of pacemaker: No acute issue Prophylaxis: SCDs DC planning: Placement in subacute Result Diagram: 12/16/18 0439 12/16/18 0439 Results 24hrs Laboratory Tests Test 12/15/18 20:53 12/16/18 00:38 12/16/18 04:29 12/16/18 04:39 Bedside Glucose 94 123 128 White Blood Count 11.9 #H Red Blood Count 4.16 L Hemoglobin 12.7 Hematocrit 37.7 Mean Corpuscular Volume 90.6 Mean Corpuscular 30.5 Hemoglobin Mean Corpuscular 33.7 Hemoglobin Concent Red Cell Distribution 16.7 H Width Platelet Count 34 #L Mean Platelet Volume Immature Granulocytes % 0.700 H Neutrophils % Segmented Neutrophils 87 H % (Manual) Band Neutrophils % 6 H (Manual) Lymphocytes % Lymphocytes % (Manual) 4 L Monocytes % Monocytes % (Manual) 3 Eosinophils % Basophils % Nucleated Red Blood 0.0 Cells % Immature Granulocytes # 0.080 H Neutrophils # Neutrophils # (Manual) 10.4 H Band Neutrophils # 0.7 H Lymphocytes (Manual) 0.4 L Lymphocytes # Monocytes # Monocytes # (Manual) 0.3 Eosinophils # Basophils # Nucleated Red Blood Cells # Platelet Estimate DECREASED Giant Platelets 2 H Polychromasia 1+ Poikilocytosis 1+ Anisocytosis 1+ Sodium Level 139 Potassium Level 4.6 Chloride Level 106 Carbon Dioxide Level 23 Anion Gap 10 Blood Urea Nitrogen 55 H Creatinine 1.15 H Est Glomerular Filtrat 48 L Rate mL/min Glucose Level 111 Calcium Level 8.7 Phosphorus Level 5.3 H Magnesium Level 1.9 Test 12/16/18 09:13 12/16/18 13:22 Bedside Glucose 166 185 Subjective 24 Hr Interval Summary Subjective hx not possible: pt non-verbal Exam/Review of Systems Exam Vitals Vital Signs Date Temp Pulse Resp B/P (MAP) Pulse Ox O2 O2 Flow FiO2 Time Delivery Rate 12/16/18 77 19 109/66 100 Nasal 13:00 (80) Cannula 12/16/18 30 12:00 12/16/18 96.5 12:00 Intake and Output 12/15/18 12/15/18 12/16/18 1515:00 23:00 07:00 IntakeIntake Total 350 ml 480 ml 370 ml BalanceBalance 350 ml 480 ml 370 ml Constitutional: non-verbal Respiratory: clear to auscultation Cardiovascular: regular rate and rhythm Gastrointestinal: soft; No distended Musculoskeletal: nl extremities to inspection Results Results 24hrs Laboratory Tests Test 12/15/18 20:53 12/16/18 00:38 12/16/18 04:29 12/16/18 04:39 Bedside Glucose 94 123 128 White Blood Count 11.9 #H Red Blood Count 4.16 L Hemoglobin 12.7 Hematocrit 37.7 Mean Corpuscular Volume 90.6 Mean Corpuscular 30.5 Hemoglobin Mean Corpuscular 33.7 Hemoglobin Concent Red Cell Distribution 16.7 H Width Platelet Count 34 #L Mean Platelet Volume Immature Granulocytes % 0.700 H Neutrophils % Segmented Neutrophils 87 H % (Manual) Band Neutrophils % 6 H (Manual) Lymphocytes % Lymphocytes % (Manual) 4 L Monocytes % Monocytes % (Manual) 3 Eosinophils % Basophils % Nucleated Red Blood 0.0 Cells % Immature Granulocytes # 0.080 H Neutrophils # Neutrophils # (Manual) 10.4 H Band Neutrophils # 0.7 H Lymphocytes (Manual) 0.4 L Lymphocytes # Monocytes # Monocytes # (Manual) 0.3 Eosinophils # Basophils # Nucleated Red Blood Cells # Platelet Estimate DECREASED Giant Platelets 2 H Polychromasia 1+ Poikilocytosis 1+ Anisocytosis 1+ Sodium Level 139 Potassium Level 4.6 Chloride Level 106 Carbon Dioxide Level 23 Anion Gap 10 Blood Urea Nitrogen 55 H Creatinine 1.15 H Est Glomerular Filtrat 48 L Rate mL/min Glucose Level 111 Calcium Level 8.7 Phosphorus Level 5.3 H Magnesium Level 1.9 Test 12/16/18 09:13 12/16/18 13:22 Bedside Glucose 166 185 Medications Medication Current Medications Ondansetron HCl (Zofran Inj) 4 mg Q6H PRN IV NAUSEA AND/OR VOMITING Last administered on 12/11/18 06:53; Admin Dose 4 MG; Start 11/21/18 at 05:30 Albuterol/ Ipratropium (Duoneb) 3 ml Q2H RESP THERAPY PRN NEB SHORTNESS OF RUDI ATH; Start 11/21/18 at 05:30 Caspofungin 50 mg/ Sodium Chloride 250 ml @ 250 mls/hr Q24H IVPB Last administered on 12/16/18at 13:12; Admin Dose 250 MLS/HR; Start 11/24/18 at 13:00 Miscellaneous Information 1 ea NOTE XX ; Start 11/23/18 at 13:30 Glucose (Glutose) 15 gm Q15M PRN PO DECREASED GLUCOSE; Start 11/23/18 at 13:30 Glucose (Glutose) 22.5 gm Q15M PRN PO DECREASED GLUCOSE; Start 11/23/18 at 13:30 Dextrose (D50w Syringe) 25 ml Q15M PRN IV DECREASED GLUCOSE Last administered on 12/09/18at 13:59; Admin Dose 25 ML; Start 11/23/18 at 13:30 Dextrose (D50w Syringe) 50 ml Q15M PRN IV DECREASED GLUCOSE Last administered on 12/10/18at 13:14; Admin Dose 50 ML; Start 11/23/18 at 13:30 Glucagon (Glucagen) 1 mg Q15M PRN IM DECREASED GLUCOSE; Start 11/23/18 at 13:30 Glucose (Glutose) 15 gm Q15M PRN BUCCAL DECREASED GLUCOSE; Start 11/23/18 at 13:30 Phenylephrine HCl 80 mg/Dextrose 250 ml @ 18.75 mls/ hr TITRATE IV ; Start 11/24/18 at 00:00 Alteplase, Recombinant (Cathflo (Activase)) 2 mg MAY REPEAT X1 PRN CATHETER IF CATHETER REMAINS OCCULUDED Last administered on 12/02/18at 15:47; Admin Dose 2 MG; Start 11/26/18 at 03:00 Albumin Human 100 ml @ 100 mls/hr DURING DIALYSIS PRN IV HYPOTENSION DURING HD Last administered on 12/16/18 08:52; Admin Dose 100 MLS/HR; Start 11/26/18 at 14:00 Levothyroxine Sodium (Synthroid) 75 mcg BEFORE BREAKFAST NGT Last administered on 12/16/18 09:04; Admin Dose 75 MCG; Start 11/29/18 at 07:00 Sodium Chloride 154 meq/Dextrose 1,038.5 ml @ 40 mls/hr Q24H IV Last administered on 12/15/18 18:33; Admin Dose 40 MLS/HR; Start 11/30/18 at 10:00 Collagenase (Santyl) 1 applic DAILY TOP Last administered on 12/16/18 09:03; Admin Dose 1 APPLIC; Start 12/01/18 at 16:30 Amiodarone HCl (Cordarone) 200 mg BID NGT Last administered on 12/12/18 21:18; Admin Dose 200 MG; Start 12/03/18 at 21:00 Acetaminophen (Tylenol Liquid) 650 mg Q6H PRN NGT PAIN LEVEL 1-3 OR FEVER; Start 12/06/18 at 09:00 Famotidine (Pepcid) 20 mg DAILY NGT Last administered on 12/16/18 09:05; Admin Dose 20 MG; Start 12/06/18 at 09:00 Folic Acid (Folic Acid) 1 mg DAILY NGT Last administered on 12/16/18 09:05; Admin Dose 1 MG; Start 12/06/18 at 09:00 Midodrine (Proamatine) 5 mg TID@,,17 GTB Last administered on 12/16/18 13:12; Admin Dose 5 MG; Start 12/07/18 at 09:00 Norepinephrine 32 mg/Dextrose 250 ml @ 0.47 mls/hr TITRATE IV Last administered on 12/12/18 09:48; Admin Dose 0.47 MLS/HR; Start 12/08/18 at 09:00 Epoetin Margarito-epbx (RETACRIT(esrd)) 10,000 unit MoWeFr@1700 SC Last administered on 12/14/18 19:07; Admin Dose 10,000 UNIT; Start 12/11/18 at 17:00; Status Hold Eye Lubricant (Artificial Tears Oph) 2 drop QID BOTH EYES Last administered on 12/16/18 13:12; Admin Dose 2 DROP; Start 12/10/18 at 09:00 Methylprednisolone Sodium Succinate (Solu-Medrol) 40 mg Q6 IV Last administered on 12/16/18 13:12; Admin Dose 40 MG; Start 12/10/18 at 18:00 Diagnostic Test (Pha) (Accu-Chek) 1 ea Q4H XX Last administered on 12/16/18 13:02; Admin Dose 1 EA; Start 12/11/18 at 13:00 Ertapenem 0.5 gm/ Sodium Chloride 100 ml @ 200 mls/hr Q24H IVPB Last administered on 12/15/18 18:34; Admin Dose 200 MLS/HR; Start 12/15/18 at 18:00 Lorazepam (Ativan) 1 mg Q4H PRN IV AGITATION/ANXIETY Last administered on 12/16/18 04:21; Admin Dose 1 MG; Start 12/15/18 at 11:00 Morphine Sulfate (morphine) 1 mg Q4H PRN IV SEVERE PAIN LEVEL 7-10 Last administered on 12/16/18 00:11; Admin Dose 1 MG; Start 12/15/18 at 11:00 RIKA STOCK December 16, 2018 14:20
[2018-12-16] MEDS: SODIUM CHLORIDE 23.4% 154 MEQ in DEXTROSE 10% 1,000 ML IV SCH (18:09)
--- NOTE | 2018-12-16 18:26 | PN ---
Date/Time of Note Date/Time of Note DATE: 12/16/18 TIME: 18:25 Assessment/Plan Lines/Catheters IV Catheter Type (from Nrsg): Mid Line Moon in Place (from Nrsg): No Assessment/Plan Assessment/Plan Status post tracheostomy We will continue vent support Local [facility] care Pulmonary toilet Subjective 24 Hr Interval Summary Constitutional: improved Pain Control: mild Exam/Review of Systems Vital Signs Vitals Vital Signs Date Temp Pulse Resp B/P (MAP) Pulse Ox O2 O2 Flow FiO2 Time Delivery Rate 12/16/18 76 18 100 30 17:50 12/16/18 110/65 Nasal 14:00 (80) Cannula 12/16/18 96.5 12:00 Intake and Output 12/15/18 12/15/18 12/16/18 1515:00 23:00 07:00 IntakeIntake Total 350 ml 480 ml 410 ml BalanceBalance 350 ml 480 ml 410 ml Exam Eyes: nl conjunctiva, EOMI, nl lids, nl sclera ENMT: nl external ears & nose, nl lips & teeth, nl nasal mucosa & septum, mucosa pink and moist Neck: supple, non-tender Respiratory: clear to auscultation, normal air movement Cardiovascular: regular rate and rhythm, nl pulses Gastrointestinal: soft, nl liver, spleen, non-tender Musculoskeletal: nl extremities to inspection, nl gait and stance Results Result Diagram: 12/16/18 0439 12/16/18 0439 TAE PAN MD December 16, 2018 18:26
[2018-12-16] MEDS: ERTAPENEM SODIUM 0.5 GM in SOD CHLORIDE 0.9% 100 ML IVPB SCH (18:30)
[2018-12-17] VITALS (33 sets, daily range): BP systolic 128–154; BP diastolic 60–114; PULSE 69–96; RESP 14–25
[2018-12-17] MEDS: METHYLPREDNISOLONE 40 MG INJ IV SCH ×4 (00:33→18:51)
[2018-12-17] MEDS: ACCU-CHEK XX SCH ×6 (00:34→21:00)
[2018-12-17] MEDS: LEVOTHYROXINE 75 MCG TAB NGT SCH (06:22)
--- NOTE | 2018-12-17 07:53 | PN ---
DATE: 12/17/2018 SUBJECTIVE: The patient had ultrafiltration performed, tolerated well, approximately 2 liters remove d. No other acute events noted. No hemoptysis, hematemesis or hematochezia. The patient remains on full ventilatory support, off pressor support. OBJECTIVE: VITAL SIGNS: Blood pressure is 152/80, respirations 24, pulse 88, temperature 97.8. HEENT: Head is normocephalic. NECK: Supple. HEART: Regular rate. LUNGS: Show diminished breath sounds at the base. ABDOMEN: Soft, nontender to palpation. No rebound or guarding. EXTREMITIES: Negative for clubbing, cyanosis. Positive edema. DERMATOLOGIC: No rashes. MUSCULOSKELETAL: No joint effusion. NEUROLOGIC: No change in exam. MEDICATIONS: Reviewed. LABORATORY DATA: From 12/17/2018 has been reviewed. IMAGING STUDIES: Reviewed. ASSESSMENT AND PLAN: 1. End-stage renal disease. The patient had hemodialysis yesterday, tolerated well. Plan is for di alysis again tomorrow. 2. Volume overload with diffuse anasarca. Continue ultrafiltration with hemodialysis. 3. Sepsis, status post shock. The patient is currently off pressor support, completing antibiotic c ourse. 4. Anemia. Continue to monitor hemoglobin and hematocrit levels. We will give Epogen as needed. 5. Mineral bone disorder, monitor calcium and phosphorus levels. 6. Ventilator-dependent respiratory failure. Vent settings have been reviewed. Continue to monitor . 7. Acute encephalopathy, etiology is toxic metabolic. 8. Ascites, status post paracentesis. 9. Hypothyroidism. Continue Synthroid. 10. Dysphagia. Continue tube feeding. 11. Arrhythmia. Continue amiodarone. 12. Status post cardiopulmonary arrest. 13. Thrombocytopenia. Continue to monitor. 14. Lower extremity wounds. Dictated By: SARIKA JOINER DO NR/NTS Conf#: [id number] DID#: [id number] CC: LORRAINE JOHNSON MD; RIKA STOCK MD; MANDY BATES MD;*EndCC*
--- NOTE | 2018-12-17 08:14 | CONS ---
Assessment/Plan Assessment/Plan Assessment/Plan (Daily) Bilateral pneumonias Unable to be weaned from the ventilator Emaciated ICU malnutrition on clinical examination Renal failure on hemodialysis Pt is emaciated and in my opinion and suffering... she has been peg'd and trach'd..I would be unethical to subject her to CPR and shocking. Son has resisted all attempts to change code status... suggest Bioethics consult. Consultation Date/Type/Reason Admit Date/Time Nov 21, 2018 at 04:53 Date/Time of Note DATE: 12/17/18 TIME: 08:05 Past Medical History Medical History: hypertension, hypothyroid, renal disease, other (See HPI) Home Meds Reported Medications Folic Acid* (Folic Acid*) 1 Mg Tablet, 1 MG PO DAILY, TAB 08/10/18 Amiodarone Hcl* (Amiodarone Hcl*) 200 Mg Tablet, 200 MG PO BID, #60 TAB 08/10/18 Pantoprazole* (Protonix*) 40 Mg Tablet.dr, 40 MG PO DAILY, TAB 08/10/18 Multivit/Ca Carb/B Cmplx/Fa* (Iram-Xiomara*) 1 Tab Tab, 1 TAB PO DAILY, TAB 08/10/18 Levothyroxine Sodium* (Levoxyl*) 75 Mcg Tablet, 75 MCG PO BEFORE BREAKFAST, #30 TAB 08/10/18 Medications Current Medications Ondansetron HCl (Zofran Inj) 4 mg Q6H PRN IV NAUSEA AND/OR VOMITING Last administered on 12/11/18at 06:53; Admin Dose 4 MG; Start 11/21/18 at 05:30 Albuterol/ Ipratropium (Duoneb) 3 ml Q2H RESP THERAPY PRN NEB SHORTNESS OF BREATH; Start 11/21/18 at 05:30 Caspofungin 50 mg/ Sodium Chloride 250 ml @ 250 mls/hr Q24H IVPB Last administered on 12/16/18at 13:12; Admin Dose 250 MLS/HR; Start 11/24/18 at 13:00 Miscellaneous Information 1 ea NOTE XX ; Start 11/23/18 at 13:30 Glucose (Glutose) 15 gm Q15M PRN PO DECREASED GLUCOSE; Start 11/23/18 at 13:30 Glucose (Glutose) 22.5 gm Q15M PRN PO DECREASED GLUCOSE; Start 11/23/18 at 13:30 Dextrose (D50w Syringe) 25 ml Q15M PRN IV DECREASED GLUCOSE Last administered on 12/09/18 13:59; Admin Dose 25 ML; Start 11/23/18 at 13:30 Dextrose (D50w Syringe) 50 ml Q15M PRN IV DECREASED GLUCOSE Last administered on 12/10/18 13:14; Admin Dose 50 ML; Start 11/23/18 at 13:30 Glucagon (Glucagen) 1 mg Q15M PRN IM DECREASED GLUCOSE; Start 11/23/18 at 13:30 Glucose (Glutose) 15 gm Q15M PRN BUCCAL DECREASED GLUCOSE; Start 11/23/18 at 13:30 Phenylephrine HCl 80 mg/Dextrose 250 ml @ 18.75 mls/ hr TITRATE IV ; Start 11/24/18 at 00:00 Alteplase, Recombinant (Cathflo (Activase)) 2 mg MAY REPEAT X1 PRN CATHETER IF CATHETER REMAINS OCCULUDED Last administered on 12/02/18 15:47; Admin Dose 2 MG; Start 11/26/18 at 03:00 Albumin Human 100 ml @ 100 mls/hr DURING DIALYSIS PRN IV HYPOTENSION DURING HD Last administered on 12/16/18 08:52; Admin Dose 100 MLS/HR; Start 11/26/18 at 14:00 Levothyroxine Sodium (Synthroid) 75 mcg BEFORE BREAKFAST NGT Last administered on 12/17/18 06:22; Admin Dose 75 MCG; Start 11/29/18 at 07:00 Sodium Chloride 154 meq/Dextrose 1,038.5 ml @ 40 mls/hr Q24H IV Last administered on 12/16/18 18:09; Admin Dose 40 MLS/HR; Start 11/30/18 at 10:00 Collagenase (Santyl) 1 applic DAILY TOP Last administered on 12/16/18 09:03; Admin Dose 1 APPLIC; Start 12/01/18 at 16:30 Amiodarone HCl (Cordarone) 200 mg BID NGT Last administered on 12/16/18 20:27; Admin Dose 200 MG; Start 12/03/18 at 21:00 Acetaminophen (Tylenol Liquid) 650 mg Q6H PRN NGT PAIN LEVEL 1-3 OR FEVER; Start 12/06/18 at 09:00 Famotidine (Pepcid) 20 mg DAILY NGT Last administered on 12/16/18 09:05; Admin Dose 20 MG; Start 12/06/18 at 09:00 Folic Acid (Folic Acid) 1 mg DAILY NGT Last administered on 12/16/18 09:05; Admin Dose 1 MG; Start 12/06/18 at 09:00 Midodrine (Proamatine) 5 mg TID@09,13,17 GTB Last administered on 12/16/18 18:19; Admin Dose 5 MG; Start 12/07/18 at 09:00 Norepinephrine 32 mg/Dextrose 250 ml @ 0.47 mls/hr TITRATE IV Last administered on 12/12/18 09:48; Admin Dose 0.47 MLS/HR; Start 12/08/18 at 09:00 Epoetin Margarito-epbx (RETACRIT(esrd)) 10,000 unit MoWeFr@1700 SC Last administered on 12/14/18 19:07; Admin Dose 10,000 UNIT; Start 12/11/18 at 17:00; Status Hold Eye Lubricant (Artificial Tears Oph) 2 drop QID BOTH EYES Last administered on 12/16/18 20:27; Admin Dose 2 DROP; Start 12/10/18 at 09:00 Methylprednisolone Sodium Succinate (Solu-Medrol) 40 mg Q6 IV Last administered on 12/17/18 06:22; Admin Dose 40 MG; Start 12/10/18 at 18:00 Diagnostic Test (Pha) (Accu-Chek) 1 ea Q4H XX Last administered on 12/16/18 18:11; Admin Dose 1 EA; Start 12/11/18 at 13:00 Ertapenem 0.5 gm/ Sodium Chloride 100 ml @ 200 mls/hr Q24H IVPB Last administered on 12/16/18 18:30; Admin Dose 200 MLS/HR; Start 12/15/18 at 18:00 Lorazepam (Ativan) 1 mg Q4H PRN IV AGITATION/ANXIETY Last administered on 12/16/18 04:21; Admin Dose 1 MG; Start 12/15/18 at 11:00 Morphine Sulfate (morphine) 1 mg Q4H PRN IV SEVERE PAIN LEVEL 7-10 Last administered on 5/8/19at 00:11; Admin Dose 1 MG; Start 12/15/18 at 11:00 Allergies: Coded Allergies: Penicillins (Verified Allergy, Unknown, 12/16/18) tazobactam (Verified Allergy, Unknown, 12/16/18) vancomycin (Verified Allergy, Unknown, 12/16/18) Past Surgical History Past Surgical Hx: other Social History Alcohol Use: none Smoking Status: Never smoker Drug Use: none Exam/Review of Systems Exam Vitals Vital Signs Date Temp Pulse Resp B/P (MAP) Pulse Ox O2 O2 Flow FiO2 Time Delivery Rate 12/17/18 88 24 152/80 100 Mechanical 06:00 (104) Ventilator 12/17/18 30 05:20 12/17/18 97.8 04:00 Intake and Output 12/16/18 12/16/18 12/17/18 1515:00 23:00 07:00 IntakeIntake Total 1030 ml 300 ml 280 ml OutputOutput Total 4500 ml BalanceBalance -3470 ml 300 ml 280 ml Results Result Diagram: 12/17/18 0501 12/17/18 0501 Results 24hrs Laboratory Tests Test 12/16/18 09:13 12/16/18 13:22 12/16/18 18:21 12/16/18 20:26 Bedside Glucose 166 185 170 190 Test 12/17/18 00:33 12/17/18 05:01 12/17/18 05:19 Bedside Glucose 177 143 White Blood Count 18.4 #H Red Blood Count 3.47 L Hemoglobin 10.6 L Hematocrit 31.8 L Mean Corpuscular Volume 91.6 Mean Corpuscular 30.5 Hemoglobin Mean Corpuscular 33.3 Hemoglobin Concent Red Cell Distribution 17.0 H Width Platelet Count 32 L Mean Platelet Volume Immature Granulocytes % 0.800 H Neutrophils % Lymphocytes % Monocytes % Eosinophils % Basophils % Nucleated Red Blood 0.0 Cells % Immature Granulocytes # 0.150 H Neutrophils # Lymphocytes # Monocytes # Eosinophils # Basophils # Nucleated Red Blood Cells # Sodium Level 142 Potassium Level 4.7 Chloride Level 108 Carbon Dioxide Level 21 Anion Gap 13 Blood Urea Nitrogen 74 H Creatinine 1.37 H Est Glomerular Filtrat 40 L Rate mL/min Glucose Level 137 Calcium Level 8.3 L Medications Medication Current Medications Ondansetron HCl (Zofran Inj) 4 mg Q6H PRN IV NAUSEA AND/OR VOMITING Last administered on 12/11/18 06:53; Admin Dose 4 MG; Start 11/21/18 at 05:30 Albuterol/ Ipratropium (Duoneb) 3 ml Q2H RESP THERAPY PRN NEB SHORTNESS OF BREATH; Start 11/21/18 at 05:30 Caspofungin 50 mg/ Sodium Chloride 250 ml @ 250 mls/hr Q24H IVPB Last administered on 12/16/18 13:12; Admin Dose 250 MLS/HR; Start 11/24/18 at 13:00 Miscellaneous Information 1 ea NOTE XX ; Start 11/23/18 at 13:30 Glucose (Glutose) 15 gm Q15M PRN PO DECREASED GLUCOSE; Start 11/23/18 at 13:30 Glucose (Glutose) 22.5 gm Q15M PRN PO DECREASED GLUCOSE; Start 11/23/18 at 13:30 Dextrose (D50w Syringe) 25 ml Q15M PRN IV DECREASED GLUCOSE Last administered on 12/09/18 13:59; Admin Dose 25 ML; Start 11/23/18 at 13:30 Dextrose (D50w Syringe) 50 ml Q15M PRN IV DECREASED GLUCOSE Last administered on 12/10/18 13:14; Admin Dose 50 ML; Start 11/23/18 at 13:30 Glucagon (Glucagen) 1 mg Q15M PRN IM DECREASED GLUCOSE; Start 11/23/18 at 13:30 Glucose (Glutose) 15 gm Q15M PRN BUCCAL DECREASED GLUCOSE; Start 11/23/18 at 13:30 Phenylephrine HCl 80 mg/Dextrose 250 ml @ 18.75 mls/ hr TITRATE IV ; Start 11/24/18 at 00:00 Alteplase, Recombinant (Cathflo (Activase)) 2 mg MAY REPEAT X1 PRN CATHETER IF CATHETER REMAINS OCCULUDED Last administered on 12/02/18 15:47; Admin Dose 2 MG; Start 11/26/18 at 03:00 Albumin Human 100 ml @ 100 mls/hr DURING DIALYSIS PRN IV HYPOTENSION DURING HD Last administered on 12/16/18 08:52; Admin Dose 100 MLS/HR; Start 11/26/18 at 1 4:00 Levothyroxine Sodium (Synthroid) 75 mcg BEFORE BREAKFAST NGT Last administered on 12/17/18 06:22; Admin Dose 75 MCG; Start 11/29/18 at 07:00 Sodium Chloride 154 meq/Dextrose 1,038.5 ml @ 40 mls/hr Q24H IV Last administered on 12/16/18 18:09; Admin Dose 40 MLS/HR; Start 11/30/18 at 10:00 Collagenase (Santyl) 1 applic DAILY TOP Last administered on 12/16/18 09:03; Admin Dose 1 APPLIC; Start 12/01/18 at 16:30 Amiodarone HCl (Cordarone) 200 mg BID NGT Last administered on 12/16/18 20:27; Admin Dose 200 MG; Start 12/03/18 at 21:00 Acetaminophen (Tylenol Liquid) 650 mg Q6H PRN NGT PAIN LEVEL 1-3 OR FEVER; Start 12/06/18 at 09:00 Famotidine (Pepcid) 20 mg DAILY NGT Last administered on 12/16/18 09:05; Admin Dose 20 MG; Start 12/06/18 at 09:00 Folic Acid (Folic Acid) 1 mg DAILY NGT Last administered on 12/16/18 09:05; Admin Dose 1 MG; Start 12/06/18 at 09:00 Midodrine (Proamatine) 5 mg TID@,13,17 GTB Last administered on 12/16/18 18:19; Admin Dose 5 MG; Start 12/07/18 at 09:00 Norepinephrine 32 mg/Dextrose 250 ml @ 0.47 mls/hr TITRATE IV Last administered on 12/12/18 09:48; Admin Dose 0.47 MLS/HR; Start 12/08/18 at 09:00 Epoetin Margarito-epbx (RETACRIT(esrd)) 10,000 unit MoWeFr@1700 SC Last administered on 12/14/18 19:07; Admin Dose 10,000 UNIT; Start 12/11/18 at 17:00; Status Hold Eye Lubricant (Artificial Tears Oph) 2 drop QID BOTH EYES Last administered on 12/16/18 20:27; Admin Dose 2 DROP; Start 12/10/18 at 09:00 Methylprednisolone Sodium Succinate (Solu-Medrol) 40 mg Q6 IV Last administered on 12/17/18 06:22; Admin Dose 40 MG; Start 12/10/18 at 18:00 Diagnostic Test (Pha) (Accu-Chek) 1 ea Q4H XX Last administered on 12/16/18 18:11; Admin Dose 1 EA; Start 12/11/18 at 13:00 Ertapenem 0.5 gm/ Sodium Chloride 100 ml @ 200 mls/hr Q24H IVPB Last administered on 12/16/18 18:30; Admin Dose 200 MLS/HR; Start 12/15/18 at 18:00 Lorazepam (Ativan) 1 mg Q4H PRN IV AGITATION/ANXIETY Last administered on 12/16/18 04:21; Admin Dose 1 MG; Start 12/15/18 at 11:00 Morphine Sulfate (morphine) 1 mg Q4H PRN IV SEVERE PAIN LEVEL 7-10 Last administered on 12/16/18 00:11; Admin Dose 1 MG; Start 12/15/18 at 11:00 JULIEN SALINAS December 17, 2018 08:14
[2018-12-17] MEDS: AMIODARONE 200 MG TAB NGT SCH ×2 (09:00→22:40)
[2018-12-17] MEDS: FOLIC ACID 1 MG TAB NGT SCH (09:00)
[2018-12-17] MEDS: FAMOTIDINE 20 MG TAB NGT SCH (09:00)
[2018-12-17] MEDS: MIDODRINE 5 MG TAB GTB SCH ×3 (11:08→17:00)
[2018-12-17] MEDS: ARTIFICIAL TEARS 15 ML OPH BOTH EYES SCH ×5 (11:08→22:39)
[2018-12-17] MEDS: BALSAM PERU/CASTOR OIL 60 GM TUBE TOP SCH ×2 (11:10→22:40)
--- NOTE | 2018-12-17 11:17 | CONS ---
Consult Date/Type/Reason Admit Date/Time Nov 21, 2018 at 04:53 Initial Consult Date Type of Consult Pulmonary Requesting Provider: RIKA STOCK Date/Time of Note DATE: 12/17/18 TIME: 11:17 Subjective Patient is comfortable this morning. No respiratory distress continues mechanical ventilation. Continues hemodialysis. Objective Vital Signs Date Temp Pulse Resp B/P (MAP) Pulse Ox O2 O2 Flow FiO2 Time Delivery Rate 12/17/18 91 22 147/88 100 10:00 (107) 12/17/18 30 08:00 12/17/18 99.8 Mechanical 08:00 Ventilator Intake and Output 12/16/18 12/16/18 12/17/18 1515:00 23:00 07:00 IntakeIntake Total 1030 ml 300 ml 280 ml OutputOutput Total 4500 ml BalanceBalance -3470 ml 300 ml 280 ml Exam GENERAL: Frail cachectic lady on mechanical ventilation via new tracheostomy. VITAL SIGNS: per chart NECK: Supple. No JVD or lymphadenopathy. CARDIAC EXAM: S1, S2. No added sounds or murmurs. CHEST: clear bilaterally, No added sounds, rales or wheezes ABDOMEN: Soft, nontender. No guarding or rebound. EXTREMITIES: No cyanosis, clubbing or edema. NEUROLOGIC: Generalized weakness. No focal deficits. Vent Setting Ventilator Support Mode: AC Fraction of Inspired Oxygen pe: 30 Positive End Expiratory Pressu: 5.0 Results/Medications Result Diagram: 12/17/18 0501 12/17/18 0501 Results 24 hrs Laboratory Tests Test 12/16/18 13:22 12/16/18 18:21 12/16/18 20:26 12/17/18 00:33 Bedside Glucose 185 170 190 177 Test 12/17/18 05:01 12/17/18 05:19 White Blood Count 18.4 #H Red Blood Count 3.47 L Hemoglobin 10.6 L Hematocrit 31.8 L Mean Corpuscular 91.6 Volume Mean Corpuscular 30.5 Hemoglobin Mean Corpuscular 33.3 Hemoglobin Concent Red Cell Distribution 17.0 H Width Platelet Count 32 L Mean Platelet Volume Immature Granulocytes 0.800 H % Neutrophils % Segmented Neutrophils 97 H % (Manual) Band Neutrophils % 1 (Manual) Lymphocytes % Lymphocytes % 2 L (Manual) Monocytes % Eosinophils % Basophils % Nucleated Red Blood 0.0 Cells % Immature Granulocytes 0.150 H # Neutrophils # Neutrophils # 17.9 H (Manual) Band Neutrophils # 0.1 Lymphocytes (Manual) 0.3 L Lymphocytes # Monocytes # Eosinophils # Basophils # Nucleated Red Blood Cells # Platelet Estimate SIG DECREASED Polychromasia 3+ Poikilocytosis 1+ Anisocytosis 1+ Microcytosis 1+ Ovalocytes 1+ Sodium Level 142 Potassium Level 4.7 Chloride Level 108 Carbon Dioxide Level 21 Anion Gap 13 Blood Urea Nitrogen 74 H Creatinine 1.37 H Est Glomerular 40 L Filtrat Rate mL/min Glucose Level 137 Calcium Level 8.3 L Bedside Glucose 143 Medications Current Medications Ondansetron HCl (Zofran Inj) 4 mg Q6H PRN IV NAUSEA AND/OR VOMITING Last administered on 12/11/18at 06:53; Admin Dose 4 MG; Start 11/21/18 at 05:30 Albuterol/ Ipratropium (Duoneb) 3 ml Q2H RESP THERAPY PRN NEB SHORTNESS OF BREATH; Start 11/21/18 at 05:30 Caspofungin 50 mg/ Sodium Chloride 250 ml @ 250 mls/hr Q24H IVPB Last administered on 12/16/18at 13:12; Admin Dose 250 MLS/HR; Start 11/24/18 at 13:00 Miscellaneous Information 1 ea NOTE XX ; Start 11/23/18 at 13:30 Glucose (Glutose) 15 gm Q15M PRN PO DECREASED GLUCOSE; Start 11/23/18 at 13:30 Glucose (Glutose) 22.5 gm Q15M PRN PO DECREASED GLUCOSE; Start 11/23/18 at 13:30 Dextrose (D50w Syringe) 25 ml Q15M PRN IV DECREASED GLUCOSE Last administered on 12/09/18at 13:59; Admin Dose 25 ML; Start 11/23/18 at 13:30 Dextrose (D50w Syringe) 50 ml Q15M PRN IV DECREASED GLUCOSE Last administered on 12/10/18at 13:14; Admin Dose 50 ML; Start 11/23/18 at 13:30 Glucagon (Glucagen) 1 mg Q15M PRN IM DECREASED GLUCOSE; Start 11/23/18 at 13:30 Glucose (Glutose) 15 gm Q15M PRN BUCCAL DECREASED GLUCOSE; Start 11/23/18 at 13:30 Phenylephrine HCl 80 mg/Dextrose 250 ml @ 18.75 mls/ hr TITRATE IV ; Start 11/24/18 at 00:00 Alteplase, Recombinant (Cathflo (Activase)) 2 mg MAY REPEAT X1 PRN CATHETER IF CATHETER REMAINS OCCULUDED Last administered on 12/02/18 15:47; Admin Dose 2 MG; Start 11/26/18 at 03:00 Albumin Human 100 ml @ 100 mls/hr DURING DIALYSIS PRN IV HYPOTENSION DURING HD Last administered on 12/16/18 08:52; Admin Dose 100 MLS/HR; Start 11/26/18 at 14:00 Levothyroxine Sodium (Synthroid) 75 mcg BEFORE BREAKFAST NGT Last administered on 12/17/18 06:22; Admin Dose 75 MCG; Start 11/29/18 at 07:00 Sodium Chloride 154 meq/Dextrose 1,038.5 ml @ 40 mls/hr Q24H IV Last administered on 12/16/18 18:09; Admin Dose 40 MLS/HR; Start 11/30/18 at 10:00 Collagenase (Santyl) 1 applic DAILY TOP Last administered on 12/16/18 09:03; Admin Dose 1 APPLIC; Start 12/01/18 at 16:30 Amiodarone HCl (Cordarone) 200 mg BID NGT Last administered on 12/16/18 20:27; Admin Dose 200 MG; Start 12/03/18 at 21:00 Acetaminophen (Tylenol Liquid) 650 mg Q6H PRN NGT PAIN LEVEL 1-3 OR FEVER; Start 12/06/18 at 09:00 Famotidine (Pepcid) 20 mg DAILY NGT Last administered on 12/16/18 09:05; Admin Dose 20 MG; Start 12/06/18 at 09:00 Folic Acid (Folic Acid) 1 mg DAILY NGT Last administered on 12/16/18 09:05; Admin Dose 1 MG; Start 12/06/18 at 09:00 Midodrine (Proamatine) 5 mg TID@,,17 GTB Last administered on 12/16/18 18:19; Admin Dose 5 MG; Start 12/07/18 at 09:00 Norepinephrine 32 mg/Dextrose 250 ml @ 0.47 mls/hr TITRATE IV Last administered on 12/12/18 09:48; Admin Dose 0.47 MLS/HR; Start 12/08/18 at 09:00 Epoetin Margarito-epbx (RETACRIT(esrd)) 10,000 unit MoWeFr@1700 SC Last administered on 12/14/18 19:07; Admin Dose 10,000 UNIT; Start 12/11/18 at 17:00; Status Hold Eye Lubricant (Artificial Tears Oph) 2 drop QID BOTH EYES Last administered on 12/17/18 11:08; Admin Dose 2 DROP; Start 12/10/18 at 09:00 Methylprednisolone Sodium Succinate (Solu-Medrol) 40 mg Q6 IV Last administered on 12/17/18 11:08; Admin Dose 40 MG; Start 12/10/18 at 18:00 Diagnostic Test (Pha) (Accu-Chek) 1 ea Q4H XX Last administered on 12/16/18 18:11; Admin Dose 1 EA; Start 12/11/18 at 13:00 Ertapenem 0.5 gm/ Sodium Chloride 100 ml @ 200 mls/hr Q24H IVPB Last administ ered on 12/16/18 18:30; Admin Dose 200 MLS/HR; Start 12/15/18 at 18:00 Lorazepam (Ativan) 1 mg Q4H PRN IV AGITATION/ANXIETY Last administered on 12/16/18 04:21; Admin Dose 1 MG; Start 12/15/18 at 11:00 Morphine Sulfate (morphine) 1 mg Q4H PRN IV SEVERE PAIN LEVEL 7-10 Last administered on 12/16/18 00:11; Admin Dose 1 MG; Start 12/15/18 at 11:00 Assessment/Plan Hospital Course (Demo Recall) IMP: 1. Status post septic Shock 2. Gram Negative Bacteremia 3. 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 ESRD on HD 5. Cardiomyopathy 6. Severe Thrombocytopenia 7. Anemia RECS: 1. Continue mechanical ventilation and trach site care. 2. Minimize sedation 3. Titrate pressors to MAP > 65 mm Hg 4. HD/UF per Renal 5. Abx per ID Discussed with family at bedside will need DC planning. Pending transfer to telemetry and then [facility] facility 40 min cc time NINA MORRIS MD, FCCP December 17, 2018 11:17
[2018-12-17] MEDS: COLLAGENASE 5 GM (UD JAR) TOP SCH (11:26)
[2018-12-17] MEDS ORDERED: BIOTENE SALIVA STIMULANT SPRAY MUCOUSMEM PRN (11:30)
[2018-12-17] MEDS: CASPOFUNGIN 50 MG in SOD CHLORIDE 0.9% 250 ML IVPB SCH (13:44)
[2018-12-17] MEDS: METOCLOPRAMIDE 10 MG INJ IV SCH ×2 (13:44→22:41)
--- NOTE | 2018-12-17 14:29 | PN ---
Date/Time of Note Date/Time of Note DATE: 12/17/18 TIME: 14:27 Assessment/Plan VTE Prophylaxis Risk score (from Ns)>0 risk: 12 SCD applied (from Ns): Yes Pharmacological prophylaxis: NA/contraindicated Pharm contraindication: blood coag disorder Lines/Catheters IV [facility]from [facility] Mid Line Urinary Cath still in place: No Assessment/Plan Hospital Course 58 yo female with ESRD, cirrhosis, DMII presents with hypoglycemia, leg infection. Suffered cardiac and respiratory arrest, now intubated Acute respiratory failure: - MV per pulm -Status post tracheostomy - s/p G tube Septic shock: - Antibiotics per ID Hypoglycemia: No history of diabetes and patient not on any insulin or sulfonylurea or any other diabetic medication - Continue IV dextrose and tube feeds Left lower extremity wound - Antibiotics per ID -Venous study was negative for DVT A Fib: - Amiodarone ESRD with fluid overload - HD per nephrology Hypothyroidism: Continue Synthroid History of pacemaker: No acute issue Prophylaxis: SCDs DC planning: Placement in subacute Result Diagram: 12/17/18 0501 12/17/18 0501 Results 24hrs Laboratory Tests Test 12/16/18 18:21 12/16/18 20:26 12/17/18 00:33 12/17/18 05:01 Bedside Glucose 170 190 177 White Blood Count 18.4 #H Red Blood Count 3.47 L Hemoglobin 10.6 L Hematocrit 31.8 L Mean Corpuscular 91.6 Volume Mean Corpuscular 30.5 Hemoglobin Mean Corpuscular 33.3 Hemoglobin Concent Red Cell Distribution 17.0 H Width Platelet Count 32 L Mean Platelet Volume Immature Granulocytes 0.800 H % Neutrophils % Segmented Neutrophils 97 H % (Manual) Band Neutrophils % 1 (Manual) Lymphocytes % Lymphocytes % 2 L (Manual) Monocytes % Eosinophils % Basophils % Nucleated Red Blood 0.0 Cells % Immature Granulocytes 0.150 H # Neutrophils # Neutrophils # 17.9 H (Manual) Band Neutrophils # 0.1 Lymphocytes (Manual) 0.3 L Lymphocytes # Monocytes # Eosinophils # Basophils # Nucleated Red Blood Cells # Platelet Estimate SIG DECREASED Polychromasia 3+ Poikilocytosis 1+ Anisocytosis 1+ Microcytosis 1+ Ovalocytes 1+ Sodium Level 142 Potassium Level 4.7 Chloride Level 108 Carbon Dioxide Level 21 Anion Gap 13 Blood Urea Nitrogen 74 H Creatinine 1.37 H Est Glomerular 40 L Filtrat Rate mL/min Glucose Level 137 Calcium Level 8.3 L Test 12/17/18 05:19 12/17/18 11:13 Bedside Glucose 143 134 Subjective 24 Hr Interval Summary Subjective hx not possible: pt non-verbal Exam/Review of Systems Exam Vitals Vital Signs Date Temp Pulse Resp B/P (MAP) Pulse Ox O2 O2 Flow FiO2 Time Delivery Rate 12/17/18 79 16 141/73 100 13:00 (95) 12/17/18 99.6 Mechanical 12:00 Ventilator 12/17/18 30 08:00 Intake and Output 12/16/18 12/16/18 12/17/18 1515:00 23:00 07:00 IntakeIntake Total 1030 ml 300 ml 320 ml OutputOutput Total 4500 ml BalanceBalance -3470 ml 300 ml 320 ml Constitutional: non-verbal Respiratory: clear to auscultation Cardiovascular: regular rate and rhythm Gastrointestinal: soft; No distended Musculoskeletal: nl extremities to inspection Results Results 24hrs Laboratory Tests Test 12/16/18 18:21 12/16/18 20:26 12/17/18 00:33 12/17/18 05:01 Bedside Glucose 170 190 177 White Blood Count 18.4 #H Red Blood Count 3.47 L Hemoglobin 10.6 L Hematocrit 31.8 L Mean Corpuscular 91.6 Volume Mean Corpuscular 30.5 Hemoglobin Mean Corpuscular 33.3 Hemoglobin Concent Red Cell Distribution 17.0 H Width Platelet Count 32 L Mean Platelet Volume Immature Granulocytes 0.800 H % Neutrophils % Segmented Neutrophils 97 H % (Manual) Band Neutrophils % 1 (Manual) Lymphocytes % Lymphocytes % 2 L (Manual) Monocytes % Eosinophils % Basophils % Nucleated Red Blood 0.0 Cells % Immature Granulocytes 0.150 H # Neutrophils # Neutrophils # 17.9 H (Manual) Band Neutrophils # 0.1 Lymphocytes (Manual) 0.3 L Lymphocytes # Monocytes # Eosinophils # Basophils # Nucleated Red Blood Cells # Platelet Estimate SIG DECREASED Polychromasia 3+ Poikilocytosis 1+ Anisocytosis 1+ Microcytosis 1+ Ovalocytes 1+ Sodium Level 142 Potassium Level 4.7 Chloride Level 108 Carbon Dioxide Level 21 Anion Gap 13 Blood Urea Nitrogen 74 H Creatinine 1.37 H Est Glomerular 40 L Filtrat Rate mL/min Glucose Level 137 Calcium Level 8.3 L Test 12/17/18 05:19 12/17/18 11:13 Bedside Glucose 143 134 Medications Medication Current Medications Ondansetron HCl (Zofran Inj) 4 mg Q6H PRN IV NAUSEA AND/OR VOMITING Last administered on 12/11/18 06:53; Admin Dose 4 MG; Start 11/21/18 at 05:30 Albuterol/ Ipratropium (Duoneb) 3 ml Q2H RESP THERAPY PRN NEB SHORTNESS OF BREATH; Start 11/21/18 at 05:30 Caspofungin 50 mg/ Sodium Chloride 250 ml @ 250 mls/hr Q24H IVPB Last adm inistered on 12/17/18at 13:44; Admin Dose 250 MLS/HR; Start 11/24/18 at 13:00 Miscellaneous Information 1 ea NOTE XX ; Start 11/23/18 at 13:30 Glucose (Glutose) 15 gm Q15M PRN PO DECREASED GLUCOSE; Start 11/23/18 at 13:30 Glucose (Glutose) 22.5 gm Q15M PRN PO DECREASED GLUCOSE; Start 11/23/18 at 13: 30 Dextrose (D50w Syringe) 25 ml Q15M PRN IV DECREASED GLUCOSE Last administered on 12/09/18at 13:59; Admin Dose 25 ML; Start 11/23/18 at 13:30 Dextrose (D50w Syringe) 50 ml Q15M PRN IV DECREASED GLUCOSE Last administered on 12/10/18at 13:14; Admin Dose 50 ML; Start 11/23/18 at 13:30 Glucagon (Glucagen) 1 mg Q15M PRN IM DECREASED GLUCOSE; Start 11/23/18 at 13:30 Glucose (Glutose) 15 gm Q15M PRN BUCCAL DECREASED GLUCOSE; Start 11/23/18 at 13:30 Phenylephrine HCl 80 mg/Dextrose 250 ml @ 18.75 mls/ hr TITRATE IV ; Start 11/24/18 at 00:00 Alteplase, Recombinant (Cathflo (Activase)) 2 mg MAY REPEAT X1 PRN CATHETER IF CATHETER REMAINS OCCULUDED Last administered on 12/02/18at 15:47; Admin Dose 2 M G; Start 11/26/18 at 03:00 Albumin Human 100 ml @ 100 mls/hr DURING DIALYSIS PRN IV HYPOTENSION DURING HD Last administered on 12/16/18 08:52; Admin Dose 100 MLS/HR; Start 11/26/18 at 14:00 Levothyroxine Sodium (Synthroid) 75 mcg BEFORE BREAKFAST NGT Last administered on 12/17/18 06:22; Admin Dose 75 MCG; Start 11/29/18 at 07:00 Sodium Chloride 154 meq/Dextrose 1,038.5 ml @ 40 mls/hr Q24H IV Last administered on 12/16/18 18:09; Admin Dose 40 MLS/HR; Start 11/30/18 at 10:00 Collagenase (Santyl) 1 applic DAILY TOP Last administered on 12/17/18 11:26; Admin Dose 1 APPLIC; Start 12/01/18 at 16:30 Amiodarone HCl (Cordarone) 200 mg BID NGT Last administered on 12/16/18 20:27; Admin Dose 200 MG; Start 12/03/18 at 21:00 Acetaminophen (Tylenol Liquid) 650 mg Q6H PRN NGT PAIN LEVEL 1-3 OR FEVER; Start 12/06/18 at 09:00 Famotidine (Pepcid) 20 mg DAILY NGT Last administered on 12/16/18 09:05; Admin Dose 20 MG; Start 12/06/18 at 09:00 Folic Acid (Folic Acid) 1 mg DAILY NGT Last administered on 12/16/18 09:05; Admin Dose 1 MG; Start 12/06/18 at 09:00 Midodrine (Proamatine) 5 mg TID@,,17 GTB Last administered on 12/16/18 18:19; Admin Dose 5 MG; Start 12/07/18 at 09:00 Norepinephrine 32 mg/Dextrose 250 ml @ 0.47 mls/hr TITRATE IV Last administered on 12/12/18 09:48; Admin Dose 0.47 MLS/HR; Start 12/08/18 at 09:00 Epoetin Margarito-epbx (RETACRIT(esrd)) 10,000 unit MoWeFr@1700 SC Last administered on 12/14/18 19:07; Admin Dose 10,000 UNIT; Start 12/11/18 at 17:00; Status Hold Eye Lubricant (Artificial Tears Oph) 2 drop QID BOTH EYES Last administered on 12/17/18 13:44; Admin Dose 2 DROP; Start 12/10/18 at 09:00 Methylprednisolone Sodium Succinate (Solu-Medrol) 40 mg Q6 IV Last administered on 12/17/18 11:08; Admin Dose 40 MG; Start 12/10/18 at 18:00 Diagnostic Test (Pha) (Accu-Chek) 1 ea Q4H XX Last administered on 12/16/18 18:11; Admin Dose 1 EA; Start 12/11/18 at 13:00 Ertapenem 0.5 gm/ Sodium Chloride 100 ml @ 200 mls/hr Q24H IVPB Last administered on 12/16/18 18:30; Admin Dose 200 MLS/HR; Start 12/15/18 at 18:00 Lorazepam (Ativan) 1 mg Q4H PRN IV AGITATION/ANXIETY Last administered on 12/16/18 04:21; Admin Dose 1 MG; Start 12/15/18 at 11:00 Morphine Sulfate (morphine) 1 mg Q4H PRN IV SEVERE PAIN LEVEL 7-10 Last administered on 12/16/18 00:11; Admin Dose 1 MG; Start 12/15/18 at 11:00 Metoclopramide HCl (Reglan) 5 mg Q8 IV Last administered on 12/17/18 13:44; Admin Dose 5 MG; Start 12/17/18 at 12:00 RIKA STOCK December 17, 2018 14:29
[2018-12-17] MEDS ORDERED: ADENOSINE 6 MG INJ ONE (15:00)
[2018-12-17] MEDS: LORAZEPAM 2 MG INJ IV PRN (15:20)
--- NOTE | 2018-12-17 15:58 | CONS ---
Assessment/Plan Assessment/Plan Hospital Course (Demo Recall) Remains unchanged WBC today 10.4 neutrophils 97 Antimicrobials: Cancidas, Invanz Microbiology: Blood culture on admission grew Klebsiella ESBL, repeat blood cultures negative, left thigh wound culture grew Klebsiella ESBL and Leah albicans Allergy: Zosyn, vancomycin Indwelling: Right upper thigh Davie catheter, left femoral triple-lumen catheter, trach Physical examination: This is a chronically ill-appearing cachectic middle-aged woman who is laying comfortably in bed. Head atraumatic normocephalic. Neck is supple. Chest rise symmetrical. Breath sounds diminished bases. Heart: S1-S2, irreg. Abdomen distended. Bowel sounds hypoactive. Extremities with bilateral edema, cyanotic, multiple ecchymotic areas and bruises, left upper thigh dressing present Assessment: 1. Sepsis 2. Acute hypoxemic respiratory failure secondary to CHF exacerbation/probable pneumonia 3. Klebsiella ESBL bacteremia likely 2 to #4 4. 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 End-stage renal disease, hemodialysis dependent 6. Atrial fibrillation/PPM 7. Unstageable sacral decubitus 8. History of peritoneal dialysis with peritoneal dialysis still in place 9. Ascites status post paracentesis 3 weeks ago 10. Failure to thrive 11. Progressive thrombocytopenia 12. B mastoiditis and acute sinusitis Plan: Remains unchanged, continue antibiotics indefinitely for infected graft, poss Kim, prognosis poor Consultation Date/Type/Reason Admit Date/Time Nov 21, 2018 at 04:53 Initial Consult Date Type of Consult id Requesting Provider: RIKA STOCK Date/Time of Note DATE: 12/17/18 TIME: 15:57 Exam/Review of Systems Exam Vitals Vital Signs Date Temp Pulse Resp B/P (MAP) Pulse Ox O2 O2 Flow FiO2 Time Delivery Rate 12/17/18 79 16 141/73 100 13:00 (95) 12/17/18 99.6 Mechanical 12:00 Ventilator 12/17/18 30 08:00 Intake and Output 12/16/18 12/16/18 12/17/18 1515:00 23:00 07:00 IntakeIntake Total 1030 ml 300 ml 320 ml OutputOutput Total 4500 ml BalanceBalance -3470 ml 300 ml 320 ml Results Result Diagram: 12/17/18 0501 12/17/18 0501 Results 24hrs Laboratory Tests Test 12/16/18 18:21 12/16/18 20:26 12/17/18 00:33 12/17/18 05:01 Bedside Glucose 170 190 177 White Blood Count 18.4 #H Red Blood Count 3.47 L Hemoglobin 10.6 L Hematocrit 31.8 L Mean Corpuscular 91.6 Volume Mean Corpuscular 30.5 Hemoglobin Mean Corpuscular 33.3 Hemoglobin Concent Red Cell Distribution 17.0 H Width Platelet Count 32 L Mean Platelet Volume Immature Granulocytes 0.800 H % Neutrophils % Segmented Neutrophils 97 H % (Manual) Band Neutrophils % 1 (Manual) Lymphocytes % Lymphocytes % 2 L (Manual) Monocytes % Eosinophils % Basophils % Nucleated Red Blood 0.0 Cells % Immature Granulocytes 0.150 H # Neutrophils # Neutrophils # 17.9 H (Manual) Band Neutrophils # 0.1 Lymphocytes (Manual) 0.3 L Lymphocytes # Monocytes # Eosinophils # Basophils # Nucleated Red Blood Cells # Platelet Estimate SIG DECREASED Polychromasia 3+ Poikilocytosis 1+ Anisocytosis 1+ Microcytosis 1+ Ovalocytes 1+ Sodium Level 142 Potassium Level 4.7 Chloride Level 108 Carbon Dioxide Level 21 Anion Gap 13 Blood Urea Nitrogen 74 H Creatinine 1.37 H Est Glomerular 40 L Filtrat Rate mL/min Glucose Level 137 Calcium Level 8.3 L Test 12/17/18 05:19 12/17/18 11:13 12/17/18 15:24 Bedside Glucose 143 134 108 Medications Medication Current Medications Ondansetron HCl (Zofran Inj) 4 mg Q6H PRN IV NAUSEA AND/OR VOMITING Last administered on 12/11/18at 06:53; Admin Dose 4 MG; Start 11/21/18 at 05:30 Albuterol/ Ipratropium (Duoneb) 3 ml Q2H RESP THERAPY PRN NEB SHORTNESS OF BREATH; Start 11/21/18 at 05:30 Caspofungin 50 mg/ Sodium Chloride 250 ml @ 250 mls/hr Q24H IVPB Last administered on 12/17/18at 13:44; Admin Dose 250 MLS/HR; Start 11/24/18 at 13:00 Miscellaneous Information 1 ea NOTE XX ; Start 11/23/18 at 13:30 Glucose (Glutose) 15 gm Q15M PRN PO DECREASED GLUCOSE; Start 11/23/18 at 13:30 Glucose (Glutose) 22.5 gm Q15M PRN PO DECREASED GLUCOSE; Start 11/23/18 at 13:30 Dextrose (D50w Syringe) 25 ml Q15M PRN IV DECREASED GLUCOSE Last administered on 12/09/18 13:59; Admin Dose 25 ML; Start 11/23/18 at 13:30 Dextrose (D50w Syringe) 50 ml Q15M PRN IV DECREASED GLUCOSE Last administered on 12/10/18 13:14; Admin Dose 50 ML; Start 11/23/18 at 13:30 Glucagon (Glucagen) 1 mg Q15M PRN IM DECREASED GLUCOSE; Start 11/23/18 at 13:30 Glucose (Glutose) 15 gm Q15M PRN BUCCAL DECREASED GLUCOSE; Start 11/23/18 at 13:30 Phenylephrine HCl 80 mg/Dextrose 250 ml @ 18.75 mls/ hr TITRATE IV ; Start 11/24/18 at 00:00 Alteplase, Recombinant (Cathflo (Activase)) 2 mg MAY REPEAT X1 PRN CATHETER IF CATHETER REMAINS OCCULUDED Last administered on 12/02/18 15:47; Admin Dose 2 MG; Start 11/26/18 at 03:00 Albumin Human 100 ml @ 100 mls/hr DURING DIALYSIS PRN IV HYPOTENSION DURING HD Last administered on 12/16/18 08:52; Admin Dose 100 MLS/HR; Start 11/26/18 at 14:00 Levothyroxine Sodium (Synthroid) 75 mcg BEFORE BREAKFAST NGT Last administered on 12/17/18 06:22; Admin Dose 75 MCG; Start 11/29/18 at 07:00 Sodium Chloride 154 meq/Dextrose 1,038.5 ml @ 40 mls/hr Q24H IV Last administered on 12/16/18 18:09; Admin Dose 40 MLS/HR; Start 11/30/18 at 10:00 Collagenase (Santyl) 1 applic DAILY TOP Last administered on 12/17/18 11:26; Admin Dose 1 APPLIC; Start 12/01/18 at 16:30 Amiodarone HCl (Cordarone) 200 mg BID NGT Last administered on 12/16/18 20:27; Admin Dose 200 MG; Start 12/03/18 at 21:00 Acetaminophen (Tylenol Liquid) 650 mg Q6H PRN NGT PAIN LEVEL 1-3 OR FEVER; Start 12/06/18 at 09:00 Famotidine (Pepcid) 20 mg DAILY NGT Last administered on 12/16/18 09:05; Admin Dose 20 MG; Start 12/06/18 at 09:00 Folic Acid (Folic Acid) 1 mg DAILY NGT Last administered on 12/16/18 09:05; Admin Dose 1 MG; Start 12/06/18 at 09:00 Midodrine (Proamatine) 5 mg TID@,13,17 GTB Last administered on 12/16/18 18:19; Admin Dose 5 MG; Start 12/07/18 at 09:00 Norepinephrine 32 mg/Dextrose 250 ml @ 0.47 mls/hr TITRATE IV Last administered on 12/12/18 09:48; Admin Dose 0.47 MLS/HR; Start 12/08/18 at 09:00 Epoetin Margarito-epbx (RETACRIT(esrd)) 10,000 unit MoWeFr@1700 SC Last administered on 12/14/18 19:07; Admin Dose 10,000 UNIT; Start 12/11/18 at 17:00; Status Hold Eye Lubricant (Artificial Tears Oph) 2 drop QID BOTH EYES Last administered on 12/17/18 13:44; Admin Dose 2 DROP; Start 12/10/18 at 09:00 Methylprednisolone Sodium Succinate (Solu-Medrol) 40 mg Q6 IV Last administered on 12/17/18 11:08; Admin Dose 40 MG; Start 12/10/18 at 18:00 Diagnostic Test (Pha) (Accu-Chek) 1 ea Q4H XX Last administered on 12/16/18 18:11; Admin Dose 1 EA; Start 12/11/18 at 13:00 Ertapenem 0.5 gm/ Sodium Chloride 100 ml @ 200 mls/hr Q24H IVPB Last administered on 12/16/18 18:30; Admin Dose 200 MLS/HR; Start 12/15/18 at 18:00 Lorazepam (Ativan) 1 mg Q4H PRN IV AGITATION/ANXIETY Last administered on 12/17/18 15:20; Admin Dose 1 MG; Start 12/15/18 at 11:00 Morphine Sulfate (morphine) 1 mg Q4H PRN IV SEVERE PAIN LEVEL 7-10 Last administered on 12/16/18at 00:11; Admin Dose 1 MG; Start 12/15/18 at 11:00 Metoclopramide HCl (Reglan) 5 mg Q8 IV Last administered on 12/17/18at 13:44; Admin Dose 5 MG; Start 12/17/18 at 12:00 KELSIE ELY NP December 17, 2018 15:58
[2018-12-17] MEDS: SODIUM CHLORIDE 23.4% 154 MEQ in DEXTROSE 10% 1,000 ML IV SCH (16:55)
[2018-12-17] MEDS: ERTAPENEM SODIUM 0.5 GM in SOD CHLORIDE 0.9% 100 ML IVPB SCH (18:51)
[2018-12-18] VITALS (38 sets, daily range): BP systolic 80–161; BP diastolic 58–82; PULSE 63–130; RESP 15–28
[2018-12-18] MEDS: LORAZEPAM 2 MG INJ IV PRN ×2 (00:01→20:43)
[2018-12-18] MEDS: METHYLPREDNISOLONE 40 MG INJ IV SCH ×4 (00:01→17:10)
[2018-12-18] MEDS: ACCU-CHEK XX SCH ×4 (01:53→13:00)
[2018-12-18] MEDS: morphine 2 MG INJ IV PRN (05:33)
[2018-12-18] MEDS: METOCLOPRAMIDE 10 MG INJ IV SCH ×3 (05:34→22:07)
[2018-12-18] MEDS: LEVOTHYROXINE 75 MCG TAB NGT SCH (05:34)
--- NOTE | 2018-12-18 08:01 | PN ---
DATE: 12/18/2018 SUBJECTIVE: The patient was transferred from intensive care unit to telemetry. Patient scheduled fo r hemodialysis today. No other events noted. OBJECTIVE: VITAL SIGNS: Blood pressure is 151/78, respirations 16, pulse 63, temperature 98.2. HEENT: Head is normocephalic. NECK: Supple. HEART: Regular rate. LUNGS: Show diminished breath sounds at the base. ABDOMEN: Soft, nontender to palpation without rebound or guarding. EXTREMITIES: Negative for clubbing, cyanosis. Positive edema. DERMATOLOGIC: No rashes. MUSCULOSKELETAL: No joint effusion. NEUROLOGIC: No change in exam. MEDICATIONS: Reviewed. LABORATORY DATA: Has been reviewed. IMAGING STUDIES: Have been reviewed. ASSESSMENT AND PLAN: 1. End-stage renal disease. Plan for hemodialysis today. We will dialyze 3 hours 3k bath, calcium 2.5. 2. Volume overload, anasarca. Continue ultrafiltration dialysis. 3. Sepsis, status post shock. The patient is completing antibiotic course. 4. Anemia. Monitor hemoglobin and hematocrit levels. Continue Epogen. 5. Mineral bone disorder, monitor calcium and phosphorus levels. 6. Ventilator-dependent respiratory failure. Vent settings and ABG was reviewed. 7. Encephalopathy, etiology toxic metabolic. Continue to monitor. 8. Hypothyroidism. Continue Synthroid. 9. Dysphagia. Continue tube feeding. 10. Arrhythmia. Continue amiodarone. 11. Thrombocytopenia. Continue to monitor. 12. Lower extremity wounds. Continue wound care. 13. Status post cardiopulmonary arrest. Dictated By: SARIKA CRAIG/EZIO Conf#: [id number] DID#: [id number] CC: MANDY BATES MD;*EndCC*
[2018-12-18] MEDS: ARTIFICIAL TEARS 15 ML OPH BOTH EYES SCH ×4 (09:00→20:43)
[2018-12-18] MEDS: COLLAGENASE 5 GM (UD JAR) TOP SCH (11:28)
[2018-12-18] MEDS: MIDODRINE 5 MG TAB GTB SCH ×3 (11:29→17:09)
[2018-12-18] MEDS: FAMOTIDINE 20 MG TAB NGT SCH (11:29)
[2018-12-18] MEDS: AMIODARONE 200 MG TAB NGT SCH ×2 (11:29→20:43)
[2018-12-18] MEDS: FOLIC ACID 1 MG TAB NGT SCH (11:30)
[2018-12-18] MEDS: BALSAM PERU/CASTOR OIL 60 GM TUBE TOP SCH ×2 (11:31→20:43)
--- NOTE | 2018-12-18 12:22 | CONS ---
Assessment/Plan Assessment/Plan Hospital Course (Demo Recall) Tx to tele, looks comfortable Antimicrobials: Cancidas, Invanz Microbiology: Blood culture on admission grew Klebsiella ESBL, repeat blood cultures negative, left thigh wound culture grew Klebsiella ESBL and Leah albicans Allergy: Zosyn, vancomycin Indwelling: Right upper thigh Davie catheter, left femoral triple-lumen catheter, trach Physical examination: This is a chronically ill-appearing cachectic middle-aged woman who is laying comfortably in bed. Head atraumatic normocephalic. Neck is supple. Chest rise symmetrical. Breath sounds diminished bases. Heart: S1-S2, irreg. Abdomen distended. Bowel sounds hypoactive. Extremities with bilateral edema, cyanotic, multiple ecchymotic areas and bruises, left upper thigh dressing present Assessment: 1. Sepsis 2. Acute hypoxemic respiratory failure secondary to CHF exacerbation/probable pneumonia 3. Klebsiella ESBL bacteremia likely 2 to #4 4. 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 End-stage renal disease, hemodialysis dependent 6. Atrial fibrillation/PPM 7. Unstageable sacral decubitus 8. History of peritoneal dialysis with peritoneal dialysis still in place 9. Ascites status post paracentesis 10. Failure to thrive 11. Thrombocytopenia 12. S/p B mastoiditis and acute sinusitis Plan: Remains unchanged, continue antibiotics indefinitely for infected graft, prognosis poor Consultation Date/Type/Reason Admit Date/Time Nov 21, 2018 at 04:53 Initial Consult Date Type of Consult id Requesting Provider: RIKA STOCK Date/Time of Note DATE: 12/18/18 TIME: 12:21 Exam/Review of Systems Exam Vitals Vital Signs Date Temp Pulse Resp B/P (MAP) Pulse Ox O2 O2 Flow FiO2 Time Delivery Rate 12/18/18 71 12:05 12/18/18 94.5 24 109/70 100 Trach 11:28 (83) Collar 12/18/18 30 11:00 Intake and Output 12/17/18 12/17/18 12/18/18 1515:00 23:00 07:00 IntakeIntake Total 320 ml 80 ml 180 ml BalanceBalance 320 ml 80 ml 180 ml Results Result Diagram: 12/18/18 0705 12/18/18 0705 Results 24hrs Laboratory Tests Test 12/17/18 15:24 12/17/18 19:07 12/17/18 22:37 12/18/18 01:42 Bedside Glucose 108 124 157 188 Test 12/18/18 05:41 12/18/18 07:05 12/18/18 11:38 Bedside Glucose 163 149 White Blood Count 12.9 #H Red Blood Count 3.36 L Hemoglobin 10.3 L Hematocrit 30.8 L Mean Corpuscular 91.7 Volume Mean Corpuscular 30.7 Hemoglobin Mean Corpuscular 33.4 Hemoglobin Concent Red Cell 18.2 H Distribution Width Platelet Count 25 #*L Mean Platelet Volume Immature 0.600 H Granulocytes % Neutrophils % Segmented 94 H Neutrophils % (Manual) Lymphocytes % Lymphocytes % 4 L (Manual) Monocytes % Monocytes % 2 (Manual) Eosinophils % Basophils % Nucleated Red 0.0 Blood Cells % Immature 0.080 H Granulocytes # Neutrophils # Lymphocytes 0.5 L (Manual) Lymphocytes # Monocytes # Monocytes # 0.2 L (Manual) Eosinophils # Basophils # Nucleated Red Blood Cells # Platelet Estimate SIG DECREASED Poikilocytosis 1+ Anisocytosis 1+ Macrocytosis 1+ Sodium Level 139 Potassium Level 4.8 Chloride Level 106 Carbon Dioxide 20 L Level Anion Gap 13 Blood Urea 90 H Nitrogen Creatinine 1.74 H Est Glomerular 30 L Filtrat Rate mL/min Glucose Level 164 Calcium Level 7.5 L Phosphorus Level 6.5 H Magnesium Level 2.0 Medications Medication Current Medications Ondansetron HCl (Zofran Inj) 4 mg Q6H PRN IV NAUSEA AND/OR VOMITING Last administered on 12/11/18at 06:53; Admin Dose 4 MG; Start 11/21/18 at 05:30 Albuterol/ Ipratropium (Duoneb) 3 ml Q2H RESP THERAPY PRN NEB SHORTNESS OF BREATH; Start 11/21/18 at 05:30 Caspofungin 50 mg/ Sodium Chloride 250 ml @ 250 mls/hr Q24H IVPB Last administered on 12/17/18at 13:44; Admin Dose 250 MLS/HR; Start 11/24/18 at 13:00 Miscellaneous Information 1 ea NOTE XX ; Start 11/23/18 at 13:30 Glucose (Glutose) 15 gm Q15M PRN PO DECREASED GLUCOSE; Start 11/23/18 at 13:30 Glucose (Glutose) 22.5 gm Q15M PRN PO DECREASED GLUCOSE; Start 11/23/18 at 13:30 Dextrose (D50w Syringe) 25 ml Q15M PRN IV DECREASED GLUCOSE Last administered on 12/09/18 13:59; Admin Dose 25 ML; Start 11/23/18 at 13:30 Dextrose (D50w Syringe) 50 ml Q15M PRN IV DECREASED GLUCOSE Last administered on 12/10/18 13:14; Admin Dose 50 ML; Start 11/23/18 at 13:30 Glucagon (Glucagen) 1 mg Q15M PRN IM DECREASED GLUCOSE; Start 11/23/18 at 13:30 Glucose (Glutose) 15 gm Q15M PRN BUCCAL DECREASED GLUCOSE; Start 11/23/18 at 13:30 Alteplase, Recombinant (Cathflo (Activase)) 2 mg MAY REPEAT X1 PRN CATHETER IF CATHETER REMAINS OCCULUDED Last administered on 12/02/18 15:47; Admin Dose 2 MG; Start 11/26/18 at 03:00 Albumin Human 100 ml @ 100 mls/hr DURING DIALYSIS PRN IV HYPOTENSION DURING HD Last administered on 12/16/18 08:52; Admin Dose 100 MLS/HR; Start 11/26/18 at 14:00 Levothyroxine Sodium (Synthroid) 75 mcg BEFORE BREAKFAST NGT Last administered on 12/18/18 05:34; Admin Dose 75 MCG; Start 11/29/18 at 07:00 Sodium Chloride 154 meq/Dextrose 1,038.5 ml @ 40 mls/hr Q24H IV Last administered on 12/17/18 16:55; Admin Dose 40 MLS/HR; Start 11/30/18 at 10:00 Collagenase (Santyl) 1 applic DAILY TOP Last administered on 12/18/18 11:28; Admin Dose 1 APPLIC; Start 12/01/18 at 16:30 Amiodarone HCl (Cordarone) 200 mg BID NGT Last administered on 12/18/18 11:29; Admin Dose 200 MG; Start 12/03/18 at 21:00 Acetaminophen (Tylenol Liquid) 650 mg Q6H PRN NGT PAIN LEVEL 1-3 OR FEVER; Start 12/06/18 at 09:00 Famotidine (Pepcid) 20 mg DAILY NGT Last administered on 12/18/18 11:29; Admin Dose 20 MG; Start 12/06/18 at 09:00 Folic Acid (Folic Acid) 1 mg DAILY NGT Last administered on 12/18/18 11:30; Admin Dose 1 MG; Start 12/06/18 at 09:00 Midodrine (Proamatine) 5 mg TID@09,13,17 GTB Last administered on 12/18/18 11:29; Admin Dose 5 MG; Start 12/07/18 at 09:00 Epoetin Margarito-epbx (RETACRIT(esrd)) 10,000 unit MoWeFr@1700 SC Last administered on 12/14/18 19:07; Admin Dose 10,000 UNIT; Start 12/11/18 at 17:00 Eye Lubricant (Artificial Tears Oph) 2 drop QID BOTH EYES Last administered on 12/18/18 09:00; Admin Dose 2 DROP; Start 12/10/18 at 09:00 Methylprednisolone Sodium Succinate (Solu-Medrol) 40 mg Q6 IV Last administered on 12/18/18 11:31; Admin Dose 40 MG; Start 12/10/18 at 18:00 Diagnostic Test (Pha) (Accu-Chek) 1 ea Q4H XX Last administered on 12/18/18 09:00; Admin Dose 1 EA; Start 12/11/18 at 13:00 Ertapenem 0.5 gm/ Sodium Chloride 100 ml @ 200 mls/hr Q24H IVPB Last administered on 12/17/18 18:51; Admin Dose 200 MLS/HR; Start 12/15/18 at 18:00 Lorazepam (Ativan) 1 mg Q4H PRN IV AGITATION/ANXIETY Last administered on 12/18/18 00:01; Admin Dose 1 MG; Start 12/15/18 at 11:00 Morphine Sulfate (morphine) 1 mg Q4H PRN IV SEVERE PAIN LEVEL 7-10 Last administered on 12/18/18 05:33; Admin Dose 1 MG; Start 12/15/18 at 11:00 Metoclopramide HCl (Reglan) 5 mg Q8 IV Last administered on 12/18/18 05:34; Admin Dose 5 MG; Start 12/17/18 at 12:00 KELSIE ELY NP December 18, 2018 12:22
--- NOTE | 2018-12-18 14:23 | PN ---
Date/Time of Note Date/Time of Note DATE: 12/18/18 TIME: 14:21 Assessment/Plan VTE Prophylaxis Risk score (from Ns)>0 risk: 6 [place] [facility] [place] Pharmacological prophylaxis: NA/contraindicated Pharm contraindication: blood coag disorder Lines/Catheters Urinary Cath still in place: No Assessment/Plan Hospital Course 58 yo female with ESRD, cirrhosis, DMII presents with hypoglycemia, leg infection. Suffered cardiac and respiratory arrest, now intubated Acute respiratory failure: - MV per pulm -Status post tracheostomy - s/p G tube -Ultrasound continues to show pleural effusions, defer need for thoracentesis to pulmonology Septic shock: Resolved - Antibiotics per ID, on ertapenem Hypoglycemia: No history of diabetes and patient not on any insulin or sulfonylurea or any other diabetic medication - Continue IV dextrose and tube feeds Left lower extremity wound - Antibiotics per ID -Venous study was negative for DVT A Fib: - Amiodarone ESRD with fluid overload - HD per nephrology Hypothyroidism: Continue Synthroid History of pacemaker: No acute issue Prophylaxis: SCDs DC planning: Placement in subacute Result Diagram: 12/18/18 0712/18/18 07 Results 24hrs Laboratory Tests Test 12/17/18 15:24 12/17/18 19:07 12/17/18 22:37 12/18/18 01:42 Bedside Glucose 108 124 157 188 Test 12/18/18 05:41 12/18/18 07:05 12/18/18 11:38 Bedside Glucose 163 149 White Blood Count 12.9 #H Red Blood Count 3.36 L Hemoglobin 10.3 L Hematocrit 30.8 L Mean Corpuscular 91.7 Volume Mean Corpuscular 30.7 Hemoglobin Mean Corpuscular 33.4 Hemoglobin Concent Red Cell 18.2 H Distribution Width Platelet Count 25 #*L Mean Platelet Volume Immature 0.600 H Granulocytes % Neutrophils % Segmented 94 H Neutrophils % (Manual) Lymphocytes % Lymphocytes % 4 L (Manual) Monocytes % Monocytes % 2 (Manual) Eosinophils % Basophils % Nucleated Red 0.0 Blood Cells % Immature 0.080 H Granulocytes # Neutrophils # Lymphocytes 0.5 L (Manual) Lymphocytes # Monocytes # Monocytes # 0.2 L (Manual) Eosinophils # Basophils # Nucleated Red Blood Cells # Platelet Estimate SIG DECREASED Poikilocytosis 1+ Anisocytosis 1+ Macrocytosis 1+ Sodium Level 139 Potassium Level 4.8 Chloride Level 106 Carbon Dioxide 20 L Level Anion Gap 13 Blood Urea 90 H Nitrogen Creatinine 1.74 H Est Glomerular 30 L Filtrat Rate mL/min Glucose Level 164 Calcium Level 7.5 L Phosphorus Level 6.5 H Magnesium Level 2.0 Subjective 24 Hr Interval Summary Subjective hx not possible: pt non-verbal Exam/Review of Systems Exam Vitals Vital Signs Date Temp Pulse Resp B/P (MAP) Pulse Ox O2 O2 Flow FiO2 Time Delivery Rate 12/18/18 130 13:55 12/18/18 20 117/80 100 Mechanical 13:10 (92) Ventilator 12/18/18 94.5 11:28 12/18/18 30 11:00 Intake and Output 12/17/18 12/17/18 12/18/18 1515:00 23:00 07:00 IntakeIntake Total 320 ml 80 ml 180 ml BalanceBalance 320 ml 80 ml 180 ml Constitutional: non-verbal Respiratory: clear to auscultation Cardiovascular: regular rate and rhythm Gastrointestinal: soft; No distended Musculoskeletal: nl extremities to inspection Results Results 24hrs Laboratory Tests Test 12/17/18 15:24 12/17/18 19:07 12/17/18 22:37 12/18/18 01:42 Bedside Glucose 108 124 157 188 Test 12/18/18 05:41 12/18/18 07:05 12/18/18 11:38 Bedside Glucose 163 149 White Blood Count 12.9 #H Red Blood Count 3.36 L Hemoglobin 10.3 L Hematocrit 30.8 L Mean Corpuscular 91.7 Volume Mean Corpuscular 30.7 Hemoglobin Mean Corpuscular 33.4 Hemoglobin Concent Red Cell 18.2 H Distribution Width Platelet Count 25 #*L Mean Platelet Volume Immature 0.600 H Granulocytes % Neutrophils % Segmented 94 H Neutrophils % (Manual) Lymphocytes % Lymphocytes % 4 L (Manual) Monocytes % Monocytes % 2 (Manual) Eosinophils % Basophils % Nucleated Red 0.0 Blood Cells % Immature 0.080 H Granulocytes # Neutrophils # Lymphocytes 0.5 L (Manual) Lymphocytes # Monocytes # Monocytes # 0.2 L (Manual) Eosinophils # Basophils # Nucleated Red Blood Cells # Platelet Estimate SIG DECREASED Poikilocytosis 1+ Anisocytosis 1+ Macrocytosis 1+ Sodium Level 139 Potassium Level 4.8 Chloride Level 106 Carbon Dioxide 20 L Level Anion Gap 13 Blood Urea 90 H Nitrogen Creatinine 1.74 H Est Glomerular 30 L Filtrat Rate mL/min Glucose Level 164 Calcium Level 7.5 L Phosphorus Level 6.5 H Magnesium Level 2.0 Medications Medication Current Medications Ondansetron HCl (Zofran Inj) 4 mg Q6H PRN IV NAUSEA AND/OR VOMITING Last administered on 12/11/18 06:53; Admin Dose 4 MG; Start 11/21/18 at 05:30 Albuterol/ Ipratropium (Duoneb) 3 ml Q2H RESP THERAPY PRN NEB SHORTNESS OF BREATH; Start 11/21/18 at 05:30 Caspofungin 50 mg/ Sodium Chloride 250 ml @ 250 mls/hr Q24H IVPB Last administered on 12/17/18 13:44; Admin Dose 250 MLS/HR; Start 11/24/18 at 13:00 Miscellaneous Information 1 ea NOTE XX ; Start 11/23/18 at 13:30 Glucose (Glutose) 15 gm Q15M PRN PO DECREASED GLUCOSE; Start 11/23/18 at 13:30 Glucose (Glutose) 22.5 gm Q15M PRN PO DECREASED GLUCOSE; Start 11/23/18 at 13:30 Dextrose (D50w Syringe) 25 ml Q15M PRN IV DECREASED GLUCOSE Last administered on 12/09/18 13:59; Admin Dose 25 ML; Start 11/23/18 at 13:30 Dextrose (D50w Syringe) 50 ml Q15M PRN IV DECREASED GLUCOSE Last administered on 12/10/18at 13:14; Admin Dose 50 ML; Start 11/23/18 at 13:30 Glucagon (Glucagen) 1 mg Q15M PRN IM DECREASED GLUCOSE; Start 11/23/18 at 13:30 Glucose (Glutose) 15 gm Q15M PRN BUCCAL DECREASED GLUCOSE; Start 11/23/18 at 13:30 Alteplase, Recombinant (Cathflo (Activase)) 2 mg MAY REPEAT X1 PRN CATHETER IF CATHETER REMAINS OCCULUDED Last administered on 12/02/18at 15:47; Admin Dose 2 MG; Start 11/26/18 at 03:00 Albumin Human 100 ml @ 100 mls/hr DURING DIALYSIS PRN IV HYPOTENSION DURING HD Last administered on 12/16/18 08:52; Admin Dose 100 MLS/HR; Start 11/26/18 at 14:00 Levothyroxine Sodium (Synthroid) 75 mcg BEFORE BREAKFAST NGT Last administered on 12/18/18 05:34; Admin Dose 75 MCG; Start 11/29/18 at 07:00 Sodium Chloride 154 meq/Dextrose 1,038.5 ml @ 40 mls/hr Q24H IV Last administered on 12/17/18 16:55; Admin Dose 40 MLS/HR; Start 11/30/18 at 10:00 Collagenase (Santyl) 1 applic DAILY TOP Last administered on 12/18/18 11:28; Admin Dose 1 APPLIC; Start 12/01/18 at 16:30 Amiodarone HCl (Cordarone) 200 mg BID NGT Last administered on 12/18/18 11:29; Admin Dose 200 MG; Start 12/03/18 at 21:00 Acetaminophen (Tylenol Liquid) 650 mg Q6H PRN NGT PAIN LEVEL 1-3 OR FEVER; Start 12/06/18 at 09:00 Famotidine (Pepcid) 20 mg DAILY NGT Last administered on 12/18/18 11:29; Admin Dose 20 MG; Start 12/06/18 at 09:00 Folic Acid (Folic Acid) 1 mg DAILY NGT Last administered on 12/18/18 11:30; Admin Dose 1 MG; Start 12/06/18 at 09:00 Midodrine (Proamatine) 5 mg TID@,13,17 GTB Last administered on 12/18/18 11:29; Admin Dose 5 MG; Start 12/07/18 at 09:00 Epoetin Margarito-epbx (RETACRIT(esrd)) 10,000 unit MoWeFr@1700 SC Last administered on 12/14/18 19:07; Admin Dose 10,000 UNIT; Start 12/11/18 at 17:00 Eye Lubricant (Artificial Tears Oph) 2 drop QID BOTH EYES Last administered on 12/18/18 09:00; Admin Dose 2 DROP; Start 12/10/18 at 09:00 Methylprednisolone Sodium Succinate (Solu-Medrol) 40 mg Q6 IV Last administered on 12/18/18 11:31; Admin Dose 40 MG; Start 12/10/18 at 18:00 Diagnostic Test (Pha) (Accu-Chek) 1 ea Q4H XX Last administered on 12/18/18 09:00; Admin Dose 1 EA; Start 12/11/18 at 13:00 Ertapenem 0.5 gm/ Sodium Chloride 100 ml @ 200 mls/hr Q24H IVPB Last administered on 12/17/18 18:51; Admin Dose 200 MLS/HR; Start 12/15/18 at 18:00 Lorazepam (Ativan) 1 mg Q4H PRN IV AGITATION/ANXIETY Last administered on 12/18/18 00:01; Admin Dose 1 MG; Start 12/15/18 at 11:00 Morphine Sulfate (morphine) 1 mg Q4H PRN IV SEVERE PAIN LEVEL 7-10 Last administered on 12/18/18 05:33; Admin Dose 1 MG; Start 12/15/18 at 11:00 Metoclopramide HCl (Reglan) 5 mg Q8 IV Last administered on 12/18/18 05:34; Admin Dose 5 MG; Start 12/17/18 at 12:00 RIKA STOCK December 18, 2018 14:23
[2018-12-18] MEDS: CASPOFUNGIN 50 MG in SOD CHLORIDE 0.9% 250 ML IVPB SCH (14:24)
--- NOTE | 2018-12-18 14:49 | PN ---
DATE: 12/18/2018 SUBJECTIVE: Chart was reviewed. No significant events noted. The patient remains on ventilator, sa turating 100%. PHYSICAL EXAMINATION: VITAL SIGNS: Blood pressure 117/80, pulse 108, respirations 20, temperature afebrile. HEENT: Pupils are equal and react to light. NECK: Supple. Tracheostomy in place. LUNGS: Fair breath sounds bilaterally. CARDIOVASCULAR: S1, S2 normal. ABDOMEN: Soft, nontender, no megaly or masses noted. EXTREMITIES: No clubbing or cyanosis noted. NEUROLOGIC: Generalized weakness. LABORATORY DATA: WBC 12.9, hemoglobin 10.3, hematocrit 30.8, platelets 25. Sodium 139, potassium 4. 8, chloride 106, CO2 of 20, BUN 19, creatinine 1.74, glucose 164. DIAGNOSTIC DATA: Chest x-ray shows small right pleural effusion and moderate-sized left pleural effu janae. IMPRESSION: 1. Ventilator-dependent respiratory failure, status post tracheostomy. 2. Gram-negative sepsis. 3. End-stage renal disease on hemodialysis. 4. Cardiomyopathy. 5. Thrombocytopenia. 6. Anemia. 7. Status post septic shock. RECOMMENDATIONS: 1. Continue vent support. 2. Continue antibiotics as per ID. 3. Hemodialysis per nephrology. 4. Consult as noted. Dictated By: JULIETTE STARKEY MD, MA/EZIO Conf#: [id number] DID#: [id number] CC: RIKA STOCK MD; LORRAINE JOHNSON MD; MANDY BATES MD;*EndCC*
[2018-12-18] MEDS: SODIUM CHLORIDE 23.4% 154 MEQ in DEXTROSE 10% 1,000 ML IV SCH ×2 (14:57→22:11)
[2018-12-18] MEDS: ERTAPENEM SODIUM 0.5 GM in SOD CHLORIDE 0.9% 100 ML IVPB SCH (17:08)
[2018-12-18] MEDS: EPOETIN ALFA-EPBX (ESRD) 10,000 UNIT/ML VIAL SC SCH (17:11)
--- NOTE | 2018-12-18 18:35 | PN ---
Date/Time of Note Date/Time of Note DATE: 12/18/18 TIME: 18:35 Assessment/Plan Lines/Catheters Moon in Place (from Nrsg): No Assessment/Plan Assessment/Plan Status post tracheostomy We will continue vent support [facility] Pulmonary toilet Subjective 24 Hr Interval Summary Constitutional: improved Pain Control: mild Exam/Review of Systems Vital Signs Vitals Vital Signs Date Temp Pulse Resp B/P (MAP) Pulse Ox O2 O2 Flow FiO2 Time Delivery Rate 12/18/18 76 19 100 30 17:30 12/18/18 95.6 156/82 Trach 15:39 (106) Collar Intake and Output 12/17/18 12/17/18 12/18/18 1515:00 23:00 07:00 IntakeIntake Total 320 ml 80 ml 180 ml BalanceBalance 320 ml 80 ml 180 ml Exam Eyes: nl conjunctiva, EOMI, nl lids, nl sclera ENMT: nl external ears & nose, nl lips & teeth, nl nasal mucosa & septum, mucosa pink and moist Neck: supple, non-tender Respiratory: clear to auscultation, normal air movement Cardiovascular: regular rate and rhythm, nl pulses Gastrointestinal: soft, nl liver, spleen, non-tender Musculoskeletal: nl extremities to inspection, nl gait and stance Results Result Diagram: 12/18/18 0705 12/18/18704 TAE PAN MD December 18, 2018 18:35
[2018-12-19] VITALS (25 sets, daily range): BP systolic 148–192; BP diastolic 67–92; PULSE 60–83; RESP 12–66
[2018-12-19] MEDS: METHYLPREDNISOLONE 40 MG INJ IV SCH ×4 (00:41→17:20)
[2018-12-19] MEDS: morphine 2 MG INJ IV PRN (03:37)
[2018-12-19] MEDS: LORAZEPAM 2 MG INJ IV PRN (05:41)
[2018-12-19] MEDS: METOCLOPRAMIDE 10 MG INJ IV SCH ×3 (05:41→22:32)
[2018-12-19] MEDS: LEVOTHYROXINE 75 MCG TAB NGT SCH (05:41)
[2018-12-19] MEDS: COLLAGENASE 5 GM (UD JAR) TOP SCH (08:41)
[2018-12-19] MEDS: FAMOTIDINE 20 MG TAB NGT SCH (08:41)
[2018-12-19] MEDS: AMIODARONE 200 MG TAB NGT SCH ×2 (08:41→20:44)
[2018-12-19] MEDS: FOLIC ACID 1 MG TAB NGT SCH (08:42)
[2018-12-19] MEDS: BALSAM PERU/CASTOR OIL 60 GM TUBE TOP SCH ×2 (08:43→20:45)
[2018-12-19] MEDS: ARTIFICIAL TEARS 15 ML OPH BOTH EYES SCH ×4 (08:43→20:45)
[2018-12-19] MEDS: MIDODRINE 5 MG TAB GTB SCH ×3 (09:00→17:00)
--- NOTE | 2018-12-19 12:01 | CONS ---
Assessment/Plan Assessment/Plan Hospital Course (Demo Recall) 1. End-stage renal disease. Plan for hemodialysis tomorrow. We will dialyze 3 hours 3k bath, calcium 2.5. 2. Volume overload, anasarca. Continue ultrafiltration dialysis. 3. Sepsis, status post shock. The patient is completing antibiotic course. 4. Anemia. Monitor hemoglobin and hematocrit levels. Continue Epogen. 5. Mineral bone disorder, monitor calcium and phosphorus levels. 6. Ventilator-dependent respiratory failure. Vent settings and ABG was reviewed. 7. Encephalopathy, etiology toxic metabolic. Continue to monitor. 8. Hypothyroidism. Continue Synthroid. 9. Dysphagia. Continue tube feeding. 10. Arrhythmia. Continue amiodarone. 11. Thrombocytopenia. Continue to monitor. 12. Lower extremity wounds. Continue wound care. 13. Status post cardiopulmonary arrest. Consultation Date/Type/Reason Admit Date/Time Nov 21, 2018 at 04:53 Initial Consult Date Requesting Provider: RIKA STOCK Date/Time of Note DATE: 12/19/18 TIME: 12:01 24 HR Interval Summary Free Text/Dictation s/p HD yesterday gen nad cv rrr pulm coarse bs abd soft, nd, nt +bs ext: no edema Exam/Review of Systems Exam Vitals Vital Signs Date Temp Pulse Resp B/P (MAP) Pulse Ox O2 O2 Flow FiO2 Time Delivery Rate 12/19/18 64 21 100 30 11:00 12/19/18 97.4 167/82 08:09 (110) 12/19/18 Mechanical 01:00 Ventilator Intake and Output 12/18/18 12/18/18 12/19/18 1414:59 22:59 06:59 IntakeIntake Total 220 ml OutputOutput Total 900 ml BalanceBalance -900 ml 220 ml Results Result Diagram: 12/18/18 0705 12/18/18 0705 Medications Medication Current Medications Ondansetron HCl (Zofran Inj) 4 mg Q6H PRN IV NAUSEA AND/OR VOMITING Last administered on 12/11/18at 06:53; Admin Dose 4 MG; Start 11/21/18 at 05:30 Albuterol/ Ipratropium (Duoneb) 3 ml Q2H RESP THERAPY PRN NEB SHORTNESS OF BREATH; Start 11/21/18 at 05:30 Caspofungin 50 mg/ Sodium Chloride 250 ml @ 250 mls/hr Q24H IVPB Last administered on 12/18/18 14:24; Admin Dose 250 MLS/HR; Start 11/24/18 at 13:00 Miscellaneous Information 1 ea NOTE XX ; Start 11/23/18 at 13:30 Glucose (Glutose) 15 gm Q15M PRN PO DECREASED GLUCOSE; Start 11/23/18 at 13:30 Glucose (Glutose) 22.5 gm Q15M PRN PO DECREASED GLUCOSE; Start 11/23/18 at 13:30 Dextrose (D50w Syringe) 25 ml Q15M PRN IV DECREASED GLUCOSE Last administered on 12/09/18 13:59; Admin Dose 25 ML; Start 11/23/18 at 13:30 Dextrose (D50w Syringe) 50 ml Q15M PRN IV DECREASED GLUCOSE Last administered on 12/10/18 13:14; Admin Dose 50 ML; Start 11/23/18 at 13:30 Glucagon (Glucagen) 1 mg Q15M PRN IM DECREASED GLUCOSE; Start 11/23/18 at 13:30 Glucose (Glutose) 15 gm Q15M PRN BUCCAL DECREASED GLUCOSE; Start 11/23/18 at 13:30 Alteplase, Recombinant (Cathflo (Activase)) 2 mg MAY REPEAT X1 PRN CATHETER IF CATHETER REMAINS OCCULUDED Last administered on 12/02/18 15:47; Admin Dose 2 MG; Start 11/26/18 at 03:00 Albumin Human 100 ml @ 100 mls/hr DURING DIALYSIS PRN IV HYPOTENSION DURING HD Last administered on 12/16/18 08:52; Admin Dose 100 MLS/HR; Start 11/26/18 at 14:00 Levothyroxine Sodium (Synthroid) 75 mcg BEFORE BREAKFAST NGT Last administered on 12/19/18 05:41; Admin Dose 75 MCG; Start 11/29/18 at 07:00 Sodium Chloride 154 meq/Dextrose 1,038.5 ml @ 40 mls/hr Q24H IV Last administered on 12/18/18 22:11; Admin Dose 40 MLS/HR; Start 11/30/18 at 10:00 Collagenase (Santyl) 1 applic DAILY TOP Last administered on 12/19/18 08:41; Admin Dose 1 APPLIC; Start 12/01/18 at 16:30 Amiodarone HCl (Cordarone) 200 mg BID NGT Last administered on 12/19/18 08:41; Admin Dose 200 MG; Start 12/03/18 at 21:00 Acetaminophen (Tylenol Liquid) 650 mg Q6H PRN NGT PAIN LEVEL 1-3 OR FEVER; Start 12/06/18 at 09:00 Famotidine (Pepcid) 20 mg DAILY NGT Last administered on 12/19/18 08:41; Admin Dose 20 MG; Start 12/06/18 at 09:00 Folic Acid (Folic Acid) 1 mg DAILY NGT Last administered on 12/19/18 08:42; Admin Dose 1 MG; Start 12/06/18 at 09:00 Midodrine (Proamatine) 5 mg TID@,13,17 GTB Last administered on 12/18/18 17:09; Admin Dose 5 MG; Start 12/07/18 at 09:00 Epoetin Margarito-epbx (RETACRIT(esrd)) 10,000 unit MoWeFr@1700 SC Last administered on 12/18/18 17:11; Admin Dose 10,000 UNIT; Start 12/11/18 at 17:00 Eye Lubricant (Artificial Tears Oph) 2 drop QID BOTH EYES Last administered on 12/19/18 08:43; Admin Dose 2 DROP; Start 12/10/18 at 09:00 Methylprednisolone Sodium Succinate (Solu-Medrol) 40 mg Q6 IV Last administered on 12/19/18 11:55; Admin Dose 40 MG; Start 12/10/18 at 18:00 Ertapenem 0.5 gm/ Sodium Chloride 100 ml @ 200 mls/hr Q24H IVPB Last administered on 12/18/18 17:08; Admin Dose 200 MLS/HR; Start 12/15/18 at 18:00 Lorazepam (Ativan) 1 mg Q4H PRN IV AGITATION/ANXIETY Last administered on 12/19/18 05:41; Admin Dose 1 MG; Start 12/15/18 at 11:00 Morphine Sulfate (morphine) 1 mg Q4H PRN IV SEVERE PAIN LEVEL 7-10 Last administered on 12/19/18 03:37; Admin Dose 1 MG; Start 12/15/18 at 11:00 Metoclopramide HCl (Reglan) 5 mg Q8 IV Last administered on 12/19/18at 05:41; Admin Dose 5 MG; Start 12/17/18 at 12:00 NAZARIO HAN MD December 19, 2018 12:01
[2018-12-19] MEDS: CASPOFUNGIN 50 MG in SOD CHLORIDE 0.9% 250 ML IVPB SCH (13:20)
[2018-12-19] MEDS: SODIUM CHLORIDE 23.4% 154 MEQ in DEXTROSE 10% 1,000 ML IV SCH (13:20)
--- NOTE | 2018-12-19 13:59 | CONS ---
Assessment/Plan Assessment/Plan Hospital Course (Demo Recall) ID PROGRESS NOTE CURRENT ABX: DAY # =>ERTAPENEM + CANCIDAS 12/18/1870412/18/18 07 24H INTERVAL SUMMARY * Cachexia chronic debility -- remains Lethargic, awakens, extremely frail w/generalized weakness * INVASIVES: Right upper thigh Davie catheter, left femoral triple-lumen catheter, trach * Microbiology: Blood culture on admission grew Klebsiella ESBL, repeat blood cultures negative, left thigh wound culture grew Klebsiella ESBL and Chary da albicans DIAGNOSTIC IMAGING * 12/18/18 CHEST US: Small right pleural effusion and moderate left pleural effusion. MICRO/OTHER * 11/25/18 RESP CX (+) GERARDO ALBICANS * 11/23/2018 BCX (-) * 11/21/18 WOUND CULTURE Final Organism 1 K PNEUMO ESBL QUANTITY SCANT GROWTH . MULTI DRUG RESISTANT ORGANISM Organism 2 GERARDO ALBICANS QUANTITY SCANT GROWTH KLEB PNEUM KLEB PNEUM M.I.C. RX M.I.C. RX --------- --- --------- --- AMIKACIN 16 S CEFAZOLIN R CEFEPIME 2 S CEFOTAXIME R CIPROFLOXACIN 2 I GENTAMICIN >=16 R LEVOFLOXACIN 1 S MEROPENEM 0.094 S TOBRAMYCIN >=16 R TRIMETHOPRIM/SULFAMETHOXAZOLE >=320 R PIPERACILLIN/TAZOBACTAM 16 S * 11/21/2018 BCX == BLOOD CULTURE GRAM NEGATIVE MERARY * BLOOD CULTURE Final KLEB PNEUM KLEB PNEUM M.I.C. RX M.I.C. RX --------- --- --------- --- AMIKACIN 16 S CEFAZOLIN R CEFOTAXIME R CIPROFLOXACIN 2 I GENTAMICIN >=16 R LEVOFLOXACIN 1 S MEROPENEM 0.064 S TOBRAMYCIN >=16 R TRIMETHOPRIM/SULFAMETHOXAZOLE >=320 R PIPERACILLIN/TAZOBACTAM 16 S PHYSICAL EXAMINATION: GENERAL: Frail, cachectic, F w/hypoxic resp failure --- A/A/O HEENT: AT, NC, anicteric NECK: Supple (+)trach == sternocleidomastoid retractions CHEST: Equal chest rise bilaterally==> Vented HEART: RRR ABDOMEN: Mild distended EXTREMITIES: Warm, dry, mild edema x4 extremities, skin tears BLExt, * multiple ecchymotic areas and bruises, left upper thigh dressing present SKIN: No rash, no diaphoresis, STG 3 sacral decubs ID ASSESSMENT 58 yo F admit with: 1. GNR SEPSIS w/hypotension -- septic shock vs hypovolemic vs combination, w/cold shock, leukopenia = RESOLVED * 11/21/18 BCX (+) Organism 1 GRAM NEGATIVE MERARY = KP-ESBL * Septic left lower extremity open wound w/hx of infected leg graft * Presumptive spontaneous bacterial peritonitis = DDX due to hx of ascites, presence of PD catheter, s/p Paracentesis prior admit to [facility] 2. Acute encephalopathy on admission: Secondary to severe hypoglycemia * Head CT negative for acute findings 3. Hypercapnic respiratory failure => Supplemental O2 + BiPAP PRN * Pulmonary edema, possible HCAP * 11/21/18 CXR: IMPRESSION:1. Changes are again seen suggesting pulmonary congestion/edema with small to moderate effusions and atelectasis or other consolidation. 4. Left lower extremity wound and pitting edema= PAD s/p bypass graft SEP 2018 * 11/21/18 WOUND CULTURE Final Organism 1 K PNEUMO ESBL QUANTITY SCANT GROWTH . MULTI DRUG RESISTANT ORGANISM Organism 2 GERARDO ALBICANS * s/p recent admission for 2 weeks at [facility], where she had procedure. * Venous study was negative for DVT here [facility] on admission 5. ESRD: Nephrology consulted == HD 6. Hx of chronic peritoneal dialysis w/indwelling PD catheter that is currently not being removed because of the severe thrombocytopenia. * PLAN PER NOTES: This can be addressed at [facility] where she usually gets her care 7. Ascites: Status post paracentesis about 5 weeks ago with removal of 4.5 L * At risk SBP due to ascites and indwelling PD catheter 8. Hypertension: 9. Pacemaker post implant status 10. Pancytopenia: Patient had workup here during recent hospitalization. 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 Hypothyroidism-> Synthroid on board 12. Failure to thrive: Patient with weight loss protein sharron malnutrition 13. STG 3 SACRAL DECUB = POA 14. S/P B mastoiditis and acute sinusitis per CT=> TREATED W/ABX (-)MRSA Nares ABX ALLERGIES: PCN/Vanco IV INVASIVES: Right upper thigh Davie catheter, left femoral triple-lumen catheter, endotracheal tube, orogastric tube, midline CURRENT ABX: DAY # ERTAPENEM + CANCIDAS ID RECOMMENDATIONS/PLAN: 1. Remains on current ABX for suspicion of infected lower extremity bypass graft . Consultation Date/Type/Reason Admit Date/Time Nov 21, 2018 at 04:53 Initial Consult Date Requesting Provider: RIKA STOCK Date/Time of Note DATE: 12/19/18 TIME: 13:45 Exam/Review of Systems Exam Vitals Vital Signs Date Temp Pulse Resp B/P (MAP) Pulse Ox O2 O2 Flow FiO2 Time Delivery Rate 12/19/18 74 13:40 12/19/18 97.9 16 167/67 100 12:08 (100) 12/19/18 30 11:00 12/19/18 Mechanical 01:00 Ventilator Intake and Output 12/18/18 12/18/18 12/19/18 1515:00 23:00 07:00 IntakeIntake Total 220 ml OutputOutput Total 900 ml BalanceBalance -900 ml 220 ml Results Result Diagram: 12/18/18 0705 12/18/18 0705 Medications Medication Current Medications Ondansetron HCl (Zofran Inj) 4 mg Q6H PRN IV NAUSEA AND/OR VOMITING Last administered on 12/11/18at 06:53; Admin Dose 4 MG; Start 11/21/18 at 05:30 Albuterol/ Ipratropium (Duoneb) 3 ml Q2H RESP THERAPY PRN NEB SHORTNESS OF BREATH; Start 11/21/18 at 05:30 Caspofungin 50 mg/ Sodium Chloride 250 ml @ 250 mls/hr Q24H IVPB Last administered on 12/19/18at 13:20; Admin Dose 250 MLS/HR; Start 11/24/18 at 13:00 Miscellaneous Information 1 ea NOTE XX ; Start 11/23/18 at 13:30 Glucose (Glutose) 15 gm Q15M PRN PO DECREASED GLUCOSE; Start 11/23/18 at 13:30 Glucose (Glutose) 22.5 gm Q15M PRN PO DECREASED GLUCOSE; Start 11/23/18 at 13:30 Dextrose (D50w Syringe) 25 ml Q15M PRN IV DECREASED GLUCOSE Last administered on 12/09/18 13:59; Admin Dose 25 ML; Start 11/23/18 at 13:30 Dextrose (D50w Syringe) 50 ml Q15M PRN IV DECREASED GLUCOSE Last administered on 12/10/18 13:14; Admin Dose 50 ML; Start 11/23/18 at 13:30 Glucagon (Glucagen) 1 mg Q15M PRN IM DECREASED GLUCOSE; Start 11/23/18 at 13:30 Glucose (Glutose) 15 gm Q15M PRN BUCCAL DECREASED GLUCOSE; Start 11/23/18 at 13:30 Alteplase, Recombinant (Cathflo (Activase)) 2 mg MAY REPEAT X1 PRN CATHETER IF CATHETER REMAINS OCCULUDED Last administered on 12/02/18 15:47; Admin Dose 2 MG; Start 11/26/18 at 03:00 Albumin Human 100 ml @ 100 mls/hr DURING DIALYSIS PRN IV HYPOTENSION DURING HD Last administered on 12/16/18 08:52; Admin Dose 100 MLS/HR; Start 11/26/18 at 14:00 Levothyroxine Sodium (Synthroid) 75 mcg BEFORE BREAKFAST NGT Last administered on 12/19/18 05:41; Admin Dose 75 MCG; Start 11/29/18 at 07:00 Sodium Chloride 154 meq/Dextrose 1,038.5 ml @ 40 mls/hr Q24H IV Last administered on 12/18/18 22:11; Admin Dose 40 MLS/HR; Start 11/30/18 at 10:00 Collagenase (Santyl) 1 applic DAILY TOP Last administered on 12/19/18 08:41; Admin Dose 1 APPLIC; Start 12/01/18 at 16:30 Amiodarone HCl (Cordarone) 200 mg BID NGT Last administered on 12/19/18 08:41; Admin Dose 200 MG; Start 12/03/18 at 21:00 Acetaminophen (Tylenol Liquid) 650 mg Q6H PRN NGT PAIN LEVEL 1-3 OR FEVER; Start 12/06/18 at 09:00 Famotidine (Pepcid) 20 mg DAILY NGT Last administered on 12/19/18 08:41; Admin Dose 20 MG; Start 12/06/18 at 09:00 Folic Acid (Folic Acid) 1 mg DAILY NGT Last administered on 12/19/18 08:42; Admin Dose 1 MG; Start 12/06/18 at 09:00 Midodrine (Proamatine) 5 mg TID@,13,17 GTB Last administered on 12/18/18 17:09; Admin Dose 5 MG; Start 12/07/18 at 09:00 Epoetin Margarito-epbx (RETACRIT(esrd)) 10,000 unit MoWeFr@1700 SC Last administered on 12/18/18 17:11; Admin Dose 10,000 UNIT; Start 12/11/18 at 17:00 Eye Lubricant (Artificial Tears Oph) 2 drop QID BOTH EYES Last administered on 12/19/18 13:20; Admin Dose 2 DROP; Start 12/10/18 at 09:00 Methylprednisolone Sodium Succinate (Solu-Medrol) 40 mg Q6 IV Last administered on 12/19/18 11:55; Admin Dose 40 MG; Start 12/10/18 at 18:00 Ertapenem 0.5 gm/ Sodium Chloride 100 ml @ 200 mls/hr Q24H IVPB Last administered on 12/18/18 17:08; Admin Dose 200 MLS/HR; Start 12/15/18 at 18:00 Lorazepam (Ativan) 1 mg Q4H PRN IV AGITATION/ANXIETY Last administered on 12/19/18 05:41; Admin Dose 1 MG; Start 12/15/18 at 11:00 Morphine Sulfate (morphine) 1 mg Q4H PRN IV SEVERE PAIN LEVEL 7-10 Last administered on 12/19/18 03:37; Admin Dose 1 MG; Start 12/15/18 at 11:00 Metoclopramide HCl (Reglan) 5 mg Q8 IV Last administered on 12/19/18 13:20; Admin Dose 5 MG; Start 12/17/18 at 12:00 MARCO LOZADA NP December 19, 2018 13:59
[2018-12-19] MEDS: ERTAPENEM SODIUM 0.5 GM in SOD CHLORIDE 0.9% 100 ML IVPB SCH (17:20)
--- NOTE | 2018-12-19 18:14 | PN ---
Date/Time of Note Date/Time of Note DATE: 12/19/18 TIME: 18:09 Assessment/Plan VTE Prophylaxis Risk score (from Nsg)>0 risk: 10 Pharmacological prophylaxis: NA/contraindicated Pharm contraindication: blood coag disorder Lines/Catheters IV Catheter Type (from Nrsg): Mid Line Urinary Cath still in place: No Assessment/Plan Hospital Course 58 yo female with ESRD, cirrhosis, DMII presents with hypoglycemia, leg infection. Suffered cardiac and respiratory arrest, now intubated Acute respiratory failure: - MV per pulm -Status post tracheostomy - s/p G tube -Ultrasound continues to show pleural effusions, defer need for thoracentesis to pulmonology Septic shock: Resolved - Antibiotics per ID, on ertapenem Hypoglycemia: No history of diabetes and patient not on any insulin or sul fonylurea or any other diabetic medication - Continue IV dextrose and tube feeds Left lower extremity wound - Antibiotics per ID -Venous study was negative for DVT A Fib: - Amiodarone ESRD with fluid overload - HD per nephrology Early cirrhosis -Hepatitis panel is negative -Patient with no history of obesity or alcohol abuse -Follow-up on [facility] -Outpatient monitoring Hypothyroidism: Continue Synthroid History of pacemaker: No acute issue History of spontaneous abortions -Based on history of multiple miscarriages and having been placed on anticoagulants for blood clot prevention patient likely has a history of antiphospholipid syndrome Prophylaxis: SCDs DC planning: Placement in subacute is pending Result Diagram: 12/18/1870412/18/18704 Subjective 24 Hr Interval Summary Subjective hx not possible: pt non-verbal Exam/Review of Systems Exam Vitals Vital Signs Date Temp Pulse Resp B/P (MAP) Pulse Ox O2 O2 Flow FiO2 Time Delivery Rate 12/19/18 67 18 99 30 17:23 12/19/18 97.4 169/86 15:40 (113) 12/19/18 Mechanical 01:00 Ventilator Intake and Output 12/18/18 12/18/18 12/19/18 1515:00 23:00 07:00 IntakeIntake Total 220 ml OutputOutput Total 900 ml BalanceBalance -900 ml 220 ml Constitutional: non-verbal Respiratory: clear to auscultation Cardiovascular: regular rate and rhythm Gastrointestinal: soft; No distended Musculoskeletal: nl extremities to inspection Medications Medication Current Medications Ondansetron HCl (Zofran Inj) 4 mg Q6H PRN IV NAUSEA AND/OR VOMITING Last administered on 12/11/18 06:53; Admin Dose 4 MG; Start 11/21/18 at 05:30 Albuterol/ Ipratropium (Duoneb) 3 ml Q2H RESP THERAPY PRN NEB SHORTNESS OF BREATH; Start 11/21/18 at 05:30 Caspofungin 50 mg/ Sodium Chloride 250 ml @ 250 mls/hr Q24H IVPB Last admini stered on 12/19/18 13:20; Admin Dose 250 MLS/HR; Start 11/24/18 at 13:00 Miscellaneous Information 1 ea NOTE XX ; Start 11/23/18 at 13:30 Glucose (Glutose) 15 gm Q15M PRN PO DECREASED GLUCOSE; Start 11/23/18 at 13:30 Glucose (Glutose) 22.5 gm Q15M PRN PO DECREASED GLUCOSE; Start 11/23/18 at 13:30 Dextrose (D50w Syringe) 25 ml Q15M PRN IV DECREASED GLUCOSE Last administered on 12/09/18 13:59; Admin Dose 25 ML; Start 11/23/18 at 13:30 Dextrose (D50w Syringe) 50 ml Q15M PRN IV DECREASED GLUCOSE Last administered on 12/10/18 13:14; Admin Dose 50 ML; Start 11/23/18 at 13:30 Glucagon (Glucagen) 1 mg Q15M PRN IM DECREASED GLUCOSE; Start 11/23/18 at 13:30 Glucose (Glutose) 15 gm Q15M PRN BUCCAL DECREASED GLUCOSE; Start 11/23/18 at 13:30 Alteplase, Recombinant (Cathflo (Activase)) 2 mg MAY REPEAT X1 PRN CATHETER IF CATHETER REMAINS OCCULUDED Last administered on 12/02/18 15:47; Admin Dose 2 MG; Start 11/26/18 at 03:00 Albumin Human 100 ml @ 100 mls/hr DURING DIALYSIS PRN IV HYPOTENSION DURING HD Last administered on 12/16/18 08:52; Admin Dose 100 MLS/HR; Start 11/26/18 at 14:00 Levothyroxine Sodium (Synthroid) 75 mcg BEFORE BREAKFAST NGT Last administered on 12/19/18 05:41; Admin Dose 75 MCG; Start 11/29/18 at 07:00 Sodium Chloride 154 meq/Dextrose 1,038.5 ml @ 40 mls/hr Q24H IV Last administered on 12/18/18 22:11; Admin Dose 40 MLS/HR; Start 11/30/18 at 10:00 Collagenase (Santyl) 1 applic DAILY TOP Last administered on 12/19/18 08:41; Admin Dose 1 APPLIC; Start 12/01/18 at 16:30 Amiodarone HCl (Cordarone) 200 mg BID NGT Last administered on 12/19/18 08:41; Admin Dose 200 MG; Start 12/03/18 at 21:00 Acetaminophen (Tylenol Liquid) 650 mg Q6H PRN NGT PAIN LEVEL 1-3 OR FEVER; Start 12/06/18 at 09:00 Famotidine (Pepcid) 20 mg DAILY NGT Last administered on 12/19/18 08:41; Admin Dose 20 MG; Start 12/06/18 at 09:00 Folic Acid (Folic Acid) 1 mg DAILY NGT Last administered on 12/19/18 08:42; Admin Dose 1 MG; Start 12/06/18 at 09:00 Midodrine (Proamatine) 5 mg TID@,,17 GTB Last administered on 12/18/18 17:09; Admin Dose 5 MG; Start 12/07/18 at 09:00 Epoetin Margarito-epbx (RETACRIT(esrd)) 10,000 unit MoWeFr@1700 SC Last administered on 12/18/18 17:11; Admin Dose 10,000 UNIT; Start 12/11/18 at 17:00 Eye Lubricant (Artificial Tears Oph) 2 drop QID BOTH EYES Last administered on 12/19/18 17:20; Admin Dose 2 DROP; Start 12/10/18 at 09:00 Methylprednisolone Sodium Succinate (Solu-Medrol) 40 mg Q6 IV Last administered on 12/19/18 17:20; Admin Dose 40 MG; Start 12/10/18 at 18:00 Ertapenem 0.5 gm/ Sodium Chloride 100 ml @ 200 mls/hr Q24H IVPB Last ad ministered on 12/19/18 17:20; Admin Dose 200 MLS/HR; Start 12/15/18 at 18:00 Lorazepam (Ativan) 1 mg Q4H PRN IV AGITATION/ANXIETY Last administered on 12/19/18at 05:41; Admin Dose 1 MG; Start 12/15/18 at 11:00 Morphine Sulfate (morphine) 1 mg Q4H PRN IV SEVERE PAIN LEVEL 7-10 Last administered on 12/19/18at 03:37; Admin Dose 1 MG; Start 12/15/18 at 11:00 Metoclopramide HCl (Reglan) 5 mg Q8 IV Last administered on 12/19/18at 13:20; Admin Dose 5 MG; Start 12/17/18 at 12:00 RIKA STOCK December 19, 2018 18:14
--- NOTE | 2018-12-19 22:16 | CONS ---
Consult Date/Type/Reason Admit Date/Time Nov 21, 2018 at 04:53 Initial Consult Date Type of Consultation: Pulm/CC Requesting Provider: RIKA STOCK Date/Time of Note DATE: 12/19/18 TIME: 22:13 Subjective No events. Tolerating MV via trach. Objective Vitals Vital Signs Date Temp Pulse Resp B/P (MAP) Pulse Ox O2 O2 Flow FiO2 Time Delivery Rate 12/19/18 61 20:00 12/19/18 12 165/80 100 20:00 (108) 12/19/18 30 17:23 12/19/18 97.4 15:40 12/19/18 Mechanical 01:00 Ventilator Intake and Output 12/18/18 12/18/18 12/19/18 1515:00 23:00 07:00 IntakeIntake Total 220 ml OutputOutput Total 900 ml BalanceBalance -900 ml 220 ml Exam NECK: Supple. Tracheostomy in place. LUNGS: Fair breath sounds bilaterally. CARDIOVASCULAR: S1, S2 normal. ABDOMEN: Soft, nontender, no megaly or masses noted. EXTREMITIES: No clubbing or cyanosis noted. NEUROLOGIC: Generalized weakness. Results/Medications Result Diagram: 12/18/1870412/18/18 0705 Home Meds Reported Medications Folic Acid* (Folic Acid*) 1 Mg Tablet, 1 MG PO DAILY, TAB 08/10/18 Amiodarone Hcl* (Amiodarone Hcl*) 200 Mg Tablet, 200 MG PO BID, #60 TAB 08/10/18 Pantoprazole* (Protonix*) 40 Mg Tablet.dr, 40 MG PO DAILY, TAB 08/10/18 Multivit/Ca Carb/B Cmplx/Fa* (Iram-Xiomara*) 1 Tab Tab, 1 TAB PO DAILY, TAB 08/10/18 Levothyroxine Sodium* (Levoxyl*) 75 Mcg Tablet, 75 MCG PO BEFORE BREAKFAST, #30 TAB 08/10/18 Medications Current Medications Ondansetron HCl (Zofran Inj) 4 mg Q6H PRN IV NAUSEA AND/OR VOMITING Last administered on 12/11/18at 06:53; Admin Dose 4 MG; Start 11/21/18 at 05:30 Albuterol/ Ipratropium (Duoneb) 3 ml Q2H RESP THERAPY PRN NEB SHORTNESS OF BREATH; Start 11/21/18 at 05:30 Caspofungin 50 mg/ Sodium Chloride 250 ml @ 250 mls/hr Q24H IVPB Last administered on 12/19/18 13:20; Admin Dose 250 MLS/HR; Start 11/24/18 at 13:00 Miscellaneous Information 1 ea NOTE XX ; Start 11/23/18 at 13:30 Glucose (Glutose) 15 gm Q15M PRN PO DECREASED GLUCOSE; Start 11/23/18 at 13:30 Glucose (Glutose) 22.5 gm Q15M PRN PO DECREASED GLUCOSE; Start 11/23/18 at 13:30 Dextrose (D50w Syringe) 25 ml Q15M PRN IV DECREASED GLUCOSE Last administered on 12/09/18 13:59; Admin Dose 25 ML; Start 11/23/18 at 13:30 Dextrose (D50w Syringe) 50 ml Q15M PRN IV DECREASED GLUCOSE Last administered on 12/10/18 13:14; Admin Dose 50 ML; Start 11/23/18 at 13:30 Glucagon (Glucagen) 1 mg Q15M PRN IM DECREASED GLUCOSE; Start 11/23/18 at 13:30 Glucose (Glutose) 15 gm Q15M PRN BUCCAL DECREASED GLUCOSE; Start 11/23/18 at 13:30 Alteplase, Recombinant (Cathflo (Activase)) 2 mg MAY REPEAT X1 PRN CATHETER IF CATHETER REMAINS OCCULUDED Last administered on 12/02/18 15:47; Admin Dose 2 MG; Start 11/26/18 at 03:00 Albumin Human 100 ml @ 100 mls/hr DURING DIALYSIS PRN IV HYPOTENSION DURING HD Last administered on 12/16/18 08:52; Admin Dose 100 MLS/HR; Start 11/26/18 at 14:00 Levothyroxine Sodium (Synthroid) 75 mcg BEFORE BREAKFAST NGT Last administered on 12/19/18 05:41; Admin Dose 75 MCG; Start 11/29/18 at 07:00 Sodium Chloride 154 meq/Dextrose 1,038.5 ml @ 40 mls/hr Q24H IV Last adminis tered on 12/18/18 22:11; Admin Dose 40 MLS/HR; Start 11/30/18 at 10:00 Collagenase (Santyl) 1 applic DAILY TOP Last administered on 12/19/18 08:41; Admin Dose 1 APPLIC; Start 12/01/18 at 16:30 Amiodarone HCl (Cordarone) 200 mg BID NGT Last administered on 12/19/18 20:44; Admin Dose 200 MG; Start 12/03/18 at 21:00 Acetaminophen (Tylenol Liquid) 650 mg Q6H PRN NGT PAIN LEVEL 1-3 OR FEVER; Sta rt 12/06/18 at 09:00 Famotidine (Pepcid) 20 mg DAILY NGT Last administered on 12/19/18 08:41; Admin Dose 20 MG; Start 12/06/18 at 09:00 Folic Acid (Folic Acid) 1 mg DAILY NGT Last administered on 12/19/18 08:42; Admin Dose 1 MG; Start 12/06/18 at 09:00 Midodrine (Proamatine) 5 mg TID@,13,17 GTB Last administered on 12/18/18 17:09; Admin Dose 5 MG; Start 12/07/18 at 09:00 Epoetin Margarito-epbx (RETACRIT(esrd)) 10,000 unit MoWeFr@1700 SC Last administered on 12/18/18 17:11; Admin Dose 10,000 UNIT; Start 12/11/18 at 17:00 Eye Lubricant (Artificial Tears Oph) 2 drop QID BOTH EYES Last administered on 12/19/18 20:45; Admin Dose 2 DROP; Start 12/10/18 at 09:00 Methylprednisolone Sodium Succinate (Solu-Medrol) 40 mg Q6 IV Last administered on 12/19/18 17:20; Admin Dose 40 MG; Start 12/10/18 at 18:00 Ertapenem 0.5 gm/ Sodium Chloride 100 ml @ 200 mls/hr Q24H IVPB Last administered on 12/19/18 17:20; Admin Dose 200 MLS/HR; Start 12/15/18 at 18:00 Lorazepam (Ativan) 1 mg Q4H PRN IV AGITATION/ANXIETY Last administered on 12/19/18 05:41; Admin Dose 1 MG; Start 12/15/18 at 11:00 Morphine Sulfate (morphine) 1 mg Q4H PRN IV SEVERE PAIN LEVEL 7-10 Last administered on 12/19/18 03:37; Admin Dose 1 MG; Start 12/15/18 at 11:00 Metoclopramide HCl (Reglan) 5 mg Q8 IV Last administered on 12/19/18at 13:20; Admin Dose 5 MG; Start 12/17/18 at 12:00 Assessment/Plan Assessment/Plan (Daily) IMP: 1. Ventilator-dependent respiratory failure, status post tracheostomy. 2. Gram-negative sepsis. 3. End-stage renal disease on hemodialysis. 4. Cardiomyopathy. 5. Thrombocytopenia. 6. Anemia. 7. Status post septic shock. RECS: 1. Continue vent support--> will try SIMV with PS 2. Continue antibiotics as per ID. 3. Hemodialysis per nephrology. SHERON CAPUTO MD December 19, 2018 22:16
[2018-12-20] VITALS (36 sets, daily range): BP systolic 61–179; BP diastolic 44–86; PULSE 56–130; RESP 11–28
[2018-12-20] MEDS: METHYLPREDNISOLONE 40 MG INJ IV SCH ×4 (00:21→17:23)
[2018-12-20] MEDS: SODIUM CHLORIDE 23.4% 154 MEQ in DEXTROSE 10% 1,000 ML IV SCH (01:33)
[2018-12-20] MEDS: METOCLOPRAMIDE 10 MG INJ IV SCH ×3 (05:16→21:38)
[2018-12-20] MEDS: LEVOTHYROXINE 75 MCG TAB NGT SCH (05:18)
[2018-12-20] MEDS: AMIODARONE 200 MG TAB NGT SCH ×3 (08:58→21:38)
[2018-12-20] MEDS: ARTIFICIAL TEARS 15 ML OPH BOTH EYES SCH ×4 (08:58→21:38)
[2018-12-20] MEDS: FAMOTIDINE 20 MG TAB NGT SCH (08:59)
[2018-12-20] MEDS: FOLIC ACID 1 MG TAB NGT SCH (08:59)
[2018-12-20] MEDS: MIDODRINE 5 MG TAB GTB SCH ×3 (09:00→17:00)
[2018-12-20] MEDS: COLLAGENASE 5 GM (UD JAR) TOP SCH (10:09)
[2018-12-20] MEDS: BALSAM PERU/CASTOR OIL 60 GM TUBE TOP SCH ×2 (10:09→21:38)
--- NOTE | 2018-12-20 11:37 | CONS ---
Assessment/Plan Assessment/Plan Hospital Course (Demo Recall) 1. End-stage renal disease. HD today. We will dialyze 3 hours 3k bath, calcium 2.5. 2. Volume overload, anasarca. Continue ultrafiltration dialysis. 3. Sepsis, status post shock. The patient is completing antibiotic course. 4. Anemia. Monitor hemoglobin and hematocrit levels. Continue Epogen. 5. Mineral bone disorder, monitor calcium and phosphorus levels. 6. Ventilator-dependent respiratory failure. Vent settings and ABG was reviewed. 7. Encephalopathy, etiology toxic metabolic. Continue to monitor. 8. Hypothyroidism. Continue Synthroid. 9. Dysphagia. Continue tube feeding. 10. Arrhythmia. Continue amiodarone. 11. Thrombocytopenia. Continue to monitor. 12. Lower extremity wounds. Continue wound care. 13. Status post cardiopulmonary arrest. 14. HTN: on midodrine. will have holding parameters. if continues to be elevated, will need to start anti-htn meds Consultation Date/Type/Reason Admit Date/Time Nov 21, 2018 at 04:53 Initial Consult Date Requesting Provider: RIKA STOCK Date/Time of Note DATE: 12/20/18 TIME: 11:36 24 HR Interval Summary Free Text/Dictation BP elevated gen nad cv rrr pulm ctab abd soft, nd, nt +bs ext: no edema Exam/Review of Systems Exam Vitals Vital Signs Date Temp Pulse Resp B/P (MAP) Pulse Ox O2 O2 Flow FiO2 Time Delivery Rate 12/20/18 97.1 10:00 12/20/18 61 18 96 30 09:20 12/20/18 179/86 07:49 (117) 12/19/18 Mechanical 01:00 Ventilator Intake and Output 12/19/18 12/19/18 12/20/18 1515:00 23:00 07:00 IntakeIntake Total 200 ml 1398.5 ml BalanceBalance 200 ml 1398.5 ml Results Result Diagram: 12/20/18 0613 12/20/18 0613 Results 24hrs Laboratory Tests Test 12/20/18 06:13 White Blood Count 17.1 #H Red Blood Count 3.60 L Hemoglobin 11.2 L Hematocrit 35.1 L Mean Corpuscular Volume 97.5 Mean Corpuscular Hemoglobin 31.1 Mean Corpuscular Hemoglobin Concent 31.9 L Red Cell Distribution Width 19.0 H Platelet Count 31 #L Mean Platelet Volume Immature Granulocytes % 0.500 H Neutrophils % 94.8 H Lymphocytes % 1.7 L Monocytes % 2.9 Eosinophils % 0.0 Basophils % 0.1 Nucleated Red Blood Cells % 0.0 Immature Granulocytes # 0.080 H Neutrophils # 16.2 H Lymphocytes # 0.3 L Monocytes # 0.5 Eosinophils # 0.0 Basophils # 0.0 Nucleated Red Blood Cells # 0.0 Sodium Level 138 Potassium Level 4.5 Chloride Level 108 Carbon Dioxide Level 20 L Anion Gap 10 Blood Urea Nitrogen 80 H Creatinine 1.47 H Est Glomerular Filtrat Rate mL/min 37 L Glucose Level 179 Calcium Level 6.6 L Medications Medication Current Medications Ondansetron HCl (Zofran Inj) 4 mg Q6H PRN IV NAUSEA AND/OR VOMITING Last administered on 12/11/18at 06:53; Admin Dose 4 MG; Start 11/21/18 at 05:30 Albuterol/ Ipratropium (Duoneb) 3 ml Q2H RESP THERAPY PRN NEB SHORTNESS OF BREATH; Start 11/21/18 at 05:30 Caspofungin 50 mg/ Sodium Chloride 250 ml @ 250 mls/hr Q24H IVPB Last administered on 12/19/18at 13:20; Admin Dose 250 MLS/HR; Start 11/24/18 at 13:00 Miscellaneous Information 1 ea NOTE XX ; Start 11/23/18 at 13:30 Glucose (Glutose) 15 gm Q15M PRN PO DECREASED GLUCOSE; Start 11/23/18 at 13:30 Glucose (Glutose) 22.5 gm Q15M PRN PO DECREASED GLUCOSE; Start 11/23/18 at 13:30 Dextrose (D50w Syringe) 25 ml Q15M PRN IV DECREASED GLUCOSE Last administered on 12/09/18at 13:59; Admin Dose 25 ML; Start 11/23/18 at 13:30 Dextrose (D50w Syringe) 50 ml Q15M PRN IV DECREASED GLUCOSE Last administered on 12/10/18at 13:14; Admin Dose 50 ML; Start 11/23/18 at 13:30 Glucagon (Glucagen) 1 mg Q15M PRN IM DECREASED GLUCOSE; Start 11/23/18 at 13:30 Glucose (Glutose) 15 gm Q15M PRN BUCCAL DECREASED GLUCOSE; Start 11/23/18 at 13:30 Alteplase, Recombinant (Cathflo (Activase)) 2 mg MAY REPEAT X1 PRN CATHETER IF CATHETER REMAINS OCCULUDED Last administered on 12/02/18 15:47; Admin Dose 2 MG; Start 11/26/18 at 03:00 Albumin Human 100 ml @ 100 mls/hr DURING DIALYSIS PRN IV HYPOTENSION DURING HD Last administered on 12/16/18 08:52; Admin Dose 100 MLS/HR; Start 11/26/18 at 14:00 Levothyroxine Sodium (Synthroid) 75 mcg BEFORE BREAKFAST NGT Last administered on 12/20/18 05:18; Admin Dose 75 MCG; Start 11/29/18 at 07:00 Sodium Chloride 154 meq/Dextrose 1,038.5 ml @ 40 mls/hr Q24H IV Last administered on 12/20/18 01:33; Admin Dose 40 MLS/HR; Start 11/30/18 at 10:00 Collagenase (Santyl) 1 applic DAILY TOP Last administered on 12/20/18 10:09; Admin Dose 1 APPLIC; Start 12/01/18 at 16:30 Amiodarone HCl (Cordarone) 200 mg BID NGT Last administered on 12/19/18 20:44; Admin Dose 200 MG; Start 12/03/18 at 21:00 Acetaminophen (Tylenol Liquid) 650 mg Q6H PRN NGT PAIN LEVEL 1-3 OR FEVER; Start 12/06/18 at 09:00 Famotidine (Pepcid) 20 mg DAILY NGT Last administered on 12/20/18 08:59; Admin Dose 20 MG; Start 12/06/18 at 09:00 Folic Acid (Folic Acid) 1 mg DAILY NGT Last administered on 12/20/18 08:59; Admin Dose 1 MG; Start 12/06/18 at 09:00 Midodrine (Proamatine) 5 mg TID@,,17 GTB Last administered on 12/18/18 17:09; Admin Dose 5 MG; Start 12/07/18 at 09:00 Epoetin Margarito-epbx (RETACRIT(esrd)) 10,000 unit MoWeFr@1700 SC Last administered on 12/18/18 17:11; Admin Dose 10,000 UNIT; Start 12/11/18 at 17:00 Eye Lubricant (Artificial Tears Oph) 2 drop QID BOTH EYES Last administered on 12/20/18 08:58; Admin Dose 2 DROP; Start 12/10/18 at 09:00 Methylprednisolone Sodium Succinate (Solu-Medrol) 40 mg Q6 IV Last administered on 12/20/18 05:15; Admin Dose 40 MG; Start 12/10/18 at 18:00 Ertapenem 0.5 gm/ Sodium Chloride 100 ml @ 200 mls/hr Q24H IVPB Last administered on 12/19/18 17:20; Admin Dose 200 MLS/HR; Start 12/15/18 at 18:00 Lorazepam (Ativan) 1 mg Q4H PRN IV AGITATION/ANXIETY Last administered on 12/19/18 05:41; Admin Dose 1 MG; Start 12/15/18 at 11:00 Morphine Sulfate (morphine) 1 mg Q4H PRN IV SEVERE PAIN LEVEL 7-10 Last administered on 12/19/18 03:37; Admin Dose 1 MG; Start 12/15/18 at 11:00 Metoclopramide HCl (Reglan) 5 mg Q8 IV Last administered on 12/20/18 05:16; Admin Dose 5 MG; Start 12/17/18 at 12:00 NAZARIO HAN MD December 20, 2018 11:37
[2018-12-20] MEDS: ALBUMIN HUMAN 25% 100 ML IV PRN (11:55)
--- NOTE | 2018-12-20 12:46 | PN ---
Date/Time of Note Date/Time of Note DATE: 12/20/18 TIME: 12:44 Assessment/Plan Lines/Catheters IV Catheter Type (from Nrsg): Mid Line Moon in Place (from Nrsg): No Assessment/Plan Assessment/Plan Status post tracheostomy We will continue vent support Local [facility] care Pulmonary toilet Subjective 24 Hr Interval Summary Constitutional: improved Pain Control: mild Exam/Review of Systems Vital Signs Vitals Vital Signs Date Temp Pulse Resp B/P (MAP) Pulse Ox O2 O2 Flow FiO2 Time Delivery Rate 12/20/18 66 18 96 30 11:15 12/20/18 97.1 10:00 12/20/18 179/86 07:49 (117) 12/19/18 Mechanical 01:00 Ventilator Intake and Output 12/19/18 12/19/18 12/20/18 1515:00 23:00 07:00 IntakeIntake Total 200 ml 1398.5 ml BalanceBalance 200 ml 1398.5 ml Exam Eyes: nl conjunctiva, EOMI, nl lids, nl sclera ENMT: nl external ears & nose, nl lips & teeth, nl nasal mucosa & septum, mucosa pink and moist Neck: supple, non-tender Results Result Diagram: 12/20/18 0613 12/20/18 0613 TAE PAN MD December 20, 2018 12:46
[2018-12-20] MEDS ORDERED: ALTEPLASE (CATHFLO) 2 MG INJ CATHETER ONE (13:00)
--- NOTE | 2018-12-20 13:02 | PN ---
Date/Time of Note Date/Time of Note DATE: 12/20/18 TIME: 12:58 Assessment/Plan VTE Prophylaxis Risk score (from [facility])>0 risk: 9 SCD applied (from [facility]): Yes Pharmacological prophylaxis: NA/contraindicated Pharm contraindication: liver dx Lines/Catheters IV Catheter Type (from [facility]): Mid Line Urinary Cath still in place: No Assessment/Plan Hospital Course 58 yo female with ESRD, cirrhosis, DMII presents with hypoglycemia, leg infection. Suffered cardiac and respiratory arrest, now intubated Acute respiratory failure: - MV per pulm -Status post tracheostomy - s/p G tube -Ultrasound continues to show pleural effusions, defer need for thoracentesis to pulmonology Septic shock: Resolved - Antibiotics per ID, on ertapenem Hypoglycemia: No history of diabetes and patient not on any insulin or sulfonylurea or any other diabetic medication - Continue IV dextrose and tube feeds Left lower extremity wound - Antibiotics per ID -Venous study was negative for DVT A Fib: - Amiodarone ESRD with fluid overload - HD per nephrology Early cirrhosis -Hepatitis panel is negative -Patient with no history of obesity or alcohol abuse -Follow-up on [facility] -Outpatient monitoring Hypothyroidism: Continue Synthroid History of pacemaker: No acute issue History of spontaneous abortions -Based on history of multiple miscarriages and having been placed on anticoagula nts for blood clot prevention patient likely has a history of antiphospholipid syndrome Prophylaxis: SCDs DC planning: Placement in subacute is pending Result Diagram: 12/20/1813 12/20/18 0613 Results 24hrs Laboratory Tests Test 12/20/18 06:13 White Blood Count 17.1 #H Red Blood Count 3.60 L Hemoglobin 11.2 L Hematocrit 35.1 L Mean Corpuscular Volume 97.5 Mean Corpuscular Hemoglobin 31.1 Mean Corpuscular Hemoglobin Concent 31.9 L Red Cell Distribution Width 19.0 H Platelet Count 31 #L Mean Platelet Volume Immature Granulocytes % 0.500 H Neutrophils % 94.8 H Lymphocytes % 1.7 L Monocytes % 2.9 Eosinophils % 0.0 Basophils % 0.1 Nucleated Red Blood Cells % 0.0 Immature Granulocytes # 0.080 H Neutrophils # 16.2 H Lymphocytes # 0.3 L Monocytes # 0.5 Eosinophils # 0.0 Basophils # 0.0 Nucleated Red Blood Cells # 0.0 Sodium Level 138 Potassium Level 4.5 Chloride Level 108 Carbon Dioxide Level 20 L Anion Gap 10 Blood Urea Nitrogen 80 H Creatinine 1.47 H Est Glomerular Filtrat Rate mL/min 37 L Glucose Level 179 Calcium Level 6.6 L Subjective 24 Hr Interval Summary Subjective hx not possible: pt non-verbal Exam/Review of Systems Exam Vitals Vital Signs Date Temp Pulse Resp B/P (MAP) Pulse Ox O2 O2 Flow FiO2 Time Delivery Rate 12/20/18 82 12:53 12/20/18 18 96 30 11:15 12/20/18 97.1 10:00 12/20/18 179/86 07:49 (117) 12/19/18 Mechanical 01:00 Ventilator Intake and Output 12/19/18 12/19/18 12/20/18 1515:00 23:00 07:00 IntakeIntake Total 200 ml 1398.5 ml BalanceBalance 200 ml 1398.5 ml Constitutional: non-verbal Respiratory: clear to auscultation Cardiovascular: regular rate and rhythm Gastrointestinal: soft; No distended Musculoskeletal: nl extremities to inspection Results Results 24hrs Laboratory Tests Test 12/20/18 06:13 White Blood Count 17.1 #H Red Blood Count 3.60 L Hemoglobin 11.2 L Hematocrit 35.1 L Mean Corpuscular Volume 97.5 Mean Corpuscular Hemoglobin 31.1 Mean Corpuscular Hemoglobin Concent 31.9 L Red Cell Distribution Width 19.0 H Platelet Count 31 #L Mean Platelet Volume Immature Granulocytes % 0.500 H Neutrophils % 94.8 H Lymphocytes % 1.7 L Monocytes % 2.9 Eosinophils % 0.0 Basophils % 0.1 Nucleated Red Blood Cells % 0.0 Immature Granulocytes # 0.080 H Neutrophils # 16.2 H Lymphocytes # 0.3 L Monocytes # 0.5 Eosinophils # 0.0 Basophils # 0.0 Nucleated Red Blood Cells # 0.0 Sodium Level 138 Potassium Level 4.5 Chloride Level 108 Carbon Dioxide Level 20 L Anion Gap 10 Blood Urea Nitrogen 80 H Creatinine 1.47 H Est Glomerular Filtrat Rate mL/min 37 L Glucose Level 179 Calcium Level 6.6 L Medications Medication Current Medications Ondansetron HCl (Zofran Inj) 4 mg Q6H PRN IV NAUSEA AND/OR VOMITING Last administered on 12/11/18at 06:53; Admin Dose 4 MG; Start 11/21/18 at 05:30 Albuterol/ Ipratropium (Duoneb) 3 ml Q2H RESP THERAPY PRN NEB SHORTNESS OF BREATH; Start 11/21/18 at 05:30 Caspofungin 50 mg/ Sodium Chloride 250 ml @ 250 mls/hr Q24H IVPB Last administered on 12/19/18 13:20; Admin Dose 250 MLS/HR; Start 11/24/18 at 13:00 Miscellaneous Information 1 ea NOTE XX ; Start 11/23/18 at 13:30 Glucose (Glutose) 15 gm Q15M PRN PO DECREASED GLUCOSE; Start 11/23/18 at 13:30 Glucose (Glutose) 22.5 gm Q15M PRN PO DECREASED GLUCOSE; Start 11/23/18 at 13:30 Dextrose (D50w Syringe) 25 ml Q15M PRN IV DECREASED GLUCOSE Last administered on 12/09/18at 13:59; Admin Dose 25 ML; Start 11/23/18 at 13:30 Dextrose (D50w Syringe) 50 ml Q15M PRN IV DECREASED GLUCOSE Last administered on 12/10/18 13:14; Admin Dose 50 ML; Start 11/23/18 at 13:30 Glucagon (Glucagen) 1 mg Q15M PRN IM DECREASED GLUCOSE; Start 11/23/18 at 13:30 Glucose (Glutose) 15 gm Q15M PRN BUCCAL DECREASED GLUCOSE; Start 11/23/18 at 13:30 Alteplase, Recombinant (Cathflo (Activase)) 2 mg MAY REPEAT X1 PRN CATHETER IF CATHETER REMAINS OCCULUDED Last administered on 12/02/18at 15:47; Admin Dose 2 MG; Start 11/26/18 at 03:00 Albumin Human 100 ml @ 100 mls/hr DURING DIALYSIS PRN IV HYPOTENSION DURING HD Last administered on 12/20/18 11:55; Admin Dose 100 MLS/HR; Start 11/26/18 at 14:00 Levothyroxine Sodium (Synthroid) 75 mcg BEFORE BREAKFAST NGT Last administered on 12/20/18 05:18; Admin Dose 75 MCG; Start 11/29/18 at 07:00 Sodium Chloride 154 meq/Dextrose 1,038.5 ml @ 40 mls/hr Q24H IV Last administered on 12/20/18 01:33; Admin Dose 40 MLS/HR; Start 11/30/18 at 10:00 Collagenase (Santyl) 1 applic DAILY TOP Last administered on 12/20/18 10:09; Admin Dose 1 APPLIC; Start 12/01/18 at 16:30 Amiodarone HCl (Cordarone) 200 mg BID NGT Last administered on 12/19/18 20:44; Admin Dose 200 MG; Start 12/03/18 at 21:00 Acetaminophen (Tylenol Liquid) 650 mg Q6H PRN NGT PAIN LEVEL 1-3 OR FEVER; Start 12/06/18 at 09:00 Famotidine (Pepcid) 20 mg DAILY NGT Last administered on 12/20/18 08:59; Admin Dose 20 MG; Start 12/06/18 at 09:00 Folic Acid (Folic Acid) 1 mg DAILY NGT Last administered on 12/20/18 08:59; Admin Dose 1 MG; Start 12/06/18 at 09:00 Midodrine (Proamatine) 5 mg TID@,13,17 GTB Last administered on 12/20/18 11:57; Admin Dose 5 MG; Start 12/07/18 at 09:00 Epoetin Margarito-epbx (RETACRIT(esrd)) 10,000 unit MoWeFr@1700 SC Last administered on 12/18/18 17:11; Admin Dose 10,000 UNIT; Start 12/11/18 at 17:00 Eye Lubricant (Artificial Tears Oph) 2 drop QID BOTH EYES Last administered on 12/20/18 11:57; Admin Dose 2 DROP; Start 12/10/18 at 09:00 Methylprednisolone Sodium Succinate (Solu-Medrol) 40 mg Q6 IV Last administered on 12/20/18 11:57; Admin Dose 40 MG; Start 12/10/18 at 18:00 Ertapenem 0.5 gm/ Sodium Chloride 100 ml @ 200 mls/hr Q24H IVPB Last administered on 12/19/18 17:20; Admin Dose 200 MLS/HR; Start 12/15/18 at 18:00 Lorazepam (Ativan) 1 mg Q4H PRN IV AGITATION/ANXIETY Last administered on 12/19/18 05:41; Admin Dose 1 MG; Start 12/15/18 at 11:00 Morphine Sulfate (morphine) 1 mg Q4H PRN IV SEVERE PAIN LEVEL 7-10 Last administered on 12/19/18at 03:37; Admin Dose 1 MG; Start 12/15/18 at 11:00 Metoclopramide HCl (Reglan) 5 mg Q8 IV Last administered on 12/20/18at 05:16; Admin Dose 5 MG; Start 12/17/18 at 12:00 RIKA STOCK December 20, 2018 13:02
--- NOTE | 2018-12-20 13:03 | CONS ---
Assessment/Plan Assessment/Plan Hospital Course (Demo Recall) ID PROGRESS NOTE CURRENT ABX: DAY # =>ERTAPENEM + CANCIDAS 24H INTERVAL SUMMARY * No fevers, WBC up slightly today -- requires oral suction * Cachexia chronic debility -- remains Lethargic, awakens, extremely frail w/generalized weakness * INVASIVES: Right upper thigh Davie catheter, left femoral triple-lumen catheter, trach * Microbiology: Blood culture on admission grew Klebsiella ESBL, repeat blood cultures negative, left thigh wound culture grew Klebsiella ESBL and Leah albicans DIAGNOSTIC IMAGING * 12/18/18 CHEST US: Small right pleural effusion and moderate left pleural effusion. MICRO/OTHER * 11/25/18 RESP CX (+) LEAH ALBICANS * 11/23/2018 BCX (-) * 11/21/18 WOUND CULTURE Final Organism 1 K PNEUMO ESBL QUANTITY SCANT GROWTH . MULTI DRUG RESISTANT ORGANISM Organism 2 LEAH ALBICANS QUANTITY SCANT GROWTH KLEB PNEUM KLEB PNEUM M.I.C. RX M.I.C. RX --------- --- --------- --- AMIKACIN 16 S CEFAZOLIN R CEFEPIME 2 S CEFOTAXIME R CIPROFLOXACIN 2 I GENTAMICIN >=16 R LEVOFLOXACIN 1 S MEROPENEM 0.094 S TOBRAMYCIN >=16 R TRIMETHOPRIM/SULFAMETHOXAZOLE >=320 R PIPERACILLIN/TAZOBACTAM 16 S * 11/21/2018 BCX == BLOOD CULTURE GRAM NEGATIVE MERARY * BLOOD CULTURE Final KLEB PNEUM KLEB PNEUM M.I.C. RX M.I.C. RX --------- --- --------- --- AMIKACIN 16 S CEFAZOLIN R CEFOTAXIME R CIPROFLOXACIN 2 I GENTAMICIN >=16 R LEVOFLOXACIN 1 S MEROPENEM 0.064 S TOBRAMYCIN >=16 R TRIMETHOPRIM/SULFAMETHOXAZOLE >=320 R PIPERACILLIN/TAZOBACTAM 16 S PHYSICAL EXAMINATION: GENERAL: Frail, cachectic, F w/hypoxic resp failure --- A/A/O HEENT: AT, NC, anicteric NECK: Supple (+)trach == sternocleidomastoid retractions CHEST: Equal chest rise bilaterally==> Vented HEART: RRR ABDOMEN: Mild distended EXTREMITIES: Warm, dry, mild edema x4 extremities, skin tears BLExt, * multiple ecchymotic areas and bruises, left upper thigh dressing present SKIN: No rash, no diaphoresis, STG 3 sacral decubs ID ASSESSMENT 58 yo F admit with: 1. GNR SEPSIS w/hypotension -- septic shock vs hypovolemic vs combination, w/cold shock, leukopenia = RESOLVED * 11/21/18 BCX (+) Organism 1 GRAM NEGATIVE MERARY = KP-ESBL * Septic left lower extremity open wound w/hx of infected leg graft * Presumptive spontaneous bacterial peritonitis = DDX due to hx of ascites, presence of PD catheter, s/p Paracentesis prior admit to [facility] 2. Acute encephalopathy on admission: Secondary to severe hypoglycemia * Head CT negative for acute findings 3. Hypercapnic respiratory failure => Supplemental O2 + BiPAP PRN * Pulmonary edema, possible HCAP * 11/21/18 CXR: IMPRESSION:1. Changes are again seen suggesting pulmonary congestion/edema with small to moderate effusions and atelectasis or other consolidation. 4. Left lower extremity wound and pitting edema= PAD s/p bypass graft SEP 2018 * 11/21/18 WOUND CULTURE Final Organism 1 K PNEUMO ESBL QUANTITY SCANT GROWTH . MULTI DRUG RESISTANT ORGANISM Organism 2 LEAH ALBICANS * s/p recent admission for 2 weeks at [facility], where she had procedure. * Venous study was negative for DVT here [facility] on admission 5. ESRD: Nephrology consulted == HD 6. Hx of chronic peritoneal dialysis w/indwelling PD catheter that is currently not being removed because of the severe thrombocytopenia. * PLAN PER NOTES: This can be addressed at [facility] where she usually gets her care 7. Ascites: Status post paracentesis about 5 weeks ago with removal of 4.5 L * At risk SBP due to ascites and indwelling PD catheter 8. Hypertension: 9. Pacemaker post implant status 10. Pancytopenia: Patient had workup here during recent hospitalization. 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 Hypothyroidism-> Synthroid on board 12. Failure to thrive: Patient with weight loss protein sharron malnutrition 13. STG 3 SACRAL DECUB = POA 14. S/P B mastoiditis and acute sinusitis per CT=> TREATED W/ABX (-)MRSA Nares ABX ALLERGIES: PCN/Vanco IV INVASIVES: Right upper thigh Davie catheter, left femoral triple-lumen catheter, endotracheal tube, orogastric tube, midline CURRENT ABX: DAY # ERTAPENEM + CANCIDAS ID RECOMMENDATIONS/PLAN: 1. Remains on current ABX for suspicion of infected lower extremity bypass graft . Consultation Date/Type/Reason Admit Date/Time Nov 21, 2018 at 04:53 Initial Consult Date Requesting Provider: RIKA STOCK Date/Time of Note DATE: 12/20/18 TIME: 13:01 Exam/Review of Systems Exam Vitals Vital Signs Date Temp Pulse Resp B/P (MAP) Pulse Ox O2 O2 Flow FiO2 Time Delivery Rate 12/20/18 82 12:53 12/20/18 18 96 30 11:15 12/20/18 97.1 10:00 12/20/18 179/86 07:49 (117) 12/19/18 Mechanical 01:00 Ventilator Intake and Output 12/19/18 12/19/18 12/20/18 1515:00 23:00 07:00 IntakeIntake Total 200 ml 1398.5 ml BalanceBalance 200 ml 1398.5 ml Results Result Diagram: 12/20/18 0613 12/20/18 0613 Results 24hrs Laboratory Tests Test 12/20/18 06:13 White Blood Count 17.1 #H Red Blood Count 3.60 L Hemoglobin 11.2 L Hematocrit 35.1 L Mean Corpuscular Volume 97.5 Mean Corpuscular Hemoglobin 31.1 Mean Corpuscular Hemoglobin Concent 31.9 L Red Cell Distribution Width 19.0 H Platelet Count 31 #L Mean Platelet Volume Immature Granulocytes % 0.500 H Neutrophils % 94.8 H Lymphocytes % 1.7 L Monocytes % 2.9 Eosinophils % 0.0 Basophils % 0.1 Nucleated Red Blood Cells % 0.0 Immature Granulocytes # 0.080 H Neutrophils # 16.2 H Lymphocytes # 0.3 L Monocytes # 0.5 Eosinophils # 0.0 Basophils # 0.0 Nucleated Red Blood Cells # 0.0 Sodium Level 138 Potassium Level 4.5 Chloride Level 108 Carbon Dioxide Level 20 L Anion Gap 10 Blood Urea Nitrogen 80 H Creatinine 1.47 H Est Glomerular Filtrat Rate mL/min 37 L Glucose Level 179 Calcium Level 6.6 L Medications Medication Current Medications Ondansetron HCl (Zofran Inj) 4 mg Q6H PRN IV NAUSEA AND/OR VOMITING Last administered on 12/11/18at 06:53; Admin Dose 4 MG; Start 11/21/18 at 05:30 Albuterol/ Ipratropium (Duoneb) 3 ml Q2H RESP THERAPY PRN NEB SHORTNESS OF BREATH; Start 11/21/18 at 05:30 Caspofungin 50 mg/ Sodium Chloride 250 ml @ 250 mls/hr Q24H IVPB Last administered on 12/19/18at 13:20; Admin Dose 250 MLS/HR; Start 11/24/18 at 13:00 Miscellaneous Information 1 ea NOTE XX ; Start 11/23/18 at 13:30 Glucose (Glutose) 15 gm Q15M PRN PO DECREASED GLUCOSE; Start 11/23/18 at 13:30 Glucose (Glutose) 22.5 gm Q15M PRN PO DECREASED GLUCOSE; Start 11/23/18 at 13:30 Dextrose (D50w Syringe) 25 ml Q15M PRN IV DECREASED GLUCOSE Last administered on 12/09/18at 13:59; Admin Dose 25 ML; Start 11/23/18 at 13:30 Dextrose (D50w Syringe) 50 ml Q15M PRN IV DECREASED GLUCOSE Last administered on 12/10/18at 13:14; Admin Dose 50 ML; Start 11/23/18 at 13:30 Glucagon (Glucagen) 1 mg Q15M PRN IM DECREASED GLUCOSE; Start 11/23/18 at 13:30 Glucose (Glutose) 15 gm Q15M PRN BUCCAL DECREASED GLUCOSE; Start 11/23/18 at 13:30 Alteplase, Recombinant (Cathflo (Activase)) 2 mg MAY REPEAT X1 PRN CATHETER IF CATHETER REMAINS OCCULUDED Last administered on 12/02/18at 15:47; Admin Dose 2 MG; Start 11/26/18 at 03:00 Albumin Human 100 ml @ 100 mls/hr DURING DIALYSIS PRN IV HYPOTENSION DURING HD Last administered on 12/20/18 11:55; Admin Dose 100 MLS/HR; Start 11/26/18 at 14:00 Levothyroxine Sodium (Synthroid) 75 mcg BEFORE BREAKFAST NGT Last administered on 12/20/18 05:18; Admin Dose 75 MCG; Start 11/29/18 at 07:00 Sodium Chloride 154 meq/Dextrose 1,038.5 ml @ 40 mls/hr Q24H IV Last administered on 12/20/18 01:33; Admin Dose 40 MLS/HR; Start 11/30/18 at 10:00 Collagenase (Santyl) 1 applic DAILY TOP Last administered on 12/20/18 10:09; A dmin Dose 1 APPLIC; Start 12/01/18 at 16:30 Amiodarone HCl (Cordarone) 200 mg BID NGT Last administered on 12/19/18 20:44; Admin Dose 200 MG; Start 12/03/18 at 21:00 Acetaminophen (Tylenol Liquid) 650 mg Q6H PRN NGT PAIN LEVEL 1-3 OR FEVER; Start 12/06/18 at 09:00 Famotidine (Pepcid) 20 mg DAILY NGT Last administered on 12/20/18 08:59; Admin Dose 20 MG; Start 12/06/18 at 09:00 Folic Acid (Folic Acid) 1 mg DAILY NGT Last administered on 12/20/18 08:59; Admin Dose 1 MG; Start 12/06/18 at 09:00 Midodrine (Proamatine) 5 mg TID@,,17 GTB Last administered on 12/20/18 11:57; Admin Dose 5 MG; Start 12/07/18 at 09:00 Epoetin Margarito-epbx (RETACRIT(esrd)) 10,000 unit MoWeFr@1700 SC Last administered on 12/18/18 17:11; Admin Dose 10,000 UNIT; Start 12/11/18 at 17:00 Eye Lubricant (Artificial Tears Oph) 2 drop QID BOTH EYES Last administered on 12/20/18 11:57; Admin Dose 2 DROP; Start 12/10/18 at 09:00 Methylprednisolone Sodium Succinate (Solu-Medrol) 40 mg Q6 IV Last administered on 12/20/18 11:57; Admin Dose 40 MG; Start 12/10/18 at 18:00 Ertapenem 0.5 gm/ Sodium Chloride 100 ml @ 200 mls/hr Q24H IVPB Last administered on 12/19/18at 17:20; Admin Dose 200 MLS/HR; Start 12/15/18 at 18:00 Lorazepam (Ativan) 1 mg Q4H PRN IV AGITATION/ANXIETY Last administered on 12/19/18at 05:41; Admin Dose 1 MG; Start 12/15/18 at 11:00 Morphine Sulfate (morphine) 1 mg Q4H PRN IV SEVERE PAIN LEVEL 7-10 Last administered on 12/19/18 03:37; Admin Dose 1 MG; Start 12/15/18 at 11:00 Metoclopramide HCl (Reglan) 5 mg Q8 IV Last administered on 12/20/18 05:16; Admin Dose 5 MG; Start 12/17/18 at 12:00 MARCO LOZADA NP December 20, 2018 13:03
[2018-12-20] MEDS: CASPOFUNGIN 50 MG in SOD CHLORIDE 0.9% 250 ML IVPB SCH (15:32)
--- NOTE | 2018-12-20 16:03 | CONS ---
Consult Date/Type/Reason Admit Date/Time Nov 21, 2018 at 04:53 Initial Consult Date Type of Consultation: Pulm/CC Requesting Provider: RIKA STOCK Date/Time of Note DATE: 12/20/18 TIME: 16:02 Subjective No events. Appears comfortable on MV. Objective Vitals Vital Signs Date Temp Pulse Resp B/P (MAP) Pulse Ox O2 O2 Flow FiO2 Time Delivery Rate 12/20/18 66 20 100 30 15:48 12/20/18 115/81 Mechanical 15:26 (92) Ventilator 12/20/18 97.1 10:00 Intake and Output 12/19/18 12/19/18 12/20/18 1515:00 23:00 07:00 IntakeIntake Total 200 ml 1398.5 ml BalanceBalance 200 ml 1398.5 ml Exam NECK: Supple. Tracheostomy in place. LUNGS: Fair breath sounds bilaterally. CARDIOVASCULAR: S1, S2 normal. ABDOMEN: Soft, nontender, no megaly or masses noted. EXTREMITIES: No clubbing or cyanosis noted. NEUROLOGIC: Generalized weakness. Results/Medications Result Diagram: 12/20/1861212/20/1813 Results 24 hrs Laboratory Tests Test 12/20/18 06:13 White Blood Count 17.1 #H Red Blood Count 3.60 L Hemoglobin 11.2 L Hematocrit 35.1 L Mean Corpuscular Volume 97.5 Mean Corpuscular Hemoglobin 31.1 Mean Corpuscular Hemoglobin Concent 31.9 L Red Cell Distribution Width 19.0 H Platelet Count 31 #L Mean Platelet Volume Immature Granulocytes % 0.500 H Neutrophils % 94.8 H Lymphocytes % 1.7 L Monocytes % 2.9 Eosinophils % 0.0 Basophils % 0.1 Nucleated Red Blood Cells % 0.0 Immature Granulocytes # 0.080 H Neutrophils # 16.2 H Lymphocytes # 0.3 L Monocytes # 0.5 Eosinophils # 0.0 Basophils # 0.0 Nucleated Red Blood Cells # 0.0 Sodium Level 138 Potassium Level 4.5 Chloride Level 108 Carbon Dioxide Level 20 L Anion Gap 10 Blood Urea Nitrogen 80 H Creatinine 1.47 H Est Glomerular Filtrat Rate mL/min 37 L Glucose Level 179 Calcium Level 6.6 L Home Meds Reported Medications Folic Acid* (Folic Acid*) 1 Mg Tablet, 1 MG PO DAILY, TAB 08/10/18 Amiodarone Hcl* (Amiodarone Hcl*) 200 Mg Tablet, 200 MG PO BID, #60 TAB 08/10/18 Pantoprazole* (Protonix*) 40 Mg Tablet.dr, 40 MG PO DAILY, TAB 08/10/18 Multivit/Ca Carb/B Cmplx/Fa* (Iram-Xiomara*) 1 Tab Tab, 1 TAB PO DAILY, TAB 08/10/18 Levothyroxine Sodium* (Levoxyl*) 75 Mcg Tablet, 75 MCG PO BEFORE BREAKFAST, #30 TAB 08/10/18 Medications Current Medications Ondansetron HCl (Zofran Inj) 4 mg Q6H PRN IV NAUSEA AND/OR VOMITING Last administered on 12/11/18at 06:53; Admin Dose 4 MG; Start 11/21/18 at 05:30 Albuterol/ Ipratropium (Duoneb) 3 ml Q2H RESP THERAPY PRN NEB SHORTNESS OF BREATH; Start 11/21/18 at 05:30 Caspofungin 50 mg/ Sodium Chloride 250 ml @ 250 mls/hr Q24H IVPB Last administered on 12/20/18at 15:32; Admin Dose 250 MLS/HR; Start 11/24/18 at 13:00 Miscellaneous Information 1 ea NOTE XX ; Start 11/23/18 at 13:30 Glucose (Glutose) 15 gm Q15M PRN PO DECREASED GLUCOSE; Start 11/23/18 at 13:30 Glucose (Glutose) 22.5 gm Q15M PRN PO DECREASED GLUCOSE; Start 11/23/18 at 13:30 Dextrose (D50w Syringe) 25 ml Q15M PRN IV DECREASED GLUCOSE Last administered on 12/09/18at 13:59; Admin Dose 25 ML; Start 11/23/18 at 13:30 Dextrose (D50w Syringe) 50 ml Q15M PRN IV DECREASED GLUCOSE Last administered on 12/10/18at 13:14; Admin Dose 50 ML; Start 11/23/18 at 13:30 Glucagon (Glucagen) 1 mg Q15M PRN IM DECREASED GLUCOSE; Start 11/23/18 at 13:30 Glucose (Glutose) 15 gm Q15M PRN BUCCAL DECREASED GLUCOSE; Start 11/23/18 at 13:30 Alteplase, Recombinant (Cathflo (Activase)) 2 mg MAY REPEAT X1 PRN CATHETER IF CATHETER REMAINS OCCULUDED Last administered on 12/02/18 15:47; Admin Dose 2 MG; Start 11/26/18 at 03:00 Albumin Human 100 ml @ 100 mls/hr DURING DIALYSIS PRN IV HYPOTENSION DURING HD Last administered on 12/20/18 11:55; Admin Dose 100 MLS/HR; Start 11/26/18 at 14:00 Levothyroxine Sodium (Synthroid) 75 mcg BEFORE BREAKFAST NGT Last administered on 12/20/18 05:18; Admin Dose 75 MCG; Start 11/29/18 at 07:00 Sodium Chloride 154 meq/Dextrose 1,038.5 ml @ 40 mls/hr Q24H IV Last administered on 12/20/18 01:33; Admin Dose 40 MLS/HR; Start 11/30/18 at 10:00 Collagenase (Santyl) 1 applic DAILY TOP Last administered on 12/20/18 10:09; Admin Dose 1 APPLIC; Start 12/01/18 at 16:30 Amiodarone HCl (Cordarone) 200 mg BID NGT Last administered on 12/20/18 15:35; Admin Dose 200 MG; Start 12/03/18 at 21:00 Acetaminophen (Tylenol Liquid) 650 mg Q6H PRN NGT PAIN LEVEL 1-3 OR FEVER; Start 12/06/18 at 09:00 Famotidine (Pepcid) 20 mg DAILY NGT Last administered on 12/20/18 08:59; Admin Dose 20 MG; Start 12/06/18 at 09:00 Folic Acid (Folic Acid) 1 mg DAILY NGT Last administered on 12/20/18 08:59; Admin Dose 1 MG; Start 12/06/18 at 09:00 Midodrine (Proamatine) 5 mg TID@09,13,17 GTB Last administered on 12/20/18 11:57; Admin Dose 5 MG; Start 12/07/18 at 09:00 Epoetin Margarito-epbx (RETACRIT(esrd)) 10,000 unit MoWeFr@1700 SC Last administered on 12/18/18 17:11; Admin Dose 10,000 UNIT; Start 12/11/18 at 17:00 Eye Lubricant (Artificial Tears Oph) 2 drop QID BOTH EYES Last administered on 12/20/18 11:57; Admin Dose 2 DROP; Start 12/10/18 at 09:00 Methylprednisolone Sodium Succinate (Solu-Medrol) 40 mg Q6 IV Last administered on 12/20/18 11:57; Admin Dose 40 MG; Start 12/10/18 at 18:00 Ertapenem 0.5 gm/ Sodium Chloride 100 ml @ 200 mls/hr Q24H IVPB Last administered on 12/19/18 17:20; Admin Dose 200 MLS/HR; Start 12/15/18 at 18:00 Lorazepam (Ativan) 1 mg Q4H PRN IV AGITATION/ANXIETY Last administered on 12/19/18 05:41; Admin Dose 1 MG; Start 12/15/18 at 11:00 Morphine Sulfate (morphine) 1 mg Q4H PRN IV SEVERE PAIN LEVEL 7-10 Last administered on 12/19/18 03:37; Admin Dose 1 MG; Start 12/15/18 at 11:00 Metoclopramide HCl (Reglan) 5 mg Q8 IV Last administered on 12/20/18 15:31; Admin Dose 5 MG; Start 12/17/18 at 12:00 Assessment/Plan Assessment/Plan (Daily) IMP: 1. Ventilator-dependent respiratory failure, status post tracheostomy. 2. Gram-negative sepsis. 3. End-stage renal disease on hemodialysis. 4. Cardiomyopathy. 5. Thrombocytopenia. 6. Anemia. 7. Status post septic shock. RECS: 1. Continue vent support--> may not tolerate SIMV/.PS trial based on findings on brief trial 2. Continue antibiotics as per ID 3. Hemodialysis per nephrology SHERON CAPUTO MD December 20, 2018 16:03
[2018-12-20] MEDS: ERTAPENEM SODIUM 0.5 GM in SOD CHLORIDE 0.9% 100 ML IVPB SCH (17:23)
[2018-12-21] VITALS (21 sets, daily range): BP systolic 141–156; BP diastolic 68–75; PULSE 59–70; RESP 12–27
[2018-12-21] MEDS: METHYLPREDNISOLONE 40 MG INJ IV SCH ×5 (00:56→23:13)
[2018-12-21] MEDS: SODIUM CHLORIDE 23.4% 154 MEQ in DEXTROSE 10% 1,000 ML IV SCH (03:38)
[2018-12-21] MEDS: LEVOTHYROXINE 75 MCG TAB NGT SCH (06:02)
[2018-12-21] MEDS: METOCLOPRAMIDE 10 MG INJ IV SCH ×3 (06:02→21:10)
--- NOTE | 2018-12-21 08:09 | PN ---
DATE: 12/21/2018 SUBJECTIVE: The patient is in serious but stable condition. No other events noted. No hemoptysis, hematemesis or hematochezia. OBJECTIVE: VITAL SIGNS: Blood pressure is 150/72, respirations 12, pulse 64, temperature 96.7. HEENT: Head is normocephalic. NECK: Supple. HEART: Regular rate. LUNGS: Show diminished breath sounds at base. ABDOMEN: Soft, nontender to palpation. Positive PEG. EXTREMITIES: Negative for clubbing, cyanosis. Positive edema, improving. DERMATOLOGIC: No rashes. MUSCULOSKELETAL: No joint effusion. NEUROLOGIC: No change in exam. MEDICATIONS: Have been reviewed. LABORATORY DATA: Has been reviewed. ASSESSMENT AND PLAN: 1. End-stage renal disease. The patient had hemodialysis yesterday and tolerated well. Plan for di alysis tomorrow. 2. Volume overload, anasarca. Continue ultrafiltration dialysis. 3. Sepsis, status post shock. The patient is completing antibiotic course. 4. Anemia. Continue to monitor hemoglobin and hematocrit levels. Continue Epogen. 5. Mineral bone disorder. Monitor calcium and phosphorus levels. 6. Ventilator-dependent respiratory failure. Vent settings and ABG have been reviewed. Continue to monitor. Continue weaning per pulmonary. 7. Encephalopathy, etiology is toxic metabolic. Continue to monitor. 8. Hypothyroidism. Continue Synthroid. 9. Dysphagia. Continue tube feeding. 10. Arrhythmia. Continue amiodarone. 11. Thrombocytopenia. Continue to monitor. 12. Lower extremity wounds. Continue wound care. 13. Hypertension. Blood pressures remain elevated, consider de-escalation of Midodrine. 14. Status post cardiopulmonary arrest. Dictated By: SARIKA CRAIG/NTS Conf#: [id number] DID#: [id number] CC: MANDY BATES MD;*EndCC*
[2018-12-21] MEDS: MIDODRINE 5 MG TAB GTB SCH ×3 (09:00→17:00)
[2018-12-21] MEDS: COLLAGENASE 5 GM (UD JAR) TOP SCH (09:32)
[2018-12-21] MEDS: ARTIFICIAL TEARS 15 ML OPH BOTH EYES SCH ×4 (09:33→20:19)
[2018-12-21] MEDS: FAMOTIDINE 20 MG TAB NGT SCH (09:33)
[2018-12-21] MEDS: FOLIC ACID 1 MG TAB NGT SCH (09:33)
[2018-12-21] MEDS: AMIODARONE 200 MG TAB NGT SCH ×2 (09:34→20:19)
[2018-12-21] MEDS: BALSAM PERU/CASTOR OIL 60 GM TUBE TOP SCH ×2 (09:41→20:20)
--- NOTE | 2018-12-21 09:52 | PN ---
Date/Time of Note Date/Time of Note DATE: 12/21/18 TIME: 09:50 Assessment/Plan Lines/Catheters IV Catheter Type (from Nrsg): Mid Line Moon in Place (from Nrsg): No Assessment/Plan Assessment/Plan Status post tracheostomy We will continue vent support [facility] Pulmonary toilet Subjective 24 Hr Interval Summary Constitutional: improved Pain Control: mild Exam/Review of Systems Vital Signs Vitals Vital Signs Date Temp Pulse Resp B/P (MAP) Pulse Ox O2 O2 Flow FiO2 Time Delivery Rate 12/21/18 97.3 64 17 156/72 100 07:48 (100) 12/21/18 30 07:30 12/20/18 Mechanical 15:26 Ventilator Intake and Output 12/20/18 12/20/18 12/21/18 1515:00 23:00 07:00 IntakeIntake Total 910 ml 1238.5 ml OutputOutput Total 1300 ml BalanceBalance -390 ml 1238.5 ml Exam Eyes: nl conjunctiva, EOMI, nl lids, nl sclera ENMT: nl external ears & nose, nl lips & teeth, nl nasal mucosa & septum, mucosa pink and moist Neck: supple, non-tender Respiratory: clear to auscultation, normal air movement Cardiovascular: regular rate and rhythm, nl pulses Gastrointestinal: soft, nl liver, spleen, non-tender Musculoskeletal: nl extremities to inspection, nl gait and stance Extremities: normal pulses Results Result Diagram: 12/20/1861212/20/18612 TAE PAN MD December 21, 2018 09:52
--- NOTE | 2018-12-21 13:45 | PN ---
Date/Time of Note Date/Time of Note DATE: 12/21/18 TIME: 13:44 Assessment/Plan VTE Prophylaxis Risk score (from Nsg)>0 risk: 10 SCD applied (from Nsg): Yes Pharmacological prophylaxis: heparin Lines/Catheters IV Catheter Type (from Nrsg): Mid Line Urinary Cath still in place: No Assessment/Plan Hospital Course Intubated, apears comfortable, interactive Chronically ill appearing Lungs clear Distended belly, firm masses, G tube in place Mild peripheral edema present LUE wound wrapped 58 yo female with ESRD, cirrohsihs, DMII presents with hypoglycemia, leg infection. Suffered cardiac and respiratory arrest, now intubated Acute respiratory failure: - MV per pulm via trach Sepsis: - Antibiotics per ID Hypoglycemia - Continue IV dextrose and tube feeds Left lower extremity wound - Antibiotics per ID -Venous study was negative for DVT A Fib: - Amiodarone ESRD with fluid overload - HD per nephrology Hypothyroidism: Continue Synthroid History of pacemaker: No acute issue Prophylaxis: SCDs DC planning: Poor prognosis. Continue goals of care discussions with family. So far unwilling to consider withdrawal of care. Very upset to be asked about it and don't want us to bring it up again Result Diagram: 12/20/18 0613 12/20/18 0613 Subjective 24 Hr Interval Summary Free Text/Dictation Stable on MV s/p trach Exam/Review of Systems Exam Vitals Vital Signs Date Temp Pulse Resp B/P (MAP) Pulse Ox O2 O2 Flow FiO2 Time Delivery Rate 12/21/18 98.6 64 16 150/75 99 11:41 (100) 12/21/18 30 11:20 12/20/18 Mechanical 15:26 Ventilator Intake and Output 12/20/18 12/20/18 12/21/18 1515:00 23:00 07:00 IntakeIntake Total 910 ml 1238.5 ml OutputOutput Total 1300 ml BalanceBalance -390 ml 1238.5 ml Medications Medication Current Medications Ondansetron HCl (Zofran Inj) 4 mg Q6H PRN IV NAUSEA AND/OR VOMITING Last administered on 12/11/18at 06:53; Admin Dose 4 MG; Start 11/21/18 at 05:30 Albuterol/ Ipratropium (Duoneb) 3 ml Q2H RESP THERAPY PRN NEB SHORTNESS OF BREATH; Start 11/21/18 at 05:30 Caspofungin 50 mg/ Sodium Chloride 250 ml @ 250 mls/hr Q24H IVPB Last administered on 12/20/18 15:32; Admin Dose 250 MLS/HR; Start 11/24/18 at 13:00 Miscellaneous Information 1 ea NOTE XX ; Start 11/23/18 at 13:30 Glucose (Glutose) 15 gm Q15M PRN PO DECREASED GLUCOSE; Start 11/23/18 at 13:30 Glucose (Glutose) 22.5 gm Q15M PRN PO DECREASED GLUCOSE; Start 11/23/18 at 13:30 Dextrose (D50w Syringe) 25 ml Q15M PRN IV DECREASED GLUCOSE Last administered on 12/09/18 13:59; Admin Dose 25 ML; Start 11/23/18 at 13:30 Dextrose (D50w Syringe) 50 ml Q15M PRN IV DECREASED GLUCOSE Last administered on 12/10/18 13:14; Admin Dose 50 ML; Start 11/23/18 at 13:30 Glucagon (Glucagen) 1 mg Q15M PRN IM DECREASED GLUCOSE; Start 11/23/18 at 13:30 Glucose (Glutose) 15 gm Q15M PRN BUCCAL DECREASED GLUCOSE; Start 11/23/18 at 13:30 Alteplase, Recombinant (Cathflo (Activase)) 2 mg MAY REPEAT X1 PRN CATHETER IF CATHETER REMAINS OCCULUDED Last administered on 12/02/18 15:47; Admin Dose 2 MG; Start 11/26/18 at 03:00 Albumin Human 100 ml @ 100 mls/hr DURING DIALYSIS PRN IV HYPOTENSION DURING HD Last administered on 12/20/18 11:55; Admin Dose 100 MLS/HR; Start 11/26/18 at 14:00 Levothyroxine Sodium (Synthroid) 75 mcg BEFORE BREAKFAST NGT Last administered on 12/21/18 06:02; Admin Dose 75 MCG; Start 11/29/18 at 07:00 Sodium Chloride 154 meq/Dextrose 1,038.5 ml @ 40 mls/hr Q24H IV Last administered on 12/21/18 03:38; Admin Dose 40 MLS/HR; Start 11/30/18 at 10:00 Collagenase (Santyl) 1 applic DAILY TOP Last administered on 12/21/18 09:32; Admin Dose 1 APPLIC; Start 12/01/18 at 16:30 Amiodarone HCl (Cordarone) 200 mg BID NGT Last administered on 12/21/18 09:34; Admin Dose 200 MG; Start 12/03/18 at 21:00 Acetaminophen (Tylenol Liquid) 650 mg Q6H PRN NGT PAIN LEVEL 1-3 OR FEVER; Start 12/06/18 at 09:00 Famotidine (Pepcid) 20 mg DAILY NGT Last administered on 12/21/18 09:33; Admin Dose 20 MG; Start 12/06/18 at 09:00 Folic Acid (Folic Acid) 1 mg DAILY NGT Last administered on 12/21/18 09:33; Admin Dose 1 MG; Start 12/06/18 at 09:00 Midodrine (Proamatine) 5 mg TID@,13,17 GTB Last administered on 12/20/18 11:57; Admin Dose 5 MG; Start 12/07/18 at 09:00 Epoetin Margarito-epbx (RETACRIT(esrd)) 10,000 unit MoWeFr@1700 SC Last administered on 12/18/18 17:11; Admin Dose 10,000 UNIT; Start 12/11/18 at 17:00 Eye Lubricant (Artificial Tears Oph) 2 drop QID BOTH EYES Last administered on 12/21/18 13:01; Admin Dose 2 DROP; Start 12/10/18 at 09:00 Methylprednisolone Sodium Succinate (Solu-Medrol) 40 mg Q6 IV Last administered on 12/21/18 13:00; Admin Dose 40 MG; Start 12/10/18 at 18:00 Ertapenem 0.5 gm/ Sodium Chloride 100 ml @ 200 mls/hr Q24H IVPB Last administered on 12/20/18 17:23; Admin Dose 200 MLS/HR; Start 12/15/18 at 18:00 Lorazepam (Ativan) 1 mg Q4H PRN IV AGITATION/ANXIETY Last administered on 12/19/18 05:41; Admin Dose 1 MG; Start 12/15/18 at 11:00 Morphine Sulfate (morphine) 1 mg Q4H PRN IV SEVERE PAIN LEVEL 7-10 Last administered on 12/19/18 03:37; Admin Dose 1 MG; Start 12/15/18 at 11:00 Metoclopramide HCl (Reglan) 5 mg Q8 IV Last administered on 12/21/18at 06:02; Admin Dose 5 MG; Start 12/17/18 at 12:00 JOSLYN LANDRUM MD December 21, 2018 13:45
[2018-12-21] MEDS: CASPOFUNGIN 50 MG in SOD CHLORIDE 0.9% 250 ML IVPB SCH (14:28)
[2018-12-21] MEDS: (Nursing Note) XX SCH ×2 (15:00→19:47)
--- NOTE | 2018-12-21 15:07 | CONS ---
Assessment/Plan Assessment/Plan Hospital Course (Demo Recall) awake, looks comfortable, no fevers, no diarrhea Antimicrobials: Cancidas, Invanz Microbiology: Blood culture on admission grew Klebsiella ESBL, repeat blood cultures negative, left thigh wound culture grew Klebsiella ESBL and Leah albicans Allergy: Zosyn, vancomycin Indwelling: Right upper thigh Davie catheter, left femoral triple-lumen catheter, trach Physical examination: This is a chronically ill-appearing cachectic middle-aged woman who is laying comfortably in bed. Head atraumatic normocephalic. Neck is supple. Chest rise symmetrical. Breath sounds diminished bases. Heart: S1-S2, irreg. Abdomen distended. Bowel sounds hypoactive. Extremities with bilateral edema, cyanotic, multiple ecchymotic areas and bruises, left upper thigh dressing present Assessment: 1. Sepsis 2. Acute hypoxemic respiratory failure secondary to CHF exacerbation/probable pneumonia 3. Klebsiella ESBL bacteremia likely 2 to #4 4. 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 End-stage renal disease, hemodialysis dependent 6. Atrial fibrillation/PPM 7. Unstageable sacral decubitus 8. History of peritoneal dialysis with peritoneal dialysis still in place 9. Ascites status post paracentesis 10. Failure to thrive 11. Thrombocytopenia 12. S/p B mastoiditis and acute sinusitis Plan: Remains unchanged, continue antibiotics indefinitely for infected graft, prognosis poor Consultation Date/Type/Reason Admit Date/Time Nov 21, 2018 at 04:53 Initial Consult Date Type of Consult id Requesting Provider: RIKA STOCK Date/Time of Note DATE: 12/21/18 TIME: 15:07 Exam/Review of Systems Exam Vitals Vital Signs Date Temp Pulse Resp B/P (MAP) Pulse Ox O2 O2 Flow FiO2 Time Delivery Rate 12/21/18 72 22 100 30 13:15 12/21/18 98.6 150/75 11:41 (100) 12/20/18 Mechanical 15:26 Ventilator Intake and Output 12/20/18 12/20/18 12/21/18 1515:00 23:00 07:00 IntakeIntake Total 910 ml 1238.5 ml OutputOutput Total 1300 ml BalanceBalance -390 ml 1238.5 ml Results Result Diagram: 12/20/18 0613 12/20/18 0613 Medications Medication Current Medications Ondansetron HCl (Zofran Inj) 4 mg Q6H PRN IV NAUSEA AND/OR VOMITING Last administered on 12/11/18 06:53; Admin Dose 4 MG; Start 11/21/18 at 05:30 Albuterol/ Ipratropium (Duoneb) 3 ml Q2H RESP THERAPY PRN NEB SHORTNESS OF BREATH; Start 11/21/18 at 05:30 Caspofungin 50 mg/ Sodium Chloride 250 ml @ 250 mls/hr Q24H IVPB Last ad ministered on 12/21/18 14:28; Admin Dose 250 MLS/HR; Start 11/24/18 at 13:00 Miscellaneous Information 1 ea NOTE XX ; Start 11/23/18 at 13:30 Glucose (Glutose) 15 gm Q15M PRN PO DECREASED GLUCOSE; Start 11/23/18 at 13:30 Glucose (Glutose) 22.5 gm Q15M PRN PO DECREASED GLUCOSE; Start 11/23/18 at 1 3:30 Dextrose (D50w Syringe) 25 ml Q15M PRN IV DECREASED GLUCOSE Last administered on 12/09/18 13:59; Admin Dose 25 ML; Start 11/23/18 at 13:30 Dextrose (D50w Syringe) 50 ml Q15M PRN IV DECREASED GLUCOSE Last administered on 12/10/18 13:14; Admin Dose 50 ML; Start 11/23/18 at 13:30 Glucagon (Glucagen) 1 mg Q15M PRN IM DECREASED GLUCOSE; Start 11/23/18 at 13:30 Glucose (Glutose) 15 gm Q15M PRN BUCCAL DECREASED GLUCOSE; Start 11/23/18 at 13:30 Alteplase, Recombinant (Cathflo (Activase)) 2 mg MAY REPEAT X1 PRN CATHETER IF CATHETER REMAINS OCCULUDED Last administered on 12/02/18 15:47; Admin Dose 2 MG; Start 11/26/18 at 03:00 Albumin Human 100 ml @ 100 mls/hr DURING DIALYSIS PRN IV HYPOTENSION DURING HD Last administered on 12/20/18 11:55; Admin Dose 100 MLS/HR; Start 11/26/18 at 14:00 Levothyroxine Sodium (Synthroid) 75 mcg BEFORE BREAKFAST NGT Last administered on 12/21/18 06:02; Admin Dose 75 MCG; Start 11/29/18 at 07:00 Sodium Chloride 154 meq/Dextrose 1,038.5 ml @ 40 mls/hr Q24H IV Last administered on 12/21/18 03:38; Admin Dose 40 MLS/HR; Start 11/30/18 at 10:00 Collagenase (Santyl) 1 applic DAILY TOP Last administered on 12/21/18 09:32; Admin Dose 1 APPLIC; Start 12/01/18 at 16:30 Amiodarone HCl (Cordarone) 200 mg BID NGT Last administered on 12/21/18 09:34; Admin Dose 200 MG; Start 12/03/18 at 21:00 Acetaminophen (Tylenol Liquid) 650 mg Q6H PRN NGT PAIN LEVEL 1-3 OR FEVER; Start 12/06/18 at 09:00 Famotidine (Pepcid) 20 mg DAILY NGT Last administered on 12/21/18 09:33; Admin Dose 20 MG; Start 12/06/18 at 09:00 Folic Acid (Folic Acid) 1 mg DAILY NGT Last administered on 12/21/18 09:33; Admin Dose 1 MG; Start 12/06/18 at 09:00 Midodrine (Proamatine) 5 mg TID@,,17 GTB Last administered on 12/20/18 11:57; Admin Dose 5 MG; Start 12/07/18 at 09:00 Epoetin Margarito-epbx (RETACRIT(esrd)) 10,000 unit MoWeFr@1700 SC Last administered on 12/18/18 17:11; Admin Dose 10,000 UNIT; Start 12/11/18 at 17:00 Eye Lubricant (Artificial Tears Oph) 2 drop QID BOTH EYES Last administered on 12/21/18 13:01; Admin Dose 2 DROP; Start 12/10/18 at 09:00 Methylprednisolone Sodium Succinate (Solu-Medrol) 40 mg Q6 IV Last administered on 12/21/18 13:00; Admin Dose 40 MG; Start 12/10/18 at 18:00 Ertapenem 0.5 gm/ Sodium Chloride 100 ml @ 200 mls/hr Q24H IVPB Last administered on 12/20/18 17:23; Admin Dose 200 MLS/HR; Start 12/15/18 at 18:00 Lorazepam (Ativan) 1 mg Q4H PRN IV AGITATION/ANXIETY Last administered on 12/19/18at 05:41; Admin Dose 1 MG; Start 12/15/18 at 11:00 Morphine Sulfate (morphine) 1 mg Q4H PRN IV SEVERE PAIN LEVEL 7-10 Last administered on 12/19/18at 03:37; Admin Dose 1 MG; Start 12/15/18 at 11:00 Metoclopramide HCl (Reglan) 5 mg Q8 IV Last administered on 12/21/18at 14:29; Admin Dose 5 MG; Start 12/17/18 at 12:00 Miscellaneous Information 1 ea BID XX ; Start 12/21/18 at 15:00 KELSIE ELY NP December 21, 2018 15:07
--- NOTE | 2018-12-21 16:06 | CONS ---
Consult Date/Type/Reason Admit Date/Time Nov 21, 2018 at 04:53 Initial Consult Date Type of Consult Pulmonary Requesting Provider: RIKA STOCK Date/Time of Note DATE: 12/21/18 TIME: 16:05 Subjective Appears comfortable no respiratory distress Objective Vital Signs Date Temp Pulse Resp B/P (MAP) Pulse Ox O2 O2 Flow FiO2 Time Delivery Rate 12/21/18 98.8 60 16 141/68 98 16:03 (92) 12/21/18 30 15:40 12/20/18 Mechanical 15:26 Ventilator Intake and Output 12/20/18 12/20/18 12/21/18 1515:00 23:00 07:00 IntakeIntake Total 910 ml 1238.5 ml OutputOutput Total 1300 ml BalanceBalance -390 ml 1238.5 ml Exam GENERAL: Thin cachectic lady on mechanical ventilation via tracheostomy VITAL SIGNS: per chart NECK: Supple. No JVD or lymphadenopathy. CARDIAC EXAM: S1, S2. No added sounds or murmurs. CHEST: clear bilaterally, No added sounds, rales or wheezes ABDOMEN: Soft, nontender. No guarding or rebound. EXTREMITIES: No cyanosis, clubbing or edema. NEUROLOGIC: Generalized weakness. No focal deficits. Vent Setting Ventilator Support Mode: AC Fraction of Inspired Oxygen pe: 30 Positive End Expiratory Pressu: 5.0 Results/Medications Result Diagram: 12/20/1861212/20/18 0613 Medications Current Medications Ondansetron HCl (Zofran Inj) 4 mg Q6H PRN IV NAUSEA AND/OR VOMITING Last administered on 12/11/18at 06:53; Admin Dose 4 MG; Start 11/21/18 at 05:30 Albuterol/ Ipratropium (Duoneb) 3 ml Q2H RESP THERAPY PRN NEB SHORTNESS OF BREATH; Start 11/21/18 at 05:30 Caspofungin 50 mg/ Sodium Chloride 250 ml @ 250 mls/hr Q24H IVPB Last administered on 12/21/18at 14:28; Admin Dose 250 MLS/HR; Start 11/24/18 at 13:00 Miscellaneous Information 1 ea NOTE XX ; Start 11/23/18 at 13:30 Glucose (Glutose) 15 gm Q15M PRN PO DECREASED GLUCOSE; Start 11/23/18 at 13:30 Glucose (Glutose) 22.5 gm Q15M PRN PO DECREASED GLUCOSE; Start 11/23/18 at 13:30 Dextrose (D50w Syringe) 25 ml Q15M PRN IV DECREASED GLUCOSE Last administered on 12/09/18 13:59; Admin Dose 25 ML; Start 11/23/18 at 13:30 Dextrose (D50w Syringe) 50 ml Q15M PRN IV DECREASED GLUCOSE Last administered on 12/10/18 13:14; Admin Dose 50 ML; Start 11/23/18 at 13:30 Glucagon (Glucagen) 1 mg Q15M PRN IM DECREASED GLUCOSE; Start 11/23/18 at 13:30 Glucose (Glutose) 15 gm Q15M PRN BUCCAL DECREASED GLUCOSE; Start 11/23/18 at 13:30 Alteplase, Recombinant (Cathflo (Activase)) 2 mg MAY REPEAT X1 PRN CATHETER IF CATHETER REMAINS OCCULUDED Last administered on 12/02/18 15:47; Admin Dose 2 MG; Start 11/26/18 at 03:00 Albumin Human 100 ml @ 100 mls/hr DURING DIALYSIS PRN IV HYPOTENSION DURING HD Last administered on 12/20/18 11:55; Admin Dose 100 MLS/HR; Start 11/26/18 at 14:00 Levothyroxine Sodium (Synthroid) 75 mcg BEFORE BREAKFAST NGT Last administered on 12/21/18 06:02; Admin Dose 75 MCG; Start 11/29/18 at 07:00 Sodium Chloride 154 meq/Dextrose 1,038.5 ml @ 40 mls/hr Q24H IV Last administered on 12/21/18 03:38; Admin Dose 40 MLS/HR; Start 11/30/18 at 10:00 Collagenase (Santyl) 1 applic DAILY TOP Last administered on 12/21/18 09:32; Admin Dose 1 APPLIC; Start 12/01/18 at 16:30 Amiodarone HCl (Cordarone) 200 mg BID NGT Last administered on 12/21/18 09:34; Admin Dose 200 MG; Start 12/03/18 at 21:00 Acetaminophen (Tylenol Liquid) 650 mg Q6H PRN NGT PAIN LEVEL 1-3 OR FEVER; Start 12/06/18 at 09:00 Famotidine (Pepcid) 20 mg DAILY NGT Last administered on 12/21/18 09:33; Admin Dose 20 MG; Start 12/06/18 at 09:00 Folic Acid (Folic Acid) 1 mg DAILY NGT Last administered on 12/21/18 09:33; Admin Dose 1 MG; Start 12/06/18 at 09:00 Midodrine (Proamatine) 5 mg TID@09,13,17 GTB Last administered on 12/20/18 11:57; Admin Dose 5 MG; Start 12/07/18 at 09:00 Epoetin Margarito-epbx (RETACRIT(esrd)) 10,000 unit MoWeFr@1700 SC Last administered on 12/18/18 17:11; Admin Dose 10,000 UNIT; Start 12/11/18 at 17:00 Eye Lubricant (Artificial Tears Oph) 2 drop QID BOTH EYES Last administered on 12/21/18 13:01; Admin Dose 2 DROP; Start 12/10/18 at 09:00 Methylprednisolone Sodium Succinate (Solu-Medrol) 40 mg Q6 IV Last administered on 12/21/18 13:00; Admin Dose 40 MG; Start 12/10/18 at 18:00 Ertapenem 0.5 gm/ Sodium Chloride 100 ml @ 200 mls/hr Q24H IVPB Last administered on 12/20/18 17:23; Admin Dose 200 MLS/HR; Start 12/15/18 at 18:00 Lorazepam (Ativan) 1 mg Q4H PRN IV AGITATION/ANXIETY Last administered on 12/09 05:41; Admin Dose 1 MG; Start 12/15/18 at 11:00 Morphine Sulfate (morphine) 1 mg Q4H PRN IV SEVERE PAIN LEVEL 7-10 Last administered on 12/19/18 03:37; Admin Dose 1 MG; Start 12/15/18 at 11:00 Metoclopramide HCl (Reglan) 5 mg Q8 IV Last administered on 12/21/18 14:29; Admin Dose 5 MG; Start 12/17/18 at 12:00 Miscellaneous Information 1 ea BID XX ; Start 12/21/18 at 15:00 Assessment/Plan Hospital Course (Demo Recall) IMP: 1. Ventilator-dependent respiratory failure, status post tracheostomy. 2. Gram-negative sepsis. 3. End-stage renal disease on hemodialysis. 4. Cardiomyopathy. 5. Thrombocytopenia. 6. Anemia. 7. Status post septic shock. RECS: 1. Continue vent support--> may not tolerate SIMV/.PS trial based on findings on brief trial 2. Continue antibiotics as per ID 3. Hemodialysis per nephrology NINA MORRIS MD, [facility] December 21, 2018 16:06
[2018-12-21] MEDS: EPOETIN ALFA-EPBX (ESRD) 10,000 UNIT/ML VIAL SC SCH (17:00)
[2018-12-21] MEDS: ERTAPENEM SODIUM 0.5 GM in SOD CHLORIDE 0.9% 100 ML IVPB SCH (18:49)
[2018-12-21] MEDS: ACETAMINOPHEN 650MG/20.3ML CUP NGT PRN (20:18)
[2018-12-22] VITALS (36 sets, daily range): BP systolic 66–143; BP diastolic 45–71; PULSE 58–100; RESP 18–21
[2018-12-22] MEDS: SODIUM CHLORIDE 23.4% 154 MEQ in DEXTROSE 10% 1,000 ML IV SCH (05:07)
[2018-12-22] MEDS: METHYLPREDNISOLONE 40 MG INJ IV SCH ×4 (05:07→23:18)
[2018-12-22] MEDS: METOCLOPRAMIDE 10 MG INJ IV SCH ×3 (05:08→21:26)
[2018-12-22] MEDS: LEVOTHYROXINE 75 MCG TAB NGT SCH (06:04)
--- NOTE | 2018-12-22 08:29 | PN ---
DATE: 12/22/2018 SUBJECTIVE: The patient is stable. No events overnight. No fevers, chills, nausea or vomiting. OBJECTIVE: VITAL SIGNS: Blood pressure is 156/72, pulse 72, respirations 16, temperature 98.8. HEENT: Head is normocephalic. NECK: Supple. HEART: Regular rate. LUNGS: Show diminished breath sounds at the base. ABDOMEN: Soft, nontender to palpation without rebound or guarding. EXTREMITIES: Negative for clubbing, cyanosis, no edema. DERMATOLOGIC: No rashes. MUSCULOSKELETAL: No joint effusion. NEUROLOGIC: No change in exam. MEDICATIONS: Reviewed. LABORATORY DATA: Laboratory data from 12/20/2018 has been reviewed. ASSESSMENT AND PLAN: 1. End-stage renal disease. Plan is for dialysis today. We will dialyze 3 hours 3k bath, calcium 2 .5. 2. Volume overload, anasarca. Continue ultrafiltration with dialysis. 3. Sepsis, status post shock. The patient is completing antibiotic course. 4. Anemia. Monitor hemoglobin and hematocrit levels. We will give Epogen as needed. 5. Mineral bone disorder, monitor calcium and phosphorus levels. 6. Ventilator-dependent respiratory failure. Vent settings and ABG has been reviewed. Continue to monitor. Continue weaning per pulmonary. 7. Encephalopathy, etiology is toxic metabolic. Continue to monitor. 8. Hypothyroidism. Continue Synthroid. 9. Dysphagia. Continue tube feeding. 10. Arrhythmia. Continue amiodarone. 11. Thrombocytopenia. 12. Lower extremity wounds. Continue wound care. 13. Hypertension. Blood pressure levels are elevated. Consider deescalation midodrine. 14. Status post cardiopulmonary arrest. Dictated By: SARIKA JOINER DO NR/NTS Conf#: [id number] DID#: [id number] CC: LORRAINE JOHNSON MD; JOSLYN LANDRUM MD; MANDY BATES MD;*EndCC*
[2018-12-22] MEDS: (Nursing Note) XX SCH ×2 (09:00→21:00)
[2018-12-22] MEDS: COLLAGENASE 5 GM (UD JAR) TOP SCH (09:38)
[2018-12-22] MEDS: AMIODARONE 200 MG TAB NGT SCH ×2 (09:38→21:27)
[2018-12-22] MEDS: FAMOTIDINE 20 MG TAB NGT SCH (09:38)
[2018-12-22] MEDS: FOLIC ACID 1 MG TAB NGT SCH (09:38)
[2018-12-22] MEDS: ARTIFICIAL TEARS 15 ML OPH BOTH EYES SCH ×4 (09:39→21:27)
[2018-12-22] MEDS: MIDODRINE 5 MG TAB GTB SCH ×3 (09:39→17:00)
[2018-12-22] MEDS: BALSAM PERU/CASTOR OIL 60 GM TUBE TOP SCH ×2 (09:40→21:27)
[2018-12-22] MEDS: ALBUMIN HUMAN 25% 100 ML IV PRN (10:44)
[2018-12-22] MEDS: CASPOFUNGIN 50 MG in SOD CHLORIDE 0.9% 250 ML IVPB SCH (12:10)
--- NOTE | 2018-12-22 14:41 | PN ---
Date/Time of Note Date/Time of Note DATE: 12/22/18 TIME: 14:39 Assessment/Plan Lines/Catheters IV Catheter Type (from Nrsg): Mid Line Moon in Place (from Nrsg): No Assessment/Plan Assessment/Plan Status post tracheostomy Trach site clean No bleeding Continue vent support Pulmonary toilet Subjective 24 Hr Interval Summary Constitutional: improved Pain Control: mild Exam/Review of Systems Vital Signs Vitals Vital Signs Date Temp Pulse Resp B/P (MAP) Pulse Ox O2 O2 Flow FiO2 Time Delivery Rate 12/22/18 68 18 100 30 13:28 12/22/18 108/71 Mechanical 12:48 (83) Ventilator 12/22/18 97.5 00:00 Intake and Output 12/21/18 12/21/18 12/22/18 1515:00 23:00 07:00 IntakeIntake Total 780 ml OutputOutput Total 0 ml 0 ml BalanceBalance 0 ml 780 ml Exam Eyes: nl conjunctiva, EOMI, nl lids, nl sclera ENMT: nl external ears & nose, nl lips & teeth, nl nasal mucosa & septum, mucosa pink and moist Neck: supple, non-tender Respiratory: clear to auscultation, normal air movement Cardiovascular: regular rate and rhythm, nl pulses Results Result Diagram: 12/20/1861212/20/18612 TAE PAN MD December 22, 2018 14:41
--- NOTE | 2018-12-22 15:17 | CONS ---
Assessment/Plan Assessment/Plan Hospital Course (Demo Recall) 1130 In HD. awake, looks comfortable, no fevers, no diarrhea Antimicrobials: Cancidas, Invanz Microbiology: Blood culture on admission grew Klebsiella ESBL, repeat blood cultures negative, left thigh wound culture grew Klebsiella ESBL and Leah albicans Allergy: Zosyn, vancomycin Indwelling: Right upper thigh Davie catheter, left femoral triple-lumen catheter, trach Physical examination: This is a chronically ill-appearing cachectic middle-aged woman who is laying comfortably in bed. Head atraumatic normocephalic. Neck is supple. Chest rise symmetrical. Breath sounds diminished bases. Heart: S1-S2, irreg. Abdomen distended. Bowel sounds hypoactive. Extremities with bilateral edema, cyanotic, multiple ecchymotic areas and bruises, left upper thigh dressing present Assessment: 1. Sepsis 2. Acute hypoxemic respiratory failure secondary to CHF exacerbation/probable pneumonia 3. Klebsiella ESBL bacteremia likely 2 to #4 4. 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 End-stage renal disease, hemodialysis dependent 6. Atrial fibrillation/PPM 7. Unstageable sacral decubitus 8. History of peritoneal dialysis with peritoneal dialysis still in place 9. Ascites status post paracentesis 10. Failure to thrive 11. Thrombocytopenia 12. S/p B mastoiditis and acute sinusitis Plan: Remains unchanged, continue antibiotics indefinitely for infected graft, prognosis poor Consultation Date/Type/Reason Admit Date/Time Nov 21, 2018 at 04:53 Initial Consult Date Type of Consult id Requesting Provider: RIKA STOCK Date/Time of Note DATE: 12/22/18 TIME: 15:17 Exam/Review of Systems Exam Vitals Vital Signs Date Temp Pulse Resp B/P (MAP) Pulse Ox O2 O2 Flow FiO2 Time Delivery Rate 12/22/18 72 18 100 30 15:13 12/22/18 108/71 Mechanical 12:48 (83) Ventilator 12/22/18 97.5 00:00 Intake and Output 12/21/18 12/21/18 12/22/18 1414:59 22:59 06:59 IntakeIntake Total 780 ml OutputOutput Total 0 ml 0 ml BalanceBalance 0 ml 780 ml Results Result Diagram: 12/20/1861212/20/18612 Medications Medication Current Medications Ondansetron HCl (Zofran Inj) 4 mg Q6H PRN IV NAUSEA AND/OR VOMITING Last administered on 12/11/18 06:53; Admin Dose 4 MG; Start 11/21/18 at 05:30 Albuterol/ Ipratropium (Duoneb) 3 ml Q2H RESP THERAPY PRN NEB SHORTNESS OF BREATH; Start 11/21/18 at 05:30 Caspofungin 50 mg/ Sodium Chloride 250 ml @ 250 mls/hr Q24H IVPB Last admin istered on 12/22/18at 12:10; Admin Dose 250 MLS/HR; Start 11/24/18 at 13:00 Miscellaneous Information 1 ea NOTE XX ; Start 11/23/18 at 13:30 Glucose (Glutose) 15 gm Q15M PRN PO DECREASED GLUCOSE; Start 11/23/18 at 13:30 Glucose (Glutose) 22.5 gm Q15M PRN PO DECREASED GLUCOSE; Start 11/23/18 at 13:3 0 Dextrose (D50w Syringe) 25 ml Q15M PRN IV DECREASED GLUCOSE Last administered on 12/09/18at 13:59; Admin Dose 25 ML; Start 11/23/18 at 13:30 Dextrose (D50w Syringe) 50 ml Q15M PRN IV DECREASED GLUCOSE Last administered on 12/10/18 13:14; Admin Dose 50 ML; Start 11/23/18 at 13:30 Glucagon (Glucagen) 1 mg Q15M PRN IM DECREASED GLUCOSE; Start 11/23/18 at 13:30 Glucose (Glutose) 15 gm Q15M PRN BUCCAL DECREASED GLUCOSE; Start 11/23/18 at 13:30 Alteplase, Recombinant (Cathflo (Activase)) 2 mg MAY REPEAT X1 PRN CATHETER IF CATHETER REMAINS OCCULUDED Last administered on 12/02/18at 15:47; Admin Dose 2 MG; Start 11/26/18 at 03:00 Albumin Human 100 ml @ 100 mls/hr DURING DIALYSIS PRN IV HYPOTENSION DURING HD Last administered on 12/22/18 10:44; Admin Dose 100 MLS/HR; Start 11/26/18 at 14:00 Levothyroxine Sodium (Synthroid) 75 mcg BEFORE BREAKFAST NGT Last administered on 12/22/18 06:04; Admin Dose 75 MCG; Start 11/29/18 at 07:00 Sodium Chloride 154 meq/Dextrose 1,038.5 ml @ 40 mls/hr Q24H IV Last administered on 12/22/18 05:07; Admin Dose 40 MLS/HR; Start 11/30/18 at 10:00 Collagenase (Santyl) 1 applic DAILY TOP Last administered on 12/22/18 09:38; Admin Dose 1 APPLIC; Start 12/01/18 at 16:30 Amiodarone HCl (Cordarone) 200 mg BID NGT Last administered on 12/22/18 09:38; Admin Dose 200 MG; Start 12/03/18 at 21:00 Acetaminophen (Tylenol Liquid) 650 mg Q6H PRN NGT PAIN LEVEL 1-3 OR FEVER Last administered on 12/21/18 20:18; Admin Dose 650 MG; Start 12/06/18 at 09:00 Famotidine (Pepcid) 20 mg DAILY NGT Last administered on 12/22/18 09:38; Admin Dose 20 MG; Start 12/06/18 at 09:00 Folic Acid (Folic Acid) 1 mg DAILY NGT Last administered on 12/22/18 09:38; Admin Dose 1 MG; Start 12/06/18 at 09:00 Midodrine (Proamatine) 5 mg TID@,,17 GTB Last administered on 12/22/18 12:10; Admin Dose 5 MG; Start 12/07/18 at 09:00 Epoetin Margarito-epbx (RETACRIT(esrd)) 10,000 unit MoWeFr@1700 SC Last administered on 12/18/18 17:11; Admin Dose 10,000 UNIT; Start 12/11/18 at 17:00 Eye Lubricant (Artificial Tears Oph) 2 drop QID BOTH EYES Last administered on 12/22/18 12:10; Admin Dose 2 DROP; Start 12/10/18 at 09:00 Methylprednisolone Sodium Succinate (Solu-Medrol) 40 mg Q6 IV Last administered on 12/22/18 12:10; Admin Dose 40 MG; Start 12/10/18 at 18:00 Ertapenem 0.5 gm/ Sodium Chloride 100 ml @ 200 mls/hr Q24H IVPB Last administered on 12/21/18 18:49; Admin Dose 200 MLS/HR; Start 12/15/18 at 18:00 Lorazepam (Ativan) 1 mg Q4H PRN IV AGITATION/ANXIETY Last administered on 12/19/18at 05:41; Admin Dose 1 MG; Start 12/15/18 at 11:00 Morphine Sulfate (morphine) 1 mg Q4H PRN IV SEVERE PAIN LEVEL 7-10 Last administered on 12/19/18at 03:37; Admin Dose 1 MG; Start 12/15/18 at 11:00 Metoclopramide HCl (Reglan) 5 mg Q8 IV Last administered on 12/22/18at 14:35; Admin Dose 5 MG; Start 12/17/18 at 12:00 Miscellaneous Information 1 ea BID XX ; Start 12/21/18 at 15:00 KELSIE ELY NP December 22, 2018 15:17
--- NOTE | 2018-12-22 15:58 | PN ---
Date/Time of Note Date/Time of Note DATE: 12/22/18 TIME: 15:58 Assessment/Plan VTE Prophylaxis Risk score (from Nsg)>0 risk: 8 SCD applied (from Nsg): Yes Pharmacological prophylaxis: heparin Lines/Catheters IV Catheter Type (from Nrsg): Mid Line Urinary Cath still in place: No Assessment/Plan Hospital Course On MV via trach, apears comfortable, interactive Chronically ill appearing Lungs clear Distended belly, firm masses, G tube in place Mild peripheral edema present LUE wound wrapped 58 yo female with ESRD, cirrohsihs, DMII presents with hypoglycemia, leg infection. Suffered cardiac and respiratory arrest, now intubated Acute respiratory failure: - MV per pulm via trach Sepsis: - Antibiotics per ID Hypoglycemia - Continue IV dextrose and tube feeds Left lower extremity wound - Antibiotics per ID -Venous study was negative for DVT A Fib: - Amiodarone ESRD with fluid overload - HD per nephrology Hypothyroidism: Continue Synthroid History of pacemaker: No acute issue Prophylaxis: SCDs DC planning: Poor prognosis. Continue goals of care discussions with family. So far unwilling to consider withdrawal of care. Very upset to be asked about it and don't want us to bring it up again Result Diagram: 12/20/18 0613 12/20/18 0613 Subjective 24 Hr Interval Summary Free Text/Dictation Comfortable, no distress Stable on MV Exam/Review of Systems Exam Vitals Vital Signs Date Temp Pulse Resp B/P (MAP) Pulse Ox O2 O2 Flow FiO2 Time Delivery Rate 12/22/18 76 20 141/69 100 Mechanical 15:17 (93) Ventilator 12/22/18 30 15:13 12/22/18 97.5 00:00 Intake and Output 12/21/18 12/21/18 12/22/18 1414:59 22:59 06:59 IntakeIntake Total 780 ml OutputOutput Total 0 ml 0 ml BalanceBalance 0 ml 780 ml Medications Medication Current Medications Ondansetron HCl (Zofran Inj) 4 mg Q6H PRN IV NAUSEA AND/OR VOMITING Last administered on 12/11/18at 06:53; Admin Dose 4 MG; Start 11/21/18 at 05:30 Albuterol/ Ipratropium (Duoneb) 3 ml Q2H RESP THERAPY PRN NEB SHORTNESS OF BREATH; Start 11/21/18 at 05:30 Caspofungin 50 mg/ Sodium Chloride 250 ml @ 250 mls/hr Q24H IVPB Last administered on 12/22/18 12:10; Admin Dose 250 MLS/HR; Start 11/24/18 at 13:00 Miscellaneous Information 1 ea NOTE XX ; Start 11/23/18 at 13:30 Glucose (Glutose) 15 gm Q15M PRN PO DECREASED GLUCOSE; Start 11/23/18 at 13:30 Glucose (Glutose) 22.5 gm Q15M PRN PO DECREASED GLUCOSE; Start 11/23/18 at 13:30 Dextrose (D50w Syringe) 25 ml Q15M PRN IV DECREASED GLUCOSE Last administered on 12/09/18 13:59; Admin Dose 25 ML; Start 11/23/18 at 13:30 Dextrose (D50w Syringe) 50 ml Q15M PRN IV DECREASED GLUCOSE Last administered on 12/10/18 13:14; Admin Dose 50 ML; Start 11/23/18 at 13:30 Glucagon (Glucagen) 1 mg Q15M PRN IM DECREASED GLUCOSE; Start 11/23/18 at 13:30 Glucose (Glutose) 15 gm Q15M PRN BUCCAL DECREASED GLUCOSE; Start 11/23/18 at 13:30 Alteplase, Recombinant (Cathflo (Activase)) 2 mg MAY REPEAT X1 PRN CATHETER IF CATHETER REMAINS OCCULUDED Last administered on 12/02/18 15:47; Admin Dose 2 MG; Start 11/26/18 at 03:00 Albumin Human 100 ml @ 100 mls/hr DURING DIALYSIS PRN IV HYPOTENSION DURING HD Last administered on 12/22/18 10:44; Admin Dose 100 MLS/HR; Start 11/26/18 at 14:00 Levothyroxine Sodium (Synthroid) 75 mcg BEFORE BREAKFAST NGT Last administered on 12/22/18 06:04; Admin Dose 75 MCG; Start 11/29/18 at 07:00 Sodium Chloride 154 meq/Dextrose 1,038.5 ml @ 40 mls/hr Q24H IV Last administered on 12/22/18 05:07; Admin Dose 40 MLS/HR; Start 11/30/18 at 10:00 Collagenase (Santyl) 1 applic DAILY TOP Last administered on 12/22/18 09:38; A dmin Dose 1 APPLIC; Start 12/01/18 at 16:30 Amiodarone HCl (Cordarone) 200 mg BID NGT Last administered on 12/22/18 09:38; Admin Dose 200 MG; Start 12/03/18 at 21:00 Acetaminophen (Tylenol Liquid) 650 mg Q6H PRN NGT PAIN LEVEL 1-3 OR FEVER Last administered on 12/21/18 20:18; Admin Dose 650 MG; Start 12/06/18 at 09:00 Famotidine (Pepcid) 20 mg DAILY NGT Last administered on 12/22/18 09:38; Admin Dose 20 MG; Start 12/06/18 at 09:00 Folic Acid (Folic Acid) 1 mg DAILY NGT Last administered on 12/22/18 09:38; Admin Dose 1 MG; Start 12/06/18 at 09:00 Midodrine (Proamatine) 5 mg TID@09,13,17 GTB Last administered on 12/22/18 12:10; Admin Dose 5 MG; Start 12/07/18 at 09:00 Epoetin Margarito-epbx (RETACRIT(esrd)) 10,000 unit MoWeFr@1700 SC Last administered on 12/18/18 17:11; Admin Dose 10,000 UNIT; Start 12/11/18 at 17:00 Eye Lubricant (Artificial Tears Oph) 2 drop QID BOTH EYES Last administered on 12/22/18 12:10; Admin Dose 2 DROP; Start 12/10/18 at 09:00 Methylprednisolone Sodium Succinate (Solu-Medrol) 40 mg Q6 IV Last administered on 12/22/18 12:10; Admin Dose 40 MG; Start 12/10/18 at 18:00 Ertapenem 0.5 gm/ Sodium Chloride 100 ml @ 200 mls/hr Q24H IVPB Last administered on 12/21/18 18:49; Admin Dose 200 MLS/HR; Start 12/15/18 at 18:00 Lorazepam (Ativan) 1 mg Q4H PRN IV AGITATION/ANXIETY Last administered on 12/19/18 05:41; Admin Dose 1 MG; Start 12/15/18 at 11:00 Morphine Sulfate (morphine) 1 mg Q4H PRN IV SEVERE PAIN LEVEL 7-10 Last administered on 5/11/19at 03:37; Admin Dose 1 MG; Start 12/15/18 at 11:00 Metoclopramide HCl (Reglan) 5 mg Q8 IV Last administered on 12/22/18at 14:35; Admin Dose 5 MG; Start 12/17/18 at 12:00 Miscellaneous Information 1 ea BID XX ; Start 12/21/18 at 15:00 JOSLYN LANDRUM MD December 22, 2018 15:58
[2018-12-22] MEDS: ERTAPENEM SODIUM 0.5 GM in SOD CHLORIDE 0.9% 100 ML IVPB SCH (17:33)
[2018-12-23] VITALS (23 sets, daily range): BP systolic 113–138; BP diastolic 56–66; PULSE 58–78; RESP 17–22
[2018-12-23] MEDS: METOCLOPRAMIDE 10 MG INJ IV SCH ×3 (05:23→21:04)
[2018-12-23] MEDS: METHYLPREDNISOLONE 40 MG INJ IV SCH ×4 (05:23→23:49)
[2018-12-23] MEDS: SODIUM CHLORIDE 23.4% 154 MEQ in DEXTROSE 10% 1,000 ML IV SCH (05:32)
[2018-12-23] MEDS: LEVOTHYROXINE 75 MCG TAB NGT SCH (06:05)
[2018-12-23] MEDS: MIDODRINE 5 MG TAB GTB SCH ×3 (08:38→17:21)
[2018-12-23] MEDS: AMIODARONE 200 MG TAB NGT SCH ×2 (08:55→20:53)
[2018-12-23] MEDS: FOLIC ACID 1 MG TAB NGT SCH (08:55)
[2018-12-23] MEDS: FAMOTIDINE 20 MG TAB NGT SCH (08:55)
[2018-12-23] MEDS: ARTIFICIAL TEARS 15 ML OPH BOTH EYES SCH ×4 (08:56→20:53)
--- NOTE | 2018-12-23 09:32 | PN ---
DATE: 12/23/2018 SUBJECTIVE: The patient is stable. No events overnight. The patient had hemodialysis yesterday, to lerated well. OBJECTIVE: VITAL SIGNS: Blood pressure is 132/63, pulse 63, respirations 18, temperature 96.9. HEENT: Head is normocephalic. NECK: Supple. HEART: Regular rate. LUNGS: Show diminished breath sounds at the base. ABDOMEN: Soft, nontender to palpation without rebound or guarding. EXTREMITIES: Negative for clubbing, cyanosis. Positive edema. DERMATOLOGIC: No rashes. MUSCULOSKELETAL: No joint effusion. NEUROLOGIC: No change in exam. MEDICATIONS: Reviewed. LABORATORY DATA: Reviewed. ASSESSMENT AND PLAN: 1. End-stage renal disease. Plan is for hemodialysis tomorrow. 2. Volume overload, anasarca. Continue ultrafiltration with dialysis. 3. Sepsis, status post shock. The patient is completing antibiotic course. 4. Anemia. Continue to monitor hemoglobin and hematocrit levels. We will give Epogen as needed. 5. Mineral bone disorder, monitor calcium and phosphorus levels. 6. Ventilator-dependent respiratory failure. Vent settings have been reviewed. Continue to monitor . Follow up with pulmonary. 7. Chronic encephalopathy. Mental status is improving. Continue to monitor. 8. Hypothyroidism. Continue Synthroid. 9. Dysphagia. Continue tube feeding. 10. Arrhythmia. Continue amiodarone. 11. Thrombocytopenia. 12. Lower extremity wounds. Continue wound care. 13. Hypertension. Continue to monitor. The patient's midodrine may need to be discontinued. 14. Status post cardiopulmonary arrest. Dictated By: SARIKA JOINER DO NR/NTS Conf#: [id number] DID#: [id number] CC: LORRAINE JOHNSON MD; MANDY BATES MD; JOSLYN LANDRUM MD;*EndCC*
--- NOTE | 2018-12-23 09:57 | PN ---
Date/Time of Note Date/Time of Note DATE: 12/23/18 TIME: 09:56 Assessment/Plan Lines/Catheters IV Catheter Type (from Nrsg): Mid Line Moon in Place (from Nrsg): No Assessment/Plan Assessment/Plan Status post tracheostomy Trach site clean No bleeding Continue vent support Pulmonary toilet Subjective 24 Hr Interval Summary Constitutional: improved Pain Control: mild Exam/Review of Systems Vital Signs Vitals Vital Signs Date Temp Pulse Resp B/P (MAP) Pulse Ox O2 O2 Flow FiO2 Time Delivery Rate 12/23/18 63 08:52 12/23/18 96.9 18 132/63 99 Mechanical 07:36 (86) Ventilator 12/23/18 30 05:10 Intake and Output 12/22/18 12/22/18 12/23/18 1515:00 23:00 07:00 IntakeIntake Total 290 ml 200 ml OutputOutput Total 800 ml BalanceBalance -800 ml 290 ml 200 ml Exam Eyes: nl conjunctiva, EOMI, nl lids, nl sclera ENMT: nl external ears & nose, nl lips & teeth, nl nasal mucosa & septum, mucosa pink and moist Neck: supple, non-tender Respiratory: clear to auscultation, normal air movement Cardiovascular: regular rate and rhythm, nl pulses Gastrointestinal: soft, nl liver, spleen, non-tender Musculoskeletal: nl extremities to inspection, nl gait and stance Results Result Diagram: 12/23/18 0614 12/20/18 0613 TAE PAN MD December 23, 2018 09:57
[2018-12-23] MEDS: (Nursing Note) XX SCH ×4 (10:30→20:54)
[2018-12-23] MEDS: CASPOFUNGIN 50 MG in SOD CHLORIDE 0.9% 250 ML IVPB SCH (13:37)
--- NOTE | 2018-12-23 14:44 | CONS ---
Assessment/Plan Assessment/Plan Hospital Course (Demo Recall) No acute events overnight patient is alert looks comfortable, at bedside Antimicrobials: MonadasBull Microbiology: Blood culture on admission grew Klebsiella ESBL, repeat blood c ultures negative, left thigh wound culture grew Klebsiella ESBL and Leah albicans Allergy: Zosyn, vancomycin Indwelling: Right upper thigh Davie catheter, left femoral triple-lumen catheter, trach Physical examination: This is a chronically ill-appearing cachectic middle-aged woman who is laying comfortably in bed. Head atraumatic normocephalic. Neck is supple. Chest rise symmetrical. Breath sounds diminished bases. Heart: S1-S2, irreg. Abdomen distended. Bowel sounds hypoactive. Extremities with bilateral edema, cyanotic, multiple ecchymotic areas and bruises, left upper thigh dressing present Assessment: 1. Sepsis 2. Acute hypoxemic respiratory failure secondary to CHF exacerbation/probable pneumonia 3. Status post Klebsiella ESBL bacteremia likely 2 to #4 4. 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 End-stage renal disease, hemodialysis dependent 6. Atrial fibrillation/PPM 7. Unstageable sacral decubitus 8. History of peritoneal dialysis with peritoneal dialysis still in place 9. Ascites status post paracentesis 10. Failure to thrive 11. Thrombocytopenia 12. S/p B mastoiditis and acute sinusitis Plan: Remains unchanged, continue antibiotics indefinitely for infected graft, continue hemodialysis, vent management per pulmonary, prognosis poor Consultation Date/Type/Reason Admit Date/Time Nov 21, 2018 at 04:53 Initial Consult Date Type of Consult id Requesting Provider: RIKA STOCK Date/Time of Note DATE: 12/23/18 TIME: 14:43 Exam/Review of Systems Exam Vitals Vital Signs Date Temp Pulse Resp B/P (MAP) Pulse Ox O2 O2 Flow FiO2 Time Delivery Rate 12/23/18 65 14:27 12/23/18 97.0 131/66 13:30 (87) 12/23/18 21 99 30 13:20 12/23/18 Mechanical 11:31 Ventilator Intake and Output 12/22/18 12/22/18 12/23/18 1515:00 23:00 07:00 IntakeIntake Total 290 ml 200 ml OutputOutput Total 800 ml BalanceBalance -800 ml 290 ml 200 ml Results Result Diagram: 12/23/1814 12/20/18 0613 Results 24hrs Laboratory Tests Test 12/23/18 06:14 Hemoglobin 7.9 #L Medications Medication Current Medications Caspofungin 50 mg/ Sodium Chloride 250 ml @ 250 mls/hr Q24H IVPB Last administered on 12/23/18 13:37; Admin Dose 250 MLS/HR; Start 11/24/18 at 13:00 Miscellaneous Information 1 ea NOTE XX ; Start 11/23/18 at 13:30 Glucose (Glutose) 15 gm Q15M PRN PO DECREASED GLUCOSE; Start 11/23/18 at 13:30 Glucose (Glutose) 22.5 gm Q15M PRN PO DECREASED GLUCOSE; Start 11/23/18 at 13:30 Dextrose (D50w Syringe) 25 ml Q15M PRN IV DECREASED GLUCOSE Last administered on 12/09/18 13:59; Admin Dose 25 ML; Start 11/23/18 at 13:30 Dextrose (D50w Syringe) 50 ml Q15M PRN IV DECREASED GLUCOSE Last administered on 12/10/18 13:14; Admin Dose 50 ML; Start 11/23/18 at 13:30 Glucagon (Glucagen) 1 mg Q15M PRN IM DECREASED GLUCOSE; Start 11/23/18 at 13:30 Glucose (Glutose) 15 gm Q15M PRN BUCCAL DECREASED GLUCOSE; Start 11/23/18 at 13:30 Alteplase, Recombinant (Cathflo (Activase)) 2 mg MAY REPEAT X1 PRN CATHETER IF CATHETER REMAINS OCCULUDED Last administered on 12/02/18at 15:47; Admin Dose 2 MG; Start 11/26/18 at 03:00 Albumin Human 100 ml @ 100 mls/hr DURING DIALYSIS PRN IV HYPOTENSION DURING HD Last administered on 12/22/18 10:44; Admin Dose 100 MLS/HR; Start 11/26/18 at 14:00 Levothyroxine Sodium (Synthroid) 75 mcg BEFORE BREAKFAST NGT Last administered on 12/23/18 06:05; Admin Dose 75 MCG; Start 11/29/18 at 07:00 Sodium Chloride 154 meq/Dextrose 1,038.5 ml @ 40 mls/hr Q24H IV Last ad ministered on 12/23/18 05:32; Admin Dose 40 MLS/HR; Start 11/30/18 at 10:00 Collagenase (Santyl) 1 applic DAILY TOP Last administered on 12/22/18 09:38; Admin Dose 1 APPLIC; Start 12/01/18 at 16:30 Amiodarone HCl (Cordarone) 200 mg BID NGT Last administered on 12/23/18 08:55; Admin Dose 200 MG; Start 12/03/18 at 21:00 Acetaminophen (Tylenol Liquid) 650 mg Q6H PRN NGT PAIN LEVEL 1-3 OR FEVER Last administered on 12/21/18 20:18; Admin Dose 650 MG; Start 12/06/18 at 09:00 Famotidine (Pepcid) 20 mg DAILY NGT Last administered on 12/23/18 08:55; Admin Dose 20 MG; Start 12/06/18 at 09:00 Folic Acid (Folic Acid) 1 mg DAILY NGT Last administered on 12/23/18 08:55; Admin Dose 1 MG; Start 12/06/18 at 09:00 Midodrine (Proamatine) 5 mg TID@,,17 GTB Last administered on 12/22/18 12:10; Admin Dose 5 MG; Start 12/07/18 at 09:00 Epoetin Margarito-epbx (RETACRIT(esrd)) 10,000 unit MoWeFr@1700 SC Last administered on 12/18/18 17:11; Admin Dose 10,000 UNIT; Start 12/11/18 at 17:00 Eye Lubricant (Artificial Tears Oph) 2 drop QID BOTH EYES Last administered on 12/23/18 13:37; Admin Dose 2 DROP; Start 12/10/18 at 09:00 Methylprednisolone Sodium Succinate (Solu-Medrol) 40 mg Q6 IV Last administered on 12/23/18 11:28; Admin Dose 40 MG; Start 12/10/18 at 18:00 Ertapenem 0.5 gm/ Sodium Chloride 100 ml @ 200 mls/hr Q24H IVPB Last administered on 12/22/18 17:33; Admin Dose 200 MLS/HR; Start 12/15/18 at 18:00 Lorazepam (Ativan) 1 mg Q4H PRN IV AGITATION/ANXIETY Last administered on 12/19 05:41; Admin Dose 1 MG; Start 12/15/18 at 11:00 Morphine Sulfate (morphine) 1 mg Q4H PRN IV SEVERE PAIN LEVEL 7-10 Last administered on 12/19/18at 03:37; Admin Dose 1 MG; Start 12/15/18 at 11:00 Metoclopramide HCl (Reglan) 5 mg Q8 IV Last administered on 12/23/18at 13:37; Admin Dose 5 MG; Start 12/17/18 at 12:00 Miscellaneous Information 1 ea BID XX ; Start 12/21/18 at 15:00 Miscellaneous Information 1 ea BID XX ; Start 12/23/18 at 14:00 KELSIE ELY NP December 23, 2018 14:44
--- NOTE | 2018-12-23 15:08 | CONS ---
Consult Date/Type/Reason Admit Date/Time Nov 21, 2018 at 04:53 Initial Consult Date Type of Consult Pulmonary Requesting Provider: RIKA STOCK Date/Time of Note DATE: 12/23/18 TIME: 15:08 Subjective No significant changes. Still has profound global weakness. Objective Vital Signs Date Temp Pulse Resp B/P (MAP) Pulse Ox O2 O2 Flow FiO2 Time Delivery Rate 12/23/18 65 14:27 12/23/18 97.0 131/66 13:30 (87) 12/23/18 21 99 30 13:20 12/23/18 Mechanical 11:31 Ventilator Intake and Output 12/22/18 12/22/18 12/23/18 1515:00 23:00 07:00 IntakeIntake Total 290 ml 200 ml OutputOutput Total 800 ml BalanceBalance -800 ml 290 ml 200 ml Exam GENERAL: Thin cachectic lady on mechanical ventilation via tracheostomy VITAL SIGNS: per chart NECK: Supple. No JVD or lymphadenopathy. CARDIAC EXAM: S1, S2. No added sounds or murmurs. CHEST: clear bilaterally, No added sounds, rales or wheezes ABDOMEN: Soft, nontender. No guarding or rebound. EXTREMITIES: No cyanosis, clubbing or edema. NEUROLOGIC: Generalized weakness. No focal deficits. Vent Setting Ventilator Support Mode: AC Fraction of Inspired Oxygen pe: 30 Positive End Expiratory Pressu: 5.0 Results/Medications Result Diagram: 12/23/18 0614 12/20/18 0613 Results 24 hrs Laboratory Tests Test 12/23/18 06:14 Hemoglobin 7.9 #L Medications Current Medications Caspofungin 50 mg/ Sodium Chloride 250 ml @ 250 mls/hr Q24H IVPB Last administered on 12/23/18at 13:37; Admin Dose 250 MLS/HR; Start 11/24/18 at 13:00 Miscellaneous Information 1 ea NOTE XX ; Start 11/23/18 at 13:30 Glucose (Glutose) 15 gm Q15M PRN PO DECREASED GLUCOSE; Start 11/23/18 at 13:30 Glucose (Glutose) 22.5 gm Q15M PRN PO DECREASED GLUCOSE; Start 11/23/18 at 13:30 Dextrose (D50w Syringe) 25 ml Q15M PRN IV DECREASED GLUCOSE Last administered on 12/09/18at 13:59; Admin Dose 25 ML; Start 11/23/18 at 13:30 Dextrose (D50w Syringe) 50 ml Q15M PRN IV DECREASED GLUCOSE Last administered on 12/10/18 13:14; Admin Dose 50 ML; Start 11/23/18 at 13:30 Glucagon (Glucagen) 1 mg Q15M PRN IM DECREASED GLUCOSE; Start 11/23/18 at 13:30 Glucose (Glutose) 15 gm Q15M PRN BUCCAL DECREASED GLUCOSE; Start 11/23/18 at 13:30 Alteplase, Recombinant (Cathflo (Activase)) 2 mg MAY REPEAT X1 PRN CATHETER IF CATHETER REMAINS OCCULUDED Last administered on 12/02/18 15:47; Admin Dose 2 MG; Start 11/26/18 at 03:00 Albumin Human 100 ml @ 100 mls/hr DURING DIALYSIS PRN IV HYPOTENSION DURING HD Last administered on 12/22/18 10:44; Admin Dose 100 MLS/HR; Start 11/26/18 at 14:00 Levothyroxine Sodium (Synthroid) 75 mcg BEFORE BREAKFAST NGT Last administered on 12/23/18 06:05; Admin Dose 75 MCG; Start 11/29/18 at 07:00 Sodium Chloride 154 meq/Dextrose 1,038.5 ml @ 40 mls/hr Q24H IV Last administered on 12/23/18 05:32; Admin Dose 40 MLS/HR; Start 11/30/18 at 10:00 Collagenase (Santyl) 1 applic DAILY TOP Last administered on 12/22/18 09:38; Admin Dose 1 APPLIC; Start 12/01/18 at 16:30 Amiodarone HCl (Cordarone) 200 mg BID NGT Last administered on 12/23/18 08:55; Admin Dose 200 MG; Start 12/03/18 at 21:00 Acetaminophen (Tylenol Liquid) 650 mg Q6H PRN NGT PAIN LEVEL 1-3 OR FEVER Last administered on 12/21/18 20:18; Admin Dose 650 MG; Start 12/06/18 at 09:00 Famotidine (Pepcid) 20 mg DAILY NGT Last administered on 12/23/18 08:55; Admin Dose 20 MG; Start 12/06/18 at 09:00 Folic Acid (Folic Acid) 1 mg DAILY NGT Last administered on 12/23/18 08:55; Admin Dose 1 MG; Start 12/06/18 at 09:00 Midodrine (Proamatine) 5 mg TID@09,13,17 GTB Last administered on 12/22/18 12:10; Admin Dose 5 MG; Start 12/07/18 at 09:00 Epoetin Margarito-epbx (RETACRIT(esrd)) 10,000 unit MoWeFr@1700 SC Last administered on 12/18/18 17:11; Admin Dose 10,000 UNIT; Start 12/11/18 at 17:00 Eye Lubricant (Artificial Tears Oph) 2 drop QID BOTH EYES Last administered on 12/23/18 13:37; Admin Dose 2 DROP; Start 12/10/18 at 09:00 Methylprednisolone Sodium Succinate (Solu-Medrol) 40 mg Q6 IV Last administered on 12/23/18 11:28; Admin Dose 40 MG; Start 12/10/18 at 18:00 Ertapenem 0.5 gm/ Sodium Chloride 100 ml @ 200 mls/hr Q24H IVPB Last administered on 12/22/18 17:33; Admin Dose 200 MLS/HR; Start 12/15/18 at 18:00 Lorazepam (Ativan) 1 mg Q4H PRN IV AGITATION/ANXIETY Last administered on 12/19/18 05:41; Admin Dose 1 MG; Start 12/15/18 at 11:00 Morphine Sulfate (morphine) 1 mg Q4H PRN IV SEVERE PAIN LEVEL 7-10 Last administered on 12/19/18 03:37; Admin Dose 1 MG; Start 12/15/18 at 11:00 Metoclopramide HCl (Reglan) 5 mg Q8 IV Last administered on 12/23/18 13:37; Admin Dose 5 MG; Start 12/17/18 at 12:00 Miscellaneous Information 1 ea BID XX ; Start 12/21/18 at 15:00 Miscellaneous Information 1 ea BID XX ; Start 12/23/18 at 14:00 Assessment/Plan Hospital Course (Demo Recall) IMP: 1. Ventilator-dependent respiratory failure, status post tracheostomy. 2. Gram-negative sepsis. 3. End-stage renal disease on hemodialysis. 4. Cardiomyopathy. 5. Thrombocytopenia. 6. Anemia. 7. Status post septic shock. RECS: 1. Continue vent support--> december not tolerate SIMV/.PS trial based on findings on brief trial 2. Continue antibiotics as per ID 3. Hemodialysis per nephrology DC planning discussed with family at bedside. NINA MORRIS MD, FCCP December 23, 2018 15:08
--- NOTE | 2018-12-23 15:41 | PN ---
Date/Time of Note Date/Time of Note DATE: 12/23/18 TIME: 15:41 Assessment/Plan VTE Prophylaxis Risk score (from Nsg)>0 risk: 7 SCD applied (from Nsg): Yes Pharmacological prophylaxis: heparin Lines/Catheters IV Catheter Type (from Nrsg): Mid Line Urinary Cath still in place: No Assessment/Plan Hospital Course On MV via trach, apears comfortable, interactive Chronically ill appearing Lungs clear Distended belly, firm masses, G tube in place Mild peripheral edema present LUE wound wrapped 58 yo female with ESRD, cirrohsihs, DMII presents with hypoglycemia, leg infection. Suffered cardiac and respiratory arrest, now intubated Acute respiratory failure: - MV per pulm via trach Sepsis: - Antibiotics per ID Hypoglycemia - Continue IV dextrose and tube feeds Left lower extremity wound - Antibiotics per ID -Venous study was negative for DVT A Fib: - Amiodarone ESRD with fluid overload - HD per nephrology Hypothyroidism: Continue Synthroid History of pacemaker: No acute issue Prophylaxis: SCDs DC planning: Poor prognosis. Continue goals of care discussions with family. So far unwilling to consider withdrawal of care. Very upset to be asked about it and don't want us to bring it up again Result Diagram: 12/23/18 0614 12/20/18 0613 Results 24hrs Laboratory Tests Test 12/23/18 06:14 Hemoglobin 7.9 #L Subjective 24 Hr Interval Summary Free Text/Dictation No change to clinical status Comfortable on MV Awaiting placement Exam/Review of Systems Exam Vitals Vital Signs Date Temp Pulse Resp B/P (MAP) Pulse Ox O2 O2 Flow FiO2 Time Delivery Rate 12/23/18 65 14:27 12/23/18 97.0 131/66 13:30 (87) 12/23/18 21 99 30 13:20 12/23/18 Mechanical 11:31 Ventilator Intake and Output 12/22/18 12/22/18 12/23/18 1515:00 23:00 07:00 IntakeIntake Total 290 ml 200 ml OutputOutput Total 800 ml BalanceBalance -800 ml 290 ml 200 ml Results Results 24hrs Laboratory Tests Test 12/23/18 06:14 Hemoglobin 7.9 #L Medications Medication Current Medications Caspofungin 50 mg/ Sodium Chloride 250 ml @ 250 mls/hr Q24H IVPB Last administered on 12/23/18at 13:37; Admin Dose 250 MLS/HR; Start 11/24/18 at 13:00 Miscellaneous Information 1 ea NOTE XX ; Start 11/23/18 at 13:30 Glucose (Glutose) 15 gm Q15M PRN PO DECREASED GLUCOSE; Start 11/23/18 at 13:30 Glucose (Glutose) 22.5 gm Q15M PRN PO DECREASED GLUCOSE; Start 11/23/18 at 13:30 Dextrose (D50w Syringe) 25 ml Q15M PRN IV DECREASED GLUCOSE Last administered on 12/09/18 13:59; Admin Dose 25 ML; Start 11/23/18 at 13:30 Dextrose (D50w Syringe) 50 ml Q15M PRN IV DECREASED GLUCOSE Last administered on 12/10/18 13:14; Admin Dose 50 ML; Start 11/23/18 at 13:30 Glucagon (Glucagen) 1 mg Q15M PRN IM DECREASED GLUCOSE; Start 11/23/18 at 13:30 Glucose (Glutose) 15 gm Q15M PRN BUCCAL DECREASED GLUCOSE; Start 11/23/18 at 13:30 Alteplase, Recombinant (Cathflo (Activase)) 2 mg MAY REPEAT X1 PRN CATHETER IF CATHETER REMAINS OCCULUDED Last administered on 12/02/18 15:47; Admin Dose 2 MG; Start 11/26/18 at 03:00 Albumin Human 100 ml @ 100 mls/hr DURING DIALYSIS PRN IV HYPOTENSION DURING HD Last administered on 12/22/18 10:44; Admin Dose 100 MLS/HR; Start 11/26/18 at 14:00 Levothyroxine Sodium (Synthroid) 75 mcg BEFORE BREAKFAST NGT Last administered on 12/23/18 06:05; Admin Dose 75 MCG; Start 11/29/18 at 07:00 Sodium Chloride 154 meq/Dextrose 1,038.5 ml @ 40 mls/hr Q24H IV Last administered on 12/23/18 05:32; Admin Dose 40 MLS/HR; Start 11/30/18 at 10:00 Collagenase (Santyl) 1 applic DAILY TOP Last administered on 12/22/18 09:38; Admin Dose 1 APPLIC; Start 12/01/18 at 16:30 Amiodarone HCl (Cordarone) 200 mg BID NGT Last administered on 12/23/18 08:55; Admin Dose 200 MG; Start 12/03/18 at 21:00 Acetaminophen (Tylenol Liquid) 650 mg Q6H PRN NGT PAIN LEVEL 1-3 OR FEVER Last administered on 12/21/18 20:18; Admin Dose 650 MG; Start 12/06/18 at 09:00 Famotidine (Pepcid) 20 mg DAILY NGT Last administered on 12/23/18 08:55; Admin Dose 20 MG; Start 12/06/18 at 09:00 Folic Acid (Folic Acid) 1 mg DAILY NGT Last administered on 12/23/18 08:55; Admin Dose 1 MG; Start 12/06/18 at 09:00 Midodrine (Proamatine) 5 mg TID@,13,17 GTB Last administered on 12/22/18 12:10; Admin Dose 5 MG; Start 12/07/18 at 09:00 Epoetin Margarito-epbx (RETACRIT(esrd)) 10,000 unit MoWeFr@1700 SC Last administered on 12/18/18 17:11; Admin Dose 10,000 UNIT; Start 12/11/18 at 17:00 Eye Lubricant (Artificial Tears Oph) 2 drop QID BOTH EYES Last administered on 12/23/18 13:37; Admin Dose 2 DROP; Start 12/10/18 at 09:00 Methylprednisolone Sodium Succinate (Solu-Medrol) 40 mg Q6 IV Last administered on 12/23/18 11:28; Admin Dose 40 MG; Start 12/10/18 at 18:00 Ertapenem 0.5 gm/ Sodium Chloride 100 ml @ 200 mls/hr Q24H IVPB Last administered on 12/22/18 17:33; Admin Dose 200 MLS/HR; Start 12/15/18 at 18:00 Lorazepam (Ativan) 1 mg Q4H PRN IV AGITATION/ANXIETY Last administered on 12/19/18 05:41; Admin Dose 1 MG; Start 12/15/18 at 11:00 Morphine Sulfate (morphine) 1 mg Q4H PRN IV SEVERE PAIN LEVEL 7-10 Last administered on 12/19/18 03:37; Admin Dose 1 MG; Start 12/15/18 at 11:00 Metoclopramide HCl (Reglan) 5 mg Q8 IV Last administered on 12/23/18at 13:37; Admin Dose 5 MG; Start 12/17/18 at 12:00 Miscellaneous Information 1 ea BID XX ; Start 12/21/18 at 15:00 Miscellaneous Information 1 ea BID XX ; Start 12/23/18 at 14:00 JOSLYN LANDRUM MD December 23, 2018 15:41
[2018-12-23] MEDS: BALSAM PERU/CASTOR OIL 60 GM TUBE TOP SCH ×2 (17:20→20:54)
[2018-12-23] MEDS: COLLAGENASE 5 GM (UD JAR) TOP SCH (17:20)
[2018-12-23] MEDS: ERTAPENEM SODIUM 0.5 GM in SOD CHLORIDE 0.9% 100 ML IVPB SCH (17:21)
[2018-12-23] MEDS: EPOETIN ALFA-EPBX (ESRD) 10,000 UNIT/ML VIAL SC SCH (17:37)
[2018-12-24] VITALS (35 sets, daily range): BP systolic 73–143; BP diastolic 46–66; PULSE 61–80; RESP 18–24
[2018-12-24] MEDS: METOCLOPRAMIDE 10 MG INJ IV SCH ×3 (05:29→23:19)
[2018-12-24] MEDS: METHYLPREDNISOLONE 40 MG INJ IV SCH ×2 (05:29→18:00)
[2018-12-24] MEDS: LEVOTHYROXINE 75 MCG TAB NGT SCH (08:17)
[2018-12-24] MEDS: FAMOTIDINE 20 MG TAB NGT SCH (08:18)
[2018-12-24] MEDS: ARTIFICIAL TEARS 15 ML OPH BOTH EYES SCH ×4 (08:18→23:17)
[2018-12-24] MEDS: MIDODRINE 5 MG TAB GTB SCH ×3 (08:19→19:11)
[2018-12-24] MEDS: FOLIC ACID 1 MG TAB NGT SCH (08:19)
[2018-12-24] MEDS: AMIODARONE 200 MG TAB NGT SCH (08:19)
[2018-12-24] MEDS: BALSAM PERU/CASTOR OIL 60 GM TUBE TOP SCH ×2 (08:20→23:18)
[2018-12-24] MEDS: COLLAGENASE 5 GM (UD JAR) TOP SCH (08:20)
--- NOTE | 2018-12-24 08:43 | PN ---
DATE: 12/24/2018 SUBJECTIVE: The patient remains stable, on full ventilatory support. No other events noted. OBJECTIVE: VITAL SIGNS: Blood pressure is 116/56, pulse 69, respirations 18, temperature 97.5. HEENT: Head is normocephalic. NECK: Supple. HEART: Regular rate. LUNGS: Show diminished breath sounds at the base. ABDOMEN: Soft, nontender to palpation without rebound or guarding. EXTREMITIES: Negative for clubbing, cyanosis. Positive edema. DERMATOLOGIC: No rashes. MUSCULOSKELETAL: No joint effusion. NEUROLOGIC: No change in exam. MEDICATIONS: Reviewed. LABORATORY DATA: Reviewed. ASSESSMENT AND PLAN: 1. End-stage renal disease. Plan is for dialysis today. We will dialyze 3 hours 3k bath, calcium 2 .5. 2. Volume overload, anasarca. Continue ultrafiltration with dialysis. 3. Anemia. Continue to monitor hemoglobin and hematocrit levels. Continue Epogen. Consider repeat ing iron panel. 4. Mineral bone disorder, monitor calcium and phosphorus levels. 5. Ventilator-dependent respiratory failure. Vent settings have been reviewed. Continue to monitor . Follow up with pulmonary. 6. Chronic encephalopathy, stable. 7. Sepsis, status post shock. The patient is completing antibiotic course. 8. Hypothyroidism. Continue Synthroid. 9. Dysphagia. Continue tube feeding. 10. Arrhythmia. Continue amiodarone. 11. Lower extremity wounds. Continue wound care. 12. Status post cardiopulmonary arrest. Dictated By: SARIKA JOINER DO NR/NTS Conf#: [id number] DID#: [id number] CC: LORRAINE JOHNSON MD; JOSLYN LANDRUM MD; MANDY BATES MD;*EndCC*
[2018-12-24] MEDS: (Nursing Note) XX SCH ×4 (08:57→21:00)
--- NOTE | 2018-12-24 12:05 | CONS ---
Consult Date/Type/Reason Admit Date/Time Nov 21, 2018 at 04:53 Initial Consult Date Type of Consult Pulmonary Requesting Provider: RIKA STOCK Date/Time of Note DATE: 12/24/18 TIME: 12:05 Subjective Patient stable no respiratory distress Objective Vital Signs Date Temp Pulse Resp B/P (MAP) Pulse Ox O2 O2 Flow FiO2 Time Delivery Rate 12/24/18 71 22 100 11:40 12/24/18 97.5 111/57 Mechanical 11:25 (75) Ventilator 12/24/18 30 08:30 Intake and Output 12/23/18 12/23/18 12/24/18 1515:00 23:00 07:00 IntakeIntake Total 800 ml 240 ml OutputOutput Total 200 ml BalanceBalance 600 ml 240 ml Exam GENERAL: Thin cachectic lady on mechanical ventilation via tracheostomy VITAL SIGNS: per chart NECK: Supple. No JVD or lymphadenopathy. CARDIAC EXAM: S1, S2. No added sounds or murmurs. CHEST: clear bilaterally, No added sounds, rales or wheezes ABDOMEN: Soft, nontender. No guarding or rebound. EXTREMITIES: No cyanosis, clubbing or edema. NEUROLOGIC: Generalized weakness. No focal deficits. Vent Setting Ventilator Support Mode: AC Fraction of Inspired Oxygen pe: 30 Positive End Expiratory Pressu: 5.0 Results/Medications Result Diagram: 12/23/1861312/20/18612 Medications Current Medications Caspofungin 50 mg/ Sodium Chloride 250 ml @ 250 mls/hr Q24H IVPB Last administered on 12/23/18at 13:37; Admin Dose 250 MLS/HR; Start 11/24/18 at 13:00 Miscellaneous Information 1 ea NOTE XX ; Start 11/23/18 at 13:30 Glucose (Glutose) 15 gm Q15M PRN PO DECREASED GLUCOSE; Start 11/23/18 at 13:30 Glucose (Glutose) 22.5 gm Q15M PRN PO DECREASED GLUCOSE; Start 11/23/18 at 13:30 Dextrose (D50w Syringe) 25 ml Q15M PRN IV DECREASED GLUCOSE Last administered on 12/09/18at 13:59; Admin Dose 25 ML; Start 11/23/18 at 13:30 Dextrose (D50w Syringe) 50 ml Q15M PRN IV DECREASED GLUCOSE Last administered on 12/10/18at 13:14; Admin Dose 50 ML; Start 11/23/18 at 13:30 Glucagon (Glucagen) 1 mg Q15M PRN IM DECREASED GLUCOSE; Start 11/23/18 at 13:30 Glucose (Glutose) 15 gm Q15M PRN BUCCAL DECREASED GLUCOSE; Start 11/23/18 at 13:30 Alteplase, Recombinant (Cathflo (Activase)) 2 mg MAY REPEAT X1 PRN CATHETER IF CATHETER REMAINS OCCULUDED Last administered on 12/02/18 15:47; Admin Dose 2 MG; Start 11/26/18 at 03:00 Albumin Human 100 ml @ 100 mls/hr DURING DIALYSIS PRN IV HYPOTENSION DURING HD Last administered on 12/22/18 10:44; Admin Dose 100 MLS/HR; Start 11/26/18 at 14:00 Levothyroxine Sodium (Synthroid) 75 mcg BEFORE BREAKFAST NGT Last administered on 12/24/18 08:17; Admin Dose 75 MCG; Start 11/29/18 at 07:00 Sodium Chloride 154 meq/Dextrose 1,038.5 ml @ 40 mls/hr Q24H IV Last administered on 12/23/18 05:32; Admin Dose 40 MLS/HR; Start 11/30/18 at 10:00 Collagenase (Santyl) 1 applic DAILY TOP Last administered on 12/24/18 08:20; Admin Dose 1 APPLIC; Start 12/01/18 at 16:30 Amiodarone HCl (Cordarone) 200 mg BID NGT Last administered on 12/24/18 08:19; Admin Dose 200 MG; Start 12/03/18 at 21:00 Acetaminophen (Tylenol Liquid) 650 mg Q6H PRN NGT PAIN LEVEL 1-3 OR FEVER Last administered on 12/21/18 20:18; Admin Dose 650 MG; Start 12/06/18 at 09:00 Famotidine (Pepcid) 20 mg DAILY NGT Last administered on 12/24/18 08:18; Admin Dose 20 MG; Start 12/06/18 at 09:00 Folic Acid (Folic Acid) 1 mg DAILY NGT Last administered on 12/24/18 08:19; Admin Dose 1 MG; Start 12/06/18 at 09:00 Midodrine (Proamatine) 5 mg TID@09,13,17 GTB Last administered on 12/24/18 08:19; Admin Dose 5 MG; Start 12/07/18 at 09:00 Epoetin Margarito-epbx (RETACRIT(esrd)) 10,000 unit MoWeFr@1700 SC Last administered on 12/23/18 17:37; Admin Dose 10,000 UNIT; Start 12/11/18 at 17:00 Eye Lubricant (Artificial Tears Oph) 2 drop QID BOTH EYES Last administered on 12/24/18 08:18; Admin Dose 2 DROP; Start 12/10/18 at 09:00 Methylprednisolone Sodium Succinate (Solu-Medrol) 40 mg Q6 IV Last administered on 12/24/18 05:29; Admin Dose 40 MG; Start 12/10/18 at 18:00 Ertapenem 0.5 gm/ Sodium Chloride 100 ml @ 200 mls/hr Q24H IVPB Last administered on 12/23/18 17:21; Admin Dose 200 MLS/HR; Start 12/15/18 at 18:00 Lorazepam (Ativan) 1 mg Q4H PRN IV AGITATION/ANXIETY Last administered on 12/19/18 05:41; Admin Dose 1 MG; Start 12/15/18 at 11:00 Morphine Sulfate (morphine) 1 mg Q4H PRN IV SEVERE PAIN LEVEL 7-10 Last administered on 12/19/18 03:37; Admin Dose 1 MG; Start 12/15/18 at 11:00 Metoclopramide HCl (Reglan) 5 mg Q8 IV Last administered on 12/24/18 05:29; Admin Dose 5 MG; Start 12/17/18 at 12:00 Miscellaneous Information 1 ea BID XX ; Start 12/21/18 at 15:00 Miscellaneous Information 1 ea BID XX ; Start 12/23/18 at 14:00 Assessment/Plan Hospital Course (Demo Recall) IMP: 1. Ventilator-dependent respiratory failure, status post tracheostomy. 2. Gram-negative sepsis. 3. End-stage renal disease on hemodialysis. 4. Cardiomyopathy. 5. Thrombocytopenia. 6. Anemia. 7. Status post septic shock. RECS: 1. Continue vent support--> may not tolerate SIMV/.PS trial based on findings on brief trial 2. Continue antibiotics as per ID 3. Hemodialysis per nephrology DC planning Discussed with case management NINA MORRIS MD, FCCP December 24, 2018 12:05
--- NOTE | 2018-12-24 12:34 | PN ---
Date/Time of Note Date/Time of Note DATE: 12/24/18 TIME: 12:29 Assessment/Plan VTE Prophylaxis Risk score (from Nsg)>0 risk: 3 SCD applied (from Ns): Yes Pharmacological prophylaxis: heparin Lines/Catheters IV Catheter Type (from Nrsg): Mid Line Urinary Cath still in place: No Assessment/Plan Hospital Course On MV via trach, apears comfortable, interactive Chronically ill appearing Lungs clear Distended belly, firm masses, G tube in place Mild peripheral edema present LUE wound wrapped 58 yo female with ESRD, cirrohsihs, DMII presents with hypoglycemia, leg infection. Suffered cardiac and respiratory arrest, recovered with good neurologic status however was unable to be weaned from mechanical ventilation and is now s/p trach and PEG. Comfortable on MV chronically Chronic respiratory failure: - MV per pulm via trach Wean steroids off over the next few days Left lower extremity wound - Antibiotics indefniitely per ID ESRD - HD per nephrology Hypothyroidism: - Continue Synthroid Prophylaxis: SCDs DC planning: Poor prognosis. Continue goals of care discussions with family. So far unwilling to consider withdrawal of care. Very upset to be asked about it and don't want us to bring it up again Result Diagram: 12/23/18 0614 12/20/18 0613 Subjective 24 Hr Interval Summary Free Text/Dictation No change to clinical status Comfortable Exam/Review of Systems Exam Vitals Vital Signs Date Temp Pulse Resp B/P (MAP) Pulse Ox O2 O2 Flow FiO2 Time Delivery Rate 12/24/18 64 12:27 12/24/18 22 100 11:40 12/24/18 97.5 111/57 Mechanical 11:25 (75) Ventilator 12/24/18 30 08:30 Intake and Output 12/23/18 12/23/18 12/24/18 1414:59 22:59 06:59 IntakeIntake Total 800 ml 240 ml OutputOutput Total 200 ml BalanceBalance 600 ml 240 ml Medications Medication Current Medications Caspofungin 50 mg/ Sodium Chloride 250 ml @ 250 mls/hr Q24H IVPB Last administered on 12/23/18at 13:37; Admin Dose 250 MLS/HR; Start 11/24/18 at 13:00 Miscellaneous Information 1 ea NOTE XX ; Start 11/23/18 at 13:30 Glucose (Glutose) 15 gm Q15M PRN PO DECREASED GLUCOSE; Start 11/23/18 at 13:30 Glucose (Glutose) 22.5 gm Q15M PRN PO DECREASED GLUCOSE; Start 11/23/18 at 13:30 Dextrose (D50w Syringe) 25 ml Q15M PRN IV DECREASED GLUCOSE Last administered on 12/09/18 13:59; Admin Dose 25 ML; Start 11/23/18 at 13:30 Dextrose (D50w Syringe) 50 ml Q15M PRN IV DECREASED GLUCOSE Last administered on 12/10/18 13:14; Admin Dose 50 ML; Start 11/23/18 at 13:30 Glucagon (Glucagen) 1 mg Q15M PRN IM DECREASED GLUCOSE; Start 11/23/18 at 13:30 Glucose (Glutose) 15 gm Q15M PRN BUCCAL DECREASED GLUCOSE; Start 11/23/18 at 13:30 Alteplase, Recombinant (Cathflo (Activase)) 2 mg MAY REPEAT X1 PRN CATHETER IF CATHETER REMAINS OCCULUDED Last administered on 12/02/18 15:47; Admin Dose 2 MG; Start 11/26/18 at 03:00 Albumin Human 100 ml @ 100 mls/hr DURING DIALYSIS PRN IV HYPOTENSION DURING HD Last administered on 12/22/18 10:44; Admin Dose 100 MLS/HR; Start 11/26/18 at 14:00 Levothyroxine Sodium (Synthroid) 75 mcg BEFORE BREAKFAST NGT Last administered on 12/24/18 08:17; Admin Dose 75 MCG; Start 11/29/18 at 07:00 Sodium Chloride 154 meq/Dextrose 1,038.5 ml @ 40 mls/hr Q24H IV Last administered on 12/23/18 05:32; Admin Dose 40 MLS/HR; Start 11/30/18 at 10:00 Collagenase (Santyl) 1 applic DAILY TOP Last administered on 12/24/18 08:20; Admin Dose 1 APPLIC; Start 12/01/18 at 16:30 Amiodarone HCl (Cordarone) 200 mg BID NGT Last administered on 12/24/18 08:19; Admin Dose 200 MG; Start 12/03/18 at 21:00 Acetaminophen (Tylenol Liquid) 650 mg Q6H PRN NGT PAIN LEVEL 1-3 OR FEVER Last administered on 12/21/18 20:18; Admin Dose 650 MG; Start 12/06/18 at 09:00 Famotidine (Pepcid) 20 mg DAILY NGT Last administered on 12/24/18 08:18; Admin Dose 20 MG; Start 12/06/18 at 09:00 Folic Acid (Folic Acid) 1 mg DAILY NGT Last administered on 12/24/18 08:19; Admin Dose 1 MG; Start 12/06/18 at 09:00 Midodrine (Proamatine) 5 mg TID@,,17 GTB Last administered on 12/24/18 08:19; Admin Dose 5 MG; Start 12/07/18 at 09:00 Epoetin Margarito-epbx (RETACRIT(esrd)) 10,000 unit MoWeFr@1700 SC Last administered on 12/23/18 17:37; Admin Dose 10,000 UNIT; Start 12/11/18 at 17:00 Eye Lubricant (Artificial Tears Oph) 2 drop QID BOTH EYES Last administered on 12/24/18 08:18; Admin Dose 2 DROP; Start 12/10/18 at 09:00 Methylprednisolone Sodium Succinate (Solu-Medrol) 40 mg Q6 IV Last administered on 12/24/18 05:29; Admin Dose 40 MG; Start 12/10/18 at 18:00 Ertapenem 0.5 gm/ Sodium Chloride 100 ml @ 200 mls/hr Q24H IVPB Last administered on 12/23/18 17:21; Admin Dose 200 MLS/HR; Start 12/15/18 at 18:00 Lorazepam (Ativan) 1 mg Q4H PRN IV AGITATION/ANXIETY Last administered on 12/19/18 05:41; Admin Dose 1 MG; Start 12/15/18 at 11:00 Morphine Sulfate (morphine) 1 mg Q4H PRN IV SEVERE PAIN LEVEL 7-10 Last administered on 12/19/18 03:37; Admin Dose 1 MG; Start 12/15/18 at 11:00 Metoclopramide HCl (Reglan) 5 mg Q8 IV Last administered on 12/24/18 05:29; Admin Dose 5 MG; Start 12/17/18 at 12:00 Miscellaneous Information 1 ea BID XX ; Start 12/21/18 at 15:00 Miscellaneous Information 1 ea BID XX ; Start 12/23/18 at 14:00 JOSLYN LANDRUM MD December 24, 2018 12:34
[2018-12-24] MEDS: CASPOFUNGIN 50 MG in SOD CHLORIDE 0.9% 250 ML IVPB SCH (13:13)
--- NOTE | 2018-12-24 13:18 | PN ---
Date/Time of Note Date/Time of Note DATE: 12/24/18 TIME: 13:18 Assessment/Plan Lines/Catheters IV Catheter Type (from Nrsg): Mid Line Moon in Place (from Nrsg): No Assessment/Plan Assessment/Plan Status post tracheostomy Patient site clean No bleeding Continue vent support Pulmonary toilet Subjective 24 Hr Interval Summary Constitutional: no complaints, improved, ambulates, BM, flatus, urine output Pain Control: well controlled Exam/Review of Systems Vital Signs Vitals Vital Signs Date Temp Pulse Resp B/P (MAP) Pulse Ox O2 O2 Flow FiO2 Time Delivery Rate 12/24/18 64 12:27 12/24/18 22 100 11:40 12/24/18 97.5 111/57 Mechanical 11:25 (75) Ventilator 12/24/18 30 08:30 Intake and Output 12/23/18 12/23/18 12/24/18 1515:00 23:00 07:00 IntakeIntake Total 800 ml 240 ml OutputOutput Total 200 ml BalanceBalance 600 ml 240 ml Exam Eyes: nl conjunctiva, EOMI, nl lids, nl sclera ENMT: nl external ears & nose, nl lips & teeth, nl nasal mucosa & septum, mucosa pink and moist Neck: supple, non-tender Respiratory: clear to auscultation, normal air movement Cardiovascular: regular rate and rhythm, nl pulses Gastrointestinal: soft, nl liver, spleen, non-tender Musculoskeletal: nl extremities to inspection, nl gait and stance Results Result Diagram: 12/23/18 0614 12/20/18 0613 TAE PAN MD December 24, 2018 13:18
--- NOTE | 2018-12-24 13:28 | CONS ---
Assessment/Plan Assessment/Plan Hospital Course (Demo Recall) No acute events overnight patient is alert looks comfortable, at bedside Antimicrobials: Monadas, Bull Microbiology: Blood culture on admission grew Klebsiella ESBL, repeat blood c ultures negative, left thigh wound culture grew Klebsiella ESBL and Leah albicans Allergy: Zosyn, vancomycin Indwelling: Right upper thigh Davie catheter, left femoral triple-lumen catheter, trach Physical examination: This is a chronically ill-appearing cachectic middle-aged woman who is laying comfortably in bed. Head atraumatic normocephalic. Neck is supple. Chest rise symmetrical. Breath sounds diminished bases. Heart: S1-S2, irreg. Abdomen distended. Bowel sounds hypoactive. Extremities with bilateral edema, cyanotic, multiple ecchymotic areas and bruises, left upper thigh dressing present Assessment: 1. Sepsis 2. Acute hypoxemic respiratory failure secondary to CHF exacerbation/probable pneumonia 3. Status post Klebsiella ESBL bacteremia likely 2 to #4 4. 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 End-stage renal disease, hemodialysis dependent 6. Atrial fibrillation/PPM 7. Unstageable sacral decubitus 8. History of peritoneal dialysis with peritoneal dialysis still in place 9. Ascites status post paracentesis 10. Failure to thrive 11. Thrombocytopenia 12. S/p B mastoiditis and acute sinusitis Plan: Remains unchanged, continue antibiotics indefinitely for infected graft, dc planning, prognosis poor Consultation Date/Type/Reason Admit Date/Time Nov 21, 2018 at 04:53 Initial Consult Date Type of Consult id Requesting Provider: RIKA STOCK Date/Time of Note DATE: 12/24/18 TIME: 13:27 Exam/Review of Systems Exam Vitals Vital Signs Date Temp Pulse Resp B/P (MAP) Pulse Ox O2 O2 Flow FiO2 Time Delivery Rate 12/24/18 64 12:27 12/24/18 22 100 11:40 12/24/18 97.5 111/57 Mechanical 11:25 (75) Ventilator 12/24/18 30 08:30 Intake and Output 12/23/18 12/23/18 12/24/18 1515:00 23:00 07:00 IntakeIntake Total 800 ml 240 ml OutputOutput Total 200 ml BalanceBalance 600 ml 240 ml Results Result Diagram: 12/23/18 0614 12/20/18 0613 Medications Medication Current Medications Caspofungin 50 mg/ Sodium Chloride 250 ml @ 250 mls/hr Q24H IVPB Last administered on 12/24/18 13:13; Admin Dose 250 MLS/HR; Start 11/24/18 at 13:00 Miscellaneous Information 1 ea NOTE XX ; Start 11/23/18 at 13:30 Glucose (Glutose) 15 gm Q15M PRN PO DECREASED GLUCOSE; Start 11/23/18 at 13:30 Glucose (Glutose) 22.5 gm Q15M PRN PO DECREASED GLUCOSE; Start 11/23/18 at 13:30 Dextrose (D50w Syringe) 25 ml Q15M PRN IV DECREASED GLUCOSE Last administered on 12/09/18 13:59; Admin Dose 25 ML; Start 11/23/18 at 13:30 Dextrose (D50w Syringe) 50 ml Q15M PRN IV DECREASED GLUCOSE Last administered on 12/10/18 13:14; Admin Dose 50 ML; Start 11/23/18 at 13:30 Glucagon (Glucagen) 1 mg Q15M PRN IM DECREASED GLUCOSE; Start 11/23/18 at 13:30 Glucose (Glutose) 15 gm Q15M PRN BUCCAL DECREASED GLUCOSE; Start 11/23/18 at 13:30 Alteplase, Recombinant (Cathflo (Activase)) 2 mg MAY REPEAT X1 PRN CATHETER IF CATHETER REMAINS OCCULUDED Last administered on 12/02/18 15:47; Admin Dose 2 MG; Start 11/26/18 at 03:00 Albumin Human 100 ml @ 100 mls/hr DURING DIALYSIS PRN IV HYPOTENSION DURING HD Last administered on 12/22/18 10:44; Admin Dose 100 MLS/HR; Start 11/26/18 at 14:00 Levothyroxine Sodium (Synthroid) 75 mcg BEFORE BREAKFAST NGT Last administered on 12/24/18 08:17; Admin Dose 75 MCG; Start 11/29/18 at 07:00 Collagenase (Santyl) 1 applic DAILY TOP Last administered on 12/24/18 08:20; Admin Dose 1 APPLIC; Start 12/01/18 at 16:30 Acetaminophen (Tylenol Liquid) 650 mg Q6H PRN NGT PAIN LEVEL 1-3 OR FEVER Last administered on 12/21/18 20:18; Admin Dose 650 MG; Start 12/06/18 at 09:00 Midodrine (Proamatine) 5 mg TID@,13,17 GTB Last administered on 12/24/18 13:13; Admin Dose 5 MG; Start 12/07/18 at 09:00 Epoetin Margarito-epbx (RETACRIT(esrd)) 10,000 unit MoWeFr@1700 SC Last administered on 12/23/18 17:37; Admin Dose 10,000 UNIT; Start 12/11/18 at 17:00 Eye Lubricant (Artificial Tears Oph) 2 drop QID BOTH EYES Last administered on 12/24/18 13:14; Admin Dose 2 DROP; Start 12/10/18 at 09:00 Ertapenem 0.5 gm/ Sodium Chloride 100 ml @ 200 mls/hr Q24H IVPB Last administered on 12/23/18 17:21; Admin Dose 200 MLS/HR; Start 12/15/18 at 18:00 Lorazepam (Ativan) 1 mg Q4H PRN IV AGITATION/ANXIETY Last administered on 12/19/18at 05:41; Admin Dose 1 MG; Start 12/15/18 at 11:00 Morphine Sulfate (morphine) 1 mg Q4H PRN IV SEVERE PAIN LEVEL 7-10 Last administered on 12/19/18 03:37; Admin Dose 1 MG; Start 12/15/18 at 11:00 Metoclopramide HCl (Reglan) 5 mg Q8 IV Last administered on 12/24/18 13:13; Admin Dose 5 MG; Start 12/17/18 at 12:00 Miscellaneous Information 1 ea BID XX ; Start 12/21/18 at 15:00 Miscellaneous Information 1 ea BID XX ; Start 12/23/18 at 14:00 Methylprednisolone Sodium Succinate (Solu-Medrol) 40 mg Q12H IV ; Start 12/24/18 at 18:00 KELSIE ELY NP December 24, 2018 13:28
[2018-12-24] MEDS: ERTAPENEM SODIUM 0.5 GM in SOD CHLORIDE 0.9% 100 ML IVPB SCH (18:00)
[2018-12-24] MEDS: ALBUMIN HUMAN 25% 100 ML IV PRN ×2 (18:10→18:56)
[2018-12-25] VITALS (21 sets, daily range): BP systolic 111–141; BP diastolic 51–67; PULSE 62–101; RESP 18–22
[2018-12-25] MEDS: ALBUTEROL 0.083% (NEB) 2.5 MG/3 ML AMP HHN SCH ×6 (00:58→20:25)
[2018-12-25] MEDS: METHYLPREDNISOLONE 40 MG INJ IV SCH ×2 (06:23→17:27)
[2018-12-25] MEDS: LEVOTHYROXINE 75 MCG TAB NGT SCH (06:24)
[2018-12-25] MEDS: METOCLOPRAMIDE 10 MG INJ IV SCH ×3 (06:24→21:32)
--- NOTE | 2018-12-25 08:31 | PN ---
DATE: 12/25/2018 SUBJECTIVE: The patient is stable, no events overnight. The patient had hemodialysis yesterday. OBJECTIVE: VITAL SIGNS: Blood pressure is 141/67, pulse 80, respirations 22, temperature 97.5. HEENT: Head is normocephalic. NECK: Supple. HEART: Regular rate. LUNGS: Show diminished breath sounds at the base. ABDOMEN: Soft, nontender to palpation without rebound or guarding. EXTREMITIES: Negative for clubbing, cyanosis. Positive edema. DERMATOLOGIC: No rashes. MUSCULOSKELETAL: No joint effusion. NEUROLOGIC: No change in exam. MEDICATIONS: Reviewed. LABORATORY DATA: Reviewed. ASSESSMENT AND PLAN: 1. End stage renal disease. Plan is for hemodialysis tomorrow. 2. Volume overload, anasarca. Continue ultrafiltration with dialysis. 3. Anemia. Continue to monitor hemoglobin and hematocrit levels. Continue Epogen. 4. Mineral bone disorder, monitor calcium and phosphorus levels. 5. Ventilator-dependent respiratory failure. Vent settings have been reviewed. Continue to monitor . Follow up with pulmonary. 6. Chronic encephalopathy, stable. 7. Sepsis, status post shock. The patient is completing antibiotic course. 8. Hypothyroidism. Continue Synthroid. 9. Dysphagia. Continue tube feeding. 10. Arrhythmia. Continue amiodarone. 11. Lower extremity wounds. Continue wound care. 12. Status post cardiopulmonary arrest. Dictated By: SARIKA JOINER DO NR/NTS Conf#: [id number] DID#: [id number] CC: MANDY BATES MD; JOSLYN LANDRUM MD; LORRAINE JOHNSON MD;*EndCC*
[2018-12-25] MEDS: MIDODRINE 5 MG TAB GTB SCH ×3 (09:00→17:26)
[2018-12-25] MEDS: COLLAGENASE 5 GM (UD JAR) TOP SCH (10:09)
[2018-12-25] MEDS: BALSAM PERU/CASTOR OIL 60 GM TUBE TOP SCH ×3 (10:09→21:36)
[2018-12-25] MEDS: ARTIFICIAL TEARS 15 ML OPH BOTH EYES SCH ×4 (10:10→21:28)
--- NOTE | 2018-12-25 13:09 | CONS ---
Assessment/Plan Assessment/Plan Hospital Course (Demo Recall) No acute events overnight patient is alert looks comfortable, at bedside Antimicrobials: Cancidas, Invanz Microbiology: Blood culture on admission grew Klebsiella ESBL, repeat blood c ultures negative, left thigh wound culture grew Klebsiella ESBL and Leah albicans Allergy: Zosyn, vancomycin Indwelling: Right upper thigh Davie catheter, left femoral triple-lumen catheter, trach Physical examination: This is a chronically ill-appearing cachectic middle-aged woman who is laying comfortably in bed. Head atraumatic normocephalic. Neck is supple. Chest rise symmetrical. Breath sounds diminished bases. Heart: S1-S2, irreg. Abdomen distended. Bowel sounds hypoactive. Extremities with bilateral edema, cyanotic, multiple ecchymotic areas and bruises, left upper thigh dressing present Assessment: 1. Sepsis 2. Acute hypoxemic respiratory failure secondary to CHF exacerbation/probable pneumonia 3. Status post Klebsiella ESBL bacteremia likely 2 to #4 4. 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 End-stage renal disease, hemodialysis dependent 6. Atrial fibrillation/PPM 7. Unstageable sacral decubitus 8. History of peritoneal dialysis with peritoneal dialysis still in place 9. Ascites status post paracentesis 10. Failure to thrive 11. Thrombocytopenia 12. S/p B mastoiditis and acute sinusitis Plan: Remains unchanged, off Amiodarone, will change Cancidas to PO Diflucan, continue antibiotics indefinitely for infected graft, dc planning, prognosis poor Consultation Date/Type/Reason Admit Date/Time Nov 21, 2018 at 04:53 Initial Consult Date Type of Consult id Requesting Provider: RIKA STOCK Date/Time of Note DATE: 12/25/18 TIME: 13:08 Exam/Review of Systems Exam Vitals Vital Signs Date Temp Pulse Resp B/P (MAP) Pulse Ox O2 O2 Flow FiO2 Time Delivery Rate 12/25/18 71 12:10 12/25/18 97.3 18 128/63 97 Mechanical 11:28 (84) Ventilator 12/25/18 30 08:00 Intake and Output 12/24/18 12/24/18 12/25/18 1515:00 23:00 07:00 IntakeIntake Total 340 ml OutputOutput Total 200 ml 1120 ml BalanceBalance -200 ml -780 ml Results Result Diagram: 12/23/18 0614 Medications Medication Current Medications Caspofungin 50 mg/ Sodium Chloride 250 ml @ 250 mls/hr Q24H IVPB Last administered on 12/24/18 13:13; Admin Dose 250 MLS/HR; Start 11/24/18 at 13:00 Miscellaneous Information 1 ea NOTE XX ; Start 11/23/18 at 13:30 Glucose (Glutose) 15 gm Q15M PRN PO DECREASED GLUCOSE; Start 11/23/18 at 13:30 Glucose (Glutose) 22.5 gm Q15M PRN PO DECREASED GLUCOSE; Start 11/23/18 at 13:30 Dextrose (D50w Syringe) 25 ml Q15M PRN IV DECREASED GLUCOSE Last administered on 12/09/18 13:59; Admin Dose 25 ML; Start 11/23/18 at 13:30 Dextrose (D50w Syringe) 50 ml Q15M PRN IV DECREASED GLUCOSE Last administered on 12/10/18 13:14; Admin Dose 50 ML; Start 11/23/18 at 13:30 Glucagon (Glucagen) 1 mg Q15M PRN IM DECREASED GLUCOSE; Start 11/23/18 at 13:30 Glucose (Glutose) 15 gm Q15M PRN BUCCAL DECREASED GLUCOSE; Start 11/23/18 at 13:30 Alteplase, Recombinant (Cathflo (Activase)) 2 mg MAY REPEAT X1 PRN CATHETER IF CATHETER REMAINS OCCULUDED Last administered on 12/02/18 15:47; Admin Dose 2 MG; Start 11/26/18 at 03:00 Albumin Human 100 ml @ 100 mls/hr DURING DIALYSIS PRN IV HYPOTENSION DURING HD Last administered on 12/24/18 18:56; Admin Dose 100 MLS/HR; Start 11/26/18 at 14:00 Levothyroxine Sodium (Synthroid) 75 mcg BEFORE BREAKFAST NGT Last administered on 12/25/18 06:24; Admin Dose 75 MCG; Start 11/29/18 at 07:00 Collagenase (Santyl) 1 applic DAILY TOP Last administered on 12/25/18 10:09; Admin Dose 1 APPLIC; Start 12/01/18 at 16:30 Acetaminophen (Tylenol Liquid) 650 mg Q6H PRN NGT PAIN LEVEL 1-3 OR FEVER Last administered on 12/21/18 20:18; Admin Dose 650 MG; Start 12/06/18 at 09:00 Midodrine (Proamatine) 5 mg TID@,,17 GTB Last administered on 12/24/18 19:11; Admin Dose 5 MG; Start 12/07/18 at 09:00 Epoetin Margarito-epbx (RETACRIT(esrd)) 10,000 unit MoWeFr@1700 SC Last administered on 12/23/18 17:37; Admin Dose 10,000 UNIT; Start 12/11/18 at 17:00 Eye Lubricant (Artificial Tears Oph) 2 drop QID BOTH EYES Last administered on 12/25/18 10:10; Admin Dose 2 DROP; Start 12/10/18 at 09:00 Ertapenem 0.5 gm/ Sodium Chloride 100 ml @ 200 mls/hr Q24H IVPB Last administered on 12/23/18 17:21; Admin Dose 200 MLS/HR; Start 12/15/18 at 18:00 Lorazepam (Ativan) 1 mg Q4H PRN IV AGITATION/ANXIETY Last administered on 12/19/18 05:41; Admin Dose 1 MG; Start 12/15/18 at 11:00 Morphine Sulfate (morphine) 1 mg Q4H PRN IV SEVERE PAIN LEVEL 7-10 Last administered on 12/19/18 03:37; Admin Dose 1 MG; Start 12/15/18 at 11:00 Metoclopramide HCl (Reglan) 5 mg Q8 IV Last administered on 12/25/18 06:24; Ad min Dose 5 MG; Start 12/17/18 at 12:00 Miscellaneous Information 1 ea BID XX ; Start 12/21/18 at 15:00 Miscellaneous Information 1 ea BID XX ; Start 12/23/18 at 14:00 Methylprednisolone Sodium Succinate (Solu-Medrol) 40 mg Q12H IV Last administered on 12/25/18 06:23; Admin Dose 40 MG; Start 12/24/18 at 18:00 Albuterol (Proventil 0.083% (Neb)) 1.25 mg Q4H RESP THERAPY HHN Last administered on 12/25/18 08:44; Admin Dose 1.25 MG; Start 12/25/18 at 01:00 KELSIE ELY NP December 25, 2018 13:09
--- NOTE | 2018-12-25 14:24 | CONS ---
Consult Date/Type/Reason Admit Date/Time Nov 21, 2018 at 04:53 Initial Consult Date Type of Consult Pulmonary Requesting Provider: RIKA STOCK Date/Time of Note DATE: 12/25/18 TIME: 14:24 Subjective Patient is comfortable this morning. Objective Vital Signs Date Temp Pulse Resp B/P (MAP) Pulse Ox O2 O2 Flow FiO2 Time Delivery Rate 12/25/18 71 12:10 12/25/18 97.3 18 128/63 97 Mechanical 11:28 (84) Ventilator 12/25/18 30 08:00 Intake and Output 12/24/18 12/24/18 12/25/18 1515:00 23:00 07:00 IntakeIntake Total 340 ml OutputOutput Total 200 ml 1120 ml BalanceBalance -200 ml -780 ml Exam GENERAL: Thin cachectic lady on mechanical ventilation via tracheostomy VITAL SIGNS: per chart NECK: Supple. No JVD or lymphadenopathy. CARDIAC EXAM: S1, S2. No added sounds or murmurs. CHEST: clear bilaterally, No added sounds, rales or wheezes ABDOMEN: Soft, nontender. No guarding or rebound. EXTREMITIES: No cyanosis, clubbing or edema. NEUROLOGIC: Generalized weakness. No focal deficits. Vent Setting Ventilator Support Mode: AC Fraction of Inspired Oxygen pe: 30 Positive End Expiratory Pressu: 5.0 Results/Medications Result Diagram: 12/23/18 0614 Medications Current Medications Glucose (Glutose) 15 gm Q15M PRN PO DECREASED GLUCOSE; Start 11/23/18 at 13:30 Glucose (Glutose) 22.5 gm Q15M PRN PO DECREASED GLUCOSE; Start 11/23/18 at 13:30 Dextrose (D50w Syringe) 25 ml Q15M PRN IV DECREASED GLUCOSE Last administered on 12/09/18at 13:59; Admin Dose 25 ML; Start 11/23/18 at 13:30 Dextrose (D50w Syringe) 50 ml Q15M PRN IV DECREASED GLUCOSE Last administered on 12/10/18at 13:14; Admin Dose 50 ML; Start 11/23/18 at 13:30 Glucagon (Glucagen) 1 mg Q15M PRN IM DECREASED GLUCOSE; Start 11/23/18 at 13:30 Glucose (Glutose) 15 gm Q15M PRN BUCCAL DECREASED GLUCOSE; Start 11/23/18 at 13:30 Alteplase, Recombinant (Cathflo (Activase)) 2 mg MAY REPEAT X1 PRN CATHETER IF CATHETER REMAINS OCCULUDED Last administered on 12/02/18 15:47; Admin Dose 2 MG; Start 11/26/18 at 03:00 Albumin Human 100 ml @ 100 mls/hr DURING DIALYSIS PRN IV HYPOTENSION DURING HD Last administered on 12/24/18 18:56; Admin Dose 100 MLS/HR; Start 11/26/18 at 14:00 Levothyroxine Sodium (Synthroid) 75 mcg BEFORE BREAKFAST NGT Last administered on 12/25/18 06:24; Admin Dose 75 MCG; Start 11/29/18 at 07:00 Collagenase (Santyl) 1 applic DAILY TOP Last administered on 12/25/18 10:09; Admin Dose 1 APPLIC; Start 12/01/18 at 16:30 Acetaminophen (Tylenol Liquid) 650 mg Q6H PRN NGT PAIN LEVEL 1-3 OR FEVER Last administered on 12/21/18 20:18; Admin Dose 650 MG; Start 12/06/18 at 09:00 Midodrine (Proamatine) 5 mg TID@,,17 GTB Last administered on 12/24/18 19:11; Admin Dose 5 MG; Start 12/07/18 at 09:00 Epoetin Margarito-epbx (RETACRIT(esrd)) 10,000 unit MoWeFr@1700 SC Last administered on 12/23/18 17:37; Admin Dose 10,000 UNIT; Start 12/11/18 at 17:00 Eye Lubricant (Artificial Tears Oph) 2 drop QID BOTH EYES Last administered on 12/25/18 10:10; Admin Dose 2 DROP; Start 12/10/18 at 09:00 Ertapenem 0.5 gm/ Sodium Chloride 100 ml @ 200 mls/hr Q24H IVPB Last administered on 12/23/18 17:21; Admin Dose 200 MLS/HR; Start 12/15/18 at 18:00 Lorazepam (Ativan) 1 mg Q4H PRN IV AGITATION/ANXIETY Last administered on 12/19/18 05:41; Admin Dose 1 MG; Start 12/15/18 at 11:00 Morphine Sulfate (morphine) 1 mg Q4H PRN IV SEVERE PAIN LEVEL 7-10 Last administered on 5/11/19at 03:37; Admin Dose 1 MG; Start 12/15/18 at 11:00 Metoclopramide HCl (Reglan) 5 mg Q8 IV Last administered on 12/25/18at 06:24; Admin Dose 5 MG; Start 12/17/18 at 12:00 Miscellaneous Information 1 ea BID XX ; Start 12/21/18 at 15:00 Miscellaneous Information 1 ea BID XX ; Start 12/23/18 at 14:00 Methylprednisolone Sodium Succinate (Solu-Medrol) 40 mg Q12H IV Last administered on 12/25/18at 06:23; Admin Dose 40 MG; Start 12/24/18 at 18:00 Albuterol (Proventil 0.083% (Neb)) 1.25 mg Q4H RESP THERAPY HHN Last administered on 12/25/18at 13:21; Admin Dose 1.25 MG; Start 12/25/18 at 01:00 Fluconazole (Diflucan) 100 mg DAILY PO ; Start 12/25/18 at 13:30 Assessment/Plan Hospital Course (Demo Recall) IMP: 1. Ventilator-dependent respiratory failure, status post tracheostomy. 2. Gram-negative sepsis. 3. End-stage renal disease on hemodialysis. 4. Cardiomyopathy. 5. Thrombocytopenia. 6. Anemia. 7. Status post septic shock. RECS: 1. Continue vent support--hold off on weaning for now. 2. Continue antibiotics as per ID 3. Hemodialysis per nephrology DC planning Discussed with case management [facility]ORRIS MD, [facility] December 25, 2018 14:24
[2018-12-25] MEDS: FLUCONAZOLE 100 MG TAB PO SCH (14:25)
--- NOTE | 2018-12-25 16:08 | PN ---
Date/Time of Note Date/Time of Note DATE: 12/25/18 TIME: 16:08 Assessment/Plan Lines/Catheters IV Catheter Type (from Nrsg): Mid Line Moon in Place (from Nrsg): No Assessment/Plan Assessment/Plan Status post tracheostomy Patient site clean No bleeding Continue vent support Pulmonary toilet Discussed with staff Subjective 24 Hr Interval Summary Constitutional: improved Pain Control: mild Exam/Review of Systems Vital Signs Vitals Vital Signs Date Temp Pulse Resp B/P (MAP) Pulse Ox O2 O2 Flow FiO2 Time Delivery Rate 12/25/18 97.5 101 20 111/51 100 Mechanical 15:23 (71) Ventilator 12/25/18 35 15:04 Intake and Output 12/24/18 12/24/18 12/25/18 1414:59 22:59 06:59 IntakeIntake Total 340 ml OutputOutput Total 200 ml 1120 ml BalanceBalance -200 ml -780 ml Exam Eyes: nl conjunctiva, EOMI, nl lids, nl sclera ENMT: nl external ears & nose, nl lips & teeth, nl nasal mucosa & septum, mucosa pink and moist Neck: supple, non-tender Respiratory: clear to auscultation, normal air movement Cardiovascular: regular rate and rhythm, nl pulses Gastrointestinal: soft, nl liver, spleen, non-tender Musculoskeletal: nl extremities to inspection, nl gait and stance Results Result Diagram: 12/23/18 0614 TAE PAN MD December 25, 2018 16:08
[2018-12-25] MEDS: (Nursing Note) XX SCH ×4 (16:20→21:00)
[2018-12-25] MEDS: ERTAPENEM SODIUM 0.5 GM in SOD CHLORIDE 0.9% 100 ML IVPB SCH (17:25)
[2018-12-25] MEDS: EPOETIN ALFA-EPBX (ESRD) 10,000 UNIT/ML VIAL SC SCH (17:27)
[2018-12-26] VITALS (34 sets, daily range): BP systolic 87–159; BP diastolic 46–77; PULSE 72–106; RESP 18–25
[2018-12-26] MEDS: ALBUTEROL 0.083% (NEB) 2.5 MG/3 ML AMP HHN SCH ×6 (01:14→21:53)
[2018-12-26] MEDS: LEVOTHYROXINE 75 MCG TAB NGT SCH (06:13)
[2018-12-26] MEDS: METHYLPREDNISOLONE 40 MG INJ IV SCH ×2 (06:13→17:26)
[2018-12-26] MEDS: METOCLOPRAMIDE 10 MG INJ IV SCH ×3 (06:13→21:33)
[2018-12-26] MEDS: ALBUMIN HUMAN 25% 100 ML IV PRN ×2 (07:44→08:35)
[2018-12-26] MEDS: COLLAGENASE 5 GM (UD JAR) TOP SCH (08:50)
[2018-12-26] MEDS: MIDODRINE 5 MG TAB GTB SCH ×3 (08:50→16:50)
[2018-12-26] MEDS: FLUCONAZOLE 100 MG TAB PO SCH (08:50)
[2018-12-26] MEDS: (Nursing Note) XX SCH ×4 (08:51→21:00)
[2018-12-26] MEDS: ARTIFICIAL TEARS 15 ML OPH BOTH EYES SCH ×4 (08:51→21:32)
[2018-12-26] MEDS: BALSAM PERU/CASTOR OIL 60 GM TUBE TOP SCH ×4 (08:51→21:31)
--- NOTE | 2018-12-26 09:38 | PN ---
DATE: 12/26/2018 SUBJECTIVE: The patient is stable, no events overnight. No hemoptysis, hematemesis or hematochezia. OBJECTIVE: VITAL SIGNS: Blood pressure 100/53, pulse 81, respirations 20, temperature 97.3. HEENT: Head is normocephalic. NECK: Supple. HEART: Regular rate. LUNGS: Show diminished breath sounds at the base. ABDOMEN: Soft, nontender to palpation without rebound or guarding. EXTREMITIES: Negative for clubbing, cyanosis. Positive edema. DERMATOLOGIC: No rashes. MUSCULOSKELETAL: No joint effusions. NEUROLOGIC: No change in exam. MEDICATIONS: The patient's medications have been reviewed. LABORATORY DATA: Has been reviewed. ASSESSMENT AND PLAN: 1. End-stage renal disease. Plan is for hemodialysis today. We will dialyze 3 hours 2k bath, calci um 2.5. 2. Volume overload, anasarca. Continue ultrafiltration dialysis. 3. Anemia. Monitor hemoglobin and hematocrit levels. Continue Epogen. 4. Mineral bone disorder, monitor calcium and phosphorus levels. 5. Ventilator-dependent respiratory failure. Vent settings have been reviewed. Continue to monitor . Follow up with pulmonary. 6. Chronic encephalopathy, stable. 7. Sepsis, status post shock. The patient is completing antibiotic course. 8. Hypothyroidism. Continue Synthroid. 9. Dysphagia. Continue tube feeding. 10. Arrhythmia. Continue amiodarone. 11. Lower extremity wounds. Continue wound care. 12. Status post cardiopulmonary arrest. Dictated By: SARIKA CRAIG/NTS Conf#: [id number] DID#: [id number] CC: MANDY BATES MD;*EndCC*
[2018-12-26] MEDS ORDERED: POTASSIUM CHLORIDE (SR) 20 MEQ TAB PO ONE (10:00)
--- NOTE | 2018-12-26 11:45 | CONS ---
Consult Date/Type/Reason Admit Date/Time Nov 21, 2018 at 04:53 Initial Consult Date Type of Consult Pulmonary Requesting Provider: RIKA STOCK Date/Time of Note DATE: 12/26/18 TIME: 11:36 Subjective Patient appears comfortable. No new events. Objective Vital Signs Date Temp Pulse Resp B/P (MAP) Pulse Ox O2 O2 Flow FiO2 Time Delivery Rate 12/26/18 78 10:38 12/26/18 22 98 30 09:28 12/26/18 97.3 100/53 07:38 (69) 12/26/18 Mechanical 07:35 Ventilator Intake and Output 12/25/18 12/25/18 12/26/18 1515:00 23:00 07:00 IntakeIntake Total 400 ml OutputOutput Total 100 ml BalanceBalance 300 ml Exam GENERAL: Thin cachectic lady on mechanical ventilation via tracheostomy VITAL SIGNS: per chart NECK: Supple. No JVD or lymphadenopathy. CARDIAC EXAM: S1, S2. No added sounds or murmurs. CHEST: clear bilaterally, No added sounds, rales or wheezes ABDOMEN: Soft, nontender. No guarding or rebound. EXTREMITIES: No cyanosis, clubbing or edema. NEUROLOGIC: Generalized weakness. No focal deficits. Vent Setting Ventilator Support Mode: AC Fraction of Inspired Oxygen pe: 30 Positive End Expiratory Pressu: 5.0 Results/Medications Result Diagram: 12/26/1872712/26/18727 Results 24 hrs Laboratory Tests Test 12/26/18 07:28 White Blood Count 11.4 #H Red Blood Count 2.04 #L Hemoglobin 6.5 *L Hematocrit 19.3 #L Mean Corpuscular Volume 94.6 Mean Corpuscular Hemoglobin 31.9 Mean Corpuscular Hemoglobin Concent 33.7 Red Cell Distribution Width 20.0 H Platelet Count 20 #*L Mean Platelet Volume Immature Granulocytes % 0.400 Neutrophils % Segmented Neutrophils % (Manual) 84 H Band Neutrophils % (Manual) 6 H Lymphocytes % Lymphocytes % (Manual) 4 L Monocytes % Monocytes % (Manual) 3 Eosinophils % Eosinophils % (Manual) 3 Basophils % Nucleated Red Blood Cells % 0.0 Immature Granulocytes # 0.040 H Neutrophils # Neutrophils # (Manual) 9.6 H Band Neutrophils # 0.6 Lymphocytes (Manual) 0.4 L Lymphocytes # Monocytes # Monocytes # (Manual) 0.3 Eosinophils # Basophils # Nucleated Red Blood Cells # Platelet Estimate SIG DECREASED Giant Platelets 5 H Hypochromasia 1+ Poikilocytosis 1+ Anisocytosis 2+ Ovalocytes 1+ Schistocytes 1+ Sodium Level 139 Potassium Level 2.9 *L Chloride Level 105 Carbon Dioxide Level 22 Anion Gap 12 Blood Urea Nitrogen 59 H Creatinine 0.98 Est Glomerular Filtrat Rate mL/min 58 L Glucose Level 119 Calcium Level 8.1 L Phosphorus Level 2.7 Magnesium Level 1.8 Medications Current Medications Glucose (Glutose) 15 gm Q15M PRN PO DECREASED GLUCOSE; Start 11/23/18 at 13:30 Glucose (Glutose) 22.5 gm Q15M PRN PO DECREASED GLUCOSE; Start 11/23/18 at 13:30 Dextrose (D50w Syringe) 25 ml Q15M PRN IV DECREASED GLUCOSE Last administered on 12/09/18 13:59; Admin Dose 25 ML; Start 11/23/18 at 13:30 Dextrose (D50w Syringe) 50 ml Q15M PRN IV DECREASED GLUCOSE Last administered on 12/10/18 13:14; Admin Dose 50 ML; Start 11/23/18 at 13:30 Glucagon (Glucagen) 1 mg Q15M PRN IM DECREASED GLUCOSE; Start 11/23/18 at 13:30 Glucose (Glutose) 15 gm Q15M PRN BUCCAL DECREASED GLUCOSE; Start 11/23/18 at 13:30 Alteplase, Recombinant (Cathflo (Activase)) 2 mg MAY REPEAT X1 PRN CATHETER IF CATHETER REMAINS OCCULUDED Last administered on 12/02/18 15:47; Admin Dose 2 MG; Start 11/26/18 at 03:00 Albumin Human 100 ml @ 100 mls/hr DURING DIALYSIS PRN IV HYPOTENSION DURING HD Last administered on 12/26/18 08:35; Admin Dose 100 MLS/HR; Start 11/26/18 at 14:00 Levothyroxine Sodium (Synthroid) 75 mcg BEFORE BREAKFAST NGT Last administered on 12/26/18 06:13; Admin Dose 75 MCG; Start 11/29/18 at 07:00 Collagenase (Santyl) 1 applic DAILY TOP Last administered on 12/26/18 08:50; Admin Dose 1 APPLIC; Start 12/01/18 at 16:30 Acetaminophen (Tylenol Liquid) 650 mg Q6H PRN NGT PAIN LEVEL 1-3 OR FEVER Last administered on 12/21/18 20:18; Admin Dose 650 MG; Start 12/06/18 at 09:00 Midodrine (Proamatine) 5 mg TID@,,17 GTB Last administered on 12/26/18 08:50; Admin Dose 5 MG; Start 12/07/18 at 09:00 Epoetin Margarito-epbx (RETACRIT(esrd)) 10,000 unit MoWeFr@1700 SC Last administered on 12/25/18 17:27; Admin Dose 10,000 UNIT; Start 12/11/18 at 17:00 Eye Lubricant (Artificial Tears Oph) 2 drop QID BOTH EYES Last administered on 12/26/18 08:51; Admin Dose 2 DROP; Start 12/10/18 at 09:00 Ertapenem 0.5 gm/ Sodium Chloride 100 ml @ 200 mls/hr Q24H IVPB Last administered on 12/25/18 17:25; Admin Dose 200 MLS/HR; Start 12/15/18 at 18:00 Lorazepam (Ativan) 1 mg Q4H PRN IV AGITATION/ANXIETY Last administered on 05:41; Admin Dose 1 MG; Start 12/15/18 at 11:00 Morphine Sulfate (morphine) 1 mg Q4H PRN IV SEVERE PAIN LEVEL 7-10 Last administered on 12/19/18 03:37; Admin Dose 1 MG; Start 12/15/18 at 11:00 Metoclopramide HCl (Reglan) 5 mg Q8 IV Last administered on 12/26/18 06:13; Admin Dose 5 MG; Start 12/17/18 at 12:00 Miscellaneous Information 1 ea BID XX Last administered on 12/25/18 16:20; Adm in Dose 1 EA; Start 12/21/18 at 15:00 Miscellaneous Information 1 ea BID XX ; Start 12/23/18 at 14:00 Methylprednisolone Sodium Succinate (Solu-Medrol) 40 mg Q12H IV Last administered on 12/26/18 06:13; Admin Dose 40 MG; Start 12/24/18 at 18:00 Albuterol (Proventil 0.083% (Neb)) 1.25 mg Q4H RESP THERAPY HHN Last administered on 5/18/19at 09:28; Admin Dose 1.25 MG; Start 12/25/18 at 01:00 Fluconazole (Diflucan) 100 mg DAILY PO Last administered on 12/26/18at 08:50; Admin Dose 100 MG; Start 12/25/18 at 13:30 Assessment/Plan Hospital Course (Demo Recall) IMP: 1. Ventilator-dependent respiratory failure, status post tracheostomy. 2. Gram-negative sepsis. 3. End-stage renal disease on hemodialysis. 4. Cardiomyopathy. 5. Thrombocytopenia. 6. Anemia. 7. Status post septic shock. RECS: 1. Continue vent support--hold off on weaning for now. 2. Continue antibiotics as per ID 3. Hemodialysis per nephrology 4. Consider transfusion packed red blood cells 5. Replace potassium DC planning Discussed with case management NINA MORRIS MD, [facility] December 26, 2018 11:45
--- NOTE | 2018-12-26 12:54 | CONS ---
Consultation Date/Type/Reason Admit Date/Time Nov 21, 2018 at 04:53 Initial Consult Date 12/08/18 Type of Consult SUBJECTIVE: Pt is awake, alert, afebrile. No acute events overnight. VS: stable: T: 97.4 LABS: Reviewed. WBC- 11.4-Improving Antimicrobials: Cancidas, Invanz Microbiology: Blood culture on admission grew Klebsiella ESBL, repeat blood cultures negative, left thigh wound culture grew Klebsiella ESBL and Leah albicans Allergy: Zosyn, vancomycin Indwelling: Right upper thigh Davie catheter, left femoral triple-lumen catheter, trach Physical examination: GEN: This is a chronically ill-appearing cachectic middle-aged woman, who is laying comfortably in bed. HENT: Head atraumatic normocephalic. Neck is supple. PULM:Chest rise symmetrical. Breath sounds diminished bases. Heart: S1-S2, irreg. Abdomen distended. Bowel sounds hypoactive. Extremities with bilateral edema, cyanotic, multiple ecchymotic areas and bruises, left upper thigh dressing present Assessment: 1. Sepsis 2. Acute hypoxemic respiratory failure secondary to CHF exacerbation/probable pneumonia 3. Status post Klebsiella ESBL bacteremia likely 2 to #4 4. 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 End-stage renal disease, hemodialysis dependent 6. Atrial fibrillation/PPM 7. Unstageable sacral decubitus 8. History of peritoneal dialysis with peritoneal dialysis still in place 9. Ascites status post paracentesis 10. Failure to thrive 11. Thrombocytopenia 12. S/p B mastoiditis and acute sinusitis Plan: Remains unchanged. Continue PO Diflucan and antibiotics indefinitely for infected graft. Poor prognosis. I Requesting Provider: RIKA STOCK Date/Time of Note DATE: 12/26/18 TIME: 12:50 Exam/Review of Systems Exam Vitals Vital Signs Date Temp Pulse Resp B/P (MAP) Pulse Ox O2 O2 Flow FiO2 Time Delivery Rate 12/26/18 30 12:00 12/26/18 97.4 75 20 120/60 94 11:38 (80) 12/26/18 Mechanical 07:35 Ventilator Intake and Output 12/25/18 12/25/18 12/26/18 1515:00 23:00 07:00 IntakeIntake Total 400 ml OutputOutput Total 100 ml BalanceBalance 300 ml Results Result Diagram: 12/26/18 0728 12/26/18 0728 Results 24hrs Laboratory Tests Test 12/26/18 07:28 White Blood Count 11.4 #H Red Blood Count 2.04 #L Hemoglobin 6.5 *L Hematocrit 19.3 #L Mean Corpuscular Volume 94.6 Mean Corpuscular Hemoglobin 31.9 Mean Corpuscular Hemoglobin Concent 33.7 Red Cell Distribution Width 20.0 H Platelet Count 20 #*L Mean Platelet Volume Immature Granulocytes % 0.400 Neutrophils % Segmented Neutrophils % (Manual) 84 H Band Neutrophils % (Manual) 6 H Lymphocytes % Lymphocytes % (Manual) 4 L Monocytes % Monocytes % (Manual) 3 Eosinophils % Eosinophils % (Manual) 3 Basophils % Nucleated Red Blood Cells % 0.0 Immature Granulocytes # 0.040 H Neutrophils # Neutrophils # (Manual) 9.6 H Band Neutrophils # 0.6 Lymphocytes (Manual) 0.4 L Lymphocytes # Monocytes # Monocytes # (Manual) 0.3 Eosinophils # Basophils # Nucleated Red Blood Cells # Platelet Estimate SIG DECREASED Giant Platelets 5 H Hypochromasia 1+ Poikilocytosis 1+ Anisocytosis 2+ Ovalocytes 1+ Schistocytes 1+ Sodium Level 139 Potassium Level 2.9 *L Chloride Level 105 Carbon Dioxide Level 22 Anion Gap 12 Blood Urea Nitrogen 59 H Creatinine 0.98 Est Glomerular Filtrat Rate mL/min 58 L Glucose Level 119 Calcium Level 8.1 L Phosphorus Level 2.7 Magnesium Level 1.8 Medications Medication Current Medications Glucose (Glutose) 15 gm Q15M PRN PO DECREASED GLUCOSE; Start 11/23/18 at 13:30 Glucose (Glutose) 22.5 gm Q15M PRN PO DECREASED GLUCOSE; Start 11/23/18 at 13:30 Dextrose (D50w Syringe) 25 ml Q15M PRN IV DECREASED GLUCOSE Last administered on 12/09/18at 13:59; Admin Dose 25 ML; Start 11/23/18 at 13:30 Dextrose (D50w Syringe) 50 ml Q15M PRN IV DECREASED GLUCOSE Last administered on 12/10/18at 13:14; Admin Dose 50 ML; Start 11/23/18 at 13:30 Glucagon (Glucagen) 1 mg Q15M PRN IM DECREASED GLUCOSE; Start 11/23/18 at 13:30 Glucose (Glutose) 15 gm Q15M PRN BUCCAL DECREASED GLUCOSE; Start 11/23/18 at 13:30 Alteplase, Recombinant (Cathflo (Activase)) 2 mg MAY REPEAT X1 PRN CATHETER IF CATHETER REMAINS OCCULUDED Last administered on 12/02/18 15:47; Admin Dose 2 MG; Start 11/26/18 at 03:00 Albumin Human 100 ml @ 100 mls/hr DURING DIALYSIS PRN IV HYPOTENSION DURING HD Last administered on 12/26/18 08:35; Admin Dose 100 MLS/HR; Start 11/26/18 at 14:00 Levothyroxine Sodium (Synthroid) 75 mcg BEFORE BREAKFAST NGT Last administered on 12/26/18 06:13; Admin Dose 75 MCG; Start 11/29/18 at 07:00 Collagenase (Santyl) 1 applic DAILY TOP Last administered on 12/26/18 08:50; Admin Dose 1 APPLIC; Start 12/01/18 at 16:30 Acetaminophen (Tylenol Liquid) 650 mg Q6H PRN NGT PAIN LEVEL 1-3 OR FEVER Last administered on 12/21/18 20:18; Admin Dose 650 MG; Start 12/06/18 at 09:00 Midodrine (Proamatine) 5 mg TID@,13,17 GTB Last administered on 12/26/18 12:16; Admin Dose 5 MG; Start 12/07/18 at 09:00 Epoetin Margarito-epbx (RETACRIT(esrd)) 10,000 unit MoWeFr@1700 SC Last administered on 12/25/18 17:27; Admin Dose 10,000 UNIT; Start 12/11/18 at 17:00 Eye Lubricant (Artificial Tears Oph) 2 drop QID BOTH EYES Last administered on 12/26/18 12:17; Admin Dose 2 DROP; Start 12/10/18 at 09:00 Ertapenem 0.5 gm/ Sodium Chloride 100 ml @ 200 mls/hr Q24H IVPB Last administered on 12/25/18 17:25; Admin Dose 200 MLS/HR; Start 12/15/18 at 18:00 Lorazepam (Ativan) 1 mg Q4H PRN IV AGITATION/ANXIETY Last administered on 12/19/18 05:41; Admin Dose 1 MG; Start 12/15/18 at 11:00 Morphine Sulfate (morphine) 1 mg Q4H PRN IV SEVERE PAIN LEVEL 7-10 Last administered on 12/19/18 03:37; Admin Dose 1 MG; Start 12/15/18 at 11:00 Metoclopramide HCl (Reglan) 5 mg Q8 IV Last administered on 12/26/18 06:13; Admin Dose 5 MG; Start 12/17/18 at 12:00 Miscellaneous Information 1 ea BID XX Last administered on 12/25/18at 16:20; Admin Dose 1 EA; Start 12/21/18 at 15:00 Miscellaneous Information 1 ea BID XX ; Start 12/23/18 at 14:00 Methylprednisolone Sodium Succinate (Solu-Medrol) 40 mg Q12H IV Last administered on 12/26/18 06:13; Admin Dose 40 MG; Start 12/24/18 at 18:00 Albuterol (Proventil 0.083% (Neb)) 1.25 mg Q4H RESP THERAPY HHN Last administered on 12/26/18 12:47; Admin Dose 1.25 MG; Start 12/25/18 at 01:00 Fluconazole (Diflucan) 100 mg DAILY PO Last administered on 12/26/18 08:50; Admin Dose 100 MG; Start 12/25/18 at 13:30 KIARA JACKSON December 26, 2018 12:54
--- NOTE | 2018-12-26 15:12 | PN ---
Date/Time of Note Date/Time of Note DATE: 12/26/18 TIME: 15:12 Assessment/Plan VTE Prophylaxis Risk score (from Nsg)>0 risk: 3 SCD applied (from Ns): Yes Pharmacological prophylaxis: heparin Lines/Catheters IV Catheter Type (from Nrsg): Mid Line Urinary Cath still in place: No Assessment/Plan Hospital Course On MV via trach, apears comfortable, interactive Chronically ill appearing Lungs clear Distended belly, firm masses, G tube in place Mild peripheral edema present LUE wound wrapped 58 yo female with ESRD, cirrohsihs, DMII presents with hypoglycemia, leg infection. Suffered cardiac and respiratory arrest, recovered with good neurologic status however was unable to be weaned from mechanical ventilation and is now s/p trach and PEG. Comfortable on MV chronically Chronic respiratory failure: - MV per pulm via trach Wean steroids off over the next few days Left lower extremity wound - Antibiotics indefniitely per ID ESRD - HD per nephrology Hypothyroidism: - Continue Synthroid Prophylaxis: SCDs DC planning: Ready for discharge to SNF Result Diagram: 12/26/18 0728 12/26/18 0728 Results 24hrs Laboratory Tests Test 12/26/18 07:28 12/26/18 14:13 White Blood Count 11.4 #H Red Blood Count 2.04 #L Hemoglobin 6.5 *L Hematocrit 19.3 #L Mean Corpuscular Volume 94.6 Mean Corpuscular Hemoglobin 31.9 Mean Corpuscular Hemoglobin Concent 33.7 Red Cell Distribution Width 20.0 H Platelet Count 20 #*L Mean Platelet Volume Immature Granulocytes % 0.400 Neutrophils % Segmented Neutrophils % (Manual) 84 H Band Neutrophils % (Manual) 6 H Lymphocytes % Lymphocytes % (Manual) 4 L Monocytes % Monocytes % (Manual) 3 Eosinophils % Eosinophils % (Manual) 3 Basophils % Nucleated Red Blood Cells % 0.0 Immature Granulocytes # 0.040 H Neutrophils # Neutrophils # (Manual) 9.6 H Band Neutrophils # 0.6 Lymphocytes (Manual) 0.4 L Lymphocytes # Monocytes # Monocytes # (Manual) 0.3 Eosinophils # Basophils # Nucleated Red Blood Cells # Platelet Estimate SIG DECREASED Giant Platelets 5 H Hypochromasia 1+ Poikilocytosis 1+ Anisocytosis 2+ Ovalocytes 1+ Schistocytes 1+ Sodium Level 139 Potassium Level 2.9 *L Chloride Level 105 Carbon Dioxide Level 22 Anion Gap 12 Blood Urea Nitrogen 59 H Creatinine 0.98 Est Glomerular Filtrat Rate mL/min 58 L Glucose Level 119 Calcium Level 8.1 L Phosphorus Level 2.7 Magnesium Level 1.8 Bedside Glucose 103 Subjective 24 Hr Interval Summary Free Text/Dictation No change to status Stable on MV Exam/Review of Systems Exam Vitals Vital Signs Date Temp Pulse Resp B/P (MAP) Pulse Ox O2 O2 Flow FiO2 Time Delivery Rate 12/26/18 75 13:02 12/26/18 24 97 30 12:59 12/26/18 97.4 120/60 11:38 (80) 12/26/18 Mechanical 07:35 Ventilator Intake and Output 12/25/18 12/25/18 12/26/18 1515:00 23:00 07:00 IntakeIntake Total 400 ml OutputOutput Total 100 ml BalanceBalance 300 ml Results Results 24hrs Laboratory Tests Test 12/26/18 07:28 12/26/18 14:13 White Blood Count 11.4 #H Red Blood Count 2.04 #L Hemoglobin 6.5 *L Hematocrit 19.3 #L Mean Corpuscular Volume 94.6 Mean Corpuscular Hemoglobin 31.9 Mean Corpuscular Hemoglobin Concent 33.7 Red Cell Distribution Width 20.0 H Platelet Count 20 #*L Mean Platelet Volume Immature Granulocytes % 0.400 Neutrophils % Segmented Neutrophils % (Manual) 84 H Band Neutrophils % (Manual) 6 H Lymphocytes % Lymphocytes % (Manual) 4 L Monocytes % Monocytes % (Manual) 3 Eosinophils % Eosinophils % (Manual) 3 Basophils % Nucleated Red Blood Cells % 0.0 Immature Granulocytes # 0.040 H Neutrophils # Neutrophils # (Manual) 9.6 H Band Neutrophils # 0.6 Lymphocytes (Manual) 0.4 L Lymphocytes # Monocytes # Monocytes # (Manual) 0.3 Eosinophils # Basophils # Nucleated Red Blood Cells # Platelet Estimate SIG DECREASED Giant Platelets 5 H Hypochromasia 1+ Poikilocytosis 1+ Anisocytosis 2+ Ovalocytes 1+ Schistocytes 1+ Sodium Level 139 Potassium Level 2.9 *L Chloride Level 105 Carbon Dioxide Level 22 Anion Gap 12 Blood Urea Nitrogen 59 H Creatinine 0.98 Est Glomerular Filtrat Rate mL/min 58 L Glucose Level 119 Calcium Level 8.1 L Phosphorus Level 2.7 Magnesium Level 1.8 Bedside Glucose 103 Medications Medication Current Medications Glucose (Glutose) 15 gm Q15M PRN PO DECREASED GLUCOSE; Start 11/23/18 at 13:30 Glucose (Glutose) 22.5 gm Q15M PRN PO DECREASED GLUCOSE; Start 11/23/18 at 13:30 Dextrose (D50w Syringe) 25 ml Q15M PRN IV DECREASED GLUCOSE Last administered on 12/09/18 13:59; Admin Dose 25 ML; Start 11/23/18 at 13:30 Dextrose (D50w Syringe) 50 ml Q15M PRN IV DECREASED GLUCOSE Last administered on 12/10/18 13:14; Admin Dose 50 ML; Start 11/23/18 at 13:30 Glucagon (Glucagen) 1 mg Q15M PRN IM DECREASED GLUCOSE; Start 11/23/18 at 13:30 Glucose (Glutose) 15 gm Q15M PRN BUCCAL DECREASED GLUCOSE; Start 11/23/18 at 13:30 Alteplase, Recombinant (Cathflo (Activase)) 2 mg MAY REPEAT X1 PRN CATHETER IF CATHETER REMAINS OCCULUDED Last administered on 12/02/18 15:47; Admin Dose 2 MG; Start 11/26/18 at 03:00 Albumin Human 100 ml @ 100 mls/hr DURING DIALYSIS PRN IV HYPOTENSION DURING HD Last administered on 12/26/18 08:35; Admin Dose 100 MLS/HR; Start 11/26/18 at 14:00 Levothyroxine Sodium (Synthroid) 75 mcg BEFORE BREAKFAST NGT Last administered on 12/26/18 06:13; Admin Dose 75 MCG; Start 11/29/18 at 07:00 Collagenase (Santyl) 1 applic DAILY TOP Last administered on 12/26/18 08:50; Admin Dose 1 APPLIC; Start 12/01/18 at 16:30 Acetaminophen (Tylenol Liquid) 650 mg Q6H PRN NGT PAIN LEVEL 1-3 OR FEVER Last administered on 12/21/18 20:18; Admin Dose 650 MG; Start 12/06/18 at 09:00 Midodrine (Proamatine) 5 mg TID@,,17 GTB Last administered on 12/26/18 12:16; Admin Dose 5 MG; Start 12/07/18 at 09:00 Epoetin Margarito-epbx (RETACRIT(esrd)) 10,000 unit MoWeFr@1700 SC Last administered on 12/25/18 17:27; Admin Dose 10,000 UNIT; Start 12/11/18 at 17:00 Eye Lubricant (Artificial Tears Oph) 2 drop QID BOTH EYES Last administered on 12/26/18 12:17; Admin Dose 2 DROP; Start 12/10/18 at 09:00 Ertapenem 0.5 gm/ Sodium Chloride 100 ml @ 200 mls/hr Q24H IVPB Last administered on 12/25/18 17:25; Admin Dose 200 MLS/HR; Start 12/15/18 at 18:00 Lorazepam (Ativan) 1 mg Q4H PRN IV AGITATION/ANXIETY Last administered on 12/19/18 05:41; Admin Dose 1 MG; Start 12/15/18 at 11:00 Morphine Sulfate (morphine) 1 mg Q4H PRN IV SEVERE PAIN LEVEL 7-10 Last administered on 12/19/18 03:37; Admin Dose 1 MG; Start 12/15/18 at 11:00 Metoclopramide HCl (Reglan) 5 mg Q8 IV Last administered on 12/26/18 13:02; Admin Dose 5 MG; Start 12/17/18 at 12:00 Miscellaneous Information 1 ea BID XX Last administered on 12/25/18 16:20; Admin Dose 1 EA; Start 12/21/18 at 15:00 Miscellaneous Information 1 ea BID XX ; Start 12/23/18 at 14:00 Methylprednisolone Sodium Succinate (Solu-Medrol) 40 mg Q12H IV Last administered on 12/26/18 06:13; Admin Dose 40 MG; Start 12/24/18 at 18:00 Albuterol (Proventil 0.083% (Neb)) 1.25 mg Q4H RESP THERAPY HHN Last administered on 12/26/18 12:47; Admin Dose 1.25 MG; Start 12/25/18 at 01:00 Fluconazole (Diflucan) 100 mg DAILY PO Last administered on 12/26/18 08:50; Admin Dose 100 MG; Start 12/25/18 at 13:30 JOSLYN LANDRUM MD December 26, 2018 15:12
[2018-12-26] MEDS: ERTAPENEM SODIUM 0.5 GM in SOD CHLORIDE 0.9% 100 ML IVPB SCH (17:26)
--- NOTE | 2018-12-26 19:51 | CONS ---
Assessment/Plan Assessment/Plan Assessment/Plan (Daily) Patient continues to look extremely debilitated emaciated malnourished and premorbid. I had multiple discussions with family members about at least changing her CODE STATUS they have adamantly refused on each occasion to discuss with me. His overall prognosis is extremely poor and very high risk of rehospitalization sepsis from multiple different sources. Consultation Date/Type/Reason Admit Date/Time Nov 21, 2018 at 04:53 Initial Consult Date Requesting Provider: RIKA MATA Date/Time of Note DATE: 12/26/18 TIME: 19:50 24 HR Interval Summary Free Text/Dictation acute encephalopathy possible multiple causes including acute hypoxic respiratory failure hypoglycemia dementia and delirium currently being worked up by Dr. Mata hypoglycemia left lower extremity wound end-stage renal disease pancytopenia ascites status post pacemaker hypertension malnutrition failure to thrive Exam/Review of Systems Exam Vitals Vital Signs Date Temp Pulse Resp B/P (MAP) Pulse Ox O2 O2 Flow FiO2 Time Delivery Rate 12/26/18 72 18 98 30 17:08 12/26/18 97.4 159/77 15:44 (104) 12/26/18 Mechanical 07:35 Ventilator Intake and Output 12/25/18 12/25/18 12/26/18 1515:00 23:00 07:00 IntakeIntake Total 400 ml OutputOutput Total 100 ml BalanceBalance 300 ml Results Result Diagram: 12/26/18 0728 12/26/18 0728 Results 24hrs Laboratory Tests Test 12/26/18 07:28 12/26/18 14:13 White Blood Count 11.4 #H Red Blood Count 2.04 #L Hemoglobin 6.5 *L Hematocrit 19.3 #L Mean Corpuscular Volume 94.6 Mean Corpuscular Hemoglobin 31.9 Mean Corpuscular Hemoglobin Concent 33.7 Red Cell Distribution Width 20.0 H Platelet Count 20 #*L Mean Platelet Volume Immature Granulocytes % 0.400 Neutrophils % Segmented Neutrophils % (Manual) 84 H Band Neutrophils % (Manual) 6 H Lymphocytes % Lymphocytes % (Manual) 4 L Monocytes % Monocytes % (Manual) 3 Eosinophils % Eosinophils % (Manual) 3 Basophils % Nucleated Red Blood Cells % 0.0 Immature Granulocytes # 0.040 H Neutrophils # Neutrophils # (Manual) 9.6 H Band Neutrophils # 0.6 Lymphocytes (Manual) 0.4 L Lymphocytes # Monocytes # Monocytes # (Manual) 0.3 Eosinophils # Basophils # Nucleated Red Blood Cells # Platelet Estimate SIG DECREASED Giant Platelets 5 H Hypochromasia 1+ Poikilocytosis 1+ Anisocytosis 2+ Ovalocytes 1+ Schistocytes 1+ Sodium Level 139 Potassium Level 2.9 *L Chloride Level 105 Carbon Dioxide Level 22 Anion Gap 12 Blood Urea Nitrogen 59 H Creatinine 0.98 Est Glomerular Filtrat Rate mL/min 58 L Glucose Level 119 Calcium Level 8.1 L Phosphorus Level 2.7 Magnesium Level 1.8 Bedside Glucose 103 Medications Medication Current Medications Glucose (Glutose) 15 gm Q15M PRN PO DECREASED GLUCOSE; Start 11/23/18 at 13:30 Glucose (Glutose) 22.5 gm Q15M PRN PO DECREASED GLUCOSE; Start 11/23/18 at 13:30 Dextrose (D50w Syringe) 25 ml Q15M PRN IV DECREASED GLUCOSE Last administered on 12/09/18 13:59; Admin Dose 25 ML; Start 11/23/18 at 13:30 Dextrose (D50w Syringe) 50 ml Q15M PRN IV DECREASED GLUCOSE Last administered on 12/10/18at 13:14; Admin Dose 50 ML; Start 11/23/18 at 13:30 Glucagon (Glucagen) 1 mg Q15M PRN IM DECREASED GLUCOSE; Start 11/23/18 at 13:30 Glucose (Glutose) 15 gm Q15M PRN BUCCAL DECREASED GLUCOSE; Start 11/23/18 at 13:30 Alteplase, Recombinant (Cathflo (Activase)) 2 mg MAY REPEAT X1 PRN CATHETER IF CATHETER REMAINS OCCULUDED Last administered on 12/02/18at 15:47; Admin Dose 2 MG ; Start 11/26/18 at 03:00 Albumin Human 100 ml @ 100 mls/hr DURING DIALYSIS PRN IV HYPOTENSION DURING HD Last administered on 12/26/18at 08:35; Admin Dose 100 MLS/HR; Start 11/26/18 at 14:00 Levothyroxine Sodium (Synthroid) 75 mcg BEFORE BREAKFAST NGT Last administered on 12/26/18at 06:13; Admin Dose 75 MCG; Start 11/29/18 at 07:00 Collagenase (Santyl) 1 applic DAILY TOP Last administered on 12/26/18at 08:50; Admin Dose 1 APPLIC; Start 12/01/18 at 16:30 Acetaminophen (Tylenol Liquid) 650 mg Q6H PRN NGT PAIN LEVEL 1-3 OR FEVER Last administered on 12/21/18 20:18; Admin Dose 650 MG; Start 12/06/18 at 09:00 Midodrine (Proamatine) 5 mg TID@09,13,17 GTB Last administered on 12/26/18 12:16; Admin Dose 5 MG; Start 12/07/18 at 09:00 Epoetin Margarito-epbx (RETACRIT(esrd)) 10,000 unit MoWeFr@1700 SC Last administered on 12/25/18 17:27; Admin Dose 10,000 UNIT; Start 12/11/18 at 17:00 Eye Lubricant (Artificial Tears Oph) 2 drop QID BOTH EYES Last administered on 12/26/18 17:26; Admin Dose 2 DROP; Start 12/10/18 at 09:00 Ertapenem 0.5 gm/ Sodium Chloride 100 ml @ 200 mls/hr Q24H IVPB Last ad ministered on 12/26/18 17:26; Admin Dose 200 MLS/HR; Start 12/15/18 at 18:00 Lorazepam (Ativan) 1 mg Q4H PRN IV AGITATION/ANXIETY Last administered on 12/19/18 05:41; Admin Dose 1 MG; Start 12/15/18 at 11:00 Morphine Sulfate (morphine) 1 mg Q4H PRN IV SEVERE PAIN LEVEL 7-10 Last administered on 12/19/18 03:37; Admin Dose 1 MG; Start 12/15/18 at 11:00 Metoclopramide HCl (Reglan) 5 mg Q8 IV Last administered on 12/26/18 13:02; Admin Dose 5 MG; Start 12/17/18 at 12:00 Miscellaneous Information 1 ea BID XX Last administered on 12/25/18 16:20; Admin Dose 1 EA; Start 12/21/18 at 15:00 Miscellaneous Information 1 ea BID XX ; Start 12/23/18 at 14:00 Methylprednisolone Sodium Succinate (Solu-Medrol) 40 mg Q12H IV Last administered on 12/26/18 17:26; Admin Dose 40 MG; Start 12/24/18 at 18:00 Albuterol (Proventil 0.083% (Neb)) 1.25 mg Q4H RESP THERAPY HHN Last administered on 12/26/18at 16:58; Admin Dose 1.25 MG; Start 12/25/18 at 01:00 Fluconazole (Diflucan) 100 mg DAILY PO Last administered on 12/26/18at 08:50; Admin Dose 100 MG; Start 12/25/18 at 13:30 JULIEN SALINAS December 26, 2018 19:51
[2018-12-26] MEDS: ACETAMINOPHEN 650MG/20.3ML CUP NGT PRN (23:53)
[2018-12-27] VITALS (24 sets, daily range): BP systolic 100–148; BP diastolic 56–76; PULSE 76–82; RESP 14–28
[2018-12-27] MEDS: ALBUTEROL 0.083% (NEB) 2.5 MG/3 ML AMP HHN SCH ×6 (01:18→21:06)
[2018-12-27] MEDS: METHYLPREDNISOLONE 40 MG INJ IV SCH (06:10)
[2018-12-27] MEDS: METOCLOPRAMIDE 10 MG INJ IV SCH ×3 (06:10→21:27)
[2018-12-27] MEDS: LEVOTHYROXINE 75 MCG TAB NGT SCH (06:10)
[2018-12-27] MEDS: ACETAMINOPHEN 650MG/20.3ML CUP NGT PRN ×2 (06:21→21:31)
[2018-12-27] MEDS: MIDODRINE 5 MG TAB GTB SCH ×3 (09:00→18:34)
[2018-12-27] MEDS: (Nursing Note) XX SCH ×4 (09:00→21:00)
[2018-12-27] MEDS: ARTIFICIAL TEARS 15 ML OPH BOTH EYES SCH ×4 (09:18→21:31)
[2018-12-27] MEDS: COLLAGENASE 5 GM (UD JAR) TOP SCH (09:19)
[2018-12-27] MEDS: BALSAM PERU/CASTOR OIL 60 GM TUBE TOP SCH ×4 (09:20→21:31)
[2018-12-27] MEDS: FLUCONAZOLE 100 MG TAB PO SCH (09:20)
--- NOTE | 2018-12-27 11:44 | CONS ---
Consult Date/Type/Reason Admit Date/Time Nov 21, 2018 at 04:53 Initial Consult Date Type of Consult Pulmonary Requesting Provider: RIKA STOCK Date/Time of Note DATE: 12/27/18 TIME: 11:43 Objective Vital Signs Date Temp Pulse Resp B/P (MAP) Pulse Ox O2 O2 Flow FiO2 Time Delivery Rate 12/27/18 81 08:00 12/27/18 97.9 18 140/71 100 07:48 (94) 12/27/18 30 05:04 12/26/18 Mechanical 07:35 Ventilator Intake and Output 12/26/18 12/26/18 12/27/18 1515:00 23:00 07:00 IntakeIntake Total 200 ml 320 ml 280 ml OutputOutput Total 2100 ml 30 ml 20 ml BalanceBalance -1900 ml 290 ml 260 ml Vent Setting Ventilator Support Mode: AC Fraction of Inspired Oxygen pe: 30 Positive End Expiratory Pressu: 5.0 Results/Medications Result Diagram: 12/26/18 0728 12/26/18 0728 Results 24 hrs Laboratory Tests Test 12/26/18 14:13 Bedside Glucose 103 Medications Current Medications Glucose (Glutose) 15 gm Q15M PRN PO DECREASED GLUCOSE; Start 11/23/18 at 13:30 Glucose (Glutose) 22.5 gm Q15M PRN PO DECREASED GLUCOSE; Start 11/23/18 at 13:30 Dextrose (D50w Syringe) 25 ml Q15M PRN IV DECREASED GLUCOSE Last administered on 12/09/18at 13:59; Admin Dose 25 ML; Start 11/23/18 at 13:30 Dextrose (D50w Syringe) 50 ml Q15M PRN IV DECREASED GLUCOSE Last administered on 12/10/18at 13:14; Admin Dose 50 ML; Start 11/23/18 at 13:30 Glucagon (Glucagen) 1 mg Q15M PRN IM DECREASED GLUCOSE; Start 11/23/18 at 13:30 Glucose (Glutose) 15 gm Q15M PRN BUCCAL DECREASED GLUCOSE; Start 11/23/18 at 13:30 Alteplase, Recombinant (Cathflo (Activase)) 2 mg MAY REPEAT X1 PRN CATHETER IF CATHETER REMAINS OCCULUDED Last administered on 12/02/18at 15:47; Admin Dose 2 MG; Start 11/26/18 at 03:00 Albumin Human 100 ml @ 100 mls/hr DURING DIALYSIS PRN IV HYPOTENSION DURING HD Last administered on 12/26/18 08:35; Admin Dose 100 MLS/HR; Start 11/26/18 at 14:00 Levothyroxine Sodium (Synthroid) 75 mcg BEFORE BREAKFAST NGT Last administered on 12/27/18 06:10; Admin Dose 75 MCG; Start 11/29/18 at 07:00 Collagenase (Santyl) 1 applic DAILY TOP Last administered on 12/27/18 09:19; Admin Dose 1 APPLIC; Start 12/01/18 at 16:30 Acetaminophen (Tylenol Liquid) 650 mg Q6H PRN NGT PAIN LEVEL 1-3 OR FEVER Last administered on 12/27/18 06:21; Admin Dose 650 MG; Start 12/06/18 at 09:00 Midodrine (Proamatine) 5 mg TID@,13,17 GTB Last administered on 12/26/18 12:16; Admin Dose 5 MG; Start 12/07/18 at 09:00 Epoetin Margarito-epbx (RETACRIT(esrd)) 10,000 unit MoWeFr@1700 SC Last administered on 12/25/18 17:27; Admin Dose 10,000 UNIT; Start 12/11/18 at 17:00 Eye Lubricant (Artificial Tears Oph) 2 drop QID BOTH EYES Last administered on 12/27/18 09:18; Admin Dose 2 DROP; Start 12/10/18 at 09:00 Ertapenem 0.5 gm/ Sodium Chloride 100 ml @ 200 mls/hr Q24H IVPB Last administered on 12/26/18 17:26; Admin Dose 200 MLS/HR; Start 12/15/18 at 18:00 Lorazepam (Ativan) 1 mg Q4H PRN IV AGITATION/ANXIETY Last administered on 12/19/18 05:41; Admin Dose 1 MG; Start 12/15/18 at 11:00 Morphine Sulfate (morphine) 1 mg Q4H PRN IV SEVERE PAIN LEVEL 7-10 Last administered on 12/19/18 03:37; Admin Dose 1 MG; Start 12/15/18 at 11:00 Metoclopramide HCl (Reglan) 5 mg Q8 IV Last administered on 12/27/18 06:10; Admin Dose 5 MG; Start 12/17/18 at 12:00 Miscellaneous Information 1 ea BID XX Last administered on 12/25/18at 16:20; Admin Dose 1 EA; Start 12/21/18 at 15:00 Miscellaneous Information 1 ea BID XX ; Start 12/23/18 at 14:00 Methylprednisolone Sodium Succinate (Solu-Medrol) 40 mg Q12H IV Last administered on 12/27/18at 06:10; Admin Dose 40 MG; Start 12/24/18 at 18:00 Albuterol (Proventil 0.083% (Neb)) 1.25 mg Q4H RESP THERAPY HHN Last administered on 12/27/18at 08:14; Admin Dose 1.25 MG; Start 12/25/18 at 01:00 Fluconazole (Diflucan) 100 mg DAILY PO Last administered on 12/27/18at 09:20; Admin Dose 100 MG; Start 12/25/18 at 13:30 Assessment/Plan Hospital Course (Demo Recall) IMP: 1. Ventilator-dependent respiratory failure, status post tracheostomy. 2. Gram-negative sepsis. 3. End-stage renal disease on hemodialysis. 4. Cardiomyopathy. 5. Thrombocytopenia. 6. Anemia. 7. Status post septic shock. RECS: 1. Continue vent support--hold off on weaning for now. 2. Continue antibiotics as per ID 3. Hemodialysis per nephrology 4. Consider transfusion packed red blood cells 5. Replace potassium DC planning Discussed with case management NINA MORRIS MD, [facility] December 27, 2018 11:44
--- NOTE | 2018-12-27 12:19 | CONS ---
Consultation Date/Type/Reason Admit Date/Time Nov 21, 2018 at 04:53 Initial Consult Date 12/08/18 Type of Consult SUBJECTIVE: Pt is awake, alert, afebrile. No acute events overnight. VS: stable: T: 98.0 LABS: Reviewed. Antimicrobials: Diflucan, Invanz Microbiology: Blood culture on admission grew Klebsiella ESBL, repeat blood cultures negative, left thigh wound culture grew Klebsiella ESBL and Leah albicans Allergy: Zosyn, vancomycin Indwelling: Right upper thigh Davie catheter, left femoral triple-lumen catheter, trach Physical examination: GEN: This is a chronically ill-appearing cachectic middle-aged woman, who is laying comfortably in bed. HENT: Head atraumatic normocephalic. Neck is supple. PULM:Chest rise symmetrical. Breath sounds diminished bases. Heart: S1-S2, irreg. Abdomen distended. Bowel sounds hypoactive. Extremities with bilateral edema, cyanotic, multiple ecchymotic areas and bruises, left upper thigh dressing present Assessment: 1. Sepsis 2. Acute hypoxemic respiratory failure secondary to CHF exacerbation/probable pneumonia 3. Status post Klebsiella ESBL bacteremia likely 2 to #4 4. 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 End-stage renal disease, hemodialysis dependent 6. Atrial fibrillation/PPM 7. Unstageable sacral decubitus 8. History of peritoneal dialysis with peritoneal dialysis still in place 9. Ascites status post paracentesis 10. Failure to thrive 11. Thrombocytopenia 12. S/p B mastoiditis and acute sinusitis Plan: Remains unchanged. Continue current treatment with Diflucan and antibioti cs indefinitely for infected graft. Poor prognosis. I Requesting Provider: RIKA STOCK Date/Time of Note DATE: 12/27/18 TIME: 12:17 Exam/Review of Systems Exam Vitals Vital Signs Date Temp Pulse Resp B/P (MAP) Pulse Ox O2 O2 Flow FiO2 Time Delivery Rate 12/27/18 98.0 81 19 148/76 100 11:47 (100) 12/27/18 30 05:04 12/26/18 Mechanical 07:35 Ventilator Intake and Output 12/26/18 12/26/18 12/27/18 1515:00 23:00 07:00 IntakeIntake Total 200 ml 320 ml 280 ml OutputOutput Total 2100 ml 30 ml 20 ml BalanceBalance -1900 ml 290 ml 260 ml Results Result Diagram: 12/26/18 0728 12/26/18 0728 Results 24hrs Laboratory Tests Test 12/26/18 14:13 Bedside Glucose 103 Medications Medication Current Medications Glucose (Glutose) 15 gm Q15M PRN PO DECREASED GLUCOSE; Start 11/23/18 at 13:30 Glucose (Glutose) 22.5 gm Q15M PRN PO DECREASED GLUCOSE; Start 11/23/18 at 13:30 Dextrose (D50w Syringe) 25 ml Q15M PRN IV DECREASED GLUCOSE Last administered on 12/09/18 13:59; Admin Dose 25 ML; Start 11/23/18 at 13:30 Dextrose (D50w Syringe) 50 ml Q15M PRN IV DECREASED GLUCOSE Last administered on 12/10/18 13:14; Admin Dose 50 ML; Start 11/23/18 at 13:30 Glucagon (Glucagen) 1 mg Q15M PRN IM DECREASED GLUCOSE; Start 11/23/18 at 13:30 Glucose (Glutose) 15 gm Q15M PRN BUCCAL DECREASED GLUCOSE; Start 11/23/18 at 13:30 Alteplase, Recombinant (Cathflo (Activase)) 2 mg MAY REPEAT X1 PRN CATHETER IF CATHETER REMAINS OCCULUDED Last administered on 12/02/18at 15:47; Admin Dose 2 MG; Start 11/26/18 at 03:00 Albumin Human 100 ml @ 100 mls/hr DURING DIALYSIS PRN IV HYPOTENSION DURING HD Last administered on 12/26/18at 08:35; Admin Dose 100 MLS/HR; Start 11/26/18 at 14:00 Levothyroxine Sodium (Synthroid) 75 mcg BEFORE BREAKFAST NGT Last administered on 12/27/18 06:10; Admin Dose 75 MCG; Start 11/29/18 at 07:00 Collagenase (Santyl) 1 applic DAILY TOP Last administered on 12/27/18 09:19; Admin Dose 1 APPLIC; Start 12/01/18 at 16:30 Acetaminophen (Tylenol Liquid) 650 mg Q6H PRN NGT PAIN LEVEL 1-3 OR FEVER Last administered on 12/27/18 06:21; Admin Dose 650 MG; Start 12/06/18 at 09:00 Midodrine (Proamatine) 5 mg TID@,,17 GTB Last administered on 12/26/18 12:16; Admin Dose 5 MG; Start 12/07/18 at 09:00 Epoetin Margarito-epbx (RETACRIT(esrd)) 10,000 unit MoWeFr@1700 SC Last administered on 12/25/18 17:27; Admin Dose 10,000 UNIT; Start 12/11/18 at 17:00 Eye Lubricant (Artificial Tears Oph) 2 drop QID BOTH EYES Last administered on 12/27/18 09:18; Admin Dose 2 DROP; Start 12/10/18 at 09:00 Ertapenem 0.5 gm/ Sodium Chloride 100 ml @ 200 mls/hr Q24H IVPB Last administered on 12/26/18 17:26; Admin Dose 200 MLS/HR; Start 12/15/18 at 18:00 Lorazepam (Ativan) 1 mg Q4H PRN IV AGITATION/ANXIETY Last administered on 12/19/18 05:41; Admin Dose 1 MG; Start 12/15/18 at 11:00 Morphine Sulfate (morphine) 1 mg Q4H PRN IV SEVERE PAIN LEVEL 7-10 Last administered on 12/19/18 03:37; Admin Dose 1 MG; Start 12/15/18 at 11:00 Metoclopramide HCl (Reglan) 5 mg Q8 IV Last administered on 12/27/18 06:10; Admin Dose 5 MG; Start 12/17/18 at 12:00 Miscellaneous Information 1 ea BID XX Last administered on 12/25/18 16:20; Admin Dose 1 EA; Start 12/21/18 at 15:00 Miscellaneous Information 1 ea BID XX ; Start 12/23/18 at 14:00 Methylprednisolone Sodium Succinate (Solu-Medrol) 40 mg Q12H IV Last administered on 12/27/18 06:10; Admin Dose 40 MG; Start 12/24/18 at 18:00 Albuterol (Proventil 0.083% (Neb)) 1.25 mg Q4H RESP THERAPY HHN Last administered on 12/27/18 08:14; Admin Dose 1.25 MG; Start 12/25/18 at 01:00 Fluconazole (Diflucan) 100 mg DAILY PO Last administered on 12/27/18 09:20; Admin Dose 100 MG; Start 12/25/18 at 13:30 KIARA JACKSON December 27, 2018 12:19
--- NOTE | 2018-12-27 12:21 | PN ---
DATE: 12/27/2018 SUBJECTIVE: The patient had hemodialysis today, received a unit of PRBC with dialysis. No other wendie nts noted. OBJECTIVE: VITAL SIGNS: Blood pressure is 140/71, respiration 18, pulse 79, temperature 97.9. HEENT: Head is normocephalic. NECK: Supple. HEART: Regular rate. LUNGS: Show diminished breath sounds at the base. ABDOMEN: Soft, nontender to palpation without rebound or guarding. EXTREMITIES: Negative for clubbing, cyanosis. Positive edema. DERMATOLOGIC: No rashes. MUSCULOSKELETAL: No joint effusions. NEUROLOGIC: No change in exam. MEDICATIONS: The patient's medications have been reviewed. LABORATORY DATA: Has been reviewed. IMAGING STUDIES: Have been reviewed. ASSESSMENT AND PLAN: 1. End-stage renal disease. The patient had hemodialysis yesterday, tolerated well. Plan for dialy sis tomorrow. 2. Volume overload, anasarca. Continue ultrafiltration dialysis. 3. Hyperkalemia. The patient is status post potassium chloride. Continue dialysis on a high potass ium bath. 4. Anemia. Patient is status post blood transfusion, monitor H and H levels. Continue Epogen. 5. Mineral bone disorder, monitor calcium and phosphorus levels. 6. Ventilator dependent respiratory failure. Vent settings have been reviewed. Continue to monitor . Follow up with pulmonary. 7. Chronic encephalopathy, stable. 8. Sepsis, status post shock. The patient is completing antibiotic course. 9. Hypothyroidism. Continue Synthroid. 10. Dysphagia. Continue tube feeding. 11. Arrhythmia. Continue amiodarone. 12. Lower extremity wounds. Continue wound care. 13. Status post cardiopulmonary arrest. Dictated By: SARIKA JOINER DO NR/NTS Conf#: [id number] DID#: [id number] CC: LORRAINE JOHNSON MD; MANDY BATES MD; JOSLYN LANDRUM MD;*EndCC*
--- NOTE | 2018-12-27 13:24 | PN ---
Date/Time of Note Date/Time of Note DATE: 12/27/18 TIME: 13:24 Assessment/Plan VTE Prophylaxis Risk score (from Nsg)>0 risk: 8 SCD applied (from Ns): Yes Pharmacological prophylaxis: heparin Lines/Catheters IV Catheter Type (from Nrsg): Mid Line Urinary Cath still in place: No Assessment/Plan Hospital Course On MV via trach, apears comfortable, interactive Chronically ill appearing Lungs clear Distended belly, firm masses, G tube in place Mild peripheral edema present LUE wound wrapped 58 yo female with ESRD, cirrohsihs, DMII presents with hypoglycemia, leg infection. Suffered cardiac and respiratory arrest, recovered with good neurologic status however was unable to be weaned from mechanical ventilation and is now s/p trach and PEG. Comfortable on MV chronically Chronic respiratory failure: - MV per pulm via trach Wean steroids off over the next few days Left lower extremity wound - Antibiotics indefniitely per ID ESRD - HD per nephrology Hypothyroidism: - Continue Synthroid Anemia of CKD: - Transfuse PRN Prophylaxis: SCDs DC planning: Ready for discharge to SNF Result Diagram: 12/26/18 0728 12/26/18 0728 Results 24hrs Laboratory Tests Test 12/26/18 14:13 Bedside Glucose 103 Subjective 24 Hr Interval Summary Free Text/Dictation HD performed today Received 1 unit PRBCs Exam/Review of Systems Exam Vitals Vital Signs Date Temp Pulse Resp B/P (MAP) Pulse Ox O2 O2 Flow FiO2 Time Delivery Rate 12/27/18 79 12:00 12/27/18 98.0 19 148/76 100 11:47 (100) 12/27/18 30 05:04 12/26/18 Mechanical 07:35 Ventilator Intake and Output 12/26/18 12/26/18 12/27/18 1515:00 23:00 07:00 IntakeIntake Total 200 ml 320 ml 280 ml OutputOutput Total 2100 ml 30 ml 20 ml BalanceBalance -1900 ml 290 ml 260 ml Results Results 24hrs Laboratory Tests Test 12/26/18 14:13 Bedside Glucose 103 Medications Medication Current Medications Glucose (Glutose) 15 gm Q15M PRN PO DECREASED GLUCOSE; Start 11/23/18 at 13:30 Glucose (Glutose) 22.5 gm Q15M PRN PO DECREASED GLUCOSE; Start 11/23/18 at 13:30 Dextrose (D50w Syringe) 25 ml Q15M PRN IV DECREASED GLUCOSE Last administered on 12/09/18 13:59; Admin Dose 25 ML; Start 11/23/18 at 13:30 Dextrose (D50w Syringe) 50 ml Q15M PRN IV DECREASED GLUCOSE Last administered on 12/10/18 13:14; Admin Dose 50 ML; Start 11/23/18 at 13:30 Glucagon (Glucagen) 1 mg Q15M PRN IM DECREASED GLUCOSE; Start 11/23/18 at 13:30 Glucose (Glutose) 15 gm Q15M PRN BUCCAL DECREASED GLUCOSE; Start 11/23/18 at 13:30 Alteplase, Recombinant (Cathflo (Activase)) 2 mg MAY REPEAT X1 PRN CATHETER IF CATHETER REMAINS OCCULUDED Last administered on 12/02/18 15:47; Admin Dose 2 MG; Start 11/26/18 at 03:00 Albumin Human 100 ml @ 100 mls/hr DURING DIALYSIS PRN IV HYPOTENSION DURING HD Last administered on 12/26/18 08:35; Admin Dose 100 MLS/HR; Start 11/26/18 at 14:00 Levothyroxine Sodium (Synthroid) 75 mcg BEFORE BREAKFAST NGT Last administered on 12/27/18 06:10; Admin Dose 75 MCG; Start 11/29/18 at 07:00 Collagenase (Santyl) 1 applic DAILY TOP Last administered on 12/27/18 09:19; Admin Dose 1 APPLIC; Start 12/01/18 at 16:30 Acetaminophen (Tylenol Liquid) 650 mg Q6H PRN NGT PAIN LEVEL 1-3 OR FEVER Last administered on 12/27/18 06:21; Admin Dose 650 MG; Start 12/06/18 at 09:00 Midodrine (Proamatine) 5 mg TID@09,13,17 GTB Last administered on 12/26/18 12:16; Admin Dose 5 MG; Start 12/07/18 at 09:00 Epoetin Margarito-epbx (RETACRIT(esrd)) 10,000 unit MoWeFr@1700 SC Last administered on 12/25/18 17:27; Admin Dose 10,000 UNIT; Start 12/11/18 at 17:00 Eye Lubricant (Artificial Tears Oph) 2 drop QID BOTH EYES Last administered on 12/27/18 09:18; Admin Dose 2 DROP; Start 12/10/18 at 09:00 Ertapenem 0.5 gm/ Sodium Chloride 100 ml @ 200 mls/hr Q24H IVPB Last administered on 12/26/18 17:26; Admin Dose 200 MLS/HR; Start 12/15/18 at 18:00 Lorazepam (Ativan) 1 mg Q4H PRN IV AGITATION/ANXIETY Last administered on 12/19/18 05:41; Admin Dose 1 MG; Start 12/15/18 at 11:00 Morphine Sulfate (morphine) 1 mg Q4H PRN IV SEVERE PAIN LEVEL 7-10 Last administered on 12/19/18 03:37; Admin Dose 1 MG; Start 12/15/18 at 11:00 Metoclopramide HCl (Reglan) 5 mg Q8 IV Last administered on 12/27/18 06:10; A dmin Dose 5 MG; Start 12/17/18 at 12:00 Miscellaneous Information 1 ea BID XX Last administered on 12/25/18 16:20; Admin Dose 1 EA; Start 12/21/18 at 15:00 Miscellaneous Information 1 ea BID XX ; Start 12/23/18 at 14:00 Methylprednisolone Sodium Succinate (Solu-Medrol) 40 mg Q12H IV Last administe red on 12/27/18 06:10; Admin Dose 40 MG; Start 12/24/18 at 18:00 Albuterol (Proventil 0.083% (Neb)) 1.25 mg Q4H RESP THERAPY HHN Last administered on 12/27/18 13:20; Admin Dose 1.25 MG; Start 12/25/18 at 01:00 Fluconazole (Diflucan) 100 mg DAILY PO Last administered on 12/27/18 09:20; Admin Dose 100 MG; Start 12/25/18 at 13:30 JOSLYN LANDRUM MD December 27, 2018 13:24
[2018-12-27] MEDS: ERTAPENEM SODIUM 0.5 GM in SOD CHLORIDE 0.9% 100 ML IVPB SCH (18:35)
--- NOTE | 2018-12-27 18:42 | PN ---
Date/Time of Note Date/Time of Note DATE: 12/27/18 TIME: 18:42 Assessment/Plan Lines/Catheters IV Catheter Type (from Nrsg): Mid Line Moon in Place (from Nrsg): No Assessment/Plan Assessment/Plan Status post tracheostomy Patient site clean No bleeding Continue vent support Pulmonary toilet Discussed with staff Subjective 24 Hr Interval Summary Constitutional: improved Pain Control: mild Exam/Review of Systems Vital Signs Vitals Vital Signs Date Temp Pulse Resp B/P (MAP) Pulse Ox O2 O2 Flow FiO2 Time Delivery Rate 12/27/18 73 22 100 30 17:16 12/27/18 96.6 144/70 15:49 (94) 12/26/18 Mechanical 07:35 Ventilator Intake and Output 12/26/18 12/26/18 12/27/18 1515:00 23:00 07:00 IntakeIntake Total 200 ml 320 ml 280 ml OutputOutput Total 2100 ml 30 ml 20 ml BalanceBalance -1900 ml 290 ml 260 ml Exam ENMT: nl external ears & nose, nl lips & teeth, nl nasal mucosa & septum, mucosa pink and moist Neck: supple, non-tender Respiratory: clear to auscultation, normal air movement Cardiovascular: regular rate and rhythm, nl pulses Gastrointestinal: soft, nl liver, spleen, non-tender Results Result Diagram: 12/26/18 0728 12/26/18 0728 TAE PAN MD December 27, 2018 18:42
--- NOTE | 2018-12-27 18:43 | PN ---
Date/Time of Note Date/Time of Note DATE: 12/26/18 TIME: 18:43 Assessment/Plan Lines/Catheters IV Catheter Type (from Nrsg): Mid Line Moon in Place (from Nrsg): No Assessment/Plan Assessment/Plan Status post tracheostomy Patient site clean No bleeding Continue vent support Pulmonary toilet Discussed with staff Subjective 24 Hr Interval Summary Constitutional: improved Pain Control: mild Exam/Review of Systems Vital Signs Vitals Vital Signs Date Temp Pulse Resp B/P (MAP) Pulse Ox O2 O2 Flow FiO2 Time Delivery Rate 12/27/18 73 22 100 30 17:16 12/27/18 96.6 144/70 15:49 (94) 12/26/18 Mechanical 07:35 Ventilator Intake and Output 12/26/18 12/26/18 12/27/18 1515:00 23:00 07:00 IntakeIntake Total 200 ml 320 ml 280 ml OutputOutput Total 2100 ml 30 ml 20 ml BalanceBalance -1900 ml 290 ml 260 ml Exam Eyes: nl conjunctiva, EOMI, nl lids, nl sclera ENMT: nl external ears & nose, nl lips & teeth, nl nasal mucosa & septum, mucosa pink and moist Neck: supple, non-tender Respiratory: clear to auscultation, normal air movement Cardiovascular: regular rate and rhythm, nl pulses Gastrointestinal: soft, nl liver, spleen, non-tender Results Result Diagram: 12/26/18 0728 12/26/18 0728 TAE PAN MD December 27, 2018 18:43
[2018-12-28] VITALS (38 sets, daily range): BP systolic 88–143; BP diastolic 50–71; PULSE 68–89; RESP 18–25
[2018-12-28] MEDS: ALBUTEROL 0.083% (NEB) 2.5 MG/3 ML AMP HHN SCH (00:55)
[2018-12-28] MEDS: ALBUTEROL HFA 8 GM INHALER INH SCH ×5 (05:21→19:53)
[2018-12-28] MEDS: METOCLOPRAMIDE 10 MG INJ IV SCH ×3 (06:00→21:41)
[2018-12-28] MEDS: LEVOTHYROXINE 75 MCG TAB NGT SCH (06:03)
[2018-12-28] MEDS: ACETAMINOPHEN 650MG/20.3ML CUP NGT PRN (06:03)
[2018-12-28] MEDS: ALBUMIN HUMAN 25% 100 ML IV PRN (08:00)
[2018-12-28] MEDS: ARTIFICIAL TEARS 15 ML OPH BOTH EYES SCH ×4 (08:28→21:37)
[2018-12-28] MEDS: COLLAGENASE 5 GM (UD JAR) TOP SCH (08:29)
[2018-12-28] MEDS: MIDODRINE 5 MG TAB GTB SCH ×3 (08:29→16:55)
[2018-12-28] MEDS: FLUCONAZOLE 100 MG TAB PO SCH (08:29)
[2018-12-28] MEDS: METHYLPREDNISOLONE 40 MG INJ IV SCH (08:29)
[2018-12-28] MEDS: BALSAM PERU/CASTOR OIL 60 GM TUBE TOP SCH ×4 (08:30→21:37)
[2018-12-28] MEDS: (Nursing Note) XX SCH ×4 (08:30→21:00)
--- NOTE | 2018-12-28 09:18 | PN ---
DATE: 12/28/2018 SUBJECTIVE: The patient is stable. The patient is complaining about abdominal distention. No other events noted. OBJECTIVE: VITAL SIGNS: Blood pressure is 96/52, pulse 77, respirations 20, temperature 97.4. HEENT: Head is normocephalic. NECK: Supple. HEART: Regular rate. LUNGS: Show diminished breath sounds at the base. ABDOMEN: Soft, positive distention. Positive tenderness to palpation. EXTREMITIES: Negative for clubbing, cyanosis. Positive edema. DERMATOLOGIC: No rashes. MUSCULOSKELETAL: No joint effusion. NEUROLOGIC: No change in exam. MEDICATIONS: Reviewed. LABORATORY DATA: Reviewed. ASSESSMENT AND PLAN: 1. End-stage renal disease. The patient is scheduled for hemodialysis today. We will dialyze for 3 hours 3k bath, calcium 2.5. 2. Anemia, diffuse anasarca. Continue ultrafiltration with hemodialysis. 3. Abdominal distention. Etiology may be secondary to ascites. We will consider ultrasound and the rapeutic paracentesis. 4. Hypokalemia. Continue to monitor and replete. 5. Anemia. The patient is status post blood transfusion. Continue to monitor hemoglobin and hemato crit levels. Continue Epogen. 6. Mineral bone disorder. Continue to monitor calcium and phosphorus levels. 7. Ventilator-dependent respiratory failure. Vent settings have been reviewed. Continue to monitor . Follow up with pulmonary. 8. Chronic encephalopathy, stable. 9. Sepsis, status post shock. The patient has completed antibiotic course. 10. Hypothyroidism. Continue Synthroid. 11. Dysphagia. Continue tube feeding. 12. Arrhythmia. Continue amiodarone. 13. Lower extremity wounds. Continue wound care. 14. Status post cardiopulmonary arrest. Dictated By: SARIKA JOINER DO NR/NTS Conf#: [id number] DID#: [id number] CC: MANDY BATES MD; LORRAINE JOHNSON MD; JOSLYN LANDRUM MD;*EndCC*
--- NOTE | 2018-12-28 14:19 | CONS ---
Assessment/Plan Assessment/Plan Hospital Course (Demo Recall) No acute events overnight patient is awake looks comfortable Antimicrobials: Diflucan Invanz Microbiology: Blood culture on admission grew Klebsiella ESBL, repeat blood cultures negative, left thigh wound culture grew Klebsiella ESBL and Leah albicans Allergy: Zosyn, vancomycin Indwelling: Right upper thigh Davie catheter, left femoral triple-lumen catheter, trach Physical examination: This is a chronically ill-appearing cachectic middle-aged woman who is laying comfortably in bed. Head atraumatic normocephalic. Neck is supple. Chest rise symmetrical. Breath sounds diminished bases. Heart: S1-S2, irreg. Abdomen distended. Bowel sounds hypoactive. Extremities with bilateral edema, cyanotic, multiple ecchymotic areas and bruises, left upper thigh dressing present Assessment: 1. Sepsis 2. Acute hypoxemic respiratory failure secondary to CHF exacerbation/probable pneumonia 3. Status post Klebsiella ESBL bacteremia likely 2 to #4 4. 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 End-stage renal disease, hemodialysis dependent 6. Atrial fibrillation/PPM 7. Unstageable sacral decubitus 8. History of peritoneal dialysis with peritoneal dialysis still in place 9. Ascites status post paracentesis 10. Failure to thrive 11. Thrombocytopenia 12. S/p B mastoiditis and acute sinusitis Plan: Remains unchanged, continue antibiotics indefinitely for infected graft, dc planning, prognosis poor Consultation Date/Type/Reason Admit Date/Time Nov 21, 2018 at 04:53 Initial Consult Date Type of Consult id Requesting Provider: RIKA STOCK Date/Time of Note DATE: 12/28/18 TIME: 14:18 Exam/Review of Systems Exam Vitals Vital Signs Date Temp Pulse Resp B/P (MAP) Pulse Ox O2 O2 Flow FiO2 Time Delivery Rate 12/28/18 30 12:21 12/28/18 69 12:07 12/28/18 97.7 20 135/71 93 11:53 (92) 12/28/18 Mechanical 11:09 Ventilator Intake and Output 12/27/18 12/27/18 12/28/18 1515:00 23:00 07:00 IntakeIntake Total 420 ml 340 ml OutputOutput Total 50 ml 80 ml BalanceBalance 370 ml 260 ml Results Result Diagram: 12/28/18 0555 12/28/18 0555 Results 24hrs Laboratory Tests Test 12/28/18 05:54 12/28/18 05:55 Hepatitis B Surface Antigen NEGATIVE White Blood Count 12.0 H Red Blood Count 2.30 L Hemoglobin 7.2 L Hematocrit 21.0 L Mean Corpuscular Volume 91.3 Mean Corpuscular Hemoglobin 31.3 Mean Corpuscular Hemoglobin Concent 34.3 Red Cell Distribution Width 19.1 H Platelet Count 16 *L Mean Platelet Volume 15.1 #H Immature Granulocytes % 0.400 Neutrophils % Segmented Neutrophils % (Manual) 75 Band Neutrophils % (Manual) 21 H Lymphocytes % Lymphocytes % (Manual) 4 L Monocytes % Monocytes % (Manual) 1 Eosinophils % Basophils % Nucleated Red Blood Cells % 1 H Immature Granulocytes # 0.050 H Neutrophils # Neutrophils # (Manual) 9.3 H Band Neutrophils # 2.5 H Lymphocytes (Manual) 0.4 L Lymphocytes # Monocytes # Monocytes # (Manual) 0.1 L Eosinophils # Basophils # Nucleated Red Blood Cells # Platelet Estimate SIG DECREASED Giant Platelets 3 H Poikilocytosis 1+ Anisocytosis 1+ Microcytosis 1+ Target Cells 1+ Stomatocytes 1+ Sodium Level 141 Potassium Level 4.0 Chloride Level 107 Carbon Dioxide Level 24 Anion Gap 10 Blood Urea Nitrogen 73 H Creatinine 1.06 H Est Glomerular Filtrat Rate mL/min 53 L Glucose Level 143 Calcium Level 8.6 Phosphorus Level 2.6 Magnesium Level 1.9 Medications Medication Current Medications Glucose (Glutose) 15 gm Q15M PRN PO DECREASED GLUCOSE; Start 11/23/18 at 13:30 Glucose (Glutose) 22.5 gm Q15M PRN PO DECREASED GLUCOSE; Start 11/23/18 at 13:30 Dextrose (D50w Syringe) 25 ml Q15M PRN IV DECREASED GLUCOSE Last administered on 12/09/18at 13:59; Admin Dose 25 ML; Start 11/23/18 at 13:30 Dextrose (D50w Syringe) 50 ml Q15M PRN IV DECREASED GLUCOSE Last administered on 12/10/18at 13:14; Admin Dose 50 ML; Start 11/23/18 at 13:30 Glucagon (Glucagen) 1 mg Q15M PRN IM DECREASED GLUCOSE; Start 11/23/18 at 13:30 Glucose (Glutose) 15 gm Q15M PRN BUCCAL DECREASED GLUCOSE; Start 11/23/18 at 13:30 Alteplase, Recombinant (Cathflo (Activase)) 2 mg MAY REPEAT X1 PRN CATHETER IF CATHETER REMAINS OCCULUDED Last administered on 12/02/18 15:47; Admin Dose 2 MG; Start 11/26/18 at 03:00 Albumin Human 100 ml @ 100 mls/hr DURING DIALYSIS PRN IV HYPOTENSION DURING HD Last administered on 12/28/18 08:00; Admin Dose 100 MLS/HR; Start 11/26/18 at 14:00 Levothyroxine Sodium (Synthroid) 75 mcg BEFORE BREAKFAST NGT Last administered on 12/28/18 06:03; Admin Dose 75 MCG; Start 11/29/18 at 07:00 Collagenase (Santyl) 1 applic DAILY TOP Last administered on 12/28/18 08:29; Admin Dose 1 APPLIC; Start 12/01/18 at 16:30 Acetaminophen (Tylenol Liquid) 650 mg Q6H PRN NGT PAIN LEVEL 1-3 OR FEVER Last administered on 12/28/18 06:03; Admin Dose 650 MG; Start 12/06/18 at 09:00 Midodrine (Proamatine) 5 mg TID@,13,17 GTB Last administered on 12/28/18 08:29; Admin Dose 5 MG; Start 12/07/18 at 09:00 Epoetin Margarito-epbx (RETACRIT(esrd)) 10,000 unit MoWeFr@1700 SC Last administered on 12/25/18 17:27; Admin Dose 10,000 UNIT; Start 12/11/18 at 17:00 Eye Lubricant (Artificial Tears Oph) 2 drop QID BOTH EYES Last administered on 12/28/18 12:55; Admin Dose 2 DROP; Start 12/10/18 at 09:00 Ertapenem 0.5 gm/ Sodium Chloride 100 ml @ 200 mls/hr Q24H IVPB Last administered on 12/27/18 18:35; Admin Dose 200 MLS/HR; Start 12/15/18 at 18:00 Lorazepam (Ativan) 1 mg Q4H PRN IV AGITATION/ANXIETY Last administered on 12/19/18 05:41; Admin Dose 1 MG; Start 12/15/18 at 11:00 Morphine Sulfate (morphine) 1 mg Q4H PRN IV SEVERE PAIN LEVEL 7-10 Last administered on 12/19/18at 03:37; Admin Dose 1 MG; Start 12/15/18 at 11:00 Metoclopramide HCl (Reglan) 5 mg Q8 IV Last administered on 12/28/18at 13:00; Admin Dose 5 MG; Start 12/17/18 at 12:00 Miscellaneous Information 1 ea BID XX Last administered on 12/25/18at 16:20; Admin Dose 1 EA; Start 12/21/18 at 15:00 Miscellaneous Information 1 ea BID XX ; Start 12/23/18 at 14:00 Fluconazole (Diflucan) 100 mg DAILY PO Last administered on 12/28/18 08:29; Admin Dose 100 MG; Start 12/25/18 at 13:30 Methylprednisolone Sodium Succinate (Solu-Medrol) 40 mg DAILY IV Last administered on 12/28/18at 08:29; Admin Dose 40 MG; Start 12/28/18 at 09:00; Stop 01/01/19 at 17:59 Albuterol (Ventolin Hfa) 4 puff Q4H RESP THERAPY INH Last administered on 12/28/18at 13:13; Admin Dose 4 PUFF; Start 12/28/18 at 05:00 KELSIE ELY NP December 28, 2018 14:19
--- NOTE | 2018-12-28 14:30 | CONS ---
Consult Date/Type/Reason Admit Date/Time Nov 21, 2018 at 04:53 Initial Consult Date Type of Consult Pulmonary Requesting Provider: RIKA STOCK Date/Time of Note DATE: 12/28/18 TIME: 14:29 Subjective Patient stable. No new events Objective Vital Signs Date Temp Pulse Resp B/P (MAP) Pulse Ox O2 O2 Flow FiO2 Time Delivery Rate 12/28/18 30 12:21 12/28/18 69 12:07 12/28/18 97.7 20 135/71 93 11:53 (92) 12/28/18 Mechanical 11:09 Ventilator Intake and Output 12/27/18 12/27/18 12/28/18 1515:00 23:00 07:00 IntakeIntake Total 420 ml 340 ml OutputOutput Total 50 ml 80 ml BalanceBalance 370 ml 260 ml Exam GENERAL: Frail elderly gentleman comfortable at rest on nasal cannula VITAL SIGNS: per chart NECK: Supple. No JVD or lymphadenopathy. CARDIAC EXAM: S1, S2. No added sounds or murmurs. CHEST: Diminished air entry both bases ABDOMEN: Soft, nontender. No guarding or rebound. EXTREMITIES: No cyanosis, clubbing edema +2 NEUROLOGIC: Generalized weakness. Vent Setting Ventilator Support Mode: AC Fraction of Inspired Oxygen pe: 30 Positive End Expiratory Pressu: 5.0 Results/Medications Result Diagram: 12/28/18 0555 12/28/18 0555 Results 24 hrs Laboratory Tests Test 12/28/18 05:54 12/28/18 05:55 Hepatitis B Surface Antigen NEGATIVE White Blood Count 12.0 H Red Blood Count 2.30 L Hemoglobin 7.2 L Hematocrit 21.0 L Mean Corpuscular Volume 91.3 Mean Corpuscular Hemoglobin 31.3 Mean Corpuscular Hemoglobin Concent 34.3 Red Cell Distribution Width 19.1 H Platelet Count 16 *L Mean Platelet Volume 15.1 #H Immature Granulocytes % 0.400 Neutrophils % Segmented Neutrophils % (Manual) 75 Band Neutrophils % (Manual) 21 H Lymphocytes % Lymphocytes % (Manual) 4 L Monocytes % Monocytes % (Manual) 1 Eosinophils % Basophils % Nucleated Red Blood Cells % 1 H Immature Granulocytes # 0.050 H Neutrophils # Neutrophils # (Manual) 9.3 H Band Neutrophils # 2.5 H Lymphocytes (Manual) 0.4 L Lymphocytes # Monocytes # Monocytes # (Manual) 0.1 L Eosinophils # Basophils # Nucleated Red Blood Cells # Platelet Estimate SIG DECREASED Giant Platelets 3 H Poikilocytosis 1+ Anisocytosis 1+ Microcytosis 1+ Target Cells 1+ Stomatocytes 1+ Sodium Level 141 Potassium Level 4.0 Chloride Level 107 Carbon Dioxide Level 24 Anion Gap 10 Blood Urea Nitrogen 73 H Creatinine 1.06 H Est Glomerular Filtrat Rate mL/min 53 L Glucose Level 143 Calcium Level 8.6 Phosphorus Level 2.6 Magnesium Level 1.9 Medications Current Medications Glucose (Glutose) 15 gm Q15M PRN PO DECREASED GLUCOSE; Start 11/23/18 at 13:30 Glucose (Glutose) 22.5 gm Q15M PRN PO DECREASED GLUCOSE; Start 11/23/18 at 13:30 Dextrose (D50w Syringe) 25 ml Q15M PRN IV DECREASED GLUCOSE Last administered on 12/09/18 13:59; Admin Dose 25 ML; Start 11/23/18 at 13:30 Dextrose (D50w Syringe) 50 ml Q15M PRN IV DECREASED GLUCOSE Last administered on 12/10/18 13:14; Admin Dose 50 ML; Start 11/23/18 at 13:30 Glucagon (Glucagen) 1 mg Q15M PRN IM DECREASED GLUCOSE; Start 11/23/18 at 13:30 Glucose (Glutose) 15 gm Q15M PRN BUCCAL DECREASED GLUCOSE; Start 11/23/18 at 13:30 Alteplase, Recombinant (Cathflo (Activase)) 2 mg MAY REPEAT X1 PRN CATHETER IF CATHETER REMAINS OCCULUDED Last administered on 12/02/18 15:47; Admin Dose 2 MG; Start 11/26/18 at 03:00 Albumin Human 100 ml @ 100 mls/hr DURING DIALYSIS PRN IV HYPOTENSION DURING HD Last administered on 12/28/18 08:00; Admin Dose 100 MLS/HR; Start 11/26/18 at 14:00 Levothyroxine Sodium (Synthroid) 75 mcg BEFORE BREAKFAST NGT Last administered on 12/28/18 06:03; Admin Dose 75 MCG; Start 11/29/18 at 07:00 Collagenase (Santyl) 1 applic DAILY TOP Last administered on 12/28/18 08:29; Admin Dose 1 APPLIC; Start 12/01/18 at 16:30 Acetaminophen (Tylenol Liquid) 650 mg Q6H PRN NGT PAIN LEVEL 1-3 OR FEVER Last administered on 12/28/18 06:03; Admin Dose 650 MG; Start 12/06/18 at 09:00 Midodrine (Proamatine) 5 mg TID@,,17 GTB Last administered on 12/28/18 08:29; Admin Dose 5 MG; Start 12/07/18 at 09:00 Epoetin Margarito-epbx (RETACRIT(esrd)) 10,000 unit MoWeFr@1700 SC Last administered on 12/25/18 17:27; Admin Dose 10,000 UNIT; Start 12/11/18 at 17:00 Eye Lubricant (Artificial Tears Oph) 2 drop QID BOTH EYES Last administered on 12/28/18 12:55; Admin Dose 2 DROP; Start 12/10/18 at 09:00 Ertapenem 0.5 gm/ Sodium Chloride 100 ml @ 200 mls/hr Q24H IVPB Last administered on 12/27/18 18:35; Admin Dose 200 MLS/HR; Start 12/15/18 at 18:00 Lorazepam (Ativan) 1 mg Q4H PRN IV AGITATION/ANXIETY Last administered on 12/19/18 05:41; Admin Dose 1 MG; Start 12/15/18 at 11:00 Morphine Sulfate (morphine) 1 mg Q4H PRN IV SEVERE PAIN LEVEL 7-10 Last administered on 12/19/18 03:37; Admin Dose 1 MG; Start 12/15/18 at 11:00 Metoclopramide HCl (Reglan) 5 mg Q8 IV Last administered on 12/28/18 13:00; Admin Dose 5 MG; Start 12/17/18 at 12:00 Miscellaneous Information 1 ea BID XX Last administered on 12/25/18 16:20; Admin Dose 1 EA; Start 12/21/18 at 15:00 Miscellaneous Information 1 ea BID XX ; Start 12/23/18 at 14:00 Fluconazole (Diflucan) 100 mg DAILY PO Last administered on 12/28/18 08:29; Admin Dose 100 MG; Start 12/25/18 at 13:30 Methylprednisolone Sodium Succinate (Solu-Medrol) 40 mg DAILY IV Last administered on 12/28/18 08:29; Admin Dose 40 MG; Start 5/20/19 at 09:00; Stop 01/01/19 at 17:59 Albuterol (Ventolin Hfa) 4 puff Q4H RESP THERAPY INH Last administered on 12/28/18at 13:13; Admin Dose 4 PUFF; Start 12/28/18 at 05:00 Assessment/Plan Hospital Course (Demo Recall) IMP: 1. Ventilator-dependent respiratory failure, status post tracheostomy. 2. Gram-negative sepsis. 3. End-stage renal disease on hemodialysis. 4. Cardiomyopathy. 5. Thrombocytopenia. 6. Anemia. 7. Status post septic shock. RECS: 1. Continue vent support--hold off on weaning for now. 2. Continue antibiotics as per ID 3. Hemodialysis per nephrology 4. Consider transfusion packed red blood cells 5. Replace potassium DC planning Discussed with case management Consider palliative care reconsultation. NINA MORRIS MD, [facility] December 28, 2018 14:30
--- NOTE | 2018-12-28 15:03 | PN ---
Date/Time of Note Date/Time of Note DATE: 12/28/18 TIME: 14:59 Assessment/Plan VTE Prophylaxis Risk score (from Nsg)>0 risk: 8 SCD applied (from Nsg): Yes Pharmacological prophylaxis: other Lines/Catheters IV Catheter Type (from Nrsg): Mid Line Urinary Cath still in place: No Assessment/Plan Hospital Course S: Being evaluated by speech therapy presently. Had dialysis earlier today. O: VS- see below PE: On MV via trach, appears comfortable, interactive Chronically ill appearing Lungs clear Still Distended belly, firm masses, G tube in place Mild peripheral edema present LUE wound wrapped A/P: 58 yo female with ESRD, cirrhosis, DMII presents with hypoglycemia, leg infection. Suffered cardiac and respiratory arrest, recovered with good neurologic status however was unable to be weaned from mechanical ventilation and is now s/p trach and PEG. Comfortable on MV chronically Chronic respiratory failure: -Continue MV per pulm via trach, follow pulmonary recommendations -Wean steroids off over the next few days Left lower extremity wound -Continue antibiotics indefinitely per ID ESRD - HD per nephrology Hypothyroidism: - Continue Synthroid Anemia of CKD: Also thrombocytopenia, possibly secondary to HIT - Transfuse PRN, will recheck H/H today -Given platelet count of 16 today, will order for unit platelet transfusion today Prophylaxis: SCDs DC planning: Ready for discharge to SNF -Case management actively looking for placement presently Result Diagram: 12/28/18 0555 12/28/18 0555 Results 24hrs Laboratory Tests Test 12/28/18 05:54 12/28/18 05:55 Hepatitis B Surface Antigen NEGATIVE White Blood Count 12.0 H Red Blood Count 2.30 L Hemoglobin 7.2 L Hematocrit 21.0 L Mean Corpuscular Volume 91.3 Mean Corpuscular Hemoglobin 31.3 Mean Corpuscular Hemoglobin Concent 34.3 Red Cell Distribution Width 19.1 H Platelet Count 16 *L Mean Platelet Volume 15.1 #H Immature Granulocytes % 0.400 Neutrophils % Segmented Neutrophils % (Manual) 75 Band Neutrophils % (Manual) 21 H Lymphocytes % Lymphocytes % (Manual) 4 L Monocytes % Monocytes % (Manual) 1 Eosinophils % Basophils % Nucleated Red Blood Cells % 1 H Immature Granulocytes # 0.050 H Neutrophils # Neutrophils # (Manual) 9.3 H Band Neutrophils # 2.5 H Lymphocytes (Manual) 0.4 L Lymphocytes # Monocytes # Monocytes # (Manual) 0.1 L Eosinophils # Basophils # Nucleated Red Blood Cells # Platelet Estimate SIG DECREASED Giant Platelets 3 H Poikilocytosis 1+ Anisocytosis 1+ Microcytosis 1+ Target Cells 1+ Stomatocytes 1+ Sodium Level 141 Potassium Level 4.0 Chloride Level 107 Carbon Dioxide Level 24 Anion Gap 10 Blood Urea Nitrogen 73 H Creatinine 1.06 H Est Glomerular Filtrat Rate mL/min 53 L Glucose Level 143 Calcium Level 8.6 Phosphorus Level 2.6 Magnesium Level 1.9 Exam/Review of Systems Exam Vitals Vital Signs Date Temp Pulse Resp B/P (MAP) Pulse Ox O2 O2 Flow FiO2 Time Delivery Rate 12/28/18 30 12:21 12/28/18 69 12:07 12/28/18 97.7 20 135/71 93 11:53 (92) 12/28/18 Mechanical 11:09 Ventilator Intake and Output 12/27/18 12/27/18 12/28/18 1515:00 23:00 07:00 IntakeIntake Total 420 ml 340 ml OutputOutput Total 50 ml 80 ml BalanceBalance 370 ml 260 ml Results Results 24hrs Laboratory Tests Test 12/28/18 05:54 12/28/18 05:55 Hepatitis B Surface Antigen NEGATIVE White Blood Count 12.0 H Red Blood Count 2.30 L Hemoglobin 7.2 L Hematocrit 21.0 L Mean Corpuscular Volume 91.3 Mean Corpuscular Hemoglobin 31.3 Mean Corpuscular Hemoglobin Concent 34.3 Red Cell Distribution Width 19.1 H Platelet Count 16 *L Mean Platelet Volume 15.1 #H Immature Granulocytes % 0.400 Neutrophils % Segmented Neutrophils % (Manual) 75 Band Neutrophils % (Manual) 21 H Lymphocytes % Lymphocytes % (Manual) 4 L Monocytes % Monocytes % (Manual) 1 Eosinophils % Basophils % Nucleated Red Blood Cells % 1 H Immature Granulocytes # 0.050 H Neutrophils # Neutrophils # (Manual) 9.3 H Band Neutrophils # 2.5 H Lymphocytes (Manual) 0.4 L Lymphocytes # Monocytes # Monocytes # (Manual) 0.1 L Eosinophils # Basophils # Nucleated Red Blood Cells # Platelet Estimate SIG DECREASED Giant Platelets 3 H Poikilocytosis 1+ Anisocytosis 1+ Microcytosis 1+ Target Cells 1+ Stomatocytes 1+ Sodium Level 141 Potassium Level 4.0 Chloride Level 107 Carbon Dioxide Level 24 Anion Gap 10 Blood Urea Nitrogen 73 H Creatinine 1.06 H Est Glomerular Filtrat Rate mL/min 53 L Glucose Level 143 Calcium Level 8.6 Phosphorus Level 2.6 Magnesium Level 1.9 Medications Medication Current Medications Glucose (Glutose) 15 gm Q15M PRN PO DECREASED GLUCOSE; Start 11/23/18 at 13:30 Glucose (Glutose) 22.5 gm Q15M PRN PO DECREASED GLUCOSE; Start 11/23/18 at 13:30 Dextrose (D50w Syringe) 25 ml Q15M PRN IV DECREASED GLUCOSE Last administered on 12/09/18 13:59; Admin Dose 25 ML; Start 11/23/18 at 13:30 Dextrose (D50w Syringe) 50 ml Q15M PRN IV DECREASED GLUCOSE Last administered on 12/10/18 13:14; Admin Dose 50 ML; Start 11/23/18 at 13:30 Glucagon (Glucagen) 1 mg Q15M PRN IM DECREASED GLUCOSE; Start 11/23/18 at 13:30 Glucose (Glutose) 15 gm Q15M PRN BUCCAL DECREASED GLUCOSE; Start 11/23/18 at 13:30 Alteplase, Recombinant (Cathflo (Activase)) 2 mg MAY REPEAT X1 PRN CATHETER IF CATHETER REMAINS OCCULUDED Last administered on 12/02/18 15:47; Admin Dose 2 MG; Start 11/26/18 at 03:00 Albumin Human 100 ml @ 100 mls/hr DURING DIALYSIS PRN IV HYPOTENSION DURING HD Last administered on 12/28/18 08:00; Admin Dose 100 MLS/HR; Start 11/26/18 at 14:00 Levothyroxine Sodium (Synthroid) 75 mcg BEFORE BREAKFAST NGT Last administered on 12/28/18 06:03; Admin Dose 75 MCG; Start 11/29/18 at 07:00 Collagenase (Santyl) 1 applic DAILY TOP Last administered on 12/28/18 08:29; Admin Dose 1 APPLIC; Start 12/01/18 at 16:30 Acetaminophen (Tylenol Liquid) 650 mg Q6H PRN NGT PAIN LEVEL 1-3 OR FEVER Last administered on 12/28/18 06:03; Admin Dose 650 MG; Start 12/06/18 at 09:00 Midodrine (Proamatine) 5 mg TID@,13,17 GTB Last administered on 12/28/18 08:29; Admin Dose 5 MG; Start 12/07/18 at 09:00 Epoetin Margarito-epbx (RETACRIT(esrd)) 10,000 unit MoWeFr@1700 SC Last administered on 12/25/18 17:27; Admin Dose 10,000 UNIT; Start 12/11/18 at 17:00 Eye Lubricant (Artificial Tears Oph) 2 drop QID BOTH EYES Last administered on 12/28/18 12:55; Admin Dose 2 DROP; Start 12/10/18 at 09:00 Ertapenem 0.5 gm/ Sodium Chloride 100 ml @ 200 mls/hr Q24H IVPB Last administered on 12/27/18 18:35; Admin Dose 200 MLS/HR; Start 12/15/18 at 18:00 Lorazepam (Ativan) 1 mg Q4H PRN IV AGITATION/ANXIETY Last administered on 12/19/18 05:41; Admin Dose 1 MG; Start 12/15/18 at 11:00 Morphine Sulfate (morphine) 1 mg Q4H PRN IV SEVERE PAIN LEVEL 7-10 Last administered on 12/19/18 03:37; Admin Dose 1 MG; Start 12/15/18 at 11:00 Metoclopramide HCl (Reglan) 5 mg Q8 IV Last administered on 12/28/18 13:00; Admin Dose 5 MG; Start 12/17/18 at 12:00 Miscellaneous Information 1 ea BID XX Last administered on 12/25/18 16:20; Admin Dose 1 EA; Start 12/21/18 at 15:00 Miscellaneous Information 1 ea BID XX ; Start 12/23/18 at 14:00 Fluconazole (Diflucan) 100 mg DAILY PO Last administered on 12/28/18 08:29; Admin Dose 100 MG; Start 12/25/18 at 13:30 Methylprednisolone Sodium Succinate (Solu-Medrol) 40 mg DAILY IV Last administered on 12/28/18 08:29; Admin Dose 40 MG; Start 12/28/18 at 09:00; Stop 01/01/19 at 17:59 Albuterol (Ventolin Hfa) 4 puff Q4H RESP THERAPY INH Last administered on 12/28/18 13:13; Admin Dose 4 PUFF; Start 12/28/18 at 05:00 RENÉE SKINNER December 28, 2018 15:03
[2018-12-28] MEDS ORDERED: SOD CHLORIDE 0.9% 250 ML IV* ONE (15:13)
[2018-12-28] MEDS: EPOETIN ALFA-EPBX (ESRD) 10,000 UNIT/ML VIAL SC SCH (16:54)
[2018-12-28] MEDS: ERTAPENEM SODIUM 0.5 GM in SOD CHLORIDE 0.9% 100 ML IVPB SCH (17:00)
--- NOTE | 2018-12-28 20:10 | PN ---
Date/Time of Note Date/Time of Note DATE: 12/28/18 TIME: 20:09 Assessment/Plan Lines/Catheters IV Catheter Type (from Nrsg): Mid Line Moon in Place (from Nrsg): No Assessment/Plan Assessment/Plan Status post tracheostomy Trach site clean No bleeding Continue pulmonary toilet Vent support Trach care Subjective 24 Hr Interval Summary Constitutional: no complaints, improved, ambulates, BM, flatus, urine output Pain Control: well controlled Exam/Review of Systems Vital Signs Vitals Vital Signs Date Temp Pulse Resp B/P (MAP) Pulse Ox O2 O2 Flow FiO2 Time Delivery Rate 12/28/18 97.6 78 20 143/69 92 20:08 (93) 12/28/18 30 19:35 12/28/18 Mechanical 11:09 Ventilator Intake and Output 12/27/18 12/27/18 12/28/18 1515:00 23:00 07:00 IntakeIntake Total 420 ml 340 ml OutputOutput Total 50 ml 80 ml BalanceBalance 370 ml 260 ml Exam Eyes: nl conjunctiva, EOMI, nl lids, nl sclera ENMT: nl external ears & nose, nl lips & teeth, nl nasal mucosa & septum, mucosa pink and moist Neck: supple, non-tender Respiratory: clear to auscultation, normal air movement Cardiovascular: regular rate and rhythm, nl pulses Gastrointestinal: soft, nl liver, spleen, non-tender Results Result Diagram: 12/28/18 1811 12/28/18 0555 TAE PAN MD December 28, 2018 20:10
[2018-12-29] VITALS (79 sets, daily range): BP systolic 60–145; BP diastolic 44–76; PULSE 78–127; RESP 15–42
[2018-12-29] MEDS: ALBUTEROL HFA 8 GM INHALER INH SCH ×6 (01:11→21:19)
[2018-12-29] MEDS: METOCLOPRAMIDE 10 MG INJ IV SCH ×3 (05:56→21:51)
[2018-12-29] MEDS: LEVOTHYROXINE 75 MCG TAB NGT SCH (06:00)
[2018-12-29] MEDS: MIDODRINE 5 MG TAB GTB SCH ×2 (06:41→12:11)
[2018-12-29] MEDS ORDERED: SOD CHLORIDE 0.9% 250 ML IV ONE ×2 (07:00)
--- NOTE | 2018-12-29 08:09 | PN ---
DATE: 12/29/2018 SUBJECTIVE: The patient was transferred from telemetry to the intensive care unit. The patient was noted to be hypertensive overnight. The patient had hemodialysis yesterday approximately 600 mL heath yanely. No other events noted. OBJECTIVE: VITAL SIGNS: Blood pressure is 101/56, respirations 20, pulse 92, temperature 97.6. HEENT: Head is normocephalic. NECK: Shows trach. HEART: Tachycardic. LUNGS: Show diminished breath sounds at the base. ABDOMEN: Soft, nontender to palpation. Positive PEG. EXTREMITIES: Negative for clubbing, cyanosis. Positive edema, diffuse anasarca. DERMATOLOGIC: No rashes. MUSCULOSKELETAL: No joint effusion. NEUROLOGIC: No change in exam. MEDICATIONS: Reviewed. LABORATORY DATA: Currently pending. ASSESSMENT AND PLAN: 1. End-stage renal disease. The patient had hemodialysis yesterday, tolerated well. Anticipate hem odialysis tomorrow if hemodynamically stable. 2. Volume overload with diffuse anasarca. We will continue ultrafiltration with hemodialysis if hem odynamically stable. 3. Abdominal distention, possibly due to underlying ascites. Consider abdominal ultrasound. 4. Hypokalemia. Continue to monitor and replete. 5. Anemia. The patient is status post blood transfusion, monitor hemoglobin and hematocrit levels. Continue Epogen. 6. Mineral bone disorder, monitor calcium and phosphorus levels. 7. Ventilator-dependent respiratory failure. Vent settings and ABG was reviewed. Continue to monit or. 8. Sepsis. The patient is currently hypertensive. The patient is status post blood products and IV fluids. We will continue to monitor closely. May need to reinitiate pressor support. Continue bro ad spectrum antibiotics, consider reculturing the patient. 9. Chronic encephalopathy. 10. Hypothyroidism. Continue Synthroid. 11. Dysphagia. Continue tube feeding. 12. Arrhythmia. Continue amiodarone. 13. Lower extremity wounds. Continue wound care. 14. Status post cardiopulmonary arrest. Dictated By: SARIKA JOINER DO NR/NTS Conf#: [id number] DID#: [id number] CC: RENÉE SKINNER; MANDY BATES MD; LORRAINE JOHNSON MD;*EndCC*
--- NOTE | 2018-12-29 08:36 | CONS ---
Assessment/Plan Assessment/Plan Assessment/Plan (Daily) Chest x-ray showing bilateral pneumonia. Ventilator setting; assist control of 18, tidal volume 400, PEEP of 5, 30% FiO2. ABG is pending. Assessment and recommendations; 1. Patient admitted to ICU with bilateral pneumonia currently on appropriate antimicrobial regimen. 2. Severely macerated state. 3. Anemia and severe thrombocytopenia. 4. End-stage renal disease, on hemodialysis. 5. Klebsiella pneumonia ESBL. Isolated from sputum. 6. History of hypothyroidism. Continue current supportive care. Prognosis is very poor. Hospice would be appropriate. Consultation Date/Type/Reason Admit Date/Time Nov 21, 2018 at 04:53 Initial Consult Date Type of Consult Pulmonary Requesting Provider: RIKA STOCK Date/Time of Note DATE: 12/29/18 TIME: 08:33 24 HR Interval Summary Free Text/Dictation Patient's condition is critical. Patient however has remained hemodynamically stable. General exam; middle-aged female, severely emaciated, on ventilator via tracheostomy. Awake but lethargic. Currently no distress. Exam/Review of Systems Exam Vitals Vital Signs Date Temp Pulse Resp B/P (MAP) Pulse Ox O2 O2 Flow FiO2 Time Delivery Rate 12/29/18 98 15 77/50 (59) 100 Mechanical 07:10 Ventilator 12/29/18 30 05:40 12/29/18 97.6 03:13 Intake and Output 12/28/18 12/28/18 12/29/18 1515:00 23:00 07:00 IntakeIntake Total 100 ml 470 ml 960 ml OutputOutput Total 1600 ml 620 ml 50 ml BalanceBalance -1500 ml -150 ml 910 ml Exam HEENT exam; supple neck, positive JVD. No lymphadenopathy. Midline trachea. No thyromegaly. Tracheostomy in place. Patient has carious teeth. Pupils are small bilaterally. Chest exam; diminished breath sounds bilaterally. S1-S2 audible, no murmurs. Regular rhythm. Abdomen exam; scaphoid, G-tube in place. Bowel sounds are sluggish. No organomegaly. Extremity exam; severe multiple ecchymosis are present diffusely. [employer] exam; patient awake but lethargic. Results Result Diagram: 12/29/18 0714 12/29/18 0714 Results 24hrs Laboratory Tests Test 12/28/18 18:11 12/29/18 01:50 12/29/18 07:14 12/29/18 07:44 Hemoglobin 6.1 *L 8.4 #L Pending Hematocrit 18.4 L 26.3 #L Pending Stool Occult Blood POSITIVE White Blood Count 9.3 # Pending Red Blood Count 2.81 #L Pending Mean Corpuscular 93.6 Pending Volume Mean Corpuscular 29.9 Pending Hemoglobin Mean Corpuscular 31.9 L Pending Hemoglobin Concent Red Cell 17.8 H Pending Distribution Width Platelet Count 16 *L Pending Mean Platelet Volume Pending Immature 0.500 H Granulocytes % Neutrophils % 95.3 H Lymphocytes % 2.3 L Monocytes % 1.0 Eosinophils % 0.0 Basophils % 0.9 Nucleated Red Blood 0.3 H Cells % Immature 0.050 H Granulocytes # Neutrophils # 8.9 H Lymphocytes # 0.2 L Monocytes # 0.1 L Eosinophils # 0.0 Basophils # 0.1 Nucleated Red Blood 0.0 Cells # Sodium Level 143 Potassium Level 4.1 Chloride Level 107 Carbon Dioxide Level 20 L Anion Gap 16 H Blood Urea Nitrogen 62 H Creatinine 0.71 Est Glomerular > 60 Filtrat Rate mL/min Glucose Level 50 #*L Calcium Level 8.6 Phosphorus Level 2.3 L Magnesium Level Pending Test 12/29/18 08:15 Bedside Glucose 76 Medications Medication Current Medications Glucose (Glutose) 15 gm Q15M PRN PO DECREASED GLUCOSE; Start 11/23/18 at 13:30 Glucose (Glutose) 22.5 gm Q15M PRN PO DECREASED GLUCOSE; Start 11/23/18 at 13:30 Dextrose (D50w Syringe) 25 ml Q15M PRN IV DECREASED GLUCOSE Last administered on 12/09/18at 13:59; Admin Dose 25 ML; Start 11/23/18 at 13:30 Dextrose (D50w Syringe) 50 ml Q15M PRN IV DECREASED GLUCOSE Last administered on 12/10/18at 13:14; Admin Dose 50 ML; Start 11/23/18 at 13:30 Glucagon (Glucagen) 1 mg Q15M PRN IM DECREASED GLUCOSE; Start 11/23/18 at 13:30 Glucose (Glutose) 15 gm Q15M PRN BUCCAL DECREASED GLUCOSE; Start 11/23/18 at 13:30 Alteplase, Recombinant (Cathflo (Activase)) 2 mg MAY REPEAT X1 PRN CATHETER IF CATHETER REMAINS OCCULUDED Last administered on 12/02/18 15:47; Admin Dose 2 MG; Start 11/26/18 at 03:00 Albumin Human 100 ml @ 100 mls/hr DURING DIALYSIS PRN IV HYPOTENSION DURING HD Last administered on 12/28/18 08:00; Admin Dose 100 MLS/HR; Start 11/26/18 at 14:00 Levothyroxine Sodium (Synthroid) 75 mcg BEFORE BREAKFAST NGT Last administered on 12/29/18 06:00; Admin Dose 75 MCG; Start 11/29/18 at 07:00 Collagenase (Santyl) 1 applic DAILY TOP Last administered on 12/28/18 08:29; Admin Dose 1 APPLIC; Start 12/01/18 at 16:30 Acetaminophen (Tylenol Liquid) 650 mg Q6H PRN NGT PAIN LEVEL 1-3 OR FEVER Last administered on 12/28/18 06:03; Admin Dose 650 MG; Start 12/06/18 at 09:00 Midodrine (Proamatine) 5 mg TID@,13,17 GTB Last administered on 12/29/18 06:41; Admin Dose 5 MG; Start 12/07/18 at 09:00 Epoetin Margarito-epbx (RETACRIT(esrd)) 10,000 unit MoWeFr@1700 SC Last administered on 12/28/18 16:54; Admin Dose 10,000 UNIT; Start 12/11/18 at 17:00 Eye Lubricant (Artificial Tears Oph) 2 drop QID BOTH EYES Last administered on 12/28/18 21:37; Admin Dose 2 DROP; Start 12/10/18 at 09:00 Ertapenem 0.5 gm/ Sodium Chloride 100 ml @ 200 mls/hr Q24H IVPB Last administered on 12/28/18 17:00; Admin Dose 200 MLS/HR; Start 12/15/18 at 18:00 Lorazepam (Ativan) 1 mg Q4H PRN IV AGITATION/ANXIETY Last administered on 12/19/18 05:41; Admin Dose 1 MG; Start 12/15/18 at 11:00 Morphine Sulfate (morphine) 1 mg Q4H PRN IV SEVERE PAIN LEVEL 7-10 Last administered on 12/19/18 03:37; Admin Dose 1 MG; Start 12/15/18 at 11:00 Metoclopramide HCl (Reglan) 5 mg Q8 IV Last administered on 12/29/18 05:56; Admin Dose 5 MG; Start 12/17/18 at 12:00 Miscellaneous Information 1 ea BID XX Last administered on 12/25/18at 16:20; Admin Dose 1 EA; Start 12/21/18 at 15:00 Miscellaneous Information 1 ea BID XX ; Start 12/23/18 at 14:00 Fluconazole (Diflucan) 100 mg DAILY PO Last administered on 12/28/18at 08:29; Admin Dose 100 MG; Start 12/25/18 at 13:30 Methylprednisolone Sodium Succinate (Solu-Medrol) 40 mg DAILY IV Last administered on 12/28/18at 08:29; Admin Dose 40 MG; Start 12/28/18 at 09:00; Stop 01/01/19 at 17:59 Albuterol (Ventolin Hfa) 4 puff Q4H RESP THERAPY INH Last administered on 12/29/18at 05:39; Admin Dose 4 PUFF; Start 12/28/18 at 05:00 MARIAN KUMAR December 29, 2018 08:36
[2018-12-29] MEDS ORDERED: NORepinephrine 8MG/250 ML (PMX 250 ML ONE (08:51)
[2018-12-29] MEDS: (Nursing Note) XX SCH ×4 (09:00→21:00)
[2018-12-29] MEDS: ARTIFICIAL TEARS 15 ML OPH BOTH EYES SCH ×3 (09:00→16:50)
[2018-12-29] MEDS: NORepinephrine 8MG/250 ML (PMX 250 ML IV SCH (09:00)
--- NOTE | 2018-12-29 09:03 | CONS ---
Assessment/Plan Assessment/Plan Assessment/Plan (Daily) Patient is transferred back into the intensive care unit bilateral pneumonia 100% FiO2 nonresponsive is at the bedside. I have had an extensive conversation with patient's son on the phone. Explained the situation in detail to him that the chance of her recovering are little to none and if we do cardiopulmonary resuscitation we would break her ribs and with a platelet count of 16,000 she would hemorrhage extensively. I did tell him that primary caregivers do not want to cause her to suffer at the end of her life by doing cardiopulmonary resuscitation and DC cardioversion. He did not disagree he just said he was speak to his other family members but insisted that his mother would want to be kept alive. At this time I suggest emergency bioethics consultation to change patient's CODE STATUS to DO NOT RESUSCITATE. I have informed the son that I have asked for bioethics consultation. Consultation Date/Type/Reason Admit Date/Time Nov 21, 2018 at 04:53 Initial Consult Date Requesting Provider: RIKA STOCK Date/Time of Note DATE: 12/29/18 TIME: 08:58 Exam/Review of Systems Exam Vitals Vital Signs Date Temp Pulse Resp B/P (MAP) Pulse Ox O2 O2 Flow FiO2 Time Delivery Rate 12/29/18 98 15 77/50 (59) 100 Mechanical 07:10 Ventilator 12/29/18 30 05:40 12/29/18 97.6 03:13 Intake and Output 12/28/18 12/28/18 12/29/18 1515:00 23:00 07:00 IntakeIntake Total 100 ml 470 ml 960 ml OutputOutput Total 1600 ml 620 ml 50 ml BalanceBalance -1500 ml -150 ml 910 ml Results Result Diagram: 12/29/18 0744 12/29/18 0714 Results 24hrs Laboratory Tests Test 12/28/18 18:11 12/29/18 01:50 12/29/18 07:14 12/29/18 07:44 Hemoglobin 6.1 *L 8.4 #L 8.3 L Hematocrit 18.4 L 26.3 #L 24.9 L Stool Occult Blood POSITIVE White Blood Count 9.3 # 7.6 Red Blood Count 2.81 #L 2.76 L Mean Corpuscular 93.6 90.2 Volume Mean Corpuscular 29.9 30.1 Hemoglobin Mean Corpuscular 31.9 L 33.3 Hemoglobin Concent Red Cell 17.8 H 17.4 H Distribution Width Platelet Count 16 *L 14 *L Mean Platelet Volume Immature 0.500 H 0.500 H Granulocytes % Neutrophils % 95.3 H Lymphocytes % 2.3 L Monocytes % 1.0 Eosinophils % 0.0 Basophils % 0.9 Nucleated Red Blood 0.3 H 0.5 H Cells % Immature 0.050 H 0.040 H Granulocytes # Neutrophils # 8.9 H Lymphocytes # 0.2 L Monocytes # 0.1 L Eosinophils # 0.0 Basophils # 0.1 Nucleated Red Blood 0.0 Cells # Sodium Level 143 Potassium Level 4.1 Chloride Level 107 Carbon Dioxide Level 20 L Anion Gap 16 H Blood Urea Nitrogen 62 H Creatinine 0.71 Est Glomerular > 60 Filtrat Rate mL/min Glucose Level 50 #*L Calcium Level 8.6 Phosphorus Level 2.3 L Magnesium Level Pending Lactic Acid Level 5.0 *H Test 12/29/18 07:48 12/29/18 08:15 Sodium Level 140 Potassium Level 4.2 Chloride Level 106 Carbon Dioxide Level 24 Anion Gap 10 # Blood Urea Nitrogen 70 H Creatinine 0.83 Est Glomerular > 60 Filtrat Rate mL/min Glucose Level 78 Calcium Level 8.8 Magnesium Level 1.8 Bedside Glucose 76 Medications Medication Current Medications Glucose (Glutose) 15 gm Q15M PRN PO DECREASED GLUCOSE; Start 11/23/18 at 13:30 Glucose (Glutose) 22.5 gm Q15M PRN PO DECREASED GLUCOSE; Start 11/23/18 at 13 :30 Dextrose (D50w Syringe) 25 ml Q15M PRN IV DECREASED GLUCOSE Last administered on 12/09/18at 13:59; Admin Dose 25 ML; Start 11/23/18 at 13:30 Dextrose (D50w Syringe) 50 ml Q15M PRN IV DECREASED GLUCOSE Last administered on 12/10/18at 13:14; Admin Dose 50 ML; Start 11/23/18 at 13:30 Glucagon (Glucagen) 1 mg Q15M PRN IM DECREASED GLUCOSE; Start 11/23/18 at 13:30 Glucose (Glutose) 15 gm Q15M PRN BUCCAL DECREASED GLUCOSE; Start 11/23/18 at 13:30 Alteplase, Recombinant (Cathflo (Activase)) 2 mg MAY REPEAT X1 PRN CATHETER IF CATHETER REMAINS OCCULUDED Last administered on 12/02/18 15:47; Admin Dose 2 MG; Start 11/26/18 at 03:00 Albumin Human 100 ml @ 100 mls/hr DURING DIALYSIS PRN IV HYPOTENSION DURING HD Last administered on 12/28/18 08:00; Admin Dose 100 MLS/HR; Start 11/26/18 at 14:00 Levothyroxine Sodium (Synthroid) 75 mcg BEFORE BREAKFAST NGT Last administered on 12/29/18 06:00; Admin Dose 75 MCG; Start 11/29/18 at 07:00 Collagenase (Santyl) 1 applic DAILY TOP Last administered on 12/28/18 08:29; Admin Dose 1 APPLIC; Start 12/01/18 at 16:30 Acetaminophen (Tylenol Liquid) 650 mg Q6H PRN NGT PAIN LEVEL 1-3 OR FEVER Last administered on 12/28/18 06:03; Admin Dose 650 MG; Start 12/06/18 at 09:00 Midodrine (Proamatine) 5 mg TID@09,13,17 GTB Last administered on 12/29/18 06:41; Admin Dose 5 MG; Start 12/07/18 at 09:00 Epoetin Margarito-epbx (RETACRIT(esrd)) 10,000 unit MoWeFr@1700 SC Last administered on 12/28/18 16:54; Admin Dose 10,000 UNIT; Start 12/11/18 at 17:00 Eye Lubricant (Artificial Tears Oph) 2 drop QID BOTH EYES Last administered on 12/28/18 21:37; Admin Dose 2 DROP; Start 12/10/18 at 09:00 Ertapenem 0.5 gm/ Sodium Chloride 100 ml @ 200 mls/hr Q24H IVPB Last administered on 12/28/18 17:00; Admin Dose 200 MLS/HR; Start 12/15/18 at 18:00 Lorazepam (Ativan) 1 mg Q4H PRN IV AGITATION/ANXIETY Last administered on 12/19/18 05:41; Admin Dose 1 MG; Start 12/15/18 at 11:00 Morphine Sulfate (morphine) 1 mg Q4H PRN IV SEVERE PAIN LEVEL 7-10 Last administered on 12/19/18 03:37; Admin Dose 1 MG; Start 12/15/18 at 11:00 Metoclopramide HCl (Reglan) 5 mg Q8 IV Last administered on 12/29/18at 05:56; Admin Dose 5 MG; Start 12/17/18 at 12:00 Miscellaneous Information 1 ea BID XX Last administered on 12/25/18at 16:20; Admin Dose 1 EA; Start 12/21/18 at 15:00 Miscellaneous Information 1 ea BID XX ; Start 12/23/18 at 14:00 Fluconazole (Diflucan) 100 mg DAILY PO Last administered on 12/28/18at 08:29; Admin Dose 100 MG; Start 12/25/18 at 13:30 Methylprednisolone Sodium Succinate (Solu-Medrol) 40 mg DAILY IV Last administered on 12/28/18at 08:29; Admin Dose 40 MG; Start 12/28/18 at 09:00; Stop 01/01/19 at 17:59 Albuterol (Ventolin Hfa) 4 puff Q4H RESP THERAPY INH Last administered on 12/29/18at 05:39; Admin Dose 4 PUFF; Start 12/28/18 at 05:00 JULIEN SALINAS December 29, 2018 09:02
[2018-12-29] MEDS ORDERED: LIDOCAINE 1% (MPF) 5 ML VIAL SC ONE (09:30)
[2018-12-29] MEDS ORDERED: DILTIAZEM-D5W 125MG/125ML DRIP 125 ML IV SCH (09:30)
[2018-12-29] MEDS: FLUCONAZOLE 100 MG TAB PO SCH (10:35)
[2018-12-29] MEDS: COLLAGENASE 5 GM (UD JAR) TOP SCH (10:35)
--- NOTE | 2018-12-29 10:58 | PN ---
Date/Time of Note Date/Time of Note DATE: 12/29/18 TIME: 09:54 Assessment/Plan VTE Prophylaxis Risk score (from Ns)>0 risk: 7 SCD applied (from Ns): Yes Pharmacological prophylaxis: NA/contraindicated Pharm contraindication: thrombocytopenia Lines/Catheters IV [facility]ter [facility]from [facility] Mid Line Urinary Cath still in place: No Assessment/Plan Hospital Course S: Patient transferred to ICU overnight because of hypotension, now started on pressor support and waiting for central line. Did receive 1 unit PRBC transfusion yesterday and 1 unit platelet transfusion yesterday. By what this meeting just held a few minutes ago as well to discuss CODE STATUS, prel iminarily the family agrees to chemical code only at this point in time. Patient did have atrial fibrillation with RVR earlier today as well that self converted but we are pending cardiology consult for further investigation. O: VS- see below PE: On MV via trach, minimally interactive Chronically ill appearing, cachectic Lungs clear Still Distended belly, firm masses, G tube in place Mild peripheral edema present LUE wound wrapped A/P: 58 yo female with ESRD, questionable cirrhosis, DMII presents with hypoglycemia, leg infection. Suffered cardiac and respiratory arrest, recovered with good neurologic status however was unable to be weaned from mechanical ventilation and is now s/p trach and PEG. Chronic respiratory failure: Treated for pneumonia earlier this admission as well as respiratory failure, status post trach placement earlier this admission as well. -Continue MV per pulm via trach, follow pulmonary recommendations, current antifungal and antibacterial medications -Wean steroids off over the next few days Left lower extremity wound: Per ID team there is also concern of a possible infected graft. Blood cultures from last month as well as wound culture from last month positive for Klebsiella, patient presently on ertapenem as well as fluconazole. -Continue antibiotics indefinitely per ID ESRD -For now continue HD per nephrology Hypothyroidism: - Continue Synthroid Anemia of CKD: Also thrombocytopenia, secondary to HIT. Patient received 1 unit PRBC transfusion yesterday as well as 1 unit platelet transfusion yesterday. -Monitor CBC for now Prophylaxis: SCDs Dispo: Again patient now back in intensive care unit unfortunately overnight. As mentioned above bioethics meeting held earlier this morning, family was present later during the meeting as well. At this point in time patient is on pressor support. Family now agrees to chemical code only. Family awaiting for 3 siblings to arrive later this evening and are aware patient has very poor prognosis at this point in time. Critical care time spent on patient care today equals 55 minutes. Result Diagram: 12/29/18 0744 12/29/18 0748 Results 24hrs Laboratory Tests Test 12/28/18 18:11 12/29/18 01:50 12/29/18 07:14 12/29/18 07:44 Hemoglobin 6.1 *L 8.4 #L 8.3 L Hematocrit 18.4 L 26.3 #L 24.9 L Stool Occult Blood POSITIVE White Blood Count 9.3 # 7.6 Red Blood Count 2.81 #L 2.76 L Mean Corpuscular 93.6 90.2 Volume Mean Corpuscular 29.9 30.1 Hemoglobin Mean Corpuscular 31.9 L 33.3 Hemoglobin Concent Red Cell 17.8 H 17.4 H Distribution Width Platelet Count 16 *L 14 *L Mean Platelet Volume Immature 0.500 H 0.500 H Granulocytes % Neutrophils % 95.3 H Segmented 67 Neutrophils % (Manual) Band Neutrophils % 26 H (Manual) Lymphocytes % 2.3 L Lymphocytes % 3 L (Manual) Reactive Lymphocytes 1 H % (Manual) Monocytes % 1.0 Monocytes % (Manual) 1 Eosinophils % 0.0 Basophils % 0.9 Metamyelocytes % 1 H (manual) Nucleated Red Blood 0.3 H 0.5 H Cells % Immature 0.050 H 0.040 H Granulocytes # Neutrophils # 8.9 H Neutrophils # 6.5 (Manual) Band Neutrophils # 2.4 H Lymphocytes (Manual) 0.2 L Lymphocytes # 0.2 L Reactive Lymphocytes 0.0 # Monocytes # 0.1 L Monocytes # (Manual) 0.0 L Eosinophils # 0.0 Basophils # 0.1 Metamyelocytes # 0.0 Nucleated Red Blood 0.0 Cells # Platelet Estimate DECREASED Giant Platelets 3 H Polychromasia 1+ Hypochromasia 1+ Poikilocytosis 2+ Anisocytosis 1+ Tear Drop Cells 1+ Ovalocytes 1+ Stomatocytes 1+ Sodium Level 143 Potassium Level 4.1 Chloride Level 107 Carbon Dioxide Level 20 L Anion Gap 16 H Blood Urea Nitrogen 62 H Creatinine 0.71 Est Glomerular > 60 Filtrat Rate mL/min Glucose Level 50 #*L Calcium Level 8.6 Phosphorus Level 2.3 L Magnesium Level Pending Lactic Acid Level 5.0 *H Test 12/29/18 07:48 12/29/18 08:15 Sodium Level 140 Potassium Level 4.2 Chloride Level 106 Carbon Dioxide Level 24 Anion Gap 10 # Blood Urea Nitrogen 70 H Creatinine 0.83 Est Glomerular > 60 Filtrat Rate mL/min Glucose Level 78 Calcium Level 8.8 Magnesium Level 1.8 Bedside Glucose 76 Exam/Review of Systems Exam Vitals Vital Signs Date Temp Pulse Resp B/P (MAP) Pulse Ox O2 O2 Flow FiO2 Time Delivery Rate 12/29/18 126 08:00 12/29/18 30 08:00 12/29/18 28 86 08:00 12/29/18 77/50 (59) Mechanical 07:10 Ventilator 12/29/18 97.6 03:13 Intake and Output 12/28/18 12/28/18 12/29/18 1515:00 23:00 07:00 IntakeIntake Total 100 ml 470 ml 960 ml OutputOutput Total 1600 ml 620 ml 50 ml BalanceBalance -1500 ml -150 ml 910 ml Results Results 24hrs Laboratory Tests Test 12/28/18 18:11 12/29/18 01:50 12/29/18 07:14 12/29/18 07:44 Hemoglobin 6.1 *L 8.4 #L 8.3 L Hematocrit 18.4 L 26.3 #L 24.9 L Stool Occult Blood POSITIVE White Blood Count 9.3 # 7.6 Red Blood Count 2.81 #L 2.76 L Mean Corpuscular 93.6 90.2 Volume Mean Corpuscular 29.9 30.1 Hemoglobin Mean Corpuscular 31.9 L 33.3 Hemoglobin Concent Red Cell 17.8 H 17.4 H Distribution Width Platelet Count 16 *L 14 *L Mean Platelet Volume Immature 0.500 H 0.500 H Granulocytes % Neutrophils % 95.3 H Segmented 67 Neutrophils % (Manual) Band Neutrophils % 26 H (Manual) Lymphocytes % 2.3 L Lymphocytes % 3 L (Manual) Reactive Lymphocytes 1 H % (Manual) Monocytes % 1.0 Monocytes % (Manual) 1 Eosinophils % 0.0 Basophils % 0.9 Metamyelocytes % 1 H (manual) Nucleated Red Blood 0.3 H 0.5 H Cells % Immature 0.050 H 0.040 H Granulocytes # Neutrophils # 8.9 H Neutrophils # 6.5 (Manual) Band Neutrophils # 2.4 H Lymphocytes (Manual) 0.2 L Lymphocytes # 0.2 L Reactive Lymphocytes 0.0 # Monocytes # 0.1 L Monocytes # (Manual) 0.0 L Eosinophils # 0.0 Basophils # 0.1 Metamyelocytes # 0.0 Nucleated Red Blood 0.0 Cells # Platelet Estimate DECREASED Giant Platelets 3 H Polychromasia 1+ Hypochromasia 1+ Poikilocytosis 2+ Anisocytosis 1+ Tear Drop Cells 1+ Ovalocytes 1+ Stomatocytes 1+ Sodium Level 143 Potassium Level 4.1 Chloride Level 107 Carbon Dioxide Level 20 L Anion Gap 16 H Blood Urea Nitrogen 62 H Creatinine 0.71 Est Glomerular > 60 Filtrat Rate mL/min Glucose Level 50 #*L Calcium Level 8.6 Phosphorus Level 2.3 L Magnesium Level Pending Lactic Acid Level 5.0 *H Test 12/29/18 07:48 12/29/18 08:15 Sodium Level 140 Potassium Level 4.2 Chloride Level 106 Carbon Dioxide Level 24 Anion Gap 10 # Blood Urea Nitrogen 70 H Creatinine 0.83 Est Glomerular > 60 Filtrat Rate mL/min Glucose Level 78 Calcium Level 8.8 Magnesium Level 1.8 Bedside Glucose 76 Medications Medication Current Medications Glucose (Glutose) 15 gm Q15M PRN PO DECREASED GLUCOSE; Start 11/23/18 at 13:30 Glucose (Glutose) 22.5 gm Q15M PRN PO DECREASED GLUCOSE; Start 11/23/18 at 13:30 Dextrose (D50w Syringe) 25 ml Q15M PRN IV DECREASED GLUCOSE Last administered on 12/09/18at 13:59; Admin Dose 25 ML; Start 11/23/18 at 13:30 Dextrose (D50w Syringe) 50 ml Q15M PRN IV DECREASED GLUCOSE Last administered on 12/10/18at 13:14; Admin Dose 50 ML; Start 11/23/18 at 13:30 Glucagon (Glucagen) 1 mg Q15M PRN IM DECREASED GLUCOSE; Start 11/23/18 at 13:30 Glucose (Glutose) 15 gm Q15M PRN BUCCAL DECREASED GLUCOSE; Start 11/23/18 at 13:30 Alteplase, Recombinant (Cathflo (Activase)) 2 mg MAY REPEAT X1 PRN CATHETER IF CATHETER REMAINS OCCULUDED Last administered on 12/02/18at 15:47; Admin Dose 2 MG; Start 11/26/18 at 03:00 Albumin Human 100 ml @ 100 mls/hr DURING DIALYSIS PRN IV HYPOTENSION DURING HD Last administered on 12/28/18 08:00; Admin Dose 100 MLS/HR; Start 11/26/18 at 14:00 Levothyroxine Sodium (Synthroid) 75 mcg BEFORE BREAKFAST NGT Last administered on 12/29/18 06:00; Admin Dose 75 MCG; Start 11/29/18 at 07:00 Collagenase (Santyl) 1 applic DAILY TOP Last administered on 12/28/18 08:29; Admin Dose 1 APPLIC; Start 12/01/18 at 16:30 Acetaminophen (Tylenol Liquid) 650 mg Q6H PRN NGT PAIN LEVEL 1-3 OR FEVER Last administered on 12/28/18 06:03; Admin Dose 650 MG; Start 12/06/18 at 09:00 Midodrine (Proamatine) 5 mg TID@09,13,17 GTB Last administered on 12/29/18 06:41; Admin Dose 5 MG; Start 12/07/18 at 09:00 Epoetin Margarito-epbx (RETACRIT(esrd)) 10,000 unit MoWeFr@1700 SC Last administered on 12/28/18 16:54; Admin Dose 10,000 UNIT; Start 12/11/18 at 17:00 Eye Lubricant (Artificial Tears Oph) 2 drop QID BOTH EYES Last administered on 12/28/18 21:37; Admin Dose 2 DROP; Start 12/10/18 at 09:00 Ertapenem 0.5 gm/ Sodium Chloride 100 ml @ 200 mls/hr Q24H IVPB Last administered on 12/28/18 17:00; Admin Dose 200 MLS/HR; Start 12/15/18 at 18:00 Lorazepam (Ativan) 1 mg Q4H PRN IV AGITATION/ANXIETY Last administered on 12/19/18 05:41; Admin Dose 1 MG; Start 12/15/18 at 11:00 Morphine Sulfate (morphine) 1 mg Q4H PRN IV SEVERE PAIN LEVEL 7-10 Last administered on 12/19/18 03:37; Admin Dose 1 MG; Start 12/15/18 at 11:00 Metoclopramide HCl (Reglan) 5 mg Q8 IV Last administered on 12/29/18at 05:56; Admin Dose 5 MG; Start 12/17/18 at 12:00 Miscellaneous Information 1 ea BID XX Last administered on 12/25/18at 16:20; Admin Dose 1 EA; Start 12/21/18 at 15:00 Miscellaneous Information 1 ea BID XX ; Start 12/23/18 at 14:00 Fluconazole (Diflucan) 100 mg DAILY PO Last administered on 12/28/18at 08:29; Admin Dose 100 MG; Start 12/25/18 at 13:30 Methylprednisolone Sodium Succinate (Solu-Medrol) 40 mg DAILY IV Last administered on 12/28/18at 08:29; Admin Dose 40 MG; Start 12/28/18 at 09:00; Stop 01/01/19 at 17:59 Albuterol (Ventolin Hfa) 4 puff Q4H RESP THERAPY INH Last administered on 12/29/18at 05:39; Admin Dose 4 PUFF; Start 12/28/18 at 05:00 Norepinephrine 250 ml @ 1.875 mls/ hr TITRATE IV ; Start 12/29/18 at 09:30 Diltiazem HCl 125 ml @ 5 mls/hr TITRATE IV ; Start 12/29/18 at 09:30 RENÉE SKINNER December 29, 2018 10:04
[2018-12-29] MEDS: BALSAM PERU/CASTOR OIL 60 GM TUBE TOP SCH ×3 (12:12→21:52)
[2018-12-29] MEDS: METHYLPREDNISOLONE 40 MG INJ IV SCH (12:12)
[2018-12-29] MEDS ORDERED: SOD CHLORIDE 0.9% 250 ML IV* ONE (12:24)
--- NOTE | 2018-12-29 13:32 | QN ---
Documentation Comment Biomedical ethics committee The biomedical ethics committee met to discuss the care and situation of Mylene Renee. The patient's common-law and his sister were present. Based on review of the patient's situation which including premorbid end-stage renal disease, pancytopenia, infected vascular graft, cachexia, and recent chronic respiratory failure requiring tracheostomy and PEG were discussed. Patient has taken a turn for the worse and the possibility exist of the patient needing to be formally resuscitated. Position of the primary care team and based on the situation and agreed by the physicians of the biomedical ethics committee that if the patient were to undergo a cardiac arrest that the likelihood of success with prolonged survival of more than 5 days would be limited at best and a 6- month survival would be nil. The biomedical ethics committee is in agreement with the primary care team that further escalation of care specifically card iopulmonary resuscitation on the present circumstances would not offer medical benefits and in fact would not create more harm than good. It is unlikely to be medically effective and would in fact be futile. As such the patient's family and the biomedical ethics committee are in agreement that if the patient were to undergo cardiac arrest we would use what chemical means we could but she would not receive chest compressions or DC cardioversion. These note that her overall prognosis is limited. BRIANNA Hinds MD, MD December 29, 2018 13:32
--- NOTE | 2018-12-29 13:52 | CONS ---
Assessment/Plan Assessment/Plan Hospital Course (Demo Recall) Patient was transferred to ICU for symptomatic hypotension started on Levophed drip she is lethargic in no distress afebrile WBC today 7.6 platelets 14 Chest x-ray this morning revealed bilateral perihilar infiltrates worse on the right and mild pulmonary vascular congestion Antimicrobials: Diflucan Invanz Microbiology: Blood culture on admission grew Klebsiella ESBL, repeat blood cultures negative, left thigh wound culture grew Klebsiella ESBL and Leah albicans Allergy: Zosyn, vancomycin Indwelling: Right upper thigh Davie catheter, left femoral triple-lumen catheter, trach Physical examination: This is a chronically ill-appearing cachectic middle-aged woman who is laying comfortably in bed. Head atraumatic normocephalic. Neck is supple. Chest rise symmetrical. Breath sounds diminished bases. Heart: S1-S2, irreg. Abdomen distended. Bowel sounds hypoactive. Extremities with bilateral edema, cyanotic, multiple ecchymotic areas and bruises, left upper thigh dres sing present Assessment: 1. Septic shock 2. Healthcare associated pneumonia 3. Respiratory failure, acute on chronic, status post tracheostomy on this admission 4. Peripheral arterial disease status post left lower extremity bypass graft that became infected with wound culture grew Klebsiella ESBL 5. End-stage renal disease, hemodialysis dependent 6. Dysphagia 7. Coronary artery disease status post atrial fibrillation, status post permanent pacemaker 8. Failure to thrive with severe cachexia 9 . Unstageable sacral decubitus 10. History of peritoneal dialysis with peritoneal dialysis still in place 11. Thrombocytopenia 12. S/p B mastoiditis and acute sinusitis Plan: Patient is doing poorly were going to add Clindamycin, change Invanz to meropenem, continue fluconazole. Prognosis very poor Consultation Date/Type/Reason Admit Date/Time Nov 21, 2018 at 04:53 Initial Consult Date Type of Consult id Requesting Provider: RIKA STOCK Date/Time of Note DATE: 12/29/18 TIME: 13:48 Exam/Review of Systems Exam Vitals Vital Signs Date Temp Pulse Resp B/P (MAP) Pulse Ox O2 O2 Flow FiO2 Time Delivery Rate 12/29/18 80 20 83/54 (64) 100 12:30 12/29/18 97.6 Mechanical 12:00 Ventilator 12/29/18 100 11:35 Intake and Output 12/28/18 12/28/18 12/29/18 1515:00 23:00 07:00 IntakeIntake Total 100 ml 470 ml 960 ml OutputOutput Total 1600 ml 620 ml 50 ml BalanceBalance -1500 ml -150 ml 910 ml Results Result Diagram: 12/29/18 0744 12/29/18 0748 Results 24hrs Laboratory Tests Test 12/28/18 18:11 12/29/18 01:50 12/29/18 07:14 12/29/18 07:44 Hemoglobin 6.1 *L 8.4 #L 8.3 L Hematocrit 18.4 L 26.3 #L 24.9 L Stool Occult Blood POSITIVE White Blood Count 9.3 # 7.6 Red Blood Count 2.81 #L 2.76 L Mean Corpuscular 93.6 90.2 Volume Mean Corpuscular 29.9 30.1 Hemoglobin Mean Corpuscular 31.9 L 33.3 Hemoglobin Concent Red Cell 17.8 H 17.4 H Distribution Width Platelet Count 16 *L 14 *L Mean Platelet Volume Immature 0.500 H 0.500 H Granulocytes % Neutrophils % 95.3 H Segmented 67 Neutrophils % (Manual) Band Neutrophils % 26 H (Manual) Lymphocytes % 2.3 L Lymphocytes % 3 L (Manual) Reactive Lymphocytes 1 H % (Manual) Monocytes % 1.0 Monocytes % (Manual) 1 Eosinophils % 0.0 Basophils % 0.9 Metamyelocytes % 1 H (manual) Nucleated Red Blood 0.3 H 0.5 H Cells % Immature 0.050 H 0.040 H Granulocytes # Neutrophils # 8.9 H Neutrophils # 6.5 (Manual) Band Neutrophils # 2.4 H Lymphocytes (Manual) 0.2 L Lymphocytes # 0.2 L Reactive Lymphocytes 0.0 # Monocytes # 0.1 L Monocytes # (Manual) 0.0 L Eosinophils # 0.0 Basophils # 0.1 Metamyelocytes # 0.0 Nucleated Red Blood 0.0 Cells # Platelet Estimate DECREASED Giant Platelets 3 H Polychromasia 1+ Hypochromasia 1+ Poikilocytosis 2+ Anisocytosis 1+ Tear Drop Cells 1+ Ovalocytes 1+ Stomatocytes 1+ Sodium Level 143 Potassium Level 4.1 Chloride Level 107 Carbon Dioxide Level 20 L Anion Gap 16 H Blood Urea Nitrogen 62 H Creatinine 0.71 Est Glomerular > 60 Filtrat Rate mL/min Glucose Level 50 #*L Calcium Level 8.6 Phosphorus Level 2.3 L Magnesium Level 2.0 Lactic Acid Level 5.0 *H Test 12/29/18 07:48 12/29/18 08:15 Sodium Level 140 Potassium Level 4.2 Chloride Level 106 Carbon Dioxide Level 24 Anion Gap 10 # Blood Urea Nitrogen 70 H Creatinine 0.83 Est Glomerular > 60 Filtrat Rate mL/min Glucose Level 78 Calcium Level 8.8 Magnesium Level 1.8 Bedside Glucose 76 Medications Medication Current Medications Glucose (Glutose) 15 gm Q15M PRN PO DECREASED GLUCOSE; Start 11/23/18 at 13:30 Glucose (Glutose) 22.5 gm Q15M PRN PO DECREASED GLUCOSE; Start 11/23/18 at 13:3 0 Dextrose (D50w Syringe) 25 ml Q15M PRN IV DECREASED GLUCOSE Last administered on 12/09/18at 13:59; Admin Dose 25 ML; Start 11/23/18 at 13:30 Dextrose (D50w Syringe) 50 ml Q15M PRN IV DECREASED GLUCOSE Last administered on 12/10/18at 13:14; Admin Dose 50 ML; Start 11/23/18 at 13:30 Glucagon (Glucagen) 1 mg Q15M PRN IM DECREASED GLUCOSE; Start 11/23/18 at 13:30 Glucose (Glutose) 15 gm Q15M PRN BUCCAL DECREASED GLUCOSE; Start 11/23/18 at 13:30 Alteplase, Recombinant (Cathflo (Activase)) 2 mg MAY REPEAT X1 PRN CATHETER IF CATHETER REMAINS OCCULUDED Last administered on 12/02/18at 15:47; Admin Dose 2 MG; Start 11/26/18 at 03:00 Albumin Human 100 ml @ 100 mls/hr DURING DIALYSIS PRN IV HYPOTENSION DURING HD Last administered on 12/28/18at 08:00; Admin Dose 100 MLS/HR; Start 11/26/18 at 14:00 Levothyroxine Sodium (Synthroid) 75 mcg BEFORE BREAKFAST NGT Last administered on 12/29/18at 06:00; Admin Dose 75 MCG; Start 11/29/18 at 07:00 Collagenase (Santyl) 1 applic DAILY TOP Last administered on 12/29/18at 10:35; Admin Dose 1 APPLIC; Start 12/01/18 at 16:30 Acetaminophen (Tylenol Liquid) 650 mg Q6H PRN NGT PAIN LEVEL 1-3 OR FEVER Last administered on 12/28/18 06:03; Admin Dose 650 MG; Start 12/06/18 at 09:00 Midodrine (Proamatine) 5 mg TID@,13,17 GTB Last administered on 12/29/18 12 :11; Admin Dose 5 MG; Start 12/07/18 at 09:00 Epoetin Margarito-epbx (RETACRIT(esrd)) 10,000 unit MoWeFr@1700 SC Last administered on 12/28/18 16:54; Admin Dose 10,000 UNIT; Start 12/11/18 at 17:00 Eye Lubricant (Artificial Tears Oph) 2 drop QID BOTH EYES Last administered on 12/28/18 21:37; Admin Dose 2 DROP; Start 12/10/18 at 09:00 Ertapenem 0.5 gm/ Sodium Chloride 100 ml @ 200 mls/hr Q24H IVPB Last administered on 12/28/18 17:00; Admin Dose 200 MLS/HR; Start 12/15/18 at 18:00 Lorazepam (Ativan) 1 mg Q4H PRN IV AGITATION/ANXIETY Last administered on 12/19/18 05:41; Admin Dose 1 MG; Start 12/15/18 at 11:00 Morphine Sulfate (morphine) 1 mg Q4H PRN IV SEVERE PAIN LEVEL 7-10 Last administered on 12/19/18 03:37; Admin Dose 1 MG; Start 12/15/18 at 11:00 Metoclopramide HCl (Reglan) 5 mg Q8 IV Last administered on 12/29/18 05:56; Admin Dose 5 MG; Start 12/17/18 at 12:00 Miscellaneous Information 1 ea BID XX Last administered on 12/25/18 16:20; Admin Dose 1 EA; Start 12/21/18 at 15:00 Miscellaneous Information 1 ea BID XX ; Start 12/23/18 at 14:00 Fluconazole (Diflucan) 100 mg DAILY PO Last administered on 12/29/18 10:35; Admin Dose 100 MG; Start 12/25/18 at 13:30 Methylprednisolone Sodium Succinate (Solu-Medrol) 40 mg DAILY IV Last administered on 12/29/18 12:12; Admin Dose 40 MG; Start 12/28/18 at 09:00; Stop 01/01/19 at 17:59 Albuterol (Ventolin Hfa) 4 puff Q4H RESP THERAPY INH Last administered on 12/29/18at 05:39; Admin Dose 4 PUFF; Start 12/28/18 at 05:00 Norepinephrine 250 ml @ 1.875 mls/ hr TITRATE IV Last administered on 12/29/18at 09:00; Admin Dose 9.375 MLS/HR; Start 12/29/18 at 09:30 Diltiazem HCl 125 ml @ 5 mls/hr TITRATE IV ; Start 12/29/18 at 09:30 KELSIE ELY NP December 29, 2018 13:52
[2018-12-29] MEDS ORDERED: VANCOMYCIN IV PER PHARMACY XX SCH (14:00)
[2018-12-29] MEDS: CLINDAMYCIN 600 MG/D5W (PMX) 50 ML IVPB SCH ×2 (15:30→21:51)
--- NOTE | 2018-12-29 18:30 | PN ---
Date/Time of Note Date/Time of Note DATE: 12/29/18 TIME: 18:29 Assessment/Plan Lines/Catheters IV Catheter Type (from Nrsg): Mid Line Moon in Place (from Nrsg): No Assessment/Plan Assessment/Plan Respiratory failure post tracheostomy We will continue vent support Trach care Place central line for IV management Subjective 24 Hr Interval Summary Constitutional: improved Pain Control: mild Exam/Review of Systems Vital Signs Vitals Vital Signs Date Temp Pulse Resp B/P (MAP) Pulse Ox O2 O2 Flow FiO2 Time Delivery Rate 12/29/18 82 21 100 100 17:30 12/29/18 123/66 17:30 (85) 12/29/18 Mechanical 17:00 Ventilator 12/29/18 97.3 16:00 Intake and Output 12/28/18 12/28/18 12/29/18 1515:00 23:00 07:00 IntakeIntake Total 100 ml 470 ml 960 ml OutputOutput Total 1600 ml 620 ml 50 ml BalanceBalance -1500 ml -150 ml 910 ml Exam Eyes: nl conjunctiva, EOMI, nl lids, nl sclera ENMT: nl external ears & nose, nl lips & teeth, nl nasal mucosa & septum, mucosa pink and moist Neck: supple, non-tender Respiratory: clear to auscultation, normal air movement Cardiovascular: regular rate and rhythm, nl pulses Gastrointestinal: soft, nl liver, spleen, non-tender Results Result Diagram: 12/29/18 0744 12/29/18 0748 TAE PAN MD December 29, 2018 18:30
--- NOTE | 2018-12-29 18:41 | CONS ---
Assessment/Plan Assessment/Plan Hospital Course (Demo Recall) 58 yo with septic shock, multiorgan failure, end stage renal disease, ventilator dependency, severe cachexia, and severe thrombocytopenia with skin oozing, who had a few hours of rapid atrial fibrillation this morning, now in sinus rhythm. Prognosis is grave. Recommendations: Will start amiodarone via g-tube to reduce risk of recurrence of atrial fibrillation Would not give diltiazem IV in the setting of hypotension, if rhythm control acutely needed would give iv amiodarone Clearly not a candidate for anticoagulation given thrombocytopenia and overall prognosis Consultation Date/Type/Reason Admit Date/Time Nov 21, 2018 at 04:53 Date of Consultation: December 29, 2018 Type of Consult Cardiology Reason for Consultation atrial fibrillation Requesting Provider: RENÉE SKINNER Date/Time of Note DATE: 12/29/18 TIME: 18:31 Hx of Present Illness Unfortunate 58 yo woman who was admitted 11/21/2018, has a trach and peg, with sepsis and severe thrombocytopenia. She developed hypotension and atrial fibrillation with rapid rate of about 120 bpm this morning and was transferred to the ICU. She converted to NSR spontaneously around 10 am. She cannot provide history. At present she is on neosynephrine as a pressor, is awake but not responsive. Subjective hx not possible: pt non-verbal Past Medical History Medical History: diabetes, renal disease Home Meds Reported Medications Folic Acid* (Folic Acid*) 1 Mg Tablet, 1 MG PO DAILY, TAB 08/10/18 Amiodarone Hcl* (Amiodarone Hcl*) 200 Mg Tablet, 200 MG PO BID, #60 TAB 08/10/18 Pantoprazole* (Protonix*) 40 Mg Tablet.dr, 40 MG PO DAILY, TAB 08/10/18 Multivit/Ca Carb/B Cmplx/Fa* (Iram-Xiomara*) 1 Tab Tab, 1 TAB PO DAILY, TAB 08/10/18 Levothyroxine Sodium* (Levoxyl*) 75 Mcg Tablet, 75 MCG PO BEFORE BREAKFAST, #30 TAB 08/10/18 Medications Current Medications Glucose (Glutose) 15 gm Q15M PRN PO DECREASED GLUCOSE; Start 11/23/18 at 13:30 Glucose (Glutose) 22.5 gm Q15M PRN PO DECREASED GLUCOSE; Start 11/23/18 at 13:30 Dextrose (D50w Syringe) 25 ml Q15M PRN IV DECREASED GLUCOSE Last administered on 12/09/18 13:59; Admin Dose 25 ML; Start 11/23/18 at 13:30 Dextrose (D50w Syringe) 50 ml Q15M PRN IV DECREASED GLUCOSE Last administered on 12/10/18 13:14; Admin Dose 50 ML; Start 11/23/18 at 13:30 Glucagon (Glucagen) 1 mg Q15M PRN IM DECREASED GLUCOSE; Start 11/23/18 at 13:30 Glucose (Glutose) 15 gm Q15M PRN BUCCAL DECREASED GLUCOSE; Start 11/23/18 at 13:30 Alteplase, Recombinant (Cathflo (Activase)) 2 mg MAY REPEAT X1 PRN CATHETER IF CATHETER REMAINS OCCULUDED Last administered on 12/02/18 15:47; Admin Dose 2 MG; Start 11/26/18 at 03:00 Albumin Human 100 ml @ 100 mls/hr DURING DIALYSIS PRN IV HYPOTENSION DURING HD Last administered on 12/28/18 08:00; Admin Dose 100 MLS/HR; Start 11/26/18 at 14:00 Levothyroxine Sodium (Synthroid) 75 mcg BEFORE BREAKFAST NGT Last administered on 12/29/18 06:00; Admin Dose 75 MCG; Start 11/29/18 at 07:00 Collagenase (Santyl) 1 applic DAILY TOP Last administered on 12/29/18 10:35; Admin Dose 1 APPLIC; Start 12/01/18 at 16:30 Acetaminophen (Tylenol Liquid) 650 mg Q6H PRN NGT PAIN LEVEL 1-3 OR FEVER Last administered on 12/28/18 06:03; Admin Dose 650 MG; Start 12/06/18 at 09:00 Midodrine (Proamatine) 5 mg TID@09,13,17 GTB Last administered on 12/29/18 12:11; Admin Dose 5 MG; Start 12/07/18 at 09:00 Epoetin Margarito-epbx (RETACRIT(esrd)) 10,000 unit MoWeFr@1700 SC Last administered on 12/28/18 16:54; Admin Dose 10,000 UNIT; Start 12/11/18 at 17:00 Eye Lubricant (Artificial Tears Oph) 2 drop QID BOTH EYES Last administered on 12/28/18 21:37; Admin Dose 2 DROP; Start 12/10/18 at 09:00 Lorazepam (Ativan) 1 mg Q4H PRN IV AGITATION/ANXIETY Last administered on 12/19/18 05:41; Admin Dose 1 MG; Start 12/15/18 at 11:00 Morphine Sulfate (morphine) 1 mg Q4H PRN IV SEVERE PAIN LEVEL 7-10 Last administered on 12/19/18 03:37; Admin Dose 1 MG; Start 12/15/18 at 11:00 Metoclopramide HCl (Reglan) 5 mg Q8 IV Last administered on 12/29/18 13:53; Admin Dose 5 MG; Start 12/17/18 at 12:00 Miscellaneous Information 1 ea BID XX Last administered on 12/25/18 16:20; Admin Dose 1 EA; Start 12/21/18 at 15:00 Miscellaneous Information 1 ea BID XX ; Start 12/23/18 at 14:00 Fluconazole (Diflucan) 100 mg DAILY PO Last administered on 12/29/18at 10:35; Admin Dose 100 MG; Start 12/25/18 at 13:30 Methylprednisolone Sodium Succinate (Solu-Medrol) 40 mg DAILY IV Last administered on 12/29/18 12:12; Admin Dose 40 MG; Start 12/28/18 at 09:00; Stop 01/01/19 at 17:59 Albuterol (Ventolin Hfa) 4 puff Q4H RESP THERAPY INH Last administered on 12/29/18 16:36; Admin Dose 4 PUFF; Start 12/28/18 at 05:00 Norepinephrine 250 ml @ 1.875 mls/ hr TITRATE IV Last administered on 12/29/18 09:00; Admin Dose 9.375 MLS/HR; Start 12/29/18 at 09:30 Diltiazem HCl 125 ml @ 5 mls/hr TITRATE IV ; Start 12/29/18 at 09:30 Meropenem/Sodium Chloride 50 ml @ 100 mls/hr Q12 IVPB ; Start 12/29/18 at 21:00 Clindamycin HCl/ Dextrose 50 ml @ 100 mls/hr Q8 IVPB Last administered on 12/29/18 15:30; Admin Dose 100 MLS/HR; Start 12/29/18 at 15:00 Allergies: Coded Allergies: Penicillins (Verified Allergy, Unknown, 12/16/18) tazobactam (Verified Allergy, Unknown, 12/16/18) vancomycin (Verified Allergy, Unknown, 12/16/18) Past Surgical History Past Surgical Hx: other (pacemaker) Social History Alcohol Use: none Smoking Status: Never smoker Drug Use: none Exam/Review of Systems Vital Signs Vitals Vital Signs Date Temp Pulse Resp B/P (MAP) Pulse Ox O2 O2 Flow FiO2 Time Delivery Rate 12/29/18 82 21 100 100 17:30 12/29/18 123/66 17:30 (85) 12/29/18 Mechanical 17:00 Ventilator 12/29/18 97.3 16:00 Intake and Output 12/28/18 12/28/18 12/29/18 1515:00 23:00 07:00 IntakeIntake Total 100 ml 470 ml 960 ml OutputOutput Total 1600 ml 620 ml 50 ml BalanceBalance -1500 ml -150 ml 910 ml Exam Constitutional: frail, other (cachectic) Psych: other (unresponsive) Eyes: nl lids, icteric ENMT: nl external ears & nose, other (mouth dry, poor dentition, temporal wasting) Neck: No jvd, No bruits Respiratory: clear to auscultation Cardiovascular: regular rate and rhythm; No jugular venous distention (JVD), No murmurs/extra sounds Gastrointestinal: soft, non-tender Musculoskeletal: No muscle tone (muscle wasting) Extremities: edema (anasarca) Neurological: unresponsive Skin: ecchymosis (diffuse severe ecchymosis), other (weeping of arms which are both covered in gauze) Labs Result Diagram: 12/29/18 0744 12/29/18 0748 Results 24hrs Laboratory Tests Test 12/29/18 01:50 12/29/18 07:14 12/29/18 07:44 12/29/18 07:48 Stool Occult Blood POSITIVE White Blood Count 9.3 # 7.6 Red Blood Count 2.81 #L 2.76 L Hemoglobin 8.4 #L 8.3 L Hematocrit 26.3 #L 24.9 L Mean Corpuscular 93.6 90.2 Volume Mean Corpuscular 29.9 30.1 Hemoglobin Mean Corpuscular 31.9 L 33.3 Hemoglobin Concent Red Cell 17.8 H 17.4 H Distribution Width Platelet Count 16 *L 14 *L Mean Platelet Volume Immature 0.500 H 0.500 H Granulocytes % Neutrophils % 95.3 H Segmented 67 Neutrophils % (Manual) Band Neutrophils % 26 H (Manual) Lymphocytes % 2.3 L Lymphocytes % 3 L (Manual) Reactive Lymphocytes 1 H % (Manual) Monocytes % 1.0 Monocytes % (Manual) 1 Eosinophils % 0.0 Basophils % 0.9 Metamyelocytes % 1 H (manual) Nucleated Red Blood 0.3 H 0.5 H Cells % Immature 0.050 H 0.040 H Granulocytes # Neutrophils # 8.9 H Neutrophils # 6.5 (Manual) Band Neutrophils # 2.4 H Lymphocytes (Manual) 0.2 L Lymphocytes # 0.2 L Reactive Lymphocytes 0.0 # Monocytes # 0.1 L Monocytes # (Manual) 0.0 L Eosinophils # 0.0 Basophils # 0.1 Metamyelocytes # 0.0 Nucleated Red Blood 0.0 Cells # Platelet Estimate DECREASED Giant Platelets 3 H Polychromasia 1+ Hypochromasia 1+ Poikilocytosis 2+ Anisocytosis 1+ Tear Drop Cells 1+ Ovalocytes 1+ Stomatocytes 1+ Sodium Level 143 140 Potassium Level 4.1 4.2 Chloride Level 107 106 Carbon Dioxide Level 20 L 24 Anion Gap 16 H 10 # Blood Urea Nitrogen 62 H 70 H Creatinine 0.71 0.83 Est Glomerular > 60 > 60 Filtrat Rate mL/min Glucose Level 50 #*L 78 Calcium Level 8.6 8.8 Phosphorus Level 2.3 L Magnesium Level 2.0 1.8 Lactic Acid Level 5.0 *H Test 12/29/18 08:15 Bedside Glucose 76 Imaging Imaging Telemetry from earlier reviewed, rapid afib at 120 bpm. Telemetry at present demonstrates nsr at 98 bpm. Medications Medications Current Medications Glucose (Glutose) 15 gm Q15M PRN PO DECREASED GLUCOSE; Start 11/23/18 at 13:30 Glucose (Glutose) 22.5 gm Q15M PRN PO DECREASED GLUCOSE; Start 11/23/18 at 13:30 Dextrose (D50w Syringe) 25 ml Q15M PRN IV DECREASED GLUCOSE Last administered o n 12/09/18at 13:59; Admin Dose 25 ML; Start 11/23/18 at 13:30 Dextrose (D50w Syringe) 50 ml Q15M PRN IV DECREASED GLUCOSE Last administered on 12/10/18 13:14; Admin Dose 50 ML; Start 11/23/18 at 13:30 Glucagon (Glucagen) 1 mg Q15M PRN IM DECREASED GLUCOSE; Start 11/23/18 at 13:30 Glucose (Glutose) 15 gm Q15M PRN BUCCAL DECREASED GLUCOSE; Start 11/23/18 at 13:30 Alteplase, Recombinant (Cathflo (Activase)) 2 mg MAY REPEAT X1 PRN CATHETER IF CATHETER REMAINS OCCULUDED Last administered on 12/02/18 15:47; Admin Dose 2 MG; Start 11/26/18 at 03:00 Albumin Human 100 ml @ 100 mls/hr DURING DIALYSIS PRN IV HYPOTENSION DURING HD Last administered on 12/28/18 08:00; Admin Dose 100 MLS/HR; Start 11/26/18 at 14:00 Levothyroxine Sodium (Synthroid) 75 mcg BEFORE BREAKFAST NGT Last administered on 12/29/18 06:00; Admin Dose 75 MCG; Start 11/29/18 at 07:00 Collagenase (Santyl) 1 applic DAILY TOP Last administered on 12/29/18 10:35; Admin Dose 1 APPLIC; Start 12/01/18 at 16:30 Acetaminophen (Tylenol Liquid) 650 mg Q6H PRN NGT PAIN LEVEL 1-3 OR FEVER Last administered on 12/28/18 06:03; Admin Dose 650 MG; Start 12/06/18 at 09:00 Midodrine (Proamatine) 5 mg TID@,13,17 GTB Last administered on 12/29/18 12:11; Admin Dose 5 MG; Start 12/07/18 at 09:00 Epoetin Margarito-epbx (RETACRIT(esrd)) 10,000 unit MoWeFr@1700 SC Last administered on 12/28/18 16:54; Admin Dose 10,000 UNIT; Start 12/11/18 at 17:00 Eye Lubricant (Artificial Tears Oph) 2 drop QID BOTH EYES Last administered on 12/28/18 21:37; Admin Dose 2 DROP; Start 12/10/18 at 09:00 Lorazepam (Ativan) 1 mg Q4H PRN IV AGITATION/ANXIETY Last administered on 5/11/19at 05:41; Admin Dose 1 MG; Start 12/15/18 at 11:00 Morphine Sulfate (morphine) 1 mg Q4H PRN IV SEVERE PAIN LEVEL 7-10 Last administered on 12/19/18at 03:37; Admin Dose 1 MG; Start 12/15/18 at 11:00 Metoclopramide HCl (Reglan) 5 mg Q8 IV Last administered on 12/29/18at 13:53; Admin Dose 5 MG; Start 12/17/18 at 12:00 Miscellaneous Information 1 ea BID XX Last administered on 12/25/18at 16:20; Admin Dose 1 EA; Start 12/21/18 at 15:00 Miscellaneous Information 1 ea BID XX ; Start 12/23/18 at 14:00 Fluconazole (Diflucan) 100 mg DAILY PO Last administered on 12/29/18at 10:35; Admin Dose 100 MG; Start 12/25/18 at 13:30 Methylprednisolone Sodium Succinate (Solu-Medrol) 40 mg DAILY IV Last administered on 12/29/18at 12:12; Admin Dose 40 MG; Start 12/28/18 at 09:00; St op 01/01/19 at 17:59 Albuterol (Ventolin Hfa) 4 puff Q4H RESP THERAPY INH Last administered on 12/29at 16:36; Admin Dose 4 PUFF; Start 12/28/18 at 05:00 Norepinephrine 250 ml @ 1.875 mls/ hr TITRATE IV Last administered on 12/29/18at 09:00; Admin Dose 9.375 MLS/HR; Start 12/29/18 at 09:30 Diltiazem HCl 125 ml @ 5 mls/hr TITRATE IV ; Start 12/29/18 at 09:30 Meropenem/Sodium Chloride 50 ml @ 100 mls/hr Q12 IVPB ; Start 12/29/18 at 21:00 Clindamycin HCl/ Dextrose 50 ml @ 100 mls/hr Q8 IVPB Last administered on 12/29/18at 15:30; Admin Dose 100 MLS/HR; Start 12/29/18 at 15:00 SANDRA MEMBRENO December 29, 2018 18:41
--- NOTE | 2018-12-29 19:51 | OPR ---
DATE OF OPERATION: PREOPERATIVE DIAGNOSIS: Respiratory failure. POSTOPERATIVE DIAGNOSIS: Respiratory failure. PROCEDURE: Left femoral central line placement. SURGEON: Tae Recinos MD ANESTHESIA: Local. CONSENT: Risks, benefits, complications, and alternative therapies were explained to the patient and the family. Consent obtained. DESCRIPTION OF PROCEDURE: The patient was placed in supine position, prepped and draped in usual ishaan rile fashion. Timeout was called. Access was gained to the left femoral vein. Guidewire was advanc ed through without any difficulty. Subcutaneous tissues were dilated. Central line advanced over a guidewire and secured to skin using silk sutures. Both ports of the catheter were aspirated and inje cted using saline solution. The patient tolerated the procedure well. Dictated By: TAE RECINOS MD FM/NTS Conf#: [id number] DID#: [id number] CC: RENÉE BATES MD;*EndCC*
[2018-12-29] MEDS: AMIODARONE 200 MG TAB GTB SCH (21:51)
[2018-12-29] MEDS: MEROPENEM 500MG/50 ML (PMX) 50 ML IVPB SCH (22:19)
[2018-12-30] VITALS (99 sets, daily range): BP systolic 62–176; BP diastolic 46–85; PULSE 63–97; RESP 18–35
[2018-12-30] MEDS: ALBUTEROL HFA 8 GM INHALER INH SCH ×2 (01:00→05:46)
[2018-12-30] MEDS: CLINDAMYCIN 600 MG/D5W (PMX) 50 ML IVPB SCH ×3 (06:04→21:37)
[2018-12-30] MEDS: METOCLOPRAMIDE 10 MG INJ IV SCH ×3 (06:05→21:22)
[2018-12-30] MEDS: LEVOTHYROXINE 75 MCG TAB GTB SCH (06:05)
[2018-12-30] MEDS ORDERED: ALBUTEROL HFA 8 GM INHALER INH PRN (08:00)
--- NOTE | 2018-12-30 08:08 | PN ---
DATE: 12/30/2018 SUBJECTIVE: The patient is in critical condition on full ventilatory support, on pressor support. N o other acute events noted. No hemoptysis, hematemesis or hematochezia. OBJECTIVE: VITAL SIGNS: Blood pressure is 115/58, respirations 23, pulse 81, temperature 98.6. HEENT: Head is normocephalic. NECK: Supple. HEART: Regular rate. LUNGS: Show diminished breath sounds at the base. ABDOMEN: Soft, nontender to palpation without rebound or guarding. EXTREMITIES: Negative for clubbing, cyanosis, no edema. DERMATOLOGIC: No rashes. MUSCULOSKELETAL: No joint effusion. NEUROLOGIC: No change in exam. MEDICATIONS: Reviewed. LABORATORY DATA: From 12/30/2018 was reviewed. IMAGING STUDIES: Reviewed. ASSESSMENT AND PLAN: 1. End-stage renal disease. The patient is scheduled for dialysis today. We will dialyze if the pa tient is hemodynamically stable. 2. Anemia. The patient is pending blood transfusion. We will continue to monitor hemoglobin and he matocrit levels. 3. Volume overload with diffuse anasarca. Attempt ultrafiltration with dialysis if hemodynamically stable. 4. Hypokalemia. Continue to monitor. Continue dialysis on a high potassium bath. 5. Mineral bone disorder, monitor calcium and phosphorus levels. 6. Ventilator-dependent respiratory failure. Vent settings and ABG was reviewed. Continue to monit or. 7. Septic shock. The patient is currently on pressor support. Continue medical management. Contin ue antibiotics. We will follow up cultures. 8. Thrombocytopenia. Continue to monitor. Consider transfusion. 9. Hypothyroidism. Continue Synthroid. 10. Dysphagia. Continue tube feeding. 11. Arrhythmia. Continue amiodarone. 12. Lower extremity wounds. Continue wound care. 13. Status post cardiopulmonary arrest. Dictated By: SARIKA JOINER DO NR/NTS Conf#: [id number] DID#: [id number] CC: LORRAINE JOHNSON MD; MANDY BATES MD; RENÉE SKINNER;*EndCC*
[2018-12-30] MEDS: MEROPENEM 500MG/50 ML (PMX) 50 ML IVPB SCH ×2 (08:20→20:24)
[2018-12-30] MEDS: METHYLPREDNISOLONE 40 MG INJ IV SCH (08:21)
[2018-12-30] MEDS: AMIODARONE 200 MG TAB GTB SCH ×2 (08:23→20:25)
[2018-12-30] MEDS: MIDODRINE 5 MG TAB GTB SCH ×4 (08:23→17:56)
[2018-12-30] MEDS: FLUCONAZOLE 100 MG TAB PO SCH (08:23)
[2018-12-30] MEDS: COLLAGENASE 5 GM (UD JAR) TOP SCH (08:24)
[2018-12-30] MEDS: (Nursing Note) XX SCH ×4 (08:24→20:25)
[2018-12-30] MEDS: BALSAM PERU/CASTOR OIL 60 GM TUBE TOP SCH ×2 (08:24→20:25)
--- NOTE | 2018-12-30 08:27 | CONS ---
Assessment/Plan Assessment/Plan Hospital Course (Demo Recall) 58 yo with septic shock, multiorgan failure, end stage renal disease, ventilator dependency, severe cachexia, and severe thrombocytopenia with skin oozing, who had a few hours of rapid atrial fibrillation yesterday morning, now in sinus rhythm. Prognosis is grave. Recommendations: Continue loading amiodarone via g tube. Will sign off, call if questions arise. Consultation Date/Type/Reason Admit Date/Time Nov 21, 2018 at 04:53 Initial Consult Date 12/29/18 Type of Consult Cardiology Requesting Provider: RENÉE SKINNER Date/Time of Note DATE: 12/30/18 TIME: 08:26 24 HR Interval Summary Free Text/Dictation Spoke with nursing, telemetry reviewed. Patient has maintained NSR. Is on levophed as pressor. Subjective hx not possible: pt non-verbal Exam/Review of Systems Vital Signs Vitals Vital Signs Date Temp Pulse Resp B/P (MAP) Pulse Ox O2 O2 Flow FiO2 Time Delivery Rate 12/30/18 40 06:19 12/30/18 81 23 115/58 100 06:15 (77) 12/30/18 98.1 04:00 12/29/18 Mechanical 18:00 Ventilator Intake and Output 12/29/18 12/29/18 12/30/18 1515:00 23:00 07:00 IntakeIntake Total 746.250 ml 475.000 ml 293.750 ml OutputOutput Total 0 ml 0 ml BalanceBalance 746.250 ml 475.000 ml 293.750 ml Exam ENMT: intubated Labs Result Diagram: 12/30/18 0540 12/30/18 0540 Results 24hrs Laboratory Tests Test 12/30/18 04:51 12/30/18 05:40 Lab Scanned Report BLOOD TRANSFUSION White Blood Count 7.0 Red Blood Count 1.81 #L Hemoglobin 5.5 #*L Hematocrit 15.9 #L Mean Corpuscular Volume 87.8 Mean Corpuscular Hemoglobin 30.4 Mean Corpuscular Hemoglobin Concent 34.6 Red Cell Distribution Width 17.1 H Platelet Count 7 #*L Mean Platelet Volume Immature Granulocytes % 0.600 H Neutrophils % Lymphocytes % Monocytes % Eosinophils % Basophils % Nucleated Red Blood Cells % 0.0 Immature Granulocytes # 0.040 H Neutrophils # Lymphocytes # Monocytes # Eosinophils # Basophils # Nucleated Red Blood Cells # Sodium Level 140 Potassium Level 4.4 Chloride Level 108 Carbon Dioxide Level 24 Anion Gap 8 Blood Urea Nitrogen 86 H Creatinine 0.90 Est Glomerular Filtrat Rate mL/min > 60 Glucose Level 94 Calcium Level 8.2 L Phosphorus Level 2.5 Magnesium Level 1.8 Medications Medications Current Medications Glucose (Glutose) 15 gm Q15M PRN PO DECREASED GLUCOSE; Start 11/23/18 at 13:30 Glucose (Glutose) 22.5 gm Q15M PRN PO DECREASED GLUCOSE; Start 11/23/18 at 13:30 Dextrose (D50w Syringe) 25 ml Q15M PRN IV DECREASED GLUCOSE Last administered on 12/09/18 13:59; Admin Dose 25 ML; Start 11/23/18 at 13:30 Dextrose (D50w Syringe) 50 ml Q15M PRN IV DECREASED GLUCOSE Last administered on 12/10/18 13:14; Admin Dose 50 ML; Start 11/23/18 at 13:30 Glucagon (Glucagen) 1 mg Q15M PRN IM DECREASED GLUCOSE; Start 11/23/18 at 13:30 Glucose (Glutose) 15 gm Q15M PRN BUCCAL DECREASED GLUCOSE; Start 11/23/18 at 13:30 Alteplase, Recombinant (Cathflo (Activase)) 2 mg MAY REPEAT X1 PRN CATHETER IF CATHETER REMAINS OCCULUDED Last administered on 12/02/18 15:47; Admin Dose 2 MG; Start 11/26/18 at 03:00 Albumin Human 100 ml @ 100 mls/hr DURING DIALYSIS PRN IV HYPOTENSION DURING HD Last administered on 12/28/18 08:00; Admin Dose 100 MLS/HR; Start 11/26/18 at 14:00 Collagenase (Santyl) 1 applic DAILY TOP Last administered on 12/30/18 08:24; Admin Dose 1 APPLIC; Start 12/01/18 at 16:30 Acetaminophen (Tylenol Liquid) 650 mg Q6H PRN NGT PAIN LEVEL 1-3 OR FEVER Last administered on 12/28/18 06:03; Admin Dose 650 MG; Start 12/06/18 at 09:00 Midodrine (Proamatine) 5 mg TID@,13,17 GTB Last administered on 12/30/18 08:23; Admin Dose 5 MG; Start 12/07/18 at 09:00 Epoetin Margarito-epbx (RETACRIT(esrd)) 10,000 unit MoWeFr@1700 SC Last administered on 12/28/18 16:54; Admin Dose 10,000 UNIT; Start 12/11/18 at 17:00 Lorazepam (Ativan) 1 mg Q4H PRN IV AGITATION/ANXIETY Last administered on 12/19/18 05:41; Admin Dose 1 MG; Start 12/15/18 at 11:00 Morphine Sulfate (morphine) 1 mg Q4H PRN IV SEVERE PAIN LEVEL 7-10 Last administered on 12/19/18 03:37; Admin Dose 1 MG; Start 12/15/18 at 11:00 Metoclopramide HCl (Reglan) 5 mg Q8 IV Last administered on 12/30/18 06:05; Admin Dose 5 MG; Start 12/17/18 at 12:00 Miscellaneous Information 1 ea BID XX Last administered on 12/30/18 08:24; Admin Dose 1 EA; Start 12/21/18 at 15:00 Miscellaneous Information 1 ea BID XX Last administered on 12/30/18 08:24; Admin Dose 1 EA; Start 12/23/18 at 14:00 Fluconazole (Diflucan) 100 mg DAILY PO Last administered on 12/30/18 08:23; Admin Dose 100 MG; Start 12/25/18 at 13:30 Methylprednisolone Sodium Succinate (Solu-Medrol) 40 mg DAILY IV Last administered on 12/30/18 08:21; Admin Dose 40 MG; Start 12/28/18 at 09:00; Stop 01/01/19 at 17:59 Norepinephrine 250 ml @ 1.875 mls/ hr TITRATE IV Last administered on 12/29/18 09:00; Admin Dose 9.375 MLS/HR; Start 12/29/18 at 09:30 Diltiazem HCl 125 ml @ 5 mls/hr TITRATE IV ; Start 12/29/18 at 09:30 Meropenem/Sodium Chloride 50 ml @ 100 mls/hr Q12 IVPB Last administered on 12/30/18 08:20; Admin Dose 100 MLS/HR; Start 12/29/18 at 21:00 Clindamycin HCl/ Dextrose 50 ml @ 100 mls/hr Q8 IVPB Last administered on 12/30/18at 06:04; Admin Dose 100 MLS/HR; Start 12/29/18 at 15:00 Amiodarone HCl (Cordarone) 400 mg BID GTB Last administered on 12/30/18at 08:23; Admin Dose 400 MG; Start 12/29/18 at 21:00 Levothyroxine Sodium (Synthroid) 75 mcg BEFORE BREAKFAST GTB Last administered on 12/30/18at 06:05; Admin Dose 75 MCG; Start 12/30/18 at 07:00 Albuterol (Ventolin Hfa) 4 puff Q4H RESP THERAPY PRN INH WHEEZING; Start 12/30/18 at 08:00 SANDRA MEMBRENO December 30, 2018 08:27
--- NOTE | 2018-12-30 08:34 | CONS ---
Assessment/Plan Assessment/Plan Assessment/Plan (Daily) Ventilator setting; AC of 18, tidal volume 400, PEEP of 5, 40% FiO2. Patient is currently on Levophed 3 mics per minute. Assessment and recommendations; 1. patient admitted with severe bilateral pneumonia with persistent radiological findings mostly involving right lung. Currently on appropriate antimicrobial regimen. 2. Severely macerated state. 3. Severe anemia and severe thrombocytopenia with extensive ecchymosis. 4. Chronic renal failure, on hemodialysis. 5. Persistent shock. 6. Severe encephalopathy. 7. History of cardiac arrhythmia. Continue current supportive care. Prognosis is extremely poor. Hospice should be considered strongly. Consultation Date/Type/Reason Admit Date/Time Nov 21, 2018 at 04:53 Initial Consult Date Type of Consult Pulmonary Requesting Provider: RENÉE SKINNER Date/Time of Note DATE: 12/30/18 TIME: 08:31 24 HR Interval Summary Free Text/Dictation Patient's condition remains extremely critical. Remains hypotensive on Levophed. General exam; middle-aged female, appears totally macerated. Unresponsive. Currently in no distress. On ventilator via tracheostomy. Exam/Review of Systems Exam Vitals Vital Signs Date Temp Pulse Resp B/P (MAP) Pulse Ox O2 O2 Flow FiO2 Time Delivery Rate 12/30/18 40 06:19 12/30/18 81 23 115/58 100 06:15 (77) 12/30/18 98.1 04:00 12/29/18 Mechanical 18:00 Ventilator Intake and Output 12/29/18 12/29/18 12/30/18 1515:00 23:00 07:00 IntakeIntake Total 746.250 ml 475.000 ml 293.750 ml OutputOutput Total 0 ml 0 ml BalanceBalance 746.250 ml 475.000 ml 293.750 ml Exam HEENT exam; supple neck, positive JVD. No lymphadenopathy. Midline trachea. No thyromegaly. Patient has carious teeth. No neck masses. Chest exam; diminished breath sounds bilaterally. S1-S2 audible, no murmurs. Regular rhythm. Extensive ecchymosis are present and chest wall. Abdomen exam; soft, scaphoid. G-tube in place. Bowel sounds are sluggish. Extremity exam; trace edema with multiple ecchymosis. DIAL PAINTER exam; patient is essentially unresponsive. Results Result Diagram: 12/30/18 0540 12/30/18 0540 Results 24hrs Laboratory Tests Test 12/30/18 04:51 12/30/18 05:40 Lab Scanned Report BLOOD TRANSFUSION White Blood Count 7.0 Red Blood Count 1.81 #L Hemoglobin 5.5 #*L Hematocrit 15.9 #L Mean Corpuscular Volume 87.8 Mean Corpuscular Hemoglobin 30.4 Mean Corpuscular Hemoglobin Concent 34.6 Red Cell Distribution Width 17.1 H Platelet Count 7 #*L Mean Platelet Volume Immature Granulocytes % 0.600 H Neutrophils % Lymphocytes % Monocytes % Eosinophils % Basophils % Nucleated Red Blood Cells % 0.0 Immature Granulocytes # 0.040 H Neutrophils # Lymphocytes # Monocytes # Eosinophils # Basophils # Nucleated Red Blood Cells # Sodium Level 140 Potassium Level 4.4 Chloride Level 108 Carbon Dioxide Level 24 Anion Gap 8 Blood Urea Nitrogen 86 H Creatinine 0.90 Est Glomerular Filtrat Rate mL/min > 60 Glucose Level 94 Calcium Level 8.2 L Phosphorus Level 2.5 Magnesium Level 1.8 Medications Medication Current Medications Glucose (Glutose) 15 gm Q15M PRN PO DECREASED GLUCOSE; Start 11/23/18 at 13:30 Glucose (Glutose) 22.5 gm Q15M PRN PO DECREASED GLUCOSE; Start 11/23/18 at 13:30 Dextrose (D50w Syringe) 25 ml Q15M PRN IV DECREASED GLUCOSE Last administered on 12/09/18at 13:59; Admin Dose 25 ML; Start 11/23/18 at 13:30 Dextrose (D50w Syringe) 50 ml Q15M PRN IV DECREASED GLUCOSE Last administered on 12/10/18at 13:14; Admin Dose 50 ML; Start 11/23/18 at 13:30 Glucagon (Glucagen) 1 mg Q15M PRN IM DECREASED GLUCOSE; Start 11/23/18 at 13:30 Glucose (Glutose) 15 gm Q15M PRN BUCCAL DECREASED GLUCOSE; Start 11/23/18 at 13:30 Alteplase, Recombinant (Cathflo (Activase)) 2 mg MAY REPEAT X1 PRN CATHETER IF CATHETER REMAINS OCCULUDED Last administered on 12/02/18at 15:47; Admin Dose 2 MG; Start 11/26/18 at 03:00 Albumin Human 100 ml @ 100 mls/hr DURING DIALYSIS PRN IV HYPOTENSION DURING HD Last administered on 12/28/18at 08:00; Admin Dose 100 MLS/HR; Start 11/26/18 at 14:00 Collagenase (Santyl) 1 applic DAILY TOP Last administered on 12/30/18 08:24; Admin Dose 1 APPLIC; Start 12/01/18 at 16:30 Acetaminophen (Tylenol Liquid) 650 mg Q6H PRN NGT PAIN LEVEL 1-3 OR FEVER Last administered on 12/28/18 06:03; Admin Dose 650 MG; Start 12/06/18 at 09:00 Midodrine (Proamatine) 5 mg TID@09,13,17 GTB Last administered on 12/30/18 08:23; Admin Dose 5 MG; Start 12/07/18 at 09:00 Epoetin Margarito-epbx (RETACRIT(esrd)) 10,000 unit MoWeFr@1700 SC Last administered on 12/28/18 16:54; Admin Dose 10,000 UNIT; Start 12/11/18 at 17:00 Lorazepam (Ativan) 1 mg Q4H PRN IV AGITATION/ANXIETY Last administered on 12/19/18 05:41; Admin Dose 1 MG; Start 12/15/18 at 11:00 Morphine Sulfate (morphine) 1 mg Q4H PRN IV SEVERE PAIN LEVEL 7-10 Last administered on 12/19/18 03:37; Admin Dose 1 MG; Start 12/15/18 at 11:00 Metoclopramide HCl (Reglan) 5 mg Q8 IV Last administered on 12/30/18 06:05; Admin Dose 5 MG; Start 12/17/18 at 12:00 Miscellaneous Information 1 ea BID XX Last administered on 12/30/18 08:24; Admin Dose 1 EA; Start 12/21/18 at 15:00 Miscellaneous Information 1 ea BID XX Last administered on 12/30/18 08:24; Admin Dose 1 EA; Start 12/23/18 at 14:00 Fluconazole (Diflucan) 100 mg DAILY PO Last administered on 12/30/18 08:23; Admin Dose 100 MG; Start 12/25/18 at 13:30 Methylprednisolone Sodium Succinate (Solu-Medrol) 40 mg DAILY IV Last administered on 12/30/18 08:21; Admin Dose 40 MG; Start 12/28/18 at 09:00; Stop 01/01/19 at 17:59 Norepinephrine 250 ml @ 1.875 mls/ hr TITRATE IV Last administered on 12/10 09:00; Admin Dose 9.375 MLS/HR; Start 12/29/18 at 09:30 Diltiazem HCl 125 ml @ 5 mls/hr TITRATE IV ; Start 12/29/18 at 09:30 Meropenem/Sodium Chloride 50 ml @ 100 mls/hr Q12 IVPB Last administered on 12/30/18 08:20; Admin Dose 100 MLS/HR; Start 12/29/18 at 21:00 Clindamycin HCl/ Dextrose 50 ml @ 100 mls/hr Q8 IVPB Last administered on 12/30/18 06:04; Admin Dose 100 MLS/HR; Start 12/29/18 at 15:00 Amiodarone HCl (Cordarone) 400 mg BID GTB Last administered on 12/30/18at 08:23; Admin Dose 400 MG; Start 12/29/18 at 21:00 Levothyroxine Sodium (Synthroid) 75 mcg BEFORE BREAKFAST GTB Last administered on 12/30/18at 06:05; Admin Dose 75 MCG; Start 12/30/18 at 07:00 Albuterol (Ventolin Hfa) 4 puff Q4H RESP THERAPY PRN INH WHEEZING; Start 12/30/18 at 08:00 MARIAN KUMAR December 30, 2018 08:34
--- NOTE | 2018-12-30 09:36 | PN ---
Date/Time of Note Date/Time of Note DATE: 12/30/18 TIME: 09:32 Assessment/Plan VTE Prophylaxis Risk score (from Ns)>0 risk: 8 SCD applied (from Ns): Yes Pharmacological prophylaxis: NA/contraindicated Pharm contraindication: bleeding, thrombocytopenia Lines/Catheters IV [facility]from [facility] Mid Line Urinary Cath still in place: No Assessment/Plan Hospital Course S: Patient now chemical code only, still on pressor support. Awaiting dialysis related today along with more PRBC and platelet transfusions (despite being given yesterday). O: VS- see below PE: On MV via trach, minimally interactive Chronically ill appearing, cachectic Lungs clear Still Distended belly, firm masses, G tube in place Mild peripheral edema present LUE wound wrapped A/P: 58 yo female with ESRD, questionable cirrhosis, DMII presents with hypoglycemia, leg infection. Suffered cardiac and respiratory arrest, recovered with good neurologic status however was unable to be weaned from mechanical ventilation and is now s/p trach and PEG. Chronic respiratory failure: Treated for pneumonia earlier this admission as well as respiratory failure, status post trach placement earlier this admission as well. -Continue MV per pulm via trach, follow pulmonary recommendations, current antifungal and antibacterial medications -Continue to wean steroids off over the next few days Left lower extremity wound: Per ID team there is also concern of a possible infected graft. Blood cultures from last month as well as wound culture from last month positive for Klebsiella, patient presently on ertapenem as well as fluconazole. -Continue antibiotics indefinitely per ID ESRD -For now continue HD per nephrology Hypothyroidism: - Continue Synthroid Anemia of CKD: Also thrombocytopenia, secondary to HIT. Patient PRBC transfusion yesterday as well as platelet transfusion yesterday, however per nursing staff apparently she had some bleeding episodes after the line was placed last night and has even more anemia this morning along with worsening thrombocytopenia. -Monitor CBC for now, ordered for 2 more units of PRBC and platelets this morning. -We will also check DIC panel. Prophylaxis: SCDs Dispo: Again still in intensive care unit the last 2 days. As mentioned above bioethics meeting held yesterday, family was present during the meeting as well. At this point patient is still on pressor support. Family agreed to chemical code only. Family is aware patient has very poor prognosis at this point in time. Critical care time spent on patient care today equals 45 minutes. Result Diagram: 12/30/18 0540 12/30/18 0540 Results 24hrs Laboratory Tests Test 12/30/18 04:51 12/30/18 05:40 Lab Scanned Report BLOOD TRANSFUSION White Blood Count 7.0 Red Blood Count 1.81 #L Hemoglobin 5.5 #*L Hematocrit 15.9 #L Mean Corpuscular Volume 87.8 Mean Corpuscular Hemoglobin 30.4 Mean Corpuscular Hemoglobin Concent 34.6 Red Cell Distribution Width 17.1 H Platelet Count 7 #*L Mean Platelet Volume Immature Granulocytes % 0.600 H Neutrophils % Lymphocytes % Monocytes % Eosinophils % Basophils % Nucleated Red Blood Cells % 0.0 Immature Granulocytes # 0.040 H Neutrophils # Lymphocytes # Monocytes # Eosinophils # Basophils # Nucleated Red Blood Cells # Sodium Level 140 Potassium Level 4.4 Chloride Level 108 Carbon Dioxide Level 24 Anion Gap 8 Blood Urea Nitrogen 86 H Creatinine 0.90 Est Glomerular Filtrat Rate mL/min > 60 Glucose Level 94 Calcium Level 8.2 L Phosphorus Level 2.5 Magnesium Level 1.8 Exam/Review of Systems Exam Vitals Vital Signs Date Temp Pulse Resp B/P (MAP) Pulse Ox O2 O2 Flow FiO2 Time Delivery Rate 12/30/18 80 23 101/59 100 08:45 (73) 12/30/18 97.6 Mechanical 08:00 Ventilator 12/30/18 40 08:00 Intake and Output 12/29/18 12/29/18 12/30/18 1515:00 23:00 07:00 IntakeIntake Total 746.250 ml 475.000 ml 293.750 ml OutputOutput Total 0 ml 0 ml BalanceBalance 746.250 ml 475.000 ml 293.750 ml Results Results 24hrs Laboratory Tests Test 12/30/18 04:51 12/30/18 05:40 Lab Scanned Report BLOOD TRANSFUSION White Blood Count 7.0 Red Blood Count 1.81 #L Hemoglobin 5.5 #*L Hematocrit 15.9 #L Mean Corpuscular Volume 87.8 Mean Corpuscular Hemoglobin 30.4 Mean Corpuscular Hemoglobin Concent 34.6 Red Cell Distribution Width 17.1 H Platelet Count 7 #*L Mean Platelet Volume Immature Granulocytes % 0.600 H Neutrophils % Lymphocytes % Monocytes % Eosinophils % Basophils % Nucleated Red Blood Cells % 0.0 Immature Granulocytes # 0.040 H Neutrophils # Lymphocytes # Monocytes # Eosinophils # Basophils # Nucleated Red Blood Cells # Sodium Level 140 Potassium Level 4.4 Chloride Level 108 Carbon Dioxide Level 24 Anion Gap 8 Blood Urea Nitrogen 86 H Creatinine 0.90 Est Glomerular Filtrat Rate mL/min > 60 Glucose Level 94 Calcium Level 8.2 L Phosphorus Level 2.5 Magnesium Level 1.8 Medications Medication Current Medications Glucose (Glutose) 15 gm Q15M PRN PO DECREASED GLUCOSE; Start 11/23/18 at 13:30 Glucose (Glutose) 22.5 gm Q15M PRN PO DECREASED GLUCOSE; Start 11/23/18 at 13:30 Dextrose (D50w Syringe) 25 ml Q15M PRN IV DECREASED GLUCOSE Last administered on 12/09/18 13:59; Admin Dose 25 ML; Start 11/23/18 at 13:30 Dextrose (D50w Syringe) 50 ml Q15M PRN IV DECREASED GLUCOSE Last administered on 12/10/18 13:14; Admin Dose 50 ML; Start 11/23/18 at 13:30 Glucagon (Glucagen) 1 mg Q15M PRN IM DECREASED GLUCOSE; Start 11/23/18 at 13:30 Glucose (Glutose) 15 gm Q15M PRN BUCCAL DECREASED GLUCOSE; Start 11/23/18 at 13:30 Alteplase, Recombinant (Cathflo (Activase)) 2 mg MAY REPEAT X1 PRN CATHETER IF CATHETER REMAINS OCCULUDED Last administered on 12/02/18 15:47; Admin Dose 2 MG; Start 11/26/18 at 03:00 Albumin Human 100 ml @ 100 mls/hr DURING DIALYSIS PRN IV HYPOTENSION DURING HD Last administered on 12/28/18 08:00; Admin Dose 100 MLS/HR; Start 11/26/18 at 14:00 Collagenase (Santyl) 1 applic DAILY TOP Last administered on 12/30/18 08:24; Admin Dose 1 APPLIC; Start 12/01/18 at 16:30 Acetaminophen (Tylenol Liquid) 650 mg Q6H PRN NGT PAIN LEVEL 1-3 OR FEVER Last administered on 12/28/18 06:03; Admin Dose 650 MG; Start 12/06/18 at 09:00 Midodrine (Proamatine) 5 mg TID@,13,17 GTB Last administered on 12/30/18 08:23; Admin Dose 5 MG; Start 12/07/18 at 09:00 Epoetin Margarito-epbx (RETACRIT(esrd)) 10,000 unit MoWeFr@1700 SC Last administered on 12/28/18 16:54; Admin Dose 10,000 UNIT; Start 12/11/18 at 17:00 Lorazepam (Ativan) 1 mg Q4H PRN IV AGITATION/ANXIETY Last administered on 12/19/18 05:41; Admin Dose 1 MG; Start 12/15/18 at 11:00 Morphine Sulfate (morphine) 1 mg Q4H PRN IV SEVERE PAIN LEVEL 7-10 Last administered on 12/19/18 03:37; Admin Dose 1 MG; Start 12/15/18 at 11:00 Metoclopramide HCl (Reglan) 5 mg Q8 IV Last administered on 12/30/18 06:05; Admin Dose 5 MG; Start 12/17/18 at 12:00 Miscellaneous Information 1 ea BID XX Last administered on 12/30/18 08:24; Admin Dose 1 EA; Start 12/21/18 at 15:00 Miscellaneous Information 1 ea BID XX Last administered on 12/30/18 08:24; Admin Dose 1 EA; Start 12/23/18 at 14:00 Fluconazole (Diflucan) 100 mg DAILY PO Last administered on 12/30/18 08:23; Admin Dose 100 MG; Start 12/25/18 at 13:30 Methylprednisolone Sodium Succinate (Solu-Medrol) 40 mg DAILY IV Last administered on 12/30/18 08:21; Admin Dose 40 MG; Start 12/28/18 at 09:00; Stop 01/01/19 at 17:59 Norepinephrine 250 ml @ 1.875 mls/ hr TITRATE IV Last administered on 12/29/18 09:00; Admin Dose 9.375 MLS/HR; Start 12/29/18 at 09:30 Diltiazem HCl 125 ml @ 5 mls/hr TITRATE IV ; Start 12/29/18 at 09:30 Meropenem/Sodium Chloride 50 ml @ 100 mls/hr Q12 IVPB Last administered on 12/30/18 08:20; Admin Dose 100 MLS/HR; Start 12/29/18 at 21:00 Clindamycin HCl/ Dextrose 50 ml @ 100 mls/hr Q8 IVPB Last administered on 12/30/18at 06:04; Admin Dose 100 MLS/HR; Start 12/29/18 at 15:00 Amiodarone HCl (Cordarone) 400 mg BID GTB Last administered on 12/30/18at 08:23; Admin Dose 400 MG; Start 12/29/18 at 21:00 Levothyroxine Sodium (Synthroid) 75 mcg BEFORE BREAKFAST GTB Last administered on 12/30/18at 06:05; Admin Dose 75 MCG; Start 12/30/18 at 07:00 Albuterol (Ventolin Hfa) 4 puff Q4H RESP THERAPY PRN INH WHEEZING; Start 12/30/18 at 08:00 RENÉE SKINNER December 30, 2018 09:36
--- NOTE | 2018-12-30 10:28 | CONS ---
Assessment/Plan Assessment/Plan Assessment/Plan (Daily) Patient remains critically ill in intensive care unit. Bioethics consultation was done yesterday urgently patient's daughter and attended and spoke on behalf of the entire family. They have decided to change patient's CODE STATUS to chemical code only after long and productive conversation compassionately presented by Dr. Salcedo. Patient's was very satisfied with the fact that patient will continue to see if care as they had promised her. Patient's sons were out of town and on their way in to visit her mother. Prognosis extremely poor. Consultation Date/Type/Reason Admit Date/Time Nov 21, 2018 at 04:53 Initial Consult Date Requesting Provider: RENÉE SKINNER Date/Time of Note DATE: 12/30/18 TIME: 10:25 24 HR Interval Summary Free Text/Dictation Patient is transferred back into the intensive care unit bilateral pneumonia 100% FiO2 nonresponsive is at the bedside. I have had an extensive conversation with patient's son on the phone. Explained the situation in detail to him that the chance of her recovering are little to none and if we do cardiopulmonary resuscitation we would break her ribs and with a platelet count of 16,000 she would hemorrhage extensively. I did tell him that primary caregivers do not want to cause her to suffer at the end of her life by doing cardiopulmonary resuscitation and DC cardioversion. He did not disagree he just said he was speak to his other family members but insisted that his mother would want to be kept alive. At this time I suggest emergency bioethics consultation to change patient's CODE STATUS to DO NOT RESUSCITATE. I have informed the son that I have asked for bioethics consultation. Exam/Review of Systems Exam Vitals Vital Signs Date Temp Pulse Resp B/P (MAP) Pulse Ox O2 O2 Flow FiO2 Time Delivery Rate 12/30/18 80 23 101/59 100 08:45 (73) 12/30/18 97.6 Mechanical 08:00 Ventilator 12/30/18 40 08:00 Intake and Output 12/29/18 12/29/18 12/30/18 1515:00 23:00 07:00 IntakeIntake Total 746.250 ml 475.000 ml 293.750 ml OutputOutput Total 0 ml 0 ml BalanceBalance 746.250 ml 475.000 ml 293.750 ml Results Result Diagram: 12/30/18 0931 12/30/18 0540 Results 24hrs Laboratory Tests Test 12/30/18 04:51 12/30/18 05:40 12/30/18 09:31 Lab Scanned Report BLOOD TRANSFUSION White Blood Count 7.0 Red Blood Count 1.81 #L Hemoglobin 5.5 #*L Hematocrit 15.9 #L Mean Corpuscular Volume 87.8 Mean Corpuscular Hemoglobin 30.4 Mean Corpuscular 34.6 Hemoglobin Concent Red Cell Distribution Width 17.1 H Platelet Count 7 #*L 7 #*L Mean Platelet Volume Immature Granulocytes % 0.600 H Neutrophils % Lymphocytes % Monocytes % Eosinophils % Basophils % Nucleated Red Blood Cells % 0.0 Immature Granulocytes # 0.040 H Neutrophils # Lymphocytes # Monocytes # Eosinophils # Basophils # Nucleated Red Blood Cells # Sodium Level 140 Potassium Level 4.4 Chloride Level 108 Carbon Dioxide Level 24 Anion Gap 8 Blood Urea Nitrogen 86 H Creatinine 0.90 Est Glomerular Filtrat > 60 Rate mL/min Glucose Level 94 Calcium Level 8.2 L Phosphorus Level 2.5 Magnesium Level 1.8 Prothrombin Time 26.3 #H Prothrombin Time Ratio 2.1 INR International 2.41 Normalized Ratio Activated Partial Thromboplast 41.7 H Time Thrombin Time 14.4 Fibrinogen 351.0 D-Dimer 3878.25 H D-Dimer Comment Medications Medication Current Medications Glucose (Glutose) 15 gm Q15M PRN PO DECREASED GLUCOSE; Start 11/23/18 at 13:30 Glucose (Glutose) 22.5 gm Q15M PRN PO DECREASED GLUCOSE; Start 11/23/18 at 13:30 Dextrose (D50w Syringe) 25 ml Q15M PRN IV DECREASED GLUCOSE Last administered on 12/09/18at 13:59; Admin Dose 25 ML; Start 11/23/18 at 13:30 Dextrose (D50w Syringe) 50 ml Q15M PRN IV DECREASED GLUCOSE Last administered on 12/10/18at 13:14; Admin Dose 50 ML; Start 11/23/18 at 13:30 Glucagon (Glucagen) 1 mg Q15M PRN IM DECREASED GLUCOSE; Start 11/23/18 at 13:30 Glucose (Glutose) 15 gm Q15M PRN BUCCAL DECREASED GLUCOSE; Start 11/23/18 at 13:30 Alteplase, Recombinant (Cathflo (Activase)) 2 mg MAY REPEAT X1 PRN CATHETER IF CATHETER REMAINS OCCULUDED Last administered on 12/02/18 15:47; Admin Dose 2 MG; Start 11/26/18 at 03:00 Albumin Human 100 ml @ 100 mls/hr DURING DIALYSIS PRN IV HYPOTENSION DURING HD Last administered on 12/28/18 08:00; Admin Dose 100 MLS/HR; Start 11/26/18 at 14:00 Collagenase (Santyl) 1 applic DAILY TOP Last administered on 12/30/18 08:24; Admin Dose 1 APPLIC; Start 12/01/18 at 16:30 Acetaminophen (Tylenol Liquid) 650 mg Q6H PRN NGT PAIN LEVEL 1-3 OR FEVER Last administered on 12/28/18 06:03; Admin Dose 650 MG; Start 12/06/18 at 09:00 Midodrine (Proamatine) 5 mg TID@09,13,17 GTB Last administered on 12/30/18 08:23; Admin Dose 5 MG; Start 12/07/18 at 09:00 Epoetin Margarito-epbx (RETACRIT(esrd)) 10,000 unit MoWeFr@1700 SC Last administered on 12/28/18 16:54; Admin Dose 10,000 UNIT; Start 12/11/18 at 17:00 Lorazepam (Ativan) 1 mg Q4H PRN IV AGITATION/ANXIETY Last administered on 12/19/18 05:41; Admin Dose 1 MG; Start 12/15/18 at 11:00 Morphine Sulfate (morphine) 1 mg Q4H PRN IV SEVERE PAIN LEVEL 7-10 Last administered on 12/19/18 03:37; Admin Dose 1 MG; Start 12/15/18 at 11:00 Metoclopramide HCl (Reglan) 5 mg Q8 IV Last administered on 12/30/18 06:05; Admin Dose 5 MG; Start 12/17/18 at 12:00 Miscellaneous Information 1 ea BID XX Last administered on 12/30/18 08:24; Admin Dose 1 EA; Start 12/21/18 at 15:00 Miscellaneous Information 1 ea BID XX Last administered on 12/30/18 08:24; Admin Dose 1 EA; Start 12/23/18 at 14:00 Fluconazole (Diflucan) 100 mg DAILY PO Last administered on 12/30/18 08:23; Admin Dose 100 MG; Start 12/25/18 at 13:30 Methylprednisolone Sodium Succinate (Solu-Medrol) 40 mg DAILY IV Last administered on 12/30/18 08:21; Admin Dose 40 MG; Start 12/28/18 at 09:00; Stop 01/01/19 at 17:59 Norepinephrine 250 ml @ 1.875 mls/ hr TITRATE IV Last administered on 12/29/18at 09:00; Admin Dose 9.375 MLS/HR; Start 12/29/18 at 09:30 Diltiazem HCl 125 ml @ 5 mls/hr TITRATE IV ; Start 12/29/18 at 09:30 Meropenem/Sodium Chloride 50 ml @ 100 mls/hr Q12 IVPB Last administered on 12/30/18at 08:20; Admin Dose 100 MLS/HR; Start 12/29/18 at 21:00 Clindamycin HCl/ Dextrose 50 ml @ 100 mls/hr Q8 IVPB Last administered on 12/30/18 06:04; Admin Dose 100 MLS/HR; Start 12/29/18 at 15:00 Amiodarone HCl (Cordarone) 400 mg BID GTB Last administered on 12/30/18 08:23; Admin Dose 400 MG; Start 12/29/18 at 21:00 Levothyroxine Sodium (Synthroid) 75 mcg BEFORE BREAKFAST GTB Last administered on 12/30/18 06:05; Admin Dose 75 MCG; Start 12/30/18 at 07:00 Albuterol (Ventolin Hfa) 4 puff Q4H RESP THERAPY PRN INH WHEEZING; Start 12/30/18 at 08:00 JULIEN SALINAS December 30, 2018 10:28
--- NOTE | 2018-12-30 12:13 | CONS ---
Assessment/Plan Assessment/Plan Hospital Course (Demo Recall) No acute changes overnight Antimicrobials: Diflucan, clindamycin, meropenem Microbiology: Blood culture on admission grew Klebsiella ESBL, repeat blood cultures negative, left thigh wound culture grew Klebsiella ESBL and Leah albicans Allergy: Zosyn, vancomycin Indwelling: Right upper thigh Davie catheter, left femoral triple-lumen catheter, trach Physical examination: This is a chronically ill-appearing cachectic middle-aged woman who is laying comfortably in bed. Head atraumatic normocephalic. Neck is supple. Chest rise symmetrical. Breath sounds diminished bases. Heart: S1-S2, irreg. Abdomen distended. Bowel sounds hypoactive. Extremities with bilateral edema, cyanotic, multiple ecchymotic areas and bruises, left upper thigh dressing present Assessment: 1. Septic shock 2. Healthcare associated pneumonia 3. Respiratory failure, acute on chronic, status post tracheostomy on this admission 4. Peripheral arterial disease status post left lower extremity bypass graft that became infected with wound culture grew Klebsiella ESBL 5. End-stage renal disease, hemodialysis dependent 6. Dysphagia 7. Coronary artery disease status post atrial fibrillation, status post permanent pacemaker 8. Failure to thrive with severe cachexia 9 . Unstageable sacral decubitus 10. History of peritoneal dialysis with peritoneal dialysis still in place 11. Thrombocytopenia 12. S/p B mastoiditis and acute sinusitis Plan: Continue present care, change fluconazole to Cancidas given the fact that patient was restarted on amiodarone, prognosis very poor Consultation Date/Type/Reason Admit Date/Time Nov 21, 2018 at 04:53 Initial Consult Date Type of Consult id Requesting Provider: RENÉE SKINNER Date/Time of Note DATE: 12/30/18 TIME: 12:11 Exam/Review of Systems Exam Vitals Vital Signs Date Temp Pulse Resp B/P (MAP) Pulse Ox O2 O2 Flow FiO2 Time Delivery Rate 12/30/18 73 20 105/52 100 10:45 (69) 12/30/18 Mechanical 10:00 Ventilator 12/30/18 97.6 08:00 12/30/18 40 08:00 Intake and Output 12/29/18 12/29/18 12/30/18 1515:00 23:00 07:00 IntakeIntake Total 746.250 ml 475.000 ml 384.350 ml OutputOutput Total 0 ml 0 ml BalanceBalance 746.250 ml 475.000 ml 384.350 ml Results Result Diagram: 12/30/18 0931 12/30/18 0540 Results 24hrs Laboratory Tests Test 12/30/18 04:51 12/30/18 05:40 12/30/18 09:31 Lab Scanned Report BLOOD TRANSFUSION White Blood Count 7.0 Red Blood Count 1.81 #L Hemoglobin 5.5 #*L Hematocrit 15.9 #L Mean Corpuscular Volume 87.8 Mean Corpuscular Hemoglobin 30.4 Mean Corpuscular 34.6 Hemoglobin Concent Red Cell Distribution Width 17.1 H Platelet Count 7 #*L 7 #*L Mean Platelet Volume Immature Granulocytes % 0.600 H Neutrophils % Segmented Neutrophils 56 % (Manual) Band Neutrophils % (Manual) 35 H Lymphocytes % Lymphocytes % (Manual) 5 L Monocytes % Monocytes % (Manual) 1 Eosinophils % Eosinophils % (Manual) 1 Basophils % Metamyelocytes % (manual) 2 H Nucleated Red Blood Cells % 0.0 Immature Granulocytes # 0.040 H Neutrophils # Neutrophils # (Manual) 4.1 Band Neutrophils # 2.4 H Lymphocytes (Manual) 0.3 L Lymphocytes # Monocytes # Monocytes # (Manual) 0.0 L Eosinophils # Basophils # Metamyelocytes # 0.1 H Nucleated Red Blood Cells # Platelet Estimate DECREASED Polychromasia 1+ Hypochromasia 2+ Anisocytosis 1+ Microcytosis 1+ Sodium Level 140 Potassium Level 4.4 Chloride Level 108 Carbon Dioxide Level 24 Anion Gap 8 Blood Urea Nitrogen 86 H Creatinine 0.90 Est Glomerular Filtrat > 60 Rate mL/min Glucose Level 94 Calcium Level 8.2 L Phosphorus Level 2.5 Magnesium Level 1.8 Prothrombin Time 26.3 #H Prothrombin Time Ratio 2.1 INR International 2.41 Normalized Ratio Activated Partial Thromboplast 41.7 H Time Thrombin Time 14.4 Fibrinogen 351.0 D-Dimer 3878.25 H D-Dimer Comment Medications Medication Current Medications Glucose (Glutose) 15 gm Q15M PRN PO DECREASED GLUCOSE; Start 11/23/18 at 13:30 Glucose (Glutose) 22.5 gm Q15M PRN PO DECREASED GLUCOSE; Start 11/23/18 at 13:30 Dextrose (D50w Syringe) 25 ml Q15M PRN IV DECREASED GLUCOSE Last administered on 12/09/18at 13:59; Admin Dose 25 ML; Start 11/23/18 at 13:30 Dextrose (D50w Syringe) 50 ml Q15M PRN IV DECREASED GLUCOSE Last administered on 12/10/18 13:14; Admin Dose 50 ML; Start 11/23/18 at 13:30 Glucagon (Glucagen) 1 mg Q15M PRN IM DECREASED GLUCOSE; Start 11/23/18 at 13:30 Glucose (Glutose) 15 gm Q15M PRN BUCCAL DECREASED GLUCOSE; Start 11/23/18 at 13:30 Alteplase, Recombinant (Cathflo (Activase)) 2 mg MAY REPEAT X1 PRN CATHETER IF CATHETER REMAINS OCCULUDED Last administered on 12/02/18 15:47; Admin Dose 2 MG; Start 11/26/18 at 03:00 Albumin Human 100 ml @ 100 mls/hr DURING DIALYSIS PRN IV HYPOTENSION DURING HD Last administered on 12/28/18 08:00; Admin Dose 100 MLS/HR; Start 11/26/18 at 14:00 Collagenase (Santyl) 1 applic DAILY TOP Last administered on 12/30/18 08:24; Admin Dose 1 APPLIC; Start 12/01/18 at 16:30 Acetaminophen (Tylenol Liquid) 650 mg Q6H PRN NGT PAIN LEVEL 1-3 OR FEVER Last administered on 12/28/18 06:03; Admin Dose 650 MG; Start 12/06/18 at 09:00 Midodrine (Proamatine) 5 mg TID@09,13,17 GTB Last administered on 12/30/18 08:23; Admin Dose 5 MG; Start 12/07/18 at 09:00 Epoetin Margairto-epbx (RETACRIT(esrd)) 10,000 unit MoWeFr@1700 SC Last administered on 12/28/18 16:54; Admin Dose 10,000 UNIT; Start 12/11/18 at 17:00 Lorazepam (Ativan) 1 mg Q4H PRN IV AGITATION/ANXIETY Last administered on 12/19/18 05:41; Admin Dose 1 MG; Start 12/15/18 at 11:00 Morphine Sulfate (morphine) 1 mg Q4H PRN IV SEVERE PAIN LEVEL 7-10 Last administered on 12/19/18 03:37; Admin Dose 1 MG; Start 12/15/18 at 11:00 Metoclopramide HCl (Reglan) 5 mg Q8 IV Last administered on 12/30/18 06:05; Admin Dose 5 MG; Start 12/17/18 at 12:00 Miscellaneous Information 1 ea BID XX Last administered on 12/30/18 08:24; Admin Dose 1 EA; Start 12/21/18 at 15:00 Miscellaneous Information 1 ea BID XX Last administered on 12/30/18 08:24; Admin Dose 1 EA; Start 12/23/18 at 14:00 Fluconazole (Diflucan) 100 mg DAILY PO Last administered on 12/30/18 08:23; Admin Dose 100 MG; Start 12/25/18 at 13:30 Methylprednisolone Sodium Succinate (Solu-Medrol) 40 mg DAILY IV Last adminis tered on 12/30/18 08:21; Admin Dose 40 MG; Start 12/28/18 at 09:00; Stop 01/01/19 at 17:59 Norepinephrine 250 ml @ 1.875 mls/ hr TITRATE IV Last administered on 12/29/18 09:00; Admin Dose 9.375 MLS/HR; Start 12/29/18 at 09:30 Diltiazem HCl 125 ml @ 5 mls/hr TITRATE IV ; Start 12/29/18 at 09:30 Meropenem/Sodium Chloride 50 ml @ 100 mls/hr Q12 IVPB Last administered on 12/30/18 08:20; Admin Dose 100 MLS/HR; Start 12/29/18 at 21:00 Clindamycin HCl/ Dextrose 50 ml @ 100 mls/hr Q8 IVPB Last administered on 12/30/18 06:04; Admin Dose 100 MLS/HR; Start 12/29/18 at 15:00 Amiodarone HCl (Cordarone) 400 mg BID GTB Last administered on 12/30/18 08:23; Admin Dose 400 MG; Start 12/29/18 at 21:00 Levothyroxine Sodium (Synthroid) 75 mcg BEFORE BREAKFAST GTB Last administered on 12/30/18 06:05; Admin Dose 75 MCG; Start 12/30/18 at 07:00 Albuterol (Ventolin Hfa) 4 puff Q4H RESP THERAPY PRN INH WHEEZING; Start 12/30/18 at 08:00 KELSIE ELY NP December 30, 2018 12:13
--- NOTE | 2018-12-30 12:24 | PN ---
Date/Time of Note Date/Time of Note DATE: 12/30/18 TIME: 12:23 Assessment/Plan Lines/Catheters IV Catheter Type (from Nrsg): Mid Line Moon in Place (from Nrsg): No Assessment/Plan Assessment/Plan Respiratory failure Status post tracheostomy\ Trach site clean Continue trach care Vent support Subjective 24 Hr Interval Summary Constitutional: no complaints, improved, ambulates, BM, flatus, urine output Pain Control: well controlled Exam/Review of Systems Vital Signs Vitals Vital Signs Date Temp Pulse Resp B/P (MAP) Pulse Ox O2 O2 Flow FiO2 Time Delivery Rate 12/30/18 73 20 105/52 100 10:45 (69) 12/30/18 Mechanical 10:00 Ventilator 12/30/18 97.6 08:00 12/30/18 40 08:00 Intake and Output 12/29/18 12/29/18 12/30/18 1515:00 23:00 07:00 IntakeIntake Total 746.250 ml 475.000 ml 384.350 ml OutputOutput Total 0 ml 0 ml BalanceBalance 746.250 ml 475.000 ml 384.350 ml Exam Eyes: nl conjunctiva, EOMI, nl lids, nl sclera ENMT: nl external ears & nose, nl lips & teeth, nl nasal mucosa & septum, mucosa pink and moist Neck: supple, non-tender Respiratory: clear to auscultation, normal air movement Cardiovascular: regular rate and rhythm, nl pulses Gastrointestinal: soft, nl liver, spleen, non-tender Musculoskeletal: nl extremities to inspection, nl gait and stance Results Result Diagram: 12/30/18 0931 12/30/18 0540 TAE PAN MD December 30, 2018 12:24
[2018-12-30] MEDS ORDERED: CASPOFUNGIN 70 MG in SOD CHLORIDE 0.9% 250 ML IVPB ONE (13:00)
[2018-12-30] MEDS: NORepinephrine 8MG/250 ML (PMX 250 ML IV SCH (14:42)
[2018-12-30] MEDS ORDERED: PHENYLephrine 20MG IN 250 ML 250 ML IV SCH (17:00)
[2018-12-30] MEDS: EPOETIN ALFA-EPBX (ESRD) 10,000 UNIT/ML VIAL SC SCH (17:57)
[2018-12-31] VITALS (54 sets, daily range): BP systolic 75–154; BP diastolic 46–73; PULSE 58–85; RESP 19–36
[2018-12-31] MEDS: METOCLOPRAMIDE 10 MG INJ IV SCH ×3 (05:33→21:15)
[2018-12-31] MEDS: CLINDAMYCIN 600 MG/D5W (PMX) 50 ML IVPB SCH ×3 (05:33→21:14)
--- NOTE | 2018-12-31 08:22 | PN ---
DATE: 12/31/2018 SUBJECTIVE: The patient had hemodialysis yesterday with approximately 1.5 liters removed. No other acute events noted. No hemoptysis, hematemesis, or hematochezia. The patient continues to have oozi ng from her lower extremities. OBJECTIVE: VITAL SIGNS: Blood pressure 87/50, respirations 26, pulse 68, temperature 98.2. HEENT: Head is normocephalic. NECK: Supple. HEART: Regular rate. LUNGS: Show diminished breath sounds at the base. ABDOMEN: Soft, nontender to palpation without rebound or guarding. EXTREMITIES: Negative for clubbing, cyanosis, positive edema, diffuse anasarca. DERMATOLOGIC: No rashes. MUSCULOSKELETAL: No joint effusion. NEUROLOGIC: No change in exam. MEDICATIONS: The patient's medications have been reviewed. LABORATORY DATA: Reviewed. ASSESSMENT AND PLAN: 1. End-stage renal disease. The patient had hemodialysis yesterday, tolerated well. Plan is for di alysis tomorrow. 2. Anemia. The patient is status post blood transfusion. Monitor hemoglobin and hematocrit levels. Continue Epogen. 3. Volume overload with diffuse anasarca. Continue ultrafiltration with hemodialysis. 4. Hypokalemia. Continue to monitor. Improved. 5. Ventilator-dependent respiratory failure. Vent settings and ABG was reviewed. Continue to monit or. 6. Septic shock. The patient is currently being weaned off pressors. Continue medical management. Continue antibiotic therapy. 7. Thrombocytopenia. The patient's platelet levels were noted to 2. We will follow up with primary team. Consider transfusion. 8. Hypothyroidism. Continue Synthroid. 9. Dysphagia. Continue tube feeding. 10. Arrhythmia. Continue medical management. The patient was given amiodarone. Follow up with car diology. 11. Lower extremity wounds. Continue wound care. 12. Status post cardiopulmonary arrest. DISPOSITION: The patient has very poor prognosis. Dictated By: SARIKA JOINER DO NR/NTS Conf#: [id number] DID#: [id number] CC: LORRAINE JOHNSON MD; RENÉE SKINNER; MANDY BATES MD;*EndCC*
[2018-12-31] MEDS: LEVOTHYROXINE 75 MCG TAB GTB SCH (08:31)
[2018-12-31] MEDS: MIDODRINE 5 MG TAB GTB SCH ×3 (08:31→17:00)
[2018-12-31] MEDS: METHYLPREDNISOLONE 40 MG INJ IV SCH (08:31)
[2018-12-31] MEDS: AMIODARONE 200 MG TAB GTB SCH ×2 (08:32→20:19)
[2018-12-31] MEDS: COLLAGENASE 5 GM (UD JAR) TOP SCH (08:33)
[2018-12-31] MEDS: BALSAM PERU/CASTOR OIL 60 GM TUBE TOP SCH ×2 (08:34→20:19)
--- NOTE | 2018-12-31 08:35 | CONS ---
Assessment/Plan Assessment/Plan Assessment/Plan (Daily) Ventilator setting; AC of 18, tidal volume 400, PEEP of 5, 40% FiO2. Assessment and recommendations; 1. Patient admitted with respiratory failure due to bilateral pneumonia due to Klebsiella pneumonia currently on appropriate antimicrobial regimen. 2. Unstageable sacral ulcers. 3. Severely macerated state. 4. Anemia and severe thrombocytopenia. 5. Interval resolution of hypotension. Continue current supportive care. Transfuse platelets. Overall prognosis remains extremely poor. Consultation Date/Type/Reason Admit Date/Time Nov 21, 2018 at 04:53 Initial Consult Date Type of Consult Pulmonary Requesting Provider: RENÉE SKINNER Date/Time of Note DATE: 12/31/18 TIME: 08:32 24 HR Interval Summary Free Text/Dictation Patient's condition remains critical. Patient however remains awake and appropriately responsive. Has remained hemodynamically stable. General exam; elderly female, appears totally macerated. On ventilator via tracheostomy. Awake and alert. Currently in no distress. Exam/Review of Systems Exam Vitals Vital Signs Date Temp Pulse Resp B/P (MAP) Pulse Ox O2 O2 Flow FiO2 Time Delivery Rate 12/31/18 69 23 87/50 (62) 100 06:00 12/31/18 40 05:15 12/31/18 98.2 04:00 12/30/18 Mechanical 18:00 Ventilator Intake and Output 12/30/18 12/30/18 12/31/18 1515:00 23:00 07:00 IntakeIntake Total 440.00 ml 417.50 ml 225 ml OutputOutput Total 2100 ml BalanceBalance 440.00 ml -1682.50 ml 225 ml Exam H EENT exam; supple neck, no JVD. No lymphadenopathy. Midline trachea. No thyromegaly. Patient has fair dentition. Tracheostomy in place. Insertion site is clean. Chest exam; diminished breath sounds bilaterally. No added sounds. S1-S2 audible, no murmurs. Regular rhythm. Abdomen exam; soft, scaphoid. G-tube in place. Bowel sounds are audible. Extremity exam; no edema. There is severe muscle loss. Back examination; dressing applied over sacrum. STAGE BUILDER exam; patient is awake and appropriately responsive. Skin examination; extensive ecchymosis over chest and neck area. Results Result Diagram: 5/23/19 0400 5/23/19 0400 Results 24hrs Laboratory Tests Test 12/30/18 09:31 12/31/18 04:00 12/31/18 05:09 Platelet Count 7 #*L 2 #*L Prothrombin Time 26.3 #H Prothrombin Time Ratio 2.1 INR International 2.41 Normalized Ratio Activated 41.7 H Partial Thromboplast Time Thrombin Time 14.4 Fibrinogen 351.0 D-Dimer 3878.25 H D-Dimer Comment White Blood Count 5.7 Red Blood Count 3.01 #L Hemoglobin 9.0 #L Hematocrit 25.6 #L Mean Corpuscular Volume 85.0 Mean Corpuscular Hemoglobin 29.9 Mean Corpuscular 35.2 Hemoglobin Concent Red Cell Distribution Width 14.8 H Mean Platelet Volume 12.2 H Immature Granulocytes % 0.200 Neutrophils % Segmented Neutrophils 90 H % (Manual) Band Neutrophils % (Manual) 1 Lymphocytes % Lymphocytes % (Manual) 8 L Monocytes % Monocytes % (Manual) 1 Eosinophils % Basophils % Nucleated Red Blood Cells % 0.0 Immature Granulocytes # 0.010 Neutrophils # Neutrophils # (Manual) 5.1 Band Neutrophils # 0.0 Lymphocytes (Manual) 0.4 L Lymphocytes # Monocytes # Monocytes # (Manual) 0.0 L Eosinophils # Basophils # Nucleated Red Blood Cells # Platelet Estimate SIG DECREASED Giant Platelets 1 H Poikilocytosis 1+ Anisocytosis 1+ Microcytosis 1+ Sodium Level 139 Potassium Level 4.3 Chloride Level 105 Carbon Dioxide Level 27 Anion Gap 7 Blood Urea Nitrogen 77 H Creatinine 0.76 Est Glomerular Filtrat > 60 Rate mL/min Glucose Level 135 # Calcium Level 8.2 L Phosphorus Level 3.0 Magnesium Level 2.0 Lab Scanned Report BLOOD TRANSFUSION Medications Medication Current Medications Glucose (Glutose) 15 gm Q15M PRN PO DECREASED GLUCOSE; Start 11/23/18 at 13:30 Glucose (Glutose) 22.5 gm Q15M PRN PO DECREASED GLUCOSE; Start 11/23/18 at 13:30 Dextrose (D50w Syringe) 25 ml Q15M PRN IV DECREASED GLUCOSE Last administered on 12/09/18at 13:59; Admin Dose 25 ML; Start 11/23/18 at 13:30 Dextrose (D50w Syringe) 50 ml Q15M PRN IV DECREASED GLUCOSE Last administered on 12/10/18at 13:14; Admin Dose 50 ML; Start 11/23/18 at 13:30 Glucagon (Glucagen) 1 mg Q15M PRN IM DECREASED GLUCOSE; Start 11/23/18 at 13:30 Glucose (Glutose) 15 gm Q15M PRN BUCCAL DECREASED GLUCOSE; Start 11/23/18 at 13:30 Alteplase, Recombinant (Cathflo (Activase)) 2 mg MAY REPEAT X1 PRN CATHETER IF CATHETER REMAINS OCCULUDED Last administered on 12/02/18 15:47; Admin Dose 2 MG; Start 11/26/18 at 03:00 Albumin Human 100 ml @ 100 mls/hr DURING DIALYSIS PRN IV HYPOTENSION DURING HD Last administered on 12/28/18 08:00; Admin Dose 100 MLS/HR; Start 11/26/18 at 14:00 Collagenase (Santyl) 1 applic DAILY TOP Last administered on 12/30/18 08:24; Admin Dose 1 APPLIC; Start 12/01/18 at 16:30 Acetaminophen (Tylenol Liquid) 650 mg Q6H PRN NGT PAIN LEVEL 1-3 OR FEVER Last administered on 12/28/18 06:03; Admin Dose 650 MG; Start 12/06/18 at 09:00 Midodrine (Proamatine) 5 mg TID@09,13,17 GTB Last administered on 12/30/18 17:56; Admin Dose 5 MG; Start 12/07/18 at 09:00 Epoetin Margarito-epbx (RETACRIT(esrd)) 10,000 unit MoWeFr@1700 SC Last administered on 12/30/18 17:57; Admin Dose 10,000 UNIT; Start 12/11/18 at 17:00 Lorazepam (Ativan) 1 mg Q4H PRN IV AGITATION/ANXIETY Last administered on 12/19/18 05:41; Admin Dose 1 MG; Start 12/15/18 at 11:00 Morphine Sulfate (morphine) 1 mg Q4H PRN IV SEVERE PAIN LEVEL 7-10 Last administered on 12/19/18 03:37; Admin Dose 1 MG; Start 12/15/18 at 11:00 Metoclopramide HCl (Reglan) 5 mg Q8 IV Last administered on 12/31/18 05:33; Admin Dose 5 MG; Start 12/17/18 at 12:00 Miscellaneous Information 1 ea BID XX Last administered on 5/22/19at 08:24; Admin Dose 1 EA; Start 12/21/18 at 15:00 Miscellaneous Information 1 ea BID XX Last administered on 12/30/18at 08:24; Admin Dose 1 EA; Start 12/23/18 at 14:00 Methylprednisolone Sodium Succinate (Solu-Medrol) 40 mg DAILY IV Last administered on 12/30/18at 08:21; Admin Dose 40 MG; Start 12/28/18 at 09:00; S top 01/01/19 at 17:59 Norepinephrine 250 ml @ 1.875 mls/ hr TITRATE IV Last administered on 12/30/18 at 14:42; Admin Dose 22.5 MLS/HR; Start 12/29/18 at 09:30 Diltiazem HCl 125 ml @ 5 mls/hr TITRATE IV ; Start 12/29/18 at 09:30 Meropenem/Sodium Chloride 50 ml @ 100 mls/hr Q12 IVPB Last administered on 12/30/18at 20:24; Admin Dose 100 MLS/HR; Start 12/29/18 at 21:00 Clindamycin HCl/ Dextrose 50 ml @ 100 mls/hr Q8 IVPB Last administered on 12/31/18at 05:33; Admin Dose 100 MLS/HR; Start 12/29/18 at 15:00 Amiodarone HCl (Cordarone) 400 mg BID GTB Last administered on 12/30/18at 20:25; Admin Dose 400 MG; Start 12/29/18 at 21:00 Levothyroxine Sodium (Synthroid) 75 mcg BEFORE BREAKFAST GTB Last administered on 12/30/18at 06:05; Admin Dose 75 MCG; Start 12/30/18 at 07:00 Albuterol (Ventolin Hfa) 4 puff Q4H RESP THERAPY PRN INH WHEEZING; Start 12/30/18 at 08:00 Caspofungin 50 mg/ Sodium Chloride 250 ml @ 250 mls/hr Q24H IVPB ; Start 12/31/18 at 13:00 Phenylephrine HCl 250 ml @ 75 mls/hr TITRATE IV ; Start 12/30/18 at 17:00 MARIAN KUMAR December 31, 2018 08:35
[2018-12-31] MEDS: (Nursing Note) XX SCH ×4 (09:00→20:20)
[2018-12-31] MEDS: MEROPENEM 500MG/50 ML (PMX) 50 ML IVPB SCH ×2 (09:36→20:18)
--- NOTE | 2018-12-31 10:50 | PN ---
Date/Time of Note Date/Time of Note DATE: 12/31/18 TIME: 10:47 Assessment/Plan VTE Prophylaxis Risk score (from Ns)>0 risk: 9 SCD applied (from Ns): Yes Pharmacological prophylaxis: NA/contraindicated Pharm contraindication: bleeding, thrombocytopenia Lines/Catheters IV [facility] Mid Line Urinary Cath still in place: No Assessment/Plan Hospital Course S: Patient given more PRBC and platelet transfusions yesterday, and although hemoglobin more stable today, platelets still severely low despite platelet transfusion. Seen by pulmonary, hematology oncology, and renal teams this morning. Had to be started on second pressor yesterday. O: VS- see below PE: On MV via trach, minimally interactive Chronically ill appearing, cachectic Lungs clear Still Distended belly, firm masses, G tube in place Mild peripheral edema present LUE wound wrapped A/P: 58 yo female with ESRD, questionable cirrhosis, DMII presents with hypoglycemia, leg infection. Suffered cardiac and respiratory arrest, recovered with good neurologic status however was unable to be weaned from mechanical ventilation and is now s/p trach and PEG. # Chronic respiratory failure: Treated for pneumonia earlier this admission as well as respiratory failure, status post trach placement earlier this admission as well. -Continue MV per pulm via trach, follow pulmonary recommendations, current antifungal and antibacterial medications -Continue to wean steroids off over the next few days -For the hypertension, continue pressor support and wean off as tolerated if possible # Left lower extremity wound: Per ID team there is also concern of a possible infected graft. Blood cultures from last month as well as wound culture from last month positive for Klebsiella, patient presently on ertapenem as well as fluconazole. -Continue antibiotics indefinitely per ID # ESRD -For now continue HD per nephrology # Hypothyroidism: - Continue Synthroid # Anemia of CKD: Also thrombocytopenia, prior diagnosis of this secondary to HIT. Despite multiple PRBC transfusions and platelet transfusions in the last few days, as mentioned above although the hemoglobin is more stable today, platelets are severely low, 2000 today. -Monitor CBC for now, ordered for 2 more units of platelets this morning, DIC panel ordered as well -Have consulted hematology oncology team as well # Prophylaxis: SCDs Dispo: Again still in intensive care unit the last 3 days. As mentioned above bioethics meeting held 2 days ago, family was present during the meeting as well. At this point patient is still on pressor support x 2 now. Family agreed to chemical code only. Family is aware patient has very poor prognosis at this point in time. Critical care time spent on patient care today equals 45 minutes. Result Diagram: 12/31/180 12/31/18 0400 Results 24hrs Laboratory Tests Test 12/31/18 04:00 12/31/18 05:09 White Blood Count 5.7 Red Blood Count 3.01 #L Hemoglobin 9.0 #L Hematocrit 25.6 #L Mean Corpuscular Volume 85.0 Mean Corpuscular Hemoglobin 29.9 Mean Corpuscular Hemoglobin Concent 35.2 Red Cell Distribution Width 14.8 H Platelet Count 2 #*L Mean Platelet Volume 12.2 H Immature Granulocytes % 0.200 Neutrophils % Segmented Neutrophils % (Manual) 90 H Band Neutrophils % (Manual) 1 Lymphocytes % Lymphocytes % (Manual) 8 L Monocytes % Monocytes % (Manual) 1 Eosinophils % Basophils % Nucleated Red Blood Cells % 0.0 Immature Granulocytes # 0.010 Neutrophils # Neutrophils # (Manual) 5.1 Band Neutrophils # 0.0 Lymphocytes (Manual) 0.4 L Lymphocytes # Monocytes # Monocytes # (Manual) 0.0 L Eosinophils # Basophils # Nucleated Red Blood Cells # Platelet Estimate SIG DECREASED Giant Platelets 1 H Poikilocytosis 1+ Anisocytosis 1+ Microcytosis 1+ Sodium Level 139 Potassium Level 4.3 Chloride Level 105 Carbon Dioxide Level 27 Anion Gap 7 Blood Urea Nitrogen 77 H Creatinine 0.76 Est Glomerular Filtrat Rate mL/min > 60 Glucose Level 135 # Calcium Level 8.2 L Phosphorus Level 3.0 Magnesium Level 2.0 Lab Scanned Report BLOOD TRANSFUSION Exam/Review of Systems Exam Vitals Vital Signs Date Temp Pulse Resp B/P (MAP) Pulse Ox O2 O2 Flow FiO2 Time Delivery Rate 12/31/18 64 21 119/58 100 Mechanical 10:30 (78) Ventilator 12/31/18 40 08:00 12/31/18 98.2 04:00 Intake and Output 12/30/18 12/30/18 12/31/18 1515:00 23:00 07:00 IntakeIntake Total 440.00 ml 417.50 ml 225 ml OutputOutput Total 2100 ml BalanceBalance 440.00 ml -1682.50 ml 225 ml Results Results 24hrs Laboratory Tests Test 12/31/18 04:00 12/31/18 05:09 White Blood Count 5.7 Red Blood Count 3.01 #L Hemoglobin 9.0 #L Hematocrit 25.6 #L Mean Corpuscular Volume 85.0 Mean Corpuscular Hemoglobin 29.9 Mean Corpuscular Hemoglobin Concent 35.2 Red Cell Distribution Width 14.8 H Platelet Count 2 #*L Mean Platelet Volume 12.2 H Immature Granulocytes % 0.200 Neutrophils % Segmented Neutrophils % (Manual) 90 H Band Neutrophils % (Manual) 1 Lymphocytes % Lymphocytes % (Manual) 8 L Monocytes % Monocytes % (Manual) 1 Eosinophils % Basophils % Nucleated Red Blood Cells % 0.0 Immature Granulocytes # 0.010 Neutrophils # Neutrophils # (Manual) 5.1 Band Neutrophils # 0.0 Lymphocytes (Manual) 0.4 L Lymphocytes # Monocytes # Monocytes # (Manual) 0.0 L Eosinophils # Basophils # Nucleated Red Blood Cells # Platelet Estimate SIG DECREASED Giant Platelets 1 H Poikilocytosis 1+ Anisocytosis 1+ Microcytosis 1+ Sodium Level 139 Potassium Level 4.3 Chloride Level 105 Carbon Dioxide Level 27 Anion Gap 7 Blood Urea Nitrogen 77 H Creatinine 0.76 Est Glomerular Filtrat Rate mL/min > 60 Glucose Level 135 # Calcium Level 8.2 L Phosphorus Level 3.0 Magnesium Level 2.0 Lab Scanned Report BLOOD TRANSFUSION Medications Medication Current Medications Glucose (Glutose) 15 gm Q15M PRN PO DECREASED GLUCOSE; Start 11/23/18 at 13:30 Glucose (Glutose) 22.5 gm Q15M PRN PO DECREASED GLUCOSE; Start 11/23/18 at 13:30 Dextrose (D50w Syringe) 25 ml Q15M PRN IV DECREASED GLUCOSE Last administered on 12/09/18at 13:59; Admin Dose 25 ML; Start 11/23/18 at 13:30 Dextrose (D50w Syringe) 50 ml Q15M PRN IV DECREASED GLUCOSE Last administered on 12/10/18at 13:14; Admin Dose 50 ML; Start 11/23/18 at 13:30 Glucagon (Glucagen) 1 mg Q15M PRN IM DECREASED GLUCOSE; Start 11/23/18 at 13:30 Glucose (Glutose) 15 gm Q15M PRN BUCCAL DECREASED GLUCOSE; Start 11/23/18 at 13:30 Alteplase, Recombinant (Cathflo (Activase)) 2 mg MAY REPEAT X1 PRN CATHETER IF CATHETER REMAINS OCCULUDED Last administered on 12/02/18 15:47; Admin Dose 2 MG; Start 11/26/18 at 03:00 Albumin Human 100 ml @ 100 mls/hr DURING DIALYSIS PRN IV HYPOTENSION DURING HD Last administered on 12/28/18 08:00; Admin Dose 100 MLS/HR; Start 11/26/18 at 14:00 Collagenase (Santyl) 1 applic DAILY TOP Last administered on 12/31/18 08:33; Admin Dose 1 APPLIC; Start 12/01/18 at 16:30 Acetaminophen (Tylenol Liquid) 650 mg Q6H PRN NGT PAIN LEVEL 1-3 OR FEVER Last administered on 12/28/18 06:03; Admin Dose 650 MG; Start 12/06/18 at 09:00 Midodrine (Proamatine) 5 mg TID@09,13,17 GTB Last administered on 12/31/18 08:31; Admin Dose 5 MG; Start 12/07/18 at 09:00 Epoetin Margarito-epbx (RETACRIT(esrd)) 10,000 unit MoWeFr@1700 SC Last administered on 12/30/18 17:57; Admin Dose 10,000 UNIT; Start 12/11/18 at 17:00 Lorazepam (Ativan) 1 mg Q4H PRN IV AGITATION/ANXIETY Last administered on 12/19/18 05:41; Admin Dose 1 MG; Start 12/15/18 at 11:00 Morphine Sulfate (morphine) 1 mg Q4H PRN IV SEVERE PAIN LEVEL 7-10 Last administered on 12/19/18 03:37; Admin Dose 1 MG; Start 12/15/18 at 11:00 Metoclopramide HCl (Reglan) 5 mg Q8 IV Last administered on 12/31/18 05:33; Admin Dose 5 MG; Start 12/17/18 at 12:00 Miscellaneous Information 1 ea BID XX Last administered on 12/31/18 09:00; Admin Dose 1 EA; Start 12/21/18 at 15:00 Miscellaneous Information 1 ea BID XX Last administered on 12/31/18 09:00; Admin Dose 1 EA; Start 12/23/18 at 14:00 Methylprednisolone Sodium Succinate (Solu-Medrol) 40 mg DAILY IV Last administered on 5/23/19at 08:31; Admin Dose 40 MG; Start 12/28/18 at 09:00; Stop 01/01/19 at 17:59 Norepinephrine 250 ml @ 1.875 mls/ hr TITRATE IV Last administered on 12/30/18at 14:42; Admin Dose 22.5 MLS/HR; Start 12/29/18 at 09:30 Diltiazem HCl 125 ml @ 5 mls/hr TITRATE IV ; Start 12/29/18 at 09:30 Meropenem/Sodium Chloride 50 ml @ 100 mls/hr Q12 IVPB Last administered on 12/31/18at 09:36; Admin Dose 100 MLS/HR; Start 12/29/18 at 21:00 Clindamycin HCl/ Dextrose 50 ml @ 100 mls/hr Q8 IVPB Last administered on 12/31/18at 05:33; Admin Dose 100 MLS/HR; Start 12/29/18 at 15:00 Amiodarone HCl (Cordarone) 400 mg BID GTB Last administered on 12/31/18at 08:32; Admin Dose 400 MG; Start 12/29/18 at 21:00 Levothyroxine Sodium (Synthroid) 75 mcg BEFORE BREAKFAST GTB Last administered on 12/31/18at 08:31; Admin Dose 75 MCG; Start 12/30/18 at 07:00 Albuterol (Ventolin Hfa) 4 puff Q4H RESP THERAPY PRN INH WHEEZING; Start 12/30/18 at 08:00 Caspofungin 50 mg/ Sodium Chloride 250 ml @ 250 mls/hr Q24H IVPB ; Start 12/31/18 at 13:00 Phenylephrine HCl 250 ml @ 75 mls/hr TITRATE IV ; Start 12/30/18 at 17:00 RENÉE SKINNER December 31, 2018 10:50
--- NOTE | 2018-12-31 11:56 | PN ---
Date/Time of Note Date/Time of Note DATE: 12/31/18 TIME: 11:55 Assessment/Plan Lines/Catheters IV Catheter Type (from Nrsg): Mid Line Moon in Place (from Nrsg): No Assessment/Plan Assessment/Plan Respiratory failure Status post tracheostomy\ Trach site clean Continue trach care Vent support Plan for permacath next week Subjective 24 Hr Interval Summary Constitutional: improved Pain Control: mild Exam/Review of Systems Vital Signs Vitals Vital Signs Date Temp Pulse Resp B/P (MAP) Pulse Ox O2 O2 Flow FiO2 Time Delivery Rate 12/31/18 64 21 119/58 100 Mechanical 10:30 (78) Ventilator 12/31/18 40 08:00 12/31/18 98.2 04:00 Intake and Output 12/30/18 12/30/18 12/31/18 1515:00 23:00 07:00 IntakeIntake Total 440.00 ml 417.50 ml 225 ml OutputOutput Total 2100 ml BalanceBalance 440.00 ml -1682.50 ml 225 ml Exam Head: normocephalic, atraumatic Eyes: nl conjunctiva, EOMI, nl lids, nl sclera ENMT: nl external ears & nose, nl lips & teeth, nl nasal mucosa & septum, mucosa pink and moist Neck: supple, non-tender Respiratory: clear to auscultation, normal air movement Cardiovascular: regular rate and rhythm, nl pulses Gastrointestinal: soft, nl liver, spleen, non-tender Results Result Diagram: 12/31/1839912/31/180 TAE PAN MD December 31, 2018 11:56
--- NOTE | 2018-12-31 12:22 | CONS ---
Assessment/Plan Assessment/Plan Hospital Course (Demo Recall) No events patient looks comfortable, family at bedside, no fevers. WBC 5.7 H&H 9 and 25.6 platelets 2 Antimicrobials: Cancidas, clindamycin, meropenem Microbiology: Blood culture on admission grew Klebsiella ESBL, repeat blood cultures negative, left thigh wound culture grew Klebsiella ESBL and Leah albicans Allergy: Zosyn, vancomycin Indwelling: Right upper thigh Davie catheter, left femoral triple-lumen catheter, trach Physical examination: This is a chronically ill-appearing cachectic middle-aged woman who is laying comfortably in bed. Head atraumatic normocephalic. Neck is supple. Chest rise symmetrical. Breath sounds diminished bases. Heart: S1-S2, irreg. Abdomen distended. Bowel sounds hypoactive. Extremities with bilateral edema, cyanotic, multiple ecchymotic areas and bruises, left upper thigh dressing present Assessment: 1. Septic shock 2. Healthcare associated pneumonia 3. Respiratory failure, acute on chronic, status post tracheostomy on this admission 4. Peripheral arterial disease status post left lower extremity bypass graft that became infected with wound culture grew Klebsiella ESBL 5. End-stage renal disease, hemodialysis dependent 6. Dysphagia 7. Coronary artery disease status post atrial fibrillation, status post permanent pacemaker 8. Failure to thrive with severe cachexia 9 . Unstageable sacral decubitus 10. History of peritoneal dialysis with peritoneal dialysis still in place 11. Thrombocytopenia 12. S/p B mastoiditis and acute sinusitis Plan: Remains unchanged. Continue present care, prognosis very poor Consultation Date/Type/Reason Admit Date/Time Nov 21, 2018 at 04:53 Initial Consult Date Type of Consult id Requesting Provider: RENÉE SKINNER Date/Time of Note DATE: 12/31/18 TIME: 12:21 Exam/Review of Systems Exam Vitals Vital Signs Date Temp Pulse Resp B/P (MAP) Pulse Ox O2 O2 Flow FiO2 Time Delivery Rate 12/31/18 64 21 119/58 100 Mechanical 10:30 (78) Ventilator 12/31/18 40 08:00 12/31/18 98.2 04:00 Intake and Output 12/30/18 12/30/18 12/31/18 1515:00 23:00 07:00 IntakeIntake Total 440.00 ml 417.50 ml 225 ml OutputOutput Total 2100 ml BalanceBalance 440.00 ml -1682.50 ml 225 ml Results Result Diagram: 12/31/18 0400 12/31/18 0400 Results 24hrs Laboratory Tests Test 12/31/18 04:00 12/31/18 05:09 White Blood Count 5.7 Red Blood Count 3.01 #L Hemoglobin 9.0 #L Hematocrit 25.6 #L Mean Corpuscular Volume 85.0 Mean Corpuscular Hemoglobin 29.9 Mean Corpuscular Hemoglobin Concent 35.2 Red Cell Distribution Width 14.8 H Platelet Count 2 #*L Mean Platelet Volume 12.2 H Immature Granulocytes % 0.200 Neutrophils % Segmented Neutrophils % (Manual) 90 H Band Neutrophils % (Manual) 1 Lymphocytes % Lymphocytes % (Manual) 8 L Monocytes % Monocytes % (Manual) 1 Eosinophils % Basophils % Nucleated Red Blood Cells % 0.0 Immature Granulocytes # 0.010 Neutrophils # Neutrophils # (Manual) 5.1 Band Neutrophils # 0.0 Lymphocytes (Manual) 0.4 L Lymphocytes # Monocytes # Monocytes # (Manual) 0.0 L Eosinophils # Basophils # Nucleated Red Blood Cells # Platelet Estimate SIG DECREASED Giant Platelets 1 H Poikilocytosis 1+ Anisocytosis 1+ Microcytosis 1+ Sodium Level 139 Potassium Level 4.3 Chloride Level 105 Carbon Dioxide Level 27 Anion Gap 7 Blood Urea Nitrogen 77 H Creatinine 0.76 Est Glomerular Filtrat Rate mL/min > 60 Glucose Level 135 # Calcium Level 8.2 L Phosphorus Level 3.0 Magnesium Level 2.0 Lab Scanned Report BLOOD TRANSFUSION Medications Medication Current Medications Glucose (Glutose) 15 gm Q15M PRN PO DECREASED GLUCOSE; Start 11/23/18 at 13:30 Glucose (Glutose) 22.5 gm Q15M PRN PO DECREASED GLUCOSE; Start 11/23/18 at 13:30 Dextrose (D50w Syringe) 25 ml Q15M PRN IV DECREASED GLUCOSE Last administered on 12/09/18at 13:59; Admin Dose 25 ML; Start 11/23/18 at 13:30 Dextrose (D50w Syringe) 50 ml Q15M PRN IV DECREASED GLUCOSE Last administered on 12/10/18at 13:14; Admin Dose 50 ML; Start 11/23/18 at 13:30 Glucagon (Glucagen) 1 mg Q15M PRN IM DECREASED GLUCOSE; Start 11/23/18 at 13:30 Glucose (Glutose) 15 gm Q15M PRN BUCCAL DECREASED GLUCOSE; Start 11/23/18 at 13:30 Alteplase, Recombinant (Cathflo (Activase)) 2 mg MAY REPEAT X1 PRN CATHETER IF CATHETER REMAINS OCCULUDED Last administered on 12/02/18 15:47; Admin Dose 2 MG; Start 11/26/18 at 03:00 Albumin Human 100 ml @ 100 mls/hr DURING DIALYSIS PRN IV HYPOTENSION DURING HD Last administered on 12/28/18 08:00; Admin Dose 100 MLS/HR; Start 11/26/18 at 14:00 Collagenase (Santyl) 1 applic DAILY TOP Last administered on 12/31/18 08:33; Admin Dose 1 APPLIC; Start 12/01/18 at 16:30 Acetaminophen (Tylenol Liquid) 650 mg Q6H PRN NGT PAIN LEVEL 1-3 OR FEVER Last administered on 12/28/18 06:03; Admin Dose 650 MG; Start 12/06/18 at 09:00 Midodrine (Proamatine) 5 mg TID@,13,17 GTB Last administered on 12/31/18 08:31; Admin Dose 5 MG; Start 12/07/18 at 09:00 Epoetin Margarito-epbx (RETACRIT(esrd)) 10,000 unit MoWeFr@1700 SC Last administered on 12/30/18 17:57; Admin Dose 10,000 UNIT; Start 12/11/18 at 17:00 Lorazepam (Ativan) 1 mg Q4H PRN IV AGITATION/ANXIETY Last administered on 12/19/18 05:41; Admin Dose 1 MG; Start 12/15/18 at 11:00 Morphine Sulfate (morphine) 1 mg Q4H PRN IV SEVERE PAIN LEVEL 7-10 Last administered on 12/19/18 03:37; Admin Dose 1 MG; Start 12/15/18 at 11:00 Metoclopramide HCl (Reglan) 5 mg Q8 IV Last administered on 12/31/18 05:33; Admin Dose 5 MG; Start 12/17/18 at 12:00 Miscellaneous Information 1 ea BID XX Last administered on 12/31/18 09:00; A dmin Dose 1 EA; Start 12/21/18 at 15:00 Miscellaneous Information 1 ea BID XX Last administered on 12/31/18 09:00; Admin Dose 1 EA; Start 12/23/18 at 14:00 Methylprednisolone Sodium Succinate (Solu-Medrol) 40 mg DAILY IV Last administered on 12/31/18 08:31; Admin Dose 40 MG; Start 12/28/18 at 09:00; Stop 01/01/19 at 17:59 Norepinephrine 250 ml @ 1.875 mls/ hr TITRATE IV Last administered on 12/30/18 14:42; Admin Dose 22.5 MLS/HR; Start 12/29/18 at 09:30 Diltiazem HCl 125 ml @ 5 mls/hr TITRATE IV ; Start 12/29/18 at 09:30 Meropenem/Sodium Chloride 50 ml @ 100 mls/hr Q12 IVPB Last administered on 12/31/18 09:36; Admin Dose 100 MLS/HR; Start 12/29/18 at 21:00 Clindamycin HCl/ Dextrose 50 ml @ 100 mls/hr Q8 IVPB Last administered on 12/31/18 05:33; Admin Dose 100 MLS/HR; Start 12/29/18 at 15:00 Amiodarone HCl (Cordarone) 400 mg BID GTB Last administered on 12/31/18 08:32; Admin Dose 400 MG; Start 12/29/18 at 21:00 Levothyroxine Sodium (Synthroid) 75 mcg BEFORE BREAKFAST GTB Last administered on 12/31/18 08:31; Admin Dose 75 MCG; Start 12/30/18 at 07:00 Albuterol (Ventolin Hfa) 4 puff Q4H RESP THERAPY PRN INH WHEEZING; Start 12/30/18 at 08:00 Caspofungin 50 mg/ Sodium Chloride 250 ml @ 250 mls/hr Q24H IVPB ; Start 12/31/18 at 13:00 Phenylephrine HCl 250 ml @ 75 mls/hr TITRATE IV ; Start 12/30/18 at 17:00 KELSIE ELY NP December 31, 2018 12:22
[2018-12-31] MEDS: CASPOFUNGIN 50 MG in SOD CHLORIDE 0.9% 250 ML IVPB SCH (12:37)
--- NOTE | 2018-12-31 13:27 | CONS ---
Assessment/Plan Assessment/Plan Assessment/Plan (Daily) Pancytopenia with primarily a thrombocytopenia. She does not exhibit a rise in the platelet count with transfusion of platelets, which suggests platelet alloantibodies. I would not suggest transfusing more platelets unless a surgical procedure is contemplated or unless there is clinical bleeding. There is likely a consumptive process occurring but resolution of her other problems would be the solution. That resolution seems very unlikely. She is now a chemical code only. This is reasonable. It is extremely unlikely that she will leave the hospital alive. I agree with the efforts to director of counseling the family regarding her upcoming . Consultation Date/Type/Reason Admit Date/Time Nov 21, 2018 at 04:53 Date of Consultation: December 31, 2018 Type of Consult hematology Reason for Consultation thrombocytopenia Requesting Provider: RENÉE SKINNER Date/Time of Note DATE: 12/31/18 TIME: 13:12 Hx of Present Illness Unfortunate 58 yo woman referred for thrombocytopenia. History is summarized in the numerous other notes. In brief, she has acute and chronic respiratory insufficiency and now has a tracheostomy. She also had peripheral vascular disease and had grafts done but they became infected with Klebsiella and Leah. She also has sacral decubiti, hypothyroidism, renal insufficiency, poor nutrition, atrial fibrillation and cardiomyopathy. The platelets have been remaining <10 despite platelet transfusions daily over the last four days. There is no active bleeding now. I am not able to talk with her but discussed case with doctors and reviewed the chart. Past Medical History Medical History: hypertension, hypothyroid, renal disease, other (See HPI) Home Meds Reported Medications Folic Acid* (Folic Acid*) 1 Mg Tablet, 1 MG PO DAILY, TAB 08/10/18 Amiodarone Hcl* (Amiodarone Hcl*) 200 Mg Tablet, 200 MG PO BID, #60 TAB 08/10/18 Pantoprazole* (Protonix*) 40 Mg Tablet.dr, 40 MG PO DAILY, TAB 08/10/18 Multivit/Ca Carb/B Cmplx/Fa* (Iram-Xiomara*) 1 Tab Tab, 1 TAB PO DAILY, TAB 08/10/18 Levothyroxine Sodium* (Levoxyl*) 75 Mcg Tablet, 75 MCG PO BEFORE BREAKFAST, #30 TAB 08/10/18 Medications Current Medications Glucose (Glutose) 15 gm Q15M PRN PO DECREASED GLUCOSE; Start 11/23/18 at 13:30 Glucose (Glutose) 22.5 gm Q15M PRN PO DECREASED GLUCOSE; Start 11/23/18 at 13:30 Dextrose (D50w Syringe) 25 ml Q15M PRN IV DECREASED GLUCOSE Last administered on 12/09/18 13:59; Admin Dose 25 ML; Start 11/23/18 at 13:30 Dextrose (D50w Syringe) 50 ml Q15M PRN IV DECREASED GLUCOSE Last administered on 12/10/18 13:14; Admin Dose 50 ML; Start 11/23/18 at 13:30 Glucagon (Glucagen) 1 mg Q15M PRN IM DECREASED GLUCOSE; Start 11/23/18 at 13:30 Glucose (Glutose) 15 gm Q15M PRN BUCCAL DECREASED GLUCOSE; Start 11/23/18 at 13:30 Alteplase, Recombinant (Cathflo (Activase)) 2 mg MAY REPEAT X1 PRN CATHETER IF CATHETER REMAINS OCCULUDED Last administered on 12/02/18 15:47; Admin Dose 2 MG; Start 11/26/18 at 03:00 Albumin Human 100 ml @ 100 mls/hr DURING DIALYSIS PRN IV HYPOTENSION DURING HD Last administered on 12/28/18 08:00; Admin Dose 100 MLS/HR; Start 11/26/18 at 14:00 Collagenase (Santyl) 1 applic DAILY TOP Last administered on 12/31/18 08:33; Admin Dose 1 APPLIC; Start 12/01/18 at 16:30 Acetaminophen (Tylenol Liquid) 650 mg Q6H PRN NGT PAIN LEVEL 1-3 OR FEVER Last administered on 12/28/18 06:03; Admin Dose 650 MG; Start 12/06/18 at 09:00 Midodrine (Proamatine) 5 mg TID@09,13,17 GTB Last administered on 12/31/18 08:31; Admin Dose 5 MG; Start 12/07/18 at 09:00 Epoetin Margarito-epbx (RETACRIT(esrd)) 10,000 unit MoWeFr@1700 SC Last administered on 12/30/18 17:57; Admin Dose 10,000 UNIT; Start 12/11/18 at 17:00 Lorazepam (Ativan) 1 mg Q4H PRN IV AGITATION/ANXIETY Last administered on 12/19/18 05:41; Admin Dose 1 MG; Start 12/15/18 at 11:00 Morphine Sulfate (morphine) 1 mg Q4H PRN IV SEVERE PAIN LEVEL 7-10 Last administered on 12/19/18 03:37; Admin Dose 1 MG; Start 12/15/18 at 11:00 Metoclopramide HCl (Reglan) 5 mg Q8 IV Last administered on 12/31/18 05:33; Admin Dose 5 MG; Start 12/17/18 at 12:00 Miscellaneous Information 1 ea BID XX Last administered on 12/31/18 09:00; Admin Dose 1 EA; Start 12/21/18 at 15:00 Miscellaneous Information 1 ea BID XX Last administered on 12/31/18 09:00; Admin Dose 1 EA; Start 12/23/18 at 14:00 Methylprednisolone Sodium Succinate (Solu-Medrol) 40 mg DAILY IV Last administered on 12/31/18 08:31; Admin Dose 40 MG; Start 12/28/18 at 09:00; Stop 01/01/19 at 17:59 Norepinephrine 250 ml @ 1.875 mls/ hr TITRATE IV Last administered on 12/30/18 14:42; Admin Dose 22.5 MLS/HR; Start 12/29/18 at 09:30 Diltiazem HCl 125 ml @ 5 mls/hr TITRATE IV ; Start 12/29/18 at 09:30 Meropenem/Sodium Chloride 50 ml @ 100 mls/hr Q12 IVPB Last administered on 12/31/18 09:36; Admin Dose 100 MLS/HR; Start 12/29/18 at 21:00 Clindamycin HCl/ Dextrose 50 ml @ 100 mls/hr Q8 IVPB Last administered on 12/31/18 05:33; Admin Dose 100 MLS/HR; Start 12/29/18 at 15:00 Amiodarone HCl (Cordarone) 400 mg BID GTB Last administered on 12/31/18 08:32; Admin Dose 400 MG; Start 12/29/18 at 21:00 Levothyroxine Sodium (Synthroid) 75 mcg BEFORE BREAKFAST GTB Last administered on 12/31/18 08:31; Admin Dose 75 MCG; Start 12/30/18 at 07:00 Albuterol (Ventolin Hfa) 4 puff Q4H RESP THERAPY PRN INH WHEEZING; Start 12/30/18 at 08:00 Caspofungin 50 mg/ Sodium Chloride 250 ml @ 250 mls/hr Q24H IVPB Last administered on 12/31/18at 12:37; Admin Dose 250 MLS/HR; Start 12/31/18 at 13:00 Phenylephrine HCl 250 ml @ 75 mls/hr TITRATE IV ; Start 12/30/18 at 17:00 Allergies: Coded Allergies: Penicillins (Verified Allergy, Unknown, 12/16/18) tazobactam (Verified Allergy, Unknown, 12/16/18) vancomycin (Verified Allergy, Unknown, 12/16/18) Past Surgical History Past Surgical Hx: other Social History Alcohol Use: none Smoking Status: Never smoker Drug Use: none Exam/Review of Systems Exam Vitals Vital Signs Date Temp Pulse Resp B/P (MAP) Pulse Ox O2 O2 Flow FiO2 Time Delivery Rate 12/31/18 70 27 100 40 11:26 12/31/18 119/58 Mechanical 10:30 (78) Ventilator 12/31/18 98.2 04:00 Intake and Output 12/30/18 12/30/18 12/31/18 1515:00 23:00 07:00 IntakeIntake Total 440.00 ml 417.50 ml 225 ml OutputOutput Total 2100 ml BalanceBalance 440.00 ml -1682.50 ml 225 ml Constitutional: other Head: other Eyes: other (pallor) ENMT: other Respiratory: diminished breath sounds Cardiovascular: other (no murmurs) Gastrointestinal: soft Extremities: other Neurological: unresponsive Results Result Diagram: 12/31/18 0400 12/31/18 0400 Results 24hrs Laboratory Tests Test 12/31/18 04:00 12/31/18 05:09 White Blood Count 5.7 Red Blood Count 3.01 #L Hemoglobin 9.0 #L Hematocrit 25.6 #L Mean Corpuscular Volume 85.0 Mean Corpuscular Hemoglobin 29.9 Mean Corpuscular Hemoglobin Concent 35.2 Red Cell Distribution Width 14.8 H Platelet Count 2 #*L Mean Platelet Volume 12.2 H Immature Granulocytes % 0.200 Neutrophils % Segmented Neutrophils % (Manual) 90 H Band Neutrophils % (Manual) 1 Lymphocytes % Lymphocytes % (Manual) 8 L Monocytes % Monocytes % (Manual) 1 Eosinophils % Basophils % Nucleated Red Blood Cells % 0.0 Immature Granulocytes # 0.010 Neutrophils # Neutrophils # (Manual) 5.1 Band Neutrophils # 0.0 Lymphocytes (Manual) 0.4 L Lymphocytes # Monocytes # Monocytes # (Manual) 0.0 L Eosinophils # Basophils # Nucleated Red Blood Cells # Platelet Estimate SIG DECREASED Giant Platelets 1 H Poikilocytosis 1+ Anisocytosis 1+ Microcytosis 1+ Sodium Level 139 Potassium Level 4.3 Chloride Level 105 Carbon Dioxide Level 27 Anion Gap 7 Blood Urea Nitrogen 77 H Creatinine 0.76 Est Glomerular Filtrat Rate mL/min > 60 Glucose Level 135 # Calcium Level 8.2 L Phosphorus Level 3.0 Magnesium Level 2.0 Lab Scanned Report BLOOD TRANSFUSION Medications Medication Current Medications Glucose (Glutose) 15 gm Q15M PRN PO DECREASED GLUCOSE; Start 11/23/18 at 13:30 Glucose (Glutose) 22.5 gm Q15M PRN PO DECREASED GLUCOSE; Start 11/23/18 at 13:30 Dextrose (D50w Syringe) 25 ml Q15M PRN IV DECREASED GLUCOSE Last administered on 12/09/18at 13:59; Admin Dose 25 ML; Start 11/23/18 at 13:30 Dextrose (D50w Syringe) 50 ml Q15M PRN IV DECREASED GLUCOSE Last administered on 12/10/18 13:14; Admin Dose 50 ML; Start 11/23/18 at 13:30 Glucagon (Glucagen) 1 mg Q15M PRN IM DECREASED GLUCOSE; Start 11/23/18 at 13:30 Glucose (Glutose) 15 gm Q15M PRN BUCCAL DECREASED GLUCOSE; Start 11/23/18 at 13:30 Alteplase, Recombinant (Cathflo (Activase)) 2 mg MAY REPEAT X1 PRN CATHETER IF CATHETER REMAINS OCCULUDED Last administered on 12/02/18at 15:47; Admin Dose 2 MG; Start 11/26/18 at 03:00 Albumin Human 100 ml @ 100 mls/hr DURING DIALYSIS PRN IV HYPOTENSION DURING HD Last administered on 12/28/18at 08:00; Admin Dose 100 MLS/HR; Start 11/26/18 at 14:00 Collagenase (Santyl) 1 applic DAILY TOP Last administered on 12/31/18at 08:33; Admin Dose 1 APPLIC; Start 12/01/18 at 16:30 Acetaminophen (Tylenol Liquid) 650 mg Q6H PRN NGT PAIN LEVEL 1-3 OR FEVER Last administered on 12/28/18 06:03; Admin Dose 650 MG; Start 12/06/18 at 09:00 Midodrine (Proamatine) 5 mg TID@09,13,17 GTB Last administered on 12/31/18 08:31; Admin Dose 5 MG; Start 12/07/18 at 09:00 Epoetin Margarito-epbx (RETACRIT(esrd)) 10,000 unit MoWeFr@1700 SC Last administered on 12/30/18 17:57; Admin Dose 10,000 UNIT; Start 12/11/18 at 17:00 Lorazepam (Ativan) 1 mg Q4H PRN IV AGITATION/ANXIETY Last administered on 12/19/18 05:41; Admin Dose 1 MG; Start 12/15/18 at 11:00 Morphine Sulfate (morphine) 1 mg Q4H PRN IV SEVERE PAIN LEVEL 7-10 Last administered on 12/19/18 03:37; Admin Dose 1 MG; Start 12/15/18 at 11:00 Metoclopramide HCl (Reglan) 5 mg Q8 IV Last administered on 12/31/18 05:33; Admin Dose 5 MG; Start 12/17/18 at 12:00 Miscellaneous Information 1 ea BID XX Last administered on 12/31/18 09:00; Ad min Dose 1 EA; Start 12/21/18 at 15:00 Miscellaneous Information 1 ea BID XX Last administered on 12/31/18 09:00; Admin Dose 1 EA; Start 12/23/18 at 14:00 Methylprednisolone Sodium Succinate (Solu-Medrol) 40 mg DAILY IV Last administered on 12/31/18 08:31; Admin Dose 40 MG; Start 12/28/18 at 09:00; Stop 01/01/19 at 17:59 Norepinephrine 250 ml @ 1.875 mls/ hr TITRATE IV Last administered on 14:42; Admin Dose 22.5 MLS/HR; Start 12/29/18 at 09:30 Diltiazem HCl 125 ml @ 5 mls/hr TITRATE IV ; Start 12/29/18 at 09:30 Meropenem/Sodium Chloride 50 ml @ 100 mls/hr Q12 IVPB Last administered on 12/31/18 09:36; Admin Dose 100 MLS/HR; Start 12/29/18 at 21:00 Clindamycin HCl/ Dextrose 50 ml @ 100 mls/hr Q8 IVPB Last administered on 12/31/18at 05:33; Admin Dose 100 MLS/HR; Start 12/29/18 at 15:00 Amiodarone HCl (Cordarone) 400 mg BID GTB Last administered on 12/31/18 08:32; Admin Dose 400 MG; Start 12/29/18 at 21:00 Levothyroxine Sodium (Synthroid) 75 mcg BEFORE BREAKFAST GTB Last administered on 12/31/18 08:31; Admin Dose 75 MCG; Start 12/30/18 at 07:00 Albuterol (Ventolin Hfa) 4 puff Q4H RESP THERAPY PRN INH WHEEZING; Start 12/30/18 at 08:00 Caspofungin 50 mg/ Sodium Chloride 250 ml @ 250 mls/hr Q24H IVPB Last administered on 12/31/18at 12:37; Admin Dose 250 MLS/HR; Start 12/31/18 at 13:00 Phenylephrine HCl 250 ml @ 75 mls/hr TITRATE IV ; Start 12/30/18 at 17:00 AUTUMN CEJA MD December 31, 2018 13:22
[2019-01-01] VITALS (70 sets, daily range): BP systolic 60–196; BP diastolic 43–110; PULSE 50–138; RESP 16–36
[2019-01-01] MEDS ORDERED: DEXTROSE 5%-0.45% NACL 1,000 ML IV SCH
[2019-01-01] MEDS: CLINDAMYCIN 600 MG/D5W (PMX) 50 ML IVPB SCH ×3 (05:26→21:19)
[2019-01-01] MEDS: METOCLOPRAMIDE 10 MG INJ IV SCH ×3 (05:26→21:19)
--- NOTE | 2019-01-01 05:48 | CONS ---
Assessment/Plan Assessment/Plan Assessment/Plan (Daily) There has been no change in her overall clinical status she is off pressors reshma in the intensive care unit Respiratory failure PEG trached Renal failure on hemodialysis Sepsis syndrome Severe malnutrition Encephalopathy Chemical code Pancytopenia Thrombocytopenia platelet count of 8000 Family still requests chemical code Consultation Date/Type/Reason Admit Date/Time Nov 21, 2018 at 04:53 Initial Consult Date Requesting Provider: RENÉE SKINNER Date/Time of Note DATE: 01/01/19 TIME: 05:46 Exam/Review of Systems Exam Vitals Vital Signs Date Temp Pulse Resp B/P (MAP) Pulse Ox O2 O2 Flow FiO2 Time Delivery Rate 01/01/19 54 18 100 40 05:06 01/01/19 98.1 97/59 (72) 04:00 01/01/19 Mechanical 00:00 Ventilator Intake and Output 12/31/18 12/31/18 01/01/19 1515:00 23:00 07:00 IntakeIntake Total 350 ml 100 ml 150 ml BalanceBalance 350 ml 100 ml 150 ml Constitutional: distress, frail Respiratory: congested cough, crackles/rales Cardiovascular: No regular rate and rhythm, No nl pulses, No bruits, No tran tolic murmur, No edema, No gallop, No irregular rhythm, No jugular venous distention (JVD), No murmurs/extra sounds, No rub, No systolic murmur, No S3, No S4, No other Results Result Diagram: 01/01/19 0400 12/31/18 0400 Results 24hrs Laboratory Tests Test 01/01/19 04:00 01/01/19 04:59 White Blood Count 2.0 #L Red Blood Count 2.67 L Hemoglobin 7.8 L Hematocrit 22.5 L Mean Corpuscular Volume 84.3 Mean Corpuscular Hemoglobin 29.2 Mean Corpuscular Hemoglobin Concent 34.7 Red Cell Distribution Width 14.9 H Platelet Count 8 #*L Mean Platelet Volume Immature Granulocytes % 0.500 H Neutrophils % Lymphocytes % Monocytes % Eosinophils % Basophils % Nucleated Red Blood Cells % 0.0 Immature Granulocytes # 0.010 Neutrophils # Lymphocytes # Monocytes # Eosinophils # Basophils # Nucleated Red Blood Cells # Prothrombin Time Pending Prothrombin Time Ratio 1.5 INR International Normalized Ratio 1.60 Activated Partial Thromboplast Time 39.8 H Mix PTT Normal Plasma Immediate Pending Fibrinogen Pending Sodium Level 140 Potassium Level 4.6 Chloride Level 106 Carbon Dioxide Level 24 Anion Gap 10 Blood Urea Nitrogen 96 H Creatinine 0.90 Est Glomerular Filtrat Rate mL/min > 60 Glucose Level 73 # Calcium Level 8.5 Lab Scanned Report BLOOD TRANSFUSION Medications Medication Current Medications Glucose (Glutose) 15 gm Q15M PRN PO DECREASED GLUCOSE; Start 11/23/18 at 13:30 Glucose (Glutose) 22.5 gm Q15M PRN PO DECREASED GLUCOSE; Start 11/23/18 at 13:30 Dextrose (D50w Syringe) 25 ml Q15M PRN IV DECREASED GLUCOSE Last administered on 12/09/18 13:59; Admin Dose 25 ML; Start 11/23/18 at 13:30 Dextrose (D50w Syringe) 50 ml Q15M PRN IV DECREASED GLUCOSE Last administered on 12/10/18 13:14; Admin Dose 50 ML; Start 11/23/18 at 13:30 Glucagon (Glucagen) 1 mg Q15M PRN IM DECREASED GLUCOSE; Start 11/23/18 at 13:30 Glucose (Glutose) 15 gm Q15M PRN BUCCAL DECREASED GLUCOSE; Start 11/23/18 at 13:30 Alteplase, Recombinant (Cathflo (Activase)) 2 mg MAY REPEAT X1 PRN CATHETER IF CATHETER REMAINS OCCULUDED Last administered on 12/02/18 15:47; Admin Dose 2 MG; Start 11/26/18 at 03:00 Albumin Human 100 ml @ 100 mls/hr DURING DIALYSIS PRN IV HYPOTENSION DURING HD Last administered on 12/28/18 08:00; Admin Dose 100 MLS/HR; Start 11/26/18 at 14:00 Collagenase (Santyl) 1 applic DAILY TOP Last administered on 12/31/18 08:33; Admin Dose 1 APPLIC; Start 12/01/18 at 16:30 Acetaminophen (Tylenol Liquid) 650 mg Q6H PRN NGT PAIN LEVEL 1-3 OR FEVER Last administered on 12/28/18 06:03; Admin Dose 650 MG; Start 12/06/18 at 09:00 Midodrine (Proamatine) 5 mg TID@09,13,17 GTB Last administered on 12/31/18 08:31; Admin Dose 5 MG; Start 12/07/18 at 09:00 Epoetin Margarito-epbx (RETACRIT(esrd)) 10,000 unit MoWeFr@1700 SC Last administered on 12/30/18 17:57; Admin Dose 10,000 UNIT; Start 12/11/18 at 17:00 Lorazepam (Ativan) 1 mg Q4H PRN IV AGITATION/ANXIETY Last administered on 12/19/18 05:41; Admin Dose 1 MG; Start 12/15/18 at 11:00 Morphine Sulfate (morphine) 1 mg Q4H PRN IV SEVERE PAIN LEVEL 7-10 Last administered on 12/19/18 03:37; Admin Dose 1 MG; Start 12/15/18 at 11:00 Metoclopramide HCl (Reglan) 5 mg Q8 IV Last administered on 01/01/19 05:26; Admin Dose 5 MG; Start 12/17/18 at 12:00 Miscellaneous Information 1 ea BID XX Last administered on 12/31/18 09:00; Admin Dose 1 EA; Start 12/21/18 at 15:00 Miscellaneous Information 1 ea BID XX Last administered on 12/31/18 09:00; Admin Dose 1 EA; Start 12/23/18 at 14:00 Methylprednisolone Sodium Succinate (Solu-Medrol) 40 mg DAILY IV Last administered on 12/31/18 08:31; Admin Dose 40 MG; Start 12/28/18 at 09:00; Stop 01/01/19 at 17:59 Norepinephrine 250 ml @ 1.875 mls/ hr TITRATE IV Last administered on 12/30/18 14:42; Admin Dose 22.5 MLS/HR; Start 12/29/18 at 09:30 Diltiazem HCl 125 ml @ 5 mls/hr TITRATE IV ; Start 12/29/18 at 09:30 Meropenem/Sodium Chloride 50 ml @ 100 mls/hr Q12 IVPB Last administered on 12/31/18 20:18; Admin Dose 100 MLS/HR; Start 12/29/18 at 21:00 Clindamycin HCl/ Dextrose 50 ml @ 100 mls/hr Q8 IVPB Last administered on 01/01/19 05:26; Admin Dose 100 MLS/HR; Start 12/29/18 at 15:00 Amiodarone HCl (Cordarone) 400 mg BID GTB Last administered on 12/31/18at 20:19; Admin Dose 400 MG; Start 12/29/18 at 21:00 Levothyroxine Sodium (Synthroid) 75 mcg BEFORE BREAKFAST GTB Last administered on 12/31/18at 08:31; Admin Dose 75 MCG; Start 12/30/18 at 07:00 Albuterol (Ventolin Hfa) 4 puff Q4H RESP THERAPY PRN INH WHEEZING; Start 12/30/18 at 08:00 Caspofungin 50 mg/ Sodium Chloride 250 ml @ 250 mls/hr Q24H IVPB Last administered on 12/31/18at 12:37; Admin Dose 250 MLS/HR; Start 12/31/18 at 13:00 Phenylephrine HCl 250 ml @ 75 mls/hr TITRATE IV ; Start 12/30/18 at 17:00 Dextrose/Sodium Chloride 1,000 ml @ 30 mls/hr Q24H IV Last administered on 12/31/18at 23:54; Admin Dose 30 MLS/HR; Start 01/01/19 at 00:00 JULIEN SALINAS January 01, 2019 05:48
[2019-01-01] MEDS: LEVOTHYROXINE 75 MCG TAB GTB SCH (06:34)
[2019-01-01] MEDS: MIDODRINE 5 MG TAB GTB SCH ×3 (07:58→16:59)
[2019-01-01] MEDS: (Nursing Note) XX SCH ×2 (07:58→07:59)
[2019-01-01] MEDS: BALSAM PERU/CASTOR OIL 60 GM TUBE TOP SCH ×2 (07:58→21:18)
[2019-01-01] MEDS: MEROPENEM 500MG/50 ML (PMX) 50 ML IVPB SCH ×2 (07:58→21:18)
[2019-01-01] MEDS: COLLAGENASE 5 GM (UD JAR) TOP SCH (07:58)
[2019-01-01] MEDS: AMIODARONE 200 MG TAB GTB SCH (07:58)
[2019-01-01] MEDS: METHYLPREDNISOLONE 40 MG INJ IV SCH (07:58)
--- NOTE | 2019-01-01 08:13 | PN ---
DATE: 01/01/2019 SUBJECTIVE: The patient remains critically ill, frail, cachectic. No other events noted. OBJECTIVE: VITAL SIGNS: Blood pressure is 103/63, respirations 18, pulse 52, temperature 98.1. HEENT: Head is normocephalic. NECK: Supple. HEART: Regular rate. LUNGS: Show diminished breath sounds at the base. ABDOMEN: Soft, nontender to palpation. EXTREMITIES: Negative for clubbing, cyanosis. Diffuse anasarca. DERMATOLOGIC: No rashes. MUSCULOSKELETAL: No joint effusion. NEUROLOGIC: No change in exam. MEDICATIONS: Reviewed. LABORATORY DATA: Reviewed. ASSESSMENT AND PLAN: 1. End-stage renal disease. Plan is for hemodialysis today. 2. Anemia. The patient is status post blood transfusion, monitor hemoglobin and hematocrit levels. Continue Epogen. 3. Volume overload, diffuse anasarca. Continue ultrafiltration with dialysis. 4. Hypokalemia. Continue to monitor. 5. Ventilator-dependent respiratory failure. Vent settings have been reviewed. Continue to monitor . 6. Septic shock. The patient is currently off pressors. Continue medical management. Continue ant ibiotic therapy. 7. Thrombocytopenia. Continue to monitor. 8. Hypothyroidism. Continue Synthroid. 9. Dysphagia. Continue to monitor. 10. Arrhythmia. The patient is currently on amiodarone, continue. 11. Lower extremity wounds. Continue wound care. 12. Status post cardiopulmonary arrest. Dictated By: SARIKA JOINER DO NR/NTS Conf#: [id number] DID#: [id number] CC: RENÉE SKINNER; LORRAINE JOHNSON MD; MANDY BATES MD;*End*
--- NOTE | 2019-01-01 08:56 | CONS ---
Consult Date/Type/Reason Admit Date/Time Nov 21, 2018 at 04:53 Initial Consult Date Type of Consult Pulmonary Requesting Provider: RENÉE SKINNER Date/Time of Note DATE: 01/01/19 TIME: 08:54 Subjective Continues mechanical ventilation remains awake alert. Currently not requiring vasopressors. Objective Vital Signs Date Temp Pulse Resp B/P (MAP) Pulse Ox O2 O2 Flow FiO2 Time Delivery Rate 01/01/19 53 08:00 01/01/19 18 103/63 Mechanical 06:00 (76) Ventilator 01/01/19 100 40 05:06 01/01/19 98.1 04:00 Intake and Output 12/31/18 12/31/18 01/01/19 1515:00 23:00 07:00 IntakeIntake Total 350 ml 100 ml 260 ml BalanceBalance 350 ml 100 ml 260 ml Exam GENERAL: Thin cachectic lady continues mechanical ventilation via tracheostomy VITAL SIGNS: per chart NECK: Supple. No JVD or lymphadenopathy. CARDIAC EXAM: S1, S2. No added sounds or murmurs. CHEST: Diminished air entry bilaterally ABDOMEN: Soft, nontender. No guarding or rebound. EXTREMITIES: No cyanosis, clubbing or edema. NEUROLOGIC: Generalized weakness. Vent Setting Ventilator Support Mode: AC Fraction of Inspired Oxygen pe: 40 Positive End Expiratory Pressu: 5.0 Results/Medications Result Diagram: 01/01/19 0400 01/01/19 0400 Results 24 hrs Laboratory Tests Test 01/01/19 04:00 01/01/19 04:59 White Blood Count 2.0 #L Red Blood Count 2.67 L Hemoglobin 7.8 L Hematocrit 22.5 L Mean Corpuscular Volume 84.3 Mean Corpuscular Hemoglobin 29.2 Mean Corpuscular Hemoglobin Concent 34.7 Red Cell Distribution Width 14.9 H Platelet Count 8 #*L Mean Platelet Volume Immature Granulocytes % 0.500 H Neutrophils % Segmented Neutrophils % (Manual) 68 Band Neutrophils % (Manual) 8 H Lymphocytes % Lymphocytes % (Manual) 24 Monocytes % Eosinophils % Basophils % Nucleated Red Blood Cells % 0.0 Immature Granulocytes # 0.010 Neutrophils # Neutrophils # (Manual) 1.4 L Band Neutrophils # 0.1 Lymphocytes (Manual) 0.4 L Lymphocytes # Monocytes # Eosinophils # Basophils # Nucleated Red Blood Cells # Platelet Estimate SIG DECREASED Giant Platelets 39 H Poikilocytosis 3+ Microcytosis 1+ Spherocytes 1+ Prothrombin Time 19.1 #H Prothrombin Time Ratio 1.5 INR International Normalized Ratio 1.60 Activated Partial Thromboplast Time 39.8 H Mix PTT Normal Plasma Immediate 40.0 Mix PTT Normal Plasma 1 Hour Fibrinogen 383.0 # Sodium Level 140 Potassium Level 4.6 Chloride Level 106 Carbon Dioxide Level 24 Anion Gap 10 Blood Urea Nitrogen 96 H Creatinine 0.90 Est Glomerular Filtrat Rate mL/min > 60 Glucose Level 73 # Calcium Level 8.5 Lab Scanned Report BLOOD TRANSFUSION Medications Current Medications Glucose (Glutose) 15 gm Q15M PRN PO DECREASED GLUCOSE; Start 11/23/18 at 13:30 Glucose (Glutose) 22.5 gm Q15M PRN PO DECREASED GLUCOSE; Start 11/23/18 at 13:30 Dextrose (D50w Syringe) 25 ml Q15M PRN IV DECREASED GLUCOSE Last administered on 12/09/18 13:59; Admin Dose 25 ML; Start 11/23/18 at 13:30 Dextrose (D50w Syringe) 50 ml Q15M PRN IV DECREASED GLUCOSE Last administered on 12/10/18 13:14; Admin Dose 50 ML; Start 11/23/18 at 13:30 Glucagon (Glucagen) 1 mg Q15M PRN IM DECREASED GLUCOSE; Start 11/23/18 at 13:30 Glucose (Glutose) 15 gm Q15M PRN BUCCAL DECREASED GLUCOSE; Start 11/23/18 at 13:30 Alteplase, Recombinant (Cathflo (Activase)) 2 mg MAY REPEAT X1 PRN CATHETER IF CATHETER REMAINS OCCULUDED Last administered on 12/02/18at 15:47; Admin Dose 2 MG; Start 11/26/18 at 03:00 Albumin Human 100 ml @ 100 mls/hr DURING DIALYSIS PRN IV HYPOTENSION DURING HD Last administered on 12/28/18 08:00; Admin Dose 100 MLS/HR; Start 11/26/18 at 14:00 Collagenase (Santyl) 1 applic DAILY TOP Last administered on 01/01/19 07:58; Admin Dose 1 APPLIC; Start 12/01/18 at 16:30 Acetaminophen (Tylenol Liquid) 650 mg Q6H PRN NGT PAIN LEVEL 1-3 OR FEVER Last administered on 12/28/18 06:03; Admin Dose 650 MG; Start 12/06/18 at 09:00 Midodrine (Proamatine) 5 mg TID@,13,17 GTB Last administered on 01/01/19 07:58; Admin Dose 5 MG; Start 12/07/18 at 09:00 Epoetin Margarito-epbx (RETACRIT(esrd)) 10,000 unit MoWeFr@1700 SC Last administered on 12/30/18 17:57; Admin Dose 10,000 UNIT; Start 12/11/18 at 17:00 Lorazepam (Ativan) 1 mg Q4H PRN IV AGITATION/ANXIETY Last administered on 12/19/18 05:41; Admin Dose 1 MG; Start 12/15/18 at 11:00 Morphine Sulfate (morphine) 1 mg Q4H PRN IV SEVERE PAIN LEVEL 7-10 Last adm inistered on 12/19/18 03:37; Admin Dose 1 MG; Start 12/15/18 at 11:00 Metoclopramide HCl (Reglan) 5 mg Q8 IV Last administered on 01/01/19 05:26; Admin Dose 5 MG; Start 12/17/18 at 12:00 Miscellaneous Information 1 ea BID XX Last administered on 01/01/19 07:58; Admin Dose 1 EA; Start 12/21/18 at 15:00 Miscellaneous Information 1 ea BID XX Last administered on 01/01/19 07:59; Admin Dose 1 EA; Start 12/23/18 at 14:00 Methylprednisolone Sodium Succinate (Solu-Medrol) 40 mg DAILY IV Last admin istered on 01/01/19 07:58; Admin Dose 40 MG; Start 12/28/18 at 09:00; Stop 01/01/19 at 17:59 Norepinephrine 250 ml @ 1.875 mls/ hr TITRATE IV Last administered on 12/30/18 14:42; Admin Dose 22.5 MLS/HR; Start 12/29/18 at 09:30 Diltiazem HCl 125 ml @ 5 mls/hr TITRATE IV ; Start 12/29/18 at 09:30 Meropenem/Sodium Chloride 50 ml @ 100 mls/hr Q12 IVPB Last administered on 01/01/19 07:58; Admin Dose 100 MLS/HR; Start 12/29/18 at 21:00 Clindamycin HCl/ Dextrose 50 ml @ 100 mls/hr Q8 IVPB Last administered on 01/01/19at 05:26; Admin Dose 100 MLS/HR; Start 12/29/18 at 15:00 Amiodarone HCl (Cordarone) 400 mg BID GTB Last administered on 01/01/19at 07:58; Admin Dose 400 MG; Start 12/29/18 at 21:00 Levothyroxine Sodium (Synthroid) 75 mcg BEFORE BREAKFAST GTB Last administered on 01/01/19at 06:34; Admin Dose 75 MCG; Start 12/30/18 at 07:00 Albuterol (Ventolin Hfa) 4 puff Q4H RESP THERAPY PRN INH WHEEZING; Start 12/30/18 at 08:00 Caspofungin 50 mg/ Sodium Chloride 250 ml @ 250 mls/hr Q24H IVPB Last administered on 12/31/18at 12:37; Admin Dose 250 MLS/HR; Start 12/31/18 at 13:00 Phenylephrine HCl 250 ml @ 75 mls/hr TITRATE IV ; Start 12/30/18 at 17:00 Dextrose/Sodium Chloride 1,000 ml @ 30 mls/hr Q24H IV Last administered on 12/31/18at 23:54; Admin Dose 30 MLS/HR; Start 01/01/19 at 00:00 Eye Lubricant (Akwa Oint) 1 applic Q6 BOTH EYES ; Start 01/01/19 at 12:00 Eye Lubricant (Artificial Tears Oph) 2 drop Q6 BOTH EYES ; Start 01/01/19 at 12:00 Assessment/Plan Hospital Course (Demo Recall) IMP: 1. Ventilator-dependent respiratory failure, status post tracheostomy. 2. Gram-negative sepsis. 3. End-stage renal disease on hemodialysis. 4. Cardiomyopathy. 5. Thrombocytopenia. 6. Anemia. 7. Status post septic shock. 8. Significant leakage from G-tube site RECS: 1. Continue vent support--hold off on weaning for now. 2. Continue antibiotics as per ID 3. Hemodialysis per nephrology 4. Consider transfusion packed red blood cells 5. GI evaluation for G-tube, may require TPN Critical care time 40 minutes. NINA MORRIS MD, [facility] January 01, 2019 08:56
[2019-01-01] MEDS ORDERED: ACCU-CHEK XX SCH (09:00)
--- NOTE | 2019-01-01 10:09 | PN ---
Date/Time of Note Date/Time of Note DATE: 01/01/19 TIME: 10:03 Assessment/Plan VTE Prophylaxis Risk score (from Ns)>0 risk: 10 SCD applied (from Ns): Yes Pharmacological prophylaxis: NA/contraindicated Pharm contraindication: bleeding, thrombocytopenia Lines/Catheters IV [facility] Mid Line Urinary Cath still in place: No Assessment/Plan Hospital Course S: Patient seen by hematology oncology team yesterday and received platelet transfusion yesterday. No signs of any bleeding. Off of pressor support since yesterday. Heart rate has been bradycardia. Off of G-tube feeds now secondary to G-tube leak occurring since yesterday. Seen by pulmonary team this morning. O: VS- see below PE: On MV via trach, minimally interactive Chronically ill appearing, cachectic Lungs clear Still Distended belly, firm masses, G tube in place Mild peripheral edema present LUE wound wrapped A/P: 58 yo female with ESRD, questionable cirrhosis, DMII presents with hypoglycemia, leg infection. Suffered cardiac and respiratory arrest, recovered with good neurologic status however was unable to be weaned from mechanical ventilation and is now s/p trach and PEG. # Chronic respiratory failure: Treated for pneumonia earlier this admission as well as respiratory failure, status post trach placement earlier this admission as well. -Continue MV per pulm via trach, follow pulmonary recommendations, current antifungal and antibacterial medications -Continue to wean steroids off over the next few days -For the hypotension, continue pressor support and wean off as tolerated if possible -For leaking G-tube, will obtain GI consult # Left lower extremity wound: Per ID team there is also concern of a possible infected graft. Blood cultures from last month as well as wound culture from last month positive for Klebsiella, patient presently on ertapenem as well as fluconazole. -Continue antibiotics indefinitely per ID # ESRD -For now continue HD per nephrology # Hypothyroidism: - Continue Synthroid # Anemia of CKD: Also thrombocytopenia, prior diagnosis of this secondary to HIT. 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 Per heme-onc this is likely a consumptive process occurring but resolution of her other problems would be the solution. -Monitor CBC for now, follow-up further hematology oncology recommendations # Prophylaxis: SCDs Dispo: Again still in intensive care unit the last 4 days. As mentioned above bioethics meeting held 3 days ago, family was present during the meeting as we ll. Family agreed to chemical code only after bioethics meeting. Family is aware patient has very poor prognosis at this point in time. Critical care time spent on patient care today equals 40 minutes. Result Diagram: 01/01/19 0400 01/01/19 0400 Results 24hrs Laboratory Tests Test 01/01/19 04:00 01/01/19 04:59 01/01/19 09:07 White Blood Count 2.0 #L Red Blood Count 2.67 L Hemoglobin 7.8 L Hematocrit 22.5 L Mean Corpuscular Volume 84.3 Mean Corpuscular Hemoglobin 29.2 Mean Corpuscular 34.7 Hemoglobin Concent Red Cell Distribution Width 14.9 H Platelet Count 8 #*L Mean Platelet Volume Immature Granulocytes % 0.500 H Neutrophils % Segmented Neutrophils 68 % (Manual) Band Neutrophils % (Manual) 8 H Lymphocytes % Lymphocytes % (Manual) 24 Monocytes % Eosinophils % Basophils % Nucleated Red Blood Cells % 0.0 Immature Granulocytes # 0.010 Neutrophils # Neutrophils # (Manual) 1.4 L Band Neutrophils # 0.1 Lymphocytes (Manual) 0.4 L Lymphocytes # Monocytes # Eosinophils # Basophils # Nucleated Red Blood Cells # Platelet Estimate SIG DECREASED Giant Platelets 39 H Poikilocytosis 3+ Microcytosis 1+ Spherocytes 1+ Prothrombin Time 19.1 #H Prothrombin Time Ratio 1.5 INR International 1.60 Normalized Ratio Activated 39.8 H Partial Thromboplast Time Mix PTT Normal 40.0 Plasma Immediate Mix PTT Normal Plasma 1 Hour Fibrinogen 383.0 # Sodium Level 140 Potassium Level 4.6 Chloride Level 106 Carbon Dioxide Level 24 Anion Gap 10 Blood Urea Nitrogen 96 H Creatinine 0.90 Est Glomerular Filtrat > 60 Rate mL/min Glucose Level 73 # Calcium Level 8.5 Lab Scanned Report BLOOD TRANSFUSION Bedside Glucose 21 *L Exam/Review of Systems Exam Vitals Vital Signs Date Temp Pulse Resp B/P (MAP) Pulse Ox O2 O2 Flow FiO2 Time Delivery Rate 01/01/19 40 08:00 01/01/19 53 08:00 01/01/19 18 103/63 Mechanical 06:00 (76) Ventilator 01/01/19 100 05:06 01/01/19 98.1 04:00 Intake and Output 12/31/18 12/31/18 01/01/19 1515:00 23:00 07:00 IntakeIntake Total 350 ml 100 ml 260 ml BalanceBalance 350 ml 100 ml 260 ml Results Results 24hrs Laboratory Tests Test 01/01/19 04:00 01/01/19 04:59 01/01/19 09:07 White Blood Count 2.0 #L Red Blood Count 2.67 L Hemoglobin 7.8 L Hematocrit 22.5 L Mean Corpuscular Volume 84.3 Mean Corpuscular Hemoglobin 29.2 Mean Corpuscular 34.7 Hemoglobin Concent Red Cell Distribution Width 14.9 H Platelet Count 8 #*L Mean Platelet Volume Immature Granulocytes % 0.500 H Neutrophils % Segmented Neutrophils 68 % (Manual) Band Neutrophils % (Manual) 8 H Lymphocytes % Lymphocytes % (Manual) 24 Monocytes % Eosinophils % Basophils % Nucleated Red Blood Cells % 0.0 Immature Granulocytes # 0.010 Neutrophils # Neutrophils # (Manual) 1.4 L Band Neutrophils # 0.1 Lymphocytes (Manual) 0.4 L Lymphocytes # Monocytes # Eosinophils # Basophils # Nucleated Red Blood Cells # Platelet Estimate SIG DECREASED Giant Platelets 39 H Poikilocytosis 3+ Microcytosis 1+ Spherocytes 1+ Prothrombin Time 19.1 #H Prothrombin Time Ratio 1.5 INR International 1.60 Normalized Ratio Activated 39.8 H Partial Thromboplast Time Mix PTT Normal 40.0 Plasma Immediate Mix PTT Normal Plasma 1 Hour Fibrinogen 383.0 # Sodium Level 140 Potassium Level 4.6 Chloride Level 106 Carbon Dioxide Level 24 Anion Gap 10 Blood Urea Nitrogen 96 H Creatinine 0.90 Est Glomerular Filtrat > 60 Rate mL/min Glucose Level 73 # Calcium Level 8.5 Lab Scanned Report BLOOD TRANSFUSION Bedside Glucose 21 *L Medications Medication Current Medications Glucose (Glutose) 15 gm Q15M PRN PO DECREASED GLUCOSE; Start 11/23/18 at 13:30 Glucose (Glutose) 22.5 gm Q15M PRN PO DECREASED GLUCOSE; Start 11/23/18 at 13:30 Dextrose (D50w Syringe) 25 ml Q15M PRN IV DECREASED GLUCOSE Last administered on 12/09/18at 13:59; Admin Dose 25 ML; Start 11/23/18 at 13:30 Dextrose (D50w Syringe) 50 ml Q15M PRN IV DECREASED GLUCOSE Last administered on 12/10/18 13:14; Admin Dose 50 ML; Start 11/23/18 at 13:30 Glucagon (Glucagen) 1 mg Q15M PRN IM DECREASED GLUCOSE; Start 11/23/18 at 13:30 Glucose (Glutose) 15 gm Q15M PRN BUCCAL DECREASED GLUCOSE; Start 11/23/18 at 13:30 Albumin Human 100 ml @ 100 mls/hr DURING DIALYSIS PRN IV HYPOTENSION DURING HD Last administered on 12/28/18 08:00; Admin Dose 100 MLS/HR; Start 11/26/18 at 14:00 Collagenase (Santyl) 1 applic DAILY TOP Last administered on 01/01/19 07:58; Admin Dose 1 APPLIC; Start 12/01/18 at 16:30 Acetaminophen (Tylenol Liquid) 650 mg Q6H PRN NGT PAIN LEVEL 1-3 OR FEVER Last administered on 12/28/18 06:03; Admin Dose 650 MG; Start 12/06/18 at 09:00 Midodrine (Proamatine) 5 mg TID@,,17 GTB Last administered on 01/01/19 07:58; Admin Dose 5 MG; Start 12/07/18 at 09:00 Epoetin Margarito-epbx (RETACRIT(esrd)) 10,000 unit MoWeFr@1700 SC Last administered on 12/30/18 17:57; Admin Dose 10,000 UNIT; Start 12/11/18 at 17:00 Lorazepam (Ativan) 1 mg Q4H PRN IV AGITATION/ANXIETY Last administered on 12/19/18 05:41; Admin Dose 1 MG; Start 12/15/18 at 11:00 Morphine Sulfate (morphine) 1 mg Q4H PRN IV SEVERE PAIN LEVEL 7-10 Last administered on 12/19/18 03:37; Admin Dose 1 MG; Start 12/15/18 at 11:00 Metoclopramide HCl (Reglan) 5 mg Q8 IV Last administered on 01/01/19 05:26; Admin Dose 5 MG; Start 12/17/18 at 12:00 Miscellaneous Information 1 ea BID XX Last administered on 01/01/19 07:58; Admin Dose 1 EA; Start 12/21/18 at 15:00 Miscellaneous Information 1 ea BID XX Last administered on 01/01/19 07:59; Admin Dose 1 EA; Start 12/23/18 at 14:00 Methylprednisolone Sodium Succinate (Solu-Medrol) 40 mg DAILY IV Last administered on 01/01/19 07:58; Admin Dose 40 MG; Start 12/28/18 at 09:00; Sto p 01/01/19 at 17:59 Norepinephrine 250 ml @ 1.875 mls/ hr TITRATE IV Last administered on 12/30/18 14:42; Admin Dose 22.5 MLS/HR; Start 12/29/18 at 09:30 Diltiazem HCl 125 ml @ 5 mls/hr TITRATE IV ; Start 12/29/18 at 09:30 Meropenem/Sodium Chloride 50 ml @ 100 mls/hr Q12 IVPB Last administered on 01/01/19 07:58; Admin Dose 100 MLS/HR; Start 12/29/18 at 21:00 Clindamycin HCl/ Dextrose 50 ml @ 100 mls/hr Q8 IVPB Last administered on 01/01/19 05:26; Admin Dose 100 MLS/HR; Start 12/29/18 at 15:00 Amiodarone HCl (Cordarone) 400 mg BID GTB Last administered on 01/01/19 07:58; Admin Dose 400 MG; Start 12/29/18 at 21:00 Levothyroxine Sodium (Synthroid) 75 mcg BEFORE BREAKFAST GTB Last administered on 01/01/19 06:34; Admin Dose 75 MCG; Start 12/30/18 at 07:00 Albuterol (Ventolin Hfa) 4 puff Q4H RESP THERAPY PRN INH WHEEZING; Start 12/30/18 at 08:00 Caspofungin 50 mg/ Sodium Chloride 250 ml @ 250 mls/hr Q24H IVPB Last administered on 12/31/18 12:37; Admin Dose 250 MLS/HR; Start 12/31/18 at 13:00 Phenylephrine HCl 250 ml @ 75 mls/hr TITRATE IV ; Start 12/30/18 at 17:00 Dextrose/Sodium Chloride 1,000 ml @ 30 mls/hr Q24H IV Last administered on 12/31/18at 23:54; Admin Dose 30 MLS/HR; Start 01/01/19 at 00:00 Eye Lubricant (Akwa Oint) 1 applic Q6 BOTH EYES ; Start 01/01/19 at 12:00 Eye Lubricant (Artificial Tears Oph) 2 drop Q6 BOTH EYES ; Start 01/01/19 at 12:00 Diagnostic Test (Pha) (Accu-Chek) 1 ea Q4 XX Last administered on 01/01/19at 09:09; Admin Dose 1 EA; Start 01/01/19 at 09:00 RENÉE SKINNER January 01, 2019 10:09
[2019-01-01] MEDS: NORepinephrine 8MG/250 ML (PMX 250 ML IV SCH ×2 (10:30→17:54)
[2019-01-01] MEDS: DEXTROSE 50% 50 ML SYRINGE IV PRN (11:09)
[2019-01-01] MEDS ORDERED: IMMUNE GLOBULIN (HUMAN) 6 GM INJ IV STA (11:29)
--- NOTE | 2019-01-01 11:31 | CONS ---
Assessment/Plan Assessment/Plan Assessment/Plan (Daily) Assessment: Leaking G-tube -possibly infected Patient is in contact isolation for Klebsiella in the blood Severe caloric deficiency Chronic respiratory failure status post tracheostomy Liver cirrhosis Chronic kidney failure -dialysis Severe thrombocytopenia Pancytopenia Plan: Culture the G-tube wound Keep the tube clamped Monitor the need for G-tube replacement if thrombocytopenia is corrected Continue topical care around the stoma Monitor labs Patient seen in collaboration with Consultation Date/Type/Reason Admit Date/Time Nov 21, 2018 at 04:53 Date of Consultation: January 01, 2019 Type of Consult GI Reason for Consultation Malfunctioning G tube Date/Time of Note DATE: 01/01/19 TIME: 11:06 Hx of Present Illness This is a 58-year-old female with a history of liver cirrhosis and severe malnutrition status post tracheostomy and G-tube who is currently in the ICU and was noted to have leaking G-tube. Bedside nurse reports leakage with tube feeding started 2 days ago. Tube feeding has been held since yesterday. The site is draining mucoid secretion and appears excoriated. Currently there is no evidence of vomiting, hematemesis, hematochezia or or abdominal pain. The plan is to culture the site and continue antibiotics with topical care. Continue holding tube feeding and reevaluate the patient towards the end of the weekend for possible PEG replacement on Friday. Patient is currently chemical code only. May consider TPN for alternative method of feeding to meet nutritional needs meanwhile. Patient appears cachectic with multiple skin wounds, currently on pressors. Receiving dialysis at this time. Patient has severe thr ombocytopenia which will need to be corrected prior to procedure if indicated. Continue observation. Gastrointestinal: no complaints (See HPI) Past Medical History Medical History: hypertension, hypothyroid, renal disease, other (See HPI) Home Meds Reported Medications Folic Acid* (Folic Acid*) 1 Mg Tablet, 1 MG PO DAILY, TAB 08/10/18 Amiodarone Hcl* (Amiodarone Hcl*) 200 Mg Tablet, 200 MG PO BID, #60 TAB 08/10/18 Pantoprazole* (Protonix*) 40 Mg Tablet., 40 MG PO DAILY, TAB 08/10/18 Multivit/Ca Carb/B Cmplx/Fa* (Iram-Xiomara*) 1 Tab Tab, 1 TAB PO DAILY, TAB 08/10/18 Levothyroxine Sodium* (Levoxyl*) 75 Mcg Tablet, 75 MCG PO BEFORE BREAKFAST, #30 TAB 08/10/18 Medications Current Medications Glucose (Glutose) 15 gm Q15M PRN PO DECREASED GLUCOSE; Start 11/23/18 at 13:30 Glucose (Glutose) 22.5 gm Q15M PRN PO DECREASED GLUCOSE; Start 11/23/18 at 13:30 Dextrose (D50w Syringe) 25 ml Q15M PRN IV DECREASED GLUCOSE Last administered on 12/09/18 13:59; Admin Dose 25 ML; Start 11/23/18 at 13:30 Dextrose (D50w Syringe) 50 ml Q15M PRN IV DECREASED GLUCOSE Last administered on 12/10/18 13:14; Admin Dose 50 ML; Start 11/23/18 at 13:30 Glucagon (Glucagen) 1 mg Q15M PRN IM DECREASED GLUCOSE; Start 11/23/18 at 13:30 Glucose (Glutose) 15 gm Q15M PRN BUCCAL DECREASED GLUCOSE; Start 11/23/18 at 13:30 Albumin Human 100 ml @ 100 mls/hr DURING DIALYSIS PRN IV HYPOTENSION DURING HD Last administered on 12/28/18 08:00; Admin Dose 100 MLS/HR; Start 11/26/18 at 14:00 Collagenase (Santyl) 1 applic DAILY TOP Last administered on 01/01/19 07:58; Admin Dose 1 APPLIC; Start 12/01/18 at 16:30 Acetaminophen (Tylenol Liquid) 650 mg Q6H PRN NGT PAIN LEVEL 1-3 OR FEVER Last administered on 12/28/18 06:03; Admin Dose 650 MG; Start 12/06/18 at 09:00 Midodrine (Proamatine) 5 mg TID@09,13,17 GTB Last administered on 01/01/19 07:58; Admin Dose 5 MG; Start 12/07/18 at 09:00 Epoetin Margarito-epbx (RETACRIT(esrd)) 10,000 unit MoWeFr@1700 SC Last administered on 12/30/18 17:57; Admin Dose 10,000 UNIT; Start 12/11/18 at 17:00 Lorazepam (Ativan) 1 mg Q4H PRN IV AGITATION/ANXIETY Last administered on 12/19/18 05:41; Admin Dose 1 MG; Start 12/15/18 at 11:00 Morphine Sulfate (morphine) 1 mg Q4H PRN IV SEVERE PAIN LEVEL 7-10 Last administered on 12/19/18 03:37; Admin Dose 1 MG; Start 12/15/18 at 11:00 Metoclopramide HCl (Reglan) 5 mg Q8 IV Last administered on 01/01/19 05:26; Admin Dose 5 MG; Start 12/17/18 at 12:00 Miscellaneous Information 1 ea BID XX Last administered on 01/01/19 07:58; Admin Dose 1 EA; Start 12/21/18 at 15:00 Miscellaneous Information 1 ea BID XX Last administered on 01/01/19 07:59; Admin Dose 1 EA; Start 12/23/18 at 14:00 Methylprednisolone Sodium Succinate (Solu-Medrol) 40 mg DAILY IV Last administered on 01/01/19 07:58; Admin Dose 40 MG; Start 12/28/18 at 09:00; Stop 01/01/19 at 17:59 Norepinephrine 250 ml @ 1.875 mls/ hr TITRATE IV Last administered on 12/30/18 14:42; Admin Dose 22.5 MLS/HR; Start 12/29/18 at 09:30 Diltiazem HCl 125 ml @ 5 mls/hr TITRATE IV ; Start 12/29/18 at 09:30 Meropenem/Sodium Chloride 50 ml @ 100 mls/hr Q12 IVPB Last administered on 01/01/19 07:58; Admin Dose 100 MLS/HR; Start 12/29/18 at 21:00 Clindamycin HCl/ Dextrose 50 ml @ 100 mls/hr Q8 IVPB Last administered on 01/01/19 05:26; Admin Dose 100 MLS/HR; Start 12/29/18 at 15:00 Amiodarone HCl (Cordarone) 400 mg BID GTB Last administered on 01/01/19 07:58; Admin Dose 400 MG; Start 12/29/18 at 21:00 Levothyroxine Sodium (Synthroid) 75 mcg BEFORE BREAKFAST GTB Last administered on 01/01/19 06:34; Admin Dose 75 MCG; Start 12/30/18 at 07:00 Albuterol (Ventolin Hfa) 4 puff Q4H RESP THERAPY PRN INH WHEEZING; Start 12/30/18 at 08:00 Caspofungin 50 mg/ Sodium Chloride 250 ml @ 250 mls/hr Q24H IVPB Last administered on 12/31/18at 12:37; Admin Dose 250 MLS/HR; Start 12/31/18 at 13:00 Phenylephrine HCl 250 ml @ 75 mls/hr TITRATE IV ; Start 12/30/18 at 17:00 Dextrose/Sodium Chloride 1,000 ml @ 30 mls/hr Q24H IV Last administered on 12/31/18at 23:54; Admin Dose 30 MLS/HR; Start 01/01/19 at 00:00 Eye Lubricant (Akwa Oint) 1 applic Q6 BOTH EYES ; Start 01/01/19 at 12:00 Eye Lubricant (Artificial Tears Oph) 2 drop Q6 BOTH EYES ; Start 01/01/19 at 1 2:00 Diagnostic Test (Pha) (Accu-Chek) 1 ea Q4 XX Last administered on 01/01/19at 09:09; Admin Dose 1 EA; Start 01/01/19 at 09:00 Allergies: Coded Allergies: Penicillins (Verified Allergy, Unknown, 12/16/18) tazobactam (Verified Allergy, Unknown, 12/16/18) vancomycin (Verified Allergy, Unknown, 12/16/18) Past Surgical History Past Surgical Hx: other Social History Alcohol Use: none Smoking Status: Never smoker Drug Use: none Exam/Review of Systems Exam Vitals Vital Signs Date Temp Pulse Resp B/P (MAP) Pulse Ox O2 O2 Flow FiO2 Time Delivery Rate 01/01/19 51 10:24 01/01/19 18 112/68 100 Mechanical 10:16 (83) Ventilator 01/01/19 40 08:00 01/01/19 98.1 04:00 Intake and Output 12/31/18 12/31/18 01/01/19 1515:00 23:00 07:00 IntakeIntake Total 350 ml 100 ml 290 ml BalanceBalance 350 ml 100 ml 290 ml Exam PHYSICAL EXAMINATION: GENERAL: Cachectic, malnourished, trached, in no acute distress SKIN: Multiple skin lesions, no stigmata chronic liver disease LYMPHATIC: No palpable lymphadenopathy. HEAD: Normocephalic, atraumatic, no tenderness. EYES: Pupils equal reactive to light and accommodation, full extraocular movements, sclera clear, non-icteric, no discharge. EARS/NOSE AND THROAT: Ears normal, nose normal, oropharynx normal, oral membranes well hydrated without lesions. NECK: Supple, no masses, thyroid normal, JVP within normal limits, carotids normal without bruits. Tracheostomy in place CHEST: Inspection within normal limits. CARDIOVASCULAR: Heart: Regular rate and rhythm, no murmurs, gallops or rubs. Peripheral pulses present within normal limits, no cyanosis, clubbing or edemas. No pulsatile abdominal mass RESPIRATORY: Lungs clear to auscultation and percussion, no wheezing, no rubs GASTROINTESTINAL AND LIVER: Abdomen: Soft, G-tube in place with the wound drainage around stoma , peritoneal dialysis catheter in left upper quadrant, non tenderness, non-distended, no hernias, no masses, no organomegaly, mild ascites, no guarding, no rebound tenderness, normoactive bowel sounds. Rectal: Deferred. GENITOURINARY: Female genitalia within normal limits. EXTREMITIES: No cyanosis, clubbing or edema. Results Result Diagram: 01/01/19 0400 01/01/19 1006 Results 24hrs Laboratory Tests Test 01/01/19 04:00 01/01/19 04:59 01/01/19 09:07 01/01/19 10:06 White Blood 2.0 #L Count Red Blood Count 2.67 L Hemoglobin 7.8 L Hematocrit 22.5 L Mean Corpuscular 84.3 Volume Mean Corpuscular 29.2 Hemoglobin Mean Corpuscular 34.7 Hemoglobin Anh nt Red Cell 14.9 H Distribution Width Platelet Count 8 #*L Mean Platelet Volume Immature 0.500 H Granulocytes % Neutrophils % Segmented 68 Neutrophils % (Manual) Band Neutrophils 8 H % (Manual) Lymphocytes % Lymphocytes % 24 (Manual) Monocytes % Eosinophils % Basophils % Nucleated Red 0.0 Blood Cells % Immature 0.010 Granulocytes # Neutrophils # Neutrophils # 1.4 L (Manual) Band Neutrophils 0.1 # Lymphocytes 0.4 L (Manual) Lymphocytes # Monocytes # Eosinophils # Basophils # Nucleated Red Blood Cells # Platelet SIG DECREASED Estimate Giant Platelets 39 H Poikilocytosis 3+ Microcytosis 1+ Spherocytes 1+ Prothrombin Time 19.1 #H Prothrombin Time 1.5 Ratio INR 1.60 International Normalized Ratio Activated 39.8 H Partial Thrombop last Time Mix PTT Normal 40.0 Plasma Immediate Mix PTT Normal Plasma 1 Hour Fibrinogen 383.0 # Sodium Level 140 Potassium Level 4.6 Chloride Level 106 Carbon Dioxide 24 Level Anion Gap 10 Blood Urea 96 H Nitrogen Creatinine 0.90 Est Glomerular > 60 Filtrat Rate mL/min Glucose Level 73 # 54 #L Calcium Level 8.5 Lab Scanned BLOOD TRANSFUSI Report ON Bedside Glucose 21 *L Medications Medication Current Medications Glucose (Glutose) 15 gm Q15M PRN PO DECREASED GLUCOSE; Start 11/23/18 at 13:30 Glucose (Glutose) 22.5 gm Q15M PRN PO DECREASED GLUCOSE; Start 11/23/18 at 13:30 Dextrose (D50w Syringe) 25 ml Q15M PRN IV DECREASED GLUCOSE Last administered on 12/09/18 13:59; Admin Dose 25 ML; Start 11/23/18 at 13:30 Dextrose (D50w Syringe) 50 ml Q15M PRN IV DECREASED GLUCOSE Last administered on 12/10/18 13:14; Admin Dose 50 ML; Start 11/23/18 at 13:30 Glucagon (Glucagen) 1 mg Q15M PRN IM DECREASED GLUCOSE; Start 11/23/18 at 13:30 Glucose (Glutose) 15 gm Q15M PRN BUCCAL DECREASED GLUCOSE; Start 11/23/18 at 13:30 Albumin Human 100 ml @ 100 mls/hr DURING DIALYSIS PRN IV HYPOTENSION DURING HD Last administered on 12/28/18 08:00; Admin Dose 100 MLS/HR; Start 11/26/18 at 14:00 Collagenase (Santyl) 1 applic DAILY TOP Last administered on 01/01/19 07:58; Admin Dose 1 APPLIC; Start 12/01/18 at 16:30 Acetaminophen (Tylenol Liquid) 650 mg Q6H PRN NGT PAIN LEVEL 1-3 OR FEVER Last administered on 12/28/18 06:03; Admin Dose 650 MG; Start 12/06/18 at 09:00 Midodrine (Proamatine) 5 mg TID@,13,17 GTB Last administered on 01/01/19 07:58; Admin Dose 5 MG; Start 12/07/18 at 09:00 Epoetin Margarito-epbx (RETACRIT(esrd)) 10,000 unit MoWeFr@1700 SC Last administered on 12/30/18 17:57; Admin Dose 10,000 UNIT; Start 12/11/18 at 17:00 Lorazepam (Ativan) 1 mg Q4H PRN IV AGITATION/ANXIETY Last administered on 12/19/18 05:41; Admin Dose 1 MG; Start 12/15/18 at 11:00 Morphine Sulfate (morphine) 1 mg Q4H PRN IV SEVERE PAIN LEVEL 7-10 Last administered on 12/19/18 03:37; Admin Dose 1 MG; Start 12/15/18 at 11:00 Metoclopramide HCl (Reglan) 5 mg Q8 IV Last administered on 01/01/19 05:26; Ad min Dose 5 MG; Start 12/17/18 at 12:00 Miscellaneous Information 1 ea BID XX Last administered on 01/01/19 07:58; Admin Dose 1 EA; Start 12/21/18 at 15:00 Miscellaneous Information 1 ea BID XX Last administered on 01/01/19 07:59; Admin Dose 1 EA; Start 12/23/18 at 14:00 Methylprednisolone Sodium Succinate (Solu-Medrol) 40 mg DAILY IV Last administered on 01/01/19 07:58; Admin Dose 40 MG; Start 12/28/18 at 09:00; Stop 01/01/19 at 17:59 Norepinephrine 250 ml @ 1.875 mls/ hr TITRATE IV Last administered on 12/30/18 14:42; Admin Dose 22.5 MLS/HR; Start 12/29/18 at 09:30 Diltiazem HCl 125 ml @ 5 mls/hr TITRATE IV ; Start 12/29/18 at 09:30 Meropenem/Sodium Chloride 50 ml @ 100 mls/hr Q12 IVPB Last administered on 01/01/19 07:58; Admin Dose 100 MLS/HR; Start 12/29/18 at 21:00 Clindamycin HCl/ Dextrose 50 ml @ 100 mls/hr Q8 IVPB Last administered on 01/01/19 05:26; Admin Dose 100 MLS/HR; Start 12/29/18 at 15:00 Amiodarone HCl (Cordarone) 400 mg BID GTB Last administered on 01/01/19 07:58; Admin Dose 400 MG; Start 12/29/18 at 21:00 Levothyroxine Sodium (Synthroid) 75 mcg BEFORE BREAKFAST GTB Last administered on 01/01/19at 06:34; Admin Dose 75 MCG; Start 12/30/18 at 07:00 Albuterol (Ventolin Hfa) 4 puff Q4H RESP THERAPY PRN INH WHEEZING; Start 12/30/18 at 08:00 Caspofungin 50 mg/ Sodium Chloride 250 ml @ 250 mls/hr Q24H IVPB Last administered on 12/31/18at 12:37; Admin Dose 250 MLS/HR; Start 12/31/18 at 13:00 Phenylephrine HCl 250 ml @ 75 mls/hr TITRATE IV ; Start 12/30/18 at 17:00 Dextrose/Sodium Chloride 1,000 ml @ 30 mls/hr Q24H IV Last administered on 12/31/18at 23:54; Admin Dose 30 MLS/HR; Start 01/01/19 at 00:00 Eye Lubricant (Akwa Oint) 1 applic Q6 BOTH EYES ; Start 01/01/19 at 12:00 Eye Lubricant (Artificial Tears Oph) 2 drop Q6 BOTH EYES ; Start 01/01/19 at 12:00 Diagnostic Test (Pha) (Accu-Chek) 1 ea Q4 XX Last administered on 01/01/19at 09:09; Admin Dose 1 EA; Start 01/01/19 at 09:00 DEVENDRA LIM NP January 01, 2019 11:17
--- NOTE | 2019-01-01 11:49 | PN ---
DATE: 01/01/2019 SUBJECTIVE: Patient is presently receiving dialysis. Not responsive. OBJECTIVE: GENERAL: The patient is a well-developed, cachectic female who is not responsive at this time underg oing dialysis. VITAL SIGNS: Temperature 98.1, pulse 50 per minute and regular, respirations 18, blood pressure 112/ 68, pulse oximetry 100% on mechanical ventilator. SKIN: Increased pigmentation. There are diffuse ecchymoses and purpura. HEENT: Normocephalic. Marked muscle wasting and cachexia. Oral mucosa is dry. NECK: Supple. No jugular venous distention or thyroid enlargement. No carotid bruits. CHEST: Clear to auscultation and percussion. No rhonchi, wheezes, rales or rubs. Patient is on mec hanical ventilator via trach. ABDOMEN: No masses or ascites. Mildly distended. Somewhat firm. There is a G-tube in place. EXTREMITIES: Mild peripheral edema. Left upper extremity wrapped in a dry dressing. A white count 10,000 with absolute neutrophil count 1,400 and absolute lymphocyte count of 400, hemog lobin 7.8, hematocrit 22.5, MCV 84.3. MCH 29.2, MCHC 34.7, RDW 14.9 and platelet count 8000. Sodium 140, potassium 4.6, creatinine 0.9, BUN 96, glucose only 21. Protime 19.1 seconds, INR of 1.6, PTT is 40.9 seconds. There is no correction on mixing with normal plasma. Fibrinogen is 383. ASSESSMENT: 1. Chronic renal failure on dialysis. 2. Pancytopenia. The peripheral smear has been reviewed. There are multiple races of red blood cells. No fragmentati on, but there are some crenated cells. White blood cells are decreased in number. There is some tox ic granulation and Dohle bodies seen. Platelets are decreased with giant platelets seen. I do feel that it is likely that the thrombocytopenia is on the basis of peripheral destruction. Thi s may be antibody induced. The patient does have a negative KAMRYN, but have requested platelet antibodies as well as heparin-induc ed platelet antibodies. The patient is not presently receiving heparin, but may have been receiving heparin at her usual dialysis location. At this time, will withhold platelet transfusions unless there is active bleeding. The patient will consider initiating empiric therapy with IVIG. The patient's PTT does not correct when mixed with normal plasma. This suggests an inhibitor such as lupus anticoagulant. As noted, the patient's KAMRYN is negative, but will request anticardiolipin anti bodies and lupus anticoagulant screen. Dictated By: SHANICE GODINEZ MD SR/NTS Conf#: [id number] DID#: [id number] CC: MANDY BATES MD;*EndCC*
[2019-01-01] MEDS: DEXTROSE 10% 1,000 ML IV SCH (12:13)
--- NOTE | 2019-01-01 12:57 | CONS ---
Assessment/Plan Assessment/Plan Hospital Course (Demo Recall) Patient developed rapid atrial fibrillation during hemodialysis, hemodialysis stopped, she is in no distress afebrile with WBC today to H&H 7.8 and 22.5 platelets 8 Chest x-ray this morning revealed no significant change Antimicrobials: Cancidas, clindamycin, meropenem Microbiology: Blood culture on admission grew Klebsiella ESBL, repeat blood cultures negative, left thigh wound culture grew Klebsiella ESBL and Leah albicans Allergy: Zosyn, vancomycin Indwelling: Right upper thigh Davie catheter, left femoral triple-lumen catheter, trach Physical examination: This is a chronically ill-appearing cachectic middle-aged woman who is laying comfortably in bed. Head atraumatic normocephalic. Neck is supple. Chest rise symmetrical. Breath sounds diminished bases. Heart: S1-S2, irreg. Abdomen distended. Bowel sounds hypoactive. Extremities with bilateral edema, cyanotic, multiple ecchymotic areas and bruises, left upper thigh dressing present Assessment: 1. Septic shock 2. Healthcare associated pneumonia 3. Respiratory failure, acute on chronic, status post tracheostomy on this admission 4. Peripheral arterial disease status post left lower extremity bypass graft that became infected with wound culture grew Klebsiella ESBL 5. End-stage renal disease, hemodialysis dependent 6. Dysphagia 7. Coronary artery disease status post atrial fibrillation, status post permanent pacemaker 8. Failure to thrive with severe cachexia 9 . Unstageable sacral decubitus 10. History of peritoneal dialysis with peritoneal dialysis still in place 11. Thrombocytopenia 12. Atrial fibrillation Plan: Continues to do poorly, continue present care, antibiotics Consultation Date/Type/Reason Admit Date/Time Nov 21, 2018 at 04:53 Initial Consult Date Type of Consult id Requesting Provider: RENÉE SKINNER Date/Time of Note DATE: 01/01/19 TIME: 12:56 Exam/Review of Systems Exam Vitals Vital Signs Date Temp Pulse Resp B/P (MAP) Pulse Ox O2 O2 Flow FiO2 Time Delivery Rate 01/01/19 67 12:00 01/01/19 18 112/68 100 Mechanical 10:16 (83) Ventilator 01/01/19 40 08:00 01/01/19 98.1 04:00 Intake and Output 12/31/18 12/31/18 01/01/19 1515:00 23:00 07:00 IntakeIntake Total 350 ml 100 ml 290 ml BalanceBalance 350 ml 100 ml 290 ml Results Result Diagram: 01/01/19 0400 01/01/19 1006 Results 24hrs Laboratory Tests Test 01/01/19 04:00 01/01/19 04:59 01/01/19 09:07 01/01/19 10:06 White Blood 2.0 #L Count Red Blood Count 2.67 L Hemoglobin 7.8 L Hematocrit 22.5 L Mean Corpuscular 84.3 Volume Mean Corpuscular 29.2 Hemoglobin Mean Corpuscular 34.7 Hemoglobin Anh nt Red Cell 14.9 H Distribution Width Platelet Count 8 #*L Mean Platelet Volume Immature 0.500 H Granulocytes % Neutrophils % Segmented 68 Neutrophils % (Manual) Band Neutrophils 8 H % (Manual) Lymphocytes % Lymphocytes % 24 (Manual) Monocytes % Eosinophils % Basophils % Nucleated Red 0.0 Blood Cells % Immature 0.010 Granulocytes # Neutrophils # Neutrophils # 1.4 L (Manual) Band Neutrophils 0.1 # Lymphocytes 0.4 L (Manual) Lymphocytes # Monocytes # Eosinophils # Basophils # Nucleated Red Blood Cells # Platelet SIG DECREASED Estimate Giant Platelets 39 H Poikilocytosis 3+ Microcytosis 1+ Spherocytes 1+ Prothrombin Time 19.1 #H Prothrombin Time 1.5 Ratio INR 1.60 International Normalized Ratio Activated 39.8 H Partial Thrombop last Time Mix PTT Normal 40.0 Plasma Immediate Mix PTT Normal Plasma 1 Hour Fibrinogen 383.0 # Sodium Level 140 Potassium Level 4.6 Chloride Level 106 Carbon Dioxide 24 Level Anion Gap 10 Blood Urea 96 H Nitrogen Creatinine 0.90 Est Glomerular > 60 Filtrat Rate mL/min Glucose Level 73 # 54 #L Calcium Level 8.5 Lab Scanned BLOOD TRANSFUSI Report ON Bedside Glucose 21 *L Test 01/01/19 11:26 01/01/19 11:43 Bedside Glucose 118 108 Medications Medication Current Medications Glucose (Glutose) 15 gm Q15M PRN PO DECREASED GLUCOSE; Start 11/23/18 at 13:30 Glucose (Glutose) 22.5 gm Q15M PRN PO DECREASED GLUCOSE; Start 11/23/18 at 13:30 Dextrose (D50w Syringe) 25 ml Q15M PRN IV DECREASED GLUCOSE Last administered on 01/01/19at 11:09; Admin Dose 25 ML; Start 11/23/18 at 13:30 Dextrose (D50w Syringe) 50 ml Q15M PRN IV DECREASED GLUCOSE Last administered on 12/10/18 13:14; Admin Dose 50 ML; Start 11/23/18 at 13:30 Glucagon (Glucagen) 1 mg Q15M PRN IM DECREASED GLUCOSE; Start 11/23/18 at 13:30 Glucose (Glutose) 15 gm Q15M PRN BUCCAL DECREASED GLUCOSE; Start 11/23/18 at 13:30 Albumin Human 100 ml @ 100 mls/hr DURING DIALYSIS PRN IV HYPOTENSION DURING HD Last administered on 12/28/18 08:00; Admin Dose 100 MLS/HR; Start 11/26/18 at 14:00 Collagenase (Santyl) 1 applic DAILY TOP Last administered on 01/01/19 07:58; Admin Dose 1 APPLIC; Start 12/01/18 at 16:30 Acetaminophen (Tylenol Liquid) 650 mg Q6H PRN NGT PAIN LEVEL 1-3 OR FEVER Last administered on 12/28/18 06:03; Admin Dose 650 MG; Start 12/06/18 at 09:00 Midodrine (Proamatine) 5 mg TID@,,17 GTB Last administered on 01/01/19 07:58; Admin Dose 5 MG; Start 12/07/18 at 09:00 Epoetin Margarito-epbx (RETACRIT(esrd)) 10,000 unit MoWeFr@1700 SC Last administered on 12/30/18 17:57; Admin Dose 10,000 UNIT; Start 12/11/18 at 17:00 Lorazepam (Ativan) 1 mg Q4H PRN IV AGITATION/ANXIETY Last administered on 05:41; Admin Dose 1 MG; Start 12/15/18 at 11:00 Morphine Sulfate (morphine) 1 mg Q4H PRN IV SEVERE PAIN LEVEL 7-10 Last administered on 12/19/18 03:37; Admin Dose 1 MG; Start 12/15/18 at 11:00 Metoclopramide HCl (Reglan) 5 mg Q8 IV Last administered on 01/01/19 05:26; Admin Dose 5 MG; Start 12/17/18 at 12:00 Miscellaneous Information 1 ea BID XX Last administered on 01/01/19 07:58; Admin Dose 1 EA; Start 12/21/18 at 15:00 Miscellaneous Information 1 ea BID XX Last administered on 01/01/19 07:59; Admin Dose 1 EA; Start 12/23/18 at 14:00 Methylprednisolone Sodium Succinate (Solu-Medrol) 40 mg DAILY IV Last administered on 01/01/19 07:58; Admin Dose 40 MG; Start 12/28/18 at 09:00; Stop 01/01/19 at 17:59 Diltiazem HCl 125 ml @ 5 mls/hr TITRATE IV ; Start 12/29/18 at 09:30 Meropenem/Sodium Chloride 50 ml @ 100 mls/hr Q12 IVPB Last administered on 01/01/19 07:58; Admin Dose 100 MLS/HR; Start 12/29/18 at 21:00 Clindamycin HCl/ Dextrose 50 ml @ 100 mls/hr Q8 IVPB Last administered on 01/01/19 05:26; Admin Dose 100 MLS/HR; Start 12/29/18 at 15:00 Amiodarone HCl (Cordarone) 400 mg BID GTB Last administered on 01/01/19 07:58; Admin Dose 400 MG; Start 12/29/18 at 21:00 Levothyroxine Sodium (Synthroid) 75 mcg BEFORE BREAKFAST GTB Last administered on 01/01/19 06:34; Admin Dose 75 MCG; Start 12/30/18 at 07:00 Albuterol (Ventolin Hfa) 4 puff Q4H RESP THERAPY PRN INH WHEEZING; Start 12/30/18 at 08:00 Caspofungin 50 mg/ Sodium Chloride 250 ml @ 250 mls/hr Q24H IVPB Last administered on 12/31/18at 12:37; Admin Dose 250 MLS/HR; Start 12/31/18 at 13:00 Phenylephrine HCl 250 ml @ 75 mls/hr TITRATE IV ; Start 12/30/18 at 17:00 Eye Lubricant (Akwa Oint) 1 applic Q6 BOTH EYES ; Start 01/01/19 at 12:00 Eye Lubricant (Artificial Tears Oph) 2 drop Q6 BOTH EYES ; Start 01/01/19 at 12:00 Norepinephrine 250 ml @ 1.875 mls/ hr TITRATE IV Last administered on 01/01/19at 10:30; Admin Dose 7.5 MLS/HR; Start 01/01/19 at 11:30 Immune Globulin (Carimune Nf) 50 gm WITH DIALYSIS STAT IV ; Start 01/01/19 at 11:29; Stop 01/01/19 at 11:30; Status UNV Dextrose 1,000 ml @ 30 mls/hr Q24H IV Last administered on 01/01/19at 12:13; Admin Dose 30 MLS/HR; Start 01/01/19 at 12:00 KELSIE ELY NP January 01, 2019 12:57
[2019-01-01] MEDS: ARTIFICIAL TEARS 15 ML OPH BOTH EYES SCH ×2 (13:57→16:54)
[2019-01-01] MEDS: OCULAR LUBRICANT 3.5 GM OPH OINT BOTH EYES SCH ×2 (13:59→16:54)
[2019-01-01] MEDS: CASPOFUNGIN 50 MG in SOD CHLORIDE 0.9% 250 ML IVPB SCH (14:00)
[2019-01-01] MEDS: AMIODARONE 150MG/D5W BOLUS 100 ML IV SCH (14:49)
[2019-01-01] MEDS ORDERED: IGA AVG IV ONE (15:00)
[2019-01-01] MEDS ORDERED: IMMUNE GLOBUL IV ONE (15:00)
[2019-01-01] MEDS ORDERED: GLY IV ONE (15:00)
[2019-01-01] MEDS ORDERED: IMMUNE GLOBULIN IV ONE (15:00)
[2019-01-01] MEDS ORDERED: [UNRECOGNIZED DRUG - OTHER] IV ONE (15:00)
--- NOTE | 2019-01-01 16:14 | PN ---
Date/Time of Note Date/Time of Note DATE: 01/01/19 TIME: 16:13 Assessment/Plan Lines/Catheters IV Catheter Type (from Nrsg): Mid Line Moon in Place (from Nrsg): No Assessment/Plan Assessment/Plan Respiratory failure This post tracheostomy Trach site clean Bleeding We will continue vent support Pulmonary toilet Trach care Subjective 24 Hr Interval Summary Constitutional: improved Pain Control: mild Exam/Review of Systems Vital Signs Vitals Vital Signs Date Temp Pulse Resp B/P (MAP) Pulse Ox O2 O2 Flow FiO2 Time Delivery Rate 01/01/19 58 19 156/79 100 Mechanical 15:00 (104) Ventilator 01/01/19 96.9 12:00 01/01/19 40 08:00 Intake and Output 12/31/18 12/31/18 01/01/19 1515:00 23:00 07:00 IntakeIntake Total 350 ml 100 ml 290 ml BalanceBalance 350 ml 100 ml 290 ml Exam Eyes: nl conjunctiva, EOMI, nl lids, nl sclera ENMT: nl external ears & nose, nl lips & teeth, nl nasal mucosa & septum, mucosa pink and moist Neck: supple, non-tender Respiratory: clear to auscultation, normal air movement Cardiovascular: regular rate and rhythm, nl pulses Gastrointestinal: soft, nl liver, spleen, non-tender Musculoskeletal: nl extremities to inspection, nl gait and stance Results Result Diagram: 01/01/19 0400 01/01/19 1006 TAE PAN MD January 01, 2019 16:13
[2019-01-01] MEDS: EPOETIN ALFA-EPBX (ESRD) 10,000 UNIT/ML VIAL SC SCH (16:54)
[2019-01-02] VITALS (86 sets, daily range): BP systolic 75–140; BP diastolic 46–80; PULSE 51–66; RESP 15–29
[2019-01-02] MEDS: OCULAR LUBRICANT 3.5 GM OPH OINT BOTH EYES SCH ×4 (01:15→18:15)
[2019-01-02] MEDS: ARTIFICIAL TEARS 15 ML OPH BOTH EYES SCH ×4 (01:15→18:15)
[2019-01-02] MEDS: LEVOTHYROXINE 75 MCG TAB GTB SCH (05:58)
[2019-01-02] MEDS: CLINDAMYCIN 600 MG/D5W (PMX) 50 ML IVPB SCH ×3 (06:18→22:09)
[2019-01-02] MEDS: DEXTROSE 50% 50 ML SYRINGE IV PRN ×2 (06:18→13:23)
[2019-01-02] MEDS: METOCLOPRAMIDE 10 MG INJ IV SCH ×3 (06:18→22:09)
--- NOTE | 2019-01-02 07:59 | CONS ---
Assessment/Plan Assessment/Plan Assessment/Plan (Daily) Ventilator setting; AC of 18, tidal volume 400, PEEP of 5, 40% FiO2. Patient is currently on Levophed 1 sharon per minute. Assessment and recommendations; 1. Patient admitted with severe bilateral pneumonia with interval radiological improvement, currently on appropriate antimicrobial regimen. 2. Gram-negative sepsis. 3. History of tracheostomy and G-tube placement. 4. G-tube malfunction now. 5. Anemia and severe thrombocytopenia. 6. Severely macerated state. 7. History of cardiac arrhythmia. 8. Mild persistent hypotension. Continue current supportive care. TPN to be started. Overall prognosis is poor. Consultation Date/Type/Reason Admit Date/Time Nov 21, 2018 at 04:53 Initial Consult Date Type of Consult Pulmonary Requesting Provider: RENÉE SKINNER Date/Time of Note DATE: 01/02/19 TIME: 07:57 24 HR Interval Summary Free Text/Dictation Patient's condition is critical but stable. Currently on low-dose Levophed at 1 sharon per minute. General exam; elderly female, appears emaciated, on ventilator via tracheostomy, awake and responsive appropriately. Currently no distress. Exam/Review of Systems Exam Vitals Vital Signs Date Temp Pulse Resp B/P (MAP) Pulse Ox O2 O2 Flow FiO2 Time Delivery Rate 01/02/19 58 20 122/68 100 06:45 (86) 01/02/19 Mechanical 06:00 Ventilator 01/02/19 40 05:10 01/02/19 97.7 04:00 Intake and Output 01/01/19 01/01/19 01/02/19 1515:00 23:00 07:00 IntakeIntake Total 641.25 ml 563.125 ml 95.625 ml OutputOutput Total 527 ml 0 ml 10 ml BalanceBalance 114.25 ml 563.125 ml 85.625 ml Exam H EENT exam; supple neck, positive JVD. No lymphadenopathy. Midline trachea. No thyromegaly. Patient has fair dentition. Tracheostomy in place. Insertion site is clean. Chest exam; diminished breath sounds bilaterally. S1-S2 audible, no murmurs. Pacemaker in left chest wall. Abdomen exam; soft, scaphoid. No organomegaly. Bowel sounds are sluggish. Extremity exam; no peripheral edema. Patient does have multiple ecchymosis all over. 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 Results Result Diagram: 01/01/19 0400 01/01/19 1006 Results 24hrs Laboratory Tests Test 01/01/19 09:07 01/01/19 10:06 01/01/19 11:26 01/01/19 11:43 Bedside Glucose 21 *L 118 108 Glucose Level 54 #L Test 01/02/19 06:08 01/02/19 06:31 01/02/19 06:53 Bedside Glucose 64 L 241 H 238 H Medications Medication Current Medications Glucose (Glutose) 15 gm Q15M PRN PO DECREASED GLUCOSE; Start 11/23/18 at 13:30 Glucose (Glutose) 22.5 gm Q15M PRN PO DECREASED GLUCOSE; Start 11/23/18 at 13:30 Dextrose (D50w Syringe) 25 ml Q15M PRN IV DECREASED GLUCOSE Last administered on 01/02/19at 06:18; Admin Dose 25 ML; Start 11/23/18 at 13:30 Dextrose (D50w Syringe) 50 ml Q15M PRN IV DECREASED GLUCOSE Last administered on 12/10/18at 13:14; Admin Dose 50 ML; Start 11/23/18 at 13:30 Glucagon (Glucagen) 1 mg Q15M PRN IM DECREASED GLUCOSE; Start 11/23/18 at 13:30 Glucose (Glutose) 15 gm Q15M PRN BUCCAL DECREASED GLUCOSE; Start 11/23/18 at 13:30 Albumin Human 100 ml @ 100 mls/hr DURING DIALYSIS PRN IV HYPOTENSION DURING HD Last administered on 12/28/18at 08:00; Admin Dose 100 MLS/HR; Start 11/26/18 at 14:00 Collagenase (Santyl) 1 applic DAILY TOP Last administered on 01/01/19at 07:58; Admin Dose 1 APPLIC; Start 12/01/18 at 16:30 Acetaminophen (Tylenol Liquid) 650 mg Q6H PRN NGT PAIN LEVEL 1-3 OR FEVER Last administered on 12/28/18at 06:03; Admin Dose 650 MG; Start 12/06/18 at 09:00 Midodrine (Proamatine) 5 mg TID@09,13,17 GTB Last administered on 01/01/19at 14:00; Admin Dose 5 MG; Start 12/07/18 at 09:00 Epoetin Margarito-epbx (RETACRIT(esrd)) 10,000 unit MoWeFr@1700 SC Last administered on 01/01/19 16:54; Admin Dose 10,000 UNIT; Start 12/11/18 at 17:00 Lorazepam (Ativan) 1 mg Q4H PRN IV AGITATION/ANXIETY Last administered on 12/19/18 05:41; Admin Dose 1 MG; Start 12/15/18 at 11:00 Morphine Sulfate (morphine) 1 mg Q4H PRN IV SEVERE PAIN LEVEL 7-10 Last administered on 12/19/18 03:37; Admin Dose 1 MG; Start 12/15/18 at 11:00 Metoclopramide HCl (Reglan) 5 mg Q8 IV Last administered on 01/02/19 06:18; Admin Dose 5 MG; Start 12/17/18 at 12:00 Diltiazem HCl 125 ml @ 5 mls/hr TITRATE IV ; Start 12/29/18 at 09:30 Meropenem/Sodium Chloride 50 ml @ 100 mls/hr Q12 IVPB Last administered on 01/01/19 21:18; Admin Dose 100 MLS/HR; Start 12/29/18 at 21:00 Clindamycin HCl/ Dextrose 50 ml @ 100 mls/hr Q8 IVPB Last administered on 01/02/19 06:18; Admin Dose 100 MLS/HR; Start 12/29/18 at 15:00 Levothyroxine Sodium (Synthroid) 75 mcg BEFORE BREAKFAST GTB Last administered on 01/01/19 06:34; Admin Dose 75 MCG; Start 12/30/18 at 07:00 Albuterol (Ventolin Hfa) 4 puff Q4H RESP THERAPY PRN INH WHEEZING; Start 12/30/18 at 08:00 Caspofungin 50 mg/ Sodium Chloride 250 ml @ 250 mls/hr Q24H IVPB Last administered on 01/01/19 14:00; Admin Dose 250 MLS/HR; Start 12/31/18 at 13:00 Phenylephrine HCl 250 ml @ 75 mls/hr TITRATE IV ; Start 12/30/18 at 17:00 Eye Lubricant (Akwa Oint) 1 applic Q6 BOTH EYES Last administered on 01/02/19 06:17; Admin Dose 1 APPLIC; Start 01/01/19 at 12:00 Eye Lubricant (Artificial Tears Oph) 2 drop Q6 BOTH EYES Last administered on 01/02/19 06:17; Admin Dose 2 DROP; Start 01/01/19 at 12:00 Norepinephrine 250 ml @ 1.875 mls/ hr TITRATE IV Last administered on 01/01/19at 17:54; Admin Dose 3.75 MLS/HR; Start 01/01/19 at 11:30 Dextrose 1,000 ml @ 40 mls/hr Q24H IV Last administered on 01/01/19at 12:13; Admin Dose 30 MLS/HR; Start 01/01/19 at 12:00 Amiodarone HCl 100 ml @ 600 mls/hr DAILY IV Last administered on 01/01/19at 14:49; Admin Dose 600 MLS/HR; Start 01/01/19 at 14:00 Diagnostic Test (Pha) (Accu-Chek) 1 ea Q4 XX ; Start 01/02/19 at 09:00 MARIAN KUMAR January 02, 2019 07:59
[2019-01-02] MEDS: MEROPENEM 500MG/50 ML (PMX) 50 ML IVPB SCH ×2 (08:02→22:08)
[2019-01-02] MEDS: AMIODARONE 150MG/D5W BOLUS 100 ML IV SCH (08:03)
[2019-01-02] MEDS: BALSAM PERU/CASTOR OIL 60 GM TUBE TOP SCH ×2 (08:03→22:09)
[2019-01-02] MEDS: ACCU-CHEK XX SCH ×4 (08:03→21:00)
[2019-01-02] MEDS: COLLAGENASE 5 GM (UD JAR) TOP SCH (08:03)
--- NOTE | 2019-01-02 08:11 | PN ---
DATE: 01/02/2019 SUBJECTIVE: The patient remains critically ill. On full ventilator support. The patient unable to tolerate dialysis yesterday. No other events noted. OBJECTIVE: VITAL SIGNS: Blood pressure is 105/63, respirations 20, pulse 57, temperature 98.6. HEENT: Head is normocephalic. NECK: Supple. HEART: Regular rate. LUNGS: Show diminished breath sounds at the base. ABDOMEN: Soft, nontender to palpation without rebound or guarding. EXTREMITIES: Negative for clubbing, cyanosis. Positive edema. DERMATOLOGIC: No rashes. MUSCULOSKELETAL: No joint effusion. NEUROLOGIC: No change in exam. LABORATORY DATA: Has been reviewed. ASSESSMENT AND PLAN: 1. End-stage renal disease. The patient had hemodialysis yesterday. Plan for dialysis again tomorr ow. 2. Anemia. The patient is status post blood transfusion. Monitor hemoglobin and hematocrit levels. Continue Epogen. 3. Volume overload, diffuse anasarca. Will continue ultrafiltration dialysis. 4. Hyperkalemia, resolved. 5. Mineral bone disorder. Monitor calcium and phosphorus levels. 6. Ventilatory-dependent respiratory failure. Vent settings have been reviewed. Continue to monito r. 7. Severe sepsis, status post shock. Continue medical management, continue antibiotic therapy. 8. Thrombocytopenia. Continue to monitor. 9. Hypothyroidism. Continue Synthroid. 10. Dysphagia. Continue to monitor. 11. Arrhythmia. Continue amiodarone. 12. Lower extremity wounds. 13. Status post cardiopulmonary arrest. Dictated By: SARIKA CRAIG/NTS Conf#: [id number] DID#: [id number] CC: MANDY BATES MD;*EndCC*
[2019-01-02] MEDS: MIDODRINE 5 MG TAB GTB SCH ×3 (09:00→17:00)
--- NOTE | 2019-01-02 09:21 | CONS ---
Assessment/Plan Assessment/Plan Hospital Course (Demo Recall) 58 yo with septic shock, multiorgan failure, end stage renal disease, ventilator dependency, severe cachexia, and severe thrombocytopenia with skin oozing, with recurrence of rapid atrial fibrillation during dialysis, now in sinus rhythm. Prognosis is grave. Recommendations: Will give amiodarone daily as an IV dose, as g-tube route is not reliable for absorption Call if further questions arise. Consultation Date/Type/Reason Admit Date/Time Nov 21, 2018 at 04:53 Initial Consult Date 12/29/18 Type of Consult Cardiology Requesting Provider: RENÉE SKINNER Date/Time of Note DATE: 01/02/19 TIME: 09:19 24 HR Interval Summary Free Text/Dictation Yesterday during dialysis patient had rapid atrial fibrillation, which did not last long. Since then she has maintained NSR. Subjective hx not possible: pt critical status Exam/Review of Systems Vital Signs Vitals Vital Signs Date Temp Pulse Resp B/P (MAP) Pulse Ox O2 O2 Flow FiO2 Time Delivery Rate 01/02/19 58 20 122/68 100 06:45 (86) 01/02/19 Mechanical 06:00 Ventilator 01/02/19 40 05:10 01/02/19 97.7 04:00 Intake and Output 01/01/19 01/01/19 01/02/19 1515:00 23:00 07:00 IntakeIntake Total 641.25 ml 563.125 ml 154.625 ml OutputOutput Total 527 ml 0 ml 10 ml BalanceBalance 114.25 ml 563.125 ml 144.625 ml Exam Constitutional: frail ENMT: intubated (tracheostomy) Skin: ecchymosis Labs Result Diagram: 01/01/19 0400 01/01/19 1006 Results 24hrs Laboratory Tests Test 01/01/19 10:06 01/01/19 11:26 01/01/19 11:43 01/02/19 06:08 Glucose Level 54 #L Bedside Glucose 118 108 64 L Test 01/02/19 06:31 01/02/19 06:53 01/02/19 08:02 Bedside Glucose 241 H 238 H 247 H Medications Medications Current Medications Glucose (Glutose) 15 gm Q15M PRN PO DECREASED GLUCOSE; Start 11/23/18 at 13:30 Glucose (Glutose) 22.5 gm Q15M PRN PO DECREASED GLUCOSE; Start 11/23/18 at 13:30 Dextrose (D50w Syringe) 25 ml Q15M PRN IV DECREASED GLUCOSE Last administered on 01/02/19 06:18; Admin Dose 25 ML; Start 11/23/18 at 13:30 Dextrose (D50w Syringe) 50 ml Q15M PRN IV DECREASED GLUCOSE Last administered on 12/10/18 13:14; Admin Dose 50 ML; Start 11/23/18 at 13:30 Glucagon (Glucagen) 1 mg Q15M PRN IM DECREASED GLUCOSE; Start 11/23/18 at 13:30 Glucose (Glutose) 15 gm Q15M PRN BUCCAL DECREASED GLUCOSE; Start 11/23/18 at 13:30 Albumin Human 100 ml @ 100 mls/hr DURING DIALYSIS PRN IV HYPOTENSION DURING HD Last administered on 12/28/18 08:00; Admin Dose 100 MLS/HR; Start 11/26/18 at 14:00 Collagenase (Santyl) 1 applic DAILY TOP Last administered on 01/02/19 08:03; Admin Dose 1 APPLIC; Start 12/01/18 at 16:30 Acetaminophen (Tylenol Liquid) 650 mg Q6H PRN NGT PAIN LEVEL 1-3 OR FEVER Last administered on 12/28/18 06:03; Admin Dose 650 MG; Start 12/06/18 at 09:00 Midodrine (Proamatine) 5 mg TID@09,13,17 GTB Last administered on 01/01/19 14:00; Admin Dose 5 MG; Start 12/07/18 at 09:00 Epoetin Margarito-epbx (RETACRIT(esrd)) 10,000 unit MoWeFr@1700 SC Last administered on 01/01/19 16:54; Admin Dose 10,000 UNIT; Start 12/11/18 at 17:00 Lorazepam (Ativan) 1 mg Q4H PRN IV AGITATION/ANXIETY Last administered on 12/19/18 05:41; Admin Dose 1 MG; Start 12/15/18 at 11:00 Morphine Sulfate (morphine) 1 mg Q4H PRN IV SEVERE PAIN LEVEL 7-10 Last administered on 12/19/18 03:37; Admin Dose 1 MG; Start 12/15/18 at 11:00 Metoclopramide HCl (Reglan) 5 mg Q8 IV Last administered on 01/02/19 06:18; Admin Dose 5 MG; Start 12/17/18 at 12:00 Diltiazem HCl 125 ml @ 5 mls/hr TITRATE IV ; Start 12/29/18 at 09:30 Meropenem/Sodium Chloride 50 ml @ 100 mls/hr Q12 IVPB Last administered on 01/02/19 08:02; Admin Dose 100 MLS/HR; Start 12/29/18 at 21:00 Clindamycin HCl/ Dextrose 50 ml @ 100 mls/hr Q8 IVPB Last administered on 01/02/19 06:18; Admin Dose 100 MLS/HR; Start 12/29/18 at 15:00 Levothyroxine Sodium (Synthroid) 75 mcg BEFORE BREAKFAST GTB Last administered on 01/01/19 06:34; Admin Dose 75 MCG; Start 12/30/18 at 07:00 Albuterol (Ventolin Hfa) 4 puff Q4H RESP THERAPY PRN INH WHEEZING; Start 12/30/18 at 08:00 Caspofungin 50 mg/ Sodium Chloride 250 ml @ 250 mls/hr Q24H IVPB Last administered on 01/01/19 14:00; Admin Dose 250 MLS/HR; Start 12/31/18 at 13:00 Phenylephrine HCl 250 ml @ 75 mls/hr TITRATE IV ; Start 12/30/18 at 17:00 Eye Lubricant (Akwa Oint) 1 applic Q6 BOTH EYES Last administered on 01/02/19 06:17; Admin Dose 1 APPLIC; Start 01/01/19 at 12:00 Eye Lubricant (Artificial Tears Oph) 2 drop Q6 BOTH EYES Last administered on 01/02/19 06:17; Admin Dose 2 DROP; Start 01/01/19 at 12:00 Norepinephrine 250 ml @ 1.875 mls/ hr TITRATE IV Last administered on 01/01/19 17:54; Admin Dose 3.75 MLS/HR; Start 01/01/19 at 11:30 Dextrose 1,000 ml @ 40 mls/hr Q24H IV Last administered on 01/01/19 12:13; Admin Dose 30 MLS/HR; Start 01/01/19 at 12:00 Amiodarone HCl 100 ml @ 600 mls/hr DAILY IV Last administered on 01/02/19at 08:03; Admin Dose 600 MLS/HR; Start 01/01/19 at 14:00 Diagnostic Test (Pha) (Accu-Chek) 1 ea Q4 XX Last administered on 01/02/19at 08:03; Admin Dose 1 EA; Start 01/02/19 at 09:00 SANDRA MEMBRENO January 02, 2019 09:21
--- NOTE | 2019-01-02 09:49 | CONS ---
Assessment/Plan Assessment/Plan Assessment/Plan (Daily) Patient's blood pressure stable off Levophed, neurological function essentially unchanged. G-tube malfunction to now patient is being started on TPN other parameters including Thrombocytopenia Anemia Severely malnourished Recurrent respiratory failure Recurrent sepsis syndrome Fluid and electrolyte abnormalities corrected Patient is a chemical code only, questionable movement out of ICU. Consultation Date/Type/Reason Admit Date/Time Nov 21, 2018 at 04:53 Date/Time of Note DATE: 01/02/19 TIME: 09:49 Past Medical History Medical History: hypertension, hypothyroid, renal disease, other (See HPI) Home Meds Reported Medications Folic Acid* (Folic Acid*) 1 Mg Tablet, 1 MG PO DAILY, TAB 08/10/18 Amiodarone Hcl* (Amiodarone Hcl*) 200 Mg Tablet, 200 MG PO BID, #60 TAB 08/10/18 Pantoprazole* (Protonix*) 40 Mg Tablet.dr, 40 MG PO DAILY, TAB 08/10/18 Multivit/Ca Carb/B Cmplx/Fa* (Iram-Xiomara*) 1 Tab Tab, 1 TAB PO DAILY, TAB 08/10/18 Levothyroxine Sodium* (Levoxyl*) 75 Mcg Tablet, 75 MCG PO BEFORE BREAKFAST, #30 TAB 08/10/18 Medications Current Medications Glucose (Glutose) 15 gm Q15M PRN PO DECREASED GLUCOSE; Start 11/23/18 at 13:30 Glucose (Glutose) 22.5 gm Q15M PRN PO DECREASED GLUCOSE; Start 11/23/18 at 13:30 Dextrose (D50w Syringe) 25 ml Q15M PRN IV DECREASED GLUCOSE Last administered on 01/02/19at 06:18; Admin Dose 25 ML; Start 11/23/18 at 13:30 Dextrose (D50w Syringe) 50 ml Q15M PRN IV DECREASED GLUCOSE Last administered on 12/10/18at 13:14; Admin Dose 50 ML; Start 11/23/18 at 13:30 Glucagon (Glucagen) 1 mg Q15M PRN IM DECREASED GLUCOSE; Start 11/23/18 at 13:30 Glucose (Glutose) 15 gm Q15M PRN BUCCAL DECREASED GLUCOSE; Start 11/23/18 at 13:30 Albumin Human 100 ml @ 100 mls/hr DURING DIALYSIS PRN IV HYPOTENSION DURING HD Last administered on 5/20/19at 08:00; Admin Dose 100 MLS/HR; Start 11/26/18 at 14:00 Collagenase (Santyl) 1 applic DAILY TOP Last administered on 01/02/19 08:03; Admin Dose 1 APPLIC; Start 12/01/18 at 16:30 Acetaminophen (Tylenol Liquid) 650 mg Q6H PRN NGT PAIN LEVEL 1-3 OR FEVER Last administered on 12/28/18 06:03; Admin Dose 650 MG; Start 12/06/18 at 09:00 Midodrine (Proamatine) 5 mg TID@09,13,17 GTB Last administered on 01/01/19 14:00; Admin Dose 5 MG; Start 12/07/18 at 09:00 Epoetin Margarito-epbx (RETACRIT(esrd)) 10,000 unit MoWeFr@1700 SC Last administered on 01/01/19 16:54; Admin Dose 10,000 UNIT; Start 12/11/18 at 17:00 Lorazepam (Ativan) 1 mg Q4H PRN IV AGITATION/ANXIETY Last administered on 12/19/18 05:41; Admin Dose 1 MG; Start 12/15/18 at 11:00 Morphine Sulfate (morphine) 1 mg Q4H PRN IV SEVERE PAIN LEVEL 7-10 Last administered on 12/19/18 03:37; Admin Dose 1 MG; Start 12/15/18 at 11:00 Metoclopramide HCl (Reglan) 5 mg Q8 IV Last administered on 01/02/19 06:18; Admin Dose 5 MG; Start 12/17/18 at 12:00 Diltiazem HCl 125 ml @ 5 mls/hr TITRATE IV ; Start 12/29/18 at 09:30 Meropenem/Sodium Chloride 50 ml @ 100 mls/hr Q12 IVPB Last administered on 01/02/19 08:02; Admin Dose 100 MLS/HR; Start 12/29/18 at 21:00 Clindamycin HCl/ Dextrose 50 ml @ 100 mls/hr Q8 IVPB Last administered on 01/02/19 06:18; Admin Dose 100 MLS/HR; Start 12/29/18 at 15:00 Levothyroxine Sodium (Synthroid) 75 mcg BEFORE BREAKFAST GTB Last administered on 5/24/19at 06:34; Admin Dose 75 MCG; Start 12/30/18 at 07:00 Albuterol (Ventolin Hfa) 4 puff Q4H RESP THERAPY PRN INH WHEEZING; Start 12/30 at 08:00 Caspofungin 50 mg/ Sodium Chloride 250 ml @ 250 mls/hr Q24H IVPB Last administered on 01/01/19at 14:00; Admin Dose 250 MLS/HR; Start 12/31/18 at 13:00 Phenylephrine HCl 250 ml @ 75 mls/hr TITRATE IV ; Start 12/30/18 at 17:00 Eye Lubricant (Akwa Oint) 1 applic Q6 BOTH EYES Last administered on 01/02/19 06:17; Admin Dose 1 APPLIC; Start 01/01/19 at 12:00 Eye Lubricant (Artificial Tears Oph) 2 drop Q6 BOTH EYES Last administered on 01/02/19at 06:17; Admin Dose 2 DROP; Start 01/01/19 at 12:00 Norepinephrine 250 ml @ 1.875 mls/ hr TITRATE IV Last administered on 01/01/19at 17:54; Admin Dose 3.75 MLS/HR; Start 01/01/19 at 11:30 Dextrose 1,000 ml @ 40 mls/hr Q24H IV Last administered on 01/01/19at 12:13; Admin Dose 30 MLS/HR; Start 01/01/19 at 12:00 Amiodarone HCl 100 ml @ 600 mls/hr DAILY IV Last administered on 01/02/19at 08:03; Admin Dose 600 MLS/HR; Start 01/01/19 at 14:00 Diagnostic Test (Pha) (Accu-Chek) 1 ea Q4 XX Last administered on 01/02/19 08:03; Admin Dose 1 EA; Start 01/02/19 at 09:00 Allergies: Coded Allergies: Penicillins (Verified Allergy, Unknown, 12/16/18) tazobactam (Verified Allergy, Unknown, 12/16/18) vancomycin (Verified Allergy, Unknown, 12/16/18) Past Surgical History Past Surgical Hx: other Social History Alcohol Use: none Smoking Status: Never smoker Drug Use: none Exam/Review of Systems Exam Vitals Vital Signs Date Temp Pulse Resp B/P (MAP) Pulse Ox O2 O2 Flow FiO2 Time Delivery Rate 01/02/19 58 20 122/68 100 06:45 (86) 01/02/19 Mechanical 06:00 Ventilator 01/02/19 40 05:10 01/02/19 97.7 04:00 Intake and Output 01/01/19 01/01/19 01/02/19 1515:00 23:00 07:00 IntakeIntake Total 641.25 ml 563.125 ml 154.625 ml OutputOutput Total 527 ml 0 ml 10 ml BalanceBalance 114.25 ml 563.125 ml 144.625 ml Results Result Diagram: 01/01/19 0400 01/01/19 1006 Results 24hrs Laboratory Tests Test 01/01/19 10:06 01/01/19 11:26 01/01/19 11:43 01/02/19 06:08 Glucose Level 54 #L Bedside Glucose 118 108 64 L Test 01/02/19 06:31 01/02/19 06:53 01/02/19 08:02 Bedside Glucose 241 H 238 H 247 H Medications Medication Current Medications Glucose (Glutose) 15 gm Q15M PRN PO DECREASED GLUCOSE; Start 11/23/18 at 13:30 Glucose (Glutose) 22.5 gm Q15M PRN PO DECREASED GLUCOSE; Start 11/23/18 at 13:30 Dextrose (D50w Syringe) 25 ml Q15M PRN IV DECREASED GLUCOSE Last administered on 01/02/19at 06:18; Admin Dose 25 ML; Start 11/23/18 at 13:30 Dextrose (D50w Syringe) 50 ml Q15M PRN IV DECREASED GLUCOSE Last administered on 12/10/18at 13:14; Admin Dose 50 ML; Start 11/23/18 at 13:30 Glucagon (Glucagen) 1 mg Q15M PRN IM DECREASED GLUCOSE; Start 11/23/18 at 13:30 Glucose (Glutose) 15 gm Q15M PRN BUCCAL DECREASED GLUCOSE; Start 11/23/18 at 13:30 Albumin Human 100 ml @ 100 mls/hr DURING DIALYSIS PRN IV HYPOTENSION DURING HD Last administered on 12/28/18at 08:00; Admin Dose 100 MLS/HR; Start 11/26/18 at 14:00 Collagenase (Santyl) 1 applic DAILY TOP Last administered on 01/02/19at 08:03; Admin Dose 1 APPLIC; Start 12/01/18 at 16:30 Acetaminophen (Tylenol Liquid) 650 mg Q6H PRN NGT PAIN LEVEL 1-3 OR FEVER Last administered on 12/28/18 06:03; Admin Dose 650 MG; Start 12/06/18 at 09:00 Midodrine (Proamatine) 5 mg TID@09,13,17 GTB Last administered on 01/01/19 14:00; Admin Dose 5 MG; Start 12/07/18 at 09:00 Epoetin Margarito-epbx (RETACRIT(esrd)) 10,000 unit MoWeFr@1700 SC Last administered on 01/01/19 16:54; Admin Dose 10,000 UNIT; Start 12/11/18 at 17:00 Lorazepam (Ativan) 1 mg Q4H PRN IV AGITATION/ANXIETY Last administered on 05:41; Admin Dose 1 MG; Start 12/15/18 at 11:00 Morphine Sulfate (morphine) 1 mg Q4H PRN IV SEVERE PAIN LEVEL 7-10 Last administered on 12/19/18 03:37; Admin Dose 1 MG; Start 12/15/18 at 11:00 Metoclopramide HCl (Reglan) 5 mg Q8 IV Last administered on 01/02/19 06:18; Admin Dose 5 MG; Start 12/17/18 at 12:00 Diltiazem HCl 125 ml @ 5 mls/hr TITRATE IV ; Start 12/29/18 at 09:30 Meropenem/Sodium Chloride 50 ml @ 100 mls/hr Q12 IVPB Last administered on 01/02/19 08:02; Admin Dose 100 MLS/HR; Start 12/29/18 at 21:00 Clindamycin HCl/ Dextrose 50 ml @ 100 mls/hr Q8 IVPB Last administered on 01/02/19 06:18; Admin Dose 100 MLS/HR; Start 12/29/18 at 15:00 Levothyroxine Sodium (Synthroid) 75 mcg BEFORE BREAKFAST GTB Last administered on 01/01/19 06:34; Admin Dose 75 MCG; Start 12/30/18 at 07:00 Albuterol (Ventolin Hfa) 4 puff Q4H RESP THERAPY PRN INH WHEEZING; Start 12/30/18 at 08:00 Caspofungin 50 mg/ Sodium Chloride 250 ml @ 250 mls/hr Q24H IVPB Last administered on 01/01/19 14:00; Admin Dose 250 MLS/HR; Start 12/31/18 at 13:00 Phenylephrine HCl 250 ml @ 75 mls/hr TITRATE IV ; Start 12/30/18 at 17:00 Eye Lubricant (Akwa Oint) 1 applic Q6 BOTH EYES Last administered on 01/02/19 06:17; Admin Dose 1 APPLIC; Start 01/01/19 at 12:00 Eye Lubricant (Artificial Tears Oph) 2 drop Q6 BOTH EYES Last administered on 01/02/19 06:17; Admin Dose 2 DROP; Start 01/01/19 at 12:00 Norepinephrine 250 ml @ 1.875 mls/ hr TITRATE IV Last administered on 01/01/19 17:54; Admin Dose 3.75 MLS/HR; Start 01/01/19 at 11:30 Dextrose 1,000 ml @ 40 mls/hr Q24H IV Last administered on 01/01/19 12:13; Admin Dose 30 MLS/HR; Start 01/01/19 at 12:00 Amiodarone HCl 100 ml @ 600 mls/hr DAILY IV Last administered on 01/02/19 08:03; Admin Dose 600 MLS/HR; Start 01/01/19 at 14:00 Diagnostic Test (Pha) (Accu-Chek) 1 ea Q4 XX Last administered on 01/02/19 08:03; Admin Dose 1 EA; Start 01/02/19 at 09:00 JULIEN SALINAS January 02, 2019 09:49
--- NOTE | 2019-01-02 10:32 | PN ---
Date/Time of Note Date/Time of Note DATE: 01/02/19 TIME: 10:28 Assessment/Plan VTE Prophylaxis Risk score (from Ns)>0 risk: 8 SCD applied (from Ns): Yes Pharmacological prophylaxis: NA/contraindicated Pharm contraindication: thrombocytopenia Lines/Catheters IV [facility]from [facility] Mid Line Urinary Cath still in place: No Assessment/Plan Hospital Course S: Patient had dialysis attempted yesterday. Did have episode of A. fib with RVR which quickly converted back to normal sinus rhythm and has maintained there. Seen by multiple specialists in the last 24 hours as well. O: VS- see below PE: On MV via trach, minimally interactive Chronically ill appearing, cachectic Lungs clear Still some distended belly, G tube in place Mild peripheral edema present LUE wound wrapped A/P: 58 yo female with ESRD, questionable cirrhosis, DMII presents with hypog lycemia, leg infection. Suffered cardiac and respiratory arrest, recovered with good neurologic status however was unable to be weaned from mechanical ventilation and is now s/p trach and PEG. # Chronic respiratory failure: Treated for pneumonia earlier this admission as well as respiratory failure, status post trach placement earlier this admission as well. -Continue MV per pulm via trach, follow pulmonary recommendations, current antifungal and antibacterial medications -Continue to wean steroids off over the next few days -For the hypotension, continue pressor support and wean off as tolerated if possible -For leaking G-tube, per GI team they want culture of the leakage fluid which has been obtained, they are recommending possible G-tube replacement or other once the platelets have improved. Also consideration for TPN given, however not likely patient could tolerate new access placement(ie: PICC) for this. # Left lower extremity wound: Per ID team there is also concern of a possible infected graft. Blood cultures from last month as well as wound culture from last month positive for Klebsiella, patient presently on ertapenem as well as fluconazole. -Continue antibiotics indefinitely per ID # ESRD -For now continue HD per nephrology # Hypothyroidism: - Continue Synthroid # Anemia of CKD: Also thrombocytopenia, prior diagnosis of this secondary to HIT. 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 Per heme-onc this is likely a consumptive process occurring but resolution of her other problems would be the solution. Also lupus anticoagulant is being centered -Monitor CBC for now, follow-up further hematology oncology recommendations -Follow-up further labs ordered per hematology oncology team, status post IVIG administration yesterday as well # Prophylaxis: SCDs Dispo: Again still in intensive care unit the last 5 days. As mentioned above bioethics meeting held 4 days ago, family was present during the meeting as well. Family agreed to chemical code only after bioethics meeting. Family is aware patient has very poor prognosis at this point in time. Critical care time spent on patient care today equals 45 minutes. Result Diagram: 01/01/19 0400 01/01/19 1006 Results 24hrs Laboratory Tests Test 01/01/19 11:26 01/01/19 11:43 01/02/19 06:08 01/02/19 06:31 Bedside Glucose 118 108 64 L 241 H Test 01/02/19 06:53 01/02/19 08:02 Bedside Glucose 238 H 247 H Exam/Review of Systems Exam Vitals Vital Signs Date Temp Pulse Resp B/P (MAP) Pulse Ox O2 O2 Flow FiO2 Time Delivery Rate 01/02/19 58 20 122/68 100 06:45 (86) 01/02/19 Mechanical 06:00 Ventilator 01/02/19 40 05:10 01/02/19 97.7 04:00 Intake and Output 01/01/19 01/01/19 01/02/19 1515:00 23:00 07:00 IntakeIntake Total 641.25 ml 563.125 ml 154.625 ml OutputOutput Total 527 ml 0 ml 10 ml BalanceBalance 114.25 ml 563.125 ml 144.625 ml Results Results 24hrs Laboratory Tests Test 01/01/19 11:26 01/01/19 11:43 01/02/19 06:08 01/02/19 06:31 Bedside Glucose 118 108 64 L 241 H Test 01/02/19 06:53 01/02/19 08:02 Bedside Glucose 238 H 247 H Medications Medication Current Medications Glucose (Glutose) 15 gm Q15M PRN PO DECREASED GLUCOSE; Start 11/23/18 at 13:30 Glucose (Glutose) 22.5 gm Q15M PRN PO DECREASED GLUCOSE; Start 11/23/18 at 13:30 Dextrose (D50w Syringe) 25 ml Q15M PRN IV DECREASED GLUCOSE Last administered on 01/02/19 06:18; Admin Dose 25 ML; Start 11/23/18 at 13:30 Dextrose (D50w Syringe) 50 ml Q15M PRN IV DECREASED GLUCOSE Last administered on 12/10/18 13:14; Admin Dose 50 ML; Start 11/23/18 at 13:30 Glucagon (Glucagen) 1 mg Q15M PRN IM DECREASED GLUCOSE; Start 11/23/18 at 13:30 Glucose (Glutose) 15 gm Q15M PRN BUCCAL DECREASED GLUCOSE; Start 11/23/18 at 13:30 Albumin Human 100 ml @ 100 mls/hr DURING DIALYSIS PRN IV HYPOTENSION DURING HD Last administered on 12/28/18 08:00; Admin Dose 100 MLS/HR; Start 11/26/18 at 14:00 Collagenase (Santyl) 1 applic DAILY TOP Last administered on 01/02/19 08:03; Admin Dose 1 APPLIC; Start 12/01/18 at 16:30 Acetaminophen (Tylenol Liquid) 650 mg Q6H PRN NGT PAIN LEVEL 1-3 OR FEVER Last administered on 12/28/18 06:03; Admin Dose 650 MG; Start 12/06/18 at 09:00 Midodrine (Proamatine) 5 mg TID@09,13,17 GTB Last administered on 01/01/19 14:00; Admin Dose 5 MG; Start 12/07/18 at 09:00 Epoetin Margarito-epbx (RETACRIT(esrd)) 10,000 unit MoWeFr@1700 SC Last administered on 01/01/19 16:54; Admin Dose 10,000 UNIT; Start 12/11/18 at 17:00 Lorazepam (Ativan) 1 mg Q4H PRN IV AGITATION/ANXIETY Last administered on 12/19/18 05:41; Admin Dose 1 MG; Start 12/15/18 at 11:00 Morphine Sulfate (morphine) 1 mg Q4H PRN IV SEVERE PAIN LEVEL 7-10 Last administered on 12/19/18 03:37; Admin Dose 1 MG; Start 12/15/18 at 11:00 Metoclopramide HCl (Reglan) 5 mg Q8 IV Last administered on 01/02/19 06:18; Admin Dose 5 MG; Start 12/17/18 at 12:00 Diltiazem HCl 125 ml @ 5 mls/hr TITRATE IV ; Start 12/29/18 at 09:30 Meropenem/Sodium Chloride 50 ml @ 100 mls/hr Q12 IVPB Last administered on 01/02/19 08:02; Admin Dose 100 MLS/HR; Start 12/29/18 at 21:00 Clindamycin HCl/ Dextrose 50 ml @ 100 mls/hr Q8 IVPB Last administered on 01/02/19 06:18; Admin Dose 100 MLS/HR; Start 12/29/18 at 15:00 Levothyroxine Sodium (Synthroid) 75 mcg BEFORE BREAKFAST GTB Last administered on 01/01/19 06:34; Admin Dose 75 MCG; Start 12/30/18 at 07:00 Albuterol (Ventolin Hfa) 4 puff Q4H RESP THERAPY PRN INH WHEEZING; Start 12/30/18 at 08:00 Caspofungin 50 mg/ Sodium Chloride 250 ml @ 250 mls/hr Q24H IVPB Last administered on 01/01/19 14:00; Admin Dose 250 MLS/HR; Start 12/31/18 at 13:00 Phenylephrine HCl 250 ml @ 75 mls/hr TITRATE IV ; Start 12/30/18 at 17:00 Eye Lubricant (Akwa Oint) 1 applic Q6 BOTH EYES Last administered on 01/02/19 06:17; Admin Dose 1 APPLIC; Start 01/01/19 at 12:00 Eye Lubricant (Artificial Tears Oph) 2 drop Q6 BOTH EYES Last administered on 01/02/19 06:17; Admin Dose 2 DROP; Start 01/01/19 at 12:00 Norepinephrine 250 ml @ 1.875 mls/ hr TITRATE IV Last administered on 01/01/19 17:54; Admin Dose 3.75 MLS/HR; Start 01/01/19 at 11:30 Dextrose 1,000 ml @ 40 mls/hr Q24H IV Last administered on 01/01/19 12:13; Admin Dose 30 MLS/HR; Start 01/01/19 at 12:00 Amiodarone HCl 100 ml @ 600 mls/hr DAILY IV Last administered on 01/02/19 08:03; Admin Dose 600 MLS/HR; Start 01/01/19 at 14:00 Diagnostic Test (Pha) (Accu-Chek) 1 ea Q4 XX Last administered on 01/02/19at 08:03; Admin Dose 1 EA; Start 01/02/19 at 09:00 RENÉE SKINNER January 02, 2019 10:32
[2019-01-02] MEDS: DEXTROSE 10% 1,000 ML IV SCH ×2 (12:00→15:52)
[2019-01-02] MEDS: INSULIN ASPART [NOVOLOG] 3 ML PEN SC SCH ×3 (13:00→21:00)
[2019-01-02] MEDS: CASPOFUNGIN 50 MG in SOD CHLORIDE 0.9% 250 ML IVPB SCH (13:13)
--- NOTE | 2019-01-02 15:05 | PN ---
Date/Time of Note Date/Time of Note DATE: 01/02/19 TIME: 15:04 Assessment/Plan Lines/Catheters IV Catheter Type (from Nrsg): Mid Line Moon in Place (from Nrsg): No Assessment/Plan Assessment/Plan Respiratory failure This post tracheostomy Trach site clean Bleeding We will continue vent support Pulmonary toilet Trach care Subjective 24 Hr Interval Summary Constitutional: improved Pain Control: mild Exam/Review of Systems Vital Signs Vitals Vital Signs Date Temp Pulse Resp B/P (MAP) Pulse Ox O2 O2 Flow FiO2 Time Delivery Rate 01/02/19 40 12:00 01/02/19 97.5 53 19 105/66 100 12:00 (79) 01/02/19 Mechanical 06:00 Ventilator Intake and Output 01/01/19 01/01/19 01/02/19 1515:00 23:00 07:00 IntakeIntake Total 641.25 ml 563.125 ml 154.625 ml OutputOutput Total 527 ml 0 ml 10 ml BalanceBalance 114.25 ml 563.125 ml 144.625 ml Exam ENMT: nl external ears & nose, nl lips & teeth, nl nasal mucosa & septum, mucosa pink and moist Neck: supple, non-tender Respiratory: clear to auscultation, normal air movement Gastrointestinal: soft, nl liver, spleen, non-tender Results Result Diagram: 01/01/19 0400 01/01/19 1006 TAE PAN MD January 02, 2019 15:05
--- NOTE | 2019-01-02 15:08 | PN ---
Date/Time of Note Date/Time of Note DATE: 01/02/19 TIME: 15:06 Assessment/Plan VTE Prophylaxis Risk score (from Ns)>0 risk: 14 SCD applied (from Ns): Yes Pharmacological prophylaxis: NA/contraindicated Pharm contraindication: blood coag disorder, thrombocytopenia Lines/Catheters [facility]from [facility] Mid Line Urinary Cath still in place: No Assessment/Plan Assessment/Plan 1. Chronic renal failure on dialysis. 2. Pancytopenia. The peripheral smear has been reviewed. There are multiple races of red blood cells. No fragmentation, but there are some crenated cells. White blood cells are decreased in number. There is some toxic granulation and Dohle bodies seen. Platelets are decreased with giant platelets seen. I do feel that it is likely that the thrombocytopenia is on the basis of peripheral destruction. This may be antibody induced. The patient does have a negative KAMRYN, but have requested platelet antibodies as well as heparin-induced platelet antibodies. The patient is not presently receiving heparin, but may have been receiving heparin at her usual dialysis location. At this time, will withhold platelet transfusions unless there is active bleeding. She remains without any clinical signs of bleeding. Case discussed with Dr Hamilton and RN. Result Diagram: 01/01/19 0400 01/01/19 1006 Results 24hrs Laboratory Tests Test 01/02/19 06:08 01/02/19 06:31 01/02/19 06:53 01/02/19 08:02 Bedside Glucose 64 L 241 H 238 H 247 H Test 01/02/19 13:10 01/02/19 13:52 Bedside Glucose 42 *L 218 Subjective 24 Hr Interval Summary Free Text/Dictation Patient awake, alert responsive She denies any pain. Exam/Review of Systems Exam Vitals Vital Signs Date Temp Pulse Resp B/P (MAP) Pulse Ox O2 O2 Flow FiO2 Time Delivery Rate 01/02/19 40 12:00 01/02/19 97.5 53 19 105/66 100 12:00 (79) 01/02/19 Mechanical 06:00 Ventilator Intake and Output 01/01/19 01/01/19 01/02/19 1515:00 23:00 07:00 IntakeIntake Total 641.25 ml 563.125 ml 154.625 ml OutputOutput Total 527 ml 0 ml 10 ml BalanceBalance 114.25 ml 563.125 ml 144.625 ml Constitutional: alert, oriented Psych: no complaints Eyes: other ENMT: other Neck: other Respiratory: clear to auscultation, normal air movement Cardiovascular: regular rate and rhythm, nl pulses Extremities: normal pulses Results Results 24hrs Laboratory Tests Test 01/02/19 06:08 01/02/19 06:31 01/02/19 06:53 01/02/19 08:02 Bedside Glucose 64 L 241 H 238 H 247 H Test 01/02/19 13:10 01/02/19 13:52 Bedside Glucose 42 *L 218 Medications Medication Current Medications Glucose (Glutose) 15 gm Q15M PRN PO DECREASED GLUCOSE; Start 11/23/18 at 13:30 Glucose (Glutose) 22.5 gm Q15M PRN PO DECREASED GLUCOSE; Start 11/23/18 at 13:30 Dextrose (D50w Syringe) 25 ml Q15M PRN IV DECREASED GLUCOSE Last administered on 01/02/19at 06:18; Admin Dose 25 ML; Start 11/23/18 at 13:30 Dextrose (D50w Syringe) 50 ml Q15M PRN IV DECREASED GLUCOSE Last administered on 01/02/19 13:23; Admin Dose 50 ML; Start 11/23/18 at 13:30 Glucagon (Glucagen) 1 mg Q15M PRN IM DECREASED GLUCOSE; Start 11/23/18 at 13:30 Glucose (Glutose) 15 gm Q15M PRN BUCCAL DECREASED GLUCOSE; Start 11/23/18 at 13:30 Albumin Human 100 ml @ 100 mls/hr DURING DIALYSIS PRN IV HYPOTENSION DURING HD Last administered on 12/28/18 08:00; Admin Dose 100 MLS/HR; Start 11/26/18 at 14:00 Collagenase (Santyl) 1 applic DAILY TOP Last administered on 01/02/19 08:03; Admin Dose 1 APPLIC; Start 12/01/18 at 16:30 Acetaminophen (Tylenol Liquid) 650 mg Q6H PRN NGT PAIN LEVEL 1-3 OR FEVER Last administered on 12/28/18 06:03; Admin Dose 650 MG; Start 12/06/18 at 09:00 Midodrine (Proamatine) 5 mg TID@09,13,17 GTB Last administered on 01/01/19 14:00; Admin Dose 5 MG; Start 12/07/18 at 09:00 Epoetin Margarito-epbx (RETACRIT(esrd)) 10,000 unit MoWeFr@1700 SC Last administered on 01/01/19 16:54; Admin Dose 10,000 UNIT; Start 12/11/18 at 17:00 Lorazepam (Ativan) 1 mg Q4H PRN IV AGITATION/ANXIETY Last administered on 12/19/18 05:41; Admin Dose 1 MG; Start 12/15/18 at 11:00 Morphine Sulfate (morphine) 1 mg Q4H PRN IV SEVERE PAIN LEVEL 7-10 Last administered on 12/19/18 03:37; Admin Dose 1 MG; Start 12/15/18 at 11:00 Metoclopramide HCl (Reglan) 5 mg Q8 IV Last administered on 01/02/19 13:29; Admin Dose 5 MG; Start 12/17/18 at 12:00 Diltiazem HCl 125 ml @ 5 mls/hr TITRATE IV ; Start 12/29/18 at 09:30 Meropenem/Sodium Chloride 50 ml @ 100 mls/hr Q12 IVPB Last administered on 01/02/19 08:02; Admin Dose 100 MLS/HR; Start 12/29/18 at 21:00 Clindamycin HCl/ Dextrose 50 ml @ 100 mls/hr Q8 IVPB Last administered on 12/10 13:23; Admin Dose 100 MLS/HR; Start 12/29/18 at 15:00 Levothyroxine Sodium (Synthroid) 75 mcg BEFORE BREAKFAST GTB Last administered on 01/01/19 06:34; Admin Dose 75 MCG; Start 12/30/18 at 07:00 Albuterol (Ventolin Hfa) 4 puff Q4H RESP THERAPY PRN INH WHEEZING; Start 12/30/18 at 08:00 Caspofungin 50 mg/ Sodium Chloride 250 ml @ 250 mls/hr Q24H IVPB Last administered on 01/02/19 13:13; Admin Dose 250 MLS/HR; Start 12/31/18 at 13:00 Phenylephrine HCl 250 ml @ 75 mls/hr TITRATE IV ; Start 12/30/18 at 17:00 Eye Lubricant (Akwa Oint) 1 applic Q6 BOTH EYES Last administered on 01/02/19 13:12; Admin Dose 1 APPLIC; Start 01/01/19 at 12:00 Eye Lubricant (Artificial Tears Oph) 2 drop Q6 BOTH EYES Last administered on 01/02/19 13:12; Admin Dose 2 DROP; Start 01/01/19 at 12:00 Norepinephrine 250 ml @ 1.875 mls/ hr TITRATE IV Last administered on 01/01/19 17:54; Admin Dose 3.75 MLS/HR; Start 01/01/19 at 11:30 Dextrose 1,000 ml @ 40 mls/hr Q24H IV Last administered on 01/01/19 12:13; Admin Dose 30 MLS/HR; Start 01/01/19 at 12:00 Amiodarone HCl 100 ml @ 600 mls/hr DAILY IV Last administered on 01/02/19 08:03; Admin Dose 600 MLS/HR; Start 01/01/19 at 14:00 Diagnostic Test (Pha) (Accu-Chek) 1 ea Q4 XX Last administered on 01/02/19 13:13; Admin Dose 1 EA; Start 01/02/19 at 09:00 Insulin Aspart (Novolog Insulin Pen) NOVOLOG *MILD* ALGORI... Q4 SC ; Start 01/02/19 at 13:00 LEAH LUNDBERG MD January 02, 2019 15:08
--- NOTE | 2019-01-02 17:44 | CONS ---
Assessment/Plan Assessment/Plan Hospital Course (Demo Recall) ID PROGRESS NOTE CURRENT ABX: DAY # =>Clindamycin + Merrem + CANCIDAS 01/01/19 0400 01/01/19 1006 24H INTERVAL SUMMARY * 58 yo F -- Cachexia chronic debility -- remains Lethargic, awakens, extremely frail w/generalized weakness * Pancytopenia * INVASIVES: Right upper thigh Davie catheter, left femoral triple-lumen catheter, trach DIAGNOSTIC IMAGING * 01/01/19 CXR: Right greater than left interstitial opacities which may be on the basis of air space disease or edema. MICRO/OTHER * * 01/01/19 GT-drainage: WOUND CULTURE Preliminary Organism 1 GRAM NEGATIVE MERARY QUANTITY 1+ * 11/25/18 RESP CX (+) GERARDO ALBICANS * 11/23/2018 BCX (-) * 11/21/18 WOUND CULTURE Final Organism 1 K PNEUMO ESBL QUANTITY SCANT GROWTH . MULTI DRUG RESISTANT ORGANISM Organism 2 GERARDO ALBICANS QUANTITY SCANT GROWTH KLEB PNEUM KLEB PNEUM M.I.C. RX M.I.C. RX --------- --- --------- --- AMIKACIN 16 S CEFAZOLIN R CEFEPIME 2 S CEFOTAXIME R CIPROFLOXACIN 2 I GENTAMICIN >=16 R LEVOFLOXACIN 1 S MEROPENEM 0.094 S TOBRAMYCIN >=16 R TRIMETHOPRIM/SULFAMETHOXAZOLE >=320 R PIPERACILLIN/TAZOBACTAM 16 S * 11/21/2018 BCX == BLOOD CULTURE GRAM NEGATIVE MERARY * BLOOD CULTURE Final KLEB PNEUM KLEB PNEUM M.I.C. RX M.I.C. RX --------- --- --------- --- AMIKACIN 16 S CEFAZOLIN R CEFOTAXIME R CIPROFLOXACIN 2 I GENTAMICIN >=16 R LEVOFLOXACIN 1 S MEROPENEM 0.064 S TOBRAMYCIN >=16 R TRIMETHOPRIM/SULFAMETHOXAZOLE >=320 R PIPERACILLIN/TAZOBACTAM 16 S PHYSICAL EXAMINATION: GENERAL: Frail, cachectic, F w/hypoxic resp failure HEENT: AT, NC, anicteric NECK: Supple (+)trach == sternocleidomastoid retractions CHEST: Equal chest rise bilaterally==> Vented HEART: RRR ABDOMEN: Mild distended EXTREMITIES: Warm, dry, mild edema x4 extremities, skin tears BLExt, * multiple ecchymotic areas and bruises, left upper thigh dressing present SKIN: No rash, no diaphoresis, STG 3 sacral decubs ID ASSESSMENT 58 yo F admit with: 1. GNR SEPSIS w/hypotension -- septic shock vs hypovolemic vs combination, w/cold shock, leukopenia = RESOLVED * 11/21/18 BCX (+) Organism 1 GRAM NEGATIVE MERARY = KP-ESBL * Septic left lower extremity open wound w/hx of infected leg graft * Presumptive spontaneous bacterial peritonitis = DDX due to hx of ascites, presence of PD catheter, s/p Paracentesis prior admit to [facility] 2. Acute encephalopathy on admission: Secondary to severe hypoglycemia * Head CT negative for acute findings 3. Hypercapnic respiratory failure => Supplemental O2 + BiPAP PRN * Pulmonary edema, possible HCAP * 11/21/18 CXR: IMPRESSION:1. Changes are again seen suggesting pulmonary congestion/edema with small to moderate effusions and atelectasis or other consolidation. 4. Left lower extremity wound and pitting edema= PAD s/p bypass graft SEP 2018 * 11/21/18 WOUND CULTURE Final Organism 1 K PNEUMO ESBL QUANTITY SCANT GROWTH . MULTI DRUG RESISTANT ORGANISM Organism 2 GERARDO ALBICANS * s/p recent admission for 2 weeks at [facility], where she had procedure. * Venous study was negative for DVT here [facility] on admission 5. ESRD: Nephrology consulted == HD 6. Hx of chronic peritoneal dialysis w/indwelling PD catheter that is currently not being removed because of the severe thrombocytopenia. * PLAN PER NOTES: This can be addressed at [facility] where she usually gets her care 7. Ascites: Status post paracentesis about 5 weeks ago with removal of 4.5 L * At risk SBP due to ascites and indwelling PD catheter 8. Hypertension: 9. Pacemaker post implant status 10. Pancytopenia: Patient had workup here during recent hospitalization. 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 Hypothyroidism-> Synthroid on board 12. Failure to thrive: Patient with weight loss protein sharron malnutrition 13. STG 3 SACRAL DECUB = POA 14. S/P B mastoiditis and acute sinusitis per CT=> TREATED W/ABX (-)MRSA Nares ABX ALLERGIES: PCN/Vanco IV INVASIVES: Right upper thigh Davie catheter, left femoral triple-lumen catheter, endotracheal tube, orogastric tube, midline CURRENT ABX: DAY # Clindamycin + Merrem + CANCIDAS ID RECOMMENDATIONS/PLAN: 1. Remains on current ABX for persistent sepsis and suspicion of infected lower extremity bypass graft 2. Chem code status noted . Consultation Date/Type/Reason Admit Date/Time Nov 21, 2018 at 04:53 Initial Consult Date Requesting Provider: RENÉE SKINNER Date/Time of Note DATE: 01/02/19 TIME: 17:35 Exam/Review of Systems Exam Vitals Vital Signs Date Temp Pulse Resp B/P (MAP) Pulse Ox O2 O2 Flow FiO2 Time Delivery Rate 01/02/19 52 16:00 01/02/19 97.5 18 95/57 (70) 100 16:00 01/02/19 40 15:30 01/02/19 Mechanical 06:00 Ventilator Intake and Output 01/01/19 01/01/19 01/02/19 1515:00 23:00 07:00 IntakeIntake Total 641.25 ml 563.125 ml 154.625 ml OutputOutput Total 527 ml 0 ml 10 ml BalanceBalance 114.25 ml 563.125 ml 144.625 ml Results Result Diagram: 01/01/19 0400 01/01/19 1006 Results 24hrs Laboratory Tests Test 01/02/19 06:08 01/02/19 06:31 01/02/19 06:53 01/02/19 08:02 Bedside Glucose 64 L 241 H 238 H 247 H Test 01/02/19 13:10 01/02/19 13:52 Bedside Glucose 42 *L 218 Medications Medication Current Medications Glucose (Glutose) 15 gm Q15M PRN PO DECREASED GLUCOSE; Start 11/23/18 at 13:30 Glucose (Glutose) 22.5 gm Q15M PRN PO DECREASED GLUCOSE; Start 11/23/18 at 13:30 Dextrose (D50w Syringe) 25 ml Q15M PRN IV DECREASED GLUCOSE Last administered on 01/02/19 06:18; Admin Dose 25 ML; Start 11/23/18 at 13:30 Dextrose (D50w Syringe) 50 ml Q15M PRN IV DECREASED GLUCOSE Last administered on 01/02/19 13:23; Admin Dose 50 ML; Start 11/23/18 at 13:30 Glucagon (Glucagen) 1 mg Q15M PRN IM DECREASED GLUCOSE; Start 11/23/18 at 13:30 Glucose (Glutose) 15 gm Q15M PRN BUCCAL DECREASED GLUCOSE; Start 11/23/18 at 13:30 Albumin Human 100 ml @ 100 mls/hr DURING DIALYSIS PRN IV HYPOTENSION DURING HD Last administered on 12/28/18 08:00; Admin Dose 100 MLS/HR; Start 11/26/18 at 14:00 Collagenase (Santyl) 1 applic DAILY TOP Last administered on 01/02/19 08:03; Admin Dose 1 APPLIC; Start 12/01/18 at 16:30 Acetaminophen (Tylenol Liquid) 650 mg Q6H PRN NGT PAIN LEVEL 1-3 OR FEVER Last administered on 12/28/18 06:03; Admin Dose 650 MG; Start 12/06/18 at 09:00 Midodrine (Proamatine) 5 mg TID@09,13,17 GTB Last administered on 01/01/19 14: 00; Admin Dose 5 MG; Start 12/07/18 at 09:00 Epoetin Margarito-epbx (RETACRIT(esrd)) 10,000 unit MoWeFr@1700 SC Last administered on 01/01/19 16:54; Admin Dose 10,000 UNIT; Start 12/11/18 at 17:00 Lorazepam (Ativan) 1 mg Q4H PRN IV AGITATION/ANXIETY Last administered on 12/19/18 05:41; Admin Dose 1 MG; Start 12/15/18 at 11:00 Morphine Sulfate (morphine) 1 mg Q4H PRN IV SEVERE PAIN LEVEL 7-10 Last ad ministered on 12/19/18 03:37; Admin Dose 1 MG; Start 12/15/18 at 11:00 Metoclopramide HCl (Reglan) 5 mg Q8 IV Last administered on 01/02/19 13:29; Admin Dose 5 MG; Start 12/17/18 at 12:00 Diltiazem HCl 125 ml @ 5 mls/hr TITRATE IV ; Start 12/29/18 at 09:30 Meropenem/Sodium Chloride 50 ml @ 100 mls/hr Q12 IVPB Last administered on 01/02/19 08:02; Admin Dose 100 MLS/HR; Start 12/29/18 at 21:00 Clindamycin HCl/ Dextrose 50 ml @ 100 mls/hr Q8 IVPB Last administered on 01/02/19 13:23; Admin Dose 100 MLS/HR; Start 12/29/18 at 15:00 Levothyroxine Sodium (Synthroid) 75 mcg BEFORE BREAKFAST GTB Last administered on 01/01/19 06:34; Admin Dose 75 MCG; Start 12/30/18 at 07:00 Albuterol (Ventolin Hfa) 4 puff Q4H RESP THERAPY PRN INH WHEEZING; Start 12/30/18 at 08:00 Caspofungin 50 mg/ Sodium Chloride 250 ml @ 250 mls/hr Q24H IVPB Last administered on 01/02/19 13:13; Admin Dose 250 MLS/HR; Start 12/31/18 at 13:00 Phenylephrine HCl 250 ml @ 75 mls/hr TITRATE IV ; Start 12/30/18 at 17:00 Eye Lubricant (Akwa Oint) 1 applic Q6 BOTH EYES Last administered on 01/02/19 13:12; Admin Dose 1 APPLIC; Start 01/01/19 at 12:00 Eye Lubricant (Artificial Tears Oph) 2 drop Q6 BOTH EYES Last administered on 01/02/19 13:12; Admin Dose 2 DROP; Start 01/01/19 at 12:00 Norepinephrine 250 ml @ 1.875 mls/ hr TITRATE IV Last administered on 01/01/19 17:54; Admin Dose 3.75 MLS/HR; Start 01/01/19 at 11:30 Dextrose 1,000 ml @ 40 mls/hr Q24H IV Last administered on 5/25/19at 15:52; Admin Dose 40 MLS/HR; Start 01/01/19 at 12:00 Amiodarone HCl 100 ml @ 600 mls/hr DAILY IV Last administered on 01/02/19at 08:03; Admin Dose 600 MLS/HR; Start 01/01/19 at 14:00 Diagnostic Test (Pha) (Accu-Chek) 1 ea Q4 XX Last administered on 01/02/19at 13:13; Admin Dose 1 EA; Start 01/02/19 at 09:00 Insulin Aspart (Novolog Insulin Pen) NOVOLOG *MILD* ALGORI... Q4 SC ; Start 01/02/19 at 13:00 MARCO LOZADA NP January 02, 2019 17:44
[2019-01-03] VITALS (102 sets, daily range): BP systolic 57–151; BP diastolic 41–101; PULSE 50–130; RESP 16–25
[2019-01-03] MEDS: OCULAR LUBRICANT 3.5 GM OPH OINT BOTH EYES SCH ×4 (00:51→17:52)
[2019-01-03] MEDS: ARTIFICIAL TEARS 15 ML OPH BOTH EYES SCH ×4 (00:51→17:51)
[2019-01-03] MEDS: INSULIN ASPART [NOVOLOG] 3 ML PEN SC SCH ×6 (01:00→21:00)
[2019-01-03] MEDS: ACCU-CHEK XX SCH ×6 (01:07→21:00)
[2019-01-03] MEDS ORDERED: ACCU-CHEK XX SCH (02:00)
[2019-01-03] MEDS: CLINDAMYCIN 600 MG/D5W (PMX) 50 ML IVPB SCH ×2 (05:48→15:32)
[2019-01-03] MEDS: METOCLOPRAMIDE 10 MG INJ IV SCH ×3 (05:49→21:41)
[2019-01-03] MEDS: LEVOTHYROXINE 75 MCG TAB GTB SCH (06:24)
[2019-01-03] MEDS: DEXTROSE 50% 50 ML SYRINGE IV PRN ×2 (08:04→18:00)
[2019-01-03] MEDS: AMIODARONE 150MG/D5W BOLUS 100 ML IV SCH (08:08)
[2019-01-03] MEDS: MIDODRINE 5 MG TAB GTB SCH ×3 (08:20→17:00)
[2019-01-03] MEDS: MEROPENEM 500MG/50 ML (PMX) 50 ML IVPB SCH (08:21)
--- NOTE | 2019-01-03 09:06 | CONS ---
Assessment/Plan Assessment/Plan Assessment/Plan (Daily) Ventilator setting; AC of 18, tidal volume 400, PEEP of 5, 30% FiO2. Assessment recommendations; 1. Patient admitted with severe bilateral pneumonia status post tracheostomy and PEG tube placement. There has been interval improvement in ABGs significantly. 2. PEG tube malfunction. 3. History of cardiac arrhythmia. Status post pacemaker placement in the past. 4. Severely emaciated state. 5. End-stage renal disease, on hemodialysis. 6. History of hypothyroidism. 7. Anemia and very severe thrombocytopenia. Continue current supportive care. Platelet transfusion recommendation per kimberly tologist. Patient to be started on TPN. PEG tube will need to be replaced. Prognosis remains poor. I did have a detailed discussion with the patient's family at bedside and answered all their questions. Consultation Date/Type/Reason Admit Date/Time Nov 21, 2018 at 04:53 Initial Consult Date Type of Consult Pulmonary Requesting Provider: RENÉE SKINNER Date/Time of Note DATE: 01/03/19 TIME: 09:03 24 HR Interval Summary Free Text/Dictation Patient's condition is critical. Patient however remains completely awake and alert. Has been off Levophed. General exam; middle-aged female, appears severely macerated, on ventilator via tracheostomy, currently in no distress. Exam/Review of Systems Exam Vitals Vital Signs Date Temp Pulse Resp B/P (MAP) Pulse Ox O2 O2 Flow FiO2 Time Delivery Rate 01/03/19 51 19 116/68 100 06:45 (84) 01/03/19 Mechanical 05:00 Ventilator 01/03/19 40 04:50 01/03/19 97.2 04:00 Intake and Output 01/02/19 01/02/19 01/03/19 1515:00 23:00 07:00 IntakeIntake Total 405.675 ml 608.75 ml 13.25 ml OutputOutput Total 0 ml 20 ml 0 ml BalanceBalance 405.675 ml 588.75 ml 13.25 ml Exam H EENT exam; supple neck, no JVD. No lymphadenopathy. Midline trachea. No thyromegaly. Tracheostomy in place. Patient has fair dentition. No neck masses. Chest exam; diminished breath sounds bilaterally. S1-S2 audible, no murmurs. Pacemaker in left chest wall. There are extensive ecchymosis involving chest wall. Abdomen exam; scaphoid. PEG tube in place. Bowel sounds are audible. No organomegaly. Abdomen is nondistended. Extremity exam; no peripheral edema clubbing. Again, extensive ecchymosis are present. 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 Results Result Diagram: 01/03/19 0430 01/03/19 0430 Results 24hrs Laboratory Tests Test 01/02/19 13:10 01/02/19 13:52 01/02/19 18:11 01/02/19 18:14 Bedside Glucose 42 *L 218 31 *L 123 Test 01/02/19 21:59 01/03/19 00:58 01/03/19 04:30 01/03/19 05:40 Bedside Glucose 102 103 109 White Blood Count 3.7 #L Red Blood Count 2.68 L Hemoglobin 7.9 L Hematocrit 22.4 L Mean Corpuscular 83.6 Volume Mean Corpuscular 29.5 Hemoglobin Mean Corpuscular 35.3 Hemoglobin Concent Red Cell 14.5 Distribution Width Platelet Count 4 #*L Mean Platelet Volume Immature 0.500 H Granulocytes % Neutrophils % Segmented 58 Neutrophils % (Manual) Band Neutrophils % 18 H (Manual) Lymphocytes % Lymphocytes % 24 (Manual) Monocytes % Eosinophils % Basophils % Nucleated Red 0.0 Blood Cells % Immature 0.020 Granulocytes # Neutrophils # Neutrophils # 2.2 (Manual) Band Neutrophils # 0.6 Lymphocytes 0.8 (Manual) Lymphocytes # Monocytes # Eosinophils # Basophils # Nucleated Red Blood Cells # Toxic Granulation 2+ Platelet Estimate SIG DECREASED Giant Platelets 8 H Poikilocytosis 3+ Anisocytosis 1+ Macrocytosis 1+ Target Cells 1+ Sodium Level 132 L Potassium Level 4.3 Chloride Level 99 Carbon Dioxide 22 Level Anion Gap 11 Blood Urea 95 H Nitrogen Creatinine 0.85 Est Glomerular > 60 Filtrat Rate mL/min Glucose Level 102 # Calcium Level 7.6 L Test 01/03/19 07:50 01/03/19 07:59 01/03/19 08:28 01/03/19 08:38 Lactic Acid Level 1.8 Bedside Glucose 58 L 245 H 209 Medications Medication Current Medications Glucose (Glutose) 15 gm Q15M PRN PO DECREASED GLUCOSE; Start 11/23/18 at 13:30 Glucose (Glutose) 22.5 gm Q15M PRN PO DECREASED GLUCOSE; Start 11/23/18 at 13:30 Dextrose (D50w Syringe) 25 ml Q15M PRN IV DECREASED GLUCOSE Last administered on 01/03/19 08:04; Admin Dose 25 ML; Start 11/23/18 at 13:30 Dextrose (D50w Syringe) 50 ml Q15M PRN IV DECREASED GLUCOSE Last administered on 01/02/19 13:23; Admin Dose 50 ML; Start 11/23/18 at 13:30 Glucagon (Glucagen) 1 mg Q15M PRN IM DECREASED GLUCOSE; Start 11/23/18 at 13:30 Glucose (Glutose) 15 gm Q15M PRN BUCCAL DECREASED GLUCOSE; Start 11/23/18 at 13:30 Albumin Human 100 ml @ 100 mls/hr DURING DIALYSIS PRN IV HYPOTENSION DURING HD Last administered on 12/28/18 08:00; Admin Dose 100 MLS/HR; Start 11/26/18 at 14:00 Collagenase (Santyl) 1 applic DAILY TOP Last administered on 01/02/19 08:03; Admin Dose 1 APPLIC; Start 12/01/18 at 16:30 Acetaminophen (Tylenol Liquid) 650 mg Q6H PRN NGT PAIN LEVEL 1-3 OR FEVER Last administered on 12/28/18 06:03; Admin Dose 650 MG; Start 12/06/18 at 09:00 Midodrine (Proamatine) 5 mg TID@09,13,17 GTB Last administered on 01/01/19 14:00; Admin Dose 5 MG; Start 12/07/18 at 09:00 Epoetin Margarito-epbx (RETACRIT(esrd)) 10,000 unit MoWeFr@1700 SC Last administered on 01/01/19 16:54; Admin Dose 10,000 UNIT; Start 12/11/18 at 17:00 Lorazepam (Ativan) 1 mg Q4H PRN IV AGITATION/ANXIETY Last administered on 12/19/18 05:41; Admin Dose 1 MG; Start 12/15/18 at 11:00 Morphine Sulfate (morphine) 1 mg Q4H PRN IV SEVERE PAIN LEVEL 7-10 Last administered on 12/19/18 03:37; Admin Dose 1 MG; Start 12/15/18 at 11:00 Metoclopramide HCl (Reglan) 5 mg Q8 IV Last administered on 01/03/19 05:49; Admin Dose 5 MG; Start 12/17/18 at 12:00 Diltiazem HCl 125 ml @ 5 mls/hr TITRATE IV ; Start 12/29/18 at 09:30 Meropenem/Sodium Chloride 50 ml @ 100 mls/hr Q12 IVPB Last administered on 01/03/19 08:21; Admin Dose 100 MLS/HR; Start 12/29/18 at 21:00 Clindamycin HCl/ Dextrose 50 ml @ 100 mls/hr Q8 IVPB Last administered on 01/03/19 05:48; Admin Dose 100 MLS/HR; Start 12/29/18 at 15:00 Levothyroxine Sodium (Synthroid) 75 mcg BEFORE BREAKFAST GTB Last administered on 01/01/19 06:34; Admin Dose 75 MCG; Start 12/30/18 at 07:00 Albuterol (Ventolin Hfa) 4 puff Q4H RESP THERAPY PRN INH WHEEZING; Start 12/30/18 at 08:00 Caspofungin 50 mg/ Sodium Chloride 250 ml @ 250 mls/hr Q24H IVPB Last administered on 01/02/19 13:13; Admin Dose 250 MLS/HR; Start 12/31/18 at 13:00 Phenylephrine HCl 250 ml @ 75 mls/hr TITRATE IV ; Start 12/30/18 at 17:00 Eye Lubricant (Akwa Oint) 1 applic Q6 BOTH EYES Last administered on 01/03/19 05:49; Admin Dose 1 APPLIC; Start 01/01/19 at 12:00 Eye Lubricant (Artificial Tears Oph) 2 drop Q6 BOTH EYES Last administered on 01/03/19 05:49; Admin Dose 2 DROP; Start 01/01/19 at 12:00 Norepinephrine 250 ml @ 1.875 mls/ hr TITRATE IV Last administered on 01/01/19 17:54; Admin Dose 3.75 MLS/HR; Start 01/01/19 at 11:30 Dextrose 1,000 ml @ 40 mls/hr Q24H IV Last administered on 01/02/19 15:52; Admin Dose 40 MLS/HR; Start 01/01/19 at 12:00 Amiodarone HCl 100 ml @ 600 mls/hr DAILY IV Last administered on 5/25/19at 08:03; Admin Dose 600 MLS/HR; Start 01/01/19 at 14:00 Diagnostic Test (Pha) (Accu-Chek) 1 ea Q4 XX Last administered on 01/03/19at 05:49; Admin Dose 1 EA; Start 01/02/19 at 09:00 Insulin Aspart (Novolog Insulin Pen) NOVOLOG *MILD* ALGORI... Q4 SC ; Start 01/02/19 at 13:00 MARIAN KUMAR January 03, 2019 09:06
--- NOTE | 2019-01-03 09:09 | PN ---
DATE: 01/03/2019 SUBJECTIVE: The patient is stable. No events overnight. VITAL SIGNS: Blood pressure is 160/68, respiration 19, pulse 51, temperature 98.6. HEENT: Head is normocephalic. NECK: Supple. HEART: Regular rate. LUNGS: Show diminished breath sounds at the base. ABDOMEN: Soft, nontender to palpation without rebound or guarding. EXTREMITIES: Negative for clubbing, cyanosis, no edema. DERMATOLOGIC: No rashes. MUSCULOSKELETAL: No joint effusions. NEUROLOGIC: No change in exam. MEDICATIONS: The patient's medications have been reviewed. LABORATORY DATA: Has been reviewed. ASSESSMENT AND PLAN: 1. End-stage renal disease. Plan for dialysis today. We will dialyze 3 hours 2k bath, calcium 2.5. 2. Anemia. The patient is status post blood transfusion. Continue to monitor hemoglobin and hemato crit. Continue Epogen. 3. Volume overload, diffuse anasarca. Continue ultrafiltration dialysis. 4. Mineral bone disorder. Monitor calcium and phosphorus levels. 5. Ventilatory-dependent respiratory failure. Vent settings have been reviewed. Continue to monito r. 6. Severe sepsis, status post shock. Continue medical management. Continue antibiotic therapy. 7. Thrombocytopenia. Continue to monitor. Followup with hematology. 8. Dysphagia. Continue to monitor. 9. Sinus arrhythmia. Continue amiodarone. 10. Lower extremity wounds. 11. Status post cardiopulmonary arrest. Dictated By: SARIKA JOINER DO NR/NTS Conf#: [id number] DID#: [id number] CC: MANDY BATES MD; LORRAINE JOHNSON MD; RENÉE SKINNER;*EndCC*
--- NOTE | 2019-01-03 09:15 | PN ---
Date/Time of Note Date/Time of Note DATE: 01/03/19 TIME: 09:06 Assessment/Plan VTE Prophylaxis Risk score (from Ns)>0 risk: 7 SCD applied (from Ns): Yes Pharmacological prophylaxis: NA/contraindicated Pharm contraindication: thrombocytopenia Lines/Catheters IV [facility]ter [facility] (from [facility] Mid Line Urinary Cath still in place: No Assessment/Plan Hospital Course S: Patient still on pressor support, no acute events overnight. Found with platelets of 4 this morning, no bleeding. O: VS- see below PE: On MV via trach, minimally interactive Chronically ill appearing, cachectic Lungs clear Still some distended belly, G tube in place Mild peripheral edema present LUE wound wrapped A/P: 58 yo female with ESRD, questionable cirrhosis, DMII presents with hypogly cemia, leg infection. Suffered cardiac and respiratory arrest, recovered with good neurologic status however was unable to be weaned from mechanical ventilation and is now s/p trach and PEG. # Chronic respiratory failure: Treated for pneumonia earlier this admission as well as respiratory failure, status post trach placement earlier this admission as well. -Continue MV per pulm via trach, follow pulmonary recommendations, current antifungal and antibacterial medications -Continue to wean steroids off over the next few days -For the hypotension, continue pressor support and wean off as tolerated if possible -For leaking G-tube, per GI team they want culture of the leakage fluid which has been obtained, they are recommending possible G-tube replacement/repair/exchange once the platelets have improved (although again doubtful it will). Also TPN was mentioned as a possibility, however not likely patient could tolerate new access placement(ie: PICC) for this -for now continue D5 fluids. # Left lower extremity wound: Per ID team there is also concern of a possible infected graft. Blood cultures from last month as well as wound culture from last month positive for Klebsiella, patient presently on ertapenem as well as fluconazole. -Continue antibiotics indefinitely per ID # ESRD -For now continue HD per nephrology # Hypothyroidism: - Continue Synthroid # Anemia of CKD: Also thrombocytopenia, prior diagnosis of this secondary to HIT. 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 Per heme-onc this is likely a consumptive process occurring but resolution of her other problems would be the solution. Also lupus anticoagulant is being ordered -Monitor CBC for now, follow-up further hematology oncology recommendations -Follow-up further labs ordered per hematology oncology team, status post IVIG administration 2 days ago as well # Prophylaxis: SCDs Dispo: Again still in intensive care unit the last 6 days. As mentioned above bioethics meeting held 5 days ago, family was present during the meeting as well. Family agreed to chemical code only after bioethics meeting. Family is aware patient has very poor prognosis at this point in time. Critical care time spent on patient care today equals 40 minutes. Result Diagram: 01/03/19 0430 01/03/19 0430 Results 24hrs Laboratory Tests Test 01/02/19 13:10 01/02/19 13:52 01/02/19 18:11 01/02/19 18:14 Bedside Glucose 42 *L 218 31 *L 123 Test 01/02/19 21:59 01/03/19 00:58 01/03/19 04:30 01/03/19 05:40 Bedside Glucose 102 103 109 White Blood Count 3.7 #L Red Blood Count 2.68 L Hemoglobin 7.9 L Hematocrit 22.4 L Mean Corpuscular 83.6 Volume Mean Corpuscular 29.5 Hemoglobin Mean Corpuscular 35.3 Hemoglobin Concent Red Cell 14.5 Distribution Width Platelet Count 4 #*L Mean Platelet Volume Immature 0.500 H Granulocytes % Neutrophils % Segmented 58 Neutrophils % (Manual) Band Neutrophils % 18 H (Manual) Lymphocytes % Lymphocytes % 24 (Manual) Monocytes % Eosinophils % Basophils % Nucleated Red 0.0 Blood Cells % Immature 0.020 Granulocytes # Neutrophils # Neutrophils # 2.2 (Manual) Band Neutrophils # 0.6 Lymphocytes 0.8 (Manual) Lymphocytes # Monocytes # Eosinophils # Basophils # Nucleated Red Blood Cells # Toxic Granulation 2+ Platelet Estimate SIG DECREASED Giant Platelets 8 H Poikilocytosis 3+ Anisocytosis 1+ Macrocytosis 1+ Target Cells 1+ Sodium Level 132 L Potassium Level 4.3 Chloride Level 99 Carbon Dioxide 22 Level Anion Gap 11 Blood Urea 95 H Nitrogen Creatinine 0.85 Est Glomerular > 60 Filtrat Rate mL/min Glucose Level 102 # Calcium Level 7.6 L Test 01/03/19 07:50 01/03/19 07:59 01/03/19 08:28 01/03/19 08:38 Lactic Acid Level 1.8 Bedside Glucose 58 L 245 H 209 Exam/Review of Systems Exam Vitals Vital Signs Date Temp Pulse Resp B/P (MAP) Pulse Ox O2 O2 Flow FiO2 Time Delivery Rate 01/03/19 51 19 116/68 100 06:45 (84) 01/03/19 Mechanical 05:00 Ventilator 01/03/19 40 04:50 01/03/19 97.2 04:00 Intake and Output 01/02/19 01/02/19 01/03/19 1414:59 22:59 06:59 IntakeIntake Total 407.475 ml 605 ml 17.00 ml OutputOutput Total 0 ml 20 ml 0 ml BalanceBalance 407.475 ml 585 ml 17.00 ml Results Results 24hrs Laboratory Tests Test 01/02/19 13:10 01/02/19 13:52 01/02/19 18:11 01/02/19 18:14 Bedside Glucose 42 *L 218 31 *L 123 Test 01/02/19 21:59 01/03/19 00:58 01/03/19 04:30 01/03/19 05:40 Bedside Glucose 102 103 109 White Blood Count 3.7 #L Red Blood Count 2.68 L Hemoglobin 7.9 L Hematocrit 22.4 L Mean Corpuscular 83.6 Volume Mean Corpuscular 29.5 Hemoglobin Mean Corpuscular 35.3 Hemoglobin Concent Red Cell 14.5 Distribution Width Platelet Count 4 #*L Mean Platelet Volume Immature 0.500 H Granulocytes % Neutrophils % Segmented 58 Neutrophils % (Manual) Band Neutrophils % 18 H (Manual) Lymphocytes % Lymphocytes % 24 (Manual) Monocytes % Eosinophils % Basophils % Nucleated Red 0.0 Blood Cells % Immature 0.020 Granulocytes # Neutrophils # Neutrophils # 2.2 (Manual) Band Neutrophils # 0.6 Lymphocytes 0.8 (Manual) Lymphocytes # Monocytes # Eosinophils # Basophils # Nucleated Red Blood Cells # Toxic Granulation 2+ Platelet Estimate SIG DECREASED Giant Platelets 8 H Poikilocytosis 3+ Anisocytosis 1+ Macrocytosis 1+ Target Cells 1+ Sodium Level 132 L Potassium Level 4.3 Chloride Level 99 Carbon Dioxide 22 Level Anion Gap 11 Blood Urea 95 H Nitrogen Creatinine 0.85 Est Glomerular > 60 Filtrat Rate mL/min Glucose Level 102 # Calcium Level 7.6 L Test 01/03/19 07:50 01/03/19 07:59 01/03/19 08:28 01/03/19 08:38 Lactic Acid Level 1.8 Bedside Glucose 58 L 245 H 209 Medications Medication Current Medications Glucose (Glutose) 15 gm Q15M PRN PO DECREASED GLUCOSE; Start 11/23/18 at 13:30 Glucose (Glutose) 22.5 gm Q15M PRN PO DECREASED GLUCOSE; Start 11/23/18 at 13:30 Dextrose (D50w Syringe) 25 ml Q15M PRN IV DECREASED GLUCOSE Last administered on 01/03/19 08:04; Admin Dose 25 ML; Start 11/23/18 at 13:30 Dextrose (D50w Syringe) 50 ml Q15M PRN IV DECREASED GLUCOSE Last administered on 01/02/19 13:23; Admin Dose 50 ML; Start 11/23/18 at 13:30 Glucagon (Glucagen) 1 mg Q15M PRN IM DECREASED GLUCOSE; Start 11/23/18 at 13:30 Glucose (Glutose) 15 gm Q15M PRN BUCCAL DECREASED GLUCOSE; Start 11/23/18 at 13:30 Albumin Human 100 ml @ 100 mls/hr DURING DIALYSIS PRN IV HYPOTENSION DURING HD Last administered on 12/28/18 08:00; Admin Dose 100 MLS/HR; Start 11/26/18 at 14:00 Collagenase (Santyl) 1 applic DAILY TOP Last administered on 01/02/19 08:03; Admin Dose 1 APPLIC; Start 12/01/18 at 16:30 Acetaminophen (Tylenol Liquid) 650 mg Q6H PRN NGT PAIN LEVEL 1-3 OR FEVER Last administered on 12/28/18 06:03; Admin Dose 650 MG; Start 12/06/18 at 09:00 Midodrine (Proamatine) 5 mg TID@09,13,17 GTB Last administered on 01/01/19 14:00; Admin Dose 5 MG; Start 12/07/18 at 09:00 Epoetin Margarito-epbx (RETACRIT(esrd)) 10,000 unit MoWeFr@1700 SC Last administered on 01/01/19 16:54; Admin Dose 10,000 UNIT; Start 12/11/18 at 17:00 Lorazepam (Ativan) 1 mg Q4H PRN IV AGITATION/ANXIETY Last administered on 12/19/18 05:41; Admin Dose 1 MG; Start 12/15/18 at 11:00 Morphine Sulfate (morphine) 1 mg Q4H PRN IV SEVERE PAIN LEVEL 7-10 Last administered on 12/19/18 03:37; Admin Dose 1 MG; Start 12/15/18 at 11:00 Metoclopramide HCl (Reglan) 5 mg Q8 IV Last administered on 01/03/19 05:49; Admin Dose 5 MG; Start 12/17/18 at 12:00 Diltiazem HCl 125 ml @ 5 mls/hr TITRATE IV ; Start 12/29/18 at 09:30 Meropenem/Sodium Chloride 50 ml @ 100 mls/hr Q12 IVPB Last administered on 01/03/19 08:21; Admin Dose 100 MLS/HR; Start 12/29/18 at 21:00 Clindamycin HCl/ Dextrose 50 ml @ 100 mls/hr Q8 IVPB Last administered on 01/03/19 05:48; Admin Dose 100 MLS/HR; Start 12/29/18 at 15:00 Levothyroxine Sodium (Synthroid) 75 mcg BEFORE BREAKFAST GTB Last administered on 01/01/19 06:34; Admin Dose 75 MCG; Start 12/30/18 at 07:00 Albuterol (Ventolin Hfa) 4 puff Q4H RESP THERAPY PRN INH WHEEZING; Start 12/30/18 at 08:00 Caspofungin 50 mg/ Sodium Chloride 250 ml @ 250 mls/hr Q24H IVPB Last administered on 01/02/19 13:13; Admin Dose 250 MLS/HR; Start 12/31/18 at 13:00 Phenylephrine HCl 250 ml @ 75 mls/hr TITRATE IV ; Start 12/30/18 at 17:00 Eye Lubricant (Akwa Oint) 1 applic Q6 BOTH EYES Last administered on 01/03/19 05:49; Admin Dose 1 APPLIC; Start 01/01/19 at 12:00 Eye Lubricant (Artificial Tears Oph) 2 drop Q6 BOTH EYES Last administered on 01/03/19 05:49; Admin Dose 2 DROP; Start 01/01/19 at 12:00 Norepinephrine 250 ml @ 1.875 mls/ hr TITRATE IV Last administered on 17:54; Admin Dose 3.75 MLS/HR; Start 01/01/19 at 11:30 Dextrose 1,000 ml @ 40 mls/hr Q24H IV Last administered on 01/02/19at 15:52; Admin Dose 40 MLS/HR; Start 01/01/19 at 12:00 Amiodarone HCl 100 ml @ 600 mls/hr DAILY IV Last administered on 01/02/19at 08:03; Admin Dose 600 MLS/HR; Start 01/01/19 at 14:00 Diagnostic Test (Pha) (Accu-Chek) 1 ea Q4 XX Last administered on 01/03/19at 05:49; Admin Dose 1 EA; Start 01/02/19 at 09:00 Insulin Aspart (Novolog Insulin Pen) NOVOLOG *MILD* ALGORI... Q4 SC ; Start 01/02/19 at 13:00 RENÉE SKINNER January 03, 2019 09:14
--- NOTE | 2019-01-03 10:27 | CONS ---
Assessment/Plan Assessment/Plan Hospital Course (Demo Recall) ID PROGRESS NOTE CURRENT ABX: DAY # =>Clindamycin + Merrem + CANCIDAS 01/03/19 0430 01/03/19 0430 24H INTERVAL SUMMARY * Remains on pressors - no bleeding per RN * 58 yo F -- Cachexia chronic debility -- remains Lethargic, awakens, extremely frail w/generalized weakness * Pancytopenia * INVASIVES: Right upper thigh Davie catheter, left femoral triple-lumen catheter, trach DIAGNOSTIC IMAGING * 01/01/19 CXR: Right greater than left interstitial opacities which may be on the basis of air space disease or edema. MICRO/OTHER * * 01/01/19 GT-drainage: WOUND CULTURE Preliminary Organism 1 K.PNEUMONIAE SSP PNEUMONIAE QUANTITY 1+ Organism 2 ENTEROCOCCUS SPECIES QUANTITY 1+ * 11/25/18 RESP CX (+) GERARDO ALBICANS * 11/23/2018 BCX (-) * 11/21/18 WOUND CULTURE Final Organism 1 K PNEUMO ESBL QUANTITY SCANT GROWTH . MULTI DRUG RESISTANT ORGANISM Organism 2 GERARDO ALBICANS QUANTITY SCANT GROWTH KLEB PNEUM KLEB PNEUM M.I.C. RX M.I.C. RX --------- --- --------- --- AMIKACIN 16 S CEFAZOLIN R CEFEPIME 2 S CEFOTAXIME R CIPROFLOXACIN 2 I GENTAMICIN >=16 R LEVOFLOXACIN 1 S MEROPENEM 0.094 S TOBRAMYCIN >=16 R TRIMETHOPRIM/SULFAMETHOXAZOLE >=320 R PIPERACILLIN/TAZOBACTAM 16 S * 11/21/2018 BCX == BLOOD CULTURE GRAM NEGATIVE MERARY * BLOOD CULTURE Final KLEB PNEUM KLEB PNEUM M.I.C. RX M.I.C. RX --------- --- --------- --- AMIKACIN 16 S CEFAZOLIN R CEFOTAXIME R CIPROFLOXACIN 2 I GENTAMICIN >=16 R LEVOFLOXACIN 1 S MEROPENEM 0.064 S TOBRAMYCIN >=16 R TRIMETHOPRIM/SULFAMETHOXAZOLE >=320 R PIPERACILLIN/TAZOBACTAM 16 S PHYSICAL EXAMINATION: GENERAL: Frail, cachectic, F w/hypoxic resp failure HEENT: AT, NC, anicteric NECK: Supple (+)trach == sternocleidomastoid retractions CHEST: Equal chest rise bilaterally==> Vented HEART: RRR ABDOMEN: Mild distended EXTREMITIES: Warm, dry, mild edema x4 extremities, skin tears BLExt, * multiple ecchymotic areas and bruises, left upper thigh dressing present SKIN: No rash, no diaphoresis, STG 3 sacral decubs ID ASSESSMENT 58 yo F admit with: 1. GNR SEPSIS w/hypotension -- septic shock vs hypovolemic vs combination, w/cold shock, leukopenia = RESOLVED * 11/21/18 BCX (+) Organism 1 GRAM NEGATIVE MERARY = KP-ESBL * Septic left lower extremity open wound w/hx of infected leg graft * Presumptive spontaneous bacterial peritonitis = DDX due to hx of ascites, presence of PD catheter, s/p Paracentesis prior admit to [facility] 2. Acute encephalopathy on admission: Secondary to severe hypoglycemia * Head CT negative for acute findings 3. Hypercapnic respiratory failure => Supplemental O2 + BiPAP PRN * Pulmonary edema, possible HCAP * 11/21/18 CXR: IMPRESSION:1. Changes are again seen suggesting pulmonary congestion/edema with small to moderate effusions and atelectasis or other consolidation. 4. Left lower extremity wound and pitting edema= PAD s/p bypass graft SEP 2018 * 11/21/18 WOUND CULTURE Final Organism 1 K PNEUMO ESBL QUANTITY SCANT GROWTH . MULTI DRUG RESISTANT ORGANISM Organism 2 GERARDO ALBICANS * s/p recent admission for 2 weeks at [facility], where she had procedure. * Venous study was negative for DVT here [facility] on admission 5. ESRD: Nephrology consulted == HD 6. Hx of chronic peritoneal dialysis w/indwelling PD catheter that is currently not being removed because of the severe thrombocytopenia. * PLAN PER NOTES: This can be addressed at [facility] where she usually gets her care 7. Ascites: Status post paracentesis about 5 weeks ago with removal of 4.5 L * At risk SBP due to ascites and indwelling PD catheter 8. Hypertension: 9. Pacemaker post implant status 10. Pancytopenia: Patient had workup here during recent hospitalization. 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 Hypothyroidism-> Synthroid on board 12. Failure to thrive: Patient with weight loss protein sharron malnutrition 13. STG 3 SACRAL DECUB = POA 14. S/P B mastoiditis and acute sinusitis per CT=> TREATED W/ABX (-)MRSA Nares ABX ALLERGIES: PCN/Vanco IV INVASIVES: Right upper thigh Davie catheter, left femoral triple-lumen catheter, endotracheal tube, orogastric tube, midline CURRENT ABX: DAY # Clindamycin + Merrem + CANCIDAS ID RECOMMENDATIONS/PLAN: 1. Remains on current ABX for persistent sepsis and suspicion of infected lower extremity bypass graft 2. Chem code status noted 3. Awaiting final results GT site micro drainage . Consultation Date/Type/Reason Admit Date/Time Nov 21, 2018 at 04:53 Initial Consult Date Requesting Provider: RENÉE SKINNER Date/Time of Note DATE: 01/03/19 TIME: 10:25 Exam/Review of Systems Exam Vitals Vital Signs Date Temp Pulse Resp B/P (MAP) Pulse Ox O2 O2 Flow FiO2 Time Delivery Rate 01/03/19 40 08:00 01/03/19 51 19 116/68 100 06:45 (84) 01/03/19 Mechanical 05:00 Ventilator 01/03/19 97.2 04:00 Intake and Output 01/02/19 01/02/19 01/03/19 1515:00 23:00 07:00 IntakeIntake Total 405.675 ml 608.75 ml 13.25 ml OutputOutput Total 0 ml 20 ml 0 ml BalanceBalance 405.675 ml 588.75 ml 13.25 ml Results Result Diagram: 01/03/19 0430 01/03/19 0430 Results 24hrs Laboratory Tests Test 01/02/19 13:10 01/02/19 13:52 01/02/19 18:11 01/02/19 18:14 Bedside Glucose 42 *L 218 31 *L 123 Test 01/02/19 21:59 01/03/19 00:58 01/03/19 04:30 01/03/19 05:40 Bedside Glucose 102 103 109 White Blood Count 3.7 #L Red Blood Count 2.68 L Hemoglobin 7.9 L Hematocrit 22.4 L Mean Corpuscular 83.6 Volume Mean Corpuscular 29.5 Hemoglobin Mean Corpuscular 35.3 Hemoglobin Concent Red Cell 14.5 Distribution Width Platelet Count 4 #*L Mean Platelet Volume Immature 0.500 H Granulocytes % Neutrophils % Segmented 58 Neutrophils % (Manual) Band Neutrophils % 18 H (Manual) Lymphocytes % Lymphocytes % 24 (Manual) Monocytes % Eosinophils % Basophils % Nucleated Red 0.0 Blood Cells % Immature 0.020 Granulocytes # Neutrophils # Neutrophils # 2.2 (Manual) Band Neutrophils # 0.6 Lymphocytes 0.8 (Manual) Lymphocytes # Monocytes # Eosinophils # Basophils # Nucleated Red Blood Cells # Toxic Granulation 2+ Platelet Estimate SIG DECREASED Giant Platelets 8 H Poikilocytosis 3+ Anisocytosis 1+ Macrocytosis 1+ Target Cells 1+ Sodium Level 132 L Potassium Level 4.3 Chloride Level 99 Carbon Dioxide 22 Level Anion Gap 11 Blood Urea 95 H Nitrogen Creatinine 0.85 Est Glomerular > 60 Filtrat Rate mL/min Glucose Level 102 # Calcium Level 7.6 L Test 01/03/19 07:50 01/03/19 07:59 01/03/19 08:28 01/03/19 08:38 Lactic Acid Level 1.8 Bedside Glucose 58 L 245 H 209 Medications Medication Current Medications Glucose (Glutose) 15 gm Q15M PRN PO DECREASED GLUCOSE; Start 11/23/18 at 13:30 Glucose (Glutose) 22.5 gm Q15M PRN PO DECREASED GLUCOSE; Start 11/23/18 at 13:30 Dextrose (D50w Syringe) 25 ml Q15M PRN IV DECREASED GLUCOSE Last administered on 01/03/19at 08:04; Admin Dose 25 ML; Start 11/23/18 at 13:30 Dextrose (D50w Syringe) 50 ml Q15M PRN IV DECREASED GLUCOSE Last administered on 01/02/19at 13:23; Admin Dose 50 ML; Start 11/23/18 at 13:30 Glucagon (Glucagen) 1 mg Q15M PRN IM DECREASED GLUCOSE; Start 11/23/18 at 13:30 Glucose (Glutose) 15 gm Q15M PRN BUCCAL DECREASED GLUCOSE; Start 11/23/18 at 13:30 Albumin Human 100 ml @ 100 mls/hr DURING DIALYSIS PRN IV HYPOTENSION DURING HD Last administered on 12/28/18 08:00; Admin Dose 100 MLS/HR; Start 11/26/18 at 14:00 Collagenase (Santyl) 1 applic DAILY TOP Last administered on 01/02/19 08:03; Admin Dose 1 APPLIC; Start 12/01/18 at 16:30 Acetaminophen (Tylenol Liquid) 650 mg Q6H PRN NGT PAIN LEVEL 1-3 OR FEVER Last administered on 12/28/18 06:03; Admin Dose 650 MG; Start 12/06/18 at 09:00 Midodrine (Proamatine) 5 mg TID@,,17 GTB Last administered on 01/01/19 14:00; Admin Dose 5 MG; Start 12/07/18 at 09:00 Epoetin Margarito-epbx (RETACRIT(esrd)) 10,000 unit MoWeFr@1700 SC Last administered on 01/01/19 16:54; Admin Dose 10,000 UNIT; Start 12/11/18 at 17:00 Lorazepam (Ativan) 1 mg Q4H PRN IV AGITATION/ANXIETY Last administered on 12/19/18 05:41; Admin Dose 1 MG; Start 12/15/18 at 11:00 Morphine Sulfate (morphine) 1 mg Q4H PRN IV SEVERE PAIN LEVEL 7-10 Last administered on 12/19/18 03:37; Admin Dose 1 MG; Start 12/15/18 at 11:00 Metoclopramide HCl (Reglan) 5 mg Q8 IV Last administered on 01/03/19 05:49; Admin Dose 5 MG; Start 12/17/18 at 12:00 Diltiazem HCl 125 ml @ 5 mls/hr TITRATE IV ; Start 12/29/18 at 09:30 Meropenem/Sodium Chloride 50 ml @ 100 mls/hr Q12 IVPB Last administered on 01/03/19 08:21; Admin Dose 100 MLS/HR; Start 12/29/18 at 21:00 Clindamycin HCl/ Dextrose 50 ml @ 100 mls/hr Q8 IVPB Last administered on 01/03/19 05:48; Admin Dose 100 MLS/HR; Start 12/29/18 at 15:00 Levothyroxine Sodium (Synthroid) 75 mcg BEFORE BREAKFAST GTB Last administered on 01/01/19 06:34; Admin Dose 75 MCG; Start 12/30/18 at 07:00 Albuterol (Ventolin Hfa) 4 puff Q4H RESP THERAPY PRN INH WHEEZING; Start 12/30/18 at 08:00 Caspofungin 50 mg/ Sodium Chloride 250 ml @ 250 mls/hr Q24H IVPB Last administered on 01/02/19 13:13; Admin Dose 250 MLS/HR; Start 12/31/18 at 13:00 Phenylephrine HCl 250 ml @ 75 mls/hr TITRATE IV ; Start 12/30/18 at 17:00 Eye Lubricant (Akwa Oint) 1 applic Q6 BOTH EYES Last administered on 01/03/19 05:49; Admin Dose 1 APPLIC; Start 01/01/19 at 12:00 Eye Lubricant (Artificial Tears Oph) 2 drop Q6 BOTH EYES Last administered on 01/03/19 05:49; Admin Dose 2 DROP; Start 01/01/19 at 12:00 Norepinephrine 250 ml @ 1.875 mls/ hr TITRATE IV Last administered on 01/01/19 17:54; Admin Dose 3.75 MLS/HR; Start 01/01/19 at 11:30 Dextrose 1,000 ml @ 40 mls/hr Q24H IV Last administered on 01/02/19 15:52; Admin Dose 40 MLS/HR; Start 01/01/19 at 12:00 Amiodarone HCl 100 ml @ 600 mls/hr DAILY IV Last administered on 01/02/19 08:03; Admin Dose 600 MLS/HR; Start 01/01/19 at 14:00 Diagnostic Test (Pha) (Accu-Chek) 1 ea Q4 XX Last administered on 01/03/19 05:49; Admin Dose 1 EA; Start 01/02/19 at 09:00 Insulin Aspart (Novolog Insulin Pen) NOVOLOG *MILD* ALGORI... Q4 SC ; Start 01/02/19 at 13:00 MARCO LOZADA NP January 03, 2019 10:27
[2019-01-03] MEDS: CASPOFUNGIN 50 MG in SOD CHLORIDE 0.9% 250 ML IVPB SCH (13:31)
--- NOTE | 2019-01-03 15:30 | PN ---
Date/Time of Note Date/Time of Note DATE: 01/03/19 TIME: 15:28 Assessment/Plan VTE Prophylaxis Risk score (from [facility])>0 risk: 7 SCD applied (from [facility]): Yes Pharmacological prophylaxis: NA/contraindicated Pharm contraindication: thrombocytopenia Lines/Catheters IV [facility]ter [facility] (from [facility] Mid Line Urinary Cath still in place: No Assessment/Plan Assessment/Plan 1. Chronic renal failure on dialysis. 2. Pancytopenia. The peripheral smear has been reviewed. There are multiple races of red blood cells. No fragmentation, but there are some crenated cells. White blood cells are decreased in number. There is some toxic granulation and Dohle bodies seen. Platelets are decreased with giant platelets seen. I do feel that it is likely that the thrombocytopenia is on the basis of peripheral destruction. This may be antibody induced. The patient does have a negative KAMRYN, but have requested platelet antibodies as well as heparin-induced platelet antibodies. The patient is not presently receiving heparin, but may have been receiving heparin at her usual dialysis location. At this time, will administer platelets given count less than 8 and although not bleeding, will be at risk of spontaneous bleeding. I will order post transfusion platelet check and if not improved, as expected, then will be suggestive of possible consumptive cause If this the case, consideration to IVIG maybe given . She remains without any clinical signs of bleeding. Result Diagram: 01/03/19 0430 01/03/19 0430 Results 24hrs Laboratory Tests Test 01/02/19 18:11 01/02/19 18:14 01/02/19 21:59 01/03/19 00:58 Bedside Glucose 31 *L 123 102 103 Test 01/03/19 04:30 01/03/19 05:40 01/03/19 07:50 01/03/19 07:59 White Blood Count 3.7 #L Red Blood Count 2.68 L Hemoglobin 7.9 L Hematocrit 22.4 L Mean Corpuscular 83.6 Volume Mean Corpuscular 29.5 Hemoglobin Mean Corpuscular 35.3 Hemoglobin Concent Red Cell 14.5 Distribution Width Platelet Count 4 #*L Mean Platelet Volume Immature 0.500 H Granulocytes % Neutrophils % Segmented 58 Neutrophils % (Manual) Band Neutrophils % 18 H (Manual) Lymphocytes % Lymphocytes % 24 (Manual) Monocytes % Eosinophils % Basophils % Nucleated Red 0.0 Blood Cells % Immature 0.020 Granulocytes # Neutrophils # Neutrophils # 2.2 (Manual) Band Neutrophils # 0.6 Lymphocytes 0.8 (Manual) Lymphocytes # Monocytes # Eosinophils # Basophils # Nucleated Red Blood Cells # Toxic Granulation 2+ Platelet Estimate SIG DECREASED Giant Platelets 8 H Poikilocytosis 3+ Anisocytosis 1+ Macrocytosis 1+ Target Cells 1+ Sodium Level 132 L Potassium Level 4.3 Chloride Level 99 Carbon Dioxide 22 Level Anion Gap 11 Blood Urea 95 H Nitrogen Creatinine 0.85 Est Glomerular > 60 Filtrat Rate mL/min Glucose Level 102 # Calcium Level 7.6 L Bedside Glucose 109 58 L Lactic Acid Level 1.8 Test 01/03/19 08:28 01/03/19 08:38 01/03/19 13:36 Bedside Glucose 245 H 209 87 Subjective 24 Hr Interval Summary Free Text/Dictation Patient awake, alert responsive, but weak Family at bedside Exam/Review of Systems Exam Vitals Vital Signs Date Temp Pulse Resp B/P (MAP) Pulse Ox O2 O2 Flow FiO2 Time Delivery Rate 01/03/19 52 18 98/56 (70) 100 Mechanical 12:15 Ventilator 01/03/19 40 08:00 01/03/19 97.2 04:00 Intake and Output 01/02/19 01/02/19 01/03/19 1515:00 23:00 07:00 IntakeIntake Total 405.675 ml 608.75 ml 105.125 ml OutputOutput Total 0 ml 20 ml 0 ml BalanceBalance 405.675 ml 588.75 ml 105.125 ml Constitutional: alert, oriented, frail Eyes: nl conjunctiva, EOMI Neck: supple, non-tender Respiratory: diminished breath sounds, intercostal retraction Cardiovascular: regular rate and rhythm, nl pulses Gastrointestinal: soft, other (scaphoid, PEG tube ) Extremities: normal pulses Results Results 24hrs Laboratory Tests Test 01/02/19 18:11 01/02/19 18:14 01/02/19 21:59 01/03/19 00:58 Bedside Glucose 31 *L 123 102 103 Test 01/03/19 04:30 01/03/19 05:40 01/03/19 07:50 01/03/19 07:59 White Blood Count 3.7 #L Red Blood Count 2.68 L Hemoglobin 7.9 L Hematocrit 22.4 L Mean Corpuscular 83.6 Volume Mean Corpuscular 29.5 Hemoglobin Mean Corpuscular 35.3 Hemoglobin Concent Red Cell 14.5 Distribution Width Platelet Count 4 #*L Mean Platelet Volume Immature 0.500 H Granulocytes % Neutrophils % Segmented 58 Neutrophils % (Manual) Band Neutrophils % 18 H (Manual) Lymphocytes % Lymphocytes % 24 (Manual) Monocytes % Eosinophils % Basophils % Nucleated Red 0.0 Blood Cells % Immature 0.020 Granulocytes # Neutrophils # Neutrophils # 2.2 (Manual) Band Neutrophils # 0.6 Lymphocytes 0.8 (Manual) Lymphocytes # Monocytes # Eosinophils # Basophils # Nucleated Red Blood Cells # Toxic Granulation 2+ Platelet Estimate SIG DECREASED Giant Platelets 8 H Poikilocytosis 3+ Anisocytosis 1+ Macrocytosis 1+ Target Cells 1+ Sodium Level 132 L Potassium Level 4.3 Chloride Level 99 Carbon Dioxide 22 Level Anion Gap 11 Blood Urea 95 H Nitrogen Creatinine 0.85 Est Glomerular > 60 Filtrat Rate mL/min Glucose Level 102 # Calcium Level 7.6 L Bedside Glucose 109 58 L Lactic Acid Level 1.8 Test 01/03/19 08:28 01/03/19 08:38 01/03/19 13:36 Bedside Glucose 245 H 209 87 Medications Medication Current Medications Glucose (Glutose) 15 gm Q15M PRN PO DECREASED GLUCOSE; Start 11/23/18 at 13:30 Glucose (Glutose) 22.5 gm Q15M PRN PO DECREASED GLUCOSE; Start 11/23/18 at 13:30 Dextrose (D50w Syringe) 25 ml Q15M PRN IV DECREASED GLUCOSE Last administered on 01/03/19at 08:04; Admin Dose 25 ML; Start 11/23/18 at 13:30 Dextrose (D50w Syringe) 50 ml Q15M PRN IV DECREASED GLUCOSE Last administered on 01/02/19at 13:23; Admin Dose 50 ML; Start 11/23/18 at 13:30 Glucagon (Glucagen) 1 mg Q15M PRN IM DECREASED GLUCOSE; Start 11/23/18 at 13:30 Glucose (Glutose) 15 gm Q15M PRN BUCCAL DECREASED GLUCOSE; Start 11/23/18 at 13:30 Albumin Human 100 ml @ 100 mls/hr DURING DIALYSIS PRN IV HYPOTENSION DURING HD Last administered on 12/28/18at 08:00; Admin Dose 100 MLS/HR; Start 11/26/18 at 14:00 Collagenase (Santyl) 1 applic DAILY TOP Last administered on 01/02/19 08:03; Admin Dose 1 APPLIC; Start 12/01/18 at 16:30 Acetaminophen (Tylenol Liquid) 650 mg Q6H PRN NGT PAIN LEVEL 1-3 OR FEVER Last administered on 12/28/18 06:03; Admin Dose 650 MG; Start 12/06/18 at 09:00 Midodrine (Proamatine) 5 mg TID@09,13,17 GTB Last administered on 01/01/19 14:00; Admin Dose 5 MG; Start 12/07/18 at 09:00 Epoetin Margarito-epbx (RETACRIT(esrd)) 10,000 unit MoWeFr@1700 SC Last administered on 01/01/19 16:54; Admin Dose 10,000 UNIT; Start 12/11/18 at 17:00 Lorazepam (Ativan) 1 mg Q4H PRN IV AGITATION/ANXIETY Last administered on 12/19/18 05:41; Admin Dose 1 MG; Start 12/15/18 at 11:00 Morphine Sulfate (morphine) 1 mg Q4H PRN IV SEVERE PAIN LEVEL 7-10 Last administered on 12/19/18 03:37; Admin Dose 1 MG; Start 12/15/18 at 11:00 Metoclopramide HCl (Reglan) 5 mg Q8 IV Last administered on 01/03/19 13:33; Admin Dose 5 MG; Start 12/17/18 at 12:00 Diltiazem HCl 125 ml @ 5 mls/hr TITRATE IV ; Start 12/29/18 at 09:30 Meropenem/Sodium Chloride 50 ml @ 100 mls/hr Q12 IVPB Last administered on 01/03/19 08:21; Admin Dose 100 MLS/HR; Start 12/29/18 at 21:00 Clindamycin HCl/ Dextrose 50 ml @ 100 mls/hr Q8 IVPB Last administered on 01/03/19 05:48; Admin Dose 100 MLS/HR; Start 12/29/18 at 15:00 Levothyroxine Sodium (Synthroid) 75 mcg BEFORE BREAKFAST GTB Last administered on 01/01/19 06:34; Admin Dose 75 MCG; Start 12/30/18 at 07:00 Albuterol (Ventolin Hfa) 4 puff Q4H RESP THERAPY PRN INH WHEEZING; Start 12/30/18 at 08:00 Caspofungin 50 mg/ Sodium Chloride 250 ml @ 250 mls/hr Q24H IVPB Last administered on 01/03/19 13:31; Admin Dose 250 MLS/HR; Start 12/31/18 at 13:00 Phenylephrine HCl 250 ml @ 75 mls/hr TITRATE IV ; Start 12/30/18 at 17:00 Eye Lubricant (Akwa Oint) 1 applic Q6 BOTH EYES Last administered on 01/03/19 11:54; Admin Dose 1 APPLIC; Start 01/01/19 at 12:00 Eye Lubricant (Artificial Tears Oph) 2 drop Q6 BOTH EYES Last administered on 01/03/19 11:53; Admin Dose 2 DROP; Start 01/01/19 at 12:00 Norepinephrine 250 ml @ 1.875 mls/ hr TITRATE IV Last administered on 01/01/19 17:54; Admin Dose 3.75 MLS/HR; Start 01/01/19 at 11:30 Dextrose 1,000 ml @ 40 mls/hr Q24H IV Last administered on 01/02/19 15:52; Admin Dose 40 MLS/HR; Start 01/01/19 at 12:00 Amiodarone HCl 100 ml @ 600 mls/hr DAILY IV Last administered on 01/02/19 08:03; Admin Dose 600 MLS/HR; Start 01/01/19 at 14:00 Diagnostic Test (Pha) (Accu-Chek) 1 ea Q4 XX Last administered on 01/03/19 05:49; Admin Dose 1 EA; Start 01/02/19 at 09:00 Insulin Aspart (Novolog Insulin Pen) NOVOLOG *MILD* ALGORI... Q4 SC ; Start 01/02/19 at 13:00 LEAH LUNDBERG MD January 03, 2019 15:30
[2019-01-03] MEDS: BALSAM PERU/CASTOR OIL 60 GM TUBE TOP SCH ×2 (15:48→21:41)
[2019-01-03] MEDS: COLLAGENASE 5 GM (UD JAR) TOP SCH (15:58)
--- NOTE | 2019-01-03 16:28 | PN ---
Date/Time of Note Date/Time of Note DATE: 01/03/19 TIME: 16:28 Assessment/Plan Lines/Catheters IV Catheter Type (from Nrsg): Mid Line Moon in Place (from Nrsg): No Assessment/Plan Assessment/Plan Respiratory failure This post tracheostomy Trach site clean Bleeding We will continue vent support Pulmonary toilet Trach care Subjective 24 Hr Interval Summary Constitutional: improved Pain Control: mild Exam/Review of Systems Vital Signs Vitals Vital Signs Date Temp Pulse Resp B/P (MAP) Pulse Ox O2 O2 Flow FiO2 Time Delivery Rate 01/03/19 58 19 100 40 15:10 01/03/19 98/56 (70) Mechanical 12:15 Ventilator 01/03/19 97.2 04:00 Intake and Output 01/02/19 01/02/19 01/03/19 1515:00 23:00 07:00 IntakeIntake Total 405.675 ml 608.75 ml 105.125 ml OutputOutput Total 0 ml 20 ml 0 ml BalanceBalance 405.675 ml 588.75 ml 105.125 ml Exam Eyes: nl conjunctiva, EOMI, nl lids, nl sclera ENMT: nl external ears & nose, nl lips & teeth, nl nasal mucosa & septum, mucosa pink and moist Neck: supple, non-tender Respiratory: clear to auscultation, normal air movement Cardiovascular: regular rate and rhythm, nl pulses Musculoskeletal: nl extremities to inspection, nl gait and stance Results Result Diagram: 01/03/19 1549 01/03/19 0430 TAE PAN MD January 03, 2019 16:28
--- NOTE | 2019-01-03 17:32 | PN ---
Date/Time of Note Date/Time of Note DATE: 01/03/19 TIME: 17:16 Assessment/Plan VTE Prophylaxis Risk score (from Ns)>0 risk: 7 SCD applied (from [facility] [place] Yes Pharmacological prophylaxis: NA/contraindicated Pharm contraindication: blood coag disorder Lines/Catheters [facility] C[facility]from [facility] Mid Line Urinary Cath still in place: No Assessment/Plan Hospital Course Assessment: Leaking G-tube with wound and drainage -WOUND CULTURE- Preliminary K.PNEUMONIAE SSP PNEUMONIAE Patient is in contact isolation for Klebsiella in the blood Severe caloric deficiency Chronic respiratory failure status post tracheostomy Liver cirrhosis Chronic kidney failure -dialysis Pancytopenia -Profound thrombocytopenia Left lower extremity wound and pitting edema= PAD s/p bypass graft SEP 2018 Plan: Culture the G-tube wound- await final Keep the tube clamped- G-tube may need to be removed- however given Plt and malnutrition concerns removal may cause more harm- due to poor healing maintain close observation Continue topical care around the stoma Monitor labs Patient seen in collaboration with Subjective: Course reviewed with nursing staff Patient interviewed and examined All labs, imaging and other results reviewed The patient remains in ICU Plan for Plt transfusion today G-tube is clapped, pt with noted leakage form IV sites PHYSICAL EXAMINATION: GENERAL: Cachectic ill-appearing intubated on pressors SKIN: dialysis catheter EYES: Pupils equal reactive to light, no discharge. EARS/NOSE AND THROAT: Ears normal, nose normal, oropharynx normal. NECK: Supple, no masses CHEST: Inspection within normal limits. CARDIOVASCULAR: Heart: Regular rate and rhythm, paced RESPIRATORY: Lungs clear to auscultation GASTROINTESTINAL AND LIVER: Abdomen: Soft, non tenderness, g-tube,no hernias, no masses, no rebound tenderness, normoactive bowel sounds. Rectal: Deferred. Result Diagram: 01/03/19 1549 01/03/19 0430 Results 24hrs Laboratory Tests Test 01/02/19 18:11 01/02/19 18:14 01/02/19 21:59 01/03/19 00:58 Bedside Glucose 31 *L 123 102 103 Test 01/03/19 04:30 01/03/19 05:40 01/03/19 07:50 01/03/19 07:59 White Blood Count 3.7 #L Red Blood Count 2.68 L Hemoglobin 7.9 L Hematocrit 22.4 L Mean Corpuscular 83.6 Volume Mean Corpuscular 29.5 Hemoglobin Mean Corpuscular 35.3 Hemoglobin Concent Red Cell 14.5 Distribution Width Platelet Count 4 #*L Mean Platelet Volume Immature 0.500 H Granulocytes % Neutrophils % Segmented 58 Neutrophils % (Manual) Band Neutrophils % 18 H (Manual) Lymphocytes % Lymphocytes % 24 (Manual) Monocytes % Eosinophils % Basophils % Nucleated Red 0.0 Blood Cells % Immature 0.020 Granulocytes # Neutrophils # Neutrophils # 2.2 (Manual) Band Neutrophils # 0.6 Lymphocytes 0.8 (Manual) Lymphocytes # Monocytes # Eosinophils # Basophils # Nucleated Red Blood Cells # Toxic Granulation 2+ Platelet Estimate SIG DECREASED Giant Platelets 8 H Poikilocytosis 3+ Anisocytosis 1+ Macrocytosis 1+ Target Cells 1+ Sodium Level 132 L Potassium Level 4.3 Chloride Level 99 Carbon Dioxide 22 Level Anion Gap 11 Blood Urea 95 H Nitrogen Creatinine 0.85 Est Glomerular > 60 Filtrat Rate mL/min Glucose Level 102 # Calcium Level 7.6 L Bedside Glucose 109 58 L Lactic Acid Level 1.8 Test 01/03/19 08:28 01/03/19 08:38 01/03/19 13:36 01/03/19 15:49 Bedside Glucose 245 H 209 87 White Blood Count 4.2 L Red Blood Count 2.69 L Hemoglobin 7.9 L Hematocrit 22.5 L Mean Corpuscular 83.6 Volume Mean Corpuscular 29.4 Hemoglobin Mean Corpuscular 35.1 Hemoglobin Concent Red Cell 14.5 Distribution Width Platelet Count 3 #*L Mean Platelet Volume Immature 0.500 H Granulocytes % Neutrophils % Segmented 79 H Neutrophils % (Manual) Band Neutrophils % 7 H (Manual) Lymphocytes % Lymphocytes % 7 L (Manual) Monocytes % Monocytes % 6 (Manual) Eosinophils % Eosinophils % 1 (Manual) Basophils % Nucleated Red 1 H Blood Cells % Immature 0.020 Granulocytes # Neutrophils # Neutrophils # 3.3 (Manual) Band Neutrophils # 0.2 Lymphocytes 0.2 L (Manual) Lymphocytes # Monocytes # Monocytes # 0.2 L (Manual) Eosinophils # Basophils # Nucleated Red Blood Cells # Giant Platelets 2 H Polychromasia 1+ Poikilocytosis 3+ Anisocytosis 2+ Macrocytosis 2+ Exam/Review of Systems Exam Vitals Vital Signs Date Temp Pulse Resp B/P (MAP) Pulse Ox O2 O2 Flow FiO2 Time Delivery Rate 01/03/19 56 16:00 01/03/19 19 100 40 15:10 01/03/19 98/56 (70) Mechanical 12:15 Ventilator 01/03/19 97.2 04:00 Intake and Output 01/02/19 01/02/19 01/03/19 1515:00 23:00 07:00 IntakeIntake Total 405.675 ml 608.75 ml 105.125 ml OutputOutput Total 0 ml 20 ml 0 ml BalanceBalance 405.675 ml 588.75 ml 105.125 ml Results Results 24hrs Laboratory Tests Test 01/02/19 18:11 01/02/19 18:14 01/02/19 21:59 01/03/19 00:58 Bedside Glucose 31 *L 123 102 103 Test 01/03/19 04:30 01/03/19 05:40 01/03/19 07:50 01/03/19 07:59 White Blood Count 3.7 #L Red Blood Count 2.68 L Hemoglobin 7.9 L Hematocrit 22.4 L Mean Corpuscular 83.6 Volume Mean Corpuscular 29.5 Hemoglobin Mean Corpuscular 35.3 Hemoglobin Concent Red Cell 14.5 Distribution Width Platelet Count 4 #*L Mean Platelet Volume Immature 0.500 H Granulocytes % Neutrophils % Segmented 58 Neutrophils % (Manual) Band Neutrophils % 18 H (Manual) Lymphocytes % Lymphocytes % 24 (Manual) Monocytes % Eosinophils % Basophils % Nucleated Red 0.0 Blood Cells % Immature 0.020 Granulocytes # Neutrophils # Neutrophils # 2.2 (Manual) Band Neutrophils # 0.6 Lymphocytes 0.8 (Manual) Lymphocytes # Monocytes # Eosinophils # Basophils # Nucleated Red Blood Cells # Toxic Granulation 2+ Platelet Estimate SIG DECREASED Giant Platelets 8 H Poikilocytosis 3+ Anisocytosis 1+ Macrocytosis 1+ Target Cells 1+ Sodium Level 132 L Potassium Level 4.3 Chloride Level 99 Carbon Dioxide 22 Level Anion Gap 11 Blood Urea 95 H Nitrogen Creatinine 0.85 Est Glomerular > 60 Filtrat Rate mL/min Glucose Level 102 # Calcium Level 7.6 L Bedside Glucose 109 58 L Lactic Acid Level 1.8 Test 01/03/19 08:28 01/03/19 08:38 01/03/19 13:36 01/03/19 15:49 Bedside Glucose 245 H 209 87 White Blood Count 4.2 L Red Blood Count 2.69 L Hemoglobin 7.9 L Hematocrit 22.5 L Mean Corpuscular 83.6 Volume Mean Corpuscular 29.4 Hemoglobin Mean Corpuscular 35.1 Hemoglobin Concent Red Cell 14.5 Distribution Width Platelet Count 3 #*L Mean Platelet Volume Immature 0.500 H Granulocytes % Neutrophils % Segmented 79 H Neutrophils % (Manual) Band Neutrophils % 7 H (Manual) Lymphocytes % Lymphocytes % 7 L (Manual) Monocytes % Monocytes % 6 (Manual) Eosinophils % Eosinophils % 1 (Manual) Basophils % Nucleated Red 1 H Blood Cells % Immature 0.020 Granulocytes # Neutrophils # Neutrophils # 3.3 (Manual) Band Neutrophils # 0.2 Lymphocytes 0.2 L (Manual) Lymphocytes # Monocytes # Monocytes # 0.2 L (Manual) Eosinophils # Basophils # Nucleated Red Blood Cells # Giant Platelets 2 H Polychromasia 1+ Poikilocytosis 3+ Anisocytosis 2+ Macrocytosis 2+ Medications Medication Current Medications Glucose (Glutose) 15 gm Q15M PRN PO DECREASED GLUCOSE; Start 11/23/18 at 13:30 Glucose (Glutose) 22.5 gm Q15M PRN PO DECREASED GLUCOSE; Start 11/23/18 at 13:30 Dextrose (D50w Syringe) 25 ml Q15M PRN IV DECREASED GLUCOSE Last administered on 01/03/19at 08:04; Admin Dose 25 ML; Start 11/23/18 at 13:30 Dextrose (D50w Syringe) 50 ml Q15M PRN IV DECREASED GLUCOSE Last administered on 01/02/19at 13:23; Admin Dose 50 ML; Start 11/23/18 at 13:30 Glucagon (Glucagen) 1 mg Q15M PRN IM DECREASED GLUCOSE; Start 11/23/18 at 13:30 Glucose (Glutose) 15 gm Q15M PRN BUCCAL DECREASED GLUCOSE; Start 11/23/18 at 13:30 Albumin Human 100 ml @ 100 mls/hr DURING DIALYSIS PRN IV HYPOTENSION DURING HD Last administered on 12/28/18at 08:00; Admin Dose 100 MLS/HR; Start 11/26/18 at 14:00 Collagenase (Santyl) 1 applic DAILY TOP Last administered on 01/03/19at 15:58; Admin Dose 1 APPLIC; Start 12/01/18 at 16:30 Acetaminophen (Tylenol Liquid) 650 mg Q6H PRN NGT PAIN LEVEL 1-3 OR FEVER Last administered on 12/28/18 06:03; Admin Dose 650 MG; Start 12/06/18 at 09:00 Midodrine (Proamatine) 5 mg TID@09,13,17 GTB Last administered on 01/01/19 14:00; Admin Dose 5 MG; Start 12/07/18 at 09:00 Epoetin Margarito-epbx (RETACRIT(esrd)) 10,000 unit MoWeFr@1700 SC Last administered on 01/01/19 16:54; Admin Dose 10,000 UNIT; Start 12/11/18 at 17:00 Lorazepam (Ativan) 1 mg Q4H PRN IV AGITATION/ANXIETY Last administered on 12/19/18 05:41; Admin Dose 1 MG; Start 12/15/18 at 11:00 Morphine Sulfate (morphine) 1 mg Q4H PRN IV SEVERE PAIN LEVEL 7-10 Last administered on 12/19/18 03:37; Admin Dose 1 MG; Start 12/15/18 at 11:00 Metoclopramide HCl (Reglan) 5 mg Q8 IV Last administered on 01/03/19 13:33; Admin Dose 5 MG; Start 12/17/18 at 12:00 Diltiazem HCl 125 ml @ 5 mls/hr TITRATE IV ; Start 12/29/18 at 09:30 Meropenem/Sodium Chloride 50 ml @ 100 mls/hr Q12 IVPB Last administered on 01/03/19 08:21; Admin Dose 100 MLS/HR; Start 12/29/18 at 21:00 Clindamycin HCl/ Dextrose 50 ml @ 100 mls/hr Q8 IVPB Last administered on 01/03/19 15:32; Admin Dose 100 MLS/HR; Start 12/29/18 at 15:00 Levothyroxine Sodium (Synthroid) 75 mcg BEFORE BREAKFAST GTB Last administered on 01/01/19 06:34; Admin Dose 75 MCG; Start 12/30/18 at 07:00 Albuterol (Ventolin Hfa) 4 puff Q4H RESP THERAPY PRN INH WHEEZING; Start 12/30/18 at 08:00 Caspofungin 50 mg/ Sodium Chloride 250 ml @ 250 mls/hr Q24H IVPB Last administered on 5/26/19at 13:31; Admin Dose 250 MLS/HR; Start 12/31/18 at 13:00 Phenylephrine HCl 250 ml @ 75 mls/hr TITRATE IV ; Start 12/30/18 at 17:00 Eye Lubricant (Akwa Oint) 1 applic Q6 BOTH EYES Last administered on 01/03/19 11:54; Admin Dose 1 APPLIC; Start 01/01/19 at 12:00 Eye Lubricant (Artificial Tears Oph) 2 drop Q6 BOTH EYES Last administered on 11:53; Admin Dose 2 DROP; Start 01/01/19 at 12:00 Norepinephrine 250 ml @ 1.875 mls/ hr TITRATE IV Last administered on 01/01/19 17:54; Admin Dose 3.75 MLS/HR; Start 01/01/19 at 11:30 Dextrose 1,000 ml @ 40 mls/hr Q24H IV Last administered on 01/02/19at 15:52; Admin Dose 40 MLS/HR; Start 01/01/19 at 12:00 Amiodarone HCl 100 ml @ 600 mls/hr DAILY IV Last administered on 01/02/19 08: 03; Admin Dose 600 MLS/HR; Start 01/01/19 at 14:00 Diagnostic Test (Pha) (Accu-Chek) 1 ea Q4 XX Last administered on 01/03/19at 05:49; Admin Dose 1 EA; Start 01/02/19 at 09:00 Insulin Aspart (Novolog Insulin Pen) NOVOLOG *MILD* ALGORI... Q4 SC ; Start 01/02/19 at 13:00 [place] FISH January 03, 2019 17:29
[2019-01-03] MEDS: morphine 2 MG INJ IV PRN (17:49)
[2019-01-03] MEDS: DEXTROSE 10% 1,000 ML IV SCH (21:42)
[2019-01-03] MEDS: ALBUMIN HUMAN 25% 100 ML IV PRN (21:52)
[2019-01-04] VITALS (109 sets, daily range): BP systolic 65–157; BP diastolic 46–109; PULSE 61–134; RESP 12–29
[2019-01-04] MEDS: INSULIN ASPART [NOVOLOG] 3 ML PEN SC SCH ×6 (01:00→21:00)
[2019-01-04] MEDS: ACCU-CHEK XX SCH ×6 (01:00→20:31)
[2019-01-04] MEDS: ARTIFICIAL TEARS 15 ML OPH BOTH EYES SCH ×5 (01:02→23:25)
[2019-01-04] MEDS: MEROPENEM 500MG/50 ML (PMX) 50 ML IVPB SCH ×3 (01:02→23:25)
[2019-01-04] MEDS: OCULAR LUBRICANT 3.5 GM OPH OINT BOTH EYES SCH ×5 (01:02→23:25)
[2019-01-04] MEDS: CLINDAMYCIN 600 MG/D5W (PMX) 50 ML IVPB SCH ×3 (01:52→17:53)
[2019-01-04] MEDS: METOCLOPRAMIDE 10 MG INJ IV SCH ×3 (06:19→21:09)
[2019-01-04] MEDS: LEVOTHYROXINE 75 MCG TAB GTB SCH (06:19)
[2019-01-04] MEDS ORDERED: SOD CHLORIDE 0.9% 250 ML IV* ONE (08:03)
--- NOTE | 2019-01-04 08:05 | PN ---
Date/Time of Note Date/Time of Note DATE: 01/04/19 TIME: 08:01 Assessment/Plan VTE Prophylaxis Risk score (from Ns)>0 risk: 9 SCD applied (from [facility] [place]): Yes Pharmacological prophylaxis: NA/contraindicated Pharm contraindication: thrombocytopenia Lines/Catheters IV Catheter Type (from [facility]): Mid Line Urinary Cath still in place: No Assessment/Plan Hospital Course S: Patient still on pressor support, had dialysis yesterday. Did receive platelet transfusion as ordered by hematology oncology team yesterday and on the CBC checked yesterday evening after transfusion, platelets improved to 30,000, but this morning, as expected, they are back down to the 3000 range, no signs of bleeding. G-tube culture site positive for Klebsiella and VRE. O: VS- see below PE: On MV via trach, minimally interactive Chronically ill appearing, cachectic Lungs clear Still some distended belly, G tube in place Mild peripheral edema present LUE wound wrapped A/P: 58 yo female with ESRD, questionable cirrhosis, DMII presents with hypoglycemia, leg infection. Suffered cardiac and respiratory arrest, recovered with good neurologic status however was unable to be weaned from mechanical ventilation and is now s/p trach and PEG. # Chronic respiratory failure: Treated for pneumonia earlier this admission as well as respiratory failure, status post trach placement earlier this admission as well. -Continue MV per pulm via trach, follow pulmonary recommendations, current an tifungal and antibacterial medications -Continue to wean steroids off over the next few days -For hypotension, continue pressor support and wean off as tolerated if possible -For leaking G-tube, as mentioned above culture of the leakage fluid positive for VRE and Klebsiella growth-continue meropenem and clindamycin as ordered by ID team. -Of note, GI team recommending possible G-tube replacement/repair/exchange once the platelets have improved (although again doubtful it will). Also TPN wa s mentioned as a possibility, however not likely patient could tolerate new access placement(ie: PICC) for this -for now continue D5 fluids. # Left lower extremity wound: Per ID team there is also concern of a possible infected graft. Blood cultures from last month as well as wound culture from la st month positive for Klebsiella, patient presently on clindamycin and meropenem now, as well as fluconazole. -Continue antibiotics indefinitely per ID # ESRD -For now continue HD per nephrology # Hypothyroidism: - Continue Synthroid # Anemia of CKD: Also thrombocytopenia, prior diagnosis of this secondary to HIT. 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 Per heme-onc this is likely a consumptive process occurring but resolution of her other problems would be the solution. Also lupus anticoagulant has been ordered. -Monitor CBC for now, follow-up further hematology oncology recommendations -Follow-up further labs ordered per hematology oncology team, status post IVIG administration 3 days ago as well -Per their note yesterday they may consider another administration of this today # Prophylaxis: SCDs Dispo: Again still in intensive care unit the last 7 days. As mentioned above bioethics meeting held 6 days ago, family was present during the meeting as well. Family agreed to chemical code only after bioethics meeting. Family is aware patient has very poor prognosis at this point in time. Critical care time spent on patient care today equals 45 minutes. Result Diagram: 01/04/19 0500 01/04/19 0500 Results 24hrs Laboratory Tests Test 01/03/19 08:28 01/03/19 08:38 01/03/19 13:36 01/03/19 15:49 Bedside Glucose 245 H 209 87 White Blood 4.2 L Count Red Blood Count 2.69 L Hemoglobin 7.9 L Hematocrit 22.5 L Mean Corpuscular 83.6 Volume Mean Corpuscular 29.4 Hemoglobin Mean Corpuscular 35.1 Hemoglobin Anh nt Red Cell 14.5 Distribution Width Platelet Count 3 #*L Mean Platelet Volume Immature 0.500 H Granulocytes % Neutrophils % Segmented 79 H Neutrophils % (Manual) Band Neutrophils 7 H % (Manual) Lymphocytes % Lymphocytes % 7 L (Manual) Monocytes % Monocytes % 6 (Manual) Eosinophils % Eosinophils % 1 (Manual) Basophils % Nucleated Red 1 H Blood Cells % Immature 0.020 Granulocytes # Neutrophils # Neutrophils # 3.3 (Manual) Band Neutrophils 0.2 # Lymphocytes 0.2 L (Manual) Lymphocytes # Monocytes # Monocytes # 0.2 L (Manual) Eosinophils # Basophils # Nucleated Red Blood Cells # Giant Platelets 2 H Polychromasia 1+ Poikilocytosis 3+ Anisocytosis 2+ Macrocytosis 2+ Test 01/03/19 18:30 01/03/19 18:45 01/03/19 20:12 01/03/19 21:40 Bedside Glucose 260 H 137 71 White Blood 3.1 #L Count Red Blood Count 2.51 L Hemoglobin 7.4 L Hematocrit 21.1 L Mean Corpuscular 84.1 Volume Mean Corpuscular 29.5 Hemoglobin Mean Corpuscular 35.1 Hemoglobin Anh nt Red Cell 14.6 H Distribution Width Platelet Count 30 #L Mean Platelet 10.7 H Volume Immature 1.000 H Granulocytes % Neutrophils % Segmented 78 H Neutrophils % (Manual) Band Neutrophils 7 H % (Manual) Lymphocytes % Lymphocytes % 11 L (Manual) Reactive 1 H Lymphocytes % (Manual) Monocytes % Eosinophils % Basophils % Metamyelocytes % 3 H (manual) Nucleated Red 1 H Blood Cells % Immature 0.030 Granulocytes # Neutrophils # Neutrophils # 2.4 (Manual) Band Neutrophils 0.2 # Lymphocytes 0.3 L (Manual) Lymphocytes # Reactive 0.0 Lymphocytes # Monocytes # Eosinophils # Basophils # Metamyelocytes # 0.0 Nucleated Red Blood Cells # Platelet SIG DECREASED Estimate Giant Platelets 2 H Polychromasia 3+ Poikilocytosis 3+ Anisocytosis 3+ Microcytosis 2+ Macrocytosis 2+ Acanthocytes 2+ Test 01/04/19 01:06 01/04/19 04:27 01/04/19 05:00 01/04/19 05:20 Bedside Glucose 79 81 White Blood 2.2 #L Count Red Blood Count 2.27 L Hemoglobin 6.8 *L Hematocrit 18.9 L Mean Corpuscular 83.3 Volume Mean Corpuscular 30.0 Hemoglobin Mean Corpuscular 36.0 Hemoglobin Anh nt Red Cell 14.2 Distribution Width Platelet Count 3 #*L Mean Platelet Volume Immature 0.500 H Granulocytes % Neutrophils % Segmented 62 Neutrophils % (Manual) Band Neutrophils 2 % (Manual) Lymphocytes % Lymphocytes % 29 (Manual) Reactive 1 H Lymphocytes % (Manual) Monocytes % Monocytes % 2 (Manual) Eosinophils % Eosinophils % 5 (Manual) Basophils % Nucleated Red 1 H Blood Cells % Immature 0.010 Granulocytes # Neutrophils # Neutrophils # 1.4 L (Manual) Band Neutrophils 0.0 # Lymphocytes 0.6 L (Manual) Lymphocytes # Reactive 0.0 Lymphocytes # Monocytes # Monocytes # 0.0 L (Manual) Eosinophils # Basophils # Nucleated Red Blood Cells # Platelet SIG DECREASED Estimate Giant Platelets 4 H Anisocytosis 1+ Macrocytosis 1+ Sodium Level 135 Potassium Level 3.6 Chloride Level 101 Carbon Dioxide 26 Level Anion Gap 8 Blood Urea 54 #H Nitrogen Creatinine 0.58 Est Glomerular > 60 Filtrat Rate mL/min Glucose Level 76 Calcium Level 7.5 L Phosphorus Level 2.9 Magnesium Level 1.8 Lab Scanned BLOOD TRANSFUSI Report ON Exam/Review of Systems Exam Vitals Vital Signs Date Temp Pulse Resp B/P (MAP) Pulse Ox O2 O2 Flow FiO2 Time Delivery Rate 01/04/19 63 18 124/58 100 06:30 (80) 01/04/19 Mechanical 06:00 Ventilator 01/04/19 40 05:25 01/04/19 97.5 04:00 Intake and Output 01/03/19 01/03/19 01/04/19 1515:00 23:00 07:00 IntakeIntake Total 633.125 ml 688.250 ml 360.625 ml OutputOutput Total 0 ml 300 ml 500 ml BalanceBalance 633.125 ml 388.250 ml -139.375 ml Results Results 24hrs Laboratory Tests Test 01/03/19 08:28 01/03/19 08:38 01/03/19 13:36 01/03/19 15:49 Bedside Glucose 245 H 209 87 White Blood 4.2 L Count Red Blood Count 2.69 L Hemoglobin 7.9 L Hematocrit 22.5 L Mean Corpuscular 83.6 Volume Mean Corpuscular 29.4 Hemoglobin Mean Corpuscular 35.1 Hemoglobin Anh nt Red Cell 14.5 Distribution Width Platelet Count 3 #*L Mean Platelet Volume Immature 0.500 H Granulocytes % Neutrophils % Segmented 79 H Neutrophils % (Manual) Band Neutrophils 7 H % (Manual) Lymphocytes % Lymphocytes % 7 L (Manual) Monocytes % Monocytes % 6 (Manual) Eosinophils % Eosinophils % 1 (Manual) Basophils % Nucleated Red 1 H Blood Cells % Immature 0.020 Granulocytes # Neutrophils # Neutrophils # 3.3 (Manual) Band Neutrophils 0.2 # Lymphocytes 0.2 L (Manual) Lymphocytes # Monocytes # Monocytes # 0.2 L (Manual) Eosinophils # Basophils # Nucleated Red Blood Cells # Giant Platelets 2 H Polychromasia 1+ Poikilocytosis 3+ Anisocytosis 2+ Macrocytosis 2+ Test 01/03/19 18:30 01/03/19 18:45 01/03/19 20:12 01/03/19 21:40 Bedside Glucose 260 H 137 71 White Blood 3.1 #L Count Red Blood Count 2.51 L Hemoglobin 7.4 L Hematocrit 21.1 L Mean Corpuscular 84.1 Volume Mean Corpuscular 29.5 Hemoglobin Mean Corpuscular 35.1 Hemoglobin Anh nt Red Cell 14.6 H Distribution Width Platelet Count 30 #L Mean Platelet 10.7 H Volume Immature 1.000 H Granulocytes % Neutrophils % Segmented 78 H Neutrophils % (Manual) Band Neutrophils 7 H % (Manual) Lymphocytes % Lymphocytes % 11 L (Manual) Reactive 1 H Lymphocytes % (Manual) Monocytes % Eosinophils % Basophils % Metamyelocytes % 3 H (manual) Nucleated Red 1 H Blood Cells % Immature 0.030 Granulocytes # Neutrophils # Neutrophils # 2.4 (Manual) Band Neutrophils 0.2 # Lymphocytes 0.3 L (Manual) Lymphocytes # Reactive 0.0 Lymphocytes # Monocytes # Eosinophils # Basophils # Metamyelocytes # 0.0 Nucleated Red Blood Cells # Platelet SIG DECREASED Estimate Giant Platelets 2 H Polychromasia 3+ Poikilocytosis 3+ Anisocytosis 3+ Microcytosis 2+ Macrocytosis 2+ Acanthocytes 2+ Test 01/04/19 01:06 01/04/19 04:27 01/04/19 05:00 01/04/19 05:20 Bedside Glucose 79 81 White Blood 2.2 #L Count Red Blood Count 2.27 L Hemoglobin 6.8 *L Hematocrit 18.9 L Mean Corpuscular 83.3 Volume Mean Corpuscular 30.0 Hemoglobin Mean Corpuscular 36.0 Hemoglobin Anh nt Red Cell 14.2 Distribution Width Platelet Count 3 #*L Mean Platelet Volume Immature 0.500 H Granulocytes % Neutrophils % Segmented 62 Neutrophils % (Manual) Band Neutrophils 2 % (Manual) Lymphocytes % Lymphocytes % 29 (Manual) Reactive 1 H Lymphocytes % (Manual) Monocytes % Monocytes % 2 (Manual) Eosinophils % Eosinophils % 5 (Manual) Basophils % Nucleated Red 1 H Blood Cells % Immature 0.010 Granulocytes # Neutrophils # Neutrophils # 1.4 L (Manual) Band Neutrophils 0.0 # Lymphocytes 0.6 L (Manual) Lymphocytes # Reactive 0.0 Lymphocytes # Monocytes # Monocytes # 0.0 L (Manual) Eosinophils # Basophils # Nucleated Red Blood Cells # Platelet SIG DECREASED Estimate Giant Platelets 4 H Anisocytosis 1+ Macrocytosis 1+ Sodium Level 135 Potassium Level 3.6 Chloride Level 101 Carbon Dioxide 26 Level Anion Gap 8 Blood Urea 54 #H Nitrogen Creatinine 0.58 Est Glomerular > 60 Filtrat Rate mL/min Glucose Level 76 Calcium Level 7.5 L Phosphorus Level 2.9 Magnesium Level 1.8 Lab Scanned BLOOD TRANSFUSI Report ON Medications Medication Current Medications Glucose (Glutose) 15 gm Q15M PRN PO DECREASED GLUCOSE; Start 11/23/18 at 13:30 Glucose (Glutose) 22.5 gm Q15M PRN PO DECREASED GLUCOSE; Start 11/23/18 at 13:30 Dextrose (D50w Syringe) 25 ml Q15M PRN IV DECREASED GLUCOSE Last administered on 01/03/19 08:04; Admin Dose 25 ML; Start 11/23/18 at 13:30 Dextrose (D50w Syringe) 50 ml Q15M PRN IV DECREASED GLUCOSE Last administered on 01/03/19 18:00; Admin Dose 50 ML; Start 11/23/18 at 13:30 Glucagon (Glucagen) 1 mg Q15M PRN IM DECREASED GLUCOSE; Start 11/23/18 at 13:30 Glucose (Glutose) 15 gm Q15M PRN BUCCAL DECREASED GLUCOSE; Start 11/23/18 at 13:30 Albumin Human 100 ml @ 100 mls/hr DURING DIALYSIS PRN IV HYPOTENSION DURING HD Last administered on 01/03/19 21:52; Admin Dose 100 MLS/HR; Start 11/26/18 at 14:00 Collagenase (Santyl) 1 applic DAILY TOP Last administered on 01/03/19 15:58; Admin Dose 1 APPLIC; Start 12/01/18 at 16:30 Acetaminophen (Tylenol Liquid) 650 mg Q6H PRN NGT PAIN LEVEL 1-3 OR FEVER Last administered on 12/28/18 06:03; Admin Dose 650 MG; Start 12/06/18 at 09:00 Midodrine (Proamatine) 5 mg TID@,13,17 GTB Last administered on 01/01/19 14:00; Admin Dose 5 MG; Start 12/07/18 at 09:00 Epoetin Margarito-epbx (RETACRIT(esrd)) 10,000 unit MoWeFr@1700 SC Last administered on 01/01/19 16:54; Admin Dose 10,000 UNIT; Start 12/11/18 at 17:00 Lorazepam (Ativan) 1 mg Q4H PRN IV AGITATION/ANXIETY Last administered on 12/19/18 05:41; Admin Dose 1 MG; Start 12/15/18 at 11:00 Morphine Sulfate (morphine) 1 mg Q4H PRN IV SEVERE PAIN LEVEL 7-10 Last administered on 01/03/19 17:49; Admin Dose 1 MG; Start 12/15/18 at 11:00 Metoclopramide HCl (Reglan) 5 mg Q8 IV Last administered on 01/04/19 06:19; Admin Dose 5 MG; Start 12/17/18 at 12:00 Diltiazem HCl 125 ml @ 5 mls/hr TITRATE IV ; Start 12/29/18 at 09:30 Levothyroxine Sodium (Synthroid) 75 mcg BEFORE BREAKFAST GTB Last administered on 01/04/19 06:19; Admin Dose 75 MCG; Start 12/30/18 at 07:00 Albuterol (Ventolin Hfa) 4 puff Q4H RESP THERAPY PRN INH WHEEZING; Start 12/30/18 at 08:00 Caspofungin 50 mg/ Sodium Chloride 250 ml @ 250 mls/hr Q24H IVPB Last administered on 01/03/19 13:31; Admin Dose 250 MLS/HR; Start 12/31/18 at 13:00 Phenylephrine HCl 250 ml @ 75 mls/hr TITRATE IV ; Start 12/30/18 at 17:00 Eye Lubricant (Akwa Oint) 1 applic Q6 BOTH EYES Last administered on 01/04/19 06:18; Admin Dose 1 APPLIC; Start 01/01/19 at 12:00 Eye Lubricant (Artificial Tears Oph) 2 drop Q6 BOTH EYES Last administered on 01/04/19 06:18; Admin Dose 2 DROP; Start 01/01/19 at 12:00 Norepinephrine 250 ml @ 1.875 mls/ hr TITRATE IV Last administered on 01/01/19 17:54; Admin Dose 3.75 MLS/HR; Start 01/01/19 at 11:30 Dextrose 1,000 ml @ 40 mls/hr Q24H IV Last administered on 01/03/19 21:42; Admin Dose 40 MLS/HR; Start 01/01/19 at 12:00 Amiodarone HCl 100 ml @ 600 mls/hr DAILY IV Last administered on 01/02/19at 08:03; Admin Dose 600 MLS/HR; Start 01/01/19 at 14:00 Diagnostic Test (Pha) (Accu-Chek) 1 ea Q4 XX Last administered on 01/03/19at 05:49; Admin Dose 1 EA; Start 01/02/19 at 09:00 Insulin Aspart (Novolog Insulin Pen) NOVOLOG *MILD* ALGORI... Q4 SC ; Start 01/02/19 at 13:00 Meropenem/Sodium Chloride 50 ml @ 100 mls/hr Q12H IVPB Last administered on 01/04/19at 01:02; Admin Dose 100 MLS/HR; Start 01/04/19 at 00:00 Clindamycin HCl/ Dextrose 50 ml @ 100 mls/hr Q8H IVPB Last administered on 01/04/19at 01:52; Admin Dose 100 MLS/HR; Start 01/04/19 at 01:00 RENÉE SKINNER January 04, 2019 08:05
--- NOTE | 2019-01-04 08:05 | PN ---
DATE: 01/04/2019 SUBJECTIVE: The patient is in critical condition on pressor support. No other acute events noted. No hemoptysis, hematemesis or hematochezia. OBJECTIVE: VITAL SIGNS: Blood pressure is 124/58, respirations 18, pulse 63, temperature 98.6. HEENT: Head is normocephalic. NECK: Supple. HEART: Regular rate. LUNGS: Show diminished breath sounds at the base. ABDOMEN: Soft, nontender to palpation. No rebound or guarding. EXTREMITIES: Negative for clubbing, cyanosis. Diffuse anasarca. DERMATOLOGIC: No rashes. MUSCULOSKELETAL: No joint effusion. NEUROLOGIC: No change in exam. MEDICATIONS: Reviewed. LABORATORY DATA: Reviewed. ASSESSMENT AND PLAN: 1. End-stage renal disease. The patient had dialysis yesterday, tolerated well. Plan is for dialys is again tomorrow. 2. Anemia. Continue to monitor hemoglobin and hematocrit levels. Continue Epogen. Transfuse PRBCs as tolerated. 3. Volume overload, diffuse anasarca. Continue ultrafiltration with dialysis if hemodynamically sta ble. 4. Mineral bone disorder, monitor calcium and phosphorus levels. 5. Ventilator-dependent respiratory failure. Vent settings have been reviewed. Continue to monitor . 6. Septic shock. Continue current medical management. Continue antibiotic therapy. Continue press or support. 7. Thrombocytopenia. Continue to monitor. No further transfusions per hematology. 8. Dysphagia. 9. Sinus arrhythmia. Continue amiodarone. 10. Lower extremity wounds. 11. Status post cardiopulmonary arrest. Dictated By: SARIKA JOINER DO NR/NTS Conf#: [id number] DID#: [id number] CC: LORRAINE JOHNSON MD; MANDY BATES MD; RENÉE SKINNER;*EndCC*
[2019-01-04] MEDS: morphine 2 MG INJ IV PRN (08:23)
[2019-01-04] MEDS: DEXTROSE 50% 50 ML SYRINGE IV PRN ×4 (08:24→21:09)
[2019-01-04] MEDS: MIDODRINE 5 MG TAB GTB SCH ×3 (08:27→16:24)
[2019-01-04] MEDS: AMIODARONE 150MG/D5W BOLUS 100 ML IV SCH (08:28)
--- NOTE | 2019-01-04 09:37 | CONS ---
Consult Date/Type/Reason Admit Date/Time Nov 21, 2018 at 04:53 Initial Consult Date Type of Consult Pulmonary Requesting Provider: RENÉE SKINNER Date/Time of Note DATE: 01/04/19 TIME: 09:36 Subjective Continues mechanical ventilation with vasopressor support. Objective Vital Signs Date Temp Pulse Resp B/P (MAP) Pulse Ox O2 O2 Flow FiO2 Time Delivery Rate 01/04/19 72 18 100 40 09:10 01/04/19 124/58 06:30 (80) 01/04/19 Mechanical 06:00 Ventilator 01/04/19 97.5 04:00 Intake and Output 01/03/19 01/03/19 01/04/19 1515:00 23:00 07:00 IntakeIntake Total 633.125 ml 688.250 ml 360.625 ml OutputOutput Total 0 ml 300 ml 500 ml BalanceBalance 633.125 ml 388.250 ml -139.375 ml Exam GENERAL: Extremely frail thin cachectic lady on mechanical ventilation VITAL SIGNS: per chart NECK: Supple. No JVD or lymphadenopathy. CARDIAC EXAM: S1, S2. No added sounds or murmurs. CHEST: Diminished air entry bilaterally ABDOMEN: Soft, nontender. No guarding or rebound. EXTREMITIES: No cyanosis, clubbing or edema. NEUROLOGIC: Generalized weakness. No focal deficits. Vent Setting Ventilator Support Mode: AC Fraction of Inspired Oxygen pe: 40 Positive End Expiratory Pressu: 5.0 Results/Medications Result Diagram: 01/04/19 0500 01/04/19 0500 Results 24 hrs Laboratory Tests Test 01/03/19 13:36 01/03/19 15:49 01/03/19 18:30 01/03/19 18:45 Bedside Glucose 87 260 H 137 White Blood 4.2 L Count Red Blood Count 2.69 L Hemoglobin 7.9 L Hematocrit 22.5 L Mean Corpuscular 83.6 Volume Mean Corpuscular 29.4 Hemoglobin Mean Corpuscular 35.1 Hemoglobin Anh nt Red Cell 14.5 Distribution Width Platelet Count 3 #*L Mean Platelet Volume Immature 0.500 H Granulocytes % Neutrophils % Segmented 79 H Neutrophils % (Manual) Band Neutrophils 7 H % (Manual) Lymphocytes % Lymphocytes % 7 L (Manual) Monocytes % Monocytes % 6 (Manual) Eosinophils % Eosinophils % 1 (Manual) Basophils % Nucleated Red 1 H Blood Cells % Immature 0.020 Granulocytes # Neutrophils # Neutrophils # 3.3 (Manual) Band Neutrophils 0.2 # Lymphocytes 0.2 L (Manual) Lymphocytes # Monocytes # Monocytes # 0.2 L (Manual) Eosinophils # Basophils # Nucleated Red Blood Cells # Giant Platelets 2 H Polychromasia 1+ Poikilocytosis 3+ Anisocytosis 2+ Macrocytosis 2+ Test 01/03/19 20:12 01/03/19 21:40 01/04/19 01:06 01/04/19 04:27 White Blood 3.1 #L Count Red Blood Count 2.51 L Hemoglobin 7.4 L Hematocrit 21.1 L Mean Corpuscular 84.1 Volume Mean Corpuscular 29.5 Hemoglobin Mean Corpuscular 35.1 Hemoglobin Anh nt Red Cell 14.6 H Distribution Width Platelet Count 30 #L Mean Platelet 10.7 H Volume Immature 1.000 H Granulocytes % Neutrophils % Segmented 78 H Neutrophils % (Manual) Band Neutrophils 7 H % (Manual) Lymphocytes % Lymphocytes % 11 L (Manual) Reactive 1 H Lymphocytes % (Manual) Monocytes % Eosinophils % Basophils % Metamyelocytes % 3 H (manual) Nucleated Red 1 H Blood Cells % Immature 0.030 Granulocytes # Neutrophils # Neutrophils # 2.4 (Manual) Band Neutrophils 0.2 # Lymphocytes 0.3 L (Manual) Lymphocytes # Reactive 0.0 Lymphocytes # Monocytes # Eosinophils # Basophils # Metamyelocytes # 0.0 Nucleated Red Blood Cells # Platelet SIG DECREASED Estimate Giant Platelets 2 H Polychromasia 3+ Poikilocytosis 3+ Anisocytosis 3+ Microcytosis 2+ Macrocytosis 2+ Acanthocytes 2+ Bedside Glucose 71 79 81 Test 01/04/19 05:00 01/04/19 05:20 01/04/19 08:12 01/04/19 08:40 White Blood 2.2 #L Count Red Blood Count 2.27 L Hemoglobin 6.8 *L Hematocrit 18.9 L Mean Corpuscular 83.3 Volume Mean Corpuscular 30.0 Hemoglobin Mean Corpuscular 36.0 Hemoglobin Anh nt Red Cell 14.2 Distribution Width Platelet Count 3 #*L Mean Platelet Volume Immature 0.500 H Granulocytes % Neutrophils % Segmented 62 Neutrophils % (Manual) Band Neutrophils 2 % (Manual) Lymphocytes % Lymphocytes % 29 (Manual) Reactive 1 H Lymphocytes % (Manual) Monocytes % Monocytes % 2 (Manual) Eosinophils % Eosinophils % 5 (Manual) Basophils % Nucleated Red 1 H Blood Cells % Immature 0.010 Granulocytes # Neutrophils # Neutrophils # 1.4 L (Manual) Band Neutrophils 0.0 # Lymphocytes 0.6 L (Manual) Lymphocytes # Reactive 0.0 Lymphocytes # Monocytes # Monocytes # 0.0 L (Manual) Eosinophils # Basophils # Nucleated Red Blood Cells # Platelet SIG DECREASED Estimate Giant Platelets 4 H Anisocytosis 1+ Macrocytosis 1+ Sodium Level 135 Potassium Level 3.6 Chloride Level 101 Carbon Dioxide 26 Level Anion Gap 8 Blood Urea 54 #H Nitrogen Creatinine 0.58 Est Glomerular > 60 Filtrat Rate mL/min Glucose Level 76 Calcium Level 7.5 L Phosphorus Level 2.9 Magnesium Level 1.8 Lab Scanned BLOOD TRANSFUSI Report ON Bedside Glucose 58 L 146 Test 01/04/19 09:12 Bedside Glucose 118 Medications Current Medications Glucose (Glutose) 15 gm Q15M PRN PO DECREASED GLUCOSE; Start 11/23/18 at 13:30 Glucose (Glutose) 22.5 gm Q15M PRN PO DECREASED GLUCOSE; Start 11/23/18 at 13:30 Dextrose (D50w Syringe) 25 ml Q15M PRN IV DECREASED GLUCOSE Last administered on 01/04/19at 08:24; Admin Dose 25 ML; Start 11/23/18 at 13:30 Dextrose (D50w Syringe) 50 ml Q15M PRN IV DECREASED GLUCOSE Last administered on 01/03/19at 18:00; Admin Dose 50 ML; Start 11/23/18 at 13:30 Glucagon (Glucagen) 1 mg Q15M PRN IM DECREASED GLUCOSE; Start 11/23/18 at 13:30 Glucose (Glutose) 15 gm Q15M PRN BUCCAL DECREASED GLUCOSE; Start 11/23/18 at 13:30 Albumin Human 100 ml @ 100 mls/hr DURING DIALYSIS PRN IV HYPOTENSION DURING HD Last administered on 01/03/19at 21:52; Admin Dose 100 MLS/HR; Start 11/26/18 at 14:00 Collagenase (Santyl) 1 applic DAILY TOP Last administered on 01/03/19at 15:58; Admin Dose 1 APPLIC; Start 12/01/18 at 16:30 Acetaminophen (Tylenol Liquid) 650 mg Q6H PRN NGT PAIN LEVEL 1-3 OR FEVER Last administered on 12/28/18at 06:03; Admin Dose 650 MG; Start 12/06/18 at 09:00 Midodrine (Proamatine) 5 mg TID@,13,17 GTB Last administered on 01/01/19 14:00; Admin Dose 5 MG; Start 12/07/18 at 09:00 Epoetin Margarito-epbx (RETACRIT(esrd)) 10,000 unit MoWeFr@1700 SC Last administered on 01/01/19 16:54; Admin Dose 10,000 UNIT; Start 12/11/18 at 17:00 Lorazepam (Ativan) 1 mg Q4H PRN IV AGITATION/ANXIETY Last administered on 12/19/18 05:41; Admin Dose 1 MG; Start 12/15/18 at 11:00 Morphine Sulfate (morphine) 1 mg Q4H PRN IV SEVERE PAIN LEVEL 7-10 Last adm inistered on 01/04/19 08:23; Admin Dose 1 MG; Start 12/15/18 at 11:00 Metoclopramide HCl (Reglan) 5 mg Q8 IV Last administered on 01/04/19 06:19; Admin Dose 5 MG; Start 12/17/18 at 12:00 Diltiazem HCl 125 ml @ 5 mls/hr TITRATE IV ; Start 12/29/18 at 09:30 Levothyroxine Sodium (Synthroid) 75 mcg BEFORE BREAKFAST GTB Last administered on 01/04/19 06:19; Admin Dose 75 MCG; Start 12/30/18 at 07:00 Albuterol (Ventolin Hfa) 4 puff Q4H RESP THERAPY PRN INH WHEEZING; Start 12/30/18 at 08:00 Caspofungin 50 mg/ Sodium Chloride 250 ml @ 250 mls/hr Q24H IVPB Last administered on 01/03/19 13:31; Admin Dose 250 MLS/HR; Start 12/31/18 at 13:00 Phenylephrine HCl 250 ml @ 75 mls/hr TITRATE IV ; Start 12/30/18 at 17:00 Eye Lubricant (Akwa Oint) 1 applic Q6 BOTH EYES Last administered on 01/04/19 06:18; Admin Dose 1 APPLIC; Start 01/01/19 at 12:00 Eye Lubricant (Artificial Tears Oph) 2 drop Q6 BOTH EYES Last administered on 01/04/19 06:18; Admin Dose 2 DROP; Start 01/01/19 at 12:00 Norepinephrine 250 ml @ 1.875 mls/ hr TITRATE IV Last administered on 01/01/19at 17:54; Admin Dose 3.75 MLS/HR; Start 01/01/19 at 11:30 Dextrose 1,000 ml @ 40 mls/hr Q24H IV Last administered on 01/03/19at 21:42; Admin Dose 40 MLS/HR; Start 01/01/19 at 12:00 Amiodarone HCl 100 ml @ 600 mls/hr DAILY IV Last administered on 01/02/19at 08:03; Admin Dose 600 MLS/HR; Start 01/01/19 at 14:00 Diagnostic Test (Pha) (Accu-Chek) 1 ea Q4 XX Last administered on 01/03/19at 05:49; Admin Dose 1 EA; Start 01/02/19 at 09:00 Insulin Aspart (Novolog Insulin Pen) NOVOLOG *MILD* ALGORI... Q4 SC ; Start 01/02/19 at 13:00 Meropenem/Sodium Chloride 50 ml @ 100 mls/hr Q12H IVPB Last administered on 01/04/19at 01:02; Admin Dose 100 MLS/HR; Start 01/04/19 at 00:00 Clindamycin HCl/ Dextrose 50 ml @ 100 mls/hr Q8H IVPB Last administered on 01/04/19at 09:12; Admin Dose 100 MLS/HR; Start 01/04/19 at 01:00 Assessment/Plan Hospital Course (Demo Recall) IMP: 1. Ventilator-dependent respiratory failure, status post tracheostomy. 2. Gram-negative sepsis. Septic shock. 3. End-stage renal disease on hemodialysis. 4. Cardiomyopathy. 5. Thrombocytopenia. 6. Anemia. 7. VRE of PEG tube site. Status post transfusion PRBCs and platelets RECS: 1. Continue vent support 2. Continue antibiotics as per ID 3. Hemodialysis per nephrology 4. Continue tube feeding as tolerated Discussed with family, they are scheduled to have family meeting regarding goals of care. Understand prognosis is extremely poor. Critical care time 40 minutes. NINA MORRIS MD, [facility] January 04, 2019 09:37
--- NOTE | 2019-01-04 11:30 | CONS ---
Assessment/Plan Assessment/Plan Hospital Course (Demo Recall) ID PROGRESS NOTE CURRENT ABX: DAY # =>Clindamycin + Merrem + CANCIDAS 01/04/19 0500 01/04/19 0500 24H INTERVAL SUMMARY * Remains on pressors - no bleeding per RN * 58 yo F -- Cachexia chronic debility -extremely frail w/generalized weakness * Pancytopenia * INVASIVES: Right upper thigh Davie catheter, left femoral triple-lumen catheter, trach DIAGNOSTIC IMAGING * 01/01/19 CXR: Right greater than left interstitial opacities which may be on the basis of air space disease or edema. MICRO/OTHER * * 01/01/19 GT-drainage: WOUND CULTURE Preliminary Organism 1 K.PNEUMONIAE SSP PNEUMONIAE QUANTITY 1+ Organism 2 ENTEROCOCCUS SPECIES= VRE QUANTITY 1+ * 11/25/18 RESP CX (+) GERARDO ALBICANS * 11/23/2018 BCX (-) * 11/21/18 WOUND CULTURE Final Organism 1 K PNEUMO ESBL QUANTITY SCANT GROWTH . MULTI DRUG RESISTANT ORGANISM Organism 2 GERARDO ALBICANS QUANTITY SCANT GROWTH KLEB PNEUM KLEB PNEUM M.I.C. RX M.I.C. RX --------- --- --------- --- AMIKACIN 16 S CEFAZOLIN R CEFEPIME 2 S CEFOTAXIME R CIPROFLOXACIN 2 I GENTAMICIN >=16 R LEVOFLOXACIN 1 S MEROPENEM 0.094 S TOBRAMYCIN >=16 R TRIMETHOPRIM/SULFAMETHOXAZOLE >=320 R PIPERACILLIN/TAZOBACTAM 16 S * 11/21/2018 BCX == BLOOD CULTURE GRAM NEGATIVE MERARY * BLOOD CULTURE Final KLEB PNEUM KLEB PNEUM M.I.C. RX M.I.C. RX --------- --- --------- --- AMIKACIN 16 S CEFAZOLIN R CEFOTAXIME R CIPROFLOXACIN 2 I GENTAMICIN >=16 R LEVOFLOXACIN 1 S MEROPENEM 0.064 S TOBRAMYCIN >=16 R TRIMETHOPRIM/SULFAMETHOXAZOLE >=320 R PIPERACILLIN/TAZOBACTAM 16 S PHYSICAL EXAMINATION: GENERAL: Frail, cachectic, F w/hypoxic resp failure HEENT: AT, NC, anicteric NECK: Supple (+)trach == sternocleidomastoid retractions CHEST: Equal chest rise bilaterally==> Vented HEART: RRR ABDOMEN: Mild distended EXTREMITIES: Warm, dry, mild edema x4 extremities, skin tears BLExt, * multiple ecchymotic areas and bruises, left upper thigh dressing present SKIN: No rash, no diaphoresis, STG 3 sacral decubs ID ASSESSMENT 58 yo F admit with: 1. GNR SEPSIS w/hypotension -- septic shock vs hypovolemic vs combination, w/cold shock, leukopenia = RESOLVED * 11/21/18 BCX (+) Organism 1 GRAM NEGATIVE MERARY = KP-ESBL * Septic left lower extremity open wound w/hx of infected leg graft * Presumptive spontaneous bacterial peritonitis = DDX due to hx of ascites, presence of PD catheter, s/p Paracentesis prior admit to [facility] 2. Acute encephalopathy on admission: Secondary to severe hypoglycemia * Head CT negative for acute findings 3. Hypercapnic respiratory failure => Supplemental O2 + BiPAP PRN * Pulmonary edema, possible HCAP * 11/21/18 CXR: IMPRESSION:1. Changes are again seen suggesting pulmonary congestion/edema with small to moderate effusions and atelectasis or other consolidation. 4. Left lower extremity wound and pitting edema= PAD s/p bypass graft SEP 2018 * 11/21/18 WOUND CULTURE Final Organism 1 K PNEUMO ESBL QUANTITY SCANT GROWTH . MULTI DRUG RESISTANT ORGANISM Organism 2 GERARDO ALBICANS * s/p recent admission for 2 weeks at [facility], where she had procedure. * Venous study was negative for DVT here [facility] on admission 5. ESRD: Nephrology consulted == HD 6. Hx of chronic peritoneal dialysis w/indwelling PD catheter that is currently not being removed because of the severe thrombocytopenia. * PLAN PER NOTES: This can be addressed at [facility] where she usually gets her care 7. Ascites: Status post paracentesis about 5 weeks ago with removal of 4.5 L * At risk SBP due to ascites and indwelling PD catheter 8. Hypertension: 9. Pacemaker post implant status 10. Pancytopenia: Patient had workup here during recent hospitalization. 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 Hypothyroidism-> Synthroid on board 12. Failure to thrive: Patient with weight loss protein sharron malnutrition 13. STG 3 SACRAL DECUB = POA 14. S/P B mastoiditis and acute sinusitis per CT=> TREATED W/ABX 15. GT SITE CELLULITIS 01/01/19 GT-drainage: WOUND CULTURE Preliminary Organism 1 K.PNEUMONIAE SSP PNEUMONIAE QUANTITY 1+ Organism 2 ENTEROCOCCUS SPECIES= VRE QUANTITY 1+ (-)MRSA Nares ABX ALLERGIES: PCN/Vanco IV INVASIVES: Right upper thigh Davie catheter, left femoral triple-lumen catheter, endotracheal tube, orogastric tube, midline CURRENT ABX: DAY # Clindamycin + Merrem + CANCIDAS ID RECOMMENDATIONS/PLAN: 1. Remains on current ABX for persistent sepsis and suspicion of infected lower extremity bypass graft 2. Chem code status noted 3. Awaiting final results GT site micro drainage ON THE KP -- VRE noted = resistant to Ampicillin, NO ZYVOX due to PLT @ 3000 . Consultation Date/Type/Reason Admit Date/Time Nov 21, 2018 at 04:53 Initial Consult Date Requesting Provider: RENÉE SKINNER Date/Time of Note DATE: 01/04/19 TIME: 11:27 Exam/Review of Systems Exam Vitals Vital Signs Date Temp Pulse Resp B/P (MAP) Pulse Ox O2 O2 Flow FiO2 Time Delivery Rate 01/04/19 70 18 104/56 100 Mechanical 10:45 (72) Ventilator 01/04/19 40 09:10 01/04/19 97.4 08:00 Intake and Output 01/03/19 01/03/19 01/04/19 1515:00 23:00 07:00 IntakeIntake Total 633.125 ml 688.250 ml 402.500 ml OutputOutput Total 0 ml 300 ml 500 ml BalanceBalance 633.125 ml 388.250 ml -97.500 ml Results Result Diagram: 01/04/19 0500 01/04/19 0500 Results 24hrs Laboratory Tests Test 01/03/19 13:36 01/03/19 15:49 01/03/19 18:30 01/03/19 18:45 Bedside Glucose 87 260 H 137 White Blood 4.2 L Count Red Blood Count 2.69 L Hemoglobin 7.9 L Hematocrit 22.5 L Mean Corpuscular 83.6 Volume Mean Corpuscular 29.4 Hemoglobin Mean Corpuscular 35.1 Hemoglobin Anh nt Red Cell 14.5 Distribution Width Platelet Count 3 #*L Mean Platelet Volume Immature 0.500 H Granulocytes % Neutrophils % Segmented 79 H Neutrophils % (Manual) Band Neutrophils 7 H % (Manual) Lymphocytes % Lymphocytes % 7 L (Manual) Monocytes % Monocytes % 6 (Manual) Eosinophils % Eosinophils % 1 (Manual) Basophils % Nucleated Red 1 H Blood Cells % Immature 0.020 Granulocytes # Neutrophils # Neutrophils # 3.3 (Manual) Band Neutrophils 0.2 # Lymphocytes 0.2 L (Manual) Lymphocytes # Monocytes # Monocytes # 0.2 L (Manual) Eosinophils # Basophils # Nucleated Red Blood Cells # Giant Platelets 2 H Polychromasia 1+ Poikilocytosis 3+ Anisocytosis 2+ Macrocytosis 2+ Test 01/03/19 20:12 01/03/19 21:40 01/04/19 01:06 01/04/19 04:27 White Blood 3.1 #L Count Red Blood Count 2.51 L Hemoglobin 7.4 L Hematocrit 21.1 L Mean Corpuscular 84.1 Volume Mean Corpuscular 29.5 Hemoglobin Mean Corpuscular 35.1 Hemoglobin Anh nt Red Cell 14.6 H Distribution Width Platelet Count 30 #L Mean Platelet 10.7 H Volume Immature 1.000 H Granulocytes % Neutrophils % Segmented 78 H Neutrophils % (Manual) Band Neutrophils 7 H % (Manual) Lymphocytes % Lymphocytes % 11 L (Manual) Reactive 1 H Lymphocytes % (Manual) Monocytes % Eosinophils % Basophils % Metamyelocytes % 3 H (manual) Nucleated Red 1 H Blood Cells % Immature 0.030 Granulocytes # Neutrophils # Neutrophils # 2.4 (Manual) Band Neutrophils 0.2 # Lymphocytes 0.3 L (Manual) Lymphocytes # Reactive 0.0 Lymphocytes # Monocytes # Eosinophils # Basophils # Metamyelocytes # 0.0 Nucleated Red Blood Cells # Platelet SIG DECREASED Estimate Giant Platelets 2 H Polychromasia 3+ Poikilocytosis 3+ Anisocytosis 3+ Microcytosis 2+ Macrocytosis 2+ Acanthocytes 2+ Bedside Glucose 71 79 81 Test 01/04/19 05:00 01/04/19 05:20 01/04/19 08:12 01/04/19 08:40 White Blood 2.2 #L Count Red Blood Count 2.27 L Hemoglobin 6.8 *L Hematocrit 18.9 L Mean Corpuscular 83.3 Volume Mean Corpuscular 30.0 Hemoglobin Mean Corpuscular 36.0 Hemoglobin Anh nt Red Cell 14.2 Distribution Width Platelet Count 3 #*L Mean Platelet Volume Immature 0.500 H Granulocytes % Neutrophils % Segmented 62 Neutrophils % (Manual) Band Neutrophils 2 % (Manual) Lymphocytes % Lymphocytes % 29 (Manual) Reactive 1 H Lymphocytes % (Manual) Monocytes % Monocytes % 2 (Manual) Eosinophils % Eosinophils % 5 (Manual) Basophils % Nucleated Red 1 H Blood Cells % Immature 0.010 Granulocytes # Neutrophils # Neutrophils # 1.4 L (Manual) Band Neutrophils 0.0 # Lymphocytes 0.6 L (Manual) Lymphocytes # Reactive 0.0 Lymphocytes # Monocytes # Monocytes # 0.0 L (Manual) Eosinophils # Basophils # Nucleated Red Blood Cells # Platelet SIG DECREASED Estimate Giant Platelets 4 H Anisocytosis 1+ Macrocytosis 1+ Sodium Level 135 Potassium Level 3.6 Chloride Level 101 Carbon Dioxide 26 Level Anion Gap 8 Blood Urea 54 #H Nitrogen Creatinine 0.58 Est Glomerular > 60 Filtrat Rate mL/min Glucose Level 76 Calcium Level 7.5 L Phosphorus Level 2.9 Magnesium Level 1.8 Lab Scanned BLOOD TRANSFUSI Report ON Bedside Glucose 58 L 146 Test 01/04/19 09:12 Bedside Glucose 118 Medications Medication Current Medications Glucose (Glutose) 15 gm Q15M PRN PO DECREASED GLUCOSE; Start 11/23/18 at 13:30 Glucose (Glutose) 22.5 gm Q15M PRN PO DECREASED GLUCOSE; Start 11/23/18 at 13:30 Dextrose (D50w Syringe) 25 ml Q15M PRN IV DECREASED GLUCOSE Last administered on 01/04/19at 08:24; Admin Dose 25 ML; Start 11/23/18 at 13:30 Dextrose (D50w Syringe) 50 ml Q15M PRN IV DECREASED GLUCOSE Last administered on 01/03/19at 18:00; Admin Dose 50 ML; Start 11/23/18 at 13:30 Glucagon (Glucagen) 1 mg Q15M PRN IM DECREASED GLUCOSE; Start 11/23/18 at 13:30 Glucose (Glutose) 15 gm Q15M PRN BUCCAL DECREASED GLUCOSE; Start 11/23/18 at 13:30 Albumin Human 100 ml @ 100 mls/hr DURING DIALYSIS PRN IV HYPOTENSION DURING HD Last administered on 01/03/19 21:52; Admin Dose 100 MLS/HR; Start 11/26/18 at 14:00 Collagenase (Santyl) 1 applic DAILY TOP Last administered on 01/03/19 15:58; Admin Dose 1 APPLIC; Start 12/01/18 at 16:30 Acetaminophen (Tylenol Liquid) 650 mg Q6H PRN NGT PAIN LEVEL 1-3 OR FEVER Last administered on 12/28/18 06:03; Admin Dose 650 MG; Start 12/06/18 at 09:00 Midodrine (Proamatine) 5 mg TID@09,13,17 GTB Last administered on 01/01/19 14:00; Admin Dose 5 MG; Start 12/07/18 at 09:00 Epoetin Margarito-epbx (RETACRIT(esrd)) 10,000 unit MoWeFr@1700 SC Last administered on 01/01/19 16:54; Admin Dose 10,000 UNIT; Start 12/11/18 at 17:00 Lorazepam (Ativan) 1 mg Q4H PRN IV AGITATION/ANXIETY Last administered on 12/19/18 05:41; Admin Dose 1 MG; Start 12/15/18 at 11:00 Morphine Sulfate (morphine) 1 mg Q4H PRN IV SEVERE PAIN LEVEL 7-10 Last administered on 01/04/19 08:23; Admin Dose 1 MG; Start 12/15/18 at 11:00 Metoclopramide HCl (Reglan) 5 mg Q8 IV Last administered on 01/04/19 06:19; Admin Dose 5 MG; Start 12/17/18 at 12:00 Diltiazem HCl 125 ml @ 5 mls/hr TITRATE IV ; Start 12/29/18 at 09:30 Levothyroxine Sodium (Synthroid) 75 mcg BEFORE BREAKFAST GTB Last administered on 01/04/19 06:19; Admin Dose 75 MCG; Start 12/30/18 at 07:00 Albuterol (Ventolin Hfa) 4 puff Q4H RESP THERAPY PRN INH WHEEZING; Start 12/30/18 at 08:00 Caspofungin 50 mg/ Sodium Chloride 250 ml @ 250 mls/hr Q24H IVPB Last administered on 01/03/19 13:31; Admin Dose 250 MLS/HR; Start 12/31/18 at 13:00 Phenylephrine HCl 250 ml @ 75 mls/hr TITRATE IV ; Start 12/30/18 at 17:00 Eye Lubricant (Akwa Oint) 1 applic Q6 BOTH EYES Last administered on 01/04/19 06:18; Admin Dose 1 APPLIC; Start 01/01/19 at 12:00 Eye Lubricant (Artificial Tears Oph) 2 drop Q6 BOTH EYES Last administered on 01/04/19 06:18; Admin Dose 2 DROP; Start 01/01/19 at 12:00 Norepinephrine 250 ml @ 1.875 mls/ hr TITRATE IV Last administered on 01/01/19 17:54; Admin Dose 3.75 MLS/HR; Start 01/01/19 at 11:30 Dextrose 1,000 ml @ 40 mls/hr Q24H IV Last administered on 01/03/19 21:42; Admin Dose 40 MLS/HR; Start 01/01/19 at 12:00 Amiodarone HCl 100 ml @ 600 mls/hr DAILY IV Last administered on 01/02/19 08:03; Admin Dose 600 MLS/HR; Start 01/01/19 at 14:00 Diagnostic Test (Pha) (Accu-Chek) 1 ea Q4 XX Last administered on 01/03/19 05:49; Admin Dose 1 EA; Start 01/02/19 at 09:00 Insulin Aspart (Novolog Insulin Pen) NOVOLOG *MILD* ALGORI... Q4 SC ; Start 01/02/19 at 13:00 Meropenem/Sodium Chloride 50 ml @ 100 mls/hr Q12H IVPB Last administered on 01/04/19 01:02; Admin Dose 100 MLS/HR; Start 01/04/19 at 00:00 Clindamycin HCl/ Dextrose 50 ml @ 100 mls/hr Q8H IVPB Last administered on 01/04/19 09:12; Admin Dose 100 MLS/HR; Start 01/04/19 at 01:00 MARCO LOZADA NP January 04, 2019 11:30
--- NOTE | 2019-01-04 11:47 | PN ---
Date/Time of Note Date/Time of Note DATE: 01/04/19 TIME: 11:42 Assessment/Plan VTE Prophylaxis Risk score (from Ns)>0 risk: 9 SCD applied (from Ns): Yes Pharmacological prophylaxis: other (scds) Lines/Catheters IV Catheter Type (from [facility]): Mid Line Urinary Cath still in place: No Assessment/Plan Hospital Course Assessment: Leaking G-tube with wound and drainage -WOUND CULTURE- Preliminary K.PNEUMONIAE SSP PNEUMONIAE/VRE Patient is in contact isolation for Klebsiella in the blood Severe caloric deficiency Chronic respiratory failure status post tracheostomy Liver cirrhosis Chronic kidney failure -dialysis Pancytopenia -Profound thrombocytopenia Left lower extremity wound and pitting edema= PAD s/p bypass graft SEP 2018 Plan: Keep the tube clamped- G-tube may need to be removed- however given Plt and malnutrition concerns removal may cause more harm- due to poor healing Continue topical care around the stoma/Antibiotics per ID Will consider to restart TF however if leaking continues will have to stop Other forms of nutrition will need to be consider will recheck LFT in morning- recommend to avoid TPN if possible Family meeting in bear future Monitor labs Patient seen in collaboration with Subjective: Course reviewed with nursing staff Patient interviewed and examined All labs, imaging and other results reviewed The patient remains in ICU, noted decrease in HGB- currently receiving PRBC's- pt s/p PLT transfusion- with short increase in PLT post transfusion, but has decrease back to 3 today Patient remains in isolation. Will keep g-tube clamped x24 hours- possible consider restarting TF tomorrow- if leaking continues will need to consider other forms of nutrition PHYSICAL EXAMINATION: GENERAL: Cachectic ill-appearing intubated on pressors SKIN: dialysis catheter EYES: Pupils equal reactive to light, no discharge. EARS/NOSE AND THROAT: Ears normal, nose normal, oropharynx normal. NECK: Supple, no masses CHEST: Inspection within normal limits. CARDIOVASCULAR: Heart: Regular rate and rhythm, paced RESPIRATORY: Lungs clear to auscultation GASTROINTESTINAL AND LIVER: Abdomen: Soft, non tenderness, g-tube,no hernias, no masses, no rebound tenderness, normoactive bowel sounds. Rectal: Deferred. Result Diagram: 01/04/19 0500 01/04/19 0500 Results 24hrs Laboratory Tests Test 01/03/19 13:36 01/03/19 15:49 01/03/19 18:30 01/03/19 18:45 Bedside Glucose 87 260 H 137 White Blood 4.2 L Count Red Blood Count 2.69 L Hemoglobin 7.9 L Hematocrit 22.5 L Mean Corpuscular 83.6 Volume Mean Corpuscular 29.4 Hemoglobin Mean Corpuscular 35.1 Hemoglobin Anh nt Red Cell 14.5 Distribution Width Platelet Count 3 #*L Mean Platelet Volume Immature 0.500 H Granulocytes % Neutrophils % Segmented 79 H Neutrophils % (Manual) Band Neutrophils 7 H % (Manual) Lymphocytes % Lymphocytes % 7 L (Manual) Monocytes % Monocytes % 6 (Manual) Eosinophils % Eosinophils % 1 (Manual) Basophils % Nucleated Red 1 H Blood Cells % Immature 0.020 Granulocytes # Neutrophils # Neutrophils # 3.3 (Manual) Band Neutrophils 0.2 # Lymphocytes 0.2 L (Manual) Lymphocytes # Monocytes # Monocytes # 0.2 L (Manual) Eosinophils # Basophils # Nucleated Red Blood Cells # Giant Platelets 2 H Polychromasia 1+ Poikilocytosis 3+ Anisocytosis 2+ Macrocytosis 2+ Test 01/03/19 20:12 01/03/19 21:40 01/04/19 01:06 01/04/19 04:27 White Blood 3.1 #L Count Red Blood Count 2.51 L Hemoglobin 7.4 L Hematocrit 21.1 L Mean Corpuscular 84.1 Volume Mean Corpuscular 29.5 Hemoglobin Mean Corpuscular 35.1 Hemoglobin Anh nt Red Cell 14.6 H Distribution Width Platelet Count 30 #L Mean Platelet 10.7 H Volume Immature 1.000 H Granulocytes % Neutrophils % Segmented 78 H Neutrophils % (Manual) Band Neutrophils 7 H % (Manual) Lymphocytes % Lymphocytes % 11 L (Manual) Reactive 1 H Lymphocytes % (Manual) Monocytes % Eosinophils % Basophils % Metamyelocytes % 3 H (manual) Nucleated Red 1 H Blood Cells % Immature 0.030 Granulocytes # Neutrophils # Neutrophils # 2.4 (Manual) Band Neutrophils 0.2 # Lymphocytes 0.3 L (Manual) Lymphocytes # Reactive 0.0 Lymphocytes # Monocytes # Eosinophils # Basophils # Metamyelocytes # 0.0 Nucleated Red Blood Cells # Platelet SIG DECREASED Estimate Giant Platelets 2 H Polychromasia 3+ Poikilocytosis 3+ Anisocytosis 3+ Microcytosis 2+ Macrocytosis 2+ Acanthocytes 2+ Bedside Glucose 71 79 81 Test 01/04/19 05:00 01/04/19 05:20 01/04/19 08:12 01/04/19 08:40 White Blood 2.2 #L Count Red Blood Count 2.27 L Hemoglobin 6.8 *L Hematocrit 18.9 L Mean Corpuscular 83.3 Volume Mean Corpuscular 30.0 Hemoglobin Mean Corpuscular 36.0 Hemoglobin Anh nt Red Cell 14.2 Distribution Width Platelet Count 3 #*L Mean Platelet Volume Immature 0.500 H Granulocytes % Neutrophils % Segmented 62 Neutrophils % (Manual) Band Neutrophils 2 % (Manual) Lymphocytes % Lymphocytes % 29 (Manual) Reactive 1 H Lymphocytes % (Manual) Monocytes % Monocytes % 2 (Manual) Eosinophils % Eosinophils % 5 (Manual) Basophils % Nucleated Red 1 H Blood Cells % Immature 0.010 Granulocytes # Neutrophils # Neutrophils # 1.4 L (Manual) Band Neutrophils 0.0 # Lymphocytes 0.6 L (Manual) Lymphocytes # Reactive 0.0 Lymphocytes # Monocytes # Monocytes # 0.0 L (Manual) Eosinophils # Basophils # Nucleated Red Blood Cells # Platelet SIG DECREASED Estimate Giant Platelets 4 H Anisocytosis 1+ Macrocytosis 1+ Sodium Level 135 Potassium Level 3.6 Chloride Level 101 Carbon Dioxide 26 Level Anion Gap 8 Blood Urea 54 #H Nitrogen Creatinine 0.58 Est Glomerular > 60 Filtrat Rate mL/min Glucose Level 76 Calcium Level 7.5 L Phosphorus Level 2.9 Magnesium Level 1.8 Lab Scanned BLOOD TRANSFUSI Report ON Bedside Glucose 58 L 146 Test 01/04/19 09:12 Bedside Glucose 118 Exam/Review of Systems Exam Vitals Vital Signs Date Temp Pulse Resp B/P (MAP) Pulse Ox O2 O2 Flow FiO2 Time Delivery Rate 01/04/19 66 18 100 40 11:36 01/04/19 104/56 Mechanical 10:45 (72) Ventilator 01/04/19 97.4 08:00 Intake and Output 01/03/19 01/03/19 01/04/19 1515:00 23:00 07:00 IntakeIntake Total 633.125 ml 688.250 ml 402.500 ml OutputOutput Total 0 ml 300 ml 500 ml BalanceBalance 633.125 ml 388.250 ml -97.500 ml Results Results 24hrs Laboratory Tests Test 01/03/19 13:36 01/03/19 15:49 01/03/19 18:30 01/03/19 18:45 Bedside Glucose 87 260 H 137 White Blood 4.2 L Count Red Blood Count 2.69 L Hemoglobin 7.9 L Hematocrit 22.5 L Mean Corpuscular 83.6 Volume Mean Corpuscular 29.4 Hemoglobin Mean Corpuscular 35.1 Hemoglobin Anh nt Red Cell 14.5 Distribution Width Platelet Count 3 #*L Mean Platelet Volume Immature 0.500 H Granulocytes % Neutrophils % Segmented 79 H Neutrophils % (Manual) Band Neutrophils 7 H % (Manual) Lymphocytes % Lymphocytes % 7 L (Manual) Monocytes % Monocytes % 6 (Manual) Eosinophils % Eosinophils % 1 (Manual) Basophils % Nucleated Red 1 H Blood Cells % Immature 0.020 Granulocytes # Neutrophils # Neutrophils # 3.3 (Manual) Band Neutrophils 0.2 # Lymphocytes 0.2 L (Manual) Lymphocytes # Monocytes # Monocytes # 0.2 L (Manual) Eosinophils # Basophils # Nucleated Red Blood Cells # Giant Platelets 2 H Polychromasia 1+ Poikilocytosis 3+ Anisocytosis 2+ Macrocytosis 2+ Test 01/03/19 20:12 01/03/19 21:40 01/04/19 01:06 01/04/19 04:27 White Blood 3.1 #L Count Red Blood Count 2.51 L Hemoglobin 7.4 L Hematocrit 21.1 L Mean Corpuscular 84.1 Volume Mean Corpuscular 29.5 Hemoglobin Mean Corpuscular 35.1 Hemoglobin Anh nt Red Cell 14.6 H Distribution Width Platelet Count 30 #L Mean Platelet 10.7 H Volume Immature 1.000 H Granulocytes % Neutrophils % Segmented 78 H Neutrophils % (Manual) Band Neutrophils 7 H % (Manual) Lymphocytes % Lymphocytes % 11 L (Manual) Reactive 1 H Lymphocytes % (Manual) Monocytes % Eosinophils % Basophils % Metamyelocytes % 3 H (manual) Nucleated Red 1 H Blood Cells % Immature 0.030 Granulocytes # Neutrophils # Neutrophils # 2.4 (Manual) Band Neutrophils 0.2 # Lymphocytes 0.3 L (Manual) Lymphocytes # Reactive 0.0 Lymphocytes # Monocytes # Eosinophils # Basophils # Metamyelocytes # 0.0 Nucleated Red Blood Cells # Platelet SIG DECREASED Estimate Giant Platelets 2 H Polychromasia 3+ Poikilocytosis 3+ Anisocytosis 3+ Microcytosis 2+ Macrocytosis 2+ Acanthocytes 2+ Bedside Glucose 71 79 81 Test 01/04/19 05:00 01/04/19 05:20 01/04/19 08:12 01/04/19 08:40 White Blood 2.2 #L Count Red Blood Count 2.27 L Hemoglobin 6.8 *L Hematocrit 18.9 L Mean Corpuscular 83.3 Volume Mean Corpuscular 30.0 Hemoglobin Mean Corpuscular 36.0 Hemoglobin Anh nt Red Cell 14.2 Distribution Width Platelet Count 3 #*L Mean Platelet Volume Immature 0.500 H Granulocytes % Neutrophils % Segmented 62 Neutrophils % (Manual) Band Neutrophils 2 % (Manual) Lymphocytes % Lymphocytes % 29 (Manual) Reactive 1 H Lymphocytes % (Manual) Monocytes % Monocytes % 2 (Manual) Eosinophils % Eosinophils % 5 (Manual) Basophils % Nucleated Red 1 H Blood Cells % Immature 0.010 Granulocytes # Neutrophils # Neutrophils # 1.4 L (Manual) Band Neutrophils 0.0 # Lymphocytes 0.6 L (Manual) Lymphocytes # Reactive 0.0 Lymphocytes # Monocytes # Monocytes # 0.0 L (Manual) Eosinophils # Basophils # Nucleated Red Blood Cells # Platelet SIG DECREASED Estimate Giant Platelets 4 H Anisocytosis 1+ Macrocytosis 1+ Sodium Level 135 Potassium Level 3.6 Chloride Level 101 Carbon Dioxide 26 Level Anion Gap 8 Blood Urea 54 #H Nitrogen Creatinine 0.58 Est Glomerular > 60 Filtrat Rate mL/min Glucose Level 76 Calcium Level 7.5 L Phosphorus Level 2.9 Magnesium Level 1.8 Lab Scanned BLOOD TRANSFUSI Report ON Bedside Glucose 58 L 146 Test 01/04/19 09:12 Bedside Glucose 118 Medications Medication Current Medications Glucose (Glutose) 15 gm Q15M PRN PO DECREASED GLUCOSE; Start 11/23/18 at 13:30 Glucose (Glutose) 22.5 gm Q15M PRN PO DECREASED GLUCOSE; Start 11/23/18 at 13:30 Dextrose (D50w Syringe) 25 ml Q15M PRN IV DECREASED GLUCOSE Last administered on 01/04/19at 08:24; Admin Dose 25 ML; Start 11/23/18 at 13:30 Dextrose (D50w Syringe) 50 ml Q15M PRN IV DECREASED GLUCOSE Last administered on 01/03/19at 18:00; Admin Dose 50 ML; Start 11/23/18 at 13:30 Glucagon (Glucagen) 1 mg Q15M PRN IM DECREASED GLUCOSE; Start 11/23/18 at 13:30 Glucose (Glutose) 15 gm Q15M PRN BUCCAL DECREASED GLUCOSE; Start 11/23/18 at 13:30 Albumin Human 100 ml @ 100 mls/hr DURING DIALYSIS PRN IV HYPOTENSION DURING HD Last administered on 01/03/19 21:52; Admin Dose 100 MLS/HR; Start 11/26/18 at 14:00 Collagenase (Santyl) 1 applic DAILY TOP Last administered on 01/03/19 15:58; Admin Dose 1 APPLIC; Start 12/01/18 at 16:30 Acetaminophen (Tylenol Liquid) 650 mg Q6H PRN NGT PAIN LEVEL 1-3 OR FEVER Last administered on 12/28/18 06:03; Admin Dose 650 MG; Start 12/06/18 at 09:00 Midodrine (Proamatine) 5 mg TID@09,13,17 GTB Last administered on 01/01/19 14:00; Admin Dose 5 MG; Start 12/07/18 at 09:00 Epoetin Margarito-epbx (RETACRIT(esrd)) 10,000 unit MoWeFr@1700 SC Last administered on 01/01/19 16:54; Admin Dose 10,000 UNIT; Start 12/11/18 at 17:00 Lorazepam (Ativan) 1 mg Q4H PRN IV AGITATION/ANXIETY Last administered on 12/19/18 05:41; Admin Dose 1 MG; Start 12/15/18 at 11:00 Morphine Sulfate (morphine) 1 mg Q4H PRN IV SEVERE PAIN LEVEL 7-10 Last administered on 01/04/19 08:23; Admin Dose 1 MG; Start 12/15/18 at 11:00 Metoclopramide HCl (Reglan) 5 mg Q8 IV Last administered on 01/04/19at 06:19; Admin Dose 5 MG; Start 12/17/18 at 12:00 Diltiazem HCl 125 ml @ 5 mls/hr TITRATE IV ; Start 12/29/18 at 09:30 Levothyroxine Sodium (Synthroid) 75 mcg BEFORE BREAKFAST GTB Last administered on 01/04/19at 06:19; Admin Dose 75 MCG; Start 12/30/18 at 07:00 Albuterol (Ventolin Hfa) 4 puff Q4H RESP THERAPY PRN INH WHEEZING; Start 12/30/18 at 08:00 Caspofungin 50 mg/ Sodium Chloride 250 ml @ 250 mls/hr Q24H IVPB Last administered on 01/03/19 13:31; Admin Dose 250 MLS/HR; Start 12/31/18 at 13:00 Phenylephrine HCl 250 ml @ 75 mls/hr TITRATE IV ; Start 12/30/18 at 17:00 Eye Lubricant (Akwa Oint) 1 applic Q6 BOTH EYES Last administered on 01/04/19 06:18; Admin Dose 1 APPLIC; Start 01/01/19 at 12:00 Eye Lubricant (Artificial Tears Oph) 2 drop Q6 BOTH EYES Last administered on 01/04/19 06:18; Admin Dose 2 DROP; Start 01/01/19 at 12:00 Norepinephrine 250 ml @ 1.875 mls/ hr TITRATE IV Last administered on 01/01/19 17:54; Admin Dose 3.75 MLS/HR; Start 01/01/19 at 11:30 Dextrose 1,000 ml @ 40 mls/hr Q24H IV Last administered on 01/03/19 21:42; Admin Dose 40 MLS/HR; Start 01/01/19 at 12:00 Amiodarone HCl 100 ml @ 600 mls/hr DAILY IV Last administered on 01/02/19 08:03; Admin Dose 600 MLS/HR; Start 01/01/19 at 14:00 Diagnostic Test (Pha) (Accu-Chek) 1 ea Q4 XX Last administered on 01/03/19 05:49; Admin Dose 1 EA; Start 01/02/19 at 09:00 Insulin Aspart (Novolog Insulin Pen) NOVOLOG *MILD* ALGORI... Q4 SC ; Start 01/02/19 at 13:00 Meropenem/Sodium Chloride 50 ml @ 100 mls/hr Q12H IVPB Last administered on 01/04/19 01:02; Admin Dose 100 MLS/HR; Start 01/04/19 at 00:00 Clindamycin HCl/ Dextrose 50 ml @ 100 mls/hr Q8H IVPB Last administered on 01/04/19 09:12; Admin Dose 100 MLS/HR; Start 01/04/19 at 01:00 [place] FISH January 04, 2019 11:47
--- NOTE | 2019-01-04 13:07 | PN ---
Date/Time of Note Date/Time of Note DATE: 01/04/19 TIME: 13:06 Assessment/Plan Lines/Catheters IV Catheter Type (from Nrsg): Mid Line Moon in Place (from Nrsg): No Assessment/Plan Assessment/Plan Respiratory failure This post tracheostomy Trach site clean Bleeding We will continue vent support Pulmonary toilet Trach care Subjective 24 Hr Interval Summary Constitutional: no complaints, improved, ambulates, BM, flatus, urine output Pain Control: mild Exam/Review of Systems Vital Signs Vitals Vital Signs Date Temp Pulse Resp B/P (MAP) Pulse Ox O2 O2 Flow FiO2 Time Delivery Rate 01/04/19 70 12:00 01/04/19 18 100 40 11:36 01/04/19 104/56 Mechanical 10:45 (72) Ventilator 01/04/19 97.4 08:00 Intake and Output 01/03/19 01/03/19 01/04/19 1515:00 23:00 07:00 IntakeIntake Total 633.125 ml 688.250 ml 402.500 ml OutputOutput Total 0 ml 300 ml 500 ml BalanceBalance 633.125 ml 388.250 ml -97.500 ml Exam Eyes: nl conjunctiva, EOMI, nl lids, nl sclera ENMT: nl external ears & nose, nl lips & teeth, nl nasal mucosa & septum, mucosa pink and moist Neck: supple, non-tender Respiratory: clear to auscultation, normal air movement Cardiovascular: regular rate and rhythm, nl pulses Gastrointestinal: soft, nl liver, spleen, non-tender Musculoskeletal: nl extremities to inspection, nl gait and stance Results Result Diagram: 01/04/19 0500 01/04/19 0500 TAE PAN MD January 04, 2019 13:07
[2019-01-04] MEDS: CASPOFUNGIN 50 MG in SOD CHLORIDE 0.9% 250 ML IVPB SCH (13:13)
[2019-01-04] MEDS: DEXTROSE 10% 1,000 ML IV SCH ×2 (13:59→21:10)
--- NOTE | 2019-01-04 15:43 | PN ---
Date/Time of Note Date/Time of Note DATE: 01/04/19 TIME: 15:40 Assessment/Plan VTE Prophylaxis Risk score (from [facility] [place]0 risk: 9 SCD applied (from [facility] [place]): Yes Pharmacological prophylaxis: NA/contraindicated Pharm contraindication: thrombocytopenia Lines/Catheters IV C[facility]ter Type (from [facility] Mid Line Urinary Cath still in place: No Assessment/Plan Assessment/Plan 1. Chronic renal failure on dialysis. 2. Pancytopenia. Patient administered platelets with blunted response with subsequent return to 3,000 Patient had previously been administered IVIG on 01/01 with no response. In discussion with palliative care physician, case has been forwarded to bioethics with no further aggressive measures warranted or recommended in this difficult but futile case. I will defer readministration of IVIG at this time. Result Diagram: 01/04/19 0500 01/04/19 0500 Results 24hrs Laboratory Tests Test 01/03/19 15:49 01/03/19 18:30 01/03/19 18:45 01/03/19 20:12 White Blood 4.2 L 3.1 #L Count Red Blood Count 2.69 L 2.51 L Hemoglobin 7.9 L 7.4 L Hematocrit 22.5 L 21.1 L Mean Corpuscular 83.6 84.1 Volume Mean Corpuscular 29.4 29.5 Hemoglobin Mean Corpuscular 35.1 35.1 Hemoglobin Anh nt Red Cell 14.5 14.6 H Distribution Width Platelet Count 3 #*L 30 #L Mean Platelet 10.7 H Volume Immature 0.500 H 1.000 H Granulocytes % Neutrophils % Segmented 79 H 78 H Neutrophils % (Manual) Band Neutrophils 7 H 7 H % (Manual) Lymphocytes % Lymphocytes % 7 L 11 L (Manual) Monocytes % Monocytes % 6 (Manual) Eosinophils % Eosinophils % 1 (Manual) Basophils % Nucleated Red 1 H 1 H Blood Cells % Immature 0.020 0.030 Granulocytes # Neutrophils # Neutrophils # 3.3 2.4 (Manual) Band Neutrophils 0.2 0.2 # Lymphocytes 0.2 L 0.3 L (Manual) Lymphocytes # Monocytes # Monocytes # 0.2 L (Manual) Eosinophils # Basophils # Nucleated Red Blood Cells # Giant Platelets 2 H 2 H Polychromasia 1+ 3+ Poikilocytosis 3+ 3+ Anisocytosis 2+ 3+ Macrocytosis 2+ 2+ Bedside Glucose 260 H 137 Reactive 1 H Lymphocytes % (Manual) Metamyelocytes % 3 H (manual) Reactive 0.0 Lymphocytes # Metamyelocytes # 0.0 Platelet SIG DECREASED Estimate Microcytosis 2+ Acanthocytes 2+ Test 01/03/19 21:40 01/04/19 01:06 01/04/19 04:27 01/04/19 05:00 Bedside Glucose 71 79 81 White Blood 2.2 #L Count Red Blood Count 2.27 L Hemoglobin 6.8 *L Hematocrit 18.9 L Mean Corpuscular 83.3 Volume Mean Corpuscular 30.0 Hemoglobin Mean Corpuscular 36.0 Hemoglobin Anh nt Red Cell 14.2 Distribution Width Platelet Count 3 #*L Mean Platelet Volume Immature 0.500 H Granulocytes % Neutrophils % Segmented 62 Neutrophils % (Manual) Band Neutrophils 2 % (Manual) Lymphocytes % Lymphocytes % 29 (Manual) Reactive 1 H Lymphocytes % (Manual) Monocytes % Monocytes % 2 (Manual) Eosinophils % Eosinophils % 5 (Manual) Basophils % Nucleated Red 1 H Blood Cells % Immature 0.010 Granulocytes # Neutrophils # Neutrophils # 1.4 L (Manual) Band Neutrophils 0.0 # Lymphocytes 0.6 L (Manual) Lymphocytes # Reactive 0.0 Lymphocytes # Monocytes # Monocytes # 0.0 L (Manual) Eosinophils # Basophils # Nucleated Red Blood Cells # Platelet SIG DECREASED Estimate Giant Platelets 4 H Anisocytosis 1+ Macrocytosis 1+ Sodium Level 135 Potassium Level 3.6 Chloride Level 101 Carbon Dioxide 26 Level Anion Gap 8 Blood Urea 54 #H Nitrogen Creatinine 0.58 Est Glomerular > 60 Filtrat Rate mL/min Glucose Level 76 Calcium Level 7.5 L Phosphorus Level 2.9 Magnesium Level 1.8 Test 01/04/19 05:20 01/04/19 08:12 01/04/19 08:40 01/04/19 09:12 Lab Scanned BLOOD TRANSFUSI Report ON Bedside Glucose 58 L 146 118 Test 01/04/19 12:17 01/04/19 13:11 01/04/19 13:20 Bedside Glucose 50 L 107 109 Subjective 24 Hr Interval Summary Free Text/Dictation Patient denies pain. No bleeding noted. Patient administered platelets yesterday Exam/Review of Systems Exam Vitals Vital Signs Date Temp Pulse Resp B/P (MAP) Pulse Ox O2 O2 Flow FiO2 Time Delivery Rate 01/04/19 75 18 95/58 (70) 100 Mechanical 14:00 Ventilator 01/04/19 40 13:47 01/04/19 97.6 12:00 Intake and Output 01/03/19 01/03/19 01/04/19 1414:59 22:59 06:59 IntakeIntake Total 433.125 ml 834.500 ml 506.250 ml OutputOutput Total 0 ml 300 ml 500 ml BalanceBalance 433.125 ml 534.500 ml 6.250 ml Constitutional: frail Head: normocephalic Eyes: EOMI Neck: supple, non-tender Respiratory: clear to auscultation, normal air movement Cardiovascular: regular rate and rhythm, nl pulses Gastrointestinal: soft, non-tender, other (PEG tube) Extremities: normal pulses Results Results 24hrs Laboratory Tests Test 01/03/19 15:49 01/03/19 18:30 01/03/19 18:45 01/03/19 20:12 White Blood 4.2 L 3.1 #L Count Red Blood Count 2.69 L 2.51 L Hemoglobin 7.9 L 7.4 L Hematocrit 22.5 L 21.1 L Mean Corpuscular 83.6 84.1 Volume Mean Corpuscular 29.4 29.5 Hemoglobin Mean Corpuscular 35.1 35.1 Hemoglobin Anh nt Red Cell 14.5 14.6 H Distribution Width Platelet Count 3 #*L 30 #L Mean Platelet 10.7 H Volume Immature 0.500 H 1.000 H Granulocytes % Neutrophils % Segmented 79 H 78 H Neutrophils % (Manual) Band Neutrophils 7 H 7 H % (Manual) Lymphocytes % Lymphocytes % 7 L 11 L (Manual) Monocytes % Monocytes % 6 (Manual) Eosinophils % Eosinophils % 1 (Manual) Basophils % Nucleated Red 1 H 1 H Blood Cells % Immature 0.020 0.030 Granulocytes # Neutrophils # Neutrophils # 3.3 2.4 (Manual) Band Neutrophils 0.2 0.2 # Lymphocytes 0.2 L 0.3 L (Manual) Lymphocytes # Monocytes # Monocytes # 0.2 L (Manual) Eosinophils # Basophils # Nucleated Red Blood Cells # Giant Platelets 2 H 2 H Polychromasia 1+ 3+ Poikilocytosis 3+ 3+ Anisocytosis 2+ 3+ Macrocytosis 2+ 2+ Bedside Glucose 260 H 137 Reactive 1 H Lymphocytes % (Manual) Metamyelocytes % 3 H (manual) Reactive 0.0 Lymphocytes # Metamyelocytes # 0.0 Platelet SIG DECREASED Estimate Microcytosis 2+ Acanthocytes 2+ Test 01/03/19 21:40 01/04/19 01:06 01/04/19 04:27 01/04/19 05:00 Bedside Glucose 71 79 81 White Blood 2.2 #L Count Red Blood Count 2.27 L Hemoglobin 6.8 *L Hematocrit 18.9 L Mean Corpuscular 83.3 Volume Mean Corpuscular 30.0 Hemoglobin Mean Corpuscular 36.0 Hemoglobin Anh nt Red Cell 14.2 Distribution Width Platelet Count 3 #*L Mean Platelet Volume Immature 0.500 H Granulocytes % Neutrophils % Segmented 62 Neutrophils % (Manual) Band Neutrophils 2 % (Manual) Lymphocytes % Lymphocytes % 29 (Manual) Reactive 1 H Lymphocytes % (Manual) Monocytes % Monocytes % 2 (Manual) Eosinophils % Eosinophils % 5 (Manual) Basophils % Nucleated Red 1 H Blood Cells % Immature 0.010 Granulocytes # Neutrophils # Neutrophils # 1.4 L (Manual) Band Neutrophils 0.0 # Lymphocytes 0.6 L (Manual) Lymphocytes # Reactive 0.0 Lymphocytes # Monocytes # Monocytes # 0.0 L (Manual) Eosinophils # Basophils # Nucleated Red Blood Cells # Platelet SIG DECREASED Estimate Giant Platelets 4 H Anisocytosis 1+ Macrocytosis 1+ Sodium Level 135 Potassium Level 3.6 Chloride Level 101 Carbon Dioxide 26 Level Anion Gap 8 Blood Urea 54 #H Nitrogen Creatinine 0.58 Est Glomerular > 60 Filtrat Rate mL/min Glucose Level 76 Calcium Level 7.5 L Phosphorus Level 2.9 Magnesium Level 1.8 Test 01/04/19 05:20 01/04/19 08:12 01/04/19 08:40 01/04/19 09:12 Lab Scanned BLOOD TRANSFUSI Report ON Bedside Glucose 58 L 146 118 Test 01/04/19 12:17 01/04/19 13:11 01/04/19 13:20 Bedside Glucose 50 L 107 109 Medications Medication Current Medications Glucose (Glutose) 15 gm Q15M PRN PO DECREASED GLUCOSE; Start 11/23/18 at 13:30 Glucose (Glutose) 22.5 gm Q15M PRN PO DECREASED GLUCOSE; Start 11/23/18 at 13:30 Dextrose (D50w Syringe) 25 ml Q15M PRN IV DECREASED GLUCOSE Last administered on 01/04/19at 12:20; Admin Dose 25 ML; Start 11/23/18 at 13:30 Dextrose (D50w Syringe) 50 ml Q15M PRN IV DECREASED GLUCOSE Last administered on 01/03/19 18:00; Admin Dose 50 ML; Start 11/23/18 at 13:30 Glucagon (Glucagen) 1 mg Q15M PRN IM DECREASED GLUCOSE; Start 11/23/18 at 13:30 Glucose (Glutose) 15 gm Q15M PRN BUCCAL DECREASED GLUCOSE; Start 11/23/18 at 13:30 Albumin Human 100 ml @ 100 mls/hr DURING DIALYSIS PRN IV HYPOTENSION DURING HD Last administered on 01/03/19 21:52; Admin Dose 100 MLS/HR; Start 11/26/18 at 14:00 Collagenase (Santyl) 1 applic DAILY TOP Last administered on 01/03/19 15:58; Admin Dose 1 APPLIC; Start 12/01/18 at 16:30 Acetaminophen (Tylenol Liquid) 650 mg Q6H PRN NGT PAIN LEVEL 1-3 OR FEVER Last administered on 12/28/18 06:03; Admin Dose 650 MG; Start 12/06/18 at 09:00 Midodrine (Proamatine) 5 mg TID@09,13,17 GTB Last administered on 01/01/19 14:00; Admin Dose 5 MG; Start 12/07/18 at 09:00 Epoetin Margarito-epbx (RETACRIT(esrd)) 10,000 unit MoWeFr@1700 SC Last administered on 01/01/19 16:54; Admin Dose 10,000 UNIT; Start 12/11/18 at 17:00 Lorazepam (Ativan) 1 mg Q4H PRN IV AGITATION/ANXIETY Last administered on 12/19/18 05:41; Admin Dose 1 MG; Start 12/15/18 at 11:00 Morphine Sulfate (morphine) 1 mg Q4H PRN IV SEVERE PAIN LEVEL 7-10 Last adm inistered on 01/04/19 08:23; Admin Dose 1 MG; Start 12/15/18 at 11:00 Metoclopramide HCl (Reglan) 5 mg Q8 IV Last administered on 01/04/19 13:59; Admin Dose 5 MG; Start 12/17/18 at 12:00 Diltiazem HCl 125 ml @ 5 mls/hr TITRATE IV ; Start 12/29/18 at 09:30 Levothyroxine Sodium (Synthroid) 75 mcg BEFORE BREAKFAST GTB Last administered on 01/04/19 06:19; Admin Dose 75 MCG; Start 12/30/18 at 07:00 Albuterol (Ventolin Hfa) 4 puff Q4H RESP THERAPY PRN INH WHEEZING; Start 12/30/18 at 08:00 Caspofungin 50 mg/ Sodium Chloride 250 ml @ 250 mls/hr Q24H IVPB Last administered on 01/04/19 13:13; Admin Dose 250 MLS/HR; Start 12/31/18 at 13:00 Phenylephrine HCl 250 ml @ 75 mls/hr TITRATE IV ; Start 12/30/18 at 17:00 Eye Lubricant (Akwa Oint) 1 applic Q6 BOTH EYES Last administered on 01/04/19 12:10; Admin Dose 1 APPLIC; Start 01/01/19 at 12:00 Eye Lubricant (Artificial Tears Oph) 2 drop Q6 BOTH EYES Last administered on 01/04/19 12:10; Admin Dose 2 DROP; Start 01/01/19 at 12:00 Norepinephrine 250 ml @ 1.875 mls/ hr TITRATE IV Last administered on 01/01/19 17:54; Admin Dose 3.75 MLS/HR; Start 01/01/19 at 11:30 Amiodarone HCl 100 ml @ 600 mls/hr DAILY IV Last administered on 01/02/19 08:03; Admin Dose 600 MLS/HR; Start 01/01/19 at 14:00 Diagnostic Test (Pha) (Accu-Chek) 1 ea Q4 XX Last administered on 01/03/19at 05:49; Admin Dose 1 EA; Start 01/02/19 at 09:00 Insulin Aspart (Novolog Insulin Pen) NOVOLOG *MILD* ALGORI... Q4 SC ; Start 01/02/19 at 13:00 Meropenem/Sodium Chloride 50 ml @ 100 mls/hr Q12H IVPB Last administered on 01/04/19 12:08; Admin Dose 100 MLS/HR; Start 01/04/19 at 00:00 Clindamycin HCl/ Dextrose 50 ml @ 100 mls/hr Q8H IVPB Last administered on 12/10 09:12; Admin Dose 100 MLS/HR; Start 01/04/19 at 01:00 Dextrose 1,000 ml @ 40 mls/hr Q24H IV Last administered on 01/04/19at 13:59; Admin Dose 40 MLS/HR; Start 01/04/19 at 13:30 LEAH LUNDBERG MD January 04, 2019 15:43
--- NOTE | 2019-01-04 15:55 | CONS ---
Assessment/Plan Assessment/Plan Assessment/Plan (Daily) Patient's blood pressure stable off Levophed, neurological function essentially unchanged. G-tube malfunction to now patient is being started on TPN other parameters including Thrombocytopenia Anemia Severely malnourished Recurrent respiratory failure Recurrent sepsis syndrome Fluid and electrolyte abnormalities corrected Patient is a chemical code only Consultation Date/Type/Reason Admit Date/Time Nov 21, 2018 at 04:53 Initial Consult Date Requesting Provider: RENÉE SKINNER Date/Time of Note DATE: 01/04/19 TIME: 15:53 Exam/Review of Systems Exam Vitals Vital Signs Date Temp Pulse Resp B/P (MAP) Pulse Ox O2 O2 Flow FiO2 Time Delivery Rate 01/04/19 75 18 95/58 (70) 100 Mechanical 14:00 Ventilator 01/04/19 40 13:47 01/04/19 97.6 12:00 Intake and Output 01/03/19 01/03/19 01/04/19 1414:59 22:59 06:59 IntakeIntake Total 433.125 ml 834.500 ml 506.250 ml OutputOutput Total 0 ml 300 ml 500 ml BalanceBalance 433.125 ml 534.500 ml 6.250 ml Constitutional: non-verbal, frail Neurological: lethargic, other (minimal response to anything) Results Result Diagram: 01/04/19 0500 01/04/19 0500 Results 24hrs Laboratory Tests Test 01/03/19 18:30 01/03/19 18:45 01/03/19 20:12 01/03/19 21:40 Bedside Glucose 260 H 137 71 White Blood 3.1 #L Count Red Blood Count 2.51 L Hemoglobin 7.4 L Hematocrit 21.1 L Mean Corpuscular 84.1 Volume Mean Corpuscular 29.5 Hemoglobin Mean Corpuscular 35.1 Hemoglobin Anh nt Red Cell 14.6 H Distribution Width Platelet Count 30 #L Mean Platelet 10.7 H Volume Immature 1.000 H Granulocytes % Neutrophils % Segmented 78 H Neutrophils % (Manual) Band Neutrophils 7 H % (Manual) Lymphocytes % Lymphocytes % 11 L (Manual) Reactive 1 H Lymphocytes % (Manual) Monocytes % Eosinophils % Basophils % Metamyelocytes % 3 H (manual) Nucleated Red 1 H Blood Cells % Immature 0.030 Granulocytes # Neutrophils # Neutrophils # 2.4 (Manual) Band Neutrophils 0.2 # Lymphocytes 0.3 L (Manual) Lymphocytes # Reactive 0.0 Lymphocytes # Monocytes # Eosinophils # Basophils # Metamyelocytes # 0.0 Nucleated Red Blood Cells # Platelet SIG DECREASED Estimate Giant Platelets 2 H Polychromasia 3+ Poikilocytosis 3+ Anisocytosis 3+ Microcytosis 2+ Macrocytosis 2+ Acanthocytes 2+ Test 01/04/19 01:06 01/04/19 04:27 01/04/19 05:00 01/04/19 05:20 Bedside Glucose 79 81 White Blood 2.2 #L Count Red Blood Count 2.27 L Hemoglobin 6.8 *L Hematocrit 18.9 L Mean Corpuscular 83.3 Volume Mean Corpuscular 30.0 Hemoglobin Mean Corpuscular 36.0 Hemoglobin Anh nt Red Cell 14.2 Distribution Width Platelet Count 3 #*L Mean Platelet Volume Immature 0.500 H Granulocytes % Neutrophils % Segmented 62 Neutrophils % (Manual) Band Neutrophils 2 % (Manual) Lymphocytes % Lymphocytes % 29 (Manual) Reactive 1 H Lymphocytes % (Manual) Monocytes % Monocytes % 2 (Manual) Eosinophils % Eosinophils % 5 (Manual) Basophils % Nucleated Red 1 H Blood Cells % Immature 0.010 Granulocytes # Neutrophils # Neutrophils # 1.4 L (Manual) Band Neutrophils 0.0 # Lymphocytes 0.6 L (Manual) Lymphocytes # Reactive 0.0 Lymphocytes # Monocytes # Monocytes # 0.0 L (Manual) Eosinophils # Basophils # Nucleated Red Blood Cells # Platelet SIG DECREASED Estimate Giant Platelets 4 H Anisocytosis 1+ Macrocytosis 1+ Sodium Level 135 Potassium Level 3.6 Chloride Level 101 Carbon Dioxide 26 Level Anion Gap 8 Blood Urea 54 #H Nitrogen Creatinine 0.58 Est Glomerular > 60 Filtrat Rate mL/min Glucose Level 76 Calcium Level 7.5 L Phosphorus Level 2.9 Magnesium Level 1.8 Lab Scanned BLOOD TRANSFUSI Report ON Test 01/04/19 08:12 01/04/19 08:40 01/04/19 09:12 01/04/19 12:17 Bedside Glucose 58 L 146 118 50 L Test 01/04/19 13:11 01/04/19 13:20 Bedside Glucose 107 109 Medications Medication Current Medications Glucose (Glutose) 15 gm Q15M PRN PO DECREASED GLUCOSE; Start 11/23/18 at 13:30 Glucose (Glutose) 22.5 gm Q15M PRN PO DECREASED GLUCOSE; Start 11/23/18 at 13:30 Dextrose (D50w Syringe) 25 ml Q15M PRN IV DECREASED GLUCOSE Last administered on 01/04/19 12:20; Admin Dose 25 ML; Start 11/23/18 at 13:30 Dextrose (D50w Syringe) 50 ml Q15M PRN IV DECREASED GLUCOSE Last administered on 01/03/19 18:00; Admin Dose 50 ML; Start 11/23/18 at 13:30 Glucagon (Glucagen) 1 mg Q15M PRN IM DECREASED GLUCOSE; Start 11/23/18 at 13:30 Glucose (Glutose) 15 gm Q15M PRN BUCCAL DECREASED GLUCOSE; Start 11/23/18 at 13:30 Albumin Human 100 ml @ 100 mls/hr DURING DIALYSIS PRN IV HYPOTENSION DURING HD Last administered on 01/03/19 21:52; Admin Dose 100 MLS/HR; Start 11/26/18 at 14:00 Collagenase (Santyl) 1 applic DAILY TOP Last administered on 01/03/19 15:58; Admin Dose 1 APPLIC; Start 12/01/18 at 16:30 Acetaminophen (Tylenol Liquid) 650 mg Q6H PRN NGT PAIN LEVEL 1-3 OR FEVER Last administered on 12/28/18 06:03; Admin Dose 650 MG; Start 12/06/18 at 09:00 Midodrine (Proamatine) 5 mg TID@,13,17 GTB Last administered on 01/01/19 14:00; Admin Dose 5 MG; Start 12/07/18 at 09:00 Epoetin Margarito-epbx (RETACRIT(esrd)) 10,000 unit MoWeFr@1700 SC Last administered on 01/01/19 16:54; Admin Dose 10,000 UNIT; Start 12/11/18 at 17:00 Lorazepam (Ativan) 1 mg Q4H PRN IV AGITATION/ANXIETY Last administered on 12/19/18 05:41; Admin Dose 1 MG; Start 12/15/18 at 11:00 Morphine Sulfate (morphine) 1 mg Q4H PRN IV SEVERE PAIN LEVEL 7-10 Last admi nistered on 01/04/19 08:23; Admin Dose 1 MG; Start 12/15/18 at 11:00 Metoclopramide HCl (Reglan) 5 mg Q8 IV Last administered on 01/04/19 13:59; Admin Dose 5 MG; Start 12/17/18 at 12:00 Diltiazem HCl 125 ml @ 5 mls/hr TITRATE IV ; Start 12/29/18 at 09:30 Levothyroxine Sodium (Synthroid) 75 mcg BEFORE BREAKFAST GTB Last administered on 01/04/19 06:19; Admin Dose 75 MCG; Start 12/30/18 at 07:00 Albuterol (Ventolin Hfa) 4 puff Q4H RESP THERAPY PRN INH WHEEZING; Start 12/30/18 at 08:00 Caspofungin 50 mg/ Sodium Chloride 250 ml @ 250 mls/hr Q24H IVPB Last administered on 01/04/19 13:13; Admin Dose 250 MLS/HR; Start 12/31/18 at 13:00 Phenylephrine HCl 250 ml @ 75 mls/hr TITRATE IV ; Start 12/30/18 at 17:00 Eye Lubricant (Akwa Oint) 1 applic Q6 BOTH EYES Last administered on 01/04/19 12:10; Admin Dose 1 APPLIC; Start 01/01/19 at 12:00 Eye Lubricant (Artificial Tears Oph) 2 drop Q6 BOTH EYES Last administered on 01/04/19 12:10; Admin Dose 2 DROP; Start 01/01/19 at 12:00 Norepinephrine 250 ml @ 1.875 mls/ hr TITRATE IV Last administered on 01/01/19 17:54; Admin Dose 3.75 MLS/HR; Start 01/01/19 at 11:30 Amiodarone HCl 100 ml @ 600 mls/hr DAILY IV Last administered on 01/02/19 08:03; Admin Dose 600 MLS/HR; Start 01/01/19 at 14:00 Diagnostic Test (Pha) (Accu-Chek) 1 ea Q4 XX Last administered on 01/03/19 05:49; Admin Dose 1 EA; Start 01/02/19 at 09:00 Insulin Aspart (Novolog Insulin Pen) NOVOLOG *MILD* ALGORI... Q4 SC ; Start 01/02/19 at 13:00 Meropenem/Sodium Chloride 50 ml @ 100 mls/hr Q12H IVPB Last administered on 01/04/19 12:08; Admin Dose 100 MLS/HR; Start 01/04/19 at 00:00 Clindamycin HCl/ Dextrose 50 ml @ 100 mls/hr Q8H IVPB Last administered on 01/04/19at 09:12; Admin Dose 100 MLS/HR; Start 01/04/19 at 01:00 Dextrose 1,000 ml @ 40 mls/hr Q24H IV Last administered on 01/04/19at 13:59; Admin Dose 40 MLS/HR; Start 01/04/19 at 13:30 JULIEN SALINAS January 04, 2019 15:55
[2019-01-04] MEDS: COLLAGENASE 5 GM (UD JAR) TOP SCH (16:43)
[2019-01-04] MEDS: BALSAM PERU/CASTOR OIL 60 GM TUBE TOP SCH ×2 (16:43→21:11)
[2019-01-04] MEDS: EPOETIN ALFA-EPBX (ESRD) 10,000 UNIT/ML VIAL SC SCH (18:06)
[2019-01-04] MEDS ORDERED: NORepinephrine 8MG/250 ML (PMX 250 ML IV SCH (22:30)
[2019-01-04] MEDS: PHENYLephrine 20MG IN 250 ML 250 ML IV SCH (22:32)
[2019-01-04] MEDS ORDERED: METOPROLOL 5 MG INJ IV ONE (23:30)
[2019-01-05] VITALS (99 sets, daily range): BP systolic 62–105; BP diastolic 41–81; PULSE 68–106; RESP 17–31
[2019-01-05] MEDS: ACCU-CHEK XX SCH ×6 (00:48→21:34)
[2019-01-05] MEDS: INSULIN ASPART [NOVOLOG] 3 ML PEN SC SCH ×6 (00:48→21:00)
[2019-01-05] MEDS: CLINDAMYCIN 600 MG/D5W (PMX) 50 ML IVPB SCH ×3 (00:49→17:21)
[2019-01-05] MEDS: PHENYLephrine 20MG IN 250 ML 250 ML IV SCH (03:25)
[2019-01-05] MEDS ORDERED: PHENYLephrine 80 MG in DEXTROSE 5% 242 ML IV PRN (03:30)
[2019-01-05] MEDS: ARTIFICIAL TEARS 15 ML OPH BOTH EYES SCH ×3 (06:04→17:24)
[2019-01-05] MEDS: METOCLOPRAMIDE 10 MG INJ IV SCH ×3 (06:04→21:34)
[2019-01-05] MEDS: OCULAR LUBRICANT 3.5 GM OPH OINT BOTH EYES SCH ×3 (06:04→17:24)
[2019-01-05] MEDS: LEVOTHYROXINE 75 MCG TAB GTB SCH (06:04)
[2019-01-05] MEDS ORDERED: MAGNESIUM SULFATE 2 GM/50 ML 50 ML IVPB ONE (08:00)
--- NOTE | 2019-01-05 08:13 | PN ---
DATE: 01/05/2019 SUBJECTIVE: The patient remains critically ill on pressor support. No other events noted. No hemop tysis, hematemesis or hematochezia. OBJECTIVE: VITAL SIGNS: Blood pressure is 78/63, respirations 26, pulse 106. HEENT: Head is normocephalic. NECK: Supple. HEART: Tachycardic. LUNGS: Show diminished breath sounds at the base. ABDOMEN: Soft, nontender to palpation without rebound or guarding. EXTREMITIES: Negative for clubbing, cyanosis. Positive edema, diffuse anasarca. DERMATOLOGIC: No rashes. MUSCULOSKELETAL: No joint effusion. NEUROLOGIC: No change in exam. MEDICATIONS: Reviewed. LABORATORY DATA: Reviewed. ASSESSMENT AND PLAN: 1. End-stage renal disease. Plan is to hold hemodialysis today as the patient is hemodynamically un stable. We will continue to monitor. 2. Anemia. Monitor hemoglobin and hematocrit levels. Continue Epogen. Transfuse PRBCs as tolerate d. 3. Volume overload, diffuse anasarca. We will ultrafiltrate hemodialysis if hemodynamically stable. 4. Mineral bone disorder. Monitor calcium and phosphorus levels. 5. Hypomagnesemia. Replete with magnesium sulfate. 6. Access. The patient's Perm-A-Cath is noted. Continue local access care. 7. Ventilator-dependent respiratory failure. Vent settings have been reviewed. 8. Septic shock. The patient is on antibiotics, pressor support. We will continue. 9. Thrombocytopenia. Continue to monitor. 10. Dysphagia. 11. Arrhythmia. Continue amiodarone. 12. Lower extremity wounds. Continue wound care. 13. Status post cardiopulmonary arrest. Dictated By: SARIKA JOINER DO NR/NTS Conf#: [id number] DID#: [id number] CC: LORRAINE JOHNSON MD; MANDY BATES MD; RENÉE SKINNER;*EndCC*
[2019-01-05] MEDS: AMIODARONE 150MG/D5W BOLUS 100 ML IV SCH ×2 (08:49→10:58)
[2019-01-05] MEDS: MIDODRINE 5 MG TAB GTB SCH ×3 (08:50→17:00)
[2019-01-05] MEDS: BALSAM PERU/CASTOR OIL 60 GM TUBE TOP SCH ×2 (09:04→21:33)
[2019-01-05] MEDS: COLLAGENASE 5 GM (UD JAR) TOP SCH (09:05)
--- NOTE | 2019-01-05 09:26 | CONS ---
Assessment/Plan Assessment/Plan Assessment/Plan (Daily) Ventilator setting; AC of 18, tidal volume 400, PEEP of 5, 40% FiO2. Assessment and recommendations; 1. Patient admitted for bilateral pneumonia status post tracheostomy because of failure to be extubated. 2. Anemia and very severe thrombocytopenia. With extensive ecchymosis. 3. History of cardiac arrhythmia, status post pacemaker placement in the past. 4. G-tube malfunction. 5. Klebsiella and VRE enterococcus isolated from sacral wound. Currently on appropriate antimicrobial regimen. 6. Severely emaciated state. Continue on supportive care. Prognosis is very poor. Consider transfer to telemetry unit. Consultation Date/Type/Reason Admit Date/Time Nov 21, 2018 at 04:53 Initial Consult Date Type of Consult Pulmonary Requesting Provider: RENÉE SKINNER Date/Time of Note DATE: 01/05/19 TIME: 09:23 24 HR Interval Summary Free Text/Dictation Patient's condition is critical but stable. Has remained hemodynamically stable. General exam; middle-aged woman, totally emaciated, awake, appropriately responsive. Currently no distress. On ventilator via tracheostomy. Exam/Review of Systems Exam Vitals Vital Signs Date Temp Pulse Resp B/P (MAP) Pulse Ox O2 O2 Flow FiO2 Time Delivery Rate 01/05/19 103 08:00 01/05/19 26 78/63 (68) 100 06:15 01/05/19 Mechanical 06:00 Ventilator 01/05/19 40 04:39 01/05/19 98.1 04:00 Intake and Output 01/04/19 01/04/19 01/05/19 1515:00 23:00 07:00 IntakeIntake Total 1035.000 ml 419.000 ml 785.00 ml BalanceBalance 1035.000 ml 419.000 ml 785.00 ml Exam H ENT exam; supple neck, no JVD. No lymphadenopathy. Midline trachea. No thy romegaly. Tracheostomy in place. Patient has fair dentition. Chest exam; diminished but clear breath sounds. S1-S2 audible, no murmurs. Pacemaker in left chest wall. Abdomen exam; soft, scaphoid. No organomegaly. G-tube in place. Bowel sounds are sluggish. Extremity exam; trace edema. Skin examination; patient has extensive ecchymosis involving the entire body. PHYSICAL THERAPY NURSE exam; patient awake and follows simple commands. Exhibiting profound generalized weakness. Results Result Diagram: 01/05/19 0430 01/05/19 0430 Results 24hrs Laboratory Tests Test 01/04/19 12:17 01/04/19 13:11 01/04/19 13:20 01/04/19 18:09 Bedside Glucose 50 L 107 109 64 L Test 01/04/19 18:31 01/04/19 18:43 01/04/19 21:06 01/04/19 21:43 Bedside Glucose 172 150 56 L 87 Test 01/05/19 00:41 01/05/19 04:10 01/05/19 04:30 01/05/19 04:46 Bedside Glucose 96 106 White Blood 5.3 # Count Red Blood Count 2.98 #L Hemoglobin 9.1 #L Hematocrit 25.1 #L Mean Corpuscular 84.2 Volume Mean Corpuscular 30.5 Hemoglobin Mean Corpuscular 36.3 Hemoglobin Anh nt Red Cell 13.4 Distribution Width Platelet Count 4 #*L Mean Platelet Volume Immature 1.300 H Granulocytes % Neutrophils % Segmented 72 Neutrophils % (Manual) Band Neutrophils 17 H % (Manual) Lymphocytes % Lymphocytes % 9 L (Manual) Monocytes % Monocytes % 2 (Manual) Eosinophils % Basophils % Nucleated Red 0.0 Blood Cells % Immature 0.070 H Granulocytes # Neutrophils # Neutrophils # 3.9 (Manual) Band Neutrophils 0.9 H # Lymphocytes 0.4 L (Manual) Lymphocytes # Monocytes # Monocytes # 0.1 L (Manual) Eosinophils # Basophils # Nucleated Red Blood Cells # Platelet SIG DECREASED Estimate Poikilocytosis 3+ Anisocytosis 1+ Macrocytosis 1+ Sodium Level 131 L Potassium Level 3.8 Chloride Level 99 Carbon Dioxide 23 Level Anion Gap 9 Blood Urea 64 H Nitrogen Creatinine 0.68 Est Glomerular > 60 Filtrat Rate mL/min Glucose Level 94 Calcium Level 6.9 L Phosphorus Level 3.5 Magnesium Level 1.6 L Total Bilirubin 3.3 H Direct Bilirubin 1.50 H Indirect 1.8 H Bilirubin Aspartate Amino 23 Transf (AST/SGOT ) Alanine 29 Aminotransferase (ALT/SGPT) Alkaline 120 Phosphatase Total Protein 4.6 L Albumin 1.9 L Globulin 2.70 Albumin/Globulin 0.70 Ratio Lab Scanned BLOOD TRANSFUSI Report ON Test 01/05/19 09:02 Bedside Glucose 72 Medications Medication Current Medications Glucose (Glutose) 15 gm Q15M PRN PO DECREASED GLUCOSE; Start 11/23/18 at 13:30 Glucose (Glutose) 22.5 gm Q15M PRN PO DECREASED GLUCOSE; Start 11/23/18 at 13:30 Dextrose (D50w Syringe) 25 ml Q15M PRN IV DECREASED GLUCOSE Last administered on 01/04/19 21:09; Admin Dose 25 ML; Start 11/23/18 at 13:30 Dextrose (D50w Syringe) 50 ml Q15M PRN IV DECREASED GLUCOSE Last administered on 01/03/19 18:00; Admin Dose 50 ML; Start 11/23/18 at 13:30 Glucagon (Glucagen) 1 mg Q15M PRN IM DECREASED GLUCOSE; Start 11/23/18 at 13:30 Glucose (Glutose) 15 gm Q15M PRN BUCCAL DECREASED GLUCOSE; Start 11/23/18 at 13:30 Albumin Human 100 ml @ 100 mls/hr DURING DIALYSIS PRN IV HYPOTENSION DURING HD Last administered on 01/03/19 21:52; Admin Dose 100 MLS/HR; Start 11/26/18 at 14:00 Collagenase (Santyl) 1 applic DAILY TOP Last administered on 01/05/19 09:05; Admin Dose 1 APPLIC; Start 12/01/18 at 16:30 Acetaminophen (Tylenol Liquid) 650 mg Q6H PRN NGT PAIN LEVEL 1-3 OR FEVER Last administered on 12/28/18 06:03; Admin Dose 650 MG; Start 12/06/18 at 09:00 Midodrine (Proamatine) 5 mg TID@,13,17 GTB Last administered on 01/01/19 14:00; Admin Dose 5 MG; Start 12/07/18 at 09:00 Epoetin Margarito-epbx (RETACRIT(esrd)) 10,000 unit MoWeFr@1700 SC Last administered on 01/04/19 18:06; Admin Dose 10,000 UNIT; Start 12/11/18 at 17:00 Lorazepam (Ativan) 1 mg Q4H PRN IV AGITATION/ANXIETY Last administered on 12/19/18 05:41; Admin Dose 1 MG; Start 12/15/18 at 11:00 Morphine Sulfate (morphine) 1 mg Q4H PRN IV SEVERE PAIN LEVEL 7-10 Last administered on 01/04/19 08:23; Admin Dose 1 MG; Start 12/15/18 at 11:00 Metoclopramide HCl (Reglan) 5 mg Q8 IV Last administered on 01/05/19 06:04; Admin Dose 5 MG; Start 12/17/18 at 12:00 Diltiazem HCl 125 ml @ 5 mls/hr TITRATE IV ; Start 12/29/18 at 09:30 Levothyroxine Sodium (Synthroid) 75 mcg BEFORE BREAKFAST GTB Last administered on 01/05/19 06:04; Admin Dose 75 MCG; Start 12/30/18 at 07:00 Albuterol (Ventolin Hfa) 4 puff Q4H RESP THERAPY PRN INH WHEEZING; Start 12/30/18 at 08:00 Caspofungin 50 mg/ Sodium Chloride 250 ml @ 250 mls/hr Q24H IVPB Last administered on 01/04/19 13:13; Admin Dose 250 MLS/HR; Start 12/31/18 at 13:00 Eye Lubricant (Akwa Oint) 1 applic Q6 BOTH EYES Last administered on 01/05/19 06:04; Admin Dose 1 APPLIC; Start 01/01/19 at 12:00 Eye Lubricant (Artificial Tears Oph) 2 drop Q6 BOTH EYES Last administered on 01/05/19 06:04; Admin Dose 2 DROP; Start 01/01/19 at 12:00 Norepinephrine 250 ml @ 1.875 mls/ hr TITRATE IV Last administered on 01/01/19 17:54; Admin Dose 3.75 MLS/HR; Start 01/01/19 at 11:30 Amiodarone HCl 100 ml @ 600 mls/hr DAILY IV Last administered on 01/02/19 08:03; Admin Dose 600 MLS/HR; Start 01/01/19 at 14:00 Diagnostic Test (Pha) (Accu-Chek) 1 ea Q4 XX Last administered on 01/03/19 05:49; Admin Dose 1 EA; Start 01/02/19 at 09:00 Insulin Aspart (Novolog Insulin Pen) NOVOLOG *MILD* ALGORI... Q4 SC ; Start 01/02/19 at 13:00 Meropenem/Sodium Chloride 50 ml @ 100 mls/hr Q12H IVPB Last administered on 5/27/19at 23:25; Admin Dose 100 MLS/HR; Start 01/04/19 at 00:00 Clindamycin HCl/ Dextrose 50 ml @ 100 mls/hr Q8H IVPB Last administered on 01/05/19at 00:49; Admin Dose 100 MLS/HR; Start 01/04/19 at 01:00 Dextrose 1,000 ml @ 40 mls/hr Q24H IV Last administered on 01/04/19at 21:10; Admin Dose 40 MLS/HR; Start 01/04/19 at 13:30 Phenylephrine HCl 80 mg/Dextrose 250 ml @ 18.75 mls/ hr TITRATE PRN IV BLOOD PRESSURE SUPPORT Last administered on 01/05/19at 07:04; Admin Dose 18.75 MLS/HR; Start 01/05/19 at 03:30 Magnesium Sulfate 50 ml @ 25 mls/hr ONCE ONCE IVPB Last administered on 01/05/19at 09:03; Admin Dose 25 MLS/HR; Start 01/05/19 at 08:00; Stop 01/05/19 at 09:59 MARIAN KUMAR January 05, 2019 09:26
--- NOTE | 2019-01-05 09:36 | PN ---
Date/Time of Note Date/Time of Note DATE: 01/05/19 TIME: 09:07 Assessment/Plan VTE Prophylaxis Risk score (from Nsg)>0 risk: 9 SCD applied (from Ns): No SCD contraindicated: other (LE wounds) Pharmacological prophylaxis: NA/contraindicated Pharm contraindication: thrombocytopenia Lines/Catheters IV [facility]ter [facility]from [facility] Mid Line Urinary Cath still in place: No Assessment/Plan Assessment/Plan A/P: 58 yo very cachectic woman with ESRD, questionable cirrhosis, DMII presents with hypoglycemia, leg infection. Suffered cardiac and respiratory arrest, recovered with good neurologic status however was unable to be weaned from mechanical ventilation and is now s/p trach and PEG. #Severe protein-calorie malnutrition - has a picture of the patient from February 2018 when she was functional and well. She is very thin appearing at that time, but has more weight than currently. He reports she never had a problem with appetite or nausea until dialysis fistula surgery on left leg Sep 2018. - Since then, she's been eating small frequent meals, had occasional nausea. - Weight on admission 53 kg; today documented as 43 kg. - Now has G tube, but tube feeds not passing through and leaking around. - Possible mesenteric ischemia? Or other cause of ileus? - GI following. Will try restarting tube feeds again today. - High risk of candidemia from TPN. Will try to avoid this if possible. # Chronic respiratory failure: Treated for pneumonia earlier this admission as well as respiratory failure, status post trach placement earlier this admission as well. -Continue MV per pulm via trach, follow pulmonary recommendations, current antifungal and antibacterial medications -Continue to wean steroids off -For hypotension, continue pressor support and wean off as tolerated if possible # Left lower extremity wound: Per ID team there is also concern of a possible infected graft. Blood cultures from last month as well as wound culture from last month positive for Klebsiella, patient presently on clindamycin and meropenem now, as well as fluconazole. -Continue antibiotics indefinitely per ID # ESRD -For now continue HD per nephrology # Hypothyroidism: - Continue Synthroid # Anemia of CKD: Also thrombocytopenia, prior diagnosis of this secondary to HIT. 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 Per heme-onc this is likely a consumptive process occurring but resolution of her other problems would be the solution. Also lupus anticoagulant has been ordered. -Monitor CBC for now, follow-up further hematology oncology recommendations -Follow-up further labs ordered per hematology oncology team, status post IVIG administration 3 days ago as well -Per their note yesterday they may consider another administration of this today # Prophylaxis: SCDs Dispo: Again still in intensive care unit. As mentioned above bioethics meeting held 6 days ago, family was present during the meeting as well. Family agreed to chemical code only after bioethics meeting. Family is aware patient has very poor prognosis at this point in time. Critical care time spent on patient care today equals 45 minutes. Result Diagram: 01/05/19 0430 01/05/19 043 Subjective 24 Hr Interval Summary Free Text/Dictation Dialysis held today due to hypotension. Still on pressor support. Tube feeds leaking around G tube, feeds held. Last bowel movement 01/01. Patient is awake, following commands. Spoke at length to Milo at bedside about the plan. Exam/Review of Systems Exam Vitals Vital Signs Date Temp Pulse Resp B/P (MAP) Pulse Ox O2 O2 Flow FiO2 Time Delivery Rate 01/05/19 103 08:00 01/05/19 26 78/63 (68) 100 06:15 01/05/19 Mechanical 06:00 Ventilator 01/05/19 40 04:39 01/05/19 98.1 04:00 Intake and Output 01/04/19 01/04/19 01/05/19 1515:00 23:00 07:00 IntakeIntake Total 1035.000 ml 419.000 ml 785.00 ml BalanceBalance 1035.000 ml 419.000 ml 785.00 ml Exam Gen: Very cachectic woman lying in bed, trached on vent. Awake, following commands. Eyes: Dry. No icterus. Open spontaneously, tracking. HEENT: Moist mucous membranes. Small white spots on buccal mucosa may be early candidiasis. Neck: Trach in place with thin secretions. Chest: Pacemaker pocket unremarkable. Card: Regular rate and rhythm, cannot appreciate murmurs. Pulm: On vent. mechanical breath sounds bilaterally Abd: G tube in place, clamped, site surrounded by ostomy bag but no leaking currently. Otherwise abdomen soft, scaphoid. Notable periumbilical mass. No bowel sounds. Ext: 3+ pitting edema throughout arms and legs. LLE femoral line. Skin: Several ecchymoses. Very fragile skin, arms and legs wrapped due to weeping wounds. : Dry rectal tube. Results Results 24hrs Laboratory Tests Test 01/04/19 09:12 01/04/19 12:17 01/04/19 13:11 01/04/19 13:20 Bedside Glucose 118 50 L 107 109 Test 01/04/19 18:09 01/04/19 18:31 01/04/19 18:43 01/04/19 21:06 Bedside Glucose 64 L 172 150 56 L Test 01/04/19 21:43 01/05/19 00:41 01/05/19 04:10 01/05/19 04:30 Bedside Glucose 87 96 106 White Blood 5.3 # Count Red Blood Count 2.98 #L Hemoglobin 9.1 #L Hematocrit 25.1 #L Mean Corpuscular 84.2 Volume Mean Corpuscular 30.5 Hemoglobin Mean Corpuscular 36.3 Hemoglobin Anh nt Red Cell 13.4 Distribution Width Platelet Count 4 #*L Mean Platelet Volume Immature 1.300 H Granulocytes % Neutrophils % Segmented 72 Neutrophils % (Manual) Band Neutrophils 17 H % (Manual) Lymphocytes % Lymphocytes % 9 L (Manual) Monocytes % Monocytes % 2 (Manual) Eosinophils % Basophils % Nucleated Red 0.0 Blood Cells % Immature 0.070 H Granulocytes # Neutrophils # Neutrophils # 3.9 (Manual) Band Neutrophils 0.9 H # Lymphocytes 0.4 L (Manual) Lymphocytes # Monocytes # Monocytes # 0.1 L (Manual) Eosinophils # Basophils # Nucleated Red Blood Cells # Platelet SIG DECREASED Estimate Poikilocytosis 3+ Anisocytosis 1+ Macrocytosis 1+ Sodium Level 131 L Potassium Level 3.8 Chloride Level 99 Carbon Dioxide 23 Level Anion Gap 9 Blood Urea 64 H Nitrogen Creatinine 0.68 Est Glomerular > 60 Filtrat Rate mL/min Glucose Level 94 Calcium Level 6.9 L Phosphorus Level 3.5 Magnesium Level 1.6 L Total Bilirubin 3.3 H Direct Bilirubin 1.50 H Indirect 1.8 H Bilirubin Aspartate Amino 23 Transf (AST/SGOT ) Alanine 29 Aminotransferase (ALT/SGPT) Alkaline 120 Phosphatase Total Protein 4.6 L Albumin 1.9 L Globulin 2.70 Albumin/Globulin 0.70 Ratio Test 01/05/19 04:46 Lab Scanned BLOOD TRANSFUSI Report ON Medications Medication Current Medications Glucose (Glutose) 15 gm Q15M PRN PO DECREASED GLUCOSE; Start 11/23/18 at 13:30 Glucose (Glutose) 22.5 gm Q15M PRN PO DECREASED GLUCOSE; Start 11/23/18 at 13:30 Dextrose (D50w Syringe) 25 ml Q15M PRN IV DECREASED GLUCOSE Last administered on 01/04/19 21:09; Admin Dose 25 ML; Start 11/23/18 at 13:30 Dextrose (D50w Syringe) 50 ml Q15M PRN IV DECREASED GLUCOSE Last administered on 01/03/19 18:00; Admin Dose 50 ML; Start 11/23/18 at 13:30 Glucagon (Glucagen) 1 mg Q15M PRN IM DECREASED GLUCOSE; Start 11/23/18 at 13:30 Glucose (Glutose) 15 gm Q15M PRN BUCCAL DECREASED GLUCOSE; Start 11/23/18 at 13:30 Albumin Human 100 ml @ 100 mls/hr DURING DIALYSIS PRN IV HYPOTENSION DURING HD Last administered on 01/03/19at 21:52; Admin Dose 100 MLS/HR; Start 11/26/18 at 14:00 Collagenase (Santyl) 1 applic DAILY TOP Last administered on 01/05/19 09:05; Admin Dose 1 APPLIC; Start 12/01/18 at 16:30 Acetaminophen (Tylenol Liquid) 650 mg Q6H PRN NGT PAIN LEVEL 1-3 OR FEVER Last administered on 12/28/18 06:03; Admin Dose 650 MG; Start 12/06/18 at 09:00 Midodrine (Proamatine) 5 mg TID@,13,17 GTB Last administered on 01/01/19 14:00; Admin Dose 5 MG; Start 12/07/18 at 09:00 Epoetin Margarito-epbx (RETACRIT(esrd)) 10,000 unit MoWeFr@1700 SC Last administered on 01/04/19 18:06; Admin Dose 10,000 UNIT; Start 12/11/18 at 17:00 Lorazepam (Ativan) 1 mg Q4H PRN IV AGITATION/ANXIETY Last administered on 12/19/18 05:41; Admin Dose 1 MG; Start 12/15/18 at 11:00 Morphine Sulfate (morphine) 1 mg Q4H PRN IV SEVERE PAIN LEVEL 7-10 Last administered on 01/04/19 08:23; Admin Dose 1 MG; Start 12/15/18 at 11:00 Metoclopramide HCl (Reglan) 5 mg Q8 IV Last administered on 01/05/19 06:04; Admin Dose 5 MG; Start 12/17/18 at 12:00 Diltiazem HCl 125 ml @ 5 mls/hr TITRATE IV ; Start 12/29/18 at 09:30 Levothyroxine Sodium (Synthroid) 75 mcg BEFORE BREAKFAST GTB Last administered on 01/05/19 06:04; Admin Dose 75 MCG; Start 12/30/18 at 07:00 Albuterol (Ventolin Hfa) 4 puff Q4H RESP THERAPY PRN INH WHEEZING; Start 12/30/18 at 08:00 Caspofungin 50 mg/ Sodium Chloride 250 ml @ 250 mls/hr Q24H IVPB Last administered on 01/04/19 13:13; Admin Dose 250 MLS/HR; Start 12/31/18 at 13:00 Eye Lubricant (Akwa Oint) 1 applic Q6 BOTH EYES Last administered on 01/05/19 06:04; Admin Dose 1 APPLIC; Start 01/01/19 at 12:00 Eye Lubricant (Artificial Tears Oph) 2 drop Q6 BOTH EYES Last administered on 01/05/19 06:04; Admin Dose 2 DROP; Start 01/01/19 at 12:00 Norepinephrine 250 ml @ 1.875 mls/ hr TITRATE IV Last administered on 01/01/19 17:54; Admin Dose 3.75 MLS/HR; Start 01/01/19 at 11:30 Amiodarone HCl 100 ml @ 600 mls/hr DAILY IV Last administered on 01/02/19 08:03; Admin Dose 600 MLS/HR; Start 01/01/19 at 14:00 Diagnostic Test (Pha) (Accu-Chek) 1 ea Q4 XX Last administered on 01/03/19 05:49; Admin Dose 1 EA; Start 01/02/19 at 09:00 Insulin Aspart (Novolog Insulin Pen) NOVOLOG *MILD* ALGORI... Q4 SC ; Start 01/02/19 at 13:00 Meropenem/Sodium Chloride 50 ml @ 100 mls/hr Q12H IVPB Last administered on 01/04/19at 23:25; Admin Dose 100 MLS/HR; Start 01/04/19 at 00:00 Clindamycin HCl/ Dextrose 50 ml @ 100 mls/hr Q8H IVPB Last administered on 01/05/19at 00:49; Admin Dose 100 MLS/HR; Start 01/04/19 at 01:00 Dextrose 1,000 ml @ 40 mls/hr Q24H IV Last administered on 01/04/19at 21:10; Admin Dose 40 MLS/HR; Start 01/04/19 at 13:30 Phenylephrine HCl 80 mg/Dextrose 250 ml @ 18.75 mls/ hr TITRATE PRN IV BLOOD PRESSURE SUPPORT Last administered on 01/05/19at 07:04; Admin Dose 18.75 MLS/HR; Start 01/05/19 at 03:30 Magnesium Sulfate 50 ml @ 25 mls/hr ONCE ONCE IVPB Last administered on 01/05/19at 09:03; Admin Dose 25 MLS/HR; Start 01/05/19 at 08:00; Stop 01/05/19 at 09:59 SARAH ORTIZ MD January 05, 2019 09:17
--- NOTE | 2019-01-05 09:52 | CONS ---
Assessment/Plan Assessment/Plan Assessment/Plan (Daily) Respiratory failure Status post tracheostomy Severe malnutrition Altered mental status Cardiac arrhythmias Chemical code only Suggest no escalation in care patient is already on pressors would not add any further pressors would only prolong patients suffering. Consultation Date/Type/Reason Admit Date/Time Nov 21, 2018 at 04:53 Initial Consult Date Requesting Provider: RENÉE SKINNER Date/Time of Note DATE: 01/05/19 TIME: 09:50 Exam/Review of Systems Exam Vitals Vital Signs Date Temp Pulse Resp B/P (MAP) Pulse Ox O2 O2 Flow FiO2 Time Delivery Rate 01/05/19 103 08:00 01/05/19 26 78/63 (68) 100 06:15 01/05/19 Mechanical 06:00 Ventilator 01/05/19 40 04:39 01/05/19 98.1 04:00 Intake and Output 01/04/19 01/04/19 01/05/19 1515:00 23:00 07:00 IntakeIntake Total 1035.000 ml 419.000 ml 785.00 ml BalanceBalance 1035.000 ml 419.000 ml 785.00 ml Constitutional: distress, frail, other (Severely emaciated) Respiratory: congested cough, crackles/rales Cardiovascular: regular rate and rhythm, nl pulses Results Result Diagram: 01/05/19 0430 01/05/19 0430 Results 24hrs Laboratory Tests Test 01/04/19 12:17 01/04/19 13:11 01/04/19 13:20 01/04/19 18:09 Bedside Glucose 50 L 107 109 64 L Test 01/04/19 18:31 01/04/19 18:43 01/04/19 21:06 01/04/19 21:43 Bedside Glucose 172 150 56 L 87 Test 01/05/19 00:41 01/05/19 04:10 01/05/19 04:30 01/05/19 04:46 Bedside Glucose 96 106 White Blood 5.3 # Count Red Blood Count 2.98 #L Hemoglobin 9.1 #L Hematocrit 25.1 #L Mean Corpuscular 84.2 Volume Mean Corpuscular 30.5 Hemoglobin Mean Corpuscular 36.3 Hemoglobin Anh nt Red Cell 13.4 Distribution Width Platelet Count 4 #*L Mean Platelet Volume Immature 1.300 H Granulocytes % Neutrophils % Segmented 72 Neutrophils % (Manual) Band Neutrophils 17 H % (Manual) Lymphocytes % Lymphocytes % 9 L (Manual) Monocytes % Monocytes % 2 (Manual) Eosinophils % Basophils % Nucleated Red 0.0 Blood Cells % Immature 0.070 H Granulocytes # Neutrophils # Neutrophils # 3.9 (Manual) Band Neutrophils 0.9 H # Lymphocytes 0.4 L (Manual) Lymphocytes # Monocytes # Monocytes # 0.1 L (Manual) Eosinophils # Basophils # Nucleated Red Blood Cells # Platelet SIG DECREASED Estimate Poikilocytosis 3+ Anisocytosis 1+ Macrocytosis 1+ Sodium Level 131 L Potassium Level 3.8 Chloride Level 99 Carbon Dioxide 23 Level Anion Gap 9 Blood Urea 64 H Nitrogen Creatinine 0.68 Est Glomerular > 60 Filtrat Rate mL/min Glucose Level 94 Calcium Level 6.9 L Phosphorus Level 3.5 Magnesium Level 1.6 L Total Bilirubin 3.3 H Direct Bilirubin 1.50 H Indirect 1.8 H Bilirubin Aspartate Amino 23 Transf (AST/SGOT ) Alanine 29 Aminotransferase (ALT/SGPT) Alkaline 120 Phosphatase Total Protein 4.6 L Albumin 1.9 L Globulin 2.70 Albumin/Globulin 0.70 Ratio Lab Scanned BLOOD TRANSFUSI Report ON Test 01/05/19 09:02 Bedside Glucose 72 Medications Medication Current Medications Glucose (Glutose) 15 gm Q15M PRN PO DECREASED GLUCOSE; Start 11/23/18 at 13:30 Glucose (Glutose) 22.5 gm Q15M PRN PO DECREASED GLUCOSE; Start 11/23/18 at 13:30 Dextrose (D50w Syringe) 25 ml Q15M PRN IV DECREASED GLUCOSE Last administered on 01/04/19at 21:09; Admin Dose 25 ML; Start 11/23/18 at 13:30 Dextrose (D50w Syringe) 50 ml Q15M PRN IV DECREASED GLUCOSE Last administered on 01/03/19at 18:00; Admin Dose 50 ML; Start 11/23/18 at 13:30 Glucagon (Glucagen) 1 mg Q15M PRN IM DECREASED GLUCOSE; Start 11/23/18 at 13:30 Glucose (Glutose) 15 gm Q15M PRN BUCCAL DECREASED GLUCOSE; Start 11/23/18 at 13:30 Albumin Human 100 ml @ 100 mls/hr DURING DIALYSIS PRN IV HYPOTENSION DURING HD Last administered on 01/03/19at 21:52; Admin Dose 100 MLS/HR; Start 11/26/18 at 14:00 Collagenase (Santyl) 1 applic DAILY TOP Last administered on 01/05/19 09:05; Admin Dose 1 APPLIC; Start 12/01/18 at 16:30 Acetaminophen (Tylenol Liquid) 650 mg Q6H PRN NGT PAIN LEVEL 1-3 OR FEVER Last administered on 12/28/18 06:03; Admin Dose 650 MG; Start 12/06/18 at 09:00 Midodrine (Proamatine) 5 mg TID@,13,17 GTB Last administered on 01/01/19 14:00; Admin Dose 5 MG; Start 12/07/18 at 09:00 Epoetin Margarito-epbx (RETACRIT(esrd)) 10,000 unit MoWeFr@1700 SC Last administered on 01/04/19 18:06; Admin Dose 10,000 UNIT; Start 12/11/18 at 17:00 Lorazepam (Ativan) 1 mg Q4H PRN IV AGITATION/ANXIETY Last administered on 12/19/18 05:41; Admin Dose 1 MG; Start 12/15/18 at 11:00 Morphine Sulfate (morphine) 1 mg Q4H PRN IV SEVERE PAIN LEVEL 7-10 Last administered on 01/04/19 08:23; Admin Dose 1 MG; Start 12/15/18 at 11:00 Metoclopramide HCl (Reglan) 5 mg Q8 IV Last administered on 01/05/19 06:04; Admin Dose 5 MG; Start 12/17/18 at 12:00 Diltiazem HCl 125 ml @ 5 mls/hr TITRATE IV ; Start 12/29/18 at 09:30 Levothyroxine Sodium (Synthroid) 75 mcg BEFORE BREAKFAST GTB Last administered on 01/05/19 06:04; Admin Dose 75 MCG; Start 12/30/18 at 07:00 Albuterol (Ventolin Hfa) 4 puff Q4H RESP THERAPY PRN INH WHEEZING; Start 12/30/18 at 08:00 Caspofungin 50 mg/ Sodium Chloride 250 ml @ 250 mls/hr Q24H IVPB Last administered on 01/04/19 13:13; Admin Dose 250 MLS/HR; Start 12/31/18 at 13:00 Eye Lubricant (Akwa Oint) 1 applic Q6 BOTH EYES Last administered on 01/05/19 06:04; Admin Dose 1 APPLIC; Start 01/01/19 at 12:00 Eye Lubricant (Artificial Tears Oph) 2 drop Q6 BOTH EYES Last administered on 01/05/19 06:04; Admin Dose 2 DROP; Start 01/01/19 at 12:00 Norepinephrine 250 ml @ 1.875 mls/ hr TITRATE IV Last administered on 01/01/19 17:54; Admin Dose 3.75 MLS/HR; Start 01/01/19 at 11:30 Amiodarone HCl 100 ml @ 600 mls/hr DAILY IV Last administered on 01/02/19 08:03; Admin Dose 600 MLS/HR; Start 01/01/19 at 14:00 Diagnostic Test (Pha) (Accu-Chek) 1 ea Q4 XX Last administered on 01/03/19 05 :49; Admin Dose 1 EA; Start 01/02/19 at 09:00 Insulin Aspart (Novolog Insulin Pen) NOVOLOG *MILD* ALGORI... Q4 SC ; Start 01/02/19 at 13:00 Meropenem/Sodium Chloride 50 ml @ 100 mls/hr Q12H IVPB Last administered on 01/04/19 23:25; Admin Dose 100 MLS/HR; Start 01/04/19 at 00:00 Clindamycin HCl/ Dextrose 50 ml @ 100 mls/hr Q8H IVPB Last administered on 01/05/19 00:49; Admin Dose 100 MLS/HR; Start 01/04/19 at 01:00 Dextrose 1,000 ml @ 40 mls/hr Q24H IV Last administered on 01/04/19at 21:10; Admin Dose 40 MLS/HR; Start 01/04/19 at 13:30 Phenylephrine HCl 80 mg/Dextrose 250 ml @ 18.75 mls/ hr TITRATE PRN IV BLOOD PRESSURE SUPPORT Last administered on 01/05/19 07:04; Admin Dose 18.75 MLS/HR; Start 01/05/19 at 03:30 Magnesium Sulfate 50 ml @ 25 mls/hr ONCE ONCE IVPB Last administered on 01/05/19 09:03; Admin Dose 25 MLS/HR; Start 01/05/19 at 08:00; Stop 01/05/19 at 09:59 JULIEN SALINAS January 05, 2019 09:52
[2019-01-05] MEDS: DEXTROSE 50% 50 ML SYRINGE IV PRN (10:29)
--- NOTE | 2019-01-05 11:47 | CONS ---
Assessment/Plan Assessment/Plan Hospital Course (Demo Recall) Patient is lying comfortably in bed family at bedside, she is hypothermic and has a warm blanket on. WBC 5.3 H&H 9.1 and 25.1 platelets 4 BUN 64 creatinine 0.68 Antimicrobials: Cancidas, clindamycin, meropenem Microbiology: Blood culture on admission grew Klebsiella ESBL, repeat blood cult ures negative, left thigh wound culture grew Klebsiella ESBL and Leah albicans Allergy: Zosyn, vancomycin Indwelling: Right upper thigh Davie catheter, left femoral triple-lumen catheter, trach Physical examination: This is a chronically ill-appearing cachectic middle-aged woman who is laying comfortably in bed. Head atraumatic normocephalic. Neck is supple. Chest rise symmetrical. Breath sounds diminished bases. Heart: S1-S2, irreg. Abdomen distended. Bowel sounds hypoactive. Extremities with bilateral edema, cyanotic, multiple ecchymotic areas and bruises, left upper thigh dressing present Assessment: 1. Septic shock 2. Healthcare associated pneumonia 3. Respiratory failure, acute on chronic, status post tracheostomy on this admission 4. Peripheral arterial disease status post left lower extremity bypass graft that became infected with wound culture grew Klebsiella ESBL 5. End-stage renal disease, hemodialysis dependent 6. Dysphagia 7. Coronary artery disease status post atrial fibrillation, status post permanent pacemaker 8. Failure to thrive with severe cachexia 9 . Unstageable sacral decubitus 10. History of peritoneal dialysis with peritoneal dialysis still in place 11. Thrombocytopenia 12. Atrial fibrillation 13. G-tube site drainage with colonized bacteria Plan: Remains unchanged, continue present care, antibiotics vent support per pulmonary, blood products as needed Consultation Date/Type/Reason Admit Date/Time Nov 21, 2018 at 04:53 Initial Consult Date Type of Consult id Requesting Provider: RENÉE SKINNER Date/Time of Note DATE: 01/05/19 TIME: 11:45 Exam/Review of Systems Exam Vitals Vital Signs Date Temp Pulse Resp B/P (MAP) Pulse Ox O2 O2 Flow FiO2 Time Delivery Rate 01/05/19 83 25 100 40 11:15 01/05/19 83/59 (67) 09:45 01/05/19 Mechanical 09:00 Ventilator 01/05/19 98.5 08:00 Intake and Output 01/04/19 01/04/19 01/05/19 1515:00 23:00 07:00 IntakeIntake Total 1035.000 ml 419.000 ml 843.75 ml BalanceBalance 1035.000 ml 419.000 ml 843.75 ml Results Result Diagram: 01/05/19 0430 01/05/19 0430 Results 24hrs Laboratory Tests Test 01/04/19 12:17 01/04/19 13:11 01/04/19 13:20 01/04/19 18:09 Bedside Glucose 50 L 107 109 64 L Test 01/04/19 18:31 01/04/19 18:43 01/04/19 21:06 01/04/19 21:43 Bedside Glucose 172 150 56 L 87 Test 01/05/19 00:41 01/05/19 04:10 01/05/19 04:30 01/05/19 04:46 Bedside Glucose 96 106 White Blood 5.3 # Count Red Blood Count 2.98 #L Hemoglobin 9.1 #L Hematocrit 25.1 #L Mean Corpuscular 84.2 Volume Mean Corpuscular 30.5 Hemoglobin Mean Corpuscular 36.3 Hemoglobin Anh nt Red Cell 13.4 Distribution Width Platelet Count 4 #*L Mean Platelet Volume Immature 1.300 H Granulocytes % Neutrophils % Segmented 72 Neutrophils % (Manual) Band Neutrophils 17 H % (Manual) Lymphocytes % Lymphocytes % 9 L (Manual) Monocytes % Monocytes % 2 (Manual) Eosinophils % Basophils % Nucleated Red 0.0 Blood Cells % Immature 0.070 H Granulocytes # Neutrophils # Neutrophils # 3.9 (Manual) Band Neutrophils 0.9 H # Lymphocytes 0.4 L (Manual) Lymphocytes # Monocytes # Monocytes # 0.1 L (Manual) Eosinophils # Basophils # Nucleated Red Blood Cells # Platelet SIG DECREASED Estimate Poikilocytosis 3+ Anisocytosis 1+ Macrocytosis 1+ Sodium Level 131 L Potassium Level 3.8 Chloride Level 99 Carbon Dioxide 23 Level Anion Gap 9 Blood Urea 64 H Nitrogen Creatinine 0.68 Est Glomerular > 60 Filtrat Rate mL/min Glucose Level 94 Calcium Level 6.9 L Phosphorus Level 3.5 Magnesium Level 1.6 L Total Bilirubin 3.3 H Direct Bilirubin 1.50 H Indirect 1.8 H Bilirubin Aspartate Amino 23 Transf (AST/SGOT ) Alanine 29 Aminotransferase (ALT/SGPT) Alkaline 120 Phosphatase Total Protein 4.6 L Albumin 1.9 L Globulin 2.70 Albumin/Globulin 0.70 Ratio Lab Scanned BLOOD TRANSFUSI Report ON Test 01/05/19 09:02 01/05/19 10:26 01/05/19 10:47 Bedside Glucose 72 60 L 201 Medications Medication Current Medications Glucose (Glutose) 15 gm Q15M PRN PO DECREASED GLUCOSE; Start 11/23/18 at 13:30 Glucose (Glutose) 22.5 gm Q15M PRN PO DECREASED GLUCOSE; Start 11/23/18 at 13:30 Dextrose (D50w Syringe) 25 ml Q15M PRN IV DECREASED GLUCOSE Last administered on 01/05/19at 10:29; Admin Dose 25 ML; Start 11/23/18 at 13:30 Dextrose (D50w Syringe) 50 ml Q15M PRN IV DECREASED GLUCOSE Last administered on 01/03/19at 18:00; Admin Dose 50 ML; Start 11/23/18 at 13:30 Glucagon (Glucagen) 1 mg Q15M PRN IM DECREASED GLUCOSE; Start 11/23/18 at 13:30 Glucose (Glutose) 15 gm Q15M PRN BUCCAL DECREASED GLUCOSE; Start 11/23/18 at 13:30 Albumin Human 100 ml @ 100 mls/hr DURING DIALYSIS PRN IV HYPOTENSION DURING HD Last administered on 01/03/19 21:52; Admin Dose 100 MLS/HR; Start 11/26/18 at 14:00 Collagenase (Santyl) 1 applic DAILY TOP Last administered on 01/05/19 09:05; Admin Dose 1 APPLIC; Start 12/01/18 at 16:30 Acetaminophen (Tylenol Liquid) 650 mg Q6H PRN NGT PAIN LEVEL 1-3 OR FEVER Last administered on 12/28/18 06:03; Admin Dose 650 MG; Start 12/06/18 at 09:00 Midodrine (Proamatine) 5 mg TID@,13,17 GTB Last administered on 01/01/19 14:00; Admin Dose 5 MG; Start 12/07/18 at 09:00 Epoetin Margarito-epbx (RETACRIT(esrd)) 10,000 unit MoWeFr@1700 SC Last administered on 01/04/19 18:06; Admin Dose 10,000 UNIT; Start 12/11/18 at 17:00 Lorazepam (Ativan) 1 mg Q4H PRN IV AGITATION/ANXIETY Last administered on 12/19/18 05:41; Admin Dose 1 MG; Start 12/15/18 at 11:00 Morphine Sulfate (morphine) 1 mg Q4H PRN IV SEVERE PAIN LEVEL 7-10 Last administered on 01/04/19 08:23; Admin Dose 1 MG; Start 12/15/18 at 11:00 Metoclopramide HCl (Reglan) 5 mg Q8 IV Last administered on 01/05/19 06:04; A dmin Dose 5 MG; Start 12/17/18 at 12:00 Diltiazem HCl 125 ml @ 5 mls/hr TITRATE IV ; Start 12/29/18 at 09:30 Levothyroxine Sodium (Synthroid) 75 mcg BEFORE BREAKFAST GTB Last administered on 01/05/19 06:04; Admin Dose 75 MCG; Start 12/30/18 at 07:00 Albuterol (Ventolin Hfa) 4 puff Q4H RESP THERAPY PRN INH WHEEZING; Start 12/30/18 at 08:00 Caspofungin 50 mg/ Sodium Chloride 250 ml @ 250 mls/hr Q24H IVPB Last administered on 01/04/19 13:13; Admin Dose 250 MLS/HR; Start 12/31/18 at 13:00 Eye Lubricant (Akwa Oint) 1 applic Q6 BOTH EYES Last administered on 01/05/19 11:17; Admin Dose 1 APPLIC; Start 01/01/19 at 12:00 Eye Lubricant (Artificial Tears Oph) 2 drop Q6 BOTH EYES Last administered on 01/05/19 11:16; Admin Dose 2 DROP; Start 01/01/19 at 12:00 Norepinephrine 250 ml @ 1.875 mls/ hr TITRATE IV Last administered on 01/01/19 17:54; Admin Dose 3.75 MLS/HR; Start 01/01/19 at 11:30 Amiodarone HCl 100 ml @ 600 mls/hr DAILY IV Last administered on 01/05/19 10:58; Admin Dose 600 MLS/HR; Start 01/01/19 at 14:00 Diagnostic Test (Pha) (Accu-Chek) 1 ea Q4 XX Last administered on 01/03/19 05:49; Admin Dose 1 EA; Start 01/02/19 at 09:00 Insulin Aspart (Novolog Insulin Pen) NOVOLOG *MILD* ALGORI... Q4 SC ; Start 01/02/19 at 13:00 Meropenem/Sodium Chloride 50 ml @ 100 mls/hr Q12H IVPB Last administered on 01/04/19at 23:25; Admin Dose 100 MLS/HR; Start 01/04/19 at 00:00 Clindamycin HCl/ Dextrose 50 ml @ 100 mls/hr Q8H IVPB Last administered on 01/05/19at 11:14; Admin Dose 100 MLS/HR; Start 01/04/19 at 01:00 Dextrose 1,000 ml @ 40 mls/hr Q24H IV Last administered on 01/04/19at 21:10; Admin Dose 40 MLS/HR; Start 01/04/19 at 13:30 Phenylephrine HCl 80 mg/Dextrose 250 ml @ 18.75 mls/ hr TITRATE PRN IV BLOOD PRESSURE SUPPORT; Start 01/05/19 at 11:00 KELSIE ELY NP January 05, 2019 11:47
[2019-01-05] MEDS: MEROPENEM 500MG/50 ML (PMX) 50 ML IVPB SCH (12:30)
[2019-01-05] MEDS: CASPOFUNGIN 50 MG in SOD CHLORIDE 0.9% 250 ML IVPB SCH (13:15)
--- NOTE | 2019-01-05 13:24 | PN ---
Date/Time of Note Date/Time of Note DATE: 01/05/19 TIME: 13:22 Assessment/Plan VTE Prophylaxis Risk score (from Ns)>0 risk: 8 SCD applied (from Ns): No SCD contraindicated: other (scds) Pharmacological prophylaxis: other (scds) Lines/Catheters IV Catheter Type (from [facility] Mid Line Urinary Cath still in place: No Assessment/Plan Hospital Course Assessment: Leaking G-tube with wound and drainage -WOUND CULTURE- Preliminary K.PNEUMONIAE SSP PNEUMONIAE/VRE Patient is in contact isolation for Klebsiella in the blood Severe caloric deficiency Chronic respiratory failure status post tracheostomy Liver cirrhosis Chronic kidney failure -dialysis Pancytopenia -Profound thrombocytopenia Left lower extremity wound and pitting edema= PAD s/p bypass graft SEP 2018 Plan: Keep the tube clamped- G-tube may need to be removed- however given Plt and malnutrition concerns removal may cause more harm- due to poor healing Continue topical care around the stoma/Antibiotics per ID TPN has been ordered- given limited options to provide daily caloric needed Personal family meeting between patient/spouse/sons to take place today per Monitor labs Patient seen in collaboration with /Lisseth Subjective: Course reviewed with nursing staff Patient interviewed and examined All labs, imaging and other results reviewed Family at bedside, pt currently denies n/v or abd pain. Recal tube in place, discussed with family plan to hold off on an additional imaging as they are planning to have a personal family meeting today PHYSICAL EXAMINATION: GENERAL: Cachectic ill-appearing intubated on pressors SKIN: dialysis catheter EYES: Pupils equal reactive to light, no discharge. EARS/NOSE AND THROAT: Ears normal, nose normal, oropharynx normal. NECK: Supple, no masses CHEST: Inspection within normal limits. CARDIOVASCULAR: Heart: Regular rate and rhythm, paced RESPIRATORY: Lungs clear to auscultation GASTROINTESTINAL AND LIVER: Abdomen: Soft, non tenderness, g-tube,no hernias, no masses, no rebound tenderness, normoactive bowel sounds. Rectal: Deferred. Result Diagram: 01/05/1942901/05/19 0430 Results 24hrs Laboratory Tests Test 01/04/19 18:09 01/04/19 18:31 01/04/19 18:43 01/04/19 21:06 Bedside Glucose 64 L 172 150 56 L Test 01/04/19 21:43 01/05/19 00:41 01/05/19 04:10 01/05/19 04:30 Bedside Glucose 87 96 106 White Blood 5.3 # Count Red Blood Count 2.98 #L Hemoglobin 9.1 #L Hematocrit 25.1 #L Mean Corpuscular 84.2 Volume Mean Corpuscular 30.5 Hemoglobin Mean Corpuscular 36.3 Hemoglobin Anh nt Red Cell 13.4 Distribution Width Platelet Count 4 #*L Mean Platelet Volume Immature 1.300 H Granulocytes % Neutrophils % Segmented 72 Neutrophils % (Manual) Band Neutrophils 17 H % (Manual) Lymphocytes % Lymphocytes % 9 L (Manual) Monocytes % Monocytes % 2 (Manual) Eosinophils % Basophils % Nucleated Red 0.0 Blood Cells % Immature 0.070 H Granulocytes # Neutrophils # Neutrophils # 3.9 (Manual) Band Neutrophils 0.9 H # Lymphocytes 0.4 L (Manual) Lymphocytes # Monocytes # Monocytes # 0.1 L (Manual) Eosinophils # Basophils # Nucleated Red Blood Cells # Platelet SIG DECREASED Estimate Poikilocytosis 3+ Anisocytosis 1+ Macrocytosis 1+ Sodium Level 131 L Potassium Level 3.8 Chloride Level 99 Carbon Dioxide 23 Level Anion Gap 9 Blood Urea 64 H Nitrogen Creatinine 0.68 Est Glomerular > 60 Filtrat Rate mL/min Glucose Level 94 Calcium Level 6.9 L Phosphorus Level 3.5 Magnesium Level 1.6 L Total Bilirubin 3.3 H Direct Bilirubin 1.50 H Indirect 1.8 H Bilirubin Aspartate Amino 23 Transf (AST/SGOT ) Alanine 29 Aminotransferase (ALT/SGPT) Alkaline 120 Phosphatase Total Protein 4.6 L Albumin 1.9 L Globulin 2.70 Albumin/Globulin 0.70 Ratio Test 01/05/19 04:46 01/05/19 09:02 01/05/19 10:26 01/05/19 10:47 Lab Scanned BLOOD TRANSFUSI Report ON Bedside Glucose 72 60 L 201 Test 01/05/19 13:17 Bedside Glucose 102 Exam/Review of Systems Exam Vitals Vital Signs Date Temp Pulse Resp B/P (MAP) Pulse Ox O2 O2 Flow FiO2 Time Delivery Rate 01/05/19 77 24 75/56 (62) 12:30 01/05/19 99 12:15 01/05/19 98.4 Mechanical 12:00 Ventilator 01/05/19 40 11:15 Intake and Output 01/04/19 01/04/19 01/05/19 1515:00 23:00 07:00 IntakeIntake Total 1035.000 ml 419.000 ml 843.75 ml BalanceBalance 1035.000 ml 419.000 ml 843.75 ml Results Results 24hrs Laboratory Tests Test 01/04/19 18:09 01/04/19 18:31 01/04/19 18:43 01/04/19 21:06 Bedside Glucose 64 L 172 150 56 L Test 01/04/19 21:43 01/05/19 00:41 01/05/19 04:10 01/05/19 04:30 Bedside Glucose 87 96 106 White Blood 5.3 # Count Red Blood Count 2.98 #L Hemoglobin 9.1 #L Hematocrit 25.1 #L Mean Corpuscular 84.2 Volume Mean Corpuscular 30.5 Hemoglobin Mean Corpuscular 36.3 Hemoglobin Anh nt Red Cell 13.4 Distribution Width Platelet Count 4 #*L Mean Platelet Volume Immature 1.300 H Granulocytes % Neutrophils % Segmented 72 Neutrophils % (Manual) Band Neutrophils 17 H % (Manual) Lymphocytes % Lymphocytes % 9 L (Manual) Monocytes % Monocytes % 2 (Manual) Eosinophils % Basophils % Nucleated Red 0.0 Blood Cells % Immature 0.070 H Granulocytes # Neutrophils # Neutrophils # 3.9 (Manual) Band Neutrophils 0.9 H # Lymphocytes 0.4 L (Manual) Lymphocytes # Monocytes # Monocytes # 0.1 L (Manual) Eosinophils # Basophils # Nucleated Red Blood Cells # Platelet SIG DECREASED Estimate Poikilocytosis 3+ Anisocytosis 1+ Macrocytosis 1+ Sodium Level 131 L Potassium Level 3.8 Chloride Level 99 Carbon Dioxide 23 Level Anion Gap 9 Blood Urea 64 H Nitrogen Creatinine 0.68 Est Glomerular > 60 Filtrat Rate mL/min Glucose Level 94 Calcium Level 6.9 L Phosphorus Level 3.5 Magnesium Level 1.6 L Total Bilirubin 3.3 H Direct Bilirubin 1.50 H Indirect 1.8 H Bilirubin Aspartate Amino 23 Transf (AST/SGOT ) Alanine 29 Aminotransferase (ALT/SGPT) Alkaline 120 Phosphatase Total Protein 4.6 L Albumin 1.9 L Globulin 2.70 Albumin/Globulin 0.70 Ratio Test 01/05/19 04:46 01/05/19 09:02 01/05/19 10:26 01/05/19 10:47 Lab Scanned BLOOD TRANSFUSI Report ON Bedside Glucose 72 60 L 201 Test 01/05/19 13:17 Bedside Glucose 102 Medications Medication Current Medications Glucose (Glutose) 15 gm Q15M PRN PO DECREASED GLUCOSE; Start 11/23/18 at 13:30 Glucose (Glutose) 22.5 gm Q15M PRN PO DECREASED GLUCOSE; Start 11/23/18 at 13:30 Dextrose (D50w Syringe) 25 ml Q15M PRN IV DECREASED GLUCOSE Last administered on 01/05/19at 10:29; Admin Dose 25 ML; Start 11/23/18 at 13:30 Dextrose (D50w Syringe) 50 ml Q15M PRN IV DECREASED GLUCOSE Last administered on 01/03/19 18:00; Admin Dose 50 ML; Start 11/23/18 at 13:30 Glucagon (Glucagen) 1 mg Q15M PRN IM DECREASED GLUCOSE; Start 11/23/18 at 13:30 Glucose (Glutose) 15 gm Q15M PRN BUCCAL DECREASED GLUCOSE; Start 11/23/18 at 13:30 Albumin Human 100 ml @ 100 mls/hr DURING DIALYSIS PRN IV HYPOTENSION DURING HD Last administered on 01/03/19at 21:52; Admin Dose 100 MLS/HR; Start 11/26/18 at 14:00 Collagenase (Santyl) 1 applic DAILY TOP Last administered on 01/05/19 09:05; Admin Dose 1 APPLIC; Start 12/01/18 at 16:30 Acetaminophen (Tylenol Liquid) 650 mg Q6H PRN NGT PAIN LEVEL 1-3 OR FEVER Last administered on 12/28/18 06:03; Admin Dose 650 MG; Start 12/06/18 at 09:00 Midodrine (Proamatine) 5 mg TID@,,17 GTB Last administered on 01/01/19 14:00; Admin Dose 5 MG; Start 12/07/18 at 09:00 Epoetin Margarito-epbx (RETACRIT(esrd)) 10,000 unit MoWeFr@1700 SC Last administered on 01/04/19 18:06; Admin Dose 10,000 UNIT; Start 12/11/18 at 17:00 Lorazepam (Ativan) 1 mg Q4H PRN IV AGITATION/ANXIETY Last administered on 12/19/18 05:41; Admin Dose 1 MG; Start 12/15/18 at 11:00 Morphine Sulfate (morphine) 1 mg Q4H PRN IV SEVERE PAIN LEVEL 7-10 Last administered on 01/04/19 08:23; Admin Dose 1 MG; Start 12/15/18 at 11:00 Metoclopramide HCl (Reglan) 5 mg Q8 IV Last administered on 01/05/19 13:15; Admin Dose 5 MG; Start 12/17/18 at 12:00 Diltiazem HCl 125 ml @ 5 mls/hr TITRATE IV ; Start 12/29/18 at 09:30 Levothyroxine Sodium (Synthroid) 75 mcg BEFORE BREAKFAST GTB Last administered on 01/05/19 06:04; Admin Dose 75 MCG; Start 12/30/18 at 07:00 Albuterol (Ventolin Hfa) 4 puff Q4H RESP THERAPY PRN INH WHEEZING; Start 12/30/18 at 08:00 Caspofungin 50 mg/ Sodium Chloride 250 ml @ 250 mls/hr Q24H IVPB Last administered on 01/05/19 13:15; Admin Dose 250 MLS/HR; Start 12/31/18 at 13:00 Eye Lubricant (Akwa Oint) 1 applic Q6 BOTH EYES Last administered on 01/05/19 11:17; Admin Dose 1 APPLIC; Start 01/01/19 at 12:00 Eye Lubricant (Artificial Tears Oph) 2 drop Q6 BOTH EYES Last administered on 01/05/19 11:16; Admin Dose 2 DROP; Start 01/01/19 at 12:00 Norepinephrine 250 ml @ 1.875 mls/ hr TITRATE IV Last administered on 01/01/19 17:54; Admin Dose 3.75 MLS/HR; Start 01/01/19 at 11:30 Amiodarone HCl 100 ml @ 600 mls/hr DAILY IV Last administered on 01/05/19 10:58; Admin Dose 600 MLS/HR; Start 01/01/19 at 14:00 Diagnostic Test (Pha) (Accu-Chek) 1 ea Q4 XX Last administered on 01/03/19 05:49; Admin Dose 1 EA; Start 01/02/19 at 09:00 Insulin Aspart (Novolog Insulin Pen) NOVOLOG *MILD* ALGORI... Q4 SC ; Start 01/02/19 at 13:00 Meropenem/Sodium Chloride 50 ml @ 100 mls/hr Q12H IVPB Last administered on 01/05/19at 12:30; Admin Dose 100 MLS/HR; Start 01/04/19 at 00:00 Clindamycin HCl/ Dextrose 50 ml @ 100 mls/hr Q8H IVPB Last administered on 01/05/19at 11:14; Admin Dose 100 MLS/HR; Start 01/04/19 at 01:00 Dextrose 1,000 ml @ 40 mls/hr Q24H IV Last administered on 01/04/19at 21:10; Admin Dose 40 MLS/HR; Start 01/04/19 at 13:30 Phenylephrine HCl 80 mg/Dextrose 250 ml @ 18.75 mls/ hr TITRATE PRN IV BLOOD PRESSURE SUPPORT; Start 01/05/19 at 11:00 C[place]AND FISH January 05, 2019 13:24
--- NOTE | 2019-01-05 13:24 | PN ---
Date/Time of Note Date/Time of Note DATE: 01/05/19 TIME: 13:23 Assessment/Plan Lines/Catheters IV Catheter Type (from Nrsg): Mid Line Moon in Place (from Nrsg): No Assessment/Plan Assessment/Plan Respiratory failure This post tracheostomy Trach site clean Bleeding We will continue vent support Pulmonary toilet Trach care Subjective 24 Hr Interval Summary Constitutional: no complaints, improved, ambulates, BM, flatus, urine output Pain Control: well controlled Exam/Review of Systems Vital Signs Vitals Vital Signs Date Temp Pulse Resp B/P (MAP) Pulse Ox O2 O2 Flow FiO2 Time Delivery Rate 01/05/19 77 24 75/56 (62) 12:30 01/05/19 99 12:15 01/05/19 98.4 Mechanical 12:00 Ventilator 01/05/19 40 11:15 Intake and Output 01/04/19 01/04/19 01/05/19 1515:00 23:00 07:00 IntakeIntake Total 1035.000 ml 419.000 ml 843.75 ml BalanceBalance 1035.000 ml 419.000 ml 843.75 ml Exam Eyes: nl conjunctiva, EOMI, nl lids, nl sclera ENMT: nl external ears & nose, nl lips & teeth, nl nasal mucosa & septum, mucosa pink and moist Neck: supple, non-tender Respiratory: clear to auscultation, normal air movement Cardiovascular: regular rate and rhythm, nl pulses Gastrointestinal: soft, nl liver, spleen, non-tender Musculoskeletal: nl extremities to inspection, nl gait and stance Results Result Diagram: 01/05/19 0430 01/05/19 0430 TAE PAN MD January 05, 2019 13:24
--- NOTE | 2019-01-05 19:19 | PN ---
DATE: 01/05/2019 SUBJECTIVE: The patient is unresponsive. OBJECTIVE: GENERAL: The patient is a well-developed, but cachectic female who is unresponsive. VITAL SIGNS: Temperature is 98.6 axillary, pulse 74 per minute and regular, respirations 22, blood p ressure 87/55, pulse oximetry 100% on ventilator. SKIN: Increased pigmentation with diffuse ecchymoses and purpura. HEENT: Normocephalic. There is temporal wasting and cachexia. Oral mucosa is dry. NECK: Supple. No jugular venous distention or thyroid enlargement. No carotid bruits. There is a tracheostomy in place. CHEST: Clear to auscultation and percussion. No rhonchi, wheezes, rales or rubs. ABDOMEN: Slightly distended and firm. There is a G-tube in place. There is no succussion splash. EXTREMITIES: Mild peripheral edema. LABORATORY DATA: WBC is 5300 and absolute neutrophil count is 3900, hemoglobin 9.1, hematocrit 25.4, platelet count is 4000. Sodium 131, potassium 3.8, BUN 64, creatinine 0.68. Total bilirubin 3.3 wi th a direct bilirubin of 1.5, AST 23, ALT 29, alkaline phosphatase 120. ASSESSMENT: 1. Chronic renal failure on dialysis. 2. Pancytopenia. Studies demonstrate negative screen for antiplatelet antibodies. Heparin dependent antibodies are al so negative. When patient was here 1 month ago, studies were weakly positive. The patient remains on phenylephrine at this time. Family apparently is going to make decision regarding further active therapy versus supportive measur es only. Certainly, I would recommend supportive care only with no other active intervention such as vasopress ors, blood products, et cetera. Dictated By: SHANICE GODINEZ MD SR/NTS Conf#: [id number] DID#: [id number] CC: SARAH ORTIZ MD; LORRAINE JOHNSON MD; MANDY BATES MD;*End*
[2019-01-05] MEDS: PHENYLephrine 80 MG in DEXTROSE 5% 242 ML IV PRN (19:21)
[2019-01-05] MEDS: DEXTROSE 10% 1,000 ML IV SCH (21:33)
[2019-01-06] VITALS (86 sets, daily range): BP systolic 64–135; BP diastolic 43–65; PULSE 71–130; RESP 17–30
[2019-01-06] MEDS: INSULIN ASPART [NOVOLOG] 3 ML PEN SC SCH ×6 (01:00→21:00)
[2019-01-06] MEDS: ACCU-CHEK XX SCH ×6 (01:18→21:35)
[2019-01-06] MEDS: CLINDAMYCIN 600 MG/D5W (PMX) 50 ML IVPB SCH ×3 (01:18→17:26)
[2019-01-06] MEDS: MEROPENEM 500MG/50 ML (PMX) 50 ML IVPB SCH ×3 (01:18→23:11)
[2019-01-06] MEDS: OCULAR LUBRICANT 3.5 GM OPH OINT BOTH EYES SCH ×5 (01:18→23:11)
[2019-01-06] MEDS: ARTIFICIAL TEARS 15 ML OPH BOTH EYES SCH ×5 (01:18→23:11)
[2019-01-06] MEDS: PHENYLephrine 80 MG in DEXTROSE 5% 242 ML IV PRN ×4 (02:02→21:43)
[2019-01-06] MEDS: METOCLOPRAMIDE 10 MG INJ IV SCH ×3 (05:56→21:34)
[2019-01-06] MEDS: NORepinephrine 8MG/250 ML (PMX 250 ML IV SCH ×3 (06:16→22:38)
[2019-01-06] MEDS: LEVOTHYROXINE 75 MCG TAB GTB SCH (06:17)
[2019-01-06] MEDS: MIDODRINE 5 MG TAB GTB SCH ×3 (08:19→17:00)
[2019-01-06] MEDS: AMIODARONE 150MG/D5W BOLUS 100 ML IV SCH (08:22)
[2019-01-06] MEDS: DEXTROSE 50% 50 ML SYRINGE IV PRN ×3 (08:22→22:32)
[2019-01-06] MEDS: COLLAGENASE 5 GM (UD JAR) TOP SCH (08:24)
[2019-01-06] MEDS: BALSAM PERU/CASTOR OIL 60 GM TUBE TOP SCH ×2 (08:25→21:35)
--- NOTE | 2019-01-06 08:47 | PN ---
DATE: 01/06/2019 SUBJECTIVE: The patient is critically ill on pressor support. No other acute events noted. No hemo ptysis, hematemesis or hematochezia. OBJECTIVE: VITAL SIGNS: Blood pressure is 74/48, respirations 22, pulse 74, temperature 98.0. HEENT: Head is normocephalic. NECK: Supple. HEART: Regular rate. LUNGS: Show diminished breath sounds at the base. ABDOMEN: Soft, nontender to palpation. No rebound or guarding. EXTREMITIES: Negative for clubbing, cyanosis. Positive edema, diffuse anasarca. DERMATOLOGIC: No rashes. MUSCULOSKELETAL: No joint effusion. NEUROLOGIC: No change in exam. MEDICATIONS: Reviewed. LABORATORY DATA: Reviewed. ASSESSMENT AND PLAN: 1. End-stage renal disease. The patient will hold hemodialysis today as the patient is currently hy potensive, hemodynamically unstable. 2. Anemia. Continue to monitor hemoglobin and hematocrit levels. Continue Epogen. Transfuse PRBCs as tolerated. 3. Volume overload, diffuse anasarca. Attempt ultrafiltration with dialysis if hemodynamically stab le. 4. Hypernatremia, etiology is due to end-stage renal disease in conjunction with hypertonic fluid. Plan is to discontinue D5 water and monitor. 5. Hypomagnesemia. Continue to monitor and replete as needed. 6. Access. The patient has Perm-A-Cath. Continue local access care. 7. Septic shock. Continue medical management. Continue antibiotics, pressor support. 8. Thrombocytopenia. Continue to monitor. 9. Dysphagia. 10. Arrhythmia. Continue amiodarone. 11. Lower extremity wounds. Continue wound care. 12. Status post cardiopulmonary arrest. Dictated By: SARIKA JOINER DO NR/NTS Conf#: [id number] DID#: [id number] CC: SARAH ORTIZ MD; LORRAINE JOHNSON MD; MANDY BATES MD;*EndCC*
[2019-01-06] MEDS ORDERED: SODIUM CHLORIDE 23.4% 154 MEQ in DEXTROSE 10% 1,000 ML IV SCH (09:00)
--- NOTE | 2019-01-06 09:07 | CONS ---
Consult Date/Type/Reason Admit Date/Time Nov 21, 2018 at 04:53 Initial Consult Date Type of Consult Pulmonary Requesting Provider: RENÉE SKINNER Date/Time of Note DATE: 01/06/19 TIME: 09:03 Subjective Continues to decline. Multiple vasopressors. Objective Vital Signs Date Temp Pulse Resp B/P (MAP) Pulse Ox O2 O2 Flow FiO2 Time Delivery Rate 01/06/19 77 20 100/60 100 08:30 (73) 01/06/19 97.7 Mechanical 08:00 Ventilator 01/06/19 50 08:00 Intake and Output 01/05/19 01/05/19 01/06/19 1515:00 23:00 07:00 IntakeIntake Total 1113.80 ml 610.05 ml 729.38 ml OutputOutput Total 0 ml 0 ml BalanceBalance 1113.80 ml 610.05 ml 729.38 ml Exam GENERAL: Frail cachectic lady on mechanical ventilation VITAL SIGNS: per chart NECK: Supple. No JVD or lymphadenopathy. CARDIAC EXAM: S1, S2. No added sounds or murmurs. CHEST: Diminished air entry bilaterally ABDOMEN: Soft, nontender. No guarding or rebound. EXTREMITIES: No cyanosis, clubbing or edema. NEUROLOGIC: Generalized weakness. No focal deficits. Vent Setting Ventilator Support Mode: AC Fraction of Inspired Oxygen pe: 50 Positive End Expiratory Pressu: 5.0 Results/Medications Result Diagram: 01/06/19 0400 01/06/19 0400 Results 24 hrs Laboratory Tests Test 01/05/19 10:26 01/05/19 10:47 01/05/19 13:17 01/05/19 17:23 Bedside Glucose 60 L 201 102 81 Test 01/05/19 21:42 01/06/19 01:23 01/06/19 04:00 01/06/19 05:36 Bedside Glucose 77 91 119 White Blood Count 7.3 # Red Blood Count 2.37 #L Hemoglobin 7.2 #L Hematocrit 19.9 #L Mean Corpuscular 84.0 Volume Mean Corpuscular 30.4 Hemoglobin Mean Corpuscular 36.2 Hemoglobin Concent Red Cell 13.5 Distribution Width Platelet Count 4 *L Mean Platelet Volume Immature 1.000 H Granulocytes % Neutrophils % Lymphocytes % Monocytes % Eosinophils % Basophils % Nucleated Red Blood 0.0 Cells % Immature 0.070 H Granulocytes # Neutrophils # Lymphocytes # Monocytes # Eosinophils # Basophils # Nucleated Red Blood Cells # Sodium Level 124 L Potassium Level 4.0 Chloride Level 94 L Carbon Dioxide Level 21 Anion Gap 9 Blood Urea Nitrogen 70 H Creatinine 0.82 Est Glomerular > 60 Filtrat Rate mL/min Glucose Level 102 Calcium Level 7.0 L Phosphorus Level 4.3 Magnesium Level 1.9 Test 01/06/19 08:17 Bedside Glucose 20 *L Medications Current Medications Glucose (Glutose) 15 gm Q15M PRN PO DECREASED GLUCOSE; Start 11/23/18 at 13:30 Glucose (Glutose) 22.5 gm Q15M PRN PO DECREASED GLUCOSE; Start 11/23/18 at 13:30 Dextrose (D50w Syringe) 25 ml Q15M PRN IV DECREASED GLUCOSE Last administered on 01/05/19at 10:29; Admin Dose 25 ML; Start 11/23/18 at 13:30 Dextrose (D50w Syringe) 50 ml Q15M PRN IV DECREASED GLUCOSE Last administered on 01/06/19at 08:22; Admin Dose 50 ML; Start 11/23/18 at 13:30 Glucagon (Glucagen) 1 mg Q15M PRN IM DECREASED GLUCOSE; Start 11/23/18 at 13:30 Glucose (Glutose) 15 gm Q15M PRN BUCCAL DECREASED GLUCOSE; Start 11/23/18 at 13:30 Albumin Human 100 ml @ 100 mls/hr DURING DIALYSIS PRN IV HYPOTENSION DURING HD Last administered on 01/03/19 21:52; Admin Dose 100 MLS/HR; Start 11/26/18 at 14:00 Collagenase (Santyl) 1 applic DAILY TOP Last administered on 01/06/19 08:24; Admin Dose 1 APPLIC; Start 12/01/18 at 16:30 Acetaminophen (Tylenol Liquid) 650 mg Q6H PRN NGT PAIN LEVEL 1-3 OR FEVER Last administered on 12/28/18 06:03; Admin Dose 650 MG; Start 12/06/18 at 09:00 Midodrine (Proamatine) 5 mg TID@,13,17 GTB Last administered on 01/01/19 14:00; Admin Dose 5 MG; Start 12/07/18 at 09:00 Epoetin Margarito-epbx (RETACRIT(esrd)) 10,000 unit MoWeFr@1700 SC Last administered on 01/04/19 18:06; Admin Dose 10,000 UNIT; Start 12/11/18 at 17:00 Lorazepam (Ativan) 1 mg Q4H PRN IV AGITATION/ANXIETY Last administered on 12/19/18 05:41; Admin Dose 1 MG; Start 12/15/18 at 11:00 Morphine Sulfate (morphine) 1 mg Q4H PRN IV SEVERE PAIN LEVEL 7-10 Last administered on 01/04/19 08:23; Admin Dose 1 MG; Start 12/15/18 at 11:00 Metoclopramide HCl (Reglan) 5 mg Q8 IV Last administered on 01/06/19 05:56; Admin Dose 5 MG; Start 12/17/18 at 12:00 Diltiazem HCl 125 ml @ 5 mls/hr TITRATE IV ; Start 12/29/18 at 09:30 Levothyroxine Sodium (Synthroid) 75 mcg BEFORE BREAKFAST GTB Last administered on 01/05/19 06:04; Admin Dose 75 MCG; Start 12/30/18 at 07:00 Albuterol (Ventolin Hfa) 4 puff Q4H RESP THERAPY PRN INH WHEEZING; Start 12/30/18 at 08:00 Caspofungin 50 mg/ Sodium Chloride 250 ml @ 250 mls/hr Q24H IVPB Last administered on 01/05/19 13:15; Admin Dose 250 MLS/HR; Start 12/31/18 at 13:00 Eye Lubricant (Akwa Oint) 1 applic Q6 BOTH EYES Last administered on 01/06/19 05:57; Admin Dose 1 APPLIC; Start 01/01/19 at 12:00 Eye Lubricant (Artificial Tears Oph) 2 drop Q6 BOTH EYES Last administered on 01/06/19 05:57; Admin Dose 2 DROP; Start 01/01/19 at 12:00 Norepinephrine 250 ml @ 1.875 mls/ hr TITRATE IV Last administered on 01/06/19 06:16; Admin Dose 1.875 MLS/HR; Start 01/01/19 at 11:30 Amiodarone HCl 100 ml @ 600 mls/hr DAILY IV Last administered on 01/06/19 08:22; Admin Dose 600 MLS/HR; Start 01/01/19 at 14:00 Diagnostic Test (Pha) (Accu-Chek) 1 ea Q4 XX Last administered on 01/06/19at 05:55; Admin Dose 1 EA; Start 01/02/19 at 09:00 Insulin Aspart (Novolog Insulin Pen) NOVOLOG *MILD* ALGORI... Q4 SC ; Start 01/02/19 at 13:00 Meropenem/Sodium Chloride 50 ml @ 100 mls/hr Q12H IVPB Last administered on 01/06/19at 01:18; Admin Dose 100 MLS/HR; Start 01/04/19 at 00:00 Clindamycin HCl/ Dextrose 50 ml @ 100 mls/hr Q8H IVPB Last administered on 01/06/19at 08:37; Admin Dose 100 MLS/HR; Start 01/04/19 at 01:00 Phenylephrine HCl 80 mg/Dextrose 250 ml @ 18.75 mls/ hr TITRATE PRN IV BLOOD PRESSURE SUPPORT Last administered on 01/06/19at 02:02; Admin Dose 37.5 MLS/HR; Start 01/05/19 at 11:00 Sodium Chloride 154 meq/Dextrose 1,038.5 ml @ 40 mls/hr Q24H IV ; Start 01/06/19 at 09:00 Assessment/Plan Hospital Course (Demo Recall) IMP: 1. Ventilator-dependent respiratory failure, status post tracheostomy. 2. Gram-negative sepsis. Septic shock. 3. End-stage renal disease on hemodialysis. 4. Cardiomyopathy. 5. Thrombocytopenia. 6. Anemia. 7. VRE of PEG tube site. Status post transfusion PRBCs and platelets RECS: 1. Continue vent support 2. Continue antibiotics as per ID 3. Hemodialysis per nephrology 4. Continue tube feeding as tolerated Probable small Discussed with family, they are scheduled to have family meeting regarding goals of care. Critical care time 40 minutes. NINA MORRIS MD, [facility] January 06, 2019 09:07
--- NOTE | 2019-01-06 10:04 | PN ---
Date/Time of Note Date/Time of Note DATE: 01/06/19 TIME: 10:02 Assessment/Plan VTE Prophylaxis Risk score (from Ns)>0 risk: 9 [place] [facility] [place] SCD contraindicated: other (scds) Pharmacological prophylaxis: other (scds) Lines/Catheters [facility] (from [facility] Mid Line Urinary Cath still in place: No Assessment/Plan Hospital Course Assessment: Leaking G-tube with wound and drainage -WOUND CULTURE- Preliminary K.PNEUMONIAE SSP PNEUMONIAE/VRE Patient is in contact isolation for Klebsiella in the blood Severe caloric deficiency Chronic respiratory failure status post tracheostomy Liver cirrhosis Chronic kidney failure -dialysis Pancytopenia -Profound thrombocytopenia Left lower extremity wound and pitting edema= PAD s/p bypass graft SEP 2018 Plan: Keep the tube clamped- G-tube may need to be removed- however given Plt and severe malnutrition concerns removal may cause more harm- due to poor healing Continue topical care around the stoma/Antibiotics per ID TPN - given limited options to provide daily caloric needed Family meeting today Monitor labs Patient seen in collaboration with /Lisseth Subjective: Course reviewed with nursing staff Patient interviewed and examined All labs, imaging and other results reviewed Pt with needs for increase in pressors G-tube area continues to leak Patient deemed too unstable to proceed with HD at this time PHYSICAL EXAMINATION: GENERAL: Frail, cachectic, female s/p tracheostomy on mechanical ventilation SKIN: dialysis catheter, multiple wound- open sore near g-tube ostomy EYES: Pupils equal reactive to light, no discharge. EARS/NOSE AND THROAT: Ears normal, nose normal, oropharynx normal. NECK: Supple, no masses CHEST: Inspection within normal limits. CARDIOVASCULAR: Heart: Regular rate and rhythm, paced RESPIRATORY: Lungs clear to auscultation GASTROINTESTINAL AND LIVER: Abdomen: Soft, non tenderness, g-tube,no hernias, no masses, no rebound tenderness, normoactive bowel sounds. Rectal: Deferred. Result Diagram: 01/06/19 0400 01/06/19 0910 Results 24hrs Laboratory Tests Test 01/05/19 10:26 01/05/19 10:47 01/05/19 13:17 01/05/19 17:23 Bedside Glucose 60 L 201 102 81 Test 01/05/19 21:42 01/06/19 01:23 01/06/19 04:00 01/06/19 05:36 Bedside Glucose 77 91 119 White Blood Count 7.3 # Red Blood Count 2.37 #L Hemoglobin 7.2 #L Hematocrit 19.9 #L Mean Corpuscular 84.0 Volume Mean Corpuscular 30.4 Hemoglobin Mean Corpuscular 36.2 Hemoglobin Concent Red Cell 13.5 Distribution Width Platelet Count 4 *L Mean Platelet Volume Immature 1.000 H Granulocytes % Neutrophils % Lymphocytes % Monocytes % Eosinophils % Basophils % Nucleated Red Blood 0.0 Cells % Immature 0.070 H Granulocytes # Neutrophils # Lymphocytes # Monocytes # Eosinophils # Basophils # Nucleated Red Blood Cells # Sodium Level 124 L Potassium Level 4.0 Chloride Level 94 L Carbon Dioxide Level 21 Anion Gap 9 Blood Urea Nitrogen 70 H Creatinine 0.82 Est Glomerular > 60 Filtrat Rate mL/min Glucose Level 102 Calcium Level 7.0 L Phosphorus Level 4.3 Magnesium Level 1.9 Test 01/06/19 08:17 01/06/19 08:45 01/06/19 08:58 01/06/19 09:10 Bedside Glucose 20 *L 16 *L 275 H Sodium Level 123 L Potassium Level 3.8 Chloride Level 92 L Carbon Dioxide Level 19 L Anion Gap 12 Blood Urea Nitrogen 69 H Creatinine 0.85 Est Glomerular > 60 Filtrat Rate mL/min Glucose Level 225 #H Calcium Level 6.7 L Total Bilirubin 3.5 H Direct Bilirubin 2.10 #H Indirect Bilirubin 1.4 H Aspartate Amino 37 Transf (AST/SGOT) Alanine 32 Aminotransferase (AL T/SGPT) Alkaline Phosphatase 103 Total Protein 4.0 L Albumin 1.6 L Globulin 2.40 Albumin/Globulin 0.66 Ratio Exam/Review of Systems Exam Vitals Vital Signs Date Temp Pulse Resp B/P (MAP) Pulse Ox O2 O2 Flow FiO2 Time Delivery Rate 01/06/19 77 20 100/60 100 08:30 (73) 01/06/19 97.7 Mechanical 08:00 Ventilator 01/06/19 50 08:00 Intake and Output 01/05/19 01/05/19 01/06/19 1515:00 23:00 07:00 IntakeIntake Total 1113.80 ml 610.05 ml 729.38 ml OutputOutput Total 0 ml 0 ml BalanceBalance 1113.80 ml 610.05 ml 729.38 ml Results Results 24hrs Laboratory Tests Test 01/05/19 10:26 01/05/19 10:47 01/05/19 13:17 01/05/19 17:23 Bedside Glucose 60 L 201 102 81 Test 01/05/19 21:42 01/06/19 01:23 01/06/19 04:00 01/06/19 05:36 Bedside Glucose 77 91 119 White Blood Count 7.3 # Red Blood Count 2.37 #L Hemoglobin 7.2 #L Hematocrit 19.9 #L Mean Corpuscular 84.0 Volume Mean Corpuscular 30.4 Hemoglobin Mean Corpuscular 36.2 Hemoglobin Concent Red Cell 13.5 Distribution Width Platelet Count 4 *L Mean Platelet Volume Immature 1.000 H Granulocytes % Neutrophils % Lymphocytes % Monocytes % Eosinophils % Basophils % Nucleated Red Blood 0.0 Cells % Immature 0.070 H Granulocytes # Neutrophils # Lymphocytes # Monocytes # Eosinophils # Basophils # Nucleated Red Blood Cells # Sodium Level 124 L Potassium Level 4.0 Chloride Level 94 L Carbon Dioxide Level 21 Anion Gap 9 Blood Urea Nitrogen 70 H Creatinine 0.82 Est Glomerular > 60 Filtrat Rate mL/min Glucose Level 102 Calcium Level 7.0 L Phosphorus Level 4.3 Magnesium Level 1.9 Test 01/06/19 08:17 01/06/19 08:45 01/06/19 08:58 01/06/19 09:10 Bedside Glucose 20 *L 16 *L 275 H Sodium Level 123 L Potassium Level 3.8 Chloride Level 92 L Carbon Dioxide Level 19 L Anion Gap 12 Blood Urea Nitrogen 69 H Creatinine 0.85 Est Glomerular > 60 Filtrat Rate mL/min Glucose Level 225 #H Calcium Level 6.7 L Total Bilirubin 3.5 H Direct Bilirubin 2.10 #H Indirect Bilirubin 1.4 H Aspartate Amino 37 Transf (AST/SGOT) Alanine 32 Aminotransferase (AL T/SGPT) Alkaline Phosphatase 103 Total Protein 4.0 L Albumin 1.6 L Globulin 2.40 Albumin/Globulin 0.66 Ratio Medications Medication Current Medications Glucose (Glutose) 15 gm Q15M PRN PO DECREASED GLUCOSE; Start 11/23/18 at 13:30 Glucose (Glutose) 22.5 gm Q15M PRN PO DECREASED GLUCOSE; Start 11/23/18 at 13:30 Dextrose (D50w Syringe) 25 ml Q15M PRN IV DECREASED GLUCOSE Last administered on 01/05/19at 10:29; Admin Dose 25 ML; Start 11/23/18 at 13:30 Dextrose (D50w Syringe) 50 ml Q15M PRN IV DECREASED GLUCOSE Last administered on 01/06/19 08:22; Admin Dose 50 ML; Start 11/23/18 at 13:30 Glucagon (Glucagen) 1 mg Q15M PRN IM DECREASED GLUCOSE; Start 11/23/18 at 13:30 Glucose (Glutose) 15 gm Q15M PRN BUCCAL DECREASED GLUCOSE; Start 11/23/18 at 13:30 Albumin Human 100 ml @ 100 mls/hr DURING DIALYSIS PRN IV HYPOTENSION DURING HD Last administered on 01/03/19 21:52; Admin Dose 100 MLS/HR; Start 11/26/18 at 14:00 Collagenase (Santyl) 1 applic DAILY TOP Last administered on 01/06/19 08:24; Admin Dose 1 APPLIC; Start 12/01/18 at 16:30 Acetaminophen (Tylenol Liquid) 650 mg Q6H PRN NGT PAIN LEVEL 1-3 OR FEVER Last administered on 12/28/18 06:03; Admin Dose 650 MG; Start 12/06/18 at 09:00 Midodrine (Proamatine) 5 mg TID@09,13,17 GTB Last administered on 01/01/19 14:00; Admin Dose 5 MG; Start 12/07/18 at 09:00 Epoetin Margarito-epbx (RETACRIT(esrd)) 10,000 unit MoWeFr@1700 SC Last administered on 01/04/19 18:06; Admin Dose 10,000 UNIT; Start 12/11/18 at 17:00 Lorazepam (Ativan) 1 mg Q4H PRN IV AGITATION/ANXIETY Last administered on 12/19/18 05:41; Admin Dose 1 MG; Start 12/15/18 at 11:00 Morphine Sulfate (morphine) 1 mg Q4H PRN IV SEVERE PAIN LEVEL 7-10 Last administered on 01/04/19 08:23; Admin Dose 1 MG; Start 12/15/18 at 11:00 Metoclopramide HCl (Reglan) 5 mg Q8 IV Last administered on 01/06/19 05:56; Admin Dose 5 MG; Start 12/17/18 at 12:00 Diltiazem HCl 125 ml @ 5 mls/hr TITRATE IV ; Start 12/29/18 at 09:30 Levothyroxine Sodium (Synthroid) 75 mcg BEFORE BREAKFAST GTB Last administered on 01/05/19 06:04; Admin Dose 75 MCG; Start 12/30/18 at 07:00 Albuterol (Ventolin Hfa) 4 puff Q4H RESP THERAPY PRN INH WHEEZING; Start 12/30/18 at 08:00 Caspofungin 50 mg/ Sodium Chloride 250 ml @ 250 mls/hr Q24H IVPB Last administered on 01/05/19 13:15; Admin Dose 250 MLS/HR; Start 12/31/18 at 13:00 Eye Lubricant (Akwa Oint) 1 applic Q6 BOTH EYES Last administered on 01/06/19 05:57; Admin Dose 1 APPLIC; Start 01/01/19 at 12:00 Eye Lubricant (Artificial Tears Oph) 2 drop Q6 BOTH EYES Last administered on 01/06/19 05:57; Admin Dose 2 DROP; Start 01/01/19 at 12:00 Norepinephrine 250 ml @ 1.875 mls/ hr TITRATE IV Last administered on 06:16; Admin Dose 1.875 MLS/HR; Start 01/01/19 at 11:30 Amiodarone HCl 100 ml @ 600 mls/hr DAILY IV Last administered on 01/06/19 08:22; Admin Dose 600 MLS/HR; Start 01/01/19 at 14:00 Diagnostic Test (Pha) (Accu-Chek) 1 ea Q4 XX Last administered on 01/06/19 05:55; Admin Dose 1 EA; Start 01/02/19 at 09:00 Insulin Aspart (Novolog Insulin Pen) NOVOLOG *MILD* ALGORI... Q4 SC ; Start at 13:00 Meropenem/Sodium Chloride 50 ml @ 100 mls/hr Q12H IVPB Last administered on 01/06/19 01:18; Admin Dose 100 MLS/HR; Start 01/04/19 at 00:00 Clindamycin HCl/ Dextrose 50 ml @ 100 mls/hr Q8H IVPB Last administered on 01/06/19 08:37; Admin Dose 100 MLS/HR; Start 01/04/19 at 01:00 Phenylephrine HCl 80 mg/Dextrose 250 ml @ 18.75 mls/ hr TITRATE PRN IV BLOOD PRESSURE SUPPORT Last administered on 01/06/19at 02:02; Admin Dose 37.5 MLS/HR; Start 01/05/19 at 11:00 Sodium Chloride 154 meq/Dextrose 1,038.5 ml @ 40 mls/hr Q24H IV ; Start 01/06/19 at 09:00 Miscellaneous Information (*Order Clarification Bulletin) MEDICATION REQUIRES CLARIFICATION:RI... Q8H XX ; Start 01/06/19 at 09:30 [place] FISH January 06, 2019 10:04
--- NOTE | 2019-01-06 12:07 | CONS ---
Assessment/Plan Assessment/Plan Hospital Course (Demo Recall) Patient is hypotensive on multiple pressors she has a many family members at bedside. She is in no distress. Doing poorly Antimicrobials: Cancidas, clindamycin, meropenem Microbiology: Blood culture on admission grew Klebsiella ESBL, repeat blood cultures negative, left thigh wound culture grew Klebsiella ESBL and Leah albicans Allergy: Zosyn, vancomycin Indwelling: Right upper thigh Davie catheter, left femoral triple-lumen catheter, trach Physical examination: This is a chronically ill-appearing cachectic middle-aged woman who is laying comfortably in bed. Head atraumatic normocephalic. Neck is supple. Chest rise symmetrical. Breath sounds diminished bases. Heart: S1-S2, irreg. Abdomen distended. Bowel sounds hypoactive. Extremities with bilateral edema, cyanotic, multiple ecchymotic areas and bruises, left upper thigh dressing present Assessment: 1. Septic shock 2. Healthcare associated pneumonia 3. Respiratory failure, acute on chronic, status post tracheostomy on this admission 4. Peripheral arterial disease status post left lower extremity bypass graft that became infected with wound culture grew Klebsiella ESBL 5. End-stage renal disease, hemodialysis dependent 6. Dysphagia 7. Coronary artery disease status post atrial fibrillation, status post permanent pacemaker 8. Failure to thrive with severe cachexia 9 . Unstageable sacral decubitus 10. History of peritoneal dialysis with peritoneal dialysis still in place 11. Thrombocytopenia 12. Atrial fibrillation 13. G-tube site drainage with colonized bacteria Plan: Doing poorly, continue present care, family to decide regarding final plan of care, possible transition to comfort Consultation Date/Type/Reason Admit Date/Time Nov 21, 2018 at 04:53 Initial Consult Date Type of Consult id Requesting Provider: RENÉE SKINNER Date/Time of Note DATE: 01/06/19 TIME: 12:05 Exam/Review of Systems Exam Vitals Vital Signs Date Temp Pulse Resp B/P (MAP) Pulse Ox O2 O2 Flow FiO2 Time Delivery Rate 01/06/19 77 25 70/46 (54) 100 11:15 01/06/19 Mechanical 11:00 Ventilator 01/06/19 97.7 08:00 01/06/19 50 08:00 Intake and Output 01/05/19 01/05/19 01/06/19 1515:00 23:00 07:00 IntakeIntake Total 1113.80 ml 610.05 ml 729.38 ml OutputOutput Total 0 ml 0 ml BalanceBalance 1113.80 ml 610.05 ml 729.38 ml Results Result Diagram: 01/06/19 0400 01/06/19 0910 Results 24hrs Laboratory Tests Test 01/05/19 13:17 01/05/19 17:23 01/05/19 21:42 01/06/19 01:23 Bedside Glucose 102 81 77 91 Test 01/06/19 04:00 01/06/19 05:36 01/06/19 08:17 01/06/19 08:45 White Blood Count 7.3 # Red Blood Count 2.37 #L Hemoglobin 7.2 #L Hematocrit 19.9 #L Mean Corpuscular 84.0 Volume Mean Corpuscular 30.4 Hemoglobin Mean Corpuscular 36.2 Hemoglobin Concent Red Cell 13.5 Distribution Width Platelet Count 4 *L Mean Platelet Volume Immature 1.000 H Granulocytes % Neutrophils % Segmented 83 H Neutrophils % (Manual) Band Neutrophils % 9 H (Manual) Lymphocytes % Lymphocytes % 5 L (Manual) Reactive 1 H Lymphocytes % (Manual) Monocytes % Monocytes % 1 (Manual) Eosinophils % Eosinophils % 1 (Manual) Basophils % Nucleated Red 1 H Blood Cells % Immature 0.070 H Granulocytes # Neutrophils # Neutrophils # 6.1 (Manual) Band Neutrophils # 0.6 Lymphocytes 0.3 L (Manual) Lymphocytes # Reactive 0.0 Lymphocytes # Monocytes # Monocytes # 0.0 L (Manual) Eosinophils # Basophils # Nucleated Red Blood Cells # Toxic Granulation 1+ Platelet Estimate SIG DECREASED Giant Platelets 3 H Poikilocytosis 2+ Anisocytosis 2+ Microcytosis 1+ Macrocytosis 1+ Sodium Level 124 L Potassium Level 4.0 Chloride Level 94 L Carbon Dioxide 21 Level Anion Gap 9 Blood Urea 70 H Nitrogen Creatinine 0.82 Est Glomerular > 60 Filtrat Rate mL/min Glucose Level 102 Calcium Level 7.0 L Phosphorus Level 4.3 Magnesium Level 1.9 Bedside Glucose 119 20 *L 16 *L Test 01/06/19 08:58 01/06/19 09:10 Bedside Glucose 275 H Sodium Level 123 L Potassium Level 3.8 Chloride Level 92 L Carbon Dioxide 19 L Level Anion Gap 12 Blood Urea 69 H Nitrogen Creatinine 0.85 Est Glomerular > 60 Filtrat Rate mL/min Glucose Level 225 #H Calcium Level 6.7 L Total Bilirubin 3.5 H Direct Bilirubin 2.10 #H Indirect Bilirubin 1.4 H Aspartate Amino 37 Transf (AST/SGOT) Alanine 32 Aminotransferase ( ALT/SGPT) Alkaline 103 Phosphatase Total Protein 4.0 L Albumin 1.6 L Globulin 2.40 Albumin/Globulin 0.66 Ratio Medications Medication Current Medications Glucose (Glutose) 15 gm Q15M PRN PO DECREASED GLUCOSE; Start 11/23/18 at 13:30 Glucose (Glutose) 22.5 gm Q15M PRN PO DECREASED GLUCOSE; Start 11/23/18 at 13:30 Dextrose (D50w Syringe) 25 ml Q15M PRN IV DECREASED GLUCOSE Last administered on 01/05/19 10:29; Admin Dose 25 ML; Start 11/23/18 at 13:30 Dextrose (D50w Syringe) 50 ml Q15M PRN IV DECREASED GLUCOSE Last administered on 01/06/19 08:22; Admin Dose 50 ML; Start 11/23/18 at 13:30 Glucagon (Glucagen) 1 mg Q15M PRN IM DECREASED GLUCOSE; Start 11/23/18 at 13:30 Glucose (Glutose) 15 gm Q15M PRN BUCCAL DECREASED GLUCOSE; Start 11/23/18 at 13:30 Albumin Human 100 ml @ 100 mls/hr DURING DIALYSIS PRN IV HYPOTENSION DURING HD Last administered on 01/03/19 21:52; Admin Dose 100 MLS/HR; Start 11/26/18 at 14:00 Collagenase (Santyl) 1 applic DAILY TOP Last administered on 01/06/19 08:24; Admin Dose 1 APPLIC; Start 12/01/18 at 16:30 Acetaminophen (Tylenol Liquid) 650 mg Q6H PRN NGT PAIN LEVEL 1-3 OR FEVER Last administered on 12/28/18 06:03; Admin Dose 650 MG; Start 12/06/18 at 09:00 Midodrine (Proamatine) 5 mg TID@09,13,17 GTB Last administered on 01/01/19 14:00; Admin Dose 5 MG; Start 12/07/18 at 09:00 Epoetin Margarito-epbx (RETACRIT(esrd)) 10,000 unit MoWeFr@1700 SC Last administered on 01/04/19 18:06; Admin Dose 10,000 UNIT; Start 12/11/18 at 17:00 Lorazepam (Ativan) 1 mg Q4H PRN IV AGITATION/ANXIETY Last administered on 12/19/18 05:41; Admin Dose 1 MG; Start 12/15/18 at 11:00 Morphine Sulfate (morphine) 1 mg Q4H PRN IV SEVERE PAIN LEVEL 7-10 Last administered on 01/04/19 08:23; Admin Dose 1 MG; Start 12/15/18 at 11:00 Metoclopramide HCl (Reglan) 5 mg Q8 IV Last administered on 01/06/19 05:56; A dmin Dose 5 MG; Start 12/17/18 at 12:00 Diltiazem HCl 125 ml @ 5 mls/hr TITRATE IV ; Start 12/29/18 at 09:30 Levothyroxine Sodium (Synthroid) 75 mcg BEFORE BREAKFAST GTB Last administered on 01/05/19 06:04; Admin Dose 75 MCG; Start 12/30/18 at 07:00 Albuterol (Ventolin Hfa) 4 puff Q4H RESP THERAPY PRN INH WHEEZING; Start 12/30/18 at 08:00 Caspofungin 50 mg/ Sodium Chloride 250 ml @ 250 mls/hr Q24H IVPB Last administered on 01/05/19 13:15; Admin Dose 250 MLS/HR; Start 12/31/18 at 13:00 Eye Lubricant (Akwa Oint) 1 applic Q6 BOTH EYES Last administered on 01/06/19 05:57; Admin Dose 1 APPLIC; Start 01/01/19 at 12:00 Eye Lubricant (Artificial Tears Oph) 2 drop Q6 BOTH EYES Last administered on 01/06/19 05:57; Admin Dose 2 DROP; Start 01/01/19 at 12:00 Norepinephrine 250 ml @ 1.875 mls/ hr TITRATE IV Last administered on 01/06/19 06:16; Admin Dose 1.875 MLS/HR; Start 01/01/19 at 11:30 Amiodarone HCl 100 ml @ 600 mls/hr DAILY IV Last administered on 01/06/19 08:22; Admin Dose 600 MLS/HR; Start 01/01/19 at 14:00 Diagnostic Test (Pha) (Accu-Chek) 1 ea Q4 XX Last administered on 5/29/19at 05:55; Admin Dose 1 EA; Start 01/02/19 at 09:00 Insulin Aspart (Novolog Insulin Pen) NOVOLOG *MILD* ALGORI... Q4 SC ; Start 01/02/19 at 13:00 Meropenem/Sodium Chloride 50 ml @ 100 mls/hr Q12H IVPB Last administered on 01/06/19at 01:18; Admin Dose 100 MLS/HR; Start 01/04/19 at 00:00 Clindamycin HCl/ Dextrose 50 ml @ 100 mls/hr Q8H IVPB Last administered on 01/06/19at 08:37; Admin Dose 100 MLS/HR; Start 01/04/19 at 01:00 Phenylephrine HCl 80 mg/Dextrose 250 ml @ 18.75 mls/ hr TITRATE PRN IV BLOOD PRESSURE SUPPORT Last administered on 01/06/19at 02:02; Admin Dose 37.5 MLS/HR; Start 01/05/19 at 11:00 Sodium Chloride 154 meq/Dextrose 1,038.5 ml @ 40 mls/hr Q24H IV Last administe red on 01/06/19at 11:04; Admin Dose 40 MLS/HR; Start 01/06/19 at 09:00 Miscellaneous Information (*Order Clarification Bulletin) MEDICATION REQUIRES CLARIFICATION:RI... Q8H XX ; Start 01/06/19 at 09:30 KELSIE ELY NP January 06, 2019 12:07
[2019-01-06] MEDS: CASPOFUNGIN 50 MG in SOD CHLORIDE 0.9% 250 ML IVPB SCH (13:15)
--- NOTE | 2019-01-06 14:10 | PN ---
Date/Time of Note Date/Time of Note DATE: 01/06/19 TIME: 14:09 Assessment/Plan VTE Prophylaxis Risk score (from Nsg)>0 risk: 9 SCD applied (from Ns): No SCD contraindicated: other (weeping wounds on skin) Pharmacological prophylaxis: NA/contraindicated Pharm contraindication: bleeding Lines/Catheters IV [facility]ter Type (from [email or web address] Mid Line Urinary Cath still in place: No Assessment/Plan Assessment/Plan A/P: 58 yo very cachectic woman with ESRD, questionable cirrhosis, DMII presents with hypoglycemia, leg infection. Suffered cardiac and respiratory arrest, recovered with good neurologic status however [facility] and is now s/p trach and PEG. #Severe protein-calorie malnutrition - has a picture of the patient from February 2018 when she was functional and well. She is very thin appearing at that time, but has more weight than currently. He reports she never had a problem with appetite or nausea until dialysis fistula surgery on left leg Sep 2018. - Since then, she's been eating small frequent meals, had occasional nausea. - Weight on admission 53 kg; today documented as 43 kg. - Now has G tube, but tube feeds not passing through and leaking around. - Possible mesenteric ischemia? Or other cause of ileus? - GI following. Will try restarting tube feeds again today. - High risk of candidemia from TPN. Will try to avoid this if possible. # Chronic respiratory failure: Treated for pneumonia earlier this admission as well as respiratory failure, status post trach placement earlier this admission as well. -Continue MV per pulm via trach, follow pulmonary recommendations, current antifungal and antibacterial medications -Continue to wean steroids off -For hypotension, continue pressor support and wean off as tolerated if possible # Left lower extremity wound: Per ID team there is also concern of a possible infected graft. Blood cultures from last month as well as wound culture from last month positive for Klebsiella, patient presently on clindamycin and merop enem now, as well as fluconazole. -Continue antibiotics indefinitely per ID # ESRD -For now continue HD per nephrology # Hypothyroidism: - Continue Synthroid # Anemia of CKD: Also thrombocytopenia, prior diagnosis of this secondary to HIT. 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 Per heme-onc this is likely a consumptive process occurring but resolution of her other problems would be the solution. Also lupus anticoagulant has been ordered. -Monitor CBC for now, follow-up further hematology oncology recommendations -Follow-up further labs ordered per hematology oncology team, status post IVIG administration 3 days ago as well -Per their note yesterday they may consider another administration of this today # Prophylaxis: SCDs Dispo: Again still in intensive care unit. As mentioned above bioethics meeting held 6 days ago, family was present during the meeting as well. Family agreed to chemical code only after bioethics meeting. Family is aware patient has very poor prognosis at this point in time. Critical care time spent on patient care today equals 45 minutes. Result Diagram: 01/06/19 0400 01/06/19 0910 Subjective 24 Hr Interval Summary Free Text/Dictation No acute overnight events. Spoke briefly to the patient's younger son at bedside today. Several hypoglycemic episodes overnight and this morning. Exam/Review of Systems Exam Vitals Vital Signs Date Temp Pulse Resp B/P (MAP) Pulse Ox O2 O2 Flow FiO2 Time Delivery Rate 01/06/19 79 20 75/47 (56) 100 13:15 01/06/19 Mechanical 13:00 Ventilator 01/06/19 97.8 12:00 01/06/19 40 09:45 Intake and Output 01/05/19 01/05/19 01/06/19 1515:00 23:00 07:00 IntakeIntake Total 1113.80 ml 610.05 ml 729.38 ml OutputOutput Total 0 ml 0 ml BalanceBalance 1113.80 ml 610.05 ml 729.38 ml Exam Gen: Very cachectic woman lying in bed, trached on vent. Awake, following commands. Eyes: Dry. No icterus. Open spontaneously, tracking. HEENT: Moist mucous membranes. Small white spots on buccal mucosa may be early candidiasis. Neck: Trach in place with thin secretions. Chest: Pacemaker pocket unremarkable. Card: Regular rate and rhythm, cannot appreciate murmurs. Pulm: On vent. mechanical breath sounds bilaterally Abd: G tube in place, clamped, site surrounded by ostomy bag but no leaking currently. Otherwise abdomen soft, scaphoid. Notable periumbilical mass. No bowel sounds. Ext: 3+ pitting edema throughout arms and legs. LLE femoral line. Skin: Several ecchymoses. Very fragile skin, arms and legs wrapped due to weeping wounds. Results Results 24hrs Laboratory Tests Test 01/05/19 17:23 01/05/19 21:42 01/06/19 01:23 01/06/19 04:00 Bedside Glucose 81 77 91 White Blood Count 7.3 # Red Blood Count 2.37 #L Hemoglobin 7.2 #L Hematocrit 19.9 #L Mean Corpuscular 84.0 Volume Mean Corpuscular 30.4 Hemoglobin Mean Corpuscular 36.2 Hemoglobin Concent Red Cell 13.5 Distribution Width Platelet Count 4 *L Mean Platelet Volume Immature 1.000 H Granulocytes % Neutrophils % Segmented 83 H Neutrophils % (Manual) Band Neutrophils % 9 H (Manual) Lymphocytes % Lymphocytes % 5 L (Manual) Reactive 1 H Lymphocytes % (Manual) Monocytes % Monocytes % 1 (Manual) Eosinophils % Eosinophils % 1 (Manual) Basophils % Nucleated Red 1 H Blood Cells % Immature 0.070 H Granulocytes # Neutrophils # Neutrophils # 6.1 (Manual) Band Neutrophils # 0.6 Lymphocytes 0.3 L (Manual) Lymphocytes # Reactive 0.0 Lymphocytes # Monocytes # Monocytes # 0.0 L (Manual) Eosinophils # Basophils # Nucleated Red Blood Cells # Toxic Granulation 1+ Platelet Estimate SIG DECREASED Giant Platelets 3 H Poikilocytosis 2+ Anisocytosis 2+ Microcytosis 1+ Macrocytosis 1+ Sodium Level 124 L Potassium Level 4.0 Chloride Level 94 L Carbon Dioxide 21 Level Anion Gap 9 Blood Urea 70 H Nitrogen Creatinine 0.82 Est Glomerular > 60 Filtrat Rate mL/min Glucose Level 102 Calcium Level 7.0 L Phosphorus Level 4.3 Magnesium Level 1.9 Test 01/06/19 05:36 01/06/19 08:17 01/06/19 08:45 01/06/19 08:58 Bedside Glucose 119 20 *L 16 *L 275 H Test 01/06/19 09:10 01/06/19 12:46 Sodium Level 123 L Potassium Level 3.8 Chloride Level 92 L Carbon Dioxide 19 L Level Anion Gap 12 Blood Urea 69 H Nitrogen Creatinine 0.85 Est Glomerular > 60 Filtrat Rate mL/min Glucose Level 225 #H Calcium Level 6.7 L Total Bilirubin 3.5 H Direct Bilirubin 2.10 #H Indirect Bilirubin 1.4 H Aspartate Amino 37 Transf (AST/SGOT) Alanine 32 Aminotransferase ( ALT/SGPT) Alkaline 103 Phosphatase Total Protein 4.0 L Albumin 1.6 L Globulin 2.40 Albumin/Globulin 0.66 Ratio Bedside Glucose 169 Medications Medication Current Medications Glucose (Glutose) 15 gm Q15M PRN PO DECREASED GLUCOSE; Start 11/23/18 at 13:30 Glucose (Glutose) 22.5 gm Q15M PRN PO DECREASED GLUCOSE; Start 11/23/18 at 13:30 Dextrose (D50w Syringe) 25 ml Q15M PRN IV DECREASED GLUCOSE Last administered on 01/05/19 10:29; Admin Dose 25 ML; Start 11/23/18 at 13:30 Dextrose (D50w Syringe) 50 ml Q15M PRN IV DECREASED GLUCOSE Last administered on 01/06/19 08:22; Admin Dose 50 ML; Start 11/23/18 at 13:30 Glucagon (Glucagen) 1 mg Q15M PRN IM DECREASED GLUCOSE; Start 11/23/18 at 13:30 Glucose (Glutose) 15 gm Q15M PRN BUCCAL DECREASED GLUCOSE; Start 11/23/18 at 13:30 Albumin Human 100 ml @ 100 mls/hr DURING DIALYSIS PRN IV HYPOTENSION DURING HD Last administered on 01/03/19 21:52; Admin Dose 100 MLS/HR; Start 11/26/18 at 14:00 Collagenase (Santyl) 1 applic DAILY TOP Last administered on 01/06/19 08:24; Admin Dose 1 APPLIC; Start 12/01/18 at 16:30 Acetaminophen (Tylenol Liquid) 650 mg Q6H PRN NGT PAIN LEVEL 1-3 OR FEVER Last administered on 12/28/18 06:03; Admin Dose 650 MG; Start 12/06/18 at 09:00 Midodrine (Proamatine) 5 mg TID@09,13,17 GTB Last administered on 01/01/19 14:00; Admin Dose 5 MG; Start 12/07/18 at 09:00 Epoetin Margarito-epbx (RETACRIT(esrd)) 10,000 unit MoWeFr@1700 SC Last administered on 01/04/19 18:06; Admin Dose 10,000 UNIT; Start 12/11/18 at 17:00 Lorazepam (Ativan) 1 mg Q4H PRN IV AGITATION/ANXIETY Last administered on 12/19/18 05:41; Admin Dose 1 MG; Start 12/15/18 at 11:00 Morphine Sulfate (morphine) 1 mg Q4H PRN IV SEVERE PAIN LEVEL 7-10 Last adm inistered on 01/04/19 08:23; Admin Dose 1 MG; Start 12/15/18 at 11:00 Metoclopramide HCl (Reglan) 5 mg Q8 IV Last administered on 01/06/19 13:11; Admin Dose 5 MG; Start 12/17/18 at 12:00 Diltiazem HCl 125 ml @ 5 mls/hr TITRATE IV ; Start 12/29/18 at 09:30 Levothyroxine Sodium (Synthroid) 75 mcg BEFORE BREAKFAST GTB Last administered on 01/05/19 06:04; Admin Dose 75 MCG; Start 12/30/18 at 07:00 Albuterol (Ventolin Hfa) 4 puff Q4H RESP THERAPY PRN INH WHEEZING; Start 12/30/18 at 08:00 Caspofungin 50 mg/ Sodium Chloride 250 ml @ 250 mls/hr Q24H IVPB Last administered on 01/06/19 13:15; Admin Dose 250 MLS/HR; Start 12/31/18 at 13:00 Eye Lubricant (Akwa Oint) 1 applic Q6 BOTH EYES Last administered on 01/06/19 12:42; Admin Dose 1 APPLIC; Start 01/01/19 at 12:00 Eye Lubricant (Artificial Tears Oph) 2 drop Q6 BOTH EYES Last administered on 01/06/19 12:42; Admin Dose 2 DROP; Start 01/01/19 at 12:00 Norepinephrine 250 ml @ 1.875 mls/ hr TITRATE IV Last administered on 01/06/19 06:16; Admin Dose 1.875 MLS/HR; Start 01/01/19 at 11:30 Amiodarone HCl 100 ml @ 600 mls/hr DAILY IV Last administered on 01/06/19 08:22; Admin Dose 600 MLS/HR; Start 01/01/19 at 14:00 Diagnostic Test (Pha) (Accu-Chek) 1 ea Q4 XX Last administered on 01/06/19 05:55; Admin Dose 1 EA; Start 01/02/19 at 09:00 Insulin Aspart (Novolog Insulin Pen) NOVOLOG *MILD* ALGORI... Q4 SC ; Start 01/02/19 at 13:00 Meropenem/Sodium Chloride 50 ml @ 100 mls/hr Q12H IVPB Last administered on 01/06/19at 12:41; Admin Dose 100 MLS/HR; Start 01/04/19 at 00:00 Clindamycin HCl/ Dextrose 50 ml @ 100 mls/hr Q8H IVPB Last administered on 01/06/19at 08:37; Admin Dose 100 MLS/HR; Start 01/04/19 at 01:00 Phenylephrine HCl 80 mg/Dextrose 250 ml @ 18.75 mls/ hr TITRATE PRN IV BLOOD PRESSURE SUPPORT Last administered on 01/06/19at 13:11; Admin Dose 56.25 MLS/HR; Start 01/05/19 at 11:00 Sodium Chloride 154 meq/Dextrose 1,038.5 ml @ 40 mls/hr Q24H IV Last administered on 01/06/19at 11:04; Admin Dose 40 MLS/HR; Start 01/06/19 at 09:00 Miscellaneous Information (*Order Clarification Bulletin) MEDICATION REQUIRES CLARIFICATION:CO... Q8H XX ; Start 01/06/19 at 09:30 SARAH ORTIZ MD January 06, 2019 14:10
--- NOTE | 2019-01-06 16:39 | PN ---
Date/Time of Note Date/Time of Note DATE: 12/25/18 TIME: 16:38 Assessment/Plan VTE Prophylaxis Risk score (from Nsg)>0 risk: 9 SCD applied (from Ns): Yes Pharmacological prophylaxis: heparin Lines/Catheters IV Catheter Type (from Nrsg): Mid Line Urinary Cath still in place: No Assessment/Plan Hospital Course On MV via trach, apears comfortable, interactive Chronically ill appearing Lungs clear Distended belly, firm masses, G tube in place Mild peripheral edema present LUE wound wrapped 58 yo female with ESRD, cirrohsihs, DMII presents with hypoglycemia, leg infection. Suffered cardiac and respiratory arrest, recovered with good neurologic status however was unable to be weaned from mechanical ventilation and is now s/p trach and PEG. Comfortable on MV chronically Chronic respiratory failure: - MV per pulm via trach Wean steroids off over the next few days Left lower extremity wound - Antibiotics indefniitely per ID ESRD - HD per nephrology Hypothyroidism: - Continue Synthroid Anemia of CKD: - Transfuse PRN Prophylaxis: SCDs DC planning: Ready for discharge to SNF Result Diagram: 01/06/19 0400 01/06/19 0910 Results 24hrs Laboratory Tests Test 01/05/19 17:23 01/05/19 21:42 01/06/19 01:23 01/06/19 04:00 Bedside Glucose 81 77 91 White Blood Count 7.3 # Red Blood Count 2.37 #L Hemoglobin 7.2 #L Hematocrit 19.9 #L Mean Corpuscular 84.0 Volume Mean Corpuscular 30.4 Hemoglobin Mean Corpuscular 36.2 Hemoglobin Concent Red Cell 13.5 Distribution Width Platelet Count 4 *L Mean Platelet Volume Immature 1.000 H Granulocytes % Neutrophils % Segmented 83 H Neutrophils % (Manual) Band Neutrophils % 9 H (Manual) Lymphocytes % Lymphocytes % 5 L (Manual) Reactive 1 H Lymphocytes % (Manual) Monocytes % Monocytes % 1 (Manual) Eosinophils % Eosinophils % 1 (Manual) Basophils % Nucleated Red 1 H Blood Cells % Immature 0.070 H Granulocytes # Neutrophils # Neutrophils # 6.1 (Manual) Band Neutrophils # 0.6 Lymphocytes 0.3 L (Manual) Lymphocytes # Reactive 0.0 Lymphocytes # Monocytes # Monocytes # 0.0 L (Manual) Eosinophils # Basophils # Nucleated Red Blood Cells # Toxic Granulation 1+ Platelet Estimate SIG DECREASED Giant Platelets 3 H Poikilocytosis 2+ Anisocytosis 2+ Microcytosis 1+ Macrocytosis 1+ Sodium Level 124 L Potassium Level 4.0 Chloride Level 94 L Carbon Dioxide 21 Level Anion Gap 9 Blood Urea 70 H Nitrogen Creatinine 0.82 Est Glomerular > 60 Filtrat Rate mL/min Glucose Level 102 Calcium Level 7.0 L Phosphorus Level 4.3 Magnesium Level 1.9 Test 01/06/19 05:36 01/06/19 08:17 01/06/19 08:45 01/06/19 08:58 Bedside Glucose 119 20 *L 16 *L 275 H Test 01/06/19 09:10 01/06/19 12:46 Sodium Level 123 L Potassium Level 3.8 Chloride Level 92 L Carbon Dioxide 19 L Level Anion Gap 12 Blood Urea 69 H Nitrogen Creatinine 0.85 Est Glomerular > 60 Filtrat Rate mL/min Glucose Level 225 #H Calcium Level 6.7 L Total Bilirubin 3.5 H Direct Bilirubin 2.10 #H Indirect Bilirubin 1.4 H Aspartate Amino 37 Transf (AST/SGOT) Alanine 32 Aminotransferase ( ALT/SGPT) Alkaline 103 Phosphatase Total Protein 4.0 L Albumin 1.6 L Globulin 2.40 Albumin/Globulin 0.66 Ratio Bedside Glucose 169 Subjective 24 Hr Interval Summary Free Text/Dictation Continues on MV HD given yesterday Exam/Review of Systems Exam Vitals Vital Signs Date Temp Pulse Resp B/P (MAP) Pulse Ox O2 O2 Flow FiO2 Time Delivery Rate 01/06/19 80 22 80/56 (64) 100 Mechanical 15:00 Ventilator 01/06/19 40 13:10 01/06/19 97.8 12:00 Intake and Output 01/05/19 01/05/19 01/06/19 1515:00 23:00 07:00 IntakeIntake Total 1113.80 ml 610.05 ml 729.38 ml OutputOutput Total 0 ml 0 ml BalanceBalance 1113.80 ml 610.05 ml 729.38 ml Results Results 24hrs Laboratory Tests Test 01/05/19 17:23 01/05/19 21:42 01/06/19 01:23 01/06/19 04:00 Bedside Glucose 81 77 91 White Blood Count 7.3 # Red Blood Count 2.37 #L Hemoglobin 7.2 #L Hematocrit 19.9 #L Mean Corpuscular 84.0 Volume Mean Corpuscular 30.4 Hemoglobin Mean Corpuscular 36.2 Hemoglobin Concent Red Cell 13.5 Distribution Width Platelet Count 4 *L Mean Platelet Volume Immature 1.000 H Granulocytes % Neutrophils % Segmented 83 H Neutrophils % (Manual) Band Neutrophils % 9 H (Manual) Lymphocytes % Lymphocytes % 5 L (Manual) Reactive 1 H Lymphocytes % (Manual) Monocytes % Monocytes % 1 (Manual) Eosinophils % Eosinophils % 1 (Manual) Basophils % Nucleated Red 1 H Blood Cells % Immature 0.070 H Granulocytes # Neutrophils # Neutrophils # 6.1 (Manual) Band Neutrophils # 0.6 Lymphocytes 0.3 L (Manual) Lymphocytes # Reactive 0.0 Lymphocytes # Monocytes # Monocytes # 0.0 L (Manual) Eosinophils # Basophils # Nucleated Red Blood Cells # Toxic Granulation 1+ Platelet Estimate SIG DECREASED Giant Platelets 3 H Poikilocytosis 2+ Anisocytosis 2+ Microcytosis 1+ Macrocytosis 1+ Sodium Level 124 L Potassium Level 4.0 Chloride Level 94 L Carbon Dioxide 21 Level Anion Gap 9 Blood Urea 70 H Nitrogen Creatinine 0.82 Est Glomerular > 60 Filtrat Rate mL/min Glucose Level 102 Calcium Level 7.0 L Phosphorus Level 4.3 Magnesium Level 1.9 Test 01/06/19 05:36 01/06/19 08:17 01/06/19 08:45 01/06/19 08:58 Bedside Glucose 119 20 *L 16 *L 275 H Test 01/06/19 09:10 01/06/19 12:46 Sodium Level 123 L Potassium Level 3.8 Chloride Level 92 L Carbon Dioxide 19 L Level Anion Gap 12 Blood Urea 69 H Nitrogen Creatinine 0.85 Est Glomerular > 60 Filtrat Rate mL/min Glucose Level 225 #H Calcium Level 6.7 L Total Bilirubin 3.5 H Direct Bilirubin 2.10 #H Indirect Bilirubin 1.4 H Aspartate Amino 37 Transf (AST/SGOT) Alanine 32 Aminotransferase ( ALT/SGPT) Alkaline 103 Phosphatase Total Protein 4.0 L Albumin 1.6 L Globulin 2.40 Albumin/Globulin 0.66 Ratio Bedside Glucose 169 Medications Medication Current Medications Glucose (Glutose) 15 gm Q15M PRN PO DECREASED GLUCOSE; Start 11/23/18 at 13:30 Glucose (Glutose) 22.5 gm Q15M PRN PO DECREASED GLUCOSE; Start 11/23/18 at 13:30 Dextrose (D50w Syringe) 25 ml Q15M PRN IV DECREASED GLUCOSE Last administered on 01/05/19 10:29; Admin Dose 25 ML; Start 11/23/18 at 13:30 Dextrose (D50w Syringe) 50 ml Q15M PRN IV DECREASED GLUCOSE Last administered on 01/06/19 08:22; Admin Dose 50 ML; Start 11/23/18 at 13:30 Glucagon (Glucagen) 1 mg Q15M PRN IM DECREASED GLUCOSE; Start 11/23/18 at 13:30 Glucose (Glutose) 15 gm Q15M PRN BUCCAL DECREASED GLUCOSE; Start 11/23/18 at 13:30 Albumin Human 100 ml @ 100 mls/hr DURING DIALYSIS PRN IV HYPOTENSION DURING HD Last administered on 01/03/19 21:52; Admin Dose 100 MLS/HR; Start 11/26/18 at 14:00 Collagenase (Santyl) 1 applic DAILY TOP Last administered on 01/06/19 08:24; Admin Dose 1 APPLIC; Start 12/01/18 at 16:30 Acetaminophen (Tylenol Liquid) 650 mg Q6H PRN NGT PAIN LEVEL 1-3 OR FEVER Last administered on 12/28/18 06:03; Admin Dose 650 MG; Start 12/06/18 at 09:00 Midodrine (Proamatine) 5 mg TID@09,13,17 GTB Last administered on 01/01/19 14:00; Admin Dose 5 MG; Start 12/07/18 at 09:00 Epoetin Margarito-epbx (RETACRIT(esrd)) 10,000 unit MoWeFr@1700 SC Last administered on 01/04/19 18:06; Admin Dose 10,000 UNIT; Start 12/11/18 at 17:00 Lorazepam (Ativan) 1 mg Q4H PRN IV AGITATION/ANXIETY Last administered on 12/19/18 05:41; Admin Dose 1 MG; Start 12/15/18 at 11:00 Morphine Sulfate (morphine) 1 mg Q4H PRN IV SEVERE PAIN LEVEL 7-10 Last administered on 01/04/19 08:23; Admin Dose 1 MG; Start 12/15/18 at 11:00 Metoclopramide HCl (Reglan) 5 mg Q8 IV Last administered on 01/06/19 13:11; Admin Dose 5 MG; Start 12/17/18 at 12:00 Diltiazem HCl 125 ml @ 5 mls/hr TITRATE IV ; Start 12/29/18 at 09:30 Levothyroxine Sodium (Synthroid) 75 mcg BEFORE BREAKFAST GTB Last administered on 01/05/19 06:04; Admin Dose 75 MCG; Start 12/30/18 at 07:00 Albuterol (Ventolin Hfa) 4 puff Q4H RESP THERAPY PRN INH WHEEZING; Start 12/30/18 at 08:00 Caspofungin 50 mg/ Sodium Chloride 250 ml @ 250 mls/hr Q24H IVPB Last administered on 01/06/19 13:15; Admin Dose 250 MLS/HR; Start 12/31/18 at 13:00 Eye Lubricant (Akwa Oint) 1 applic Q6 BOTH EYES Last administered on 01/06/19 12:42; Admin Dose 1 APPLIC; Start 01/01/19 at 12:00 Eye Lubricant (Artificial Tears Oph) 2 drop Q6 BOTH EYES Last administered on 01/06/19 12:42; Admin Dose 2 DROP; Start 01/01/19 at 12:00 Norepinephrine 250 ml @ 1.875 mls/ hr TITRATE IV Last administered on 06:16; Admin Dose 1.875 MLS/HR; Start 01/01/19 at 11:30 Amiodarone HCl 100 ml @ 600 mls/hr DAILY IV Last administered on 01/06/19 08:22; Admin Dose 600 MLS/HR; Start 01/01/19 at 14:00 Diagnostic Test (Pha) (Accu-Chek) 1 ea Q4 XX Last administered on 01/06/19 05:55; Admin Dose 1 EA; Start 01/02/19 at 09:00 Insulin Aspart (Novolog Insulin Pen) NOVOLOG *MILD* ALGORI... Q4 SC ; Start 12/10 12/27 at 13:00 Meropenem/Sodium Chloride 50 ml @ 100 mls/hr Q12H IVPB Last administered on 01/06/19 12:41; Admin Dose 100 MLS/HR; Start 01/04/19 at 00:00 Clindamycin HCl/ Dextrose 50 ml @ 100 mls/hr Q8H IVPB Last administered on 01/06/19 08:37; Admin Dose 100 MLS/HR; Start 01/04/19 at 01:00 Phenylephrine HCl 80 mg/Dextrose 250 ml @ 18.75 mls/ hr TITRATE PRN IV BLOOD PRESSURE SUPPORT Last administered on 01/06/19at 13:11; Admin Dose 56.25 MLS/HR; Start 01/05/19 at 11:00 Sodium Chloride 154 meq/Dextrose 1,038.5 ml @ 40 mls/hr Q24H IV Last administered on 01/06/19at 11:04; Admin Dose 40 MLS/HR; Start 01/06/19 at 09:00 Miscellaneous Information (*Order Clarification Bulletin) MEDICATION REQUIRES CLARIFICATION:UT... Q8H XX ; Start 01/06/19 at 09:30 JOLSYN LANDRUM MD January 06, 2019 16:39
[2019-01-06] MEDS: EPOETIN ALFA-EPBX (ESRD) 10,000 UNIT/ML VIAL SC SCH (17:29)
--- NOTE | 2019-01-06 19:29 | PN ---
Date/Time of Note Date/Time of Note DATE: 01/06/19 TIME: 19:28 Assessment/Plan Lines/Catheters IV Catheter Type (from Nrsg): Mid Line Moon in Place (from Nrsg): No Assessment/Plan Assessment/Plan Respiratory failure This post tracheostomy Trach site clean Bleeding We will continue vent support Pulmonary toilet Trach care Subjective 24 Hr Interval Summary Constitutional: improved Pain Control: mild Exam/Review of Systems Vital Signs Vitals Vital Signs Date Temp Pulse Resp B/P (MAP) Pulse Ox O2 O2 Flow FiO2 Time Delivery Rate 01/06/19 77 22 73/46 (55) 18:45 01/06/19 Mechanical 18:00 Ventilator 01/06/19 94 50 17:58 01/06/19 97.8 12:00 Intake and Output 01/05/19 01/05/19 01/06/19 1515:00 23:00 07:00 IntakeIntake Total 1113.80 ml 610.05 ml 729.38 ml OutputOutput Total 0 ml 0 ml BalanceBalance 1113.80 ml 610.05 ml 729.38 ml Exam Eyes: nl conjunctiva, EOMI, nl lids, nl sclera ENMT: nl external ears & nose, nl lips & teeth, nl nasal mucosa & septum, mucosa pink and moist Neck: supple, non-tender Respiratory: clear to auscultation, normal air movement Cardiovascular: regular rate and rhythm, nl pulses Gastrointestinal: soft, nl liver, spleen, non-tender Musculoskeletal: nl extremities to inspection, nl gait and stance Results Result Diagram: 01/06/19 0400 01/06/19 0910 TAE PAN MD January 06, 2019 19:29
[2019-01-06] MEDS ORDERED: VASOPRESSIN 60 UNIT in DEXTROSE 5% 57 ML IV SCH ×4 (20:00)
[2019-01-06] MEDS ORDERED: VASOPRESSIN 60 UNIT in DEXTROSE 5% 57 ML IV PRN (22:30)
[2019-01-07] VITALS (19 sets, daily range): BP systolic 61–78; BP diastolic 38–52; PULSE 0–131; RESP 13–28
[2019-01-07] MEDS: CLINDAMYCIN 600 MG/D5W (PMX) 50 ML IVPB SCH (00:37)
[2019-01-07] MEDS: INSULIN ASPART [NOVOLOG] 3 ML PEN SC SCH (00:56)
[2019-01-07] MEDS: ACCU-CHEK XX SCH (01:03)
[2019-01-07] MEDS ORDERED: morphine (DRIP) 100 MG/100 ML 100 ML IV SCH (02:00)
--- NOTE | 2019-01-07 19:43 | DES ---
Date/Time of Note Date/Time of Note DATE: 01/07/19 TIME: 19:32 Discharge/ Summary Admission/Discharge Info Admit Date/Time Nov 21, 2018 at 04:53 Date/Time January 07, 2019 Final Diagnosis Severe protein-calorie malnutrition Preliminary Cause of End stage cirrhosis Admit History This is a 58-year-old female with history of hypertension, hypothyroidism, pancytopenia, pacemaker, ESRD, ascites, bilateral pleural effusion and left leg infection with a history of recent graft. Patient was brought to the ER for altered mentation. Patient has a left upper leg infection and is status post g raft in September of this year. Patient was admitted recently for infected left leg at [facility] and was just discharged 2 days ago. Patient was noted to be altered an hour after she took Malinta. Upon arrival to the ER however, she was found to be hypotensive with a blood pressure of 77/55 and a severely hypoglycemic with a blood glucose of 24. She was given dextrose with improv ement in blood glucose. Her blood pressure also responded to IV fluid. While in the ER, patient became more appropriate. She has however been placed on BiPAP for hypercapnic respiratory failure. Patient was admitted here recently for sepsis. CT at that time shows large volume of loculated ascites with peritoneal calcifications secondary to chronic peritoneal dialysis. She underwent paracentesis with removal of 4.5 L of fluid. Patient was pancytopenic with severe thrombocytopenia. He was mentioned doc umentation that thrombocytopenia was thought to be possibly from HIT. Her chronic peritoneal dialysis was not removed because of the thrombocytopenia. Hospital Course On admission, blood cultures grew Klebsiella. She was continued on meropenem and fluconazole. Clindamycin was added later for suspicion of lower extremity graft infection. She remained on antibiotics throughout almost the whole hospital course. Hemodynamically, she was chronically hypotensive requiring IV pressors. The patient had chronic respiratory failure and had prolonged intubated. She got tracheostomy and was on the mechanical ventilator for almost all the hospital course. Notably, the patient had severe cachexia. She was so malnourished she had whole body edema and weeping skin lesions. G tube placement was attempted but feeds did not go through and instead spilled around the G tube. She stopped having bowel movements. This may have been due to severe ileus or mesenteric ischemia. Eventually the patient was made DNR after family discussion with palliative care. Pressor requirements continued to increase. Eventually family agreed to co mfort care; soon after starting morphine gtt patient went into asystole and . Pending Labs/Cultures Laboratory Tests Test 01/06/19 21:30 01/06/19 22:22 01/06/19 23:10 01/07/19 00:39 Bedside 43 61 117 186 Glucose mg/dL (70-220) mg/dL (70-220) mg/dL (70-220) mg/dL (70-220) SARAH ORTIZ MD January 07, 2019 19:42
== END 2019-01-07 03:19 | disposition expired | DRG 4 ==
LOC: E/R 02:16 → ICU 04:53 → TEL 12-17 17:30 → ICU 12-29 07:09
PROVIDERS: ADMIT Internal Medicine; ATTEND Internal Medicine
PROC: 5A09457 Assistance with Respiratory Ventilation, 24-96 Consecutive Hours, Continuous Positive Airway Pressure (ICD-10-PCS; 2018-11-21)
PROC: 06HY33Z Insertion of Infusion Device into Lower Vein, Percutaneous Approach (ICD-10-PCS; principal; 2018-11-22)
PROC: 5A1D70Z Performance of Urinary Filtration, Intermittent, Less than 6 Hours Per Day (ICD-10-PCS; 2018-11-22)
PROC: 5A1955Z Respiratory Ventilation, Greater than 96 Consecutive Hours (ICD-10-PCS; 2018-11-23)
PROC: 0BH17EZ Insertion of Endotracheal Airway into Trachea, Via Natural or Artificial Opening (ICD-10-PCS; 2018-11-23)
PROC: 5A12012 Performance of Cardiac Output, Single, Manual (ICD-10-PCS; 2018-11-23)
PROC: 30233R1 Transfusion of Nonautologous Platelets into Peripheral Vein, Percutaneous Approach (ICD-10-PCS; 2018-11-23)
PROC: 0W9G3ZZ Drainage of Peritoneal Cavity, Percutaneous Approach (ICD-10-PCS; 2018-11-25)
PROC: 05H533Z Insertion of Infusion Device into Right Subclavian Vein, Percutaneous Approach (ICD-10-PCS; 2018-11-25)
PROC: 30233N1 Transfusion of Nonautologous Red Blood Cells into Peripheral Vein, Percutaneous Approach (ICD-10-PCS; 2018-11-25)
PROC: 0BH18EZ Insertion of Endotracheal Airway into Trachea, Via Natural or Artificial Opening Endoscopic (ICD-10-PCS; 2018-12-07)
PROC: 0DH63UZ Insertion of Feeding Device into Stomach, Percutaneous Approach (ICD-10-PCS; 2018-12-09)
PROC: 0B110F4 Bypass Trachea to Cutaneous with Tracheostomy Device, Open Approach (ICD-10-PCS; 2018-12-14)
PROC: 5A1955Z Respiratory Ventilation, Greater than 96 Consecutive Hours (ICD-10-PCS; 2018-12-14)
PROC: 06HY33Z Insertion of Infusion Device into Lower Vein, Percutaneous Approach (ICD-10-PCS; 2018-12-29)
DX: A41.59 Other Gram-negative sepsis (principal); R65.21 Severe sepsis with septic shock; L89.153 Pressure ulcer of sacral region, stage 3; J96.01 Acute respiratory failure with hypoxia; J96.02 Acute respiratory failure with hypercapnia; N18.6 End stage renal disease; J18.9 Pneumonia, unspecified organism; E43 Unspecified severe protein-calorie malnutrition; K55.059 Acute (reversible) ischemia of intestine, part and extent unspecified; T85.79XA Infection and inflammatory reaction due to other internal prosthetic devices, implants and grafts, initial encounter; R18.8 Other ascites; R64 Cachexia; D61.818 Other pancytopenia; E87.0 Hyperosmolality and hypernatremia; I42.9 Cardiomyopathy, unspecified; E87.2 Acidosis; G93.49 Other encephalopathy; E87.1 Hypo-osmolality and hyponatremia; K56.7 Ileus, unspecified; I13.2 Hypertensive heart and chronic kidney disease with heart failure and with stage 5 chronic kidney disease, or end stage renal disease; D75.82 Heparin induced thrombocytopenia (HIT); E83.42 Hypomagnesemia; I48.91 Unspecified atrial fibrillation; E16.2 Hypoglycemia, unspecified; I73.9 Peripheral vascular disease, unspecified; R62.7 Adult failure to thrive; D64.9 Anemia, unspecified; E87.6 Hypokalemia; K74.60 Unspecified cirrhosis of liver; D63.1 Anemia in chronic kidney disease; E89.0 Postprocedural hypothyroidism; I25.10 Atherosclerotic heart disease of native coronary artery without angina pectoris; I46.9 Cardiac arrest, cause unspecified; L89.150 Pressure ulcer of sacral region, unstageable; I48.0 Paroxysmal atrial fibrillation; R13.10 Dysphagia, unspecified; H70.93 Unspecified mastoiditis, bilateral; J01.00 Acute maxillary sinusitis, unspecified; K94.29 Other complications of gastrostomy; Y83.9 Surgical procedure, unspecified as the cause of abnormal reaction of the patient, or of later complication, without mention of misadventure at the time of the procedure; K72.90 Hepatic failure, unspecified without coma; Y83.8 Other surgical procedures as the cause of abnormal reaction of the patient, or of later complication, without mention of misadventure at the time of the procedure; Z68.22 Body mass index [BMI] 22.0-22.9, adult; Z95.0 Presence of cardiac pacemaker; Z99.2 Dependence on renal dialysis
CPT/HCPCS: 31500; 36415; 36430; 36569; 36600; 70450; 71045; 74018; 76604; 76705; 76937; 80048; 80053; 82140; 82270; 82533; 82550; 82607; 82803; 82947; 82962; 83540; 83605; 83735; 84100; 84443; 84484; 85014; 85018; 85025; 85049; 85335; 85362; 85378; 85384; 85610; 85613; 85670; 85730; 86022; 86038; 86147; 86644; 86704; 86709; 86803; 86850; 86900; 86901; 86920; 86945; 87045; 87070; 87081; 87340; 89220; 90935; 92526; 92610; 92950; 93005; 93971; 94002; 94003; 94640; 94660; 94664; 94770; 96365; 96375; C1751; C1769; C9113; J0153; J0171; J0282; J1335; J1450; J1561; J1644; J1815; J2060; J2185; J2250; J2270; J2370; J2405; J2765; J2920; J2997; J3010; J3475; J3480; J7040; J7042; J7050; J7060; J7070; P9011; P9016; P9035; P9047; Q5105